=== PATIENT | male | born 1955 | race Hispanic/Latino ===

== ENCOUNTER 2018-10-05 11:48 | Emergency (ER) | payer BC, SELFPAY ==
[2018-10-05 13:26] LABS: Absolute Lymphocytes (CBC) 1.9 K/uL (0.7-4.9); Absolute Monocytes 0.8 K/uL (0.1-1.3); Absolute Neutrophil 6.3 K/uL (1.8-8.0); Basophils % 0.6 % (0-1.3); Eosinophils % 1.1 % (0-4.4); Hematocrit 43.4 % (39.6-49.0); Lymphocytes % 20.7 % (15.3-44.8); MCH 31.9 pg (27.0-35.0); MCV 93.5 fL (80-100); MPV 10.8 fL (7.6-11.3); Monocytes % 8.7 % (3.3-12.3); RBC Red Blood Cell Count 4.64 M/uL (4.33-5.43)
[2018-10-05 13:27] LABS: Protime INR 1.09
[2018-10-05] MEDS ORDERED: ASPIRIN 81 MG CHEWABLE TABLET ONE (13:33)
[2018-10-05] MEDS ORDERED: NITROGLYCERIN 0.4 MG/TAB SL ONE (13:34)
[2018-10-05 13:41] LABS: ALT/SGPT 29 U/L (12-78); AST/SGOT 14 U/L (15-37); Alkaline Phosphatase 82 U/L (45-117); BUN Blood Urea Nitrogen 13 mg/dL (7-18); Bicarbonate 25 mmol/L (21-32); Bilirubin Direct 0.1 mg/dL (0-0.2); Bilirubin Total 0.4 mg/dL (0.2-1.0); Glucose Level 119 mg/dL (74-106); Magnesium 2.2 mg/dL (1.8-2.4); NT PRO-BNP 11 pg/mL (<125); Protein, Total 7.2 g/dL (6.4-8.2); Sodium Level 139 mmol/L (136-145); Troponin (Emerg Dept Use Only) < 0.02 ng/mL (0.0-0.045)
--- NOTE | 2018-10-05 13:57 | RAD REPORT ---
EXAM DESCRIPTION: Daisy Single View10/05/2018 1:43 pm CLINICAL HISTORY: Chest pain COMPARISON: 2011 FINDINGS: The lungs appear clear of acute infiltrate. The heart is normal size IMPRESSION: No acute abnormalities displayed. If patient's symptoms persist PA and lateral chest se carmencita would be recommended
--- NOTE | 2018-10-05 14:14 | EKG ---
Test Date: 2018-10-05 Test Time: 11:57:56 Launderer Hand: FIORDALIZA MEASUREMENT RESULTS: Intervals: Rate: 94 VA: 150 QRSD: 90 QT: 344 QTc: 430 [place]: P: 38 VA: 150 QRS: 19 T: 14 INTERPRETIVE STATEMENTS: Normal sinus rhythm Normal ECG Compared to ECG 02/16/2011 11:51:46 No significant changes Electronically Signed On 10-05-18 14:13:25 FINANCIAL INVESTIGATOR by Charly Coy
--- NOTE | 2018-10-05 15:13 | RAD REPORT ---
EXAM DESCRIPTION: CT - Chest Angio - 10/05/2018 3:07 pm CLINICAL HISTORY: Chest pain. radiating to back;Chest pain COMPARISON: Chest Single View dated 10/05/2018; RAD CHEST PA AND LAT (2 VIEWS) dated 12/27/2013 TECHNIQUE: CT angiogram of the pulmonary arteries was performed with MIP. All CT scans are performed using dose optimization technique as appropriate and may include automated exposure control or mA/KV adjustment according to patient size. FINDINGS: No evidence of pulmonary thromboembolism. No acute aortic finding demonstrated. Mild COPD is seen with mild dependent interstitial pulmonary edema. No significant pericardial or pleural fluid. Mild thickening of the distal esophagus is present. No concerning bony finding. IMPRESSION: No evidence of pulmonary thromboembolism. Mild dependent interstitial pulmonary edema. Mild thickening of the esophagus is present which can be seen in esophagitis.
[2018-10-05] MEDS ORDERED: LIDOCAINE VISCOUS 2% SOLN 15 ML UDC ONE (16:42)
[2018-10-05] MEDS ORDERED: MAGNE/ALUM HYDROXD 30 ML UCUP ONE (16:42)
[2018-10-05] MEDS ORDERED: PANTOPRAZOLE 40 MG INJ ONE (16:42)
--- NOTE | 2018-10-05 17:22 | EDPHYS ---
Physician Documentation [facility] Name: John Moreno Age: 63 yrs Sex: Male : 1955 Arrival Date: 10/05/2018 Time: 11:52 Bed 27 Private MD: Rj Henry ED Physician Cooper Larios HPI: 10/05 13:05 This 63 yrs old Male presents to ER via Ambulatory with complaints of Chest cp Pain > 30 y/o. 13:05 The patient or guardian reports chest pain that is located primarily in the substernal cp area. Onset: this morning, at 04:00. The pain radiates to middle of mid to upper back. 13:05 The chest pain is described as discomfort. cp 13:05 Duration: The patient or guardian reports a single episode, that is still ongoing, but cp improving. Historical: - Allergies: 11:58 No Known Allergies; ph - PMHx: 11:58 Hyperlipidemia; Hypertension; ph - Immunization history:: Adult Immunizations up to date. - Social history:: Smoking status: Patient uses tobacco products, smokes one pack cigarettes per day. - Ebola Screening: : No symptoms or risks identified at this time. ROS: 13:10 Constitutional: Negative for body aches, chills, fever, poor PO intake. cp 13:10 Eyes: Negative for injury, pain, redness, and discharge. cp 13:10 ENT: Negative for drainage from ear(s), ear pain, sore throat, difficulty swallowing, difficulty handling secretions. 13:10 Neck: Negative for pain with movement, pain at rest, stiffness. 13:10 Cardiovascular: Positive for chest pain, Negative for edema, palpitations. 13:10 Respiratory: Negative for cough, shortness of breath, wheezing. 13:10 Abdomen/GI: Negative for abdominal pain, black/tarry stool, rectal bleeding. 13:10 Back: Positive for radiated pain, of the thoracic area, Negative for injury or acute deformity, decreased range of motion. 13:10 : Negative for urinary symptoms. 13:10 Skin: Negative for cellulitis, rash. 13:10 Neuro: Negative for altered mental status, headache, syncope, near syncope, weakness. 13:10 All other systems are negative. Exam: 12:05 ECG was reviewed by the Attending Physician. cp 13:15 Constitutional: The patient appears in no acute distress, alert, awake, cp non-diaphoretic, non-toxic, well developed, well nourished. 13:15 Head/Face: Normocephalic, atraumatic. Eyes: Pupils equal round and reactive to light, cp extra-ocular motions intact. Lids and lashes normal. Conjunctiva and sclera are non-icteric and not injected. Cornea within normal limits. Periorbital areas with no swelling, redness, or edema. ENT: Nares patent. No nasal discharge, no septal abnormalities noted. Tympanic membranes are normal and external auditory canals are clear. Oropharynx with no redness, swelling, or masses, exudates, or evidence of obstruction, uvula midline. Mucous membranes moist. Neck: Trachea midline, no thyromegaly or masses palpated, and no cervical lymphadenopathy. Supple, full range of motion without nuchal rigidity, or vertebral point tenderness. No Meningismus. Chest/axilla: Normal chest wall appearance and motion. Nontender with no deformity. No lesions are appreciated. 13:15 Cardiovascular: Rate: normal, Rhythm: regular, Pulses: Pulses are 2+ in right radial artery and left radial artery. Edema: is not appreciated, JVD: is not appreciated. 13:15 Respiratory: the patient does not display signs of respiratory distress, Respirations: normal, no use of accessory muscles, no retractions, no splinting, no tachypnea, labored breathing, is not present, Breath sounds: are clear throughout, no decreased breath sounds, no stridor, no wheezing. 13:15 Abdomen/GI: Inspection: abdomen appears normal, Bowel sounds: active, all quadrants, Palpation: abdomen is soft and non-tender, in all quadrants. 13:15 Back: pain, that is mild, of the left scapular area, right scapular area and thoracic area, ROM is normal. 13:15 Skin: cellulitis, is not appreciated, no rash present. Vital Signs: 11:59 BP 150 / 78; Pulse 93; Resp 18; Temp 98.3; Pulse Ox 98% on R/A; Weight 86.18 kg; Height ph 5 ft. 5 in. (165.10 cm); Pain 2/10; 13:31 BP 126 / 72 LA Sitting; Pulse 84; kr2 13:31 BP 146 / 72 RA Sitting; Pulse 85; kr2 14:31 BP 126 / 72; Pulse 75; Resp 15; Pulse Ox 96% on R/A; kr2 15:30 BP 153 / 86; Pulse 81; Resp 16; Pulse Ox 98% ; kr2 16:30 BP 131 / 74; Pulse 74; Resp 14; Pulse Ox 98% on R/A; kr2 18:30 BP 140 / 80; Pulse 78; Resp 18; Pulse Ox 99% on R/A; kr2 19:45 BP 136 / 78; Pulse 79; Resp 17; Pulse Ox 99% on R/A; kr2 11:59 Body Mass Index 31.62 (86.18 kg, 165.10 cm) ph MDM: 12:51 Patient medically screened. cp 17:30 The patient was given aspirin in the Emergency Department. cp 17:30 Counseling: I had a detailed discussion with the patient and/or guardian regarding: the cp historical points, exam findings, and any diagnostic results supporting the discharge/admit diagnosis, lab results, radiology results, the need for further work-up and treatment in the hospital. Physician consultation: Jose Sexton DO was contacted at 17:30, regarding admission, to the telemetry unit. patient's condition, and will see patient in ED, shortly. 17:55 Response to treatment: the patient's symptoms have markedly improved after treatment, cp Patient evaluated in ED by DR Sexton who is familiar with patient from private practice and requests repeat EKG and troponin level. If repeat testing returns negative, DR Sexton feels patient can have outpatient f/u. 19:13 Data reviewed: vital signs, nurses notes, lab test result(s), EKG. snw 19:14 ED course: awaiting repeat enzymes as pt is not inclined to be admitted. snw 10/05 13:00 Order name: Basic Metabolic Panel cp 10/05 13:00 Order name: CBC with Diff cp 10/05 13:00 Order name: LFT's cp 10/05 13:00 Order name: Magnesium cp 10/05 13:00 Order name: NT PRO-BNP cp 10/05 13:00 Order name: PT-INR cp 10/05 13:00 Order name: Troponin (emerg Dept Use Only) cp 10/05 13:32 Order name: CBC with Automated Diff; Complete Time: 14:48 EDMS 10/05 13:32 Order name: Protime (+INR); Complete Time: 14:48 EDMS 10/05 13:41 Order name: Basic Metabolic Panel; Complete Time: 14:48 EDMS 10/05 13:41 Order name: Liver (Hepatic) Function; Complete Time: 14:48 EDMS 10/05 13:41 Order name: Troponin (Emerg Dept Use Only); Complete Time: 14:48 EDMS 10/05 13:41 Order name: NT PRO-BNP; Complete Time: 14:48 EDMS 10/05 13:41 Order name: Magnesium; Complete Time: 14:48 EDMS 10/05 13:00 Order name: XRAY Chest (1 view) 10/05 13:00 Order name: EKG; Complete Time: 13:01 10/05 13:00 Order name: Cardiac monitoring; Complete Time: 13:58 cp 10/05 13:00 Order name: EKG - Nurse/Tech; Complete Time: 13:33 10/05 13:00 Order name: IV Saline Lock; Complete Time: 13:33 10/05 13:00 Order name: Labs collected and sent; Complete Time: 13:33 10/05 13:57 Order name: RAD; Complete Time: 14:48 EDMS 10/05 14:50 Order name: CT Chest Angio 10/05 15:14 Order name: CT; Complete Time: 16:15 EDNE 10/05 17:50 Order name: EKG; Complete Time: 17:51 cp 10/05 17:50 Order name: Troponin I 10/05 19:34 Order name: Troponin I; Complete Time: 19:36 EDNE 10/05 13:00 Order name: O2 Per Protocol; Complete Time: 13:33 cp 10/05 13:00 Order name: O2 Sat Monitoring; Complete Time: 13:34 cp 10/05 13:00 Order name: Blood Pressure Recheck: bilateral upper extremities; Complete Time: 13:33 cp 10/05 13:00 Order name: Misc. Order: bed rest; Complete Time: 13:33 10/05 17:50 Order name: EKG - Nurse/Tech; Complete Time: 19:01 cp EC:05 Rate is 94 beats/min. Rhythm is regular. RI interval is normal. QRS interval is normal. cp QT interval is normal. No ST changes noted. Interpreted by me. Reviewed by me. Administered Medications: 13:33 Drug: Aspirin Chewable Tablet 324 mg Route: PO; kr2 13:33 Not Given (Patient Refused): Nitroglycerin 0.4 mg Sublingual once kr2 16:40 Drug: ProTONIX 40 mg Route: IVP; Site: right antecubital; kr2 16:40 Drug: GI Cocktail without - (Maalox Suspension 30 ml, Lidocaine Liquid 2 % 15 kr2 ml) Route: PO; Disposition: 10/05/18 19:37 Discharged to Home. Impression: Chest pain, unspecified. - Condition is Stable. - Discharge Instructions: Nonspecific Chest Pain, Aspirin and Your Heart, Fat and Cholesterol Restricted Diet, [id number]. - Medication Reconciliation Form, Thank You Letter, Antibiotic Education, Prescription Opioid Use form. - Follow up: Rj Henry MD; When: 2 - 3 days; Reason: Recheck today's complaints, Continuance of care, Re-evaluation by your physician. Follow up: Emergency Department; When: As needed; Reason: Worsening of condition. Addendum: 10/07/2018 09:18 Co-signature as Attending Physician, Cooper Larios MD I agree with the assessment and k dr plan of care. Signatures: Dispatcher [employer] EDMS Cooper Larios MD MD [facility] Annette Smith FNP-C FNP-Susan Jarquin RN RN Chapo Almanzar PA PA Kaylyn Barba RN RN kr2 Corrections: (The following items were deleted from the chart) 10/05 19:37 17:21 Hospitalization Ordered by Jose Sexton DO for Observation. Preliminary snw diagnosis is Chest pain, unspecified. Bed requested for Telemetry/MedSurg (observation). Status is Observation. Condition is Stable. Problem is new. Symptoms have improved. UTI on Admission? No. cp 19:59 19:37 10/05/2018 19:37 Discharged to Home. Impression: Chest pain, unspecified. kr2 Condition is Stable. Forms are Medication Reconciliation Form, Thank You Letter, Antibiotic Education, Prescription Opioid Use. Follow up: Rj Henry; When: 2 - 3 days; Reason: Recheck today's complaints, Continuance of care, Re-evaluation by your physician. Follow up: Emergency Department; When: As needed; Reason: Worsening of condition. snw
--- NOTE | 2018-10-05 17:22 | ER ---
Nurse's Notes [facility] Name: John Moreno Age: 63 yrs Sex: Male : 1955 Arrival Date: 10/05/2018 Time: 11:52 Bed 27 Private MD: Rj Henry Diagnosis: Chest pain, unspecified Presentation: 10/05 11:58 Presenting complaint: Patient states: Chest pain that radiates to back that began at ph 0400 this morning, denies N/V or SOB, describes pain as "discomfort" rated 2/10. Transition of care: patient was not received from another setting of care. Onset of symptoms was October 05, 2018. Risk Assessment: Do you want to hurt yourself or someone else? Patient reports no desire to harm self or others. 11:58 Method Of Arrival: Ambulatory 11:58 Acuity: JEFFRY 3 ph 13:00 Initial Sepsis Screen: Does the patient meet any 2 criteria? No. Patient's initial kr2 sepsis screen is negative. Does the patient have a suspected source of infection? No. Patient's initial sepsis screen is negative. Care prior to arrival: None. Triage Assessment: 12:03 General: Appears in no apparent distress. uncomfortable, well groomed, Behavior is ph calm, cooperative, appropriate for age. Pain: Complains of pain in mid-sternal area Pain radiates to back Pain currently is 2 out of 10 on a pain scale. Neuro: Level of Consciousness is awake, alert, obeys commands, Oriented to person, place, time, situation. Cardiovascular: Reports chest pain, Denies lightheadedness, nausea, shortness of breath, Rhythm is sinus rhythm. Respiratory: Airway is patent Respiratory effort is even, unlabored. Historical: - Allergies: 11:58 No Known Allergies; ph - PMHx: 11:58 Hyperlipidemia; Hypertension; ph - Immunization history:: Adult Immunizations up to date. - Social history:: Smoking status: Patient uses tobacco products, smokes one pack cigarettes per day. - Ebola Screening: : No symptoms or risks identified at this time. Screenin:00 Abuse screen: Denies threats or abuse. Denies injuries from another. Nutritional kr2 screening: No deficits noted. Tuberculosis screening: No symptoms or risk factors identified. Fall Risk None identified. Assessment: 13:00 General: Appears in no apparent distress. uncomfortable, well groomed, well developed, kr2 well nourished, Behavior is calm, cooperative, appropriate for age. Pain: Complains of pain in chest and mid-sternal area Pain radiates to back Pain currently is 3 out of 10 on a pain scale. Quality of pain is described as pressure, squeezing, Pain began gradually, Is continuous, Alleviated by rest. Neuro: Level of Consciousness is awake, alert, obeys commands, Oriented to person, place, time, situation, Appropriate for age. Cardiovascular: Denies vomiting, Capillary refill < 3 seconds in bilateral fingers Patient's skin is warm and dry. Rhythm is regular. Respiratory: Airway is patent Respiratory effort is even, unlabored, Respiratory pattern is regular, symmetrical. GI: Abdomen is round non-distended. EENT: Oral mucosa is moist. Derm: Skin is intact, is healthy with good turgor, Skin is pink, warm \\T\\ dry. Musculoskeletal: Circulation, motion, and sensation intact. 13:15 Reassessment: Patient refused Nitroglycerin, provider notified. kr2 14:10 Reassessment: Patient appears in no apparent distress at this time. Patient and/or kr2 family updated on plan of care and expected duration. Pain level reassessed. Patient is alert, oriented x 3, equal unlabored respirations, skin warm/dry/pink. Patient states feeling better. 15:00 Reassessment: Patient appears in no apparent distress at this time. Patient and/or kr2 family updated on plan of care and expected duration. Pain level reassessed. Patient is alert, oriented x 3, equal unlabored respirations, skin warm/dry/pink. Patient states feeling better. 16:00 Reassessment: Patient appears in no apparent distress at this time. Patient and/or kr2 family updated on plan of care and expected duration. Pain level reassessed. Patient is alert, oriented x 3, equal unlabored respirations, skin warm/dry/pink. 17:00 Reassessment: Patient appears in no apparent distress at this time. Patient and/or kr2 family updated on plan of care and expected duration. Pain level reassessed. Patient is alert, oriented x 3, equal unlabored respirations, skin warm/dry/pink. Patient denies pain at this time. Patient states feeling better. 18:00 Reassessment: Patient appears in no apparent distress at this time. Patient and/or kr2 family updated on plan of care and expected duration. Pain level reassessed. Patient is alert, oriented x 3, equal unlabored respirations, skin warm/dry/pink. Patient denies pain at this time. Patient states feeling better. 19:15 Reassessment: Patient appears in no apparent distress at this time. Patient and/or kr2 family updated on plan of care and expected duration. Pain level reassessed. Patient is alert, oriented x 3, equal unlabored respirations, skin warm/dry/pink. Patient denies pain at this time. Patient states feeling better. Vital Signs: 11:59 BP 150 / 78; Pulse 93; Resp 18; Temp 98.3; Pulse Ox 98% on R/A; Weight 86.18 kg; Height ph 5 ft. 5 in. (165.10 cm); Pain 2/10; 13:31 BP 126 / 72 LA Sitting; Pulse 84; kr2 13:31 BP 146 / 72 RA Sitting; Pulse 85; kr2 14:31 BP 126 / 72; Pulse 75; Resp 15; Pulse Ox 96% on R/A; kr2 15:30 BP 153 / 86; Pulse 81; Resp 16; Pulse Ox 98% ; kr2 16:30 BP 131 / 74; Pulse 74; Resp 14; Pulse Ox 98% on R/A; kr2 18:30 BP 140 / 80; Pulse 78; Resp 18; Pulse Ox 99% on R/A; kr2 19:45 BP 136 / 78; Pulse 79; Resp 17; Pulse Ox 99% on R/A; kr2 11:59 Body Mass Index 31.62 (86.18 kg, 165.10 cm) ph ED Course: 11:52 Patient arrived in ED. sb2 11:52 Rj Henry MD is Private Physician. sb2 11:59 Triage completed. ph 12:00 Arm band placed on. Patient placed in waiting room, in view of staff members, Patient ph notified of wait time. EKG completed in triage. Results shown to MD. 12:51 Chapo Almanzar PA is PHCP. cp 12:51 Cooper Larios MD is Attending Physician. cp 13:00 Patient has correct armband on for positive identification. Bed in low position. Call kr2 light in reach. Side rails up X 1. Adult w/ patient. monitor car operator on. Pulse ox on. NIBP on. Door closed. Noise minimized. Head of bed elevated. 13:10 Inserted saline lock: 20 gauge in right antecubital area, using aseptic technique. kr2 Blood collected. Patient maintains SpO2 saturation greater than 95% on room air. 17:20 Jose Sexton DO is Hospitalizing Provider. cp 18:51 Kaylyn Hoang, RN is Primary Nurse. kr2 19:01 EKG done, by ED staff, reviewed by Cooper Larios MD. kr2 19:37 Rj Henry MD is Referral Physician. snw 19:45 No provider procedures requiring assistance completed. IV discontinued, intact, kr2 bleeding controlled, No redness/swelling at site. Pressure dressing applied. Administered Medications: 13:33 Drug: Aspirin Chewable Tablet 324 mg Route: PO; kr2 13:33 Not Given (Patient Refused): Nitroglycerin 0.4 mg Sublingual once kr2 16:40 Drug: ProTONIX 40 mg Route: IVP; Site: right antecubital; kr2 16:40 Drug: GI Cocktail without - (Maalox Suspension 30 ml, Lidocaine Liquid 2 % 15 kr2 ml) Route: PO; Outcome: 17:21 Decision to Hospitalize by Provider. cp 19:37 Discharge ordered by . snw 19:45 Discharged to home ambulatory, with family. kr2 19:45 Condition: stable 19:45 Discharge instructions given to patient, family, Instructed on discharge instructions, follow up and referral plans. Demonstrated understanding of instructions, follow-up care. 19:59 Patient left the ED. kr2 Signatures: Annette Smith, LISA-C MOHS SURGEON-CsnSusan Mello, RN RN ph Chapo Almanzar PA PA cp Kaylyn Hoang, RN RN kr2 Sherri Johnson2
--- NOTE | 2018-10-05 18:40 | P.CNS ---
Date of Consult: 10/05/18 Reason for Consult: ER evaluation Requesting Physician: Chapo Almanzar Primary Care Provider: Dr. Tovar Chief Complaint: Epigastric, sternal pain History of Present Illness: 63-year-old male presented emergency room with epigastric, sternal pain. The patient reports epigastric sternal pain that started about 5:00 a.m. this morning. This occurred whenever he woke up. The pain radiated to the back. He denied any significant nausea, vomiting, shortness of breath. He did report increased burping at that time. Patient with history of hypertension, hyperlipidemia, GERD, tobacco abuse and alcohol use. The patient came to the ER for further evaluation. In the ER patient evaluated. Initial EKG showed no significant EKG changes. CBC unremarkable. BMP unremarkable. Troponin within normal range. Chest x- ray unremarkable. CT chest showed no evidence of pulmonary embolism. Mild dependent interstitial pulmonary edema noted. Mild thickening of the esophagus was present likely esophagitis. I was consulted for possible admission. When I saw the patient in the ER, he appeared comfortable. He desired to go home. He does report that he smokes about 1 pack per date. He drinks occasionally. He has a poor diet including increased acidic products. Patient has seen GI in the past. He is taking Prilosec. He does report increased heartburn and burping. Allergies No Known Allergies Allergy (Verified 08/27/12 10:55) Home medications list reviewed: Yes - Past Medical/Surgical History -: Hypertension -: Hyperlipidemia -: GERD -: Anxiety -: Tobacco abuse -: Alcohol use Past Surgical History: Reviewed- Non-Contributory Psychosocial/ Personal History: Patient is - Family History Mother Family History: Reviewed- Non-Contributory - Social History Smoking Status: Heavy Tobacco smoker (>10 cigarettes/day) Counseled patient to stop smoking for: less than 10 minutes Smoking therapy provided: Yes Patient receptive to therapy: Yes Alcohol use: Yes CD- Drugs: No Caffeine use: Yes Place of Residence: Home Review of Systems General: As per HPI Eyes: Unremarkable ENT: Unremarkable Respiratory: Unremarkable Cardiovascular: As per HPI Gastrointestinal: As per HPI Genitourinary: Unremarkable Musculoskeletal: Unremarkable Integumentary: Unremarkable Neurological: Unremarkable Lymphatics: Unremarkable Physical Examination General: Alert, In no apparent distress, Oriented x3, Cooperative HEENT: Atraumatic, Normocephalic, PERRLA, Mucous membr. moist/pink Neck: Supple, No Thyromegaly Respiratory: Clear to auscultation bilaterally, Normal air movement Cardiovascular: Normal pulses, Regular rate/rhythm Gastrointestinal: Normal bowel sounds, Soft and benign, Non-distended, No ascites, No tenderness, No masses, No rebound, No guarding Musculoskeletal: No contractures, No erythema, No tenderness, No warmth Integumentary: No tenderness/swelling, No erythema, No warmth, No cyanosis Neurological: Normal speech, Normal strength at 5/5 x4 extr, Normal tone, Normal affect Laboratory Data (last 24 hrs) 10/05/18 13:10: PT 12.9 H, INR 1.09 10/05/18 13:10: WBC 9.2, Hgb 14.8, Hct 43.4, Plt Count 188 10/05/18 13:10: Sodium 139, Potassium 4.0, BUN 13, Creatinine 1.10, Glucose 119 H, Magnesium 2.2, Total Bilirubin 0.4, AST 14 L, ALT 29, Alkaline Phosphatase 82 Conclusions/Impression: Impression: Epigastric, sternal pain with noted evidence of esophagitis on CT scan likely underlying GERD Hypertension Hyperlipidemia Tobacco abuse Alcohol use Anxiety Plan: Patient seen and evaluated. Patient desires to be discharged from the emergency room and follow up as an outpatient. Will recheck troponin. If negative then the patient can be discharged home. Will recommend to discontinue Prilosec. Will recommend to continue with Protonix 40 mg 1 pill once daily. Patient will need to follow up with GI as an outpatient to further evaluate. He has seen GI in the past. Patient will likely require EGD to further assess. Dietary changes for GERD/reflux addressed in detail. Patient will need to refrain from alcohol and tobacco is well. I will also recommend that he follow up with cardiology within the next week. Patient should have cardiac workup as an outpatient. Patient may continue with his medication for hypertension, hyperlipidemia and anxiety. Case discussed in detail with ER provider. ER provider will recheck troponin. If negative will continue as above. Time Spent Managing Pts care (In Minutes): 55
[2018-10-05 20:19] VITALS: TEMP 98.3
[2018-10-05 20:24] VITALS: O2SAT 98
[2018-10-05 20:25] VITALS: BP 131/74
[2018-10-05] MEDS ORDERED: MORPHINE 4 MG/ML SYR IV PRN (21:15)
[2018-10-05] MEDS ORDERED: ACETAMINOPHEN 500 MG TAB PO PRN (21:15)
--- NOTE | 2018-10-06 08:28 | EKG ---
Test Date: 2018-10-05 Test Time: 18:58:26 Perianesthesia Rn: COLEEN MEASUREMENT RESULTS: Intervals: Rate: 72 OK: 166 QRSD: 98 QT: 378 QTc: 413 [place]: P: 38 OK: 166 QRS: 39 T: 26 INTERPRETIVE STATEMENTS: Normal sinus rhythm Normal ECG Compared to ECG 10/05/2018 11:57:56 No significant changes Electronically Signed On 10-06-18 08:28:10 STRING STUDIES DIRECTOR by Charly Coy
[2018-10-06] MEDS ORDERED: ASPIRIN EC 81 MG TAB PO SCH (09:00)
[2018-10-06] MEDS ORDERED: ENOXAPARIN 40 MG/0.4 ML SQ SCH (09:00)
[2018-10-06] MEDS ORDERED: METOPROLOL TAR 50 MG TAB PO SCH (09:00)
== END 2018-10-05 19:59 | disposition home or self-care (01) ==
LOC: ER 11:48 → ERHOLD 17:30 → UNDOADMOB 17:30
DX: R07.9 Chest pain, unspecified (principal); I10 Essential (primary) hypertension; F17.210 Nicotine dependence, cigarettes, uncomplicated
CPT/HCPCS: 36415; 71045; 71275; 80048; 80076; 83735; 83880; 84484; 85025; 85610; 93005; 96374; 99285; C9113; Q9967

== ENCOUNTER 2018-12-28 12:16 | Emergency (ER) | payer OTHER, SELFPAY ==
[2018-12-28 14:06] LABS: Absolute Lymphocytes (CBC) 1.4 K/uL (0.7-4.9); Absolute Neutrophil 3.5 K/uL (1.8-8.0); Basophils % 0.5 % (0-1.3); Eosinophils % 0.4 % (0-4.4); Hematocrit 47.8 % (39.6-49.0); MPV 10.3 fL (7.6-11.3); Monocytes % 13.2 % (3.3-12.3); RBC Red Blood Cell Count 5.15 M/uL (4.33-5.43)
[2018-12-28 14:07] LABS: Absolute Monocytes 0.8 K/uL (0.1-1.3)
[2018-12-28 14:29] LABS: Potassium 4.2 mmol/L (3.5-5.1)
--- NOTE | 2018-12-28 14:37 | RAD REPORT ---
EXAM DESCRIPTION: RAD - Chest Pa And Lat (2 Views) - 12/28/2018 2:16 pm CLINICAL HISTORY: Cough, fever, dyspnea COMPARISON: September 2018 TECHNIQUE: PA and lateral views of the chest were obtained. FINDINGS: The lungs are normal volume. No peripheral mass, consolidation or failure finding. Hilar r egions are similar to comparison. Patient has a baseline of chronic interstitial lung disease with th e pattern not clearly different from September 2018. Heart size is normal and central vasculature is within normal limits. No pleural effusion or pneumothorax seen. No acute bony finding noted. No a ortic abnormality. IMPRESSION: Chronic interstitial lung disease similar to September 2018. No acute findings seen.
[2018-12-28] MEDS ORDERED: ACETAMINOPHEN 500 MG TAB ONE (15:09)
[2018-12-28] MEDS ORDERED: ALBUTEROL 2.5 MG/3 ML NEB SOL ONE (15:09)
--- NOTE | 2018-12-28 15:33 | EDPHYS ---
Physician Documentation [facility] Name: John Moreno Age: 63 yrs Sex: Male : 1955 Arrival Date: 12/28/2018 Time: 12:18 Bed 15 Private MD: Rj Henry ED Physician Cooper Larios HPI: 12/28 14:46 This 63 yrs old Male presents to ER via Ambulatory with complaints of jr8 Weakness, Pain All Over. 15:28 Patient stated that for the past few days has had body aches and pain all over. Has had jr8 cough and congestion. Subjective fevers. Was seen by PCP and given allergy medicine, antibiotics, and cough medicine. Came to ED today for continued symptoms . Severity of symptoms: At their worst the symptoms were mild in the emergency department the symptoms are unchanged. It is unknown whether or not the patient has had similar symptoms in the past. The patient has been recently seen by a physician:. Historical: - Allergies: 12:31 No Known Allergies; aa5 - Home Meds: 12:31 atorvastatin 10 mg oral tab [Active]; losartan 50 mg oral tab [Active]; amlodipine 10 aa5 mg tab [Active]; omeprazole 40 mg Oral cpDR [Active]; methylprednisolone 4 mg Oral tab [Active]; cyclobenzaprine 10 mg Oral tab [Active]; indomethacin 50 mg Oral cap [Active]; cetirizine 10 mg oral tab [Active]; benzonatate 200 mg oral cap [Active]; azithromycin 250 mg oral tab [Active]; - PMHx: 12:31 Hyperlipidemia; Hypertension; aa5 - PSHx: 12:31 Hernia repair; aa5 - Immunization history:: Flu vaccine is not up to date. - Social history:: Smoking status: Patient uses tobacco products, smokes one pack cigarettes per day. - Ebola Screening: : No symptoms or risks identified at this time. ROS: 15:28 Eyes: Negative for injury, pain, redness, and discharge, ENT: Negative for injury, jr8 pain, and discharge, Neck: Negative for injury, pain, and swelling, Cardiovascular: Negative for chest pain, palpitations, and edema, Abdomen/GI: Negative for abdominal pain, nausea, vomiting, diarrhea, and constipation, Back: Negative for injury and pain, MS/Extremity: Negative for injury and deformity, Skin: Negative for injury, rash, and discoloration, Neuro: Negative for headache, weakness, numbness, tingling, and seizure. 15:28 Constitutional: Positive for body aches, chills, fever, malaise. 15:28 Respiratory: Positive for cough, Negative for shortness of breath, sputum production, wheezing. Exam: 15:28 Eyes: Pupils equal round and reactive to light, extra-ocular motions intact. Lids and jr8 lashes normal. Conjunctiva and sclera are non-icteric and not injected. Cornea within normal limits. Periorbital areas with no swelling, redness, or edema. ENT: Nares patent. No nasal discharge, no septal abnormalities noted. Tympanic membranes are normal and external auditory canals are clear. Oropharynx with no redness, swelling, or masses, exudates, or evidence of obstruction, uvula midline. Mucous membranes moist. Neck: Trachea midline, no thyromegaly or masses palpated, and no cervical lymphadenopathy. Supple, full range of motion without nuchal rigidity, or vertebral point tenderness. No Meningismus. Cardiovascular: Regular rate and rhythm with a normal S1 and S2. No gallops, murmurs, or rubs. Normal PMI, no JVD. No pulse deficits. Abdomen/GI: Soft, non-tender, with normal bowel sounds. No distension or tympany. No guarding or rebound. No evidence of tenderness throughout. Back: No spinal tenderness. No costovertebral tenderness. Full range of motion. Skin: Warm, dry with normal turgor. Normal color with no rashes, no lesions, and no evidence of cellulitis. MS/ Extremity: Pulses equal, no cyanosis. Neurovascular intact. Full, normal range of motion. Neuro: Awake and alert, GCS 15, oriented to person, place, time, and situation. Cranial nerves II-XII grossly intact. Motor strength 5/5 in all extremities. Sensory grossly intact. Cerebellar exam normal. Normal gait. 15:28 Respiratory: the patient does not display signs of respiratory distress, Respirations: normal, symetrical, no use of accessory muscles, no grunting, no evidence of nasal flaring, no prolonged exhalations, no pursed lip breathing, no retractions, no shallow respirations, no splinting, no tachypnea, Breath sounds: wheezing: expiratory that is moderate, is heard in the right posterior middle lobe and right posterior lower lobe. Vital Signs: 12:32 BP 146 / 88; Pulse 118; Resp 18 S; Temp 98.0(O); Pulse Ox 98% on R/A; Weight 83.91 kg aa5 (R); Height 5 ft. 4 in. (162.56 cm) (R); Pain 8/10; 13:30 BP 138 / 69; Pulse 95; Resp 18; Pulse Ox 98% on R/A; em 14:30 BP 130 / 80; Pulse 96; Resp 18; Pulse Ox 98% on R/A; em 15:40 BP 129 / 75; Pulse 88; Resp 16; Pulse Ox 100% on R/A; em 12:32 Body Mass Index 31.75 (83.91 kg, 162.56 cm) aa5 MDM: 13:35 Patient medically screened. [facility] 15:28 Data reviewed: vital signs, nurses notes, lab test result(s), EKG, radiologic studies, jr plain films. Data interpreted: Pulse oximetry: on room air is 98 %. Interpretation: normal. Counseling: I had a detailed discussion with the patient and/or guardian regarding: the historical points, exam findings, and any diagnostic results supporting the discharge/admit diagnosis, lab results, radiology results, the need for outpatient follow up, a family practitioner, to return to the emergency department if symptoms worsen or persist or if there are any questions or concerns that arise at home. 15:28 ED course: Patient already on antibiotics. Recently finished medrol dose pack as well. jr8 Will add inhaler for wheezing. No acute blood or image findings. 12/28 13:36 Order name: CBC with Diff [facility] 12/28 13:36 Order name: Basic Metabolic Panel [facility] 12/28 13:36 Order name: Influenza Screen (a \T\ B) [facility] 12/28 13:36 Order name: Blood Culture Adult (2) [facility] 12/28 14:17 Order name: CBC with Automated Diff; Complete Time: 14:26 EDMN 12/28 14:17 Order name: Influenza Screen (A ; Complete Time: 14:26 EDMS 12/28 13:36 Order name: IV; Complete Time: 13:45 [facility] 12/28 13:36 Order name: XRAY Chest Pa And Lat (2 Views) [facility] 12/28 13:38 Order name: EKG - Nurse/Tech; Complete Time: 14:26 jr8 12/28 13:38 Order name: EKG; Complete Time: 13:39 jr8 12/28 14:29 Order name: Basic Metabolic Panel; Complete Time: 14:39 EDMS 12/28 14:38 Order name: RAD; Complete Time: 14:39 EDMS Administered Medications: 15:03 Drug: Albuterol 2.5 mg Route: Inhalation; em 15:41 Follow up: Response: No adverse reaction em 15:03 Drug: Tylenol 1000 mg Route: PO; em 15:41 Follow up: Response: No adverse reaction em Disposition: 12/28/18 15:32 Discharged to Home. Impression: Acute bronchitis. - Condition is Stable. - Discharge Instructions: Acute Bronchitis, Adult. - Prescriptions for Albuterol Sulfate 90 mcg/actuation - inhale 1-2 puff by INHALATION route every 4-6 hours; 1 Inhaler. - Medication Reconciliation Form, Thank You Letter, Antibiotic Education, Prescription Opioid Use form. - Follow up: Rj Henry MD; When: 2 - 3 days; Reason: Recheck today's complaints, Continuance of care, Re-evaluation by your physician. - Problem is new. - Symptoms have improved. Addendum: 12/31/2018 07:14 Co-signature as Attending Physician, Cooper Larios MD I agree with the assessment and k dr plan of care. Signatures: Dispatcher [employer] [facility] Cooper Larios MD MD [facility] Juan J Aly, [employer] Adelita Dorado RN RN aa5 Derrick Srinivasan PA PA jr8 Corrections: (The following items were deleted from the chart) 12/28 16:02 15:32 12/28/2018 15:32 Discharged to Home. Impression: Acute bronchitis. Condition is em Stable. Forms are Medication Reconciliation Form, Thank You Letter, Antibiotic Education, Prescription Opioid Use. Follow up: Rj Henry; When: 2 - 3 days; Reason: Recheck today's complaints, Continuance of care, Re-evaluation by your physician. Problem is new. Symptoms have improved. jr8
--- NOTE | 2018-12-28 15:33 | ER ---
Nurse's Notes [facility] Name: John Moreno Age: 63 yrs Sex: Male : 1955 Arrival Date: 12/28/2018 Time: 12:18 Bed 15 Private MD: Rj Henry Diagnosis: Acute bronchitis Presentation: 12/28 12:28 Presenting complaint: Patient states: body aches, generalized weakness, productive aa5 cough that began Naresh. Pt also reports pain to RLQ. Pt reports he started taking azithromycin yesterday. Transition of care: patient was not received from another setting of care. 12:28 Method Of Arrival: Ambulatory aa5 12:28 Acuity: JEFFRY 3 aa5 12:28 Onset of symptoms was December 2018. Risk Assessment: Do you want to hurt yourself or aa5 someone else? Patient reports no desire to harm self or others. Care prior to arrival: None. 13:02 Initial Sepsis Screen: Does the patient meet any 2 criteria? HR > 90 bpm. Does the em patient have a suspected source of infection? Yes: Productive cough/pneumonia. Historical: - Allergies: 12:31 No Known Allergies; aa5 - Home Meds: 12:31 atorvastatin 10 mg oral tab [Active]; losartan 50 mg oral tab [Active]; amlodipine 10 aa5 mg tab [Active]; omeprazole 40 mg Oral cpDR [Active]; methylprednisolone 4 mg Oral tab [Active]; cyclobenzaprine 10 mg Oral tab [Active]; indomethacin 50 mg Oral cap [Active]; cetirizine 10 mg oral tab [Active]; benzonatate 200 mg oral cap [Active]; azithromycin 250 mg oral tab [Active]; - PMHx: 12:31 Hyperlipidemia; Hypertension; aa5 - PSHx: 12:31 Hernia repair; aa5 - Immunization history:: Flu vaccine is not up to date. - Social history:: Smoking status: Patient uses tobacco products, smokes one pack cigarettes per day. - Ebola Screening: : No symptoms or risks identified at this time. Screenin:02 Abuse screen: Denies threats or abuse. Nutritional screening: No deficits noted. em Tuberculosis screening: No symptoms or risk factors identified. Fall Risk None identified. Assessment: 13:02 General: Appears in no apparent distress. uncomfortable, Behavior is calm, cooperative, em Reports feeling ill for > 3 days, Denies fever. Pain: Complains of pain in "all over" Pain currently is 8 out of 10 on a pain scale. Quality of pain is described as aching, Pain began 4 days ago. Neuro: Level of Consciousness is awake, alert, obeys commands, Oriented to. Cardiovascular: Capillary refill < 3 seconds Patient's skin is warm and dry. Respiratory: Airway is patent Respiratory effort is even, unlabored, Breath sounds with wheezes in left posterior lower lobe. GI: Abdomen is round non-distended, Patient currently denies nausea, vomiting. Derm: Skin is intact, is healthy with good turgor, Skin is pink, warm \\T\\ dry. Musculoskeletal: Range of motion: intact in all extremities. 13:10 General: The previous assessment is accurate, call light remains within reach. ss 14:30 Reassessment: Patient appears in no apparent distress at this time. Patient and/or em family updated on plan of care and expected duration. Pain level reassessed. Patient is alert, oriented x 3, equal unlabored respirations, skin warm/dry/pink. 15:40 Reassessment: Patient appears in no apparent distress at this time. Patient and/or em family updated on plan of care and expected duration. Pain level reassessed. Patient is alert, oriented x 3, equal unlabored respirations, skin warm/dry/pink. Vital Signs: 12:32 BP 146 / 88; Pulse 118; Resp 18 S; Temp 98.0(O); Pulse Ox 98% on R/A; Weight 83.91 kg aa5 (R); Height 5 ft. 4 in. (162.56 cm) (R); Pain 8/10; 13:30 BP 138 / 69; Pulse 95; Resp 18; Pulse Ox 98% on R/A; em 14:30 BP 130 / 80; Pulse 96; Resp 18; Pulse Ox 98% on R/A; em 15:40 BP 129 / 75; Pulse 88; Resp 16; Pulse Ox 100% on R/A; em 12:32 Body Mass Index 31.75 (83.91 kg, 162.56 cm) aa5 ED Course: 12:18 Patient arrived in ED. as 12:19 Rj Henry MD is Private Physician. as 12:27 Arm band placed on. aa5 12:28 Triage completed. aa5 12:56 Derrick Srinivasan PA is PHCP. jr8 12:56 Cooper Larios MD is Attending Physician. jr8 12:57 Juan J Aly LVN is Primary Nurse. em 13:02 Patient has correct armband on for positive identification. Bed in low position. Call em light in reach. Side rails up X2. Adult w/ patient. Pulse ox on. NIBP on. 13:56 EKG done, by automobile glass technician. reviewed by Cooper Larios MD. at1 14:10 Patient moved to radiology via wheelchair. jb2 14:14 X-ray completed. Patient tolerated procedure well. Patient moved back from radiology. jb2 15:30 Initial lab(s) drawn, by me, sent to lab. Inserted saline lock: 20 gauge in right em antecubital area, using aseptic technique. Blood collected. 15:32 Rj Henry MD is Referral Physician. jr8 15:49 No provider procedures requiring assistance completed. IV discontinued, intact, em bleeding controlled, No redness/swelling at site. Pressure dressing applied. Administered Medications: 15:03 Drug: Albuterol 2.5 mg Route: Inhalation; em 15:41 Follow up: Response: No adverse reaction em 15:03 Drug: Tylenol 1000 mg Route: PO; em 15:41 Follow up: Response: No adverse reaction em Outcome: 15:32 Discharge ordered by MD. jr8 15:49 Discharged to home ambulatory, with family. em 15:49 Condition: good 15:49 Discharge instructions given to patient, family, Instructed on discharge instructions, follow up and referral plans. medication usage, Demonstrated understanding of instructions, follow-up care, medications, Prescriptions given X 1. 16:02 Patient left the ED. em Signatures: Arnaldo Carias jb2 Juan J Aly LVN LVN em Damaris Finley as Adelita Dorado RN RN aa5 Shantelle Darby RN RN ss Derrick Srinivasan PA PA jr8 Adrianne Hewitt, tab cutter EKG Tat1 Corrections: (The following items were deleted from the chart) 12:32 12:28 Presenting complaint: Patient states: body aches, generalized weakness, aa5 productive cough that began Naresh. Pt also reports pain to RLQ. aa5
[2018-12-28 16:45] VITALS: TEMP 98
[2018-12-28 16:51] VITALS: BP 129/75; O2SAT 100
== END 2018-12-28 16:02 | disposition home or self-care (01) ==
LOC: ER 12:16
DX: J20.9 Acute bronchitis, unspecified (principal); I10 Essential (primary) hypertension; E78.5 Hyperlipidemia, unspecified; F17.210 Nicotine dependence, cigarettes, uncomplicated
CPT/HCPCS: 36415; 71046; 80048; 85025; 87040; 87804; 93005; 99285

== ENCOUNTER 2019-03-02 16:14 | Emergency (ER) | payer OTHER ==
--- NOTE | 2019-03-02 16:35 | RAD REPORT ---
EXAM DESCRIPTION: CT - Ct Stroke Brain Wo Cont - 03/02/2019 4:26 pm CLINICAL HISTORY: Numbness COMPARISON: None. TECHNIQUE: Computed axial tomography of the head was obtained. Unenhanced and enhanced images obtain ed. 50 cc [id number]-[address] scans are performed using dose optimization technique as appropriate and may include automated exposure control or mA/KV adjustment according to patient size. FINDINGS: An intracranial bleed is not seen . The ventricles are normal in caliber. No extra-axial fluid collection is noted. No abnormal enhancement seen Fluid within the sinuses/ mastoids is not seen. IMPRESSION: No acute intracranial abnormality is seen. If patient's symptoms persist MRI of the bra in would be recommended. Dr. Bell notified 4:30 p.m. March 02, 2019
--- NOTE | 2019-03-02 16:40 | EDPHYS ---
Physician Documentation [facility] Name: John Moreno Age: 63 yrs Sex: Male : 1955 Arrival Date: 03/02/2019 Time: 16:14 Bed 7 Private MD: ED Physician Nemesio Bell HPI: 03/02 16:40 This 63 yrs old Male presents to ER via EMS with complaints of S/S of Possible rn Stroke. 16:40 The patient's problem is reported as a facial droop, on left, paresthesias, in left rn upper extremity, in left lower extremity, in left side of face, weakness, in the left upper extremity, in the left lower extremity, in the left side of face. Onset: The symptoms/episode began/occurred 1 hour(s) ago. Duration: The episode is continuous. The symptoms are alleviated by nothing. The symptoms are aggravated by nothing. Severity of symptoms: At their worst the symptoms were moderate in the emergency department the symptoms have improved. The patient has not experienced similar symptoms in the past. Reports sudden onset of left facial droop, left arm and leg numbness and weakness, slight improvement, but unable to walk per EMS due to left leg weakness, and symptoms have not resolved. No recent major trauma or procedure/surgery, no known hx of cerebral bleed. . Historical: - Allergies: 16:23 No Known Allergies; bp - Home Meds: 16:23 amlodipine 10 mg tab [Active]; atorvastatin 10 mg Oral tab [Active]; losartan 50 mg bp Oral tab [Active]; omeprazole 40 mg Oral cpDR [Active]; - PMHx: 16:23 Hyperlipidemia; Hypertension; bp - Immunization history:: Adult Immunizations up to date. - Social history:: Smoking status: Patient/guardian denies using tobacco. - Ebola Screening: : Patient negative for fever greater than or equal to 101.5 degrees Fahrenheit, and additional compatible Ebola Virus Disease symptoms Patient denies exposure to infectious person Patient denies travel to an Ebola-affected area in the 21 days before illness onset No symptoms or risks identified at this time. - Family history:: not pertinent. - Hospitalizations: : No recent hospitalization is reported. ROS: 16:40 Constitutional: Negative for fever, chills, and weight loss, Eyes: Negative for injury, rn pain, redness, and discharge, Neck: Negative for injury, pain, and swelling, Cardiovascular: Negative for chest pain, palpitations, and edema, Respiratory: Negative for shortness of breath, cough, wheezing, and pleuritic chest pain, Abdomen/GI: Negative for abdominal pain, nausea, vomiting, diarrhea, and constipation, MS/Extremity: Negative for injury and deformity, Skin: Negative for injury, rash, and discoloration, Neuro: negative for headache, + weakness and paresthesias Exam: 16:40 Radiologist reports: no acute findings rn 16:40 Constitutional: This is a well developed, well nourished patient who is awake, alert, appears anxious Head/Face: Normocephalic, atraumatic. Eyes: Pupils equal round and reactive to light, extra-ocular motions intact. Lids and lashes normal. Conjunctiva and sclera are non-icteric and not injected. Cornea within normal limits. Periorbital areas with no swelling, redness, or edema. ENT: MMM Cardiovascular: Tachycardic, regular, no murmur Respiratory: Lungs have equal breath sounds bilaterally, clear to auscultation and percussion. Abdomen/GI: soft, non-tender MS/ Extremity: Pulses equal, no cyanosis. Neurovascular intact. Full, normal range of motion. Equal circumference. Neuro: Awake and alert, GCS 15, oriented to person, place, time, and situation. + left lower mild facial droop, + left facial paresthesias. + LUE/LLE paresthesias without drift. Vital Signs: 16:15 BP 133 / 89; Pulse 119; Resp 18; Temp 98.6(TE); Pulse Ox 98% on R/A; Weight 84.37 kg; hj Height 5 ft. 5 in. (165.10 cm); 16:30 BP 150 / 87; Pulse 123; Resp 21; Pulse Ox 91% on R/A; bp 17:00 BP 144 / 88; Pulse 117; Resp 16; Pulse Ox 97% ; bp 17:55 BP 154 / 80; Pulse 17; Resp 16; Pulse Ox 92% ; bp 16:15 Body Mass Index 30.95 (84.37 kg, 165.10 cm) NIH Stroke Scale Scores: 16:18 NIHSS Score: 3 rn 16:26 NIHSS Score: 3 bp MDM: 16:16 Patient medically screened. 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 Code stroke activated when arrived, and if symptoms do not resolve, will plan to TPA. . 16:36 ED course: Spoke with patient and , they meet TPA criteria and consent, TPA rn ordered, also organizing transfer to [facility]. . 17:54 Differential diagnosis: CVA, TIA. Data reviewed: vital signs, nurses notes, lab test rn result(s), EKG, radiologic studies, and as a result, I will admit patient. Counseling: I had a detailed discussion with the patient and/or guardian regarding: the historical points, exam findings, and any diagnostic results supporting the discharge/admit diagnosis, lab results, radiology results, the need to transfer to another facility, for higher level of care, [facility] does not immediately have the required specialist. Response to treatment: the patient's symptoms have markedly improved after treatment, and as a result, I will admit patient. 03/02 16:18 Order name: Basic Metabolic Panel; Complete Time: 16:03/02 16:18 Order name: CBC with Diff; Complete Time: 16:03/02 16:18 Order name: Protime (+inr); Complete Time: 16:03/02 16:18 Order name: Ptt, Activated; Complete Time: :03/02 16:18 Order name: CT Stroke Brain w/o Contrast; Complete Time: 16:03/02 16:18 Order name: Stroke CXR 1 View; Complete Time: 16:59 03/02 16:18 Order name: EKG; Complete Time: 16:19 03/02 16:18 Order name: Accucheck; Complete Time: 16:03/02 16:18 Order name: Cardiac monitoring; Complete Time: 16:03/02 16:18 Order name: EKG - Nurse/Tech; Complete Time: 16:36 03/02 16:18 Order name: IV Saline Lock; Complete Time: 16:03/02 16:18 Order name: Labs collected and sent; Complete Time: 16:20 03/02 16:18 Order name: NPO; Complete Time: 16:03/02 16:18 Order name: O2 Per Protocol; Complete Time: 16:20 rn 03/02 16:18 Order name: O2 Sat Monitoring; Complete Time: 16:21 rn 03/02 16:18 Order name: Stroke Swallow Screen; Complete Time: 16:51 rn Administered Medications: 16:45 Drug: ACTIvase {Co-Signature: iw (Deepa Fontana RN).} Route: IV Thrombolytics; Rate: bp calculated rate; Infused Over: 60 mins; 17:54 Follow up: Response: Marked relief of symptoms bp 17:56 Follow up: Response: Marked relief of symptoms bp Point of Care Testing: Blood Glucose: 16:16 Blood Glucose: 107 mg/dL; hj Ranges: Critical Glucose Levels:Adult <50 mg/dl or >400 mg/dl <40 mg/dl or >180 mg/dl Disposition: 03/02/19 16:39 Transfer ordered to [facility]. Diagnosis are Weakness, Paresthesia of skin, Ischemic stroke. - Reason for transfer: Higher level of care. - Accepting physician is Dr. Bhagat. - Condition is Stable. - Problem is new. - Symptoms have improved. Critical care time excluding procedures: 17:54 Critical care time: Bedside Care: 25 minutes, Consultation: 5 minutes, Family rn Intervention: 5 minutes. Total time: 35 minutes NIH Stroke Scale - NIH Stroke Score Date: 03/02/2019 Time: 16:18 Total Score = 3 1a. Level of Consciousness (LOC) - 0(Alert) 1b. Level of Consciousness (LOC) (Year \T\ Age) - 0(Both) 1c. LOC Commands (Open \T\ Closes Eyes/Remote Encoding Operations Supervisor) - 0(Both) 2. Best Gaze (Lateral Gaze Paresis) - 0(Normal) 3. Visual Field Loss - 0(No visual loss) 4. Facial Palsy - 1(Minor Paralysis) 5a. Left Arm: Motor (10-second hold) - 0(No drift) 5b. Right Arm: Motor (10-second hold) - 0(No drift) 6a. Left Leg: Motor (5-second hold - always test supine) - 0(No drift) 6b. Right Leg: Motor (5-second hold - always test supine) - 0(No drift) 7. Limb Ataxia (finger/nose \T\ heel/faria - test with eyes open) - 0(Absent) 8. Sensory Loss (pinprick arms/legs/face) - 1(Mild to moderate loss) 9. Best Language: Aphasia (description/naming/reading) - 0(No aphasia) 10. Dysarthria (speech clarity - read or repeat words) - 1(Mild to Moderate) 11. Extinction and Inattention (visual/tactile/auditory/spatial/personal) - 0(No abnormality) Initials: kristopher NIH Stroke Scale - NIH Stroke Score Date: 03/02/2019 Time: 16:26 Total Score = 3 1a. Level of Consciousness (LOC) - 0(Alert) 1b. Level of Consciousness (LOC) (Year \T\ Age) - 0(Both) 1c. LOC Commands (Open \T\ Closes Eyes/Remote Encoding Operations Supervisor) - 0(Both) 2. Best Gaze (Lateral Gaze Paresis) - 0(Normal) 3. Visual Field Loss - 0(No visual loss) 4. Facial Palsy - 1(Minor Paralysis) 5a. Left Arm: Motor (10-second hold) - 1(Drift) 5b. Right Arm: Motor (10-second hold) - 0(No drift) 6a. Left Leg: Motor (5-second hold - always test supine) - 1(Drift) 6b. Right Leg: Motor (5-second hold - always test supine) - 0(No drift) 7. Limb Ataxia (finger/nose \T\ heel/faria - test with eyes open) - 0(Absent) 8. Sensory Loss (pinprick arms/legs/face) - 0(Normal) 9. Best Language: Aphasia (description/naming/reading) - 0(No aphasia) 10. Dysarthria (speech clarity - read or repeat words) - 0(Normal) 11. Extinction and Inattention (visual/tactile/auditory/spatial/personal) - 0(No abnormality) Initials: bp Signatures: Dispatcher [employer] EDNemesio Vides MD MD rn Peltier, Brian, RN RN bp Irene Williams RN iw Corrections: (The following items were deleted from the chart) 17:56 16:39 03/02/2019 16:39 Transfer ordered to [facility]. bp Diagnosis is Weakness; Paresthesia of skin; Ischemic stroke. Reason for transfer: Higher level of care. Accepting physician is Dr. Bhagat. Condition is Stable. Problem is new. Symptoms have improved. rn
--- NOTE | 2019-03-02 16:40 | ER ---
Nurse's Notes [facility] Name: John Moreno Age: 63 yrs Sex: Male : 1955 Arrival Date: 03/02/2019 Time: 16:14 Bed 7 Private MD: Diagnosis: Weakness;Paresthesia of skin;Ischemic stroke Presentation: 03/02 16:18 Presenting complaint: EMS states: LEFT SIDED WEAKNESS AFTER 1520. Transition of care: bp patient was not received from another setting of care. An acute neurological deficit is present. The charge nurse has been notified. The patient has been moved to a treatment area. The patients blood glucose was checked before arriving to the hospital and was found to be normal. Onset of symptoms was March 02, 2019 at 15:20. Risk Assessment: Do you want to hurt yourself or someone else? Patient reports no desire to harm self or others. Initial Sepsis Screen: Does the patient meet any 2 criteria? No. Patient's initial sepsis screen is negative. Does the patient have a suspected source of infection? No. Patient's initial sepsis screen is negative. Care prior to arrival: IV initiated. 20 GA, in the right antecubital area, Glucose check: 107. 16:18 Method Of Arrival: EMS: [facility] bp 16:18 Acuity: JEFFRY 1 bp Triage Assessment: 16:20 The onset of the patients symptoms was March 02, 2019 at 15:20. bp 16:20 General: Appears distressed, comfortable, Behavior is cooperative, appropriate for age, bp anxious. Pain: Denies pain. EENT: No deficits noted. Neuro: Reports paresthesias in LEFT FACE, LEFT ARM, LEFT LEG. Cardiovascular: Rhythm is sinus tachycardia. Respiratory: Airway is patent Respiratory effort is even, unlabored, Respiratory pattern is regular, symmetrical. GI: No signs and/or symptoms were reported involving the gastrointestinal system. : No signs and/or symptoms were reported regarding the genitourinary system. Derm: No deficits noted. Musculoskeletal: Range of motion: intact in all extremities. Stroke Activation: Symptom onset < 3 hours Physician: Stroke Attending; Name: ; Notified At: ; Arrived At: Physician: Chief Stroke Resident; Name: ; Notified At: ; Arrived At: Physician: Stroke Resident; Name: ; Notified At: ; Arrived At: Physician: ED Attending; Name: ; Notified At: ; Arrived At: Physician: ED Resident; Name: ; Notified At: ; Arrived At: Historical: - Allergies: 16:23 No Known Allergies; bp - Home Meds: 16:23 amlodipine 10 mg tab [Active]; atorvastatin 10 mg Oral tab [Active]; losartan 50 mg bp Oral tab [Active]; omeprazole 40 mg Oral cpDR [Active]; - PMHx: 16:23 Hyperlipidemia; Hypertension; bp - Immunization history:: Adult Immunizations up to date. - Social history:: Smoking status: Patient/guardian denies using tobacco. - Ebola Screening: : Patient negative for fever greater than or equal to 101.5 degrees Fahrenheit, and additional compatible Ebola Virus Disease symptoms Patient denies exposure to infectious person Patient denies travel to an Ebola-affected area in the 21 days before illness onset No symptoms or risks identified at this time. - Family history:: not pertinent. - Hospitalizations: : No recent hospitalization is reported. Screenin:26 Abuse screen: Denies threats or abuse. Denies injuries from another. Nutritional bp screening: No deficits noted. Tuberculosis screening: No symptoms or risk factors identified. Fall Risk Fall in past 12 months (25 points). Assessment: 16:26 VAN Scoring: Arm Drift: Minor drift Visual Disturbance: No visual disturbance noted. bp Aphasia: No aphasia noted. Neglect: No neglect noted. General: Appears distressed, comfortable, Behavior is cooperative, appropriate for age, anxious. Pain: Denies pain. Neuro: Level of Consciousness is awake, alert, obeys commands, Oriented to person, place, time, situation, Facial droop on left. Cardiovascular: Rhythm is sinus tachycardia. Respiratory: Airway is patent Respiratory effort is even, unlabored, Respiratory pattern is regular, symmetrical. GI: No signs and/or symptoms were reported involving the gastrointestinal system. : No signs and/or symptoms were reported regarding the genitourinary system. EENT: No deficits noted. Derm: No deficits noted. Musculoskeletal: Circulation, motion, and sensation intact. Range of motion: intact in all extremities. 16:30 The patient has not been NPO before screening. The patient is alert, and able to follow bp commands. The patient does not exhibit slurred or garbled speech. The patient is not exhibiting difficulty speaking. The patient does not exhibit difficulty understanding words. The patient is able to swallow own secretions with no drooling or need for suction. Patient tolerated one teaspoon of water. No drooling, immediate coughing, gurgling, or clearing of the throat was noted. The patient tolerated 90mL of water. No drooling, immediate coughing, gurgling, or clearing of the throat was noted. The patient passed the bedside swallow screening. Oral medications may be given as ordered. Contact Physician for further diet orders. Provider notified of bedside swallow screening results: Nemesio Bell MD. T-PA (Activase) Screening: Indications: Definite evidence of stroke, ischemic, embolic, or hypertensive: Yes. Treatment will start within 4.5 hours onset of symptoms: Yes. No evidence of intracranial hemorrhage or CT of head and no evidence of peripheral hemorrhage or recent CVA: Yes. Consent for thrombolytic therapy: Yes. 17:00 Reassessment: REPORT TO LM PECK AT [facility], TRANSPORT PENDING. bp 17:54 Reassessment: [facility] AT /, PT TRANSPORT [facility]ON[facility] WITH EMS. bp Vital Signs: 16:15 BP 133 / 89; Pulse 119; Resp 18; Temp 98.6(TE); Pulse Ox 98% on R/A; Weight 84.37 kg; hj Height 5 ft. 5 in. (165.10 cm); 16:30 BP 150 / 87; Pulse 123; Resp 21; Pulse Ox 91% on R/A; bp 17:00 BP 144 / 88; Pulse 117; Resp 16; Pulse Ox 97% ; bp 17:55 BP 154 / 80; Pulse 17; Resp 16; Pulse Ox 92% ; bp 16:15 Body Mass Index 30.95 (84.37 kg, 165.10 cm) NIH Stroke Scale Scores: 16:18 NIHSS Score: 3 rn 16:26 NIHSS Score: 3 bp ED Course: 16:14 Patient arrived in ED. 16:16 Nemesio Bell MD is Attending Physician. rn 16:20 Triage completed. bp 16:20 Arm band placed on. bp 16:25 CT Stroke Brain w/o Contrast In Process Unspecified. EDMS 16:26 Patient has correct armband on for positive identification. Bed in low position. Call bp light in reach. Side rails up X2. 16:32 transfer initiated with Kathe at the [facility] transfer center. eb 16:35 EKG done, by ED staff, reviewed by Nemesio Bell MD. hj 16:35 Maintain EMS IV. Dressing intact. Good blood return noted. Site clean \T\ dry. Gauge \T\ bp site: 20 GAUGE R AC. 16:[address] Olmedo the neurologist blown film extrusion operator for [facility] with Dr. Bell for eb patient transfer consultation. 16:40 X-ray completed. Portable x-ray completed in exam room. Patient tolerated procedure tm4 well. 16:40 Inserted saline lock: 22 gauge in left antecubital area, using aseptic technique. hj 16:41 Stroke CXR 1 View In Process Unspecified. EDMS 16:44 administrative approval given by Kathe Miller RN from the [facility]/ Dr. Bhagat has accepted the patient in transfer to [facility]/ patient is going to [address] [place] [address] bed 15/ report to be called [phone]. 16:[address] RN is Primary Nurse. bp 17:09 No provider procedures requiring assistance completed. Patient transferred, IV remains bp in place. Administered Medications: 16:45 Drug: ACTIvase {Co-Signature: iw (Deepa Fontana RN).} Route: IV Thrombolytics; Rate: bp calculated rate; Infused Over: 60 mins; 17:54 Follow up: Response: Marked relief of symptoms bp 17:56 Follow up: Response: Marked relief of symptoms bp Point of Care Testing: Blood Glucose: 16:16 Blood Glucose: 107 mg/dL; hj Ranges: Outcome: 16:39 ER care complete, transfer ordered by rn 17:08 Transferred by ground EMS to [facility], Transfer form completed. bp 17:08 Condition: stable 17:08 Instructed on the need for transfer. 17:56 Patient left the ED. bp NIH Stroke Scale - NIH Stroke Score Date: 03/02/2019 Time: 16:18 Total Score = 3 1a. Level of Consciousness (LOC) - 0(Alert) 1b. Level of Consciousness (LOC) (Year \T\ Age) - 0(Both) 1c. LOC Commands (Open \T\ Closes Eyes/Broom Machine Operator) - 0(Both) 2. Best Gaze (Lateral Gaze Paresis) - 0(Normal) 3. Visual Field Loss - 0(No visual loss) 4. Facial Palsy - 1(Minor Paralysis) 5a. Left Arm: Motor (10-second hold) - 0(No drift) 5b. Right Arm: Motor (10-second hold) - 0(No drift) 6a. Left Leg: Motor (5-second hold - always test supine) - 0(No drift) 6b. Right Leg: Motor (5-second hold - always test supine) - 0(No drift) 7. Limb Ataxia (finger/nose \T\ heel/faria - test with eyes open) - 0(Absent) 8. Sensory Loss (pinprick arms/legs/face) - 1(Mild to moderate loss) 9. Best Language: Aphasia (description/naming/reading) - 0(No aphasia) 10. Dysarthria (speech clarity - read or repeat words) - 1(Mild to Moderate) 11. Extinction and Inattention (visual/tactile/auditory/spatial/personal) - 0(No abnormality) Initials: kristopher NIH Stroke Scale - NIH Stroke Score Date: 03/02/2019 Time: 16:26 Total Score = 3 1a. Level of Consciousness (LOC) - 0(Alert) 1b. Level of Consciousness (LOC) (Year \T\ Age) - 0(Both) 1c. LOC Commands (Open \T\ Closes Eyes/Broom Machine Operator) - 0(Both) 2. Best Gaze (Lateral Gaze Paresis) - 0(Normal) 3. Visual Field Loss - 0(No visual loss) 4. Facial Palsy - 1(Minor Paralysis) 5a. Left Arm: Motor (10-second hold) - 1(Drift) 5b. Right Arm: Motor (10-second hold) - 0(No drift) 6a. Left Leg: Motor (5-second hold - always test supine) - 1(Drift) 6b. Right Leg: Motor (5-second hold - always test supine) - 0(No drift) 7. Limb Ataxia (finger/nose \T\ heel/faria - test with eyes open) - 0(Absent) 8. Sensory Loss (pinprick arms/legs/face) - 0(Normal) 9. Best Language: Aphasia (description/naming/reading) - 0(No aphasia) 10. Dysarthria (speech clarity - read or repeat words) - 0(Normal) 11. Extinction and Inattention (visual/tactile/auditory/spatial/personal) - 0(No abnormality) Initials: bp Signatures: Dispatcher [employer] EDMS DumontYanci [id number] Nemesio Bell MD MD rn Joaquin, Henry, RN RN hj Peltier, Brian, RN RN bp Botello, Elizabeth eb Irene Williams RN iw Corrections: (The following items were deleted from the chart) 16:17 16:15 BP 133 / 89; Pulse 119bpm; Resp 18bpm; Pulse Ox 98% RA; Temp 98.6F hj Temporal; hj
[2019-03-02 16:42] LABS: Absolute Lymphocytes (CBC) 2.7 K/uL (0.7-4.9); Absolute Monocytes 0.8 K/uL (0.1-1.3); Absolute Neutrophil 6.6 K/uL (1.8-8.0); Basophils % 0.3 % (0-1.3); Eosinophils % 0.9 % (0-4.4); Hematocrit 43.6 % (39.6-49.0); MPV 10.7 fL (7.6-11.3); Monocytes % 8.2 % (3.3-12.3); RBC Red Blood Cell Count 4.72 M/uL (4.33-5.43)
[2019-03-02 16:46] LABS: Protime INR 1.05
[2019-03-02] MEDS ORDERED: ALTEPLASE 100 ML IV ONE (16:50)
[2019-03-02 16:52] LABS: Potassium 4.2 mmol/L (3.5-5.1)
--- NOTE | 2019-03-02 16:56 | RAD REPORT ---
EXAM DESCRIPTION: Daisy Single View03/02/2019 4:43 pm CLINICAL HISTORY: Chest pain COMPARISON: December 2017 FINDINGS: The lungs appear clear of acute infiltrate. The heart is normal size IMPRESSION: No acute abnormalities displayed
[2019-03-02 18:05] VITALS: TEMP 98.6
[2019-03-02 18:08] VITALS: BP 154/80; O2SAT 92
--- NOTE | 2019-03-03 07:49 | EKG ---
Test Date: 2019-03-02 Test Time: 16:30:58 Director Quality Systems: CONSTANTINE MEASUREMENT RESULTS: Intervals: Rate: 124 WY: 148 QRSD: 92 QT: 312 QTc: 448 [place]: P: WY: 148 QRS: 145 T: 160 INTERPRETIVE STATEMENTS: Sinus tachycardia Left posterior fascicular block Cannot rule out Inferior infarct, age undetermined Abnormal ECG Compared to ECG 12/28/2018 13:47:17 Left posterior fascicular block now present Myocardial infarct finding now present Sinus rhythm no longer present Electronically Signed On 03-03-19 07:46:54 CDT by Daryl Aviles
== END 2019-03-02 17:56 | disposition short-term general hospital (02) ==
LOC: ER 16:14
DX: I63.9 Cerebral infarction, unspecified (principal); I10 Essential (primary) hypertension; R29.703 NIHSS score 3; E78.5 Hyperlipidemia, unspecified
CPT/HCPCS: 36415; 70450; 71045; 80048; 85025; 85610; 85730; 92977; 93005; 99285; J2997

== ENCOUNTER 2019-03-08 12:22 | Emergency (ER) | payer OTHER ==
--- OUTSIDE RECORDS SUMMARY | 2019-03-08 12:25 | XMS REPORT | Clinical Summary ---
:1955 Author Organization [facility] Address [address] [place] [address] Care Team Providers Name Role Phone SantanaRj lou Barbymayte Primary Care Provider Allergies No Known Allergies Medications Medication Sig Dispensed Refills Start Date End Date Status losartan (COZAAR) 50 Take 50 mg by 0 Active MG tablet mouth daily. amLODIPine-atorvastati Take 1 tablet by 0 Active n (CADUET) 10-10 mg mouth daily. per tablet aspirin 81 MG chewable Take 1 tablet 90 tablet 3 03/05/2019 03/04/2020 Active tablet (81 mg total) by mouth daily. atorvastatin (LIPITOR) Take 1 tablet 90 tablet 3 03/04/2019 03/03/2020 Active 40 MG tablet (40 mg total) by mouth nightly. Active Problems Problem Noted Date Stroke (cerebrum) 03/02/2019 Encounters Date Type Specialty Care Team Description 03/02/2019 - Hospital Encounter Intensive Care Philip Bhagat Acute ischemic stroke (HCC); 03/04/2019 MD Samuel Received tissue plasminogen activator (t-PA) less than 24 hours prior to arrival 03/02/2019 Travel after 03/07/2018 Social History Tobacco Use Types Packs/Day Years Used Date Former Smoker Quit: 12/28/2018 Smokeless Tobacco: Former User Alcohol Use Drinks/Week oz/Week Comments No quit 2 months ago Alcohol Habits Answer Date Recorded How often do you have a drink containing alcohol? Never 03/02/2019 How many drinks containing alcohol do you have on a typical Not asked day when you are drinking? How often do you have six or more drinks on one occasion? Not asked Sex Assigned at Date Recorded Not on file Job Start Date Occupation Industry Not on file Not on file Not on file Travel History Travel Start Travel End No recent travel history available. Last Filed Vital Signs Vital Sign Reading Time Taken Blood Pressure 130/90 03/04/2019 5:00 PM CDT Pulse 102 03/04/2019 5:00 PM CDT Temperature 36.7 C (98 F) 03/04/2019 4:00 PM CDT Respiratory Rate 17 03/04/2019 5:00 PM CDT Oxygen Saturation 97% 03/04/2019 4:00 PM CDT Inhaled Oxygen Concentration - - Weight 81.4 kg (179 lb 7.3 oz) 03/02/2019 7:15 PM CDT Height 165.1 cm (5' 5") 03/02/2019 7:15 PM CDT Body Mass Index 29.86 03/02/2019 7:15 PM CDT Plan of Treatment Not on file Procedures Procedure Name Priority Date/Time Associated Comments Diagnosis RHYTHM STRIP - SCAN 03/06/2019 11:20 AM CDT ECHOCARDIOGRAM REPORT - 03/04/2019 9:20 SCAN PM CDT 2D ECHO W/ DOPPLER STAT 03/04/2019 12:52 Results for this (CW/PW/COLOR) PM CDT procedure are in the results section. MR MRA NECK WITHOUT IV Routine 03/03/2019 4:12 Results for this CONTRAST PM CDT procedure are in the results section. MR MRA HEAD WITHOUT Routine 03/03/2019 4:12 Results for this CONTRAST PM CDT procedure are in the results section. MR BRAIN WITHOUT IV Routine 03/03/2019 4:12 Results for this CONTRAST PM CDT procedure are in the results section. CBC W/PLT COUNT & AUTO Routine 03/03/2019 3:35 Results for this DIFFERENTIAL AM CDT procedure are in the results section. BASIC METABOLIC PANEL Routine 03/03/2019 3:35 Results for this (7) AM CDT procedure are in the results section. CBC W/PLT COUNT & AUTO Routine 03/03/2019 3:35 Results for this DIFFERENTIAL AM CDT procedure are in the results section. LIPID PANEL Routine 03/03/2019 3:35 Results for this AM CDT procedure are in the results section. CBC W/PLT COUNT & AUTO Routine 03/02/2019 8:12 Results for this DIFFERENTIAL PM CDT procedure are in the results section. CBC W/PLT COUNT & AUTO Routine 03/02/2019 8:12 Results for this DIFFERENTIAL PM CDT procedure are in the results section. BASIC METABOLIC PANEL Routine 03/02/2019 8:12 Results for this (7) PM CDT procedure are in the results section. after 03/07/2018 Results RHYTHM STRIP - SCAN (03/06/2019 11:20 AM CDT) Narrative Performed At ECHOCARDIOGRAM REPORT - SCAN (03/04/2019 9:20 PM CDT) Narrative Performed At 2D Echo W/Doppler(CW/PW/Color) (03/04/2019 12:52 PM CDT) Ejection Fraction [facility] Specimen Narrative Performed At Transthoracic Echocardiography Report (TTE) [facility] Demographics Patient Name KERON MORENO Date of Study 03/04/2019 ZANDER [id number] GenderMale Visit Number [id number] RaceUnknown [id number] Room Number [id number] Number Date of Birth1955 Referring Physician Philip Palacios Age63 year(s) School Coordinator [place] Beltran CS AnalystMailyn InterpretingJoseph Luisa Estrella Physician Procedure Type of Study TTE procedure:2DECHO W DOPPLER(CW/PW/COLOR) (STAT) Indications:Suspected cardiac source of emboli. Clinical History Hyperlipidemia Hypertension HGB 12.7 HCT 40.7 % Contrast Medium: Bubble Study. Height: 65 inches Weight: 81.19 kg (179 lbs) BSA: 1.89 m^2 BMI: 29.79 kg/m^2 HR: 88 bpm BP: 134/92 mmHg Summary IV saline contrast injection demonstrates a PFO (patent foramen ovale) at rest and post Valsalva . The left ventricle is chamber size (by PSLAX dimension) is normal (male - LVIDd 4.2-5.8cm) . No evidence of LV hypertrophy. All of the LV segments contract normally . Estimated LVEF by qualitative assessment is normal (>60%) . Grade 1 diastolic dysfunction (impaired relaxation and low-normal LA pressure). Estimated peak systolic PA pressure is cannot be determined due to inadequate TR velocity signal . No significant pericardial effusion is visualized. Previous Study No prior studies available for comparison. Signature Findings Left Ventricle The LV endocardium is well visualized. Th e left ventricle is chamber size (by PSLAX di mension) is normal (male - LVIDd 4.2-5.8cm) . No evidence of LV hypertrophy. Al l of the LV segments contract normally . Es timated LVEF by qualitative assessment is normal (> 60%) . Gr vickey 1 diastolic dysfunction (impaired relaxation an d low-normal LA pressure). Left AtriumLA size is normal (16-34 ml/m2) . Right VentricleThe right ventricular chamber size and systolic fu nction are within normal limits. Right Atrium RA size is normal. Atrial SeptumIV saline contrast injection demonstrates a PFO (p atent foramen ovale) at rest and post Valsalva . Aortic Valve Normal AoV structure. A trace of aortic regurgitation. Mitral Valve Mild mitral annular calcification. Tr catracho mitral regurgitation. Tricuspid ValveA trace of tricuspid regurgitation. Es timated peak systolic PA pressure is cannot be de termined due to inadequate TR velocity signal . Pulmonic Valve Normal PV structure and function by limited views an d Doppler. AortaAortic root size (SInus of Valsalva diameter) is no rmal . PericardiumNo significant pericardial effusion is visualized. IVC/SVC/PA/PV/PleuralThe estimated RA pressure by IVC dynamics 0-5mmHg . Chambers/Structures Left Atrium LA Volume: 37.67 ml LA Area: 15.91 cm^2 LA Vol. Index: 20 ml/m^2 Left Ventricle LVIDd: 4.27 cm LV Septum Diastolic: 0.9 cm LV PW Diastolic: 1.04 cm LVEDV Dinh's:82.33 ml LVESV Dinh's:31.17 ml LVEF Dinh's: 62.1 % LVEDVI: 44 ml/m^2 LVESVI: 16 ml/m^2 LVOT Diameter: 2.06 cm Right Ventricle TAPSE: 2.17 cm Doppler/Quantitative Measurements Mitral Valve MV Peak E-Wave: 0.55 m/sMV Peak A-Wave: 0.9 m/s E/A Ratio: 0.61 Peak Gradient: 1.2 mmHg Deceleration Time: 214.6 msec MV Robbie. Peak: Tissue Doppler E' Lateral Velocity: 0.09 m/s E/E': 6.02 Aortic Valve Peak Velocity: 1.53 m/sMean Velocity: 0.94 m/s Peak Gradient: 9.38 mmHg Mean Gradient: 4.14 mmHg AV Area (continuity): 2.43 cm^2 AV VTI: 25.68 cm AV DVI: 0.73 LVOT Peak Velocity: 1.1 m/sPeak Gradient: 4.86 mmHg Mean Velocity: 0.74 m/s Mean Gradient: 2.48 mmHg LVOT Diameter: 2.06 cmLVOT VTI: 18.7 cm LVOT Area: 3.33 cm^2LVOT SV:62.29 ml LVOT CO: 5.48 l/min LVOT CI: 2.9 l/min/m^2 Procedure Note Interface, External Ris In - 03/04/2019 6:10 PM CDT Transthoracic Echocardiography Report (TTE) Demographics Patient Name KERON MORENO Date of Study 03/04/2019 ZANDER Gender Male Visit Number [id number] Race Unknown Room Number 7515 Number Date of 1955 Referring Physician Philip Palacios Age 63 year(s) School Coordinator [place] Beltran [facility] [employer] Irina Interpreting Luisa Luna Physician Procedure Type of Study TTE procedure:2DECHO W DOPPLER(CW/PW/COLOR) (STAT) Indications:Suspected cardiac source of emboli. Clinical History Hyperlipidemia Hypertension HGB 12.7 HCT 40.7 % Contrast Medium: Bubble Study. Height: 65 inches Weight: 81.19 kg (179 lbs) BSA: 1.89 m^2 BMI: 29.79 kg/m^2 HR: 88 bpm BP: 134/92 mmHg Summary IV saline contrast injection demonstrates a PFO (patent foramen ovale) at rest and post Valsalva . The left ventricle is chamber size (by PSLAX dimension) is normal (male - LVIDd 4.2-5.8cm) . No evidence of LV hypertrophy. All of the LV segments contract normally . Estimated LVEF by qualitative assessment is normal (>60%) . Grade 1 diastolic dysfunction (impaired relaxation and low-normal LA pressure). Estimated peak systolic PA pressure is cannot be determined due to inadequate TR velocity signal . No significant pericardial effusion is visualized. Previous Study No prior studies available for comparison. Signature Findings Left Ventricle The LV endocardium is well visualized. The left ventricle is chamber size (by PSLAX dimension) is normal (male - LVIDd 4.2-5.8cm) . No evidence of LV hypertrophy. All of the LV segments contract normally . Estimated LVEF by qualitative assessment is normal (>60%) . Grade 1 diastolic dysfunction (impaired relaxation and low-normal LA pressure). Left Atrium LA size is normal (16-34 ml/m2) . Right Ventricle The right ventricular chamber size and systolic function are within normal limits. Right Atrium RA size is normal. Atrial Septum IV saline contrast injection demonstrates a PFO (patent foramen ovale) at rest and post Valsalva . Aortic Valve Normal AoV structure. A trace of aortic regurgitation. Mitral Valve Mild mitral annular calcification. Trace mitral regurgitation. Tricuspid Valve A trace of tricuspid regurgitation. Estimated peak systolic PA pressure is cannot be determined due to inadequate TR velocity signal . Pulmonic Valve Normal PV structure and function by limited views and Doppler. Aorta Aortic root size (SInus of Valsalva diameter) is normal . Pericardium No significant pericardial effusion is visualized. IVC/SVC/PA/PV/Pleural The estimated RA pressure by IVC dynamics 0-5mmHg . Chambers/Structures Left Atrium LA Volume: 37.67 ml LA Area: 15.91 cm^2 LA Vol. Index: 20 ml/m^2 Left Ventricle LVIDd: 4.27 cm LV Septum Diastolic: 0.9 cm LV PW Diastolic: 1.04 cm LVEDV Dinh's:82.33 ml LVESV Dinh's:31.17 ml LVEF Dinh's: 62.1 % LVEDVI: 44 ml/m^2 LVESVI: 16 ml/m^2 LVOT Diameter: 2.06 cm Right Ventricle TAPSE: 2.17 cm Doppler/Quantitative Measurements Mitral Valve MV Peak E-Wave: 0.55 m/s MV Peak A-Wave: 0.9 m/s E/A Ratio: 0.61 Peak Gradient: 1.2 mmHg Deceleration Time: 214.6 msec MV Robbie. Peak: Tissue Doppler E' Lateral Velocity: 0.09 m/s E/E': 6.02 Aortic Valve Peak Velocity: 1.53 m/s Mean Velocity: 0.94 m/s Peak Gradient: 9.38 mmHg Mean Gradient: 4.14 mmHg AV Area (continuity): 2.43 cm^2 AV VTI: 25.68 cm AV DVI: 0.73 LVOT Peak Velocity: 1.1 m/s Peak Gradient: 4.86 mmHg Mean Velocity: 0.74 m/s Mean Gradient: 2.48 mmHg LVOT Diameter: 2.06 cm LVOT VTI: 18.7 cm LVOT Area: 3.33 cm^2 LVOT SV:62.29 ml LVOT CO: 5.48 l/min LVOT CI: 2.9 l/min/m^2 Performing Organization Address City/State/Zipcode Phone Number [facility] MR brain without IV contrast (03/03/2019 4:12 PM CDT) Specimen Narrative Performed At FINAL REPORT [facility] [place] MRI brain without contrast. INDICATION: Stroke TECHNIQUE: Multiplanar, multisequence MR imaging of the brain was performed utilizing the following imaging sequences: Axial T1, T2, FLAIR, GRE, and DWI; sagittal and coronal T1-weighted images. COMPARISON: None available. FINDINGS: There is no evidence for acute ischemia. There is no hemorrhage, mass, extra-axial collection, or hydrocephalus. Brain volume is age appropriate. There is mild degree of supratentorial white matter T2 and FLAIR hyperintensity, most likely to reflect chronic microvascular ischemic change for a patient of this age. The sellar and pineal regions are normal. The craniovertebral junction is intact. The visualized orbits, face, and skull base are without worrisome finding. Mild mucosal thickening is noted in bilateral maxillary sinuses. Mastoid air cells are clear. IMPRESSION: 1. No evidence of acute infarct. 2. Mild degree of involutional and chronic microvascular ischemic change. MRA head and neck without contrast. COMPARISON: None available. TECHNIQUE: 2 D and 3-D [id number] MRA images of the intra- and extracranial carotid and vertebral arterial circulations were obtained, from which maximal intensity projection 3-D reconstructions were created. FINDINGS: MRA neck: There is mild (approximately 20% by NASCET criteria) narrowing of the proximal left ICA just above the bulb. There is significant stenosis identified in the right cervical carotid artery. No hemodynamically significant stenosis identified in the vertebral artery, flow is antegrade in both vertebral arteries. MRA [place]: There is a inferiorly to the 2 mm outpouching arising from the supraclinoid left ICA, compatible with a small aneurysm. No evidence of hemodynamically significant stenosis, or major branch vessel occlusion. IMPRESSION: 1. Mild narrowing of the proximal left cervical ICA. 2. 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 Correlation with CTA or conventional angiogram can be considered if clinically appropriate. Signed: Regine Mooney MD Report Verified Date/Time:03/03/2019 16:16:12 Reading Location: [facility] [id number] Neuro Reading Room Procedure Note Interface, External Ris In - 03/03/2019 4:18 PM CDT FINAL REPORT MRI brain without contrast. INDICATION: Stroke TECHNIQUE: Multiplanar, multisequence MR imaging of the brain was performed utilizing the following imaging sequences: Axial T1, T2, FLAIR, GRE, and DWI; sagittal and coronal T1-weighted images. COMPARISON: None available. FINDINGS: There is no evidence for acute ischemia. There is no hemorrhage, mass, extra-axial collection, or hydrocephalus. Brain volume is age appropriate. There is mild degree of supratentorial white matter T2 and FLAIR hyperintensity, most likely to reflect chronic microvascular ischemic change for a patient of this age. The sellar and pineal regions are normal. The craniovertebral junction is intact. The visualized orbits, face, and skull base are without worrisome finding. Mild mucosal thickening is noted in bilateral maxillary sinuses. Mastoid air cells are clear. IMPRESSION: 1. No evidence of acute infarct. 2. Mild degree of involutional and chronic microvascular ischemic change. MRA head and neck without contrast. COMPARISON: None available. TECHNIQUE: 2 D and 3-D [id number] MRA images of the intra- and extracranial carotid and vertebral arterial circulations were obtained, from which maximal intensity projection 3-D reconstructions were created. FINDINGS: MRA neck: There is mild (approximately 20% by NASCET criteria) narrowing of the proximal left ICA just above the bulb. There is significant stenosis identified in the right cervical carotid artery. No hemodynamically significant stenosis identified in the vertebral artery, flow is antegrade in both vertebral arteries. MRA [place]: There is a inferiorly to the 2 mm outpouching arising from the supraclinoid left ICA, compatible with a small aneurysm. No evidence of hemodynamically significant stenosis, or major branch vessel occlusion. IMPRESSION: 1. Mild narrowing of the proximal left cervical ICA. 2. 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 Correlation with CTA or conventional angiogram can be considered if clinically appropriate. Signed: Regine Mooney MD Report Verified Date/Time: 03/03/2019 16:16:12 Reading Location: [facility] B1 C013V Neuro Reading Room Performing Organization Address City/State/Zipcode Phone Number [facility] [place] MRA neck without IV contrast (03/03/2019 4:12 PM CDT) Specimen Narrative Performed At FINAL REPORT [facility] [place] MRI brain without contrast. INDICATION: Stroke TECHNIQUE: Multiplanar, multisequence MR imaging of the brain was performed utilizing the following imaging sequences: Axial T1, T2, FLAIR, GRE, and DWI; sagittal and coronal T1-weighted images. COMPARISON: None available. FINDINGS: There is no evidence for acute ischemia. There is no hemorrhage, mass, extra-axial collection, or hydrocephalus. Brain volume is age appropriate. There is mild degree of supratentorial white matter T2 and FLAIR hyperintensity, most likely to reflect chronic microvascular ischemic change for a patient of this age. The sellar and pineal regions are normal. The craniovertebral junction is intact. The visualized orbits, face, and skull base are without worrisome finding. Mild mucosal thickening is noted in bilateral maxillary sinuses. Mastoid air cells are clear. IMPRESSION: 1. No evidence of acute infarct. 2. Mild degree of involutional and chronic microvascular ischemic change. MRA head and neck without contrast. COMPARISON: None available. TECHNIQUE: 2 D and 3-D [id number] MRA images of the intra- and extracranial carotid and vertebral arterial circulations were obtained, from which maximal intensity projection 3-D reconstructions were created. FINDINGS: MRA neck: There is mild (approximately 20% by NASCET criteria) narrowing of the proximal left ICA just above the bulb. There is significant stenosis identified in the right cervical carotid artery. No hemodynamically significant stenosis identified in the vertebral artery, flow is antegrade in both vertebral arteries. MRA [place]: There is a inferiorly to the 2 mm outpouching arising from the supraclinoid left ICA, compatible with a small aneurysm. No evidence of hemodynamically significant stenosis, or major branch vessel occlusion. IMPRESSION: 1. Mild narrowing of the proximal left cervical ICA. 2. 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 Correlation with CTA or conventional angiogram can be considered if clinically appropriate. Signed: Regine Mooney MD Report Verified Date/Time:03/03/2019 16:16:12 Reading Location: [facility] B1 C013V Neuro Reading Room Procedure Note Interface, External Ris In - 03/03/2019 4:18 PM CDT FINAL REPORT MRI brain without contrast. INDICATION: Stroke TECHNIQUE: Multiplanar, multisequence MR imaging of the brain was performed utilizing the following imaging sequences: Axial T1, T2, FLAIR, GRE, and DWI; sagittal and coronal T1-weighted images. COMPARISON: None available. FINDINGS: There is no evidence for acute ischemia. There is no hemorrhage, mass, extra-axial collection, or hydrocephalus. Brain volume is age appropriate. There is mild degree of supratentorial white matter T2 and FLAIR hyperintensity, most likely to reflect chronic microvascular ischemic change for a patient of this age. The sellar and pineal regions are normal. The craniovertebral junction is intact. The visualized orbits, face, and skull base are without worrisome finding. Mild mucosal thickening is noted in bilateral maxillary sinuses. Mastoid air cells are clear. IMPRESSION: 1. No evidence of acute infarct. 2. Mild degree of involutional and chronic microvascular ischemic change. MRA head and neck without contrast. COMPARISON: None available. TECHNIQUE: 2 D and 3-D [id number] MRA images of the intra- and extracranial carotid and vertebral arterial circulations were obtained, from which maximal intensity projection 3-D reconstructions were created. FINDINGS: MRA neck: There is mild (approximately 20% by NASCET criteria) narrowing of the proximal left ICA just above the bulb. There is significant stenosis identified in the right cervical carotid artery. No hemodynamically significant stenosis identified in the vertebral artery, flow is antegrade in both vertebral arteries. MRA [place]: There is a inferiorly to the 2 mm outpouching arising from the supraclinoid left ICA, compatible with a small aneurysm. No evidence of hemodynamically significant stenosis, or major branch vessel occlusion. IMPRESSION: 1. Mild narrowing of the proximal left cervical ICA. 2. 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 Correlation with CTA or conventional angiogram can be considered if clinically appropriate. Signed: Regine Mooney MD Report Verified Date/Time: 03/03/2019 16:16:12 Reading Location: [facility] C0[facility] Neuro Reading Room Performing Organization Address City/State/Zipcode Phone Number [facility] [place] MRA head without IV contrast (03/03/2019 4:12 PM CDT) Specimen Narrative Performed At FINAL REPORT [facility] [place] MRI brain without contrast. INDICATION: Stroke TECHNIQUE: Multiplanar, multisequence MR imaging of the brain was performed utilizing the following imaging sequences: Axial T1, T2, FLAIR, GRE, and DWI; sagittal and coronal T1-weighted images. COMPARISON: None available. FINDINGS: There is no evidence for acute ischemia. There is no hemorrhage, mass, extra-axial collection, or hydrocephalus. Brain volume is age appropriate. There is mild degree of supratentorial white matter T2 and FLAIR hyperintensity, most likely to reflect chronic microvascular ischemic change for a patient of this age. The sellar and pineal regions are normal. The craniovertebral junction is intact. The visualized orbits, face, and skull base are without worrisome finding. Mild mucosal thickening is noted in bilateral maxillary sinuses. Mastoid air cells are clear. IMPRESSION: 1. No evidence of acute infarct. 2. Mild degree of involutional and chronic microvascular ischemic change. MRA head and neck without contrast. COMPARISON: None available. TECHNIQUE: 2 D and 3-D [id number] MRA images of the intra- and extracranial carotid and vertebral arterial circulations were obtained, from which maximal intensity projection 3-D reconstructions were created. FINDINGS: MRA neck: There is mild (approximately 20% by NASCET criteria) narrowing of the proximal left ICA just above the bulb. There is significant stenosis identified in the right cervical carotid artery. No hemodynamically significant stenosis identified in the vertebral artery, flow is antegrade in both vertebral arteries. MRA [place]: There is a inferiorly to the 2 mm outpouching arising from the supraclinoid left ICA, compatible with a small aneurysm. No evidence of hemodynamically significant stenosis, or major branch vessel occlusion. IMPRESSION: 1. Mild narrowing of the proximal left cervical ICA. 2. 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 Correlation with CTA or conventional angiogram can be considered if clinically appropriate. Signed: Regine Mooney MD Report Verified Date/Time:03/03/2019 16:16:12 Reading Location: [facility] C013V Neuro Reading Room Procedure Note Interface, External Ris In - 03/03/2019 4:18 PM CDT FINAL REPORT MRI brain without contrast. INDICATION: Stroke TECHNIQUE: Multiplanar, multisequence MR imaging of the brain was performed utilizing the following imaging sequences: Axial T1, T2, FLAIR, GRE, and DWI; sagittal and coronal T1-weighted images. COMPARISON: None available. FINDINGS: There is no evidence for acute ischemia. There is no hemorrhage, mass, extra-axial collection, or hydrocephalus. Brain volume is age appropriate. There is mild degree of supratentorial white matter T2 and FLAIR hyperintensity, most likely to reflect chronic microvascular ischemic change for a patient of this age. The sellar and pineal regions are normal. The craniovertebral junction is intact. The visualized orbits, face, and skull base are without worrisome finding. Mild mucosal thickening is noted in bilateral maxillary sinuses. Mastoid air cells are clear. IMPRESSION: 1. No evidence of acute infarct. 2. Mild degree of involutional and chronic microvascular ischemic change. MRA head and neck without contrast. COMPARISON: None available. TECHNIQUE: 2 D and 3-D [id number]-dk-[id number] MRA images of the intra- and extracranial carotid and vertebral arterial circulations were obtained, from which maximal intensity projection 3-D reconstructions were created. FINDINGS: MRA neck: There is mild (approximately 20% by NASCET criteria) narrowing of the proximal left ICA just above the bulb. There is significant stenosis identified in the right cervical carotid artery. No hemodynamically significant stenosis identified in the vertebral artery, flow is antegrade in both vertebral arteries. MRA [place]: There is a inferiorly to the 2 mm outpouching arising from the supraclinoid left ICA, compatible with a small aneurysm. No evidence of hemodynamically significant stenosis, or major branch vessel occlusion. IMPRESSION: 1. Mild narrowing of the proximal left cervical ICA. 2. 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 Correlation with CTA or conventional angiogram can be considered if clinically appropriate. Signed: Regine Mooney MD Report Verified Date/Time: 03/03/2019 16:16:12 Reading Location: [facility] C013V Neuro Reading Room Performing Organization Address City/State/Zipcode Phone Number GE RIS CBC with platelet count + automated diff (03/03/2019 3:35 AM CDT)Only the most recent of2 resultswithin the time period is included. WBC 8.7 3.5 - 10.5 K/L [facility] RBC 4.30 (L) 4.63 - 6.08 M/L [facility] Hemoglobin 12.7 (L) 13.7 - 17.5 GM/DL [facility] Hematocrit 40.7 40.1 - 51.0 % [facility] MCV 94.7 (H) 79.0 - 92.2 fL [facility] MCH 29.5 25.7 - 32.2 pg [facility] MCHC 31.2 (L) 32.3 - 36.5 GM/DL [facility] RDW 14.3 11.6 - 14.4 % [facility] Platelets 142 (L) 150 - 450 K/CU MM [facility] MPV 11.5 9.4 - 12.4 fL [facility] nRBC 0 0 - 0 /100 WBC [facility] % Neutros 55 % [facility] % Lymphs 33 % [facility] % Monos 9 % [facility] % Eos 1 % [facility] % Baso 1 % [facility] # Neutros 4.84 1.78 - 5.38 K/L [facility] # Lymphs 2.87 1.32 - 3.57 K/L [facility] # Monos 0.82 0.30 - 0.82 K/L [facility] # Eos 0.12 0.04 - 0.54 K/L [facility] # Baso 0.05 0.01 - 0.08 K/L [facility] Immature Granulocytes-Relative 0 0 - 1 % [facility] Specimen Blood Performing Organization Address City/State/Zipcode Phone Number [facility] [address] [place] [address] [phone] CENTER Fasting lipid panel (03/03/2019 3:35 AM CDT) Triglycerides 62 mg/dL [facility] Cholesterol 123 mg/dL [facility] HDL 40 mg/dL [facility] LDL Calculated 71 mg/dL [facility] Specimen Blood Narrative Performed At Triglyceride Reference Range: [facility] Low Risk <150 [id number] High Risk 200-499 Very High Risk>=500 Cholesterol Reference Range: Low Risk <200 [id number] High Risk>240 HDL Cholesterol Reference Range: Low Risk >=60 High Risk <40 LDL Cholesterol Reference Range: Optimal<100 Near [id number] Yeebhvsxdq074-499 Tasr627-071 Very High >=190 Fasting Performing Organization Address City/[facility] Phone Number [address] [address] CENTER Basic Metabolic Panel (03/03/2019 3:35 AM CDT)Only the most recent of2 resultswithin the time period is included. Sodium 142 136 - 145 meq/L [facility] Potassium 4.1 3.5 - 5.1 meq/L [facility] Chloride 109 (H) 98 - 107 meq/L [facility] CO2 27 22 - 29 meq/L [facility] BUN 15 7 - 21 mg/dL [facility] Creatinine 0.74 0.57 - 1.25 mg/dL [facility] Glucose 104 70 - 105 mg/dL [facility] Calcium 9.3 8.4 - 10.2 mg/dL [facility] EGFR 107Comment: ESTIMATED GFR IS mL/min/1.73 sq m [facility] NOT ACCURATE CREATININE [facility] CENTER CLEARANCE IN PREDICTING GLOMERULAR FILTRATION RATE. ESTIMATED GFR IS NOT APPLICABLE FOR DIALYSIS PATIENTS. Specimen Blood Narrative Performed At Fasting [facility] Performing Organization Address City/State/Zipcode Phone Number [facility] [address] [place] [address] CENTER after 03/07/2018 Insurance Payer Benefit Plan / Group Subscriber ID Type Phone Address JANET PATHAK xxxxxxxxxxx Advance Directives For more information, please contact:[facility] [place], [place] [phone] Code Status Date Activated Date Inactivated Comments Full Code 03/02/2019 7:54 PM 03/04/2019 9:16 PM This code status was determined by: Patient
--- OUTSIDE RECORDS SUMMARY | 2019-03-08 12:25 | XMS REPORT ---
:1955 [facility] Address [address] [place] [address] [place] [id number] Care Team Providers Name Role Phone FALLON SOLIMAN Unavailable Unavailable Problems This patient has no known problems. Allergies, Adverse Reactions, Alerts This patient has no known allergies or adverse reactions. Medications This patient has no known medications. Results Test Description Test Time Test Comments Text Results Atomic Results Result Comments MR, BRAIN, 2019-03-03 Reason for FINAL REPORT PATIENT WITHOUT CONTRAST 16:16:00 exam:->StrokeWhat is the ID: [id number] MRI patient's sedation brain without contrast. requirement?->No Sedation INDICATION: Stroke TECHNIQUE: Multiplanar, multisequence MR imaging [...] None available. TECHNIQUE: 2 D and 3-D swhb-up-kcewrv MRA images of the intra- and extracranial [...] is antegrade in both vertebral arteries. MRA [place]: There is a inferiorly to [...] considered if clinically appropriate. Signed: Regine Mooney MDReport Verified Date/Time: 03/03/2019 16:16:12 Reading Location: [facility] C013 Neuro Reading Room , MRA, BRAIN, 2019-03-03 Reason for FINAL REPORT PATIENT WITHOUT CONTRAST 16:16:00 exam:->Ischemic Stroke ID: [id number] MRI Evaluation brain without contrast. INDICATION: Stroke TECHNIQUE: Multiplanar, [...] None available. TECHNIQUE: 2 D and 3-D [id number]-eu-vjnldg MRA images of the intra- and extracranial [...] is antegrade in both vertebral arteries. MRA [place]: There is a inferiorly to [...] considered if clinically appropriate. Signed: Regine Mooney MDReport Verified Date/Time: 03/03/2019 16:16:12 Reading Location: [facility] C013V Neuro Reading Room , MRA, NECK, 2019-03-03 Reason for FINAL REPORT PATIENT WITHOUT IV 16:16:00 exam:->Ischemic Stroke ID: [id number] MRI CONTRAST Evaluation brain without contrast. INDICATION: Stroke TECHNIQUE: Multiplanar, [...] None available. TECHNIQUE: 2 D and 3-D [id number] MRA images of the intra- and extracranial [...] is antegrade in both vertebral arteries. MRA [place]: There is a inferiorly to [...] considered if clinically appropriate. Signed: Regine Mooney MDReport Verified Date/Time: 03/03/2019 16:16:12 Reading Location: [facility] C013 Neuro Reading Room D PANEL 2019-03-03 04:08:00 Test Item Value Reference Range Comments TRIGLYCERIDES (BEAKER) (test hpnn=531) 62 mg/dL CHOLESTEROL (BEAKER) (test awxc=574) 123 mg/dL HDL CHOLESTEROL (BEAKER) (test bxeb=347) 40 mg/dL LDL CHOLESTEROL CALCULATED (BEAKER) (test astf=661) 71 mg/dL Triglyceride Reference Range: Low Risk <150 Borderline 150- 199 High Risk 200-499 Very High Risk >=500Cholesterol Reference Range: Low Risk <200 Borderline 200-239 High Risk > 240HDL Cholesterol Reference Range: Low Risk >=60 High Risk <40LDL Cholesterol Reference Range: Optimal <100 Near Optimal 100-129 Borderline 130-159 High 160-189 Very High >=190 FastingBASIC METABOLIC [id number] 04:08:00 Test Item Value Reference Range Comments SODIUM (BEAKER) (test 142 meq/L 136-145 xpnu=967) POTASSIUM (BEAKER) (test 4.1 meq/L 3.5-5.1 obto=498) CHLORIDE (BEAKER) (test 109 meq/L 98-107 pzdd=225) CO2 (BEAKER) (test 27 meq/L 22-29 nfsb=930) BLOOD UREA NITROGEN 15 mg/dL 7-21 (BEAKER) (test dybc=874) CREATININE (BEAKER) (test 0.74 mg/dL 0.57-1.25 onxf=194) GLUCOSE RANDOM (BEAKER) 104 mg/dL 70-105 (test onie=448) CALCIUM (BEAKER) (test 9.3 mg/dL 8.4-10.2 aenz=145) EGFR (BEAKER) (test 107 mL/min/1.73 sq m ESTIMATED GFR IS NOT rjsw=8828) ACCURATE CREATININE CLEARANCE IN PREDICTING GLOMERULAR FILTRATION RATE. ESTIMATED GFR IS NOT APPLICABLE FOR DIALYSIS PATIENTS. FastingCBC W/PLT COUNT & AUTO [id number] 03:54:00 Test Item Value Reference Range Comments WHITE BLOOD CELL COUNT (BEAKER) (test bwuf=826) 8.7 K/ L 3.5-10.5 RED BLOOD CELL COUNT (BEAKER) (test mxxk=846) 4.30 M/ L 4.63-6.08 HEMOGLOBIN (BEAKER) (test qjru=644) 12.7 GM/DL 13.7-17.5 HEMATOCRIT (BEAKER) (test tjxd=846) 40.7 % 40.1-51.0 MEAN CORPUSCULAR VOLUME (BEAKER) (test ymhw=632) 94.7 fL 79.0-92.2 MEAN CORPUSCULAR HEMOGLOBIN (BEAKER) (test 29.5 pg 25.7-32.2 qqpz=090) MEAN CORPUSCULAR HEMOGLOBIN CONC (BEAKER) (test 31.2 GM/DL 32.3-36.5 sgrn=996) RED CELL DISTRIBUTION WIDTH (BEAKER) (test 14.3 % 11.6-14.4 hyyl=856) PLATELET COUNT (BEAKER) (test mcyy=697) 142 K/CU MM 150-450 MEAN PLATELET VOLUME (BEAKER) (test exme=774) 11.5 fL 9.4-12.4 NUCLEATED RED BLOOD CELLS (BEAKER) (test 0 /100 WBC 0-0 gypf=204) NEUTROPHILS RELATIVE PERCENT (BEAKER) (test 55 % drrb=134) LYMPHOCYTES RELATIVE PERCENT (BEAKER) (test 33 % wovx=572) MONOCYTES RELATIVE PERCENT (BEAKER) (test 9 % uqaa=460) EOSINOPHILS RELATIVE PERCENT (BEAKER) (test 1 % qbej=431) BASOPHILS RELATIVE PERCENT (BEAKER) (test 1 % reiq=043) NEUTROPHILS ABSOLUTE COUNT (BEAKER) (test 4.84 K/ L 1.78-5.38 mgai=457) LYMPHOCYTES ABSOLUTE COUNT (BEAKER) (test 2.87 K/ L 1.32-3.57 svkf=852) MONOCYTES ABSOLUTE COUNT (BEAKER) (test 0.82 K/ L 0.30-0.82 xbjx=550) EOSINOPHILS ABSOLUTE COUNT (BEAKER) (test 0.12 K/ L 0.04-0.54 lexq=816) BASOPHILS ABSOLUTE COUNT (BEAKER) (test 0.05 K/ L 0.01-0.08 fqxc=788) IMMATURE GRANULOCYTES-RELATIVE PERCENT (BEAKER) 0 % 0-1 (test uucl=7992) CBC W/PLT COUNT & AUTO [id number] 20:55:00 Test Item Value Reference Range Comments WHITE BLOOD CELL COUNT (BEAKER) (test urgf=870) 10.4 K/ L 3.5-10.5 RED BLOOD CELL COUNT (BEAKER) (test eaoq=084) 4.29 M/ L 4.63-6.08 HEMOGLOBIN (BEAKER) (test zagd=109) 12.9 GM/DL 13.7-17.5 HEMATOCRIT (BEAKER) (test eane=512) 40.3 % 40.1-51.0 MEAN CORPUSCULAR VOLUME (BEAKER) (test xrmc=155) 93.9 fL 79.0-92.2 MEAN CORPUSCULAR HEMOGLOBIN (BEAKER) (test 30.1 pg 25.7-32.2 afwj=323) MEAN CORPUSCULAR HEMOGLOBIN CONC (BEAKER) (test 32.0 GM/DL 32.3-36.5 llrn=028) RED CELL DISTRIBUTION WIDTH (BEAKER) (test 14.3 % 11.6-14.4 bxgh=955) PLATELET COUNT (BEAKER) (test fkrn=529) 157 K/CU MM 150-450 MEAN PLATELET VOLUME (BEAKER) (test uptn=682) 11.6 fL 9.4-12.4 NUCLEATED RED BLOOD CELLS (BEAKER) (test 0 /100 WBC 0-0 rjfi=822) NEUTROPHILS RELATIVE PERCENT (BEAKER) (test 79 % acmq=772) LYMPHOCYTES RELATIVE PERCENT (BEAKER) (test 15 % zdaz=381) MONOCYTES RELATIVE PERCENT (BEAKER) (test 5 % puma=446) EOSINOPHILS RELATIVE PERCENT (BEAKER) (test 0 % hngg=875) BASOPHILS RELATIVE PERCENT (BEAKER) (test 0 % dvrm=008) NEUTROPHILS ABSOLUTE COUNT (BEAKER) (test 8.27 K/ L 1.78-5.38 furu=915) LYMPHOCYTES ABSOLUTE COUNT (BEAKER) (test 1.56 K/ L 1.32-3.57 pmyr=647) MONOCYTES ABSOLUTE COUNT (BEAKER) (test 0.49 K/ L 0.30-0.82 gisc=542) EOSINOPHILS ABSOLUTE COUNT (BEAKER) (test 0.02 K/ L 0.04-0.54 mtxv=134) BASOPHILS ABSOLUTE COUNT (BEAKER) (test 0.03 K/ L 0.01-0.08 ncdg=950) IMMATURE GRANULOCYTES-RELATIVE PERCENT (BEAKER) 0 % 0-1 (test xzja=0732) BASIC METABOLIC [id number] 20:44:00 Test Item Value Reference Range Comments SODIUM (BEAKER) (test 137 meq/L 136-145 uqik=458) POTASSIUM (BEAKER) (test 4.2 meq/L 3.5-5.1 jahq=460) CHLORIDE (BEAKER) (test 104 meq/L 98-107 rfjq=932) CO2 (BEAKER) (test 23 meq/L 22-29 jqzv=483) BLOOD UREA NITROGEN 17 mg/dL 7-21 (BEAKER) (test hvgh=925) CREATININE (BEAKER) (test 0.81 mg/dL 0.57-1.25 pjsa=294) GLUCOSE RANDOM (BEAKER) 108 mg/dL 70-105 (test tjez=317) CALCIUM (BEAKER) (test 9.2 mg/dL 8.4-10.2 bnom=600) EGFR (BEAKER) (test 97 mL/min/1.73 sq m ESTIMATED GFR IS NOT xoei=9320) ACCURATE CREATININE CLEARANCE IN PREDICTING GLOMERULAR FILTRATION RATE. ESTIMATED GFR IS NOT APPLICABLE FOR DIALYSIS PATIENTS.
--- NOTE | 2019-03-08 12:41 | RAD REPORT ---
EXAM DESCRIPTION: CT - Ct Stroke Brain Wo Cont - 03/08/2019 12:34 pm CLINICAL HISTORY: Slurred speech;Weakness CVA, headache COMPARISON: Ct Stroke Brain Wo Cont dated 03/02/2019 TECHNIQUE: All CT scans are performed using dose optimization technique as appropriate and may inclu de automated exposure control or mA/KV adjustment according to patient size. FINDINGS: No intracranial hemorrhage, hydrocephalus or extra-axial fluid collection.Mild brain atrop hy is noted.No areas of brain edema or evidence of midline shift. The paranasal sinuses and mastoids are clear. The calvarium is intact. IMPRESSION: No acute intracranial abnormality. The findings were discussed with Dr. Bell on 03/08/2019 at 12:37 p.m. by telephone.
--- NOTE | 2019-03-08 12:55 | RAD REPORT ---
EXAM DESCRIPTION: RAD - Chest Single View - 03/08/2019 12:50 pm CLINICAL HISTORY: CVA Chest pain. COMPARISON: Chest Single View dated 03/02/2019; Chest Pa And Lat (2 Views) dated 12/28/2018; Chest Sin gle View dated 10/05/2018; CHEST PA AND LAT 2 VIEW dated 06/08/2015 FINDINGS: Portable technique limits examination quality. The lungs are grossly clear. The heart is normal in size. No displaced fractures. IMPRESSION: No acute intrathoracic process suspected.
[2019-03-08 12:56] LABS: Protime INR 1.06
--- NOTE | 2019-03-08 13:01 | ER ---
Nurse's Notes [facility] Name: John Moreno Age: 63 yrs Sex: Male : 1955 Arrival Date: 03/08/2019 Time: 12:24 Bed 2 Private MD: Diagnosis: Acute ischemic stroke;Paresthesia of skin;Slurred speech Presentation: 03/08 12:28 Presenting complaint: EMS states: Left sided weakness and slurred speech that started hb at 1100 today. Transition of care: patient was not received from another setting of care. Onset of symptoms was March 08, 2019 at 11:00. Risk Assessment: Do you want to hurt yourself or someone else? Patient reports no desire to harm self or others. Care prior to arrival: None. 12:28 Method Of Arrival: EMS: [facility] 12:28 Acuity: JEFFRY 2 hb Historical: - Allergies: 12:31 No Known Allergies; hb - Home Meds: 12:31 amlodipine 10 mg tab [Active]; atorvastatin 10 mg Oral tab [Active]; losartan 50 mg hb Oral tab [Active]; omeprazole 40 mg Oral cpDR [Active]; - PMHx: 12:31 Hyperlipidemia; Hypertension; hb - Immunization history:: Adult Immunizations up to date. - Social history:: Smoking status: Patient/guardian denies using tobacco. - Ebola Screening: : No symptoms or risks identified at this time. - Family history:: not pertinent. - Hospitalizations: : No recent hospitalization is reported. Screenin:35 Abuse screen: Denies threats or abuse. Denies injuries from another. Nutritional sg screening: No deficits noted. Tuberculosis screening: No symptoms or risk factors identified. Never had TB. Fall Risk None identified. 12:35 VAN Screening: Arm Drift: Patient shows no arm weakness. Patient is VAN negative. sg Assessment: 12:24 Reassessment: Dr. Bell at bedside to evaluate pt. hb 12:26 Reassessment: BGL 157. hb 12:27 Reassessment: pt transported to Ct via stretcher, with cardiac catheterization technologist. iw 12:27 Reassessment: CODE STROKE CALLED. hb 12:35 General: Appears in no apparent distress. well groomed, well developed, well nourished, sg Behavior is calm, appropriate for age, quiet. Pain: Denies pain. Neuro: Reports paresthesias in left arm weakness in left arm. Cardiovascular: Capillary refill is brisk in bilateral fingers Patient's skin is warm and dry. Chest pain is denied. Respiratory: Airway is patent Respiratory effort is even, unlabored, Respiratory pattern is regular, symmetrical. GI: Abdomen is round non-distended. : No signs and/or symptoms were reported regarding the genitourinary system. EENT: No signs and/or symptoms were reported regarding the EENT system. Derm: Skin is pink, warm \T\ dry. Musculoskeletal: No signs and/or symptoms reported regarding the musculoskeletal system. 12:55 Reassessment: Patient appears in no apparent distress at this time. at bedside sg updating pt and pt family on results and POC. 13:30 Reassessment: Patient appears in no apparent distress at this time. Patient and/or sg family updated on plan of care and expected duration. Pain level reassessed. pt family remains at bedside at this time Patient states symptoms have not improved. Vital Signs: 12:28 BP 155 / 85; Pulse 62; Resp 16; Temp 98.4; Pulse Ox 100% on R/A; Pain 0/10; hb 12:56 BP 139 / 84; Pulse 110; Resp 18 S; Pulse Ox 99% on R/A; sg 13:51 BP 134 / 83; Pulse 106; Resp 17; Pulse Ox 99% on R/A; sg NIH Stroke Scale Scores: 13:46 NIHSS Score: 2 ED Course: 12:24 Patient arrived in ED. hb 12:28 Nemesio Bell MD is Attending Physician. rn 12:29 Triage completed. hb 12:29 Arm band placed on. hb 12:34 CT Stroke Brain w/o Contrast In Process Unspecified. EDMS 12:35 Patient has correct armband on for positive identification. Bed in low position. Call sg light in reach. Side rails up X2. personnel monitor on. Pulse ox on. NIBP on. Warm blanket given. Head of bed elevated. 12:35 EKG done, by planetarium technician. reviewed by Nemesio Bell MD. 3 12:35 Initial lab(s) drawn, by nj, sent to lab. Inserted saline lock: 20 gauge in right sg antecubital area, using aseptic technique. Blood collected. 12:35 No provider procedures requiring assistance completed. sg 12:40 X-ray completed. Portable x-ray completed in exam room. Patient tolerated procedure jb2 well. 12:44 initiated a transfer with Adrianne at the [facility]. eb 12:[address] Glover the neurologist merchandiser seasonal for [facility] with Dr. Bell for patient transfer consultation. 12:50 XRAY Chest (1 view) In Process Unspecified. EDMS 12:51 Nilo Simon, CISCO is Primary Nurse. sg 13:[address] Mo the hospitalist merchandiser seasonal for [facility] with Dr. Bell for eb patient transfer consultation. 13:37 administrative approval given by Adrianne Alexander RN media services coordinator/ pt has been eb accepted to [facility] bed 2238/ Dr. Mo has accepted the patient in transfer/ report to be called to [phone]. 14:09 Patient transferred, IV remains in place. intact, No redness/swelling at site. sg Administered Medications: No medications were administered Point of Care Testing: Blood Glucose: 12:26 Blood Glucose: 157 mg/dL; hb Ranges: Outcome: 13:01 ER care complete, transfer ordered by MD. peck 14:06 Transferred Note: report called to Taryn PECK at [facility] sg 14:50 Patient left the ED. iw NIH Stroke Scale - NIH Stroke Score Date: 03/08/2019 Time: 13:46 Total Score = 2 1a. Level of Consciousness (LOC) - 0(Alert) 1b. Level of Consciousness (LOC) (Year \T\ Age) - 0(Both) 1c. LOC Commands (Open \T\ Closes Eyes/Home Manager) - 0(Both) 2. Best Gaze (Lateral Gaze Paresis) - 0(Normal) 3. Visual Field Loss - 0(No visual loss) 4. Facial Palsy - 0(Normal) 5a. Left Arm: Motor (10-second hold) - 0(No drift) 5b. Right Arm: Motor (10-second hold) - 0(No drift) 6a. Left Leg: Motor (5-second hold - always test supine) - 0(No drift) 6b. Right Leg: Motor (5-second hold - always test supine) - 0(No drift) 7. Limb Ataxia (finger/nose \T\ heel/faria - test with eyes open) - 0(Absent) 8. Sensory Loss (pinprick arms/legs/face) - 1(Mild to moderate loss) 9. Best Language: Aphasia (description/naming/reading) - 0(No aphasia) 10. Dysarthria (speech clarity - read or repeat words) - 1(Mild to Moderate) 11. Extinction and Inattention (visual/tactile/auditory/spatial/personal) - 0(No abnormality) Initials: Signatures: Dispatcher [employer] EDNilo Alexandre RN RN Arnaldo Carias jb2 Deepa Fontana RN RN Nemesio Oneal MD MD rn Baxter, Heather, RN RN hb Botello, Elizabeth eb Montes, Shakira sm3 Corrections: (The following items were deleted from the chart) 13:46 12:35 NIHSS Score: 1 [facility] 14:03 13:51 BP 134 / 83; Pulse 106bpm; Resp 17bpm; Pulse Ox 20% RA; [facility]
[2019-03-08 13:02] LABS: Absolute Lymphocytes (CBC) 2.1 K/uL (0.7-4.9); Absolute Monocytes 0.5 K/uL (0.1-1.3); Absolute Neutrophil 3.8 K/uL (1.8-8.0); Basophils % 0.6 % (0-1.3); Eosinophils % 1.2 % (0-4.4); Hematocrit 43.3 % (39.6-49.0); Lymphocytes % 32.1 % (15.3-44.8); MPV 10.4 fL (7.6-11.3); RBC Red Blood Cell Count 4.65 M/uL (4.33-5.43)
--- NOTE | 2019-03-08 13:02 | EDPHYS ---
Physician Documentation [facility] Name: John Moreno Age: 63 yrs Sex: Male : 1955 Arrival Date: 03/08/2019 Time: 12:24 Bed 2 Private MD: ED Physician Nemesio Bell HPI: 03/08 12:57 This 63 yrs old Male presents to ER via EMS with complaints of S/S of Possible rn Stroke. 12:57 The patient's problem is reported as paresthesias, dysphasia, weakness. Onset: The rn symptoms/episode began/occurred at 11:00. Duration: The episode is continuous. The symptoms are alleviated by nothing. The symptoms are aggravated by nothing. Severity of symptoms: At their worst the symptoms were mild in the emergency department the symptoms are unchanged. The patient has experienced a previous episode. I saw this man last week with identical symptoms, got TPA, transferred to [facility], symptoms resolved, diagnosed with TIA, returns with 1.5 hours of speech difficulty, left side feels heavy and tingling. . Historical: - Allergies: 12:31 No Known Allergies; hb - Home Meds: 12:31 amlodipine 10 mg tab [Active]; atorvastatin 10 mg Oral tab [Active]; losartan 50 mg hb Oral tab [Active]; omeprazole 40 mg Oral cpDR [Active]; - PMHx: 12:31 Hyperlipidemia; Hypertension; hb - Immunization history:: Adult Immunizations up to date. - Social history:: Smoking status: Patient/guardian denies using tobacco. - Ebola Screening: : No symptoms or risks identified at this time. - Family history:: not pertinent. - Hospitalizations: : No recent hospitalization is reported. ROS: 12:57 Constitutional: Negative for fever, chills, and weight loss, Eyes: Negative for injury, rn pain, redness, and discharge, Neck: Negative for injury, pain, and swelling, Cardiovascular: Negative for chest pain, palpitations, and edema, Respiratory: Negative for shortness of breath, cough, wheezing, and pleuritic chest pain, Abdomen/GI: Negative for abdominal pain, nausea, vomiting, diarrhea, and constipation, MS/Extremity: Negative for injury and deformity, Skin: Negative for injury, rash, and discoloration, Neuro: + slurred speech, left sided weakness and paresthesias Exam: 12:54 ECG was reviewed by the Attending Physician. rn 12:57 Radiologist reports: No acute findings. rn 12:57 Constitutional: This is a well developed, well nourished patient who is awake, alert, and in no acute distress. Head/Face: Normocephalic, atraumatic. Eyes: Pupils equal round and reactive to light, extra-ocular motions intact. Lids and lashes normal. Conjunctiva and sclera are non-icteric and not injected. Cornea within normal limits. Periorbital areas with no swelling, redness, or edema. ENT: MMM Cardiovascular: Regular rate and rhythm. No pulse deficits. Respiratory: Lungs have equal breath sounds bilaterally, clear to auscultation Abdomen/GI: soft, non-tender MS/ Extremity: Pulses equal, no cyanosis. Neurovascular intact. Full, normal range of motion. Equal circumference. Neuro: Awake and alert, GCS 15, oriented to person, place, time, and situation. + mild dysarthria, + LUE/LLE decreased sensation to soft touch, no drift with strength 5/5 throughout Vital Signs: 12:28 BP 155 / 85; Pulse 62; Resp 16; Temp 98.4; Pulse Ox 100% on R/A; Pain 0/10; hb 12:56 BP 139 / 84; Pulse 110; Resp 18 S; Pulse Ox 99% on R/A; sg 13:51 BP 134 / 83; Pulse 106; Resp 17; Pulse Ox 99% on R/A; sg NIH Stroke Scale Scores: 13:46 NIHSS Score: 2 sg MDM: 12:28 Patient medically screened. rn 12:44 ED course: Called Dr. Yates for transfer, no answer. Calling [facility] neurology for rn consultation given patient with recent identical symptoms and TPA given just last week. . 12:50 ED course: Spoke with Dr. Zaidi at [facility], confirms that recent stroke last week rn and TPA administration is an absolute contraindication for another TPA, accepts patient for transfer to [facility] under hospitalist and neuro tele. . 12:57 Differential diagnosis: CVA, TIA. Data reviewed: vital signs, nurses notes, EKG, rn radiologic studies, CT scan, and as a result, I will admit patient. Counseling: I had a detailed discussion with the patient and/or guardian regarding: the historical points, exam findings, and any diagnostic results supporting the discharge/admit diagnosis, radiology results, the need to transfer to another facility, for higher level of care, [facility] does not immediately have the required specialist. 03/08 12:28 Order name: Basic Metabolic Panel; Complete Time: 13:13 rn 03/08 12:28 Order name: CBC with Diff; Complete Time: 13:13 rn 03/08 12:28 Order name: Protime (+inr); Complete Time: 13:13 rn 03/08 12:28 Order name: Ptt, Activated; Complete Time: 13:13 rn 03/08 12:28 Order name: Glucose, Ancillary Testing; Complete Time: 12:36 EDMS 03/08 12:42 Order name: Glucose, Ancillary Testing; Complete Time: 12:56 EDMS 03/08 12:28 Order name: CT Stroke Brain w/o Contrast; Complete Time: 12:56 rn 03/08 12:28 Order name: EKG; Complete Time: 12:30 rn 03/08 12:28 Order name: Accucheck; Complete Time: 14:05 rn 03/08 12:28 Order name: Cardiac monitoring; Complete Time: 14:05 rn 03/08 12:28 Order name: EKG - Nurse/Tech; Complete Time: 14:05 rn 03/08 12:28 Order name: IV Saline Lock; Complete Time: 14:05 rn 03/08 12:28 Order name: Labs collected and sent; Complete Time: 14:05 rn 03/08 12:42 Order name: XRAY Chest (1 view); Complete Time: 12:56 rn 03/08 12:28 Order name: NPO; Complete Time: 14:05 rn 03/08 12:28 Order name: O2 Per Protocol; Complete Time: 14:05 rn 03/08 12:28 Order name: O2 Sat Monitoring; Complete Time: 14:05 rn 03/08 12:28 Order name: Stroke Swallow Screen; Complete Time: 14:05 rn EC:54 Rate is 102 beats/min. Rhythm is regular. QRS [place] is Normal. OK interval is normal. rn QRS interval is normal. QT interval is normal. No Q waves. T waves are Normal. No ST changes noted. Clinical impression: No evidence of ischemia. Interpreted by me. Reviewed by me. Administered Medications: No medications were administered Point of Care Testing: Blood Glucose: 12:26 Blood Glucose: 157 mg/dL; hb Ranges: Critical Glucose Levels:Adult <50 mg/dl or >400 mg/dl <40 mg/dl or >180 mg/dl Disposition: 03/08/19 13:[address] [facility]. Diagnosis are Acute ischemic stroke, Paresthesia of skin, Slurred speech. - Reason for transfer: Higher level of care. - Accepting physician is Dr. Mo. - Condition is Stable. - Problem is new. - Symptoms are unchanged. Critical care time excluding procedures: 12:57 Critical care time: Bedside Care: 25 minutes, Consultation: 5 minutes, Family rn Intervention: 5 minutes. Total time: 35 minutes NIH Stroke Scale - NIH Stroke Score Date: 03/08/2019 Time: 13:46 Total Score = 2 1a. Level of Consciousness (LOC) - 0(Alert) 1b. Level of Consciousness (LOC) (Year \T\ Age) - 0(Both) 1c. LOC Commands (Open \T\ Closes Eyes/Combustion Analyst) - 0(Both) 2. Best Gaze (Lateral Gaze Paresis) - 0(Normal) 3. Visual Field Loss - 0(No visual loss) 4. Facial Palsy - 0(Normal) 5a. Left Arm: Motor (10-second hold) - 0(No drift) 5b. Right Arm: Motor (10-second hold) - 0(No drift) 6a. Left Leg: Motor (5-second hold - always test supine) - 0(No drift) 6b. Right Leg: Motor (5-second hold - always test supine) - 0(No drift) 7. Limb Ataxia (finger/nose \T\ heel/faria - test with eyes open) - 0(Absent) 8. Sensory Loss (pinprick arms/legs/face) - 1(Mild to moderate loss) 9. Best Language: Aphasia (description/naming/reading) - 0(No aphasia) 10. Dysarthria (speech clarity - read or repeat words) - 1(Mild to Moderate) 11. Extinction and Inattention (visual/tactile/auditory/spatial/personal) - 0(No abnormality) Initials: sg Signatures: Dispatcher [employer] EDDeepa Ford RN RN iw Nieto, Roman, MD MD rn Baxter, Heather, RN RN hb Corrections: (The following items were deleted from the chart) 13:00 12:50 ED course: Spoke with Dr. Cohen at [facility], confirms that recent rn stroke last week and TPA administration is an absolute contraindication for another TPA, accepts patient for transfer to [facility] under hospitalist and neuro tele. . rn 14:50 13:01 03/08/2019 13:[address] [facility]. iw Diagnosis is Acute ischemic stroke; Paresthesia of skin; Slurred speech. Reason for transfer: Higher level of care. Accepting physician is Dr. Mo. Condition is Stable. Problem is new. Symptoms are unchanged. rn
[2019-03-08 13:03] LABS: Potassium 4.2 mmol/L (3.5-5.1)
[2019-03-08 14:57] VITALS: TEMP 98.4
[2019-03-08 14:59] VITALS: O2SAT 99
[2019-03-08 15:01] VITALS: BP 134/83
--- NOTE | 2019-03-08 15:16 | EKG ---
Test Date: 2019-03-08 Test Time: 12:35:08 [employer] Operator: HANS MEASUREMENT RESULTS: Intervals: Rate: 102 [place]: 152 QRSD: 92 QT: 330 QTc: 430 [place]: P: 35 [place]: 152 QRS: 34 T: 10 INTERPRETIVE STATEMENTS: Sinus tachycardia Possible Inferior infarct, age undetermined Abnormal ECG Compared to ECG 03/02/2019 16:30:58 Myocardial infarct finding still present Electronically Signed On 03-08-19 15:15:17 CDT by Charly Coy
== END 2019-03-08 14:50 | disposition short-term general hospital (02) ==
LOC: ER 12:22
DX: I63.9 Cerebral infarction, unspecified (principal); I69.328 Other speech and language deficits following cerebral infarction; R20.2 Paresthesia of skin; E78.5 Hyperlipidemia, unspecified; I10 Essential (primary) hypertension
CPT/HCPCS: 36415; 70450; 71045; 80048; 82962; 85025; 85610; 85730; 93005; 99285

== ENCOUNTER 2021-03-15 17:40 | Emergency (ER) | payer OTHER ==
--- OUTSIDE RECORDS SUMMARY | 2021-03-15 17:44 | XMS REPORT | Continuity of Care Document ---
:1955 Author Organization [facility] t Address [address] [place] [address] Care Team Providers Name Role Phone Jarred Henry Primary Care Physician Iris OGLESBY Attending Clinician Eliana OGLESBY Attending Clinician Eliana OGLESBY Attending Clinician Gonzalo De La Cruz MD Attending Clinician Gonzalo De La Cruz MD Attending Clinician Eveline PECK, N Attending Clinician Unavailable GONZALO DE LA CRUZ Attending Clinician Unavailable Christiano OGLESBY Attending Clinician Duy Steiner MD Attending Clinician Mandeep Tuttle MD Attending Clinician PATEL Attending Clinician Unavailable DEWAYNE SOLIMAN Attending Clinician Unavailable PATEL Admitting Clinician Unavailable DEWAYNE SOLIMAN Admitting Clinician Unavailable Payers Payer Name Policy Type Policy Effective Date Expiration Date Sour Number AMBETTERAMBETTER [id number] [facility] - Medical 05/2019-Present Center Problems Condition Condition Condition Status Onset Resolution Last Treating Co mments Source Name Details Category Date Date Treatment Clinician Date PAD PAD Disease Active [facility] (periphera (periphera 3-05 Jackeline kes - l artery l artery 00:00: Medica l disease) disease) 00 Center Complicate Complicate Disease Active [facility] d migraine d migraine 5-04 Jackeline kes - 00:00: Medical 00 Center TIA TIA Disease Active [facility] (transient (transient 5-03 Jackeline kes - ischemic ischemic 00:00: Medica l attack) attack) 00 Center Stroke Stroke Disease Active [facility] (cerebrum) (cerebrum) 4-27 Jackeline kes - 00:00: Medical 00 Center Allergies, Adverse Reactions, Alerts This patient has no known allergies or adverse reactions. Social History Social Habit Start Date Stop Date Quantity Comments Source History [facility] History [facility] - Alcohol Binge Medical [facility] ter Sex Assigned At [facility] Cigarettes smoked 2021-01-13 2021-01-13 MAR Jackelinehonorio - current (pack per 00:00:00 00:00:00 [facility] Center day) - Reported Cigarette 2021-01-13 2021-01-[address] [facility] [address] [facility] - pack-years 00:00:00 00:00:00 [facility] Tobacco use and 2021-01-13 2021-01-13 Former user [facility] [place] ukes - exposure 00:00:00 00:00:00 [facility] Alcohol intake 2021-01-13 2021-01-13 Ex-drinker [facility] Viver[facility] es - 00:00:00 00:00:00 (finding) [facility] History SDOH 2019-03-02 2019-03-[address] [facility] - Alcohol Frequency 00:00:00 00:00:00 [facility] Alcohol Comment 2019-03-02 2019-03-02 quit [address] [facility] - 00:00:00 00:00:00 ago [facility] Center History of tobacco 2018-12-[address] [facility] - use 00:00:00 [facility] Smoking Status Start Date Stop Date Source Former smoker 2021-01-13 00:00:00 2021-01-13 00:00:[address] [facility] [address] [facility] Medications Ordered Filled Start Stop Current Ordering Indication Dosage Frequency Signature Comments Components Source Medication Medication Date Date Medication? Clinician (SIG) Name Name losartan Yes 50mg QD Take [address] [facility] (COZAAR) 50 3-05 by mouth Luke s - MG tablet 18:12: daily. Medica l 59 Center amLODIPine Yes 10mg QD Take [address] (NORVASC) 3-05 by mouth Lukes - 10 MG 18:12: daily. Medical tablet 59 [place] aspirin 81 Yes 1{tbl} QD Take [address] MG EC 3-05 tablet by Lukes - tablet 18:12: mouth Medical 59 daily. [place] busPIRone Yes 1{tbl} QD Take [address] (BUSPAR) 3-05 tablet by Lukes - 7.5 MG 18:12: mouth Medical tablet 59 daily. [place] flu vac qs Yes 1{tbl} QD Take [address] 2019-,4 3-05 tablet by Lukes - yr up, CD 18:12: mouth Medical (Flucelvax 59 daily. [place] Quad ) 60 mcg (15 mcg x 4)/0.5 mL Susp folic acid Yes 5mg QD Inject [address] 5 mg/mL 3-05 mg Lukes - injection 18:12: intramuscu Me dical 59 larly Center daily. mirtazapine Yes 1{tbl} QD Take [address] (REMERON) 3-05 tablet by Lukes - 7.5 MG 18:12: mouth Medical tablet 59 daily. [place] oxybutynin Yes 5mg QD Take [address] (DITROPAN) 3-05 by mouth Lukes - 5 MG tablet 18:12: daily. Medi christina 59 Center tamsulosin Yes .4mg QD Take 0.[address] (FLOMAX) 3-05 mg by Lukes - 0.4 mg Cap 18:12: mouth Medica l 24 hr 59 daily. [place] capsule clopidogreL 2021- Yes 75mg QD Take [address] (PLAVIX) 75 3-05 03-05 tablet (75 L ukes - mg tablet 00:00: 23:59 mg total) Me dical 00 :00 by mouth Center daily. topiramate Yes 1{tbl} QD Take [address] (TOPAMAX) 2-25 tablet by Lukes - 50 MG 00:00: mouth Medical tablet 00 daily. [place] atorvastati Yes 1{tbl} QD Take [address] n (LIPITOR) 1-19 tablet by Laura es - 10 MG 00:00: mouth Medical tablet 00 daily. [place] cyclobenzap Yes 1{tbl} QD Take [address] rine 1-13 tablet by Lukes - (FLEXERIL) 00:00: mouth Medica l 10 MG 00 daily. [place] tablet magnesium Yes 1{tbl} QD Take [address] oxide 1-04 tablet by Lukes - (MAG-OX) 00:00: mouth Medical 400 mg 00 daily. [place] (241.3 mg magnesium) tablet omeprazole 2019-11 Yes 20mg QD Take [address] (PriLOSEC) 2-29 by mouth Lukes - 20 MG 00:00: daily. Medical capsule 00 [place] lactulose 2019-11 Yes 60mL QD Take 60 [facility] (CHRONULAC) 1-24 mLs by Lukes - 10 gram/15 00:00: mouth Medica l mL solution 00 nightly . [facility] ter methylPREDN Yes 1{tbl} QD Take [address] ISolone 7-27 tablet by Lukes - (MEDROL 00:00: mouth Medical DOSEPACK) 4 00 daily. [place] mg tablet traMADoL Yes 1{tbl} QD Take 1 [facility] (ULTRAM) 50 2-17 tablet by Laura es - mg tablet 00:00: mouth Medical 00 daily. [place] MethylPREDN MethylPREDN Yes Jorge as [facility] ISolone ISolone 07-25 Leonard directed [facility] - 00:00: [facility] Tramadol Tramadol Yes Jorge as [facility] HCl HCl 07-09 Leonard directed [facility] - 00:00: [facility] Omeprazole Omeprazole Yes Jorge not [facility] defined [facility] Aspirin 81 Aspirin 81 Yes Jorge not [facility] defined [facility] atorvastati atorvastati Yes Jorge not [facility] n n [facility] defined [facility] Amlodipine Amlodipine Yes Jorge not [facility] Besylate Besylate Leonard defined Luke [facility] Losartan Losartan Yes Jorge not [facility] Potassium Potassium Leonard defined Jackeline kes - [facility] Folic Acid Folic Acid Yes Jorge not [facility] defined [facility] Clindamycin Clindamycin Yes Jorge not [facility] HCl HCl Leonard defined [facility] BusPIRone BusPIRone Yes Joreg not [facility] HCl HCl Leonard defined [facility] Mirtazapine Mirtazapine Yes Jorge not [facility] defined [facility] Atorvastati Atorvastati Yes Jorge not [facility] n Calcium n Calcium Leonard defined Jackeline kes - [facility] MAGnesium-O MAGnesium-O Yes Jorge not [facility] xide xide Leonard defined [facility] Flucelvax Flucelvax Yes Jorge not [facility] Quadrivalen Quadrivalen Leonard defined [facility] Baclofen Baclofen Yes Jorge not [facility] defined [facility] Vital Signs Vital Name Observation Time Observation Value Comments Source Systolic blood 2021-01-08 16:45:00 139 mm[Hg] [facility] Diastolic blood 2021-01-08 16:45:00 67 mm[Hg] [facility] Heart rate 2021-01-08 16:45:00 86 /min [facility] Respiratory rate 2021-01-08 16:45:00 17 /min [facility] Oxygen saturation in 2021-01-08 16:45:00 97 /min [facility] - Arterial blood by Medical Ce nter Pulse oximetry Body temperature 2021-01-08 09:31:00 36.67 Leah [facility] Body height 2021-01-08 09:31:00 165.1 cm [facility] Body weight 2021-01-08 09:31:00 83.779 kg [facility] BMI 2021-01-08 09:31:00 30.74 kg/m2 MAR Lopez L ukes - [facility] Center Procedures Procedure Date / Time Performed Performing Clinician Sourc e PERIPHERAL ANGIOS / 2021-01-08 13:10:00 De La Cruz, Mariusz MAR Howell ukes - AORTOGRAM [facility] ECG 12-LEAD 2021-01-08 09:54:43 Mariusz De La Cruz MAR Andreakes - [facility] CARDIAC CATH REPORT - 2021-01-08 00:00:00 Provider, Leilani Andreahonorio - SCAN Scanning [facility] CBC W/PLT COUNT & AUTO 2021-01-04 13:06:00 De La CruzMariusz ellis [facility] DIFFERENTIAL [facility] BASIC METABOLIC PANEL 2021-01-04 13:06:00 De La CruzMariusz ellis [facility] - (7) [facility] PROTHROMBIN TIME/INR 2021-01-04 13:06:00 De La CruzMariusz ellis [facility] - [facility] SARS-COV2/RT-PCR ([facility] & 2021-01-04 12:49:00 De La CruzMariusz ellis [facility] Plan of Care Planned Activity Planned Date Details Comments Source Future Scheduled 2027-09-[address] Laura es - Test 00:00:00 malignant [facility] colon (procedure) [code = 415254933] Future Scheduled 2022-03-[address] [facility] - Test 00:00:00 (procedure) [code = [facility] [id number]] Future Scheduled 2021-07-[address] [facility] - Test 00:00:00 (Season Ended) [code Medical Center = INFLUENZA VACCINE (Season Ended)] Future Scheduled 2020-11-[address] [facility] - Test 00:00:00 (12+) [code = [facility] DEPRESSION SCREENING (12+)] Future Scheduled 2006 SHINGLES VACCINES ([address] [facility] - Test 00:00:00 of 2) [code = [facility] SHINGLES VACCINES (1 of 2)] Future Scheduled 1975 DTAP/TDAP/TD VACCINES [facility] - Test 00:00:00 (1 - Tdap) [code = Medical enter DTAP/TDAP/TD VACCINES (1 - Tdap)] Future Scheduled 1974 HEPATITIS C SCREENING [facility] - Test 00:00:00 [code = HEPATITIS C Medical Center SCREENING] Encounters Start End Encounter Admission Attending Care Care Encounter Source Date/Time Date/Time Type Type Clinicians Facility Department ID 2021-03-03 2021-03-03 Office JOSIANE Simmons [id number] 12:05:37 12:20:37 Visit Chuckie AMBULATOR [id number] Y [id number] 2021-02-18 2021-02-18 [id number] 2021-02-16 2021-02-16 Office JOSIANE Monroy [id number] 09:21:06 10:13:12 Visit Mohan AMBULATOR [id number] Y [id number] [id number] 2021-01-25 2021-01-25 Office JOSIANE De La Cruz [id number] 11:06:09 12:30:03 Visit Mariusz AMBULATOR [id number] Gonzalo Y 0.2.7.2.686 [id number] 2020-12-07 2020-12-07 Office JOSIANE De La Cruz [id number] 09:22:17 15:25:48 Visit Mariusz AMBULATOR [id number] Gonzalo Y 0.2.7.2.686 [id number] 2020-12-02 2020-12-02 Office JOSIANE Simmons [id number] 14:28:34 14:43:34 Visit Chuckie AMBULATOR [id number] Y [id number] [id number] 2020-11-25 2020-11-25 [facility] [id number] [facility] 2020-11-16 2020-11-16 [facility] [id number] [facility]00 [facility] 2020-10-12 2020-10-12 Office JOISANE Alvarado [id number] 13:52:12 14:22:12 Visit Khai AMBULATOR [id number] Y [id number] [id number] 2020-09-08 2020-09-08 Outpatient [facility] [id number] MH 07:57:00 07:57:00 [facility] 2020-08-06 2020-08-06 Office JOSIANE Alvarado [id number] 14:02:58 14:46:32 Visit Khai AMBULATOR [id number] Y [id number] [id number] 2020-07-28 2020-07-28 [facility] [id number] [facility] 00[facility]00 kes - [facility] 2020-07-16 2020-07-16 [facility] [id number] 16:13:00 16:13:00 [facility] 2020-07-14 2020-07-14 [facility] [id number] 09:30:00 09:30:00 [facility] 2020-06-01 2020-06-01 [facility] [id number] 09:00:00 09:00:00 [facility] 2020-04-23 2020-04-23 Office JOSIANE Monroy [id number] 11:27:32 11:47:32 Visit Mohan AMBULATOR 350.1.13.21 Y 0.2.7.2.686 [id number] 2020-01-22 2020-01-22 Office JOSIANE Steiner [id number] 09:35:07 10:05:07 Visit Kalen AMBULATOR 350.1.13.21 Young Y 0.2.7.2.686 [id number] 2020-01-22 2020-01-22 [facility] [id number] 08:07:00 08:07:00 [facility] ent [facility] 2020-01-08 2020-01-08 [facility] [id number] 12:23:00 12:23:00 [facility] 2019-12-23 2019-12-23 [facility] [id number] 08:00:00 08:00:00 [facility] ent Clinics 2019-10-10 2019-10-10 [facility] [id number] 09:37:00 09:37:00 [facility] ent [facility] 2019-10-09 2019-10-09 [facility] [id number] 15:29:00 15:29:00 [facility] ent Clinics 2019-09-09 2019-09-09 [facility] [id number] 16:12:00 16:12:00 [facility] ent [facility] 2019-09-02 2019-09-02 [facility] [id number] 12:24:00 12:24:00 [facility] ent [facility] 2019-08-22 2019-08-22 [facility] [id number] 09:00:00 09:00:00 [facility] ent Clinics 2019-08-16 2019-08-16 Office JOSIANE Tuttle [id number] 12:53:30 13:30:16 Visit Ruth AMBULATOR 350.1.13.21 Mandeep Mendez 0.2.7.2.686 [id number] 2019-07-25 2019-07-25 [facility] [id number] 10:00:00 10:00:00 t [facility] ent Clinics 2019-07-21 2019-07-21 [facility] [id number] 20:21:00 20:21:00 t [facility] - [facility] ent [facility] Results Test Description Test Time Test Comments Results Result [facility] e Comments CARDIAC CATH Ordered by an [facility] St REPORT - SCAN 8 unspecified provider. [facility] - 10:10:20 [facility] ECG 12 lead Interface, External Ris [facility] St 5 In - 01/08/2021 7:43 Laura es - 19:43:21 PM CSTVentricular Rate Me dical 81 BPMAtrial Rate 81 Cent er BPMP-R Interval 144 msQRS Duration 92 msQ-T Interval 370 msQTC Calculation(Bazett) 429 msP [place] 47 degreesR [place] 60 degreesT [place] 49 degreesNormal sinus rhythmNormal ECGNo previous ECGs availableConfirmed by Joseph Perry ([id number]) on 01/08/2021 7:43:18 PM SARS-CoV2/RT-PCR (Asymptomatic ONLY) 2021-01-05 02:00:00 Test Item Value Reference Range Interpretation Comme nts SARS-COV2/RT-PCR (test code = Negative Not Detected, 43734-6) Negative, See external report for linked test SARS-COV-2 PERFORMING LAB [facility] CRISTIAN (test code = 78035-5) JOSEPH (test code = JOSEPH) Negative result for this test determines that SARS-CoV-2 RNA was not present in the specimen above the Limit of Detection (LOD). However, Negative results do not preclude SARS-CoV-2 infection and should not be used as the sole basis for treatment or patient management decisions. Negative results must be combined with clinical observations, patient history, and epidemiological information. A false negative result may occur if a specimen is improperly collected, transported or handled. A false negative result should be considered if patient's recent exposures or clinical presentation indicate that COVID-19 (SARS-CoV-2) is likely and diagnostic tests for other causes of illness are negative. Re-testing should be considered in cases of suspected false negatives. The limit of detection for this assay is 100 copies/mL. This SARS CoV-2 test is a real-time RT-PCR test intended for the qualitative detection of nucleic acid from SARS-CoV-2 in a nasopharyngeal swab specimen collected from individuals suspected of COVID-19 by their healthcare provider. This test has not been Food and Drug Administration (FDA) cleared or approved. This is a modified version of an approved Emergency Use Authorization (EUA) and is in the process of review by the FDA. Once authorized by the FDA, the issued EUA will be effective until the declaration that circumstances exist justifying the authorization of the emergency use of in vitro diagnostic tests for detection and/or diagnosis of COVID-19 is terminated under Section 564(b)(2) of the Act or the EUA is revoked under Section 564(g) of the Act. Testing was performed using the Arias SARS-CoV-2 assay. Fact Sheet for Healthcare Providers:https://www.[facility]he[facility] Healthcarelex oliver.arias/gisel/DD_OEPI-QhN-2_O CP_Fact_Sheet_51-003641.pdf Fact Sheet for Healthcare Patients:https://www.Digheon Healthcareula r.arias/gisel/ID_LRXX-WxL-9_Qm tient_Fact_Sheet_EN_51-054177 R3.pdf Performing Laboratory:[facility] [place] [address] [facility]2021-01-05 02:00:00 Test Item Value Reference Range Interpretation Comments SARS-COV2/RT-PCR (test Negative Not Detected, Negative, code = 8274151) See external report for linked test SARS-COV-2 PERFORMING LAB [facility] (test code = 5556666) Negative result for this test determines that SARS-CoV-2 RNA was not present in the specimen above the Limit of Detection (LOD). However, Negative results do not preclude SARS-CoV-2 infection and should not be used as the sole basis for treatment or patient management decisions. Negative results mustbe combined with clinical observations, patient history, and epidemiological information. A false negative result may occur if a specimen is improperly collected, transported or handled. A false negative result should be considered if patient's recent exposures or clinical presentation indicate that COVID-19 (SARS-CoV-2) is likely and diagnostic tests for other causes of illness are negative. Re-testing should be considered in cases of suspected false negatives.The limit of detection for this assay is 100 copies/mL.This SARS CoV-2 test is a real-time RT-PCR test intended for the qualitative detection of nucleic acid from SARS-CoV-2 in a nasopharyngeal swab specimen collected from individuals susp ected of COVID-19 by their healthcare provider.This test has not been Food and Drug Administration (FDA) cleared or approved. This is a modified version of an approved Emergency Use Authorization (EUA) and is in the process of review by the FDA. Once authorized by the FDA, the issued EUA will be effective until the declaration that circumstances exist justifying the authorization of the emergency use of in vitro diagnostic tests for detection and/or diagnosis of COVID-19 is terminated under Section 564(b)(2) of the Act or the EUA is revoked under Section 564(g) of the Act.Testing was performed using the Arias SARS-CoV-2 assay.Fact Sheet for Healthcare Providers:https://www.molecular.arias/gisel/ KZ_TZDC-GtC-0_WUQ_Noyp_Guptl_50-238742.pdfFact Sheet for Healthcare Patients:https://www.molecular.ab afia/gisel/VS_AOMC-DbQ-1_Twxgnuy_Tusi_Uwpxh_CW_13-896209O3.pdfPerforming Laboratory:[address] [place] [address] Basic Metabolic [id number] 13:40:00 Test Item Value Reference Range Interpretation Comments Sodium (test code = 139 meq/L 501-444 4668-2) Potassium (test 4.7 meq/L 3.5-5.1 code = 2823-3) Chloride (test code 104 meq/L 98-107 = 2075-0) CO2 (test code = 27 meq/L 22-29 2027-9) BUN (test code = 12 mg/dL 7-21 3094-0) Creatinine (test 1.05 mg/dL 0.57-1.25 code = 2160-0) Glucose (test code 94 mg/dL 70-105 = 2345-7) Calcium (test code 9.3 mg/dL 8.4-10.2 = 83684-1) EGFR (test code = 71 mL/min/1.73 [place] [address]-9) NOT ACCURATE CREATININE CLEARANCE IN PREDICTING GLOMERULAR FILTRATION RATE . ESTIMATED GFR I S NOT APPLICABLE FOR DIALYSIS PATIEN TS. JOSEPH (test code = Brick Burner Head ID - JOSEPH) JAK Dawson [facility] Center[facility]I METABOLIC [id number] 13:40:00 Test Item Value Reference Range Interpretation Comments SODIUM (BEAKER) 139 meq/L 136-145 (test code = 381) POTASSIUM (BEAKER) 4.7 meq/L 3.5-5.1 (test code = 379) CHLORIDE (BEAKER) 104 meq/L 98-107 (test code = 382) CO2 (BEAKER) (test 27 meq/L 22-29 code = 355) BLOOD UREA NITROGEN 12 mg/dL 7-21 (BEAKER) (test code = 354) CREATININE (BEAKER) 1.05 mg/dL 0.57-1.25 (test code = 358) GLUCOSE RANDOM 94 mg/dL 70-105 (BEAKER) (test code = 652) CALCIUM (BEAKER) 9.3 mg/dL 8.4-10.2 (test code = 697) EGFR (BEAKER) (test 71 mL/min/1.73 ESTIMA FABIAN GFR IS code = 1092) sq m NOT ACCURATE CREATININE CLEARANCE IN PREDICTING GLOMERULAR FILTRATION RATE . ESTIMATED GFR I S NOT APPLICABLE FOR DIALYSIS PATIEN TS. Brick Burner Head ID - JAK MProthrombin time/[id number] 13:21:00 Test Item Value Reference Interpretation Comments Range Protime (test code = 12.7 See_Comment [Autom ated 5902-2) message] The system which generated this result transmitted reference range : 11.9 - 14.2 seconds. The reference range was not used to interpret this result as normal/abnormal . INR (test code = 0.99 See_Comment [Automated 6301-6) message] The system which generated this result transmitted reference range : <=5.90. The reference range was not used to interpret this result as normal/abnormal . JOSEPH (test code = Effective 04/03/2019: JOSEPH) PT Reference Range ChangeNew: 11.9-14.2 Previous: 11.7-14.7 RECOMMENDED COUMADIN/WARFARIN INR THERAPY RANGESSTANDARD DOSE: 2.0-3.0 Includes: PROPHYLAXIS for venous thrombosis, systemic embolization; TREATMENT for venous thrombosis and/or pulmonary embolus.HIGH RISK: Target INR is 2.5-3.5 for patients wiht mechanical heart valves. Lab Interpretation Normal (test code = 71817-2) [facility] CenterPROTHROMBIN TIME/[id number] 13:21:00 Test Item Value Reference Range Interpretation Comments PROTIME (BEAKER) 12.7 seconds 11.9-14.2 (test code = 759) INR (BEAKER) (test 0.99 See_Comment [Automat ed message] code = 370) The system [employer] generated this result transmitted ref erence range: <=5.90. The reference range was not used to int erpret this result as normal/abnormal . Effective 04/03/2019: PT Reference Range ChangeNew: 11.9-14.2 Previous: 11.7- 14.7RECOMMENDED COUMADIN/WARFARIN INR THERAPY RANGESSTANDARD DOSE: 2.0-3.0 Includes: PROPHYLAXIS for venous thrombosis, systemic embolization; TREATMENT for venous thrombosis and/or pulmonary embolus.HIGH RISK: Target INR is2.5-3.5 for patients wiht mechanical heart valves.CBC with platelet count + automated [id number] 13:14:00 Test Item Value Reference Range Interpretation Comments WBC (test code = 6690-2) 8.3 See_Comment [A utomated message] The system [employer] generated this result transmitted ref erence range: 3.5 - 10 .5 K/L. The refe rence range was not u sed to interpret this result as normal/abnor mal. RBC (test code = 789-8) 4.62 See_Comment L [Au tomated message] The system [employer] generated this result transmitted ref erence range: 4.63 - 6 .08 M/L. The refe rence range was not u sed to interpret this result as normal/abnor mal. MCHC (test code = 786-4) 32.2 See_Comment L [A utomated message] The system [employer] generated this result transmitted ref erence range: 32.3 - 3 6.5 GM/DL. The refe rence range was not u sed to interpret this result as normal/abnor mal. Hematocrit (test code = 43.8 % 40.1-51 4544-3) MCV (test code = 787-2) 94.8 fL 79-92.2 H MCH (test code = 785-6) 30.5 pg 25.7-32.2 RDW (test code = 788-0) 13.6 % 11.6-14.4 Platelets (test code = 179 See_Comment [Aut omated message] 777-3) The system [employer] generated this result transmitted ref erence range: 150 - 45 0 K/CU MM. The referen ce range was not u sed to interpret this result as normal/abnor mal. MPV (test code = 11.0 fL 9.4-12.4 66060-9) nRBC (test code = 413) 0 See_Comment [Aut omated message] The system [employer] generated this result transmitted ref erence range: 0 - 0 /1 00 WBC. The refere nce range was not u sed to interpret this result as normal/abnor mal. % Neutros (test code = 60 % 429) % Lymphs (test code = 29 % 430) % Monos (test code = 9 % 431) % Eos (test code = 432) 1 % % Baso (test code = 437) 1 % # Neutros (test code = 5.03 See_Comment [Aut omated message] 670) The system [employer] generated this result transmitted ref erence range: 1.78 - 5 .38 K/L. The refe rence range was not u sed to interpret this result as normal/abnor mal. # Lymphs (test code = 2.40 See_Comment [Auto mated message] 414) The system [employer] generated this result transmitted ref erence range: 1.32 - 3 .57 K/L. The refe rence range was not u sed to interpret this result as normal/abnor mal. # Monos (test code = 0.74 See_Comment [Autom ated message] 415) The system [employer] generated this result transmitted ref erence range: 0.30 - 0 .82 K/L. The refe rence range was not u sed to interpret this result as normal/abnor mal. # Eos (test code = 416) 0.07 See_Comment [Au tomated message] The system [employer] generated this result transmitted ref erence range: 0.04 - 0 .54 K/L. The refe rence range was not u sed to interpret this result as normal/abnor mal. # Baso (test code = 417) 0.07 See_Comment [A utomated message] The system [employer] generated this result transmitted ref erence range: 0.01 - 0 .08 K/L. The refe rence range was not u sed to interpret this result as normal/abnor mal. Immature 0 % 0-1 Granulocytes-Relative (test code = 2801) Lab Interpretation (test Abnormal code = 78991-4) [facility] W/PLT COUNT & AUTO [id number] 13:14:00 Test Item Value Reference Range Interpretation Comments WHITE BLOOD CELL COUNT (BEAKER) 8.3 K/ L 3.5-10.5 (test code = 775) RED BLOOD CELL COUNT (BEAKER) 4.62 M/ L 4.63-6.08 L (test code = 761) HEMOGLOBIN (BEAKER) (test code = 14.1 GM/DL 13.7-17.5 410) HEMATOCRIT (BEAKER) (test code = 43.8 % 40.1-51.0 411) MEAN CORPUSCULAR VOLUME (BEAKER) 94.8 fL 79.0-92.2 H (test code = 753) MEAN CORPUSCULAR HEMOGLOBIN 30.5 pg 25.7-32.2 (BEAKER) (test code = 751) MEAN CORPUSCULAR HEMOGLOBIN CONC 32.2 GM/DL 32.3-36.5 L (BEAKER) (test code = 752) RED CELL DISTRIBUTION WIDTH 13.6 % 11.6-14.4 (BEAKER) (test code = 412) PLATELET COUNT (BEAKER) (test 179 K/CU MM 150-450 code = 756) MEAN PLATELET VOLUME (BEAKER) 11.0 fL 9.4-12.4 (test code = 754) NUCLEATED RED BLOOD CELLS 0 /100 WBC 0-0 (BEAKER) (test code = 413) NEUTROPHILS RELATIVE PERCENT 60 % (BEAKER) (test code = 429) LYMPHOCYTES RELATIVE PERCENT 29 % (BEAKER) (test code = 430) MONOCYTES RELATIVE PERCENT 9 % (BEAKER) (test code = 431) EOSINOPHILS RELATIVE PERCENT 1 % (BEAKER) (test code = 432) BASOPHILS RELATIVE PERCENT 1 % (BEAKER) (test code = 437) NEUTROPHILS ABSOLUTE COUNT 5.03 K/ L 1.78-5.38 (BEAKER) (test code = 670) LYMPHOCYTES ABSOLUTE COUNT 2.40 K/ L 1.32-3.57 (BEAKER) (test code = 414) MONOCYTES ABSOLUTE COUNT (BEAKER) 0.74 K/ L 0.30-0.82 (test code = 415) EOSINOPHILS ABSOLUTE COUNT 0.07 K/ L 0.04-0.54 (BEAKER) (test code = 416) BASOPHILS ABSOLUTE COUNT (BEAKER) 0.07 K/ L 0.01-0.08 (test code = 417) IMMATURE GRANULOCYTES-RELATIVE 0 % 0-1 PERCENT (BEAKER) (test code = 2801) MR, BRAIN, WITHOUT IV [id number] 10:00:00FINAL REPORT History: Numbness and tinglingComparison studies: Brain MRI 02/23/2019. Technique: Sagittal and axial T2 FS, axial DWI, axial T2*GRE, axial T1 FLAIR and axial coronalT2 FLAIR.Intravenous contrast: None Findings: Scalp: Normal in signal. No masses.Bone marrow: Normalin signal intensity. Brain sulci: Appropriate for age.Ventricles: Normal in size. No hydrocephalus.Extra axial spaces: No mass, no fluid collection. Parenchyma:No mass, hemorrhage or acute ischemia. A few scattered T2 FLAIR hyperintense foci in the supratentorial white matter are nonspecific but most compatible with chronic microvascular ischemic changes. Suprasellar region: No abnormalities.Craniocervical junction: Patent foramen magnum. No Chiari malformation.Vessels: Normal flow-voids in the garrick carmencita and sinuses. Known small left supraclinoid ICA aneurysm is seen to better advantage on the MRI of 02/23/2019. Incidental findings: Nonspecific mild persistent inflammatory mucosal thickening rightmaxillary sinus. Previous inflammatory changes in the left maxillary sinus have resolved. IMPRESSION: 1.No significant changes from the prior brain MRI 03/03/2019.2.Mild supratentorial chronic microvascular ischemic changes.3.Known small left supraclinoid ICA aneurysm which is better visualized on theintracranial MRA of 03/03/2019. Signed: Lamine Hussein Verified Date/Time: 05/03/2019 10:00:48 Reading Location: [facility] Room [address] [place] [address] CBC W/PLT COUNT & AUTO [id number] 06:59:00 Test Item Value Reference Range Interpretation Comments WHITE BLOOD CELL COUNT (BEAKER) 12.7 K/ L 3.5-10.5 H (test code = 775) RED BLOOD CELL COUNT (BEAKER) 4.59 M/ L 4.63-6.08 L (test code = 761) HEMOGLOBIN (BEAKER) (test code = 13.6 GM/DL 13.7-17.5 L 410) HEMATOCRIT (BEAKER) (test code = 43.3 % 40.1-51.0 411) MEAN CORPUSCULAR VOLUME (BEAKER) 94.3 fL 79.0-92.2 H (test code = 753) MEAN CORPUSCULAR HEMOGLOBIN 29.6 pg 25.7-32.2 (BEAKER) (test code = 751) MEAN CORPUSCULAR HEMOGLOBIN CONC 31.4 GM/DL 32.3-36.5 L (BEAKER) (test code = 752) RED CELL DISTRIBUTION WIDTH 14.2 % 11.6-14.4 (BEAKER) (test code = 412) PLATELET COUNT (BEAKER) (test 193 K/CU MM 150-450 code = 756) MEAN PLATELET VOLUME (BEAKER) 11.9 fL 9.4-12.4 (test code = 754) NUCLEATED RED BLOOD CELLS 0 /100 WBC 0-0 (BEAKER) (test code = 413) NEUTROPHILS RELATIVE PERCENT 82 % (BEAKER) (test code = 429) LYMPHOCYTES RELATIVE PERCENT 13 % (BEAKER) (test code = 430) MONOCYTES RELATIVE PERCENT 4 % (BEAKER) (test code = 431) EOSINOPHILS RELATIVE PERCENT 0 % (BEAKER) (test code = 432) BASOPHILS RELATIVE PERCENT 0 % (BEAKER) (test code = 437) NEUTROPHILS ABSOLUTE COUNT 10.31 K/ L 1.78-5.38 H (BEAKER) (test code = 670) LYMPHOCYTES ABSOLUTE COUNT 1.70 K/ L 1.32-3.57 (BEAKER) (test code = 414) MONOCYTES ABSOLUTE COUNT (BEAKER) 0.54 K/ L 0.30-0.82 (test code = 415) EOSINOPHILS ABSOLUTE COUNT 0.00 K/ L 0.04-0.54 L (BEAKER) (test code = 416) BASOPHILS ABSOLUTE COUNT (BEAKER) 0.04 K/ L 0.01-0.08 (test code = 417) IMMATURE GRANULOCYTES-RELATIVE 1 % 0-1 PERCENT (BEAKER) (test code = 2801) BASIC METABOLIC [id number] 06:03:00 Test Item Value Reference Range Interpretation Comments SODIUM (BEAKER) 137 meq/L 136-145 (test code = 381) POTASSIUM (BEAKER) 3.9 meq/L 3.5-5.1 (test code = 379) CHLORIDE (BEAKER) 102 meq/L 98-107 (test code = 382) CO2 (BEAKER) (test 25 meq/L 22-29 code = 355) BLOOD UREA NITROGEN 14 mg/dL 7-21 (BEAKER) (test code = 354) CREATININE (BEAKER) 0.71 mg/dL 0.57-1.25 (test code = 358) GLUCOSE RANDOM 113 mg/dL 70-105 H (BEAKER) (test code = 652) CALCIUM (BEAKER) 9.5 mg/dL 8.4-10.2 (test code = 697) EGFR (BEAKER) (test 112 mL/min/1.73 ESTIM ATED GFR IS code = 1092) sq m NOT ACCURATE CREATININE CLEARANCE IN PREDICTING GLOMERULAR FILTRATION RATE . ESTIMATED GFR I S NOT APPLICABLE FOR DIALYSIS PATIEN TS. HEMOGLOBIN [id number] 08:52:00 Test Item Value Reference Range Interpretation Comments HEMOGLOBIN A1C (BEAKER) (test code = 5.8 % 4.3-6.1 368) LIPID [id number] 06:11:00 Test Item Value Reference Range Interpretation Comments TRIGLYCERIDES (BEAKER) (test code = 73 mg/dL 540) CHOLESTEROL (BEAKER) (test code = 111 mg/dL 631) HDL CHOLESTEROL (BEAKER) (test code 36 mg/dL = 976) LDL CHOLESTEROL CALCULATED (BEAKER) 60 mg/dL (test code = 633) Triglyceride Reference Range: Low Risk <150 Borderline 150-199 High Risk 200-499 Very High Risk >=500Cholesterol Reference Range: Low Risk <200 Borderline 200-239 High Risk >240HDL Cholesterol Reference Range: Low Risk >=60 High Risk <40LDL Cholesterol Reference Range: Optimal <100 Near Optimal 100-129 Borderline 130-159 High 160-189 Very High >=190 FastingBASIC METABOLIC [id number] 06:11:00 Test Item Value Reference Range Interpretation Comments SODIUM (BEAKER) 141 meq/L 136-145 (test code = 381) POTASSIUM (BEAKER) 3.7 meq/L 3.5-5.1 (test code = 379) CHLORIDE (BEAKER) 108 meq/L 98-107 H (test code = 382) CO2 (BEAKER) (test 25 meq/L 22-29 code = 355) BLOOD UREA NITROGEN 15 mg/dL 7-21 (BEAKER) (test code = 354) CREATININE (BEAKER) 0.77 mg/dL 0.57-1.25 (test code = 358) GLUCOSE RANDOM 96 mg/dL 70-105 (BEAKER) (test code = 652) CALCIUM (BEAKER) 9.1 mg/dL 8.4-10.2 (test code = 697) EGFR (BEAKER) (test 102 mL/min/1.73 ESTIM ATED GFR IS code = 1092) sq m NOT ACCURATE CREATININE CLEARANCE IN PREDICTING GLOMERULAR FILTRATION RATE . ESTIMATED GFR I S NOT APPLICABLE FOR DIALYSIS MICHAELA TS. FastingCBC W/PLT COUNT & AUTO [id number] 05:06:00 Test Item Value Reference Range Interpretation Comments WHITE BLOOD CELL COUNT (BEAKER) 8.8 K/ L 3.5-10.5 (test code = 775) RED BLOOD CELL COUNT (BEAKER) 4.42 M/ L 4.63-6.08 L (test code = 761) HEMOGLOBIN (BEAKER) (test code = 13.2 GM/DL 13.7-17.5 L 410) HEMATOCRIT (BEAKER) (test code = 42.2 % 40.1-51.0 411) MEAN CORPUSCULAR VOLUME (BEAKER) 95.5 fL 79.0-92.2 H (test code = 753) MEAN CORPUSCULAR HEMOGLOBIN 29.9 pg 25.7-32.2 (BEAKER) (test code = 751) MEAN CORPUSCULAR HEMOGLOBIN CONC 31.3 GM/DL 32.3-36.5 L (BEAKER) (test code = 752) RED CELL DISTRIBUTION WIDTH 14.2 % 11.6-14.4 (BEAKER) (test code = 412) PLATELET COUNT (BEAKER) (test 161 K/CU MM 150-450 code = 756) MEAN PLATELET VOLUME (BEAKER) 12.1 fL 9.4-12.4 (test code = 754) NUCLEATED RED BLOOD CELLS 0 /100 WBC 0-0 (BEAKER) (test code = 413) NEUTROPHILS RELATIVE PERCENT 53 % (BEAKER) (test code = 429) LYMPHOCYTES RELATIVE PERCENT 36 % (BEAKER) (test code = 430) MONOCYTES RELATIVE PERCENT 9 % (BEAKER) (test code = 431) EOSINOPHILS RELATIVE PERCENT 2 % (BEAKER) (test code = 432) BASOPHILS RELATIVE PERCENT 1 % (BEAKER) (test code = 437) NEUTROPHILS ABSOLUTE COUNT 4.64 K/ L 1.78-5.38 (BEAKER) (test code = 670) LYMPHOCYTES ABSOLUTE COUNT 3.18 K/ L 1.32-3.57 (BEAKER) (test code = 414) MONOCYTES ABSOLUTE COUNT (BEAKER) 0.76 K/ L 0.30-0.82 (test code = 415) EOSINOPHILS ABSOLUTE COUNT 0.16 K/ L 0.04-0.54 (BEAKER) (test code = 416) BASOPHILS ABSOLUTE COUNT (BEAKER) 0.05 K/ L 0.01-0.08 (test code = 417) IMMATURE GRANULOCYTES-RELATIVE 0 % 0-1 PERCENT (BEAKER) (test code = 2801) TSH/FREE T4 IF [id number] 19:14:00 Test Item Value Reference Range Interpretation Comments THYROID STIMULATING HORMONE 0.53 uIU/mL 0.35-4.94 (BEAKER) (test code = 772) VITAMIN B12 AND [id number] 19:14:00 Test Item Value Reference Range Interpretation Comments VITAMIN B12 (BEAKER) (test code = 660 pg/mL 213-816 774) FOLATE (BEAKER) (test code = 362) 6.9 ng/mL >=7.0 L BASIC METABOLIC [id number] 18:39:00 Test Item Value Reference Range Interpretation Comments SODIUM (BEAKER) 141 meq/L 136-145 (test code = 381) POTASSIUM (BEAKER) 4.1 meq/L 3.5-5.1 (test code = 379) CHLORIDE (BEAKER) 107 meq/L 98-107 (test code = 382) CO2 (BEAKER) (test 26 meq/L 22-29 code = 355) BLOOD UREA NITROGEN 14 mg/dL 7-21 (BEAKER) (test code = 354) CREATININE (BEAKER) 0.77 mg/dL 0.57-1.25 (test code = 358) GLUCOSE RANDOM 99 mg/dL 70-105 (BEAKER) (test code = 652) CALCIUM (BEAKER) 9.5 mg/dL 8.4-10.2 (test code = 697) EGFR (BEAKER) (test 102 mL/min/1.73 ESTIM ATED GFR IS code = 1092) sq m NOT ACCURATE CREATININE CLEARANCE IN PREDICTING GLOMERULAR FILTRATION RATE . ESTIMATED GFR I S NOT APPLICABLE FOR DIALYSIS PATIEN TS. MR, BRAIN, WITHOUT [id number] 16:16:00Reason for exam:->StrokeWhat is the patient's sedation requirement?->No SedationFINAL REPORT MRI brain without contrast. INDICATION: Stroke TECHNIQUE: Multiplanar, multisequence MR imaging of the brain was performed utilizing the following imaging sequences: Axial T1, T2, FLAIR, GRE, and DWI; sagittal and coronal T1- weighted images. COMPARISON: None available. FINDINGS: There is [...] None available. TECHNIQUE: 2 D and 3-D [id number] MRA images of the intra- and extracranial carotid and vertebral arterial circulations were obtained, from which maximal intensity projection 3-D reconstructions were created. FINDINGS: MRA neck: There ismild (approximately 20% by NASCET criteria) narrowing of the proximal left ICA just above the bulb. There is significant stenosis identified in the right cervical carotid artery. No hemodynamically significant stenosis identified in the vertebral artery, flow is antegrade in both vertebral arteries. MRA [place]: There is a inferiorly to the 2 mm outpouching arising from the supraclinoid left ICA, compatible with a small aneurysm. No evidence of hemodynamically significant stenosis, or major branch vessel occlusion. IMPRESSION: 1. Mild narrowing of the proximal left cervical ICA. 2. A2 mm aneurysm arising from the left supraclinoid ICA, follow-up is recommended. Correlation with CTAor conventional angiogram can be considered if clinically appropriate. Signed: Regine Mooney MDReport Verified Date/Time: 03/03/2019 16:16:12 Reading Location: [address] Neuro Reading Room MR, MRA, BRAIN, WITHOUT [id number] 16:16:00Reason for exam:- >Ischemic Stroke EvaluationFINAL REPORT MRI brain without contrast. INDICATION: Stroke [...] None available. TECHNIQUE: 2 D and 3-D [id number] MRA images of the intra- and extracranial carotid and vertebral arterial circulations were obtained, from which maximal intensity projection 3-D reconstructions were created. FINDINGS: MRA neck: There ismild (approximately 20% by NASCET criteria) narrowing of the proximal left ICA just above the bulb. There is significant stenosis identified in the right cervical carotid artery. No hemodynamically significant stenosis identified in the vertebral artery, flow is antegrade in both vertebral arteries. MRA [place]: There is a inferiorly to the 2 mm outpouching arising from the supraclinoid left ICA, compatible with a small aneurysm. No evidence of hemodynamically significant stenosis, or major branch vessel occlusion. IMPRESSION: 1. Mild narrowing of the proximal left cervical ICA. 2. A2 mm aneurysm arising from the left supraclinoid ICA, follow-up is recommended. Correlation with CTAor conventional angiogram can be considered if clinically appropriate. Signed: Regine Mooney MDReport Verified Date/Time: 03/03/2019 16:16:12 Reading Location: [address] Neuro Reading Room MR, MRA, NECK, WITHOUT IV [id number] 16:16:00Reason for exam:->Ischemic Stroke EvaluationFINAL REPORT MRI brain without contrast. INDICATION: Stroke TECHNIQUE: Multiplanar, multisequence MR imaging of the brain was performed utilizing the following imaging sequences: Axial T1, T2, FLAIR, GRE, and DWI; sagittal and coronal T1-weighted images. COMPARISON: None availab le. FINDINGS: There is no evidence for acute [...] None available. TECHNIQUE: 2 D and 3-D [id number] MRA images of the intra- and extracranial carotid and vertebral arterial circulations were obtained, from which maximal intensity projection 3-D reconstructions were created. FINDINGS: MRA neck: There ismild (approximately 20% by NASCET criteria) narrowing of the proximal left ICA just above the bulb. There is significant stenosis identified in the right cervical carotid artery. No hemodynamically significant stenosis identified in the vertebral artery, flow is antegrade in both vertebral arteries. MRA [place]: There is a inferiorly to the 2 mm outpouching arising from the supraclinoid left ICA, compatible with a small aneurysm. No evidence of hemodynamically significant stenosis, or major branch vessel occlusion. IMPRESSION: 1. Mild narrowing of the proximal left cervical ICA. 2. A2 mm aneurysm arising from the left supraclinoid ICA, follow-up is recommended. Correlation with CTAor conventional angiogram can be considered if clinically appropriate. Signed: Regine Mooney MDReport Verified Date/Time: 03/03/2019 16:16:12 Reading Location: [address] Neuro Reading Room LID [id number] 04:08:00 Test Item Value Reference Range Interpretation Comments TRIGLYCERIDES (BEAKER) (test code = 62 mg/dL 540) CHOLESTEROL (BEAKER) (test code = 123 mg/dL 631) HDL CHOLESTEROL (BEAKER) (test code 40 mg/dL = 976) LDL CHOLESTEROL CALCULATED (BEAKER) 71 mg/dL (test code = 633) Triglyceride Reference Range: Low Risk <150 Borderline 150-199 High Risk 200-499 Very High Risk >=500Cholesterol Reference Range: Low Risk <200 Borderline 200-239 High Risk >240HDL Cholesterol Reference Range: Low Risk >=60 High Risk <40LDL Cholesterol Reference Range: Optimal <100 Near Optimal 100-129 Borderline 130-159 High 160-189 Very High >=190 FastingBASIC METABOLIC [id number] 04:08:00 Test Item Value Reference Range Interpretation Comments SODIUM (BEAKER) 142 meq/L 136-145 (test code = 381) POTASSIUM (BEAKER) 4.1 meq/L 3.5-5.1 (test code = 379) CHLORIDE (BEAKER) 109 meq/L 98-107 H (test code = 382) CO2 (BEAKER) (test 27 meq/L 22-29 code = 355) BLOOD UREA NITROGEN 15 mg/dL 7-21 (BEAKER) (test code = 354) CREATININE (BEAKER) 0.74 mg/dL 0.57-1.25 (test code = 358) GLUCOSE RANDOM 104 mg/dL 70-105 (BEAKER) (test code = 652) CALCIUM (BEAKER) 9.3 mg/dL 8.4-10.2 (test code = 697) EGFR (BEAKER) (test 107 mL/min/1.73 ESTIM ATED GFR IS code = 1092) sq m NOT ACCURATE CREATININE CLEARANCE IN PREDICTING GLOMERULAR FILTRATION RATE . ESTIMATED GFR I S NOT APPLICABLE FOR DIALYSIS PATIEN TS. FastingCBC W/PLT COUNT & AUTO [id number] 03:54:00 Test Item Value Reference Range Interpretation Comments WHITE BLOOD CELL COUNT (BEAKER) 8.7 K/ L 3.5-10.5 (test code = 775) RED BLOOD CELL COUNT (BEAKER) 4.30 M/ L 4.63-6.08 L (test code = 761) HEMOGLOBIN (BEAKER) (test code = 12.7 GM/DL 13.7-17.5 L 410) HEMATOCRIT (BEAKER) (test code = 40.7 % 40.1-51.0 411) MEAN CORPUSCULAR VOLUME (BEAKER) 94.7 fL 79.0-92.2 H (test code = 753) MEAN CORPUSCULAR HEMOGLOBIN 29.5 pg 25.7-32.2 (BEAKER) (test code = 751) MEAN CORPUSCULAR HEMOGLOBIN CONC 31.2 GM/DL 32.3-36.5 L (BEAKER) (test code = 752) RED CELL DISTRIBUTION WIDTH 14.3 % 11.6-14.4 (BEAKER) (test code = 412) PLATELET COUNT (BEAKER) (test 142 K/CU MM 150-450 L code = 756) MEAN PLATELET VOLUME (BEAKER) 11.5 fL 9.4-12.4 (test code = 754) NUCLEATED RED BLOOD CELLS 0 /100 WBC 0-0 (BEAKER) (test code = 413) NEUTROPHILS RELATIVE PERCENT 55 % (BEAKER) (test code = 429) LYMPHOCYTES RELATIVE PERCENT 33 % (BEAKER) (test code = 430) MONOCYTES RELATIVE PERCENT 9 % (BEAKER) (test code = 431) EOSINOPHILS RELATIVE PERCENT 1 % (BEAKER) (test code = 432) BASOPHILS RELATIVE PERCENT 1 % (BEAKER) (test code = 437) NEUTROPHILS ABSOLUTE COUNT 4.84 K/ L 1.78-5.38 (BEAKER) (test code = 670) LYMPHOCYTES ABSOLUTE COUNT 2.87 K/ L 1.32-3.57 (BEAKER) (test code = 414) MONOCYTES ABSOLUTE COUNT (BEAKER) 0.82 K/ L 0.30-0.82 (test code = 415) EOSINOPHILS ABSOLUTE COUNT 0.12 K/ L 0.04-0.54 (BEAKER) (test code = 416) BASOPHILS ABSOLUTE COUNT (BEAKER) 0.05 K/ L 0.01-0.08 (test code = 417) IMMATURE GRANULOCYTES-RELATIVE 0 % 0-1 PERCENT (BEAKER) (test code = 2801) CBC W/PLT COUNT & AUTO [id number] 20:55:00 Test Item Value Reference Range Interpretation Comments WHITE BLOOD CELL COUNT (BEAKER) 10.4 K/ L 3.5-10.5 (test code = 775) RED BLOOD CELL COUNT (BEAKER) 4.29 M/ L 4.63-6.08 L (test code = 761) HEMOGLOBIN (BEAKER) (test code = 12.9 GM/DL 13.7-17.5 L 410) HEMATOCRIT (BEAKER) (test code = 40.3 % 40.1-51.0 411) MEAN CORPUSCULAR VOLUME (BEAKER) 93.9 fL 79.0-92.2 H (test code = 753) MEAN CORPUSCULAR HEMOGLOBIN 30.1 pg 25.7-32.2 (BEAKER) (test code = 751) MEAN CORPUSCULAR HEMOGLOBIN CONC 32.0 GM/DL 32.3-36.5 L (BEAKER) (test code = 752) RED CELL DISTRIBUTION WIDTH 14.3 % 11.6-14.4 (BEAKER) (test code = 412) PLATELET COUNT (BEAKER) (test 157 K/CU MM 150-450 code = 756) MEAN PLATELET VOLUME (BEAKER) 11.6 fL 9.4-12.4 (test code = 754) NUCLEATED RED BLOOD CELLS 0 /100 WBC 0-0 (BEAKER) (test code = 413) NEUTROPHILS RELATIVE PERCENT 79 % (BEAKER) (test code = 429) LYMPHOCYTES RELATIVE PERCENT 15 % (BEAKER) (test code = 430) MONOCYTES RELATIVE PERCENT 5 % (BEAKER) (test code = 431) EOSINOPHILS RELATIVE PERCENT 0 % (BEAKER) (test code = 432) BASOPHILS RELATIVE PERCENT 0 % (BEAKER) (test code = 437) NEUTROPHILS ABSOLUTE COUNT 8.27 K/ L 1.78-5.38 H (BEAKER) (test code = 670) LYMPHOCYTES ABSOLUTE COUNT 1.56 K/ L 1.32-3.57 (BEAKER) (test code = 414) MONOCYTES ABSOLUTE COUNT (BEAKER) 0.49 K/ L 0.30-0.82 (test code = 415) EOSINOPHILS ABSOLUTE COUNT 0.02 K/ L 0.04-0.54 L (BEAKER) (test code = 416) BASOPHILS ABSOLUTE COUNT (BEAKER) 0.03 K/ L 0.01-0.08 (test code = 417) IMMATURE GRANULOCYTES-RELATIVE 0 % 0-1 PERCENT (BEAKER) (test code = 2801) BASIC METABOLIC [id number] 20:44:00 Test Item Value Reference Range Interpretation Comments SODIUM (BEAKER) 137 meq/L 136-145 (test code = 381) POTASSIUM (BEAKER) 4.2 meq/L 3.5-5.1 (test code = 379) CHLORIDE (BEAKER) 104 meq/L 98-107 (test code = 382) CO2 (BEAKER) (test 23 meq/L 22-29 code = 355) BLOOD UREA NITROGEN 17 mg/dL 7-21 (AKER) (test code = 354) CREATININE (BEAKER) 0.81 mg/dL 0.57-1.25 (test code = 358) GLUCOSE RANDOM 108 mg/dL 70-105 H (AKER) (test code = 652) CALCIUM (BEAKER) 9.2 mg/dL 8.4-10.2 (test code = 697) EGFR (AKER) (test 97 mL/min/1.73 ESTIMA FABIAN GFR IS code = 1092) sq m NOT ACCURATE CREATININE CLEARANCE IN PREDICTING GLOMERULAR FILTRATION RATE . ESTIMATED GFR I S NOT APPLICABLE FOR DIALYSIS PATIEN TS.
[2021-03-15 20:51] LABS: Urine Blood Negative (Negative); Urine Glucose Negative (Negative); Urine Protein Negative (Negative); Urine pH 5.5 (5.0-7.0)
[2021-03-15] MEDS ORDERED: MORPHINE 2 MG/ML SYR ONE (20:53)
[2021-03-15] MEDS ORDERED: ONDANSETRON 4 MG/2 ML VIAL ONE (20:53)
[2021-03-15] MEDS ORDERED: NA CHLORIDE 0.9% 500 ML ONE (20:53)
--- NOTE | 2021-03-15 21:00 | RAD REPORT ---
EXAM DESCRIPTION: CT - Spine Lumbar Wo Con - 03/15/2021 8:37 pm CLINICAL HISTORY: Radiculopathy. LOWER BACK PAIN COMPARISON: <Comparisons> TECHNIQUE: Axial noncontrast CT imaging of the lumbar spine was performed with coronal and sagittal re-formatted images. All CT scans are performed using dose optimization technique as appropriate and may include automated exposure control or mA/KV adjustment according to patient size. FINDINGS: No acute lumbar spine fracture seen. No aggressive marrow pattern or malalignment. Paraspinal tissues are normal in thickness. No paraspinal abscess or hematoma seen. Aortoiliac athero sclerotic vascular calcification. Multilevel degenerative spondylosis of the lower lumbar spine is present. Spinal canal stenosis is li stephanie present L3-4, L4-5. Vacuum disc degeneration is present at L3-4 and L5-S1. IMPRESSION: No acute lumbar spine abnormality. Moderately severe mid and lower lumbar degenerative spondylosis.
[2021-03-15 21:10] LABS: Absolute Lymphocytes (CBC) 2.1 K/uL (0.7-4.9); Basophils % 0.3 % (0-1.3); Hematocrit 43.3 % (39.6-49.0); Lymphocytes % 21.2 % (15.3-44.8); MPV 9.6 fL (7.6-11.3); RBC Red Blood Cell Count 4.72 M/uL (4.33-5.43)
--- NOTE | 2021-03-15 21:11 | RAD REPORT ---
EXAM DESCRIPTION: RAD - Femur Left - 03/15/2021 9:01 pm CLINICAL HISTORY: PAIN COMPARISON: No comparisons FINDINGS: Mild osteoarthritis is seen affecting the left hip. No fracture, dislocation or AVN patter n observed.
--- NOTE | 2021-03-15 21:12 | RAD REPORT ---
EXAM DESCRIPTION: RAD - Pelvis - 03/15/2021 9:00 pm CLINICAL HISTORY: PAIN COMPARISON: No comparisons FINDINGS: [id number] osteoarthritis involves both hips, greater on the right. No fracture, dis location or AVN.
[2021-03-15 21:25] LABS: Albumin 3.9 g/dL (3.4-5.0); Bilirubin Total 0.6 mg/dL (0.2-1.0); Potassium 4.1 mmol/L (3.5-5.1); Protein, Total 7.4 g/dL (6.4-8.2)
--- NOTE | 2021-03-15 21:30 | ER ---
Nurse's Notes [facility] Name: John Moreno Age: 65 yrs Sex: Male : 1955 Arrival Date: 03/15/2021 Time: 17:44 Bed 2 Private MD: Diagnosis: Pain in left hip;Osteoarthritis of hip;Spondylolysis, lumbar region Presentation: 03/15 18:17 Chief complaint: Patient states: "I am having left hip pain that comes to my back. jd3 worsening pain with movement.". Coronavirus screen: At this time, the client does not indicate any symptoms associated with coronavirus-19. Ebola Screen: Patient negative for fever greater than or equal to 101.5 degrees Fahrenheit, and additional compatible Ebola Virus Disease symptoms. Initial Sepsis Screen: Does the patient meet any 2 criteria? No. Patient's initial sepsis screen is negative. Does the patient have a suspected source of infection? No. Patient's initial sepsis screen is negative. Risk Assessment: Do you want to hurt yourself or someone else? Patient reports no desire to harm self or others. Onset of symptoms was March 13, 2021. 18:17 Method Of Arrival: Ambulatory jd3 18:17 Acuity: JEFFRY 3 jd3 Historical: - Allergies: 18:19 No Known Allergies; jd3 - Home Meds: 18:19 amlodipine 10 mg tab [Active]; atorvastatin 10 mg Oral tab [Active]; losartan 50 mg jd3 Oral tab [Active]; omeprazole 40 mg Oral cpDR [Active]; 18:22 pantoprazole oral oral [Active]; Cyclobenzaprine Oral [Active]; clopidogrel oral oral jd3 [Active]; Aspirin Oral [Active]; Levofloxacin Oral [Active]; 18:22 duloxetine 30 mg oral cpDR [Active]; jd3 - PMHx: 18:19 Hyperlipidemia; Hypertension; jd3 - PSHx: 18:19 stents in both legs; jd3 - Immunization history:: Adult Immunizations unknown. - Social history:: Smoking status: . - Family history:: not pertinent. Screenin:16 Abuse screen: Denies threats or abuse. Nutritional screening: No deficits noted. ea Tuberculosis screening: No symptoms or risk factors identified. Fall Risk None identified. Assessment: 20:16 General: Appears in no apparent distress. Behavior is calm, cooperative, appropriate ea for age. Pain: Complains of pain in left hip. 21:12 Reassessment: Patient appears in no apparent distress at this time. Patient is alert, rr5 oriented x 3, equal unlabored respirations, skin warm/dry/pink. awaiting for results. 21:57 Reassessment: Patient and/or family updated on plan of care and expected duration. Pain ea level reassessed. Patient is alert, oriented x 3, equal unlabored respirations, skin warm/dry/pink. Discharge instruction given to patient verbalized the understanding of instruction. Vital Signs: 18:19 BP 160 / 87; Pulse 106; Resp 18 S; Temp 97.6(TE); Pulse Ox 99% on R/A; Weight 81.65 kg jd3 (R); Height 5 ft. 5 in. (165.10 cm) (R); Pain 8/10; 21:08 BP 162 / 83; Pulse 96; Resp 16; Pulse Ox 98% ; rr5 18:19 Body Mass Index 29.95 (81.65 kg, 165.10 cm) jd3 ED Course: 17:44 Patient arrived in ED. as 18:18 Triage completed. jd3 18:20 Arm band placed on. jd3 20:10 Derik Bhardwaj RN is Primary Nurse. rr5 20:11 Chapo Ruiz MD is Attending Physician. teddy 20:16 Patient has correct armband on for positive identification. Bed in low position. Call ea light in reach. Side rails up X2. 20:37 CT Lumbar Spine Wo Con In Process Unspecified. EDMS 20:50 Urine collected: clean catch specimen, clear. rr5 20:56 Pelvis XRAY In Process Unspecified. EDMS 20:56 Femur Left XRAY In Process Unspecified. EDMS 21:00 Inserted saline lock: 20 gauge in right antecubital area, using aseptic technique. rr5 Blood collected. 21:29 Leoncio Donaldson MD is Referral Physician. teddy 21:55 No provider procedures requiring assistance completed. IV discontinued, intact, ea bleeding controlled, No redness/swelling at site. Pressure dressing applied. Administered Medications: 21:00 Drug: Zofran (Ondansetron) 4 mg Route: IVP; Site: right antecubital; rr5 21:58 Follow up: Response: No adverse reaction ea 21:03 Drug: NS 0.9% 500 ml Route: IV; Rate: bolus; Site: right antecubital; rr5 21:57 Follow up: Response: No adverse reaction; IV Status: Completed infusion; IV Intake: ea 500ml 21:03 Drug: morphine 2 mg {Note: rass 0.} Route: IVP; Site: right antecubital; rr5 21:57 Follow up: Response: No adverse reaction ea 21:27 Not Given (Duplicate Order): SOLU-Medrol (methylPrednisoLONE) 125 mg IVP once teddy 21:38 Drug: Decadron - Dexamethasone 10 mg Route: IVP; Site: right antecubital; rr5 21:58 Follow up: Response: No adverse reaction ea 21:38 Drug: TORadol (ketorolac) 30 mg Route: IVP; Site: right antecubital; rr5 21:58 Follow up: Response: No adverse reaction ea Intake: 21:57 IV: 500ml; Total: 500ml. ea Outcome: 21:29 Discharge ordered by . teddy 21:56 Discharged to home ambulatory, with family. ea 21:56 Condition: stable 21:56 Discharge instructions given to patient, family, Instructed on discharge instructions, Demonstrated understanding of instructions, follow-up care, medications, Prescriptions given X 3. 21:58 Patient left the ED. ea Signatures: Dispatcher [employer] EDMS Chapo Ruiz MD MD cha Martinez, Amelia as Antunez, Elena RN RN Cristo Yung RN RN jd3 Derik Bhardwaj RN RN rr5 Corrections: (The following items were deleted from the chart) 18:20 18:17 Chief complaint: Patient states: "I am having left hip pain that comes to my jd3 back." jd3 18:20 18:17 Onset of symptoms was March 15, 2021 jd3 jd3
--- NOTE | 2021-03-15 21:30 | EDPHYS ---
Physician Documentation [facility] Name: John Moreno Age: 65 yrs Sex: Male : 1955 Arrival Date: 03/15/2021 Time: 17:44 Bed 2 Private MD: LARRY Physician Chapo Ruiz HPI: 03/15 20:22 This 65 yrs old Male presents to ER via Ambulatory with complaints of Hip teddy Pain, Leg Pain. 20:22 The patient or guardian reports pain. that occurred at an unknown site. The complaints teddy affect the left leg. The complaints affect the left quadriceps. Onset: The symptoms/episode began/occurred 2 week(s) ago. Modifying factors: The symptoms are alleviated by nothing, the symptoms are aggravated by nothing. Associated signs and symptoms: Loss of consciousness: the patient experienced no loss of consciousness. Severity of symptoms: At their worst the symptoms were mild, in the emergency department the symptoms are unchanged. The patient has not experienced similar symptoms in the past. Historical: - Allergies: 18:19 No Known Allergies; jd3 - Home Meds: 18:19 amlodipine 10 mg tab [Active]; atorvastatin 10 mg Oral tab [Active]; losartan 50 mg jd3 Oral tab [Active]; omeprazole 40 mg Oral cpDR [Active]; 18:22 pantoprazole oral oral [Active]; Cyclobenzaprine Oral [Active]; clopidogrel oral oral jd3 [Active]; Aspirin Oral [Active]; Levofloxacin Oral [Active]; 18:22 duloxetine 30 mg oral cpDR [Active]; jd3 - PMHx: 18:19 Hyperlipidemia; Hypertension; jd3 - PSHx: 18:19 stents in both legs; jd3 - Immunization history:: Adult Immunizations unknown. - Social history:: Smoking status: . - Family history:: not pertinent. ROS: 20:22 Constitutional: Negative for fever, chills, and weight loss, Eyes: Negative for injury, teddy pain, redness, and discharge, ENT: Negative for injury, pain, and discharge, Neck: Negative for injury, pain, and swelling, Cardiovascular: Negative for chest pain, palpitations, and edema, Respiratory: Negative for shortness of breath, cough, wheezing, and pleuritic chest pain, Abdomen/GI: Negative for abdominal pain, nausea, vomiting, diarrhea, and constipation, Back: Negative for injury and pain, : Negative for injury, bleeding, discharge, and swelling, Skin: Negative for injury, rash, and discoloration, Neuro: Negative for headache, weakness, numbness, tingling, and seizure, Psych: Negative for depression, anxiety, suicide ideation, homicidal ideation, and hallucinations, Allergy/Immunology: Negative for hives, rash, and allergies, Endocrine: Negative for neck swelling, polydipsia, polyuria, polyphagia, and marked weight changes, Hematologic/Lymphatic: Negative for swollen nodes, abnormal bleeding, and unusual bruising. 20:22 MS/extremity: Positive for pain, of the back and left hip. Exam: 20:22 Constitutional: This is a well developed, well nourished patient who is awake, alert, teddy and in no acute distress. Head/Face: Normocephalic, atraumatic. Eyes: Pupils equal round and reactive to light, extra-ocular motions intact. Lids and lashes normal. Conjunctiva and sclera are non-icteric and not injected. Cornea within normal limits. Periorbital areas with no swelling, redness, or edema. ENT: Nares patent. No nasal discharge, no septal abnormalities noted. Tympanic membranes are normal and external auditory canals are clear. Oropharynx with no redness, swelling, or masses, exudates, or evidence of obstruction, uvula midline. Mucous membranes moist. Neck: Trachea midline, no thyromegaly or masses palpated, and no cervical lymphadenopathy. Supple, full range of motion without nuchal rigidity, or vertebral point tenderness. No Meningismus. Chest/axilla: Normal chest wall appearance and motion. Nontender with no deformity. No lesions are appreciated. Cardiovascular: Regular rate and rhythm with a normal S1 and S2. No gallops, murmurs, or rubs. Normal PMI, no JVD. No pulse deficits. Respiratory: Lungs have equal breath sounds bilaterally, clear to auscultation and percussion. No rales, rhonchi or wheezes noted. No increased work of breathing, no retractions or nasal flaring. Abdomen/GI: Soft, non-tender, with normal bowel sounds. No distension or tympany. No guarding or rebound. No evidence of tenderness throughout. Back: No spinal tenderness. No costovertebral tenderness. Full range of motion. Skin: Warm, dry with normal turgor. Normal color with no rashes, no lesions, and no evidence of cellulitis. MS/ Extremity: Pulses equal, no cyanosis. Neurovascular intact. Full, normal range of motion. Neuro: Awake and alert, GCS 15, oriented to person, place, time, and situation. Cranial nerves II-XII grossly intact. Motor strength 5/5 in all extremities. Sensory grossly intact. Cerebellar exam normal. Normal gait. Psych: Awake, alert, with orientation to person, place and time. Behavior, mood, and affect are within normal limits. 20:33 Musculoskeletal/extremity: Extremities: all appear grossly normal, with no appreciated teddy pain with palpation, ROM: intact in all extremities, full active range of motion, full passive range of motion, Circulation is intact in all extremities. Pulses: noted to be 4+ in the bilateral radial, brachial, femoral, popliteal, posterior tibial and and dorsalis pedis arteries., Sensation intact. Compartment Syndrome exam of affected extremity: is normal. Joints: All joints appear normal with full range of motion. Weight bearing: able to fully bear weight, DVT Exam: No signs of deep vein thrombosis. no pain, no swelling, no tenderness, negative Homans' sign noted on exam, no appreciated bluish discoloration, no erythema, no increased warmth. Vital Signs: 18:19 BP 160 / 87; Pulse 106; Resp 18 S; Temp 97.6(TE); Pulse Ox 99% on R/A; Weight 81.65 kg jd3 (R); Height 5 ft. 5 in. (165.10 cm) (R); Pain 8/10; 21:08 BP 162 / 83; Pulse 96; Resp 16; Pulse Ox 98% ; rr5 18:19 Body Mass Index 29.95 (81.65 kg, 165.10 cm) jd3 MDM: 20:11 Patient medically screened. teddy 20:24 Differential diagnosis: bursitis, arthritis. Data reviewed: vital signs, nurses notes, [facility] lab test result(s), EKG, radiologic studies, plain films. Data interpreted: media monitor: rate is 106 beats/min, rhythm is regular, Pulse oximetry: on room air is 99 %. Test interpretation: by ED physician or midlevel provider: plain radiologic studies. 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 03/15 20:21 Order name: CBC with Diff; Complete Time: 21:25 [facility] 03/15 20:21 Order name: Comprehensive Metabolic Panel; Complete Time: 21:27 teddy 03/15 20:21 Order name: Pelvis XRAY; Complete Time: 21:25 [facility] 03/15 20:21 Order name: CT Lumbar Spine Wo Con; Complete Time: 21:25 teddy 03/15 20:25 Order name: Femur Left XRAY; Complete Time: 21:25 [facility] 03/15 20:50 Order name: Urine Dipstick-Ancillary; Complete Time: 21:25 EDMS 03/15 20:21 Order name: Urine Dipstick-Ancillary (obtain specimen); Complete Time: 20:52 [facility] Administered Medications: 21:00 Drug: Zofran (Ondansetron) 4 mg Route: IVP; Site: right antecubital; rr5 21:58 Follow up: Response: No adverse reaction ea 21:03 Drug: NS 0.9% 500 ml Route: IV; Rate: bolus; Site: right antecubital; rr5 21:57 Follow up: Response: No adverse reaction; IV Status: Completed infusion; IV Intake: ea 500ml 21:03 Drug: morphine 2 mg {Note: rass 0.} Route: IVP; Site: right antecubital; rr5 21:57 Follow up: Response: No adverse reaction ea 21:27 Not Given (Duplicate Order): SOLU-Medrol (methylPrednisoLONE) 125 mg IVP once teddy 21:38 Drug: Decadron - Dexamethasone 10 mg Route: IVP; Site: right antecubital; rr5 21:58 Follow up: Response: No adverse reaction ea 21:38 Drug: TORadol (ketorolac) 30 mg Route: IVP; Site: right antecubital; rr5 21:58 Follow up: Response: No adverse reaction ea Disposition: 03/15/21 21:29 Discharged to Home. Impression: Pain in left hip, Osteoarthritis of hip, Spondylolysis, lumbar region. - Condition is Stable. - Discharge Instructions: Joint Pain, Arthritis, Musculoskeletal Pain, Hip Pain, Arthritis, [id number], Joint Pain, [id number]. - Prescriptions for Tylenol- Codeine #3 300-30 mg Oral Tablet - take 2 tablets by ORAL route every 4-6 hours As needed; 20 tablet. dexamethasone 2 mg Oral tablet - take 1 tablet by ORAL route 3 times per day; 15 tablet. Ibuprofen 600 mg Oral Tablet - take 1 tablet by ORAL route every 6 hours As needed take with food; 20 tablet. - Medication Reconciliation Form, Thank You Letter, Antibiotic Education, Prescription Opioid Use form. - Follow up: Private Physician; When: 2 - 3 days; Reason: Recheck today's complaints, Continuance of care, Re-evaluation by your physician. Follow up: Leoncio Donaldson MD; When: 2 - 3 days; Reason: Recheck today's complaints, Continuance of care, Re-evaluation by your physician. - Problem is new. - Symptoms have improved. Signatures: Dispatcher [employer] EDChapo Vigil MD MD cha Antunez, Elena RN Cristo Zavala ea RN RN jd3 Derik Bhardwaj RN RN rr5 Corrections: (The following items were deleted from the chart) 21:58 21:29 03/15/2021 21:29 Discharged to Home. Impression: Pain in left hip; Osteoarthritis ea of hip; Spondylolysis, lumbar region. Condition is Stable. Discharge Instructions: Joint Pain, Arthritis, Musculoskeletal Pain, Hip Pain, Arthritis, [id number], Joint Pain, [id number]. Prescriptions for Tylenol-Codeine #3 300-30 mg Oral Tablet - take 2 tablets by ORAL route every 4-6 hours As needed; 20 tablet, Motrin IB 200 mg Oral Tablet - take 2 tablet by ORAL route every 6 hours As needed as needed with food; 30 tablet. and Forms are Medication Reconciliation Form, Thank You Letter, Antibiotic Education, Prescription Opioid Use. Follow up: Private Physician; When: 2 - 3 days; Reason: Recheck today's complaints, Continuance of care, Re-evaluation by your physician. Follow up: Leoncio Donaldson; When: 2 - 3 days; Reason: Recheck today's complaints, Continuance of care, Re-evaluation by your physician. Problem is new. Symptoms have improved. teddy
[2021-03-15] MEDS ORDERED: KETOROLAC 30 MG/ML INJ ONE (21:53)
[2021-03-15] MEDS ORDERED: dexAMETHasone 10 MG/ML VIAL ONE (21:53)
[2021-03-15 23:04] VITALS: TEMP 97.6
[2021-03-15 23:05] VITALS: BP 162/83; O2SAT 98
== END 2021-03-15 21:58 | disposition home or self-care (01) ==
LOC: ER 17:40
DX: M16.12 Unilateral primary osteoarthritis, left hip (principal); M43.06 Spondylolysis, lumbar region; I10 Essential (primary) hypertension; E78.5 Hyperlipidemia, unspecified; Z79.82 Long term (current) use of aspirin
CPT/HCPCS: 96361; 85025; 36415; 81003; 80053; 72131; 72170; 73552; 96375; 96374; 99284; J1100; J2270; J7040; J2405

== ENCOUNTER 2021-03-19 12:00 | Emergency (ER) | payer OTHER ==
--- OUTSIDE RECORDS SUMMARY | 2021-03-19 12:04 | XMS REPORT | Continuity of Care Document ---
:1955 Author Organization [facility] t Address [address] [place] [address] Care Team Providers Name Role Phone Jarred [...] Effective Date Expiration Date Sour Number AMBETTERAMBETTER [id number] [address] [id number] 00:00:00 - Medical 05/2019-Present Center [...] Date Stop Date Quantity Comments Source History [facility] - Alcohol Binge Medical [facility] ter Sex Assigned At [facility] Cigarettes smoked 2021-01-13 2021-01-13 MAR Jackelinehonorio - current (pack per 00:00:00 00:00:00 [facility] Center day) - Reported Cigarette 2021-01-13 2021-01-[address] [facility] [place] - pack-years 00:00:00 00:00:00 [facility] Tobacco use and 2021-01-13 2021-01-[address] [facility] [place] ukes - exposure 00:00:00 00:00:00 [facility] Alcohol intake 2021-01-13 2021-01-13 Ex-drinker [facility] St [place] es - 00:00:00 00:00:00 (finding) [facility] History SDOH 2019-03-02 2019-03-[address] [facility] - Alcohol Frequency 00:00:00 00:00:00 [facility] Alcohol Comment 2019-03-02 2019-03-02 quit [address] [facility] - 00:00:00 00:00:00 ago [facility] History of tobacco 2018-12-[address] [facility] - use 00:00:00 [facility] Smoking Status Start Date Stop Date Source Former smoker 2021-01-13 00:00:00 2021-01-13 00:00:[address] [facility] Medications Ordered Filled Start Stop Current Ordering [...] 10 MG 18:12: daily. Medical tablet 59 [place] aspirin 81 Yes 1{tbl} QD Take [address] MG EC 3-05 tablet by Lukes - tablet 18:12: mouth Medical 59 daily. [place] busPIRone Yes 1{tbl} QD Take [address] (BUSPAR) 3-05 tablet by Lukes - 7.5 MG 18:12: mouth Medical tablet 59 daily. [place] flu vac qs Yes 1{tbl} QD Take [address] 2019-,4 3-05 tablet by Lukes - yr up, CD 18:12: mouth Medical (Flucelvax 59 daily. [place] Quad ) 60 mcg (15 mcg x 4)/0.5 mL Susp folic acid Yes 5mg QD Inject [address] 5 mg/mL 3-05 mg Lukes - injection 18:12: intramuscu Me dical 59 larly Center daily. mirtazapine Yes 1{tbl} QD Take [address] (REMERON) 3-05 tablet by Lukes - 7.5 MG 18:12: mouth Medical tablet 59 daily. [place] oxybutynin Yes 5mg QD Take [address] (DITROPAN) 3-05 by mouth Lukes - 5 MG tablet 18:12: daily. Medi christina 59 Center tamsulosin Yes .4mg QD Take 0.[address] (FLOMAX) 3-05 mg by Lukes - 0.4 mg Cap 18:12: mouth Medica l 24 hr 59 daily. [place] capsule clopidogreL 2021- Yes 75mg QD Take [address] (PLAVIX) 75 3-05 03-05 tablet (75 L ukes - mg tablet 00:00: 23:59 mg total) Me dical 00 :00 by mouth Center daily. topiramate Yes 1{tbl} QD Take [address] (TOPAMAX) 2-25 tablet by Lukes - 50 MG 00:00: mouth Medical tablet 00 daily. [place] atorvastati Yes 1{tbl} QD Take [address] n (LIPITOR) 1-19 tablet by Laura es - 10 MG 00:00: mouth Medical tablet 00 daily. [place] cyclobenzap Yes 1{tbl} QD Take [address] rine 1-13 tablet by Lukes - (FLEXERIL) 00:00: mouth Medica l 10 MG 00 daily. [place] tablet magnesium Yes 1{tbl} QD Take [address] oxide 1-04 tablet by Lukes - (MAG-OX) 00:00: mouth Medical 400 mg 00 daily. [place] (241.3 mg magnesium) tablet omeprazole 2019-11 Yes 20mg QD Take [address] (PriLOSEC) 2-29 by mouth Lukes - 20 MG 00:00: daily. Medical capsule 00 [place] lactulose 2019-11 Yes 60mL QD Take 60 [facility] (CHRONULAC) 1-24 mLs by Lukes - 10 gram/15 00:00: mouth Medica l mL solution [address] night[address] [facility] [address] methylPREDN Yes 1{tbl} QD Take [address] ISolone 7-27 tablet by Lukes - (MEDROL 00:00: mouth Medical DOSEPACK) 4 00 daily. [place] mg tablet traMADoL Yes 1{tbl} QD Take 1 [facility] (ULTRAM) 50 2-17 tablet by Laura es - mg tablet 00:00: mouth Medical 00 daily. [place] MethylPREDN MethylPREDN Yes Jorge as [facility] [...] l Outpati ent Clinics BusPIRone BusPIRone Yes Jorge not [facility] HCl HCl Leonard [...] Source Systolic blood 2021-01-08 16:45:00 139 mm[Hg] [facility] Diastolic blood 2021-01-08 16:45:00 67 mm[Hg] [facility] Heart rate 2021-01-08 16:45:00 86 /min [facility] Respiratory rate 2021-01-08 16:45:00 17 /min [facility] Oxygen saturation in 2021-01-08 16:45:00 97 /min [facility] - Arterial blood by Medical Ce nter Pulse oximetry Body temperature 2021-01-08 09:31:00 36.67 Leah [facility] Body height 2021-01-08 09:31:00 165.1 cm [facility] Body weight 2021-01-08 09:31:00 83.779 kg [facility] BMI 2021-01-08 09:31:00 30.74 kg/m2 MAR Howell uche - [facility] Procedures Procedure Date / Time Performed Performing Clinician Sourc e PERIPHERAL ANGIOS / 2021-01-08 13:10:00 De La Cruz, Mariusz MAR [facility] ukuche - AORTOGRAM [facility] ECG 12-LEAD 2021-01-08 09:54:43 Mariusz De La Cruz [facility] CARDIAC CATH REPORT - 2021-01-08 00:00:00 Provider, Default MAR Jackelinehonorio - SCAN Scanning [facility] CBC W/PLT COUNT & AUTO 2021-01-04 13:06:00 De La CruzMariusz ellis [facility] - DIFFERENTIAL [facility] BASIC METABOLIC PANEL 2021-01-04 13:06:00 De La CruzMariusz ellis [facility] - (7) [facility] PROTHROMBIN TIME/INR 2021-01-04 13:06:00 De La CruzMariusz ellis [facility] SARS-COV2/RT-PCR ([facility] & 2021-01-04 12:49:00 De La CruzMariusz ellis MAR [facility] - REF LABS) [facility] Plan of Care Planned Activity Planned Date Details Comments Source Future Scheduled Test 2027-09-27 Screening for [facility] - 00:00:00 malignant neoplasm Medical C enter of colon (procedure) [code = 375957923] Future Scheduled Test 2022-03-[address] [facility] St kes - 00:00:00 (procedure) [code = [facility] [id number]] Future Scheduled Test 2021-07-07 INFLUENZA VACCINE [facility] - 00:00:00 (Season Ended) [code Medical Center = INFLUENZA VACCINE (Season Ended)] Future Scheduled Test 2020-11-[address] [facility] - 00:00:00 (12+) [code = [facility] DEPRESSION SCREENING (12+)] Future Scheduled Test 2006 SHINGLES VACCINES ([address] [facility] - 00:00:00 of 2) [code = [facility] SHINGLES VACCINES (1 of 2)] Future Scheduled Test 1975 DTAP/TDAP/TD [facility] - 00:00:00 VACCINES (1 - Tdap) Medical [place] [code = DTAP/TDAP/TD VACCINES (1 - Tdap)] Future Scheduled Test 1974 HEPATITIS C MAR [facility] - 00:00:00 SCREENING [code = Medical Ce nter HEPATITIS C SCREENING] Future Appointment 2021-03-22 [facility], MAR Andrea kes - 10:00:00 Medical Center Encounters Start End Encounter Admission Attending Care Care Encounter Source Date/Time Date/Time Type Type Clinicians Facility Department ID 2021-03-03 2021-03-03 Office JOSIANE Simmons [id number] 12:05:37 12:20:37 Visit Chuckie AMBULATOR [id number] Y 0.2.7.2.686 [id number] 2021-02-18 2021-02-18 Outpatient [facility] [id number] [facility] 00:00:00 00:00:00 [facility] ent Clinics 2021-02-16 2021-02-16 Office JOSIANE Monroy [id number] 09:21:06 10:13:12 Visit Mohan AMBULATOR 350.1.13.21 Y 0.2.7.2.686 [id number] 2021-01-25 2021-01-25 Office JOSIANE De La Cruz 1.2.840.114 [id number] 11:06:09 12:30:03 Visit Mariusz AMBULATOR 350.1.13.21 Gonzalo Y 0.2.7.2.686 [id number] 2020-12-07 2020-12-07 Office JOSIANE De La Cruz 1.2.840.114 [id number] 09:22:17 15:25:48 Visit Mariusz AMBULATOR [id number] Gonzalo Y 0.2.7.2.686 [id number] 2020-12-02 2020-12-02 Office JOSIANE Simmons 1.2.840.114 [id number] 14:28:34 14:43:34 Visit Chuckie AMBULATOR 350.1.13.21 Y 0.2.7.2.686 [id number] 2020-11-25 2020-11-25 Outpatient [facility] [id number] [facility] 00[facility]00 [facility] 2020-11-16 2020-11-16 Outpatient [facility] [id number] [facility] 2020-10-12 2020-10-12 Office JOSIANE Alvarado 1.2.840.114 [id number] 13:52:12 14:22:12 Visit Khai AMBULATOR 350.1.13.21 Y 0.2.7.2.686 [id number] 2020-09-08 2020-09-08 Outpatient [facility] [id number] 07:57:00 07:57:00 [facility] 2020-08-06 2020-08-06 Office JOSIANE Alvarado 1.2.840.114 [id number] 14:02:58 14:46:32 Visit Khai AMBULATOR 350.1.13.21 Y 0.2.7.2.686 [id number] 2020-07-28 2020-07-28 [facility] [id number]00 kes - [facility] 2020-07-16 2020-07-16 [facility] [id number] 16:13:00 16:13:00 [facility] 2020-07-14 2020-07-14 [facility] [id number] 09:30:00 09:30:00 [facility] 2020-06-01 2020-06-01 [facility] [id number] 09:00:00 09:00:00 [facility] 2020-04-23 2020-04-23 Office JOSIANE Monroy 1.2.840.114 [id number] 11:27:32 11:47:32 Visit Mohan AMBULATOR 350.1.13.21 Y 0.2.7.2.686 [id number] 2020-01-22 2020-01-22 Office JOSIANE Steiner 1.2.840.114 [id number] 09:35:07 10:05:07 Visit Kalen AMBULATOR 350.1.13.21 Young Y 0.2.7.2.686 [id number] 2020-01-22 2020-01-22 [facility] [id number] 08:07:00 08:07:00 [facility] ent Clinics 2020-01-08 2020-01-08 [facility] [id number] 12:23:00 12:23:00 [facility] 2019-12-23 2019-12-23 [facility] [id number] 08:00:00 08:00:00 [facility] ent Clinics 2019-10-10 2019-10-10 [facility] [id number] 09:37:00 09:37:00 [facility] ent Clinics 2019-10-09 2019-10-09 [facility] [id number] 15:29:00 15:29:00 [facility] ent Clinics 2019-09-09 2019-09-09 [facility] [id number] 16:12:00 16:12:00 [facility] ent Clinics 2019-09-02 2019-09-02 [facility] [id number] 12:24:00 12:24:00 [facility] ent Clinics 2019-08-22 2019-08-22 [facility] [id number] 09:00:00 09:00:00 [facility] 2019-08-16 2019-08-16 Office JOSIANE Tuttle 1.2.840.114 [id number] 12:53:30 13:30:16 Visit Ruth AMBULATOR 350.1.13.21 Mandeep Mendez 0.2.7.2.686 [id number] 2019-07-25 2019-07-25 [facility] [id number] 10:00:00 10:00:00 [facility] 2019-07-21 2019-07-21 [facility] [id number] 20:21:00 20:21:00 [facility] Results Test Description Test Time Test Comments Results Result [facility] e Comments CARDIAC CATH Ordered by an [facility] REPORT - SCAN 8 unspecified provider. Humberto - 10:10:20 [facility] ECG 12 lead Interface, External Ris MAR St 5 In - 01/08/2021 7:43 Laura es - 19:43:21 PM CSTVentricular Rate Me dical 81 BPMAtrial Rate 81 Cent er BPMP-R Interval 144 msQRS Duration 92 msQ-T Interval 370 msQTC Calculation(Bazett) 429 msP Sayner 47 degreesR Sayner 60 degreesT Sayner 49 degreesNormal sinus rhythmNormal ECGNo previous ECGs availableConfirmed by Joseph Perry ([id number]) on 01/08/2021 7:43:18 PM SARS-CoV2/RT-PCR (Asymptomatic ONLY) 2021-01-05 02:00:00 Test Item Value Reference Range Interpretation Comme nts SARS-COV2/RT-PCR (test code = Negative Not Detected, 40764-6) Negative, See external report for linked test SARS-COV-[address] [facility] (test code = 56518-4) JOSEPH (test code = JOSEPH) Negative result [...] Arias SARS-CoV-2 assay. Fact Sheet for Healthcare Providers:https://www.Mobile Factorylex oliver.arias/gisel/LD_ONYJ-FzY-6_Z CP_Fact_Sheet_51-205232.pdf Fact Sheet for Healthcare Patients:https://www.Mobile Factoryjessica r.arias/gisel/OF_YTJI-UjL-7_Co tient_Fact_Sheet_EN_51-134887 R3.pdf Performing Laboratory:[facility] [place] [address] [facility] REF [facility])2021-01-05 02:00:00 Test Item Value Reference Range Interpretation Comments SARS-COV2/RT-PCR (test Negative Not Detected, Negative, code = 0246596) See external report for linked test SARS-COV-[address] [facility] (test code = 9669001) Negative result for this test determines that [...] Arias SARS-CoV-2 assay.Fact Sheet for Healthcare Providers:https://www.molecular.arias/gisel/ XI_KTOH-SgU-9_ETV_Fjnj_Ddqnm_60-914114.pdfFact Sheet for Healthcare Patients:https://www.Catchoom.ab afia/gisel/MF_TJIG-JsE-4_Phscnvg_Afwh_Scwfz_BV_45-011681H4.pdfPerforming Laboratory:[address] [address] Basic Metabolic [id number] 13:40:00 Test Item Value Reference Range Interpretation Comments Sodium (test code = 139 meq/L 051-869 7384-2) Potassium (test 4.7 meq/L 3.5-5.1 code = 2823-3) Chloride (test code 104 meq/L 98-107 = 2075-0) CO2 (test code = 27 meq/L 22-29 2028-9) BUN (test code = 12 mg/dL 7-21 3094-0) Creatinine (test 1.05 mg/dL 0.57-1.25 code = 2160-0) Glucose (test code 94 mg/dL 70-105 = 2345-7) Calcium (test code 9.3 mg/dL 8.4-10.2 = 57112-2) EGFR (test code = 71 mL/min/1.73 [place] [address]-8) NOT ACCURATE CREATININE CLEARANCE IN PREDICTING GLOMERULAR FILTRATION RATE . ESTIMATED GFR I S NOT APPLICABLE FOR DIALYSIS PATIEN TS. JOSEPH (test code = [employer] Specialist ID - JOSEPH) JAK Dawson [facility] METABOLIC [id number] 13:40:00 Test Item Value Reference Range Interpretation [...] S NOT APPLICABLE FOR DIALYSIS PATIEN TS. [employer] Specialist ID - JAK MProthrombin time/[id number] 13:21:00 Test Item Value Reference Interpretation Comments [...] valves. Lab Interpretation Normal (test code = 09973-0) [facility]/[id number] 13:21:00 Test Item Value Reference Range Interpretation Comments PROTIME (BEAKER) 12.7 seconds 11.9-14.2 (test code = 759) INR (BEAKER) (test 0.99 See_Comment [Automat ed message] code = 370) The system RingCaptcha generated this result transmitted ref erence range: [...] heart valves.CBC with platelet count + automated [id number] 13:14:00 Test Item Value Reference Range Interpretation Comments WBC (test code = 6690-2) 8.3 See_Comment [A utomated message] The system RingCaptcha generated this result transmitted ref erence range: 3.5 - 10 .5 K/L. The refe rence range was not u sed to interpret this result as normal/abnor mal. RBC (test code = 789-8) 4.62 See_Comment L [Au tomated message] The system [facility] Scopix generated this result transmitted ref erence range: 4.63 - 6 .08 M/L. The refe rence range was not u sed to interpret this result as normal/abnor mal. MCHC (test code = 786-4) 32.2 See_Comment L [A utomated message] The system [employer]App generated this result transmitted ref erence range: [...] See_Comment [Aut omated message] 777-3) The system [employer] generated this result transmitted ref erence range: 150 - 45 0 K/CU MM. The referen ce range was not u sed to interpret this result as normal/abnor mal. MPV (test code = 11.0 fL 9.4-12.4 90304-5) nRBC (test code = 413) 0 See_Comment [Aut omated message] The system [facility] [employer] generated this result transmitted ref erence range: [...] See_Comment [Aut omated message] 670) The system [facility] [employer] generated this result transmitted ref erence range: 1.78 - 5 .38 K/L. The refe rence range was not u sed to interpret this result as normal/abnor mal. # Lymphs (test code = 2.40 See_Comment [Auto mated message] 414) The system RingCaptcha generated this result transmitted ref erence range: 1.32 - 3 .57 K/L. The refe rence range was not u sed to interpret this result as normal/abnor mal. # Monos (test code = 0.74 See_Comment [Autom ated message] 415) The system RingCaptcha generated this result transmitted ref erence range: 0.30 - 0 .82 K/L. The refe rence range was not u sed to interpret this result as normal/abnor mal. # Eos (test code = 416) 0.07 See_Comment [Au tomated message] The system RingCaptcha generated this result transmitted ref erence range: 0.04 - 0 .54 K/L. The refe rence range was not u sed to interpret this result as normal/abnor mal. # Baso (test code = 417) 0.07 See_Comment [A utomated message] The system RingCaptcha generated this result transmitted ref erence range: 0.01 - 0 .08 K/L. The refe rence range was not u sed to interpret this result as normal/abnor mal. Immature 0 % 0-1 Granulocytes-Relative (test code = 2801) Lab Interpretation (test Abnormal code = 34363-0) [facility] W/PLT COUNT & AUTO [id number] 13:14:00 Test Item Value Reference Range Interpretation [...] code = 2801) MR, BRAIN, WITHOUT IV [id number] 10:00:00FINAL REPORT History: Numbness and tinglingComparison studies: [...] theintracranial MRA of 03/03/2019. Signed: Lamine Hussein MDReport Verified Date/Time: 05/03/2019 10:00:48 Reading Location: [facility] Reading Room [address] [place] [address] CBC W/PLT COUNT & AUTO [id number] 06:59:00 Test Item Value Reference Range Interpretation [...] (BEAKER) (test code = 2801) BASIC METABOLIC [id number] 06:03:00 Test Item Value Reference Range Interpretation [...] NOT APPLICABLE FOR DIALYSIS PATIEN TS. HEMOGLOBIN [id number] 08:52:00 Test Item Value Reference Range Interpretation Comments HEMOGLOBIN A1C (BEAKER) (test code = 5.8 % 4.3-6.1 368) LIPID [id number] 06:11:00 Test Item Value Reference Range Interpretation [...] High 160-189 Very High >=190 FastingBASIC METABOLIC [id number] 06:11:00 Test Item Value Reference Range Interpretation [...] PATIEN TS. FastingCBC W/PLT COUNT & AUTO [id number] 05:06:00 Test Item Value Reference Range Interpretation [...] (test code = 2801) TSH/FREE T4 IF [id number] 19:14:00 Test Item Value Reference Range Interpretation Comments THYROID STIMULATING HORMONE 0.53 uIU/mL 0.35-4.94 (BEAKER) (test code = 772) VITAMIN B12 AND [id number] 19:14:00 Test Item Value Reference Range Interpretation Comments VITAMIN B12 (BEAKER) (test code = 660 pg/mL 213-816 774) FOLATE (BEAKER) (test code = 362) 6.9 ng/mL >=7.0 L BASIC METABOLIC [id number] 18:39:00 Test Item Value Reference Range Interpretation [...] FOR DIALYSIS PATIEN TS. MR, BRAIN, WITHOUT [id number] 16:16:00Reason for exam:->StrokeWhat is the patient's sedation [...] None available. TECHNIQUE: 2 D and 3-D nbsb-ck-facrwg MRA images of the intra- and extracranial [...] is antegrade in both vertebral arteries. MRA [place]: There is a inferiorly to [...] be considered if clinically appropriate. Signed: [facility] Verified Date/Time: 03/03/2019 16:16:12 Reading Location: [facility] C013V Neuro Reading Room MR, MRA, BRAIN, WITHOUT [id number] 16:16:00Reason for exam:- >Ischemic Stroke EvaluationFINAL REPORT [...] None available. TECHNIQUE: 2 D and 3-D dcpu-ia-mythlg MRA images of the intra- and extracranial [...] is antegrade in both vertebral arteries. MRA [place]: There is a inferiorly to [...] be considered if clinically appropriate. Signed: [facility] Verified Date/Time: 03/03/2019 16:16:12 Reading Location: [facility] B1 C013V Neuro Reading Room MR, MRA, NECK, WITHOUT IV [id number] 16:16:00Reason for exam:->Ischemic Stroke EvaluationFINAL REPORT MRI [...] None available. TECHNIQUE: 2 D and 3-D lrtg-df-ilcihr MRA images of the intra- and extracranial [...] is antegrade in both vertebral arteries. MRA [place]: There is a inferiorly to [...] be considered if clinically appropriate. Signed: [facility] Verified Date/Time: 03/03/2019 16:16:12 Reading Location: [facility] C013V Neuro Reading Room LID [id number] 04:08:00 Test Item Value Reference Range Interpretation [...] High 160-189 Very High >=190 FastingBASIC METABOLIC [id number] 04:08:00 Test Item Value Reference Range Interpretation [...] PATIEN TS. FastingCBC W/PLT COUNT & AUTO [id number] 03:54:00 Test Item Value Reference Range Interpretation [...] = 2801) CBC W/PLT COUNT & AUTO [id number] 20:55:00 Test Item Value Reference Range Interpretation [...] (BEAKER) (test code = 2801) BASIC METABOLIC [id number] 20:44:00 Test Item Value Reference Range Interpretation Comments SODIUM (BEAKER) 137 meq/L 136-145 (test code = 381) POTASSIUM (BEAKER) 4.2 meq/L 3.5-5.1 (test code = 379) CHLORIDE (BEAKER) 104 meq/L 98-107 (test code = 382) CO2 (BEAKER) (test 23 meq/L 22-29 code = 355) BLOOD UREA NITROGEN 17 mg/dL 7-21 (BEAKER) (test code = 354) CREATININE (BEAKER) 0.81 mg/dL 0.57-1.25 (test code = 358) GLUCOSE RANDOM 108 mg/dL 70-105 H (BEAKER) (test code = 652) CALCIUM (BEAKER) 9.2 mg/dL 8.4-10.2 (test code = 697) EGFR (BEAKER) (test 97 mL/min/1.73 ESTIMA FABIAN GFR IS code = 1092) sq m NOT ACCURATE CREATININE CLEARANCE IN PREDICTING GLOMERULAR FILTRATION RATE . ESTIMATED GFR I S NOT APPLICABLE FOR DIALYSIS PATIEN TS.
[2021-03-19] MEDS ORDERED: NA CHLORIDE 0.9% 1,000 ML ONE (13:37)
--- NOTE | 2021-03-19 14:39 | RAD REPORT ---
EXAM DESCRIPTION: CT - Head Brain Wo Cont - 03/19/2021 2:24 pm CLINICAL HISTORY: Dizziness COMPARISON: 2019 TECHNIQUE: Computed axial tomography of the head was obtained. IV contrast was not requested. All CT scans are performed using dose optimization technique as appropriate and may include automated exposure control or mA/KV adjustment according to patient size. FINDINGS: An intracranial bleed is not seen . The ventricles are normal in caliber. No extra-axial fluid collection is noted. . Fluid within the sinuses/ mastoids is not seen. IMPRESSION: No acute intracranial abnormality is seen. If patient's symptoms persist MRI of the bra in would be recommended.
[2021-03-19 14:47] LABS: Absolute Lymphocytes (CBC) 1.7 K/uL (0.7-4.9); Basophils % 0.5 % (0-1.3); Hematocrit 44.2 % (39.6-49.0); Lymphocytes % 18.4 % (15.3-44.8); MPV 9.6 fL (7.6-11.3); RBC Red Blood Cell Count 4.77 M/uL (4.33-5.43)
[2021-03-19 14:48] LABS: Urine Blood Negative (Negative); Urine Glucose Negative (Negative); Urine Protein Negative (Negative)
--- NOTE | 2021-03-19 14:51 | RAD REPORT ---
EXAM DESCRIPTION: CT - Angio Aorta For Dissection - 03/19/2021 2:24 pm CLINICAL HISTORY: . Chest and abdominal pain COMPARISON: CT chest 2018 TECHNIQUE: Computed tomography angiography of the chest, abdomen pelvis were obtained. 100 cc Isovue 370 was administered intravenously. Coronal and sagittal reconstruction were performed. MIP 3D reconstruction was performed All CT scans are performed using dose optimization technique as appropriate and may include automated exposure control or mA/KV adjustment according to patient size. FINDINGS: An aortic dissection is not seen. An aortic aneurysm is not displayed. Moderate stenosis celiac artery. Mild to moderate stenosis SMA. CESAR is patent. Iliac stents. A lung consolidation is not present. A pericardial effusion is not seen. A pleural effusion is not n oted. Mild fatty liver Spleen, pancreas adrenals kidneys demonstrate no significant abnormality. IMPRESSION: Negative for an aortic dissection.
[2021-03-19 14:55] LABS: Protime INR 1.06
--- NOTE | 2021-03-19 14:56 | RAD REPORT ---
EXAM DESCRIPTION: USCarotid Artery Bilateral03/19/2021 1:59 pm CLINICAL HISTORY: Dizziness COMPARISON: None FINDINGS: The velocity of the right internal carotid artery equals 153 cm/sec. The right ICA/CCA rat io 1.8 The velocity of the left internal carotid artery equals 108 cm/sec. The left ICA/CCA ratio 1. Moderate plaque within the right carotid bulb. Moderate plaque in the external carotid arteries. Mild to moderate plaque within the common carotid arteries bilaterally and left internal carotid garrick ry The vertebral arteries demonstrate antegrade flow IMPRESSION: Moderate plaque in the right carotid bulb resulting in an approximately 55-60% stenosis NASCET criteria used. Mild 0-49% stenosis Moderate 50-69% stenosis Severe 70-99% stenosis
[2021-03-19 15:05] LABS: ALT/SGPT 28 U/L (12-78); AST/SGOT 8 U/L (15-37); Albumin 3.5 g/dL (3.4-5.0); Alkaline Phosphatase 69 U/L (45-117); BUN Blood Urea Nitrogen 14 mg/dL (7-18); Bicarbonate 27 mmol/L (21-32); Bilirubin Direct 0.2 mg/dL (0-0.2); Bilirubin Total 0.8 mg/dL (0.2-1.0); Glucose Level 100 mg/dL (74-106); Lipase 62 U/L (73-393); Magnesium 2.4 mg/dL (1.8-2.4); NT PRO-BNP 17 pg/mL (<125); Protein, Total 6.8 g/dL (6.4-8.2); Sodium Level 134 mmol/L (136-145); Troponin (Emerg Dept Use Only) < 0.02 ng/mL (0.0-0.045)
--- NOTE | 2021-03-19 15:23 | EDPHYS ---
Physician Documentation [facility] Name: John Moreno Age: 65 yrs Sex: Male : 1955 Arrival Date: 03/19/2021 Time: 12:01 Bed 25 Private MD: Rj Henry ED Physician Chapo Ruiz HPI: 03/19 12:53 This 65 yrs old Male presents to ER via Ambulatory with complaints of teddy Headache, High Blood Pressure, back of neck pain, Dizziness. 12:53 The patient complains of pain to the top of head, forehead, left frontal area, left teddy side of the back of head, left occipital area, left base of the skull, right frontal area, right side of the back of head, right occipital area and right base of the skull. The patient describes the headache as aching, a pressure. Onset: The symptoms/episode began/occurred 1 day(s) ago. Associated signs and symptoms: Pertinent positives: malaise, nausea, weakness. Severity of symptoms: At its worst the pain was mild, in the emergency department the pain is unchanged. Headache History: The patient has had previous headaches and this one is similar to previous episodes. The symptoms are alleviated by nothing. the symptoms are aggravated by nothing. The patient has not experienced similar symptoms in the past. Historical: - Allergies: 12:07 No Known Allergies; jd3 - Home Meds: 12:07 amlodipine 10 mg tab [Active]; atorvastatin 10 mg Oral tab [Active]; Cyclobenzaprine jd3 Oral [Active]; clopidogrel Oral [Active]; Aspirin Oral [Active]; Levofloxacin Oral [Active]; duloxetine 30 mg Oral cpDR [Active]; omeprazole 40 mg Oral cpDR [Active]; losartan 50 mg Oral tab [Active]; pantoprazole Oral [Active]; - PMHx: 12:07 Hyperlipidemia; Hypertension; jd3 - PSHx: 12:07 stents in both legs; jd3 - Immunization history:: Adult Immunizations up to date. - Social history:: Smoking status: unknown. - Family history:: not pertinent. ROS: 12:53 Constitutional: Negative for fever, chills, and weight loss, Eyes: Negative for injury, teddy pain, redness, and discharge, ENT: Negative for injury, pain, and discharge, Neck: Negative for injury, pain, and swelling, Cardiovascular: Negative for chest pain, palpitations, and edema, Respiratory: Negative for shortness of breath, cough, wheezing, and pleuritic chest pain, Abdomen/GI: Negative for abdominal pain, nausea, vomiting, diarrhea, and constipation, Back: Negative for injury and pain, : Negative for injury, bleeding, discharge, and swelling, MS/Extremity: Negative for injury and deformity, Skin: Negative for injury, rash, and discoloration, Psych: Negative for depression, anxiety, suicide ideation, homicidal ideation, and hallucinations, Allergy/Immunology: Negative for hives, rash, and allergies, Endocrine: Negative for neck swelling, polydipsia, polyuria, polyphagia, and marked weight changes, Hematologic/Lymphatic: Negative for swollen nodes, abnormal bleeding, and unusual bruising. 12:53 Neuro: Positive for headache. Exam: 12:54 Constitutional: This is a well developed, well nourished patient who is awake, alert, teddy and in no acute distress. Head/Face: Normocephalic, atraumatic. Eyes: Pupils equal round and reactive to light, extra-ocular motions intact. Lids and lashes normal. Conjunctiva and sclera are non-icteric and not injected. Cornea within normal limits. Periorbital areas with no swelling, redness, or edema. ENT: Nares patent. No nasal discharge, no septal abnormalities noted. Tympanic membranes are normal and external auditory canals are clear. Oropharynx with no redness, swelling, or masses, exudates, or evidence of obstruction, uvula midline. Mucous membranes moist. Neck: Trachea midline, no thyromegaly or masses palpated, and no cervical lymphadenopathy. Supple, full range of motion without nuchal rigidity, or vertebral point tenderness. No Meningismus. Chest/axilla: Normal chest wall appearance and motion. Nontender with no deformity. No lesions are appreciated. Cardiovascular: Regular rate and rhythm with a normal S1 and S2. No gallops, murmurs, or rubs. Normal PMI, no JVD. No pulse deficits. Respiratory: Lungs have equal breath sounds bilaterally, clear to auscultation and percussion. No rales, rhonchi or wheezes noted. No increased work of breathing, no retractions or nasal flaring. Abdomen/GI: Soft, non-tender, with normal bowel sounds. No distension or tympany. No guarding or rebound. No evidence of tenderness throughout. Back: No spinal tenderness. No costovertebral tenderness. Full range of motion. Male : Normal genitalia with no discharge or lesions. Skin: Warm, dry with normal turgor. Normal color with no rashes, no lesions, and no evidence of cellulitis. MS/ Extremity: Pulses equal, no cyanosis. Neurovascular intact. Full, normal range of motion. Neuro: Awake and alert, GCS 15, oriented to person, place, time, and situation. Cranial nerves II-XII grossly intact. Motor strength 5/5 in all extremities. Sensory grossly intact. Cerebellar exam normal. Normal gait. Psych: Awake, alert, with orientation to person, place and time. Behavior, mood, and affect are within normal limits. 12:54 Musculoskeletal/extremity: DVT Exam: No signs of deep vein thrombosis. no pain, no swelling, no tenderness, negative Homans' sign noted on exam, no appreciated bluish discoloration, no erythema, no increased warmth. Vital Signs: 12:07 BP 156 / 80; Pulse 109; Resp 16 S; Temp 98.2(TE); Pulse Ox 100% on R/A; Weight 81.65 kg jd3 (R); Height 5 ft. 4 in. (162.56 cm) (R); Pain 2/10; 16:02 BP 133 / 82; Pulse 108; Resp 18; Pulse Ox 100% on R/A; tr6 12:07 Body Mass Index 30.90 (81.65 kg, 162.56 cm) jd3 Marjorie Coma Score: 12:55 Eye Response: spontaneous(4). Verbal Response: oriented(5). Motor Response: obeys teddy commands(6). Total: 15. MDM: 12:41 Patient medically screened. teddy 12:55 Differential diagnosis: hypertensive headache, hyponatremia, migraine, vasomotor teddy headache. Data reviewed: vital signs, nurses notes, lab test result(s), EKG, radiologic studies, CT scan, plain films. Data interpreted: belt turner: Pulse oximetry: on room air is 100 %. Test interpretation: by ED physician or midlevel provider: ECG, plain radiologic studies. Counseling: I had a detailed discussion with the patient and/or guardian regarding: the historical points, exam findings, and any diagnostic results supporting the discharge/admit diagnosis, lab results, radiology results. 03/19 12:51 Order name: Basic Metabolic Panel [facility] 03/19 12:51 Order name: CBC with Diff [facility] 03/19 12:51 Order name: LFT's; Complete Time: 15:15 [facility] 03/19 12:51 Order name: Magnesium; Complete Time: 15:15 [facility] 03/19 12:51 Order name: NT PRO-BNP; Complete Time: 15:15 [facility] 03/19 12:51 Order name: PT-INR; Complete Time: 15:15 [facility] 03/19 12:51 Order name: Troponin (emerg Dept Use Only); Complete Time: 15:15 [facility] 03/19 12:51 Order name: Lipase; Complete Time: 15:15 [facility] 03/19 12:51 Order name: Urine Culture [facility] 03/19 12:52 Order name: Basic Metabolic Panel; Complete Time: 15:15 EDPR 03/19 12:52 Order name: CBC with Automated Diff; Complete Time: 15:15 EDPR 03/19 14:45 Order name: CREATININE WHOLE BLOOD; Complete Time: 15:15 EDPR 03/19 14:48 Order name: Urine Dipstick-Ancillary; Complete Time: 15:15 EDPR 03/19 12:51 Order name: XRAY Chest ([address] view) [facility] 03/19 12:51 Order name: EKG; Complete Time: 12:53 [facility] 03/19 12:51 Order name: Cardiac monitoring; Complete Time: 14:50 [facility] 03/19 12:51 Order name: EKG - Nurse/Tech; Complete Time: 15:52 [facility] 03/19 12:51 Order name: IV Saline Lock; Complete Time: 14:50 [facility] 03/19 12:51 Order name: Labs collected and sent; Complete Time: 14:51 [facility] 03/19 12:51 Order name: O2 Per Protocol; Complete Time: 14:51 [facility] 03/19 12:51 Order name: O2 Sat Monitoring; Complete Time: 14:51 [facility] 03/19 12:51 Order name: Urine Dipstick-Ancillary (obtain specimen); Complete Time: 14:50 [facility] 03/19 12:51 Order name: CT Head Brain wo Cont; Complete Time: 15:15 [facility] 03/19 12:51 Order name: US Carotid Artery Bilateral; Complete Time: 15:15 [facility] 03/19 12:51 Order name: CT Aorta for Dissection; Complete Time: 15:15 [facility] 03/19 15:57 Order name: SARS-COV-2 RT PCR EDMS Administered Medications: 13:20 Drug: NS 0.9% 1000 ml Route: IV; Rate: 125 ml/hr; Site: left antecubital; tr6 13:25 Drug: NS 0.9% 500 ml Route: IV; Rate: bolus; Site: left antecubital; tr6 Disposition: 03/19/21 15:22 Discharged to Home. Impression: Occlusion and stenosis of right carotid artery - moderate, Essential (primary) hypertension, Hyperlipidemia, unspecified. - Condition is Stable. - Discharge Instructions: Hypertension, Hypertension, [id number], Cholesterol, How to Take Your Blood Pressure, [id number], Aspirin and Your Heart, Managing Your Hypertension, Dyslipidemia, High Cholesterol. - Prescriptions for Lipitor 20 mg Oral tablet - take 1 tablet by ORAL route once daily; 20 tablet. Plavix 75 mg Oral Tablet - take 1 tablet by ORAL route once daily; 20 tablet. - Medication Reconciliation Form, Thank You Letter, Antibiotic Education, Prescription Opioid Use form. - Follow up: Rj Henry MD; When: 2 - 3 days; Reason: Recheck today's complaints, Continuance of care, Re-evaluation by your physician. Follow up: Dayrl Aviles MD; When: 2 - 3 days; Reason: Recheck today's complaints, Continuance of care, Re-evaluation by your physician. - Problem is new. - Symptoms have improved. Signatures: Dispatcher [employer] [facility] Chapo Ruiz MD MD cha Davies, Jonathon, RN RN jJanine Bustamante RN RN tr6 Corrections: (The following items were deleted from the chart) 15:11 12:53 CORONAVIRUS+MR.LAB.BRZ ordered. [facility] EDPR 16:22 15:22 03/19/2021 15:22 Discharged to Home. Impression: Occlusion and stenosis of right tr6 carotid artery - moderate; Essential (primary) hypertension; Hyperlipidemia, unspecified. Condition is Stable. Forms are Medication Reconciliation Form, Thank You Letter, Antibiotic Education, Prescription Opioid Use. Follow up: Rj Henry; When: 2 - 3 days; Reason: Recheck today's complaints, Continuance of care, Re-evaluation by your physician. Follow up: Daryl Aviles; When: 2 - 3 days; Reason: Recheck today's complaints, Continuance of care, Re-evaluation by your physician. Problem is new. Symptoms have improved. teddy
--- NOTE | 2021-03-19 15:23 | ER ---
Nurse's Notes [facility] Name: John Moreno Age: 65 yrs Sex: Male : 1955 Arrival Date: 03/19/2021 Time: 12:01 Bed 25 Private MD: Rj Henry Diagnosis: Occlusion and stenosis of right carotid artery-moderate;Essential (primary) hypertension;Hyperlipidemia, unspecified Presentation: 03/19 12:06 Chief complaint: Patient states: "I have been having high blood pressure and a headache jd3 today. i am also getting dizzy.". Coronavirus screen: At this time, the client does not indicate any symptoms associated with coronavirus-19. Ebola Screen: Patient negative for fever greater than or equal to 101.5 degrees Fahrenheit, and additional compatible Ebola Virus Disease symptoms. Initial Sepsis Screen: Does the patient meet any 2 criteria? No. Patient's initial sepsis screen is negative. Does the patient have a suspected source of infection? No. Patient's initial sepsis screen is negative. Risk Assessment: Do you want to hurt yourself or someone else? Patient reports no desire to harm self or others. Onset of symptoms was March 19, 2021. 12:06 Method Of Arrival: Ambulatory jd3 12:06 Acuity: JEFFRY 3 jd3 Triage Assessment: 16:04 Headache History: Denies prior headaches. Pain: Pain at worst was 9 out of 10 on a pain tr6 scale. Also complains of. 16:21 Pain: Pain began gradually. tr6 Historical: - Allergies: 12:07 No Known Allergies; jd3 - Home Meds: 12:07 amlodipine 10 mg tab [Active]; atorvastatin 10 mg Oral tab [Active]; Cyclobenzaprine jd3 Oral [Active]; clopidogrel Oral [Active]; Aspirin Oral [Active]; Levofloxacin Oral [Active]; duloxetine 30 mg Oral cpDR [Active]; omeprazole 40 mg Oral cpDR [Active]; losartan 50 mg Oral tab [Active]; pantoprazole Oral [Active]; - PMHx: 12:07 Hyperlipidemia; Hypertension; jd3 - PSHx: 12:07 stents in both legs; jd3 - Immunization history:: Adult Immunizations up to date. - Social history:: Smoking status: unknown. - Family history:: not pertinent. Screenin:22 Abuse screen: Denies threats or abuse. Denies injuries from another. Nutritional tr6 screening: No deficits noted. Tuberculosis screening: No symptoms or risk factors identified. Fall Risk None identified. Assessment: 13:00 General: Appears in no apparent distress. comfortable, well groomed, Behavior is calm, tr6 cooperative, appropriate for age, Reports feeling ill for. Pain: Complains of pain in c/o headache. Neuro: No deficits noted. Reports headache frontal area, occipital area. Cardiovascular: No deficits noted. Respiratory: No deficits noted. GI: No deficits noted. EENT: No deficits noted. Derm: No deficits noted. Musculoskeletal: No deficits noted. 13:21 Reassessment: pt currently in US. tr6 16:14 Reassessment: MD Ruiz at bedside to discuss results with pt as pt states that he tr6 still does not feel well and still complaining of headaches. 16:20 Reassessment: all results printed and given to pt to f/u with pts MD. tr6 Vital Signs: 12:07 BP 156 / 80; Pulse 109; Resp 16 S; Temp 98.2(TE); Pulse Ox 100% on R/A; Weight 81.65 kg jd3 (R); Height 5 ft. 4 in. (162.56 cm) (R); Pain 2/10; 16:02 BP 133 / 82; Pulse 108; Resp 18; Pulse Ox 100% on R/A; tr6 12:07 Body Mass Index 30.90 (81.65 kg, 162.56 cm) jd3 [place] Coma Score: 12:55 Eye Response: spontaneous(4). Verbal Response: oriented(5). Motor Response: obeys teddy commands(6). Total: 15. ED Course: 12:01 Patient arrived in ED. am2 12:01 Rj Henry MD is Private Physician. am2 12:06 Triage completed. jd3 12:08 Arm band placed on. jd3 12:41 Chapo Ruiz MD is Attending Physician. teddy 12:56 Janine Rose, CISCO is Primary Nurse. tr6 13:22 Patient has correct armband on for positive identification. Bed in low position. Call tr6 light in reach. Side rails up X 1. 13:22 No provider procedures requiring assistance completed. tr6 13:59 US Carotid Artery Bilateral In Process Unspecified. EDMS 14:24 CT Head Brain wo Cont In Process Unspecified. EDMS 14:25 CT Aorta for Dissection In Process Unspecified. EDMS 15:18 Rj Henry MD is Referral Physician. teddy 15:18 Daryl Aviles MD is Referral Physician. teddy 15:19 XRAY Chest (1 view) In Process Unspecified. EDMS 16:21 IV discontinued, intact, bleeding controlled, No redness/swelling at site. Pressure tr6 dressing applied. Administered Medications: 13:20 Drug: NS 0.9% 1000 ml Route: IV; Rate: 125 ml/hr; Site: left antecubital; tr6 13:25 Drug: NS 0.9% 500 ml Route: IV; Rate: bolus; Site: left antecubital; tr6 Outcome: 15:22 Discharge ordered by . teddy 16:20 Discharged to home ambulatory, pt refused wheelchair at this time tr6 16:20 Condition: stable 16:20 Discharge instructions given to patient, family, significant other, at bedside Instructed on discharge instructions, follow up and referral plans. medication usage, safety practices, Demonstrated understanding of instructions, follow-up care, medications, Prescriptions given X 2. 16:22 Patient left the ED. tr6 Signatures: Dispatcher [employer] EDChapo Vigil MD MD cha Moreno, Amanda am2 Davies, Jonathon, CISCO RN Janine Reveles RN RN tr6
--- NOTE | 2021-03-19 16:02 | RAD REPORT ---
EXAM DESCRIPTION: Daisy Single View03/19/2021 3:19 pm CLINICAL HISTORY: Cough COMPARISON: 2018 FINDINGS: The lungs appear clear of acute infiltrate. The heart is normal size IMPRESSION: No acute abnormalities displayed
[2021-03-19 17:09] VITALS: TEMP 98.2; O2SAT 100
[2021-03-19 17:15] VITALS: BP 133/82
== END 2021-03-19 16:22 | disposition home or self-care (01) ==
LOC: ER 12:00
DX: I65.21 Occlusion and stenosis of right carotid artery (principal); I10 Essential (primary) hypertension; E78.5 Hyperlipidemia, unspecified; Z20.822 Contact with and (suspected) exposure to COVID-19; R42 Dizziness and giddiness
CPT/HCPCS: 93005; 87088; 85025; 87086; 80048; 36415; 83735; 85610; 82565; 80076; 81003; 84484; 83690; 83880; 70450; 71275; 74175; 71045; 93880; 99283; U0003; Q9967; J7030

== ENCOUNTER 2021-05-07 13:54 | Emergency (ER) | payer OTHER ==
--- OUTSIDE RECORDS SUMMARY | 2021-05-07 14:02 | XMS REPORT | Continuity of Care Document ---
:1955 Author Organization [facility] t Address Critical access hospital[address] [place] [address] Care Team Providers Name Role Phone Jarred Henry Primary Care Physician Ar OGLESBY Attending Clinician Yeiym Urena MD Attending Clinician Torres OGLESBY Attending Clinician AR Attending Clinician Unavailable Eveline PECK N Attending Clinician Unavailable Cindy OGLESBY Attending Clinician CINDY Attending Clinician Unavailable Sara ESPAÑA Attending Clinician Juma OGLESBY Attending Clinician [address] [place] [address] Ct Room Attending Clinician Unavailable JUMA Attending Clinician Unavailable Juma OGLESBY Attending Clinician Gonzalo De La Cruz MD Attending Clinician Gonzalo De La Cruz MD Attending Clinician GONZALO DEL A CRUZ Attending Clinician Unavailable Christiano OGLESBY Attending Clinician Duy Steiner MD Attending Clinician Mandeep Tuttle MD Attending Clinician PATEL Attending Clinician Unavailable DEWAYNE SOLIMAN Attending Clinician Unavailable YEIMY URENA Admitting Clinician Unavailable PATEL Admitting Clinician Unavailable DEWAYNE SOLIMAN Admitting Clinician Unavailable Payers Payer Name Policy Type Policy Effective Date Expiration Date [facility] Juan Jose SALCEDO [id number] 2020 [id number] 00:00:00 - Medical /2020- [place] JANET [facility]SON [facility] [id number] HEALTH Problems Condition Condition Condition Status Onset Resolution Last Treating Co mments Source Name Details Category Date Date Treatment Clinician Date Chest pain Chest pain Disease Active [facility] CAD CAD Disease Active [facility] ([facility]onary (coronary 6-28 [facility] - artery artery 00:00: Medical disease) disease) 00 [place] PAD PAD Disease Active [facility] (periphera (periphera 3-05 [facility] k[facility] - l artery l artery 00:00: Medica l disease) disease) 00 [place] Complicate Complicate Disease Active [facility] d migraine d migraine 5-04 [facility] kes - 00:00: Medical 00 [place] TIA TIA Disease Active [facility] (transient (transient 5-03 [facility] kes - ischemic ischemic 00:00: Medica l attack) attack) 00 [place] Stroke Stroke Disease Active [facility] (cerebrum) (cerebrum) 4-27 Jackeline kes - 00:00: Medical 00 [place] Allergies, Adverse Reactions, Alerts This patient has no known allergies or adverse reactions. Family History Family Member Diagnosis Comments Start Date Stop Date Source Natural father Diabetes [facility] Natural father Stroke [facility] Natural mother Diabetes [facility] Social History Social Habit Start Date Stop Date Quantity Comments Source History SDOH [facility] - Alcohol Std Drinks [facility] History SDOH [facility] - Alcohol Binge Medical Tere ter Sex Assigned At [facility] Exposure to Not sure [facility] - SARS-CoV-2 (event) [facility] Cigarettes smoked 2021-05-04 2021-05-04 [facility] - current (pack per 00:00:00 00:00:00 Medical Center day) - Reported Cigarette 2021-05-04 2021-05-[address] [facility] - pack-years 00:00:00 00:00:00 [facility] Tobacco use and 2021-05-04 2021-05-[address] [facility] kes - exposure 00:00:00 00:00:00 [facility] Alcohol intake 2021-05-04 2021-05-04 Ex-drinker [facility] - 00:00:00 00:00:00 (finding) Medical Center History SDOH 2019-03-02 2019-03-[address] [facility] - Alcohol Frequency 00:00:00 00:00:00 [facility] Alcohol Comment 2019-03-02 2019-03-02 quit [address] [facility] - 00:00:00 00:00:00 ago [facility] History of tobacco 2018-12-28 Current smoker [facility] - use 00:00:00 [facility] Smoking Status Start Date Stop Date Source Former smoker 2021-05-04 00:00:00 2021-05-04 00:00:[address] [facility] - [facility] Medications Ordered Filled Start Stop Current Ordering Indication Dosage Frequency Signature Comments Components Source Medication Medication Date Date Medication? Clinician (SIG) Name Name losartan Yes 100mg QD Take [address] (COZAAR) 50 6-30 mg by [facility] - MG tablet 12:36: mouth Medical 32 daily . [place] amLODIPine Yes 10mg QD Take [address] (NORVASC) 6-30 by mouth [facility] - 10 MG 12:36: daily. Medical tablet 32 [place] aspirin 81 Yes 1{tbl} QD Take [address] MG EC 6-30 tablet by [facility] - tablet 12:36: mouth Medical 32 daily. [place] pantoprazol Yes 20mg QD Take [address] e sodium 6-30 by mouth [facility] - (PROTONIX 12:36: daily . Medic al ORAL) 32 Center metoprolol Yes 25mg QD Take [address] succinate 6-30 by mouth [facility] - (TOPROL-XL) 12:36: daily. Medi trang 25 MG 24 hr 32 [place] tablet polyethylen Yes 17g QD Take [address] e glycol 6-30 by mouth [facility] - (GLYCOLAX) 12:36: daily. Medic al 17 gram 32 Center packet nitroglycer 2021- Yes Put [address] in 05-04 under [facility] - (NITROSTAT) 00:00: 23:59 tongue Med ical 0.4 MG SL 00 :00 every 5min Cent er tablet as needed for chest pain.No more than 3 doses in 15min.Call 911 if pain unrelieved 5min after 1st dose. flu vac qs 2020- No 1{tbl} QD Take [address] ,4 05-03 tablet by [place] - yr up, CD 07:59: 00:00 mouth Medica l (Flucelvax 58 :00 daily. [place] Quad ) 60 mcg (15 mcg x 4)/0.5 mL Susp folic acid 2020- No 5mg QD Inject [address] 5 mg/mL 05-03 mg [facility] - injection 07:59: 00:00 intramuscu M edical 58 :00 larly [place] daily. tamsulosin 2020- No .4mg QD Take 0.[address] (FLOMAX) 05-03 mg by [facility] - 0.4 mg Cap 07:58: 00:00 mouth Medic al 24 hr 59 :00 daily. [place] capsule oxybutynin 2020- No 5mg QD Take [address] (DITROPAN) 05-03 by mouth Luke s - 5 MG tablet 07:58: 00:00 daily. Med ical 50 :00 [place] mirtazapine 2020- No 1{tbl} QD Take [address] (REMERON) 05-03 tablet by Luke s - 7.5 MG 07:58: 00:00 mouth Medical tablet 28 :00 daily. [place] busPIRone 2020- No 1{tbl} QD Take [address] (BUSPAR) 05-03 tablet by [facility] - 7.5 MG 07:56: 00:00 mouth Medical tablet 59 :00 daily. [place] clopidogreL 2020- No 75mg QD Take [address] (PLAVIX) 75 3-05-04 tablet (75 L ukes - mg tablet 00:00: 00:00 mg total) Me dical 00 :00 by mouth Center daily. topiramate 2020- No 1{tbl} QD Take [address] (TOPAMAX) 2-25 -28 tablet by Luke s - 50 MG 00:00: 00:00 mouth Medical tablet 00 :00 daily. [place] atorvastati Yes 1{tbl} QD Take [address] n (LIPITOR) 1-19 tablet by Laura es - 10 MG 00:00: mouth Medical tablet 00 daily. [place] cyclobenzap Yes 1{tbl} Take [address] rine 1-13 tablet by [facility] - (FLEXERIL) 00:00: mouth Medica l 10 MG 00 every Center tablet night as needed for Muscle spasms . magnesium 2020- No 1{tbl} QD Take [address] oxide 1-04 -28 tablet by [facility] - (MAG-OX) 00:00: 00:00 mouth Medical 400 mg 00 :00 daily. [place] (241.3 mg magnesium) tablet omeprazole 2019-11 No 20mg QD Take [address] (PriLOSEC) 2-04 05-28 by mouth Luke s - 20 MG 00:00: 00:00 daily. Medical capsule 00 :00 [place] lactulose 2019-11 No 60mL QD Take [address] (CHRONULAC) 1-24 06-28 mLs by [facility] - 10 gram/15 00:00: 00:00 mouth Medic al mL solution 00 :00 nightly . [facility] ter methylPREDN 2020- No 1{tbl} QD Take [address] ISolone 7-27 -28 tablet by [place] - (MEDROL 00:00: 00:00 mouth Medical DOSEPACK) 4 00 :00 daily. Center mg tablet traMADoL 2020- No 1{tbl} QD Take [address] (ULTRAM) 50 2-17 -28 tablet by Jackeline kes - mg tablet 00:00: 00:00 mouth Medica l 00 :00 daily. [place] MethylPREDN MethylPREDN Yes Jorge as [facility] ISolone ISolone 9-19 Leonard directed [facility] - 00:00: Memoria 00 l Outpati ent [...] Name Observation Time Observation Value Comments Source Oxygen saturation in 2021-05-05 11:30:00 98 /min MAR Turcios - Arterial blood by Medical Ce nter Pulse oximetry Systolic blood 2021-05-05 11:30:00 134 mm[Hg] [facility] pressure [facility] Diastolic blood 2021-05-05 11:30:00 77 mm[Hg[facility] Heart rate 2021-05-05 11:30:00 81 /min [facility] Body temperature 2021-05-05 11:30:00 36.61 Leah [facility] Respiratory rate 2021-05-05 11:30:00 20 /min [facility] Body weight 2021-05-05 07:06:00 79.854 kg [facility] BMI 2021-05-05 07:06:00 32.20 kg/m2 [facility] Body height 2021-05-04 07:18:00 157.5 cm [facility] Procedures Procedure Date / Time Performed Performing Clinician Sourshay e HIGH SENSITIVITY 2021-05-04 20:26:00 Cooper Medina [facility] HC CAROTID DOPPLER DARRIUS 2021-05-04 18:08:00 Izabela Urena [facility] HIGH SENSITIVITY 2021-05-04 12:40:00 RustHeidy [facility] ECG 12-LEAD 2021-05-04 12:16:31 Heidy Zheng [facility] 2D ECHO W/ DOPPLER 2021-05-04 10:45:25 Izabela Urena [facility] (CW/PW/COLOR) [facility] BASIC METABOLIC PANEL 2021-05-04 04:16:00 Izabela Urena [facility] (7) Medical Center MAGNESIUM 2021-05-04 04:16:00 Izabela Urena [facility] CBC W/PLT COUNT & AUTO 2021-05-04 04:16:00 Izabela Urena [facility] CT ABDOMEN/PELVIS 2021-05-03 17:34:00 Izabela Urena [facility] WITHOUT IV CONTRAST Medical Cent er POCT-ACT 2021-05-03 16:05:00 Izabela Urena [facility] POCT-ACT 2021-05-03 14:56:00 Matthias Munroe [facility] POCT-ACT 2021-05-03 11:58:00 Ar [facility] POCT-ACT 2021-05-03 11:42:00 Dada [facility] L CATH / CORONARY ANGIOS 2021-05-03 10:29:00 Dada [facility] & IVUS [facility] BASIC METABOLIC PANEL 2021-05-03 08:18:00 Roberto Carlos [facility] (7) [facility] CBC W/PLT COUNT & AUTO 2021-05-03 08:18:00 [facility] S t [facility] - DIFFERENTIAL [facility] PROTHROMBIN TIME/INR 2021-05-03 08:18:[address] [facility] VASCULAR DIAGRAM -SCAN 2021-05-03 00:00:00 Provider, Default [facility] CARDIAC CATH REPORT - 2021-05-03 00:00:00 Provider, Default [facility] CBC W/PLT COUNT & AUTO 2021-04-29 10:13:00 Dada [employer] [facility] DIFFERENTIAL [facility] BASIC METABOLIC PANEL 2021-04-29 10:13:00 [facility] () [facility] PROTHROMBIN TIME/INR 2021-04-29 10:13:00 [facility] SARS-COV2/RT-PCR ([facility] & 2021-04-29 10:02:[address] [facility] - REF LABS) [facility] ECG 12-LEAD 2021-04-29 09:53:57 Unknown, Hl7 Doctor [facility] CTA HEART CORONARY WITH 2021-03-22 12:33:00 Mohan Monroy [facility] - CALCIUM EVALUATION Medical Cente r WITHOUT FFR POCT-CREATININE 2021-03-22 10:08:00 Mohan Monroy [facility] PERIPHERAL ANGIOS / 2021-01-08 13:10:00 Mariusz De La Cruz [facility] - AORTOGRAM [facility] ECG 12-LEAD 2021-01-08 09:54:[address] [facility] CARDIAC CATH REPORT - 2021-01-08 00:00:00 Provider, Default [facility] - SCAN Scanning [facility] CBC W/PLT COUNT & AUTO 2021-01-04 13:06:00 Mariusz De La Cruz [facility] - DIFFERENTIAL [facility] BASIC METABOLIC PANEL 2021-01-04 13:06:00 Mariusz De La [facility] - (7) [facility] PROTHROMBIN TIME/INR 2021-01-04 13:06:00 Mariusz De La [facility] - [facility] SARS-COV2/RT-PCR ([facility] & 2021-01-04 12:49:00 [facility] Mariusz [facility] - REF LABS) [facility] Plan of Care Planned Activity Planned Date Details Comments Source Future Scheduled Test 2027-09-27 Screening for MAR Paul - 00:00:00 malignant neoplasm of [facility] colon (procedure) [code = 874311239] Future Scheduled Test 2022-03-09 Lipid panel [facility] - 00:00:00 (procedure) [code = [facility] [id number]] Future Scheduled Test 2021-07-07 INFLUENZA VACCINE (#1) [facility] - 00:00:00 [code = INFLUENZA Medical nter VACCINE (#1)] Future Scheduled Test 2020-11-[address] [facility] - 00:00:00 (12+) [code = [facility] DEPRESSION SCREENING (12+)] Future Scheduled Test 2006 SHINGLES VACCINES ([address] [facility] - 00:00:00 of 2) [code = SHINGLES Medic al Center VACCINES (1 of 2)] Future Scheduled Test 1975 DTAP/TDAP/TD VACCINES [facility] - 00:00:00 (1 - Tdap) [code = Medical C enter DTAP/TDAP/TD VACCINES (1 - Tdap)] Future Scheduled Test 1974 HEPATITIS C SCREENING [facility] - 00:00:00 [code = HEPATITIS C Medical Center SCREENING] Future Scheduled Test 1968 COVID-19 VACCINE (1) [facility] - 00:00:00 [code = COVID-[address] VACCINE (1)] Future Scheduled Test [address] [facility] - 00:00:00 0-64 YRS (1 of 1 - Medical C enter PPSV23) [code = PNEUMOCOCCAL VACCINE 0-64 YRS (1 of 1 - PPSV23)] Future Appointment 2021-05-13 Hai Ram MD, [address] [facility] - 11:45:00 Bertner; [address], [place] [address] Future Appointment 2021-05-13 Hai Ram MD, [address] [facility] [facility] - 11:45:00 Bertner; Jez [address], [place] [address] Encounters Start End Encounter Admission Attending Care Care Encounter Source Date/Time Date/Time Type Type Clinicians Facility Department ID 2021-04-29 2021-04-29 Outpatient [facility] [id number] [facility] 00:00:00 23:59:00 [facility] 2021-04-27 2021-04-27 Outpatient [facility] [id number] [facility] St 00:00:00 00:00[facility] 2021-04-20 2021-04-20 Outpatient [facility] [id number] [facility] St 00[facility]00:00 00:00:00 [facility] 2021-04-14 2021-04-16 Office JOSIANE Simmons [id number] 14:55:42 16:49:34 Visit Chuckie AMBULATOR [id number] Y 0.2.7.2.686 [id number] 2021-04-14 2021-04-16 Outpatient JOSIANE SIMMONS [id number] [facility] 14:55:42 16:49:34 CHUCKIE Mina ege of Medicin e 2021-04-08 2021-04-08 Office JOSIANE Ruiz [id number] 13:31:23 14:01:23 Visit Basil AMBULATOR [id number] Y 0.2.7.2.686 [id number] 2021-03-03 2021-03-03 Office JOSIANE Simmons [id number] 12:05:37 12:20:37 Visit Chuckie AMBULATOR [id number] Y 0.2.7.2.686 [id number] 2021-02-18 2021-02-18 Outpatient [facility] [id number] [facility] 2021-02-16 2021-02-16 Office Juma, BCM 1.2.840.114 [id number] 09:21:06 10:13:12 Visit Mohan AMBULATOR 350.1.13.21 Y 0.2.7.2.686 [id number] 2021-01-25 2021-01-25 Office Wesly BCM 1.2.840.114 [id number] 11:06:09 12:30:03 Visit Mariusz AMBULATOR 350.1.13.21 Gonzalo Y 0.2.7.2.686 [id number] 2020-12-07 2020-12-07 Office De La Cruz, BCM 1.2.840.114 [id number] 09:22:17 15:25:48 Visit Mariusz AMBULATOR 350.1.13.21 Gonzalo Y 0.2.7.2.686 [id number] 2020-12-02 2020-12-02 Office Simmons BCM 1.2.840.114 [id number] 14:28:34 14:43:34 Visit Chuckie AMBULATOR 350.1.13.21 Y 0.2.7.2.686 [id number] 2020-11-25 2020-11-25 Outpatient [facility] [id number] [facility] 2020-11-16 2020-11-16 Outpatient [facility] [id number] [facility] 2020-10-12 2020-10-12 Office CARINE AlvaradoM 1.2.840.114 [id number] 13:52:12 14:22:12 Visit Khai AMBULATOR 350.1.13.21 Y 0.2.7.2.686 [id number] 2020-09-08 2020-09-08 Outpatient [facility] [id number] MH 07:57:00 07:57:00 [facility] 2020-08-06 2020-08-06 Office JOSIANE Alvarado 1.2.840.114 [id number] 14:02:58 14:46:32 Visit Khai AMBULATOR 350.1.13.21 Y 0.2.7.2.686 [id number] 2020-07-28 2020-07-28 Outpatient STLMLC [facility] [id number] [facility] 2020-07-16 2020-07-16 [facility] [id number] 16:13:00 16:13:00 [facility] 2020-07-14 2020-07-14 [facility] [id number] 09:30:00 09:30:00 [facility] 2020-06-01 2020-06-01 [facility] [id number] 09:00:00 09:00:00 [facility] 2020-04-23 2020-04-23 Office JOSIANE Monroy 1.2.840.114 [id number] 11:27:32 11:47:32 Visit Mohan AMBULATOR 350.1.13.21 Y 0.2.7.2.686 [id number] 2020-01-22 2020-01-22 Office JOSIANE Steiner 1.2.840.114 [id number] 09:35:07 10:05:07 Visit Kalen AMBULATOR 350.1.13.21 Young Y 0.2.7.2.686 [id number] 2020-01-22 2020-01-22 [facility] [id number] 08:07:00 08:07:00 [facility] ent Clinics 2020-01-08 2020-01-08 [facility] [id number] 12:23:00 12:23:00 [facility] ent [facility] 2019-12-23 2019-12-23 [facility] [id number] 08:00:00 08:00:00 [facility] ent Clinics 2019-10-10 2019-10-10 [facility] [id number] 09:37:00 09:37:00 [facility] ent Clinics 2019-10-09 2019-10-09 [facility] [id number] 15:29:00 15:29:00 [facility] ent [facility] 2019-09-09 2019-09-09 [facility] [id number] 16:12:00 16:12:00 [facility] 2019-09-02 2019-09-02 [facility] [id number] 12:24:00 12:24:00 [facility] ent [facility] 2019-08-22 2019-08-22 [facility] [id number] 09:00:00 09:00:00 [facility] 2019-08-16 2019-08-16 Office JOSIANE Tuttle 1.2.840.114 [id number] 12:53:30 13:30:16 Visit Ruth AMBULATOR 350.1.13.21 Mandeep Mendez 0.2.7.2.686 [id number] 2019-07-25 2019-07-25 Outpatient Tila Adornot [id number] 10:00:00 10:00:00 t [facility] 2019-07-21 2019-07-21 Outpatient Tila Tadeo [id number] 20:21:00 20:21:00 t [facility] Results Test Description Test Time Test Comments Results Result Sourc e Comments CARDIAC CATH Ordered by an MAR Andrea kes REPORT - SCAN 1 unspecified provider. - Medical 10:36:37 [place] VASCULAR DIAGRAM Ordered by an MAR [facility] -SCAN 1 unspecified provider. - edical 10:36:37 [place] Carotid doppler 2021-04-[address] [facility] bilateral 0 ECHO HEARTLAB - Medical 09:13:16 [facility] Impression1. There is <50% diameter reduction (approximately 32% by 2-D measurement)in the internal carotid artery with a peak velocity of 90/20 cm/sec andheterogeneous/shad owing plaque.2. There is non-occluding plaque in the external carotid artery.3. There is non-occluding plaque in the common carotid artery.4. The vertebral artery flow is antegrade and normal.5. The subclavian artery is within normal limits where visualized.Left Impression1. There is <50% diameter reduction (approximately 46% by 2-D measurement)in the internal carotid artery with a peak velocity of 123/33 cm/sec andheterogeneous shadowing plaque.2. There is non-occluding plaque in the external carotid artery.3. There is non-occluding plaque in the common carotid artery.4. The vertebral artery flow is antegrade and normal.5. The subclavian artery is within normal limits where visualized. Conclusions Summary Carotid duplex scanning and color flow imaging were performed bilaterally. The arteries were adequately visualized. The bilateral internal carotid arteries had <50% hemodynamically insignificant stenosis (approximately 32% by 2-D measurement on the right, approximately 46% by 2-D measurement on the left) with heterogeneous/shadowi ng plaque. The vertebral artery flow was antegrade and normal bilaterally. Signature - - Velocities are measured in cm/s ; Diameters are measured in cm Carotid Right Measurements+-------- -------+----+----+--- --+ +----- +-------- ---+!Location !PSV !EDV !Angle!%Stenosis 2D!%Stenosis Doppler!Tortuosity !+ +--- -+----+-----+-------- ----+ -+ +!Prox CCA !80.3!13.5!60 ! ! ! !+ +--- -+----+-----+-------- ----+ -+ +!Dist CCA !77.4!18.2!60 ! ! ! !+ +--- -+----+-----+-------- ----+ -+ +!Prox ICA !90.4!20.4!60 !32% !<50% ! !+ +--- -+----+-----+-------- ----+ -+ +!Dist ICA !95.1!29.9!60 ! ! ! !+ +--- -+----+-----+-------- ----+ -+ +!Prox ECA !146 !25.1!60 ! ! ! !+ +--- -+----+-----+-------- ----+ -+ +!Verteb ral !43.2!13 !60 ! ! ! !+ +--- -+----+-----+-------- ----+ -+ +!Prox Subclavian!76.2! !60 ! ! ! !+ +--- -+----+-----+-------- ----+ -+ + - Additional Measurements:ICAPSV/C CAPSV 1.23.ICAEDV/CCAEDV 2.21. Carotid Left Measurements+-------- -------+----+----+--- --+ +----- +-------- ---+!Location !PSV !EDV !Angle!%Stenosis 2D!%Stenosis Doppler!Tortuosity !+ +--- -+----+-----+-------- ----+ -+ +!Prox CCA !96.6!23.6!60 ! ! ! !+ +--- -+----+-----+-------- ----+ -+ +!Dist CCA !109 !28.3!60 ! ! ! !+ +--- -+----+-----+-------- ----+ -+ +!Prox ICA !123 !33.4!60 !46% !<50% ! !+ +--- -+----+-----+-------- ----+ -+ +!Dist ICA !113 !38.3!60 ! ! ! !+ +--- -+----+-----+-------- ----+ -+ +!Prox ECA !146 !17.7!60 ! ! ! !+ +--- -+----+-----+-------- ----+ -+ +!Verteb ral !51.5!13 !60 ! ! ! !+ +--- -+----+-----+-------- ----+ -+ +!Prox Subclavian!97.4! !60 ! ! ! !+ +--- -+----+-----+-------- ----+ -+ + - Additional Measurements:ICAPSV/C CAPSV 1.13.ICAEDV/CCAEDV 1.62. Interface, External Ris In - 05/05/2021 9:13 AM CDTPV LAB - Carotid Duplex Study Demographics Patient Name KERON TELLEZ Date of Study 05/04/2021 ZANDER Age 65 Visit Number [id number] Gender Male Accession Number [id number] Date of 1955 Referring LILIA WEATHERS Room Number 634 Physician General Superintendent Mendez Carrillo Interpreting Heidy Atwood RVT Physician ProcedureType of Study: Cerebral: Carotid, CAROTID DOPPLER, BILATERAL. Indications for Study:Pre-op CABG.Patient Status:Pending Discharge.Study Location:Vascular Lab.Technical Quality:Adequate visualization.Risk FactorsHistory of Disease+---------+--- -+ +! Diagnosis!Date!Commen ts !+---------+----+---- +!Other ! !Stroke (cerebrum) !! ! !TIA (transient ischemic attack) !! ! !migraine !+---------+----+---- +Impress ionsRight Impression1. There is <50% diameter reduction (approximately 32% by 2-D measurement)in the internal carotid artery with a peak velocity of 90/20 cm/sec andheterogeneous/shad owing plaque.2. There is non-occluding plaque in the external carotid artery.3. There is non-occluding plaque in the common carotid artery.4. The vertebral artery flow is antegrade and normal.5. The subclavian artery is within normal limits where visualized.Left Impression1. There is <50% diameter reduction (approximately 46% by 2-D measurement)in the internal carotid artery with a peak velocity of 123/33 cm/sec andheterogeneous shadowing plaque.2. There is non-occluding plaque in the external carotid artery.3. There is non-occluding plaque in the common carotid artery.4. The vertebral artery flow is antegrade and normal.5. The subclavian artery is within normal limits where visualized. Conclusions Summary Carotid duplex scanning and color flow imaging were performed bilaterally. The arteries were adequately visualized. The bilateral internal carotid arteries had <50% hemodynamically insignificant stenosis (approximately 32% by 2-D measurement on the right, approximately 46% by 2-D measurement on the left) with heterogeneous/shadowi ng plaque. The vertebral artery flow was antegrade and normal bilaterally. Signature - - Velocities are measured in cm/s ; Diameters are measured in cmCarotid Right Measurements+-------- -------+----+----+--- --+ +----- +-------- ---+!Location !PSV !EDV !Angle!%Stenosis 2D!%Stenosis Doppler!Tortuosity !+ +--- -+----+-----+-------- ----+ -+ +!Prox CCA !80.3!13.5!60 ! ! ! !+ +--- -+----+-----+-------- ----+ -+ +!Dist CCA !77.4!18.2!60 ! ! ! !+ +--- -+----+-----+-------- ----+ -+ +!Prox ICA !90.4!20.4!60 !32% !<50% ! !+ +--- -+----+-----+-------- ----+ -+ +!Dist ICA !95.1!29.9!60 ! ! ! !+ +--- -+----+-----+-------- ----+ -+ +!Prox ECA !146 !25.1!60 ! ! ! !+ +--- -+----+-----+-------- ----+ -+ +!Verteb ral !43.2!13 !60 ! ! ! !+ +--- -+----+-----+-------- ----+ -+ +!Prox Subclavian!76.2! !60 ! ! ! !+ +--- -+----+-----+-------- ----+ -+ + - Additional Measurements:ICAPSV/C CAPSV 1.23.ICAEDV/CCAEDV 2.21.Carotid Left Measurements+-------- -------+----+----+--- --+ +----- +-------- ---+!Location !PSV !EDV !Angle!%Stenosis 2D!%Stenosis Doppler!Tortuosity !+ +--- -+----+-----+-------- ----+ -+ +!Prox CCA !96.6!23.6!60 ! ! ! !+ +--- -+----+-----+-------- ----+ -+ +!Dist CCA !109 !28.3!60 ! ! ! !+ +--- -+----+-----+-------- ----+ -+ +!Prox ICA !123 !33.4!60 !46% !<50% ! !+ +--- -+----+-----+-------- ----+ -+ +!Dist ICA !113 !38.3!60 ! ! ! !+ +--- -+----+-----+-------- ----+ -+ +!Prox ECA !146 !17.7!60 ! ! ! !+ +--- -+----+-----+-------- ----+ -+ +!Verteb ral !51.5!13 !60 ! ! ! !+ +--- -+----+-----+-------- ----+ -+ +!Prox Subclavian!97.4! !60 ! ! ! !+ +--- -+----+-----+-------- ----+ -+ + - Additional Measurements:ICAPSV/C CAPSV 1.13.ICAEDV/CCAEDV 1.62. ECG 12 lead 2021-04-08 Interface, External [facility] 0 Ris In - 05/05/2021 - Med ical 06:40:47 6:40 AM Center CDTVentricular Rate 89 BPMAtrial Rate 89 BPMP-R Interval 148 msQRS Duration 92 msQ-T Interval 344 msQTC Calculation(Bazett) 418 msP Marshall 36 degreesR Marshall 36 degreesT Marshall 40 degreesNormal sinus rhythmNormal ECGWhen compared with ECG of 29-APR-2021 09:53,No significant change was foundConfirmed by MD BERNABE, BENJAMIN Kauffman ([id number]) on 05/05/2021 6:40:44 AM High Sensitivity Troponin I ([facility] Only) 2021-05-04 2 1:19:00 Test Item Value Reference Range Interpretation Comme nts Troponin I HS (test 36 pg/ml See_Comment H [Aut omated message] The code = 78043-7) system which generated this result tra nsmitted reference range : <=35. The reference r maxine was not used to int erpret this result as normal/abnormal . JOSEPH (test code = JOSEPH) Tactical/Mobile Watch Officer ID - CINDY BThe PRODUCT DEMONSTRATOR STAT High Sensitivity Troponin-I results should be used in conjunction with other diagnostic information such as ECG, clinical observations and information, and patient symptoms to aid in the diagnosis of MN. Lab Interpretation (test Abnormal code = 19004-0) [facility] TROPONIN [id number] 21:19:00 Test Item Value Reference Range Interpretation Comments HIGH SENSITIVITY 36 pg/ml See_Comment H [Automated message] TROPONIN I (test code = The system which 2358374) generated this result transmitted ref erence range: <=35. Th e reference range was not used to int erpret this result as normal/abnormal . Tactical/Mobile Watch Officer ID - CINDY BThe PRODUCT DEMONSTRATOR STAT High Sensitivity Troponin-I results should be used in conjunction with other diagnostic information such as ECG, clinical observations and information, and patient symptoms to aid in the diagnosis of MN.2D Echo W/Doppler(CW/PW/Color)2021-05-04 13:45:39Ejection FractionSLEH ECHO HEARTLAB MKCKESSON CPACSInterface, External Ris In - 05/04/2021 1:45 PM CDTTransthoracic Echocardiography Report (TTE) Demographics Patient Name KERON TELLEZ Dateof Study 05/04/2021 ZANDER SHEPHERD [id number] Gender Male Visit Number [id number] Race Unknown [id number] Room Number 634 Number Date of 1955 Referring Physician Ar Rizzo MD Age 65 year(s) 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 Normal left ventricular chamber size. Normal wall thickness. Normal overall left ventricular systolic function LVEF >60%. No apparent segmental wall motionabnormalities. Grade 1 diastolic dysfunction (impaired relaxation and low-normal LA pressure). 2. No rmal right ventricle structure and function. S' 12 cm/sec. 3. LA size is normal . RA size is normal. Technically suboptimal IV saline study at rest and with Valsalva is negative for presence of inter-atrial shunt. However, prior echo in 02/2019 clearly demonstrates presence of inter-atrial shunt at rest and with Valsalva. Please consider JULIA for further evaluation of the inter-atrial septum. 4. TV structure is normal. Unable to estimate peak systolic PA pressure; inadequate TR velocity signal. Theestimated RA pressure by IVC dynamics 0-5mmHg . Previous Study Compared to prior study dated 03/04/2019, no significant changes in LV, RV function. As noted above, prior study demonstrated presence of an inter-atrial shunt on the IV saline contrast images. Signature Findings Rhythm/BP Regular sinus rhythm during the exam. Left Ventricle Normal left ventricular chamber size. Normal wall thickness. Normal overall left ventricular systolic function LVEF >60%. No apparent segmental wall motion abnormalities. Grade 1 diastolic dysfunction (impaired relaxation and low-normal LA pressure). Left Atrium LA size is normal . Right Ventricle Normal right ventricle structure and function. S' 12 cm/sec. Right Atrium RA size is normal. Atrial Septum Technically suboptimal IV saline study at rest and with Valsalva is negative for presence of inter-atrial shunt. However, prior echo in 02/2019 clearly demonstrates presence of inter-atrial shunt at rest and with Valsalva. Please consider JULIA for further evaluation of the inter-atrial septum. Aortic Valve Mild aortic valve and aortic annular calcification. There is no aortic stenosis. There is mild aortic regurgitation. Mitral Valve Mild mitral leaflet and annular calcification. Trace mitral regurgitation. Tricuspid Valve TV structure is normal. Unable to estimate peak systolic PA pressure; inadequate TR velocity signal. Pulmonic Valve Normal PV structure and function by limited views and Doppler. Aorta Aortic root size (SInus of Valsalva diameter) is normal . Proximal ascending aorta size is normal . Pericardium No significant pericardial effusion is visualized. An echo lucent space is noted consistent with prominent pericardial fat pad. IVC/SVC/PA/PV/Pleural The estimated RA pressure by IVC dynamics 0-5mmHg . Chambers/Structures Left Atrium LA Volume: 39.45 ml LA Area: 12.16 cm^2 LA Vol. Index: 21 ml/m^2 Left Ventricle LVIDd: 4.71 cm LVEDV:102.83 ml LV Septum Diastolic: 0.74 cm LV PW Diastolic: 0.85 cm LVEDV Dinh's:62.94 ml LVESV Dinh's:21.29 ml LVEF Dinh's: 66.2 % LVEDVI: 33 ml/m^2 LVESVI: 11 ml/m^2 LVOT Diameter: 1.99 cm Right Atrium RA Vol. (Sngl Plane): 30.85 ml Right Ventricle RV Diast Dim.: 3 cm TAPSE: 1.6 cm RVOT VTI: 17.69 cm Aorta Ao Root S of Pamela.: 3.2 c m Ascending Aorta: 3.18 cm Doppler/Quantitative Measurements Mitral Valve MV Peak E-Wave: 0.72 m/s MV Peak A-Wave: 1 m/s E/A Ratio: 0.71 Peak Gradient: 2.05 mmHg Deceleration Time: 252 msec MV Robbie. Peak: Tissue Doppler E' Septal Velocity: 0.08 m/s E/E': 5.99 E' Lateral Velocity: 0.12 m/s Aortic Valve Peak Velocity: 1.15 m/s Mean Velocity: 0.74 m/s Peak Gradient: 5.29 mmHg Mean Gradient: 2.53 mmHg AV Area (cont inuity): 2.76 cm^2 AV VTI: 21.77 cm AV DVI: 0.89 LVOT Peak Velocity: 1.07 m/s Peak Gradient: 4.61 mmHg Mean Velocity: 0.74 m/s Mean Gradient: 2.51 mmHg LVOT Diameter: 1.99 cm LVOT VTI: 19.32 cm LVOT Area: 3.11 cm^2 LVOT SV:60.06 ml LVOT CO: 4.14 l/min LVOT CI: 2.19 l/min/m^2 Tricuspid Valve TR Velocity: 1.78 m/s TR Gradient: 12.7 mmHgAr[facility] HospitalH[facility] SENSITIVITY TROPONIN [id number] 13:20:00 Test Item Value Reference Range Interpretation Comments HIGH SENSITIVITY 36 pg/ml See_Comment H [Automated message] TROPONIN I (test code = The system which [id number]) generated this result transmitted ref erence range: <=35. Th e reference range was not used to int erpret this result as normal/abnormal . Tactical/Mobile Watch Officer ID - MARICEL CThe PRODUCT DEMONSTRATOR STAT High Sensitivity Troponin-I results should be used in conjunction with other diagnostic information such as ECG, clinical observations and information, and patientsymptoms to aid in the diagnosis of MN. Basic metabolic [id number] 04:46:00 Test Item Value Reference Range Interpretation Comments Sodium (test code = 140 meq/L 401-534 1786-2) Potassium (test 4.1 meq/L 3.5-5.1 code = 2823-3) Chloride (test code 106 meq/L 98-107 = 2075-0) CO2 (test code = 25 meq/L 2027-9) BUN (test code = 12 mg/dL 05-26 3094-0) Creatinine (test 0.80 mg/dL 0.57-1.25 code = 2160-0) Glucose (test code 99 mg/dL 70-105 = 2345-7) Calcium (test code 9.0 mg/dL 8.4-10.2 = 59451-9) EGFR (test code = 97 mL/min/1.73 [place] [address]-8) NOT ACCURATE CREATININE CLEARANCE IN PREDICTING GLOMERULAR FILTRATION RATE . ESTIMATED GFR I S NOT APPLICABLE FOR DIALYSIS PATIEN TS. JOSEPH (test code = Tactical/Mobile Watch Officer ID - JOSEPH) JAK Dawson [facility] Hospital[facility]esium2021-06-29 04:46:00 Test Item Value Reference Range Interpretation Comments Magnesium (test code = 2.1 mg/dL 1.6-2.6 53348-0) JOSEPH (test code = JOSEPH) Tactical/Mobile Watch Officer ID - JAK Dawson Lab Interpretation (test Normal code = 82786-0) [facility]OLIC [id number] 04:46:00 Test Item Value Reference Range Interpretation Comments SODIUM (BEAKER) 140 meq/L 136-145 (test code = 381) POTASSIUM (BEAKER) 4.1 meq/L 3.5-5.1 (test code = 379) CHLORIDE (BEAKER) 106 meq/L 98-107 (test code = 382) CO2 (BEAKER) (test 25 meq/L 22-29 code = 355) BLOOD UREA NITROGEN 12 mg/dL 7-21 (BEAKER) (test code = 354) CREATININE (BEAKER) 0.80 mg/dL 0.57-1.25 (test code = 358) GLUCOSE RANDOM 99 mg/dL 70-105 (BEAKER) (test code = 652) CALCIUM (BEAKER) 9.0 mg/dL 8.4-10.2 (test code = 697) EGFR (BEAKER) (test 97 mL/min/1.73 ESTIMA FABIAN GFR IS code = 1092) sq m NOT ACCURATE CREATININE CLEARANCE IN PREDICTING GLOMERULAR FILTRATION RATE . ESTIMATED GFR I S NOT APPLICABLE FOR DIALYSIS PATIEN TS. Tactical/Mobile Watch Officer ID - JAK [id number] 04:46:00 Test Item Value Reference Range Interpretation Comments MAGNESIUM (BEAKER) (test code = 2.1 mg/dL 1.6-2.6 627) Tactical/Mobile Watch Officer LUCIAN BENEDICT [facility] with platelet count + automated [id number] 04:32:00 Test Item Value Reference Range Interpretation Comments WBC (test code = 6690-2) 9.4 See_Comment [A utomated message] The system Edamam generated this result transmitted ref erence range: 3.5 - 10 .5 K/L. The refe rence range was not u sed to interpret this result as normal/abnor mal. RBC (test code = 789-8) 4.31 See_Comment L [Au tomated message] The system [employer]amam generated this result transmitted ref erence range: 4.63 - 6 .08 M/L. The refe rence range was not u sed to interpret this result as normal/abnor mal. MCHC (test code = 786-4) 31.9 See_Comment L [A utomated message] The system Edamam generated this result transmitted ref erence range: 32.3 - 3 6.5 GM/DL. The refe rence range was not u sed to interpret this result as normal/abnor mal. Hematocrit (test code = 40.4 % 40.1-51 4544-3) MCV (test code = 787-2) 93.7 fL 79-92.2 H MCH (test code = 785-6) 29.9 pg 25.7-32.2 RDW (test code = 788-0) 14.4 % 11.6-14.4 Platelets (test code = 174 See_Comment [Aut omated message] 777-3) The system Edamam generated this result transmitted ref erence range: 150 - 45 0 K/CU MM. The referen ce range was not u sed to interpret this result as normal/abnor mal. MPV (test code = 11.3 fL 9.4-12.4 55439-7) nRBC (test code = 413) 0 See_Comment [Aut omated message] The system Edamam generated this result transmitted ref erence range: 0 - 0 /1 00 WBC. The refere nce range was not u sed to interpret this result as normal/abnor mal. % Neutros (test code = 62 % 429) % Lymphs (test code = 28 % 430) % Monos (test code = 9 % 431) % Eos (test code = 432) 1 % % Baso (test code = 437) 1 % # Neutros (test code = 5.80 See_Comment H [Aut omated message] 670) The system Edamam generated this result transmitted ref erence range: 1.78 - 5 .38 K/L. The refe rence range was not u sed to interpret this result as normal/abnor mal. # Lymphs (test code = 2.63 See_Comment [Auto mated message] 414) The system Edamam generated this result transmitted ref erence range: 1.32 - 3 .57 K/L. The refe rence range was not u sed to interpret this result as normal/abnor mal. # Monos (test code = 0.85 See_Comment H [Autom ated message] 415) The system Edamam generated this result transmitted ref erence range: 0.30 - 0 .82 K/L. The refe rence range was not u sed to interpret this result as normal/abnor mal. # Eos (test code = 416) 0.08 See_Comment [Au tomated message] The system Edamam generated this result transmitted ref erence range: 0.04 - 0 .54 K/L. The refe rence range was not u sed to interpret this result as normal/abnor mal. # Baso (test code = 417) 0.05 See_Comment [A utomated message] The system Edamam generated this result transmitted ref erence range: 0.01 - 0 .08 K/L. The refe rence range was not u sed to interpret this result as normal/abnor mal. Immature 0 % 0-1 Granulocytes-Relative (test code = 2801) Lab Interpretation (test Abnormal code = 82509-3) [facility] W/PLT COUNT & AUTO [id number] 04:32:00 Test Item Value Reference Range Interpretation Comments WHITE BLOOD CELL COUNT (BEAKER) 9.4 K/ L 3.5-10.5 (test code = 775) RED BLOOD CELL COUNT (BEAKER) 4.31 M/ L 4.63-6.08 L (test code = 761) HEMOGLOBIN (BEAKER) (test code = 12.9 GM/DL 13.7-17.5 L 410) HEMATOCRIT (BEAKER) (test code = 40.4 % 40.1-51.0 411) MEAN CORPUSCULAR VOLUME (BEAKER) 93.7 fL 79.0-92.2 H (test code = 753) MEAN CORPUSCULAR HEMOGLOBIN 29.9 pg 25.7-32.2 (BEAKER) (test code = 751) MEAN CORPUSCULAR HEMOGLOBIN CONC 31.9 GM/DL 32.3-36.5 L (BEAKER) (test code = 752) RED CELL DISTRIBUTION WIDTH 14.4 % 11.6-14.4 (BEAKER) (test code = 412) PLATELET COUNT (BEAKER) (test 174 K/CU MM 150-450 code = 756) MEAN PLATELET VOLUME (BEAKER) 11.3 fL 9.4-12.4 (test code = 754) NUCLEATED RED BLOOD CELLS 0 /100 WBC 0-0 (BEAKER) (test code = 413) NEUTROPHILS RELATIVE PERCENT 62 % (BEAKER) (test code = 429) LYMPHOCYTES RELATIVE PERCENT 28 % (BEAKER) (test code = 430) MONOCYTES RELATIVE PERCENT 9 % (BEAKER) (test code = 431) EOSINOPHILS RELATIVE PERCENT 1 % (BEAKER) (test code = 432) BASOPHILS RELATIVE PERCENT 1 % (BEAKER) (test code = 437) NEUTROPHILS ABSOLUTE COUNT 5.80 K/ L 1.78-5.38 H (BEAKER) (test code = 670) LYMPHOCYTES ABSOLUTE COUNT 2.63 K/ L 1.32-3.57 (BEAKER) (test code = 414) MONOCYTES ABSOLUTE COUNT (BEAKER) 0.85 K/ L 0.30-0.82 H (test code = 415) EOSINOPHILS ABSOLUTE COUNT 0.08 K/ L 0.04-0.54 (BEAKER) (test code = 416) BASOPHILS ABSOLUTE COUNT (BEAKER) 0.05 K/ L 0.01-0.08 (test code = 417) IMMATURE GRANULOCYTES-RELATIVE 0 % 0-1 PERCENT (BEAKER) (test code = 2801) CT, [id number] 22:08:00Unlisted Reason for Exam - Click Yes and Enter Reason Below->YesUnlisted Reason for Exam->Evaluate descending aorta calcification to femoral iliac vessels, prior to cabgWill this procedure require oral contrast?->No [facility] CENTERName: KERON TELLEZ : 1955 Sex: MFINAL REPORT CT, ABDOMEN \T\ PELVIS, WITHOUT IV CONTRAST HISTORY: Unlisted Reason for ExamEvaluate descending aorta calcification to femoral iliac vessels, prior to CABG COMPARISON: None. TECHNIQUE: Computer tomography of the abdomen and pelvis without intravenous contrast. Dose modulation, iterative reconstruction, and/or weight-based adjustment of the mA/kV was utilized to reduce the radiation dose to as low as reasonably achievable. FINDINGS: Lack of intravenous contrast compromises evaluation of perfusion and for isodense lesions. Lung bases: Mild right coronary artery calcifications.Liver: Unremarkable.Gallbladder and bile ducts: Unremarkable.Spleen: Unremar kable.Pancreas: Unremarkable.Adrenals: UnremarkableKidneys and ureters: Contrast in the bilateral renal collecting systems without hydronephrosis. A right renal cyst Bowel: Nondilated bowel with no wall thickening. Normal appendix. Moderate colonic stool burdenBladder: Contrast in the urinary bladder. Otherwise unremarkable.Reproductive organs: Unremarkable.Lymph nodes: Unremarkable.Peritoneum: Unremarkable.Vessels: Extensive atherosclerotic calcifications of the abdominal aorta and bilateral common iliac arteries. Bilateral common iliac artery stents. Mild to moderate calcifications of the bilateral common femoral arteries. Post vascular access changes in the right groin with a small amount of blood products infiltrating soft tissues of the right groin without hematoma.Abdominal wall: As above.Bones: Degenerative changes of the lumbar spine most notable at L4-L5 and L5-S1. IMPRESSION: Lack of intravenous contrast compromises evaluation of perfusion and for isodense lesions. 1.Mild to moderatecalcifications of the bilateral common femoral arteries 2.Moderate to severe calcifications of the abdominal aorta and bilateral common iliac arteries with bilateral common iliac artery stents. Signed:Sharita Patelort Verified Date/Time: 05/03/2021 22:08:57 Reading Location: [address] Transitional Reading Room CT abdomen/pelvis without iv [id number] 22:08:00Interface, External Ris In - 05/03/2021 10:[address], ABDOMEN \T\ PELVIS, WITHOUT IV CONTRAST HISTORY: Unlisted Reason for ExamEvaluate descending aorta calcificat ion to femoral iliac vessels, prior to CABG COMPARISON: None. TECHNIQUE: Computer tomography of the abdomen and pelvis without intravenous contrast. Dose modulation, iterative reconstruction, and/or weight-based adjustment of the mA/kV was utilized to reduce the radiation dose to as low as reasonably achievable. FINDINGS: Lack of intravenous contrast compromises evaluation of perfusion and for isodense lesions. Lung bases: Mild right coronary artery calcifications.Liver: Unremarkable.Gallbladder and bile ducts: Unremarkable.Spleen: Unremarkable.Pancreas: Unremarkable.Adrenals: UnremarkableKidneys and ureters: Contrast in the bilateral renal collecting systems without hydronephrosis. A right renalcyst Bowel: Nondilated bowel with no wall thickening. Normal appendix. Moderate colonic stool burdenBladder: Contrast in the urinary bladder. Otherwise unremarkable.Reproductive organs: Unremarkable.Lymph nodes: Unremarkable.Peritoneum: Unremarkable.Vessels: Extensive atherosclerotic calcifications of the abdominal aorta and bilateral common iliac arteries. Bilateral common iliac artery stents. Mildto moderate calcifications of the bilateral common femoral arteries. Post vascular access changes inthe right groin with a small amount of blood products infiltrating soft tissues of the right groin without hematoma.Abdominal wall: As above.Bones: Degenerative changes of the lumbar spine most notableat L4-L5 and L5-S1. IMPRESSION: Lack of intravenous contrast compromises evaluation of perfusion and for isodense lesions. 1.Mild to moderate calcifications of the bilateral common femoral arteries 2.Moderate to severe calcifications of the abdominal aorta and bilateral common iliac arteries with bilateral common iliac artery stents. Signed: Sharita Patel Verified Date/Time: 05/03/2021 22:08:57 Reading Location: [facility] C013 Transitional Reading Room [facility] ACTIVATED CLOTTING [id number] 16:21:00 Test Item Value Reference Range Interpretation Comments Activated Clotting Time 131 sec : 74 -137 seconds, (test code = 441) Baseline: TESTED AT [address], [facility] 30: Tactical/Mobile Watch Officer/Techni jolanta ID = [id number] for ILLORY (V), IGNACIO [facility]PO[facility]-[id number] 16:21:00 Test Item Value Reference Range Interpretation Comments ACTIVATED CLOTTING TIME 131 sec : 74 -137 seconds, (BEAKER) (test code = Baseli ne: TESTED AT 441) [address], [facility] 30: Tactical/Mobile Watch Officer/Techni jolanta ID = [id number] for ILLORY (V), IGNACIO [id number] 15:12:00 Test Item Value Reference Range Interpretation Comments ACTIVATED CLOTTING TIME 158 sec : 74 -137 seconds, (BEAKER) (test code = Baseli ne: TESTED AT 441) [address], [facility] 30: Tactical/Mobile Watch Officer/Techni jolanta ID = [id number] for ILLORY (V), IGNACIO [id number] 12:13:00 Test Item Value Reference Range Interpretation Comments ACTIVATED CLOTTING TIME 290 sec : 74 -137 seconds, (BEAKER) (test code = Baseli ne: TESTED AT 441) [address], [facility] 30: Tactical/Mobile Watch Officer/Techni jolanta ID = [id number] for CA RPIO, VIRGINIE [id number] 12:00:00 Test Item Value Reference Range Interpretation Comments ACTIVATED CLOTTING TIME 252 sec : 74 -137 seconds, (BEAKER) (test code = Baseli ne: TESTED AT 441) [address], [facility] 30: Tactical/Mobile Watch Officer/Techni jolanta ID = [id number] for CA RPIO, VIRGINIE BASIC METABOLIC [id number] 08:47:00 Test Item Value Reference Range Interpretation Comments SODIUM (BEAKER) 139 meq/L 136-145 (test code = 381) POTASSIUM (BEAKER) 4.0 meq/L 3.5-5.1 (test code = 379) CHLORIDE (BEAKER) 105 meq/L 98-107 (test code = 382) CO2 (BEAKER) (test 25 meq/L 22-29 code = 355) BLOOD UREA NITROGEN 9 mg/dL 7-21 (BEAKER) (test code = 354) CREATININE (BEAKER) 0.82 mg/dL 0.57-1.25 (test code = 358) GLUCOSE RANDOM 109 mg/dL 70-105 H (BEAKER) (test code = 652) CALCIUM (BEAKER) 9.2 mg/dL 8.4-10.2 (test code = 697) EGFR (BEAKER) (test 95 mL/min/1.73 ESTIMA FABIAN GFR IS code = 1092) sq m NOT ACCURATE CREATININE CLEARANCE IN PREDICTING GLOMERULAR FILTRATION RATE . ESTIMATED GFR I S NOT APPLICABLE FOR DIALYSIS MICHAELA BECERRIL. Tactical/Mobile Watch Officer ID - AAHAMIDProthrombin time/[id number] 08:38:00 Test Item Value Reference Interpretation Comments Range Protime (test code = 13.1 See_Comment [Autom ated 8312-2) message] The system which generated this result transmitted reference range : 11.9 - 14.2 seconds. The reference range was not used to interpret this result as normal/abnormal . INR (test code = 1.01 See_Comment [Automated 5811-6) message] The system which generated this result transmitted reference range : <=5.90. The reference range was not used to interpret this result as normal/abnormal . JOSEPH (test code = RECOMMENDED JOSEPH) COUMADIN/WARFARIN INR THERAPY RANGESSTANDARD DOSE: 2.0 - 3.0 Includes: PROPHYLAXIS for venous thrombosis, systemic embolization; TREATMENT for venous thrombosis and/or pulmonary embolus.HIGH RISK: Target INR is 2.5-3.5 for patients with mechanical heart valves. Lab Interpretation Normal (test code = 16552-1) [facility]/[id number] 08:38:00 Test Item Value Reference Range Interpretation Comments PROTIME (BEAKER) 13.1 seconds 11.9-14.2 (test code = 759) INR (BEAKER) (test 1.01 See_Comment [Automat ed message] code = 370) The system Doostangic h generated this result transmitted ref erence range: <=5.90. The reference range was not used to int erpret this result as normal/abnormal . RECOMMENDED COUMADIN/WARFARIN INR THERAPY RANGESSTANDARD DOSE: 2.0 - 3.0 Includes: PROPHYLAXIS forvenous thrombosis, systemic embolization; TREATMENT for venous thrombosis and/or pulmonary embolus.HIGH RISK: Target INR is 2.5-3.5 for patients with mechanical heart valves.CBC W/PLT COUNT & AUTO DIFFERENTIAL 2021-05-03 08:29:00 Test Item Value Reference Range Interpretation Comments WHITE BLOOD CELL COUNT (BEAKER) 7.3 K/ L 3.5-10.5 (test code = 775) RED BLOOD CELL COUNT (BEAKER) 4.57 M/ L 4.63-6.08 L (test code = 761) HEMOGLOBIN (BEAKER) (test code = 13.7 GM/DL 13.7-17.5 410) HEMATOCRIT (BEAKER) (test code = 42.5 % 40.1-51.0 411) MEAN CORPUSCULAR VOLUME (BEAKER) 93.0 fL 79.0-92.2 H (test code = 753) MEAN CORPUSCULAR HEMOGLOBIN 30.0 pg 25.7-32.2 (BEAKER) (test code = 751) MEAN CORPUSCULAR HEMOGLOBIN CONC 32.2 GM/DL 32.3-36.5 L (BEAKER) (test code = 752) RED CELL DISTRIBUTION WIDTH 14.4 % 11.6-14.4 (BEAKER) (test code = 412) PLATELET COUNT (BEAKER) (test 176 K/CU MM 150-450 code = 756) MEAN PLATELET VOLUME (BEAKER) 10.8 fL 9.4-12.4 (test code = 754) NUCLEATED RED BLOOD CELLS 0 /100 WBC 0-0 (BEAKER) (test code = 413) NEUTROPHILS RELATIVE PERCENT 64 % (BEAKER) (test code = 429) LYMPHOCYTES RELATIVE PERCENT 26 % (BEAKER) (test code = 430) MONOCYTES RELATIVE PERCENT 9 % (BEAKER) (test code = 431) EOSINOPHILS RELATIVE PERCENT 1 % (BEAKER) (test code = 432) BASOPHILS RELATIVE PERCENT 1 % (BEAKER) (test code = 437) NEUTROPHILS ABSOLUTE COUNT 4.64 K/ L 1.78-5.38 (BEAKER) (test code = 670) LYMPHOCYTES ABSOLUTE COUNT 1.87 K/ L 1.32-3.57 (BEAKER) (test code = 414) MONOCYTES ABSOLUTE COUNT (BEAKER) 0.63 K/ L 0.30-0.82 (test code = 415) EOSINOPHILS ABSOLUTE COUNT 0.06 K/ L 0.04-0.54 (BEAKER) (test code = 416) BASOPHILS ABSOLUTE COUNT (BEAKER) 0.04 K/ L 0.01-0.08 (test code = 417) IMMATURE GRANULOCYTES-RELATIVE 0 % 0-1 PERCENT (BEAKER) (test code = 2801) SARS-CoV2/RT-PCR (Asymptomatic ONLY)2021-04-29 18:08:00 Test Item Value Reference Range Interpretation Comments SARS-COV2/RT-PCR Negative Not Detected, (test code = Negative, See 64853-5) external report for linked test [facility]COV-2 [facility] (test code = 53327-5) JOSEPH (test code = Negative result for this JOSEPH) test determines that SARS-CoV-2 RNA was not [...] limit of detection for this assay is 800 copies/mL. This SARS CoV-2 test is a [...] revoked under Section 564(g) of the Act. Fact Sheet for Healthcare Providers:https://www.3Scan.sMedio/sites/default/f kwame/product/documents/F act_Sheet_HC_Providers_L ivm_DTOY-ElR-9.pdf Fact Sheet for Healthcare Patients:https://www.M[employer]/sites/default/fi les/product/documents/Fa ct_Sheet_Patients_Lyra_S ARS-CoV-2.pdf Performing Laboratory:[facility] [place] [address] [facility])2021-04-29 18:08:00 Test Item Value Reference Range Interpretation Comments SARS-COV2/RT-PCR (test Negative Not Detected, Negative, code = 6175342) See external report for linked test SARS-COV-2 PERFORMING LAB [facility] (test code = 2285764) Negative result for this test determines that [...] limit of detection for this assay is 800 copies/mL.This SARS CoV-2 test is a real-time [...] is revoked under Section 564(g) of the Act.Fact Sheet for Healthcare Providers:https://www.Vycon/sites/default/files/product/documents/Fact_Shee e_FD_Zlidxpkpg_Pzvi_WNOX-ItU-4.pdfFact Sheet for Healthcare Patients:https://www.[employer]/sites/default/files/product/ documents/Hjvr_Jpjya_Emqutqis_Mimv_PZUG-WgM-5.pdfPerforming Laboratory:[place] [address], [place] [address]NNLCB METABOLIC PANEL 2021-04-29 13:20:00 Test Item Value Reference Range Interpretation Comments SODIUM (BEAKER) 137 meq/L 136-145 (test code = 381) POTASSIUM (BEAKER) 4.4 meq/L 3.5-5.1 (test code = 379) CHLORIDE (BEAKER) 103 meq/L 98-107 (test code = 382) CO2 (BEAKER) (test 24 meq/L 22-29 code = 355) BLOOD UREA NITROGEN 11 mg/dL 7-21 (BEAKER) (test code = 354) CREATININE (BEAKER) 0.84 mg/dL 0.57-1.25 (test code = 358) GLUCOSE RANDOM 103 mg/dL 70-105 (BEAKER) (test code = 652) CALCIUM (BEAKER) 9.7 mg/dL 8.4-10.2 (test code = 697) EGFR (BEAKER) (test 92 mL/min/1.73 ESTIMA FABIAN GFR IS code = 1092) sq m NOT ACCURATE CREATININE CLEARANCE IN PREDICTING GLOMERULAR FILTRATION RATE . ESTIMATED GFR I S NOT APPLICABLE FOR DIALYSIS PATIEN TS. Tactical/Mobile Watch Officer ID - JAK MPROTHROMBIN TIME/[id number] 11:14:00 Test Item Value Reference Range Interpretation Comments PROTIME (BEAKER) 13.3 seconds 11.9-14.2 (test code = 759) INR (BEAKER) (test 1.03 See_Comment [Automat ed message] code = 370) The system Edamam generated this result transmitted ref erence range: <=5.90. The reference range was not used to int erpret this result as normal/abnormal . RECOMMENDED COUMADIN/WARFARIN INR THERAPY RANGESSTANDARD DOSE: 2.0 - 3.0 Includes: PROPHYLAXIS forvenous thrombosis, systemic embolization; TREATMENT for venous thrombosis and/or pulmonary embolus.HIGH RISK: Target INR is 2.5-3.5 for patients with mechanical heart valves.CBC W/PLT COUNT & AUTO DIFFERENTIAL 2021-04-29 11:03:00 Test Item Value Reference Range Interpretation Comments WHITE BLOOD CELL COUNT (BEAKER) 8.2 K/ L 3.5-10.5 (test code = 775) RED BLOOD CELL COUNT (BEAKER) 4.83 M/ L 4.63-6.08 (test code = 761) HEMOGLOBIN (BEAKER) (test code = 14.6 GM/DL 13.7-17.5 410) HEMATOCRIT (BEAKER) (test code = 45.3 % 40.1-51.0 411) MEAN CORPUSCULAR VOLUME (BEAKER) 93.8 fL 79.0-92.2 H (test code = 753) MEAN CORPUSCULAR HEMOGLOBIN 30.2 pg 25.7-32.2 (BEAKER) (test code = 751) MEAN CORPUSCULAR HEMOGLOBIN CONC 32.2 GM/DL 32.3-36.5 L (BEAKER) (test code = 752) RED CELL DISTRIBUTION WIDTH 14.5 % 11.6-14.4 H (BEAKER) (test code = 412) PLATELET COUNT (BEAKER) (test 193 K/CU MM 150-450 code = 756) MEAN PLATELET VOLUME (BEAKER) 11.5 fL 9.4-12.4 (test code = 754) NUCLEATED RED BLOOD CELLS 0 /100 WBC 0-0 (BEAKER) (test code = 413) NEUTROPHILS RELATIVE PERCENT 65 % (BEAKER) (test code = 429) LYMPHOCYTES RELATIVE PERCENT 26 % (BEAKER) (test code = 430) MONOCYTES RELATIVE PERCENT 8 % (BEAKER) (test code = 431) EOSINOPHILS RELATIVE PERCENT 1 % (BEAKER) (test code = 432) BASOPHILS RELATIVE PERCENT 1 % (BEAKER) (test code = 437) NEUTROPHILS ABSOLUTE COUNT 5.35 K/ L 1.78-5.38 (BEAKER) (test code = 670) LYMPHOCYTES ABSOLUTE COUNT 2.12 K/ L 1.32-3.57 (BEAKER) (test code = 414) MONOCYTES ABSOLUTE COUNT (BEAKER) 0.65 K/ L 0.30-0.82 (test code = 415) EOSINOPHILS ABSOLUTE COUNT 0.04 K/ L 0.04-0.54 (BEAKER) (test code = 416) BASOPHILS ABSOLUTE COUNT (BEAKER) 0.04 K/ L 0.01-0.08 (test code = 417) IMMATURE GRANULOCYTES-RELATIVE 1 % 0-1 PERCENT (BEAKER) (test code = 2801) CT, CTA, CORONARY, WITH TRANG [id number] 13:53:00 [facility] 1955 Sex: MFINAL REPORT EXAM: CALCIUM SCORE AND CORONARY CTA INDICATION: Chest pain, acute, nonspecific COMPARISON: None. TECHNIQUE: Multi-detector CT technology was employed ( Discovery CT 750 HD 64 MDCT CensorNet). Minimal slice thickness was performed following the intravenous administration of contrast material. Medications per epic notes. IV CONTRAST: 100 mL of Isovue-370 ORAL CONTRAST: None COMPLICATIONS: None RADIATION DOSE: Total DLP: 544.7 mGy*cm Estimated effective dose: (DLP x 0.015 x size factor) mSv CTDIvol hasbeen reviewed. It is below the limits set by the Radiation Protocol Committee (RPC). For optimization of anatomic evaluation, multiplanar reconstruction, maximum intensity projections, and advanced 3-D off-line postprocessing were performed on a dedicated stand-alone workstation under the direct supervision of the interpreting physician. QUALITY: Good FINDINGS: CALCIUM SCORE: The observed AgatstonCalcium Score of 995 is at percentile 90% for subjects of the same age and gender who are free of clinical cardiovascular disease and treated diabetes. The Agatston score for each vessel is as follows:LM: 290LAD: 329LCx: 42.5RCA: 334 DISTRIBUTION OF THE CALCIFIED PLAQUES: Diffuse calcified plaque throughout all coronary arteries. CORONARY ANATOMY: There is normal origin of the coronary arteries. Left Main Coronary Artery: The left main is normal sized vessel that bifurcates into the LAD and circumflex. Diffuse calcified and noncalcified plaques throughout the left main coronary artery resulting in 30% stenosis at the ostium due to a calcified plaque, 40% stenosis in the remaining proximal and mid segments due to a noncalcified plaque, and at least 50% stenosis in the most distal segment due to a tandem heavy calcified plaque, which extends into the proximal LAD and LCx. Left Anterior Descending Coronary Artery: The LAD is a normal size vessel that wraps around the apex. It gives rise to 1 large acute diagonal branches. Extensive calcified plaques throughout the LAD, worse in the proximal and mid segments resulting in severe stenosis (70-99%). The most distal segment is patent and without significant atherosclerotic disease. The first diagonal branch is a good size vessel which is widely patent without atherosclerotic disease. Left Circumflex Coronary Artery: The LCX is a normal size vessel, which is non-dominant. It gives rise to one obtuse marginal branches. Heavy calcified plaque in the ostial LCx extending from distal left main results in severe stenosis (70-99%). Scattered calcified and noncalcified plaques in the remaining LCx results in mild to moderate stenosis. The perfuse marginal branch measures approximately 2 mm in diameter and is patent without significant atherosclerotic disease. Right Coronary Artery: The RCA is a normal size vessel, which is dominant. It gives riseto a conus branch, AV gayatri branch, and two acute marginal branches. In its distal segment it bifurcates into the PDA and PV branch. Multiple scattered calcified and noncalcified plaque throughout theRCA resulting in at least moderate stenosis at the ostium (50-69%) and severe stenosis at the mid segment at the AV groove (70-99%). The PDA is patent without significant atherosclerotic disease. CARDIAC MORPHOLOGY AND FUNCTION: The right and left atria and ventricles are morphologically normal. LIMITED CHEST:Limited views of the visualized chest show no abnormality within chest wall and mediastinum. No mediastinal lymphadenopathy. Mild subsegmental atelectasis in the right lower lobe. The visualized portions of the ascending and descending thoracic aorta are of normal size. Atherosclerotic calcifications of the aortic root. Small hiatal hernia. LIMITED ABDOMEN:Limited images of the upperabdomen reveal no abnormalities of the visualized organs. BONES:Mild multilevel degenerative changesof the thoracic spine. IMPRESSION: 1. Total Agatston Calcium Score: 995 that corresponds to percentile 90%, representing extensive plaque burden. 2. Normal coronary anatomy. 3. Multivessel coronary artery disease including 40% stenosis of the proximal and at least 50% stenosis of distal left maincoronary artery, severe stenosis of the proximal LAD and LCx, moderate stenosis of the ostial RCA and severe stenoses of the mid RCA. Preliminary report was communicated to Dr. Monroy via email (which was answered immediately) on 03/22/2021 at 4:45 PM. Signed: Kayla Jesus MDRangelaort VerifiedDate/Time: 03/23/2021 13:53:11 CTA heart coronary with calcium evaluation without [id number] 13:53:00Interface, External Ris In - 03/23/2021 1:55 PM CDTFINAL REPORT EXAM: CALCIUM SCORE AND CORONARY CTA INDICATION: Chest pain, acute, nonspecific COMPARISON: None. TECHNIQUE: Multi-detector CT technology was employed ( Discovery CT 750 HD 64 MDCT CensorNet). Minimal slice thickness was performed following the intravenous administration of contrast material. Medications per epic notes. IV CONTRAST: 100 mL of Isovue-370 ORAL CONTRAST: None COMPLICATIONS: None RADIATION DOSE: Total DLP: 544.7 mGy*cm Estimated effective dose: (DLP x0.015 x size factor) mSv CTDIvol has been reviewed. It is below the limits set by the Radiation Protocol Committee (RPC). For optimization of anatomic evaluation, multiplanar reconstruction, maximum intensity projections, and advanced 3-D off-line postprocessing were performed on a dedicated stand-alone workstation under the direct supervision of the interpreting physician. QUALITY: Good FINDINGS: CALCIUM SCORE: The observed Agatston Calcium Score of 995 is at percentile 90% for subjects of the same age and gender who are free of clinical cardiovascular disease and treated diabetes. The Agatston score for each vessel is as follows:LM: 290LAD: 329LCx: 42.5RCA: 334 DISTRIBUTION OF THE CALCIFIED PLAQUES: Diffuse calcified plaque throughout all coronary arteries. CORONARY ANATOMY: There is normal origin of the coronary arteries. Left Main Coronary Artery: The left main is normal sized vessel that bifurcates into the LAD and circumflex. Diffuse calcified and noncalcified plaques throughoutthe left main coronary artery resulting in 30% stenosis at the ostium due to a calcified plaque, 40%stenosis in the remaining proximal and mid segments due to a noncalcified plaque, and at least 50% stenosis in the most distal segment due to a tandem heavy calcified plaque, which extends into the proximal LAD and LCx. Left Anterior Descending Coronary Artery: The LAD is a normal size vessel that wraps around the apex. It gives rise to 1 large acute diagonal branches. Extensive calcified plaques throughout the LAD, worse in the proximal and mid segments resulting in severe stenosis (70-99%). The most distal segment is patent and without significant atherosclerotic disease. The first diagonal branch is a good size vessel which is widely patent without atherosclerotic disease. Left Circumflex Coronary Artery: The LCX is a normal size vessel, which is non-dominant. It gives rise to one obtuse marginal branches. Heavy calcified plaque in the ostial LCx extending from distal left main results in severe stenosis (70-99%). Scattered calcified and noncalcified plaques in the remaining LCx results in mild to moderate stenosis. The perfuse marginal branch measures approximately 2 mm in diameter and ispatent without significant atherosclerotic disease. Right Coronary Artery: The RCA is a normal size vessel, which is dominant. It gives rise to a conus branch, AV gayatri branch, and two acute marginal branches. In its distal segment it bifurcates into the PDA and PV branch. Multiple scattered calcified and noncalcified plaque throughout the RCA resulting in at least moderate stenosis at the ostium (50- 69%) and severe stenosis at the mid segment at the AV groove (70-99%). The PDA is patent without significant atherosclerotic disease. CARDIAC MORPHOLOGY AND FUNCTION: The right and left atria and ventricles are morphologically normal. LIMITED CHEST:Limited views of the visualized chest show no abnormality within chest wall and mediastinum. No mediastinal lymphadenopathy. Mild subsegmental atelectasis in the right lower lobe. The visualized portions of the ascending and descending thoracic aorta are of normal size. Atherosclerotic calcifications of the aortic root. Small hiatal hernia. LIMITED ABDOMEN:Limited images of the upper abdomen reveal no abnormalities of the visualized organs. DANICA KATTY:Mild multilevel degenerative changes of the thoracic spine. IMPRESSION: 1. Total Agatston Calcium Score: 995 that corresponds to percentile 90%, representing extensive plaque burden. 2. Normalcoronary anatomy. 3. Multivessel coronary artery disease including 40% stenosis of the proximal and a t least 50% stenosis of distal left main coronary artery, severe stenosis of the proximal LAD and LCx, moderate stenosis of the ostial RCA and severe stenoses of the mid RCA. Preliminary report was communicated to Dr. Monroy via email (which was answered immediately) on 03/22/2021 at 4:45 PM. Signed: Kayla Jesus Verified Date/Time: 03/23/2021 13:53:11 [facility]-[id number] 10:20:00 Test Item Value Reference Range Interpretation Comments POC-Creatinine (test 0.9 mg/dL 0.6-1.3 : TESTE D AT [facility] 7200 code = 1859) [facility] 7703 0: Tactical/Mobile Watch Officer/Techni jolanta ID = [id number] for IRVIN MAYERS POC-EGFR (test code 85 mL/min/1.73M2 = 1860) [facility]-[id number] 10:20:00 Test Item Value Reference Range Interpretation Comments POC-CREATININE 0.9 mg/dL 0.6-1.3 : TESTED AT [facility] ([place]) (test [address] [facility] code = 1859) [facility] 7 0630: Tactical/Mobile Watch Officer/Techni jolanta ID = [id number] for IRVIN EPPERSON POC-EGFR 85 mL/min/1.73M2 (BEAKER) (test code = 1860) CARDIAC CATH REPORT - [id number] 10:10:20Ordered by an unspecified provider. [facility])2021-01-05 02:00:00 Test Item Value Reference Range Interpretation Comments SARS-COV2/RT-PCR (test Negative Not Detected, Negative, code = 9466553) See external report for linked test SARS-COV-2 PERFORMING LAB [facility] (test code = 1504285) Negative result for this test determines that [...] the Arias SARS-CoV-2 assay.Fact Sheet for Healthcare Providers:https://www.Massdrop.arias/gisel/ AP_CUME-CdA-0_ETU_Aogi_Aapep_32-424190.pdfFact Sheet for Healthcare Patients:https://www.Massdrop.[employer] afia/gisel/LI_LTGX-VsG-4_Xtxgemt_Zfng_Ltbws_FE_11-503472T8.pdfPerforming Laboratory:[facility] [place] [address] BASIC METABOLIC [id number] 13:40:00 Test Item Value Reference Range Interpretation [...] S NOT APPLICABLE FOR DIALYSIS PATIEN TS. Tactical/Mobile Watch Officer ID - JAK MPROTHROMBIN TIME/[id number] 13:21:00 Test Item Value Reference Range Interpretation Comments PROTIME (BEAKER) 12.7 seconds 11.9-14.2 (test code = 759) INR (BEAKER) (test 0.99 See_Comment [Automat ed message] code = 370) The system Edamam generated this result transmitted ref erence range: <=5.90. The reference range was not used to int erpret this result as normal/abnormal . Effective 04/03/2019: PT Reference Range ChangeNew: 11.9-14.2 Previous: 11.7- 14.7RECOMMENDED COUMADIN/WARFARIN INR THERAPY RANGESSTANDARD DOSE: 2.0-3.0 Includes: PROPHYLAXIS for venous thrombosis, systemic embolization; TREATMENT for venous thrombosis and/or pulmonary embolus.HIGH RISK: Target INR is2.5-3.5 for patients wiht mechanical heart valves.CBC W/PLT COUNT & AUTO [id number] 13:14:00 Test Item Value Reference Range Interpretation [...] code = 2801) MR, BRAIN, WITHOUT IV [id number] 10:00:00FINAL REPORT History: Numbness and tinglingComparison studies: [...] Hussein Verified Date/Time: 05/03/2019 10:00:48 Reading Location: [facility] Reading Room [address] [place] [address] CBC W/PLT COUNT & AUTO [id number] 06:59:00 Test Item Value Reference Range Interpretation [...] (BEAKER) (test code = 2801) BASIC METABOLIC [id number] 06:03:00 Test Item Value Reference Range Interpretation [...] NOT APPLICABLE FOR DIALYSIS PATIEN TS. HEMOGLOBIN [id number] 08:52:00 Test Item Value Reference Range Interpretation Comments HEMOGLOBIN A1C (BEAKER) (test code = 5.8 % 4.3-6.1 368) LIPID [id number] 06:11:00 Test Item Value Reference Range Interpretation [...] High 160-189 Very High >=190 FastingBASIC METABOLIC [id number] 06:11:00 Test Item Value Reference Range Interpretation [...] PATIEN TS. FastingCBC W/PLT COUNT & AUTO [id number] 05:06:00 Test Item Value Reference Range Interpretation [...] (test code = 2801) TSH/FREE T4 IF [id number] 19:14:00 Test Item Value Reference Range Interpretation Comments THYROID STIMULATING HORMONE 0.53 uIU/mL 0.35-4.94 (BEAKER) (test code = 772) VITAMIN B12 AND [id number] 19:14:00 Test Item Value Reference Range Interpretation Comments VITAMIN B12 (BEAKER) (test code = 660 pg/mL 213-816 774) FOLATE (BEAKER) (test code = 362) 6.9 ng/mL >=7.0 L BASIC METABOLIC [id number] 18:39:00 Test Item Value Reference Range Interpretation [...] FOR DIALYSIS PATIEN TS. MR, BRAIN, WITHOUT [id number] 16:16:00Reason for exam:->StrokeWhat is the patient's sedation [...] None available. TECHNIQUE: 2 D and 3-D hyie-sa-fzicpq MRA images of the intra- and extracranial [...] is antegrade in both vertebral arteries. MRA [place]: There is a inferiorly to [...] be considered if clinically appropriate. Signed: [facility] Verified Date/Time: 03/03/2019 16:16:12 Reading Location: [facility] C013V Neuro Reading Room MR, MRA, BRAIN, WITHOUT [id number] 16:16:00Reason for exam:- >Ischemic Stroke EvaluationFINAL REPORT [...] None available. TECHNIQUE: 2 D and 3-D bnmd-pj-naqyap MRA images of the intra- and extracranial [...] is antegrade in both vertebral arteries. MRA [place]: There is a inferiorly to [...] MDReport Verified Date/Time: 03/03/2019 16:16:12 Reading Location: [address] Neuro Reading Room MR, MRA, NECK, WITHOUT IV [id number] 16:16:00Reason for exam:->Ischemic Stroke EvaluationFINAL REPORT MRI [...] None available. TECHNIQUE: 2 D and 3-D hcwx-my-vaeynd MRA images of the intra- and extracranial [...] is antegrade in both vertebral arteries. MRA [place]: There is a inferiorly to [...] MDReport Verified Date/Time: 03/03/2019 16:16:12 Reading Location: [facility] C013V Neuro Reading Room LIPID [id number] 04:08:00 Test Item Value Reference Range Interpretation [...] High 160-189 Very High >=190 FastingBASIC METABOLIC [id number] 04:08:00 Test Item Value Reference Range Interpretation [...] PATIEN TS. FastingCBC W/PLT COUNT & AUTO [id number] 03:54:00 Test Item Value Reference Range Interpretation [...] = 2801) CBC W/PLT COUNT & AUTO [id number] 20:55:00 Test Item Value Reference Range Interpretation [...] (BEAKER) (test code = 2801) BASIC METABOLIC [id number] 20:44:00 Test Item Value Reference Range Interpretation [...]
[2021-05-07 14:54] LABS: Absolute Lymphocytes (CBC) 2.1 K/uL (0.7-4.9); Basophils % 0.6 % (0-1.3); Hematocrit 40.5 % (39.6-49.0); Lymphocytes % 25.3 % (15.3-44.8); MPV 9.8 fL (7.6-11.3); RBC Red Blood Cell Count 4.45 M/uL (4.33-5.43)
[2021-05-07 14:55] LABS: Protime INR 1.03
[2021-05-07 15:12] LABS: ALT/SGPT 23 U/L (12-78); AST/SGOT 9 U/L (15-37); Alkaline Phosphatase 86 U/L (45-117); BUN Blood Urea Nitrogen 13 mg/dL (7-18); Bicarbonate 26 mmol/L (21-32); Bilirubin Direct 0.2 mg/dL (0-0.2); Bilirubin Total 0.7 mg/dL (0.2-1.0); Glucose Level 106 mg/dL (74-106); Magnesium 2.5 mg/dL (1.8-2.4); NT PRO-BNP 12 pg/mL (<125); Protein, Total 7.4 g/dL (6.4-8.2); Sodium Level 137 mmol/L (136-145); Troponin (Emerg Dept Use Only) < 0.02 ng/mL (0.0-0.045)
--- NOTE | 2021-05-07 15:19 | RAD REPORT ---
EXAM DESCRIPTION: Daisy Single View05/07/2021 3:09 pm CLINICAL HISTORY: Chest pain COMPARISON: March 2021 FINDINGS: The lungs appear clear of acute infiltrate. The heart is normal size IMPRESSION: No acute abnormalities displayed
--- NOTE | 2021-05-07 15:36 | EDPHYS ---
Physician Documentation [facility] Name: John Moreno Age: 65 yrs Sex: Male : 1955 Arrival Date: 05/07/2021 Time: 13:56 Bed 13 Private MD: ED Physician Cooper Larios HPI: 05/07 15:28 This 65 yrs old Male presents to ER via Ambulatory with complaints of Chest jr8 Pain > 30 y/o. 15:28 The patient or guardian reports chest pain that is located primarily in the substernal jr8 area. Onset: gradually, 2 day(s) ago. The pain radiates to the left shoulder. Associated signs and symptoms: The patient has no apparent associated signs or symptoms. The chest pain is described as a pressure. Duration: The patient or guardian reports multiple episodes, that are intermittent, that wax and wane, the episodes last approximately 10 second(s). Modifying factors: The symptoms are alleviated by nothing. the symptoms are aggravated by nothing. Severity of pain: At its worst the pain was mild in the emergency department the pain has resolved. The patient has not experienced similar symptoms in the past. The patient has been recently seen by a physician:. Patient was admitted to [facility] last week and had heart cath done. Has blockage that needs to be fixed with CABG. On plavix so delayed surgery until the 8th of this month. Stated that 2 days ago has had very brief episodes of chest pain that come and go. Was told to come to ED for evaluation to ensure stability . Historical: - Allergies: 14:13 No Known Allergies; ll1 - PMHx: 14:13 Hyperlipidemia; Hypertension; Coronary atherosclerosis; ll1 - PSHx: 14:13 heart cath; ll1 - Immunization history:: Flu vaccine is up to date. - Social history:: Smoking status: Patient denies any tobacco usage or history of. ROS: 15:28 Eyes: Negative for injury, pain, redness, and discharge, ENT: Negative for injury, jr8 pain, and discharge, Neck: Negative for injury, pain, and swelling, Respiratory: Negative for shortness of breath, cough, wheezing, and pleuritic chest pain, Abdomen/GI: Negative for abdominal pain, nausea, vomiting, diarrhea, and constipation, Back: Negative for injury and pain, MS/Extremity: Negative for injury and deformity, Skin: Negative for injury, rash, and discoloration, Neuro: Negative for headache, weakness, numbness, tingling, and seizure. 15:28 Cardiovascular: Positive for chest pain. Exam: 15:28 Constitutional: This is a well developed, well nourished patient who is awake, alert, jr8 and in no acute distress. Neck: Trachea midline, no thyromegaly or masses palpated, and no cervical lymphadenopathy. Supple, full range of motion without nuchal rigidity, or vertebral point tenderness. No Meningismus. Cardiovascular: Regular rate and rhythm with a normal S1 and S2. No gallops, murmurs, or rubs. Normal PMI, no JVD. No pulse deficits. Respiratory: Lungs have equal breath sounds bilaterally, clear to auscultation and percussion. No rales, rhonchi or wheezes noted. No increased work of breathing, no retractions or nasal flaring. Abdomen/GI: Soft, non-tender, with normal bowel sounds. No distension or tympany. No guarding or rebound. No evidence of tenderness throughout. Back: No spinal tenderness. No costovertebral tenderness. Full range of motion. Skin: Warm, dry with normal turgor. Normal color with no rashes, no lesions, and no evidence of cellulitis. MS/ Extremity: Pulses equal, no cyanosis. Neurovascular intact. Full, normal range of motion. Neuro: Awake and alert, GCS 15, oriented to person, place, time, and situation. Cranial nerves II-XII grossly intact. Motor strength 5/5 in all extremities. Sensory grossly intact. 15:34 ECG was reviewed by the Attending Physician. [facility] Vital Signs: 14:11 BP 163 / 80; Pulse 92; Resp 17; Temp 98.0; Pulse Ox 95% on R/A; Weight 81.65 kg; Height ll1 5 ft. 2 in. (157.48 cm); Pain 7/10; 15:22 BP 134 / 81; Pulse 76; Resp 18 S; Pulse Ox 96% on R/A; ca1 16:26 BP 122 / 79; Pulse 78; Resp 15 S; Pulse Ox 97% on R/A; ca1 14:11 Body Mass Index 32.92 (81.65 kg, 157.48 cm) [facility] MDM: 14:16 Patient medically screened. jr8 15:28 The patient was not given aspirin in the Emergency Department. Patient reports taking jr8 aspirin within the past 24 hours. Data reviewed: vital signs, nurses notes, lab test result(s), EKG, radiologic studies, plain films, and as a result, I will discharge patient. Data interpreted: Pulse oximetry: on room air is 96 %. Interpretation: normal. 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 15:35 ED course: Patient currently without chest pain. No acute lab, ECG, or xray findings. jr8 VS stable. 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 on Monday. If he were to have change in symptoms or worsen to immediately come back here. Patient good with plan . 05/07 14:16 Order name: Basic Metabolic Panel; Complete Time: 15:19 05/07 14:16 Order name: CBC with Diff; Complete Time: 15:05/07 14:16 Order name: LFT's; Complete Time: 15:05/07 14:16 Order name: Magnesium; Complete Time: 15:05/07 14:16 Order name: NT PRO-BNP; Complete Time: 15:19 05/07 14:16 Order name: PT-INR; Complete Time: 15:19 05/07 14:16 Order name: Troponin (emerg Dept Use Only); Complete Time: 15:19 05/07 14:16 Order name: XRAY Chest (1 view); Complete Time: 15:36 05/07 14:16 Order name: EKG; Complete Time: 14:18 05/07 14:16 Order name: Cardiac monitoring; Complete Time: 14:05/07 14:16 Order name: EKG - Nurse/Tech; Complete Time: 14:46 05/07 14:16 Order name: IV Saline Lock; Complete Time: 14:05/07 14:16 Order name: Labs collected and sent; Complete Time: 14:46 jr8 05/07 14:16 Order name: O2 Per Protocol; Complete Time: 14:46 jr8 05/07 14:16 Order name: O2 Sat Monitoring; Complete Time: 14:46 8 EC:34 Rate is 81 beats/min. Rhythm is regular, Normal Sinus Rhythm. QRS [place] is Normal. CO jr8 interval is normal at 142 msec. QRS interval is normal at 92 msec. QT interval is normal at 358 msec. No Q waves. T waves are Normal. No ST changes noted. Clinical impression: Normal ECG. Interpreted by me. Reviewed by me. Administered Medications: No medications were administered Disposition Summary: 05/07/21 15:35 Discharge Ordered Location: Home jr8 Problem: new jr8 Symptoms: are resolved jr8 Condition: Stable jr8 Diagnosis - Chest pain, unspecified jr8 Followup: jr8 - With: Private Physician - When: 1 - 2 days - Reason: Recheck today's complaints, Continuance of care, Re-evaluation by your physician Discharge Instructions: - Discharge Summary Sheet jr8 - Nonspecific Chest Pain, Adult jr8 Forms: - Medication Reconciliation Form jr8 - Thank You Letter jr8 - Antibiotic Education jr8 - Prescription Opioid Use jr8 Addendum: 05/10/2021 13:47 Co-signature as Attending Physician, Cooper Larios MD I agree with the assessment and k dr plan of care. Signatures: Dispatcher [employer] [facility] Cooper Larios MD MD [facility] Derrick Srinivasan PA PA jr8 Shawn Santos RN RN ll1
--- NOTE | 2021-05-07 15:36 | ER ---
Nurse's Notes [facility] Name: John Moreno Age: 65 yrs Sex: Male : 1955 Arrival Date: 05/07/2021 Time: 13:56 Bed 13 Private MD: Diagnosis: Chest pain, unspecified Presentation: 05/07 14:11 Chief complaint: Patient states: Intermittent chest pain and L shoulder pain since ll1 getting released from the hospital in [place] Monday. Had a heart cath, stopped blood thinners. Scheduled for bypass surgery 05/13/21. Coronavirus screen: Client denies travel out of the [place] in the last 14 days. At this time, the client does not indicate any symptoms associated with coronavirus-19. Ebola Screen: Patient denies travel to an Ebola-affected area in the 21 days before illness onset. Initial Sepsis Screen: Does the patient meet any 2 criteria? HR > 90 bpm. No. Patient's initial sepsis screen is negative. Does the patient have a suspected source of infection? No. Patient's initial sepsis screen is negative. Risk Assessment: Do you want to hurt yourself or someone else? Patient reports no desire to harm self or others. Onset of symptoms was May 05, 2021. 14:11 Method Of Arrival: Ambulatory [facility] 14:11 Acuity: JEFFRY 2 ll1 Historical: - Allergies: 14:13 No Known Allergies; ll1 - PMHx: 14:13 Hyperlipidemia; Hypertension; Coronary atherosclerosis; ll1 - PSHx: 14:13 heart cath; ll1 - Immunization history:: Flu vaccine is up to date. - Social history:: Smoking status: Patient denies any tobacco usage or history of. Screenin:15 Abuse screen: Denies threats or abuse. Denies injuries from another. Nutritional ca1 screening: No deficits noted. Tuberculosis screening: No symptoms or risk factors identified. Fall Risk IV access (20 points). Assessment: 14:15 General: Appears in no apparent distress. comfortable, Behavior is calm, cooperative, ca1 appropriate for age. Pain: Complains of pain in chest Pain does not radiate. Pain currently is 0 out of 10 on a pain scale. Pain began been going on a while, has CABG schedule on the 13 of May. Is intermittent. Neuro: Level of Consciousness is awake, alert, obeys commands, Oriented to person, place, time, situation. Cardiovascular: Heart tones S1 S2 present Capillary refill < 3 seconds Patient's skin is warm and dry. Rhythm is sinus rhythm. Respiratory: Airway is patent Respiratory effort is even, unlabored, Respiratory pattern is regular, symmetrical, Breath sounds are clear bilaterally. GI: Abdomen is flat, non-distended, Bowel sounds present X 4 quads. Abd is soft and non tender X 4 quads. : No signs and/or symptoms were reported regarding the genitourinary system. EENT: No signs and/or symptoms were reported regarding the EENT system. Derm: Skin is intact, is healthy with good turgor, Skin is pink, warm \T\ dry. Musculoskeletal: Circulation, motion, and sensation intact. Capillary refill < 3 seconds. 15:22 Reassessment: Patient appears in no apparent distress at this time. Patient and/or ca1 family updated on plan of care and expected duration. Pain level reassessed. Patient is alert, oriented x 3, equal unlabored respirations, skin warm/dry/pink. 16:26 Reassessment: Patient appears in no apparent distress at this time. Patient is alert, ca1 oriented x 3, equal unlabored respirations, skin warm/dry/pink. Patient states feeling better. Vital Signs: 14:11 BP 163 / 80; Pulse 92; Resp 17; Temp 98.0; Pulse Ox 95% on R/A; Weight 81.65 kg; Height ll1 5 ft. 2 in. (157.48 cm); Pain 7/10; 15:22 BP 134 / 81; Pulse 76; Resp 18 S; Pulse Ox 96% on R/A; ca1 16:26 BP 122 / 79; Pulse 78; Resp 15 S; Pulse Ox 97% on R/A; ca1 14:11 Body Mass Index 32.92 (81.65 kg, 157.48 cm) ll1 ED Course: 13:56 Patient arrived in ED. wm 14:05 Arm band placed on Patient placed in an exam room, on a stretcher. ll1 14:13 Triage completed. ll1 14:15 Patient has correct armband on for positive identification. Placed in gown. Bed in low ca1 position. Call light in reach. Side rails up X2. school lunch monitor on. Pulse ox on. NIBP on. Warm blanket given. 14:16 Derrick Srinivasan PA is PHCP. [facility] 14:16 Cooper Larios MD is Attending Physician. jr8 14:35 EKG done, by ED staff, reviewed by Derrick ESPAÑA. 3 14:44 Lily Lovett, RN is Primary Nurse. ca1 14:48 Initial lab(s) drawn, by me, sent to lab. Inserted saline lock: 20 gauge in right iw antecubital area, using aseptic technique. Blood collected. Patient maintains SpO2 saturation greater than 95% on room air. 15:09 XRAY Chest (1 view) In Process Unspecified. EDMS 16:27 No provider procedures requiring assistance completed. IV discontinued, intact, ca1 bleeding controlled, No redness/swelling at site. Pressure dressing applied. Administered Medications: No medications were administered Outcome: 15:35 Discharge ordered by . jr8 16:27 Discharged to home ambulatory, with family. ca1 16:27 Condition: stable 16:27 Discharge instructions given to patient, Instructed on discharge instructions, follow up and referral plans. Demonstrated understanding of instructions, follow-up care. 16:28 Patient left the ED. ca1 Signatures: Dispatcher [employer] EDMS Deepa Fontana RN RN Derrick Srinivasan PA PA 8 Maya Roberts 3 Lily Lovett RN RN ca1 Shawn Santos RN RN ll1 Sadie Jernigan
[2021-05-07 16:51] VITALS: BP 122/79; O2SAT 97
[2021-05-07 16:55] VITALS: TEMP 98
--- NOTE | 2021-05-08 10:27 | EKG ---
Test Date: 2021-05-07 Test Time: 14:21:02 Financial Associate: ANTHONY MEASUREMENT RESULTS: Intervals: Rate: 81 MN: 142 QRSD: 92 QT: 358 QTc: 415 Jermyn: P: 47 MN: 142 QRS: 55 T: 38 INTERPRETIVE STATEMENTS: Normal sinus rhythm Normal ECG Compared to ECG 03/19/2021 15:38:30 Myocardial infarct finding no longer present Electronically Signed On 05-08-21 10:25:39 CDT by Daryl Aviles
== END 2021-05-07 16:28 | disposition home or self-care (01) ==
LOC: ER 13:54
DX: R07.9 Chest pain, unspecified (principal); I10 Essential (primary) hypertension; Z79.01 Long term (current) use of anticoagulants
CPT/HCPCS: 36415; 71045; 80048; 80076; 83735; 83880; 84484; 85025; 85610; 93005; 99285

== ENCOUNTER 2021-09-15 15:00 | Emergency (ER) | payer OTHER ==
--- NOTE | 2021-09-15 17:12 | RAD REPORT ---
EXAM DESCRIPTION: CT - Stone Protocol - 09/15/2021 4:54 pm CLINICAL HISTORY: Flank pain. FLANK PAIN COMPARISON: Abdomen Angio dated 12/16/2020 TECHNIQUE: Axial images were obtained without oral or IV contrast. Lack of contrast limits solid org an and vascular assessment. The [id number] spans the entirety of the system partially obscuring uppermost abdomen and lung bases. Coronal reformatted images were obtained and reviewed. All CT scans are performed using dose optimization technique as appropriate and may include automated exposure control or mA/KV adjustment according to patient size. FINDINGS: The lower lung lopez are clear. Imaged portions of the liver and spleen show no suspicious findings on non-contrast imaging. The panc reas and adrenal glands are normal. No pathologic lymphadenopathy in the abdomen or pelvis. No urinary tract stones or obstructive uropathy. No bowel obstruction, free air, free fluid or abscess. Normal appendix noted. Significant aortoiliac atherosclerosis. Vacuum disc degeneration is present L5-S1. Postsurgical clips are seen right inguinal region. IMPRESSION: No urinary tract stones or obstructive uropathy.
[2021-09-15 17:34] LABS: Urine Blood Negative (Negative); Urine Glucose Negative (Negative); Urine Protein Negative (Negative); Urine Specific Gravity 1.015 (1.005-1.030); Urine pH 6.5 (5.0-7.0)
[2021-09-15 17:42] LABS: Absolute Lymphocytes (CBC) 2.3 K/uL (0.7-4.9); Basophils % 0.6 % (0-1.3); Hematocrit 44.5 % (39.6-49.0); Lymphocytes % 20.8 % (15.3-44.8); MPV 10.2 fL (7.6-11.3); RBC Red Blood Cell Count 4.79 M/uL (4.33-5.43)
[2021-09-15 17:55] LABS: Potassium 4.1 mmol/L (3.5-5.1)
[2021-09-15 18:02] LABS: Urine Bacteria <20 /HPF (NONE SEEN); Urine RBC <5 /HPF (NONE SEEN)
--- NOTE | 2021-09-15 18:27 | ER ---
Nurse's Notes [facility] Name: John Moreno Age: 66 yrs Sex: Male : 1955 Arrival Date: 09/15/2021 Time: 15:04 Bed 20 Private MD: Edilson Pickett Diagnosis: Lower abdominal pain, unspecified-right inguinal area Presentation: 09/15 16:00 Chief complaint: Patient states: Burning upon urination x5 days. States Right groin vg1 pain/pressure. Denies NVD, back pian or blood in urine. Coronavirus screen: Vaccine status: Patient reports being unvaccinated. Client denies travel out of the [place] in the last 14 days. Ebola Screen: Patient negative for fever greater than or equal to 101.5 degrees Fahrenheit, and additional compatible Ebola Virus Disease symptoms. Initial Sepsis Screen: Does the patient meet any 2 criteria? No. Patient's initial sepsis screen is negative. Does the patient have a suspected source of infection? No. Patient's initial sepsis screen is negative. Risk Assessment: Do you want to hurt yourself or someone else? Patient reports no desire to harm self or others. Onset of symptoms was September 10, 2021. 16:00 Method Of Arrival: Ambulatory vg1 16:00 Acuity: JEFFRY 3 vg1 Triage Assessment: 16:02 General: Appears in no apparent distress. uncomfortable, Behavior is calm, cooperative. vg1 Pain: Complains of pain in pelvis Pain currently is 3 out of 10 on a pain scale. GI: No signs and/or symptoms were reported involving the gastrointestinal system. : Reports burning with urination. Historical: - Allergies: 16:02 No Known Allergies; vg1 - Home Meds: 16:02 amlodipine 10 mg tab [Active]; Aspirin Oral [Active]; atorvastatin 10 mg Oral tab vg1 [Active]; clopidogrel Oral [Active]; Cyclobenzaprine Oral [Active]; duloxetine 30 mg Oral cpDR [Active]; Levofloxacin Oral [Active]; losartan 50 mg Oral tab [Active]; omeprazole 40 mg Oral cpDR [Active]; pantoprazole Oral [Active]; - PMHx: 16:02 coronary atherosclerosis; Hypertension; Hyperlipidemia; vg1 - PSHx: 16:02 heart cath; vg1 - Immunization history:: Client reports having NOT received the Covid vaccine. - Social history:: Smoking status: Patient denies any tobacco usage or history of. Screenin:50 Abuse screen: Denies threats or abuse. Nutritional screening: No deficits noted. sl2 Tuberculosis screening: No symptoms or risk factors identified. Fall Risk None identified. Assessment: 16:50 General: Appears in no apparent distress. well groomed, well developed, Behavior is sl2 calm, cooperative, appropriate for age, Reports Dysuria. 16:50 Neuro: No deficits noted. Level of Consciousness is awake, alert, obeys commands, sl2 Oriented to person, place, time, situation, Appropriate for age Radiation Oncology Nurse are equal bilaterally Moves all extremities. Full function Gait is unsteady, Speech is normal, Facial symmetry appears normal. Cardiovascular: No deficits noted. Respiratory: No deficits noted. Airway is patent Trachea midline Respiratory effort is even, unlabored, Respiratory pattern is regular, symmetrical, Breath sounds are clear bilaterally. GI: Bowel sounds present X 4 quads. Abd is soft and non tender X 4 quads. : Reports urgency, urinary frequency, Dysuria. EENT: No deficits noted. No signs and/or symptoms were reported regarding the EENT system. Derm: No deficits noted. No signs and/or symptoms reported regarding the dermatologic system. Musculoskeletal: No deficits noted. No signs and/or symptoms reported regarding the musculoskeletal system. Vital Signs: 16:00 BP 142 / 79; Pulse 80; Resp 16; Temp 98.2; Pulse Ox 100% ; Weight 78.93 kg; Height 5 vg1 ft. 5 in. (165.10 cm); Pain 3/10; 17:39 BP 120 / 71; Pulse 70; Resp 17; Temp 98.0(O); Pulse Ox 100% on R/A; mh5 18:35 BP 122 / 74; Pulse 74; Resp 18; Temp 98.2; Pulse Ox 100% ; sl2 16:00 Body Mass Index 28.95 (78.93 kg, 165.10 cm) vg1 ED Course: 15:04 Patient arrived in ED. mr 15:04 Edilson Pickett DO is Private Physician. mr 16:02 Triage completed. vg1 16:02 Arm band placed on. vg1 16:07 [facility] jr8 16:07 Adam Blanco MD is Attending Physician. jr8 16:50 Patient has correct armband on for positive identification. Bed in low position. Call 2 light in reach. Side rails up X2. Adult w/ patient. 16:50 No provider procedures requiring assistance completed. sl2 16:54 CT Stone Protocol In Process Unspecified. EDCT 17:08 Kourtney Jesus, RN is Primary Nurse. 2 17:34 Urine Dipstick-Ancillary Sent. 5 17:34 Urine Microscopic Only Sent. 5 17:34 Basic Metabolic Panel Sent. 5 17:34 CBC with Automated Diff Sent. mh5 17:34 Urine Microscopic Only Sent. mh5 17:34 Basic Metabolic Panel Sent. 5 17:34 CBC with Diff Sent. 5 17:35 Warm blanket given. [employer] professor on. Pulse ox on. NIBP on. 5 17:35 Initial lab(s) drawn, by ok, sent to lab. Urine collected: clean catch specimen, clear. 5 Inserted saline lock: 20 gauge in left antecubital area, using aseptic technique. Blood collected. 18:25 Garcia Gomez MD is Referral Physician. nm2 19:16 IV discontinued, intact, bleeding controlled, No redness/swelling at site. Pressure 2 dressing applied. Administered Medications: No medications were administered Outcome: 18:26 Discharge ordered by . ma2 19:15 Discharged to home ambulatory, with family. sl2 19:15 Condition: stable 19:15 Discharge instructions given to patient, Instructed on discharge instructions, follow up and referral plans. medication usage, Demonstrated understanding of Prescriptions given X 1. 19:17 Patient left the ED. 2 Signatures: Dispatcher [employer] [facility] Luh Peters Derrick Denny, PATRIA ESPAÑA jr8 Cortney Finley [facility] Adam Blanco MD MD ma2 Garcia, Victoria, RN RN vg1 Kourtney Jesus, RN RN sl2
--- NOTE | 2021-09-15 18:27 | EDPHYS ---
Physician Documentation [facility] Name: John Moreno Age: 66 yrs Sex: Male : 1955 Arrival Date: 09/15/2021 Time: 15:04 Bed 20 Private MD: [facility] ED Physician Adam Blanco HPI: 09/15 17:15 This 66 yrs old Male presents to ER via Ambulatory with complaints of jr8 Abdominal Pain. 17:15 This is a 66-year-old male patient that came in with right lower inguinal pain and with jr8 complaints of frequency and burning with urination. Denies fevers, nausea, vomiting, diarrhea. Symptoms started today and has not experienced this in the past.. Historical: - Allergies: 16:02 No Known Allergies; vg1 - Home Meds: 16:02 amlodipine 10 mg tab [Active]; Aspirin Oral [Active]; atorvastatin 10 mg Oral tab vg1 [Active]; clopidogrel Oral [Active]; Cyclobenzaprine Oral [Active]; duloxetine 30 mg Oral cpDR [Active]; Levofloxacin Oral [Active]; losartan 50 mg Oral tab [Active]; omeprazole 40 mg Oral cpDR [Active]; pantoprazole Oral [Active]; - PMHx: 16:02 coronary atherosclerosis; Hypertension; Hyperlipidemia; vg1 - PSHx: 16:02 heart cath; vg1 - Immunization history:: Client reports having NOT received the Covid vaccine. - Social history:: Smoking status: Patient denies any tobacco usage or history of. ROS: 17:15 Eyes: Negative for injury, pain, redness, and discharge, ENT: Negative for injury, jr8 pain, and discharge, Neck: Negative for injury, pain, and swelling, Cardiovascular: Negative for chest pain, palpitations, and edema, Respiratory: Negative for shortness of breath, cough, wheezing, and pleuritic chest pain, Back: Negative for injury and pain, MS/Extremity: Negative for injury and deformity, Skin: Negative for injury, rash, and discoloration, Neuro: Negative for headache, weakness, numbness, tingling, and seizure. 17:15 Abdomen/GI: Positive for abdominal pain, Negative for nausea, vomiting, and diarrhea. 17:15 : Positive for urinary symptoms. Exam: 17:15 Constitutional: This is a well developed, well nourished patient who is awake, alert, jr8 and in no acute distress. Cardiovascular: Regular rate and rhythm with a normal S1 and S2. No gallops, murmurs, or rubs. Normal PMI, no JVD. No pulse deficits. Respiratory: Lungs have equal breath sounds bilaterally, clear to auscultation and percussion. No rales, rhonchi or wheezes noted. No increased work of breathing, no retractions or nasal flaring. Abdomen/GI: Soft, non-tender, with normal bowel sounds. No distension or tympany. No guarding or rebound. No evidence of tenderness throughout. Back: No spinal tenderness. No costovertebral tenderness. Full range of motion. Skin: Warm, dry with normal turgor. Normal color with no rashes, no lesions, and no evidence of cellulitis. MS/ Extremity: Pulses equal, no cyanosis. Neurovascular intact. Full, normal range of motion. Neuro: Awake and alert, GCS 15, oriented to person, place, time, and situation. Cranial nerves II-XII grossly intact. Motor strength 5/5 in all extremities. Sensory grossly intact. Vital Signs: 16:00 BP 142 / 79; Pulse 80; Resp 16; Temp 98.2; Pulse Ox 100% ; Weight 78.93 kg; Height 5 vg1 ft. 5 in. (165.10 cm); Pain 3/10; 17:39 BP 120 / 71; Pulse 70; Resp 17; Temp 98.0(O); Pulse Ox 100% on R/A; mh5 18:35 BP 122 / 74; Pulse 74; Resp 18; Temp 98.2; Pulse Ox 100% ; sl2 16:00 Body Mass Index 28.95 (78.93 kg, 165.10 cm) vg1 MDM: 16:07 Patient medically screened. [facility] 17:15 Data reviewed: vital signs, nurses notes, lab test result(s), radiologic studies, CT [facility] scan. Data interpreted: Pulse oximetry: on room air is 100 %. Interpretation: normal. Counseling: I had a detailed discussion with the patient and/or guardian regarding: the historical points, exam findings, and any diagnostic results supporting the discharge/admit diagnosis, lab results, radiology results. 09/15 16:08 Order name: Basic Metabolic Panel [facility] 09/15 16:08 Order name: CBC with Diff [facility] 09/15 16:08 Order name: Urine Microscopic Only [facility] 09/15 16:08 Order name: Basic Metabolic Panel; Complete Time: 17:57 EDMS 09/15 16:08 Order name: CBC with Automated Diff; Complete Time: 17:53 EDMS 09/15 16:08 Order name: Urine Microscopic Only; Complete Time: 18:26 EDMS 09/15 16:08 Order name: IV Saline Lock; Complete Time: 17:34 [facility] 09/15 16:08 Order name: Labs collected and sent; Complete Time: 17:34 [facility] 09/15 16:08 Order name: CT Stone Protocol; Complete Time: 17:14 [facility] 09/15 16:08 Order name: Urine Dipstick-Ancillary (obtain specimen); Complete Time: 17:34 [facility] 09/15 17:33 Order name: Urine Dipstick-Ancillary; Complete Time: 17:53 EDMS Administered Medications: No medications were administered Disposition: 18:24 Co-signature as Attending Physician, Adam Blanco MD PA/ENVIRONMENTAL COMPLIANCE INSPECTOR's history reviewed, ma2 patient interviewed, and examined. I agree with assessment and care plan and confirm the diagnosis (es) above. I saw the patient reexamined him, work-up has been unremarkable, he has a right inguinal pain, exam unremarkable. He needs to see urology. I offered a referral however he is already scheduled for urology tomorrow.. Disposition Summary: 09/15/21 18:26 Discharge Ordered Location: Home ma2 Condition: Stable ma2 Diagnosis - Lower abdominal pain, unspecified - right inguinal area ma2 Followup: ma2 - With: Garcia Gomez MD - When: Tomorrow - Reason: If symptoms return, Continuance of care Discharge Instructions: - Discharge Summary Sheet ma2 - Flank Pain, Adult ma2 Forms: - Medication Reconciliation Form ma2 - Thank You Letter ma2 - Antibiotic Education ma2 - Prescription Opioid Use ma2 Prescriptions: - Diclofenac Sodium 75 mg Oral Tablet Sustained Release - take 1 tablet by ORAL route 2 times per day; 30 tablet; Refills: 0, Product ma2 Selection Permitted Signatures: Dispatcher [employer] EDMS Derrick Srinivasan PA PA jr8 Adam Blanco MD MD ma2 Javier, Ally, RN RN vg1
[2021-09-15 19:28] VITALS: O2SAT 100
[2021-09-15 19:32] VITALS: BP 122/74; TEMP 98.2
--- OUTSIDE RECORDS SUMMARY | 2021-09-18 19:43 | XMS REPORT | Continuity of Care Document ---
:1955 Author Organization [facility] t Address [address] [place] [address] Care Team Providers Name Role Phone DONN BARNARD Primary Care Physician Unavailable RADHA CALDERON Attending Clinician Unavailable AR Attending Clinician Unavailable GONZALO DE LA CRUZ Attending Clinician Unavailable GRIS Attending Clinician Unavailable JUMA Attending Clinician Unavailable CINDY Attending Clinician Unavailable MARTÍN PARRISH Attending Clinician Unavailable Cindy OGLESBY Attending Clinician Juma OGLESBY Attending Clinician GONZALO DE LA CRUZ Attending Clinician Unavailable SARA Attending Clinician Unavailable aSra ESPAÑA Attending Clinician JUMA Attending Clinician Unavailable Gonzalo De La Cruz MD Attending Clinician Christiano OGLESYB Attending Clinician Duy Steiner MD Attending Clinician Mandeep Tuttle MD Attending Clinician PATEL Attending Clinician Unavailable DEWAYNE SOLIMAN Attending Clinician Unavailable RADHA CALDERON Admitting Clinician Unavailable ALASamir Admitting Clinician Unavailable GONZALO DE LA CRUZ Admitting Clinician Unavailable MARY MILLS Admitting Clinician Unavailable PATEL Admitting Clinician Unavailable DEWAYNE SOLIMAN Admitting Clinician Unavailable Payers Payer Name Policy Type Policy Number Effective Date Expiration Date Gildardo PATHAK [id number] 2019 00:00:00 MEDICARE A B [id number] 2021 00:00:00 [facility] [id number] 2021 00:00:00 MEDICARE PART A [id number] \T\ B - MEDICARE [facility] - [id number] - [id number] HEALTH Problems Condition Condition Condition Status Onset Resolution Last Treating Co mments Source Name Details Category Date Date Treatment Clinician Date S/P CABG S/P CABG Disease Active 2020-11 [facility] r (coronary (coronary 0-26 [facility] artery artery 00:00: of bypass bypass 00 Medicin graft) graft) e Scrotolith Scrotolith Disease Active [facility] 8-25 [facility] 00:00: of 00 Medicin e PAD PAD Disease Active [facility] (periphera (periphera 8 Co llege l artery l artery 00:00: of disease) disease) 00 Medici n (HCCode) (HCCode) e Coronary Coronary Disease Active [facility] artery artery 518 [facility] disease of disease of 00:00: of menominee menominee 00 Medicin artery of artery of e menominee menominee heart 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 (HCCode) (HCCode) Abnormal Abnormal Disease Active [facility] findings findings 5-18 Colleg e on on 00:00: of diagnostic diagnostic 00 Me dicin imaging of imaging of e heart and heart and coronary coronary circulatio circulatio n n Orchitis Orchitis Disease Active [facility] and and 03-03 [facility] epididymit epididymit 00:00: of is is 00 Medicin e Carotid Carotid Disease Active [facility] artery artery 01-31 College disease disease 00:00: of (HCCode) (HCCode) 00 Medici n e S/P S/P Disease Active [facility] angiogram angiogram 3-28 [facility] of of 00:00: of extremity extremity 00 Medi aleksandra e PAD PAD Disease Active [facility] (periphera (periphera 2-01 Co llege l artery l artery 00:00: of disease) disease) 00 Medici n (HCCode) (HCCode) e PVD PVD Disease Active [facility] (periphera (periphera 2-01 Co llege l vascular l vascular 00:00: of disease) disease) 00 Medici n (HCCode) (HCCode) e Benign Benign Disease Active [facility] localized localized 1-27 [facility] prostatic prostatic 00:00: of hyperplasi hyperplasi 00 Me dicin a with a with e lower lower urinary urinary tract tract symptoms symptoms (LUTS) (LUTS) Screening Screening Disease Active [facility] for viral for viral 6-18 [facility] disease disease 00:00: of 00 Medicin e Chest pain Chest pain Disease Active [facility] 6-18 [facility] 00:00: of 00 Medicin e Leg length Leg length Disease Active [facility] discrepanc discrepanc 3-18 Co llege y y 00:00: of 00 Medicin e Right hip Right hip Disease Active [facility] pain pain 3-18 College 00:00: of 00 Medicin e Primary Primary Disease Active [facility] osteoarthr osteoarthr 3-18 Co llege itis of itis of 00:00: of right hip right hip 00 Medi aleksandra e Osteoarthr Osteoarthr Disease Active [facility] itis of itis of 18 College lumbar lumbar 00:00: of spine spine 00 Medicin e Hypertensi Hypertensi Disease Active 2018-11 [facility] on on 18 College 00:00: of 00 Medicin e PFO PFO Disease Active 2018-11 [facility] (patent (patent 18 College foramen foramen 00:00: of ovale) ovale) 00 Medicin e Hyperlipid Hyperlipid Disease Active 2018-11 [facility] emia emia 2-18 College 00:00: of 00 Medicin e Numbness Numbness Disease Active 2018-11 [facility] and and 218 [facility] tingling tingling 00:00: of 00 Medicin e 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[facility] 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 00:00: of n n 00 Medicin e Nodule of Nodule of Disease Active [facility] scrotum scrotum 01-03 [facility] 00:00: of 00 Medicin e Allergies, Adverse Reactions, Alerts Allergy Allergy Status Severity Reaction(s) Onset Inactive Treating Comm ents Source Name Type Date Date Clinician NO KNOWN Allergy Active [facility] Social History Social Habit Start Date Stop Date Quantity Comments Source Exposure to Not sure [facility] Colleg e SARS-CoV-2 (event) of Med icine Alcohol intake 2021-08-18 2021-08-18 .86 /d [facility] Col lege 00:00:00 00:00:00 of Medicine Tobacco Comment 2019-10-23 2019-10-23 stopped in 2018 [facility] or [facility] 00:00:00 00:00:00 of Medicine Alcohol Comment 2019-10-23 2019-10-23 stopped in 2018 [facility] or [facility] 00:00:00 00:00:00 of Medicine Tobacco use and 2019-08-16 2019-08-16 Never used [facility] Co llege exposure 00:00:00 00:00:00 of Medicine Cigarettes smoked 2019-08-16 2019-08-16 [facility] current (pack per 00:00:00 00:00:00 of [facility] cine day) - Reported Cigarette 2019-08-16 2019-08-16 [facility] pack-years 00:00:00 00:00:00 of Medicine History [facility] 2018-12-27 2018-12-27 4 [facility] Alcohol Frequency 00:00:00 00:00:00 of Medi cine History [facility] 2018-12-27 2018-12-27 4 [facility] Alcohol Std Drinks 00:00:00 00:00:00 of Med icine History [facility] 2018-12-27 2018-12-27 4 [facility] ge Alcohol Binge 00:00:00 00:00:00 of Medicine Sex [birth year] M [facility] Co llege 00:00:00 00:00:00 of Medicine Smoking Status Start Date Stop Date Source Former smoker 2019-08-16 00:00:00 2019-08-16 00:00:00 [facility] C ollege of Medicine Medications Ordered Filled Start Stop Current Ordering Indication Dosage Frequency Signature Comments Components Source Medication Medication Date Date Medication? Clinician (SIG) Name Name Aspirin 2020-11 Yes [facility] (ASPIR-LOW) 0-26 College 81 MG 10:44: of tablet 36 Medicin e pantoprazol 2020-11 Yes 20mg Take 20 mg [facility] e 0-26 by mouth College (PROTONIX) 10:44: daily. of 20 MG 36 Medicin tablet e Aspirin 2020-11 Yes [facility] (ASPIR-LOW) 0-26 College 81 MG 10:44: of tablet 36 Medicin e pantoprazol 2020-11 Yes 20mg Take 20 mg [facility] e 0-26 by mouth College (PROTONIX) 10:44: daily. of 20 MG 36 Medicin tablet e Aspirin Yes [facility] (ASPIR-LOW) 8-25 College 81 MG 09:15: of tablet 11 Medicin e pantoprazol Yes 20mg Take 20 mg [facility] e 8-25 by mouth College (PROTONIX) 09:15: daily. of 20 MG 11 Medicin tablet e tramadol 2020- No 50mg Take 50 mg [facility] (ULTRAM) 50 8 08-25 by mouth Col lege MG tablet 09:15: 00:00 every 6 of 07 :00 hours as Medicin needed for e Pain. acetaminoph 2020- No 1{tbl} Take 1 [facility] en-codeine 8 08-25 Tablet by Col lege (TYLENOL/CO 09:14: 00:00 mouth of DEINE #3) 49 :00 every 4 Medicin 300-30 MG hours as e per tablet needed. clonazepam Yes [facility] (KLONOPIN) 8 College 0.5 MG 00:00: of tablet 00 Medicin e mirtazapine Yes [facility] (REMERON) 06-28 College 15 MG 00:00: of tablet 00 Medicin e mirtazapine Yes 30mg 30 mg. [facility] (REMERON) 06-28 [facility] 15 MG 00:00: of tablet 00 Medicin e mirtazapine Yes 30mg 30 mg. [facility] (REMERON) 06-28 College 15 MG 00:00: of tablet 00 Medicin e clonazepam 2020-0 2020- No [facility] (KLONOPIN) 8- 10-13 College 0.5 MG 00:00: 00:00 of tablet 00 :00 Medicin e acetaminoph 0 Yes 1{tbl} Take 1 [facility] en-codeine 8-19 Tablet by Mina christopher (TYLENOL/CO 14:53: mouth of DEINE #3) 47 every 4 Medicin 300-30 MG hours as e per tablet needed. tramadol 0 Yes 50mg Take 50 mg [facility] (ULTRAM) 50 8-19 by mouth [facility] MG tablet 14:53: every 6 of 47 hours as Medicin needed for e Pain. Aspirin 2020-0 Yes [facility] (ASPIR-LOW) 8-19 [facility] 81 MG 14:53: of tablet 33 Medicin e pantoprazol 0 Yes 20mg Take 20 mg [facility] e 8-19 by mouth [facility] (PROTONIX) 14:53: daily. of 20 MG 33 Medicin tablet e amlodipine 0 Yes TAKE 1 [facility] (NORVASC) 8-05 TABLET BY Colle ge 10 MG 00:00: MOUTH of tablet 00 EVERY DAY Medicin e amlodipine 0 Yes TAKE 1 [facility] (NORVASC) 8-05 TABLET BY Colle ge 10 MG 00:00: MOUTH of tablet 00 EVERY DAY Medicin e amlodipine 2020-0 Yes TAKE 1 [facility] (NORVASC) 8-05 TABLET BY Colle ge 10 MG 00:00: MOUTH of tablet 00 EVERY DAY Medicin e Aspirin 2020-0 Yes [facility] (ASPIR-LOW) 7-27 [facility] 81 MG 14:58: of tablet 24 Medicin e pantoprazol 0 Yes 20mg Take 20 mg [facility] e 7-27 by mouth College (PROTONIX) 14:58: daily. of 20 MG 24 Medicin tablet e gabapentin 0 Yes 300mg Take 300 [facility] (NEURONTIN) 7-27 mg by [facility] 300 MG 14:58: mouth 3 of capsule 24 times Medicin daily. e acetaminoph 2020-0 Yes 1{tbl} Take 1 [facility] en-codeine 7-27 Tablet by [facility] christopher (TYLENOL/CO 14:58: mouth of DEINE #3) 24 every 4 Medicin 300-30 MG hours as e per tablet needed. tramadol 2020-0 Yes 50mg Take 50 mg [facility] (ULTRAM) 50 7-27 by mouth [facility] MG tablet 14:58: every 6 of 24 hours as Medicin needed for e Pain. atorvastati 2020-0 Yes [id number] 40mg Take 1 [facility] n (LIPITOR) 7-27 Tablet by Col lege 40 MG 00:00: mouth of tablet 00 daily. Medicin e metoprolol 2020-0 Yes [id number] 50mg Take 1 [facility] (TOPROL-XL) 7-27 Tablet by Col lege 50 MG XL 00:00: mouth two of tablet 00 times Medicin daily. e atorvastati 2020-0 Yes [id number] 40mg Take 1 [facility] n (LIPITOR) 7-27 Tablet by Col lege 40 MG 00:00: mouth of tablet 00 daily. Medicin e metoprolol 2020-0 Yes [id number] 50mg Take 1 [facility] (TOPROL-XL) 7-27 Tablet by Col lege 50 MG XL 00:00: mouth two of tablet 00 times Medicin daily. e atorvastati 2020-0 Yes [id number] 40mg Take 1 [facility] n (LIPITOR) 7-27 Tablet by Col lege 40 MG 00:00: mouth of tablet 00 daily. Medicin e metoprolol 2020-0 Yes [id number] 50mg Take 1 [facility] (TOPROL-XL) 7-27 Tablet by Col lege 50 MG XL 00:00: mouth two of tablet 00 times Medicin daily. e atorvastati 2020-0 Yes [id number] 40mg Take 1 [facility] n (LIPITOR) 7-27 Tablet by Col lege 40 MG 00:00: mouth of tablet 00 daily. Medicin e metoprolol 2020-0 Yes [id number] 50mg Take 1 [facility] (TOPROL-XL) 7-27 Tablet by Col lege 50 MG XL 00:00: mouth two of tablet 00 times Medicin daily. e atorvastati 2020-0 Yes [id number] 40mg Take 1 [facility] n (LIPITOR) 7-27 Tablet by Col lege 40 MG 00:00: mouth of tablet 00 daily. Medicin e metoprolol 2021-0 Yes [id number] 50mg Take 1 [facility] (TOPROL-XL) 06-01 Tablet by Col lege 50 MG XL 00:00: mouth two of tablet 00 times Medicin daily. e metoprolol 2020- No [id number] TAKE 1 [facility] (TOPROL-XL) 05-14 TABLET BY Co llege 50 MG XL 00:00: 00:00 MOUTH of tablet 00 :00 EVERY DAY Medicin e gabapentin Yes 300mg Take 300 [facility] (NEURONTIN) 04-14 mg by [facility] 300 MG 15:11: mouth 3 of capsule 22 times Medicin daily. e Aspirin Yes [facility] (ASPIR-LOW) 04-14 [facility] 81 MG 15:10: of tablet 47 Medicin e pantoprazol Yes 20mg Take 20 mg [facility] e 04-14 by mouth [facility] (PROTONIX) 15:10: daily. of 20 MG 47 Medicin tablet e mirtazapine 2020- No 1{tbl} Take 1 [facility] (REMERON) 04-14 Tablet by [facility] 7.5 MG 15:10: 00:00 mouth of tablet 17 :00 daily. Medicin e busPIRone 2020- No 1{tbl} Take 1 [facility] (BUSPAR) 04-14 Tablet by Colle ge 7.5 MG 15:09: 00:00 mouth of tablet 47 :00 daily. Medicin e clopidogrel 2020- No 75mg Take 1 [facility] (PLAVIX) 75 04-02 Tablet by Co llege MG Tablet 00:00: 04:59 mouth of 00 :00 daily for Medicin 90 doses. e clopidogrel 2020- No 75mg Take 1 [facility] (PLAVIX) 75 04-02- Tablet by Co llege MG Tablet 00:00: 04:59 mouth of 00 :00 daily for Medicin 90 doses. e clopidogrel 2020- No 75mg Take 1 [facility] (PLAVIX) 75 04-02- Tablet by Co llege MG Tablet 00:00: 04:59 mouth of 00 :00 daily for Medicin 90 doses. e clopidogrel 2021-0 2021- No 75mg Take 1 [facility] (PLAVIX) 75 -03 07- Tablet by Co llege MG Tablet 00:00: 04:59 mouth of 00 :00 daily for Medicin 90 doses. e clopidogrel 2020- No 75mg Take 1 [facility] (PLAVIX) 75 5-28 -27 Tablet by Co llege MG Tablet 00:00: 04:59 mouth of 00 :00 daily for Medicin 90 doses. e Aspirin 0 Yes [facility] (ASPIR-LOW) 4-28 College 81 MG 17:15: of tablet 19 Medicin e pantoprazol 0 Yes 20mg Take 20 mg [facility] e 4-28 by mouth College (PROTONIX) 17:15: daily. of 20 MG 19 Medicin tablet e mirtazapine Yes 1{tbl} Take 1 [facility] (REMERON) 4-28 Tablet by Colle ge 7.5 MG 17:15: mouth of tablet 19 daily. Medicin e busPIRone Yes 1{tbl} Take 1 [facility] (BUSPAR) 4-28 Tablet by Colleg e 7.5 MG 17:15: mouth of tablet 19 daily. Medicin e Aspirin Yes [facility] (ASPIR-LOW) 4-28 [facility] 81 MG 12:15: of tablet 19 Medicin e pantoprazol 0 Yes 20mg Take 20 mg [facility] e 4-28 by mouth College (PROTONIX) 12:15: daily. of 20 MG 19 Medicin tablet e mirtazapine Yes 1{tbl} Take 1 [facility] (REMERON) 4-28 Tablet by Colle ge 7.5 MG 12:15: mouth of tablet 19 daily. Medicin e busPIRone Yes 1{tbl} Take 1 [facility] (BUSPAR) 4-28 Tablet by Colleg e 7.5 MG 12:15: mouth of tablet 19 daily. Medicin e meloxicam Yes [id number] 15mg Take 1 [facility] (MOBIC) 15 4-28 Tablet by [facility] MG tablet 00:00: mouth of 00 daily. Medicin e meloxicam 2020-0 Yes [id number] 15mg Take 1 [facility] (MOBIC) 15 4-28 Tablet by [facility] MG tablet 00:00: mouth of 00 daily. Medicin e meloxicam 2020- No [id number] 15mg Take 1 [facility] (MOBIC) 15 03-03-09 Tablet by Col lege MG tablet 00:00: 00:00 mouth of 00 :00 daily. Medicin e levofloxaci 2020-0 2020- No [id number] 500mg Take 1 [facility] n 03-03- Tablet by [facility] (LEVAQUIN) 00:00: 04:59 mouth of 500 MG 00 :00 daily for Medicin tablet 14 days. e Aspirin Yes [facility] (ASPIR-LOW) 02-16 [facility] 81 MG 14:34: of tablet 32 Medicin e pantoprazol Yes 20mg Take 20 mg [facility] e 02-16 by mouth [facility] (PROTONIX) 14:34: daily. of 20 MG 32 Medicin tablet e metoprolol Yes [id number] 50mg Take 1 [facility] (TOPROL-XL) 4-13 Tablet by [facility] 50 MG XL 00:00: mouth of tablet 00 daily. Medicin e metoprolol Yes [id number] 50mg Take 1 [facility] (TOPROL-XL) 4-13 Tablet by Col [facility]ge 50 MG XL 00:00: mouth of tablet 00 daily. Medicin e metoprolol Yes [id number] 50mg Take 1 [facility] (TOPROL-XL) 4-13 Tablet by [facility] 50 MG XL 00:00: mouth of tablet 00 daily. Medicin e metoprolol Yes [id number] 50mg Take 1 [facility] (TOPROL-XL) 4-13 Tablet by Col [facility]ge 50 MG XL 00:00: mouth of tablet 00 daily. Medicin e clopidogrel 2020-2021- No 75mg Take 75 mg [facility] (PLAVIX) 75 01-08-06 by mouth. Co llege MG Tablet 00:00: 05:59 of 00 :00 Medicin e clopidogrel 2020-0 2021- No 75mg Take 75 mg [facility] (PLAVIX) 75 -03 08-06 by mouth. Co llege MG Tablet 00:00: 05:59 of 00 :00 Medicin e topiramate 2020- Yes 1{tbl} Take 1 [facility] (TOPAMAX) 2-25 Tablet by Colle ge 50 MG 00:00: mouth of tablet 00 daily. Medicin e topiramate Yes 1{tbl} Take 1 [facility] (TOPAMAX) 2-25 Tablet by Colle ge 50 MG 00:00: mouth of tablet 00 daily. Medicin e topiramate 2020- No 1{tbl} Take 1 [facility] (TOPAMAX) 2-25 06-09 Tablet by [facility] 50 MG 00:00: 00:00 mouth of tablet 00 :00 daily. Medicin e Aspirin Yes [facility] (ASPIR-LOW) 2- College 81 MG 15:45: of tablet 46 Medicin e Aspirin Yes [facility] (ASPIR-LOW) 2- College 81 MG 15:45: of tablet 46 Medicin e omeprazole 2020- No 40mg Take 40 mg [facility] (PRILOSEC) 112-02 by mouth. Col lege 40 MG 20:58: 00:00 of capsule 46 :00 Medicin e atorvastati Yes TAKE 1 [facility] n (LIPITOR) 1-19 TABLET BY Col [facility]ge 10 MG 00:00: MOUTH of tablet 00 EVERY DAY Medicin e atorvastati Yes TAKE 1 [facility] (LIPITOR) 1-19 TABLET BY Col [facility]ge 10 MG 00:00: MOUTH of tablet 00 EVERY DAY Medicin e atorvastati Yes TAKE 1 [facility] (LIPITOR) 1-19 TABLET BY Col [facility]ge 10 MG 00:00: MOUTH of tablet 00 EVERY DAY Medicin e atorvastati 2020- No TAKE 1 [facility] n (LIPITOR) 1-19 04-13 TABLET BY Co llege 10 MG 00:00: 00:00 MOUTH of tablet 00 :00 EVERY DAY Medicin e losartan Yes TAKE 1 [facility] (COZAAR) 1-14 TABLET BY Colleg e 100 MG 00:00: MOUTH of tablet 00 EVERY DAY Medicin e losartan Yes TAKE 1 [facility] (COZAAR) 1-14 TABLET BY Colleg e 100 MG 00:00: MOUTH of tablet 00 EVERY DAY Medicin e losartan 0 Yes TAKE 1 [facility] (COZAAR) 1-14 TABLET BY Colleg e 100 MG 00:00: MOUTH of tablet 00 EVERY DAY Medicin e losartan 0 Yes TAKE 1 [facility] (COZAAR) 1-14 TABLET BY Colleg e 100 MG 00:00: MOUTH of tablet 00 EVERY DAY Medicin e losartan 0 Yes TAKE 1 [facility] (COZAAR) 1-14 TABLET BY Colleg e 100 MG 00:00: MOUTH of tablet 00 EVERY DAY Medicin e losartan 0 Yes TAKE 1 [facility] (COZAAR) 1-14 TABLET BY Colleg e 100 MG 00:00: MOUTH of tablet 00 EVERY DAY Medicin e losartan 0 Yes TAKE 1 [facility] (COZAAR) 1-14 TABLET BY Colleg e 100 MG 00:00: MOUTH of tablet 00 EVERY DAY Medicin e losartan 0 Yes TAKE 1 [facility] (COZAAR) 1-14 TABLET BY Colleg e 100 MG 00:00: MOUTH of tablet 00 EVERY DAY Medicin e losartan 0 Yes TAKE 1 [facility] (COZAAR) 1-14 TABLET BY Colleg e 100 MG 00:00: MOUTH of tablet 00 EVERY DAY Medicin e losartan 0 Yes TAKE 1 [facility] (COZAAR) 1-14 TABLET BY Colleg e 100 MG 00:00: MOUTH of tablet 00 EVERY DAY Medicin e losartan 0 Yes TAKE 1 [facility] (COZAAR) 1-14 TABLET BY Colleg e 100 MG 00:00: MOUTH of tablet 00 EVERY DAY Medicin e losartan 0 Yes TAKE 1 [facility] (COZAAR) 1-14 TABLET BY Colleg e 100 MG 00:00: MOUTH of tablet 00 EVERY DAY Medicin e cyclobenzap 0 Yes TAKE 1 [facility] 1-13 TABLET BY [facility] (FLEXERIL) 00:00: MOUTH of 10 MG 00 THREE Medicin tablet TIMES A e DAY NEEDED cyclobenzap 0 Yes TAKE 1 [facility] 1-13 TABLET BY [facility] (FLEXERIL) 00:00: MOUTH of 10 MG 00 THREE Medicin tablet TIMES A e DAY NEEDED cyclobenzap 0 Yes TAKE 1 [facility] 1-13 TABLET BY [facility] (FLEXERIL) 00:00: MOUTH of 10 MG 00 THREE Medicin tablet TIMES A e DAY NEEDED cyclobenzap 2021-0 Yes TAKE 1 [facility] 1-13 TABLET BY College (FLEXERIL) 00:00: MOUTH of 10 MG 00 THREE Medicin tablet TIMES A e DAY NEEDED cyclobenzap 2021-0 Yes TAKE 1 [facility] 1-13 TABLET BY College (FLEXERIL) 00:00: MOUTH of 10 MG 00 THREE Medicin tablet TIMES A e DAY NEEDED cyclobenzap 2021-0 Yes TAKE 1 [facility] 1-13 TABLET BY College (FLEXERIL) 00:00: MOUTH of 10 MG 00 THREE Medicin tablet TIMES A e DAY NEEDED cyclobenzap 2021-0 Yes TAKE 1 [facility] 1-13 TABLET BY College (FLEXERIL) 00:00: MOUTH of 10 MG 00 THREE Medicin tablet TIMES A e DAY NEEDED cyclobenzap 2021-0 Yes TAKE 1 [facility] 1-13 TABLET BY College (FLEXERIL) 00:00: MOUTH of 10 MG 00 THREE Medicin tablet TIMES A e DAY NEEDED cyclobenzap 2021-0 Yes TAKE 1 [facility] 1-13 TABLET BY College (FLEXERIL) 00:00: MOUTH of 10 MG 00 THREE Medicin tablet TIMES A e DAY NEEDED cyclobenzap 2021-0 Yes TAKE 1 [facility] 1-13 TABLET BY College (FLEXERIL) 00:00: MOUTH of 10 MG 00 THREE Medicin tablet TIMES A e DAY NEEDED cyclobenzap 2021-0 2021- No TAKE 1 [facility] rine 1-13 10-13 TABLET BY College (FLEXERIL) 00:00: 00:00 MOUTH of 10 MG 00 :00 THREE Medicin tablet TIMES A e DAY NEEDED magnesium 2021-0 Yes TAKE 1 [facility] oxide 1-04 TABLET BY College (MAG-OX) 00:00: MOUTH of 400 MG 00 EVERY DAY Medicin tablet e magnesium 2021-0 Yes TAKE 1 [facility] oxide 1-04 TABLET BY College (MAG-OX) 00:00: MOUTH of 400 MG 00 EVERY DAY Medicin tablet e magnesium 2021-0 Yes TAKE 1 [facility] oxide 1-04 TABLET BY [facility] (MAG-OX) 00:00: MOUTH of 400 MG 00 EVERY DAY Medicin tablet e magnesium 2021-0 Yes TAKE 1 [facility] oxide 1-04 TABLET BY [facility] [place] [place] 00:[place]: MOUTH of 400 MG 00 EVERY DAY Medicin tablet e magnesium Yes TAKE 1 [facility] oxide 1-04 TABLET BY [facility] ([facility]) 00:00: MOUTH of 400 MG 00 EVERY DAY Medicin tablet e magnesium Yes TAKE 1 [facility] oxide 1-04 TABLET BY [facility] ([facility]) 00:00: MOUTH of 400 MG 00 EVERY DAY Medicin tablet e magnesium 2020- No TAKE 1 [facility] oxide 1-04 06-09 TABLET BY [facility] ([facility]) 00:00: 00:00 MOUTH of 400 MG 00 :00 EVERY DAY Medicin tablet e omeprazole 2019-11 Yes TAKE 1 [facility] (PRILOSEC) 2-29 CAPSULE BY Col [facility]ge 20 MG 00:00: MOUTH of capsule 00 EVERY DAY Medicin e omeprazole 2019-11 Yes TAKE 1 [facility] (PRILOSEC) 2-29 CAPSULE BY Col [facility]ge 20 MG 00:00: MOUTH of capsule 00 EVERY DAY Medicin e omeprazole 2019-11 Yes TAKE 1 [facility] (PRILOSEC) 2-29 CAPSULE BY Col [facility]ge 20 MG 00:00: MOUTH of capsule 00 EVERY DAY Medicin e omeprazole 2019-11 Yes 20mg Take 20 mg [facility] (PRILOSEC) 2-29 by mouth Colle ge 20 MG 00:00: daily. of capsule 00 Medicin e omeprazole 2019-11 Yes 20mg Take 20 mg [facility] (PRILOSEC) 2-29 by mouth Colle ge 20 MG 00:00: daily. of capsule 00 Medicin e omeprazole 2019-11- No 20mg Take 20 mg [facility] (PRILOSEC) 2-29 06-09 by mouth [facility] 20 MG 00:00: 00:00 daily. of capsule 00 :00 Medicin e omeprazole 2019-11- No TAKE 1 [facility] (PRILOSEC) 2-29 04-13 CAPSULE BY Co llege 20 MG 00:00: 00:00 MOUTH of capsule 00 :00 EVERY DAY Medicin e lactulose 2019-11 Yes TAKE BY [facility] (CHRONULAC) 1-24 MOUTH 60 [facility] 10 GM/15ML 00:00: MILLILIGTE o f solution 00 R EVERY Medicin NIGHT e lactulose 2019-11 Yes TAKE BY [facility] (CHRONULAC) 11-29 MOUTH 60 [facility] 10 GM/15ML 00:00: MILLILIGTE o f solution 00 R EVERY Medicin NIGHT e lactulose 2019-11 Yes TAKE BY [facility] (CHRONULAC) 11-29 MOUTH 60 [facility] 10 GM/15ML 00:00: MILLILIGTE o f solution 00 R EVERY Medicin NIGHT e lactulose 2019-11 Yes TAKE BY [facility] (CHRONULAC) 11-29 MOUTH 60 [facility] 10 GM/15ML 00:00: MILLILIGTE o f solution 00 R EVERY Medicin NIGHT e lactulose 2019-11- No TAKE BY [facility] (CHRONULAC) 11-29 MOUTH 60 [facility]ge 10 GM/15ML 00:00: 00:00 MILLILIGTE of solution 00 :00 R EVERY Medicin NIGHT e omeprazole 2019-11 Yes 40mg Take 40 mg [facility] (PRILOSEC) 0-01 by mouth. [facility] 40 MG 19:11: of capsule 14 Medicin e Aspirin 2019-11 Yes [facility] (ASPIR-LOW) 0-01 College 81 MG 19:11: of tablet 14 Medicin e omeprazole 2019-11 Yes 40mg Take 40 mg [facility] (PRILOSEC) 0-01 by mouth. [facility] 40 MG 19:11: of capsule 14 Medicin e Aspirin 2019- Yes [facility] (ASPIR-LOW) 0-01 College 81 MG 19:11: of tablet 14 Medicin e Aspirin 2020-1 Yes [facility] (ASPIR-LOW) 0-01 College 81 MG 19:11: of tablet 14 Medicin e omeprazole 2020-0 Yes 40mg Take 40 mg [facility] (PRILOSEC) 6-18 by mouth. [facility] 40 MG 16:35: of capsule 38 Medicin e omeprazole 2020-0 Yes 40mg Take 40 mg [facility] (PRILOSEC) 3-18 by mouth. [facility] 40 MG 14:47: of capsule 31 Medicin e atorvastati 2018-11 Yes [id number] 20mg Take 1 Tab [facility] n (LIPITOR) 2-18 by mouth [facility] 20 MG 00:00: daily. of tablet 00 Medicin e atorvastati 2018-11 Yes [id number] 20mg Take 1 Tab [facility] n (LIPITOR) 2-18 by mouth [facility] 20 MG 00:00: daily. of tablet 00 Medicin e atorvastati 2018-11 Yes [id number] 20mg Take 1 Tab [facility] n (LIPITOR) 2-18 by mouth [facility] 20 MG 00:00: daily. of tablet 00 Medicin e atorvastati 2018-11 Yes [id number] 20mg Take 1 Tab [facility] n (LIPITOR) 2-18 by mouth [facility] 20 MG 00:00: daily. of tablet 00 Medicin e atorvastati 2018-11 Yes [id number] 20mg Take 1 Tab [facility] (LIPITOR) 2-18 by mouth [facility] 20 MG 00:00: daily. of tablet 00 Medicin e atorvastati 2018-11 Yes [id number] 20mg Take 1 Tab [facility] (LIPITOR) 2-18 by mouth [facility] 20 MG 00:00: daily. of tablet 00 Medicin e atorvastati 2018-11 Yes [id number] 20mg Take 1 Tab [facility] (LIPITOR) 2-18 by mouth [facility] 20 MG 00:00: daily. of tablet 00 Medicin e atorvastati 2018-11 Yes [id number] 20mg Take 1 Tab [facility] n (LIPITOR) 2-18 by mouth [facility] 20 MG 00:00: daily. of tablet 00 Medicin e atorvastati 2018-11 Yes [id number] 20mg Take 1 Tab [facility] (LIPITOR) 2-18 by mouth [facility] 20 MG 00:00: daily. of tablet 00 Medicin e atorvastati 2018-11 Yes [id number] 20mg Take 1 Tab [facility] (LIPITOR) 2-18 by mouth [facility] 20 MG 00:00: daily. of tablet 00 Medicin e atorvastati 2018-11 Yes [id number] 20mg Take 1 Tab [facility] n (LIPITOR) 2-18 by mouth [facility] 20 MG 00:00: daily. of tablet 00 Medicin e atorvastati 2018-11- No [id number] 20mg Take 1 Tab [facility] n (LIPITOR) 2-18 07-27 by mouth [facility] 20 MG 00:00: 00:00 daily. of tablet 00 :00 Medicin e atorvastati 2018-11 Yes 10mg Take 10 mg [facility] n (LIPITOR) 0-11 by mouth. [facility] 10 MG 18:00: of tablet 28 Medicin e omeprazole 2018-11 Yes 40mg Take 40 mg [facility] (PRILOSEC) 0-11 by mouth. [facility] 40 MG 18:00: of capsule 28 Medicin e MethylPREDN MethylPREDN Yes [facility] as [facility] IS[facility] ISolone 07-25 [facility] Tramadol Tramadol Yes [facility] HCl HCl 07-09 [facility] hydrOXYzine Yes 25mg Take 1 Tab [facility] (ATARAX) 25 6-03 by mouth 3 [facility] MG tablet 00:00: times of 00 daily as Medicin needed for e Itching (for body tingling/n umbness). mirtazapine Yes TAKE 1 [facility] (REMERON) 5-09 TABLET (30 [facility] 30 MG 00:00: MG) BY of tablet 00 MOUTH Medicin DAILY AT e BEDTIME NEEDED mirtazapine Yes TAKE 1 [facility] (REMERON) 5-09 TABLET (30 [facility] 30 MG 00:00: MG) BY of tablet 00 MOUTH Medicin DAILY AT e BEDTIME NEEDED mirtazapine Yes TAKE 1 [facility] (REMERON) 5-09 TABLET (30 [facility] 30 MG 00:00: MG) BY of tablet 00 MOUTH Medicin DAILY AT e BEDTIME NEEDED mirtazapine Yes TAKE 1 [facility] (REMERON) 5-09 TABLET (30 [facility] 30 MG 00:00: MG) BY of tablet 00 MOUTH Medicin DAILY AT e BEDTIME NEEDED mirtazapine Yes TAKE 1 [facility] (REMERON) 5-09 TABLET (30 [facility] 30 MG 00:00: MG) BY of tablet 00 MOUTH Medicin DAILY AT e BEDTIME NEEDED mirtazapine Yes TAKE 1 [facility] (REMERON) 5-09 TABLET (30 [facility] 30 MG 00:00: MG) BY of tablet 00 MOUTH Medicin DAILY AT e BEDTIME NEEDED mirtazapine 2020- No TAKE 1 [facility] (REMERON) 09 - TABLET (30 [facility] 30 MG 00:00: 00:00 MG) BY of tablet 00 :00 MOUTH Medicin DAILY AT e BEDTIME NEEDED famotidine 2019- No TAKE 1 [facility] (PEPCID) 20 5-05 10-11 TABLET BY [facility] MG tablet 00:00: 00:00 MOUTH of 00 :00 TWICE A Medicin DAY e folic acid Yes TAKE 1 [facility] (FOLVITE) 1 5-04 TABLET BY [facility] MG tablet 00:00: MOUTH of 00 EVERY DAY Medicin e folic acid 2020- No TAKE 1 [facility] (FOLVITE) 1 5-04 03-18 TABLET BY [facility] MG tablet 00:00: 00:00 MOUTH of 00 :00 EVERY DAY Medicin e aspirin EC 2019- No 81mg Take 81 mg [facility] 81 MG 30 -30 by mouth. College tablet 00:00: 04:59 of 00 :00 Medicin e amlodipine Yes TAKE 1 [facility] (NORVASC) 1-08 TABLET BY [facility] 10 MG 00:00: MOUTH of tablet 00 EVERY DAY Medicin e losartan Yes TAKE 1 [facility] (COZAAR) 50 1-08 TABLET BY [facility] MG tablet 00:00: MOUTH of 00 EVERY DAY Medicin e amlodipine Yes TAKE 1 [facility] (NORVASC) 1-08 TABLET BY [facility] 10 MG 00:00: MOUTH of tablet 00 EVERY DAY Medicin e losartan Yes TAKE 1 [facility] (COZAAR) 50 1-08 TABLET BY [facility] MG tablet 00:00: MOUTH of 00 EVERY DAY Medicin e amlodipine Yes TAKE 1 [facility] (NORVASC) 1-08 TABLET BY [facility] 10 MG 00:00: MOUTH of tablet 00 EVERY DAY Medicin e losartan Yes TAKE 1 [facility] (COZAAR) 50 1-08 TABLET BY [facility] MG tablet 00:00: MOUTH of 00 EVERY DAY Medicin e amlodipine 2019-0 Yes TAKE 1 [facility] (NORVASC) 1-08 TABLET BY [facility] 10 MG 00:00: MOUTH of tablet 00 EVERY DAY Medicin e amlodipine Yes TAKE 1 [facility] (NORVASC) 1-08 TABLET BY [facility] 10 MG 00:00: MOUTH of tablet 00 EVERY DAY Medicin e amlodipine Yes TAKE 1 [facility] (NORVASC) 1-08 TABLET BY [facility] 10 MG 00:00: MOUTH of tablet 00 EVERY DAY Medicin e amlodipine Yes TAKE 1 [facility] (NORVASC) 1-08 TABLET BY [facility] 10 MG 00:00: MOUTH of tablet 00 EVERY DAY Medicin e amlodipine Yes TAKE 1 [facility] (NORVASC) 1-08 TABLET BY [facility] 10 MG 00:00: MOUTH of tablet 00 EVERY DAY Medicin e amlodipine Yes TAKE 1 [facility] (NORVASC) 1-08 TABLET BY [facility] 10 MG 00:00: MOUTH of tablet 00 EVERY DAY Medicin e amlodipine Yes TAKE 1 [facility] (NORVASC) 1-08 TABLET BY [facility] 10 MG 00:00: MOUTH of tablet 00 EVERY DAY Medicin e amlodipine Yes TAKE 1 [facility] (NORVASC) 1-08 TABLET BY [facility] 10 MG 00:00: MOUTH of tablet 00 EVERY DAY Medicin e amlodipine Yes TAKE 1 [facility] (NORVASC) 1-08 TABLET BY [facility] 10 MG 00:00: MOUTH of tablet 00 EVERY DAY Medicin e amlodipine Yes TAKE 1 [facility] (NORVASC) 1-08 TABLET BY [facility] 10 MG 00:00: MOUTH of tablet 00 EVERY DAY Medicin e losartan Yes TAKE 1 [facility] (COZAAR) 50 1-08 TABLET BY [facility] MG tablet 00:00: MOUTH of 00 EVERY DAY Medicin e amlodipine Yes TAKE 1 [facility] (NORVASC) 1-08 TABLET BY [facility] 10 MG 00:00: MOUTH of tablet 00 EVERY DAY Medicin e losartan Yes TAKE 1 [facility] (COZAAR) 50 1-08 TABLET BY [facility] MG tablet 00:00: MOUTH of 00 EVERY DAY Medicin e amlodipine 2020- No TAKE 1 [facility] (NORVASC) 1-08 08-25 TABLET BY [facility] 10 MG 00:00: 00:00 MOUTH of tablet 00 :00 EVERY DAY Medicin e losartan 2019-0 2020- No TAKE 1 [facility] (COZAAR) 50 11-13 TABLET BY Co llege MG tablet 00:00: 00:00 MOUTH of 00 :00 EVERY DAY Medicin e Omeprazole Omeprazole Yes Jorge not [facility] Aspirin 81 Aspirin 81 Yes Jorge not [facility] atorvastati at[facility]vastati Yes Jorge not [facility] Amlodipine Amlodipine Yes Jorge not [facility] Besylate Besylate [facility] Immunizations Ordered Immunization Filled Immunization Date Status Commen ts Source Name Name Influenza 2021-08-04 Completed [facility] Intr[facility] 00:00:00 of Medicine Influenza 2021-08-04 Completed [facility] Intrad[facility] 00:00:00 of Medicine Influenza Quad-PF 2020-07-16 Completed [facility] 00:00:00 of Medicine Influenza Quad-PF 2020-07-16 Completed [facility] 00:00:00 of Medicine Influenza Quad-PF 2020-07-16 Completed [facility] 00:00:00 of Medicine Influenza Quad-PF 2020-07-16 Completed [facility] 00:00:00 of Medicine Influenza Quad-PF 2020-07-16 Completed [facility] 00:00:00 of Medicine Influenza Quad-PF 2020-07-16 Completed [facility] 00:00:00 of Medicine Influenza Quad-PF 2020-07-16 Completed [facility] 00:00:00 of Medicine Influenza Quad-PF 2020-07-16 Completed [facility] 00:00:00 of Medicine Influenza Quad-PF 2020-07-16 Completed [facility] 00:00:00 of Medicine Influenza Quad-PF 2020-07-16 Completed [facility] 00:00:00 of Medicine Influenza Quad-PF 2020-07-16 Completed [facility] 00:00:00 of Medicine Influenza Quad-PF 2020-07-16 Completed [facility] 00:00:00 of Medicine Influenza Quad-PF 2020-07-16 Completed [facility] 00:00:00 of Medicine Influenza Quad-PF 2020-07-16 Completed [facility] 00:00:00 of Medicine Influenza Quad-PF 2019-07-07 Completed [facility] 00:00:00 of Medicine Influenza Quad-PF 2019-07-07 Completed [facility] 00:00:00 of Medicine Influenza Quad-PF 2019-07-07 Completed [facility] 00:00:00 of Medicine Influenza Quad-PF 2019-07-07 Completed [facility] 00:00:00 of Medicine Influenza Quad-PF 2019-07-07 Completed [facility] 00:00:00 of Medicine Influenza Quad-PF 2019-07-07 Completed [facility] 00:00:00 of Medicine Influenza Quad-PF 2019-07-07 Completed [facility] 00:00:00 of Medicine Influenza Quad-PF 2019-07-07 Completed [facility] 00:00:00 of Medicine Influenza Quad-PF 2019-07-07 Completed [facility] 00:00:00 of Medicine Influenza Quad-PF 2019-07-07 Completed [facility] 00:00:00 of Medicine Influenza Quad-PF 2019-07-07 Completed [facility] 00:00:00 of Medicine Influenza Quad-PF 2019-07-07 Completed [facility] 00:00:00 of Medicine Influenza Quad-PF 2019-07-07 Completed [facility] 00:00:00 of Medicine Influenza Quad-PF 2019-07-07 Completed [facility] 00:00:00 of Medicine Influenza Quad-PF 2019-07-07 Completed [facility] 00:00:00 of Medicine Influenza Quad-PF 2019-07-07 Completed [facility] 00:00:00 of Medicine Vital Signs Vital Name Observation Time Observation Value Comments Source WEIGHT 2021-05-17 04:44:00 79.379 kg WEIGHT 2021-05-16 08:19:00 80.876 kg HEIGHT 2021-05-13 09:24:00 157.5 cm WEIGHT 2021-05-13 09:24:00 80.6 kg WEIGHT 2021-05-05 07:06:00 79.854 kg HEIGHT 2021-05-04 07:18:00 157.5 cm WEIGHT 2021-05-04 07:18:00 79.878 kg HEIGHT 2021-05-03 07:34:00 165.1 cm WEIGHT 2021-05-03 07:34:00 81.557 kg WEIGHT 2021-01-08 09:31:00 83.779 kg HEIGHT 2021-01-08 09:31:00 165.1 cm Systolic blood 2021-08-31 15:43:00 133 mm[Hg] [facility] pressure Medicine Diastolic blood 2021-08-31 15:43:00 85 mm[Hg] [facility] Medicine Heart rate 2021-08-31 15:43:00 70 /min [facility] Respiratory rate 2021-08-31 15:43:00 16 /min [facility] Body height 2021-08-31 15:43:00 162.6 cm [facility] Body weight 2021-08-31 15:43:00 79.833 kg [facility] BMI 2021-08-31 15:43:00 30.21 kg/m2 [facility] Oxygen saturation in 2021-08-31 15:43:00 99 /min [facility] Arterial blood by [facility] Pulse oximetry Systolic blood 2021-08-18 19:04:00 148 mm[Hg] [facility] pressure Medicine Diastolic blood 2021-08-18 19:04:00 78 mm[Hg] [facility] Medicine Heart rate 2021-08-18 19:04:00 76 /min [facility] Respiratory rate 2021-08-18 19:04:00 16 /min [facility] Systolic blood 2021-06-30 14:11:00 144 mm[Hg] [facility] Medicine Diastolic blood 2021-06-30 14:11:00 81 mm[Hg] [facility] Medicine Heart rate 2021-06-30 14:11:00 80 /min [facility] Body temperature 2021-06-30 14:11:00 36.61 Leah [facility] Respiratory rate 2021-06-30 14:11:00 16 /min [facility] Body height 2021-06-30 14:11:00 162.6 cm [facility] Body weight 2021-06-30 14:11:00 [facility] 2021-06-30 14:11:00 29.52 [facility]2 [facility] Systolic blood 2021-06-24 19:52:00 131 mm[Hg] [facility] Medicine Diastolic blood 2021-06-24 19:52:00 81 mm[Hg] [facility] Heart rate 2021-06-24 19:52:00 92 /min [facility] Respiratory rate 2021-06-24 19:52:00 16 /min [facility] Body height 2021-06-24 19:52:00 162.6 cm [facility] Body weight 2021-06-24 19:52:00 78.019 kg [facility] BMI 2021-06-24 19:52:00 29.52 kg/m2 [facility] Oxygen saturation in 2021-06-24 19:52:00 98 /min [facility] Arterial blood by Medicine Pulse oximetry HEIGHT 2021-06-02 08:50:00 157.5 cm WEIGHT 2021-06-02 08:50:00 79.289 kg Systolic blood 2021-06-01 19:52:00 155 mm[Hg] [facility] pressure Medicine Diastolic blood 2021-06-01 19:52:00 89 mm[Hg] [facility] pressure Medicine Heart rate 2021-06-01 19:52:00 92 /min [facility] Respiratory rate 2021-06-01 19:52:00 16 /min [facility] Body height 2021-06-01 19:52:00 162.6 cm [facility] Body weight 2021-06-01 19:52:00 78.472 kg [facility] BMI 2021-06-01 19:52:00 29.70 kg/m2 [facility] Oxygen saturation in 2021-06-01 19:52:00 98 /min [facility] blood by [facility] Pulse oximetry WEIGHT 2021-05-17 04:44:00 79.379 kg WEIGHT 2021-05-16 08:19:00 80.876 kg HEIGHT 2021-05-13 09:24:00 157.5 cm WEIGHT 2021-05-13 09:24:00 80.6 kg HEIGHT 2021-05-11 12:10:00 157.5 cm WEIGHT 2021-05-11 12:10:00 79.379 kg HEIGHT 2021-05-11 12:10:00 157.5 cm WEIGHT 2021-05-11 12:10:00 79.379 kg WEIGHT 2021-05-05 07:06:00 79.854 kg HEIGHT 2021-05-04 07:18:00 157.5 cm WEIGHT 2021-05-04 07:18:00 79.878 kg HEIGHT 2021-05-03 07:34:00 165.1 cm WEIGHT 2021-05-03 07:34:00 81.557 kg HEIGHT 2021-04-29 09:48:00 165.1 cm WEIGHT 2021-04-29 09:48:00 81.874 kg HEIGHT 2021-04-29 09:48:00 165.1 cm WEIGHT 2021-04-29 09:48:00 81.874 kg Systolic blood 2021-04-14 20:07:00 145 mm[Hg] [facility] pressure Medicine Diastolic blood 2021-04-14 20:07:00 83 mm[Hg] [facility] pressure Medicine Heart rate 2021-04-14 20:07:00 89 /min [facility] Body temperature 2021-04-14 20:07:00 36.44 Leah [facility] Body height 2021-04-14 20:07:00 162.6 cm [facility] Body weight 2021-04-14 20:07:00 81.647 kg [facility] BMI 2021-04-14 20:07:00 30.90 kg/m2 [facility] Medicine Systolic blood 2021-04-14 20:07:00 145 mm[Hg] [facility] of pressure Medicine Diastolic blood 2021-04-14 20:07:00 83 mm[Hg] [facility] pressure Medicine Heart rate 2021-04-14 20:07:00 89 /min [facility] Body temperature 2021-04-14 20:07:00 36.44 Leah [facility] Body height 2021-04-14 20:07:00 162.6 cm [facility] Body weight 2021-04-14 20:07:00 81.647 kg [facility] BMI 2021-04-14 20:07:00 30.90 kg/m2 [facility] WEIGHT 2021-03-22 09:56:00 81.647 kg WEIGHT 2021-03-22 09:56:00 81.647 kg Systolic blood 2021-03-03 17:15:00 159 mm[Hg] [facility] pressure Medicine Diastolic blood 2021-03-03 17:15:00 89 mm[Hg] [facility] pressure Medicine Heart rate 2021-03-03 17:15:00 99 /min [facility] Body height 2021-03-03 17:15:00 162.6 cm [facility] Body weight 2021-03-03 17:15:00 83.915 kg [facility] BMI 2021-03-03 17:15:00 31.76 kg/m2 [facility] Systolic blood 2021-03-03 17:15:00 159 mm[Hg] [facility] pressure Medicine Diastolic blood 2021-03-03 17:15:00 89 mm[Hg] [facility] of pressure Medicine Heart rate 2021-03-03 17:15:00 99 /min [facility] Body height 2021-03-03 17:15:00 162.6 cm [facility] Body weight 2021-03-03 17:15:00 83.915 kg [facility] BMI 2021-03-03 17:15:00 31.76 kg/m2 [facility] Systolic blood 2021-02-16 14:32:00 143 mm[Hg] [facility] pressure Medicine Diastolic blood 2021-02-16 14:32:00 85 mm[Hg] [facility] pressure Medicine Heart rate 2021-02-16 14:32:00 81 /min [facility] Respiratory rate 2021-02-16 14:32:00 16 /min [facility] Body height 2021-02-16 14:32:00 162.6 cm [facility] Body weight 2021-02-16 14:32:00 84.369 kg [facility] BMI 2021-02-16 14:32:00 31.93 [facility]2 [facility] Oxygen saturation in 2021-02-16 14:32:00 98 /min [facility] Arterial blood by [facility] Pulse oximetry Systolic blood 2021-02-16 14:32:00 143 mm[Hg] [facility] pressure Medicine Diastolic blood 2021-02-16 14:32:00 85 mm[Hg] [facility] Medicine Heart rate 2021-02-16 14:32:00 81 /min [facility] Respiratory rate 2021-02-16 14:32:00 16 /min [facility] Body height 2021-02-16 14:32:00 162.6 cm [facility] Body weight 2021-02-16 14:32:00 84.369 kg [facility] BMI 2021-02-16 14:32:00 31.93 kg/m2 [facility] Oxygen saturation in 2021-02-16 14:32:00 98 /min [facility] Arterial blood by [facility] Pulse oximetry Systolic blood 2021-01-25 16:39:00 145 mm[Hg] [facility] pressure Medicine Diastolic blood 2021-01-25 16:39:00 83 mm[Hg] [facility] Medicine Heart rate 2021-01-25 16:39:00 94 /min [facility] Body height 2021-01-25 16:39:00 162.6 cm [facility] Body weight 2021-01-25 16:39:00 83.915 kg [facility] BMI 2021-01-25 16:39:00 31.76 kg/m2 [facility] Systolic blood 2021-01-25 16:39:00 145 mm[Hg] [facility] pressure Medicine Diastolic blood 2021-01-25 16:39:00 83 mm[Hg] [facility] Medicine Heart rate 2021-01-25 16:39:00 94 /min [facility] Body height 2021-01-25 16:39:00 162.6 cm [facility] Body weight 2021-01-25 16:39:00 83.915 kg [facility] BMI 2021-01-25 16:39:00 31.76 kg/m2 [facility] HEIGHT 2021-01-04 12:09:00 165.1 cm WEIGHT 2021-01-04 12:09:00 81.647 kg HEIGHT 2021-01-04 12:09:00 165.1 cm WEIGHT 2021-01-04 12:09:00 81.647 kg Systolic blood 2020-12-02 20:56:00 147 mm[Hg] [facility] pressure Medicine Diastolic blood 2020-12-02 20:56:00 90 mm[Hg] [facility] pressure Medicine Heart rate 2020-12-02 20:56:00 102 /min [facility] Systolic blood 2020-12-02 20:56:00 147 mm[Hg] [facility] pressure Medicine Diastolic blood 2020-12-02 20:56:00 90 mm[Hg] [facility] pressure Medicine Heart rate 2020-12-02 20:56:00 102 /min [facility] Systolic blood 2020-10-12 19:58:00 137 mm[Hg] [facility] pressure Medicine Diastolic blood 2020-10-12 19:58:00 85 mm[Hg] [facility] pressure Medicine Heart rate 2020-10-12 19:58:00 93 /min [facility] Body height 2020-10-12 19:58:00 162.6 cm [facility] Body weight 2020-10-12 19:58:00 86.637 kg [facility] BMI 2020-10-12 19:58:00 32.79 kg/m2 [facility] Systolic blood 2020-10-12 19:58:00 137 mm[Hg] [facility] of pressure Medicine Diastolic blood 2020-10-12 19:58:00 85 mm[Hg] [facility] Medicine Heart rate 2020-10-12 19:58:00 93 /min [facility] Body height 2020-10-12 19:58:00 162.6 cm [facility] Body weight 2020-10-12 19:58:00 86.637 kg [facility] BMI 2020-10-12 19:58:00 32.79 kg/m2 [facility] Systolic blood 2020-08-06 19:10:00 133 mm[Hg] [facility] pressure Medicine Diastolic blood 2020-08-06 19:10:00 84 mm[Hg] [facility] pressure Medicine Heart rate 2020-08-06 19:10:00 85 /min [facility] Body height 2020-08-06 19:10:00 162.6 cm [facility] Body weight 2020-08-06 19:10:00 86.637 kg [facility] BMI 2020-08-06 19:10:00 32.79 kg/m2 [facility] Systolic blood 2020-08-06 19:10:00 133 mm[Hg] [facility] of pressure Medicine Diastolic blood 2020-08-06 19:10:00 84 mm[Hg] [facility] of pressure Medicine Heart rate 2020-08-06 19:10:00 85 /min [facility] Body height 2020-08-06 19:10:00 162.6 cm [facility] Body weight 2020-08-06 19:10:00 86.637 kg [facility] BMI 2020-08-06 19:10:00 32.79 kg/m2 [facility] Systolic blood 2020-04-23 16:34:00 147 mm[Hg] [facility] of pressure Medicine Diastolic blood 2020-04-23 16:34:00 81 mm[Hg] [facility] of pressure Medicine Heart rate 2020-04-23 16:34:00 87 /min [facility] Respiratory rate 2020-04-23 16:34:00 16 /min [facility] Body height 2020-04-23 16:34:00 162.6 cm [facility] Body weight 2020-04-23 16:34:00 85.73 kg [facility] BMI 2020-04-23 16:34:00 32.44 [facility] Oxygen saturation in 2020-04-23 16:34:00 98 /min [facility] Arterial blood by Medicine Pulse oximetry Systolic blood 2020-04-23 16:34:00 147 mm[Hg] [facility] Medicine Diastolic blood 2020-04-23 16:34:00 81 mm[Hg] [facility] Medicine Heart rate 2020-04-23 16:34:00 87 /min [facility] Respiratory rate 2020-04-23 16:34:00 16 /min [facility] Body height 2020-04-23 16:34:00 162.6 cm [facility] Body weight 2020-04-23 16:34:00 85.73 kg [facility] BMI 2020-04-23 16:34:00 32.44 kg/m2 [facility] Oxygen saturation in 2020-04-23 16:34:00 98 /min [facility] Arterial blood by [facility] Pulse oximetry Body weight 2020-01-22 14:44:00 83.915 kg [facility] BMI 2020-01-22 14:44:00 31.76 kg/m2 [facility] Systolic blood 2020-01-22 14:44:00 131 mm[Hg] [facility] of pressure Medicine Diastolic blood 2020-01-22 14:44:00 80 mm[Hg] [facility] of pressure Medicine Heart rate 2020-01-22 14:44:00 83 /min [facility] Body temperature 2020-01-22 14:44:00 36.61 Leah [facility] Body height 2020-01-22 14:44:00 162.6 cm [facility] Body weight 2020-01-22 14:44:00 83.915 kg [facility] BMI 2020-01-22 14:44:00 31.76 kg/m2 [facility] Systolic blood 2020-01-22 14:44:00 131 mm[Hg] [facility] of pressure Medicine Diastolic blood 2020-01-22 14:44:00 80 mm[Hg] [facility] of pressure Medicine Heart rate 2020-01-22 14:44:00 83 /min [facility] Body temperature 2020-01-22 14:44:00 36.61 Leah [facility] Body height 2020-01-22 14:44:00 162.6 cm [facility] [employer] Systolic blood 2019-08-16 17:59:00 138 mm[Hg] [facility] Diastolic blood 2019-08-16 17:59:00 80 mm[Hg] [facility] Heart rate 2019-08-16 17:59:00 78 /min [facility] [employer] Body height 2019-08-16 17:59:00 165.1 cm [facility] [employer] Body weight 2019-08-16 17:59:00 86.183 kg [facility] [employer] [facility] BMI 2019-08-16 17:59:00 31.62 kg/m2 [facility] [employer] Systolic blood 2019-08-16 17:59:00 138 mm[Hg] [facility] pressure Medicine Diastolic blood 2019-08-16 17:59:00 80 mm[Hg] [facility] pressure Medicine Heart rate 2019-08-16 17:59:00 78 /min [facility] Body height 2019-08-16 17:59:00 165.1 cm [facility] Body weight 2019-08-16 17:59:00 86.183 kg [facility] BMI 2019-08-16 17:59:00 31.62 kg/m2 [facility] Procedures Procedure Date / Time Performing Clinician Source Performed POCT URINALYSIS DIPSTICK 2021-08-18 00:00:00 Chuckie Simmons [facility] POCT URINALYSIS DIPSTICK 2021-06-30 00:00:00 Chuckie Simmons [facility] ELECTROCARDIOGRAM COMPLETE 2021-06-24 19:56:00 Mohan Monroy [facility] POCT URINALYSIS DIPSTICK 2021-04-14 00:00:00 Chuckie Simmons [facility] POCT URINALYSIS DIPSTICK 2021-03-03 00:00:00 Chuckie Simmons [facility] ELECTROCARDIOGRAM COMPLETE 2021-02-16 14:39:00 Mohan Monroy [facility] POCT URINALYSIS DIPSTICK 2020-12-02 00:00:00 Quinn Simmonsherme [facility] Plan of Care Planned Activity Planned Date Details Comments Source Future Scheduled 2021-09-05 Screening for malignant [facility] Test 08:36:55 neoplasm of colon of Medicin e (procedure) [code = 746709361] Future Scheduled 2021-09-05 COVID-19 Vaccine (1) [facility] Test 08:36:55 [code = COVID-19 of Medicine Vaccine (1)] Future Scheduled 2021-09-05 TETANUS SHOT (ADULT) [facility] Test 08:36:55 [code = TETANUS SHOT of Medi cine (ADULT)] Future Scheduled 2021-09-05 Hepatitis C screening [facility] Test 08:36:55 (procedure) [code = of Medic ine 042511818] Future Scheduled 2021-09-05 ZOSTER VACCINE (1 of 2) [facility] Test 08:36:55 [code = ZOSTER VACCINE of Me dicine (1 of 2)] Future Scheduled 2021-09-05 MEDICARE IPPE (WELCOME [facility] Test 08:36:55 TO MEDICARE) [code = of [employer] MEDICARE IPPE (WELCOME TO MEDICARE)] Future Scheduled 2021-09-05 Abdominal aortic [facility] Test 08:36:55 aneurysm screening of Medici ne (procedure) [code = 342640682] Future Scheduled 2021-09-05 FALL SCREEN [code = [employer] Test 08:36:55 FALL SCREEN] of Medicine Future Scheduled 2021-09-05 PNEUMOVAX >=65 (PPSV23) [facility] Test 08:36:55 [code = PNEUMOVAX >=65 of Me dicine (PPSV23)] Future Scheduled 2021-09-05 BMI FOLLOW UP PLAN [facility] Test 08:36:55 [code = BMI FOLLOW UP of Med icine PLAN] Future Scheduled 2021-08-31 Screening for malignant [facility] Test 11:55:05 neoplasm of colon of Medicin e (procedure) [code = 213098092] Future Scheduled 2021-08-31 COVID-19 Vaccine (1) [facility] Test 11:55:05 [code = COVID-19 of Medicine Vaccine (1)] Future Scheduled 2021-08-31 TETANUS SHOT (ADULT) [facility] Test 11:55:05 [code = TETANUS SHOT of Medi cine (ADULT)] Future Scheduled 2021-08-31 Hepatitis C screening [facility] Test 11:55:05 (procedure) [code = of Medic ine 509917532] Future Scheduled 2021-08-31 ZOSTER VACCINE (1 of 2) [facility] Test 11:55:05 [code = ZOSTER VACCINE of Me dicine (1 of 2)] Future Scheduled 2021-08-31 MEDICARE IPPE (WELCOME [facility] Test 11:55:05 TO MEDICARE) [code = of [facility] [employer] MEDICARE IPPE (WELCOME TO MEDICARE)] Future Scheduled 2021-08-31 Abdominal aortic [facility] [employer] Test 11:55:05 aneurysm screening of Medici ne (procedure) [code = 460292060] Future Scheduled 2021-08-31 FALL SCREEN [code = [employer] Test 11:55:05 FALL SCREEN] of Medicine Future Scheduled 2021-08-31 PNEUMOVAX >=65 (PPSV23) [facility] [employer] Test 11:55:05 [code = PNEUMOVAX >=65 of Me dicine (PPSV23)] Future Scheduled 2021-08-31 BMI FOLLOW UP PLAN [facility] Test 11:55:05 [code = BMI FOLLOW UP of Med icine PLAN] Diagnostic Test 2021-08-31 MYOCARD PERFUSION - Expected: [facility] Pending 00:00:00 EXERCISE [code = 49590] 08/31/2021, of M edicine Expires: 03/01/2023 Future Scheduled 2021-08-30 US SCROTUM AND [facility] Test 11:22:02 TESTICLES [code = of Medicin e 27510-0] Future Scheduled 2021-08-18 US SCROTUM AND 1 Occurrences [facility] Test 15:55:28 TESTICLES [code = starting of Medicin e 64149-9] 08/18/2021 until 02/16/2022 Future Scheduled 2021-06-30 Screening for malignant [facility] Test 09:30:09 neoplasm of colon of Medicin e (procedure) [code = 936033839] Future Scheduled 2021-06-30 COVID-19 Vaccine (1) [facility] Test 09:30:09 [code = COVID-19 of Medicine Vaccine (1)] Future Scheduled 2021-06-30 TETANUS SHOT (ADULT) [facility] Test 09:30:09 [code = TETANUS SHOT of Medi cine (ADULT)] Future Scheduled 2021-06-30 Hepatitis C screening [facility] Test 09:30:09 (procedure) [code = of Medic ine 521025263] Future Scheduled 2021-06-30 Human immunodeficiency [facility] Test 09:30:09 virus screening of Medicine (procedure) [code = 091492874] Future Scheduled 2021-06-30 ZOSTER VACCINE (1 of 2) [facility] Test 09:30:09 [code = ZOSTER VACCINE of Me dicine (1 of 2)] Future Scheduled 2021-06-30 FLU VACCINE > 6 MONTHS [facility] Test 09:30:09 [code = FLU VACCINE > 6 of M edicine MONTHS] Future Scheduled 2021-06-30 BMI FOLLOW UP PLAN [employer] Test 09:30:09 [code = BMI FOLLOW UP of Med icine PLAN] Future Scheduled 2021-06-25 Screening for malignant [employer] Test 17:28:09 neoplasm of colon of Medicin e (procedure) [code = 225465802] Future Scheduled 2021-06-25 COVID-19 Vaccine (1) [employer] [facility] Test 17:28:09 [code = COVID-19 of Medicine Vaccine (1)] Future Scheduled 2021-06-25 TETANUS SHOT (ADULT) [employer] Test 17:28:09 [code = TETANUS SHOT of Medi cine (ADULT)] Future Scheduled 2021-06-25 Hepatitis C screening [employer] Test 17:28:09 (procedure) [code = of Medic ine 245944811] Future Scheduled 2021-06-25 Human immunodeficiency [facility] Test 17:28:09 virus screening of Medicine (procedure) [code = 357515495] Future Scheduled 2021-06-25 ZOSTER VACCINE (1 of 2) [facility] Test 17:28:09 [code = ZOSTER VACCINE of Wy dicine (1 of 2)] Future Scheduled 2021-06-25 FLU VACCINE > 6 MONTHS [employer] Test 17:28:09 [code = FLU VACCINE > 6 of M edicine MONTHS] Future Scheduled 2021-06-25 BMI FOLLOW UP PLAN [employer] Test 17:28:09 [code = BMI FOLLOW UP of Med icine PLAN] Future Scheduled 2021-06-24 ELECTROCARDIOGRAM [facility] [employer] Test 14:56:41 COMPLETE [code = 09732] of M edicine Future Scheduled 2021-06-01 Screening for malignant [facility] Test 17:46:52 neoplasm of colon of Medicin e (procedure) [code = 537788680] Future Scheduled 2021-06-01 COVID-19 Vaccine (1) [employer] Test 17:46:52 [code = COVID-19 of Medicine Vaccine (1)] Future Scheduled 2021-06-01 TETANUS SHOT (ADULT) [employer] Test 17:46:52 [code = TETANUS SHOT of Medi cine (ADULT)] Future Scheduled 2021-06-01 Hepatitis C screening [employer] Test 17:46:52 (procedure) [code = of Medic ine 414503835] Future Scheduled 2021-06-01 Human immunodeficiency [facility] Test 17:46:52 virus screening of Medicine (procedure) [code = 565994527] Future Scheduled 2021-06-01 ZOSTER VACCINE (1 of 2) [facility] Test 17:46:52 [code = ZOSTER VACCINE of Me dicine (1 of 2)] Future Scheduled 2021-06-01 FLU VACCINE > 6 MONTHS [facility] Test 17:46:52 [code = FLU VACCINE > 6 of M edicine MONTHS] Future Scheduled 2021-06-01 BMI FOLLOW UP PLAN [facility] Test 17:46:52 [code = BMI FOLLOW UP of Med icine PLAN] Future Scheduled 2021-05-05 Screening for malignant [facility] Test 18:10:22 neoplasm of colon of Medicin e (procedure) [code = 444422884] Future Scheduled 2021-05-05 COVID-19 Vaccine (1) [facility] Test 18:10:22 [code = COVID-19 of Medicine Vaccine (1)] Future Scheduled 2021-05-05 TETANUS SHOT (ADULT) [facility] Test 18:10:22 [code = TETANUS SHOT of Medi cine (ADULT)] Future Scheduled 2021-05-05 Hepatitis C screening [facility] Test 18:10:22 (procedure) [code = of Medic ine 237725613] Future Scheduled 2021-05-05 Human immunodeficiency [facility] Test 18:10:22 virus screening of Medicine (procedure) [code = 811344234] Future Scheduled 2021-05-05 ZOSTER VACCINE (1 of 2) [facility] Test 18:10:22 [code = ZOSTER VACCINE of Me dicine (1 of 2)] Future Scheduled 2021-05-05 FLU VACCINE > 6 MONTHS [facility] Test 18:10:22 [code = FLU VACCINE > 6 of M edicine MONTHS] Future Scheduled 2021-05-05 BMI FOLLOW UP PLAN [facility] Test 18:10:22 [code = BMI FOLLOW UP of Med icine PLAN] Future Scheduled 2021-04-08 CULTURE, Ordered: [facility] Test 13:52:19 URINE/SENSITIVITY ON 04/08/2021 of Medi cine ALL [code = 90107-5] Future Scheduled 2021-04-08 US SCROTUM AND 1 Occurrences [facility] Test 13:52:19 TESTICLES [code = starting of Medicin e 19420-0] 04/08/2021 until 10/08/2021 Future Scheduled 2021-04-08 Screening for malignant [employer] Test 13:41:00 neoplasm of colon of Medicin e (procedure) [code = 609320156] Future Scheduled 2021-04-08 COVID-19 Vaccine (1) [employer] Test 13:41:00 [code = COVID-19 of Medicine Vaccine (1)] Future Scheduled 2021-04-08 TETANUS SHOT (ADULT) [employer] Test 13:41:00 [code = TETANUS SHOT of Medi cine (ADULT)] Future Scheduled 2021-04-08 Hepatitis C screening [employer] Test 13:41:00 (procedure) [code = of Medic ine 956181200] Future Scheduled 2021-04-08 Human immunodeficiency [employer] Test 13:41:00 virus screening of Medicine (procedure) [code = 260134997] Future Scheduled 2021-04-08 ZOSTER VACCINE (1 of 2) [facility] [employer] Test 13:41:00 [code = ZOSTER VACCINE of Wy dicine (1 of 2)] Future Scheduled 2021-04-08 FLU VACCINE > 6 MONTHS [employer] Test 13:41:00 [code = FLU VACCINE > 6 of M edicine MONTHS] Future Scheduled 2021-04-08 BMI FOLLOW UP PLAN [employer] Test 13:41:00 [code = BMI FOLLOW UP of Med icine PLAN] Diagnostic Test 2021-02-16 ECHO, COMPLETE [code = Expected: [employer] Pending 00:00:00 95312] 02/16/2021, of Medicine Expires: 08/18/2021 Future Scheduled COLON CANCER SCREENING: [facility] Test COLONOSCOPY [code = of Medic ine COLON CANCER SCREENING: COLONOSCOPY] Future Scheduled TETANUS SHOT (ADULT) [employer] Test [code = TETANUS SHOT of Medi cine (ADULT)] Future Scheduled BMI FOLLOW UP PLAN [employer] Test [code = BMI FOLLOW UP of Med icine PLAN] Future Scheduled HEPATITIS C SCREENING [employer] Test [code = HEPATITIS C of Medic ine SCREENING] Future Scheduled HIV SCREENING [code = [employer] Test HIV SCREENING] of Medicine Future Scheduled COLON CANCER SCREENING: [facility] [employer] Test COLONOSCOPY [code = of Medic ine COLON CANCER SCREENING: COLONOSCOPY] Future Scheduled TETANUS SHOT (ADULT) [employer] Test [code = TETANUS SHOT of Medi cine (ADULT)] Future Scheduled BMI FOLLOW UP PLAN [employer] Test [code = BMI FOLLOW UP of Med icine PLAN] Future Scheduled HEPATITIS C SCREENING [employer] Test [code = HEPATITIS C of Medic ine SCREENING] Future Scheduled HIV SCREENING [code = [employer] Test HIV SCREENING] of Medicine Future Scheduled FLU VACCINE > 6 MONTHS [employer] Test [code = FLU VACCINE > 6 of M edicine MONTHS] Future Scheduled COLON CANCER SCREENING: [facility] [employer] Test COLONOSCOPY [code = of Medic ine COLON CANCER SCREENING: COLONOSCOPY] Future Scheduled TETANUS SHOT (ADULT) [employer] Test [code = TETANUS SHOT of Medi cine (ADULT)] Future Scheduled BMI FOLLOW UP PLAN [employer] Test [code = BMI FOLLOW UP of Med icine PLAN] Future Scheduled HEPATITIS C SCREENING [employer] Test [code = HEPATITIS C of Medic ine SCREENING] Future Scheduled HIV SCREENING [code = [employer] Test HIV SCREENING] of Medicine Future Scheduled ZOSTER VACCINE (1 of 2) [facility] Test [code = ZOSTER VACCINE of Me dicine (1 of 2)] Future Scheduled COLON CANCER SCREENING: [facility] Test COLONOSCOPY [code = of Medic ine COLON CANCER SCREENING: COLONOSCOPY] Future Scheduled TETANUS SHOT (ADULT) [employer] Test [code = TETANUS SHOT of Medi cine (ADULT)] Future Scheduled BMI FOLLOW UP PLAN [employer] Test [code = BMI FOLLOW UP of Med icine PLAN] Future Scheduled HEPATITIS C SCREENING [employer] Test [code = HEPATITIS C of Medic ine SCREENING] Future Scheduled HIV SCREENING [code = [employer] Test HIV SCREENING] of Medicine Future Scheduled ZOSTER VACCINE (1 of 2) [facility] Test [code = ZOSTER VACCINE of Me dicine (1 of 2)] Future Scheduled COLON CANCER SCREENING: [facility] Test COLONOSCOPY [code = of Medic ine COLON CANCER SCREENING: COLONOSCOPY] Future Scheduled COVID-19 Vaccine [facility] Test Evaluation [code = of Medici ne COVID-19 Vaccine Evaluation] Future Scheduled TETANUS SHOT (ADULT) [employer] Test [code = TETANUS SHOT of Medi cine (ADULT)] Future Scheduled BMI FOLLOW UP PLAN [employer] Test [code = BMI FOLLOW UP of Med icine PLAN] Future Scheduled HEPATITIS C SCREENING [employer] Test [code = HEPATITIS C of Medic ine SCREENING] Future Scheduled HIV SCREENING [code = [employer] [facility] HIV SCREENING] of Medicine Future Scheduled ZOSTER VACCINE (1 of 2) [employer] Test [code = ZOSTER VACCINE of Me dicine (1 of 2)] Future Scheduled COLON CANCER SCREENING: [facility] Test COLONOSCOPY [code = of Medic ine COLON CANCER SCREENING: COLONOSCOPY] Future Scheduled COVID-19 Vaccine [employer] Test Evaluation [code = of Medici ne COVID-19 Vaccine Evaluation] Future Scheduled TETANUS SHOT (ADULT) [employer] Test [code = TETANUS SHOT of Medi cine (ADULT)] Future Scheduled HEPATITIS C SCREENING [employer] Test [code = HEPATITIS C of Medic ine SCREENING] Future Scheduled HIV SCREENING [code = [employer] [facility] HIV SCREENING] of Medicine Future Scheduled ZOSTER VACCINE (1 of 2) [facility] Test [code = ZOSTER VACCINE of Me dicine (1 of 2)] Future Scheduled BMI FOLLOW UP PLAN [employer] Test [code = BMI FOLLOW UP of Med icine PLAN] Future Scheduled Screening for malignant [facility] Test neoplasm of colon of Medicin e (procedure) [code = 590776256] Future Scheduled TETANUS SHOT (ADULT) [employer] Test [code = TETANUS SHOT of Medi cine (ADULT)] Future Scheduled COVID-19 Vaccine (1) [employer] Test [code = COVID-19 of Medicine Vaccine (1)] Future Scheduled Hepatitis C screening [employer] Test (procedure) [code = of Medic ine 426150104] Future Scheduled Human immunodeficiency [employer] Test virus screening of Medicine (procedure) [code = 168481382] Future Scheduled ZOSTER VACCINE (1 of 2) [facility] Test [code = ZOSTER VACCINE of Me dicine (1 of 2)] Future Scheduled BMI FOLLOW UP PLAN [employer] Test [code = BMI FOLLOW UP of Med icine PLAN] Future Scheduled ELECTROCARDIOGRAM [facility] Test COMPLETE [code = 44852] of M edicine Future Scheduled Screening for malignant [employer] Test neoplasm of colon of Medicin e (procedure) [code = 617725637] Future Scheduled TETANUS SHOT (ADULT) [employer] Test [code = TETANUS SHOT of Medi cine (ADULT)] Future Scheduled COVID-19 Vaccine (1) [employer] Test [code = COVID-19 of Medicine Vaccine (1)] Future Scheduled Hepatitis C screening [employer] Test (procedure) [code = of Medic ine 781585328] Future Scheduled Human immunodeficiency [employer] Test virus screening of Medicine (procedure) [code = 986885272] Future Scheduled ZOSTER VACCINE (1 of 2) [facility] Test [code = ZOSTER VACCINE of Me dicine (1 of 2)] Future Scheduled FLU VACCINE > 6 MONTHS [employer] Test [code = FLU VACCINE > 6 of M edicine MONTHS] Future Scheduled BMI FOLLOW UP PLAN [employer] Test [code = BMI FOLLOW UP of Med icine PLAN] Future Scheduled Screening for malignant [facility] Test neoplasm of colon of Medicin e (procedure) [code = 260402440] Future Scheduled TETANUS SHOT (ADULT) [employer] Test [code = TETANUS SHOT of Medi cine (ADULT)] Future Scheduled COVID-19 Vaccine (1) [employer] Test [code = COVID-19 of Medicine Vaccine (1)] Future Scheduled Hepatitis C screening [employer] Test (procedure) [code = of Medic ine 731862355] Future Scheduled Human immunodeficiency [facility] Test virus screening of Medicine (procedure) [code = 189170530] Future Scheduled ZOSTER VACCINE (1 of 2) [facility] Test [code = ZOSTER VACCINE of Me dicine (1 of 2)] Future Scheduled FLU VACCINE > 6 MONTHS [employer] Test [code = FLU VACCINE > 6 of M edicine MONTHS] Future Scheduled BMI FOLLOW UP PLAN [employer] Test [code = BMI FOLLOW UP of Med icine PLAN] Future Scheduled TETANUS SHOT (ADULT) [employer] Test [code = TETANUS SHOT of Medi cine (ADULT)] Future Scheduled BMI FOLLOW UP PLAN [employer] Test [code = BMI FOLLOW UP of Med icine PLAN] Future Scheduled HEPATITIS C SCREENING [employer] Test [code = HEPATITIS C of Medic ine SCREENING] Future Scheduled HIV SCREENING [code = [employer] [facility] HIV SCREENING] of Medicine Future Scheduled FLU VACCINE > 6 MONTHS [employer] Test [code = FLU VACCINE > 6 of M edicine MONTHS] Future Scheduled COLON CANCER SCREENING: [facility] Test COLONOSCOPY [code = of Medic ine COLON CANCER SCREENING: COLONOSCOPY] Future Scheduled CTA CORONARY W/CALCIUM 1 Occurrences [facility] Test SCORING W/CONTRAST starting of Medici ne [code = 36656] 02/16/2021 until 02/16/2022 Future Scheduled US 1 Occurrences [facility] Test AORTA,IVC,ILIACS,GRAFT starting of Me dicine COMPLETE DUPLEX [code = 01/25/2021 until 28967-8] 01/25/2022 Future Scheduled US CAROTID [code = 1 Occurrences [employer] [facility] 39183] starting of Medicine 01/25/2021 until 01/25/2022 Future Scheduled US ARTERIAL LEG LEFT 1 Occurrences [employer] Test [code = 85370] starting of Medicine 12/07/2020 until 07/07/2021 Future Scheduled CTA ABD AORTA AND 1 Occurrences [employer] Test ILIOFEMORAL RUNOFF starting of Medici ne [code = 08168] 12/07/2020 until 07/07/2021 Future Scheduled TREADMILL, NO IMAGING 1 Occurrences [employer] Test [code = 20626] starting of Medicine 04/23/2020 until 04/23/2021 Future Scheduled NOVEL 2019 1 Occurrences [facility] Test CORONAVIRUS(COVID-19),N starting of M edicine AA [code = U0004] 04/23/2020 until 10/23/2020 Encounters Start End Encounter Admission Attending Care Care Encounter Source Date/Time Date/Time Type Type Clinicians Facility Department ID 2021-08-15 Inpatient YUMIKO, [facility] Surgery [id number] [facility] 03:03:46 COURTNEY 2021-08-14 Outpatient ALAM, [facility] Surgery [id number] [facility] 23:18:50 LADNONA 2021-08-14 Outpatient DE LA CRUZ, [facility] Surgery [id number] SLE 04:42:31 MARIUSZ 2021-09-16 2021-09-16 ambulatory [facility] [id number] [facility] 00[facility]00:00 00[facility]00:00 [facility] 2021-09-10 2021-09-10 [facility] [id number] [facility] 12:59:41 23:59:00 ROSELINE 2021-08-31 2021-08-31 Office JOSIANE MONROY [id number] [facility] 10:18:03 12:06:43 Visit MOHAN AMBULATOR 350.1.13.21 College Y 0.2.7.2.686 of [id number] Medi aleksandra 375 e 2021-08-30 2021-08-30 Outpatient [facility] [id number] [facility] 11:22:02 11:22:02 Kathy hu of Medicin e 2021 2021 Outpatient [facility] [id number] [facility] 2021-08-18 2021-08-18 Office JOSIANE SIMMONS [id number] [place] [address] 13:58:10 16:01:54 Visit CHUCKIE AMBULATOR 350.1.13.21 College Y 0.2.7.2.686 of [id number] [facility] aleksandra 300 e 2021-08-18 2021-08-18 Outpatient [facility] [id number] [facility] 2021-08-12 2021-08-12 Outpatient [facility] [id number] [facility] 2021-07-27 2021-07-27 Outpatient [facility] [id number] [address] [place] [address] 09:13:01 09:53:29 Daniig e of Medicin e 2021-07-07 2021-07-07 Outpatient [facility], SLE [facility] [id number] [facility] 00:00:00 00:00:00 [facility] 2021-07-05 2021-07-05 Outpatient [facility] [id number] [facility] 2021-07-05 2021-07-05 Outpatient [facility] [id number] [facility] 2021-07-05 2021-07-05 Outpatient [facility] [id number] [facility] 2021-06-30 2021-06-30 Office JOSIANE Simmons [id number] [place] [address] 08:49:23 09:04:23 Visit Chuckie AMBULATOR 350.1.13.21 College Y 0.2.7.2.686 of [id number] [facility] aleksandra 300 e 2021-06-24 2021-06-24 Office JOSIANE Monroy [id number] [facility] 14:34:41 16:00:10 Visit Mohan AMBULATOR 350.1.13.21 College Y 0.2.7.2.686 of [id number] Medi aleksandra 375 e 2021-06-15 2021-06-15 Outpatient [facility] [id number] [facility] 12:51:35 12:51:35 Colleg e of Medicin e 2021-06-14 2021-06-14 Outpatient DE LA CRUZ, [facility] [id number] [facility] 07:55:20 13:28:21 MARIUSZ Colleg e of Medicin e 2021-06-14 2021-06-14 Outpatient [facility] [id number] [facility] 07:54:56 10:48:49 Colleg e of Medicin e 2021-06-02 2021-06-02 Outpatient NORA PARRISH, [facility] [id number] [facility] 00:00:00 00:00:00 [facility] 2021-06-01 2021-06-01 Office JOSIANE Monroy [id number] [facility] 14:20:18 15:45:02 Visit Mohan AMBULATOR 350.1.13.21 College Y 0.2.7.2.686 of [id number] [facility] aleksandra 375 e 2021-05-15 2021-05-15 Outpatient [facility] [id number] [facility] [facility] 23:59:00 [facility] 2021-05-13 2021-05-13 Outpatient [facility] [id number] [facility] 07:37:00 23:59:00 [facility] 2021-05-12 2021-05-12 Outpatient [facility] [id number] [facility] 00:00:00 00:00:00 2021-05-11 2021-05-11 Outpatient [facility] [id number] [facility] 00:00:00 00:00:00 2021-05-04 2021-05-04 Outpatient [facility] [id number] [facility] 00:00:00 23:59:00 [facility] 2021-04-29 2021-04-29 Outpatient [facility] [id number] [facility] 00:00:00 23:59:00 [facility] [employer] 2021-04-29 2021-04-29 Outpatient [facility] [id number] [facility] 00:00:00 00:00:00 2021-04-27 2021-04-27 [facility] [id number] [facility] 2021-04-08 2021-04-20 Outpatient JOSIANE RUIZ [facility] [id number] [facility] 11:27:25 19:51:25 BASIL [facility] [employer] 2021-04-20 2021-04-20 Out[facility] [id number] [facility] 00:00:00 00:00:00 [facility] 2021-04-14 2021-04-16 Office JOSIANE Simmons 1.2.840.114 [id number] 14:55:42 16:49:34 Visit Chuckie AMBULATOR 350.1.13.21 Y 0.2.7.2.686 [id number] 300 2021-04-14 2021-04-16 Office JOSIANE Simmons 1.2.840.[id number] [place] [address] 14:55:42 16:49:34 Visit Chuckie AMBULATOR 350.1.13.21 College Y 0.2.7.2.686 of [id number] Medi aleksandra 300 e 2021-04-08 2021-04-08 Office JOSIANE Ruiz 1.2.840.114 [id number] 13:31:23 14:01:23 Visit Basil AMBULATOR 350.1.13.21 Y 0.2.7.2.686 [id number] 300 2021-04-08 2021-04-08 Office JOSIANE Ruiz 1.2.840.114 [id number] [facility] 13:31:23 14:01:23 Visit Basil AMBULATOR 350.1.13.21 College Y 0.2.7.2.686 of [id number] Medi aleksandra 300 e 2021-04-08 2021-04-08 Outpatient [facility] [id number] [facility] 00:00:00 00:00:00 [facility] [employer] [facility] [employer] 2021-03-22 2021-03-22 Outpatient KAMI PALACIOS [facility] [id number] [facility] 00:00:00 00:00:00 MOHAN 2021-03-16 2021-03-16 Outpatient KAMI PALACIOS [facility] [id number] [facility] 00:00:00 00:00:00 MOHAN 2021-03-05 2021-03-05 Outpatient [facility] [id number] [facility] 08:06:07 13:36:08 [facility] [employer] [facility] [employer] 2021-03-03 2021-03-03 Office JOSIANE Simmons 1.2.840.114 [id number] 12:05:37 12:20:37 Visit Chuckie AMBULATOR 350.1.13.21 Y 0.2.7.2.686 [id number] 300 2021-03-03 2021-03-03 Office JOSIANE Simmons 1.2.840.114 [id number] [facility] 12:05:37 12:20:37 Visit Chuckie AMBULATOR 350.1.13.21 College Y 0.2.7.2.686 of [id number] Medi aleksandra 300 e 2021-02-18 2021-02-18 Outpatient [facility] [id number] [facility] 00:00:00 00:00:00 [facility] ent Clinics 2021-02-16 2021-02-16 Office JOSIANE Monroy 1.2.840.114 [id number] 09:21:06 10:13:12 Visit Mohan AMBULATOR 350.1.13.21 Y 0.2.7.2.686 [id number] 2021-02-16 2021-02-16 Office JOSIANE Monroy 1.2.840.114 [id number] [facility] 09:21:06 10:13:12 Visit Mohan AMBULATOR 350.1.13.21 College Y 0.2.7.2.686 of [id number] Medi aleksandra 375 e 2021-01-25 2021-01-25 Office JOSIANE De La Cruz 1.2.840.114 [id number] 11:06:09 12:30:03 Visit Mariusz AMBULATOR 350.1.13.21 Gonzalo Y 0.2.7.2.686 [id number] 2021-01-25 2021-01-25 Office JOSIANE De La Cruz 1.2.840.114 [id number] [facility] 11:06:09 12:30:03 Visit Mariusz AMBULATOR 350.1.13.21 College Gonzalo Y 0.2.7.2.686 of [id number] [facility] 825 e 2021-01-22 2021-01-22 Outpatient BCM BCM [id number] [facility] 09:09:43 17:09:11 David 2021-01-04 2021-01-04 Outpatient [facility] [id number] [facility] 00:00:00 00:00:00 2020-12-07 2020-12-07 Office JOSIANE De La Cruz 1.2.840.114 [id number] [facility] 09:22:17 15:25:48 Visit Mariusz AMBULATOR 350.1.13.21 Gonzalo Y 0.2.7.2.686 [id number] [facility] 2020-12-07 2020-12-07 Office JOSIANE De La Cruz 1.2.840.114 [id number] [facility] 09:22:17 15:25:48 Visit Mariusz AMBULATOR 350.1.13.21 College Gonzalo Y 0.2.7.2.686 of [id number] [facility] 825 e 2020-12-02 2020-12-02 Office JOSIANE Simmons 1.2.840.114 [id number] 14:28:34 14:43:34 Visit Chuckie AMBULATOR 350.1.13.21 Y 0.2.7.2.686 [id number] 300 2020-12-02 2020-12-02 Office JOSIANE Simmons 1.2.840.114 [id number] [facility] 14:28:34 14:43:34 Visit Chuckie AMBULATOR 350.1.13.21 College Y 0.2.7.2.686 of [id number] [facility] aleksandra 300 e 2020-11-25 2020-11-25 [facility] [id number] 2020-11-16 2020-11-16 [facility] [id number] [facility] 2020-10-12 2020-10-12 Office Christiano, BCM 1.2.840.114 [id number] 13:52:12 14:22:12 Visit Khai AMBULATOR 350.1.13.21 Y 0.2.7.2.686 [id number] 800 2020-10-12 2020-10-12 Office Christiano, BCM 1.2.840.114 [id number] [facility] 13:52:12 14:22:12 Visit Khai AMBULATOR 350.1.13.21 College Y 0.2.7.2.686 of [id number] [facility] aleksandra 800 e 2020-09-08 2020-09-08 Outpatient [facility] [id number] 07:57:00 07:57:[facility] 2020-08-06 2020-08-06 Office Christiano, BC 1.2.840.114 [id number] 14:02:58 14:46:32 Visit Khai AMBULATOR 350.1.13.21 Y 0.2.7.2.686 [id number] 800 2020-08-06 2020-08-06 Office Christiano, BC 1.2.840.[id number] [place] [address] 14:02:58 14:46:32 Visit Khai AMBULATOR 350.1.13.21 College Y 0.2.7.2.686 of [id number] [facility] aleksandra 800 e 2020-07-28 2020-07-28 Outpatient [facility] [id number] [facility] 2020-07-16 2020-07-16 [facility] [id number] 16:13:00 16:13:00 [facility] 2020-07-14 2020-07-14 Outpatient Tila Adornot [id number] 09:30:00 09:30:00 [facility] Clinics 2020-06-01 2020-06-01 Outpatient Tila Adornot [id number] 09:00:00 09:00:00 [facility] 2020-04-23 2020-04-23 Office JOSIANE Monroy 1.2.840.114 [id number] 11:27:32 11:47:32 Visit Mohan AMBULATOR 350.1.13.21 Y 0.2.7.2.686 [id number] [facility] 2020-04-23 2020-04-23 Office JOSIANE Monroy 1.2.840.[id number] [place] [address] 11:27:32 11:47:32 Visit Mohan AMBULATOR 350.1.13.21 College Y 0.2.7.2.686 of [id number] [facility] 375 e 2020-01-22 2020-01-22 Office JOSIANE Stiener 1.2.840.114 [id number] 09:35:07 10:05:07 Visit Kalen AMBULATOR 350.1.13.21 Young Y 0.2.7.2.686 [id number] 800 2020-01-22 2020-01-22 Office JOSIANE Steiner 1.2.840.[id number] [place] [address] 09:35:07 10:05:07 Visit Kalen AMBULATOR 350.1.13.21 College Young Y 0.2.7.2.686 of [id number] [facility] 800 e 2020-01-22 2020-01-22 Outpatient Tila Adornot [id number] 08:07:00 08:07:00 [facility] Clinics 2020-01-08 2020-01-08 Outpatient Tila Adornot [id number] 12:23:00 12:23:00 [facility] [place] ent Clinics 2019-12-23 2019-12-23 Outpatient Brazaurora Adornot [id number] 08:00:00 08:00:00 [facility] [place] ent Clinics 2019-10-10 2019-10-10 Outpatient Brazaurora Adornot [id number] 09:37:00 09:37:00 [facility] [place] ent [facility] 2019-10-09 2019-10-09 Outpatient Brazaurora Adornot [id number] 15:29:00 15:29:00 [facility] Clinics 2019-09-09 2019-09-09 Outpatient Brazaurora Adornot [id number] 16:12:00 16:12:00 [facility] [place] ent [facility] 2019-09-02 2019-09-02 Outpatient Brazaurora Adornot [id number] 12:24:00 12:24:00 t [facility] 2019-08-22 2019-08-22 Outpatient Tila Tadeo [id number] 09:00:00 09:00:00 [facility] [place] ent [facility] 2019-08-16 2019-08-16 Office JOSIANE Tuttle 1.2.840.114 [id number] 12:53:30 13:30:16 Visit Ruth AMBULATOR 350.1.13.21 Mandeep Mendez 0.2.7.2.686 [id number] 800 2019-08-16 2019-08-16 Office JOSIANE Tuttle 1.2.840.[id number] [place] [address] 12:53:30 13:30:16 Visit Ruth AMBULATOR 350.1.13.21 [facility] 0.2.7.2.686 [id number] [facility] 800 e 2019-07-25 2019-07-25 [facility] [id number] 10:00:00 10:00:00 t [facility] 2019-07-21 2019-07-21 [facility] [id number] 20:21:00 20:21:00 t Bone [facility] Results Test Description Test Time Test Comments Results Result [facility] e Comments CT, CTA AAA, W/ 2021-09-16 DARRIUS.EXT.RUNOFF 17:50:00 [facility] : 1955 Sex: M Ad dendum BeginsREPORT STATUS:A I have reviewed the CT images for this study and I concur with the nonvascular imaging findings as dictated. Signed: Irvin Russo MDReport Verified Date/Time: 09/16/2021 17:50:50 Reading Location: [facility] Diagnostic Imaging Reading Room - [facility] 1.310.12Addendum EndsFINAL REPORT CT angiography of the abdominal aorta and runoff, 10-Sep-21 INDICATION: This is a 66 year old male with diagnosis of arterial embolism of the lower extremity presents for assessment. TECHNIQUE: Spiral acquisition before and during intravenous contrast administration using a Siemens multidetector CT scanner. Images were obtained before and during the dynamic passage of intravenous contrast material. Multi-planar 3-D volume-rendering reconstruction was performed using an independent workstation interactively by the interpreting physician as well as the 3-D specialist for optimal visualisation of the abdominal aorta, pelvic arteries, and its peripheral branches. Please refer to the contrast sheet scanned in the EPIC system for the amount and route of contrast given. This exam was performed according to our departmental dose-optimisation programme, which includes automated exposure control, adjustment of the mA and/or kV according to patient size and/or use of iterative reconstruction technique. Dose modulation, iterative reconstruction, and/or weight based adjustment of the mA/kV was utilized to reduce the radiation dose to as low as reasonably achievable. FINDINGS: VASCULAR: Calcification is identified in the distal RCA. The proximal abdominal aorta is unremarkable with minimal calcification identified. The infrarenal abdominal aorta, mild to moderate calcification identified, especially in the distal infrarenal abdominal aorta. Inferior to the takeoff of the CESAR, the minimum luminal diameter is still 11.1 x 8.7 mm, at image 127. There is no evidence of acute aortic pathology, specifically, there is no dissection, intramural hematoma, or contained rupture. Quantitative dimensions of the abdominal aorta are as follows: 2.0 cm at the mesenteric segment; 1.6 cm at the renal segment; and 1.5 cm at the aortic bifurcation. At the takeoff of the coeliac axis, as indication is seen, with probable moderate lesion present; no critical lesion is seen at this level. Similarly, in the proximal SMA, diffuse calcification is seen for length of approximately 1 cm, again with at least moderate lesion present. In the presence of calcification, hemodynamic significant is difficult to comment upon. Thereafter remainder of the coeliac axis and SMA are widely patent they are well enhanced by contrast. The CESAR is widely patent. Two right renal arteries are seen that are widely patent, with minimal nonobstructive calcification seen in the right main renal artery. Nonobstructive calcification is seen in the takeoff the left renal artery with early branching identified. Single left and two right renal veins are seen draining into the IVC. Above the aortic bifurcation, vascular stents are seen, extending into the left and the right common iliac arteries, in the setting of substantial calcification in the menominee vasculature. The 2 stents are widely patent with no in-stent stenosis identified bilaterally. Thereafter, the [place]inee distal left and right external iliac arteries are patent, with calcification present. In the left, the left external iliac artery, the left common femoral artery are widely patent with minimal nonobstructive atherosclerosis seen in the left common femoral level. The left SFA is widely patent. The left profunda system is widely patent. The left popliteal artery is widely patent, with minimal nonobstructive calcification identified. In the left lower extremity, the left tibioperoneal trunk is widely patent. The left anterior tibial artery is widely patent and the dorsalis pedis artery is well seen. The left peroneal artery is patent. The left posterior tibial artery is widely patent and the plantar arch is seen distally. In the right, the right external iliac artery and the right common femoral artery are widely patent with minimal nonobstructive calcification seen in the distal right common femoral artery. The right SFA is widely patent. The right profunda system is widely patent. The right popliteal artery is widely patent with minimal eccentric nonobstructive calcification identified proximally. The right lower extremity, better seen in the second dynamic data set, nonobstructive calcification is seen in the right tibioperoneal trunk. The right peroneal artery is patent and become a small calibre vessel distally. The right anterior tibial artery is patent with focal calcification seen proximally. Remainder of the artery is well enhanced by contrast and the dorsalis pedis artery is well seen. The right posterior tibial artery has focal calcification seen proximally and remainder of the artery is well enhanced by contrast and the plantar arch is seen distally. NON-VASCULAR: Lung bases unremarkable. Dependent changes are seen. In the abdomen, the liver and spleen appears unremarkable. The liver edge is smooth. No abnormal enhancing structure is identified. The gallbladder appears unremarkable. The adrenal glands are not enlarged. The pancreas have no gross abnormality present. No acute renal pathology seen and no hydronephrosis or perirenal fluid collection is identified. Small simple appearing renal cyst is identified in medial aspect of the right kidney, with no enhancement after contrast administration. Bowel is not well assessed by CT angiography as enteric contrast is not given. No obvious bowel dilation is identified. The appendix appears unremarkable. No free air or free fluid is seen abdomen pelvis and no significant retroperitoneal adenopathy is identified. The prostate gland is mildly prominent. Some wall thickening is identified in the bladder that could be due to outlet obstruction, however, please kindly correlate for presence or absence of cystitis symptoms. No acute bony pathology is seen. Bone islands identified in the right fibula distally at image 701. CONCLUSIONS: 1. The proximal abdominal aorta has calcification identified. Increased calcification is seen in the infrarenal abdominal aorta with no obstructive lesion identified. There is no evidence of acute aortic pathology, specifically, there is no dissection, intramural hematoma, or contained rupture. Quantitative dimension of the abdominal aorta are as noted. 2. Vascular stents are seen at the aortic bifurcation extends into the left and right common iliac arteries in the setting of calcific atherosclerosis. No in-stent stenosis is seen. Remainder the left and the right pelvic arteries are patent nonobstructive calcification identified. 3. The SFA and the profunda system as well as the popliteal arteries, bilaterally, have no obstructive lesion identified with minimal atherosclerosis seen. 4. Details of the runoff vessels as described above. 5. Other findings as described above. 6. An addendum will be dictated by the Information Technology Intern Radiologist regarding the nonvascular findings. THE REPORT WILL ONLY BE CONSIDERED COMPLETE AFTER THE ADDENDUM HAS BEEN DICTATED. Signed: Placido Hess MDReport Verified Date/Time: 09/11/2021 09:17:52 -CREATININE 2021-09-13 09:51:07 Test Item Value Reference Range Interpretation Comme nts POC-CREATININE (BEAKER) 0.6 mg/dL 0.6-1.3 : TE STED AT [facility] [address] (test code = 1859) [place], [id number]: Sand Analyst/Techni jolanta ID = [id number] for JavaAbhinav POC-EGFR (BEAKER) (test 135 mL/min/1.73M2 code = 1860) POCT URINALYSIS [id number] 00:00:00 Test Item Value Reference Range Interpretation Comments COLOR UA (test code = 5778-6) Yellow YELLOW/STRAW CLARITY UA (test code = 25934-6) Clear CLEAR GLUCOSE UA (test code = 5792-7) Negative NEGATIVE BILIRUBIN UA (test code = 5770-3) Negative NEGATIVE KETONES UA (test code = 79884-9) Negative NEGATIVE SPECIFIC GRAVITY UA (test code = 1.005-1.035 5811-5) BLOOD UA (test code = 5794-3) Negative NEGATIVE PH UA (test code = 5803-2) 5.0-9.0 PROTEIN UA (test code = 5804-0) Negative NEGATIVE UROBILINOGEN UA (test code = 0.02 E.U/DL NORMAL MG/DL 5818-0) LEUKOCYTE ESTERASE UA (test code Negative NEGATIVE = 5799-2) NITRITE UA (test code = 5802-4) Negative NEGATIVE REDUCING SUBSTANCES URINE (test code = 89489-9) [facility] [id number] 00:00:00 Test Item Value Reference Range Interpretation Comments COLOR UA (test code = 5778-6) Yellow YELLOW/STRAW CLARITY UA (test code = 09495-5) Clear CLEAR GLUCOSE UA (test code = 5792-7) Negative NEGATIVE BILIRUBIN UA (test code = 5770-3) Negative NEGATIVE KETONES UA (test code = 80785-6) Negative NEGATIVE SPECIFIC GRAVITY UA (test code = 1.005-1.035 5811-5) BLOOD UA (test code = 5794-3) Negative NEGATIVE PH UA (test code = 5803-2) 5.0-9.0 PROTEIN UA (test code = 5804-0) Negative NEGATIVE UROBILINOGEN UA (test code = 0.02 E.U/DL NORMAL MG/DL 5818-0) LEUKOCYTE ESTERASE UA (test code Negative NEGATIVE = 5799-2) NITRITE UA (test code = 5802-4) Negative NEGATIVE REDUCING SUBSTANCES URINE (test code = 11410-1) [facility], NON [id number] 07:11:00Reason for exam:->ctShould this be performed at the bedside?->Yes [facility] : 1955 Sex: MFINAL REPORT RAD, CHEST, 1 VIEW, NON DEPT INDICATION: ct COMPARISON: Prior day's exam FINDINGS: Portable frontal view of the chest. IMPRESSION: Support Lines: None Lungs and pleura: Scattered subsegmental atelectasis. No new consolidation. No pneumothorax.Heart andmediastinum: Stable contours. Additional findings: None. Signed: JR Tamera, Zoran Ogden Verified Date/Time: 05/17/2021 07:11:01 Reading Location: [facility] Radiology Reading Room BASIC METABOLIC [id number] 06:35:00 Test Item Value Reference Range Interpretation Comments SODIUM (BEAKER) 141 meq/L 136-145 (test code = 381) POTASSIUM (BEAKER) 4.0 meq/L 3.5-5.1 (test code = 379) CHLORIDE (BEAKER) 107 meq/L 98-107 (test code = 382) CO2 (BEAKER) (test 24 meq/L 22-29 code = 355) BLOOD UREA NITROGEN 7 mg/dL 7-21 (BEAKER) (test code = 354) CREATININE (BEAKER) 0.71 mg/dL 0.57-1.25 (test code = 358) GLUCOSE RANDOM 112 mg/dL 70-105 H (BEAKER) (test code = 652) CALCIUM (BEAKER) 9.1 mg/dL 8.4-10.2 (test code = 697) EGFR (BEAKER) (test 112 mL/min/1.73 ESTIM ATED GFR IS code = 1092) sq m NOT ACCURATE CREATININE CLEARANCE IN PREDICTING GLOMERULAR FILTRATION RATE . ESTIMATED GFR I S NOT APPLICABLE FOR DIALYSIS PATIEN TS. Sand Analyst ID - TINY [id number] 06:35:00 Test Item Value Reference Range Interpretation Comments MAGNESIUM (BEAKER) (test code = 2.0 mg/dL 1.6-2.6 627) Sand Analyst ID - TINY [id number] 06:35:00 Test Item Value Reference Range Interpretation Comments PHOSPHORUS (BEAKER) (test code = 4.0 mg/dL 2.3-4.7 604) Sand Analyst ID - TINY WCBC W/PLT COUNT & AUTO [id number] 05:58:00 Test Item Value Reference Range Interpretation Comments WHITE BLOOD CELL COUNT (BEAKER) 8.1 K/ L 3.5-10.5 (test code = 775) RED BLOOD CELL COUNT (BEAKER) 3.67 M/ L 4.63-6.08 L (test code = 761) HEMOGLOBIN (BEAKER) (test code = 11.2 GM/DL 13.7-17.5 L 410) HEMATOCRIT (BEAKER) (test code = 34.3 % 40.1-51.0 L 411) MEAN CORPUSCULAR VOLUME (BEAKER) 93.5 fL 79.0-92.2 H (test code = 753) MEAN CORPUSCULAR HEMOGLOBIN 30.5 pg 25.7-32.2 (BEAKER) (test code = 751) MEAN CORPUSCULAR HEMOGLOBIN CONC 32.7 GM/DL 32.3-36.5 (BEAKER) (test code = 752) RED CELL DISTRIBUTION WIDTH 14.6 % 11.6-14.4 H (BEAKER) (test code = 412) PLATELET COUNT (BEAKER) (test 183 K/CU MM 150-450 code = 756) MEAN PLATELET VOLUME (BEAKER) 11.1 fL 9.4-12.4 (test code = 754) NUCLEATED RED BLOOD CELLS 0 /100 WBC 0-0 (BEAKER) (test code = 413) NEUTROPHILS RELATIVE PERCENT 66 % (BEAKER) (test code = 429) LYMPHOCYTES RELATIVE PERCENT 22 % (BEAKER) (test code = 430) MONOCYTES RELATIVE PERCENT 9 % (BEAKER) (test code = 431) EOSINOPHILS RELATIVE PERCENT 2 % (BEAKER) (test code = 432) BASOPHILS RELATIVE PERCENT 1 % (BEAKER) (test code = 437) NEUTROPHILS ABSOLUTE COUNT 5.33 K/ L 1.78-5.38 (BEAKER) (test code = 670) LYMPHOCYTES ABSOLUTE COUNT 1.76 K/ L 1.32-3.57 (BEAKER) (test code = 414) MONOCYTES ABSOLUTE COUNT (BEAKER) 0.73 K/ L 0.30-0.82 (test code = 415) EOSINOPHILS ABSOLUTE COUNT 0.16 K/ L 0.04-0.54 (BEAKER) (test code = 416) BASOPHILS ABSOLUTE COUNT (BEAKER) 0.04 K/ L 0.01-0.08 (test code = 417) IMMATURE GRANULOCYTES-RELATIVE 1 % 0-1 PERCENT (BEAKER) (test code = 2801) BASIC METABOLIC [id number] 08:28:00 Test Item Value Reference Range Interpretation Comments SODIUM (BEAKER) 142 meq/L 136-145 (test code = 381) POTASSIUM (BEAKER) 3.8 meq/L 3.5-5.1 (test code = 379) CHLORIDE (BEAKER) 105 meq/L 98-107 (test code = 382) CO2 (BEAKER) (test 25 meq/L 22-29 code = 355) BLOOD UREA NITROGEN 5 mg/dL 7-21 L (BEAKER) (test code = 354) CREATININE (BEAKER) 0.75 mg/dL 0.57-1.25 (test code = 358) GLUCOSE RANDOM 108 mg/dL 70-105 H (BEAKER) (test code = 652) CALCIUM (BEAKER) 8.9 mg/dL 8.4-10.2 (test code = 697) EGFR (BEAKER) (test 105 mL/min/1.73 ESTIM ATED GFR IS code = 1092) sq m NOT ACCURATE CREATININE CLEARANCE IN PREDICTING GLOMERULAR FILTRATION RATE . ESTIMATED GFR I S NOT APPLICABLE FOR DIALYSIS PATIEN TS. Sand Analyst ID - JATINDER [id number] 08:28:00 Test Item Value Reference Range Interpretation Comments MAGNESIUM (BEAKER) (test code = 2.1 mg/dL 1.6-2.6 627) Sand Analyst ID - JATINDER [id number] 08:28:00 Test Item Value Reference Range Interpretation Comments PHOSPHORUS (BEAKER) (test code = 3.1 mg/dL 2.3-4.7 604) Sand Analyst ID - JATINDER WRAD, CHEST, 1 VIEW, NON [id number] 07:51:00Reason for exam:->ctShould this be performed at the bedside?->Yes [facility] : 1955 Sex: MFINAL REPORT History: Chest tube removal FINDINGS: Compared with May 15, 2021, left chest tube has been removed. No pneumothorax is identified. Lung volumes remain low. More focal opacity in the lung bases likely represents atelectasis. Pulmonary vascularity is mildly increased without edema. No large pleural effusions. Heart and mediastinum are stable. IMPRESSION: 1. Status post removal of patient's left chest tube. No pneumothorax. 2. Persistently low lung volumes and probable bilateral lower lobe atelectasis. Signed: Irvin Russo Verified Date/Time: 05/16/2021 07:51:48 Reading Location: [address] Transitional Reading Room POCT-GLUCOSE [id number] 07:47:00 Test Item Value Reference Range Interpretation Comments POC-GLUCOSE METER 106 mg/dL 70-110 : TESTED A T [facility] 6720 (BEAKER) (test code = RACHEL Gillette [facility], 1538) [id number]: Sand Analyst/Techni jolanta ID = [id number] for BRITNI LUU CBC W/PLT COUNT & AUTO [id number] 07:05:00 Test Item Value Reference Range Interpretation Comments WHITE BLOOD CELL COUNT (BEAKER) 10.3 K/ L 3.5-10.5 (test code = 775) RED BLOOD CELL COUNT (BEAKER) 4.00 M/ L 4.63-6.08 L (test code = 761) HEMOGLOBIN (BEAKER) (test code = 12.1 GM/DL 13.7-17.5 L 410) HEMATOCRIT (BEAKER) (test code = 38.2 % 40.1-51.0 L 411) MEAN CORPUSCULAR VOLUME (BEAKER) 95.5 fL 79.0-92.2 H (test code = 753) MEAN CORPUSCULAR HEMOGLOBIN 30.3 pg 25.7-32.2 (BEAKER) (test code = 751) MEAN CORPUSCULAR HEMOGLOBIN CONC 31.7 GM/DL 32.3-36.5 L (BEAKER) (test code = 752) RED CELL DISTRIBUTION WIDTH 14.7 % 11.6-14.4 H (BEAKER) (test code = 412) PLATELET COUNT (BEAKER) (test 171 K/CU MM 150-450 code = 756) MEAN PLATELET VOLUME (BEAKER) 11.4 fL 9.4-12.4 (test code = 754) NUCLEATED RED BLOOD CELLS 0 /100 WBC 0-0 (BEAKER) (test code = 413) NEUTROPHILS RELATIVE PERCENT 63 % (BEAKER) (test code = 429) LYMPHOCYTES RELATIVE PERCENT 27 % (BEAKER) (test code = 430) MONOCYTES RELATIVE PERCENT 8 % (BEAKER) (test code = 431) EOSINOPHILS RELATIVE PERCENT 1 % (BEAKER) (test code = 432) BASOPHILS RELATIVE PERCENT 0 % (BEAKER) (test code = 437) NEUTROPHILS ABSOLUTE COUNT 6.48 K/ L 1.78-5.38 H (BEAKER) (test code = 670) LYMPHOCYTES ABSOLUTE COUNT 2.72 K/ L 1.32-3.57 (BEAKER) (test code = 414) MONOCYTES ABSOLUTE COUNT (BEAKER) 0.85 K/ L 0.30-0.82 H (test code = 415) EOSINOPHILS ABSOLUTE COUNT 0.13 K/ L 0.04-0.54 (BEAKER) (test code = 416) BASOPHILS ABSOLUTE COUNT (BEAKER) 0.04 K/ L 0.01-0.08 (test code = 417) IMMATURE GRANULOCYTES-RELATIVE 0 % 0-1 PERCENT (BEAKER) (test code = 2801) CALCIUM, [id number] 07:04:00 Test Item Value Reference Range Interpretation Comments CALCIUM IONIZED (BEAKER) (test 1.17 mmol/L 1.12-1.27 code = 698) PH, BLOOD (BEAKER) (test code = 7.39 1810) POCT-GLUCOSE [id number] 21:25:00 Test Item Value Reference Range Interpretation Comments POC-GLUCOSE METER 131 mg/dL 70-110 H : TESTED A T [facility] 6720 (BEAKER) (test code = [facility], 1538) [id number]: Sand Analyst/Techni jolanta ID = [id number] for Cristin Pickard POCT-GLUCOSE [id number] 17:55:00 Test Item Value Reference Range Interpretation Comments POC-GLUCOSE METER 106 mg/dL 70-110 : TESTED A T [facility] 6720 (BEAKER) (test code = [facility], 1538) [address]: Sand Analyst/Techni jolanta ID = [id number] for Kalen AGUSTIN POCT-GLUCOSE [id number] 12:51:00 Test Item Value Reference Range Interpretation Comments POC-GLUCOSE METER 116 mg/dL 70-110 H : TESTED A T [facility] 6720 (BEAKER) (test code = [facility], 1538) [address]: Sand Analyst/Techni jolanta ID = [id number] for COLBY BARKER RAD, CHEST, 1 VIEW, NON [id number] 08:07:00Reason for exam:->ctShould this be performed at the bedside?->Yes [facility] : 1955 Sex: MFINAL REPORT Chest one view. Clinical history: ct Comparison: May 14, 2021 Discussion: A frontal chest is provided. Cardiomediastinal contours are unchanged. Right IJ line has been removed. A left-sided chest tube is in stable position. Stable streaky left basilar opacity. No new consolidation. No pneumothorax or large effusion. Signed: Regine Mooney Verified Date/Time: 05/15/2021 08:07:09 Reading Location: [facility] [id number] Ortho Consult Reading Room POCT-GLUCOSE [id number] 08:00:00 Test Item Value Reference Range Interpretation Comments POC-GLUCOSE METER 120 mg/dL 70-110 H : TESTED A T [facility] 6720 (BEAKER) (test code = [facility] [place], 1538) [address]: Sand Analyst/Techni jolanta ID = [id number] for Lexus Hernández BASIC METABOLIC [id number] 06:15:00 Test Item Value Reference Range Interpretation Comments SODIUM (BEAKER) 139 meq/L 136-145 (test code = 381) POTASSIUM (BEAKER) 3.7 meq/L 3.5-5.1 (test code = 379) CHLORIDE (BEAKER) 105 meq/L 98-107 (test code = 382) CO2 (BEAKER) (test 23 meq/L 22-29 code = 355) BLOOD UREA NITROGEN 8 mg/dL 7-21 (BEAKER) (test code = 354) CREATININE (BEAKER) 0.73 mg/dL 0.57-1.25 (test code = 358) GLUCOSE RANDOM 116 mg/dL 70-105 H (BEAKER) (test code = 652) CALCIUM (BEAKER) 8.4 mg/dL 8.4-10.2 (test code = 697) EGFR (BEAKER) (test 108 mL/min/1.73 ESTIM ATED GFR IS code = 1092) sq m NOT ACCURATE CREATININE CLEARANCE IN PREDICTING GLOMERULAR FILTRATION RATE . ESTIMATED GFR I S NOT APPLICABLE FOR DIALYSIS PATIEN TS. Sand Analyst ID - [id number] 06:15:00 Test Item Value Reference Range Interpretation Comments MAGNESIUM (BEAKER) (test code = 2.0 mg/dL 1.6-2.6 627) Sand Analyst ID - [id number] 06:15:00 Test Item Value Reference Range Interpretation Comments PHOSPHORUS (BEAKER) (test code = 3.1 mg/dL 2.3-4.7 604) Sand Analyst ID - EDASICBC W/PLT COUNT & AUTO [id number] 05:47:00 Test Item Value Reference Range Interpretation Comments WHITE BLOOD CELL COUNT (BEAKER) 10.3 K/ L 3.5-10.5 (test code = 775) RED BLOOD CELL COUNT (BEAKER) 3.69 M/ L 4.63-6.08 L (test code = 761) HEMOGLOBIN (BEAKER) (test code = 11.1 GM/DL 13.7-17.5 L 410) HEMATOCRIT (BEAKER) (test code = 35.1 % 40.1-51.0 L 411) MEAN CORPUSCULAR VOLUME (BEAKER) 95.1 fL 79.0-92.2 H (test code = 753) MEAN CORPUSCULAR HEMOGLOBIN 30.1 pg 25.7-32.2 (BEAKER) (test code = 751) MEAN CORPUSCULAR HEMOGLOBIN CONC 31.6 GM/DL 32.3-36.5 L (BEAKER) (test code = 752) RED CELL DISTRIBUTION WIDTH 14.9 % 11.6-14.4 H (BEAKER) (test code = 412) PLATELET COUNT (BEAKER) (test 148 K/CU MM 150-450 L code = 756) MEAN PLATELET VOLUME (BEAKER) 11.7 fL 9.4-12.4 (test code = 754) NUCLEATED RED BLOOD CELLS 0 /100 WBC 0-0 (BEAKER) (test code = 413) NEUTROPHILS RELATIVE PERCENT 71 % (BEAKER) (test code = 429) LYMPHOCYTES RELATIVE PERCENT 19 % (BEAKER) (test code = 430) MONOCYTES RELATIVE PERCENT 9 % (BEAKER) (test code = 431) EOSINOPHILS RELATIVE PERCENT 1 % (BEAKER) (test code = 432) BASOPHILS RELATIVE PERCENT 0 % (BEAKER) (test code = 437) NEUTROPHILS ABSOLUTE COUNT 7.29 K/ L 1.78-5.38 H (BEAKER) (test code = 670) LYMPHOCYTES ABSOLUTE COUNT 1.94 K/ L 1.32-3.57 (BEAKER) (test code = 414) MONOCYTES ABSOLUTE COUNT (BEAKER) 0.95 K/ L 0.30-0.82 H (test code = 415) EOSINOPHILS ABSOLUTE COUNT 0.08 K/ L 0.04-0.54 (BEAKER) (test code = 416) BASOPHILS ABSOLUTE COUNT (BEAKER) 0.04 K/ L 0.01-0.08 (test code = 417) IMMATURE GRANULOCYTES-RELATIVE 0 % 0-1 PERCENT (BEAKER) (test code = 2801) [id number] 08:39:00 Test Item Value Reference Range Interpretation Comments MAGNESIUM (BEAKER) (test code = 1.9 mg/dL 1.6-2.6 627) Sand Analyst ID - ADMINRAD, CHEST, 1 VIEW, NON [id number] 07:57:00while patient is intubated or has chest tubes.Reason for exam:->Status post CV SurgeryShould thisbe performed at the bedside?->Yes [facility] 1955 Sex: MFINAL REPORT TECHNIQUE: Frontal view of the chest. INDICATION: 65-y ear-old man status post cardiovascular surgery. COMPARISON: Chest radiograph 05/13/2021. FINDINGS: LINES/TUBES: Interval extubation and removal of the nasogastric/orogastric tube. Other lines/tubes are unchanged. LUNGS: Persistent streaky atelectasis in the left lung base. PLEURA: No pneumothorax or sig nificant pleural effusion. HEART AND MEDIASTINUM: Cardiomediastinal silhouette is unchanged. Atherosclerotic calcifications in the thoracic aorta. BONES AND SOFT TISSUES: Unremarkable. IMPRESSION:Lines/tubes as above. Otherwise, no significant change since 05/13/2021. Signed: Hailey Samaniego MDReport Verified Date/Time: 05/14/2021 07:57:54 Reading Location: [facility] Diagnostic Imaging Reading Room - [place] [address] [id number] 06:59:00 Test Item Value Reference Range Interpretation Comments MAGNESIUM (BEAKER) 5.3 mg/dL 1.6-2.6 HH Specimen slightly (test code = 627) hemolyzed Sand Analyst ID - PIAYA [id number] 06:38:00 Test Item Value Reference Range Interpretation Comments ACTIVATED CLOTTING TIME 109 sec : 74 -137 seconds, (BEAKER) (test code = Baseli ne: TESTED AT 441) [address], [facility] 30: Sand Analyst/Techni jolanta ID = [id number] for DERIK KUHN [id number] 06:38:00 Test Item Value Reference Range Interpretation Comments ACTIVATED CLOTTING TIME 125 sec : 74 -137 seconds, (BEAKER) (test code = Baseli ne: TESTED AT 441) [address], [facility] 30: Sand Analyst/Techni jolanta ID = [id number] for DERIK KUHN [id number] 06:38:00 Test Item Value Reference Range Interpretation Comments ACTIVATED CLOTTING TIME 318 sec : 74 -137 seconds, (BEAKER) (test code = Baseli ne: TESTED AT 441) [address], [facility] 30: Sand Analyst/Techni jolanta ID = [id number] for DERIK KUHN [id number] 06:38:00 Test Item Value Reference Range Interpretation Comments ACTIVATED CLOTTING TIME 290 sec : 74 -137 seconds, (BEAKER) (test code = Baseli ne: TESTED AT 441) [address], [facility] 30: Sand Analyst/Techni jolanta ID = [id number] for DERIK KUHN [id number] 06:37:00 Test Item Value Reference Range Interpretation Comments ACTIVATED CLOTTING TIME 224 sec : 74 -137 seconds, (BEAKER) (test code = Baseli ne: TESTED AT 441) [address], [facility] 30: Sand Analyst/Techni jolanta ID = [id number] for DERIK KUHN [id number] 06:06:00 Test Item Value Reference Range Interpretation Comments PHOSPHORUS (BEAKER) 4.1 mg/dL 2.3-4.7 Specimen slightly (test code = 604) hemolyzed Sand Analyst ID - PIAYA LBASIC METABOLIC [id number] 06:06:00 Test Item Value Reference Range Interpretation Comments SODIUM (BEAKER) 135 meq/L 136-145 L (test code = 381) POTASSIUM (BEAKER) 4.2 meq/L 3.5-5.1 Specimen slightly (test code = 379) hemolyzed CHLORIDE (BEAKER) 105 meq/L 98-107 (test code = 382) CO2 (BEAKER) (test 21 meq/L 22-29 L code = 355) BLOOD UREA NITROGEN 10 mg/dL 7-21 (BEAKER) (test code = 354) CREATININE (BEAKER) 0.72 mg/dL 0.57-1.25 Specimen slightly (test code = 358) hemolyzed GLUCOSE RANDOM 143 mg/dL 70-105 H (BEAKER) (test code = 652) CALCIUM (BEAKER) 8.3 mg/dL 8.4-10.2 L (test code = 697) EGFR (BEAKER) (test 110 mL/min/1.73 ESTIM ATED GFR IS code = 1092) sq m NOT ACCURATE CREATININE CLEARANCE IN PREDICTING GLOMERULAR FILTRATION RATE . ESTIMATED GFR I S NOT APPLICABLE FOR DIALYSIS PATIEN TS. Sand Analyst ID - PIAYA LCBC (HEMOGRAM ONLY)2021-05-14 05:17:00 Test Item Value Reference Range Interpretation Comments WHITE BLOOD CELL COUNT (BEAKER) 12.6 K/ L 3.5-10.5 H (test code = 775) RED BLOOD CELL COUNT (BEAKER) 4.00 M/ L 4.63-6.08 L (test code = 761) HEMOGLOBIN (BEAKER) (test code = 12.2 GM/DL 13.7-17.5 L 410) HEMATOCRIT (BEAKER) (test code = 37.7 % 40.1-51.0 L 411) MEAN CORPUSCULAR VOLUME (BEAKER) 94.3 fL 79.0-92.2 H (test code = 753) MEAN CORPUSCULAR HEMOGLOBIN 30.5 pg 25.7-32.2 (BEAKER) (test code = 751) MEAN CORPUSCULAR HEMOGLOBIN CONC 32.4 GM/DL 32.3-36.5 (BEAKER) (test code = 752) RED CELL DISTRIBUTION WIDTH 14.3 % 11.6-14.4 (BEAKER) (test code = 412) PLATELET COUNT (BEAKER) (test 164 K/CU MM 150-450 code = 756) MEAN PLATELET VOLUME (BEAKER) 11.5 fL 9.4-12.4 (test code = 754) NUCLEATED RED BLOOD CELLS 0 /100 WBC 0-0 (BEAKER) (test code = 413) BLOOD GAS, [id number] 05:15:00 Test Item Value Reference Range Interpretation Comments PH ARTERIAL (BEAKER) (test code = 7.38 7.35-7.45 383) PCO2 ARTERIAL (BEAKER) (test code 40 mm Hg 35-45 = 384) PO2 ARTERIAL (BEAKER) (test code 95 mm Hg 80-90 H = 385) O2 SATURATION ARTERIAL (BEAKER) 97.2 % 96.0-97.0 H (test code = 386) HCO3 ARTERIAL (BEAKER) (test code 23 mmol/L 21-29 = 388) BASE EXCESS ARTERIAL (BEAKER) -1.5 mmol/L -2.0-3.0 (test code = 387) PATIENT TEMPERATURE (BEAKER) 37.0 (test code = 1818) FIO2 (BEAKER) (test code = 1819) 36.0 GLUCOSE-STAT [id number] 05:15:00 Test Item Value Reference Range Interpretation Comments GLUCOSE RANDOM (BEAKER) (test code 137 mg/dL 70-110 H = 652) HGB/HCT (H&H) - STAT [id number] 05:15:00 Test Item Value Reference Range Interpretation Comments HEMOGLOBIN (BEAKER) (test code = 13.2 GM/DL 13.0-16.8 410) HEMATOCRIT (BEAKER) (test code = 39.0 % 40.0-50.0 L 411) CALCIUM, [id number] 05:15:00 Test Item Value Reference Range Interpretation Comments CALCIUM IONIZED (BEAKER) (test 1.17 mmol/L 1.12-1.27 code = 698) PH, BLOOD (BEAKER) (test code = 7.38 1810) SODIUM NA-STAT [id number] 05:13:00 Test Item Value Reference Range Interpretation Comments SODIUM (BEAKER) (test code = 381) 137 meq/L 136-145 POTASSIUM-STAT [id number] 05:13:00 Test Item Value Reference Range Interpretation Comments POTASSIUM (BEAKER) (test code = 4.0 meq/L 3.6-5.5 379) RAD, CHEST, 1 VIEW, NON [id number] 03:17:00Reason for exam:->Status post CV Surgery post op day 0Should this be performed at the bedside?->Yes [facility] : 1955 Sex: MFINAL REPORT RAD, CHEST, 1 VIEW, NON DEPT INDICATION: Status post CV Surgery post op day 0 COMPARISON: None FINDINGS: Portable frontal view of the chest. IMPRESSION: Support Lines: There is intubation of the left mainstem bronchus with the selective endotracheal tube terminating 3.5 cm beyond the loki. Enteric tube terminates in the stomach. Right transjugular venous catheter terminates in the SVC confluence. Left chest tube is present.Lungs and pleura: Hypoinflated lungs with bilateral parenchymal opacities suggestive of atelectasis and/or edema. No sizable effusion. No pneumothorax.Heart and mediastinum: Unremarkable cardiomediastinal contours.Additional findings: None. Signed: Luiza Beal MDReport Verified Date/Time: 05/14/2021 03:17:59 BASIC METABOLIC [id number] 19:57:00 Test Item Value Reference Range Interpretation Comments SODIUM (BEAKER) 139 meq/L 136-145 (test code = 381) POTASSIUM (BEAKER) 4.2 meq/L 3.5-5.1 (test code = 379) CHLORIDE (BEAKER) 110 meq/L 98-107 H (test code = 382) CO2 (BEAKER) (test 18 meq/L 22-29 L code = 355) BLOOD UREA NITROGEN 10 mg/dL 7-21 (BEAKER) (test code = 354) CREATININE (BEAKER) 0.69 mg/dL 0.57-1.25 (test code = 358) GLUCOSE RANDOM 132 mg/dL 70-105 H (BEAKER) (test code = 652) CALCIUM (BEAKER) 7.8 mg/dL 8.4-10.2 L (test code = 697) EGFR (BEAKER) (test 115 mL/min/1.73 ESTIM ATED GFR IS code = 1092) sq m NOT ACCURATE CREATININE CLEARANCE IN PREDICTING GLOMERULAR FILTRATION RATE . ESTIMATED GFR I S NOT APPLICABLE FOR DIALYSIS PATIEN TS. Sand Analyst ID - [id number] 19:52:00 Test Item Value Reference Range Interpretation Comments MAGNESIUM (BEAKER) (test code = 2.1 mg/dL 1.6-2.6 627) Sand Analyst ID - [id number] 19:52:00 Test Item Value Reference Range Interpretation Comments PHOSPHORUS (BEAKER) (test code = 3.5 mg/dL 2.3-4.7 604) Sand Analyst ID - DBLACTIC ACID, [id number] 19:47:00 Test Item Value Reference Range Interpretation Comments LACTATE BLOOD ARTERIAL (2) 1.2 mmol/L 0.5-2.2 (BEAKER) (test code = 2874) Sand Analyst ID - [id number] 19:36:00 Test Item Value Reference Range Interpretation Comments FIBRINOGEN LEVEL (BEAKER) (test 311 mg/dl 225-434 code = 658) [id number] 19:36:00 Test Item Value Reference Range Interpretation Comments PARTIAL THROMBOPLASTIN TIME 27.4 seconds 22.5-36.0 (BEAKER) (test code = 760) PROTHROMBIN [id number] 19:35:00 Test Item Value Reference Range Interpretation Comments PROTIME (BEAKER) 14.8 seconds 11.9-14.2 H (test code = 759) INR (BEAKER) (test 1.18 See_Comment [Automat ed message] code = 370) The system [employer] generated this result transmitted ref erence range: <=5.90. The reference range was not used to int erpret this result as normal/abnormal . RECOMMENDED COUMADIN/WARFARIN INR THERAPY RANGESSTANDARD DOSE: 2.0 - 3.0 Includes: PROPHYLAXIS forvenous thrombosis, systemic embolization; TREATMENT for venous thrombosis and/or pulmonary embolus.HIGH RISK: Target INR is 2.5-3.5 for patients with mechanical heart valves.CBC W/PLT COUNT & AUTO DIFFERENTIAL 2021-05-13 19:26:00 Test Item Value Reference Range Interpretation Comments WHITE BLOOD CELL COUNT (BEAKER) 12.0 K/ L 3.5-10.5 H (test code = 775) RED BLOOD CELL COUNT (BEAKER) 3.65 M/ L 4.63-6.08 L (test code = 761) HEMOGLOBIN (BEAKER) (test code = 11.2 GM/DL 13.7-17.5 L 410) HEMATOCRIT (BEAKER) (test code = 35.7 % 40.1-51.0 L 411) MEAN CORPUSCULAR VOLUME (BEAKER) 97.8 fL 79.0-92.2 H (test code = 753) MEAN CORPUSCULAR HEMOGLOBIN 30.7 pg 25.7-32.2 (BEAKER) (test code = 751) [...] (test code = 413) NEUTROPHILS RELATIVE PERCENT 76 % (BEAKER) (test code = 429) LYMPHOCYTES RELATIVE PERCENT 17 % (BEAKER) (test code = 430) MONOCYTES RELATIVE PERCENT 6 % (BEAKER) (test code = 431) EOSINOPHILS RELATIVE PERCENT 0 % (BEAKER) (test code = 432) BASOPHILS RELATIVE PERCENT 0 % (BEAKER) (test code = 437) NEUTROPHILS ABSOLUTE COUNT 9.19 K/ L 1.78-5.38 H (BEAKER) (test code = 670) LYMPHOCYTES ABSOLUTE COUNT 2.02 K/ L 1.32-3.57 (BEAKER) (test code = 414) MONOCYTES ABSOLUTE COUNT (BEAKER) 0.67 K/ L 0.30-0.82 (test code = 415) EOSINOPHILS ABSOLUTE COUNT 0.04 K/ L 0.04-0.54 (BEAKER) (test code = 416) BASOPHILS ABSOLUTE COUNT (BEAKER) 0.04 K/ L 0.01-0.08 (test code = 417) IMMATURE GRANULOCYTES-RELATIVE 1 % 0-1 PERCENT (BEAKER) (test code = 2801) BLOOD GAS, [id number] 19:15:00 Test Item Value Reference Range Interpretation Comments PH ARTERIAL (BEAKER) (test code = 7.32 7.35-7.45 L 383) PCO2 ARTERIAL (BEAKER) (test code 42 mm Hg 35-45 = 384) PO2 ARTERIAL (BEAKER) (test code 181 mm Hg 80-90 H = 385) O2 SATURATION ARTERIAL (BEAKER) 99.2 % 96.0-97.0 H (test code = 386) HCO3 ARTERIAL (BEAKER) (test code 22 mmol/L 21-29 = 388) BASE EXCESS ARTERIAL (BEAKER) -4.6 mmol/L -2.0-3.0 L (test code = 387) PATIENT TEMPERATURE (BEAKER) 36.4 (test code = 1818) BLOOD GAS, [id number] 18:36:00 Test Item Value Reference Range Interpretation Comments PH ARTERIAL (BEAKER) (test code = 7.36 7.35-7.45 383) PCO2 ARTERIAL (BEAKER) (test code 38 mm Hg 35-45 = 384) PO2 ARTERIAL (BEAKER) (test code 148 mm Hg 80-90 H = 385) O2 SATURATION ARTERIAL (BEAKER) 98.9 % 96.0-97.0 H (test code = 386) HCO3 ARTERIAL (BEAKER) (test code 21 mmol/L 21-29 = 388) BASE EXCESS ARTERIAL (BEAKER) -4.2 mmol/L -2.0-3.0 L (test code = 387) PATIENT TEMPERATURE (BEAKER) 36.1 (test code = 1818) FIO2 (BEAKER) (test code = 1819) 54.0 GLUCOSE-STAT [id number] 18:36:00 Test Item Value Reference Range Interpretation Comments GLUCOSE RANDOM (BEAKER) (test code 132 mg/dL 70-110 H = 652) HGB/HCT (H&H) - STAT [id number] 18:36:00 Test Item Value Reference Range Interpretation Comments HEMOGLOBIN (BEAKER) (test code = 11.7 GM/DL 13.0-16.8 L 410) HEMATOCRIT (BEAKER) (test code = 34.0 % 40.0-50.0 L 411) SODIUM NA-STAT [id number] 18:35:00 Test Item Value Reference Range Interpretation Comments SODIUM (BEAKER) (test code = 381) 138 meq/L 136-145 POTASSIUM-STAT [id number] 18:35:00 Test Item Value Reference Range Interpretation Comments POTASSIUM (BEAKER) (test code = 3.7 meq/L 3.6-5.5 379) LACTIC ACID, [id number] 16:33:00 Test Item Value Reference Range Interpretation Comments LACTATE BLOOD ARTERIAL (2) 1.1 mmol/L 0.5-2.2 (BEAKER) (test code = 2874) Sand Analyst ID - EMERSONBLOOD GAS, [id number] 15:41:00 Test Item Value Reference Range Interpretation Comments PH ARTERIAL (BEAKER) (test code = 7.39 7.35-7.45 383) PCO2 ARTERIAL (BEAKER) (test code 39 mm Hg 35-45 = 384) PO2 ARTERIAL (BEAKER) (test code 89 mm Hg 80-90 = 385) O2 SATURATION ARTERIAL (BEAKER) 97.1 % 96.0-97.0 H (test code = 386) HCO3 ARTERIAL (BEAKER) (test code 23 mmol/L 21-29 = 388) BASE EXCESS ARTERIAL (BEAKER) -2.1 mmol/L -2.0-3.0 L (test code = 387) PATIENT TEMPERATURE (BEAKER) 36.0 (test code = 1818) FIO2 (BEAKER) (test code = 1819) 50.0 HGB/HCT (H&H) - STAT [id number] 15:41:00 Test Item Value Reference Range Interpretation Comments HEMOGLOBIN (BEAKER) (test code = 12.9 GM/DL 13.0-16.8 L 410) HEMATOCRIT (BEAKER) (test code = 38.0 % 40.0-50.0 L 411) GLUCOSE-STAT [id number] 15:40:00 Test Item Value Reference Range Interpretation Comments GLUCOSE RANDOM (BEAKER) (test code 108 mg/dL 70-110 = 652) SODIUM NA-STAT [id number] 15:40:00 Test Item Value Reference Range Interpretation Comments SODIUM (BEAKER) (test code = 381) 139 meq/L 136-145 POTASSIUM-STAT [id number] 15:40:00 Test Item Value Reference Range Interpretation Comments POTASSIUM (BEAKER) (test code = 4.0 meq/L 3.6-5.5 379) CALCIUM, [id number] 15:18:00 Test Item Value Reference Range Interpretation Comments CALCIUM IONIZED (BEAKER) (test 1.09 mmol/L 1.12-1.27 L code = 698) PH, BLOOD (BEAKER) (test code = 7.41 1810) BLOOD GAS, [id number] 15:16:00 Test Item Value Reference Range Interpretation Comments PH ARTERIAL (BEAKER) (test code = 7.41 7.35-7.45 383) PCO2 ARTERIAL (BEAKER) (test code 34 mm Hg 35-45 L = 384) PO2 ARTERIAL (BEAKER) (test code 89 mm Hg 80-90 = 385) O2 SATURATION ARTERIAL (BEAKER) 97.4 % 96.0-97.0 H (test code = 386) HCO3 ARTERIAL (BEAKER) (test code 21 mmol/L 21-29 = 388) BASE EXCESS ARTERIAL (BEAKER) -3.1 mmol/L -2.0-3.0 L (test code = 387) PATIENT TEMPERATURE (BEAKER) 35.6 (test code = 1818) FIO2 (BEAKER) (test code = 1819) 55.0 POTASSIUM-STAT [id number] 15:16:00 Test Item Value Reference Range Interpretation Comments POTASSIUM (BEAKER) (test code = 3.4 meq/L 3.6-5.5 L 379) HGB/HCT (H&H) - STAT [id number] 15:16:00 Test Item Value Reference Range Interpretation Comments HEMOGLOBIN (BEAKER) (test code = 11.8 GM/DL 13.0-16.8 L 410) HEMATOCRIT (BEAKER) (test code = 35.0 % 40.0-50.0 L 411) GLUCOSE-STAT [id number] 15:08:00 Test Item Value Reference Range Interpretation Comments GLUCOSE RANDOM (BEAKER) (test code 107 mg/dL 70-110 = 652) SODIUM NA-STAT [id number] 15:08:00 Test Item Value Reference Range Interpretation Comments SODIUM (BEAKER) (test code = 381) 138 meq/L 136-145 LACTIC ACID, [id number] 15:07:00 Test Item Value Reference Range Interpretation Comments LACTATE BLOOD VENOUS (2) (BEAKER) 0.99 mmol/L 0.50-2.20 (test code = 2872) Sand Analyst ID - EMERSONHGB/HCT (H&H) - STAT [id number] 14:38:00 Test Item Value Reference Range Interpretation Comments HEMOGLOBIN (BEAKER) (test code = 12.9 GM/DL 13.0-16.8 L 410) HEMATOCRIT (BEAKER) (test code = 38.0 % 40.0-50.0 L 411) CALCIUM, [id number] 14:38:00 Test Item Value Reference Range Interpretation Comments CALCIUM IONIZED (BEAKER) (test 1.22 mmol/L 1.12-1.27 code = 698) PH, BLOOD (BEAKER) (test code = 7.36 1810) BLOOD GAS, [id number] 14:37:00 Test Item Value Reference Range Interpretation Comments PH ARTERIAL (BEAKER) (test code = 7.36 7.35-7.45 383) PCO2 ARTERIAL (BEAKER) (test code 45 mm Hg 35-45 = 384) PO2 ARTERIAL (BEAKER) (test code 84 mm Hg 80-90 = 385) O2 SATURATION ARTERIAL (BEAKER) 96.7 % 96.0-97.0 (test code = 386) HCO3 ARTERIAL (BEAKER) (test code 26 mmol/L 21-29 = 388) BASE EXCESS ARTERIAL (BEAKER) -0.6 mmol/L -2.0-3.0 (test code = 387) PATIENT TEMPERATURE (BEAKER) 35.3 (test code = 1818) FIO2 (BEAKER) (test code = 1819) 73.0 GLUCOSE-STAT [id number] 14:37:00 Test Item Value Reference Range Interpretation Comments GLUCOSE RANDOM (BEAKER) (test code 102 mg/dL 70-110 = 652) SODIUM NA-STAT [id number] 14:37:00 Test Item Value Reference Range Interpretation Comments SODIUM (BEAKER) (test code = 381) 139 meq/L 136-145 POTASSIUM-STAT [id number] 14:37:00 Test Item Value Reference Range Interpretation Comments POTASSIUM (BEAKER) (test code = 3.8 meq/L 3.6-5.5 379) CALCIUM, [id number] 13:40:00 Test Item Value Reference Range Interpretation Comments CALCIUM IONIZED (BEAKER) (test 1.12 mmol/L 1.12-1.27 code = 698) PH, BLOOD (BEAKER) (test code = 7.43 1810) GLUCOSE-STAT [id number] 13:39:00 Test Item Value Reference Range Interpretation Comments GLUCOSE RANDOM (BEAKER) (test code 104 mg/dL 70-110 = 652) SODIUM NA-STAT [id number] 13:39:00 Test Item Value Reference Range Interpretation Comments SODIUM (BEAKER) (test code = 381) 140 meq/L 136-145 POTASSIUM-STAT [id number] 13:39:00 Test Item Value Reference Range Interpretation Comments POTASSIUM (BEAKER) (test code = 3.7 meq/L 3.6-5.5 379) BLOOD GAS, [id number] 13:39:00 Test Item Value Reference Range Interpretation Comments PH ARTERIAL (BEAKER) (test code = 7.44 7.35-7.45 383) PCO2 ARTERIAL (BEAKER) (test code 35 mm Hg 35-45 = 384) PO2 ARTERIAL (BEAKER) (test code 322 mm Hg 80-90 H = 385) O2 SATURATION ARTERIAL (BEAKER) 99.8 % 96.0-97.0 H (test code = 386) HCO3 ARTERIAL (BEAKER) (test code 23 mmol/L 21-29 = 388) BASE EXCESS ARTERIAL (BEAKER) -0.6 mmol/L -2.0-3.0 (test code = 387) PATIENT TEMPERATURE (BEAKER) 36.0 (test code = 1818) FIO2 (BEAKER) (test code = 1819) 79.0 HGB/HCT (H&H) - STAT [id number] 13:39:00 Test Item Value Reference Range Interpretation Comments HEMOGLOBIN (FRANCISCO) (test code = 13.3 GM/DL 13.0-16.8 410) HEMATOCRIT (FRANCISCO) (test code = 39.0 % 40.0-50.0 L 411) POCT-GLUCOSE [id number] 09:40:00 Test Item Value Reference Range Interpretation Comments POC-GLUCOSE METER 115 mg/dL 70-110 H : TESTED A T [facility] 6720 (FRANCISCO) (test code = [place], 1538) [address]: Sand Analyst/Techni jolanta ID = [id number] for CLAYTON LEWIS SARS-COV2/RT-PCR ([facility])2021-05-12 01:07:00 Test Item Value Reference Range Interpretation Comments SARS-COV2/RT-PCR (test Negative Not Detected, Negative, code = 1091335) See external report for linked test SARS-COV-2 PERFORMING LAB [facility] CRISTIAN (test code = 5272608) Negative result for this test determines that [...] the Arias SARS-CoV-2 assay.Fact Sheet for Healthcare Providers:https://www.Crisp.arias/gisel/ CB_VFFZ-WpD-2_WKF_Tutw_Agcwu_11-729473.pdfFact Sheet for Healthcare Patients:https://www.Crisp.ConnectQuest afia/gisel/KJ_DLMJ-GvT-2_Ybptlvc_Inpi_Epolh_SL_95-165008W5.pdfPerforming Laboratory:[place] [address] [place] [address] HEMOGLOBIN [id number] 13:53:00 Test Item Value Reference Range Interpretation Comments HEMOGLOBIN A1C (BEAKER) (test code = 6.4 % 4.3-6.1 H 368) COMPREHENSIVE METABOLIC [id number] 13:44:00 Test Item Value Reference Range Interpretation Comments TOTAL PROTEIN 7.3 gm/dL 6.0-8.3 (BEAKER) (test code = 770) ALBUMIN (BEAKER) 4.5 g/dL 3.5-5.0 (test code = 1145) ALKALINE PHOSPHATASE 80 U/L 40-150 (BEAKER) (test code = 346) BILIRUBIN TOTAL 0.6 mg/dL 0.2-1.2 (BEAKER) (test code = 377) SODIUM (BEAKER) (test 139 meq/L 136-145 code = 381) POTASSIUM (BEAKER) 4.6 meq/L 3.5-5.1 (test code = 379) CHLORIDE (BEAKER) 104 meq/L 98-107 (test code = 382) CO2 (BEAKER) (test 25 meq/L 22-29 code = 355) BLOOD UREA NITROGEN 12 mg/dL 7-21 (BEAKER) (test code = 354) CREATININE (BEAKER) 1.01 mg/dL 0.57-1.25 (test code = 358) GLUCOSE RANDOM 110 mg/dL 70-105 H (BEAKER) (test code = 652) CALCIUM (BEAKER) 9.5 mg/dL 8.4-10.2 (test code = 697) AST (SGOT) (BEAKER) 12 U/L 5-34 (test code = 353) ALT (SGPT) (BEAKER) 13 U/L 6-55 (test code = 347) EGFR (BEAKER) (test 74 mL/min/1.73 ESTIMA FABIAN GFR IS code = 1092) sq m NOT ACCURATE CREATININE CLEARANCE IN PREDICTING GLOMERULAR FILTRATION RATE . ESTIMATED GFR I S NOT APPLICABLE FOR DIALYSIS PATIEN TS. Sand Analyst ID - [id number] 13:44:00 Test Item Value Reference Range Interpretation Comments MAGNESIUM (BEAKER) (test code = 2.3 mg/dL 1.6-2.6 627) Sand Analyst ID - DBLIPID [id number] 13:44:00 Test Item Value Reference Range Interpretation Comments TRIGLYCERIDES (BEAKER) (test code = 135 mg/dL 540) CHOLESTEROL (BEAKER) (test code = 114 mg/dL 631) HDL CHOLESTEROL (BEAKER) (test code 37 mg/dL = 976) LDL CHOLESTEROL CALCULATED (BEAKER) 50 mg/dL (test code = 633) Triglyceride Reference Range: Low Risk <150 Borderline 150-199 High Risk 200-499 Very High Risk >=500Cholesterol Reference Range: Low Risk <200 Borderline 200-239 High Risk >240HDL Cholesterol Reference Range: Low Risk >=60 High Risk <40LDL Cholesterol Reference Range: Optimal <100 Near Optimal 100-129 Borderline 130-159 High 160-189 Very High >=190 Sand Analyst ID - [id number] 13:40:00 Test Item Value Reference Range Interpretation Comments PARTIAL THROMBOPLASTIN TIME 28.0 seconds 22.5-36.0 (BEAKER) (test code = 760) PROTHROMBIN [id number] 13:39:00 Test Item Value Reference Range Interpretation Comments PROTIME (BEAKER) 12.7 seconds 11.9-14.2 (test code = 759) INR (BEAKER) (test 0.97 See_Comment [Automat ed message] code = 370) The system [employer]ESoft generated this result transmitted ref erence range: <=5.90. The reference range was not used to int erpret this result as normal/abnormal . RECOMMENDED COUMADIN/WARFARIN INR THERAPY RANGESSTANDARD DOSE: 2.0 - 3.0 Includes: PROPHYLAXIS forvenous thrombosis, systemic embolization; TREATMENT for venous thrombosis and/or pulmonary embolus.HIGH RISK: Target INR is 2.5-3.5 for patients with mechanical heart valves.CBC W/PLT COUNT & AUTO DIFFERENTIAL 2021-05-11 13:15:00 Test Item Value Reference Range Interpretation Comments WHITE BLOOD CELL COUNT (BEAKER) 8.7 K/ L 3.5-10.5 (test code = 775) RED BLOOD CELL COUNT (BEAKER) 4.64 M/ L 4.63-6.08 (test code = 761) HEMOGLOBIN (BEAKER) (test code = 14.1 GM/DL 13.7-17.5 410) HEMATOCRIT (BEAKER) (test code = 44.0 % 40.1-51.0 411) MEAN CORPUSCULAR VOLUME (BEAKER) 94.8 fL 79.0-92.2 H (test code = 753) MEAN CORPUSCULAR HEMOGLOBIN 30.4 pg 25.7-32.2 (BEAKER) (test code = 751) MEAN CORPUSCULAR HEMOGLOBIN CONC 32.0 GM/DL 32.3-36.5 L (BEAKER) (test code = 752) RED CELL DISTRIBUTION WIDTH 14.4 % 11.6-14.4 (BEAKER) (test code = 412) PLATELET COUNT (BEAKER) (test 208 K/CU MM 150-450 code = 756) MEAN PLATELET VOLUME (BEAKER) 11.1 fL 9.4-12.4 (test code = 754) NUCLEATED RED BLOOD CELLS 0 /100 WBC 0-0 (BEAKER) (test code = 413) NEUTROPHILS RELATIVE PERCENT 66 % (BEAKER) (test code = 429) LYMPHOCYTES RELATIVE PERCENT 24 % (BEAKER) (test code = 430) MONOCYTES RELATIVE PERCENT 8 % (BEAKER) (test code = 431) EOSINOPHILS RELATIVE PERCENT 1 % (BEAKER) (test code = 432) BASOPHILS RELATIVE PERCENT 1 % (BEAKER) (test code = 437) NEUTROPHILS ABSOLUTE COUNT 5.74 K/ L 1.78-5.38 H (BEAKER) (test code = 670) LYMPHOCYTES ABSOLUTE COUNT 2.09 K/ L 1.32-3.57 (BEAKER) (test code = 414) MONOCYTES ABSOLUTE COUNT (BEAKER) 0.69 K/ L 0.30-0.82 (test code = 415) EOSINOPHILS ABSOLUTE COUNT 0.07 K/ L 0.04-0.54 (BEAKER) (test code = 416) BASOPHILS ABSOLUTE COUNT (BEAKER) 0.05 K/ L 0.01-0.08 (test code = 417) IMMATURE GRANULOCYTES-RELATIVE 1 % 0-1 PERCENT (BEAKER) (test code = 2801) HIGH SENSITIVITY TROPONIN [id number] 21:19:00 Test Item Value Reference Range Interpretation Comments HIGH SENSITIVITY 36 pg/ml See_Comment H [Automated message] TROPONIN I (test code = The system which [id number]) generated this result transmitted ref erence range: <=35. Th e reference range was not used to int erpret this result as normal/abnormal . Sand Analyst ID - CINDY BThe IT SERVICE TECHNICIAN STAT High Sensitivity Troponin-I results should be used in conjunction with other diagnostic information such as ECG, clinical observations and information, and patient symptoms to aid in the diagnosis of NM.HIGH SENSITIVITY TROPONIN [id number] 13:20:00 Test Item Value Reference Range Interpretation Comments HIGH SENSITIVITY 36 pg/ml See_Comment H [Automated message] TROPONIN I (test code = The system which [id number]) generated this result transmitted ref erence range: <=35. Th e reference range was not used to int erpret this result as normal/abnormal . Sand Analyst ID - MARICEL CThe IT SERVICE TECHNICIAN STAT High Sensitivity Troponin-I results should be used in conjunction with other diagnostic information such as ECG, clinical observations and information, and patientsymptoms to aid in the diagnosis of NM. BASIC METABOLIC [id number] 04:46:00 Test Item Value Reference Range Interpretation [...] S NOT APPLICABLE FOR DIALYSIS PATIEN TS. Sand Analyst ID - JAK [id number] 04:46:00 Test Item Value Reference Range Interpretation Comments MAGNESIUM (BEAKER) (test code = 2.1 mg/dL 1.6-2.6 627) Sand Analyst ID - JAK MCBC W/PLT COUNT & AUTO [id number] 04:32:00 Test Item Value Reference Range Interpretation [...] PERCENT (BEAKER) (test code = 2801) CT, [id number] 22:08:00Unlisted Reason for Exam - Click Yes and Enter Reason Below->YesUnlisted Reason for Exam->Evaluate descending aorta calcification to femoral iliac vessels, prior to cabgWill this procedure require oral contrast?->No [facility] : 1955 Sex: MFINAL REPORT CT, ABDOMEN [...] with bilateral common iliac artery stents. Signed:Sharita Pateleptrini Verified Date/Time: 05/03/2021 22:08:57 Reading Location: [address] Transitional Reading Room [id number] 16:21:00 Test Item Value Reference Range Interpretation Comments ACTIVATED CLOTTING TIME 131 sec : 74 -137 seconds, (BEAKER) (test code = Baseli ne: TESTED AT [facility]) [address], [facility] 30: Sand Analyst/Techni jolanta ID = [id number] for ILLORY (V), IGNACIO [id number] 15:12:00 Test Item Value Reference Range Interpretation Comments ACTIVATED CLOTTING TIME 158 sec : 74 -137 seconds, (BEAKER) (test code = Baseli ne: TESTED AT [facility]) [address], [facility] 30: Sand Analyst/Techni jolanta ID = [id number] for ILLORY (V), IGNACIO [id number] 12:13:00 Test Item Value Reference Range Interpretation Comments ACTIVATED CLOTTING TIME 290 sec : 74 -137 seconds, (BEAKER) (test code = Baseli ne: TESTED AT 441) [facility] [address] [facility], [address] 30: Sand Analyst/Techni jolanta ID = [id number] for [place] VIRGINIE FORREST [id number] 12:00:00 Test Item Value Reference Range Interpretation Comments ACTIVATED CLOTTING TIME 252 sec : 74 -137 seconds, (BEAKER) (test code = Kathrine ne: TESTED AT 441) [facility] [address] [facility], [address] 30: Sand Analyst/Techni jolanta ID = [id number] for [place] RPERIKA JOHNSONCEL BASIC METABOLIC [id number] 08:47:00 Test Item Value Reference Range Interpretation [...] S NOT APPLICABLE FOR DIALYSIS PATIEN TS. Sand Analyst ID - AAHAMIDPROTHROMBIN TIME/[id number] 08:38:00 Test Item Value Reference Range Interpretation Comments PROTIME (BEAKER) 13.1 seconds 11.9-14.2 (test code = 759) INR (BEAKER) (test 1.01 See_Comment [Automat ed message] code = 370) The system [employer]ES[employer] generated this result transmitted ref erence range: [...] 0-1 PERCENT (BEAKER) (test code = 2801) SARS-COV2/RT-PCR ([facility])2021-04-29 18:08:00 Test Item Value Reference Range Interpretation Comments SARS-COV2/RT-PCR (test Negative Not Detected, Negative, code = 5620731) See external report for linked test SARS-COV-2 PERFORMING LAB [facility] CRISTIAN (test code = 5497829) Negative result for this test determines that [...] 564(g) of the Act.Fact Sheet for Healthcare Providers:https://www.[employer]/sites/default/files/product/documents/Fact_Vanna lorde_GS_Adbdqwtoe_Vssu_GUAQ-VyA-2.pdfFact Sheet for Healthcare Patients:https://www.[employer]/sites/default/files/product/ documents/Sshz_Avltr_Oofswvys_Fqwd_ZSHO-ZoM-3.pdfPerforming Laboratory:[facility], [place] [address]NZJWE METABOLIC PANEL 2021-04-29 13:20:00 Test Item Value [...] S NOT APPLICABLE FOR DIALYSIS PATIEN TS. Sand Analyst ID - JAK MPROTHROMBIN TIME/[id number] 11:14:00 Test Item Value Reference Range Interpretation Comments PROTIME (BEAKER) 13.3 seconds 11.9-14.2 (test code = 759) INR (BEAKER) (test 1.03 See_Comment [Automat ed message] code = 370) The system [employer] generated this result transmitted ref erence range: [...] 0-1 PERCENT (BEAKER) (test code = 2801) POCT URINALYSIS [id number] 00:00:00 Test Item Value Reference Range Interpretation Comments COLOR UA (test code = 5778-6) Colorless YELLOW/STRAW CLARITY UA (test code = 18988-1) Clear CLEAR GLUCOSE UA (test code = 5792-7) Negative NEGATIVE BILIRUBIN UA (test code = 5770-3) Negative NEGATIVE KETONES UA (test code = 49971-9) Negative NEGATIVE SPECIFIC GRAVITY UA (test code = 1.005-1.035 5811-5) BLOOD UA (test code = 5794-3) Negative NEGATIVE PH UA (test code = 5803-2) 5.0-9.0 PROTEIN UA (test code = 5804-0) Trace NEGATIVE UROBILINOGEN UA (test code = 0.02 E.U/DL NORMAL MG/DL 5818-0) LEUKOCYTE ESTERASE UA (test code Negative NEGATIVE = 5799-2) NITRITE UA (test code = 5802-4) Negative NEGATIVE REDUCING SUBSTANCES URINE (test NEGATIVE code = 02676-5) [facility], [facility] WITH TRANG [id number] 13:53:00 [facility] : 1955 Sex: MFINAL REPORT EXAM: CALCIUM SCORE AND CORONARY CTA INDICATION: Chest pain, acute, nonspecific COMPARISON: None. TECHNIQUE: Multi-detector CT technology was employed ( [employer] CT 750 HD 64 MDCT [employer]). Minimal slice thickness was performed following the [...] 03/22/2021 at 4:45 PM. Signed: Kayla Jesus MDReport VerifiedDate/Time: 03/23/2021 13:53:11 POCT-CREATININE 2021-03-22 10:20:00 Test Item Value Reference Range Interpretation Comments POC-CREATININE 0.9 mg/dL 0.6-1.3 : TESTED AT [facility] ([facility]) (test [address] [facility] code = 1859) A, [facility] 7 3243: Sand Analyst/Techni jolanta ID = [id number] for IRVIN EPPERSON POC-EGFR 85 mL/min/1.73M2 (BEAKER) (test code = 1860) POCT URINALYSIS [id number] 00:00:00 Test Item Value Reference Range Interpretation Comments COLOR UA (test code = 5778-6) Yellow YELLOW/STRAW CLARITY UA (test code = 47533-3) Clear CLEAR GLUCOSE UA (test code = 5792-7) Negative NEGATIVE BILIRUBIN UA (test code = 5770-3) Negative NEGATIVE KETONES UA (test code = 58983-1) Negative NEGATIVE SPECIFIC GRAVITY UA (test code = 1.005-1.035 5811-5) BLOOD UA (test code = 5794-3) Negative NEGATIVE PH UA (test code = 5803-2) 5.0-9.0 PROTEIN UA (test code = 5804-0) Negative NEGATIVE UROBILINOGEN UA (test code = 0.02 E.U/DL NORMAL MG/DL 5818-0) LEUKOCYTE ESTERASE UA (test code Negative NEGATIVE = 5799-2) NITRITE UA (test code = 5802-4) Negative NEGATIVE REDUCING SUBSTANCES URINE (test code = 71694-7) [facility])2021-01-05 02:00:00 Test Item Value Reference Range Interpretation Comments SARS-COV2/RT-PCR (test Negative Not Detected, Negative, code = 2145734) See external report for linked test SARS-COV-2 PERFORMING LAB [facility] (test code = 0679399) Negative result for this test determines that [...] the Arias SARS-CoV-2 assay.Fact Sheet for Healthcare Providers:https://www.Crisp.arias/gisel/ QU_LSAU-LcE-3_ZVZ_Rfty_Auyit_41-198899.pdfFact Sheet for Healthcare Patients:https://www.Crisp.ConnectQuest afia/gisel/BS_AUTV-DdR-7_Plrduqe_Lanw_Jhpsh_VP_60-516107V7.pdfPerforming Laboratory:[address] [address] BASIC METABOLIC [id number] 13:40:00 Test Item Value Reference Range Interpretation [...] S NOT APPLICABLE FOR DIALYSIS PATIEN TS. Sand Analyst ID - JAK MPROTHROMBIN TIME/[id number] 13:21:00 Test Item Value Reference Range Interpretation Comments PROTIME (BEAKER) 12.7 seconds 11.9-14.2 (test code = 759) INR (BEAKER) (test 0.99 See_Comment [Automat ed message] code = 370) The system MES[employer] generated this result transmitted ref erence range: [...] mechanical heart valves.CBC W/PLT COUNT & AUTO [id number] 13:14:00 Test Item Value Reference Range Interpretation [...] 0-1 PERCENT (BEAKER) (test code = 2801) POCT URINALYSIS [id number] 00:00:00 Test Item Value Reference Range Interpretation Comments COLOR UA (test code = 5778-6) Colorless YELLOW/STRAW CLARITY UA (test code = 77987-7) Clear CLEAR GLUCOSE UA (test code = 5792-7) Negative NEGATIVE BILIRUBIN UA (test code = 5770-3) Negative NEGATIVE KETONES UA (test code = 42799-0) Negative NEGATIVE SPECIFIC GRAVITY UA (test code = 1.005-1.035 5811-5) BLOOD UA (test code = 5794-3) Negative NEGATIVE PH UA (test code = 5803-2) 5-9 PROTEIN UA (test code = 5804-0) Trace NEGATIVE UROBILINOGEN UA (test code = 0.02 E.U/DL NORMAL MG/DL 5818-0) LEUKOCYTE ESTERASE UA (test code Negative NEGATIVE = 5799-2) NITRITE UA (test code = 5802-4) Negative NEGATIVE REDUCING SUBSTANCES URINE (test code = 18095-2) [facility], WITHOUT IV [id number] 10:00:00FINAL REPORT History: Numbness and tinglingComparison studies: [...] No Chiari malformation.Vessels: Normal flow-voids in the arteries and sinuses. Known small left supraclinoid ICA [...] MDReport Verified Date/Time: 05/03/2019 10:00:48 Reading Location: [facility] Room [address] [place] [address] CBC W/PLT COUNT & AUTO [id number] 06:59:00 Test Item Value Reference Range Interpretation [...] (BEAKER) (test code = 2801) BASIC METABOLIC [id number] 06:03:00 Test Item Value Reference Range Interpretation [...] NOT APPLICABLE FOR DIALYSIS PATIEN TS. HEMOGLOBIN [id number] 08:52:00 Test Item Value Reference Range Interpretation Comments HEMOGLOBIN A1C (BEAKER) (test code = 5.8 % 4.3-6.1 368) LIPID [id number] 06:11:00 Test Item Value Reference Range Interpretation [...] High 160-189 Very High >=190 FastingBASIC METABOLIC [id number] 06:11:00 Test Item Value Reference Range Interpretation [...] PATIEN TS. FastingCBC W/PLT COUNT & AUTO [id number] 05:06:00 Test Item Value Reference Range Interpretation [...] (test code = 2801) TSH/FREE T4 IF [id number] 19:14:00 Test Item Value Reference Range Interpretation Comments THYROID STIMULATING HORMONE 0.53 uIU/mL 0.35-4.94 (BEAKER) (test code = 772) VITAMIN B12 AND [id number] 19:14:00 Test Item Value Reference Range Interpretation Comments VITAMIN B12 (BEAKER) (test code = 660 pg/mL 213-816 774) FOLATE (BEAKER) (test code = 362) 6.9 ng/mL >=7.0 L BASIC METABOLIC [id number] 18:39:00 Test Item Value Reference Range Interpretation [...] FOR DIALYSIS PATIEN TS. MR, BRAIN, WITHOUT [id number] 16:16:00Reason for exam:->StrokeWhat is the patient's sedation [...] None available. TECHNIQUE: 2 D and 3-D kkyp-et-qdkysu MRA images of the intra- and extracranial [...] is antegrade in both vertebral arteries. MRA [place]: There is a inferiorly [...] MDReport Verified Date/Time: 03/03/2019 16:16:12 Reading Location: [facility] C013 Neuro Reading Room MR, MRA, BRAIN, WITHOUT [id number] 16:16:00Reason for exam:- >Ischemic Stroke EvaluationFINAL REPORT [...] None available. TECHNIQUE: 2 D and 3-D cfdw-pe-pmzogi MRA images of the intra- and extracranial [...] is antegrade in both vertebral arteries. MRA [place]: There is a inferiorly [...] MDReport Verified Date/Time: 03/03/2019 16:16:12 Reading Location: [facility] C013V Neuro Reading Room MR, MRA, NECK, WITHOUT IV [id number] 16:16:00Reason for exam:->Ischemic Stroke EvaluationFINAL REPORT MRI [...] None available. TECHNIQUE: 2 D and 3-D cewc-si-crajyv MRA images of the intra- and extracranial [...] is antegrade in both vertebral arteries. MRA [place]: There is a inferiorly [...] MDReport Verified Date/Time: 03/03/2019 16:16:12 Reading Location: [facility] C013V Neuro Reading Room LIPID [id number] 04:08:00 Test Item Value Reference Range Interpretation [...] High 160-189 Very High >=190 FastingBASIC METABOLIC [id number] 04:08:00 Test Item Value Reference Range Interpretation [...] PATIEN TS. FastingCBC W/PLT COUNT & AUTO [id number] 03:54:00 Test Item Value Reference Range Interpretation [...] = 2801) CBC W/PLT COUNT & AUTO [id number] 20:55:00 Test Item Value Reference Range Interpretation [...] % 0-1 PERCENT (BEAKER) (test code = 2804) BASIC METABOLIC [id number] 20:44:00 Test Item Value Reference Range Interpretation [...]
== END 2021-09-15 19:17 | disposition home or self-care (01) ==
LOC: ER 15:00
DX: R10.31 Right lower quadrant pain (principal); I10 Essential (primary) hypertension; I25.10 Atherosclerotic heart disease of native coronary artery without angina pectoris; E78.5 Hyperlipidemia, unspecified; Z79.899 Other long term (current) drug therapy
CPT/HCPCS: 36415; 74176; 76377; 80048; 81003; 81015; 85025; 99284

== ENCOUNTER 2022-04-17 19:34 | Emergency (ER) | payer OTHER ==
--- OUTSIDE RECORDS SUMMARY | 2022-04-17 19:44 | XMS REPORT | Continuity of Care Document ---
:1955 Author Organization [facility] t Address [address] [place] [address] Care Team Providers Name Role Phone MASOUD BARNARD Primary Care Physician Unavailable Samir Pickett Attending Clinician Unavailable Elaine Attending Clinician Unavailable RADHA CALDERON Attending Clinician Unavailable AR Attending Clinician Unavailable GONZALO JARRELL Attending Clinician Unavailable COREY Attending Clinician Unavailable Corey OGLESBY Attending Clinician TANVI Attending Clinician Unavailable CINDY Attending Clinician Unavailable Gamaliel LOGAN, A Attending Clinician Juma OGLESBY Attending Clinician Trever OGLESBY A Attending Clinician Tanvi OGLESBY Attending Clinician Unavailable JUMA Attending Clinician Unavailable Pili Pereyra MD Attending Clinician Gonzalo Jarrell MD Attending Clinician Cindy OGLESBY Attending Clinician GRIS Attending Clinician Unavailable MARTÍN PARRISH Attending Clinician Unavailable GONZALO JARRELL Attending Clinician Unavailable SARA Attending Clinician Unavailable Sara ESPAÑA Attending Clinician JUMA Attending Clinician Unavailable Christiano OGLESBY Attending Clinician SKIP Attending Clinician Unavailable Duy Steiner MD Attending Clinician Mandeep Tuttle MD Attending Clinician PATEL Attending Clinician Unavailable DEWAYNE SOLIMAN Attending Clinician Unavailable RADHA CALDERON Admitting Clinician Unavailable AR Admitting Clinician Unavailable GONZALO JARRELL Admitting Clinician Unavailable MARY MILLS Admitting Clinician Unavailable PATEL Admitting Clinician Unavailable DEWAYNE SOLIMAN Admitting Clinician Unavailable Payers Payer Name Policy Type Policy Number Effective Date Expiration Date S ricky [facility] [id number] 2019 00:00:00 MEDICARE PART A [id number] \T\ [id number] - MEDICARE [place] [employer] - [id number] [facility] JANET - [id number] [employer] A [id number] 2021 00:00:00 [facility] [id number] 2021 00:00:00 Problems Condition Condition Condition Status Onset Resolution Last Treating Co mments Source Name Details Category Date Date Treatment Clinician Date 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 11-12 [place] depression depression 00:00: of , single , single 00 Medici n episode episode e Nonalcohol Nonalcohol Disease Active [facility] fatty ic fatty 11-12 [facility] liver liver 00:00: of disease disease 00 Medicin e Primary Primary Disease Active [facility] insomnia insomnia 11-12 [facility] e 00:00: of 00 Medicin e Essential Essential Disease Active [facility] hypertensi hypertensi 1-07 Co l[facility] on on 00:00: of 00 Medicin e S/P CABG S/P CABG Disease Active 2020-11 [facility] r (coronary (coronary 0-26 [facility] artery artery 00:00: of bypass bypass 00 Medicin graft) graft) e Scrotolith Scrotolith Disease Active [facility] 8-25 [facility] 00:00: of 00 Medicin e PAD PAD Disease Active [facility] (periphera (periphera 8-09 Co llege l artery l artery 00:00: of disease) disease) 00 Medici n (HCCode) (HCCode) e Coronary Coronary Disease Active [facility] r artery artery 5-18 [place] disease of disease of 00:00: of [place] 00 Medicin artery of artery of e [place] heart 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 (HCCode) (HCCode) Abnormal Abnormal Disease Active [facility] r findings findings 5-18 [facility] on on 00:00: of diagnostic diagnostic 00 Me dicin imaging of imaging of e heart and heart and coronary coronary circulatio circulatio n n Orchitis Orchitis Disease Active [facility] r and and 4-28 [place] epididymit epididymit 00:00: of is is 00 Medicin e Carotid Carotid Disease Active [facility] artery artery 3-28 [facility] disease disease 00:00: of (HCCode) (HCCode) 00 Medici n e S/P S/P Disease Active [facility] angiogram angiogram 3-28 [facility] of of 00:00: of extremity extremity 00 Medi aleksandra e PAD PAD Disease Active [facility] (periphera (periphera 3-05 [facility] llege l artery l artery 00:00: of disease) disease) 00 Medici n (HCCode) (HCCode) e PAD PAD Disease Active [facility] (periphera (periphera 2-01 [facility] l artery l artery 00:00: of disease) disease) 00 Medici n (HCCode) (HCCode) e PVD PVD Disease Active [facility] (periphera (periphera 2-01 [facility] l vascular l vascular 00:00: of disease) disease) 00 Medici n (HCCode) (HCCode) e Benign Benign Disease Active [facility] localized localized 1-27 [facility] prostatic prostatic 00:00: of hyperplasi hyperplasi 00 Me dicin a with a with e lower lower urinary urinary tract tract symptoms symptoms (LUTS) (LUTS) Screening Screening Disease Active [facility] for viral for viral 6-18 [facility] disease disease 00:00: of 00 Medicin e Chest pain Chest pain Disease Active [facility] 6-18 [facility] 00:00: of 00 Medicin e Leg length Leg length Disease Active [facility] discrepanc discrepanc 3-18 [facility] y y 00:00: of 00 Medicin e Right hip Right hip Disease Active [facility] pain pain 3-18 [facility] 00:00: of 00 Medicin e Primary Primary Disease Active [facility] osteoarthr osteoarthr 3-18 [facility] itis of itis of 00:00: of right hip right hip 00 Medi aleksandra e Osteoarthr Osteoarthr Disease Active [facility] itis of itis of 318 [facility] lumbar lumbar 00:00: of spine spine 00 Medicin e Right leg Right leg Disease Active [facility] pain pain 3-18 [facility] 00:00: of 00 Medicin e Hypertensi Hypertensi Disease Active 2018-11 [facility] on on 218 College 00:00: of 00 Medicin e PFO PFO Disease Active 2018-11 [facility] (patent (patent 218 College foramen foramen 00:00: of ovale) ovale) 00 Medicin e Hyperlipid Hyperlipid Disease Active 2018-11 [facility] emia emia 2-18 [facility] 00:00: of 00 Medicin e Numbness Numbness Disease Active 2018-11 [facility] and and 218 [facility] tingling tingling 00:00: of 00 Medicin e TIA TIA Disease Active [facility] (transient (transient 5-03 [facility]lege ischemic ischemic 00:00: of attack) attack) 00 Medicin e Stroke Stroke Disease Active [facility] (cerebrum) (cerebrum) 4-27 Co llege (HCCode) (HCCode) 00:00: of 00 Medicin e 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[facility] 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 00:00: of n n 00 Medicin e Nodule of Nodule of Disease Active [facility] scrotum scrotum 01-03 [place] 00:00: of 00 Medicin e Allergies, Adverse Reactions, Alerts Allergy Allergy Status Severity Reaction(s) Onset Inactive Treating Comm ents Source Name Type Date Date Clinician NO KNOWN Allergy Active [facility] Social History Social Habit Start Date Stop Date Quantity Comments Source History of tobacco Cigarette Smoker [facility] use of Medicine Alcohol intake 2022-04-12 2022-04-12 .86 /d [facility] 00:00:00 00:00:00 of Medicine Tobacco use and 2022-03-29 2022-03-29 Former smokeless [facility] exposure 00:00:00 00:00:00 tobacco user of [facility] Cigarettes smoked 2022-03-29 2022-03-29 [facility] current (pack per 00:00:00 00:00:00 of [facility] cine day) - Reported Cigarette 2022-03-29 2022-03-29 [facility] pack-years 00:00:00 00:00:00 of Medicine Tobacco Comment 2022-03-29 2022-03-29 stopped in 2018 [facility] 00:00:00 00:00:00 of Medicine Exposure to 2022-02-04 2022-02-14 Not sure [facility] Kathy e SARS-CoV-2 (event) 00:00:00 10:28:00 of Med icine Alcohol Comment 2019-10-23 2019-10-23 stopped in 2018 [facility] 00:00:00 00:00:00 of Medicine History [facility] 2018-12-27 2018-12-27 4 [facility] ge Alcohol Frequency 00:00:00 00:00:00 of Medi cine History [facility] 2018-12-27 2018-12-27 4 [facility] Alcohol Std Drinks 00:00:00 00:00:00 of Med icine History [facility] 2018-12-27 2018-12-27 4 [facility] ge Alcohol Binge 00:00:00 00:00:00 of Medicine [birth year] M [facility] 00:00:00 00:00:00 of Medicine Smoking Status Start Date Stop Date Source Ex-smoker 2022-03-29 00:00:00 2022-03-29 00:00:00 Gmaaliel Shay terrell of Medicine Medications Ordered Filled Start Stop Current Ordering Indication Dosage Frequency Signature Comments Components Source Medication Medication Date Date Medication? Clinician (SIG) Name Name Aspirin 81 Yes Gamaliel MG tablet 04-12 College 14:07: of 58 Medicin e pantoprazol Yes 20mg Take 20 mg [facility] e 6-07 by mouth [facility] (PROTONIX) 14:07: daily. of 20 MG 58 Medicin tablet e clonazepam Yes [facility] (KLONOPIN) 04-06 [facility] 0.5 MG 00:00: of tablet 00 Medicin e Aspirin 81 0 Yes Gamaliel MG tablet -24 [place] 14:57: of 55 Medicin e pantoprazol 0 Yes 20mg Take 20 mg Gamaliel e 5-24 by mouth [place] (PROTONIX) 14:57: daily. of 20 MG 55 Medicin tablet e pregabalin 0 Yes 75mg Take 1 [facility] (LYRICA) 75 5-24 capsule by Co llege MG capsule 00:00: mouth two of 00 times Medicin daily. e pregabalin 2021-0 Yes 75mg Take 1 [facility] (LYRICA) 75 5-24 capsule by Co llege MG capsule 00:00: mouth two of 00 times Medicin daily. e Aspirin 81 0 Yes [facility] MG tablet 5-13 [place] 10:16: of 04 Medicin e pantoprazol 0 Yes 20mg Take 20 mg Gamaliel e 5-13 by mouth [facility] (PROTONIX) 10:16: daily. of 20 MG 04 Medicin tablet e Aspirin 81 0 Yes [facility] MG tablet -11 [facility] 14:40: of 02 Medicin e pantoprazol 2021-0 Yes 20mg Take 20 mg [facility] e 5-11 by mouth [place] (PROTONIX) 14:40: daily. of 20 MG 02 Medicin tablet e metoprolol 0 2021- No [id number] Take 1 [facility] (TOPROL-XL) 5-11 05-11 tablet Colle ge 50 MG XL 00:00: 00:00 once a day of tablet 00 :00 Medicin e metoprolol 2021-0 Yes TAKE 1 [facility] (TOPROL-XL) 4-27 TABLET BY Col [facility]ge 25 MG XL 00:00: MOUTH of tablet 00 EVERY DAY Medicin FOR 90 e DAYS metoprolol 2021-0 Yes TAKE 1 [facility] (TOPROL-XL) 4-27 TABLET BY Col [facility] 25 MG XL 00:00: MOUTH of tablet 00 EVERY DAY Medicin FOR 90 e DAYS metoprolol 0 Yes TAKE 1 [facility] (TOPROL-XL) 4-27 TABLET BY [facility] 25 MG XL 00:00: MOUTH of tablet 00 EVERY DAY Medicin FOR 90 e DAYS metoprolol 2021-0 Yes TAKE 1 [facility] (TOPROL-XL) 4-27 TABLET BY [facility] 25 MG XL 00:00: MOUTH of tablet 00 EVERY DAY Medicin FOR 90 e DAYS Aspirin 81 2021-0 Yes Gamaliel MG tablet 4- College 10:58: of 03 Medicin e pantoprazol 2021-0 Yes 20mg Take 20 mg Gamaliel e 11 by mouth [place] (PROTONIX) 10:58: daily. of 20 MG 03 Medicin tablet e Aspirin 81 2021-0 Yes [facility] MG tablet 14 [place] 12:59: of 13 Medicin e pantoprazol 2021-0 Yes 20mg Take 20 mg Gamaliel e -14 by mouth [place] (PROTONIX) 12:59: daily. of 20 MG 13 Medicin tablet e Aspirin 81 2021-0 Yes [facility] MG tablet 14 College 12:59: of 13 Medicin e pantoprazol 2021-0 Yes 20mg Take 20 mg [facility] e -14 by mouth [place] (PROTONIX) 12:59: daily. of 20 MG 13 Medicin tablet e Aspirin 81 2021-0 Yes [facility] MG tablet - College 09:15: of 36 Medicin e pantoprazol 2021-0 Yes 20mg Take 20 mg [facility] e -04 by mouth [place] (PROTONIX) 09:15: daily. of 20 MG 36 Medicin tablet e Aspirin 81 2021-0 Yes Gamaliel MG tablet -12 [place] 13:38: of 09 Medicin e pantoprazol 2021-0 Yes 20mg Take 20 mg Gamaliel e -12 by mouth [place] (PROTONIX) 13:38: daily. of 20 MG 09 Medicin tablet e mirtazapine 2-0 Yes TAKE 1 [facility] (REMERON) 1-08 TABLET BY Colle ge 30 MG 00:00: MOUTH of tablet 00 EVERY DAY Medicin AT BEDTIME e NEEDED mirtazapine 2022-0 Yes TAKE 1 [facility] (REMERON) 1-08 TABLET BY Colle [facility] 30 MG 00:00: MOUTH of tablet 00 EVERY DAY Medicin AT BEDTIME e NEEDED mirtazapine 2022-0 Yes TAKE 1 [facility] (REMERON) 1-08 TABLET BY Colle [facility] 30 MG 00:00: MOUTH of tablet 00 EVERY DAY Medicin AT BEDTIME e NEEDED mirtazapine 2022-0 Yes TAKE 1 [facility] (REMERON) 1-08 TABLET BY Colle [facility] 30 MG 00:00: MOUTH of tablet 00 EVERY DAY Medicin AT BEDTIME e NEEDED mirtazapine 2022-0 Yes TAKE 1 [facility] (REMERON) 1-08 TABLET BY Colle [facility] 30 MG 00:00: MOUTH of tablet 00 EVERY DAY Medicin AT BEDTIME e NEEDED mirtazapine 2022-0 Yes TAKE 1 [facility] (REMERON) 1-08 TABLET BY [facility] 30 MG 00:00: MOUTH of tablet 00 EVERY DAY Medicin AT BEDTIME e NEEDED mirtazapine 2022-0 Yes TAKE 1 [facility] (REMERON) 1-08 TABLET BY Col[facility] 30 MG 00:00: MOUTH of tablet 00 EVERY DAY Medicin AT BEDTIME e NEEDED mirtazapine 2022-0 Yes TAKE 1 [facility] (REMERON) 1-08 TABLET BY Colle [facility] 30 MG 00:00: MOUTH of tablet 00 EVERY DAY Medicin AT BEDTIME e NEEDED Aspirin 81 2-0 Yes [facility] MG tablet 11-12 [place] 16:19: of Medicin e pantoprazol 2-0 Yes 20mg Take 20 mg Gamaliel e 07 by mouth [place] (PROTONIX) 16:19: daily. of 20 MG 06 Medicin tablet e gabapentin 2-0 Yes [id number] 100mg Take 1 [facility] (NEURONTIN) -07 capsule by Co llege 100 MG 00:00: mouth at of capsule 00 bedtime. Medicin e gabapentin 2022-0 Yes [id number] 100mg Take 1 [facility] (NEURONTIN) 1-07 capsule by Co llege 100 MG 00:00: mouth at of capsule 00 bedtime. Medicin e gabapentin 2021-0 Yes [id number] 100mg Take 1 [facility] (NEURONTIN) 1-07 capsule by Co llege 100 MG 00:00: mouth at of capsule 00 bedtime. Medicin e gabapentin 2021-0 Yes [id number] 100mg Take 1 [facility] (NEURONTIN) 1-07 capsule by Co llege 100 MG 00:00: mouth at of capsule 00 bedtime. Medicin e gabapentin 2021-0 Yes [id number] 100mg Take 1 [facility] (NEURONTIN) 1-07 capsule by Co llege 100 MG 00:00: mouth at of capsule 00 bedtime. Medicin e gabapentin 2021-0 2- No [id number] 100mg Take 1 [facility] (NEURONTIN) 1-07 04-11 capsule by C ollege 100 MG 00:00: 00:00 mouth at of capsule 00 :00 bedtime. Medicin e Aspirin 81 2020-11 Yes Gamaliel MG tablet 11-27 [place] 14:41: of 30 Medicin e pantoprazol 2020-11 Yes 20mg Take 20 mg [facility] e 11-27 by [facility] (PROTONIX) 14:41: daily. of 20 MG 30 Medicin tablet e Aspirin 81 2020-11 Yes Gamaliel MG tablet 11-22 [place] 15:15: of 58 Medicin e pantoprazol 2020-11 Yes 20mg Take 20 mg [facility] e 11-22 by [facility] (PROTONIX) 15:15: daily. of 20 MG 58 Medicin tablet e phenazopyri 2020-11 Yes [id number] Take by [facility] 11-22 [facility] (PYRIDIUM) 00:00: every 8 of 200 MG 00 hours PRN. Medicin tablet e phenazopyri 2020-11- No [id number] Take by [facility] 11-22 [facility] (PYRIDIUM) 00:00: 00:00 every 8 of 200 MG 00 :00 hours PRN. Medicin tablet e clopidogrel 2020-11 Yes TAKE 1 [facility] (PLAVIX) 75 -11 TABLET BY Col [facility] MG Tablet 00:00: MOUTH of 00 DAILY Medicin e clopidogrel 2020-11 Yes TAKE 1 [facility] (PLAVIX) 75 1-11 TABLET BY Col [facility] MG Tablet 00:00: MOUTH of 00 DAILY Medicin e clopidogrel 2020-11 Yes TAKE 1 [facility] (PLAVIX) 75 1-11 TABLET BY [facility] MG Tablet 00:00: MOUTH of 00 DAILY Medicin e clopidogrel 2020-11 Yes TAKE 1 [facility] (PLAVIX) 75 1-11 TABLET BY [facility] MG Tablet 00:00: MOUTH of 00 DAILY Medicin e clopidogrel 2020-11 Yes TAKE 1 [facility] (PLAVIX) 75 1-11 TABLET BY [facility] MG Tablet 00:00: MOUTH of 00 DAILY Medicin e clopidogrel 2020-11 Yes TAKE 1 [facility] (PLAVIX) 75 1-11 TABLET BY [facility] MG Tablet 00:00: MOUTH of 00 DAILY Medicin e clopidogrel 2020-11 Yes TAKE 1 [facility] (PLAVIX) 75 1-11 TABLET BY [facility] MG Tablet 00:00: MOUTH of 00 DAILY Medicin e clopidogrel 2020-11 Yes TAKE 1 [facility] (PLAVIX) 75 1-11 TABLET BY [facility] MG Tablet 00:00: MOUTH of 00 DAILY Medicin e clopidogrel 2020-11 Yes TAKE 1 [facility] (PLAVIX) 75 1-11 TABLET BY [facility] MG Tablet 00:00: MOUTH of 00 DAILY Medicin e clopidogrel 2020-11 Yes TAKE 1 [facility] (PLAVIX) 75 1-11 TABLET BY [facility] MG Tablet 00:00: MOUTH of 00 DAILY Medicin e clopidogrel 2020-11 Yes TAKE 1 [facility] (PLAVIX) 75 1-11 TABLET BY [facility] MG Tablet 00:00: MOUTH of 00 DAILY Medicin e clopidogrel 2020-11- No TAKE 1 [facility] (PLAVIX) 75 1-11 06-07 TABLET BY Co llege MG Tablet 00:00: 00:00 MOUTH of 00 :00 DAILY Medicin e Aspirin 2020-11 Yes [facility] (ASPIR-LOW) 0-26 [facility] 81 MG 10:44: of tablet 36 Medicin e pantoprazol 2020-11 Yes 20mg Take 20 mg [facility] e 0-26 by mouth [facility] (PROTONIX) 10:44: daily. of 20 MG 36 Medicin tablet e Aspirin 2020-11 Yes [facility] (ASPIR-LOW) 0-26 [facility] 81 MG 10:44: of tablet 36 Medicin e pantoprazol 2020-11 Yes 20mg Take 20 mg Gamaliel e 0-26 by mouth [facility] (PROTONIX) 10:44: daily. of 20 MG 36 Medicin tablet e Aspirin Yes [facility] (ASPIR-LOW) 8-25 [facility] 81 MG 09:15: of tablet 11 Medicin e pantoprazol Yes 20mg Take 20 mg [facility] e 8-25 by mouth [facility] (PROTONIX) 09:15: daily. of 20 MG 11 Medicin tablet e tramadol 2020- No 50mg Take 50 mg [facility] (ULTRAM) 50 06-30 08-25 by mouth [facility] MG tablet 09:15: 00:00 every 6 of 07 :00 hours as Medicin needed for e Pain. acetaminoph 2020- No 1{tbl} Take 1 [facility] en-codeine 06-30-25 Tablet by Col [facility] (TYLENOL/CO 09:14: 00:00 mouth of DEINE #3) 49 :00 every 4 Medicin 300-30 MG hours as e per tablet needed. clonazepam Yes [facility] (KLONOPIN) 06-28 [facility] 0.5 MG 00:00: of tablet 00 Medicin e mirtazapine Yes [facility] (REMERON) 06-28 [facility] 15 MG 00:00: of tablet 00 Medicin e mirtazapine 0 Yes 30mg 30 mg. [facility] (REMERON) 06-28 [place] 15 MG 00:00: of tablet 00 Medicin e mirtazapine 2020-0 Yes 30mg 30 mg. [facility] (REMERON) 06-28 [facility] 15 MG 00:00: of tablet 00 Medicin e mirtazapine 2020-0 Yes 30mg 30 mg. [facility] (REMERON) 06-28 [place] 15 MG 00:00: of tablet 00 Medicin e mirtazapine 2020-0 Yes 30mg 30 mg. [facility] (REMERON) 06-28 [place] 15 MG 00:00: of tablet 00 Medicin e mirtazapine 0 Yes 30mg 30 mg. [facility] (REMERON) 06-28 [facility] 15 MG 00:00: of tablet 00 Medicin e mirtazapine Yes 30mg 30 mg. [facility] (REMERON) 06-28 [facility] 15 MG 00:00: of tablet 00 Medicin e mirtazapine 2021- No 30mg 30 mg. [facility] (REMERON) 06-2804 [facility] 15 MG 00:00: 00:00 of tablet 00 :00 Medicin e clonazepam 2020- No [facility] (KLONOPIN) 06-28 College 0.5 MG 00:00: 00:00 of tablet 00 :00 Medicin e acetaminoph Yes 1{tbl} Take 1 [facility] en-codeine - Tablet by [facility] (TYLENOL/CO 14:53: mouth of DEINE #3) 47 every 4 Medicin 300-30 MG hours as e per tablet needed. tramadol Yes 50mg Take 50 mg [facility] (ULTRAM) 50 06-24 by mouth [facility] MG tablet 14:53: every 6 of 47 hours as Medicin needed for e Pain. Aspirin Yes [facility] (ASPIR-LOW) 06-24 [place] 81 MG 14:53: of tablet 33 Medicin e pantoprazol Yes 20mg Take 20 mg Gamaliel e 06-24 by mouth [place] (PROTONIX) 14:53: daily. of 20 MG 33 Medicin tablet e amlodipine Yes TAKE 1 [facility] (NORVASC) 8-05 TABLET BY Colle [facility] 10 MG 00:00: MOUTH of tablet 00 EVERY DAY Medicin e amlodipine Yes TAKE 1 [facility] (NORVASC) 8-05 TABLET BY [facility] 10 MG 00:00: MOUTH of tablet 00 EVERY DAY Medicin e amlodipine Yes TAKE 1 [facility] (NORVASC) 8-05 TABLET BY [facility] 10 MG 00:00: MOUTH of tablet 00 EVERY DAY Medicin e amlodipine Yes TAKE 1 [facility] (NORVASC) 8-05 TABLET BY [facility] 10 MG 00:00: MOUTH of tablet 00 EVERY DAY Medicin e amlodipine Yes TAKE 1 [facility] (NORVASC) 8-05 TABLET BY [facility] 10 MG 00:00: MOUTH of tablet 00 EVERY DAY Medicin e amlodipine Yes TAKE 1 [facility] (NORVASC) 8-05 TABLET BY [facility] 10 MG 00:00: MOUTH of tablet 00 EVERY DAY Medicin e amlodipine Yes TAKE 1 [facility] (NORVASC) 8-05 TABLET BY [facility] 10 MG 00:00: MOUTH of tablet 00 EVERY DAY Medicin e amlodipine Yes TAKE 1 [facility] (NORVASC) 8-05 TABLET BY [facility] 10 MG 00:00: MOUTH of tablet 00 EVERY DAY Medicin e amlodipine Yes TAKE 1 [facility] (NORVASC) 8-05 TABLET BY [facility] 10 MG 00:00: MOUTH of tablet 00 EVERY DAY Medicin e amlodipine Yes TAKE 1 [facility] (NORVASC) 8-05 TABLET BY [facility] 10 MG 00:00: MOUTH of tablet 00 EVERY DAY Medicin e amlodipine Yes TAKE 1 [facility] (NORVASC) 8-05 TABLET BY [facility] 10 MG 00:00: MOUTH of tablet 00 EVERY DAY Medicin e amlodipine Yes TAKE 1 [facility] (NORVASC) 8-05 TABLET BY [facility] 10 MG 00:00: MOUTH of tablet 00 EVERY DAY Medicin e amlodipine Yes TAKE 1 [facility] (NORVASC) 8-05 TABLET BY [facility] 10 MG 00:00: MOUTH of tablet 00 EVERY DAY Medicin e amlodipine Yes TAKE 1 [facility] (NORVASC) 8-05 TABLET BY [facility] 10 MG 00:00: MOUTH of tablet 00 EVERY DAY Medicin e amlodipine Yes TAKE 1 [facility] (NORVASC) 8-05 TABLET BY [facility] 10 MG 00:00: MOUTH of tablet 00 EVERY DAY Medicin e Aspirin Yes [facility] (ASPIR-LOW) 7-27 [place] 81 MG 14:58: of tablet 24 Medicin e pantoprazol Yes 20mg Take 20 mg [facility] e 7-27 by mouth [place] (PROTONIX) 14:58: daily. of 20 MG 24 Medicin tablet e gabapentin Yes 300mg Take 300 [facility] (NEURONTIN) 7-27 mg by [place] 300 MG 14:58: mouth 3 of capsule 24 times Medicin daily. e acetaminoph Yes 1{tbl} Take 1 [facility] en-codeine 7-27 Tablet by [facility] (TYLENOL/CO 14:58: mouth of DEINE #3) 24 every 4 Medicin 300-30 MG hours as e per tablet needed. tramadol 0 Yes 50mg Take 50 mg [facility] (ULTRAM) 50 7-27 by mouth [facility] MG tablet 14:58: every 6 of 24 hours as Medicin needed for e Pain. atorvastati Yes [id number] 40mg Take 1 Gam[facility]iel n (LIPITOR) 7-27 Tablet by Col [facility] 40 MG 00:00: mouth of tablet 00 daily. Medicin e atorvastati Yes [id number] 40mg Take 1 [facility] n (LIPITOR) 7-27 Tablet by [facility] 40 MG 00:00: mouth of tablet 00 daily. Medicin e atorvastati Yes [id number] 40mg Take 1 [facility] (LIPITOR) 7-27 Tablet by Col [facility] 40 MG 00:00: mouth of tablet 00 daily. Medicin e metoprolol Yes [id number] 50mg Take 1 [facility] (TOPROL-XL) 7-27 Tablet by Col [facility] 50 MG XL 00:00: mouth two of tablet 00 times Medicin daily. e atorvastati Yes [id number] 40mg Take 1 [facility] (LIPITOR) 7-27 Tablet by [facility] 40 MG 00:00: mouth of tablet 00 daily. Medicin e metoprolol Yes [id number] 50mg Take 1 [facility] (TOPROL-XL) 7-27 Tablet by [facility] 50 MG XL 00:00: mouth two of tablet 00 times Medicin daily. e atorvastati Yes [id number] 40mg Take 1 [facility]iel n (LIPITOR) 7-27 Tablet by [facility] 40 MG 00:00: mouth of tablet 00 daily. Medicin e metoprolol Yes [id number] 50mg Take 1 [facility] (TOPROL-XL) 7-27 Tablet by [facility] 50 MG XL 00:00: mouth two of tablet 00 times Medicin daily. e atorvastati 2020-0 Yes [id number] 40mg Take 1 [facility] (LIPITOR) 7-27 Tablet by Col [facility] 40 MG 00:00: mouth of tablet 00 daily. Medicin e metoprolol 2020-0 Yes [id number] 50mg Take 1 [facility] (TOPROL-XL) 7-27 Tablet by Col [facility] 50 MG XL 00:00: mouth two of tablet 00 times Medicin daily. e atorvastati 2020-0 Yes [id number] 40mg Take 1 [facility] n (LIPITOR) 7-27 Tablet by [facility] 40 MG 00:00: mouth of tablet 00 daily. Medicin e metoprolol 2020-0 Yes [id number] 50mg Take 1 [facility] (TOPROL-XL) 7-27 Tablet by Col [facility] 50 MG XL 00:00: mouth two of tablet 00 times Medicin daily. e atorvastati 2020-0 Yes [id number] 40mg Take 1 [facility] n (LIPITOR) 7-27 Tablet by [facility] 40 MG 00:00: mouth of tablet 00 daily. Medicin e metoprolol 2020-0 Yes [id number] 50mg Take 1 [facility] (TOPROL-XL) 7-27 Tablet by [facility] 50 MG XL 00:00: mouth two of tablet 00 times Medicin daily. e atorvastati 2020-0 Yes [id number] 40mg Take 1 [facility] n (LIPITOR) 7-27 Tablet by [facility] 40 MG 00:00: mouth of tablet 00 daily. Medicin e metoprolol 2020-0 Yes [id number] 50mg Take 1 [facility] (TOPROL-XL) 7-27 Tablet by Col [facility] 50 MG XL 00:00: mouth two of tablet 00 times Medicin daily. e atorvastati 2020-0 Yes [id number] 40mg Take 1 [facility] n (LIPITOR) 7-27 Tablet by [facility] 40 MG 00:00: mouth of tablet 00 daily. Medicin e metoprolol 2020-0 Yes [id number] 50mg Take 1 [facility] (TOPROL-XL) 7-27 Tablet by Col [facility] 50 MG XL 00:00: mouth two of tablet 00 times Medicin daily. e atorvastati 2020-0 Yes [id number] 40mg Take 1 [facility] n (LIPITOR) 7-27 Tablet by [facility] 40 MG 00:00: mouth of tablet 00 daily. Medicin e metoprolol 2020-0 Yes [id number] 50mg Take 1 [facility] (TOPROL-XL) 7-27 Tablet by [facility] 50 MG XL 00:00: mouth two of tablet 00 times Medicin daily. e atorvastati 2020-0 Yes [id number] 40mg Take 1 [facility] (LIPITOR) 7-27 Tablet by [facility] 40 MG 00:00: mouth of tablet 00 daily. Medicin e metoprolol 2020-0 Yes [id number] 50mg Take 1 [facility] (TOPROL-XL) 7-27 Tablet by [facility] 50 MG XL 00:00: mouth two of tablet 00 times Medicin daily. e atorvastati 2020-0 Yes [id number] 40mg Take 1 [facility] (LIPITOR) 7-27 Tablet by [facility] 40 MG 00:00: mouth of tablet 00 daily. Medicin e metoprolol 2020-0 Yes [id number] 50mg Take 1 [facility] (TOPROL-XL) 7-27 Tablet by Col [facility] 50 MG XL 00:00: mouth two of tablet 00 times Medicin daily. e atorvastati 2020-0 Yes [id number] 40mg Take 1 [facility] n (LIPITOR) 7-27 Tablet by [facility] 40 MG 00:00: mouth of tablet 00 daily. Medicin e metoprolol 2020-0 Yes [id number] 50mg Take 1 [facility] (TOPROL-XL) 7-27 Tablet by [facility] 50 MG XL 00:00: mouth two of tablet 00 times Medicin daily. e atorvastati 2020-0 Yes [id number] 40mg Take 1 [facility] n (LIPITOR) 7-27 Tablet by [facility] 40 MG 00:00: mouth of tablet 00 daily. Medicin e metoprolol 2020-0 Yes [id number] 50mg Take 1 [facility] (TOPROL-XL) 7-27 Tablet by [facility] 50 MG XL 00:00: mouth two of tablet 00 times Medicin daily. e atorvastati 2020-0 Yes [id number] 40mg Take 1 [facility] n (LIPITOR) 7-27 Tablet by [facility] 40 MG 00:00: mouth of tablet 00 daily. Medicin e atorvastati Yes [id number] 40mg Take 1 [facility] (LIPITOR) 06-01 Tablet by [facility] 40 MG 00:00: mouth of tablet 00 daily. Medicin e metoprolol 2020- No [id number] TAKE 1 [facility] (TOPROL-XL) 05-14 TABLET BY [facility] 50 MG XL 00:00: 00:00 MOUTH of tablet 00 :00 EVERY DAY Medicin e gabapentin Yes 300mg Take 300 [facility] (NEURONTIN) 04-14 mg by [place] 300 MG 15:11: mouth 3 of capsule 22 times Medicin daily. e Aspirin Yes [facility] (ASPIR-LOW) 04-14 [place] 81 MG 15:10: of tablet 47 Medicin e pantoprazol Yes 20mg Take 20 mg [facility] e 04-14 by mouth [place] (PROTONIX) 15:10: daily. of 20 MG 47 Medicin tablet e mirtazapine 2020- No 1{tbl} Take 1 [facility] (REMERON) 04-14 Tablet by [facility] 7.5 MG 15:10: 00:00 mouth of tablet 17 :00 daily. Medicin e busPIRone 2020- No 1{tbl} Take 1 [facility] (BUSPAR) 04-14 Tablet by [facility] 7.5 MG 15:09: 00:00 mouth of tablet 47 :00 daily. Medicin e clopidogrel 2020- No 75mg Take 1 [facility] (PLAVIX) 75 04-02- Tablet by [facility] MG Tablet 00:00: 04:59 mouth of 00 :00 daily for Medicin 90 doses. e clopidogrel 2020- No 75mg Take 1 [facility] (PLAVIX) 75 04-02- Tablet by [facility] MG Tablet 00:00: 04:59 mouth of 00 :00 daily for Medicin 90 doses. e clopidogrel 2020- No 75mg Take 1 [facility] (PLAVIX) 75 04-02- Tablet by [facility] MG Tablet 00:00: 04:59 mouth of 00 :00 daily for Medicin 90 doses. e clopidogrel 2020- No 75mg Take 1 [facility] (PLAVIX) 75 5-28 08-27 Tablet by [facility] MG Tablet 00:00: 04:59 mouth of 00 :00 daily for Medicin 90 doses. e clopidogrel 0 2020- No 75mg Take 1 [facility] (PLAVIX) 75 5-28 08-27 Tablet by [facility] MG Tablet 00:00: 04:59 mouth of 00 :00 daily for Medicin 90 doses. e Aspirin 0 Yes [facility] (ASPIR-LOW) 4-28 [facility] 81 MG 17:15: of tablet 19 Medicin e pantoprazol 0 Yes 20mg Take 20 mg [facility] e 4-28 by mouth [place] (PROTONIX) 17:15: daily. of 20 MG 19 Medicin tablet e mirtazapine Yes 1{tbl} Take 1 [facility] (REMERON) 4-28 Tablet by [facility] 7.5 MG 17:15: mouth of tablet 19 daily. Medicin e busPIRone Yes 1{tbl} Take 1 [facility] (BUSPAR) 4-28 Tablet by [facility] 7.5 MG 17:15: mouth of tablet 19 daily. Medicin e Aspirin Yes [facility] (ASPIR-LOW) 4-28 [place] 81 MG 12:15: of tablet 19 Medicin e pantoprazol 0 Yes 20mg Take 20 mg [facility] e 4-28 by mouth [place] (PROTONIX) 12:15: daily. of 20 MG 19 Medicin tablet e mirtazapine Yes 1{tbl} Take 1 [facility] (REMERON) 4-28 Tablet by [facility] 7.5 MG 12:15: mouth of tablet 19 daily. Medicin e busPIRone 0 Yes 1{tbl} Take 1 [facility] (BUSPAR) 4-28 Tablet by [facility] 7.5 MG 12:15: mouth of tablet 19 daily. Medicin e meloxicam Yes [id number] 15mg Take 1 [facility] (MOBIC) 15 4-28 Tablet by [facility] MG tablet 00:00: mouth of 00 daily. Medicin e meloxicam Yes [id number] 15mg Take 1 [facility] (MOBIC) 15 03-03 Tablet by [facility] MG tablet 00:00: mouth of 00 daily. Medicin e meloxicam 2020- No [id number] 15mg Take 1 [facility] (MOBIC) 15 03-03 06-09 Tablet by [facility] MG tablet 00:00: 00:00 mouth of 00 :00 daily. Medicin e levofloxaci 2020-2020- No [id number] 500mg Take 1 [facility] n 03-03-13 Tablet by [place] (LEVAQUIN) 00:00: 04:59 mouth of 500 MG 00 :00 daily for Medicin tablet 14 days. e Aspirin Yes [facility] (ASPIR-LOW) 02-16 [place] 81 MG 14:34: of tablet 32 Medicin e pantoprazol Yes 20mg Take 20 mg [facility] 02-16 by mouth [place] (PROTONIX) 14:34: daily. of 20 MG 32 Medicin tablet e metoprolol Yes [id number] 50mg Take 1 [facility] (TOPROL-XL) -13 Tablet by [facility] 50 MG XL 00:00: mouth of tablet 00 daily. Medicin e metoprolol Yes [id number] 50mg Take 1 [facility] (TOPROL-XL) 4-13 Tablet by [facility] 50 MG XL 00:00: mouth of tablet 00 daily. Medicin e metoprolol Yes [id number] 50mg Take 1 [facility] (TOPROL-XL) 4-13 Tablet by [facility] 50 MG XL 00:00: mouth of tablet 00 daily. Medicin e metoprolol Yes [id number] 50mg Take 1 [facility] (TOPROL-XL) 4-13 Tablet by [facility] 50 MG XL 00:00: mouth of tablet 00 daily. Medicin e clopidogrel 2020-2021- No 75mg Take 75 mg [facility] (PLAVIX) 75 01-08-06 by mouth. [facility] MG Tablet 00:00: 05:59 of 00 :00 Medicin e clopidogrel 2020-0 2021- No 75mg Take 75 mg [facility] (PLAVIX) 75 01-08-06 by mouth. [facility] MG Tablet 00:00: 05:59 of 00 :00 Medicin e topiramate Yes 1{tbl} Take 1 [facility] (TOPAMAX) 2-25 Tablet by [facility] 50 MG 00:00: mouth of tablet 00 daily. Medicin e topiramate Yes 1{tbl} Take 1 [facility] (TOPAMAX) 2-25 Tablet by [facility] 50 MG 00:00: mouth of tablet 00 daily. Medicin e topiramate 2020- No 1{tbl} Take 1 [facility] (TOPAMAX) 2-25 06-09 Tablet by [facility] 50 MG 00:00: 00:00 mouth of tablet 00 :00 daily. Medicin e Aspirin Yes [facility] (ASPIR-LOW) 2-01 [facility] 81 MG 15:45: of tablet 46 Medicin e Aspirin Yes [facility] (ASPIR-LOW) 2- [facility] 81 MG 15:45: of tablet 46 Medicin e omeprazole 2020- No 40mg Take 40 mg [facility] (PRILOSEC) 1-27 12-02 by mouth. [facility] 40 MG 20:58: [...] Medicin e atorvastati 2020- No TAKE 1 [facility] n (LIPITOR) 1-19 04-13 TABLET BY [facility] 10 MG 00:00: 00:00 MOUTH of tablet 00 :00 EVERY DAY Medicin e losartan Yes TAKE 1 [facility] (COZAAR) 1-14 TABLET BY [facility] 100 MG 00:00: MOUTH of tablet 00 EVERY DAY Medicin e losartan Yes TAKE 1 [facility] (COZAAR) 1-14 TABLET BY [facility] 100 MG 00:00: MOUTH of tablet 00 EVERY DAY Medicin e losartan 2020-0 Yes TAKE 1 [facility] (COZAAR) 1-14 TABLET BY [facility] 100 MG 00:00: MOUTH of tablet 00 EVERY DAY Medicin e losartan 2020-0 Yes TAKE 1 [facility] (COZAAR) 1-14 TABLET BY [facility] 100 MG 00:00: MOUTH of tablet 00 EVERY DAY Medicin e losartan 0 Yes TAKE 1 [facility] (COZAAR) 1-14 TABLET BY [facility] 100 MG 00:00: MOUTH of tablet 00 EVERY DAY Medicin e losartan 2020-0 Yes TAKE 1 [facility] (COZAAR) 1-14 TABLET BY [facility] 100 MG 00:00: MOUTH of tablet 00 EVERY DAY Medicin e losartan 2020-0 Yes TAKE 1 [facility] (COZAAR) 1-14 TABLET BY [facility] 100 MG 00:00: MOUTH of tablet 00 EVERY DAY Medicin e losartan 0 Yes TAKE 1 [facility] (COZAAR) 1-14 TABLET BY [facility] 100 MG 00:00: MOUTH of tablet 00 EVERY DAY Medicin e losartan 2020-0 Yes TAKE 1 [facility] (COZAAR) 1-14 TABLET [facility] 100 MG 00:00: MOUTH of tablet 00 EVERY DAY Medicin e losartan 2020-0 Yes TAKE 1 [facility] (COZAAR) 1-14 TABLET [facility] 100 MG 00:00: MOUTH of tablet 00 EVERY DAY Medicin e losartan 2020-0 Yes TAKE 1 [facility] (COZAAR) 1-14 TABLET BY [facility] 100 MG 00:00: MOUTH of tablet 00 EVERY DAY Medicin e losartan 2020-0 Yes TAKE 1 [facility] (COZAAR) 1-14 TABLET BY [facility] 100 MG 00:00: MOUTH of tablet 00 EVERY DAY Medicin e losartan 2020-0 Yes TAKE 1 [facility] (COZAAR) 1-14 TABLET BY [facility] 100 MG 00:00: MOUTH of tablet 00 EVERY DAY Medicin e losartan 2020-0 Yes TAKE 1 [facility] (COZAAR) 1-14 TABLET BY [facility] 100 MG 00:00: MOUTH of tablet 00 EVERY DAY Medicin e losartan 2020-0 Yes TAKE 1 [facility] (COZAAR) 1-14 TABLET BY [facility] 100 MG 00:00: MOUTH of tablet 00 EVERY DAY Medicin e losartan 0 Yes TAKE 1 [facility] (COZAAR) 1-14 TABLET BY [facility] 100 MG 00:00: MOUTH of tablet 00 EVERY DAY Medicin e losartan 0 Yes TAKE 1 [facility] (COZAAR) 1-14 TABLET BY [facility] 100 MG 00:00: MOUTH of tablet 00 EVERY DAY Medicin e losartan 0 Yes TAKE 1 [facility] (COZAAR) 1-14 TABLET BY [facility] 100 MG 00:00: MOUTH of tablet 00 EVERY DAY Medicin e losartan 0 Yes TAKE 1 [facility] (COZAAR) 1-14 TABLET BY [facility] 100 MG 00:00: MOUTH of tablet 00 EVERY DAY Medicin e losartan 0 Yes TAKE 1 [facility] (COZAAR) 1-14 TABLET BY [facility] 100 MG 00:00: MOUTH of tablet 00 EVERY DAY Medicin e losartan 0 Yes TAKE 1 [facility] (COZAAR) 1-14 TABLET BY [facility] 100 MG 00:00: MOUTH of tablet 00 EVERY DAY Medicin e losartan 0 Yes TAKE 1 [facility] (COZAAR) 1-14 TABLET BY [facility] 100 MG 00:00: MOUTH of tablet 00 EVERY DAY Medicin e losartan 0 Yes TAKE 1 [facility] (COZAAR) 1-14 TABLET BY [facility] 100 MG 00:00: MOUTH of tablet 00 EVERY DAY Medicin e losartan 0 Yes TAKE 1 [facility] (COZAAR) 1-14 TABLET BY [facility] 100 MG 00:00: MOUTH of tablet 00 EVERY DAY Medicin e cyclobenzap 0 Yes TAKE 1 [facility] 1-13 TABLET BY [place] (FLEXERIL) 00:00: MOUTH of 10 MG 00 THREE Medicin tablet TIMES A e DAY NEEDED cyclobenzap 0 Yes TAKE 1 [facility] 1-13 TABLET BY [place] (FLEXERIL) 00:00: MOUTH of 10 MG 00 THREE Medicin tablet TIMES A e DAY NEEDED cyclobenzap 2020-0 Yes TAKE 1 [facility] 1-13 TABLET BY [place] (FLEXERIL) 00:00: MOUTH of 10 MG 00 [...] NEEDED cyclobenzap 2021-0 2021- No TAKE 1 [facility] rine 1-13 10-13 TABLET BY [facility] [...] tablet e magnesium 2021-0 Yes TAKE 1 [facility] oxide 1-04 TABLET BY [facility] (MAG-OX) 00:00: MOUTH of 400 MG 00 EVERY DAY Medicin tablet e magnesium 2021-0 Yes TAKE 1 [facility] oxide 1-04 TABLET BY [facility] (MAG-OX) 00:00: MOUTH of 400 MG 00 EVERY DAY Medicin tablet e magnesium Yes TAKE 1 [facility] oxide 1-04 TABLET BY [place] ([facility] 00:00: MOUTH of 400 MG 00 EVERY DAY Medicin tablet e magnesium Yes TAKE 1 [facility] oxide 1-04 TABLET BY [place] ([facility] 00:00: MOUTH of 400 MG 00 EVERY DAY Medicin tablet e magnesium 2020- No TAKE 1 [facility] oxide 1-04 06-09 TABLET BY [place] ([facility]) 00:00: 00:00 MOUTH of 400 MG [...] omeprazole 2019-11- No 20mg Take 20 mg [facility] (PRILOSEC) 2-29 06-09 by mouth [facility] [...] NIGHT e lactulose 2019-11 Yes TAKE BY [facility] (CHRONULAC) 1-24 MOUTH 60 [facility] 10 GM/15ML 00:00: MILLILIGTE o f solution 00 R EVERY Medicin NIGHT e lactulose 2019-11 Yes TAKE BY [facility] (CHRONULAC) 11-29 MOUTH 60 [facility] 10 GM/15ML 00:00: MILLILIGTE o f solution 00 R EVERY Medicin NIGHT e lactulose 2019-11 Yes TAKE BY [facility] (CHRONULAC) 11-29 MOUTH 60 [facility] 10 GM/15ML 00:00: MILLILIGTE o f solution 00 R EVERY Medicin NIGHT e lactulose 2019-11- No TAKE BY [facility] (CHRONULAC) 11-29 MOUTH 60 [facility] 10 GM/15ML 00:00: 00:00 MILLILIGTE of solution 00 :00 R EVERY Medicin NIGHT e omeprazole 2019-11 Yes 40mg Take 40 mg [facility] (PRILOSEC) 0-01 by mouth. [facility] 40 MG 19:11: of capsule 14 Medicin e Aspirin 2019-11 Yes [facility] (ASPIR-LOW) 0-01 [facility] 81 MG 19:11: of tablet 14 Medicin e omeprazole 2019-11 Yes 40mg Take 40 mg [facility] (PRILOSEC) 0-01 by mouth. [facility] 40 MG 19:11: of capsule 14 Medicin e Aspirin 2019- Yes [facility] (ASPIR-LOW) 0-01 [facility] 81 MG 19:11: of tablet 14 Medicin e Aspirin 2019- Yes [facility] (ASPIR-LOW) 0-01 [facility] 81 MG 19:11: of tablet 14 Medicin e omeprazole 2020-0 Yes 40mg Take 40 mg [facility] (PRILOSEC) 6-18 by mouth. [facility] 40 MG 16:35: of capsule 38 Medicin e omeprazole 2020-0 Yes 40mg Take 40 mg [facility] (PRILOSEC) 3-18 by mouth. [facility] 40 MG 14:47: of capsule 31 Medicin e atorvastati 2018-11 Yes [id number] 20mg Take 1 Tab [facility] n (LIPITOR) 2-18 by mouth [facility] 20 MG 00:00: daily. of tablet 00 Medicin e atorvastati 2018-11 Yes [id number] 20mg Take 1 Tab [facility] n (LIPITOR) 2-18 by mouth [facility] 20 MG 00:00: daily. of tablet 00 Medicin e atorvastati 2018-11 Yes [id number] 20mg Take 1 Tab [facility] n (LIPITOR) 2-18 by mouth [facility] 20 MG 00:00: daily. of tablet 00 Medicin e atorvastati 2018-11 Yes [id number] 20mg Take 1 Tab [facility] n (LIPITOR) 2-18 by mouth [facility] 20 MG 00:00: daily. of tablet 00 Medicin e atorvastati 2018-11 Yes [id number] 20mg Take 1 Tab [facility] n (LIPITOR) 2-18 by mouth [facility] 20 MG 00:00: daily. of tablet 00 Medicin e atorvastati 2018-11 Yes [id number] 20mg Take 1 Tab [facility] n (LIPITOR) 2-18 by mouth [facility] 20 MG 00:00: daily. of tablet 00 Medicin e atorvastati 2018-11 Yes [id number] 20mg Take 1 Tab [facility] n (LIPITOR) 2-18 by mouth [facility] 20 MG 00:00: daily. of tablet 00 Medicin e atorvastati 2018-11 Yes [id number] 20mg Take 1 Tab [facility] n (LIPITOR) 2-18 by mouth [facility] 20 MG 00:00: daily. of tablet 00 Medicin e atorvastati 2018-11 Yes [id number] 20mg Take 1 Tab [facility] n (LIPITOR) 2-18 by mouth [facility] 20 MG 00:00: daily. of tablet 00 Medicin e atorvastati 2018-11 Yes [id number] 20mg Take 1 Tab [facility] n (LIPITOR) 2-18 by mouth [facility] 20 MG 00:00: daily. of tablet 00 Medicin e atorvastati 2018-11 Yes [id number] 20mg Take 1 Tab [facility] n (LIPITOR) 2-18 by mouth [facility] 20 MG 00:00: daily. of tablet 00 Medicin e atorvastati 2018-11- No [id number] 20mg Take 1 Tab [facility] n (LIPITOR) 2-18 07-27 by mouth [facility] 20 MG 00:00: 00:00 daily. of tablet 00 :00 Medicin e atorvastati 2018-11 Yes 10mg Take 10 mg [facility] n (LIPITOR) 0-11 by mouth. [facility] 10 MG 18:00: of tablet 28 Medicin e omeprazole 2018-11 Yes 40mg Take 40 mg [facility] (PRILOSEC) 0-11 by mouth. [facility] 40 MG 18:00: of capsule 28 Medicin e MethylPREDN MethylPREDN Yes Jorge as Common ISolone ISolone 07-25 [facility] directed [facility] 00:[facility]: - [facility] 00 [facility] Tramadol Tramadol Yes Jorge as [facility]mon HCl HCl 07-09 [facility] directed [facility] 00:00: - [facility] 00 [facility] hydrOXYzine Yes 25mg Take 1 Tab [facility] (ATARAX) 25 6- by mouth 3 [facility]lege MG tablet [...] BEDTIME NEEDED mirtazapine 2020- No TAKE 1 [facility] (REMERON) 5-09 02-01 TABLET (30 [facility] 30 MG 00:00: [...] 00 EVERY DAY Medicin e folic acid 2019- No TAKE 1 [facility] (FOLVITE) 1 5-04 03-18 TABLET BY Co [facility] MG tablet 00:00: 00:00 MOUTH of 00 :00 EVERY DAY Medicin e aspirin EC 2019- No 81mg Take 81 mg [facility] 81 MG 30 -30 by mouth. College [...] DAY Medicin e losartan Yes TAKE 1 [facility] (COZAAR) 50 1-08 TABLET BY [facility] MG tablet 00:00: MOUTH of 00 EVERY DAY Medicin e amlodipine Yes TAKE 1 [facility] (NORVASC) 1-08 TABLET BY [facility] 10 MG 00:00: MOUTH of tablet 00 EVERY DAY Medicin e amlodipine 2019 Yes TAKE 1 [facility] (NORVASC) 1-08 [...] DAY Medicin e losartan Yes TAKE 1 [facility] (COZAAR) 50 1-08 TABLET BY [facility] MG tablet 00:00: MOUTH of 00 EVERY DAY Medicin e amlodipine 2020- No TAKE 1 [facility] (NORVASC) 1-08 08-25 TABLET BY [facility] 10 MG 00:00: 00:00 MOUTH of tablet 00 :00 EVERY DAY Medicin e losartan 2019-0 2020- No TAKE 1 [facility] (COZAAR) 50 11-13 TABLET BY [facility] MG tablet 00:00: 00:00 MOUTH of 00 :00 EVERY DAY Medicin e Omeprazole Omeprazole Yes Jorge not Common Leonard defined [facility] Aspirin 81 Aspirin 81 Yes Jorge not Common Leonard defined [facility] atorvastati atorvastati Yes Jorge not Common n n Leonard defined [facility] Amlodipine Amlodipine Yes Jorge not Common Besylate Besylate Leonard defined [facility] Losartan Losartan Yes Jorge not Comm on Potassium Potassium Leonard defined [facility] Folic Acid Folic Acid Yes Jorge not Common [facility] defined [facility] Clindamycin Clindamycin Yes Jorge not Common HCl HCl Leonard defined [facility] BusPIRone BusPIRone Yes Jorge not Co mmon HCl HCl Leonard defined [facility] Mirtazapine Mirtazapine Yes Jorge not Common Leonard defined [facility] Atorvastati Atorvastati Yes Jorge not Common n Calcium n Calcium Leonard defined [facility] MAGnesium-O MAGnesium-O Yes Jorge not Common xide xide Leonard defined [facility] Flucelvax Flucelvax Yes Jorge not Co mmon Quadrivalen Quadrivalen Leonard defined [facility] Baclofen Baclofen Yes Jorge not Comm on Leonard defined [facility] Immunizations Ordered Immunization Filled Immunization Date Status Commen ts Source Name Name Influenza 2021-08-04 Completed [facility] Intradermal 00:00:00 of Medicine Influenza 2021-08-04 Completed [facility] Intradermal 00:00:00 of Medicine Influenza 2021-08-04 Completed [facility] Intradermal 00:00:00 of Medicine Influenza 2021-08-04 Completed [facility] Intradermal 00:00:00 of Medicine Influenza 2021-08-04 Completed [facility] Intradermal 00:00:00 of Medicine Influenza 2021-08-04 Completed [facility] Intradermal 00:00:00 of Medicine Influenza 2021-08-04 Completed [facility] Intradermal 00:00:00 of Medicine Influenza 2021-08-04 Completed [facility] Intradermal 00:00:00 of Medicine Influenza 2021-08-04 Completed [facility] Intradermal 00:00:00 of Medicine Influenza 2021-08-04 Completed [facility] Intradermal 00:00:00 of Medicine Influenza 2021-08-04 Completed [facility] Intradermal 00:00:00 of Medicine Influenza 2021-08-04 Completed [facility] Intradermal 00:00:00 of Medicine Influenza 2021-08-04 Completed [facility] Intradermal 00:00:00 of Medicine Influenza 2021-08-04 Completed [facility] Intradermal 00:00:00 of Medicine Influenza Quad-PF 2020-07-16 Completed [facility] 00:00:00 of Medicine Influenza Quad-PF 2020-07-16 Completed [facility] 00:00:00 of Medicine Influenza Quad-PF 2020-07-16 Completed [facility] 00:00:00 of Medicine Influenza Quad-PF 2020-07-16 Completed [facility] 00:00:00 of Medicine Influenza Quad-PF 2020-07-16 Completed [facility] 00:00:00 of Medicine Influenza Quad-PF 2020-07-16 Completed [facility] 00:00:00 of Medicine Influenza Quad-PF 2020-07-16 Completed [facility] 00:00:00 of Medicine Influenza Quad-PF 2020-07-16 Completed [facility] 00:00:00 of Medicine Influenza Quad-PF 2020-07-16 Completed [facility] 00:00:00 of Medicine Influenza Quad-PF 2020-07-16 Completed [facility] 00:00:00 of Medicine Influenza Quad-PF 2020-07-16 Completed [facility] 00:00:00 of Medicine Influenza Quad-PF 2020-07-16 Completed [facility] 00:00:00 of Medicine Influenza Quad-PF 2020-07-16 Completed [facility] 00:00:00 of Medicine Influenza Quad-PF 2020-07-16 Completed [facility] 00:00:00 of Medicine Influenza Quad-PF 2020-07-16 Completed [facility] 00:00:00 of Medicine Influenza Quad-PF 2020-07-16 Completed [facility] 00:00:00 of Medicine Influenza Quad-PF 2020-07-16 Completed [facility] 00:00:00 of Medicine Influenza Quad-PF 2020-07-16 Completed [facility] 00:00:00 of Medicine Influenza Quad-PF 2020-07-16 Completed [facility] 00:00:00 of Medicine Influenza Quad-PF 2020-07-16 Completed [facility] 00:00:00 of Medicine Influenza Quad-PF 2020-07-16 Completed [facility] 00:00:00 of Medicine Influenza Quad-PF 2020-07-16 Completed [facility] 00:00:00 of Medicine Influenza Quad-PF 2020-07-16 Completed [facility] 00:00:00 of Medicine Influenza Quad-PF 2020-07-16 Completed [facility] 00:00:00 of Medicine Influenza Quad-PF 2020-07-16 Completed [facility] 00:00:00 of Medicine Influenza Quad-PF 2020-07-16 Completed [facility] 00:00:00 of Medicine Influenza Quad-PF 2019-07-07 Completed [facility] 00:00:00 of Medicine Influenza Quad-PF 2019-07-07 Completed [facility] 00:00:00 of Medicine Influenza Quad-PF 2019-07-07 Completed [facility] 00:00:00 of Medicine Influenza Quad-PF 2019-07-07 Completed [facility] 00:00:00 of Medicine Influenza Quad-PF 2019-07-07 Completed [facility] 00:00:00 of Medicine Influenza Quad-PF 2019-07-07 Completed [facility] 00:00:00 of Medicine Influenza Quad-PF 2019-07-07 Completed [facility] 00:00:00 of Medicine Influenza Quad-PF 2019-07-07 Completed [facility] 00:00:00 of Medicine Influenza Quad-PF 2019-07-07 Completed [facility] 00:00:00 of Medicine Influenza Quad-PF 2019-07-07 Completed [facility] 00:00:00 of Medicine Influenza Quad-PF 2019-07-07 Completed [facility] 00:00:00 of Medicine Influenza Quad-PF 2019-07-07 Completed [facility] 00:00:00 of Medicine Influenza Quad-PF 2019-07-07 Completed [facility] 00:00:00 of Medicine Influenza Quad-PF 2019-07-07 Completed [facility] 00:00:00 of Medicine Influenza Quad-PF 2019-07-07 Completed [facility] 00:00:00 of Medicine Influenza Quad-PF 2019-07-07 Completed [facility] 00:00:00 of Medicine Influenza Quad-PF 2019-07-07 Completed [facility] 00:00:00 of Medicine Influenza Quad-PF 2019-07-07 Completed [facility] 00:00:00 of Medicine Influenza Quad-PF 2019-07-07 Completed [facility] 00:00:00 of Medicine Influenza Quad-PF 2019-07-07 Completed [facility] 00:00:00 of Medicine Influenza Quad-PF 2019-07-07 Completed [facility] 00:00:00 of Medicine Influenza Quad-PF 2019-07-07 Completed [facility] 00:00:00 of Medicine Influenza Quad-PF 2019-07-07 Completed [facility] 00:00:00 of Medicine Influenza Quad-PF 2019-07-07 Completed [facility] 00:00:00 of Medicine Influenza Quad-PF 2019-07-07 Completed [facility] 00:00:00 of Medicine Influenza Quad-PF 2019-07-07 Completed [facility] 00:00:00 of Medicine Influenza Quad-PF 2019-07-07 Completed [facility] 00:00:00 of Medicine Influenza Quad-PF 2019-07-07 Completed [facility] 00:00:00 of Medicine Vital Signs Vital [...] HEIGHT 2021-01-08 09:31:00 165.1 cm Systolic blood 2022-04-12 19:08:00 120 mm[Hg] [facility] of pressure Medicine Diastolic blood 2022-04-12 19:08:00 77 mm[Hg] [facility] Heart rate 2022-04-12 19:08:00 77 /min [facility] Body temperature 2022-04-12 19:08:00 37.33 [facility] Body height 2022-04-12 19:08:00 162.6 cm [facility] Body weight 2022-04-12 19:08:00 79.379 kg [facility] BMI 2022-04-12 19:08:00 30.04 kg/m2 [facility] Systolic blood 2022-03-29 19:53:00 129 mm[Hg] [facility] of pressure Medicine Diastolic blood 2022-03-29 19:53:00 81 mm[Hg] [facility] of pressure Medicine Heart rate 2022-03-29 19:53:00 75 /min [facility] Body height 2022-03-29 19:53:00 162.6 cm [facility] Body weight 2022-03-29 19:53:00 78.472 kg [facility] BMI 2022-03-29 19:53:00 29.70 kg/m2 [facility] Systolic blood 2022-03-18 15:16:00 158 mm[Hg] [facility] of pressure Medicine Diastolic blood 2022-03-18 15:16:00 89 mm[Hg] [facility] of pressure Medicine Heart rate 2022-03-18 15:16:00 72 /min [facility] Body height 2022-03-18 15:16:00 162.6 cm [facility] Body weight 2022-03-18 15:16:00 78.472 kg [facility] BMI 2022-03-18 15:16:00 29.70 kg/m2 [facility] Systolic blood 2022-03-16 20:31:00 130 mm[Hg] [facility] of pressure Medicine Diastolic blood 2022-03-16 20:31:00 86 mm[Hg] [facility] of pressure Medicine Heart rate 2022-03-16 20:31:00 73 /min [facility] Body temperature 2022-03-16 20:31:00 36.94 [facility] Respiratory rate 2022-03-16 20:31:00 18 /min [facility] Body height 2022-03-16 20:31:00 162.6 cm [facility] Body weight 2022-03-16 20:31:00 78.472 kg [facility] BMI 2022-03-16 20:31:00 29.70 kg/m2 [facility] Systolic blood 2022-02-14 15:56:00 122 mm[Hg] [facility] pressure Medicine Diastolic blood 2022-02-14 15:56:00 78 mm[Hg] [facility] pressure Medicine Heart rate 2022-02-14 15:56:00 79 /min [facility] Body height 2022-02-14 15:56:00 162.6 cm [facility] Body weight 2022-02-14 15:56:00 [facility] BMI 2022-02-14 15:56:00 29.70 [facility]m2 [facility] Systolic blood 2022-02-10 20:50:00 150 mm[Hg] [facility] pressure Medicine Diastolic blood 2022-02-10 20:50:00 87 mm[Hg] [facility] Medicine Heart rate 2022-02-10 20:49:00 77 /min [facility] Respiratory rate 2022-02-10 20:49:00 16 /min [facility] Body height 2022-02-10 20:49:00 162.6 cm [facility] Body weight 2022-02-10 20:49:00 78.472 kg [facility] BMI 2022-02-10 20:49:00 29.70 [facility]m2 [facility] Oxygen saturation in 2022-02-10 20:49:00 100 /min [facility] Arterial blood by [facility] Pulse oximetry Systolic blood 2021-12-20 18:57:00 120 mm[Hg] [facility] pressure Medicine Diastolic blood 2021-12-20 18:57:00 72 mm[Hg] [facility] pressure Medicine Heart rate 2021-12-20 18:57:00 75 /min [facility] Body height 2021-12-20 18:57:00 162.6 cm [facility] Body weight 2021-12-20 18:57:00 78.472 kg [facility] BMI 2021-12-20 18:57:00 29.70 kg/m2 [facility] Systolic blood 2021-12-10 15:14:00 140 mm[Hg] [facility] pressure Medicine Diastolic blood 2021-12-10 15:14:00 80 mm[Hg] [facility] pressure Medicine Heart rate 2021-12-10 15:14:00 72 /min [facility] Body height 2021-12-10 15:14:00 162.6 cm [facility] Body weight 2021-12-10 15:14:00 78.472 kg [facility] BMI 2021-12-10 15:14:00 29.70 kg/m2 [facility] Systolic blood 2021-11-17 19:37:00 119 mm[Hg] [facility] of pressure Medicine Diastolic blood 2021-11-17 19:37:00 76 mm[Hg] [facility] of pressure Medicine Heart rate 2021-11-17 19:36:00 77 /min [facility] Respiratory rate 2021-11-17 19:36:00 16 /min [facility] Body height 2021-11-17 19:36:00 162.6 cm [facility] Body weight 2021-11-17 19:36:00 78.472 kg [facility] BMI 2021-11-17 19:36:00 29.70 [facility]2 [facility] Oxygen saturation in 2021-11-17 19:36:00 99 /min [facility] Arterial blood by [facility] Pulse oximetry Systolic blood 2021-11-12 22:19:00 130 mm[Hg] [facility] of pressure Medicine Diastolic blood 2021-11-12 22:19:00 86 mm[Hg] [facility] of pressure Medicine Heart rate 2021-11-12 22:19:00 78 /min [facility] Body temperature 2021-11-12 22:19:00 37 [facility] Body height 2021-11-12 22:19:00 162.6 cm [facility] Body weight 2021-11-12 22:19:00 78.563 kg [facility] BMI 2021-11-12 22:19:00 29.73 kg/m2 [facility] Oxygen saturation in 2021-11-12 22:19:00 100 /min [facility] Arterial blood by [facility] Pulse oximetry Systolic blood 2021-09-27 20:40:00 148 mm[Hg] [facility] pressure Medicine Diastolic blood 2021-09-27 20:40:00 81 mm[Hg] [facility] pressure Medicine Heart rate 2021-09-27 20:40:00 74 /min [facility] Body height 2021-09-27 20:40:00 162.6 cm [facility] Body weight 2021-09-27 20:40:00 79.833 [facility] BMI 2021-09-27 20:40:00 30.21 kg/m2 [facility] Systolic blood 2021-09-22 21:21:00 137 mm[Hg] [facility] pressure Medicine Diastolic blood 2021-09-22 21:21:00 75 mm[Hg] [facility] pressure Medicine Heart rate 2021-09-22 21:21:00 76 /min [facility] Body temperature 2021-09-22 21:21:00 36 Leah [facility] Body height 2021-09-22 21:21:00 162.6 cm [facility] Systolic blood 2021-08-31 15:43:00 133 mm[Hg] [facility] of pressure Medicine Diastolic blood 2021-08-31 15:43:00 85 mm[Hg] [facility] of pressure Medicine Heart rate 2021-08-31 15:43:00 70 /min [facility] Respiratory rate 2021-08-31 15:43:00 16 /min [facility] Body height 2021-08-31 15:43:00 162.6 cm [facility] Body weight 2021-08-31 15:43:00 79.833 kg [facility] BMI 2021-08-31 15:43:00 30.21 kg/m2 [facility] of [facility] Oxygen saturation in 2021-08-31 15:43:00 99 /min [facility] blood by [facility] Pulse oximetry Systolic blood 2021-08-18 19:04:00 148 mm[Hg] [facility] pressure Medicine Diastolic blood 2021-08-18 19:04:00 78 mm[Hg] [facility] Medicine Heart rate 2021-08-18 19:04:00 76 /min [facility] Respiratory rate 2021-08-18 19:04:00 16 /min [facility] Systolic blood 2021-06-30 14:11:00 144 mm[Hg] [facility] pressure Medicine Diastolic blood 2021-06-30 14:11:00 81 mm[Hg] [facility] pressure Medicine Heart rate 2021-06-30 14:11:00 80 /min [facility] Body temperature 2021-06-30 14:11:00 36.61 [facility] Respiratory rate 2021-06-30 14:11:00 16 /min [facility] Body height 2021-06-30 14:11:00 162.6 cm [facility] Body weight 2021-06-30 14:11:00 78.019 kg [facility] BMI 2021-06-30 14:11:00 29.52 kg/m2 [facility] Systolic blood 2021-06-24 19:52:00 131 mm[Hg] [facility] pressure Medicine Diastolic blood 2021-06-24 19:52:00 81 mm[Hg] [facility] pressure Medicine Heart rate 2021-06-24 19:52:00 92 /min [facility] Respiratory rate 2021-06-24 19:52:00 16 /min [facility] Body height 2021-06-24 19:52:00 162.6 cm [facility] Body weight 2021-06-24 19:52:00 78.019 kg [facility] BMI 2021-06-24 19:52:00 29.52 kg/m2 [facility] Oxygen saturation in 2021-06-24 19:52:00 98 /min [facility] Arterial blood by Medicine Pulse oximetry HEIGHT 2021-06-02 08:50:00 157.5 cm WEIGHT 2021-06-02 08:50:00 79.289 kg Systolic blood 2021-06-01 19:52:00 155 mm[Hg] [facility] pressure Medicine Diastolic blood 2021-06-01 19:52:00 89 mm[Hg] [facility] Medicine Heart rate 2021-06-01 19:52:00 92 /min [facility] Respiratory rate 2021-06-01 19:52:00 16 /min [facility] Body height 2021-06-01 19:52:00 162.6 cm [facility] Body weight 2021-06-01 19:52:00 78.472 [facility] BMI 2021-06-01 19:52:00 29.70 kg/m2 [facility] Oxygen saturation in 2021-06-01 19:52:00 98 /min [facility] Arterial blood by Medicine Pulse oximetry WEIGHT 2021-05-17 04:44:00 79.379 kg [...] kg Systolic blood 2021-04-14 20:07:00 145 mm[Hg] [facility] pressure Medicine Diastolic blood 2021-04-14 20:07:00 83 mm[Hg] [facility] Medicine Heart rate 2021-04-14 20:07:00 89 /min [facility] Body temperature 2021-04-14 20:07:00 36.44 [facility] Body height 2021-04-14 20:07:00 162.6 cm [facility] Body weight 2021-04-14 20:07:00 81.647 kg [facility] BMI 2021-04-14 20:07:00 30.90 kg/m2 [facility] Systolic blood 2021-04-14 20:07:00 145 mm[Hg] [facility] Medicine Diastolic blood 2021-04-14 20:07:00 83 mm[Hg] [facility] Medicine Heart rate 2021-04-14 20:07:00 89 /min [facility] Body temperature 2021-04-14 20:07:00 36.44 [facility] Body height 2021-04-14 20:07:00 162.6 cm [facility] Body weight 2021-04-14 20:07:00 81.647 kg [facility] BMI 2021-04-14 20:07:00 30.90 kg/m2 [facility] WEIGHT 2021-03-22 09:56:00 81.647 kg WEIGHT 2021-03-22 09:56:00 81.647 kg Systolic blood 2021-03-03 17:15:00 159 mm[Hg] [facility] pressure Medicine Diastolic blood 2021-03-03 17:15:00 89 mm[Hg] [facility] pressure Medicine Heart rate 2021-03-03 17:15:00 99 /min [facility] Body height 2021-03-03 17:15:00 162.6 cm [facility] Body weight 2021-03-03 17:15:00 83.915 kg [facility] BMI 2021-03-03 17:15:00 31.76 kg/m2 [facility] Systolic blood 2021-03-03 17:15:00 159 mm[Hg] [facility] pressure Medicine Diastolic blood 2021-03-03 17:15:00 89 mm[Hg] [facility] pressure Medicine Heart rate 2021-03-03 17:15:00 99 /min [facility] Body height 2021-03-03 17:15:00 162.6 cm [facility] Body weight 2021-03-03 17:15:00 83.915 kg [facility] BMI 2021-03-03 17:15:00 31.76 kg/m2 [facility] Systolic blood 2021-02-16 14:32:00 143 mm[Hg] [facility] pressure Medicine Diastolic blood 2021-02-16 14:32:00 85 mm[Hg] [facility] Medicine Heart rate 2021-02-16 14:32:00 81 /min [facility] Respiratory rate 2021-02-16 14:32:00 16 /min [facility] Body height 2021-02-16 14:32:00 162.6 cm [facility] Body weight 2021-02-16 14:32:00 84.369 kg [facility] BMI 2021-02-16 14:32:00 31.93 kg/m2 [facility] Oxygen saturation in 2021-02-16 14:32:00 98 /min [facility] Arterial blood by Medicine Pulse oximetry Systolic blood 2021-02-16 14:32:00 143 mm[Hg] [facility] pressure Medicine Diastolic blood 2021-02-16 14:32:00 85 mm[Hg] [facility] pressure Medicine Heart rate 2021-02-16 14:32:00 81 /min [facility] Respiratory rate 2021-02-16 14:32:00 16 /min [facility] Body height 2021-02-16 14:32:00 162.6 cm [facility] Body weight 2021-02-16 14:32:00 84.369 kg [facility] BMI 2021-02-16 14:32:00 31.93 kg/m2 [facility] Oxygen saturation in 2021-02-16 14:32:00 98 /min [facility] blood by [facility] Pulse oximetry Systolic blood 2021-01-25 16:39:00 145 mm[Hg] [facility] pressure Medicine Diastolic blood 2021-01-25 16:39:00 83 mm[Hg] [facility] Medicine Heart rate 2021-01-25 16:39:00 94 /min [facility] Body height 2021-01-25 16:39:00 162.6 cm [facility] Body weight 2021-01-25 16:39:00 83.915 kg [facility] BMI 2021-01-25 16:39:00 31.76 kg/m2 [facility] Systolic blood 2021-01-25 16:39:00 145 mm[Hg] [facility] pressure Medicine Diastolic blood 2021-01-25 16:39:00 83 mm[Hg] [facility] pressure Medicine Heart rate 2021-01-25 16:39:00 94 /min [facility] Body height 2021-01-25 16:39:00 162.6 cm [facility] Body weight 2021-01-25 16:39:00 83.915 kg [facility] BMI 2021-01-25 16:39:00 31.76 kg/m2 [facility] HEIGHT 2021-01-04 12:09:00 165.1 cm WEIGHT 2021-01-04 12:09:00 81.647 kg HEIGHT 2021-01-04 12:09:00 165.1 cm WEIGHT 2021-01-04 12:09:00 81.647 kg Systolic blood 2020-12-02 20:56:00 147 mm[Hg] [facility] pressure Medicine Diastolic blood 2020-12-02 20:56:00 90 mm[Hg] [facility] pressure Medicine Heart rate 2020-12-02 20:56:00 102 /min [facility] Systolic blood 2020-12-02 20:56:00 147 mm[Hg] [facility] pressure Medicine Diastolic blood 2020-12-02 20:56:00 90 mm[Hg] [facility] pressure Medicine Heart rate 2020-12-02 20:56:00 102 /min [facility] Systolic blood 2020-10-12 19:58:00 137 mm[Hg] [facility] pressure Medicine Diastolic blood 2020-10-12 19:58:00 85 mm[Hg] [facility] pressure Medicine Heart rate 2020-10-12 19:58:00 93 /min [facility] Body height 2020-10-12 19:58:00 162.6 cm [facility] Medicine Body weight 2020-10-12 19:58:00 86.637 kg [facility] Medicine BMI 2020-10-12 19:58:00 32.79 kg/m2 [facility] Systolic blood 2020-10-12 19:58:00 137 mm[Hg] [facility] pressure Medicine Diastolic blood 2020-10-12 19:58:00 85 mm[Hg] [facility] Medicine Heart rate 2020-10-12 19:58:00 93 /min [facility] Body height 2020-10-12 19:58:00 162.6 cm [facility] Body weight 2020-10-12 19:58:00 86.637 kg [facility] BMI 2020-10-12 19:58:00 32.79 kg/m2 [facility] Systolic blood 2020-08-06 19:10:00 133 mm[Hg] [facility] pressure Medicine Diastolic blood 2020-08-06 19:10:00 84 mm[Hg] [facility] of pressure Medicine Heart rate 2020-08-06 19:10:00 85 /min [facility] Body height 2020-08-06 19:10:00 162.6 cm [facility] Body weight 2020-08-06 19:10:00 86.637 kg [facility] BMI 2020-08-06 19:10:00 32.79 kg/m2 [facility] Systolic blood 2020-08-06 19:10:00 133 mm[Hg] [facility] pressure Medicine Diastolic blood 2020-08-06 19:10:00 84 mm[Hg] [facility] of pressure Medicine Heart rate 2020-08-06 19:10:00 85 /min [facility] of Medicine Body height 2020-08-06 19:10:00 162.6 cm [facility] of Medicine Body weight 2020-08-06 19:10:00 86.637 kg [facility] Medicine BMI 2020-08-06 19:10:00 32.79 kg/m2 [facility] Medicine Systolic blood 2020-04-23 16:34:00 147 mm[Hg] [facility] of pressure Medicine Diastolic blood 2020-04-23 16:34:00 81 mm[Hg] [facility] Medicine Heart rate 2020-04-23 16:34:00 87 /min [facility] of Medicine Respiratory rate 2020-04-23 16:34:00 16 /min [facility] Body height 2020-04-23 16:34:00 162.6 cm [facility] Body weight 2020-04-23 16:34:00 85.73 kg [facility] Medicine BMI 2020-04-23 16:34:00 32.44 kg/m2 [facility] of Medicine Oxygen saturation in 2020-04-23 16:34:00 98 /min [facility] Arterial blood by [facility] Pulse oximetry Systolic blood 2020-04-23 16:34:00 147 mm[Hg] [facility] pressure Medicine Diastolic blood 2020-04-23 16:34:00 81 mm[Hg] [facility] of pressure Medicine Heart rate 2020-04-23 16:34:00 87 /min [facility] of Medicine Respiratory rate 2020-04-23 16:34:00 16 /min [facility] Body height 2020-04-23 16:34:00 162.6 cm [facility] Body weight 2020-04-23 16:34:00 85.73 kg [facility] Medicine BMI 2020-04-23 16:34:00 32.44 [facility]2 [facility] Oxygen saturation in 2020-04-23 16:34:00 98 /min [facility] blood by [facility] Pulse oximetry Heart rate 2020-01-22 14:44:00 83 /min [facility] Body temperature 2020-01-22 14:44:00 36.61 Leah [facility] Body height 2020-01-22 14:44:00 162.6 cm [facility] Body weight 2020-01-22 14:44:00 83.915 kg [facility] BMI 2020-01-22 14:44:00 31.76 kg/m2 [facility] Systolic blood 2020-01-22 14:44:00 131 mm[Hg] [facility] pressure Medicine Diastolic blood 2020-01-22 14:44:00 80 mm[Hg] [facility] pressure Medicine Heart rate 2020-01-22 14:44:00 83 /min [facility] Medicine Body temperature 2020-01-22 14:44:00 36.61 Leah [facility] Body height 2020-01-22 14:44:00 162.6 cm [facility] Medicine Body weight 2020-01-22 14:44:00 83.915 kg [facility] Medicine BMI 2020-01-22 14:44:00 31.76 kg/m2 [facility] Medicine Systolic blood 2020-01-22 14:44:00 131 mm[Hg] [facility] of pressure Medicine Diastolic blood 2020-01-22 14:44:00 80 mm[Hg] [facility] of pressure Medicine Systolic blood 2019-08-16 17:59:00 138 mm[Hg] [facility] Medicine Diastolic blood 2019-08-16 17:59:00 80 mm[Hg] [facility] Medicine Heart rate 2019-08-16 17:59:00 78 /min [facility] Body height 2019-08-16 17:59:00 165.1 cm [facility] Body weight 2019-08-16 17:59:00 [facility] 2019-08-16 17:59:00 31.62 kg/m2 [facility] Systolic blood 2019-08-16 17:59:00 138 mm[Hg] [facility] Medicine Diastolic blood 2019-08-16 17:59:00 80 mm[Hg] [facility] Medicine Heart rate 2019-08-16 17:59:00 78 /min [facility] Body height 2019-08-16 17:59:00 165.1 cm [facility] Body weight 2019-08-16 17:59:00 86.183 kg [facility] BMI 2019-08-16 17:59:00 31.62 kg/m2 [facility] Procedures Procedure Date / Time Performing Clinician Source Performed AMB REF TO PHYSICAL MED 2022-03-21 13:36:35 [facility] POCT URINALYSIS DIPSTICK 2022-03-16 00:00:00 Chuckie White [facility] POCT URINALYSIS DIPSTICK 2022-03-16 00:00:00 [facility] ELECTROCARDIOGRAM COMPLETE 2022-02-10 20:56:00 Mohan Dennison [facility] POCT URINALYSIS DIPSTICK 2021-09-22 00:00:00 Chuckie White [facility] POCT URINALYSIS DIPSTICK 2021-08-18 00:00:00 Chuckie White [facility] POCT URINALYSIS DIPSTICK 2021-06-30 00:00:00 Chuckie White [facility] ELECTROCARDIOGRAM COMPLETE 2021-06-24 19:56:00 Mohan Dennison [facility] POCT URINALYSIS DIPSTICK 2021-04-14 00:00:00 Chuckie White [facility] POCT URINALYSIS DIPSTICK 2021-03-03 00:00:00 Chuckie White [facility] ELECTROCARDIOGRAM COMPLETE 2021-02-16 14:39:00 Mohan Dennison [facility] POCT URINALYSIS DIPSTICK 2020-12-02 00:00:00 Chuckie White [facility] Plan of Care Planned Activity Planned Date Details Comments Source Future Scheduled 2022-04-12 Screening for malignant [facility] Test 14:55:00 neoplasm of colon of Medicin e (procedure) [code = 458436190] Future Scheduled 2022-04-12 COVID-19 Vaccine (#1) [facility] Test 14:55:00 [code = COVID-19 of Medicine Vaccine (#1)] Future Scheduled 2022-04-12 Pneumococcal 65+ (1 - Ba [facility] Test 14:55:00 PCV) [code = of Medicine Pneumococcal 65+ (1 - PCV)] Future Scheduled 2022-04-12 TETANUS SHOT (ADULT) [facility] Test 14:55:00 [code = TETANUS SHOT of Medi cine (ADULT)] Future Scheduled 2022-04-12 Diabetic foot [facility] Test 14:55:00 examination of Medicine (regime/therapy) [code = [id number]] Future Scheduled 2022-04-12 ANNUAL DIABETIC [facility] Test 14:55:00 RETINOPATHY SCREENING of Med icine [code = ANNUAL DIABETIC RETINOPATHY SCREENING] Future Scheduled 2022-04-12 Hepatitis C screening [facility] Test 14:55:00 (procedure) [code = of Medic ine [id number]] Future Scheduled 2022-04-12 ZOSTER VACCINE (1 of 2) [facility] Test 14:55:00 [code = ZOSTER VACCINE of Me dicine (1 of 2)] Future Scheduled 2022-04-12 Abdominal aortic [facility] Test 14:55:00 aneurysm screening of Medici ne (procedure) [code = [id number]] Future Scheduled 2022-04-12 BMI FOLLOW UP PLAN [facility] Test 14:55:00 [code = BMI FOLLOW UP of Med icine PLAN] Future Scheduled 2022-04-12 Hemoglobin A1c [facility] Test 14:55:00 measurement (procedure) of M edicine [code = [id number]] Future Scheduled 2022-04-12 FLU VACCINE > 6 MONTHS [employer] Test 14:55:00 [code = FLU VACCINE > 6 of M edicine MONTHS] Future Scheduled 2022-04-12 FALL SCREEN [code = [employer] Test 14:55:00 FALL SCREEN] of Medicine Future Scheduled 2022-03-30 PHI PANEL (URO DEPT) Expected: [facility] Test 00:00:00 [code = 01521] 03/30/2022 of Medicine (Approximate), Expires: 04/15/2022 Future Scheduled 2022-03-29 Screening for malignant [facility] Test 16:47:24 neoplasm of colon of Medicin e (procedure) [code = [id number]] Future Scheduled 2022-03-29 COVID-19 Vaccine (#1) [facility] Test 16:47:24 [code = COVID-19 of Medicine Vaccine (#1)] Future Scheduled 2022-03-29 Pneumococcal 65+ (1 - [facility] Test 16:47:24 PCV) [code = of Medicine Pneumococcal 65+ (1 - PCV)] Future Scheduled 2022-03-29 TETANUS SHOT (ADULT) [facility] Test 16:47:24 [code = TETANUS SHOT of Medi cine (ADULT)] Future Scheduled 2022-03-29 Diabetic foot [employer] Test 16:47:24 examination of Medicine (regime/therapy) [code = 353567569] Future Scheduled 2022-03-29 ANNUAL DIABETIC [employer] [employer] Test 16:47:24 RETINOPATHY SCREENING of Med icine [code = ANNUAL DIABETIC RETINOPATHY SCREENING] Future Scheduled 2022-03-29 Hepatitis C screening [facility] Test 16:47:24 (procedure) [code = of Medic ine 296622862] Future Scheduled 2022-03-29 ZOSTER VACCINE (1 of 2) [facility] Test 16:47:24 [code = ZOSTER VACCINE of Me dicine (1 of 2)] Future Scheduled 2022-03-29 Abdominal aortic [facility] Test 16:47:24 aneurysm screening of Medici ne (procedure) [code = 637793052] Future Scheduled 2022-03-29 BMI FOLLOW UP PLAN [facility] [employer] Test 16:47:24 [code = BMI FOLLOW UP of Med icine PLAN] Future Scheduled 2022-03-29 Hemoglobin A1c [employer] Test 16:47:24 measurement (procedure) of M edicine [code = 36452989] Future Scheduled 2022-03-29 FLU VACCINE > 6 MONTHS [employer] Test 16:47:24 [code = FLU VACCINE > 6 of M edicine MONTHS] Future Scheduled 2022-03-29 FALL SCREEN [code = [facility] [place] Test 16:47:24 FALL SCREEN] of Medicine Future Scheduled 2022-03-29 MRI LUMBAR SPINE WO 1 Occurrences [facility] Test 15:51:19 CONTRAST [code = starting of Medicine 77764-0] 03/29/2022 until 03/29/2023 Future Scheduled 2022-03-29 MRI HIP LEFT WO 1 Occurrences [facility] Test 15:51:19 CONTRAST [code = 90602] starting of M edicine 03/29/2022 until 03/29/2023 Future Scheduled 2022-03-22 Screening for malignant [facility] Test 09:09:58 neoplasm of colon of Medicin e (procedure) [code = 787161677] Future Scheduled 2022-03-22 COVID-19 Vaccine (1) [facility] Test 09:09:58 [code = COVID-19 of Medicine Vaccine (1)] Future Scheduled 2022-03-22 TETANUS SHOT (ADULT) [facility] Test 09:09:58 [code = TETANUS SHOT of Medi cine (ADULT)] Future Scheduled 2022-03-22 Diabetic foot [employer] Test 09:09:58 examination of Medicine (regime/therapy) [code = 039042997] Future Scheduled 2022-03-22 ANNUAL DIABETIC [employer] Test 09:09:58 RETINOPATHY SCREENING of Med icine [code = ANNUAL DIABETIC RETINOPATHY SCREENING] Future Scheduled 2022-03-22 Hepatitis C screening [facility] Test 09:09:58 (procedure) [code = of Medic ine 028446176] Future Scheduled 2022-03-22 ZOSTER VACCINE (1 of 2) [facility] Test 09:09:58 [code = ZOSTER VACCINE of Me dicine (1 of 2)] Future Scheduled 2022-03-22 Abdominal aortic [facility] Test 09:09:58 aneurysm screening of Medici ne (procedure) [code = 445815372] Future Scheduled 2022-03-22 Pneumococcal 65+ (1 of [facility] [employer] Test 09:09:58 1 - PPSV23) [code = of Medic ine Pneumococcal 65+ (1 of 1 - PPSV23)] Future Scheduled 2022-03-22 BMI FOLLOW UP PLAN [facility] [employer] Test 09:09:58 [code = BMI FOLLOW UP of Med icine PLAN] Future Scheduled 2022-03-22 Hemoglobin A1c [employer] Test 09:09:58 measurement (procedure) of M edicine [code = 54894311] Future Scheduled 2022-03-22 FLU VACCINE > 6 MONTHS [facility] Test 09:09:58 [code = FLU VACCINE > 6 of M edicine MONTHS] Future Scheduled 2022-03-22 FALL SCREEN [code = [employer] Test 09:09:58 FALL SCREEN] of Medicine Future Scheduled 2022-03-18 US ARTERIAL LEG RIGHT 1 Occurrences [facility] [employer] Test 11:47:53 [code = 39966] starting of Medicine 03/18/2022 until 03/18/2023 Future Scheduled 2022-03-18 US ANK/BRAC INDICES, 1 Occurrences [facility] Test 11:40:17 SINGLE BILAT [code = starting of Medi cine 72493] 03/18/2022 until 03/18/2023 Future Scheduled 2022-03-16 Screening for malignant [facility] Test 15:15:08 neoplasm of colon of Medicin e (procedure) [code = 245821271] Future Scheduled 2022-03-16 COVID-19 Vaccine (1) [facility] Test 15:15:08 [code = COVID-19 of Medicine Vaccine (1)] Future Scheduled 2022-03-16 TETANUS SHOT (ADULT) [facility] Test 15:15:08 [code = TETANUS SHOT of Medi cine (ADULT)] Future Scheduled 2022-03-16 Diabetic foot [employer] Test 15:15:08 examination of Medicine (regime/therapy) [code = 238363595] Future Scheduled 2022-03-16 ANNUAL DIABETIC [employer] Test 15:15:08 RETINOPATHY SCREENING of Med icine [code = ANNUAL DIABETIC RETINOPATHY SCREENING] Future Scheduled 2022-03-16 Hepatitis C screening [employer] Test 15:15:08 (procedure) [code = of Medic ine 795677815] Future Scheduled 2022-03-16 ZOSTER VACCINE (1 of 2) [employer] Test 15:15:08 [code = ZOSTER VACCINE of dicine (1 of 2)] Future Scheduled 2022-03-16 Abdominal aortic [employer] Test 15:15:08 aneurysm screening of Derick ne (procedure) [code = 947071311] Future Scheduled 2022-03-16 Pneumococcal 65+ (1 of [facility] Test 15:15:08 1 - PPSV23) [code = of Medic ine Pneumococcal 65+ (1 of 1 - PPSV23)] Future Scheduled 2022-03-16 BMI FOLLOW UP PLAN [facility] [employer] Test 15:15:08 [code = BMI FOLLOW UP of Med icine PLAN] Future Scheduled 2022-03-16 Hemoglobin A1c [employer] Test 15:15:08 measurement (procedure) of M edicine [code = 53005466] Future Scheduled 2022-03-16 FLU VACCINE > 6 MONTHS [facility] Test 15:15:08 [code = FLU VACCINE > 6 of M edicine MONTHS] Future Scheduled 2022-03-16 FALL SCREEN [code = [facility] [place] Test 15:15:08 FALL SCREEN] of Medicine Future Scheduled 2022-02-21 Screening for malignant [facility] Test 00:15:07 neoplasm of colon of Maryan e (procedure) [code = 816181106] Future Scheduled 2022-02-21 COVID-19 Vaccine (1) [facility] Test 00:15:07 [code = COVID-19 of Medicine Vaccine (1)] Future Scheduled 2022-02-21 TETANUS SHOT (ADULT) [facility] Test 00:15:07 [code = TETANUS SHOT of Medi cine (ADULT)] Future Scheduled 2022-02-21 Diabetic foot [employer] Test 00:15:07 examination of Medicine (regime/therapy) [code = 847861316] Future Scheduled 2022-02-21 ANNUAL DIABETIC [employer] Test 00:15:07 RETINOPATHY SCREENING of Jasvir kayne [code = ANNUAL DIABETIC RETINOPATHY SCREENING] Future Scheduled 2022-02-21 Hepatitis C screening [facility] Test 00:15:07 (procedure) [code = of Medic ine 966355326] Future Scheduled 2022-02-21 ZOSTER VACCINE (1 of 2) [facility] Test 00:15:07 [code = ZOSTER VACCINE of dicine (1 of 2)] Future Scheduled 2022-02-21 Abdominal aortic [facility] Test 00:15:07 aneurysm screening of Derick ne (procedure) [code = 618515157] Future Scheduled 2022-02-21 Pneumococcal 65+ (1 of [facility] [employer] Test 00:15:07 1 - PPSV23) [code = of Medic ine Pneumococcal 65+ (1 of 1 - PPSV23)] Future Scheduled 2022-02-21 BMI FOLLOW UP PLAN [facility] [employer] Test 00:15:07 [code = BMI FOLLOW UP of Med icine PLAN] Future Scheduled 2022-02-21 Hemoglobin A1c [employer] Test 00:15:07 measurement (procedure) of M edicine [code = 51538210] Future Scheduled 2022-02-21 FLU VACCINE > 6 MONTHS [facility] Test 00:15:07 [code = FLU VACCINE > 6 of M edicine MONTHS] Future Scheduled 2022-02-21 FALL SCREEN [code = [facility] Test 00:15:07 FALL SCREEN] of Medicine Future Scheduled 2022-02-10 Screening for malignant [facility] Test 16:13:11 neoplasm of colon of Luisin e (procedure) [code = 751234295] Future Scheduled 2022-02-10 COVID-19 Vaccine (1) [facility] Test 16:13:11 [code = COVID-19 of Medicine Vaccine (1)] Future Scheduled 2022-02-10 TETANUS SHOT (ADULT) [facility] Test 16:13:11 [code = TETANUS SHOT of Medi cine (ADULT)] Future Scheduled 2022-02-10 Diabetic foot [employer] Test 16:13:11 examination of Medicine (regime/therapy) [code = 321389162] Future Scheduled 2022-02-10 ANNUAL DIABETIC [employer] Test 16:13:11 RETINOPATHY SCREENING of Jasvir kayne [code = ANNUAL DIABETIC RETINOPATHY SCREENING] Future Scheduled 2022-02-10 Hepatitis C screening [facility] Test 16:13:11 (procedure) [code = of Medic ine 480855640] Future Scheduled 2022-02-10 ZOSTER VACCINE (1 of 2) [facility] Test 16:13:11 [code = ZOSTER VACCINE of Me salgado (1 of 2)] Future Scheduled 2022-02-10 Abdominal aortic [facility] Test 16:13:11 aneurysm screening of Luisi ne (procedure) [code = 469599663] Future Scheduled 2022-02-10 Pneumococcal 65+ (1 of [facility] Test 16:13:11 1 - PPSV23) [code = of Medic ine Pneumococcal 65+ (1 of 1 - PPSV23)] Future Scheduled 2022-02-10 BMI FOLLOW UP PLAN [facility] [place] Test 16:13:11 [code = BMI FOLLOW UP of Med icine PLAN] Future Scheduled 2022-02-10 Hemoglobin A1c [employer] [employer] Test 16:13:11 measurement (procedure) of M edicine [code = 95127634] Future Scheduled 2022-02-10 FLU VACCINE > 6 MONTHS [facility] [employer] Test 16:13:11 [code = FLU VACCINE > 6 of M edicine MONTHS] Future Scheduled 2022-02-10 FALL SCREEN [code = [facility] [place] Test 16:13:11 FALL SCREEN] of Medicine Future Scheduled 2022-02-10 ELECTROCARDIOGRAM [facility] Test 15:50:28 COMPLETE [code = 23934] of M edicine Future Scheduled 2022-01-17 US CAROTID [code = Expected: [facility] [employer] Test 00:00:00 72070] 01/17/2022, of Medicine Expires: 12/20/2022 Future Scheduled 2021-12-20 Screening for malignant [facility] Test 12:58:23 neoplasm of colon of Luisin e (procedure) [code = 063003932] Future Scheduled 2021-12-20 COVID-19 Vaccine (1) [facility] Test 12:58:23 [code = COVID-19 of Medicine Vaccine (1)] Future Scheduled 2021-12-20 TETANUS SHOT (ADULT) [facility] Test 12:58:23 [code = TETANUS SHOT of Medi cine (ADULT)] Future Scheduled 2021-12-20 Diabetic foot [employer] Test 12:58:23 examination of Medicine (regime/therapy) [code = 490453532] Future Scheduled 2021-12-20 ANNUAL DIABETIC [employer] [facility] [employer] Test 12:58:23 RETINOPATHY SCREENING of Med icine [code = ANNUAL DIABETIC RETINOPATHY SCREENING] Future Scheduled 2021-12-20 Hepatitis C screening [facility] [place] Test 12:58:23 (procedure) [code = of Medic ine 723924341] Future Scheduled 2021-12-20 ZOSTER VACCINE (1 of 2) [facility] Test 12:58:23 [code = ZOSTER VACCINE of Me dicine (1 of 2)] Future Scheduled 2021-12-20 Abdominal aortic [facility] Test 12:58:23 aneurysm screening of Medici ne (procedure) [code = 496341237] Future Scheduled 2021-12-20 Pneumococcal 65+ (1 of [facility] Test 12:58:23 1 - PPSV23) [code = of Medic ine Pneumococcal 65+ (1 of 1 - PPSV23)] Future Scheduled 2021-12-20 BMI FOLLOW UP PLAN [facility] [place] Test 12:58:23 [code = BMI FOLLOW UP of Med icine PLAN] Future Scheduled 2021-12-20 Hemoglobin A1c [facility] [employer] [place] Test 12:58:23 measurement (procedure) of M edicine [code = 37486823] Future Scheduled 2021-12-20 FALL SCREEN [code = [facility] [place] Test 12:58:23 FALL SCREEN] of Medicine Future Scheduled 2021-12-10 Screening for malignant [facility] Test 10:45:05 neoplasm of colon of Medicin e (procedure) [code = 785868832] Future Scheduled 2021-12-10 COVID-19 Vaccine (1) [facility] Test 10:45:05 [code = COVID-19 of Medicine Vaccine (1)] Future Scheduled 2021-12-10 TETANUS SHOT (ADULT) [facility] Test 10:45:05 [code = TETANUS SHOT of Medi cine (ADULT)] Future Scheduled 2021-12-10 Diabetic foot [employer] Test 10:45:05 examination of Medicine (regime/therapy) [code = 885846478] Future Scheduled 2021-12-10 ANNUAL DIABETIC [employer] Test 10:45:05 RETINOPATHY SCREENING of Med icine [code = ANNUAL DIABETIC RETINOPATHY SCREENING] Future Scheduled 2021-12-10 Hepatitis C screening [facility] Test 10:45:05 (procedure) [code = of Medic ine 975295666] Future Scheduled 2021-12-10 ZOSTER VACCINE (1 of 2) [facility] Test 10:45:05 [code = ZOSTER VACCINE of Me dicine (1 of 2)] Future Scheduled 2021-12-10 Abdominal aortic [employer] Test 10:45:05 aneurysm screening of Medici ne (procedure) [code = 838173749] Future Scheduled 2021-12-10 Pneumococcal 65+ (1 of [facility] Test 10:45:05 1 - PPSV23) [code = of Medic ine Pneumococcal 65+ (1 of 1 - PPSV23)] Future Scheduled 2021-12-10 BMI FOLLOW UP PLAN [facility] [employer] Test 10:45:05 [code = BMI FOLLOW UP of Med icine PLAN] Future Scheduled 2021-12-10 Hemoglobin A1c [employer] Test 10:45:05 measurement (procedure) of M edicine [code = 03310033] Future Scheduled 2021-12-10 FALL SCREEN [code = [facility] [place] Test 10:45:05 FALL SCREEN] of Medicine Future Scheduled 2021-12-10 US 1 Occurrences [employer] Test 09:52:35 AORTA,IVC,ILIACS,GRAFT starting of Me dicine COMPLETE DUPLEX [code = 12/10/2021 until 35734-5] 12/10/2022 Future Scheduled 2021-11-17 Screening for malignant [facility] Test 14:44:57 neoplasm of colon of Medicin e (procedure) [code = 270062710] Future Scheduled 2021-11-17 Pneumococcal 65+ (1 of [facility] Test 14:44:57 2 - PPSV23) [code = of Medic ine Pneumococcal 65+ (1 of 2 - PPSV23)] Future Scheduled 2021-11-17 COVID-19 Vaccine (1) [facility] [employer] Test 14:44:57 [code = COVID-19 of Medicine Vaccine (1)] Future Scheduled 2021-11-17 TETANUS SHOT (ADULT) [facility] [employer] Test 14:44:57 [code = TETANUS SHOT of Medi cine (ADULT)] Future Scheduled 2021-11-17 Hepatitis C screening [facility] Test 14:44:57 (procedure) [code = of Medic ine 181133960] Future Scheduled 2021-11-17 ZOSTER VACCINE (1 of 2) [facility] Test 14:44:57 [code = ZOSTER VACCINE of Me dicine (1 of 2)] Future Scheduled 2021-11-17 MEDICARE IPPE (WELCOME [facility] [employer] Test 14:44:57 TO MEDICARE) [code = of Medi [facility] MEDICARE IPPE (WELCOME TO MEDICARE)] Future Scheduled 2021-11-17 Abdominal aortic [employer] Test 14:44:57 aneurysm screening of Medici ne (procedure) [code = 723363555] Future Scheduled 2021-11-17 BMI FOLLOW UP PLAN [employer] Test 14:44:57 [code = BMI FOLLOW UP of Med icine PLAN] Future Scheduled 2021-11-17 FALL SCREEN [code = [employer] Test 14:44:57 FALL SCREEN] of Medicine Future Scheduled 2021-11-12 CBC W/AUTO DIFF WITH Ordered: [employer] Test 17:03:41 PLATELETS [code = 11/12/2021 of Medicin e 46775-5] Future Scheduled 2021-11-12 COMPREHENSIVE METABOLIC Ordered: [employer] Test 17:03:41 PANEL [code = 28419-2] 11/12/2021 of Me dicine Future Scheduled 2021-11-12 HEMOGLOBIN A1C [code = Ordered: [facility] [employer] Test 17:03:41 4548-4] 11/12/2021 of Medicine Future Scheduled 2021-11-12 LIPID PANEL [code = Ordered: [employer] Test 17:03:41 25727-7] 11/12/2021 of Medicine Future Scheduled 2021-11-12 TSH + FREE T4 PROFILE Ordered: [facility] [employer] Test 17:03:41 [code = NOCPT] 11/12/2021 of Medicine Future Scheduled 2021-11-12 PSA [code = 2857-1] Ordered: [employer] Test 17:03:41 11/12/2021 of Medicine Future Scheduled 2021-11-12 Screening for malignant [employer] Test 16:55:06 neoplasm of colon of Medicin e (procedure) [code = 821603136] Future Scheduled 2021-11-12 Pneumococcal 65+ (1 of [facility] [employer] Test 16:55:06 2 - PPSV23) [code = of Medic ine Pneumococcal 65+ (1 of 2 - PPSV23)] Future Scheduled 2021-11-12 COVID-19 Vaccine (1) [facility] [employer] Test 16:55:06 [code = COVID-19 of Medicine Vaccine (1)] Future Scheduled 2021-11-12 TETANUS SHOT (ADULT) [facility] [employer] Test 16:55:06 [code = TETANUS SHOT of Medi cine (ADULT)] Future Scheduled 2021-11-12 Hepatitis C screening [facility] [employer] Test 16:55:06 (procedure) [code = of Medic ine 257538225] Future Scheduled 2021-11-12 ZOSTER VACCINE (1 of 2) [facility] Test 16:55:06 [code = ZOSTER VACCINE of Me dicine (1 of 2)] Future Scheduled 2021-11-12 MEDICARE IPPE (WELCOME [facility] [employer] Test 16:55:06 TO MEDICARE) [code = of Medi cine MEDICARE IPPE (WELCOME TO MEDICARE)] Future Scheduled 2021-11-12 Abdominal aortic [employer] Test 16:55:06 aneurysm screening of Medici ne (procedure) [code = 398439946] Future Scheduled 2021-11-12 BMI FOLLOW UP PLAN [facility] [employer] Test 16:55:06 [code = BMI FOLLOW UP of Med icine PLAN] Future Scheduled 2021-11-12 FALL SCREEN [code = [facility] Test 16:55:06 FALL SCREEN] of Medicine Diagnostic Test 2021-11-12 MAMMO DIAGNOSTIC BILAT Expected: [facility] Pending 00:00:00 (US/BIOP IF NEEDED) 11/12/2021, of Medic ine [code = 98233-9] Expires: 05/12/2023 Future Scheduled 2021-10-04 Screening for malignant [facility] Test 14:20:03 neoplasm of colon of Medicin e (procedure) [code = 689365913] Future Scheduled 2021-10-04 Pneumococcal 65+ (1 of [facility] Test 14:20:03 2 - PPSV23) [code = of Medic ine Pneumococcal 65+ (1 of 2 - PPSV23)] Future Scheduled 2021-10-04 COVID-19 Vaccine (1) [facility] [employer] Test 14:20:03 [code = COVID-19 of Medicine Vaccine (1)] Future Scheduled 2021-10-04 TETANUS SHOT (ADULT) [facility] [employer] Test 14:20:03 [code = TETANUS SHOT of Medi cine (ADULT)] Future Scheduled 2021-10-04 Hepatitis C screening [facility] [employer] Test 14:20:03 (procedure) [code = of Medic ine 208614909] Future Scheduled 2021-10-04 ZOSTER VACCINE (1 of 2) [employer] Test 14:20:03 [code = ZOSTER VACCINE of Me dicine (1 of 2)] Future Scheduled 2021-10-04 MEDICARE IPPE (WELCOME [facility] [employer] Test 14:20:03 TO MEDICARE) [code = of Medi cine MEDICARE IPPE (WELCOME TO MEDICARE)] Future Scheduled 2021-10-04 Abdominal aortic [employer] Test 14:20:03 aneurysm screening of Medici ne (procedure) [code = 446452440] Future Scheduled 2021-10-04 BMI FOLLOW UP PLAN [facility] [employer] Test 14:20:03 [code = BMI FOLLOW UP of Med icine PLAN] Future Scheduled 2021-10-04 FALL SCREEN [code = [employer] Test 14:20:03 FALL SCREEN] of Medicine Future Scheduled 2021-09-22 Screening for malignant [employer] Test 16:06:05 neoplasm of colon of Medicin e (procedure) [code = 832086496] Future Scheduled 2021-09-22 Pneumococcal 65+ (1 of [facility] [employer] Test 16:06:05 2 - PPSV23) [code = of Medic ine Pneumococcal 65+ (1 of 2 - PPSV23)] Future Scheduled 2021-09-22 COVID-19 Vaccine (1) [facility] [employer] Test 16:06:05 [code = COVID-19 of Medicine Vaccine (1)] Future Scheduled 2021-09-22 TETANUS SHOT (ADULT) [facility] [employer] Test 16:06:05 [code = TETANUS SHOT of Medi cine (ADULT)] Future Scheduled 2021-09-22 Hepatitis C screening [facility] Test 16:06:05 (procedure) [code = of Medic ine 109250158] Future Scheduled 2021-09-22 ZOSTER VACCINE (1 of 2) [employer] Test 16:06:05 [code = ZOSTER VACCINE of Me dicine (1 of 2)] Future Scheduled 2021-09-22 MEDICARE IPPE (WELCOME [facility] [employer] Test 16:06:05 TO MEDICARE) [code = of Medi cine MEDICARE IPPE (WELCOME TO MEDICARE)] Future Scheduled 2021-09-22 Abdominal aortic [employer] Test 16:06:05 aneurysm screening of Medici ne (procedure) [code = 837365149] Future Scheduled 2021-09-22 FALL SCREEN [code = [employer] Test 16:06:05 FALL SCREEN] of Medicine Future Scheduled 2021-09-22 BMI FOLLOW UP PLAN [employer] Test 16:06:05 [code = BMI FOLLOW UP of Med icine PLAN] Future Scheduled 2021-09-05 Screening for malignant [employer] Test 08:36:55 neoplasm of colon of Medicin e (procedure) [code = 389659379] Future Scheduled 2021-09-05 COVID-19 Vaccine (1) [employer] Test 08:36:55 [code = COVID-19 of Medicine Vaccine (1)] Future Scheduled 2021-09-05 TETANUS SHOT (ADULT) [employer] Test 08:36:55 [code = TETANUS SHOT of Medi cine (ADULT)] Future Scheduled 2021-09-05 Hepatitis C screening [facility] [employer] Test 08:36:55 (procedure) [code = of Medic ine 684027061] Future Scheduled 2021-09-05 ZOSTER VACCINE (1 of 2) [employer] Test 08:36:55 [code = ZOSTER VACCINE of Me dicine (1 of 2)] Future Scheduled 2021-09-05 MEDICARE IPPE (WELCOME [facility] [employer] Test 08:36:55 TO MEDICARE) [code = of Medi cine MEDICARE IPPE (WELCOME TO MEDICARE)] Future Scheduled 2021-09-05 Abdominal aortic [employer] Test 08:36:55 aneurysm screening of Medici ne (procedure) [code = 542691712] Future Scheduled 2021-09-05 FALL SCREEN [code = [employer] Test 08:36:55 FALL SCREEN] of Medicine Future Scheduled 2021-09-05 PNEUMOVAX >=65 (PPSV23) [employer] Test 08:36:55 [code = PNEUMOVAX >=65 of Me dicine (PPSV23)] Future Scheduled 2021-09-05 BMI FOLLOW UP PLAN [employer] Test 08:36:55 [code = BMI FOLLOW UP of Med icine PLAN] Future Scheduled 2021-08-31 Screening for malignant [employer] Test 11:55:05 neoplasm of colon of Medicin e (procedure) [code = 529800654] Future Scheduled 2021-08-31 COVID-19 Vaccine (1) [employer] Test 11:55:05 [code = COVID-19 of Medicine Vaccine (1)] Future Scheduled 2021-08-31 TETANUS SHOT (ADULT) [employer] Test 11:55:05 [code = TETANUS SHOT of Medi cine (ADULT)] Future Scheduled 2021-08-31 Hepatitis C screening [facility] Test 11:55:05 (procedure) [code = of Medic ine 840234911] Future Scheduled 2021-08-31 ZOSTER VACCINE (1 of 2) [facility] Test 11:55:05 [code = ZOSTER VACCINE of Me dicine (1 of 2)] Future Scheduled 2021-08-31 MEDICARE IPPE (WELCOME [facility] [employer] Test 11:55:05 TO MEDICARE) [code = of Medi cine MEDICARE IPPE (WELCOME TO MEDICARE)] Future Scheduled 2021-08-31 Abdominal aortic [facility] Test 11:55:05 aneurysm screening of Medici ne (procedure) [code = 825474276] Future Scheduled 2021-08-31 FALL SCREEN [code = [employer] Test 11:55:05 FALL SCREEN] of Medicine Future Scheduled 2021-08-31 PNEUMOVAX >=65 (PPSV23) [facility] Test 11:55:05 [code = PNEUMOVAX >=65 of Me dicine (PPSV23)] Future Scheduled 2021-08-31 BMI FOLLOW UP PLAN [facility] [place] Test 11:55:05 [code = BMI FOLLOW UP of Med icine PLAN] Diagnostic Test 2021-08-31 MYOCARD PERFUSION - Expected: [facility] [employer] Pending 00:00:00 EXERCISE [code = 71815] 08/31/2021, of M edicine Expires: 03/01/2023 Future Scheduled 2021-08-30 US SCROTUM AND [employer] Test 11:22:02 TESTICLES [code = of Medicin e 74355-2] Future Scheduled 2021-08-18 US SCROTUM AND 1 Occurrences [employer] [employer] Test 15:55:28 TESTICLES [code = starting of Medicin e 90108-4] 08/18/2021 until 02/16/2022 Future Scheduled 2021-06-30 Screening for malignant [facility] Test 09:30:09 neoplasm of colon of Medicin e (procedure) [code = 664057757] Future Scheduled 2021-06-30 COVID-19 Vaccine (1) [facility] Test 09:30:09 [code = COVID-19 of Medicine Vaccine (1)] Future Scheduled 2021-06-30 TETANUS SHOT (ADULT) [employer] Test 09:30:09 [code = TETANUS SHOT of Medi cine (ADULT)] Future Scheduled 2021-06-30 Hepatitis C screening [employer] Test 09:30:09 (procedure) [code = of Medic ine 325002673] Future Scheduled 2021-06-30 Human immunodeficiency [facility] Test 09:30:09 virus screening of Medicine (procedure) [code = 421490990] Future Scheduled 2021-06-30 ZOSTER VACCINE (1 of 2) [employer] 09:30:09 [code = ZOSTER VACCINE of Me dicine (1 of 2)] Future Scheduled 2021-06-30 FLU VACCINE > 6 MONTHS [employer] Test 09:30:09 [code = FLU VACCINE > 6 of M edicine MONTHS] Future Scheduled 2021-06-30 BMI FOLLOW UP PLAN [facility] r [employer] Test 09:30:09 [code = BMI FOLLOW UP of Med icine PLAN] Future Scheduled 2021-06-25 Screening for malignant [employer] Test 17:28:09 neoplasm of colon of Medicin e (procedure) [code = 731559666] Future Scheduled 2021-06-25 COVID-19 Vaccine (1) [facility] [employer] Test 17:28:09 [code = COVID-19 of Medicine Vaccine (1)] Future Scheduled 2021-06-25 TETANUS SHOT (ADULT) [facility] [employer] Test 17:28:09 [code = TETANUS SHOT of Medi cine (ADULT)] Future Scheduled 2021-06-25 Hepatitis C screening [employer] Test 17:28:09 (procedure) [code = of Medic ine 940085992] Future Scheduled 2021-06-25 Human immunodeficiency [facility] [employer] Test 17:28:09 virus screening of Medicine (procedure) [code = 241114081] Future Scheduled 2021-06-25 ZOSTER VACCINE (1 of 2) [employer] 17:28:09 [code = ZOSTER VACCINE of Me dicine (1 of 2)] Future Scheduled 2021-06-25 FLU VACCINE > 6 MONTHS [facility] [employer] Test 17:28:09 [code = FLU VACCINE > 6 of M edicine MONTHS] Future Scheduled 2021-06-25 BMI FOLLOW UP PLAN [facility] r [employer] Test 17:28:09 [code = BMI FOLLOW UP of Med icine PLAN] Future Scheduled 2021-06-24 ELECTROCARDIOGRAM [employer] Test 14:56:41 COMPLETE [code = 67377] of M edicine Future Scheduled 2021-06-01 Screening for malignant [employer] Test 17:46:52 neoplasm of colon of Medicin e (procedure) [code = 809379921] Future Scheduled 2021-06-01 COVID-19 Vaccine (1) [employer] [facility] 17:46:52 [code = COVID-19 of Medicine Vaccine (1)] Future Scheduled 2021-06-01 TETANUS SHOT (ADULT) [employer] [facility] 17:46:52 [code = TETANUS SHOT of Medi cine (ADULT)] Future Scheduled 2021-06-01 Hepatitis C screening [employer] 17:46:52 (procedure) [code = of Medic ine 457046131] Future Scheduled 2021-06-01 Human immunodeficiency [facility] [employer] Test 17:46:52 virus screening of Medicine (procedure) [code = 342578803] Future Scheduled 2021-06-01 ZOSTER VACCINE (1 of 2) [employer] 17:46:52 [code = ZOSTER VACCINE of Vt dicine (1 of 2)] Future Scheduled 2021-06-01 FLU VACCINE > 6 MONTHS [employer] 17:46:52 [code = FLU VACCINE > 6 of edicine MONTHS] Future Scheduled 2021-06-01 BMI FOLLOW UP PLAN [facility] [employer] Test 17:46:52 [code = BMI FOLLOW UP of Med icine PLAN] Future Scheduled 2021-05-05 Screening for malignant [employer] 18:10:22 neoplasm of colon of Medicin e (procedure) [code = 061993885] Future Scheduled 2021-05-05 COVID-19 Vaccine (1) [employer] [facility] 18:10:22 [code = COVID-19 of Medicine Vaccine (1)] Future Scheduled 2021-05-05 TETANUS SHOT (ADULT) [employer] [facility] 18:10:22 [code = TETANUS SHOT of Medi cine (ADULT)] Future Scheduled 2021-05-05 Hepatitis C screening [employer] 18:10:22 (procedure) [code = of Medic ine 121977736] Future Scheduled 2021-05-05 Human immunodeficiency [facility] [employer] Test 18:10:22 virus screening of Medicine (procedure) [code = 324251252] Future Scheduled 2021-05-05 ZOSTER VACCINE (1 of 2) [facility] Test 18:10:22 [code = ZOSTER VACCINE of Me dicine (1 of 2)] Future Scheduled 2021-05-05 FLU VACCINE > 6 MONTHS B [facility] Test 18:10:22 [code = FLU VACCINE > 6 of M edicine MONTHS] Future Scheduled 2021-05-05 BMI FOLLOW UP PLAN [facility] Test 18:10:22 [code = BMI FOLLOW UP of Med icine PLAN] Future Scheduled 2021-04-08 CULTURE, Ordered: [employer] [employer] 13:52:19 URINE/SENSITIVITY ON 04/08/2021 of Medi cine ALL [code = 93720-5] Future Scheduled 2021-04-08 US SCROTUM AND 1 Occurrences [employer] [facility] 13:52:19 TESTICLES [code = starting of Medicin e 93703-5] 04/08/2021 until 10/08/2021 Future Scheduled 2021-04-08 Screening for malignant [facility] Test 13:41:00 neoplasm of colon of Medicin e (procedure) [code = 673519144] Future Scheduled 2021-04-08 COVID-19 Vaccine (1) [facility] Test 13:41:00 [code = COVID-19 of Medicine Vaccine (1)] Future Scheduled 2021-04-08 TETANUS SHOT (ADULT) [facility] Test 13:41:00 [code = TETANUS SHOT of Medi cine (ADULT)] Future Scheduled 2021-04-08 Hepatitis C screening [facility] Test 13:41:00 (procedure) [code = of Medic ine 484647496] Future Scheduled 2021-04-08 Human immunodeficiency B [facility] Test 13:41:00 virus screening of Medicine (procedure) [code = 749610138] Future Scheduled 2021-04-08 ZOSTER VACCINE (1 of 2) [facility] Test 13:41:00 [code = ZOSTER VACCINE of Me dicine (1 of 2)] Future Scheduled 2021-04-08 FLU VACCINE > 6 MONTHS B [facility] Test 13:41:00 [code = FLU VACCINE > 6 of M edicine MONTHS] Future Scheduled 2021-04-08 BMI FOLLOW UP PLAN [facility] Test 13:41:00 [code = BMI FOLLOW UP of Med icine PLAN] Diagnostic Test 2021-02-16 ECHO, COMPLETE [code = Expected: [employer] Pending 00:00:00 76864] 02/16/2021, of Medicine Expires: 08/18/2021 Future Scheduled COLON CANCER SCREENING: [employer] COLONOSCOPY [code = of Medic ine COLON CANCER SCREENING: COLONOSCOPY] Future Scheduled TETANUS SHOT (ADULT) [employer] [facility] [code = TETANUS SHOT [...] of Medicine Future Scheduled COLON CANCER SCREENING: [facility] Test COLONOSCOPY [code = of Medic ine COLON CANCER SCREENING: COLONOSCOPY] Future Scheduled TETANUS SHOT (ADULT) [employer] Test [code = TETANUS SHOT [...] edicine MONTHS] Future Scheduled COLON CANCER SCREENING: [facility] Test COLONOSCOPY [code = of Medic ine COLON CANCER SCREENING: COLONOSCOPY] Future Scheduled TETANUS SHOT (ADULT) [employer] [facility] [code = TETANUS SHOT [...] Future Scheduled ZOSTER VACCINE (1 of 2) [employer] Test [code = ZOSTER VACCINE of Me dicine (1 of 2)] Future Scheduled COLON CANCER SCREENING: [facility] Test COLONOSCOPY [code = of Medic ine COLON CANCER SCREENING: COLONOSCOPY] Future Scheduled TETANUS SHOT (ADULT) [employer] [facility] [code = TETANUS SHOT [...] Future Scheduled ZOSTER VACCINE (1 of 2) [employer] [facility] [code = ZOSTER VACCINE of Me dicine (1 of 2)] Future Scheduled COLON CANCER SCREENING: [employer] COLONOSCOPY [code = of Medic ine COLON CANCER SCREENING: COLONOSCOPY] Future Scheduled COVID-19 Vaccine [employer] Evaluation [code = of Medici ne COVID-19 Vaccine Evaluation] Future Scheduled TETANUS SHOT (ADULT) [employer] [facility] [code = TETANUS SHOT [...] Future Scheduled ZOSTER VACCINE (1 of 2) [employer] Test [code = ZOSTER VACCINE of Me dicine (1 of 2)] Future Scheduled COLON CANCER SCREENING: [employer] Test COLONOSCOPY [code = of Medic ine COLON CANCER SCREENING: COLONOSCOPY] Future Scheduled COVID-19 Vaccine [employer] Evaluation [code = of Medici ne COVID-19 Vaccine Evaluation] Future Scheduled TETANUS SHOT (ADULT) [employer] Test [code = TETANUS SHOT of Medi cine (ADULT)] Future Scheduled HEPATITIS C SCREENING [employer] Test [code = HEPATITIS C of Medic ine SCREENING] Future Scheduled HIV SCREENING [code = [employer] HIV SCREENING] of Medicine Future Scheduled ZOSTER VACCINE (1 of 2) [employer] Test [code = ZOSTER VACCINE of Me dicine (1 of 2)] Future Scheduled BMI FOLLOW UP PLAN [employer] Test [code = BMI FOLLOW UP of Med icine PLAN] Future Scheduled Screening for malignant [employer] neoplasm of colon of Medicin e (procedure) [code = 464095243] Future Scheduled TETANUS SHOT (ADULT) [employer] [facility] [code = TETANUS SHOT of Medi cine (ADULT)] Future Scheduled COVID-19 Vaccine (1) [employer] [facility] [code = COVID-19 of Medicine Vaccine (1)] Future Scheduled Hepatitis C screening [employer] [facility] (procedure) [code = of Medic ine 991446993] Future Scheduled Human immunodeficiency B [facility] [employer] Test virus screening of Medicine (procedure) [code = 900075146] Future Scheduled ZOSTER VACCINE (1 of 2) [employer] Test [code = ZOSTER VACCINE of Me dicine (1 of 2)] Future Scheduled BMI FOLLOW UP PLAN [employer] Test [code = BMI FOLLOW UP of Med icine PLAN] Future Scheduled ELECTROCARDIOGRAM [employer] COMPLETE [code = 92721] of M edicine Future Scheduled Screening for malignant [employer] neoplasm of colon of Medicin e (procedure) [code = 752899444] Future Scheduled TETANUS SHOT (ADULT) [employer] Test [code = TETANUS SHOT of Medi cine (ADULT)] Future Scheduled COVID-19 Vaccine (1) [employer] Test [code = COVID-19 of Medicine Vaccine (1)] Future Scheduled Hepatitis C screening [employer] Test (procedure) [code = of Medic ine 889941120] Future Scheduled Human immunodeficiency [employer] virus screening of Medicine (procedure) [code = 626202479] Future Scheduled ZOSTER VACCINE (1 of 2) [...] icine PLAN] Future Scheduled Screening for malignant [employer] neoplasm of colon of Medicin e (procedure) [code = 451706082] Future Scheduled TETANUS SHOT (ADULT) [employer] Test [code = TETANUS SHOT of Medi cine (ADULT)] Future Scheduled COVID-19 Vaccine (1) [employer] Test [code = COVID-19 of Medicine Vaccine (1)] Future Scheduled Hepatitis C screening [employer] Test (procedure) [code = of Medic ine 326859970] Future Scheduled Human immunodeficiency [employer] virus screening of Medicine (procedure) [code = 171957629] Future Scheduled ZOSTER VACCINE (1 of 2) [...] icine PLAN] Future Scheduled TETANUS SHOT (ADULT) [employer] Test [code = TETANUS SHOT [...] edicine MONTHS] Future Scheduled COLON CANCER SCREENING: [facility] Test COLONOSCOPY [code = of Medic ine COLON CANCER SCREENING: COLONOSCOPY] Future Scheduled CTA CORONARY W/CALCIUM 1 Occurrences [employer] SCORING W/CONTRAST starting of Medici ne [code = 66847] 02/16/2021 until 02/16/2022 Future Scheduled US 1 Occurrences [employer] Test AORTA,IVC,ILIACS,GRAFT starting of Vt dicine COMPLETE DUPLEX [code = 01/25/2021 until 61878-9] 01/25/2022 Future Scheduled US CAROTID [code = 1 Occurrences [employer] 49163] starting of Medicine 01/25/2021 until 01/25/2022 Future Scheduled US ARTERIAL LEG LEFT 1 Occurrences [employer] Test [code = 35721] starting of Medicine 12/07/2020 until 07/07/2021 Future Scheduled CTA ABD AORTA AND 1 Occurrences [employer] Test ILIOFEMORAL RUNOFF starting of Medici ne [code = 82108] 12/07/2020 until 07/07/2021 Future Scheduled TREADMILL, NO IMAGING 1 Occurrences [employer] Test [code = 67771] starting of Medicine 04/23/2020 until 04/23/2021 Future Scheduled NOVEL 2019 1 Occurrences [employer] CORONAVIRUS(COVID-19),N starting of M edicine AA [code = U0004] 04/23/2020 until 10/23/2020 Encounters Start End Encounter Admission Attending Care Care Encounter Source Date/Time Date/Time Type Type Clinicians Facility Department ID 2022-03-24 Outpatient Pickett, [facility] [id number] Common 13:04:00 Edilson [facility] 2022-03-01 Outpatient Pickett, [facility] [id number] Common 10:33:01 Edilson [facility] 2022-01-17 Outpatient Pickett, [facility] [id number] Common 13:26:00 [facility] [id number] [facility] 2021-12-24 Outpatient Pickett, STLMLC STLMLC [id number] Common 12:30:01 Edilson [facility] 2021-12-01 Outpatient Pickett, STLMLC STLMLC [id number] Common 14:39:55 [facility] 2021-12-01 Outpatient Pickett, STLMLC STLMLC [id number] Common 14:24:19 Edilson [address] [facility] 2021-12-01 Outpatient [place], STLMLC STLC [id number] Common 14:03:48 Rj [id number] [facility] 2021-12-01 Outpatient [place], STLMLC STLC [id number] Common 13:53:57 Rj [id number] [facility] 2021-12-01 Outpatient [place], [facility] [id number] Common 13:42:50 Rj 64723 [facility] 2021-12-01 Outpatient [place], [facility] [id number] Common 11:04:27 Rj 12259 [facility] 2021-08-15 Inpatient YUMIKO, [facility] Surgery [id number] SLE 03:03:46 COURTNEY 2021-08-14 Outpatient ALAM, [facility] Surgery [id number] SLE 23:18:50 LADONNA 2021-08-14 Outpatient JARRELL, [facility] Surgery [id number] SLE 04:42:31 MARIUSZ 2022-04-15 2022-04-15 ambulatory STLMLC STLC [id number] Common 00:00:00 00:00:00 [facility] 2022-04-12 2022-04-12 Office PETE NICOLE 1.2.840.114 [id number] [facility] 13:59:16 15:48:48 Visit AMBULATOR 350.1.13.21 College Y 0.2.7.2.686 of [id number] [facility] 800 e 2022-03-29 2022-03-29 Office Pete Nicole [facility] 1.2.840.114 [id number] [facility] 15:00:00 15:40:00 Visit AMBULATOR 350.1.13.21 College Y 0.2.7.2.686 of [id number] [facility] 800 e 2022-03-25 2022-03-25 ambulatory STLMLC STLMLC [id number] Common 00:00:00 00:00:00 [facility] 2022-03-24 2022-03-24 ambulatory STLMLC STLMLC [id number] Common 00:00:00 00:00:00 [facility] 2022-03-18 2022-03-18 Office CARINE TINAJERO 1.2.840.114 [id number] [employer] 09:50:45 11:50:51 Visit RAMYAR AMBULATOR 350.1.13.21 College Y 0.2.7.2.686 of [id number] [facility] 825 e 2022-03-16 2022-03-16 Office CARINE WHITE 1.2.840.114 [id number] [employer] 14:27:41 14:27:41 Visit CHUCKIE AMBULATOR 350.1.13.21 College Y 0.2.7.2.686 of [id number] [facility] 300 e 2022-03-02 2022-03-02 ambulatory STLMLC STLMLC [id number] Common 00:00:00 00:00:00 [facility] 2022-03-02 2022-03-02 ambulatory STLMLC STLMLC [id number] Common 00:00:00 00:00:00 [facility] 2022-02-23 2022-02-23 ambulatory STLMLC STLMLC [id number] Common 00:00:00 00:00:00 [facility] 2022-02-14 2022-02-14 Office CARINE Alston 1.2.840.114 [id number] [employer] 11:00:00 14:24:56 Visit Jose Raul A AMBULATOR 350.1.13.21 College Y 0.2.7.2.686 of [id number] Medi aleksandra 825 e 2022-02-10 2022-02-10 Office JOSIANE Dennison 1.2.840.114 [id number] [employer] 15:40:00 16:13:18 Visit Mohan AMBULATOR 350.1.13.21 College Y 0.2.7.2.686 of [id number] [facility] aleksandra 375 e 2022-02-01 2022-02-01 Outpatient BCM BCM [id number] [place] 12:42:59 16:31:50 Colleg e of Medicin e 2022-01-20 2022-01-20 Outpatient BCM BCM [id number] [place] 10:42:13 13:17:54 [facility] [employer] [facility]in e 2022-01-20 2022-01-20 Outpatient BCM BCM [id number] [facility] 10:43:15 10:43:15 [facility]in e 2022-01-18 2022-01-18 Outpatient BCM M [id number] [facility] 10:51:05 11:54:20 [facility] [employer] [facility] e 2022-01-17 2022-01-17 ambulatory STLMLC STLMLC [id number] Common 00:00:00 00:00:00 [facility] 2022-01-14 2022-01-14 ambulatory STLMLC STLMLC [id number] Common 00:00:00 00:00:00 [facility] 2022-01-13 2022-01-13 ambulatory STLMLC STLMLC [id number] Common 00:00:00 00:00:00 [facility] 2021-12-20 2021-12-20 Office JOSIANE Perera [id number] [id number] [employer] 13:00:00 14:00:00 Visit Erlinda A AMBULATOR 350.1.13.21 College Y 0.2.7.2.686 of [id number] [facility] aleksandra 800 e 2021-12-10 2021-12-10 Outpatient BCM [facility] [id number] [facility] 08:00:12 10:11:56 [facility] [employer] 2021-12-10 2021-12-10 Office JOSIANE Tinajero 1.2.840.114 [id number] [employer] 09:30:00 10:05:44 Visit Ramyar AMBULATOR 350.1.13.21 College Y 0.2.7.2.686 of [id number] [facility] 825 e 2021-12-08 2021-12-08 ambulatory STLMLC STLMLC [id number] Common 00:00:00 00:00:00 [facility] 2021-12-02 2021-12-02 ambulatory STLMLC STLMLC [id number] Common 00:00:00 00:00:00 [facility] 2021-12-02 2021-12-02 ambulatory STLMLC STLMLC [id number] Common 00:00:00 00:00:00 [facility] 2021-11-19 2021-11-19 ambulatory STLMLC STLMLC [id number] Common 00:00:00 00:00:00 [facility] 2021-11-17 2021-11-17 Office JOSIANE DENNISON 1.2.840.114 [id number] [facility] 13:03:04 14:55:25 Visit MOHAN AMBULATOR 350.1.13.21 College Y 0.2.7.2.686 of [id number] [facility] 375 e 2021-11-12 2021-11-12 Office Pili BCSamir 1.2.840.114 [id number] [employer] 16:30:00 17:17:27 Visit Arley AMBULATOR 350.1.13.21 College Y 0.2.7.2.686 of [id number] [facility] 300 e 2021-11-11 2021-11-11 ambulatory STLMLC STLMLC [id number] Common 00:00:00 00:00:00 [facility] 2021-11-09 2021-11-09 ambulatory STLMLC STLMLC [id number] Common 00:00:00 00:00:00 [facility] 2021-11-02 2021-11-02 ambulatory STLMLC STLMLC [id number] Common 00:00:00 00:00:00 [facility] 2021-10-20 2021-10-20 ambulatory STLMLC STLMLC [id number] Common 00:00:00 00:00:00 [facility] 2021-10-19 2021-10-19 Outpatient [facility] [id number] [place] 11:01:06 12:52:47 Daniihenrik Medicin e 2021-10-14 2021-10-14 ambulatory STLMLC STLMLC [id number] Common 00:00:00 00:00:00 [facility] 2021-10-13 2021-10-13 ambulatory STLMLC STLMLC [id number] Common 00:00:00 00:00:00 [facility] 2021-10-12 2021-10-12 ambulatory STLMLC STLMLC [id number] Common 00:00:00 00:00:00 [facility] 2021-10-12 2021-10-12 ambulatory STLMLC STLMLC [id number] Common 00:00:00 00:00:00 [facility] 2021-10-12 2021-10-12 ambulatory STLMLC STLMLC [id number] Common 00:00:00 00:00:00 [facility] 2021-10-04 2021-10-04 ambulatory STLMLC STLMLC [id number] Common 00:00:00 00:00:00 [facility] 2021-09-27 2021-09-27 Office Jarrell, BC 1.2.840.114 [id number] [facility] 14:15:00 16:03:36 Visit Mariusz AMBULATOR 350.1.13.21 College Gonzalo Y 0.2.7.2.686 of [id number] [facility] aleksandra 825 e 2021-09-27 2021-09-27 ambulatory STLMLC STLMLC [id number] Common 00:00:00 00:00:00 [facility] 2021-09-22 2021-09-22 Office Cindy, BCM 1.2.840.114 [id number] [employer] 15:30:00 15:45:00 Visit Chuckie AMBULATOR 350.1.13.21 College Y 0.2.7.2.686 of [id number] Medi aleksandra 300 e 2021-09-21 2021-09-21 ambulatory STLMLC STLMLC [id number] Common 00:00:00 00:00:00 [facility] 2021-09-16 2021-09-16 ambulatory STLMLC STLMLC [id number] Common 00:00:00 00:00:00 [facility] 2021-09-16 2021-09-16 ambulatory STLMLC STLMLC [id number] Common 00:00:00 00:00:00 [facility] 2021-09-10 2021-09-10 Outpatient NORA LANDRY, [facility] SLE [id number] SLE 12:59:41 23:59:00 [facility] 2021-08-31 2021-08-31 Office CARINE DENNISON 1.2.840.[id number] [place] [address] 10:18:03 12:06:43 Visit MOHAN AMBULATOR 350.1.13.21 College Y 0.2.7.2.686 of [id number] Medi aleksandra 375 e 2021-08-30 2021-08-30 Outpatient [facility] [id number] [place] 11:22:02 11:22:02 Kathy hu of Medicin e 2021 2021 Outpatient STLMLC STLMLC [id number] Common 00:00:00 00:00:00 [facility] 2021-08-18 2021-08-18 Office JOSIANE WHITE 1.2.840.114 [id number] [facility] 13:58:10 16:01:54 Visit CHUCKIE AMBULATOR 350.1.13.21 College Y 0.2.7.2.686 of [id number] Medi aleksandra 300 e 2021-08-18 2021-08-18 Outpatient STLMLC STLMLC [id number] Common 00:00:00 00:00:00 [facility] 2021-08-12 2021-08-12 Outpatient STLMLC STLMLC [id number] Common 00:00:00 00:00:00 [facility] 2021-07-27 2021-07-27 Outpatient [facility] [id number] [place] 09:13:01 09:53:29 [facility] [employer] [facility] [employer] 2021-07-07 2021-07-07 Outpatient KAMI SCHUMACHER [facility] [id number] SLE 00:00:00 00:00:00 [facility] 2021-07-05 2021-07-05 Outpatient STLMLC STLMLC [id number] Common 00:00:00 00:00:00 [facility] 2021-07-05 2021-07-05 Outpatient STLMLC STLMLC [id number] Common 00:00:00 00:00:00 [facility] 2021-07-05 2021-07-05 Outpatient STLMLC STLMLC [id number] Common 00:00:00 00:00:00 [facility] 2021-06-30 2021-06-30 Office CARINE White 1.2.840.114 [id number] [place] 08:49:23 09:04:23 Visit Chuckie AMBULATOR 350.1.13.21 College Y 0.2.7.2.686 of [id number] Medi aleksandra 300 e 2021-06-24 2021-06-24 Office CARINE Dennison 1.2.840.114 [id number] [employer] 14:34:41 16:00:10 Visit Mohan AMBULATOR 350.1.13.21 College Y 0.2.7.2.686 of [id number] Medi aleksandra 375 e 2021-06-15 2021-06-15 Outpatient [facility] [id number] [place] 12:51:35 12:51:35 [facility] [employer] [facility]in e 2021-06-14 2021-06-14 Outpatient WESLY [facility] [id number] [place] 07:55:20 13:28:21 MARIUSZ [facility] [employer] 2021-06-14 2021-06-14 Outpatient [facility] [id number] [place] 07:54:56 10:48:49 [facility] [employer] e 2021-06-02 2021-06-02 Outpatient KAMI SCHUMACHER [facility] [id number] SLE 00:00:00 00:00:00 [facility] 2021-06-01 2021-06-01 Office JOSIANE Dennison 1.2.840.[id number] [place] [address] 14:20:18 15:45:02 Visit Mohan AMBULATOR 350.1.13.21 College Y 0.2.7.2.686 [id number] Medi aleksandra 375 e 2021-05-15 2021-05-15 Outpatient M [facility] [id number] [place] 00:00:00 23:59:00 [facility] [employer] 2021-05-13 2021-05-13 Outpatient [facility] [id number] [place] 07:37:00 23:59:00 [facility] [employer] [facility]in e 2021-05-12 2021-05-12 [id number] SLE 00:00:00 00:00:00 2021-05-11 2021-05-11 Outpatient [facility] [id number] [facility] 00:00:00 00:00:00 2021-05-04 2021-05-04 Outpatient [facility] [id number] [place] 00:00:00 23:59:00 [facility] [employer] [facility] 2021-04-29 2021-04-29 Outpatient [facility] [id number] [place] 00:00:00 23:59:00 [facility] [employer] 2021-04-29 2021-04-29 Outpatient [facility] [id number] SLE 00:00:00 00:00:00 2021-04-27 2021-04-27 Outpatient [facility] [id number] Common 00:00:00 00:00:00 [facility] 2021-04-08 2021-04-20 Outpatient JOSIANE RUIZ [facility] [id number] [place] 11:27:25 19:51:25 BASIL [employer] 2021-04-20 2021-04-20 Outpatient [facility] [id number] Common 00:00:00 00:00:00 [facility] 2021-04-14 2021-04-16 Office JOSIANE White 1.2.840.114 [id number] 14:55:42 16:49:34 Visit Chuckie AMBULATOR 350.1.13.21 Y 0.2.7.2.686 [id number] 2021-04-14 2021-04-16 Office JOSIANE White 1.2.840.114 [id number] [place] 14:55:42 16:49:34 Visit Chuckie AMBULATOR 350.1.13.21 College Y 0.2.7.2.686 of [id number] Medi aleksandra 300 e 2021-04-08 2021-04-08 Office JOSIANE Ruiz 1.2.840.114 [id number] 13:31:23 14:01:23 Visit Basil AMBULATOR 350.1.13.21 Y 0.2.7.2.686 [id number] 300 2021-04-08 2021-04-08 Office JOSIANE Ruiz 1.2.840.114 [id number] [place] 13:31:23 14:01:23 Visit Basil AMBULATOR 350.1.13.21 College Y 0.2.7.2.686 of [id number] Medi aleksandra 300 e 2021-04-08 2021-04-08 Outpatient [facility] [id number] [place] 00:00:00 00:00:00 [facility] e 2021-03-22 2021-03-[address] [facility] [facility] [id number] [facility] 00:00:00 00:00:00 PEVELY 2021-03-16 2021-03-16 Outpatient KAMI PALACIOS [facility] [id number] SLE 00:00:00 00:00:00 PEVELY 2021-03-05 2021-03-05 Outpatient [facility] [id number] [place] 08:06:07 13:36:08 [facility] e [facility] Medicin e 2021-03-03 2021-03-03 Office JOSIANE White 1.2.840.114 [id number] 12:05:37 12:20:37 Visit Chuckie AMBULATOR 350.1.13.21 Y 0.2.7.2.686 [id number] 300 2021-03-03 2021-03-03 Office HwiteJOSIANE mendosa 1.2.840.[id number] [place] [address] 12:05:37 12:20:37 Visit Chuckie AMBULATOR 350.1.13.21 College Y 0.2.7.2.686 of [id number] [facility] aleksandra 300 e 2021-02-18 2021-02-18 Outpatient STLC STLC [id number] Common 00:00:00 00:00:00 [facility] 2021-02-16 2021-02-16 Office JOSIANE Dennison 1.2.840.114 [id number] 09:21:06 10:13:12 Visit Mohan AMBULATOR 350.1.13.21 Y 0.2.7.2.686 [id number] 375 2021-02-16 2021-02-16 Office JOSIANE Dennison 1.2.840.[id number] [place] [address] 09:21:06 10:13:12 Visit Mohan AMBULATOR 350.1.13.21 College Y 0.2.7.2.686 of [id number] [facility] aleksandra 375 e 2021-01-25 2021-01-25 Office JOSIANE Jarrell 1.2.840.114 [id number] 11:06:09 12:30:03 Visit Mariusz AMBULATOR 350.1.13.21 Gonzalo Y 0.2.7.2.686 [id number] 2021-01-25 2021-01-25 Office JOSIANE Jarrell 1.2.840.114 [id number] [place] 11:06:09 12:30:03 Visit Mariusz AMBULATOR 350.1.13.21 College Gonzalo Y 0.2.7.2.686 of [id number] [facility] aleksandra 825 e 2021-01-22 2021-01-22 Outpatient BCM BCM [id number] [place] 09:09:43 17:09:11 Kathy hu of Medicin e 2021-01-04 2021-01-04 Outpatient SLE SLE [id number] [facility]H 00:00:00 00:00:00 2020-12-07 2020-12-07 Office Wesly, BCM 1.2.840.114 [id number] [facility] 09:22:17 15:25:48 Visit Mariusz AMBULATOR 350.1.13.21 Gonzalo Y 0.2.7.2.686 [id number] 2020-12-07 2020-12-07 Office Wesly, BCM 1.2.840.[id number] [place] [address] 09:22:17 15:25:48 Visit Mariusz AMBULATOR 350.1.13.21 College Gonzalo Y 0.2.7.2.686 of [id number] [facility] aleksandra 825 e 2020-12-02 2020-12-02 Office Cindy, CARINEM 1.2.840.114 [id number] 57 14:28:34 14:43:34 Visit Chuckie AMBULATOR 350.1.13.21 Y 0.2.7.2.686 [id number] 300 2020-12-02 2020-12-02 Office Cindy, CARINEM 1.2.840.114 [id number] 57 [place] 14:28:34 14:43:34 Visit Chuckie AMBULATOR 350.1.13.21 College Y 0.2.7.2.686 of [id number] [facility] aleksandra 300 e 2020-11-25 2020-11-25 Outpatient STLMLC STLMLC [id number] Common 00:00:00 00:00:00 [facility] 2020-11-16 2020-11-16 Outpatient STLC STLMLC [id number] Common 00:00:00 00:00:00 [facility] 2020-10-12 2020-10-12 Office Christiano, CARINESamir 1.2.840.114 [id number] 13:52:12 14:22:12 Visit Khai AMBULATOR 350.1.13.21 Y 0.2.7.2.686 [id number] 800 2020-10-12 2020-10-12 Office Christiano, BCM 1.2.840.114 [id number] [place] 13:52:12 14:22:12 Visit Khai AMBULATOR 350.1.13.21 College Y 0.2.7.2.686 of [id number] Medi aleksandra 800 e 2020-09-08 2020-09-08 Outpatient GOGIA, MHSE MHSE 7500 07:57:00 23:59:00 KO foote [facility] 2020-08-06 2020-08-06 Office JOSIANE Alvarado 1.2.840.114 [id number] 14:02:58 14:46:32 Visit Khai AMBULATOR 350.1.13.21 Y 0.2.7.2.686 [id number] 800 2020-08-06 2020-08-06 Office JOSIANE Alvarado 1.2.840.[id number] [place] [address] 14:02:58 14:46:32 Visit Khai AMBULATOR 350.1.13.21 College Y 0.2.7.2.686 of [id number] [facility] aleksandra 800 e 2020-07-28 2020-07-28 Outpatient STLC [facility] [id number] Common 00:00:00 00:00:00 [facility] 2020-07-16 2020-07-16 [facility] [id number] Common 16:13:00 16:13:00 [facility] 2020-07-14 2020-07-14 [facility] [id number] Common 09:30:00 09:30:00 t [facility] Bone [facility] Sp[facility] t and Joint [facility] - [facility] 2020-06-01 2020-06-01 [facility] [id number] Common 09:00:00 09:00:00 t [facility] Sp[facility] t [facility] 2020-04-23 2020-04-23 Office JOSIANE Dennison 1.2.840.114 [id number] 11:27:32 11:47:32 Visit Mohan AMBULATOR 350.1.13.21 Y 0.2.7.2.686 [id number] [facility] 2020-04-23 2020-04-23 Office JOSIANE Dennison 1.2.840.[id number] [place] [address] 11:27:32 11:47:32 Visit Mohan AMBULATOR 350.1.13.21 College Y 0.2.7.2.686 of [id number] [facility] 375 e 2020-01-22 2020-01-22 Office JOSIANE Steiner 1.2.840.114 [id number] 09:35:07 10:05:07 Visit Kalen AMBULATOR 350.1.13.21 Young Y 0.2.7.2.686 [id number] 800 2020-01-22 2020-01-22 Office JOSIANE Steiner 1.2.840.114 [id number] [place] 09:35:07 10:05:07 Visit Kalen AMBULATOR 350.1.13.21 College Young Y 0.2.7.2.686 of [id number] [facility] 800 e 2020-01-22 2020-01-22 Outpatient [facility] [id number] Common 08:07:00 08:07:00 t Bone Bone and Spiri t and Joint Joint - [facility] 2020-01-08 2020-01-08 Outpatient [facility] [id number] Common 12:23:00 12:23:00 t Bone Bone and Spiri t and Joint [facility] - [facility] 2019-12-23 2019-12-23 Outpatient [facility] [id number] Common 08:00:00 08:00:00 t Bone Bone and Spiri t and Joint Joint - [facility] 2019-10-10 2019-10-10 Outpatient [facility] [id number] Common 09:37:00 09:37:00 t Bone Bone and Spiri t and Joint Joint - [facility] 2019-10-09 2019-10-09 Outpatient [facility] [id number] Common 15:29:00 15:29:00 t Bone Bone and Spiri t and Joint Joint - [facility] 2019-09-09 2019-09-09 Outpatient Brazaurora [facility] [id number] Common 16:12:00 16:12:00 t Bone Bone and Spiri t and Joint Joint - [facility] 2019-09-02 2019-09-02 Outpatient Tila Tadeo [id number] Common 12:24:00 12:24:00 t Bone Bone and Spiri t and Joint [facility] - [facility] 2019-08-22 2019-08-22 Outpatient Tila Tadeo [id number] Common 09:00:00 09:00:00 t Bone Bone and Spiri t and Joint [facility] - [facility] 2019-08-16 2019-08-16 Office JOSIANE Tuttle 1.2.840.114 [id number] 12:53:30 13:30:16 Visit Ruth AMBULATOR 350.1.13.21 Tangela-Kendall Y 0.2.7.2.686 [id number] [facility] 2019-08-16 2019-08-16 Office JOSIANE Tuttle 1.2.840.[id number] [place] [address] 12:53:30 13:30:16 Visit Ruth AMBULATOR 350.1.13.21 [place] Tangela-Kendall Y 0.2.7.2.686 of [id number] [facility] 800 e 2019-07-25 2019-07-25 Outpatient Tila Tadeo [id number] Common 10:00:00 10:00:00 t Bone Bone and Spiri t and Joint Joint - [facility] 2019-07-21 2019-07-21 Outpatient Tila Tadeo 27 [id number] Common 20:21:00 20:21:00 t Bone Bone and Spiri t and Joint [facility] - [facility] Results Test Description Test Time Test Comments Results Result Comments Source POCT URINALYSIS DIPSTICK 2022-03-16 00:00:00 Test Item Value Reference Range Interpretation Comme nts COLOR UA (test code = 5778-6) Yellow YELLOW/STRAW CLARITY UA (test code = 14901-5) Clear CLEAR GLUCOSE UA (test code = 5792-7) Negative NEGATIVE BILIRUBIN UA (test code = 5770-3) Negative NEGATIVE KETONES UA (test code = 70826-8) Negative NEGATIVE SPECIFIC GRAVITY UA (test code = 5811-5) 1.005-1.035 BLOOD UA (test code = 5794-3) Negative NEGATIVE PH UA (test code = 5803-2) 5-9 PROTEIN UA (test code = 5804-0) Negative NEGATIVE UROBILINOGEN UA (test code = 5818-0) 0.02 E.U/DL NORMAL MG/DL LEUKOCYTE ESTERASE UA (test code = 5799-2) Negative NEGATIVE NITRITE UA (test code = 5802-4) Negative NEGATIVE REDUCING SUBSTANCES URINE (test code = 30359-2) [facility] [id number] 00:00:00 Test Item Value Reference Range Interpretation Comments COLOR UA (test code = 5778-6) Yellow YELLOW/STRAW CLARITY UA (test code = 72235-4) Clear CLEAR GLUCOSE UA (test code = 5792-7) Negative NEGATIVE BILIRUBIN UA (test code = 5770-3) Negative NEGATIVE KETONES UA (test code = 17491-2) Negative NEGATIVE SPECIFIC GRAVITY UA (test code = 1.005-1.035 5811-5) BLOOD UA (test code = 5794-3) Negative NEGATIVE PH UA (test code = 5803-2) 5-9 PROTEIN UA (test code = 5804-0) Negative NEGATIVE UROBILINOGEN UA (test code = 0.02 E.U/DL NORMAL MG/DL 5818-0) LEUKOCYTE ESTERASE UA (test code Negative NEGATIVE = 5799-2) NITRITE UA (test code = 5802-4) Negative NEGATIVE REDUCING SUBSTANCES URINE (test code = 04173-3) [facility] CTA AAA, W/ DARRIUS.EXT.[id number] 17:50:00 [facility] CENTERName: KERON TELLEZ : 1955 Sex: MAddendum BeginsREPORT STATUS:A I have reviewed the CT images for this study and I concur with the nonvascular imaging findings as dictated. Signed: Irvin Shin MDReport Verified Date/Time: 09/16/2021 17:50:50 Reading Location: [facility] Diagnostic Imaging Reading Room - [facility] 1.310.12Addendum EndsFINAL REPORT CT angiography of the abdominal aorta and runoff, 10-Sep-21 INDICATION: This is a 66 year old male with diagnosis of arterial embolism of the lower extremity presents for assessment. TECHNIQUE: Spiral acquisition before and during intravenous contrast administration using a Siemens multidetector CT scanner. Images were obtained before and during the dynamic passage of intravenous contrast material. Multi-planar 3-D volume- rendering reconstruction was performed using an independent workstation [...] is identified in the distal RCA. The p roximal abdominal aorta is unremarkable with minimal calcification [...] least moderate lesion present. In the presence ofcalcification, hemodynamic significant is difficult to comment upon. Thereafter remainder of the coeliac axis and SMA are widely patent they are well enhanced by contrast. The CESAR is widely patent. Tworight renal arteries are seen that are widely patent, with minimal nonobstructive calcification seenin the right main renal artery. Nonobstructive calcification is seen in the takeoff the left renal artery with early branching identified. Single left and two right renal veins are seen draining into the IVC. Above the aortic bifurcation, vascular stents are seen, extending into the left and the rightcommon iliac arteries, in the setting of substantial calcification in the [place] vasculature. The 2 stents are widely patent with no in-stent stenosis identified bilaterally. Thereafter, the [place] distal left and right external iliac arteries [...] iliac artery and the right common femoral arteryare widely patent with minimal nonobstructive calcification seen in the distal right common femoral artery. The right SFA is widely patent. The right profunda system is widely patent. The right popliteal artery is widely patent with minimal eccentric nonobstructive calcification identified proximally.The right lower extremity, better seen in the second dynamic data set, nonobstructive calcification is seen in the right tibioperoneal trunk. The right peroneal artery is patent and become a small calibre vessel distally. The right anterior tibial artery is patent with focal calcification seen proximally. Remainder of the artery is well enhanced by contrast and the dorsalis pedis artery is well seen.The right posterior tibial artery has focal calcification [...] angiography as enteric contrast is not given. Noobvious bowel dilation is identified. The appendix appears unremarkable. No free air or free fluid is seen abdomen pelvis and no significant retroperitoneal adenopathy is identified. The prostate gland is mildly prominent. Some wall thickening is identified in the bladder that could be due to outlet obstruction, however, please kindly correlate for presence or absence of cystitis symptoms. No acute b gary pathology is seen. Bone islands identified in [...] in the setting of calcific atherosclerosis. No in- stent stenosis is seen. Remainder the left and the right pelvic arteries are patent nonobstructive calcification identified. 3. The SFA and the profunda system as well as the popliteal arteries, bilaterally, have no obstructive lesion identified with minimal atherosclerosis seen. 4. Details of the runoff vessels as described above. 5. Other findings as described above. 6. An addendum will be dictated by the Cutting Machine Fixer Radiologist regarding the nonvascular findings. THE REPORT WILL ONLY BE CONSIDERED COMPLETE AFTER THE ADDENDUM HAS BEEN DICTATED. Signed: Placido Hess Verified Date/Time: 09/11/2021 09:17:52 [id number] 09:51:07 Test Item Value Reference Range Interpretation Comments POC-CREATININE 0.6 mg/dL 0.6-1.3 : TESTED AT [facility] ([place]) (test [address] code = 1859) [place], [address]: Taker Off Hemp Fiber/Techni jolanta ID = [id number] for Paul Cannon POC-EGFR ([place]) 135 mL/min/1.73M2 (test code = 1860) POCT URINALYSIS [id number] 00:00:00 Test Item Value Reference Range Interpretation Comments COLOR UA (test code = 5778-6) Yellow YELLOW/STRAW CLARITY UA (test code = 54390-7) Clear CLEAR GLUCOSE UA (test code = 5792-7) Negative NEGATIVE BILIRUBIN UA (test code = 5770-3) Negative NEGATIVE KETONES UA (test code = 09211-7) Negative NEGATIVE SPECIFIC GRAVITY UA (test code [...] NEGATIVE REDUCING SUBSTANCES URINE (test code = 45835-7) [facility] [id number] 00:00:00 Test Item Value Reference Range Interpretation Comments COLOR UA (test code = 5778-6) Yellow YELLOW/STRAW CLARITY UA (test code = 39522-5) Clear CLEAR GLUCOSE UA (test code = 5792-7) Negative NEGATIVE BILIRUBIN UA (test code = 5770-3) Negative NEGATIVE KETONES UA (test code = 93773-4) Negative NEGATIVE SPECIFIC GRAVITY UA (test code [...] NEGATIVE REDUCING SUBSTANCES URINE (test code = 59668-4) [facility] Center[facility], 1 VIEW, NON [id number] 07:11:00Reason for exam:->ctShould this be performed at the bedside?->Yes [facility] CENTERName: KERON TELLEZ : 1955 Sex: MFINAL REPORT RAD, CHEST, 1 VIEW, NON DEPT INDICATION: ct COMPARISON: Prior day's exam FINDINGS: Portable frontal view of the chest. IMPRESSION: Support Lines: None Lungs and pleura: Scattered subsegmental atelectasis. No new consolidation. No pneumothorax.Heart andmediastinum: Stable contours. Additional findings: None. Signed: JR Philip Robert MDReport Verified Date/Time: 05/17/2021 07:11:01 Reading Location: [facility] Radiology Reading Room BASIC METABOLIC [id number] 06:35:00 Test Item Value Reference Range Interpretation [...] S NOT APPLICABLE FOR DIALYSIS PATIEN TS. Taker Off Hemp Fiber ID - TINY [id number] 06:35:00 Test Item Value Reference Range Interpretation Comments MAGNESIUM (BEAKER) (test code = 2.0 mg/dL 1.6-2.6 627) Taker Off Hemp Fiber ID - TINY [id number] 06:35:00 Test Item Value Reference Range Interpretation Comments PHOSPHORUS (BEAKER) (test code = 4.0 mg/dL 2.3-4.7 604) Taker Off Hemp Fiber ID - TINY WCBC W/PLT COUNT & AUTO [id number] 05:58:00 Test Item Value Reference Range Interpretation [...] (BEAKER) (test code = 2801) BASIC METABOLIC [id number] 08:28:00 Test Item Value Reference Range Interpretation [...] S NOT APPLICABLE FOR DIALYSIS PATIEN TS. Taker Off Hemp Fiber LUCIAN TOBIAS [id number] 08:28:00 Test Item Value Reference Range Interpretation Comments MAGNESIUM (BEAKER) (test code = 2.1 mg/dL 1.6-2.6 627) Taker Off Hemp Fiber ID - JATINDER [id number] 08:28:00 Test Item Value Reference Range Interpretation Comments PHOSPHORUS (BEAKER) (test code = 3.1 mg/dL 2.3-4.7 604) Taker Off Hemp Fiber ID - JATINDER WRAD, CHEST, 1 VIEW, NON [id number] 07:51:00Reason for exam:->ctShould this be performed at the bedside?->Yes [facility] 1955 Sex: MFINAL REPORT History: Chest [...] probable bilateral lower lobe atelectasis. Signed: Irvin Shin Verified Date/Time: 05/16/2021 07:51:48 Reading Location: [address] Reading Room POCT-GLUCOSE [id number] 07:47:00 Test Item Value Reference Range Interpretation Comments POC-GLUCOSE METER 106 mg/dL 70-110 : TESTED A T [facility] 6720 (BEAKER) (test code = [address], 1538) [address]: Taker Off Hemp Fiber/Techni jolanta ID = [id number] for BRITNI LUU CBC W/PLT COUNT & AUTO [id number] 07:05:00 Test Item Value Reference Range Interpretation [...] PERCENT (BEAKER) (test code = 2801) CALCIUM, [id number] 07:04:00 Test Item Value Reference Range Interpretation Comments CALCIUM IONIZED (BEAKER) (test 1.17 mmol/L 1.12-1.27 code = 698) PH, BLOOD (BEAKER) (test code = 7.39 1810) POCT-GLUCOSE [id number] 21:25:00 Test Item Value Reference Range Interpretation Comments POC-GLUCOSE METER 131 mg/dL 70-110 H : TESTED A T [facility] 6720 (BEAKER) (test code = [facility], 1538) [address]: Taker Off Hemp Fiber/Techni jolanta ID = [id number] for Co Tai vana POCT-GLUCOSE [id number] 17:55:00 Test Item Value Reference Range Interpretation Comments POC-GLUCOSE METER 106 mg/dL 70-110 : TESTED A T [facility] 6720 (BEAKER) (test code = [facility], 1538) [address]: Taker Off Hemp Fiber/Techni jolanta ID = [id number] for Kalen AGUSTIN POCT-GLUCOSE [id number] 12:51:00 Test Item Value Reference Range Interpretation Comments POC-GLUCOSE METER 116 mg/dL 70-110 H : TESTED A T [facility] 6720 (BEAKER) (test code = [facility], 153) [address]: Taker Off Hemp Fiber/Techni jolanta ID = [id number] for GO NZALEZ, LLANE RAD, CHEST, 1 VIEW, NON [id number] 08:07:00Reason for exam:->ctShould this be performed at the bedside?->Yes [facility] 1955 Sex: MFINAL REPORT Chest one view. Clinical history: ct Comparison: May 14, 2021 Discussion: A frontal chest is provided. Cardiomediastinal contours are unchanged. Right IJ line has been removed. A left-sided chest tube is in stable position. Stable streaky left basilar opacity. No new consolidation. No pneumothorax or large effusion. Signed: Regine Mooney Verified Date/Time: 05/15/2021 08:07:09 Reading Location: [address] Ortho Consult Reading Room POCT-GLUCOSE [id number] 08:00:00 Test Item Value Reference Range Interpretation Comments POC-GLUCOSE METER 120 mg/dL 70-110 H : TESTED A T [facility] 6720 (BEAKER) (test code = [place] [facility], 1538) [address]: Taker Off Hemp Fiber/Techni jolanta ID = [id number] for Lexus Hernández BASIC METABOLIC [id number] 06:15:00 Test Item Value Reference Range Interpretation [...] S NOT APPLICABLE FOR DIALYSIS PATIEN TS. Taker Off Hemp Fiber ID - [id number] 06:15:00 Test Item Value Reference Range Interpretation Comments MAGNESIUM (BEAKER) (test code = 2.0 mg/dL 1.6-2.6 627) Taker Off Hemp Fiber ID - [id number] 06:15:00 Test Item Value Reference Range Interpretation Comments PHOSPHORUS (BEAKER) (test code = 3.1 mg/dL 2.3-4.7 604) Taker Off Hemp Fiber ID - EDASICBC W/PLT COUNT & AUTO [id number] 05:47:00 Test Item Value Reference Range Interpretation [...] 0-1 PERCENT (BEAKER) (test code = 2801) [id number] 08:39:00 Test Item Value Reference Range Interpretation Comments MAGNESIUM (BEAKER) (test code = 1.9 mg/dL 1.6-2.6 627) Taker Off Hemp Fiber ID - ADMINRAD, CHEST, 1 VIEW, NON [id number] 07:57:00while patient is intubated or has chest tubes.Reason for exam:->Status post CV SurgeryShould thisbe performed at the bedside?->Yes [facility] FERMIN : 1955 Sex: MFINAL REPORT TECHNIQUE: Frontal [...] MDReport Verified Date/Time: 05/14/2021 07:57:54 Reading Location: [facility] Diagnostic Imaging Reading Room - [place] [address] 1129 [id number] 06:59:00 Test Item Value Reference Range Interpretation Comments MAGNESIUM (BEAKER) 5.3 mg/dL 1.6-2.6 HH Specimen slightly (test code = 627) hemolyzed Taker Off Hemp Fiber ID - PIAYA [id number] 06:38:00 Test Item Value Reference Range Interpretation Comments ACTIVATED CLOTTING TIME 109 sec : 74 -137 seconds, (BEAKER) (test code = Baseli ne: TESTED AT 441) [address], [facility] 30: Taker Off Hemp Fiber/Techni jolanta ID = [id number] for DERIK KUHN [id number] 06:38:00 Test Item Value Reference Range Interpretation Comments ACTIVATED CLOTTING TIME 125 sec : 74 -137 seconds, (BEAKER) (test code = Baseli ne: TESTED AT 441) [address], [facility] 30: Taker Off Hemp Fiber/Techni jolanta ID = [id number] for DERIK KUHN [id number] 06:38:00 Test Item Value Reference Range Interpretation Comments ACTIVATED CLOTTING TIME 318 sec : 74 -137 seconds, (BEAKER) (test code = Baseli ne: TESTED AT 441) [address], [facility] 30: Taker Off Hemp Fiber/Techni jolanta ID = [id number] for DERIK KUHN [id number] 06:38:00 Test Item Value Reference Range Interpretation Comments ACTIVATED CLOTTING TIME 290 sec : 74 -137 seconds, (BEAKER) (test code = Baseli ne: TESTED AT 441) [facility] 6720 [facility], 770 30: Taker Off Hemp Fiber/Techni jolanta ID = [id number] for DERIK KUHN [id number] 06:37:00 Test Item Value Reference Range Interpretation Comments ACTIVATED CLOTTING TIME 224 sec : 74 -137 seconds, (BEAKER) (test code = Baseli ne: TESTED AT 441) [facility] 6720 [facility], 770 30: Taker Off Hemp Fiber/Techni jolanta ID = [id number] for DERIK KUHN [id number] 06:06:00 Test Item Value Reference Range Interpretation Comments PHOSPHORUS (BEAKER) 4.1 mg/dL 2.3-4.7 Specimen slightly (test code = 604) hemolyzed Taker Off Hemp Fiber ID - PIAYA LBASIC METABOLIC [id number] 06:06:00 Test Item Value Reference Range Interpretation [...] S NOT APPLICABLE FOR DIALYSIS PATIEN TS. Taker Off Hemp Fiber ID - PIAYA LCBC (HEMOGRAM ONLY)2021-05-14 05:17:00 [...] (BEAKER) (test code = 413) BLOOD GAS, [id number] 05:15:00 Test Item Value Reference Range Interpretation [...] (BEAKER) (test code = 1819) 36.0 GLUCOSE-STAT [id number] 05:15:00 Test Item Value Reference Range Interpretation Comments GLUCOSE RANDOM (BEAKER) (test code 137 mg/dL 70-110 H = 652) HGB/HCT (H&H) - STAT [id number] 05:15:00 Test Item Value Reference Range Interpretation Comments HEMOGLOBIN (BEAKER) (test code = 13.2 GM/DL 13.0-16.8 410) HEMATOCRIT (BEAKER) (test code = 39.0 % 40.0-50.0 L 411) CALCIUM, [id number] 05:15:00 Test Item Value Reference Range Interpretation Comments CALCIUM IONIZED (BEAKER) (test 1.17 mmol/L 1.12-1.27 code = 698) PH, BLOOD (BEAKER) (test code = 7.38 1810) SODIUM NA-STAT [id number] 05:13:00 Test Item Value Reference Range Interpretation Comments SODIUM (BEAKER) (test code = 381) 137 meq/L 136-145 POTASSIUM-STAT [id number] 05:13:00 Test Item Value Reference Range Interpretation Comments POTASSIUM (BEAKER) (test code = 4.0 meq/L 3.6-5.5 379) RAD, CHEST, 1 VIEW, NON [id number] 03:17:00Reason for exam:->Status post CV Surgery post op day 0Should this be performed at the bedside?->Yes [facility] : 1955 Sex: MFINAL REPORT RAD, CHEST, [...] MDReport Verified Date/Time: 05/14/2021 03:17:59 BASIC METABOLIC [id number] 19:57:00 Test Item Value Reference Range Interpretation [...] S NOT APPLICABLE FOR DIALYSIS PATIEN TS. Taker Off Hemp Fiber ID - [id number] 19:52:00 Test Item Value Reference Range Interpretation Comments MAGNESIUM (BEAKER) (test code = 2.1 mg/dL 1.6-2.6 627) Taker Off Hemp Fiber ID - [id number] 19:52:00 Test Item Value Reference Range Interpretation Comments PHOSPHORUS (BEAKER) (test code = 3.5 mg/dL 2.3-4.7 604) Taker Off Hemp Fiber ID - DBLACTIC ACID, [id number] 19:47:00 Test Item Value Reference Range Interpretation Comments LACTATE BLOOD ARTERIAL (2) 1.2 mmol/L 0.5-2.2 (BEAKER) (test code = 2874) Taker Off Hemp Fiber ID - [id number] 19:36:00 Test Item Value Reference Range Interpretation Comments FIBRINOGEN LEVEL (BEAKER) (test 311 mg/dl 225-434 code = 658) [id number] 19:36:00 Test Item Value Reference Range Interpretation Comments PARTIAL THROMBOPLASTIN TIME 27.4 seconds 22.5-36.0 (BEAKER) (test code = 760) PROTHROMBIN [id number] 19:35:00 Test Item Value Reference Range Interpretation Comments PROTIME (BEAKER) 14.8 seconds 11.9-14.2 H (test code = 759) INR (BEAKER) (test 1.18 See_Comment [Automat ed message] code = 370) The system OpenPortal generated this result transmitted ref erence range: [...] (BEAKER) (test code = 2801) BLOOD GAS, [id number] 19:15:00 Test Item Value Reference Range Interpretation [...] 36.4 (test code = 1818) BLOOD GAS, [id number] 18:36:00 Test Item Value Reference Range Interpretation [...] (BEAKER) (test code = 1819) 54.0 GLUCOSE-STAT [id number] 18:36:00 Test Item Value Reference Range Interpretation Comments GLUCOSE RANDOM (BEAKER) (test code 132 mg/dL 70-110 H = 652) HGB/HCT (H&H) - STAT [id number] 18:36:00 Test Item Value Reference Range Interpretation Comments HEMOGLOBIN (BEAKER) (test code = 11.7 GM/DL 13.0-16.8 L 410) HEMATOCRIT (BEAKER) (test code = 34.0 % 40.0-50.0 L 411) SODIUM NA-STAT [id number] 18:35:00 Test Item Value Reference Range Interpretation Comments SODIUM (BEAKER) (test code = 381) 138 meq/L 136-145 POTASSIUM-STAT [id number] 18:35:00 Test Item Value Reference Range Interpretation Comments POTASSIUM (BEAKER) (test code = 3.7 meq/L 3.6-5.5 379) LACTIC ACID, [id number] 16:33:00 Test Item Value Reference Range Interpretation Comments LACTATE BLOOD ARTERIAL (2) 1.1 mmol/L 0.5-2.2 (BEAKER) (test code = 2874) Taker Off Hemp Fiber ID - EMERSONBLOOD GAS, [id number] 15:41:00 Test Item Value Reference Range Interpretation [...] = 1819) 50.0 HGB/HCT (H&H) - STAT [id number] 15:41:00 Test Item Value Reference Range Interpretation Comments HEMOGLOBIN (BEAKER) (test code = 12.9 GM/DL 13.0-16.8 L 410) HEMATOCRIT (BEAKER) (test code = 38.0 % 40.0-50.0 L 411) GLUCOSE-STAT [id number] 15:40:00 Test Item Value Reference Range Interpretation Comments GLUCOSE RANDOM (BEAKER) (test code 108 mg/dL 70-110 = 652) SODIUM NA-STAT [id number] 15:40:00 Test Item Value Reference Range Interpretation Comments SODIUM (BEAKER) (test code = 381) 139 meq/L 136-145 POTASSIUM-STAT [id number] 15:40:00 Test Item Value Reference Range Interpretation Comments POTASSIUM (BEAKER) (test code = 4.0 meq/L 3.6-5.5 379) CALCIUM, [id number] 15:18:00 Test Item Value Reference Range Interpretation Comments CALCIUM IONIZED (BEAKER) (test 1.09 mmol/L 1.12-1.27 L code = 698) PH, BLOOD (BEAKER) (test code = 7.41 1810) BLOOD GAS, [id number] 15:16:00 Test Item Value Reference Range Interpretation [...] (BEAKER) (test code = 1819) 55.0 POTASSIUM-STAT [id number] 15:16:00 Test Item Value Reference Range Interpretation Comments POTASSIUM (BEAKER) (test code = 3.4 meq/L 3.6-5.5 L 379) HGB/HCT (H&H) - STAT [id number] 15:16:00 Test Item Value Reference Range Interpretation Comments HEMOGLOBIN (BEAKER) (test code = 11.8 GM/DL 13.0-16.8 L 410) HEMATOCRIT (BEAKER) (test code = 35.0 % 40.0-50.0 L 411) GLUCOSE-STAT [id number] 15:08:00 Test Item Value Reference Range Interpretation Comments GLUCOSE RANDOM (BEAKER) (test code 107 mg/dL 70-110 = 652) SODIUM NA-STAT [id number] 15:08:00 Test Item Value Reference Range Interpretation Comments SODIUM (BEAKER) (test code = 381) 138 meq/L 136-145 LACTIC ACID, [id number] 15:07:00 Test Item Value Reference Range Interpretation Comments LACTATE BLOOD VENOUS (2) (BEAKER) 0.99 mmol/L 0.50-2.20 (test code = 2872) Taker Off Hemp Fiber ID - EMERSONHGB/HCT (H&H) - STAT [id number] 14:38:00 Test Item Value Reference Range Interpretation Comments HEMOGLOBIN (BEAKER) (test code = 12.9 GM/DL 13.0-16.8 L 410) HEMATOCRIT (BEAKER) (test code = 38.0 % 40.0-50.0 L 411) CALCIUM, [id number] 14:38:00 Test Item Value Reference Range Interpretation Comments CALCIUM IONIZED (BEAKER) (test 1.22 mmol/L 1.12-1.27 code = 698) PH, BLOOD (BEAKER) (test code = 7.36 1810) BLOOD GAS, [id number] 14:37:00 Test Item Value Reference Range Interpretation [...] (BEAKER) (test code = 1819) 73.0 GLUCOSE-STAT [id number] 14:37:00 Test Item Value Reference Range Interpretation Comments GLUCOSE RANDOM (BEAKER) (test code 102 mg/dL 70-110 = 652) SODIUM NA-STAT [id number] 14:37:00 Test Item Value Reference Range Interpretation Comments SODIUM (BEAKER) (test code = 381) 139 meq/L 136-145 POTASSIUM-STAT [id number] 14:37:00 Test Item Value Reference Range Interpretation Comments POTASSIUM (BEAKER) (test code = 3.8 meq/L 3.6-5.5 379) CALCIUM, [id number] 13:40:00 Test Item Value Reference Range Interpretation Comments CALCIUM IONIZED (BEAKER) (test 1.12 mmol/L 1.12-1.27 code = 698) PH, BLOOD (BEAKER) (test code = 7.43 1810) GLUCOSE-STAT [id number] 13:39:00 Test Item Value Reference Range Interpretation Comments GLUCOSE RANDOM (BEAKER) (test code 104 mg/dL 70-110 = 652) SODIUM NA-STAT [id number] 13:39:00 Test Item Value Reference Range Interpretation Comments SODIUM (BEAKER) (test code = 381) 140 meq/L 136-145 POTASSIUM-STAT [id number] 13:39:00 Test Item Value Reference Range Interpretation Comments POTASSIUM (BEAKER) (test code = 3.7 meq/L 3.6-5.5 379) BLOOD GAS, [id number] 13:39:00 Test Item Value Reference Range Interpretation [...] = 1819) 79.0 HGB/HCT (H&H) - STAT [id number] 13:39:00 Test Item Value Reference Range Interpretation Comments HEMOGLOBIN (BEAKER) (test code = 13.3 GM/DL 13.0-16.8 410) HEMATOCRIT (BEAKER) (test code = 39.0 % 40.0-50.0 L 411) POCT-GLUCOSE [id number] 09:40:00 Test Item Value Reference Range Interpretation Comments POC-GLUCOSE METER 115 mg/dL 70-110 H : TESTED A T [facility] 6720 (BEAKER) (test code = RACHEL RODAS MS, 1538) 00037: Taker Off Hemp Fiber/Techni jolanta ID = [id number] for CLAYTON LEWIS SARS-COV2/RT-PCR ([facility])2021-05-12 01:07:00 Test Item Value Reference Range Interpretation Comments SARS-COV2/RT-PCR (test Negative Not Detected, Negative, code = 4829955) See external report for linked test SARS-COV-2 PERFORMING LAB [facility] CRISTIAN (test code = 3461227) Negative result for this test determines that [...] Arias SARS-CoV-2 assay.Fact Sheet for Healthcare Providers:https://www.molecular.arias/gisel/ KE_BOHI-UpL-9_BAR_Telc_Tvqao_28-209638.pdfFact Sheet for Healthcare Patients:https://www.TV Compass.ab afia/gisel/CA_NTQF-ImM-2_Ersaznb_Xslq_Ajill_HB_72-775836Q7.pdfPerforming Laboratory:[facility] [place] [address] HEMOGLOBIN [id number] 13:53:00 Test Item Value Reference Range Interpretation Comments HEMOGLOBIN A1C (BEAKER) (test code = 6.4 % 4.3-6.1 H 368) COMPREHENSIVE METABOLIC [id number] 13:44:00 Test Item Value Reference Range Interpretation [...] S NOT APPLICABLE FOR DIALYSIS PATIEN TS. Taker Off Hemp Fiber ID - [id number] 13:44:00 Test Item Value Reference Range Interpretation Comments MAGNESIUM (BEAKER) (test code = 2.3 mg/dL 1.6-2.6 627) Taker Off Hemp Fiber ID - DBLIPID [id number] 13:44:00 Test Item Value Reference Range Interpretation [...] Borderline 130-159 High 160-189 Very High >=190 Taker Off Hemp Fiber ID - [id number] 13:40:00 Test Item Value Reference Range Interpretation Comments PARTIAL THROMBOPLASTIN TIME 28.0 seconds 22.5-36.0 (BEAKER) (test code = 760) PROTHROMBIN TIME/[id number] 13:39:00 Test Item Value Reference Range Interpretation Comments PROTIME (BEAKER) 12.7 seconds 11.9-14.2 (test code = 759) INR (BEAKER) (test 0.97 See_Comment [Automat ed message] code = 370) The system OpenPortal generated this result transmitted ref erence range: [...] (test code = 2801) HIGH SENSITIVITY TROPONIN [id number] 21:19:00 Test Item Value Reference Range Interpretation Comments HIGH SENSITIVITY 36 pg/ml See_Comment H [Automated message] TROPONIN I (test code = The system which [id number]) generated this result transmitted ref erence range: <=35. Th e reference range was not used to int erpret this result as normal/abnormal . Taker Off Hemp Fiber ID - CINDY BThe TAR BOILER STAT High Sensitivity Troponin-I results should be used in conjunction with other diagnostic information such as ECG, clinical observations and information, and patient symptoms to aid in the diagnosis of [place].HIGH SENSITIVITY TROPONIN [id number] 13:20:00 Test Item Value Reference Range Interpretation Comments HIGH SENSITIVITY 36 pg/ml See_Comment H [Automated message] TROPONIN I (test code = The system which [id number]) generated this result transmitted ref erence range: <=35. Th e reference range was not used to int erpret this result as normal/abnormal . Taker Off Hemp Fiber ID - MARICEL CThe TAR BOILER STAT High Sensitivity Troponin-I results should be used in conjunction with other diagnostic information such as ECG, clinical observations and information, and patientsymptoms to aid in the diagnosis of TN. BASIC METABOLIC [id number] 04:46:00 Test Item Value Reference Range Interpretation [...] S NOT APPLICABLE FOR DIALYSIS PATIEN TS. Taker Off Hemp Fiber ID - JAK [id number] 04:46:00 Test Item Value Reference Range Interpretation Comments MAGNESIUM (BEAKER) (test code = 2.1 mg/dL 1.6-2.6 627) Taker Off Hemp Fiber ID - JAK MCBC W/PLT COUNT & AUTO [id number] 04:32:00 Test Item Value Reference Range Interpretation [...] PERCENT (BEAKER) (test code = 2801) CT, [id number] 22:08:00Unlisted Reason for Exam - Click Yes and Enter Reason Below->YesUnlisted Reason for Exam->Evaluate descending aorta calcification to femoral iliac vessels, prior to cabgWill this procedure require oral contrast?->No [facility] : 1955 Sex: MFINAL [...] with bilateral common iliac artery stents. Signed:Sharita Pedraza Verified Date/Time: 05/03/2021 22:08:57 Reading Location: [address] Reading Room [id number] 16:21:00 Test Item Value Reference Range Interpretation Comments ACTIVATED CLOTTING TIME 131 sec : 74 -137 seconds, (BEAKER) (test code = Baseli ne: TESTED AT 441) [address], [facility] 30: Taker Off Hemp Fiber/Techni jolanta ID = [id number] for ILLORY (V), IGNACIO [id number] 15:12:00 Test Item Value Reference Range Interpretation Comments ACTIVATED CLOTTING TIME 158 sec : 74 -137 seconds, (BEAKER) (test code = Baseli ne: TESTED AT 441) [address], [facility] 30: Taker Off Hemp Fiber/Techni jolanta ID = [id number] for ILLORY (V), IGNACIO [id number] 12:13:00 Test Item Value Reference Range Interpretation Comments ACTIVATED CLOTTING TIME 290 sec : 74 -137 seconds, (BEAKER) (test code = Baseli ne: TESTED AT 441) [address], [facility] 30: Taker Off Hemp Fiber/Techni jolanta ID = [id number] for CA RPIO, [place] [id number] 12:00:00 Test Item Value Reference Range Interpretation Comments ACTIVATED CLOTTING TIME 252 sec : 74 -137 seconds, (BEAKER) (test code = Baseli ne: TESTED AT 441) [address], [facility] 30: Taker Off Hemp Fiber/Techni jolanta ID = [id number] for CA RPIO, [place] BASIC METABOLIC [id number] 08:47:00 Test Item Value Reference Range Interpretation [...] S NOT APPLICABLE FOR DIALYSIS PATIEN TS. Taker Off Hemp Fiber ID - AAHAMIDPROTHROMBIN TIME/[id number] 08:38:00 Test Item Value Reference Range Interpretation Comments PROTIME (BEAKER) 13.1 seconds 11.9-14.2 (test code = 759) INR (BEAKER) (test 1.01 See_Comment [Automat ed message] code = 370) The system OpenPortal generated this result transmitted ref erence range: [...] PERCENT (BEAKER) (test code = 2801) SARS-COV2/RT-PCR ([facility])2021-04-29 18:08:00 Test Item Value Reference Range Interpretation Comments SARS-COV2/RT-PCR (test Negative Not Detected, Negative, code = 5360271) See external report for linked test SARS-COV-2 PERFORMING LAB [facility] (test code = 2895598) Negative result for this test determines that [...] 564(g) of the Act.Fact Sheet for Healthcare Providers:https://www.Notify Technology/sites/default/files/product/documents/Fact_Shee n_TO_Okvciwcxc_Gyhc_HHTX-NjY-7.pdfFact Sheet for Healthcare Patients:https://www.Notify Technology/sites/default/files/product/ documents/Rqzh_Ceoye_Utjxphzc_Qfxl_DTNM-NdG-4.pdfPerforming Laboratory:[facility] [place], [place] [address]ranjit [facility].[place], [place] [address]FUBYK METABOLIC PANEL 2021-04-29 13:20:00 Test Item Value [...] S NOT APPLICABLE FOR DIALYSIS PATIEN TS. Taker Off Hemp Fiber ID - JAK MPROTHROMBIN TIME/[id number] 11:14:00 Test Item Value Reference Range Interpretation Comments PROTIME (BEAKER) 13.3 seconds 11.9-14.2 (test code = 759) INR (BEAKER) (test 1.03 See_Comment [Automat ed message] code = 370) The system OpenPortal generated this result transmitted ref erence range: [...] (BEAKER) (test code = 2801) POCT URINALYSIS [id number] 00:00:00 Test Item Value Reference Range Interpretation Comments COLOR UA (test code = 5778-6) Colorless YELLOW/STRAW CLARITY UA (test code = 70101-3) Clear CLEAR GLUCOSE UA (test code = 5792-7) Negative NEGATIVE BILIRUBIN UA (test code = 5770-3) Negative NEGATIVE KETONES UA (test code = 18333-1) Negative NEGATIVE SPECIFIC GRAVITY UA (test code [...] REDUCING SUBSTANCES URINE (test NEGATIVE code = 75048-4) [employer] College of MedicineCT, CTA, CORONARY, WITH TRANG [id number] 13:53:00 [facility] CENTERName: KERON TELLEZ : 1955 Sex: MFINAL REPORT EXAM: CALCIUM SCORE AND CORONARY CTA INDICATION: Chest pain, acute, nonspecific COMPARISON: None. TECHNIQUE: Multi-detector CT technology was employed ( [employer] CT 750 HD 64 MDCT [employer]). Minimal slice thickness was performed following the [...] RCA. Preliminary report was communicated to Dr. Dennison via email (which was answered immediately) on 03/22/2021 at 4:45 PM. Signed: Kayla Jesus MDReport VerifiedDate/Time: 03/23/2021 13:53:11 POCT-CREATININE 2021-03-22 10:20:00 Test Item Value Reference Range Interpretation Comments POC-CREATININE 0.9 mg/dL 0.6-1.3 : TESTED AT [facility] ([facility]) (test [address] [facility] [address] [facility] code = 1859) [facility] 7 7030: Taker Off Hemp Fiber/Techni jolanta ID = [id number] for IRVIN EPPERSON POC-EGFR 85 mL/min/1.73M2 ([facility]) (test code = 1860) POCT URINALYSIS [id number] 00:00:00 Test Item Value Reference Range Interpretation Comments COLOR UA (test code = 5778-6) Yellow YELLOW/STRAW CLARITY UA (test code = 64393-8) Clear CLEAR GLUCOSE UA (test code = 5792-7) Negative NEGATIVE BILIRUBIN UA (test code = 5770-3) Negative NEGATIVE KETONES UA (test code = 28473-8) Negative NEGATIVE SPECIFIC GRAVITY UA (test code [...] NEGATIVE REDUCING SUBSTANCES URINE (test code = 12801-3) [facility])2021-01-05 02:00:00 Test Item Value Reference Range Interpretation Comments SARS-COV2/RT-PCR (test Negative Not Detected, Negative, code = 2005987) See external report for linked test SARS-COV-2 PERFORMING LAB [facility] CRISTIAN (test code = 2671563) Negative result for this test determines that [...] of the Act.Testing was performed using the Arisa SARS-CoV-2 assay.Fact Sheet for Healthcare Providers:https://www.molecular.arias/gisel/ XL_WDSY-QwB-2_HDN_Oxko_Djsor_10-357130.pdfFact Sheet for Healthcare Patients:https://www.molecular.ab afia/gisel/UK_BHJG-ScM-6_Disqjkp_Jayy_Rxjyo_EN_27-702176D1.pdfPerforming Laboratory:[place] [address] [place] [address] BASIC METABOLIC [id number] 13:40:00 Test Item Value Reference Range Interpretation [...] S NOT APPLICABLE FOR DIALYSIS PATIEN TS. Taker Off Hemp Fiber ID - JAK MPROTHROMBIN TIME/[id number] 13:21:00 Test Item Value Reference Range Interpretation Comments PROTIME (BEAKER) 12.7 seconds 11.9-14.2 (test code = 759) INR (BEAKER) (test 0.99 See_Comment [Automat ed message] code = 370) The system OpenPortal generated this result transmitted ref erence range: [...] mechanical heart valves.CBC W/PLT COUNT & AUTO [id number] 13:14:00 Test Item Value Reference Range Interpretation [...] (BEAKER) (test code = 2801) POCT URINALYSIS [id number] 00:00:00 Test Item Value Reference Range Interpretation Comments COLOR UA (test code = 5778-6) Colorless YELLOW/STRAW CLARITY UA (test code = 33903-7) Clear CLEAR GLUCOSE UA (test code = 5792-7) Negative NEGATIVE BILIRUBIN UA (test code = 5770-3) Negative NEGATIVE KETONES UA (test code = 40806-1) Negative NEGATIVE SPECIFIC GRAVITY UA (test code [...] NEGATIVE REDUCING SUBSTANCES URINE (test code = 43485-5) [facility] [id number] 10:00:00FINAL REPORT History: Numbness and tinglingComparison studies: [...] MDReport Verified Date/Time: 05/03/2019 10:00:48 Reading Location: [facility] Reading Room [address] [place] [address] CBC W/PLT COUNT & AUTO [id number] 06:59:00 Test Item Value Reference Range Interpretation [...] (BEAKER) (test code = 2801) BASIC METABOLIC [id number] 06:03:00 Test Item Value Reference Range Interpretation [...] NOT APPLICABLE FOR DIALYSIS PATIEN TS. HEMOGLOBIN [id number] 08:52:00 Test Item Value Reference Range Interpretation Comments HEMOGLOBIN A1C (BEAKER) (test code = 5.8 % 4.3-6.1 368) LIPID [id number] 06:11:00 Test Item Value Reference Range Interpretation [...] High 160-189 Very High >=190 FastingBASIC METABOLIC [id number] 06:11:00 Test Item Value Reference Range Interpretation [...] PATIEN TS. FastingCBC W/PLT COUNT & AUTO [id number] 05:06:00 Test Item Value Reference Range Interpretation [...] (test code = 2801) TSH/FREE T4 IF [id number] 19:14:00 Test Item Value Reference Range Interpretation Comments THYROID STIMULATING HORMONE 0.53 uIU/mL 0.35-4.94 (BEAKER) (test code = 772) VITAMIN B12 AND [id number] 19:14:00 Test Item Value Reference Range Interpretation Comments VITAMIN B12 (BEAKER) (test code = 660 pg/mL 213-816 774) FOLATE (BEAKER) (test code = 362) 6.9 ng/mL >=7.0 L BASIC METABOLIC [id number] 18:39:00 Test Item Value Reference Range Interpretation [...] FOR DIALYSIS PATIEN TS. MR, BRAIN, WITHOUT [id number] 16:16:00Reason for exam:->StrokeWhat is the patient's sedation [...] None available. TECHNIQUE: 2 D and 3-D thno-bc-awkyye MRA images of the intra- and extracranial [...] is antegrade in both vertebral arteries. MRA [place]: There is a inferiorly to [...] be considered if clinically appropriate. Signed: Regine Mooneyeport Verified Date/Time: 03/03/2019 16:16:12 Reading Location: [address] Neuro Reading Room MR, MRA, BRAIN, WITHOUT [id number] 16:16:00Reason for exam:- >Ischemic Stroke EvaluationFINAL REPORT [...] None available. TECHNIQUE: 2 D and 3-D rabp-pk-jasnik MRA images of the intra- and extracranial [...] is antegrade in both vertebral arteries. MRA [place]: There is a inferiorly to [...] be considered if clinically appropriate. Signed: Regine Mooneyort Verified Date/Time: 03/03/2019 16:16:12 Reading Location: [address] Neuro Reading Room MR, MRA, NECK, WITHOUT IV [id number] 16:16:00Reason for exam:->Ischemic Stroke EvaluationFINAL REPORT MRI [...] None available. TECHNIQUE: 2 D and 3-D xjoo-mb-zfqukg MRA images of the intra- and extracranial [...] is antegrade in both vertebral arteries. MRA [place]: There is a inferiorly to [...] be considered if clinically appropriate. Signed: Regine Mooneyeport Verified Date/Time: 03/03/2019 16:16:12 Reading Location: [address] Neuro Reading Room LIPID [id number] 04:08:00 Test Item Value Reference Range Interpretation [...] High 160-189 Very High >=190 FastingBASIC METABOLIC [id number] 04:08:00 Test Item Value Reference Range Interpretation [...] PATIEN TS. FastingCBC W/PLT COUNT & AUTO [id number] 03:54:00 Test Item Value Reference Range Interpretation [...] = 2801) CBC W/PLT COUNT & AUTO [id number] 20:55:00 Test Item Value Reference Range Interpretation [...] (BEAKER) (test code = 2801) BASIC METABOLIC [id number] 20:44:00 Test Item Value Reference Range Interpretation [...]
--- NOTE | 2022-04-17 20:50 | RAD REPORT ---
EXAM DESCRIPTION: USExtremity Venous Uni Ltd04/17/2022 8:42 pm CLINICAL HISTORY: left leg pain COMPARISON: None FINDINGS: Left common femoral, superficial femoral, popliteal and posterior tibial veins are compre ssible and demonstrate augmentation. Doppler demonstrates good flow. Grayscale, color and spectral analysis performed on all vessels IMPRESSION: No evidence of deep venous thrombosis involving the left lower extremity.
[2022-04-17] MEDS ORDERED: HYDROCODONE/APAP 7.5/325 MG TAB ONE (21:03)
--- NOTE | 2022-04-17 21:16 | ER ---
Nurse's Notes [facility] Name: John Moreno Age: 66 yrs Sex: Male : 1955 Arrival Date: 04/17/2022 Time: 19:42 Bed 12 [facility] MD: Diagnosis: Pain in left leg Presentation: 04/17 19:54 Chief complaint: Patient states: I have had left leg pain starting at my butt radiating jb4 down to my thigh. It has been happening on and off since February. Coronavirus screen: At this time, the client does not indicate any symptoms associated with coronavirus-19. Ebola Screen: No symptoms or risks identified at this time. Initial Sepsis Screen: Does the patient meet any 2 criteria? No. Patient's initial sepsis screen is negative. Does the patient have a suspected source of infection? No. Patient's initial sepsis screen is negative. Risk Assessment: Do you want to hurt yourself or someone else? Patient reports no desire to harm self or others. Onset of symptoms was March 03, 2022. Transition of care: patient was not received from another setting of care. 19:54 Method Of Arrival: Ambulatory jb4 19:54 Acuity: JEFFRY 4 jb4 Historical: - Allergies: 19:56 No Known Allergies; jb4 - Home Meds: 19:56 amlodipine 10 mg tab [Active]; Aspirin Oral [Active]; atorvastatin 10 mg Oral tab jb4 [Active]; Cyclobenzaprine Oral [Active]; duloxetine 30 mg Oral cpDR [Active]; losartan 50 mg Oral tab [Active]; omeprazole 40 mg Oral cpDR [Active]; - PMHx: 19:56 coronary atherosclerosis; Hyperlipidemia; Hypertension; jb4 - PSHx: 19:56 heart cath; stents in legs; Cardiac bypass; jb4 - Immunization history:: Adult Immunizations up to date, Client reports having NOT received the Covid vaccine. - Social history:: Smoking status: Patient/guardian denies using tobacco. Screenin:00 Abuse screen: Denies threats or abuse. Nutritional screening: No deficits noted. jb4 Tuberculosis screening: No symptoms or risk factors identified. Fall Risk None identified. Assessment: 20:00 General: Appears in no apparent distress. uncomfortable, Behavior is calm, cooperative, jb4 appropriate for age. Pain: Complains of pain in left hip and lateral aspect of left thigh Pain does not radiate. Pain currently is 8 out of 10 on a pain scale. Neuro: Level of Consciousness is awake, alert, obeys commands, Oriented to person, place, time, situation. Cardiovascular: Patient's skin is warm and dry. Respiratory: Airway is patent Respiratory effort is even, unlabored, Respiratory pattern is regular, symmetrical. GI: No signs and/or symptoms were reported involving the gastrointestinal system. : No signs and/or symptoms were reported regarding the genitourinary system. EENT: No signs and/or symptoms were reported regarding the EENT system. Derm: Skin is intact, Skin is pink, warm \T\ dry. 21:45 Reassessment: Patient appears in no apparent distress at this time. Patient and/or jb4 family updated on plan of care and expected duration. Pain level reassessed. Patient is alert, oriented x 3, equal unlabored respirations, skin warm/dry/pink. Vital Signs: 19:54 BP 145 / 72; Pulse 76; Resp 18; Temp 98.5(TE); Pulse Ox 97% on R/A; Weight 79.38 kg jb4 (R); Height 5 ft. 4 in. (162.56 cm) (R); Pain 8/10; 21:45 BP 128 / 68; Pulse 69; Resp 16; Pulse Ox 98% on R/A; jb4 19:54 Body Mass Index 30.04 (79.38 kg, 162.56 cm) jb4 ED Course: 19:42 Patient arrived in ED. bp1 19:45 Let[facility] Daigle [facility]C [facility]. kb 19:45 Jorge Craig MD is Attending Physician. kb 19:56 Triage completed. jb4 19:58 Arm band placed on right wrist. jb4 20:03 Patient has correct armband on for positive identification. Bed in low position. Call mh5 light in reach. Side rails up X 1. Adult w/ patient. Warm blanket given. Pulse ox on. NIBP on. 20:24 Tone Bunch, RN is Primary Nurse. jb4 20:44 US Extremity Venous Unilateral Ltd In Process Unspecified. EDMS 21:45 No provider procedures requiring assistance completed. Patient did not have IV access jb4 during this emergency room visit. Administered Medications: 20:59 Not Given (Patient Refused): [place] (HYDROcodone-acetaminophen) (7.5 mg-325 mg) 1 tabs jb4 PO once Medication: 21:45 VIS not applicable for this client. jb4 Outcome: 21:15 Discharge ordered by . corinna 21:55 Discharged to home ambulatory. jb4 21:55 Condition: stable 21:55 Discharge instructions given to patient, Instructed on discharge instructions, follow up and referral plans. medication usage, Demonstrated understanding of instructions, follow-up care, medications, Prescriptions given X 1. 21:59 Patient left the ED. jb4 Signatures: Dispatcher [employer] EDMS Leta Daigle, LESTER GONZALEZ-Tone Fernandez RN RN jb4 Cortney Finley 5 Manuela Haddad Corrections: (The following items were deleted from the chart) 04/18 02:04/17 19:45 General: Appears in no apparent distress. uncomfortable, Behavior is calm, jb4 cooperative, appropriate for age, jb4 04/18 02:04/17 19:45 Pain: Complains of pain in left hip and lateral aspect of left thigh Pain jb4 does not radiate. Pain currently is 8 out of 10 on a pain scale. jb4 04/18 02:04/17 19:45 Neuro: Level of Consciousness is awake, alert, obeys commands, Oriented to jb4 person, place, time, situation, jb4 04/18 02:49 04/17 19:45 Cardiovascular: Patient's skin is warm and dry. jb4 jb4 04/18 02:04/17 19:45 Respiratory: Airway is patent Respiratory effort is even, unlabored, jb4 Respiratory pattern is regular, symmetrical, jb4 04/18 02:04/17 19:45 GI: No signs and/or symptoms were reported involving the gastrointestinal jb4 system. jb4 04/18 02:04/17 19:45 : No signs and/or symptoms were reported regarding the genitourinary jb4 system. jb4 04/18 02:04/17 19:45 EENT: No signs and/or symptoms were reported regarding the EENT system. jb4 jb4 04/18 02:04/17 19:45 Derm: Skin is intact, Skin is pink, warm \T\ dry. jb4 jb4
--- NOTE | 2022-04-17 21:16 | EDPHYS ---
Physician Documentation [facility] Name: John Moreno Age: 66 yrs Sex: Male : 1955 Arrival Date: 04/17/2022 Time: 19:42 Bed 12 Private MD: ED Physician Jorge Craig HPI: 04/17 20:42 This 66 yrs old Male presents to ER via Ambulatory with complaints of Leg Pain.kb 20:42 The patient presents with pain. The complaints affect the left gluteal fold and left kb quadriceps. Context: resulted from an unknown cause, the patient can fully bear weight, the patient is able to ambulate. Onset: The symptoms/episode began/occurred 7 week(s) ago. Modifying factors: The symptoms are alleviated by nothing. the symptoms are aggravated by nothing. Associated signs and symptoms: The patient has no apparent associated signs or symptoms. Treatment prior to arrival includes: no previous treatment. Severity of symptoms: At their worst the symptoms were moderate, in the emergency department the symptoms are unchanged. The patient has not experienced similar symptoms in the past. The patient has not recently seen a physician. Pt reports left leg pain for 7 weeks. concerned because he has a stent in that leg. States he had an MRI recently for same pain. Historical: - Allergies: 19:56 No Known Allergies; jb4 - Home Meds: 19:56 amlodipine 10 mg tab [Active]; Aspirin Oral [Active]; atorvastatin 10 mg Oral tab jb4 [Active]; Cyclobenzaprine Oral [Active]; duloxetine 30 mg Oral cpDR [Active]; losartan 50 mg Oral tab [Active]; omeprazole 40 mg Oral cpDR [Active]; - PMHx: 19:56 coronary atherosclerosis; Hyperlipidemia; Hypertension; jb4 - PSHx: 19:56 heart cath; stents in legs; Cardiac bypass; jb4 - Immunization history:: Adult Immunizations up to date, Client reports having NOT received the Covid vaccine. - Social history:: Smoking status: Patient/guardian denies using tobacco. ROS: 20:43 Constitutional: Negative for fever, chills, and weight loss. kb 20:43 MS/extremity: Positive for pain, of the left quadriceps and left gluteal fold. 20:43 All other systems are negative. Exam: 20:43 Constitutional: This is a well developed, well nourished patient who is awake, alert, kb and in no acute distress. Head/Face: Normocephalic, atraumatic. ENT: Moist Mucous membranes Respiratory: Respirations even and unlabored. No increased work of breathing. Talking in full sentences Skin: Warm, dry with normal turgor. Normal color. MS/ Extremity: Pulses equal, no cyanosis. Neurovascular intact. Full, normal range of motion. Neuro: Awake and alert, GCS 15, oriented to person, place, time, and situation. Moves all extremities. Normal gait. Psych: Awake, alert, with orientation to person, place and time. Behavior, mood, and affect are within normal limits. Vital Signs: 19:54 BP 145 / 72; Pulse 76; Resp 18; Temp 98.5(TE); Pulse Ox 97% on R/A; Weight 79.38 kg jb4 (R); Height 5 ft. 4 in. (162.56 cm) (R); Pain 8/10; 21:45 BP 128 / 68; Pulse 69; Resp 16; Pulse Ox 98% on R/A; jb4 19:54 Body Mass Index 30.04 (79.38 kg, 162.56 cm) jb4 MDM: 19:59 Patient medically screened. kb 20:42 Data reviewed: vital signs, nurses notes. Data interpreted: Pulse oximetry: on room air kb is 97 %. Interpretation: normal. 21:04 Counseling: I had a detailed discussion with the patient and/or guardian regarding: the kb historical points, exam findings, and any diagnostic results supporting the discharge/admit diagnosis, radiology results, the need for outpatient follow up, a family practitioner, to return to the emergency department if symptoms worsen or persist or if there are any questions or concerns that arise at home. 04/17 20:09 Order name: US Extremity Venous Unilateral Ltd; Complete Time: 21:03 kb Administered Medications: 20:59 Not Given (Patient Refused): [place] (HYDROcodone-acetaminophen) (7.5 mg-325 mg) 1 tabs jb4 PO once Disposition: 04/18 07:26 Co-signature as Attending Physician, Jorge Craig MD. [email or web address] Disposition Summary: 04/17/22 21:15 Discharge Ordered Location: Home kb Condition: Stable kb Diagnosis - Pain in left leg kb Followup: kb - With: Emergency Department - When: As needed - Reason: Worsening of condition Followup: kb - With: Private Physician - When: 2 - 3 days - Reason: Recheck today's complaints, Continuance of care, Re-evaluation by your physician Discharge Instructions: - Discharge Summary Sheet kb - Musculoskeletal Pain kb Forms: - Medication Reconciliation Form kb - Thank You Letter kb - Antibiotic Education kb - Prescription Opioid Use kb Prescriptions: - Prednisone 20 mg Oral Tablet - take 1 tablet by ORAL route once daily for 5 days; 5 tablet; Refills: 0, kb Product Selection Permitted Signatures: Dispatcher [employer] EDMS Leta Daigle, Tone Marti RN RN jb4 Jorge Craig MD MD [email or web address]
[2022-04-17 22:07] VITALS: BP 145/72; TEMP 98.5; O2SAT 97
== END 2022-04-17 21:59 | disposition home or self-care (01) ==
LOC: ER 19:34
DX: M79.605 Pain in left leg (principal); I10 Essential (primary) hypertension; Z95.1 Presence of aortocoronary bypass graft; Z79.82 Long term (current) use of aspirin
CPT/HCPCS: 93971; 99283

== ENCOUNTER 2022-05-28 20:49 | Emergency (ER) | payer OTHER ==
--- OUTSIDE RECORDS SUMMARY | 2022-05-28 21:00 | XMS REPORT | Continuity of Care Document ---
:1955 Author Organization [facility] t Address [address] [place] [address] Care Team Providers Name Role Phone Pcp, Does Not Have A Primary Care Physician Samir Pickett Attending Clinician Unavailable Elaine Attending Clinician Unavailable RADHA CALDERON Attending Clinician Unavailable AR Attending Clinician Unavailable GONZALO DE LA CRUZ Attending Clinician Unavailable Corey OGLESBY Attending Clinician Juma OGLESBY Attending Clinician COREY Attending Clinician Unavailable PILI WOMACK Attending Clinician Unavailable Milan OGLESBY, Keira Attending Clinician LUCA Attending Clinician Unavailable TANVI Attending Clinician Unavailable CINDY Attending Clinician Unavailable Gamaliel LOGAN, Paty Attending Clinician Trever OGLESBY, Paty Attending Clinician Tanvi OGLESBY Attending Clinician Unavailable JUMA Attending Clinician Unavailable Pili Womack MD Attending Clinician Gonzalo De La Cruz MD Attending Clinician Cindy OGLESBY Attending Clinician GRIS Attending Clinician Unavailable MARTÍN PARRISH Attending Clinician Unavailable GONZALO DE LA CRUZ Attending Clinician Unavailable SARA Attending Clinician Unavailable Sara ESPAÑA Attending Clinician JUMA Attending Clinician Unavailable Christiano OGLESBY Attending Clinician SKIP Attending Clinician Unavailable Duy Steiner MD Attending Clinician Mandeep Tuttle MD Attending Clinician PATEL Attending Clinician Unavailable DEWAYNE SOLIMAN Attending Clinician Unavailable RADHA CALDERON Admitting Clinician Unavailable AR Admitting Clinician Unavailable GONZALO DE LA CRUZ Admitting Clinician Unavailable MARY MILLS Admitting Clinician Unavailable PATEL Admitting Clinician Unavailable DEWAYNE SOLIMAN Admitting Clinician Unavailable Payers Payer Name Policy Type Policy Number Effective Date Expiration Date Gildardo garcía [facility] [id number] 2019 00:00:00 [facility] [id number] [employer] A B [id number] 2021 00:00:00 [facility] [id number] 2021 00:00:00 Problems Condition Condition Condition Status Onset Resolution Last Treating Co mments Source Name Details Category Date Date Treatment Clinician Date 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 [facility] depression depression 00:00: of , single , single 00 Medici n episode episode e Nonalcohol Nonalcohol Disease Active [facility]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 fatty 1-07 [facility] e liver liver 00:00: of disease disease 00 Medicin e Primary Primary Disease Active [facility] insomnia insomnia 107 Colleg e 00:00: of 00 Medicin e Essential Essential Disease Active [facility] hypertensi hypertensi 1-07 Co llege on on 00:00: of 00 Medicin e S/P CABG S/P CABG Disease Active 2020-11 [facility] r (coronary (coronary 0-26 [facility] artery artery 00:00: of bypass bypass 00 Medicin graft) graft) e Scrotolith Scrotolith Disease Active [facility] 8-25 [facility] 00:00: of 00 Medicin e PAD PAD Disease Active [facility] (periphera (periphera 8-09 Co llege l artery l artery 00:00: of disease) disease) 00 Medici n (HCCode) (HCCode) e Coronary Coronary Disease Active [facility] r artery artery 5-18 [place] disease of disease of [place] Medicin artery of artery of [place] heart 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 (HCCode) (HCCode) Abnormal Abnormal Disease Active [facility] r findings findings 5-18 Colleg e on on 00:00: of diagnostic diagnostic 00 Me dicin imaging of imaging of e heart and heart and coronary coronary circulatio circulatio n n Orchitis Orchitis Disease Active [facility] r and and 4-28 [place] epididymit epididymit 00:00: of is is 00 Medicin e Carotid Carotid Disease Active [facility] artery artery 3-28 College disease disease 00:00: of (HCCode) (HCCode) 00 Medici n e S/P S/P Disease Active [facility] angiogram angiogram 3-28 [facility] of of 00:00: of extremity extremity 00 Medi aleksandra e PAD PAD Disease Active [facility] (periphera (periphera 3-05 Co llege l artery l artery 00:00: of disease) disease) 00 Medici n (HCCode) (HCCode) e PAD PAD Disease Active [facility] [...] symptoms (LUTS) (LUTS) Screening Screening Disease Active [facility] for viral for viral 6-18 [facility] disease disease 00:00: of 00 Medicin e Chest pain Chest pain Disease Active [facility] 6-18 [facility] 00:00: of 00 Medicin e Leg length Leg length Disease Active [facility] discrepanc discrepanc 3-18 Co llege y y 00:00: of 00 Medicin e Right hip Right hip Disease Active [facility] pain pain 3-18 [facility] 00:00: of 00 Medicin e Primary Primary Disease Active [facility] osteoarthr osteoarthr 3-18 Co llege itis of itis of 00:00: of right hip right hip 00 Medi aleksandra e Osteoarthr Osteoarthr Disease Active [facility] itis of itis of -18 College lumbar lumbar 00:00: of spine spine 00 Medicin e Right leg Right leg Disease Active [facility] pain pain 3-18 [facility] 00:00: of 00 Medicin e Hypertensi Hypertensi Disease Active 2018-11 [facility] on on 2-18 College 00:00: of 00 Medicin e PFO PFO Disease Active 2018-11 [facility] (patent (patent 218 College foramen foramen 00:00: of ovale) ovale) 00 Medicin e Hyperlipid Hyperlipid Disease Active 2018-11 [facility] emia emia 2-18 College 00:00: of 00 Medicin e Numbness Numbness Disease Active 2018-11 [facility] and and 2-18 [facility] tingling tingling 00:00: of 00 Medicin e TIA TIA Disease Active [facility] (transient (transient 5-03 Co llege ischemic ischemic 00:00: of attack) attack) 00 Medicin e Stroke Stroke Disease Active [facility] (cerebrum) (cerebrum) 4-27 Co llege (HCCode) (HCCode) 00:00: of 00 Medicin e 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[facility] 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 00:00: of n n 00 Medicin e Nodule of Nodule of Disease Active [facility] scrotum scrotum 2-28 College 00:00: of 00 Medicin e No known No known Disease Unive rs active active ity of problems problems [facility] Allergies, Adverse Reactions, Alerts Allergy Allergy Status Severity Reaction(s) Onset Inactive Treating Comm ents Source Name Type Date Date Clinician NO KNOWN Allergy Active [facility] Social History Social Habit Start Date Stop Date Quantity Comments Source History of tobacco Passive smoker [facility] of use Medicine History [facility] o f Alcohol Frequency [facility] Branch History [facility] hospital o f Alcohol Std Drinks [facility] History [facility] o f Alcohol Binge [facility] Tobacco use and 2022-05-06 2022-05-06 Former smokeless [facility] of exposure 00:00:00 00:00:00 tobacco user Medicine Cigarette 2022-05-06 2022-05-06 [facility] of pack-years 00:00:00 00:00:00 Medicine Alcohol intake 2022-04-28 2022-04-28 Current drinker Unive rsity of 00:00:00 00:00:[address] [facility] (finding) Branch Exposure to 2022-04-17 2022-04-27 Not sure University SARS-CoV-2 (event) 00:00:00 14:08:00 [facility] Tobacco Comment 2022-03-29 2022-03-29 stopped in 2018 [facility] of 00:00:00 00:00:00 Medicine Alcohol Comment 2017-09-25 2017-09-25 Approx. 3 drinks Uni versity of 00:00:00 00:00:00 per day [facility] Cigarettes smoked 2017-09-25 2017-09-25 Univers ity of current (pack per 00:00:00 00:00:00 [facility] ) - Reported Branch Sex [birth year] At [birth year] Universit y of 00:00:00 00:00:00 [facility] Smoking Status Start Date Stop Date Source Ex-smoker 2022-05-06 00:00:00 2022-05-06 00:00:00 [facility] Current every day 2017-09-25 00:00:00 [facility] Medications Ordered Filled Start Stop Current Ordering Indication Dosage Frequency Signature Comments Components Source Medication Medication Date Date Medication? Clinician (SIG) Name Name Aspirin 81 0 Yes Gam[facility] MG tablet 05-17 College 09:33: of 22 Medicin e pantoprazol 0 Yes 20mg Take 20 mg Gamaliel e 7-12 by mouth College (PROTONIX) 09:33: daily. of 20 MG 22 Medicin tablet e Aspirin 81 0 Yes Gamaliel MG tablet 05-17 [place] 09:33: of 22 Medicin e pantoprazol 2021-0 Yes 20mg Take 20 mg Gamaliel e -12 by mouth College (PROTONIX) 09:33: daily. of 20 MG 22 Medicin tablet e Aspirin 81 0 Yes [facility] MG tablet 05-06 [place] 10:04: of 06 Medicin e pantoprazol 2021-0 Yes 20mg Take 20 mg Gamaliel e - by mouth College (PROTONIX) 10:04: daily. of 20 MG 06 Medicin tablet e methylPREDN 2021- No Take as [facility] ISolone 4 05-06 directed Colle ge MG TBPK 00:00: 00:00 to of 00 :00 completion Medicin e Aspirin 81 2021-0 Yes [facility] MG tablet - College 15:01: of 34 Medicin e pantoprazol 2021-0 Yes 20mg Take 20 mg [facility] e 6-29 by mouth College (PROTONIX) 15:01: daily. of 20 MG 34 Medicin tablet e atorvastati 2021-0 Yes [id number] 40mg Take 1 [facility] n (LIPITOR) 6-29 Tablet by Col lege 40 MG 00:00: mouth of tablet 00 daily. Medicin e amlodipine 2021-0 Yes [id number] TAKE 1 [facility] (NORVASC) 6-29 TABLET BY Colle ge 10 MG 00:00: MOUTH of tablet 00 EVERY DAY Medicin e metoprolol 2022-0 Yes [id number] TAKE 1 [facility] (TOPROL-XL) 6-29 TABLET BY Col lege 25 MG XL 00:00: MOUTH of tablet 00 EVERY DAY Medicin FOR 90 e DAYS losartan 2021-0 Yes [id number] TAKE 1 [facility] (COZAAR) 6-29 TABLET BY Colleg e 100 MG 00:00: MOUTH of tablet 00 EVERY DAY Medicin e atorvastati 2021-0 Yes [id number] 40mg Take 1 [facility] n (LIPITOR) 6-29 Tablet by Col lege 40 MG 00:00: mouth of tablet 00 daily. Medicin e amlodipine 2021-0 Yes [id number] TAKE 1 [facility] (NORVASC) 6-29 TABLET BY Colle ge 10 MG 00:00: MOUTH of tablet 00 EVERY DAY Medicin e metoprolol 2021-0 Yes [id number] TAKE 1 [facility] (TOPROL-XL) 6-29 TABLET BY Col lege 25 MG XL 00:00: MOUTH of tablet 00 EVERY DAY Medicin FOR 90 e DAYS losartan 2021-0 Yes [id number] TAKE 1 [facility] (COZAAR) 6-29 TABLET BY Colleg e 100 MG 00:00: MOUTH of tablet 00 EVERY DAY Medicin e atorvastati 2021-0 Yes [id number] 40mg Take 1 [facility] n (LIPITOR) 6-29 Tablet by [facility] 40 MG 00:00: mouth of tablet 00 daily. Medicin e amlodipine 2021-0 Yes [id number] TAKE 1 [facility] (NORVASC) 6-29 TABLET BY Colle ge 10 MG 00:00: MOUTH of tablet 00 EVERY DAY Medicin e metoprolol 2021-0 Yes [id number] TAKE 1 [facility] (TOPROL-XL) 6-29 TABLET BY Col lege 25 MG XL 00:00: MOUTH of tablet 00 EVERY DAY Medicin FOR 90 e DAYS losartan 2021-0 Yes [id number] TAKE 1 [facility] (COZAAR) 6-29 TABLET BY Colleg e 100 MG 00:00: MOUTH of tablet 00 EVERY DAY Medicin e atorvastati 2021-0 Yes [id number] 40mg Take 1 [facility] n (LIPITOR) 6-29 Tablet by [facility] 40 MG 00:00: mouth of tablet 00 daily. Medicin e amlodipine 2021-0 Yes [id number] TAKE 1 [facility] (NORVASC) 6- TABLET BY Colle ge 10 MG 00:00: MOUTH of tablet 00 EVERY DAY Medicin e metoprolol 2021-0 Yes [id number] TAKE 1 [facility] (TOPROL-XL) -29 TABLET BY Col [facility]ge 25 MG XL 00:00: MOUTH of tablet 00 EVERY DAY Medicin FOR 90 e DAYS losartan 2021-0 Yes [id number] TAKE 1 [facility] (COZAAR) 6-29 TABLET BY Colleg e 100 MG 00:00: MOUTH of tablet 00 EVERY DAY Medicin e losartan 2021-0 2022- No [id number] TAKE 1 [facility] (COZAAR) 6-29 06-29 TABLET BY Colle ge 100 MG 00:00: 00:00 MOUTH of tablet 00 :00 EVERY DAY Medicin e predniSONE 2021-0 Yes TAKE 1 [facility] (DELTASONE) 6-13 TABLET BY Col [facility]ge 20 MG 00:00: MOUTH of tablet 00 EVERY DAY Medicin FOR 5 DAYS e predniSONE 2021-0 Yes TAKE 1 [facility] (DELTASONE) 6-13 TABLET BY Col [facility]ge 20 MG 00:00: MOUTH of tablet 00 EVERY DAY Medicin FOR 5 DAYS e Aspirin 81 2021-0 Yes [facility] MG tablet 04-12 College 14:07: of 58 Medicin e pantoprazol 2021-0 Yes 20mg Take 20 mg [facility] e 04-12 by mouth [place] (PROTONIX) 14:07: daily. of 20 MG 58 Medicin tablet e clonazepam 2021-0 Yes [facility] (KLONOPIN) 6 College 0.5 MG 00:00: of tablet 00 Medicin e clonazepam 2021-0 Yes [facility] (KLONOPIN) 6- College 0.5 MG 00:00: of tablet 00 Medicin e clonazepam 2021-0 Yes [facility] (KLONOPIN) 6- College 0.5 MG 00:00: of tablet 00 Medicin e clonazepam 2021-0 2021- No [facility] (KLONOPIN) 6- 07-12 College 0.5 MG 00:00: 00:00 of tablet 00 :00 Medicin e Aspirin 81 2-0 Yes [facility] MG tablet -24 College 14:57: of 55 Medicin e pantoprazol 2021-0 Yes 20mg Take 20 mg Gamaliel e 5-24 by mouth College (PROTONIX) 14:57: daily. of 20 MG 55 Medicin tablet e pregabalin 2021-0 Yes 75mg Take 1 [...] of 00 times Medicin daily. e pregabalin 2022-0 Yes 75mg Take 1 [facility] (LYRICA) [...] two of 00 times Medicin daily. e meloxicam 0 Yes TAKE 1 [facility] (MOBIC) 7.5 5-19 TABLET BY Col lege MG tablet 00:00: MOUTH of 00 EVERY DAY Medicin FOR 30 e DAYS meloxicam 2021-0 Yes TAKE 1 [facility] (MOBIC) 7.5 5-19 TABLET BY Col lege MG tablet 00:00: MOUTH of 00 EVERY DAY Medicin FOR 30 e DAYS meloxicam 2021-0 2021- No TAKE 1 [facility] (MOBIC) 7.5 5-19 07-12 TABLET BY Co llege MG tablet 00:00: 00:00 MOUTH of 00 :00 EVERY DAY Medicin FOR 30 e DAYS dicyclomine 0 Yes TAKE 1 [facility] (BENTYL) 10 5-18 CAPSULE BY Co llege MG capsule 00:00: MOUTH of 00 TWICE A Medicin DAY FOR 15 e DAYS dicyclomine 0 Yes TAKE 1 [facility] (BENTYL) 10 5-18 CAPSULE BY Co llege MG capsule 00:00: MOUTH of 00 TWICE A Medicin DAY FOR 15 e DAYS dicyclomine 2021- No TAKE 1 [facility] (BENTYL) 10 5-18 07-12 CAPSULE BY C ollege MG capsule 00:00: 00:00 MOUTH of 00 :00 TWICE A Medicin DAY FOR 15 e DAYS Aspirin 81 0 Yes [facility]aliel MG tablet 13 [place] 10:16: of 04 Medicin e pantoprazol 0 Yes 20mg Take 20 mg Gamaliel e 5-13 by mouth [place] (PROTONIX) 10:16: daily. of 20 MG 04 Medicin tablet e Aspirin 81 Yes [facility] MG tablet 03-16 [place] 14:40: of 02 Medicin e pantoprazol Yes 20mg Take 20 mg Gamaliel e 11 by mouth [place] (PROTONIX) 14:40: daily. of 20 MG 02 Medicin tablet e metoprolol 2021- No [id number] Take 1 [facility] (TOPROL-XL) 5-11 05-11 tablet Colle ge 50 MG XL 00:00: 00:00 once a day of tablet 00 :00 Medicin e metoprolol Yes TAKE 1 [facility] (TOPROL-XL) 4-27 TABLET BY Col [facility]ge 25 MG XL 00:00: MOUTH of tablet 00 EVERY DAY Medicin FOR 90 e DAYS metoprolol Yes TAKE 1 [facility] (TOPROL-XL) 4-27 TABLET BY Col [facility]ge 25 MG XL 00:00: MOUTH of tablet 00 EVERY DAY Medicin FOR 90 e DAYS metoprolol Yes TAKE 1 [facility] (TOPROL-XL) 4-27 TABLET BY [facility]ge 25 MG XL 00:00: MOUTH of tablet 00 EVERY DAY Medicin FOR 90 e DAYS metoprolol Yes TAKE 1 [facility] (TOPROL-XL) 4-27 TABLET BY Col [facility]ge 25 MG XL 00:00: MOUTH of tablet 00 EVERY DAY Medicin FOR 90 e DAYS metoprolol 0 2021- No TAKE 1 [facility] (TOPROL-XL) 4-27 - TABLET BY Co llege 25 MG XL 00:00: 00:00 MOUTH of tablet 00 :00 EVERY DAY Medicin FOR 90 e DAYS Aspirin 81 2-0 Yes [facility] MG tablet 4-11 College 10:58: of 03 Medicin e pantoprazol 2021-0 Yes 20mg Take 20 mg [facility] e 4-11 by mouth College (PROTONIX) 10:58: daily. of 20 MG 03 Medicin tablet e Aspirin 81 2-0 Yes [facility] MG tablet 2-14 College 12:59: of 13 Medicin e pantoprazol 2021-0 Yes 20mg Take 20 mg Gam[facility]iel e 2-14 by mouth [facility] (PROTONIX) 12:59: daily. of 20 MG 13 Medicin tablet e Aspirin 81 2021-0 Yes [facility] MG tablet 2-14 College 12:59: of 13 Medicin e pantoprazol 2021-0 Yes 20mg Take 20 mg Gamaliel e 2-14 by mouth [facility] (PROTONIX) 12:59: daily. of 20 MG 13 Medicin tablet e Aspirin 81 2021-0 Yes [facility] MG tablet 2-04 College 09:15: of 36 Medicin e pantoprazol 2021-0 Yes 20mg Take 20 mg [facility] e 2-04 by mouth [facility] (PROTONIX) 09:15: daily. of 20 MG 36 Medicin tablet e Aspirin 81 2021-0 Yes [facility] MG tablet 1-12 College 13:38: of 09 Medicin e pantoprazol 2021-0 Yes 20mg Take 20 mg Gam[facility]iel e 1-12 by mouth [facility] (PROTONIX) 13:38: daily. of 20 MG 09 Medicin tablet e mirtazapine 2021-0 Yes TAKE 1 [facility] (REMERON) 1-08 TABLET BY Colle ge 30 MG 00:00: MOUTH of tablet 00 EVERY DAY Medicin AT BEDTIME e NEEDED mirtazapine 2021-0 Yes TAKE 1 [facility] (REMERON) 1-08 TABLET BY Colle ge 30 MG 00:00: MOUTH of tablet 00 EVERY DAY Medicin AT BEDTIME e NEEDED mirtazapine 2-0 Yes TAKE 1 [facility] (REMERON) 1-08 TABLET BY Colle ge 30 MG 00:00: MOUTH of tablet 00 EVERY DAY Medicin AT BEDTIME e NEEDED mirtazapine 2021-0 Yes TAKE 1 [facility] (REMERON) 1-08 [...] DAY Medicin AT BEDTIME e NEEDED mirtazapine 2-0 Yes TAKE 1 [facility] [...] BEDTIME e NEEDED Aspirin 81 2-0 Yes [facility] MG tablet 11-12 College 16:19: of 06 Medicin e pantoprazol 2021-0 Yes 20mg Take 20 mg Gamaliel e 11-12 by mouth [facility] (PROTONIX) 16:19: daily. of 20 MG 06 Medicin tablet e gabapentin 2-0 Yes [id number] 100mg Take 1 [facility] (NEURONTIN) 11-12 capsule by Co llege 100 MG 00:00: mouth at of capsule 00 bedtime. Medicin e gabapentin 2022-0 Yes [id number] 100mg Take 1 [facility] (NEURONTIN) 1-07 capsule by Co llege 100 MG 00:00: mouth at of capsule 00 bedtime. Medicin e gabapentin 2021-0 Yes [id number] 100mg Take 1 [facility] (NEURONTIN) 1-07 capsule by Co llege 100 MG 00:00: mouth at of capsule 00 bedtime. Medicin e gabapentin 2021-0 Yes [id number] 100mg Take 1 [facility] (NEURONTIN) 1-07 capsule by Co llege 100 MG 00:00: mouth at of capsule 00 bedtime. Medicin e gabapentin 2021-0 Yes [id number] 100mg Take 1 [facility] (NEURONTIN) 1-07 capsule by Co llege 100 MG 00:00: mouth at of capsule 00 bedtime. Medicin e gabapentin 2021-0 2021- No [id number] 100mg Take 1 [facility] (NEURONTIN) 1-07 04-11 capsule by C ollege 100 MG 00:00: 00:00 mouth at of capsule 00 :00 bedtime. Medicin e Aspirin 81 2020-11 Yes [facility] MG tablet 11-27 [place] 14:41: of 30 Medicin e pantoprazol 2020-11 Yes 20mg Take 20 mg [facility] e 11-27 [place] [facility] [place] 14:41: daily. of 20 MG 30 Medicin tablet e Aspirin 81 2020-11 Yes [facility] MG tablet 11-22 [place] 15:15: of 58 Medicin e pantoprazol 2020-11 Yes 20mg Take 20 mg [facility] e 11-22 by [facility] [place]ONIX[place] 15:15: daily. of 20 MG 58 Medicin tablet e phenazopyri 2020-11 Yes [id number] Take by [facility] 11-22 [facility] [place]PYRIDIUM) 00:00: every 8 of 200 MG 00 hours PRN. Medicin tablet e phenazopyri 2020-11- No [id number] Take by [facility] 11-22 [facility] [place]UM) 00:00: 00:00 every 8 of 200 [...] Medicin e clopidogrel 2020-11- No TAKE 1 [facility] (PLAVIX) 75 1-11 06-07 TABLET BY Co llege MG Tablet 00:00: 00:00 MOUTH of 00 :00 DAILY Medicin e Aspirin 2020-11 Yes [facility] (ASPIR-LOW) 0-26 [...] 20 mg Gamaliel e 0-26 by mouth [place] (PROTONIX) 10:44: daily. of 20 MG 36 [...] as e per tablet needed. clonazepam Yes [facility] (KLONOPIN) 06-28 [place] 0.5 MG 00:00: of tablet 00 Medicin e mirtazapine Yes [facility] (REMERON) 06-28 [place] 15 MG 00:00: of tablet 00 Medicin e mirtazapine Yes 30mg 30 mg. [facility] (REMERON) 06-28 [place] 15 MG 00:00: of tablet 00 Medicin e mirtazapine 0 Yes 30mg 30 mg. [facility] (REMERON) 06-28 [place] 15 MG 00:00: of tablet 00 Medicin e mirtazapine 0 Yes 30mg 30 mg. [facility] (REMERON) 06-28 [place] 15 MG 00:00: of tablet 00 Medicin e mirtazapine 0 Yes 30mg 30 mg. [facility] (REMERON) 06-28 [place] 15 MG 00:00: of tablet 00 Medicin e mirtazapine Yes 30mg 30 mg. [facility] (REMERON) 06-28 [place] 15 MG 00:00: of tablet 00 Medicin e mirtazapine Yes 30mg 30 mg. [facility] (REMERON) 06-28 [place] 15 MG 00:00: of tablet 00 Medicin e mirtazapine 2021- No 30mg 30 mg. [facility] (REMERON) 06-28 02-04 College 15 MG 00:00: 00:00 of tablet 00 :00 Medicin e clonazepam 2020- No [facility] (KLONOPIN) 06-28 10-13 [place] 0.5 MG 00:00: 00:00 of tablet 00 :00 Medicin e acetaminoph Yes 1{tbl} Take 1 [facility] en-codeine -19 Tablet by [facility] (TYLENOL/CO 14:53: mouth of DEINE #3) 47 every 4 Medicin 300-30 MG hours as e per tablet needed. tramadol Yes 50mg Take 50 mg [facility] (ULTRAM) 50 06-24 by mouth [facility] MG tablet 14:53: every 6 of 47 hours as Medicin needed for e Pain. Aspirin Yes [facility] (ASPIR-LOW) 06-24 [place] 81 MG 14:53: of tablet 33 Medicin e pantoprazol Yes 20mg Take 20 mg Gamaliel e 06-24 by mouth [place] (PROTONIX) 14:53: daily. of 20 MG 33 [...] 00 EVERY DAY Medicin e amlodipine 0 2021- No TAKE 1 [facility] (NORVASC) 8-05 06-29 TABLET BY [facility] 10 MG 00:00: 00:00 MOUTH of tablet 00 :00 EVERY DAY Medicin e Aspirin Yes [facility] (ASPIR-LOW) 7-27 College 81 MG 14:58: of tablet 24 Medicin e pantoprazol Yes 20mg Take 20 mg Gamaliel e 7-27 by mouth [place] (PROTONIX) 14:58: daily. of 20 MG 24 Medicin tablet e gabapentin Yes 300mg Take 300 [facility] (NEURONTIN) 7-27 mg by [place] 300 MG 14:58: mouth 3 of capsule 24 times Medicin daily. e acetaminoph Yes 1{tbl} Take 1 [facility] en-codeine 7-27 Tablet by [facility] candi (TYLENOL/CO 14:58: mouth of DEINE #3) 24 every 4 Medicin 300-30 MG hours as e per tablet needed. tramadol Yes 50mg Take 50 mg [facility] (ULTRAM) 50 7-27 by mouth [facility] ege MG tablet 14:58: every 6 of 24 hours as Medicin needed for e Pain. atorvastati Yes [id number] 40mg Take 1 [facility] n (LIPITOR) 7-27 Tablet by [facility] 40 MG 00:00: mouth of tablet 00 daily. Medicin e atorvastati Yes [id number] 40mg Take 1 [facility] n (LIPITOR) 7-27 Tablet by [facility] 40 MG 00:00: mouth of tablet 00 daily. Medicin e atorvastati Yes [id number] 40mg Take 1 [facility] n (LIPITOR) 7-27 Tablet by Col [facility] 40 MG 00:00: mouth of tablet 00 daily. Medicin e metoprolol Yes [id number] 50mg Take 1 [facility] (TOPROL-XL) 7-27 Tablet by Col [facility]ge 50 MG XL 00:00: mouth two of tablet 00 times Medicin daily. e atorvastati Yes [id number] 40mg Take 1 [facility] n (LIPITOR) 7-27 Tablet by [facility] 40 MG 00:00: mouth of tablet 00 daily. Medicin e metoprolol Yes [id number] 50mg Take 1 [facility] (TOPROL-XL) 7-27 Tablet by Col [facility] 50 MG XL 00:00: mouth two of tablet 00 times Medicin daily. e atorvastati Yes [id number] 40mg Take 1 [facility] n (LIPITOR) 7-27 Tablet by [facility] 40 MG 00:00: mouth of tablet 00 daily. Medicin e metoprolol 2020-0 Yes [id number] 50mg Take 1 [facility] (TOPROL-XL) 7-27 Tablet by [facility] 50 MG XL 00:00: mouth two of tablet 00 times Medicin daily. e atorvastati 2020-0 Yes [id number] 40mg Take 1 [facility] n (LIPITOR) 7-27 Tablet by Col [facility]ge 40 MG 00:00: mouth of tablet 00 daily. Medicin e metoprolol 2020-0 Yes [id number] 50mg Take 1 [facility] (TOPROL-XL) 7-27 Tablet by [facility] 50 MG XL 00:00: mouth two of tablet 00 times Medicin daily. e atorvastati 2020-0 Yes [id number] 40mg Take 1 [facility] n (LIPITOR) 7-27 Tablet by [facility] 40 MG 00:00: mouth of tablet 00 daily. Medicin e metoprolol 2020-0 Yes [id number] 50mg Take 1 [facility] (TOPROL-XL) 7-27 Tablet by Col [facility]ge 50 MG XL 00:00: mouth two of tablet 00 times Medicin daily. e atorvastati 2020-0 Yes [id number] 40mg Take 1 [facility] n (LIPITOR) 7-27 Tablet by [facility] 40 MG 00:00: mouth of tablet 00 daily. Medicin e metoprolol 2020-0 Yes [id number] 50mg Take 1 [facility] (TOPROL-XL) 7-27 Tablet by Col [facility]ge 50 MG XL 00:00: mouth two of tablet 00 times Medicin daily. e atorvastati 2020-0 Yes [id number] 40mg Take 1 [facility] n (LIPITOR) 7-27 Tablet by [facility] 40 MG 00:00: mouth of tablet 00 daily. Medicin e metoprolol 2020-0 Yes [id number] 50mg Take 1 [facility] (TOPROL-XL) 7-27 Tablet by [facility] 50 MG XL 00:00: mouth two of tablet 00 times Medicin daily. e atorvastati 2020-0 Yes [id number] 40mg Take 1 [facility] (LIPITOR) 7-27 Tablet by [facility] 40 MG 00:00: mouth of tablet 00 daily. Medicin e metoprolol 2020-0 Yes [id number] 50mg Take 1 [facility] (TOPROL-XL) 7-27 Tablet by [facility] 50 MG XL 00:00: mouth two of tablet 00 times Medicin daily. e atorvastati 2020-0 Yes [id number] 40mg Take 1 [facility] (LIPITOR) 7-27 Tablet by [facility] 40 MG 00:00: mouth of tablet 00 daily. Medicin e metoprolol 2020-0 Yes [id number] 50mg Take 1 [facility] (TOPROL-XL) 7-27 Tablet by [facility] 50 MG XL 00:00: mouth two of tablet 00 times Medicin daily. e atorvastati 2020-0 Yes [id number] 40mg Take 1 [facility] n (LIPITOR) 7-27 Tablet by [facility] 40 MG 00:00: mouth of tablet 00 daily. Medicin e metoprolol 2020-0 Yes [id number] 50mg Take 1 [facility] (TOPROL-XL) 7-27 Tablet by [facility] 50 MG XL 00:00: mouth two of tablet 00 times Medicin daily. e atorvastati 2020-0 Yes [id number] 40mg Take 1 [facility] n (LIPITOR) 7-27 Tablet by [facility] 40 MG 00:00: mouth of tablet 00 daily. Medicin e metoprolol 2020-0 Yes [id number] 50mg Take 1 [facility] (TOPROL-XL) 7-27 Tablet by [facility] 50 MG XL 00:00: mouth two of tablet 00 times Medicin daily. e atorvastati 2020-0 Yes [id number] 40mg Take 1 [facility] n (LIPITOR) 7-27 Tablet by [facility] 40 MG 00:00: mouth of tablet 00 daily. Medicin e metoprolol 2020-0 Yes [id number] 50mg Take 1 [facility] (TOPROL-XL) 7-27 Tablet by [facility] 50 MG XL 00:00: mouth two of tablet 00 times Medicin daily. e atorvastati 2020-0 Yes [id number] 40mg Take 1 [facility] n (LIPITOR) 7-27 Tablet by [facility] 40 MG 00:00: mouth of tablet 00 daily. Medicin e metoprolol 2020-0 Yes [id number] 50mg Take 1 [facility] (TOPROL-XL) 7-27 Tablet by [facility] 50 MG XL 00:00: mouth two of tablet 00 times Medicin daily. e atorvastati Yes [id number] 40mg Take 1 [facility] n (LIPITOR) - Tablet by [facility] 40 MG 00:00: mouth of tablet 00 daily. Medicin e atorvastati Yes [id number] 40mg Take 1 [facility] (LIPITOR) 06-01 Tablet by [facility] 40 MG 00:00: mouth of tablet 00 daily. Medicin e atorvastati 2021- No [id number] 40mg Take 1 [facility] n (LIPITOR) 06-01 Tablet by [facility] 40 MG 00:00: 00:00 mouth of tablet 00 :00 daily. Medicin e metoprolol 2020- No [id number] TAKE 1 [facility] (TOPROL-XL) 05-14 TABLET BY Co [facility]lege 50 MG XL 00:00: 00:00 MOUTH of tablet 00 :00 EVERY DAY Medicin e gabapentin Yes 300mg Take 300 [facility] (NEURONTIN) 04-14 mg by [place] 300 MG 15:11: mouth 3 of capsule 22 times Medicin daily. e Aspirin Yes [facility] (ASPIR-LOW) 04-14 [place] 81 MG 15:10: of tablet 47 Medicin e pantoprazol Yes 20mg Take 20 mg [facility] e 04-14 by mouth College (PROTONIX) 15:10: daily. of 20 MG 47 Medicin tablet e mirtazapine 2020- No 1{tbl} Take 1 [facility] (REMERON) 04-14 Tablet by [facility] 7.5 MG 15:10: 00:00 mouth of tablet 17 :00 daily. Medicin e busPIRone 2020- No 1{tbl} Take 1 [facility] (BUSPAR) 04-14 Tablet by [facility] 7.5 MG 15:09: 00:00 mouth of tablet 47 :00 daily. Medicin e clopidogrel 2020- No 75mg Take 1 [facility] (PLAVIX) 75 04-02 Tablet by [facility]lege MG Tablet 00:00: 04:59 mouth of 00 :00 daily for Medicin 90 doses. e clopidogrel 2020- No 75mg Take 1 [facility] (PLAVIX) 75 5-28 08-27 Tablet by Co llege MG Tablet 00:00: 04:59 mouth of 00 :00 daily for Medicin 90 doses. e clopidogrel 2020-2020- No 75mg Take 1 [facility] (PLAVIX) 75 5-28 08-27 Tablet by [facility] llege MG Tablet 00:00: 04:59 mouth of 00 :00 daily for Medicin 90 doses. e clopidogrel 2020- No 75mg Take 1 [facility] (PLAVIX) 75 5-28 08-27 Tablet by Co llege MG Tablet 00:00: 04:59 mouth of 00 :00 daily for Medicin 90 doses. e clopidogrel 2020- No 75mg Take 1 [facility] (PLAVIX) 75 5-28 -27 Tablet by Co llege MG Tablet 00:00: 04:59 mouth of 00 :00 daily for Medicin 90 doses. e Aspirin 2020-0 Yes [facility] (ASPIR-LOW) 4-28 [facility] 81 MG 17:15: of tablet 19 Medicin e pantoprazol 2020-0 Yes 20mg Take 20 mg [facility] e 4-28 by mouth [facility] (PROTONIX) 17:15: daily. of 20 MG 19 Medicin tablet e mirtazapine 0 Yes 1{tbl} Take 1 [facility] (REMERON) 4-28 Tablet by [facility]le ge 7.5 MG 17:15: mouth of tablet 19 daily. Medicin e busPIRone Yes 1{tbl} Take 1 [facility] (BUSPAR) 4-28 Tablet by [facility] 7.5 MG 17:15: mouth of tablet 19 daily. Medicin e Aspirin 2020-0 Yes [facility] (ASPIR-LOW) 4-28 [facility] 81 MG 12:15: of tablet 19 Medicin e pantoprazol 2020-0 Yes 20mg Take 20 mg [facility] e 4-28 by mouth [facility] (PROTONIX) 12:15: daily. of 20 MG 19 Medicin tablet e mirtazapine 2020-0 Yes 1{tbl} Take 1 [facility] (REMERON) 4-28 Tablet by [facility]le ge 7.5 MG 12:15: mouth of tablet 19 daily. Medicin e busPIRone 2020-0 Yes 1{tbl} Take 1 [facility] (BUSPAR) 4-28 Tablet by [facility] e 7.5 MG 12:15: mouth of tablet 19 daily. Medicin e meloxicam 2020-0 Yes [id number] 15mg Take 1 [facility] (MOBIC) 15 4- Tablet by [facility]ina [facility] MG tablet 00:00: mouth of 00 daily. Medicin e meloxicam 0 Yes [id number] 15mg Take 1 [facility] (MOBIC) 15 4-28 Tablet by [facility] MG tablet 00:00: mouth of 00 daily. Medicin e meloxicam 2020-0 2020- No [id number] 15mg Take 1 [facility] (MOBIC) 15 03-03 06-09 Tablet by [facility] MG tablet 00:00: 00:00 mouth of 00 :00 daily. Medicin e levofloxaci 2020-2020- No [id number] 500mg Take 1 [facility] n 03-03 05-13 Tablet by [place] (LEVAQUIN) 00:00: 04:59 mouth of 500 MG 00 :00 daily for Medicin tablet 14 days. e Aspirin 0 Yes [facility] (ASPIR-LOW) 4-13 [place] 81 MG 14:34: of tablet 32 Medicin e pantoprazol 0 Yes 20mg Take 20 mg [facility] e -13 by mouth [place] (PROTONIX) 14:34: daily. of 20 MG 32 Medicin tablet e metoprolol Yes [id number] 50mg Take 1 [facility] (TOPROL-XL) 4-13 Tablet by [facility] 50 MG XL 00:00: mouth of tablet 00 daily. Medicin e metoprolol 2020-0 Yes [id number] 50mg Take 1 [facility] (TOPROL-XL) 4-13 Tablet by [facility] 50 MG XL 00:00: mouth of tablet 00 daily. Medicin e metoprolol 2020-0 Yes [id number] 50mg Take 1 [facility] (TOPROL-XL) 4-13 Tablet by [facility] 50 MG XL 00:00: mouth of tablet 00 daily. Medicin e metoprolol 2020-0 Yes [id number] 50mg Take 1 [facility] (TOPROL-XL) 4-13 Tablet by [facility] 50 MG XL 00:00: mouth of tablet 00 daily. Medicin e clopidogrel 2021- No 75mg Take 75 mg [facility] (PLAVIX) 75 01-08-06 by mouth. Co llege MG Tablet 00:00: 05:59 of 00 :00 Medicin e clopidogrel 2021- No 75mg Take 75 mg [facility] (PLAVIX) 75 01-08-06 by mouth. [facility]lege MG Tablet 00:00: 05:59 of 00 :00 Medicin e topiramate Yes 1{tbl} Take 1 [facility] (TOPAMAX) 2-25 Tablet by [facility]le [facility] 50 MG 00:00: mouth of tablet 00 daily. Medicin e topiramate Yes 1{tbl} Take 1 [facility] (TOPAMAX) 2-25 Tablet by [facility]le [facility] 50 MG 00:00: mouth of tablet 00 daily. Medicin e topiramate 2020- No 1{tbl} Take 1 [facility] (TOPAMAX) 2-25 06-09 Tablet by [facility]ina [facility] 50 MG 00:00: 00:00 mouth of tablet 00 :00 daily. Medicin e Aspirin Yes [facility] (ASPIR-LOW) 2 [facility] 81 MG 15:45: of tablet 46 Medicin e Aspirin Yes [facility] (ASPIR-LOW) 2- [facility] 81 MG 15:45: of tablet 46 Medicin e omeprazole 2020- No 40mg Take 40 mg [facility] (PRILOSEC) 12-02 by mouth. [facility] 40 MG [...] tablet 00 EVERY DAY Medicin e atorvastati 2020-0 2020- No TAKE 1 [facility] n (LIPITOR) 1-19 04-13 TABLET BY Co llege 10 MG 00:00: 00:00 MOUTH of tablet 00 :00 EVERY DAY Medicin e losartan 0 Yes [...] Medicin e losartan 2020-0 Yes TAKE 1 [facility] (COZAAR) 1-14 TABLET BY Colleg e 100 MG 00:00: MOUTH of tablet 00 EVERY DAY Medicin e losartan 2020-0 Yes TAKE 1 [facility] 00 EVERY DAY Medicin e losartan 2020-0 2021- No TAKE 1 [facility] (COZAAR) 1-14 05-04 TABLET BY Colle ge 100 MG 00:00: 00:00 MOUTH of tablet 00 :00 EVERY DAY Medicin e cyclobenzap 2021-0 Yes TAKE 1 [facility] [...] NEEDED cyclobenzap 2021-0 2021- No TAKE 1 [facility] rine 1-13 10-13 TABLET BY College (FLEXERIL) 00:00: 00:00 MOUTH of 10 MG 00 :00 THREE Medicin tablet TIMES A e DAY NEEDED magnesium 2020-0 Yes TAKE 1 [facility] oxide 1-04 TABLET BY [place] (MAG-OX) 00:00: MOUTH of 400 MG 00 EVERY DAY Medicin tablet e magnesium 202-0 Yes TAKE 1 [facility] oxide 1-04 TABLET BY [place] (MAG-OX) 00:00: MOUTH of 400 MG 00 EVERY DAY Medicin tablet e magnesium 2020-0 Yes TAKE 1 [facility] oxide 1-04 TABLET BY [place] (MAG-OX) 00:00: MOUTH of 400 MG 00 EVERY DAY Medicin tablet e magnesium 2020-0 Yes TAKE 1 [facility] oxide 1-04 TABLET BY [facility] (MAG-OX) 00:00: MOUTH of 400 MG 00 EVERY DAY Medicin tablet e magnesium 2020-0 Yes TAKE 1 [facility] oxide 1-04 TABLET BY [place] (MAG-OX) 00:00: MOUTH of 400 MG 00 EVERY DAY Medicin tablet e magnesium 2020-0 Yes TAKE 1 [facility] oxide 1-04 TABLET BY [place] (MAG-OX) 00:00: MOUTH of 400 MG 00 EVERY DAY Medicin tablet e magnesium 2020-0 2021- No TAKE 1 [facility] oxide 1-04 06-09 TABLET BY [place] (MAG-OX) 00:00: 00:00 MOUTH of 400 MG 00 :00 EVERY DAY Medicin tablet e omeprazole 2020- Yes TAKE 1 [facility] (PRILOSEC) 2-29 CAPSULE BY [facility] 20 MG 00:00: MOUTH of capsule 00 EVERY DAY Medicin e omeprazole 2020- Yes TAKE 1 [facility] (PRILOSEC) 2-29 CAPSULE BY [facility] 20 MG 00:00: MOUTH of capsule 00 EVERY DAY Medicin e omeprazole 2020-1 Yes TAKE 1 [facility] (PRILOSEC) 2-29 CAPSULE BY [facility] 20 MG 00:00: MOUTH of capsule 00 EVERY DAY Medicin e omeprazole 2020- Yes 20mg Take 20 mg [facility] (PRILOSEC) 2-29 by mouth [facility] 20 MG 00:00: daily. of capsule 00 Medicin e omeprazole 2020- Yes 20mg Take 20 mg [facility] (PRILOSEC) 2-29 by mouth [facility] 20 MG 00:00: daily. of capsule 00 Medicin e omeprazole 2019-11- No 20mg Take 20 mg [facility] (PRILOSEC) 06-09 by mouth [facility] 20 MG 00:00: 00:00 daily. of capsule 00 :00 Medicin e omeprazole 2019-11- No TAKE 1 [facility] (PRILOSEC) 0413 CAPSULE BY [facility]lege 20 MG 00:00: 00:00 MOUTH of capsule 00 :00 EVERY DAY Medicin e lactulose 2019-11 Yes TAKE BY [facility] (CHRONULAC) 11-29 MOUTH 60 [facility] 10 GM/15ML 00:00: MILLILIGTE o f solution 00 R EVERY Medicin NIGHT e lactulose 2019-11 Yes TAKE BY [facility] (CHRONULAC) 11-29 MOUTH 60 [facility] 10 GM/15ML 00:00: MILLILIGTE o f solution 00 R EVERY Medicin NIGHT e lactulose 2019-11 Yes TAKE BY [facility] (CHRONULAC) 11-29 MOUTH 60 [facility] 10 GM/15ML 00:00: MILLILIGTE o f solution 00 R EVERY Medicin NIGHT e lactulose 2019-11 Yes TAKE BY [facility] (CHRONULAC) 11-29 MOUTH 60 [facility] [...] 19:11: of tablet 14 Medicin e Aspirin 2019-11 Yes [facility] [...] capsule 31 Medicin e atorvastati 2018-11 Yes [id number] 20mg Take 1 Tab [facility] (LIPITOR) 2-18 by mouth [facility] 20 MG 00:00: daily. of tablet 00 Medicin e atorvastati 2018-11 Yes [id number] 20mg Take 1 Tab [facility] (LIPITOR) 2-18 by mouth [facility] 20 MG 00:00: daily. of tablet 00 Medicin e atorvastati 2018-11 Yes [id number] 20mg Take 1 Tab [facility] (LIPITOR) 2-18 by mouth [facility] 20 MG 00:00: daily. of tablet 00 Medicin e atorvastati 2018-11 Yes [id number] 20mg Take 1 Tab [facility] (LIPITOR) 2-18 by mouth [facility] 20 MG 00:00: daily. of tablet 00 Medicin e atorvastati 2018-11 Yes [id number] 20mg Take 1 Tab [facility] (LIPITOR) 2-18 by mouth [facility] 20 MG 00:00: daily. of tablet 00 Medicin e atorvastati 2018-11 Yes [id number] 20mg Take 1 Tab [facility] (LIPITOR) 2-18 by mouth [facility] 20 MG 00:00: daily. of tablet 00 Medicin e atorvastati 2018-11 Yes [id number] 20mg Take 1 Tab [facility] (LIPITOR) 2-18 by mouth [facility] 20 MG 00:00: daily. of tablet 00 Medicin e atorvastati 2018-11 Yes [id number] 20mg Take 1 Tab [facility] n (LIPITOR) 2-18 by mouth [facility] 20 MG 00:00: daily. of tablet 00 Medicin e atorvastati 2018-11 Yes [id number] 20mg Take 1 Tab [facility] (LIPITOR) 2-18 by mouth [facility] 20 MG 00:00: daily. of tablet 00 Medicin e atorvastati 2018-11 Yes [id number] 20mg Take 1 Tab [facility] n (LIPITOR) 2-18 by mouth [facility] 20 MG 00:00: daily. of tablet 00 Medicin e atorvastati 2018-11 Yes [id number] 20mg Take 1 Tab [facility] n (LIPITOR) 2-18 by mouth [facility] 20 MG 00:00: daily. of tablet 00 Medicin e atorvastati 2018-11- No [id number] 20mg Take 1 Tab [facility] [...] [facility] directed [facility] t 00:[facility]: - [facility] Tramadol Tramadol Yes Jorge as Co mmon HCl HCl 9 [facility] directed [facility] 00:[facility]: - [facility] 00 [facility] hydrOXYzine Yes 25mg Take 1 Tab [facility] [...] BEDTIME NEEDED mirtazapine 2020- No TAKE 1 [facility] (REMERON) 5-09 02- TABLET (30 [facility] 30 MG 00:00: [...] :00 EVERY DAY Medicin e aspirin EC 2020- No 81mg Take 81 mg [facility] 81 MG 4-30 04-30 by mouth. College tablet 00:00: 04:59 of [...] 00 :00 EVERY DAY Medicin e losartan 2020- No TAKE 1 [facility] (COZAAR) 50 1-08 -27 TABLET BY Co llege MG tablet 00:00: 00:00 MOUTH of 00 :00 EVERY DAY Medicin e amLODIPine 2016-11 Yes 10mg Take 10 mg U nivers 10 mg -22 by mouth ity of tablet 12:56: daily. [address] atorvastati 2016-11 Yes 10mg Take 10 mg [facility] n 10 mg -22 by mouth ity of tablet 12:56: daily. [address] losartan 50 2016-11 Yes 50mg Take 50 mg [facility] mg tablet 22 by mouth ity of 12:56: daily. [address] omeprazole 2016-11 Yes 40mg Take 40 mg U nivers 40 mg -22 by mouth ity of capsule 12:56: daily. [address] oxybutynin 2016-11 Yes 5mg Take 5 mg Un erlin chloride 5 -22 by mouth ity o f mg tablet 12:56: daily. [address] tamsulosin 2016-11 Yes .4mg Take 0.4 Uni vers 0.4 mg 24 1-22 mg by ity of hr capsule 12:56: mouth [place] [id number] daily. [facility] Omeprazole Omeprazole Yes Jorge not Common Leonard defined [facility] Aspirin 81 Aspirin 81 Yes Jorge not Common Leonard defined [facility] atorvastati atorvastati Yes Jorge not Common n n Leonard defined [facility] Amlodipine Amlodipine Yes Jorge not Common Besylate Besylate Leonard defined Spir it [facility] Losartan Losartan Yes Jorge not Comm on Potassium Potassium Leonard defined [facility] Folic Acid Folic Acid Yes Jorge not Common Leonard defined [facility] Clindamycin Clindamycin Yes Jorge not Common HCl HCl Leonard defined [facility] BusPIRone BusPIRone Yes Jorge not Co mmon HCl HCl Leonard defined [facility] Mirtazapine Mirtazapine Yes Jorge not Common Leonard defined [facility] Atorvastati Atorvastati Yes Jorge not Common n Calcium n Calcium Leonard defined [facility] MAGnesium-O MAGnesium-O Yes Jorge not Common xide xide Leonard defined [facility] Flucelvax Flucelvax Yes Jorge not Co mmon Quadrivalen Quadrivalen Leonard defined [facility] t [facility] Baclofen Baclofen Yes Jorge not Comm on Leonard defined [facility] Immunizations Ordered Immunization Filled Immunization Date Status Commen ts Source Name Name Influenza 2021-08-04 Completed [facility] Intradermal 00:00:00 of Medicine Influenza 2021-08-04 Completed [facility] Intradermal 00:00:00 of Medicine Influenza 2021-08-04 Completed [facility] Intradermal 00:00:00 of Medicine Influenza 2021-08-04 Completed [facility] Intradermal 00:00:00 of Medicine Influenza 2021-08-04 Completed [facility] Intradermal 00:00:00 of Medicine Influenza 2021-08-04 Completed [facility] Intradermal 00:00:00 of Medicine Influenza 2021-08-04 Completed [facility] Intradermal 00:00:00 of Medicine Influenza 2021-08-04 Completed [facility] Intradermal 00:00:00 of Medicine Influenza 2021-08-04 Completed [facility] Intradermal 00:00:00 of Medicine Influenza 2021-08-04 Completed [facility] Intradermal 00:00:00 of Medicine Influenza 2021-08-04 Completed [facility] Intradermal 00:00:00 of Medicine Influenza 2021-08-04 Completed [facility] Intradermal 00:00:00 of Medicine Influenza 2021-08-04 Completed [facility] Intradermal 00:00:00 of Medicine Influenza 2021-08-04 Completed [facility] Intradermal 00:00:00 of Medicine Influenza 2021-08-04 Completed [facility] Intradermal 00:00:00 of Medicine Influenza 2021-08-04 Completed [facility] Intradermal 00:00:00 of Medicine Influenza 2021-08-04 Completed [facility] Intradermal 00:00:00 of Medicine Influenza 2021-08-04 Completed [facility] Intradermal 00:00:00 of Medicine Influenza Quad-PF 2020-07-16 Completed [facility] 00:00:00 of Medicine Influenza Quad-PF 2020-07-16 Completed [facility] 00:00:00 of Medicine Influenza Quad-PF 2020-07-16 Completed [facility] 00:00:00 of Medicine Influenza Quad-PF 2020-07-16 Completed [facility] 00:00:00 of Medicine Influenza Quad-PF 2020-07-16 Completed [facility] 00:00:00 of Medicine Influenza Quad-PF 2020-07-16 Completed [facility] 00:00:00 of Medicine Influenza Quad-PF 2020-07-16 Completed [facility] 00:00:00 of Medicine Influenza Quad-PF 2020-07-16 Completed [facility] 00:00:00 of Medicine Influenza Quad-PF 2020-07-16 Completed [facility] 00:00:00 of Medicine Influenza Quad-PF 2020-07-16 Completed [facility] 00:00:00 of Medicine Influenza Quad-PF 2020-07-16 Completed [facility] 00:00:00 of Medicine Influenza Quad-PF 2020-07-16 Completed [facility] 00:00:00 of Medicine Influenza Quad-PF 2020-07-16 Completed [facility] 00:00:00 of Medicine Influenza Quad-PF 2020-07-16 Completed [facility] 00:00:00 of Medicine Influenza Quad-PF 2020-07-16 Completed [facility] 00:00:00 of Medicine Influenza Quad-PF 2020-07-16 Completed [facility] 00:00:00 of Medicine Influenza Quad-PF 2020-07-16 Completed [facility] 00:00:00 of Medicine Influenza Quad-PF 2020-07-16 Completed [facility] 00:00:00 of Medicine Influenza Quad-PF 2020-07-16 Completed [facility] 00:00:00 of Medicine Influenza Quad-PF 2020-07-16 Completed [facility] 00:00:00 of Medicine Influenza Quad-PF 2020-07-16 Completed [facility] 00:00:00 of Medicine Influenza Quad-PF 2020-07-16 Completed [facility] 00:00:00 of Medicine Influenza Quad-PF 2020-07-16 Completed [facility] 00:00:00 of Medicine Influenza Quad-PF 2020-07-16 Completed [facility] 00:00:00 of Medicine Influenza Quad-PF 2020-07-16 Completed [facility] 00:00:00 of Medicine Influenza Quad-PF 2020-07-16 Completed [facility] 00:00:00 of Medicine Influenza Quad-PF 2020-07-16 Completed [facility] 00:00:00 of Medicine Influenza Quad-PF 2020-07-16 Completed [facility] 00:00:00 of Medicine Influenza Quad-PF 2020-07-16 Completed [facility] 00:00:00 of Medicine Influenza Quad-PF 2020-07-16 Completed [facility] 00:00:00 of Medicine Influenza Quad-PF 2019-07-07 Completed [facility] 00:00:00 of Medicine Influenza Quad-PF 2019-07-07 Completed [facility] 00:00:00 of Medicine Influenza Quad-PF 2019-07-07 Completed [facility] 00:00:00 of Medicine Influenza Quad-PF 2019-07-07 Completed [facility] 00:00:00 of Medicine Influenza Quad-PF 2019-07-07 Completed [facility] 00:00:00 of Medicine Influenza Quad-PF 2019-07-07 Completed [facility] 00:00:00 of Medicine Influenza Quad-PF 2019-07-07 Completed [facility] 00:00:00 of Medicine Influenza Quad-PF 2019-07-07 Completed [facility] 00:00:00 of Medicine Influenza Quad-PF 2019-07-07 Completed [facility] 00:00:00 of Medicine Influenza Quad-PF 2019-07-07 Completed [facility] 00:00:00 of Medicine Influenza Quad-PF 2019-07-07 Completed [facility] 00:00:00 of Medicine Influenza Quad-PF 2019-07-07 Completed [facility] 00:00:00 of Medicine Influenza Quad-PF 2019-07-07 Completed [facility] 00:00:00 of Medicine Influenza Quad-PF 2019-07-07 Completed [facility] 00:00:00 of Medicine Influenza Quad-PF 2019-07-07 Completed [facility] 00:00:00 of Medicine Influenza Quad-PF 2019-07-07 Completed [facility] 00:00:00 of Medicine Influenza Quad-PF 2019-07-07 Completed [facility] 00:00:00 of Medicine Influenza Quad-PF 2019-07-07 Completed [facility] 00:00:00 of Medicine Influenza Quad-PF 2019-07-07 Completed [facility] 00:00:00 of Medicine Influenza Quad-PF 2019-07-07 Completed [facility] 00:00:00 of Medicine Influenza Quad-PF 2019-07-07 Completed [facility] 00:00:00 of Medicine Influenza Quad-PF 2019-07-07 Completed [facility] 00:00:00 of Medicine Influenza Quad-PF 2019-07-07 Completed [facility] 00:00:00 of Medicine Influenza Quad-PF 2019-07-07 Completed [facility] 00:00:00 of Medicine Influenza Quad-PF 2019-07-07 Completed [facility] 00:00:00 of Medicine Influenza Quad-PF 2019-07-07 Completed [facility] 00:00:00 of Medicine Influenza Quad-PF 2019-07-07 Completed [facility] 00:00:00 of Medicine Influenza Quad-PF 2019-07-07 Completed [facility] 00:00:00 of Medicine Influenza Quad-PF 2019-07-07 Completed [facility] 00:00:00 of Medicine Influenza Quad-PF 2019-07-07 Completed [facility] 00:00:00 of Medicine Influenza Quad-PF 2019-07-07 Completed [facility] 00:00:00 of Medicine Influenza Quad-PF 2019-07-07 Completed [facility] 00:00:00 of Medicine Vital Signs Vital [...] HEIGHT 2021-01-08 09:31:00 165.1 cm Systolic blood 2022-05-17 14:34:00 132 mm[Hg] [facility] pressure Medicine Diastolic blood 2022-05-17 14:34:00 77 mm[Hg] [facility] Heart rate 2022-05-17 14:34:00 70 /min [facility] Oxygen saturation in 2022-05-17 14:34:00 98 /min [facility] blood by [facility] Pulse oximetry Body height 2022-05-17 14:33:00 162.6 cm [facility] Body weight 2022-05-17 14:33:00 80.74 kg [facility] BMI 2022-05-17 14:33:00 30[facility] Systolic blood 2022-05-06 15:13:00 131 mm[Hg] [facility] pressure Medicine Diastolic blood 2022-05-06 15:13:00 84 mm[Hg] [facility] Heart rate 2022-05-06 15:13:00 71 /min [facility] of Medicine Body height 2022-05-06 15:13:00 [facility] Body weight 2022-05-06 15:13:00 81.194 kg [facility] BMI 2022-05-06 15:13:00 30.73 [facility] Systolic blood 2022-05-04 19:54:00 146 mm[Hg] [facility] pressure Medicine Diastolic blood 2022-05-04 19:54:00 82 mm[Hg] [facility] pressure Medicine Heart rate 2022-05-04 19:54:00 69 /min [facility] of Medicine Body temperature 2022-05-04 19:54:00 36.67 [facility] Respiratory rate 2022-05-04 19:54:00 18 /min [facility] Body height 2022-05-04 19:54:00 162.6 cm [facility] of Medicine Body weight 2022-05-04 19:54:00 81.375 kg [facility] of Medicine BMI 2022-05-04 19:54:00 30.79 [facility] 2022-05-04 19:54:00 98 /min [facility] Arterial blood by [facility] Pulse oximetry Systolic blood 2022-04-28 13:08:00 142 mm[Hg] [facility] [facility] Diastolic blood 2022-04-28 13:08:00 82 mm[Hg] [facility] Heart rate 2022-04-28 13:08:00 81 /min [facility] Body height 2022-04-28 13:08:00 165.1 cm [facility] Body weight 2022-04-28 13:08:00 79.833 kg [facility] BMI 2022-04-28 13:08:00 29.29 kg/m2 [facility] Systolic blood 2022-04-12 19:08:00 120 mm[Hg] [facility] pressure Medicine Diastolic blood 2022-04-12 19:08:00 77 mm[Hg] [facility] pressure Medicine Heart rate 2022-04-12 19:08:00 77 /min [facility] Body temperature 2022-04-12 19:08:00 37.33 [facility] Body height 2022-04-12 19:08:00 162.6 cm [facility] Body weight 2022-04-12 19:08:00 79.379 kg [facility] BMI 2022-04-12 19:08:00 30.04 kg/m2 [facility] Systolic blood 2022-03-29 19:53:00 129 mm[Hg] [facility] pressure Medicine Diastolic blood 2022-03-29 19:53:00 81 mm[Hg] [facility] pressure Medicine Heart rate 2022-03-29 19:53:00 75 /min [facility] Body height 2022-03-29 19:53:00 162.6 cm [facility] Medicine Body weight 2022-03-29 19:53:00 78.472 kg [facility] BMI 2022-03-29 19:53:00 29.70 kg/m2 [facility] Systolic blood 2022-03-18 15:16:00 158 mm[Hg] [facility] pressure Medicine Diastolic blood 2022-03-18 15:16:00 89 mm[Hg] [facility] pressure Medicine Heart rate 2022-03-18 15:16:00 72 /min [facility] Body height 2022-03-18 15:16:00 162.6 cm [facility] Body weight 2022-03-18 15:16:00 78.472 kg [facility] BMI 2022-03-18 15:16:00 29.70 kg/m2 [facility] Systolic blood 2022-03-16 20:31:00 130 mm[Hg] [facility] pressure Medicine Diastolic blood 2022-03-16 20:31:00 86 mm[Hg] [facility] pressure Medicine Heart rate 2022-03-16 20:31:00 73 /min [facility] Body temperature 2022-03-16 20:31:00 36.94 [facility] Respiratory rate 2022-03-16 20:31:00 18 /min [facility] Body height 2022-03-16 20:31:00 162.6 cm [facility] Body weight 2022-03-16 20:31:00 78.472 kg [facility] BMI 2022-03-16 20:31:00 29.70 kg/m2 [facility] Systolic blood 2022-02-14 15:56:00 122 mm[Hg] [facility] pressure Medicine Diastolic blood 2022-02-14 15:56:00 78 mm[Hg] [facility] pressure Medicine Heart rate 2022-02-14 15:56:00 79 /min [facility] Body height 2022-02-14 15:56:00 162.6 cm [facility] Body weight 2022-02-14 15:56:00 78.472 kg [facility] BMI 2022-02-14 15:56:00 29.70 kg/m2 [facility] Systolic blood 2022-02-10 20:50:00 150 mm[Hg] [facility] Medicine Diastolic blood 2022-02-10 20:50:00 87 mm[Hg] [facility] pressure Medicine Body height 2022-02-10 20:49:00 162.6 cm [facility] Body weight 2022-02-10 20:49:00 78.472 kg [facility] BMI 2022-02-10 20:49:00 29.70 [facility] Oxygen saturation in 2022-02-10 20:49:00 100 /min [facility] Arterial blood by [facility] Pulse oximetry Heart rate 2022-02-10 20:49:00 77 /min [facility] Respiratory rate 2022-02-10 20:49:00 16 /min [facility] Systolic blood 2021-12-20 18:57:00 120 mm[Hg] [facility] pressure Medicine Diastolic blood 2021-12-20 18:57:00 72 mm[Hg] [facility] pressure Medicine Heart rate 2021-12-20 18:57:00 75 /min [facility] Body height 2021-12-20 18:57:00 162.6 cm [facility] Body weight 2021-12-20 18:57:00 78.472 kg [facility] BMI 2021-12-20 18:57:00 29.70 [facility]m2 [facility] Systolic blood 2021-12-10 15:14:00 140 mm[Hg] [facility] pressure Medicine Diastolic blood 2021-12-10 15:14:00 80 mm[Hg] [facility] pressure Medicine Heart rate 2021-12-10 15:14:00 72 /min [facility] Body height 2021-12-10 15:14:00 162.6 cm [facility] Body weight 2021-12-10 15:14:00 78.472 kg [facility] BMI 2021-12-10 15:14:00 29.70 kg/m2 [facility] Systolic blood 2021-11-17 19:37:00 119 mm[Hg] [facility] pressure Medicine Diastolic blood 2021-11-17 19:37:00 76 mm[Hg] [facility] pressure Medicine Heart rate 2021-11-17 19:36:00 77 /min [facility] Respiratory rate 2021-11-17 19:36:00 16 /min [facility] Body height 2021-11-17 19:36:00 162.6 cm [facility] Body weight 2021-11-17 19:36:00 78.472 kg [facility] BMI 2021-11-17 19:36:00 29.70 kg/m2 [facility] Oxygen saturation in 2021-11-17 19:36:00 99 /min [facility] Arterial blood by Medicine Pulse oximetry Systolic blood 2021-11-12 22:19:00 130 mm[Hg] [facility] pressure Medicine Diastolic blood 2021-11-12 22:19:00 86 mm[Hg] [facility] pressure Medicine Heart rate 2021-11-12 22:19:00 78 /min [facility] Body temperature 2021-11-12 22:19:00 37 [facility] Body height 2021-11-12 22:19:00 162.6 cm [facility] Body weight 2021-11-12 22:19:00 78.563 kg [facility] BMI 2021-11-12 22:19:00 29.73 kg/m2 [facility] Oxygen saturation in 2021-11-12 22:19:00 100 /min [facility] Arterial blood by Medicine Pulse oximetry Systolic blood 2021-09-27 20:40:00 148 mm[Hg] [facility] pressure Medicine Diastolic blood 2021-09-27 20:40:00 81 mm[Hg] [facility] pressure Medicine Heart rate 2021-09-27 20:40:00 74 /min [facility] Body height 2021-09-27 20:40:00 162.6 cm [facility] Body weight 2021-09-27 20:40:00 79.833 kg [facility] BMI 2021-09-27 20:40:00 30.21 kg/m2 [facility] Systolic blood 2021-09-22 21:21:00 137 mm[Hg] [facility] pressure Medicine Diastolic blood 2021-09-22 21:21:00 75 mm[Hg] [facility] pressure Medicine Heart rate 2021-09-22 21:21:00 76 /min [facility] Body temperature 2021-09-22 21:21:00 36 [facility] Body height 2021-09-22 21:21:00 162.6 [facility] Systolic blood 2021-08-31 15:43:00 133 mm[Hg] [facility] pressure Medicine Diastolic blood 2021-08-31 15:43:00 85 mm[Hg] [facility] pressure Medicine Heart rate 2021-08-31 15:43:00 70 /[facility] Respiratory rate 2021-08-31 15:43:00 16 /min [facility] Body height 2021-08-31 15:43:00 162.6 cm [facility] Body weight 2021-08-31 15:43:00 79.833 [facility] BMI 2021-08-31 15:43:00 30.21 kg/m2 [facility] Oxygen saturation in 2021-08-31 15:43:00 99 /min [facility] Arterial blood by [facility] Pulse oximetry Systolic blood 2021-08-18 19:04:00 148 mm[Hg] [facility] pressure Medicine Diastolic blood 2021-08-18 19:04:00 78 mm[Hg] [facility] pressure Medicine Heart rate 2021-08-18 19:04:00 76 /min [facility] Respiratory rate 2021-08-18 19:04:00 16 /min [facility] Systolic blood 2021-06-30 14:11:00 144 mm[Hg] [facility] Diastolic blood 2021-06-30 14:11:00 81 mm[Hg] [facility] Heart rate 2021-06-30 14:11:00 80 /[facility] Body temperature 2021-06-30 14:11:00 36.61 [facility] Respiratory rate 2021-06-30 14:11:00 16 /min [facility] Body height 2021-06-30 14:11:00 162.6 cm [facility] Body weight 2021-06-30 14:11:00 78.019 kg [facility] BMI 2021-06-30 14:11:00 29.52 kg/m2 [facility] Systolic blood 2021-06-24 19:52:00 131 mm[Hg] [facility] Diastolic blood 2021-06-24 19:52:00 81 mm[Hg] [facility] Heart rate 2021-06-24 19:52:00 92 /min [facility] Respiratory rate 2021-06-24 19:52:00 16 /min [facility] Body height 2021-06-24 19:52:00 162.6 cm [facility] Body weight 2021-06-24 19:52:00 78.019 kg [facility] BMI 2021-06-24 19:52:00 29.52 kg/m2 [facility] Oxygen saturation in 2021-06-24 19:52:00 98 /min [facility] Arterial blood by Medicine Pulse oximetry HEIGHT 2021-06-02 08:50:00 157.5 cm WEIGHT 2021-06-02 08:50:00 79.289 kg Systolic blood 2021-06-01 19:52:00 155 mm[Hg] [facility] Diastolic blood 2021-06-01 19:52:00 89 mm[Hg] [facility] Medicine Heart rate 2021-06-01 19:52:00 92 /min [facility] Respiratory rate 2021-06-01 19:52:00 16 /min [facility] Body height 2021-06-01 19:52:00 162.6 cm [facility] Body weight 2021-06-01 19:52:00 78.472 kg [facility] BMI 2021-06-01 19:52:00 29.70 kg/m2 [facility] Oxygen saturation in 2021-06-01 19:52:00 98 /min [facility] blood by [facility] Pulse oximetry WEIGHT 2021-05-17 04:44:00 79.379 kg [...] kg Systolic blood 2021-04-14 20:07:00 145 mm[Hg] [facility] pressure Medicine Diastolic blood 2021-04-14 20:07:00 83 mm[Hg] [facility] Heart rate 2021-04-14 20:07:00 89 /min [facility] Body temperature 2021-04-14 20:07:00 36.44 [facility] Body height 2021-04-14 20:07:00 162.6 cm [facility] Body weight 2021-04-14 20:07:00 81.647 kg [facility] BMI 2021-04-14 20:07:00 30.90 kg/m2 [facility] Systolic blood 2021-04-14 20:07:00 145 mm[Hg] [facility] pressure Medicine Diastolic blood 2021-04-14 20:07:00 83 mm[Hg] [facility] pressure Medicine Heart rate 2021-04-14 20:07:00 89 /min [facility] Medicine Body temperature 2021-04-14 20:07:00 36.44 [facility] Body height 2021-04-14 20:07:00 162.6 cm [facility] Body weight 2021-04-14 20:07:00 81.647 kg [facility] BMI 2021-04-14 20:07:00 30.90 kg/m2 [facility] WEIGHT 2021-03-22 09:56:00 81.647 kg WEIGHT 2021-03-22 09:56:00 81.647 kg Systolic blood 2021-03-03 17:15:00 159 mm[Hg] [facility] pressure Medicine Diastolic blood 2021-03-03 17:15:00 89 mm[Hg] [facility] pressure Medicine Heart rate 2021-03-03 [...] Medicine Systolic blood 2021-03-03 17:15:00 159 mm[Hg] [facility] pressure Medicine Diastolic blood 2021-03-03 17:15:00 89 mm[Hg] [facility] pressure Medicine Heart rate 2021-03-03 17:15:00 99 /min [facility] Body height 2021-03-03 17:15:00 162.6 cm [facility] Body weight 2021-03-03 17:15:00 83.915 kg [facility] BMI 2021-03-03 17:15:00 31.76 kg/m2 [facility] Systolic blood 2021-02-16 14:32:00 143 mm[Hg] [facility] pressure Medicine Diastolic blood 2021-02-16 14:32:00 85 mm[Hg] [facility] Heart rate 2021-02-16 14:32:00 81 /min [facility] Medicine Respiratory rate 2021-02-16 14:32:00 16 /min [facility] Body height 2021-02-16 14:32:00 162.6 cm [facility] Body weight 2021-02-16 14:32:00 84.369 kg [facility] Medicine BMI 2021-02-16 14:32:00 31.93 kg[facility]m2 [facility] Oxygen saturation in 2021-02-16 14:32:00 98 /min [facility] of Arterial blood by Medicine Pulse oximetry Systolic blood 2021-02-16 14:32:00 143 mm[Hg] [facility] pressure Medicine Diastolic blood 2021-02-16 14:32:00 85 mm[Hg] [facility] Heart rate 2021-02-16 14:32:00 81 /min [facility] Medicine Respiratory rate 2021-02-16 14:32:00 16 /min [facility] Body height 2021-02-16 14:32:00 162.6 cm [facility] Body weight 2021-02-16 14:32:00 84.369 kg [facility] BMI 2021-02-16 14:32:00 31.93 [facility]m2 [facility] O[facility] saturation in 2021-02-16 14:32:00 98 /min [facility] blood by Medicine Pulse oximetry Systolic blood 2021-01-25 16:39:00 145 mm[Hg] [facility] pressure Medicine Diastolic blood 2021-01-25 16:39:00 83 mm[Hg] [facility] pressure Medicine Heart rate 2021-01-25 16:39:00 94 /min [facility] Body height 2021-01-25 16:39:00 162.6 cm [facility] Body weight 2021-01-25 16:39:00 83.915 kg [facility] BMI 2021-01-25 16:39:00 31.76 kg/m2 [facility] Medicine Systolic blood 2021-01-25 16:39:00 145 mm[Hg] [facility] pressure Medicine Diastolic blood 2021-01-25 16:39:00 83 mm[Hg] [facility] Heart rate 2021-01-25 16:39:00 94 /min [facility] Body height 2021-01-25 16:39:00 162.6 cm [facility] Medicine Body weight 2021-01-25 16:39:00 83.915 kg [facility] BMI 2021-01-25 16:39:00 31.76 kg/m2 [facility] HEIGHT 2021-01-04 12:09:00 165.1 cm WEIGHT 2021-01-04 12:09:00 81.647 kg HEIGHT 2021-01-04 12:09:00 165.1 cm WEIGHT 2021-01-04 12:09:00 81.647 kg Systolic blood 2020-12-02 20:56:00 147 mm[Hg] [facility] pressure Medicine Diastolic blood 2020-12-02 20:56:00 90 mm[Hg] [facility] pressure Medicine Heart rate 2020-12-02 20:56:00 102 /min [facility] Medicine Systolic blood 2020-12-02 20:56:00 147 mm[Hg] [facility] pressure Medicine Diastolic blood 2020-12-02 20:56:00 90 mm[Hg] [facility] pressure Medicine Heart rate 2020-12-02 20:56:00 102 /min [facility] Medicine Systolic blood 2020-10-12 19:58:00 137 mm[Hg] [facility] pressure Medicine Diastolic blood 2020-10-12 19:58:00 85 mm[Hg] [facility] pressure Medicine Heart rate 2020-10-12 19:58:00 93 [...] Medicine Systolic blood 2020-10-12 19:58:00 137 mm[Hg] [facility] pressure Medicine Diastolic blood 2020-10-12 19:58:00 85 mm[Hg] [facility] pressure Medicine Heart rate 2020-10-12 19:58:00 93 [...] Medicine Systolic blood 2020-08-06 19:10:00 133 mm[Hg] [facility] pressure Medicine Diastolic blood 2020-08-06 19:10:00 84 mm[Hg] [facility] pressure Medicine Heart rate 2020-08-06 19:10:00 85 [...] Medicine Systolic blood 2020-08-06 19:10:00 133 mm[Hg] [facility] pressure Medicine Diastolic blood 2020-08-06 19:10:00 84 mm[Hg] [employer] [facility] pressure Medicine Heart rate 2020-08-06 19:10:00 [...] Center [facility] Systolic blood 2020-04-23 16:34:00 147 mm[Hg] [facility] pressure Medicine Diastolic blood 2020-04-23 16:34:00 81 mm[Hg] [facility] Medicine Heart rate 2020-04-23 16:34:00 87 /min [facility] Medicine Respiratory rate 2020-04-23 16:34:00 16 /min [facility] Body height 2020-04-23 16:34:00 162.6 cm [facility] Medicine Body weight 2020-04-23 16:34:00 85.73 kg [facility] BMI 2020-04-23 16:34:00 32.44 kg/m2 [facility] Medicine Oxygen saturation in 2020-04-23 16:34:00 98 /min [facility] blood by Medicine Pulse oximetry Systolic blood 2020-04-23 16:34:00 147 mm[Hg] [facility] pressure Medicine Diastolic blood 2020-04-23 16:34:00 81 mm[Hg] [facility] Medicine Heart rate 2020-04-23 16:34:00 87 /min [facility] Medicine Respiratory rate 2020-04-23 16:34:00 16 /min [facility] Body height 2020-04-23 16:34:00 162.6 cm [facility] Medicine Body weight 2020-04-23 16:34:00 85.73 kg [facility] BMI 2020-04-23 16:34:00 32.44 kg/m2 [facility] Medicine Oxygen saturation in 2020-04-23 16:34:00 98 /min [facility] blood by Medicine Pulse oximetry Body weight 2020-01-22 14:44:00 83.915 kg [facility] Medicine BMI 2020-01-22 14:44:00 31.76 kg/m2 [facility] Medicine Systolic blood 2020-01-22 14:44:00 131 mm[Hg] [facility] pressure Medicine Diastolic blood 2020-01-22 14:44:00 80 mm[Hg] [facility] pressure Medicine Heart rate 2020-01-22 14:44:00 83 /min [facility] Medicine Body temperature 2020-01-22 14:44:00 36.61 [facility] Body height 2020-01-22 14:44:00 162.6 cm [facility] Body weight 2020-01-22 14:44:00 83.915 kg [facility] BMI 2020-01-22 14:44:00 31.76 kg/m2 [facility] Medicine Systolic blood 2020-01-22 14:44:00 131 mm[Hg] [facility] pressure Medicine Diastolic blood 2020-01-22 14:44:00 80 mm[Hg] [facility] pressure Medicine Heart rate 2020-01-22 14:44:00 83 /min [facility] Medicine Body temperature 2020-01-22 14:44:00 36.61 [facility] Body height 2020-01-22 14:44:00 162.6 cm [facility] Medicine Systolic blood 2019-08-16 17:59:00 138 mm[Hg] [facility] pressure Medicine Diastolic blood 2019-08-16 17:59:00 80 mm[Hg] [facility] pressure Medicine Heart rate 2019-08-16 17:59:00 78 /min [facility] Medicine Body height 2019-08-16 17:59:00 165.1 cm [facility] Body weight 2019-08-16 17:59:00 86.183 kg [facility] BMI 2019-08-16 17:59:00 31.62 kg/m2 [facility] Medicine Systolic blood 2019-08-16 17:59:00 138 mm[Hg] [facility] pressure Medicine Diastolic blood 2019-08-16 17:59:00 80 mm[Hg] [employer] [facility] pressure Medicine Heart rate 2019-08-16 17:59:00 78 /min [facility] Body height 2019-08-16 17:59:00 165.1 cm [facility] Body weight 2019-08-16 17:59:00 86.183 kg [facility] BMI 2019-08-16 17:59:00 31.62 kg/m2 [facility] Procedures Procedure Date / Time Performing Clinician Source Performed AMB REF TO PHYSICAL MED 2022-03-21 13:36:35 [facility] POCT URINALYSIS DIPSTICK 2022-03-16 00:00:[address] [facility] POCT URINALYSIS DIPSTICK 2022-03-16 00:00:00 [facility] ELECTROCARDIOGRAM COMPLETE 2022-02-10 20:56:00 [facility] POCT URINALYSIS DIPSTICK 2021-09-22 00:00:[address] [facility] POCT URINALYSIS DIPSTICK 2021-08-18 00:00:[address] [facility] POCT URINALYSIS DIPSTICK 2021-06-30 00:00:[address] [facility] ELECTROCARDIOGRAM COMPLETE 2021-06-24 19:56:00 [facility] POCT URINALYSIS DIPSTICK 2021-04-14 00:00:[address] [facility] POCT URINALYSIS DIPSTICK 2021-03-03 00:00:[address] [facility] ELECTROCARDIOGRAM COMPLETE 2021-02-16 14:39:00 [facility] POCT URINALYSIS DIPSTICK 2020-12-02 00:00:[address] [facility] Plan of Care Planned Activity Planned Date Details Comments Source Future Scheduled 2022-05-17 COVID-19 Vaccine (#1) [facility] Test 10:26:54 [code = COVID-19 of Medicine Vaccine (#1)] Future Scheduled 2022-05-17 Pneumococcal 65+ (1 - [facility] [employer] Test 10:26:54 PCV) [code = of Medicine Pneumococcal 65+ (1 - PCV)] Future Scheduled 2022-05-17 TETANUS SHOT (ADULT) [facility] Test 10:26:54 [code = TETANUS SHOT of Medi cine (ADULT)] Future Scheduled 2022-05-17 Diabetic foot [facility] Test 10:26:54 examination of Medicine (regime/therapy) [code = 569706528] Future Scheduled 2022-05-17 ANNUAL DIABETIC [facility] Test 10:26:54 RETINOPATHY SCREENING of Med icine [code = ANNUAL DIABETIC RETINOPATHY SCREENING] Future Scheduled 2022-05-17 Hepatitis C screening [facility] Test 10:26:54 (procedure) [code = of Medic ine [id number]] Future Scheduled 2022-05-17 ZOSTER VACCINE (1 of 2) [facility] Test 10:26:54 [code = ZOSTER VACCINE of Me dicine (1 of 2)] Future Scheduled 2022-05-17 MEDICARE IPPE (WELCOME B [facility] Test 10:26:54 TO MEDICARE) [code = of Medi cine MEDICARE IPPE (WELCOME TO MEDICARE)] Future Scheduled 2022-05-17 Abdominal aortic [facility] Test 10:26:54 aneurysm screening of Medici ne (procedure) [code = 576310422] Future Scheduled 2022-05-17 Hemoglobin A1c [facility] [employer] Test 10:26:54 measurement (procedure) of M edicine [code = [id number]] Future Scheduled 2022-05-17 FLU VACCINE > 6 MONTHS [facility] Test 10:26:54 [code = FLU VACCINE > 6 of M edicine MONTHS] Future Scheduled 2022-05-17 BMI FOLLOW UP PLAN [facility] r [facility] Test 10:26:54 [code = BMI FOLLOW UP of Med icine PLAN] Future Scheduled 2022-05-17 FALL SCREEN [code = [employer] Test 10:26:54 FALL SCREEN] of Medicine Future Scheduled 2022-05-17 Screening for malignant [facility] Test 10:26:54 neoplasm of colon of Medicin e (procedure) [code = 469166124] Future Scheduled 2022-05-17 COVID-19 Vaccine (#1) [facility] Test 10:05:13 [code = COVID-19 of Medicine Vaccine (#1)] Future Scheduled 2022-05-17 Pneumococcal 65+ (1 - [facility] [employer] Test 10:05:13 PCV) [code = of Medicine Pneumococcal 65+ (1 - PCV)] Future Scheduled 2022-05-17 TETANUS SHOT (ADULT) [facility] [employer] Test 10:05:13 [code = TETANUS SHOT of Medi cine (ADULT)] Future Scheduled 2022-05-17 Diabetic foot [facility] [employer] Test 10:05:13 examination of Medicine (regime/therapy) [code = 403920929] Future Scheduled 2022-05-17 ANNUAL DIABETIC [facility] [employer] Test 10:05:13 RETINOPATHY SCREENING of Med icine [code = ANNUAL DIABETIC RETINOPATHY SCREENING] Future Scheduled 2022-05-17 Hepatitis C screening [facility] Test 10:05:13 (procedure) [code = of Medic ine 940496826] Future Scheduled 2022-05-17 ZOSTER VACCINE (1 of 2) [facility] Test 10:05:13 [code = ZOSTER VACCINE of Nm dicine (1 of 2)] Future Scheduled 2022-05-17 MEDICARE IPPE (WELCOME [facility] Test 10:05:13 TO MEDICARE) [code = of Medi cine MEDICARE IPPE (WELCOME TO MEDICARE)] Future Scheduled 2022-05-17 Abdominal aortic [facility] Test 10:05:13 aneurysm screening of Medici ne (procedure) [code = 373286589] Future Scheduled 2022-05-17 Hemoglobin A1c [facility] [employer] Test 10:05:13 measurement (procedure) of M edicine [code = 54784008] Future Scheduled 2022-05-17 FLU VACCINE > 6 MONTHS [facility] Test 10:05:13 [code = FLU VACCINE > 6 of M edicine MONTHS] Future Scheduled 2022-05-17 BMI FOLLOW UP PLAN [facility] Test 10:05:13 [code = BMI FOLLOW UP of Med icine PLAN] Future Scheduled 2022-05-17 FALL SCREEN [code = [employer] Test 10:05:13 FALL SCREEN] of Medicine Future Scheduled 2022-05-17 Screening for malignant [facility] [employer] Test 10:05:13 neoplasm of colon of Medicin e (procedure) [code = 160244860] Future Scheduled 2022-05-06 COVID-19 Vaccine (#1) [facility] Test 10:03:26 [code = COVID-19 of Medicine Vaccine (#1)] Future Scheduled 2022-05-06 Pneumococcal 65+ (1 - [facility] Test 10:03:26 PCV) [code = of Medicine Pneumococcal 65+ (1 - PCV)] Future Scheduled 2022-05-06 TETANUS SHOT (ADULT) [facility] [employer] Test 10:03:26 [code = TETANUS SHOT of Medi cine (ADULT)] Future Scheduled 2022-05-06 Diabetic foot [facility] [employer] Test 10:03:26 examination of Medicine (regime/therapy) [code = 267678308] Future Scheduled 2022-05-06 ANNUAL DIABETIC [facility] [employer] Test 10:03:26 RETINOPATHY SCREENING of Med icine [code = ANNUAL DIABETIC RETINOPATHY SCREENING] Future Scheduled 2022-05-06 Hepatitis C screening [facility] Test 10:03:26 (procedure) [code = of Medic ine 183489999] Future Scheduled 2022-05-06 ZOSTER VACCINE (1 of 2) [facility] Test 10:03:26 [code = ZOSTER VACCINE of Nm dicine (1 of 2)] Future Scheduled 2022-05-06 MEDICARE IPPE (WELCOME [facility] [employer] Test 10:03:26 TO MEDICARE) [code = of Medi cine MEDICARE IPPE (WELCOME TO MEDICARE)] Future Scheduled 2022-05-06 Abdominal aortic [facility] Test 10:03:26 aneurysm screening of Medici ne (procedure) [code = 871833130] Future Scheduled 2022-05-06 Hemoglobin A1c [facility] [employer] Test 10:03:26 measurement (procedure) of M edicine [code = 93658037] Future Scheduled 2022-05-06 FLU VACCINE > 6 MONTHS [facility] Test 10:03:26 [code = FLU VACCINE > 6 of M edicine MONTHS] Future Scheduled 2022-05-06 FALL SCREEN [code = [employer] Test 10:03:26 FALL SCREEN] of Medicine Future Scheduled 2022-05-06 BMI FOLLOW UP PLAN [facility] Test 10:03:26 [code = BMI FOLLOW UP of Med icine PLAN] Future Scheduled 2022-05-06 Screening for malignant [facility] [employer] Test 10:03:26 neoplasm of colon of Medicin e (procedure) [code = 713828990] Future Scheduled 2022-05-04 COVID-19 Vaccine (#1) [facility] Test 15:29:04 [code = COVID-19 of Medicine Vaccine (#1)] Future Scheduled 2022-05-04 [facility]neumococcal 65+ ([facility] - [facility] 15:29:04 PCV) [code = of Medicine Pneumococcal 65+ (1 - PCV)] Future Scheduled 2022-05-04 TETANUS SHOT (ADULT) [facility] Test 15:29:04 [code = TETANUS SHOT of Medi cine (ADULT)] Future Scheduled 2022-05-04 Diabetic foot [facility] [employer] Test 15:29:04 examination of Medicine (regime/therapy) [code = 073021530] Future Scheduled 2022-05-04 ANNUAL DIABETIC [facility] [employer] Test 15:29:04 RETINOPATHY SCREENING of Med icine [code = ANNUAL DIABETIC RETINOPATHY SCREENING] Future Scheduled 2022-05-04 Hepatitis C screening [facility] Test 15:29:04 (procedure) [code = of Medic ine 313579867] Future Scheduled 2022-05-04 ZOSTER VACCINE (1 of 2) [facility] Test 15:29:04 [code = ZOSTER VACCINE of Me dicine (1 of 2)] Future Scheduled 2022-05-04 Abdominal aortic [facility] Test 15:29:04 aneurysm screening of Medici ne (procedure) [code = 440569004] Future Scheduled 2022-05-04 Hemoglobin A1c [facility] Test 15:29:04 measurement (procedure) of M edicine [code = 51471090] Future Scheduled 2022-05-04 FLU VACCINE > 6 MONTHS [facility] Test 15:29:04 [code = FLU VACCINE > 6 of M edicine MONTHS] Future Scheduled 2022-05-04 FALL SCREEN [code = [employer] Test 15:29:04 FALL SCREEN] of Medicine Future Scheduled 2022-05-04 BMI FOLLOW UP PLAN [facility] Test 15:29:04 [code = BMI FOLLOW UP of Med icine PLAN] Future Scheduled 2022-05-04 Screening for malignant [facility] Test 15:29:04 neoplasm of colon of Medicin e (procedure) [code = 226718815] Future Scheduled 2022-04-12 Screening for malignant [facility] Test 14:55:00 neoplasm of colon of Medicin e (procedure) [code = 765957132] Future Scheduled 2022-04-12 COVID-19 Vaccine (#1) [facility] Test 14:55:00 [code = COVID-19 of Medicine Vaccine (#1)] Future Scheduled 2022-04-12 Pneumococcal 65+ (1 - Ba [facility] Test 14:55:00 PCV) [code = of Medicine Pneumococcal 65+ (1 - PCV)] Future Scheduled 2022-04-12 TETANUS SHOT (ADULT) [facility] Test 14:55:00 [code = TETANUS SHOT of Medi cine (ADULT)] Future Scheduled 2022-04-12 Diabetic foot [facility] [employer] Test 14:55:00 examination of Medicine (regime/therapy) [code = 097340175] Future Scheduled 2022-04-12 ANNUAL DIABETIC [facility] [employer] Test 14:55:00 RETINOPATHY SCREENING of Med icine [code = ANNUAL DIABETIC RETINOPATHY SCREENING] Future Scheduled 2022-04-12 Hepatitis C screening [facility] Test 14:55:00 (procedure) [code = of Medic ine 779340320] Future Scheduled 2022-04-12 ZOSTER VACCINE (1 of 2) [facility] Test 14:55:00 [code = ZOSTER VACCINE of Me dicine (1 of 2)] Future Scheduled 2022-04-12 Abdominal aortic [facility] Test 14:55:00 aneurysm screening of Medici ne (procedure) [code = 487533774] Future Scheduled 2022-04-12 BMI FOLLOW UP PLAN [facility] [place] Test 14:55:00 [code = BMI FOLLOW UP of Med icine PLAN] Future Scheduled 2022-04-12 Hemoglobin A1c [facility] [employer] Test 14:55:00 measurement (procedure) of M edicine [code = 39437773] Future Scheduled 2022-04-12 FLU VACCINE > 6 MONTHS [facility] Test 14:55:00 [code = FLU VACCINE > 6 of M edicine MONTHS] Future Scheduled 2022-04-12 FALL SCREEN [code = [facility] [place] Test 14:55:00 FALL SCREEN] of Medicine Future Scheduled 2022-03-30 PHI PANEL (URO DEPT) Expected: [facility] Test 00:00:00 [code = 73603] 03/30/2022 of Medicine (Approximate), Expires: 04/15/2022 Future Scheduled 2022-03-29 Screening for malignant [facility] Test 16:47:24 neoplasm of colon of Medicin e (procedure) [code = 038263856] Future Scheduled 2022-03-29 COVID-19 Vaccine (#1) [facility] Test 16:47:24 [code = COVID-19 of Medicine Vaccine (#1)] Future Scheduled 2022-03-29 Pneumococcal 65+ (1 - Ba [facility] [employer] Test 16:47:24 PCV) [code = of Medicine Pneumococcal 65+ (1 - PCV)] Future Scheduled 2022-03-29 TETANUS SHOT (ADULT) [facility] Test 16:47:24 [code = TETANUS SHOT of Medi cine (ADULT)] Future Scheduled 2022-03-29 Diabetic foot [facility] [employer] Test 16:47:24 examination of Medicine (regime/therapy) [code = 906766878] Future Scheduled 2022-03-29 ANNUAL DIABETIC [facility] [employer] Test 16:47:24 RETINOPATHY SCREENING of Med icine [code = ANNUAL DIABETIC RETINOPATHY SCREENING] Future Scheduled 2022-03-29 Hepatitis C screening [facility] Test 16:47:24 (procedure) [code = of Medic ine 750090845] Future Scheduled 2022-03-29 ZOSTER VACCINE (1 of 2) [facility] Test 16:47:24 [code = ZOSTER VACCINE of Me dicine (1 of 2)] Future Scheduled 2022-03-29 Abdominal aortic [facility] Test 16:47:24 aneurysm screening of Medici ne (procedure) [code = 937500429] Future Scheduled 2022-03-29 BMI FOLLOW UP PLAN [facility] Test 16:47:24 [code = BMI FOLLOW UP of Med icine PLAN] Future Scheduled 2022-03-29 Hemoglobin A1c [facility] Test 16:47:24 measurement (procedure) of M edicine [code = 68425389] Future Scheduled 2022-03-29 FLU VACCINE > 6 MONTHS B [facility] Test 16:47:24 [code = FLU VACCINE > 6 of M edicine MONTHS] Future Scheduled 2022-03-29 FALL SCREEN [code = [employer] Test 16:47:24 FALL SCREEN] of Medicine Future Scheduled 2022-03-29 MRI LUMBAR SPINE WO 1 Occurrences [facility] Test 15:51:19 CONTRAST [code = starting of Medicine 34859-3] 03/29/2022 until 03/29/2023 Future Scheduled 2022-03-29 MRI HIP LEFT WO 1 Occurrences [facility] Test 15:51:19 CONTRAST [code = 16038] starting of M edicine 03/29/2022 until 03/29/2023 Future Scheduled 2022-03-22 Screening for malignant [facility] Test 09:09:58 neoplasm of colon of Medicin e (procedure) [code = 130302720] Future Scheduled 2022-03-22 COVID-19 Vaccine (1) [facility] Test 09:09:58 [code = COVID-19 of Medicine Vaccine (1)] Future Scheduled 2022-03-22 TETANUS SHOT (ADULT) [facility] Test 09:09:58 [code = TETANUS SHOT of Medi cine (ADULT)] Future Scheduled 2022-03-22 Diabetic foot [facility] [employer] Test 09:09:58 examination of Medicine (regime/therapy) [code = 168745157] Future Scheduled 2022-03-22 ANNUAL DIABETIC [facility] [employer] Test 09:09:58 RETINOPATHY SCREENING of Jasvri kayne [code = ANNUAL DIABETIC RETINOPATHY SCREENING] Future Scheduled 2022-03-22 Hepatitis C screening [facility] Test 09:09:58 (procedure) [code = of Medic ine 904852800] Future Scheduled 2022-03-22 ZOSTER VACCINE (1 of 2) [facility] Test 09:09:58 [code = ZOSTER VACCINE of dicine (1 of 2)] Future Scheduled 2022-03-22 Abdominal aortic [facility] Test 09:09:58 aneurysm screening of Medici ne (procedure) [code = 308291017] Future Scheduled 2022-03-22 Pneumococcal 65+ (1 of B [facility] Test 09:09:58 1 - PPSV23) [code = of Medic ine Pneumococcal 65+ (1 of 1 - PPSV23)] Future Scheduled 2022-03-22 BMI FOLLOW UP PLAN [facility] Test 09:09:58 [code = BMI FOLLOW UP of Med rahulne PLAN] Future Scheduled 2022-03-22 Hemoglobin A1c [facility] Test 09:09:58 measurement (procedure) of Samir edicine [code = 87653968] Future Scheduled 2022-03-22 FLU VACCINE > 6 MONTHS B [facility] Test 09:09:58 [code = FLU VACCINE > 6 of M edicine MONTHS] Future Scheduled 2022-03-22 FALL SCREEN [code = [employer] Test 09:09:58 FALL SCREEN] of Medicine Future Scheduled 2022-03-18 US ARTERIAL LEG RIGHT 1 Occurrences [facility] Test 11:47:53 [code = 48466] starting of Medicine 03/18/2022 until 03/18/2023 Future Scheduled 2022-03-18 US ANK/BRAC INDICES, 1 Occurrences [facility] [employer] Test 11:40:17 SINGLE BILAT [code = starting of Medi cine 29696] 03/18/2022 until 03/18/2023 Future Scheduled 2022-03-16 Screening for malignant [facility] Test 15:15:08 neoplasm of colon of Medicin e (procedure) [code = 590129106] Future Scheduled 2022-03-16 COVID-19 Vaccine (1) [facility] Test 15:15:08 [code = COVID-19 of Medicine Vaccine (1)] Future Scheduled 2022-03-16 TETANUS SHOT (ADULT) [facility] Test 15:15:08 [code = TETANUS SHOT of Medi cine (ADULT)] Future Scheduled 2022-03-16 Diabetic foot [facility] [employer] Test 15:15:08 examination of Medicine (regime/therapy) [code = 217412293] Future Scheduled 2022-03-16 ANNUAL DIABETIC [facility] [employer] Test 15:15:08 RETINOPATHY SCREENING of Med tk [code = ANNUAL DIABETIC RETINOPATHY SCREENING] Future Scheduled 2022-03-16 Hepatitis C screening [facility] Test 15:15:08 (procedure) [code = of Medic ine 550082177] Future Scheduled 2022-03-16 ZOSTER VACCINE (1 of 2) [facility] Test 15:15:08 [code = ZOSTER VACCINE of Me dicine (1 of 2)] Future Scheduled 2022-03-16 Abdominal aortic [facility] Test 15:15:08 aneurysm screening of Medici ne (procedure) [code = 105592742] Future Scheduled 2022-03-16 Pneumococcal 65+ (1 of B [facility] [employer] Test 15:15:08 1 - PPSV23) [code = of Medic ine Pneumococcal 65+ (1 of 1 - PPSV23)] Future Scheduled 2022-03-16 BMI FOLLOW UP PLAN [facility] Test 15:15:08 [code = BMI FOLLOW UP of Med icine PLAN] Future Scheduled 2022-03-16 [facility]c [facility] Test 15:15:08 measurement (procedure) of M edicine [code = 61040690] Future Scheduled 2022-03-16 FLU VACCINE > 6 MONTHS B [facility] Test 15:15:08 [code = FLU VACCINE > 6 of M edicine MONTHS] Future Scheduled 2022-03-16 FALL SCREEN [code = [facility] [place] Test 15:15:08 FALL SCREEN] of Medicine Future Scheduled 2022-02-21 Screening for malignant [facility] Test 00:15:07 neoplasm of colon of Medicin e (procedure) [code = 113060413] Future Scheduled 2022-02-21 COVID-19 Vaccine (1) [facility] Test 00:15:07 [code = COVID-19 of Medicine Vaccine (1)] Future Scheduled 2022-02-21 TETANUS SHOT (ADULT) [facility] Test 00:15:07 [code = TETANUS SHOT of Medi cine (ADULT)] Future Scheduled 2022-02-21 Diabetic foot [facility] [employer] Test 00:15:07 examination of Medicine (regime/therapy) [code = 285986201] Future Scheduled 2022-02-21 ANNUAL DIABETIC [facility] [employer] Test 00:15:07 RETINOPATHY SCREENING of Med icine [code = ANNUAL DIABETIC RETINOPATHY SCREENING] Future Scheduled 2022-02-21 Hepatitis C screening [facility] Test 00:15:07 (procedure) [code = of Medic ine 355873065] Future Scheduled 2022-02-21 ZOSTER VACCINE (1 of 2) [facility] Test 00:15:07 [code = ZOSTER VACCINE of Nm dicine (1 of 2)] Future Scheduled 2022-02-21 Abdominal aortic [facility] Test 00:15:07 aneurysm screening of Medici ne (procedure) [code = 553132332] Future Scheduled 2022-02-21 Pneumococcal 65+ (1 of B [facility] Test 00:15:07 1 - PPSV23) [code = of Medic ine Pneumococcal 65+ (1 of 1 - PPSV23)] Future Scheduled 2022-02-21 BMI FOLLOW UP PLAN [facility] Test 00:15:07 [code = BMI FOLLOW UP of Med icine PLAN] Future Scheduled 2022-02-21 Hemoglobin A1c [employer] Test 00:15:07 measurement (procedure) of Samir edicine [code = 11177902] Future Scheduled 2022-02-21 FLU VACCINE > 6 MONTHS B [facility] Test 00:15:07 [code = FLU VACCINE > 6 of Samir edicine MONTHS] Future Scheduled 2022-02-21 FALL SCREEN [code = [facility] or [facility] Test 00:15:07 FALL SCREEN] of Medicine Future Scheduled 2022-02-10 Screening for malignant [facility] Test 16:13:11 neoplasm of colon of Medicin e (procedure) [code = 801037497] Future Scheduled 2022-02-10 COVID-19 Vaccine (1) [facility] Test 16:13:11 [code = COVID-19 of Medicine Vaccine (1)] Future Scheduled 2022-02-10 TETANUS SHOT (ADULT) [facility] Test 16:13:11 [code = TETANUS SHOT of Medi cine (ADULT)] Future Scheduled 2022-02-10 Diabetic foot [facility] Test 16:13:11 examination of Medicine (regime/therapy) [code = 880760925] Future Scheduled 2022-02-10 ANNUAL DIABETIC [facility] [employer] Test 16:13:11 RETINOPATHY SCREENING of Med icine [code = ANNUAL DIABETIC RETINOPATHY SCREENING] Future Scheduled 2022-02-10 Hepatitis C screening [facility] Test 16:13:11 (procedure) [code = of Medic ine 384182240] Future Scheduled 2022-02-10 ZOSTER VACCINE (1 of 2) [facility] Test 16:13:11 [code = ZOSTER VACCINE of Me dicine (1 of 2)] Future Scheduled 2022-02-10 Abdominal aortic [facility] Test 16:13:11 aneurysm screening of Medici ne (procedure) [code = 385480353] Future Scheduled 2022-02-10 Pneumococcal 65+ (1 of B [facility] Test 16:13:11 1 - PPSV23) [code = of Medic ine Pneumococcal 65+ (1 of 1 - PPSV23)] Future Scheduled 2022-02-10 BMI FOLLOW UP PLAN [facility] Test 16:13:11 [code = BMI FOLLOW UP of Med icine PLAN] Future Scheduled 2022-02-10 Hemoglobin A1c [facility] Test 16:13:11 measurement (procedure) of M edicine [code = 03515579] Future Scheduled 2022-02-10 FLU VACCINE > 6 MONTHS B [facility] Test 16:13:11 [code = FLU VACCINE > 6 of M edicine MONTHS] Future Scheduled 2022-02-10 FALL SCREEN [code = [facility] or [facility] Test 16:13:11 FALL SCREEN] of Medicine Future Scheduled 2022-02-10 ELECTROCARDIOGRAM [facility] Test 15:50:28 COMPLETE [code = 21005] of M edicine Future Scheduled 2022-01-17 US CAROTID [code = Expected: [facility] Test 00:00:00 13055] 01/17/2022, of Medicine Expires: 12/20/2022 Future Scheduled 2021-12-20 Screening for malignant [facility] Test 12:58:23 neoplasm of colon of Medicin e (procedure) [code = 037420923] Future Scheduled 2021-12-20 COVID-19 Vaccine (1) [facility] Test 12:58:23 [code = COVID-19 of Medicine Vaccine (1)] Future Scheduled 2021-12-20 TETANUS SHOT (ADULT) [facility] Test 12:58:23 [code = TETANUS SHOT of Medi cine (ADULT)] Future Scheduled 2021-12-20 Diabetic foot [facility] Test 12:58:23 examination of Medicine (regime/therapy) [code = 210490945] Future Scheduled 2021-12-20 ANNUAL DIABETIC [facility] Test 12:58:23 RETINOPATHY SCREENING of Med icine [code = ANNUAL DIABETIC RETINOPATHY SCREENING] Future Scheduled 2021-12-20 Hepatitis C screening [facility] Test 12:58:23 (procedure) [code = of Medic ine 977078549] Future Scheduled 2021-12-20 ZOSTER VACCINE (1 of 2) [facility] Test 12:58:23 [code = ZOSTER VACCINE of Me dicine (1 of 2)] Future Scheduled 2021-12-20 Abdominal aortic [facility] Test 12:58:23 aneurysm screening of Medici ne (procedure) [code = 418034696] Future Scheduled 2021-12-20 Pneumococcal 65+ (1 of B [facility] Test 12:58:23 1 - PPSV23) [code = of Medic ine Pneumococcal 65+ (1 of 1 - PPSV23)] Future Scheduled 2021-12-20 BMI FOLLOW UP PLAN [facility] Test 12:58:23 [code = BMI FOLLOW UP of Med icine PLAN] Future Scheduled 2021-12-20 Hemoglobin A1c [facility] Test 12:58:23 measurement (procedure) of M edicine [code = 76310578] Future Scheduled 2021-12-20 FALL SCREEN [code = [facility] Test 12:58:23 FALL SCREEN] of Medicine Future Scheduled 2021-12-10 Screening for malignant [facility] Test 10:45:05 neoplasm of colon of Medicin e (procedure) [code = 297463528] Future Scheduled 2021-12-10 COVID-19 Vaccine (1) [facility] Test 10:45:05 [code = COVID-19 of Medicine Vaccine (1)] Future Scheduled 2021-12-10 TETANUS SHOT (ADULT) [facility] Test 10:45:05 [code = TETANUS SHOT of Medi cine (ADULT)] Future Scheduled 2021-12-10 Diabetic foot [facility] Test 10:45:05 examination of Medicine (regime/therapy) [code = 748976648] Future Scheduled 2021-12-10 ANNUAL DIABETIC [facility] Test 10:45:05 RETINOPATHY SCREENING of Med icine [code = ANNUAL DIABETIC RETINOPATHY SCREENING] Future Scheduled 2021-12-10 Hepatitis C screening [facility] Test 10:45:05 (procedure) [code = of Medic ine 715592420] Future Scheduled 2021-12-10 ZOSTER VACCINE (1 of 2) [facility] Test 10:45:05 [code = ZOSTER VACCINE of Me dicine (1 of 2)] Future Scheduled 2021-12-10 Abdominal aortic [facility] Test 10:45:05 aneurysm screening of Medici ne (procedure) [code = 643340093] Future Scheduled 2021-12-10 Pneumococcal 65+ (1 of B [facility] [employer] Test 10:45:05 1 - PPSV23) [code = of Medic ine Pneumococcal 65+ (1 of 1 - PPSV23)] Future Scheduled 2021-12-10 BMI FOLLOW UP PLAN [facility] [place] Test 10:45:05 [code = BMI FOLLOW UP of Med icine PLAN] Future Scheduled 2021-12-10 Hemoglobin A1c [facility] Test 10:45:05 measurement (procedure) of M edicine [code = 30260814] Future Scheduled 2021-12-10 FALL SCREEN [code = [employer] Test 10:45:05 FALL SCREEN] of Medicine Future Scheduled 2021-12-10 US 1 Occurrences [facility] Test 09:52:35 AORTA,IVC,ILIACS,GRAFT starting of dicine COMPLETE DUPLEX [code = 12/10/2021 until 54303-2] 12/10/2022 Future Scheduled 2021-11-17 Screening for malignant [facility] [employer] Test 14:44:57 neoplasm of colon of Medicin e (procedure) [code = 948091005] Future Scheduled 2021-11-17 Pneumococcal 65+ (1 of [facility] [employer] Test 14:44:57 2 - PPSV23) [code = of Medic ine Pneumococcal 65+ (1 of 2 - PPSV23)] Future Scheduled 2021-11-17 COVID-19 Vaccine (1) [facility] [employer] Test 14:44:57 [code = COVID-19 of Medicine Vaccine (1)] Future Scheduled 2021-11-17 TETANUS SHOT (ADULT) [employer] Test 14:44:57 [code = TETANUS SHOT of Medi cine (ADULT)] Future Scheduled 2021-11-17 Hepatitis C screening [facility] Test 14:44:57 (procedure) [code = of Medic ine 953391762] Future Scheduled 2021-11-17 ZOSTER VACCINE (1 of 2) [facility] [employer] Test 14:44:57 [code = ZOSTER VACCINE of Me dicine (1 of 2)] Future Scheduled 2021-11-17 MEDICARE IPPE (WELCOME B [facility] [employer] Test 14:44:57 TO MEDICARE) [code = of Medi cine MEDICARE IPPE (WELCOME TO MEDICARE)] Future Scheduled 2021-11-17 Abdominal aortic [facility] [employer] Test 14:44:57 aneurysm screening of Medici ne (procedure) [code = 146332565] Future Scheduled 2021-11-17 BMI FOLLOW UP PLAN [employer] Test 14:44:57 [code = BMI FOLLOW UP of Med icine PLAN] Future Scheduled 2021-11-17 FALL SCREEN [code = [employer] Test 14:44:57 FALL SCREEN] of Medicine Future Scheduled 2021-11-12 CBC W/AUTO DIFF WITH Ordered: [employer] [facility] [employer] Test 17:03:41 PLATELETS [code = 11/12/2021 of Medicin e 35009-1] Future Scheduled 2021-11-12 COMPREHENSIVE METABOLIC Ordered: [facility] [employer] Test 17:03:41 PANEL [code = 33102-5] 11/12/2021 of Me dicine Future Scheduled 2021-11-12 HEMOGLOBIN A1C [code = Ordered: [employer] Test 17:03:41 4548-4] 11/12/2021 of Medicine Future Scheduled 2021-11-12 LIPID PANEL [code = Ordered: [employer] [facility] 17:03:41 97483-0] 11/12/2021 of Medicine Future Scheduled 2021-11-12 TSH + FREE T4 PROFILE Ordered: [employer] Test 17:03:41 [code = NOCPT] 11/12/2021 of Medicine Future Scheduled 2021-11-12 PSA [code = 2857-1] Ordered: [employer] Test 17:03:41 11/12/2021 of Medicine Future Scheduled 2021-11-12 Screening for malignant [facility] [employer] Test 16:55:06 neoplasm of colon of Medicin e (procedure) [code = 876053204] Future Scheduled 2021-11-12 Pneumococcal 65+ (1 of B [facility] [employer] Test 16:55:06 2 - PPSV23) [code = of Medic ine Pneumococcal 65+ (1 of 2 - PPSV23)] Future Scheduled 2021-11-12 COVID-19 Vaccine (1) [facility] [employer] Test 16:55:06 [code = COVID-19 of Medicine Vaccine (1)] Future Scheduled 2021-11-12 TETANUS SHOT (ADULT) [facility] [employer] Test 16:55:06 [code = TETANUS SHOT of Medi cine (ADULT)] Future Scheduled 2021-11-12 Hepatitis C screening [employer] [facility] 16:55:06 (procedure) [code = of Medic ine 033039823] Future Scheduled 2021-11-12 ZOSTER VACCINE (1 of 2) [facility] [employer] Test 16:55:06 [code = ZOSTER VACCINE of Me dicine (1 of 2)] Future Scheduled 2021-11-12 MEDICARE IPPE (WELCOME [facility] [employer] Test 16:55:06 TO MEDICARE) [code = of Medi cine MEDICARE IPPE (WELCOME TO MEDICARE)] Future Scheduled 2021-11-12 Abdominal aortic [facility] [employer] Test 16:55:06 aneurysm screening of Medici ne (procedure) [code = 524220024] Future Scheduled 2021-11-12 BMI FOLLOW UP PLAN [employer] Test 16:55:06 [code = BMI FOLLOW UP of Med icine PLAN] Future Scheduled 2021-11-12 FALL SCREEN [code = [employer] Test 16:55:06 FALL SCREEN] of Medicine Diagnostic Test 2021-11-12 MAMMO DIAGNOSTIC BILAT Expected: [employer] Pending 00:00:00 (US/BIOP IF NEEDED) 11/12/2021, of Medic ine [code = 38931-3] Expires: 05/12/2023 Future Scheduled 2021-10-04 Screening for malignant [facility] [employer] Test 14:20:03 neoplasm of colon of Medicin e (procedure) [code = 815002342] Future Scheduled 2021-10-04 Pneumococcal 65+ (1 of [employer] Test 14:20:03 2 - PPSV23) [code = of Medic ine Pneumococcal 65+ (1 of 2 - PPSV23)] Future Scheduled 2021-10-04 COVID-19 Vaccine (1) [employer] Test 14:20:03 [code = COVID-19 of Medicine Vaccine (1)] Future Scheduled 2021-10-04 TETANUS SHOT (ADULT) [employer] Test 14:20:03 [code = TETANUS SHOT of Medi cine (ADULT)] Future Scheduled 2021-10-04 Hepatitis C screening [employer] [facility] 14:20:03 (procedure) [code = of Medic ine 314565902] Future Scheduled 2021-10-04 ZOSTER VACCINE (1 of 2) [facility] [employer] Test 14:20:03 [code = ZOSTER VACCINE of Nm dicine (1 of 2)] Future Scheduled 2021-10-04 MEDICARE IPPE (WELCOME [employer] 14:20:03 TO MEDICARE) [code = of Medi cine MEDICARE IPPE (WELCOME TO MEDICARE)] Future Scheduled 2021-10-04 Abdominal aortic [facility] [employer] Test 14:20:03 aneurysm screening of Medici ne (procedure) [code = 754654802] Future Scheduled 2021-10-04 BMI FOLLOW UP PLAN [employer] Test 14:20:03 [code = BMI FOLLOW UP of Med icine PLAN] Future Scheduled 2021-10-04 FALL SCREEN [code = [employer] Test 14:20:03 FALL SCREEN] of Medicine Future Scheduled 2021-09-22 Screening for malignant [employer] Test 16:06:05 neoplasm of colon of Medicin e (procedure) [code = 597052794] Future Scheduled 2021-09-22 Pneumococcal 65+ (1 of [employer] Test 16:06:05 2 - PPSV23) [code = of Medic ine Pneumococcal 65+ (1 of 2 - PPSV23)] Future Scheduled 2021-09-22 COVID-19 Vaccine (1) [employer] Test 16:06:05 [code = COVID-19 of Medicine Vaccine (1)] Future Scheduled 2021-09-22 TETANUS SHOT (ADULT) [employer] Test 16:06:05 [code = TETANUS SHOT of Medi cine (ADULT)] Future Scheduled 2021-09-22 Hepatitis C screening [employer] [facility] 16:06:05 (procedure) [code = of Medic ine 242157527] Future Scheduled 2021-09-22 ZOSTER VACCINE (1 of 2) [facility] [employer] Test 16:06:05 [code = ZOSTER VACCINE of Nm dicine (1 of 2)] Future Scheduled 2021-09-22 MEDICARE IPPE (WELCOME B [facility] [employer] Test 16:06:05 TO MEDICARE) [code = of Medi cine MEDICARE IPPE (WELCOME TO MEDICARE)] Future Scheduled 2021-09-22 Abdominal aortic [facility] [employer] Test 16:06:05 aneurysm screening of Medici ne (procedure) [code = 710355876] Future Scheduled 2021-09-22 FALL SCREEN [code = [employer] 16:06:05 FALL SCREEN] of Medicine Future Scheduled 2021-09-22 BMI FOLLOW UP PLAN [employer] [facility] 16:06:05 [code = BMI FOLLOW UP of Med icine PLAN] Future Scheduled 2021-09-05 Screening for malignant [facility] [employer] Test 08:36:55 neoplasm of colon of Medicin e (procedure) [code = 246637009] Future Scheduled 2021-09-05 COVID-19 Vaccine (1) [employer] Test 08:36:55 [code = COVID-19 of Medicine Vaccine (1)] Future Scheduled 2021-09-05 TETANUS SHOT (ADULT) [employer] Test 08:36:55 [code = TETANUS SHOT of Medi cine (ADULT)] Future Scheduled 2021-09-05 Hepatitis C screening [employer] [facility] 08:36:55 (procedure) [code = of Medic ine 051793982] Future Scheduled 2021-09-05 ZOSTER VACCINE (1 of 2) [facility] [employer] Test 08:36:55 [code = ZOSTER VACCINE of Me dicine (1 of 2)] Future Scheduled 2021-09-05 MEDICARE IPPE (WELCOME [facility] [employer] Test 08:36:55 TO MEDICARE) [code = of Medi cine MEDICARE IPPE (WELCOME TO MEDICARE)] Future Scheduled 2021-09-05 Abdominal aortic [facility] [employer] Test 08:36:55 aneurysm screening of Medici ne (procedure) [code = 972387097] Future Scheduled 2021-09-05 FALL SCREEN [code = [employer] 08:36:55 FALL SCREEN] of Medicine Future Scheduled 2021-09-05 PNEUMOVAX >=65 (PPSV23) [facility] [employer] Test 08:36:55 [code = PNEUMOVAX >=65 of Me dicine (PPSV23)] Future Scheduled 2021-09-05 BMI FOLLOW UP PLAN [facility] [employer] Test 08:36:55 [code = BMI FOLLOW UP of Med icine PLAN] Future Scheduled 2021-08-31 Screening for malignant [facility] [employer] Test 11:55:05 neoplasm of colon of Medicin e (procedure) [code = 263536187] Future Scheduled 2021-08-31 COVID-19 Vaccine (1) [facility] [employer] Test 11:55:05 [code = COVID-19 of Medicine Vaccine (1)] Future Scheduled 2021-08-31 TETANUS SHOT (ADULT) [employer] Test 11:55:05 [code = TETANUS SHOT of Medi cine (ADULT)] Future Scheduled 2021-08-31 Hepatitis C screening [employer] [facility] 11:55:05 (procedure) [code = of Medic ine 998887788] Future Scheduled 2021-08-31 ZOSTER VACCINE (1 of 2) [facility] [employer] Test 11:55:05 [code = ZOSTER VACCINE of Me dicine (1 of 2)] Future Scheduled 2021-08-31 MEDICARE IPPE (WELCOME [facility] [employer] Test 11:55:05 TO MEDICARE) [code = of Medi cine MEDICARE IPPE (WELCOME TO MEDICARE)] Future Scheduled 2021-08-31 Abdominal aortic [facility] [employer] Test 11:55:05 aneurysm screening of Medici ne (procedure) [code = 520436976] Future Scheduled 2021-08-31 FALL SCREEN [code = [facility] [place] Test 11:55:05 FALL SCREEN] of Medicine Future Scheduled 2021-08-31 PNEUMOVAX >=65 (PPSV23) [facility] Test 11:55:05 [code = PNEUMOVAX >=65 of Me dicine (PPSV23)] Future Scheduled 2021-08-31 BMI FOLLOW UP PLAN [facility] [place] Test 11:55:05 [code = BMI FOLLOW UP of Med icine PLAN] Diagnostic Test 2021-08-31 MYOCARD PERFUSION - Expected: [facility] [employer] Pending 00:00:00 EXERCISE [code = 93171] 08/31/2021, of M edicine Expires: 03/01/2023 Future Scheduled 2021-08-30 US SCROTUM AND [facility] [employer] Test 11:22:02 TESTICLES [code = of Medicin e 21921-8] Future Scheduled 2021-08-18 US SCROTUM AND 1 Occurrences [facility] [employer] Test 15:55:28 TESTICLES [code = starting of Medicin e 36870-0] 08/18/2021 until 02/16/2022 Future Scheduled 2021-06-30 Screening for malignant [facility] Test 09:30:09 neoplasm of colon of Medicin e (procedure) [code = 628590477] Future Scheduled 2021-06-30 COVID-19 Vaccine (1) [facility] Test 09:30:09 [code = COVID-19 of Medicine Vaccine (1)] Future Scheduled 2021-06-30 TETANUS SHOT (ADULT) [facility] Test 09:30:09 [code = TETANUS SHOT of Medi cine (ADULT)] Future Scheduled 2021-06-30 Hepatitis C screening [facility] Test 09:30:09 (procedure) [code = of Medic ine 247019598] Future Scheduled 2021-06-30 Human immunodeficiency B [facility] Test 09:30:09 virus screening of Medicine (procedure) [code = 816465506] Future Scheduled 2021-06-30 ZOSTER VACCINE (1 of 2) [facility] Test 09:30:09 [code = ZOSTER VACCINE of Me dicine (1 of 2)] Future Scheduled 2021-06-30 FLU VACCINE > 6 MONTHS [employer] Test 09:30:09 [code = FLU VACCINE > 6 of M edicine MONTHS] Future Scheduled 2021-06-30 BMI FOLLOW UP PLAN [employer] Test 09:30:09 [code = BMI FOLLOW UP of Med icine PLAN] Future Scheduled 2021-06-25 Screening for malignant [facility] [employer] Test 17:28:09 neoplasm of colon of Medicin e (procedure) [code = 958559855] Future Scheduled 2021-06-25 COVID-19 Vaccine (1) [employer] Test 17:28:09 [code = COVID-19 of Medicine Vaccine (1)] Future Scheduled 2021-06-25 TETANUS SHOT (ADULT) [employer] Test 17:28:09 [code = TETANUS SHOT of Medi cine (ADULT)] Future Scheduled 2021-06-25 Hepatitis C screening [employer] [facility] 17:28:09 (procedure) [code = of Medic ine 104178768] Future Scheduled 2021-06-25 Human immunodeficiency [employer] Test 17:28:09 virus screening of Medicine (procedure) [code = 037083087] Future Scheduled 2021-06-25 ZOSTER VACCINE (1 of [...] Med icine PLAN] Future Scheduled 2021-06-24 ELECTROCARDIOGRAM [employer] Test 14:56:41 COMPLETE [code = 19347] of M edicine Future Scheduled 2021-06-01 Screening for malignant [facility] [employer] Test 17:46:52 neoplasm of colon of Medicin e (procedure) [code = 501567949] Future Scheduled 2021-06-01 COVID-19 Vaccine (1) [employer] Test 17:46:52 [code = COVID-19 of Medicine Vaccine (1)] Future Scheduled 2021-06-01 TETANUS SHOT (ADULT) [employer] Test 17:46:52 [code = TETANUS SHOT of Medi cine (ADULT)] Future Scheduled 2021-06-01 Hepatitis C screening [employer] [facility] 17:46:52 (procedure) [code = of Medic ine 048370078] Future Scheduled 2021-06-01 Human immunodeficiency B [facility] Test 17:46:52 virus screening of Medicine (procedure) [code = 519424813] Future Scheduled 2021-06-01 ZOSTER VACCINE (1 of 2) [facility] Test 17:46:52 [code = ZOSTER VACCINE of Me dicine (1 of 2)] Future Scheduled 2021-06-01 FLU VACCINE > 6 MONTHS B [facility] Test 17:46:52 [code = FLU VACCINE > 6 of M edicine MONTHS] Future Scheduled 2021-06-01 BMI FOLLOW UP PLAN [facility] Test 17:46:52 [code = BMI FOLLOW UP of Med icine PLAN] Future Scheduled 2021-05-05 Screening for malignant [facility] Test 18:10:22 neoplasm of colon of Medicin e (procedure) [code = 645748644] Future Scheduled 2021-05-05 COVID-19 Vaccine (1) [facility] Test 18:10:22 [code = COVID-19 of Medicine Vaccine (1)] Future Scheduled 2021-05-05 TETANUS SHOT (ADULT) [facility] Test 18:10:22 [code = TETANUS SHOT of Medi cine (ADULT)] Future Scheduled 2021-05-05 Hepatitis C screening [facility] Test 18:10:22 (procedure) [code = of Medic ine 525049190] Future Scheduled 2021-05-05 Human immunodeficiency B [facility] Test 18:10:22 virus screening of Medicine (procedure) [code = 087998532] Future Scheduled 2021-05-05 ZOSTER VACCINE (1 of 2) [facility] Test 18:10:22 [code = ZOSTER VACCINE of Me dicine (1 of 2)] Future Scheduled 2021-05-05 FLU VACCINE > 6 MONTHS B [facility] Test 18:10:22 [code = FLU VACCINE > 6 of M edicine MONTHS] Future Scheduled 2021-05-05 BMI FOLLOW UP PLAN [facility] Test 18:10:22 [code = BMI FOLLOW UP of Med icine PLAN] Future Scheduled 2021-04-08 CULTURE, Ordered: [facility] [employer] [employer] Test 13:52:19 URINE/SENSITIVITY ON 04/08/2021 of Medi cine ALL [code = 79808-6] Future Scheduled 2021-04-08 US SCROTUM AND 1 Occurrences [facility] [employer] Test 13:52:19 TESTICLES [code = starting of Medicin e 45201-9] 04/08/2021 until 10/08/2021 Future Scheduled 2021-04-08 Screening for malignant [facility] Test 13:41:00 neoplasm of colon of Medicin e (procedure) [code = 186837564] Future Scheduled 2021-04-08 COVID-19 Vaccine (1) [facility] [employer] Test 13:41:00 [code = COVID-19 of Medicine Vaccine (1)] Future Scheduled 2021-04-08 TETANUS SHOT (ADULT) [employer] Test 13:41:00 [code = TETANUS SHOT of Medi cine (ADULT)] Future Scheduled 2021-04-08 Hepatitis C screening [facility] [place] Test 13:41:00 (procedure) [code = of Medic ine 523319006] Future Scheduled 2021-04-08 Human immunodeficiency B [facility] [employer] Test 13:41:00 virus screening of Medicine (procedure) [code = 235648650] Future Scheduled 2021-04-08 ZOSTER VACCINE (1 of 2) [facility] Test 13:41:00 [code = ZOSTER VACCINE of Me dicine (1 of 2)] Future Scheduled 2021-04-08 FLU VACCINE > 6 MONTHS B [facility] [employer] Test 13:41:00 [code = FLU VACCINE > 6 of M edicine MONTHS] Future Scheduled 2021-04-08 BMI FOLLOW UP PLAN [facility] [place] Test 13:41:00 [code = BMI FOLLOW UP of Med icine PLAN] Diagnostic Test 2021-02-16 ECHO, COMPLETE [code = Expected: [facility] [employer] Pending 00:00:00 36787] 02/16/2021, of Medicine Expires: 08/18/2021 Future Scheduled COLON CANCER SCREENING: [facility] Test COLONOSCOPY [code = of Medic ine COLON CANCER SCREENING: COLONOSCOPY] Future Scheduled TETANUS SHOT (ADULT) [employer] Test [code = TETANUS SHOT of Medi cine (ADULT)] Future Scheduled BMI FOLLOW UP PLAN [facility] [employer] Test [code = BMI FOLLOW UP of Med icine PLAN] Future Scheduled HEPATITIS C SCREENING [employer] [facility] [code = HEPATITIS C of Medic ine SCREENING] Future Scheduled HIV SCREENING [code = [employer] HIV SCREENING] of Medicine Future Scheduled COLON CANCER SCREENING: [employer] Test COLONOSCOPY [code = of Medic ine COLON CANCER SCREENING: COLONOSCOPY] Future Scheduled TETANUS SHOT (ADULT) [employer] Test [code = TETANUS SHOT [...] edicine MONTHS] Future Scheduled COLON CANCER SCREENING: [facility] Test COLONOSCOPY [code = of Medic ine COLON CANCER SCREENING: COLONOSCOPY] Future Scheduled TETANUS SHOT (ADULT) [employer] Test [code = TETANUS SHOT [...] of 2)] Future Scheduled COLON CANCER SCREENING: [facility] Test COLONOSCOPY [code = of Medic ine COLON CANCER SCREENING: COLONOSCOPY] Future Scheduled TETANUS SHOT (ADULT) [employer] Test [code = TETANUS SHOT [...] of 2)] Future Scheduled COLON CANCER SCREENING: [facility] Test COLONOSCOPY [code = of Medic ine COLON CANCER SCREENING: COLONOSCOPY] Future Scheduled COVID-19 Vaccine [facility] [employer] Test Evaluation [code = of Medici ne COVID-19 Vaccine Evaluation] Future Scheduled TETANUS SHOT (ADULT) [employer] Test [code = TETANUS SHOT [...] Vaccine Evaluation] Future Scheduled TETANUS SHOT (ADULT) [employer] Test [code = TETANUS SHOT [...] colon of Medicin e (procedure) [code = 939696605] Future Scheduled TETANUS SHOT (ADULT) [employer] Test [code = TETANUS SHOT of Medi cine (ADULT)] Future Scheduled COVID-19 Vaccine (1) [employer] Test [code = COVID-19 of Medicine Vaccine (1)] Future Scheduled Hepatitis C screening [employer] [facility] (procedure) [code = of Medic ine 756038090] Future Scheduled Human immunodeficiency [facility] Test virus screening of Medicine (procedure) [code = 508551810] Future Scheduled ZOSTER VACCINE (1 of 2) [facility] [employer] Test [code = ZOSTER VACCINE of Me dicine (1 of 2)] Future Scheduled BMI FOLLOW UP PLAN [employer] Test [code = BMI FOLLOW UP of Med icine PLAN] Future Scheduled ELECTROCARDIOGRAM [employer] Test COMPLETE [code = 23767] of M edicine Future Scheduled Screening for malignant [facility] [employer] Test neoplasm of colon of Medicin e (procedure) [code = 410219783] Future Scheduled TETANUS SHOT (ADULT) [employer] Test [code = TETANUS SHOT of Medi cine (ADULT)] Future Scheduled COVID-19 Vaccine (1) [employer] Test [code = COVID-19 of Medicine Vaccine (1)] Future Scheduled Hepatitis C screening [employer] [facility] (procedure) [code = of Medic ine 997712930] Future Scheduled Human immunodeficiency [employer] virus screening of Medicine (procedure) [code = 526952997] Future Scheduled ZOSTER VACCINE (1 of 2) [...] icine PLAN] Future Scheduled Screening for malignant [facility] Test neoplasm of colon of Medicin e (procedure) [code = 366449401] Future Scheduled TETANUS SHOT (ADULT) [employer] Test [code = TETANUS SHOT of Medi cine (ADULT)] Future Scheduled COVID-19 Vaccine (1) [employer] Test [code = COVID-19 of Medicine Vaccine (1)] Future Scheduled Hepatitis C screening [employer] (procedure) [code = of Medic ine 215515013] Future Scheduled Human immunodeficiency [facility] Test virus screening of Medicine (procedure) [code = 338588271] Future Scheduled ZOSTER VACCINE (1 of 2) [...] icine PLAN] Future Scheduled TETANUS SHOT (ADULT) [employer] Test [code = TETANUS SHOT [...] edicine MONTHS] Future Scheduled COLON CANCER SCREENING: [facility] Test COLONOSCOPY [code = of Medic ine COLON CANCER SCREENING: COLONOSCOPY] Future Scheduled CTA CORONARY W/CALCIUM 1 Occurrences [facility] Test SCORING W/CONTRAST starting of Medici ne [code = 27020] 02/16/2021 until 02/16/2022 Future Scheduled US 1 Occurrences [facility] [employer] Test AORTA,IVC,ILIACS,GRAFT starting of Me dicine COMPLETE DUPLEX [code = 01/25/2021 until 50669-9] 01/25/2022 Future Scheduled US CAROTID [code = 1 Occurrences [employer] 75349] starting of Medicine 01/25/2021 until 01/25/2022 Future Scheduled US ARTERIAL LEG LEFT 1 Occurrences [employer] Test [code = 42584] starting of Medicine 12/07/2020 until 07/07/2021 Future Scheduled CTA ABD AORTA AND 1 Occurrences [employer] Test ILIOFEMORAL RUNOFF starting of Medici ne [code = 77546] 12/07/2020 until 07/07/2021 Future Scheduled TREADMILL, NO IMAGING 1 Occurrences [employer] Test [code = 49692] starting of Medicine 04/23/2020 until 04/23/2021 Future Scheduled NOVEL 2019 1 Occurrences [facility] [employer] Test CORONAVIRUS(COVID-19),N starting of M edicine AA [code = U0004] 04/23/2020 until 10/23/2020 Encounters Start End Encounter Admission Attending Care Care Encounter Source Date/Time Date/Time Type Type Clinicians Facility Department ID 2022-03-24 Outpatient [place], [facility] [id number] Common 13:04:00 Edilson [facility] 2022-03-01 Outpatient Pickett, [facility] [id number] Common 10:33:01 Edilson [facility] 2022-01-17 Outpatient [place]ett, [facility] [id number] Common 13:26:00 Edilson [facility] 2021-12-24 Outpatient Pickett, [facility] [id number] Common 12:30:01 Edilson [facility] 2021-12-01 Outpatient Pickett, [facility] [id number] Common 14:39:55 Edilson [facility] 2021-12-01 Outpatient [place], [facility] [id number] Common 14:24:19 Edilson 81486 [facility] 2021-12-01 Outpatient [place], [facility] [id number] Common 14:03:48 Rj [id number] [facility] 2021-12-01 Outpatient [place], [facility] [id number] Common 13:53:57 Rj [id number] [facility] 2021-12-01 Outpatient [place], [facility] [id number] Common 13:42:50 Rj [id number] [facility] 2021-12-01 Outpatient [place], [facility] [id number] Common 11:04:27 Rj [id number] [facility] 2021-08-15 Inpatient YUMIKO, [facility] [id number] [facility] 03:03:46 COURTNEY 2021-08-14 Outpatient ALAM, [facility] [id number] [facility] 23:18:50 ELAINEBOOB 2021-08-14 Outpatient DE LA CRUZ, [facility] [id number] [facility] 04:42:31 MARIUSZ 2022-05-17 2022-05-17 Office Peet Nicole [id number] [facility] 10:30:00 10:50:00 Visit AMBULATOR 350.1.13.21 College Y 0.2.7.2.686 of [id number] Medi aleksandra 800 e 2022-05-17 2022-05-17 Office JOSIANE Monroy [id number] [facility] 09:40:00 10:00:00 Visit Mohan AMBULATOR 350.1.13.21 College Y 0.2.7.2.686 of [id number] Medi aleksandra 375 e 2022-05-16 2022-05-16 ambulatory [facility] [id number] Common 00:00:00 00:00:00 [facility] 2022-05-06 2022-05-06 Office PETE NICOLE 1.2.840.114 [id number] [facility] 10:01:27 14:39:20 Visit AMBULATOR 350.1.13.21 College Y 0.2.7.2.686 of [id number] Medi aleksandra 800 e 2022-05-04 2022-05-04 Office PILI HAWKM [id number] [facility] 14:49:07 15:38:13 Visit ARLEY WOMACK AMBULATOR 350.1.13.21 College Y 0.2.7.2.686 of [id number] Medi aleksandra 300 e 2022-04-28 2022-04-28 Office Milan CAKILO [id number] [id number] [facility] 08:30:00 08:32:41 Visit [facility] 350.1.13.10 it y of [place] 4.2.7.2.686 Hi as OCTAVIO?BLEA [id number] [address] OFFICE [facility] 2022-04-19 2022-04-19 Outpatient LUCA, [facility] [id number] [place] 00:00:00 00:00:00 KAREN 371 Method i 2022-04-19 2022-04-19 Outpatient LUCA, [facility] [id number] [place] 00:00:00 00:00:00 KAREN 374 [facility] i 2022-04-19 2022-04-19 Outpatient LUCA, [facility] [id number] [place] 00:00:00 00:00:00 KAREN 217 [facility] i 2022-04-19 2022-04-19 Outpatient LUCA, [facility] [id number] [place] 00:00:00 00:00:00 KAREN 325 Method i 2022-04-19 2022-04-19 Outpatient LUCA, [facility] [id number] [place] 00:00:00 00:00:00 KAREN [address] 2022-04-15 2022-04-15 ambulatory [facility] [id number] [facility] 00:00:00 00:00:00 [facility] 2022-04-12 2022-04-12 Office PETE NICOLE 1.2.840.114 [id number] [facility] 13:59:16 15:48:48 Visit AMBULATOR 350.1.13.21 College Y 0.2.7.2.686 of [id number] Medi aleksandra 800 e 2022-03-29 2022-03-29 Office Pete Nicole 1.2.840.114 [id number] [facility] 15:00:00 15:40:00 Visit AMBULATOR 350.1.13.21 College Y 0.2.7.2.686 of [id number] [facility] 800 e 2022-03-25 2022-03-25 ambulatory [facility] [id number] Common 00:00:00 00:00:00 [facility] 2022-03-24 2022-03-24 ambulatory [facility] [id number] Common 00:00:00 00:00:00 [facility] 2022-03-18 2022-03-18 Office JOSIANE TINAJERO 1.2.840.114 [id number] [facility] 09:50:45 11:50:51 Visit RAMYAR AMBULATOR 350.1.13.21 College Y 0.2.7.2.686 of [id number] [facility] 825 e 2022-03-16 2022-03-16 Office JOSIANE SIMMONS 1.2.840.114 [id number] [facility] 14:27:41 14:27:41 Visit CHUCKIE AMBULATOR 350.1.13.21 College Y 0.2.7.2.686 of [id number] [facility] 300 e 2022-03-02 2022-03-02 ambulatory STLMLC STLMLC [id number] Common 00:00:00 00:00:00 [facility] 2022-03-02 2022-03-02 ambulatory STLMLC STLMLC [id number] Common 00:00:00 00:00:00 [facility] 2022-02-23 2022-02-23 ambulatory STLMLC STLMLC [id number] Common 00:00:00 00:00:00 [facility] 2022-02-14 2022-02-14 Office JOSIANE Alston 1.2.840.114 [id number] [facility] 11:00:00 14:24:56 Visit Jose Raul A AMBULATOR 350.1.13.21 College Y 0.2.7.2.686 of [id number] [facility] 825 e 2022-02-10 2022-02-10 Office JOSIANE Monroy 1.2.840.114 [id number] [facility] 15:40:00 16:13:18 Visit Mohan AMBULATOR 350.1.13.21 College Y 0.2.7.2.686 of [id number] Medi aleksandra 375 e 2022-02-01 2022-02-01 Outpatient BCM [facility] [id number] [facility] 12:42:59 16:31:50 [facility] 2022-01-20 2022-01-20 Outpatient BCM [facility] [id number] [facility] 10:42:13 13:17:54 [facility] 2022-01-20 2022-01-20 Outpatient BCM [facility] [id number] [facility] 10:43:15 10:43:15 [facility] 2022-01-18 2022-01-18 Outpatient BCM [facility] [id number] [facility] 10:51:05 11:54:20 [facility] 2022-01-17 2022-01-17 ambulatory STLMLC STLMLC [id number] Common 00:00:00 00:00:00 [facility] 2022-01-14 2022-01-14 ambulatory STLMLC STLMLC [id number] Common 00:00:00 00:00:00 [facility] 2022-01-13 2022-01-13 ambulatory STLMLC STLMLC [id number] Common 00:00:00 00:00:00 [facility] 2021-12-20 2021-12-20 Office JOSIANE Perera 1.2.273.403 [id number] [facility] 13:00:00 14:00:00 Visit Erlinda A AMBULATOR 350.1.13.21 College Y 0.2.7.2.686 of [id number] Medi aleksandra 800 e 2021-12-10 2021-12-10 Outpatient [facility] [id number] [facility] 08:00:12 10:11:56 [facility] 2021-12-10 2021-12-10 Office JOSIANE Tinajero 1.2.840.114 [id number] [facility] 09:30:00 10:05:44 Visit Ramyar AMBULATOR 350.1.13.21 College Y 0.2.7.2.686 of [id number] [facility] aleksandra 825 e 2021-12-08 2021-12-08 ambulatory STLMLC STLMLC [id number] Common 00:00:00 00:00:00 [facility] 2021-12-02 2021-12-02 ambulatory STLMLC STLMLC [id number] Common 00:00:00 00:00:00 [facility] 2021-12-02 2021-12-02 ambulatory STLMLC STLMLC [id number] Common 00:00:00 00:00:00 [facility] 2021-11-19 2021-11-19 ambulatory STLMLC STLMLC [id number] Common 00:00:00 00:00:00 [facility] 2021-11-17 2021-11-17 Office JOSIANE MONROY 1.2.840.114 [id number] [facility] 13:03:04 14:55:25 Visit MOHAN AMBULATOR 350.1.13.21 College Y 0.2.7.2.686 of [id number] [facility] aleksandra 375 e 2021-11-12 2021-11-12 Office JOSIANE Alejandre 1.2.840.114 [id number] [facility] 16:30:00 17:17:27 Visit Arley AMBULATOR 350.1.13.21 College Y 0.2.7.2.686 of [id number] [facility] aleksandra 300 e 2021-11-11 2021-11-11 ambulatory STLMLC STLMLC [id number] Common 00:00:00 00:00:00 [facility] 2021-11-09 2021-11-09 ambulatory STLMLC STLMLC [id number] Common 00:00:00 00:00:00 [facility] 2021-11-02 2021-11-02 ambulatory STLMLC STLMLC [id number] Common 00:00:00 00:00:00 [facility] 2021-10-20 2021-10-20 ambulatory STLMLC STLMLC [id number] Common 00:00:00 00:00:00 [facility] 2021-10-19 2021-10-19 [facility] [id number] [facility] 11:01:06 12:52:47 David 2021-10-14 2021-10-14 ambulatory STLMLC STLMLC [id number] Common 00:00:00 00:00:00 [facility] 2021-10-13 2021-10-13 ambulatory STLMLC STLMLC [id number] Common 00:00:00 00:00:00 [facility] 2021-10-12 2021-10-12 ambulatory STLMLC STLMLC [id number] Common 00:00:00 00:00:00 [facility] 2021-10-12 2021-10-12 ambulatory STLMLC STLMLC [id number] Common 00:00:00 00:00:00 [facility] 2021-10-12 2021-10-12 ambulatory STLMLC STLMLC [id number] Common 00:00:00 00:00:00 [facility] 2021-10-04 2021-10-04 ambulatory STLMLC STLMLC [id number] Common 00:00:00 00:00:00 [facility] 2021-09-27 2021-09-27 Office Wesly, BC 1.2.840.114 [id number] [facility] 14:15:00 16:03:36 Visit Mariusz AMBULATOR 350.1.13.21 College Gonzalo Y 0.2.7.2.686 of [id number] [facility] aleksandra 825 e 2021-09-27 2021-09-27 ambulatory STLMLC STLMLC [id number] Common 00:00:00 00:00:00 [facility] 2021-09-22 2021-09-22 Office CARINE Simmons 1.2.840.114 [id number] [facility] 15:30:00 15:45:00 Visit Chuckie AMBULATOR 350.1.13.21 College Y 0.2.7.2.686 of [id number] Medi aleksandra 300 e 2021-09-21 2021-09-21 ambulatory STLMLC STLMLC [id number] Common 00:00:00 00:00:00 [facility] 2021-09-16 2021-09-16 ambulatory STLMLC STLMLC [id number] Common 00:00:00 00:00:00 [facility] 2021-09-16 2021-09-16 ambulatory STLMLC STLMLC [id number] Common 00:00:00 00:00:00 [facility] 2021-09-10 2021-09-10 Outpatient NORA LANDRY, SLE SLEH [id number] SLE 12:59:41 23:59:00 [facility] 2021-08-31 2021-08-31 Office CARINE MONROY 1.2.840.114 [id number] [facility] 10:18:03 12:06:43 Visit MOHAN AMBULATOR 350.1.13.21 College Y 0.2.7.2.686 of [id number] [facility] aleksandra 375 e 2021-08-30 2021-08-30 Outpatient [facility] [id number] [facility] 11:22:02 11:22:02 [facility] [employer] 2021 2021 Outpatient STLMLC STLMLC [id number] Common 00:00:00 00:00:00 [facility] 2021-08-18 2021-08-18 Office CARINE SIMMONS 1.2.840.114 [id number] [facility] 13:58:10 16:01:54 Visit CHUCKIE AMBULATOR 350.1.13.21 College Y 0.2.7.2.686 of [id number] [facility] aleksandra 300 e 2021-08-18 2021-08-18 Outpatient STLMLC STLMLC [id number] Common 00:00:00 00:00:00 [facility] 2021-08-12 2021-08-12 Outpatient STLMLC STLMLC [id number] Common 00:00:00 00:00:00 [facility] 2021-07-27 2021-07-27 [facility] [id number] [facility] 09:13:01 09:53:29 [facility] 2021-07-07 2021-07-07 Outpatient KAMI SCHUMACHER [facility] [id number] [facility] 00:00:00 00:00:00 [place] 2021-07-05 2021-07-05 Outpatient STLMLC STLMLC [id number] Common 00:00:00 00:00:00 [facility] 2021-07-05 2021-07-05 Outpatient STLMLC STLMLC [id number] Common 00:00:00 00:00:00 [facility] 2021-07-05 2021-07-05 Outpatient STLMLC STLMLC [id number] Common 00:00:00 00:00:00 [facility] 2021-06-30 2021-06-30 Office Cindy, [facility] 1.2.840.114 [id number] [facility] 08:49:23 09:04:23 Visit Chuckie AMBULATOR 350.1.13.21 College Y 0.2.7.2.686 of [id number] Medi aleksandra 300 e 2021-06-24 2021-06-24 Office Juma [facility] 1.2.840.114 [id number] [facility] 14:34:41 16:00:10 Visit Mohan AMBULATOR 350.1.13.21 College Y 0.2.7.2.686 of [id number] Medi aleksandra 375 e 2021-06-15 2021-06-15 Outpatient [facility] [id number] [facility] 12:51:35 12:51:35 [facility] [employer] [employer] 2021-06-14 2021-06-14 Outpatient WESLY [facility] [id number] [facility] 07:55:20 13:28:21 MARIUSZ [employer] 2021-06-14 2021-06-14 Outpatient [facility] [id number] [facility] 07:54:56 10:48:49 [facility] [employer] [employer] 2021-06-02 2021-06-02 Outpatient KAMI SCHUMACHER [facility] [id number] SLE 00:00:00 00:00:00 [place] 2021-06-01 2021-06-01 Office Juma JOSIANE 1.2.840.[id number] [place] [address] 14:20:18 15:45:02 Visit Mohan AMBULATOR 350.1.13.21 College Y 0.2.7.2.686 [id number] Medi aleksandra 375 e 2021-05-15 2021-05-15 Outpatient [facility] [id number] [facility] 00:00:00 23:59:00 [facility] [employer] [facility] [employer] 2021-05-13 2021-05-13 Outpatient [facility] [id number] [facility] 07:37:00 23:59:00 [facility] 2021-05-12 2021-05-12 Outpatient EL SLE SLE [id number] SLE 00:00:00 00:00:00 2021-05-11 2021-05-11 Outpatient EL SLE SLE [id number] [facility] 00:00:00 00:00:00 2021-05-04 2021-05-04 Outpatient [facility] [id number] [facility] 00:00:00 23:59:00 [facility] 2021-04-29 2021-04-29 Outpatient [facility] [id number] [facility] 00:00:00 23:59:00 [facility] 2021-04-29 2021-04-29 Outpatient EL [facility] SLE [id number] [facility] 00:00:00 00:00:00 2021-04-27 2021-04-27 [facility] [id number] Common 00:00:00 00:00:00 [facility] 2021-04-08 2021-04-20 Outpatient JOSIANE RUIZ [facility] [id number] [facility] 11:27:25 19:51:25 [facility]IL [facility] [employer] [facility] [employer] 2021-04-20 2021-04-20 [facility] [id number] Common 00:00:00 00:00:00 [facility] 2021-04-14 2021-04-16 Office JOSIANE Simmons 1.2.840.114 [id number] 14:55:42 16:49:34 Visit Chuckie AMBULATOR 350.1.13.21 Y 0.2.7.2.686 [id number] 300 2021-04-14 2021-04-16 Office JOSIANE Simmons 1.2.840.[id number] [place] [address] 14:55:42 16:49:34 Visit Chuckie AMBULATOR 350.1.13.21 College Y 0.2.7.2.686 of [id number] Medi aleksandra 300 e 2021-04-08 2021-04-08 Office JOSIANE Ruiz 1.2.840.114 [id number] 13:31:23 14:01:23 Visit Basil AMBULATOR 350.1.13.21 Y 0.2.7.2.686 [id number] 300 2021-04-08 2021-04-08 Office JOSIANE Ruiz 1.2.840.114 [id number] [facility] 13:31:23 14:01:23 Visit Basil AMBULATOR 350.1.13.21 College Y 0.2.7.2.686 of [id number] Medi aleksandra 300 e 2021-04-08 2021-04-08 Outpatient BCM BCSamir [id number] [facility] 00:00:00 00:00:00 [facility] 2021-03-22 2021-03-22 Outpatient KAMI PALACIOS [facility] [id number] [facility] 00:00:00 00:00:00 [place] 2021-03-16 2021-03-16 Outpatient KAMI PALACIOS [facility] [id number] [facility] 00:00:00 00:00:00 [place] 2021-03-05 2021-03-05 Outpatient BCM JOSIANE [id number] [facility] 08:06:07 13:36:08 [facility] 2021-03-03 2021-03-03 Office JOSIANE Simmons 1.2.840.114 [id number] 12:05:37 12:20:37 Visit Chuckie AMBULATOR 350.1.13.21 Y 0.2.7.2.686 [id number] 300 2021-03-03 2021-03-03 Office JOSIANE Simmons 1.2.840.114 [id number] [facility] 12:05:37 12:20:37 Visit Chuckie AMBULATOR 350.1.13.21 College Y 0.2.7.2.686 of [id number] [facility] aleksandra 300 e 2021-02-18 2021-02-18 Outpatient STLMLC STLMLC [id number] Common 00:00:00 00:00:00 [facility] 2021-02-16 2021-02-16 Office JOSIANE Monroy 1.2.840.114 [id number] 09:21:06 10:13:12 Visit Mohan AMBULATOR 350.1.13.21 Y 0.2.7.2.686 [id number] 375 2021-02-16 2021-02-16 Office JOSIANE Monroy 1.2.840.114 [id number] [facility] 09:21:06 10:13:12 Visit Mohan AMBULATOR 350.1.13.21 College Y 0.2.7.2.686 of [id number] [facility] aleksandra 375 e 2021-01-25 2021-01-25 Office JOSIANE De La Cruz 1.2.840.114 [id number] 11:06:09 12:30:03 Visit Mariusz AMBULATOR 350.1.13.21 Gonzalo Y 0.2.7.2.686 [id number] 825 2021-01-25 2021-01-25 Office JOSIANE De La Cruz 1.2.840.114 [id number] [facility] 11:06:09 12:30:03 Visit Mariusz AMBULATOR 350.1.13.21 College Gonzalo Y 0.2.7.2.686 of [id number] [facility] aleksandra 825 e 2021-01-22 2021-01-22 Outpatient [facility] [id number] [facility] 09:09:43 17:09:11 Jun[facility] Medicin e 2021-01-04 2021-01-04 Outpatient SLE SLE [id number] [facility] 00:00:00 00:00:00 2020-12-07 2020-12-07 Office JOSIANE De La Cruz 1.2.840.114 [id number] [facility] 09:22:17 15:25:48 Visit Mariusz AMBULATOR 350.1.13.21 Gonzalo Y 0.2.7.2.686 [id number] 825 2020-12-07 2020-12-07 Office Wesly, BCM 1.2.840.[id number] [place] [address] 09:22:17 15:25:48 Visit Mariusz AMBULATOR 350.1.13.21 College Gonzalo Y 0.2.7.2.686 of [id number] [facility] 825 e 2020-12-02 2020-12-02 Office Cindy, BCM 1.2.840.114 [id number] 14:28:34 14:43:34 Visit Chuckie AMBULATOR 350.1.13.21 Y 0.2.7.2.686 [id number] 300 2020-12-02 2020-12-02 Office Cindy, CARINEM 1.2.840.114 [id number] [facility] 14:28:34 14:43:34 Visit Chuckie AMBULATOR 350.1.13.21 College Y 0.2.7.2.686 of [id number] [facility] 300 e 2020-11-25 2020-11-25 Outpatient STLC STLC [id number] Common 00:00:00 00:00:00 [facility] 2020-11-16 2020-11-16 [facility] [id number] Common 00:00:00 00:00:00 [facility] 2020-10-12 2020-10-12 Office Christiano, CARINEM 1.2.840.114 [id number] 13:52:12 14:22:12 Visit Khai AMBULATOR 350.1.13.21 Y 0.2.7.2.686 [id number] 800 2020-10-12 2020-10-12 Office Christiano, BCM 1.2.840.114 [id number] [facility] 13:52:12 14:22:12 Visit Khai AMBULATOR 350.1.13.21 College Y 0.2.7.2.686 of [id number] [facility] 800 e 2020-09-08 2020-09-08 Outpatient GOGIA, MHSE MHSE 7500 MH 07:57:00 23:59:00 [place] foote [facility] 2020-08-06 2020-08-06 Office CARINE AlvaradoSamir 1.2.840.114 [id number] 14:02:58 14:46:32 Visit Khai AMBULATOR 350.1.13.21 Y 0.2.7.2.686 [id number] 800 2020-08-06 2020-08-06 Office Christiano CARINESamir 1.2.840.114 [id number] [facility] 14:02:58 14:46:32 Visit Khai AMBULATOR 350.1.13.21 College Y 0.2.7.2.686 of [id number] [facility] 800 e 2020-07-28 2020-07-28 Outpatient STLMLC STLMLC [id number] Common 00:00:00 00:00:00 [facility] 2020-07-16 2020-07-16 [facility] [id number] Common 16:13:00 16:13:00 t [facility] 2020-07-14 2020-07-14 Out[facility] [id number] Common 09:30:00 09:30:00 t [facility] Sp[facility] t [facility] 2020-06-01 2020-06-01 Outpatient [facility] [id number] Common 09:00:00 09:00:00 t [facility] Bone [facility] Spiri t and Joint [facility] 2020-04-23 2020-04-23 Office JOSIANE Monroy 1.2.840.114 [id number] 11:27:32 11:47:32 Visit Mohan AMBULATOR 350.1.13.21 Y 0.2.7.2.686 [id number] 375 2020-04-23 2020-04-23 Office JOSIANE Monroy 1.2.840.[id number] [place] [address] 11:27:32 11:47:32 Visit Mohan AMBULATOR 350.1.13.21 College Y 0.2.7.2.686 of [id number] [facility] aleksandra 375 e 2020-01-22 2020-01-22 Office JOSIANE Steiner 1.2.840.114 [id number] 09:35:07 10:05:07 Visit Kalen AMBULATOR 350.1.13.21 Young Y 0.2.7.2.686 [id number] 800 2020-01-22 2020-01-22 Office JOSIANE Steiner 1.2.840.[id number] [place] [address] 09:35:07 10:05:07 Visit Kalen AMBULATOR 350.1.13.21 College Young Y 0.2.7.2.686 of [id number] [facility] 800 e 2020-01-22 2020-01-22 Outpatient Tila Tadeo [id number] Common 08:07:00 08:07:00 t Bone Bone and Spiri t and Joint [facility] - [facility] 2020-01-08 2020-01-08 Outpatient Tila Tadeo [id number] Common 12:23:00 12:23:00 t Bone Bone and Spiri t and Joint [facility] 2019-12-23 2019-12-23 Outpatient [facility] [id number] Common 08:00:00 08:00:00 t Bone Bone and Spiri t and Joint [facility] - [facility] 2019-10-10 2019-10-10 Out[facility] [id number] Common 09:37:00 09:37:00 t Bone Bone and Spiri t and Joint [facility] - [facility] 2019-10-09 2019-10-09 Outpatient Brazaurora Adornot [id number] Common 15:29:00 15:29:00 t Bone Bone and Spiri t and Joint [facility] - [facility] 2019-09-09 2019-09-09 Outpatient [facility] [id number] Common 16:12:00 16:12:00 t Bone Bone and Spiri t and Joint [facility] - [facility] 2019-09-02 2019-09-02 Outpatient Tila Adornot [id number] Common 12:24:00 12:24:00 t Bone Bone and Spiri t and Joint [facility] - [facility] 2019-08-22 2019-08-22 Outpatient Tila Adornot [id number] Common 09:00:00 09:00:00 t Bone Bone and Spiri t and Joint [facility] - [facility] 2019-08-16 2019-08-16 Office Parag, CARINE 1.2.840.114 [id number] 12:53:30 13:30:16 Visit Ruth AMBULATOR 350.1.13.21 Tangela-Kendall Y 0.2.7.2.686 [id number] 800 2019-08-16 2019-08-16 Office CARINE Tuttle 1.2.840.[id number] [place] [address] 12:53:30 13:30:16 Visit Ruth AMBULATOR 350.1.13.21 [place] Tangela-Kendall Y 0.2.7.2.686 [id number] [facility] 800 e 2019-07-25 2019-07-25 Outpatient [facility] [id number] Common 10:00:00 10:00:00 t Bone Bone and Spiri t and Joint [facility] - [facility] 2019-07-21 2019-07-21 Outpatient Tila Adornot 27 [id number] Common 20:21:00 20:21:00 t Bone Bone and Spiri t and Joint [facility] - [facility] Results Test Description Test Time Test Comments Results Result Comments Source POCT URINALYSIS DIPSTICK 2022-03-16 00:00:00 Test Item Value Reference Range Interpretation Comme nts COLOR UA (test code = 5778-6) Yellow YELLOW/STRAW CLARITY UA (test code = 26496-7) Clear CLEAR GLUCOSE UA (test code = 5792-7) Negative NEGATIVE BILIRUBIN UA (test code = 5770-3) Negative NEGATIVE KETONES UA (test code = 78201-7) Negative NEGATIVE SPECIFIC GRAVITY UA (test code [...] NEGATIVE REDUCING SUBSTANCES URINE (test code = 67349-3) [facility] [id number] 00:00:00 Test Item Value Reference Range Interpretation Comments COLOR UA (test code = 5778-6) Yellow YELLOW/STRAW CLARITY UA (test code = 84227-8) Clear CLEAR GLUCOSE UA (test code = 5792-7) Negative NEGATIVE BILIRUBIN UA (test code = 5770-3) Negative NEGATIVE KETONES UA (test code = 24298-3) Negative NEGATIVE SPECIFIC GRAVITY UA (test code [...] NEGATIVE REDUCING SUBSTANCES URINE (test code = 96720-3) [facility] AAA, W/ DARRIUS.EXT.[id number] 17:50:00 [facility] CENTERName: KERON TELLEZ : 1955 Sex: MAddendum BeginsREPORT STATUS:A I have reviewed the CT images for this study and I concur with the nonvascular imaging findings as dictated. Signed: Irvin Russo MDReport Verified Date/Time: 09/16/2021 17:50:50 Reading Location: [facility] Diagnostic Imaging Reading Room - [facility] 1.310.12Addendum EndsFINAL REPORT CT angiography of [...] the setting of substantial calcification in the [place] vasculature. The 2 stents are widely patent with no in-stent stenosis identified bilaterally. Thereafter, the [place] distal left and right external iliac arteries [...] An addendum will be dictated by the Gas Meter Repairer Radiologist regarding the nonvascular findings. THE REPORT WILL ONLY BE CONSIDERED COMPLETE AFTER THE ADDENDUM HAS BEEN DICTATED. Signed: Placido Hess MDReport Verified Date/Time: 09/11/2021 09:17:52 [id number] 09:51:07 Test Item Value Reference Range Interpretation Comments POC-CREATININE 0.6 mg/dL 0.6-1.3 : TESTED AT [facility] ([facility]) (test [address] [facility] code = 1859) [place], [address]: Telecommunications Administrator/Techni jolanta ID = [id number] for Paul Cannon POC-EGFR (BEAKER) 135 mL/min/1.73M2 (test code = 1860) POCT URINALYSIS [id number] 00:00:00 Test Item Value Reference Range Interpretation Comments COLOR UA (test code = 5778-6) Yellow YELLOW/STRAW CLARITY UA (test code = 07513-1) Clear CLEAR GLUCOSE UA (test code = 5792-7) Negative NEGATIVE BILIRUBIN UA (test code = 5770-3) Negative NEGATIVE KETONES UA (test code = 36375-7) Negative NEGATIVE SPECIFIC GRAVITY UA (test code [...] NEGATIVE REDUCING SUBSTANCES URINE (test code = 48274-6) [facility] [id number] 00:00:00 Test Item Value Reference Range Interpretation Comments COLOR UA (test code = 5778-6) Yellow YELLOW/STRAW CLARITY UA (test code = 57578-5) Clear CLEAR GLUCOSE UA (test code = 5792-7) Negative NEGATIVE BILIRUBIN UA (test code = 5770-3) Negative NEGATIVE KETONES UA (test code = 17727-8) Negative NEGATIVE SPECIFIC GRAVITY UA (test code [...] NEGATIVE REDUCING SUBSTANCES URINE (test code = 82411-8) [facility], 1 [facility], NON [id number] 07:11:00Reason for exam:->ctShould this be performed at the bedside?->Yes [facility] : 1955 Sex: MFINAL REPORT RAD, CHEST, 1 VIEW, NON DEPT INDICATION: ct COMPARISON: Prior day's exam FINDINGS: Portable frontal view of the chest. IMPRESSION: Support Lines: None Lungs and pleura: Scattered subsegmental atelectasis. No new consolidation. No pneumothorax.Heart andmediastinum: Stable contours. Additional findings: None. Signed: JR Philip Robert MDReport Verified Date/Time: 05/17/2021 07:11:01 Reading Location: [facility] Radiology Reading Room BASIC METABOLIC [id number] 06:35:00 Test Item Value Reference Range Interpretation [...] S NOT APPLICABLE FOR DIALYSIS PATIEN TS. Telecommunications Administrator ID - TINY [id number] 06:35:00 Test Item Value Reference Range Interpretation Comments MAGNESIUM (BEAKER) (test code = 2.0 mg/dL 1.6-2.6 627) Telecommunications Administrator ID - TINY [id number] 06:35:00 Test Item Value Reference Range Interpretation Comments PHOSPHORUS (BEAKER) (test code = 4.0 mg/dL 2.3-4.7 604) Telecommunications Administrator ID - TINY WCBC W/PLT COUNT & AUTO [id number] 05:58:00 Test Item Value Reference Range Interpretation [...] (BEAKER) (test code = 2801) BASIC METABOLIC [id number] 08:28:00 Test Item Value Reference Range Interpretation [...] S NOT APPLICABLE FOR DIALYSIS PATIEN TS. Telecommunications Administrator ID Neo TOBIAS [id number] 08:28:00 Test Item Value Reference Range Interpretation Comments MAGNESIUM (BEAKER) (test code = 2.1 mg/dL 1.6-2.6 627) Telecommunications Administrator ID - JATINDER [id number] 08:28:00 Test Item Value Reference Range Interpretation Comments PHOSPHORUS (FRANCISCO) (test code = 3.1 mg/dL 2.3-4.7 604) Telecommunications Administrator ID - JATINDER WRAD, CHEST, 1 VIEW, NON [id number] 07:51:00Reason for exam:->ctShould this be performed at the bedside?->Yes [facility]ENTERName: KERON TELLEZ : 1955 [...] Russo Verified Date/Time: 05/16/2021 07:51:48 Reading Location: [address] Transitional Reading Room POCT-GLUCOSE [id number] 07:47:00 Test Item Value Reference Range Interpretation Comments POC-GLUCOSE METER 106 mg/dL 70-110 : TESTED A T [facility] [address] (FRANCISCO) (test code = [place], 1538) [address]: Telecommunications Administrator/Techni jolanta ID = [id number] for BRITNI LUU CBC W/PLT COUNT & AUTO [id number] 07:05:00 Test Item Value Reference Range Interpretation [...] PERCENT (BEAKER) (test code = 2801) CALCIUM, [id number] 07:04:00 Test Item Value Reference Range Interpretation Comments CALCIUM IONIZED (BEAKER) (test 1.17 mmol/L 1.12-1.27 code = 698) PH, BLOOD (BEAKER) (test code = 7.39 1810) POCT-GLUCOSE [id number] 21:25:00 Test Item Value Reference Range Interpretation Comments POC-GLUCOSE METER 131 mg/dL 70-110 H : TESTED A T [facility] 6720 (BEAKER) (test code = [facility], 153) 25087: Telecommunications Administrator/Techni jolanta ID = [id number] for Gallito Juany vanavia POCT-GLUCOSE [id number] 17:55:00 Test Item Value Reference Range Interpretation Comments POC-GLUCOSE METER 106 mg/dL 70-110 : TESTED A T [facility] 6720 (BEAKER) (test code = [facility], 153) 07341: Telecommunications Administrator/Techni jolanta ID = [id number] for Kalen AGUSTIN POCT-GLUCOSE [id number] 12:51:00 Test Item Value Reference Range Interpretation Comments POC-GLUCOSE METER 116 mg/dL 70-110 H : TESTED A T [facility] 6720 (BEAKER) (test code = [facility], 153) 32303: Telecommunications Administrator/Techni jolanta ID = [id number] for GO NZALEZ, LLANE RAD, CHEST, 1 VIEW, NON [id number] 08:07:00Reason for exam:->ctShould this be performed at the bedside?->Yes [facility] : 1955 Sex: MFINAL REPORT Chest one view. Clinical history: ct Comparison: May 14, 2021 Discussion: A frontal chest is provided. Cardiomediastinal contours are unchanged. Right IJ line has been removed. A left-sided chest tube is in stable position. Stable streaky left basilar opacity. No new consolidation. No pneumothorax or large effusion. Signed: Regine Mooney Verified Date/Time: 05/15/2021 08:07:09 Reading Location: [facility] C013X Ortho Consult Reading Room POCT-GLUCOSE [id number] 08:00:00 Test Item Value Reference Range Interpretation Comments POC-GLUCOSE METER 120 mg/dL 70-110 H : TESTED A T [facility] 6720 (BEAKER) (test code = [place] [place], 1538) 18443: Telecommunications Administrator/Techni jolanta ID = [id number] for Lexus Hernández BASIC METABOLIC [id number] 06:15:00 Test Item Value Reference Range Interpretation [...] S NOT APPLICABLE FOR DIALYSIS PATIEN TS. Telecommunications Administrator ID - [id number] 06:15:00 Test Item Value Reference Range Interpretation Comments MAGNESIUM (BEAKER) (test code = 2.0 mg/dL 1.6-2.6 627) Telecommunications Administrator ID - [id number] 06:15:00 Test Item Value Reference Range Interpretation Comments PHOSPHORUS (BEAKER) (test code = 3.1 mg/dL 2.3-4.7 604) Telecommunications Administrator ID - EDASICBC W/PLT COUNT & AUTO [id number] 05:47:00 Test Item Value Reference Range Interpretation [...] 0-1 PERCENT (BEAKER) (test code = 2801) [id number] 08:39:00 Test Item Value Reference Range Interpretation Comments MAGNESIUM (BEAKER) (test code = 1.9 mg/dL 1.6-2.6 627) Telecommunications Administrator ID - ADMINRAD, CHEST, 1 VIEW, NON [id number] 07:57:00while patient is intubated or has chest tubes.Reason for exam:->Status post CV SurgeryShould thisbe performed at the bedside?->Yes [facility] ZANDER : 1955 Sex: MFINAL REPORT TECHNIQUE: Frontal [...] no significant change since 05/13/2021. Signed: Hailey Samaniegoeptrini Verified Date/Time: 05/14/2021 07:57:54 Reading Location: [facility] Diagnostic Imaging Reading Room - [place] [address] 1129 [id number] 06:59:00 Test Item Value Reference Range Interpretation Comments MAGNESIUM (BEAKER) 5.3 mg/dL 1.6-2.6 HH Specimen slightly (test code = 627) hemolyzed Telecommunications Administrator ID - PIAYA [id number] 06:38:00 Test Item Value Reference Range Interpretation Comments ACTIVATED CLOTTING TIME 109 sec : 74 -137 seconds, (BEAKER) (test code = Baseli ne: TESTED AT 441) [address], [facility] 30: Telecommunications Administrator/Techni jolanta ID = [id number] for DERIK KUHN [id number] 06:38:00 Test Item Value Reference Range Interpretation Comments ACTIVATED CLOTTING TIME 125 sec : 74 -137 seconds, (BEAKER) (test code = Baseli ne: TESTED AT 441) [address], [facility] 30: Telecommunications Administrator/Techni jolanta ID = [id number] for DERIK KUHN [id number] 06:38:00 Test Item Value Reference Range Interpretation Comments ACTIVATED CLOTTING TIME 318 sec : 74 -137 seconds, (BEAKER) (test code = Baseli ne: TESTED AT 441) [address], [facility] 30: Telecommunications Administrator/Techni jolanta ID = [id number] for DERIK KUHN [id number] 06:38:00 Test Item Value Reference Range Interpretation Comments ACTIVATED CLOTTING TIME 290 sec : 74 -137 seconds, (BEAKER) (test code = Baseli ne: TESTED AT 441) [address], 770 30: Telecommunications Administrator/Techni jolanta ID = [id number] for DERIK KUHN [id number] 06:37:00 Test Item Value Reference Range Interpretation Comments ACTIVATED CLOTTING TIME 224 sec : 74 -137 seconds, (BEAKER) (test code = Baseli ne: TESTED AT 441) [facility] 67[address] [facility], 770 30: Telecommunications Administrator/Techni jolanta ID = [id number] for DERIK KUHN [id number] 06:06:00 Test Item Value Reference Range Interpretation Comments PHOSPHORUS (BEAKER) 4.1 mg/dL 2.3-4.7 Specimen slightly (test code = 604) hemolyzed Telecommunications Administrator ID - MAYNOR LBASIC METABOLIC [id number] 06:06:00 Test Item Value Reference Range Interpretation [...] S NOT APPLICABLE FOR DIALYSIS PATIEN TS. Telecommunications Administrator ID - PIAYA LCBC (HEMOGRAM ONLY)2021-05-14 05:17:00 [...] (BEAKER) (test code = 413) BLOOD GAS, [id number] 05:15:00 Test Item Value Reference Range Interpretation [...] (BEAKER) (test code = 1819) 36.0 GLUCOSE-STAT [id number] 05:15:00 Test Item Value Reference Range Interpretation Comments GLUCOSE RANDOM (BEAKER) (test code 137 mg/dL 70-110 H = 652) HGB/HCT (H&H) - STAT [id number] 05:15:00 Test Item Value Reference Range Interpretation Comments HEMOGLOBIN (BEAKER) (test code = 13.2 GM/DL 13.0-16.8 410) HEMATOCRIT (BEAKER) (test code = 39.0 % 40.0-50.0 L 411) CALCIUM, [id number] 05:15:00 Test Item Value Reference Range Interpretation Comments CALCIUM IONIZED (BEAKER) (test 1.17 mmol/L 1.12-1.27 code = 698) PH, BLOOD (BEAKER) (test code = 7.38 1810) SODIUM NA-STAT [id number] 05:13:00 Test Item Value Reference Range Interpretation Comments SODIUM (BEAKER) (test code = 381) 137 meq/L 136-145 POTASSIUM-STAT [id number] 05:13:00 Test Item Value Reference Range Interpretation Comments POTASSIUM (BEAKER) (test code = 4.0 meq/L 3.6-5.5 379) RAD, CHEST, 1 VIEW, NON [id number] 03:17:00Reason for exam:->Status post CV Surgery post op day 0Should this be performed at the bedside?->Yes [facility] : 1955 Sex: MFINAL REPORT [...] Unremarkable cardiomediastinal contours.Additional findings: None. Signed: Luiza Bealeport Verified Date/Time: 05/14/2021 03:17:59 BASIC METABOLIC [id number] 19:57:00 Test Item Value Reference Range Interpretation [...] S NOT APPLICABLE FOR DIALYSIS PATIEN TS. Telecommunications Administrator ID - [id number] 19:52:00 Test Item Value Reference Range Interpretation Comments MAGNESIUM (BEAKER) (test code = 2.1 mg/dL 1.6-2.6 627) Telecommunications Administrator ID - [id number] 19:52:00 Test Item Value Reference Range Interpretation Comments PHOSPHORUS (BEAKER) (test code = 3.5 mg/dL 2.3-4.7 604) Telecommunications Administrator ID - DBLACTIC ACID, [id number] 19:47:00 Test Item Value Reference Range Interpretation Comments LACTATE BLOOD ARTERIAL (2) 1.2 mmol/L 0.5-2.2 (BEAKER) (test code = 2874) Telecommunications Administrator ID - [id number] 19:36:00 Test Item Value Reference Range Interpretation Comments FIBRINOGEN LEVEL (BEAKER) (test 311 mg/dl 225-434 code = 658) [id number] 19:36:00 Test Item Value Reference Range Interpretation Comments PARTIAL THROMBOPLASTIN TIME 27.4 seconds 22.5-36.0 (BEAKER) (test code = 760) PROTHROMBIN [id number] 19:35:00 Test Item Value Reference Range Interpretation Comments PROTIME (BEAKER) 14.8 seconds 11.9-14.2 H (test code = 759) INR (BEAKER) (test 1.18 See_Comment [Automat ed message] code = 370) The system Telvent Git generated this result transmitted ref erence range: [...] (BEAKER) (test code = 2801) BLOOD GAS, [id number] 19:15:00 Test Item Value Reference Range Interpretation [...] 36.4 (test code = 1818) BLOOD GAS, [id number] 18:36:00 Test Item Value Reference Range Interpretation [...] (BEAKER) (test code = 1819) 54.0 GLUCOSE-STAT [id number] 18:36:00 Test Item Value Reference Range Interpretation Comments GLUCOSE RANDOM (BEAKER) (test code 132 mg/dL 70-110 H = 652) HGB/HCT (H&H) - STAT [id number] 18:36:00 Test Item Value Reference Range Interpretation Comments HEMOGLOBIN (BEAKER) (test code = 11.7 GM/DL 13.0-16.8 L 410) HEMATOCRIT (BEAKER) (test code = 34.0 % 40.0-50.0 L 411) SODIUM NA-STAT [id number] 18:35:00 Test Item Value Reference Range Interpretation Comments SODIUM (BEAKER) (test code = 381) 138 meq/L 136-145 POTASSIUM-STAT [id number] 18:35:00 Test Item Value Reference Range Interpretation Comments POTASSIUM (BEAKER) (test code = 3.7 meq/L 3.6-5.5 379) LACTIC ACID, [id number] 16:33:00 Test Item Value Reference Range Interpretation Comments LACTATE BLOOD ARTERIAL (2) 1.1 mmol/L 0.5-2.2 (BEAKER) (test code = 2874) Telecommunications Administrator ID - EMERSONBLOOD GAS, [id number] 15:41:00 Test Item Value Reference Range Interpretation [...] = 1819) 50.0 HGB/HCT (H&H) - STAT [id number] 15:41:00 Test Item Value Reference Range Interpretation Comments HEMOGLOBIN (BEAKER) (test code = 12.9 GM/DL 13.0-16.8 L 410) HEMATOCRIT (BEAKER) (test code = 38.0 % 40.0-50.0 L 411) GLUCOSE-STAT [id number] 15:40:00 Test Item Value Reference Range Interpretation Comments GLUCOSE RANDOM (BEAKER) (test code 108 mg/dL 70-110 = 652) SODIUM NA-STAT [id number] 15:40:00 Test Item Value Reference Range Interpretation Comments SODIUM (BEAKER) (test code = 381) 139 meq/L 136-145 POTASSIUM-STAT [id number] 15:40:00 Test Item Value Reference Range Interpretation Comments POTASSIUM (BEAKER) (test code = 4.0 meq/L 3.6-5.5 379) CALCIUM, [id number] 15:18:00 Test Item Value Reference Range Interpretation Comments CALCIUM IONIZED (BEAKER) (test 1.09 mmol/L 1.12-1.27 L code = 698) PH, BLOOD (BEAKER) (test code = 7.41 1810) BLOOD GAS, [id number] 15:16:00 Test Item Value Reference Range Interpretation [...] (BEAKER) (test code = 1819) 55.0 POTASSIUM-STAT [id number] 15:16:00 Test Item Value Reference Range Interpretation Comments POTASSIUM (BEAKER) (test code = 3.4 meq/L 3.6-5.5 L 379) HGB/HCT (H&H) - STAT [id number] 15:16:00 Test Item Value Reference Range Interpretation Comments HEMOGLOBIN (BEAKER) (test code = 11.8 GM/DL 13.0-16.8 L 410) HEMATOCRIT (BEAKER) (test code = 35.0 % 40.0-50.0 L 411) GLUCOSE-STAT [id number] 15:08:00 Test Item Value Reference Range Interpretation Comments GLUCOSE RANDOM (BEAKER) (test code 107 mg/dL 70-110 = 652) SODIUM NA-STAT [id number] 15:08:00 Test Item Value Reference Range Interpretation Comments SODIUM (BEAKER) (test code = 381) 138 meq/L 136-145 LACTIC ACID, [id number] 15:07:00 Test Item Value Reference Range Interpretation Comments LACTATE BLOOD VENOUS (2) (BEAKER) 0.99 mmol/L 0.50-2.20 (test code = 2872) Telecommunications Administrator ID - EMERSONHGB/HCT (H&H) - STAT [id number] 14:38:00 Test Item Value Reference Range Interpretation Comments HEMOGLOBIN (BEAKER) (test code = 12.9 GM/DL 13.0-16.8 L 410) HEMATOCRIT (BEAKER) (test code = 38.0 % 40.0-50.0 L 411) CALCIUM, [id number] 14:38:00 Test Item Value Reference Range Interpretation Comments CALCIUM IONIZED (BEAKER) (test 1.22 mmol/L 1.12-1.27 code = 698) PH, BLOOD (BEAKER) (test code = 7.36 1810) BLOOD GAS, [id number] 14:37:00 Test Item Value Reference Range Interpretation [...] (BEAKER) (test code = 1819) 73.0 GLUCOSE-STAT [id number] 14:37:00 Test Item Value Reference Range Interpretation Comments GLUCOSE RANDOM (BEAKER) (test code 102 mg/dL 70-110 = 652) SODIUM NA-STAT [id number] 14:37:00 Test Item Value Reference Range Interpretation Comments SODIUM (BEAKER) (test code = 381) 139 meq/L 136-145 POTASSIUM-STAT [id number] 14:37:00 Test Item Value Reference Range Interpretation Comments POTASSIUM (BEAKER) (test code = 3.8 meq/L 3.6-5.5 379) CALCIUM, [id number] 13:40:00 Test Item Value Reference Range Interpretation Comments CALCIUM IONIZED (BEAKER) (test 1.12 mmol/L 1.12-1.27 code = 698) PH, BLOOD (BEAKER) (test code = 7.43 1810) GLUCOSE-STAT [id number] 13:39:00 Test Item Value Reference Range Interpretation Comments GLUCOSE RANDOM (BEAKER) (test code 104 mg/dL 70-110 = 652) SODIUM NA-STAT [id number] 13:39:00 Test Item Value Reference Range Interpretation Comments SODIUM (BEAKER) (test code = 381) 140 meq/L 136-145 POTASSIUM-STAT [id number] 13:39:00 Test Item Value Reference Range Interpretation Comments POTASSIUM (BEAKER) (test code = 3.7 meq/L 3.6-5.5 379) BLOOD GAS, [id number] 13:39:00 Test Item Value Reference Range Interpretation [...] = 1819) 79.0 HGB/HCT (H&H) - STAT [id number] 13:39:00 Test Item Value Reference Range Interpretation Comments HEMOGLOBIN (BEAKER) (test code = 13.3 GM/DL 13.0-16.8 410) HEMATOCRIT (BEAKER) (test code = 39.0 % 40.0-50.0 L 411) POCT-GLUCOSE [id number] 09:40:00 Test Item Value Reference Range Interpretation Comments POC-GLUCOSE METER 115 mg/dL 70-110 H : TESTED A T [facility] 6720 (BEAKER) (test code = RACHEL RODAS [place], 1538) [address]: Telecommunications Administrator/Techni jolanta ID = [id number] for CLAYTON LEWIS SARS-COV2/RT-PCR ([facility])2021-05-12 01:07:00 Test Item Value Reference Range Interpretation Comments SARS-COV2/RT-PCR (test Negative Not Detected, Negative, code = 1044002) See external report for linked test SARS-COV-[address] [facility] (test code = 2409306) Negative result for this test determines that [...] the Arias SARS-CoV-2 assay.Fact Sheet for Healthcare Providers:https://www.[employer]Board.arias/gisel/ JZ_XSKJ-AfI-1_GRT_Dovm_Scizf_09-997388.pdfFact Sheet for Healthcare Patients:https://www.SolveBoard.ab afia/gisel/VK_AJWS-JnZ-7_Dszjdyr_Ljqc_Hnopb_CP_77-701475Q5.pdfPerforming Laboratory:[place] [address] [place] [address] HEMOGLOBIN [id number] 13:53:00 Test Item Value Reference Range Interpretation Comments HEMOGLOBIN A1C (BEAKER) (test code = 6.4 % 4.3-6.1 H 368) COMPREHENSIVE METABOLIC [id number] 13:44:00 Test Item Value Reference Range Interpretation [...] S NOT APPLICABLE FOR DIALYSIS PATIEN TS. Telecommunications Administrator ID - [id number] 13:44:00 Test Item Value Reference Range Interpretation Comments MAGNESIUM (BEAKER) (test code = 2.3 mg/dL 1.6-2.6 627) Telecommunications Administrator ID - DBLIPID [id number] 13:44:00 Test Item Value Reference Range Interpretation [...] Borderline 130-159 High 160-189 Very High >=190 Telecommunications Administrator ID - [id number] 13:40:00 Test Item Value Reference Range Interpretation Comments PARTIAL THROMBOPLASTIN TIME 28.0 seconds 22.5-36.0 (BEAKER) (test code = 760) PROTHROMBIN [id number] 13:39:00 Test Item Value Reference Range Interpretation Comments PROTIME (BEAKER) 12.7 seconds 11.9-14.2 (test code = 759) INR (BEAKER) (test 0.97 See_Comment [Automat ed message] code = 370) The system Tel[employer] Git generated this result transmitted ref erence range: [...] (test code = 2801) HIGH SENSITIVITY TROPONIN [id number] 21:19:00 Test Item Value Reference Range Interpretation Comments HIGH SENSITIVITY 36 pg/ml See_Comment H [Automated message] TROPONIN I (test code = The system which 8965878) generated this result transmitted ref erence range: <=35. Th e reference range was not used to int erpret this result as normal/abnormal . Telecommunications Administrator ID - CINDY BThe IT SYSTEMS ENGINEER STAT High Sensitivity Troponin-I results should be used in conjunction with other diagnostic information such as ECG, clinical observations and information, and patient symptoms to aid in the diagnosis of AR.HIGH SENSITIVITY TROPONIN [id number] 13:20:00 Test Item Value Reference Range Interpretation Comments HIGH SENSITIVITY 36 pg/ml See_Comment H [Automated message] TROPONIN I (test code = The system which 3198015) generated this result transmitted ref erence range: <=35. Th e reference range was not used to int erpret this result as normal/abnormal . Telecommunications Administrator ID - MARICEL CThe IT SYSTEMS ENGINEER STAT High Sensitivity Troponin-I results should be used in conjunction with other diagnostic information such as ECG, clinical observations and information, and patientsymptoms to aid in the diagnosis of AR. BASIC METABOLIC [id number] 04:46:00 Test Item Value Reference Range Interpretation [...] S NOT APPLICABLE FOR DIALYSIS PATIEN TS. Telecommunications Administrator ID - JAK [id number] 04:46:00 Test Item Value Reference Range Interpretation Comments MAGNESIUM (BEAKER) (test code = 2.1 mg/dL 1.6-2.6 627) Telecommunications Administrator ID - JAK MCBC W/PLT COUNT & AUTO [id number] 04:32:00 Test Item Value Reference Range Interpretation [...] PERCENT (BEAKER) (test code = 2801) CT, [id number] 22:08:00Unlisted Reason for Exam - Click Yes and Enter Reason Below->YesUnlisted Reason for Exam->Evaluate descending aorta calcification to femoral iliac vessels, prior to cabgWill this procedure require oral contrast?->No [facility] : 1955 Sex: MFINAL REPORT [...] with bilateral common iliac artery stents. Signed:Sharita Patel Verified Date/Time: 05/03/2021 22:08:57 Reading Location: [address] Reading Room [id number] 16:21:00 Test Item Value Reference Range Interpretation Comments ACTIVATED CLOTTING TIME 131 sec : 74 -137 seconds, (BEAKER) (test code = Baseli ne: TESTED AT 441) [address], [facility] 30: Telecommunications Administrator/Techni jolanta ID = [id number] for ILLORY (V), IGNACIO [id number] 15:12:00 Test Item Value Reference Range Interpretation Comments ACTIVATED CLOTTING TIME 158 sec : 74 -137 seconds, (BEAKER) (test code = Baseli ne: TESTED AT 441) [address], [facility] 30: Telecommunications Administrator/Techni jolanta ID = [id number] for ILLORY (V), IGNACIO [id number] 12:13:00 Test Item Value Reference Range Interpretation Comments ACTIVATED CLOTTING TIME 290 sec : 74 -137 seconds, (BEAKER) (test code = Baseli ne: TESTED AT 441) [address], [facility] 30: Telecommunications Administrator/Techni jolanta ID = [id number] for CA RPIO, VIRGINIE [id number] 12:00:00 Test Item Value Reference Range Interpretation Comments ACTIVATED CLOTTING TIME 252 sec : 74 -137 seconds, (BEAKER) (test code = Baseli ne: TESTED AT 441) [address], [facility] 30: Telecommunications Administrator/Techni jolanta ID = [id number] for CA RPIO, VIRGINIE BASIC METABOLIC [id number] 08:47:00 Test Item Value Reference Range Interpretation [...] S NOT APPLICABLE FOR DIALYSIS PATIEN TS. Telecommunications Administrator ID - AAHAMIDPROTHROMBIN TIME/[id number] 08:38:00 Test Item Value Reference Range Interpretation Comments PROTIME (BEAKER) 13.1 seconds 11.9-14.2 (test code = 759) INR (BEAKER) (test 1.01 See_Comment [Automat ed message] code = 370) The system Tel[employer] Git generated this result transmitted ref erence range: [...] PERCENT (BEAKER) (test code = 2801) SARS-COV2/RT-PCR ([facility])2021-04-29 18:08:00 Test Item Value Reference Range Interpretation Comments SARS-COV2/RT-PCR (test Negative Not Detected, Negative, code = 8092618) See external report for linked test SARS-COV-2 PERFORMING LAB [facility] (test code = 6689172) Negative result for this test determines that [...] 564(g) of the Act.Fact Sheet for Healthcare Providers:https://www.[employer]/sites/default/files/product/documents/Fact_Shee t_LC_Ityxqaffn_Xrlw_NKQY-VsQ-9.pdfFact Sheet for Healthcare Patients:https://www.[employer]/sites/default/files/product/ documents/Fdbk_Smrta_Cdcerell_Tdvh_OOSZ-OnT-9.pdfPerforming Laboratory:[place] [address], [place] [address]FYBAB METABOLIC PANEL 2021-04-29 13:20:00 Test Item Value [...] S NOT APPLICABLE FOR DIALYSIS PATIEN TS. Telecommunications Administrator ID - JAK MPROTHROMBIN TIME/[id number] 11:14:00 Test Item Value Reference Range Interpretation Comments PROTIME (BEAKER) 13.3 seconds 11.9-14.2 (test code = 759) INR (BEAKER) (test 1.03 See_Comment [Automat ed message] code = 370) The system Tel[employer] Git generated this result transmitted ref erence range: [...] (BEAKER) (test code = 2801) POCT URINALYSIS [id number] 00:00:00 Test Item Value Reference Range Interpretation Comments COLOR UA (test code = 5778-6) Colorless YELLOW/STRAW CLARITY UA (test code = 30138-9) Clear CLEAR GLUCOSE UA (test code = 5792-7) Negative NEGATIVE BILIRUBIN UA (test code = 5770-3) Negative NEGATIVE KETONES UA (test code = 04098-0) Negative NEGATIVE SPECIFIC GRAVITY UA (test code [...] REDUCING SUBSTANCES URINE (test NEGATIVE code = 36200-7) [facility]ANG [id number] 13:53:00 [facility] : 1955 Sex: MFINAL REPORT EXAM: CALCIUM SCORE AND CORONARY CTA INDICATION: Chest pain, acute, nonspecific COMPARISON: None. TECHNIQUE: Multi-detector CT technology was employed ( Discovery CT 750 HD 64 MDCT [employer]). Minimal slice thickness was performed following the [...] POC-CREATININE 0.9 mg/dL 0.6-1.3 : TESTED AT B [facility] ([facility] [facility] code = 1859) A, [facility] 7 3202: Telecommunications Administrator/Techni jolanta ID = [id number] for IRVIN EPPERSON POC-EGFR 85 mL/min/1.73M2 ([facility] (test code = 1860) POCT URINALYSIS [id number] 00:00:00 Test Item Value Reference Range Interpretation Comments COLOR UA (test code = 5778-6) Yellow YELLOW/STRAW CLARITY UA (test code = 85378-3) Clear CLEAR GLUCOSE UA (test code = 5792-7) Negative NEGATIVE BILIRUBIN UA (test code = 5770-3) Negative NEGATIVE KETONES UA (test code = 32100-1) Negative NEGATIVE SPECIFIC GRAVITY UA (test code [...] NEGATIVE REDUCING SUBSTANCES URINE (test code = 01952-9) [facility]2021-01-05 02:00:00 Test Item Value Reference Range Interpretation Comments SARS-COV2/RT-PCR (test Negative Not Detected, Negative, code = 4600922) See external report for linked test SARS-COV-[address] [facility] (test code = 0569497) Negative result for this test determines that [...] Arias SARS-CoV-2 assay.Fact Sheet for Healthcare Providers:https://www.molecular.arias/gisel/ SP_ZMKQ-XmP-5_ZON_Pdgo_Ciiqr_15-979956.pdfFact Sheet for Healthcare Patients:https://www.molecular.ab afia/gisel/EY_IPQG-PzO-0_Jkesmxm_Tagd_Yhgbt_SV_85-733868M8.pdfPerforming Laboratory:[facility] [place] [address] BASIC METABOLIC [id number] 13:40:00 Test Item Value Reference Range Interpretation [...] S NOT APPLICABLE FOR DIALYSIS PATIEN TS. Telecommunications Administrator ID - JAK MPROTHROMBIN TIME/[id number] 13:21:00 Test Item Value Reference Range Interpretation Comments PROTIME (BEAKER) 12.7 seconds 11.9-14.2 (test code = 759) INR (BEAKER) (test 0.99 See_Comment [Automat ed message] code = 370) The system Tel[employer] Git generated this result transmitted ref erence range: [...] mechanical heart valves.CBC W/PLT COUNT & AUTO [id number] 13:14:00 Test Item Value Reference Range Interpretation [...] (BEAKER) (test code = 2801) POCT URINALYSIS [id number] 00:00:00 Test Item Value Reference Range Interpretation Comments COLOR UA (test code = 5778-6) Colorless YELLOW/STRAW CLARITY UA (test code = 73347-0) Clear CLEAR GLUCOSE UA (test code = 5792-7) Negative NEGATIVE BILIRUBIN UA (test code = 5770-3) Negative NEGATIVE KETONES UA (test code = 25567-7) Negative NEGATIVE SPECIFIC GRAVITY UA (test code [...] NEGATIVE REDUCING SUBSTANCES URINE (test code = 07246-6) [facility] [id number] 10:00:00FINAL REPORT History: Numbness and tinglingComparison studies: [...] Hussein Verified Date/Time: 05/03/2019 10:00:48 Reading Location: [facility] Reading Room [address] [place] [address] CBC W/PLT COUNT & AUTO [id number] 06:59:00 Test Item Value Reference Range Interpretation [...] (BEAKER) (test code = 2801) BASIC METABOLIC [id number] 06:03:00 Test Item Value Reference Range Interpretation [...] NOT APPLICABLE FOR DIALYSIS PATIEN TS. HEMOGLOBIN [id number] 08:52:00 Test Item Value Reference Range Interpretation Comments HEMOGLOBIN A1C (BEAKER) (test code = 5.8 % 4.3-6.1 368) LIPID [id number] 06:11:00 Test Item Value Reference Range Interpretation [...] High 160-189 Very High >=190 FastingBASIC METABOLIC [id number] 06:11:00 Test Item Value Reference Range Interpretation [...] PATIEN TS. FastingCBC W/PLT COUNT & AUTO [id number] 05:06:00 Test Item Value Reference Range Interpretation [...] (test code = 2801) TSH/FREE T4 IF [id number] 19:14:00 Test Item Value Reference Range Interpretation Comments THYROID STIMULATING HORMONE 0.53 uIU/mL 0.35-4.94 (BEAKER) (test code = 772) VITAMIN B12 AND [id number] 19:14:00 Test Item Value Reference Range Interpretation Comments VITAMIN B12 (BEAKER) (test code = 660 pg/mL 213-816 774) FOLATE (BEAKER) (test code = 362) 6.9 ng/mL >=7.0 L BASIC METABOLIC [id number] 18:39:00 Test Item Value Reference Range Interpretation [...] FOR DIALYSIS PATIEN TS. MR, BRAIN, WITHOUT [id number] 16:16:00Reason for exam:->StrokeWhat is the patient's sedation [...] None available. TECHNIQUE: 2 D and 3-D [id number] MRA images of the intra- and extracranial [...] is antegrade in both vertebral arteries. MRA [place]: There is a inferiorly to [...] MDReport Verified Date/Time: 03/03/2019 16:16:12 Reading Location: [facility] C013 Neuro Reading Room MR, MRA, BRAIN, WITHOUT [id number] 16:16:00Reason for exam:- >Ischemic Stroke EvaluationFINAL REPORT [...] None available. TECHNIQUE: 2 D and 3-D [id number]-vm-[id number] MRA images of the intra- and extracranial [...] is antegrade in both vertebral arteries. MRA [place]: There is a inferiorly to [...] MDReport Verified Date/Time: 03/03/2019 16:16:12 Reading Location: [facility] C013V Neuro Reading Room MR, MRA, NECK, WITHOUT IV [id number] 16:16:00Reason for exam:->Ischemic Stroke EvaluationFINAL REPORT MRI [...] None available. TECHNIQUE: 2 D and 3-D [id number]-[id number] MRA images of the intra- and extracranial [...] is antegrade in both vertebral arteries. MRA [place]: There is a inferiorly to [...] MDReport Verified Date/Time: 03/03/2019 16:16:12 Reading Location: [facility] C013 Neuro Reading Room LIPID [id number] 04:08:00 Test Item Value Reference Range Interpretation [...] High 160-189 Very High >=190 FastingBASIC METABOLIC [id number] 04:08:00 Test Item Value Reference Range Interpretation [...] PATIEN TS. FastingCBC W/PLT COUNT & AUTO [id number] 03:54:00 Test Item Value Reference Range Interpretation [...] = 2801) CBC W/PLT COUNT & AUTO [id number] 20:55:00 Test Item Value Reference Range Interpretation [...] (BEAKER) (test code = 2801) BASIC METABOLIC [id number] 20:44:00 Test Item Value Reference Range Interpretation [...]
[2022-05-28] MEDS ORDERED: METOCLOPRAMIDE 10 MG/2mL INJ ONE (22:03)
[2022-05-28] MEDS ORDERED: NA CHLORIDE 0.9% 500 ML ONE (22:04)
[2022-05-28] MEDS ORDERED: DIPHENHYDRAMINE 50 MG/ML VIAL ONE (22:04)
--- NOTE | 2022-05-28 22:43 | RAD REPORT ---
EXAM DESCRIPTION: CT - Head Brain Wo Cont - 05/28/2022 10:24 pm CLINICAL HISTORY: headache COMPARISON: Head Brain Wo Cont dated 03/19/2021; Ct Stroke Brain Wo Cont dated 03/08/2019 TECHNIQUE: All CT scans are performed using dose optimization technique as appropriate and may inclu de automated exposure control or mA/KV adjustment according to patient size. FINDINGS: No intracranial hemorrhage, hydrocephalus or extra-axial fluid collection.No areas of brai n edema or evidence of midline shift. Occipital craniotomy. The paranasal sinuses and mastoids are clear. The calvarium is intact. IMPRESSION: No acute intracranial abnormality.
[2022-05-29] MEDS ORDERED: KETOROLAC 30 MG/ML INJ ONE (00:20)
[2022-05-29] MEDS ORDERED: dexAMETHasone 10 MG/ML VIAL ONE (00:20)
--- NOTE | 2022-05-29 00:42 | ER ---
Nurse's Notes [facility] Name: John Moreno Age: 66 yrs Sex: Male : 1955 Arrival Date: 05/28/2022 Time: 20:52 Bed 2 Private MD: Edilson Pickett Diagnosis: Headache Presentation: 05/28 21:14 Chief complaint: Patient states: HEADACHE SINCE YESTERDAY MORNING. Coronavirus screen: [facility] Vaccine status: Patient reports being unvaccinated. headache. Ebola Screen: Patient negative for fever greater than or equal to 101.5 degrees Fahrenheit, and additional compatible Ebola Virus Disease symptoms. Initial Sepsis Screen: Does the patient meet any 2 criteria? No. Patient's initial sepsis screen is negative. Does the patient have a suspected source of infection? No. Patient's initial sepsis screen is negative. Risk Assessment: Do you want to hurt yourself or someone else? Patient reports no desire to harm self or others. Onset of symptoms was May 27, 2022. 21:14 Method Of Arrival: Ambulatory [facility] 21:14 Acuity: JEFFRY 3 [facility] Triage Assessment: 21:16 Headache History: Denies prior headaches. General: Appears in no apparent distress. bh1 uncomfortable, Behavior is calm, cooperative, appropriate for age. Pain: Pain currently is 8 out of 10 on a pain scale. Pain began 1 day ago. Also complains of no other associated symptoms. Neuro: No deficits noted. Historical: - Allergies: 21:16 NKDA; [facility] - Home Meds: 21:16 amlodipine 10 mg tab [Active]; Aspirin Oral [Active]; atorvastatin 10 mg Oral tab [facility] [Active]; clopidogrel Oral [Active]; Cyclobenzaprine Oral [Active]; duloxetine 30 mg Oral cpDR [Active]; Levofloxacin Oral [Active]; losartan 50 mg Oral tab [Active]; omeprazole 40 mg Oral cpDR [Active]; pantoprazole Oral [Active]; - PMHx: 21:16 coronary atherosclerosis; Hyperlipidemia; Hypertension; [facility] - PSHx: 21:16 cardiac bypass; heart cath; stents in legs; [facility] - Immunization history:: Adult Immunizations up to date. - Social history:: Smoking status: Patient denies any tobacco usage or history of. Screenin:39 Abuse screen: Denies threats or abuse. Nutritional screening: No deficits noted. Tuberculosis screening: No symptoms or risk factors identified. Fall Risk None identified. Assessment: 21:15 General: Appears distressed, well groomed, well developed, Behavior is anxious. Pain: Complains of pain in forehead Pain radiates to occipital area Pain currently is 10 out of 10 on a pain scale. Neuro: No deficits noted. Level of Consciousness is awake, alert, obeys commands, Oriented to person, place, time, situation, Railroad Signal Operator are equal bilaterally Moves all extremities. Full function Reports dizziness, since yesterday 9am. Cardiovascular: No deficits noted. Respiratory: No deficits noted. Airway is patent Trachea midline Respiratory effort is even, unlabored. GI: No deficits noted. No signs and/or symptoms were reported involving the gastrointestinal system. : No deficits noted. No signs and/or symptoms were reported regarding the genitourinary system. EENT: No deficits noted. No signs and/or symptoms were reported regarding the EENT system. Vital Signs: 21:16 BP 160 / 81; Pulse 71; Resp 18; Temp 98.2(TE); Pulse Ox 100% on R/A; Weight 79.38 kg; 1 Height 5 ft. 4 in. (162.56 cm); Pain 8/10; 22:10 BP 120 / 76; Pulse 72; Resp 18; Pulse Ox 99% on R/A; kl 23:28 BP 123 / 68; Pulse 62; Resp 18 S; Pulse Ox 97% on R/A; as6 05/29 00:59 BP 121 / 72; Pulse 82; Resp 18; Pulse Ox 98% ; Pain 3/10; kl 05/28 21:16 Body Mass Index 30.04 (79.38 kg, 162.56 cm) [facility] ED Course: 05/28 20:52 Patient arrived in ED. mr 20:52 Edilson Pickett DO is Private Physician. mr 21:02 Rene Trevizo PA is PHCP. [facility] 21:02 Xiang Plascencia DO is Attending Physician. [facility] 21:16 Triage completed. [facility] 21:16 Arm band placed on right wrist. [facility] 21:23 Charles Santiago, CISCO is Primary Nurse. [facility] 22:00 Inserted saline lock: 20 gauge in left antecubital area, using aseptic technique. 22:25 CT Head Brain wo Cont In Process Unspecified. EDMS 05/29 00:41 Adonis Yates MD is Referral Physician. [facility] 00:58 Patient has correct armband on for positive identification. kl 00:58 No provider procedures requiring assistance completed. IV discontinued, intact, kl bleeding controlled, No redness/swelling at site. Pressure dressing applied. Administered Medications: 05/28 22:08 Drug: diphenhydrAMINE 12.5 mg Route: IVP; Site: right antecubital; kl 22:09 Drug: Reglan (metoCLOPramide) 10 mg Route: IVP; Site: right antecubital; kl 22:10 Drug: NS 0.9% 500 ml Route: IV; Rate: bolus; Site: right antecubital; kl 05/29 00:16 Drug: Decadron - Dexamethasone 10 mg Route: IVP; Site: right antecubital; as6 00:17 Drug: Ketorolac 15 mg Route: IVP; Site: right antecubital; as6 Medication: 00:58 VIS not applicable for this client. Outcome: 00:41 Discharge ordered by MD. [facility] 00:57 Discharged to home ambulatory, with family. 00:57 Condition: stable 00:57 Discharge instructions given to patient, family, Instructed on discharge instructions, follow up and referral plans. Demonstrated understanding of instructions, follow-up care. 00:59 Patient left the ED. Signatures: Dispatcher [employer] EDNV Marium Santos RN RN kl Mickail, Joel, PA PA [facility] Luh Peters mr Charles Santiago RN RN as Jeanie Winters RN RN [facility]
--- NOTE | 2022-05-29 00:42 | EDPHYS ---
Physician Documentation [facility] Name: John Moreno Age: 66 yrs Sex: Male : 1955 Arrival Date: 05/28/2022 Time: 20:52 Bed 2 Private MD: Krysta Picketth ED Physician Xiang Plascencia HPI: 05/29 00:39 This 66 yrs old Male presents to ER via Ambulatory with complaints of Headache.jmm 00:39 The patient complains of pain to the forehead, left frontal area, left side of the back jmm of head, left occipital area, right frontal area, right side of the back of head and right occipital area. Onset: The symptoms/episode began/occurred gradually, 1 day(s) ago. Associated signs and symptoms: Pertinent negatives: fever, malaise, nausea, neck stiffness, paresthesias, vision changes, vision loss, vomiting, weakness. Headache History: The patient has had previous headaches and this one is different than previous episodes. The symptoms are alleviated by nothing. the symptoms are aggravated by nothing. It is unknown whether or not the patient has had similar symptoms in the past. Historical: - Allergies: 05/28 21:16 NKDA; bh1 - Home Meds: 21:16 amlodipine 10 mg tab [Active]; Aspirin Oral [Active]; atorvastatin 10 mg Oral tab bh1 [Active]; clopidogrel Oral [Active]; Cyclobenzaprine Oral [Active]; duloxetine 30 mg Oral cpDR [Active]; Levofloxacin Oral [Active]; losartan 50 mg Oral tab [Active]; omeprazole 40 mg Oral cpDR [Active]; pantoprazole Oral [Active]; - PMHx: 21:16 coronary atherosclerosis; Hyperlipidemia; Hypertension; bh1 - PSHx: 21:16 cardiac bypass; heart cath; stents in legs; 1 - Immunization history:: Adult Immunizations up to date. - Social history:: Smoking status: Patient denies any tobacco usage or history of. ROS: 05/29 00:39 Constitutional: Negative for fever, chills, and weight loss, Cardiovascular: Negative jmm for chest pain, palpitations, and edema, Respiratory: Negative for shortness of breath, cough, wheezing, and pleuritic chest pain. Neuro: Positive for headache. All other systems are negative. Exam: 00:39 Constitutional: This is a well developed, well nourished patient who is awake, alert, jmm and in no acute distress. Head/Face: atraumatic. Eyes: EOMI, no conjunctival erythema appreciated ENT: Moist Mucus Membranes Neck: Trachea midline, Supple Chest/axilla: Normal chest wall appearance and motion. Cardiovascular: Regular rate and rhythm. No edema appreciated Respiratory: Normal respirations, no respiratory distress appreciated Abdomen/GI: Non distended Back: Normal ROM Skin: General appearance color normal MS/ Extremity: Moves all extremities, no obvious deformities appreciated, no edema noted to the lower extremities Neuro: Awake and alert Psych: Behavior is normal, Mood is normal, Patient is cooperative and pleasant Vital Signs: 05/28 21:16 BP 160 / 81; Pulse 71; Resp 18; Temp 98.2(TE); Pulse Ox 100% on R/A; Weight 79.38 kg; 1 Height 5 ft. 4 in. (162.56 cm); Pain 8/10; 22:10 BP 120 / 76; Pulse 72; Resp 18; Pulse Ox 99% on R/A; kl 23:28 BP 123 / 68; Pulse 62; Resp 18 S; Pulse Ox 97% on R/A; as6 05/29 00:59 BP 121 / 72; Pulse 82; Resp 18; Pulse Ox 98% ; Pain 3/10; kl 05/28 21:16 Body Mass Index 30.04 (79.38 kg, 162.56 cm) [facility] MDM: 05/28 21:29 Patient medically screened. [facility] 05/29 00:39 Data reviewed: vital signs, nurses notes. Counseling: I had a detailed discussion with [facility] the patient and/or guardian regarding: the historical points, exam findings, and any diagnostic results supporting the discharge/admit diagnosis, radiology results, the need for outpatient follow up, to return to the emergency department if symptoms worsen or persist or if there are any questions or concerns that arise at home. ED course: CT negative. Pain was mildly relieved in the ED. Patient advised to follow-up with neurology for further evaluation otherwise given strict return precautions. Patient understood agrees plan of care.. 05/28 21:24 Order name: CT Head Brain wo Cont; Complete Time: 22:46 [facility] 05/28 21:41 Order name: Saline Lock; Complete Time: 22:26 [facility] Administered Medications: 05/28 22:08 Drug: diphenhydrAMINE 12.5 mg Route: IVP; Site: right antecubital; kl 22:09 Drug: Reglan (metoCLOPramide) 10 mg Route: IVP; Site: right antecubital; kl 22:10 Drug: NS 0.9% 500 ml Route: IV; Rate: bolus; Site: right antecubital; kl 05/29 00:16 Drug: Decadron - Dexamethasone 10 mg Route: IVP; Site: right antecubital; as6 00:17 Drug: Ketorolac 15 mg Route: IVP; Site: right antecubital; as6 Disposition: 06:33 Co-signature as Attending Physician, Xiang Plascencia DO I was immediately available on-site ms3 in the Emergency Department for consultation in the care of the patient.. Disposition Summary: 05/29/22 00:41 Discharge Ordered Location: Home [facility] Condition: Stable jm Diagnosis - Headache [facility] Followup: [facility] - With: Adonis Yates MD - When: 2 - 3 days - Reason: Recheck today's complaints, Continuance of care, Re-evaluation by your physician Discharge Instructions: - Discharge Summary Sheet jm - General Headache Without Cause jm Forms: - Medication Reconciliation Form [facility] - Thank You Letter [facility] - Antibiotic Education [facility] - Prescription Opioid Use [facility] Signatures: Dispatcher [employer] Marium Santizo RN RN kl Mickail, Joel, PA PA jmm Sims, Marcus, DO DO ms3 Charles Santiago RN RN as6 Jeanie Winters RN RN 1
[2022-05-29 01:39] VITALS: TEMP 98.2
[2022-05-29 01:48] VITALS: BP 121/72; O2SAT 98
== END 2022-05-29 00:59 | disposition home or self-care (01) ==
LOC: ER 20:49
DX: R51.9 Headache, unspecified (principal); I10 Essential (primary) hypertension; E78.5 Hyperlipidemia, unspecified; Z95.1 Presence of aortocoronary bypass graft
CPT/HCPCS: 70450; 96375; 96374; 99284; J2765; J1200; J1100; J7040

== ENCOUNTER 2022-07-29 19:54 | Emergency (ER) | payer OTHER ==
--- OUTSIDE RECORDS SUMMARY | 2022-07-29 20:11 | XMS REPORT | Continuity of Care Document ---
:1955 Author Organization [facility] t Address [address] [place] [address] Care Team Providers Name Role Phone Viry Frazier Primary Care Physician [phone] MOOKIE MATTHEW Attending Clinician Unavailable Edilson Pickett Attending Clinician Unavailable Rj Henry Attending Clinician Unavailable COURTNEY CALDERON Attending Clinician Unavailable LADONNA JOYNER Attending Clinician Unavailable MARIUZS JARRELL Attending Clinician Unavailable Pili Womack MD, [place] Attending Clinician Aleksander Martinez Attending Clinician Mookie Matthew Attending Clinician Carlos Valdivia Attending Clinician Rosa Tinajero MD Attending Clinician Unavailable Pete Nicole MD Attending Clinician Mohan Dennison MD Attending Clinician PETE NICOLE Attending Clinician Unavailable ARLEY ALEJANDRE JR. Attending Clinician Unavailable Leoncio Yates MD Attending Clinician Karen Vela MD Attending Clinician Todd Agudelo Attending Clinician ROSA TINAJERO Attending Clinician Unavailable CHUCKIE WHITE Attending Clinician Unavailable Jose Raul Alston DPM Attending Clinician Roscoe Vidal MD Attending Clinician Erlinda Perera MD Attending Clinician MOHAN DENNISON Attending Clinician Unavailable Mariusz Jarrell MD Attending Clinician [phone] Chuckie White MD Attending Clinician Roseline Landry NP Attending Clinician ROSELINE LANDRY Attending Clinician Unavailable CHICO PARRISH Attending Clinician Unavailable AMRIUSZ JARRELL Attending Clinician Unavailable STEVEN ODOM Attending Clinician Unavailable Steven Perez Attending Clinician MOHAN DENNISON Attending Clinician Unavailable Khai Alvarado MD Attending Clinician CARLOS VALDIVIA Attending Clinician Unavailable Kalen Steiner MD Attending Clinician Parag OGLESBY, Ruth Kaufman Attending Clinician KATHY SWEENEY Attending Clinician Unavailable FALLON SOLIMAN Attending Clinician Unavailable COURTNEY CALDERON Admitting Clinician Unavailable LADONNA JOYNER Admitting Clinician Unavailable MARIUSZ JARRELL Admitting Clinician Unavailable DONNY MILLS Admitting Clinician Unavailable KATHY SWEENEY Admitting Clinician Unavailable FALLON SOLIMAN Admitting Clinician Unavailable Payers Payer Name Policy Type Policy Number Effective Date Expiration Date 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 11-12 [facility] depression depression 00:00: of , single , single 00 Medici n episode episode e Nonalcohol Nonalcohol Disease Active [facility] ic fatty ic fatty 11-12 Colleg e liver liver 00:00: of disease disease 00 Medicin e Primary Primary Disease Active [facility] insomnia insomnia 07 Colleg e 00:00: of 00 Medicin e Essential Essential Disease Active [facility] hypertensi hypertensi 11-12 Co llege on on 00:00: of 00 Medicin e Scrotolith Scrotolith Disease Active [facility] 8-25 College 00:00: of 00 Medicin e PAD PAD Disease Active [facility] (periphera (periphera 8-09 Co llege l artery l artery 00:00: of disease) disease) 00 Medici n (HCCode) (HCCode) e S/P CABG x S/P CABG x Disease Active [facility] (Yumiko 1 (Yumiko 7-08 [facility] 05[facility] 05[facility]13[facility]21[facility] 00:00: Medical 00 [place] Chest pain Chest pain Disease [facility] CAD CAD Disease Active [facility] (coronary (coronary 6-28 [facility] artery artery 00:00: Medical disease) disease) 00 [place] Coronary Coronary Disease Active [facility] artery artery 5-18 [facility] disease of disease of 00:00: of inaja inaja 00 Medicin artery of artery of e inaja inaja heart 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 (HCCode) (HCCode) Abnormal Abnormal Disease Active [facility] findings findings 5-18 Colleg e on on 00:00: of diagnostic diagnostic 00 Me dicin imaging of imaging of e heart and heart and coronary coronary circulatio circulatio n n Orchitis Orchitis Disease Active [facility] r and and 4-28 College epididymit epididymit 00:00: of is is 00 Medicin e Carotid Carotid Disease Active [facility] artery artery 3-28 College disease disease 00:00: of (HCCode) (HCCode) 00 Medici n e S/P S/P Disease Active [facility] angiogram angiogram 3-28 Mina ege of of 00:00: of extremity extremity 00 Medi aleksandra e PAD PAD Disease Active [facility] St (periphera (periphera 3-05 [facility] l artery l artery 00:00: Medica l disease) disease) 00 Center PAD PAD Disease Active [facility] (periphera (periphera 2-01 Co llege l artery l artery 00:00: of disease) disease) 00 Medici n (HCCode) (HCCode) e PVD PVD Disease Active [facility] (periphera (periphera 2-01 Co llege l vascular l vascular 00:00: of disease) disease) 00 Medici n (HCCode) (HCCode) e Benign Benign Disease Active [facility] localized localized 1-27 Mina ege prostatic prostatic 00:00: of hyperplasi hyperplasi 00 Me dicin a with a with e lower lower urinary urinary tract tract symptoms symptoms (LUTS) (LUTS) Screening Screening Disease Active [place] [facility] for viral for viral 6-18 Mina ege disease disease 00:00: of 00 Medicin e Chest pain Chest pain Disease Active [facility] 6-18 [facility] 00:00: of 00 Medicin e Leg length Leg length Disease Active [facility] discrepanc discrepanc 3-18 Co llege y y 00:00: of 00 Medicin e Right hip Right hip Disease Active [place] [facility] pain pain 3-18 College 00:00: of 00 Medicin e Primary Primary Disease Active [facility] osteoarthr osteoarthr 3-18 Co llege itis of itis of 00:00: of right hip right hip 00 Medi aleksandra e Right leg Right leg Disease Active [place] [facility] pain pain 3-18 College 00:00: of 00 Medicin e PFO PFO Disease Active 2018-11 [facility] (patent (patent 218 College foramen foramen 00:00: of ovale) ovale) 00 Medicin e Numbness Numbness Disease Active 2018-11 [place] and and 2-18 College tingling tingling 00:00: of 00 Medicin e Complicate Complicate Disease Active [facility] migraine d migraine 5-04 [facility] 00:00: Medical 00 Center TIA TIA Disease Active [facility] (transient (transient 5-03 [facility] ischemic ischemic 00:00: Medica l attack) attack) 00 Center Stroke Stroke Disease Active [facility] (cerebrum) (cerebrum) 4-27 [facility] 00:00: Medical 00 Center 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[facility] 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 00:00: of n n 00 Medicin e Nodule of Nodule of Disease Active [place] [facility] scrotum scrotum 2-28 College 00:00: of 00 Medicin e Arterioscl Arteriosc Problem Active 2022-07-22 Memoria erotic lerotic 05:23:32 l vascular vascular [place] n disease disease (disorder) (disorder) Active Problem 07/22/2022 [facility] [place] Gastroesop Gastroeso Problem Active 2022-07-22 Memoria hageal phageal 05:23:32 l reflux reflux Adrian disease disease (disorder) (disorder) Active Problem 07/22/2022 [facility] [place] Headache Headache Problem Active 2022-07-22 Memoria (finding) (finding) 05:23:32 l Active Adrian Problem 07/22/2022 [facility] [place] Hyperlipid Hyperlipi Problem Active 2022-07-22 Memoria emia demia 05:23:32 l (disorder) (disorder) He rmann Active Problem 07/22/2022 [facility] [place] Hypertensi Hypertens Problem Active 2022-07-22 Memoria ve dustin 05:23:32 l disorder, disorder, Herm regine systemic systemic arterial arterial (disorder) (disorder) Active Problem 07/22/2022 [facility] [place] Lumbar Lumbar Problem Active 2022-07-22 Frederick enriqueta spondylosi spondylosi 05:23:32 l s s [place] (disorder) (disorder) Active Problem 07/22/2022 [facility] [place] Numbness Numbness Problem Active 2022-07-22 Memoria of foot of foot 05:23:32 l (finding) (finding) Herm regine Active Problem 07/22/2022 [facility] [place] Pain in Pain in Problem Active 2022-07-22 Me moria lower limb lower limb 05:23:32 l (finding) (finding) Herm regine Active Problem 07/22/2022 [facility] [place] Paresthesi Paresthes Problem Active 2022-07-22 Memoria a ia 05:23:32 l (finding) (finding) Herm regine Active Problem 07/22/2022 [facility] [place] Peripheral Periphera Problem Active 2022-07-22 Memoria nerve l nerve 05:23:32 l disease disease Adrian (disorder) (disorder) Active Problem 07/22/2022 [facility] R10.84 - R10.84 - Diagnosis Active 2021-12-23 Memoria GENERALIZE GENERALIZE 21:12:00 l D D [place] ABDOMINAL ABDOMINAL PAIN R14. PAIN R14. Active [facility] [place] ABDOMINAL ABDOMINAL Diagnosis Active 2022-06-24 Memoria DISTENSION DISTENSION 10:12:00 l (GASEOUS) (GASEOUS) Herm regine Active [facility] CONSTIPATI CONSTIPAT Diagnosis Active 2022-06-24 Memoria ON, ION, 10:12:00 l UNSPECIFIE UNSPECIFIE He rmann D D Active [facility] FATTY FATTY Diagnosis Active 2022-06-24 Mem oria (CHANGE (CHANGE 10:12:00 l OF) LIVER, OF) LIVER, He rmann NOT NOT ELSEWHERE ELSEWHERE C C Active [facility] No known No known Disease Metho di active active st problems problems Hospit a l Acute Acute Disease Active [facility] postoperat postoperat [facility] dustin pain dustin pain Medica l Center Atelectasi Atelectasi Disease Active [facility] Allergies, Adverse Reactions, Alerts Allergy Allergy Status Severity Reaction(s) Onset Inactive Treating Comm ents Source Name Type Date Date Clinician NO KNOWN Allergy Active [facility] Family [facility] Family Member Diagnosis Comments Start Date Stop Date Source Natural father Diabetes [facility] Natural father Stroke [facility] Natural mother Diabetes [facility] Social History Social Habit Start Date Stop Date Quantity Comments Source History of tobacco Passive smoker [facility] of use Medicine [facility] Alcohol Std Drinks Medica Center History [facility] Alcohol Binge Medical Tere ter Exposure to 2022-04-17 2022-04-27 Not sure University SARS-CoV-2 (event) 00:00:00 14:08:00 [facility] Tobacco Comment 2022-03-29 2022-03-29 stopped in 2018 [facility] 00:00:00 00:00:00 Medicine Social History 2022-03-14 2022-03-14 [facility] norman 18:48:02 18:48:02 Alcohol intake 2021-07-07 2021-07-07 Ex-drinker [facility] es 00:00:00 00:00:00 (finding) Medical Center History SDOH 2019-03-03 2019-03-[address] [facility] Alcohol Frequency 00:00:00 00:00:00 Medical Center Cigarette 2019-03-02 2019-03-[address] [facility] pack-years 00:00:00 00:00:00 Medical Center Tobacco use and 2019-03-02 2019-03-[address] [facility] exposure 00:00:00 00:00:00 Medical Center History SDOH 2019-03-02 2019-03-02 quit [address] [facility] Alcohol Comment 00:00:00 00:00:00 ago Medical C enter Cigarettes smoked 2019-03-02 2019-03-[address] [facility] current (pack per 00:00:00 00:00:00 Medical Center day) - Reported Sex Assigned At [address] [facility] 00:00:00 00:00:00 Medical Center Smoking Status Start Date Stop Date Source Tobacco smoking [facility] consumption unknown Ex-smoker 2022-05-06 00:00:00 2022-05-06 [facility] ge of 00:00:00 Medicine Current every day smoker 2017-09-25 00:00:00 [facility] Medications Ordered Filled Start Stop Current Ordering Indication Dosage Frequency Signature Comments Components Source Medication Medication Date Date Medication? Clinician (SIG) Name Name Aspirin 81 Yes [facility] MG tablet - [facility] 09:58: of 40 Medicin e pantoprazol Yes 20mg Take 20 mg Gam[facility]iel e 9-21 by mouth [facility] (PROTONIX) 09:58: daily. of 20 MG 40 Medicin tablet e HYDROCORTIS Yes Take by [facility] OR - mouth. [facility] 09:57: of 13 Medicin e hydrocortis 2021-[id number] 25 [facility] one 9-21 mg [facility] (ANUSOL-HC) 00:00: rectally of 25 MG 00 every 12 Medicin suppository hours. e Hydrocortis 2021-0 Yes [id number] Apply to [facility] one, -21 affected College Perianal, 00:00: to of 2.5 % CREA 00 affected Medic in area twice e a day until hemorrhoid improves. clarithromy Yes TAKE 1 [facility] aleksandra 9-12 TABLET BY [facility] (BIAXIN) 00:00: MOUTH of 500 MG 00 TWICE A Medicin tablet DAY e amoxicillin Yes TAKE 2 [facility] (AMOXIL) 9-12 CAPSULES College 500 mg 00:00: BY MOUTH of capsule 00 TWICE A Medicin DAY e tizanidine Yes [id number] TAKE 1 [facility] (ZANAFLEX) 07-14 TABLET BY [facility] ege 2 MG tablet 00:00: MOUTH of 00 THREE Medicin TIMES A e DAY NEEDED FOR PAIN PREGABALIN No 50 50MG CAP 07-12 00:00: 00 Aspirin 81 0 Yes [facility] MG tablet -25 [facility] 09:27: of 20 Medicin e pantoprazol Yes 20mg Take 20 mg Gam[facility]iel e 8-25 by mouth [facility] (PROTONIX) 09:27: daily. of 20 MG 20 Medicin tablet e methocarbam 2021- No [id number] 500mg Take 1 [facility] ol 8-25 08-25 Tablet by [facility] (ROBAXIN) 00:00: 00:00 mouth 2 of 500 MG 00 :00 times Medicin tablet daily as e needed (back pain). Topamax 25 No 25 mg = 1 Me moria mg oral 8-23 tab, PO, l tablet 23:16: Bedtime, # Francesca nn 00 90 tab, 1 Refill(s), Pharmacy: [email or web address] #[id number], 160.02, cm, 06/02/22 14:39:00 CDT, Height, 81.818, kg, 06/02/22 14:39:00 CDT, Weight Topamax 25 0 No 25 mg = 1 Me moria mg oral 8-23 tab, PO, l tablet 23:16: Bedtime, # Francesca nn 00 90 tab, 1 Refill(s), Pharmacy: [email or web address] #[id number], 160.02, cm, 06/02/22 14:39:00 CDT, Height, 81.818, kg, 06/02/22 14:39:00 CDT, Weight Topamax 25 0 No 25 mg = 1 Me moria mg oral 8-23 tab, PO, l tablet 15:36: Bedtime, X Francesca nn 00 30 day, # 30 tab, 2 Refill(s), Pharmacy: [facility] #[id number], 160.02, cm, 06/02/22 14:39:00 CDT, Height, 81.818, kg, 06/02/22 14:39:00 CDT, Weight Topamax 25 2021-0 No 25 mg = 1 Me moria mg oral 8-23 tab, PO, l tablet 15:36: Bedtime, X Francesca nn day, # 30 tab, 2 Refill(s), Pharmacy: [facility] #[id number], 160.02, cm, 06/02/22 14:39:00 CDT, Height, 81.818, kg, 06/02/22 14:39:00 CDT, Weight topiramate 2021-0 Yes [facility] (TOPAMAX) 8-23 College 25 MG 00:00: of tablet 00 Medicin e topiramate 2021-0 Yes [facility] (TOPAMAX) 8 College 25 MG 00:00: of tablet 00 Medicin e Aspirin 81 2021-0 Yes [facility] MG tablet 8- College 09:10: of 48 Medicin e pantoprazol 2021-0 Yes 20mg Take 20 mg [facility] e -05 by mouth College (PROTONIX) 09:10: daily. of 20 MG 48 Medicin tablet e Aspirin 81 2021-0 Yes [facility] MG tablet - College 09:33: of 22 Medicin e pantoprazol 2-0 Yes 20mg Take 20 mg [facility] e -12 by mouth College (PROTONIX) 09:33: daily. of 20 MG 22 Medicin tablet e Aspirin 81 2021-0 Yes [facility] MG tablet - College 09:33: of 22 Medicin e pantoprazol 2021-0 Yes 20mg Take 20 mg [facility] e -12 by mouth College (PROTONIX) 09:33: daily. of 20 MG 22 Medicin tablet e pregabalin 2022-0 Yes 1 tab bid [facility] (LYRICA) 50 7-12 College MG capsule 00:00: of 00 Medicin e pregabalin 2022-0 2022- No 1 tab bid [facility] (LYRICA) 50 7-12 08-25 College MG capsule 00:00: 00:00 of 00 :00 Medicin e Aspirin 81 2022-0 Yes [facility] MG tablet 05-06 [facility] 10:04: of 06 Medicin e pantoprazol 0 Yes 20mg Take 20 mg Gam[facility]iel e 05-06 by mouth [facility] (PROTONIX) 10:04: daily. of 20 MG 06 Medicin tablet e methylPREDN 0 2021- No Take as Ba genia Puentes 4 05-06-12 directed Colle ge MG TBPK 00:00: 00:00 to of 00 :00 completion Medicin e Aspirin 81 0 Yes [facility] MG tablet 05-04 [facility] 15:01: of 34 Medicin e pantoprazol 0 Yes 20mg Take 20 mg Gamaliel e 6-29 by mouth [facility] (PROTONIX) 15:01: daily. of 20 MG 34 Medicin tablet e atorvastati 0 Yes [id number] 40mg Take 1 [facility] n (LIPITOR) 6-29 Tablet by Col lege 40 MG 00:00: mouth of tablet 00 daily. Medicin e amlodipine 0 Yes [id number] TAKE 1 [facility] (NORVASC) 6-29 TABLET BY Colle ge 10 MG 00:00: MOUTH of tablet 00 EVERY DAY Medicin e metoprolol 2021-0 Yes [id number] TAKE 1 [facility] (TOPROL-XL) 6-29 TABLET BY Col lege 25 MG XL 00:00: MOUTH of tablet 00 EVERY DAY Medicin FOR 90 e DAYS losartan 2021-0 Yes [id number] TAKE 1 [place] [facility] (COZAAR) 6-29 TABLET BY Colleg e 100 MG 00:00: MOUTH of tablet 00 EVERY DAY Medicin e atorvastati 2021-0 Yes [id number] 40mg Take 1 [facility] n (LIPITOR) 6-29 Tablet by Col lege 40 MG 00:00: mouth of tablet 00 daily. Medicin e amlodipine 2021-0 Yes [id number] TAKE 1 [facility] (NORVASC) 6-29 TABLET BY Colle ge 10 MG 00:00: MOUTH of tablet 00 EVERY DAY Medicin e metoprolol 2021-0 Yes [id number] TAKE 1 [facility] (TOPROL-XL) 6-29 TABLET BY Col lege 25 MG XL 00:00: MOUTH of tablet 00 EVERY DAY Medicin FOR 90 e DAYS losartan 2021-0 Yes [id number] TAKE 1 [place] [facility] (COZAAR) 6-29 TABLET BY Colleg e 100 MG 00:00: MOUTH of tablet 00 EVERY DAY Medicin e atorvastati 2021-0 Yes [id number] 40mg Take 1 [facility] n (LIPITOR) 6-29 Tablet by Col lege 40 MG 00:00: mouth of tablet 00 daily. Medicin e amlodipine 2021-0 Yes [id number] TAKE 1 [facility] (NORVASC) 6-29 TABLET BY Colle ge 10 MG 00:00: MOUTH of tablet 00 EVERY DAY Medicin e metoprolol 2021-0 Yes [id number] TAKE 1 [facility] (TOPROL-XL) 6-29 TABLET BY Col lege 25 MG XL 00:00: MOUTH of tablet 00 EVERY DAY Medicin FOR 90 e DAYS losartan 2021-0 Yes [id number] TAKE 1 [place] [facility] (COZAAR) 6-29 TABLET BY Colleg e 100 MG 00:00: MOUTH of tablet 00 EVERY DAY Medicin e atorvastati 2021-0 Yes [id number] 40mg Take 1 [facility] n (LIPITOR) 6-29 Tablet by Col lege 40 MG 00:00: mouth of tablet 00 daily. Medicin e amlodipine 2021-0 Yes [id number] TAKE 1 [facility] (NORVASC) 6-29 TABLET BY Colle ge 10 MG 00:00: MOUTH of tablet 00 EVERY DAY Medicin e metoprolol 2021-0 Yes [id number] TAKE 1 [facility] (TOPROL-XL) 6-29 TABLET BY Col lege 25 MG XL 00:00: MOUTH of tablet 00 EVERY DAY Medicin FOR 90 e DAYS losartan 2021-0 Yes [id number] TAKE 1 [place] [facility] (COZAAR) 6-29 TABLET BY Colleg e 100 MG 00:00: MOUTH of tablet 00 EVERY DAY Medicin e atorvastati 2021-0 Yes [id number] 40mg Take 1 [facility] n (LIPITOR) 6-29 Tablet by Col lege 40 MG 00:00: mouth of tablet 00 daily. Medicin e amlodipine 2021-0 Yes [id number] TAKE 1 [facility] (NORVASC) 6-29 TABLET BY Colle ge 10 MG 00:00: MOUTH of tablet 00 EVERY DAY Medicin e metoprolol 2021-0 Yes [id number] TAKE 1 [facility] (TOPROL-XL) 6-29 TABLET BY Col lege 25 MG XL 00:00: MOUTH of tablet 00 EVERY DAY Medicin FOR 90 e DAYS losartan 2021-0 Yes [id number] TAKE 1 [place] [facility] (COZAAR) 6-29 TABLET BY Colleg e 100 MG 00:00: MOUTH of tablet 00 EVERY DAY Medicin e atorvastati 2021-0 Yes [id number] 40mg Take 1 [facility] n (LIPITOR) 6-29 Tablet by Col lege 40 MG 00:00: mouth of tablet 00 daily. Medicin e amlodipine 0 Yes [id number] TAKE 1 [facility] (NORVASC) 6-29 TABLET BY Colle ge 10 MG 00:00: MOUTH of tablet 00 EVERY DAY Medicin e metoprolol 0 Yes [id number] TAKE 1 [facility] (TOPROL-XL) 6-29 TABLET BY Col lege 25 MG XL 00:00: MOUTH of tablet 00 EVERY DAY Medicin FOR 90 e DAYS losartan 0 Yes [id number] TAKE 1 [place] [facility] (COZAAR) 6-29 TABLET BY Colleg e 100 MG 00:00: MOUTH of tablet 00 EVERY DAY Medicin e atorvastati 0 Yes [id number] 40mg Take 1 [facility] n (LIPITOR) 6-29 Tablet by Col lege 40 MG 00:00: mouth of tablet 00 daily. Medicin e amlodipine 0 Yes [id number] TAKE 1 [facility] (NORVASC) 6-29 TABLET BY Colle ge 10 MG 00:00: MOUTH of tablet 00 EVERY DAY Medicin e metoprolol 2021-0 Yes [id number] TAKE 1 [facility] (TOPROL-XL) 6-29 TABLET BY Col lege 25 MG XL 00:00: MOUTH of tablet 00 EVERY DAY Medicin FOR 90 e DAYS losartan 0 Yes [id number] TAKE 1 [place] [facility] (COZAAR) 6-29 TABLET BY Colleg e 100 MG 00:00: MOUTH of tablet 00 EVERY DAY Medicin e losartan 2021-0 2021- No [id number] TAKE 1 [facility] (COZAAR) 6-29 06-29 TABLET BY Colle ge 100 MG 00:00: 00:00 MOUTH of tablet 00 :00 EVERY DAY Medicin e predniSONE 0 Yes TAKE 1 Memor ia 20 mg oral 6-16 TABLET BY l tablet 21:18: MOUTH [place] 00 EVERY DAY FOR 5 DAYS clonazePAM 2021-0 Yes TAKE 1 Memor ia 0.5 mg oral 6-16 TABLET BY l tablet 21:18: MOUTH [place] 00 EVERY DAY NEEDED pregabalin 2021-0 Yes TAKE 1 Memor ia 75 mg oral 6-16 CAPSULE BY l capsule 21:18: MOUTH [place] 00 TWICE A DAY predniSONE 2021-0 Yes TAKE 1 Memor ia 20 mg oral 6-16 TABLET BY l tablet 21:18: MOUTH [place] 00 EVERY DAY FOR 5 DAYS clonazePAM 2-0 Yes TAKE 1 Memor ia 0.5 mg oral 6-16 TABLET BY l tablet 21:18: MOUTH Adrian 00 EVERY DAY NEEDED pregabalin 2021-0 Yes TAKE 1 Memor ia 75 mg oral 6-16 CAPSULE BY l capsule 21:18: MOUTH [place] 00 TWICE A DAY No known 2021-0 No No known Metho di medications 6-[address] [facility] No known 2021-0 No No known Metho di medications 6-[address] [facility] l No known 2021-0 No No known Metho di medications 6-[address] 17:35: [facility] l predniSONE 2-0 Yes TAKE 1 [facility] (DELTASONE) 6-13 [...] pantoprazol 2021-0 Yes 20mg Take 20 mg [facility] e -07 by mouth College (PROTONIX) 14:07: daily. of 20 MG 58 Medicin tablet e clonazepam 2021-0 Yes [facility] (KLONOPIN) 04-06 [facility] 0.5 MG 00:00: of tablet 00 Medicin e clonazepam 2021-0 Yes [facility] (KLONOPIN) 04-06 [facility] 0.5 MG 00:00: of tablet 00 Medicin e clonazepam 2021-0 Yes [facility] (KLONOPIN) 04-06 [facility] 0.5 MG 00:00: of tablet 00 Medicin e clonazepam 2-0 2022- No [facility] (KLONOPIN) 6-01 07-12 [facility] 0.5 MG 00:00: 00:00 of tablet 00 :00 Medicin e Aspirin 81 2-0 Yes [facility] MG tablet -24 College 14:57: of 55 Medicin e pantoprazol 2-0 Yes 20mg Take 20 mg [facility] e 5-24 by mouth [facility] (PROTONIX) 14:57: daily. of 20 MG 55 Medicin tablet e pregabalin 2-0 Yes 75mg Take 1 [facility] (LYRICA) 75 5-24 capsule by Co llege MG capsule 00:00: mouth two of 00 times Medicin daily. e pregabalin 2022-0 Yes 75mg Take 1 [facility] (LYRICA) 75 5-24 capsule by Co llege MG capsule 00:00: mouth two of 00 times Medicin daily. e pregabalin 2-0 Yes 75mg Take 1 [facility] (LYRICA) [...] of 00 times Medicin daily. e pregabalin 2-0 2022- No 75mg Take 1 [facility] (LYRICA) 75 5-24 08-25 capsule by C ollege MG capsule 00:00: 00:00 mouth two o f 00 :00 times Medicin daily. e meloxicam Yes TAKE 1 [facility] (MOBIC) 7.5 5-19 TABLET BY Col lege MG tablet 00:00: MOUTH of 00 EVERY DAY Medicin FOR 30 e DAYS meloxicam Yes TAKE 1 [facility] (MOBIC) 7.5 5-19 TABLET BY Col lege MG tablet 00:00: MOUTH of 00 EVERY DAY Medicin FOR 30 e DAYS meloxicam 0 2021- No TAKE 1 [facility] (MOBIC) 7.5 5-19 07-12 TABLET BY Co llege MG tablet 00:00: 00:00 MOUTH of 00 :00 EVERY DAY Medicin FOR 30 e DAYS Bentyl 10 Yes 10 mg = 1 Mem oria mg oral 5-18 cap, PO, l capsule 21:57: BID, # 30 Francesca nn 00 cap, 0 Refill(s), Pharmacy: [facility] [facility] #[id number], 160.02, cm, 03/23/22 15:13:00 CDT, Height, 79.545, kg, 03/23/22 15:13:00 CDT, Weight Bentyl 10 Yes 10 mg = 1 [facility] mg oral 5-18 cap, PO, l capsule 21:57: BID, # 30 Francesca nn 00 cap, 0 Refill(s), Pharmacy: [facility] #[id number], 160.02, cm, 03/23/22 15:13:00 CDT, Height, 79.545, kg, 03/23/22 15:13:00 CDT, Weight dicyclomine Yes TAKE 1 [facility] (BENTYL) 10 5-18 CAPSULE BY [facility] MG capsule 00:00: MOUTH of 00 TWICE A Medicin DAY FOR 15 e DAYS dicyclomine Yes TAKE 1 [facility] (BENTYL) 10 5-18 CAPSULE BY [facility] MG capsule 00:00: MOUTH of 00 TWICE A Medicin DAY FOR 15 e DAYS dicyclomine 0 2021- No TAKE 1 [place] [facility] (BENTYL) 10 5-18 07-12 CAPSULE BY C [facility] MG capsule 00:00: 00:00 MOUTH of 00 :00 TWICE A Medicin DAY FOR 15 e DAYS Aspirin 81 2022-0 Yes [facility] MG tablet 5-13 [facility] 10:16: of 04 Medicin e pantoprazol Yes 20mg Take 20 mg [facility] e 5-13 by mouth [facility] (PROTONIX) 10:16: daily. of 20 MG 04 Medicin tablet e Aspirin 81 0 Yes [facility] MG tablet 5-11 [facility] 14:40: of 02 Medicin e pantoprazol Yes 20mg Take 20 mg [facility] e 5-11 by mouth [facility] (PROTONIX) 14:40: daily. of 20 MG 02 Medicin tablet e metoprolol 2021- No [id number] Take 1 [facility] (TOPROL-XL) 5-11 05-11 tablet Colle ge 50 MG XL 00:00: 00:00 once a day of tablet 00 :00 Medicin e mirtazapine Yes TAKE 1 [facility] enriqueta 30 mg oral 5-09 TABLET BY l tablet 19:02: MOUTH [place] 00 EVERY DAY AT BEDTIME FOR 90 DAYS Metoprolol Yes TAKE 1 [facility] Succinate 5-09 TABLET BY l ER 25 mg 19:02: MOUTH [place] oral 00 EVERY DAY tablet, FOR 90 extended DAYS release amLODIPine Yes TAKE 1 [facility] 10 mg oral 5-09 TABLET BY l tablet 19:02: MOUTH [place] 00 EVERY DAY pantoprazol Yes TAKE 1 [facility] e 20 mg 5-09 TABLET BY l oral 19:02: MOUTH ONCE [place] enteric 00 A DAY 30 coated MINUTES tablet BEFORE BREAKFAST losartan Yes TAKE 1 [facility] 100 mg oral 5-09 TABLET BY l tablet 19:02: MOUTH Adrian 00 EVERY DAY atorvastati Yes TAKE 1 [facility] n 40 mg 5-09 TABLET BY l oral tablet 19:02: MOUTH Francesca nn 00 EVERY DAY clopidogrel Yes TAKE 1 [facility] 75 mg oral 5-09 TABLET BY l tablet 19:02: MOUTH [place] 00 EVERY DAY aspirin 81 0 Yes 81 mg = 1 [facility] moria mg oral 5-09 cap, PO, l capsule 19:02: Daily, 0 [place] n 00 Refill(s) mirtazapine Yes TAKE 1 [facility] 30 mg oral 5-09 TABLET BY l tablet 19:02: MOUTH Adrian 00 EVERY DAY AT BEDTIME FOR 90 DAYS Metoprolol Yes TAKE 1 [facility] Su[facility]inate 5-09 TABLET BY l ER 25 mg 19:02: MOUTH [place] oral 00 EVERY DAY tablet, FOR 90 extended DAYS release amLODIPine Yes TAKE 1 [facility] 10 mg oral 5-09 TABLET BY l tablet 19:02: MOUTH Adrian 00 EVERY DAY pantoprazol Yes TAKE 1 [facility] e 20 mg 5-09 TABLET BY l oral 19:02: MOUTH ONCE [facility] 00 A DAY 30 coated MINUTES tablet BEFORE BREAKFAST losartan Yes TAKE 1 [facility] 100 mg oral 5-09 TABLET BY l tablet 19:02: MOUTH [place] 00 EVERY DAY atorvastati Yes TAKE 1 [facility] n 40 mg 5-09 TABLET BY l oral tablet 19:02: MOUTH Francesca nn 00 EVERY DAY clopidogrel Yes TAKE 1 [facility] 75 mg oral 5-09 TABLET BY l tablet 19:02: MOUTH Adrian 00 EVERY DAY aspirin 81 Yes 81 mg = 1 [facility] mor[facility] mg oral 5-09 cap, PO, l capsule 19:02: Daily, 0 [place] n 00 Refill(s) metoprolol Yes TAKE 1 [facility] (TOPROL-XL) [...] No TAKE 1 [facility] (TOPROL-XL) 4-27 06-29 TABLET BY [facility]lege 25 MG XL 00:00: 00:00 MOUTH of tablet 00 :00 EVERY DAY Medicin FOR 90 e DAYS Aspirin 81 Yes [facility] MG tablet 4-11 [facility] 10:58: of 03 Medicin e pantoprazol 2021-0 Yes 20mg Take 20 mg [facility] e 4-11 by mouth [facility] (PROTONIX) 10:58: daily. of 20 MG 03 Medicin tablet e Aspirin 81 2022-0 Yes [facility] MG tablet 2-14 College 12:59: of 13 Medicin e pantoprazol 2021-0 Yes 20mg Take 20 mg [facility] e 2-14 by mouth [facility] (PROTONIX) 12:59: daily. of 20 MG 13 Medicin tablet e Aspirin 81 2021-0 Yes [facility] MG tablet 2-14 College 12:59: of 13 Medicin e pantoprazol 2021-0 Yes 20mg Take 20 mg [facility] e 2-14 by mouth [facility] (PROTONIX) 12:59: daily. of 20 MG 13 Medicin tablet e Aspirin 81 2021-0 Yes [facility] MG tablet 2-04 [facility] 09:15: of 36 Medicin e pantoprazol 2021-0 Yes 20mg Take 20 mg [facility] e 2-04 by mouth [facility] (PROTONIX) 09:15: daily. of 20 MG 36 Medicin tablet e Aspirin 81 2021-0 Yes [facility] MG tablet 1-12 [facility] 13:38: of 09 Medicin e pantoprazol 2021-0 Yes 20mg Take 20 mg [facility] e -12 by mouth [facility] (PROTONIX) 13:38: daily. of 20 MG 09 [...] Medicin AT BEDTIME e NEEDED Aspirin 81 2021-0 Yes [facility] MG tablet 11-12 [facility] 16:19: of 06 Medicin e pantoprazol 2021-0 Yes 20mg Take 20 mg [facility] e 11-12 by mouth [facility] (PROTONIX) 16:19: daily. of 20 MG 06 Medicin tablet e gabapentin 2021-0 Yes [id number] 100mg Take 1 [facility] (NEURONTIN) 1-07 capsule by [facility] llege 100 MG 00:00: mouth at of capsule 00 bedtime. Medicin e gabapentin 2021-0 Yes [id number] 100mg Take 1 [facility] (NEURONTIN) 1-07 capsule by [facility] 100 MG 00:00: mouth at of capsule 00 bedtime. Medicin e gabapentin 2021-0 Yes [id number] 100mg Take 1 [facility] (NEURONTIN) 1-07 capsule by [facility]lege 100 MG 00:00: mouth at of capsule 00 bedtime. Medicin e gabapentin 2021-0 Yes [id number] 100mg Take 1 [facility] (NEURONTIN) 1-07 capsule by [facility] 100 MG 00:00: mouth at of capsule 00 bedtime. Medicin e gabapentin 2021-0 Yes [id number] 100mg Take 1 [facility] (NEURONTIN) 1-07 capsule by [facility]lege 100 MG 00:00: mouth at of capsule 00 bedtime. Medicin e gabapentin 2021-0 2- No [id number] 100mg Take 1 [facility] (NEURONTIN) 1-07 04-11 capsule by C [facility] 100 MG 00:00: 00:00 mouth at of capsule 00 :00 bedtime. Medicin e Aspirin 81 2020-11 Yes [facility] MG tablet 11-27 [facility] 14:41: of 30 Medicin e pantoprazol 2020-11 Yes 20mg Take 20 mg [facility] e 11-27 by mouth [facility] (PROTONIX) 14:41: daily. of 20 MG 30 Medicin tablet e Aspirin 81 2020-11 Yes [facility] MG tablet 11-22 [facility] 15:15: of 58 Medicin e pantoprazol 2020-11 Yes 20mg Take 20 mg [facility] e 17 by mouth [facility] (PROTONIX) 15:15: daily. of 20 MG 58 Medicin tablet e phenazopyri 2020-11 Yes [id number] Take by [facility] 11-22 [facility] (PYRIDIUM) 00:00: every 8 of 200 MG 00 hours PRN. Medicin tablet e phenazopyri 2020-11 No [id number] Take by [facility] 11-22 [facility] [...] MOUTH of 00 DAILY Medicin e clopidogrel 2021-1 2022- No TAKE 1 [place] [facility] (PLAVIX) 75 1-11 06-07 TABLET BY Co llege MG Tablet 00:00: 00:00 MOUTH of 00 :00 DAILY Medicin e Aspirin 2020-11 Yes [facility] (ASPIR-LOW) 0-26 [facility] 81 MG 10:44: of tablet 36 Medicin e pantoprazol 2020-11 Yes 20mg Take 20 mg [facility] e 0-26 by mouth [facility] (PROTONIX) 10:44: daily. of 20 MG 36 Medicin tablet e Aspirin 2020-11 Yes [facility] (ASPIR-LOW) 0-26 [facility] 81 MG 10:44: of tablet 36 Medicin e pantoprazol 2020-11 Yes 20mg Take 20 mg [facility] e 0-26 by mouth [facility] (PROTONIX) 10:44: daily. of 20 MG 36 Medicin tablet e atorvastati 2020-11 Yes TAKE [address] [facility] (LIPITOR) 0-15 TABLET BY Laura es 40 MG 00:00: MOUTH Medical tablet 00 NIGHTLY [place] atorvastati 2020-11 Yes TAKE [address] [facility] (LIPITOR) 0-15 TABLET BY Laura es 40 MG 00:00: MOUTH Medical tablet 00 NIGHTLY [place] atorvastati 2020-11 Yes TAKE [address] [facility] (LIPITOR) 0-15 TABLET BY Laura es 40 MG 00:00: MOUTH Medical tablet 00 NIGHTLY [place] atorvastati 2020- No TAKE [address] [facility] (LIPITOR) 9-15 10-15 TABLET BY Jackeline kes 40 MG 00:00: 00:00 MOUTH Medical tablet 00 :00 NIGHTLY [place] atorvastati 2020- No TAKE [address] [facility] (LIPITOR) 9-15 10-15 TABLET BY Jackeline kes 40 MG 00:00: 00:00 MOUTH Medical tablet 00 :00 NIGHTLY [place] atorvastati 2020- No TAKE [address] [facility] (LIPITOR) 9-15 10-15 TABLET BY Jackeline kes 40 MG 00:00: 00:00 MOUTH Medical tablet 00 :00 NIGHTLY [place] mirtazapine Yes 30mg QD Take [address] [facility] (REMERON) 9-01 by mouth [facility] 30 MG 11:38: nightly. Medical tablet [address] [place] [address] mirtazapine 2021-0 Yes 30mg QD Take [address] [facility] (REMERON) 9-01 by mouth [facility] 30 MG 11:38: nightly. Medical tablet 49 Center mirtazapine 0 Yes 30mg QD Take [address] [facility] (REMERON) 9-01 by mouth [facility] 30 MG 11:38: nightly. Medical tablet 49 Center amLODIPine 0 Yes 10mg QD Take [address] (NORVASC) 9-01 by mouth [facility] 10 MG 11:35: daily. Medical tablet 36 Center aspirin 81 0 Yes 1{tbl} QD Take [address] [facility] EC 9- tablet by [facility] tablet 11:35: mouth Medical 36 daily. Center pantoprazol 0 Yes 20mg QD Take [address] [facility] sodium 9- by mouth [facility] (PROTONIX 11:35: daily . Medic al ORAL) 36 Center polyethylen 0 Yes 17g QD Take [address] [facility] glycol 9-01 by mouth [facility] (GLYCOLAX) 11:35: daily. Medic al 17 gram 36 Center packet clopidogreL 0 Yes 75mg QD Take [address] [facility] (PLAVIX) 75 9-01 by mouth [facility] mg tablet 11:35: daily. Medica l 36 [place] amLODIPine 0 Yes 10mg QD Take [address] (NORVASC) 9- by mouth [facility] 10 MG 11:35: daily. Medical tablet 36 Center aspirin 81 0 Yes 1{tbl} QD Take [address] [facility] MG EC 9- tablet by [facility] tablet 11:35: mouth Medical 36 daily. Center pantoprazol 0 Yes 20mg QD Take [address] [facility] sodium 9-01 by mouth [facility] (PROTONIX 11:35: daily . Medic al ORAL) 36 Center polyethylen 0 Yes 17g QD Take [address] e glycol 9-01 by mouth [facility] (GLYCOLAX) 11:35: daily. Medic al 17 gram 36 Center packet clopidogreL 2020-0 Yes 75mg QD Take [address] [facility] (PLAVIX) 75 9-01 by mouth [facility] mg tablet 11:35: daily. Medica l 36 Center amLODIPine 0 Yes 10mg QD Take [address] (NORVASC) 9-01 by mouth [facility] 10 MG 11:35: daily. Medical tablet 36 [place] aspirin 81 Yes 1{tbl} QD Take [address] [facility] MG EC 07-07 tablet by [facility] tablet 11:35: mouth Medical 36 daily. Center pantoprazol Yes 20mg QD Take [address] [facility] e sodium 07-07 by mouth [facility] (PROTONIX 11:35: daily . Medic al ORAL) 36 Center polyethylen Yes 17g QD Take [address] e glycol 07-07 by mouth [facility] (GLYCOLAX) 11:35: daily. Medic al 17 gram 36 Center packet clopidogreL Yes 75mg QD Take [address] [facility] (PLAVIX) 75 07-07 by mouth [facility] mg tablet 11:35: daily. Medica l 36 Center Aspirin Yes [facility] (ASPIR-LOW) 8 College 81 MG 09:15: of tablet 11 Medicin e pantoprazol Yes 20mg Take 20 mg [facility] e 06-30 by mouth [facility] (PROTONIX) 09:15: daily. of 20 MG 11 Medicin tablet e tramadol 2020- No 50mg Take 50 mg [facility] (ULTRAM) 50 06-30- by mouth [facility] MG tablet 09:15: 00:00 every 6 of 07 :00 hours as Medicin needed for e Pain. acetaminoph 202- No 1{tbl} Take 1 [facility] en-codeine [...] 30mg 30 mg. [facility] (REMERON) 06-28 [facility] 15 MG 00:00: of tablet 00 Medicin e mirtazapine 2021- No 30mg 30 mg. [place] [facility] (REMERON) 06-28 02-04 [facility] 15 MG 00:00: 00:00 of tablet 00 :00 Medicin e clonazepam 2020- No [facility] (KLONOPIN) 06-28 1013 College 0.5 MG 00:00: 00:00 of tablet 00 :00 Medicin e acetaminoph Yes 1{tbl} Take 1 [facility] en-codeine -19 Tablet by Mina christopher (TYLENOL/CO 14:53: mouth of DEINE #3) 47 every 4 Medicin 300-30 MG hours as e per tablet needed. tramadol Yes 50mg Take 50 mg [place] [facility] (ULTRAM) 50 - by mouth Mina ege MG tablet 14:53: every 6 of 47 hours as Medicin needed for e Pain. Aspirin Yes [facility] (ASPIR-LOW) 8- College 81 MG 14:53: of tablet 33 Medicin e pantoprazol Yes 20mg Take 20 mg [facility] e 8-19 by mouth [facility] (PROTONIX) 14:53: daily. of 20 MG 33 Medicin tablet e metoprolol Yes [facility] 1 [facility] succ[facility]-17 TABLET BY H[facility] (TOPROL-XL) 00:00: MOUTH Medic al 100 MG 24 00 EVERY DAY Cente r hr tablet metoprolol Yes TAKE 1 [facility] succ[facility] 8-17 [facility] (TOPROL-XL) 00:00: MOUTH Medic al 100 MG 24 00 EVERY DAY Cente r hr tablet metoprolol Yes TAKE 1 [facility] succ[facility] 8-17 [facility] BY [facility] (TOPROL-XL) 00:00: MOUTH Medic al 100 MG 24 00 EVERY DAY Cente r hr tablet atorvastati 2020- No TAKE [address] [facility] (LIPITOR) 06-22-15 TABLET BY Jackeline kes 40 MG 00:00: 00:00 MOUTH Medical tablet 00 :00 NIGHTLY Center atorvastati 2020- No TAKE [address] [facility] (LIPITOR) 06-22-15 TABLET BY Jackeline kes 40 MG 00:00: 00:00 MOUTH Medical tablet 00 :00 NIGHTLY Center amlodipine Yes TAKE 1 [facility] (NORVASC) [...] tablet 00 EVERY DAY Medicin e amlodipine 2022- No TAKE 1 [facility] (NORVASC) 8-05 06-29 TABLET BY Mina ege 10 MG 00:00: 00:00 MOUTH of tablet 00 :00 EVERY DAY Medicin e traMADoL Yes 50mg Take [address] [facility] (ULTRAM) 50 7-28 tablet (50 Jackeline kes mg tablet 00:00: mg total) Med ical 00 by mouth Center every 8 (eight) hours as needed for Pain. Max Daily Amount: 150 mg acetaminoph 0 Yes 1{tbl} Take [address] [facility] en-codeine 7-28 tablet by Carl castillo (TYLENOL 00:00: mouth Medical #3) 300-30 00 every 4 Center mg per (four) tablet hours as needed for Pain. Max Daily Amount: 6 tablets traMADoL 0 Yes 50mg Take [address] [facility] (ULTRAM) 50 7-28 tablet (50 Jackeline kes mg tablet 00:00: mg total) Med ical 00 by mouth Center every 8 (eight) hours as needed for Pain. Max Daily Amount: 150 mg acetaminoph 2021-0 Yes 1{tbl} Take [address] en-codeine 7-28 tablet by Carl castillo (TYLENOL 00:00: mouth Medical #3) 300-30 00 every 4 Center mg per (four) tablet hours as needed for Pain. Max Daily Amount: 6 tablets traMADoL 0 Yes 50mg Take [address] [facility] (ULTRAM) 50 7-28 tablet (50 Jackeline kes mg tablet 00:00: mg total) Med ical 00 by mouth Center every 8 (eight) hours as needed for Pain. Max Daily Amount: 150 mg acetaminoph Yes 1{tbl} Take [address] en-codeine 7-28 tablet by Carl castillo (TYLENOL 00:00: mouth Medical #3) 300-30 00 every 4 Center mg per (four) tablet hours as needed for Pain. Max Daily Amount: 6 tablets Aspirin Yes [facility] (ASPIR-LOW) 7-27 College 81 MG 14:58: of tablet 24 Medicin e pantoprazol Yes 20mg Take 20 mg [facility] e 7-27 by mouth [facility] (PROTONIX) 14:58: daily. of 20 MG 24 Medicin tablet e gabapentin Yes 300mg Take 300 [facility] (NEURONTIN) 7-27 mg by [facility] 300 MG 14:58: mouth 3 of capsule 24 times Medicin daily. e acetaminoph Yes 1{tbl} Take 1 [facility] en-codeine 7-27 Tablet by Mina ege (TYLENOL/CO 14:58: mouth of DEINE #3) 24 every 4 Medicin 300-30 MG hours as e per tablet needed. tramadol Yes 50mg Take 50 mg [place] [facility] (ULTRAM) 50 7-27 by mouth Mina ege MG tablet 14:58: every 6 of 24 hours as Medicin needed for e Pain. atorvastati Yes [id number] 40mg Take 1 [facility] (LIPITOR) 7-27 Tablet by [facility] 40 MG 00:00: mouth of tablet 00 daily. Medicin e atorvastati Yes [id number] 40mg Take 1 [facility] (LIPITOR) 7-27 Tablet by [facility] 40 MG 00:00: mouth of tablet 00 daily. Medicin e atorvastati 2020-0 Yes [id number] 40mg Take 1 [facility] n (LIPITOR) 7-27 Tablet by Col [facility]ge 40 MG 00:00: mouth of tablet 00 daily. Medicin e metoprolol 2020-0 Yes [id number] 50mg Take 1 [facility] (TOPROL-XL) 7-27 Tablet by [facility] 50 MG XL 00:00: mouth two of tablet 00 times Medicin daily. e atorvastati 2020-0 Yes [id number] 40mg Take 1 [facility] (LIPITOR) 7-27 Tablet by [facility] 40 MG 00:00: mouth of tablet 00 daily. Medicin e metoprolol 2020-0 Yes [id number] 50mg Take 1 [facility] (TOPROL-XL) 7-27 Tablet by [facility] 50 MG XL 00:00: mouth two of tablet 00 times Medicin daily. e atorvastati 2020-0 Yes [id number] 40mg Take 1 [facility] (LIPITOR) 7-27 Tablet by [facility] 40 MG 00:00: mouth of tablet 00 daily. Medicin e metoprolol 2020-0 Yes [id number] 50mg Take 1 [facility] (TOPROL-XL) 7-27 Tablet by [facility] 50 MG XL 00:00: mouth two of tablet 00 times Medicin daily. e atorvastati 0 Yes [id number] 40mg Take 1 [facility] n (LIPITOR) 7-27 Tablet by [facility] 40 MG 00:00: mouth of tablet 00 daily. Medicin e metoprolol 2020-0 Yes [id number] 50mg Take 1 [facility] (TOPROL-XL) 7-27 Tablet by [facility] 50 MG XL 00:00: mouth two of tablet 00 times Medicin daily. e atorvastati 2020-0 Yes [id number] 40mg Take 1 [facility] n (LIPITOR) 7-27 Tablet by [facility] 40 MG 00:00: mouth of tablet 00 daily. Medicin e metoprolol 2020-0 Yes [id number] 50mg Take 1 [facility] (TOPROL-XL) 7-27 Tablet by [facility] 50 MG XL 00:00: mouth two of tablet 00 times Medicin daily. e atorvastati 2020-0 Yes [id number] 40mg Take 1 [facility] (LIPITOR) 7-27 Tablet by [facility] 40 MG 00:00: mouth of tablet 00 daily. Medicin e metoprolol 2020-0 Yes [id number] 50mg Take 1 [facility] (TOPROL-XL) 7-27 Tablet by [facility] 50 MG XL 00:00: mouth two of tablet 00 times Medicin daily. e atorvastati 2020-0 Yes [id number] 40mg Take 1 [facility] n (LIPITOR) 7-27 Tablet by [facility] 40 MG 00:00: mouth of tablet 00 daily. Medicin e metoprolol 2020-0 Yes [id number] 50mg Take 1 [facility] (TOPROL-XL) 7-27 Tablet by [facility] 50 MG XL 00:00: mouth two of tablet 00 times Medicin daily. e atorvastati 2020-0 Yes [id number] 40mg Take 1 [facility] n (LIPITOR) 7-27 Tablet by [facility] 40 MG 00:00: mouth of tablet 00 daily. Medicin e metoprolol 2020-0 Yes [id number] 50mg Take 1 [facility] (TOPROL-XL) 7-27 Tablet by [facility] 50 MG XL 00:00: mouth two of tablet 00 times Medicin daily. e atorvastati 2020-0 Yes [id number] 40mg Take 1 [facility] n (LIPITOR) 7-27 Tablet by [facility] 40 MG 00:00: mouth of tablet 00 daily. Medicin e metoprolol 2020-0 Yes [id number] 50mg Take 1 [facility] (TOPROL-XL) 7-27 Tablet by [facility] 50 MG XL 00:00: mouth two of tablet 00 times Medicin daily. e atorvastati 2020-0 Yes [id number] 40mg Take 1 [facility] (LIPITOR) 7-27 Tablet by [facility] 40 MG 00:00: mouth of tablet 00 daily. Medicin e metoprolol 2020-0 Yes [id number] 50mg Take 1 [facility] (TOPROL-XL) 7-27 Tablet by [facility] 50 MG XL 00:00: mouth two of tablet 00 times Medicin daily. e atorvastati 2020-0 Yes [id number] 40mg Take 1 [facility] (LIPITOR) 7-27 Tablet by [facility] 40 MG 00:00: mouth of tablet 00 daily. Medicin e metoprolol 0 Yes [id number] 50mg Take 1 [facility] (TOPROL-XL) 7-27 Tablet by [facility] 50 MG XL 00:00: mouth two of tablet 00 times Medicin daily. e atorvastati 0 Yes [id number] 40mg Take 1 [facility] (LIPITOR) 7-27 Tablet by [facility] 40 MG 00:00: mouth of tablet 00 daily. Medicin e metoprolol 0 Yes [id number] 50mg Take 1 [facility] (TOPROL-XL) 7-27 Tablet by [facility] 50 MG XL 00:00: mouth two of tablet 00 times Medicin daily. e atorvastati Yes [id number] 40mg Take 1 [facility] n (LIPITOR) 7-27 Tablet by [facility] 40 MG 00:00: mouth of tablet 00 daily. Medicin e metoprolol Yes [id number] 50mg Take 1 [facility] (TOPROL-XL) 7-27 Tablet by [facility] 50 MG XL 00:00: mouth two of tablet 00 times Medicin daily. e atorvastati Yes [id number] 40mg Take 1 [facility] n (LIPITOR) 7-27 Tablet by Col [facility] 40 MG 00:00: mouth of tablet 00 daily. Medicin e atorvastati Yes [id number] 40mg Take 1 [facility] n (LIPITOR) 7-27 Tablet by Col [facility] 40 MG 00:00: mouth of tablet 00 daily. Medicin e atorvastati 2021- No [id number] 40mg Take 1 [facility] n (LIPITOR) 06-01 Tablet by Co [facility]lege 40 MG 00:00: 00:00 mouth of tablet 00 :00 daily. Medicin e metoprolol 2020- No [id number] TAKE 1 [facility] (TOPROL-XL) 05-14 TABLET BY Co llege 50 MG XL 00:00: 00:00 MOUTH of tablet 00 :00 EVERY DAY Medicin e nitroglycer 2021- No Put [address] [facility] 05-04 [facility] (NITROSTAT) 00:00: 23:59 tongue Med ical 0.4 MG SL 00 :00 every 5min Cent er tablet as needed for chest pain.No more than 3 doses in 15min.Call 911 if pain unrelieved 5min after 1st dose. nitroglycer 2021- No Put [address] [facility] 05-04 [facility] (NITROSTAT) 00:00: 23:59 tongue Med ical 0.4 MG SL 00 :00 every 5min Cent er tablet as needed for chest pain.No more than 3 doses in 15min.Call 911 if pain unrelieved 5min after 1st dose. nitroglycer 2021- No Put [address] [facility] 05-04 [facility] (NITROSTAT) 00:00: 23:59 tongue Med ical 0.4 MG SL 00 :00 every 5min Cent er tablet as needed for chest pain.No more than 3 doses in 15min.Call 911 if pain unrelieved 5min after 1st dose. gabapentin Yes 300mg Take 300 [facility] (NEURONTIN) 04-14 mg by [facility] 300 MG 15:11: mouth 3 of capsule 22 times Medicin daily. e Aspirin Yes [facility] (ASPIR-LOW) 04-14 [facility] 81 MG 15:10: of tablet 47 Medicin e pantoprazol Yes 20mg Take 20 mg [facility] e 04-14 by mouth [facility] (PROTONIX) 15:10: daily. of 20 MG 47 Medicin tablet e mirtazapine 2020- No 1{tbl} Take 1 [facility] (REMERON) 04-14 Tablet by Mina christopher 7.5 MG 15:10: 00:00 mouth of tablet 17 :00 daily. Medicin e busPIRone 2020- No 1{tbl} Take 1 [facility] (BUSPAR) 04-14 Tablet by Danii gan 7.5 MG 15:09: 00:00 mouth of tablet 47 :00 daily. Medicin e clopidogrel 2020- No 75mg Take 1 [facility] (PLAVIX) 75 04-02 Tablet by Co [facility] MG Tablet 00:00: 04:59 mouth of 00 :00 daily for Medicin 90 doses. e clopidogrel 2020-0 2020- No 75mg Take 1 [facility] (PLAVIX) 75 5-28 08-27 Tablet by Co llege MG Tablet 00:00: 04:59 mouth of 00 :00 daily for Medicin 90 doses. e clopidogrel 2020-0 2020- No 75mg Take 1 [facility] (PLAVIX) 75 5-28 08-27 Tablet by [facility] MG Tablet 00:00: 04:59 mouth of 00 :00 daily for Medicin 90 doses. e clopidogrel 2020-2020- No 75mg Take 1 [place] [facility] (PLAVIX) 75 5-28 08-27 Tablet by Co [facility] MG Tablet 00:00: 04:59 mouth of 00 :00 daily for Medicin 90 doses. e clopidogrel 2020-2020- No 75mg Take 1 [place] [facility] (PLAVIX) 75 5-28 08-27 Tablet by [facility] MG Tablet 00:00: 04:59 mouth of 00 :00 daily for Medicin 90 doses. e Aspirin 2020-0 Yes [facility] (ASPIR-LOW) 4-28 [facility] 81 MG 17:15: of tablet 19 Medicin e pantoprazol 2020-0 Yes 20mg Take 20 mg [facility] e 4-28 by mouth [facility] (PROTONIX) 17:15: daily. of 20 MG 19 Medicin tablet e mirtazapine 0 Yes 1{tbl} Take 1 [facility] (REMERON) 4-28 Tablet by Colle ge 7.5 MG 17:15: mouth of tablet 19 daily. Medicin e busPIRone 2020-0 Yes 1{tbl} Take 1 [facility] (BUSPAR) 4-28 Tablet by Colleg e 7.5 MG 17:15: mouth of tablet 19 daily. Medicin e Aspirin 2020-0 Yes [facility] (ASPIR-LOW) 4-28 [facility] 81 MG 12:15: of tablet 19 Medicin e pantoprazol 2020-0 Yes 20mg Take 20 mg [facility] e 4-28 by mouth [facility] (PROTONIX) [...] 19 daily. Medicin e meloxicam 2020-0 Yes [id number] 15mg Take 1 [facility] (MOBIC) 15 4- Tablet by Mina ege MG tablet 00:00: mouth of 00 daily. Medicin e meloxicam 2020-0 Yes [id number] 15mg Take 1 [facility] (MOBIC) 15 - Tablet by Mina ege MG tablet 00:00: mouth of 00 daily. Medicin e meloxicam 2020-0 2020- No [id number] 15mg Take 1 [facility] (MOBIC) 15 - 06-09 Tablet by [facility] MG tablet 00:00: 00:00 mouth of 00 :00 daily. Medicin e levofloxaci 2020-0 2020- No [id number] 500mg Take 1 [facility] n 03-03 05-13 Tablet by [facility] (LEVAQUIN) 00:00: 04:59 mouth of 500 MG 00 :00 daily for Medicin tablet 14 days. e Aspirin 2020-0 Yes [facility] (ASPIR-LOW) 4-13 [facility] 81 MG 14:34: of tablet 32 Medicin e pantoprazol 0 Yes 20mg Take 20 mg [facility] e - by mouth [facility] (PROTONIX) 14:34: daily. of 20 MG 32 Medicin tablet e metoprolol 2020-0 Yes [id number] 50mg Take 1 [facility] (TOPROL-XL) 4-13 Tablet by [facility] 50 MG XL 00:00: mouth of tablet 00 daily. Medicin e metoprolol 2020-0 Yes [id number] 50mg Take 1 [facility] (TOPROL-XL) 4-13 Tablet by [facility] 50 MG XL 00:00: mouth of tablet 00 daily. Medicin e metoprolol 2020-0 Yes [id number] 50mg Take 1 [facility] (TOPROL-XL) 4-13 Tablet by [facility] 50 MG XL 00:00: mouth of tablet 00 daily. Medicin e metoprolol 2020-0 Yes [id number] 50mg Take 1 [facility] (TOPROL-XL) 4-13 Tablet by [facility] 50 MG XL 00:00: mouth of tablet 00 daily. Medicin e clopidogrel 2021- No 75mg Take 75 mg [facility] (PLAVIX) 75 01-08-06 by mouth. Co llege MG Tablet 00:00: 05:59 of 00 :00 Medicin e clopidogrel 2021- No 75mg Take 75 mg [facility] (PLAVIX) 75 01-08-06 by mouth. Co llege MG Tablet 00:00: 05:59 of 00 :00 Medicin e topiramate Yes 1{tbl} Take 1 [facility] (TOPAMAX) 2-25 Tablet by Colle ge 50 MG 00:00: mouth of tablet 00 daily. Medicin e topiramate Yes 1{tbl} Take 1 [facility] (TOPAMAX) 2-25 Tablet by Colle ge 50 MG 00:00: mouth of tablet 00 daily. Medicin e topiramate 2020- No 1{tbl} Take 1 [facility] (TOPAMAX) 2-25 06-09 Tablet by [facility] 50 MG 00:00: 00:00 mouth of tablet 00 :00 daily. Medicin e Aspirin Yes [facility] (ASPIR-LOW) 2- College 81 MG 15:45: of tablet 46 Medicin e Aspirin Yes [facility] (ASPIR-LOW) 2-01 College 81 MG 15:45: of tablet 46 Medicin e omeprazole 2020- No 40mg Take 40 mg [facility] (PRILOSEC) 112-02 by mouth. Col lege 40 [...] Medicin e atorvastati 2020- No TAKE 1 [place] [facility] (LIPITOR) 1-19 04-13 TABLET BY Co llege 10 MG 00:00: 00:00 MOUTH of tablet 00 :00 EVERY DAY Medicin e losartan 0 Yes TAKE 1 [facility] (COZAAR) 1-14 TABLET BY Colleg e 100 MG 00:00: MOUTH of tablet 00 EVERY DAY Medicin e losartan 0 Yes TAKE 1 [facility] (COZAAR) 1-14 TABLET BY [facility] 100 MG 00:00: MOUTH of tablet 00 EVERY DAY Medicin e losartan 0 Yes TAKE 1 [facility] (COZAAR) 1-14 TABLET BY [facility] 100 MG 00:00: MOUTH of tablet 00 EVERY DAY Medicin e losartan 0 Yes TAKE 1 [facility] (COZAAR) 1-14 TABLET BY [facility] 100 MG 00:00: MOUTH of tablet 00 EVERY DAY Medicin e losartan 2020-0 Yes TAKE 1 [facility] (COZAAR) 1-14 TABLET BY [facility] 100 MG 00:00: MOUTH of tablet 00 EVERY DAY Medicin e losartan 0 Yes TAKE 1 [facility] (COZAAR) 1-14 TABLET BY [facility] 100 MG 00:00: MOUTH of tablet 00 EVERY DAY Medicin e losartan 0 Yes TAKE 1 [facility] (COZAAR) 1-14 TABLET BY [facility] 100 MG 00:00: MOUTH of tablet 00 EVERY DAY Medicin e losartan 0 Yes TAKE 1 [facility] (COZAAR) 1-14 TABLET BY [facility] 100 MG 00:00: MOUTH of tablet 00 EVERY DAY Medicin e losartan 0 Yes TAKE 1 [facility] (COZAAR) 1-14 TABLET BY [facility] e 100 MG 00:00: MOUTH of tablet 00 EVERY DAY Medicin e losartan 2020-0 Yes TAKE 1 [facility] (COZAAR) 1-14 TABLET BY [facility] 100 MG 00:00: MOUTH of tablet 00 EVERY DAY Medicin e losartan 2020-0 Yes TAKE 1 [facility] (COZAAR) 1-14 TABLET BY [facility] 100 MG 00:00: MOUTH of tablet 00 EVERY DAY Medicin e losartan 2020-0 Yes TAKE 1 [facility] (COZAAR) 1-14 TABLET BY [facility] 100 MG 00:00: MOUTH of tablet 00 EVERY DAY Medicin e losartan 0 Yes TAKE 1 [facility] (COZAAR) 1-14 TABLET BY Colleg e [...] Medicin e losartan 2020-0 Yes TAKE 1 [facility] (COZAAR) 1-14 TABLET BY [facility] e 100 MG 00:00: MOUTH of tablet 00 EVERY DAY Medicin e losartan 202-0 2022- No TAKE 1 [facility] (COZAAR) 1-14 06-29 TABLET BY Colle ge 100 MG [...] A e DAY NEEDED cyclobenzap 2021-0 Yes 1{tbl} Take [address] [facility] [address] [facility] ([facility] 00:00: mouth Medica l 10 MG 00 every Center tablet night as needed for Muscle spasms . cyclobenzap Yes 1{tbl} Take [address] [facility] [address] [facility] 1-[facility] by [facility] (FLEX[facility]IL) 00:00: mouth Medica l 10 MG 00 every Center tablet night as needed for Muscle spasms . cyclobenzap 0 Yes 1{tbl} Take [address] [facility] 1-13 tablet by [facility] (FLEXERIL) 00:00: mouth Medica l 10 MG 00 every Center tablet night as needed for Muscle spasms . cyclobenzap 2020- No TAKE 1 [place] [facility] 1-13 10-13 TABLET BY [facility] (FLEXERIL) 00:00: 00:00 MOUTH of 10 MG 00 :00 THREE Medicin tablet TIMES A e DAY NEEDED magnesium 2020-0 Yes TAKE 1 [facility] oxide 1-04 TABLET BY [facility] ([facility]) 00:00: MOUTH of 400 MG 00 EVERY DAY Medicin tablet e magnesium 2020-0 Yes TAKE 1 [facility] oxide 1-04 TABLET BY [facility] ([facility]) 00:00: MOUTH of 400 MG 00 EVERY DAY Medicin tablet e magnesium 2020-0 Yes TAKE 1 [facility] oxide 1-04 TABLET BY [facility] (MAG-OX) 00:00: MOUTH of 400 MG 00 EVERY DAY Medicin tablet e magnesium 2020-0 Yes TAKE 1 [facility] oxide 1-04 TABLET BY [facility] (MAG-OX) 00:00: MOUTH of 400 MG 00 EVERY DAY Medicin tablet e magnesium 2020-0 Yes TAKE 1 [facility] oxide 1-04 TABLET BY [facility] (MAG-OX) 00:00: MOUTH of 400 MG 00 EVERY DAY Medicin tablet e magnesium 2020-0 Yes TAKE 1 [facility] oxide 1-04 TABLET BY [facility] (MAG-OX) 00:00: MOUTH of 400 MG 00 EVERY DAY Medicin tablet e magnesium 2020-0 2020- No TAKE 1 [facility] oxide 1-04 06-09 TABLET BY [facility] (MAG-OX) 00:00: 00:00 MOUTH of 400 MG [...] 20mg Take 20 mg [facility] (PRILOSEC) 2- by mouth Colle ge 20 MG 00:00: daily. of capsule 00 Medicin e omeprazole 2019-11 Yes 20mg Take 20 mg [facility] (PRILOSEC) 2 by mouth [facility]le ge 20 MG 00:00: daily. of capsule 00 Medicin e omeprazole 2019-11- No 20mg Take 20 mg [facility] (PRILOSEC) 2- 06-09 by mouth [facility] 20 MG 00:00: 00:00 daily. of capsule 00 :00 Medicin e omeprazole 2019-11- No TAKE 1 [facility] (PRILOSEC) 02-16 CAPSULE BY Co llege 20 MG 00:00: 00:00 MOUTH of capsule 00 :00 EVERY DAY Medicin e lactulose 2019-11 Yes TAKE BY Leonor r (CHRONULAC) 11-29 MOUTH 60 [facility] 10 GM/15ML 00:00: MILLILIGTE o f solution 00 R EVERY Medicin NIGHT e lactulose 2019-11 Yes TAKE BY [facility] (CHRONULAC) 1 MOUTH 60 [facility] 10 GM/15ML 00:00: [...] NIGHT e lactulose 2019-11- No TAKE BY [facility] (CHRONULAC) 11-29-28 MOUTH 60 Col lege 10 GM/15ML 00:00: 00:00 MILLILIGTE of solution 00 :00 R EVERY Medicin NIGHT e omeprazole 2019-11 Yes 40mg Take 40 mg [facility] (PRILOSEC) 0-01 by mouth. [facility] 40 MG 19:11: of capsule 14 Medicin e Aspirin 2020-1 Yes [facility] (ASPIR-LOW) 0-01 [facility] 81 MG 19:11: of tablet 14 Medicin e omeprazole 2020-1 Yes 40mg Take 40 mg [facility] (PRILOSEC) 0-01 by mouth. [facility] 40 MG 19:11: of capsule 14 Medicin e Aspirin 2020-1 Yes [facility] (ASPIR-LOW) 0-01 [facility] 81 MG 19:11: of tablet 14 Medicin e Aspirin 2020-1 Yes [facility] (ASPIR-LOW) 0-01 [facility] 81 MG 19:11: of tablet 14 Medicin e omeprazole 2020-0 Yes 40mg Take 40 mg [facility] (PRILOSEC) 6-18 by mouth. [facility] 40 MG 16:35: of capsule 38 Medicin e atorvastati 2020-0 No 1mg n 10 mg 4-23 tablet 00:00: 00 losartan 50 2020-0 No 1mg mg tablet 4-23 00:00: 00 amlodipine 2020-0 No 1mg 10 4-23 mg-benazepr 00:00: il 20 mg 00 capsule omeprazole 2020-0 No 1mg 40 mg 4-23 capsule,del 00:00: ayed 00 release mirtazapine 2020-0 No 1mg 30 mg 4-23 tablet 00:00: 00 aspirin 81 2020-0 No 1mg mg 4-23 tablet,isai 00:00: yed release 00 tamsulosin 2020-0 No 1mg 0.4 mg 4-23 capsule 00:00: 00 omeprazole 2020-0 Yes 40mg Take 40 mg [facility] (PRILOSEC) 3-18 by mouth. [facility] 40 MG 14:47: of capsule 31 Medicin e atorvastati 2018-11 Yes [id number] 20mg Take 1 Tab [facility] n (LIPITOR) 2-18 by mouth [facility] 20 MG 00:00: daily. of tablet 00 Medicin e atorvastati 2018-11 Yes [id number] 20mg Take 1 Tab [facility] (LIPITOR) 2-18 by mouth [facility] 20 MG 00:00: daily. of tablet 00 Medicin e atorvastati 2018-11 Yes [id number] 20mg Take 1 Tab [facility] (LIPITOR) 2-18 by mouth [facility] 20 MG 00:00: daily. of tablet 00 Medicin e atorvastati 2018-11 Yes [id number] 20mg Take 1 Tab [facility] n (LIPITOR) 2-18 by mouth [facility] 20 MG 00:00: daily. of tablet 00 Medicin e atorvastati 2018-11 Yes [id number] 20mg Take 1 Tab [facility] (LIPITOR) 2-18 by mouth [facility] 20 MG 00:00: daily. of tablet 00 Medicin e atorvastati 2018-11 Yes [id number] 20mg Take 1 Tab [facility] (LIPITOR) 2-18 by mouth [facility] 20 MG 00:00: daily. of tablet 00 Medicin e atorvastati 2018-11 Yes [id number] 20mg Take 1 Tab [facility] n (LIPITOR) 2-18 by mouth [facility] 20 MG 00:00: daily. of tablet 00 Medicin e atorvastati 2018-11 Yes [id number] 20mg Take 1 Tab [facility] (LIPITOR) 2-18 by mouth [facility] 20 MG 00:00: daily. of tablet 00 Medicin e atorvastati 2018-11 Yes [id number] 20mg Take 1 Tab [facility] (LIPITOR) 2-18 by mouth [facility] 20 MG 00:00: daily. of tablet 00 Medicin e atorvastati 2018-11 Yes [id number] 20mg Take 1 Tab [facility] n (LIPITOR) 2-18 by mouth [facility] 20 MG 00:00: daily. of tablet 00 Medicin e atorvastati 2018-11 Yes [id number] 20mg Take 1 Tab [facility] (LIPITOR) 2-18 by mouth [facility] 20 MG 00:00: daily. of tablet 00 Medicin e atorvastati 2018-11- No [id number] 20mg Take 1 Tab [facility] (LIPITOR) 2-18 07-27 by mouth [facility] 20 MG 00:00: 00:00 daily. of tablet 00 :00 Medicin e atorvastati 2018-11 Yes 10mg Take 10 mg [facility] (LIPITOR) 0-11 by mouth. Col [facility] 10 MG 18:00: of tablet 28 Medicin e omeprazole 2018-11 Yes 40mg Take 40 mg [facility] (PRILOSEC) 0-11 by mouth. [facility] 40 MG 18:00: of capsule 28 Medicin e MethylPREDN MethylPREDN Yes [facility] as Common ISolone ISolone 07-25 [facility] - [facility] Tramadol Tramadol Yes [facility] as Co mmon HCl HCl 07-09 [facility] 00:[facility]: - [facility] hydrOXYzine Yes 25mg Take 1 Tab [facility] (ATARAX) 25 6 by mouth 3 Co llege MG tablet [...] BEDTIME NEEDED mirtazapine 2020- No TAKE 1 [facility] (REMERON) 5-09 - TABLET (30 [facility] 30 MG [...] EC 2020- No 81mg Take 81 mg [facility] 81 MG 4-30 04-30 by mouth. College tablet 00:00: 04:59 of 00 :00 Medicin e amlodipine Yes TAKE 1 [facility] (NORVASC) 1-08 TABLET BY Colle ge 10 MG 00:00: MOUTH of tablet 00 EVERY DAY Medicin e losartan Yes TAKE 1 [facility] (COZAAR) 50 1-08 TABLET BY Col lege MG tablet 00:00: MOUTH of 00 EVERY DAY Medicin e amlodipine Yes TAKE 1 [facility] (NORVASC) 1-08 TABLET BY Colle ge 10 MG 00:00: MOUTH of tablet 00 EVERY DAY Medicin e losartan Yes TAKE 1 [facility] (COZAAR) 50 1-08 TABLET BY Col lege MG tablet 00:00: MOUTH of 00 EVERY DAY Medicin e amlodipine Yes TAKE 1 [facility] (NORVASC) 1-08 TABLET BY Colle ge 10 MG 00:00: MOUTH of tablet 00 EVERY DAY Medicin e losartan Yes TAKE 1 [facility] (COZAAR) 50 1-08 TABLET BY Col [...] DAY Medicin e losartan Yes TAKE 1 [facility] (COZAAR) 50 1-08 TABLET BY Col lege MG tablet 00:00: MOUTH of 00 EVERY DAY Medicin e amlodipine Yes TAKE 1 [facility] (NORVASC) 1-08 TABLET BY Colle ge 10 MG 00:00: MOUTH of tablet 00 EVERY DAY Medicin e losartan Yes TAKE 1 [facility] (COZAAR) 50 1-08 TABLET BY Col lege MG tablet 00:00: MOUTH of 00 EVERY DAY Medicin e amlodipine 2020- No TAKE 1 [facility] (NORVASC) 1-08 08-25 TABLET BY [facility] 10 MG 00:00: 00:00 MOUTH of tablet 00 :00 EVERY DAY Medicin e losartan 2020- No TAKE 1 [facility] (COZAAR) 50 1-08 -27 TABLET BY Co llege MG tablet 00:00: 00:00 MOUTH of 00 :00 EVERY DAY Medicin e amLODIPine 2016-11 Yes 10mg Take 10 mg U nivers 10 mg 22 by mouth ity of tablet 12:56: daily. [address] atorvastati 2016-11 Yes 10mg Take 10 mg [facility] n 10 mg 11-27 by mouth ity of tablet 12:56: daily. [address] losartan 50 2016-11 Yes 50mg Take 50 mg Univers mg tablet 11-27 by mouth ity of 12:56: daily. [address] omeprazole 2016-11 Yes 40mg Take 40 mg U nivers 40 mg 11-27 by mouth ity of capsule 12:56: daily. [address] oxybutynin 2016-11 Yes 5mg Take 5 mg Un erlin chloride 5 11-27 by mouth ity o f mg tablet 12:56: daily. [address] tamsulosin 2016-11 Yes .4mg Take 0.4 Uni vers 0.4 mg 24 -22 mg by ity of hr capsule 12:56: mouth [place] [id number] daily. [facility] Omeprazole Omeprazole Yes Jorge not Common Leonard defined [facility] Aspirin 81 Aspirin 81 Yes Jorge not Common Leonard defined [facility] atorvastati atorvastati Yes Jorge not Common n n Leonard defined [facility] Amlodipine Amlodipine Yes Jorge not Common Besylate Besylate Leonard defined [facility] Losartan Losartan Yes Jorge not Comm on Potassium Potassium Leonard defined [facility] Folic Acid Folic Acid Yes Jorge not Common [facility] defined [facility] Clindamycin Clindamycin Yes Jorge not Common HCl HCl Leonard defined [facility] BusPIRone BusPIRone Yes Jorge not Co mmon HCl HCl Leonard defined [facility] Mirtazapine Mirtazapine Yes Jorge not Common Leonard defined [facility] Atorvastati Atorvastati Yes Jorge not Common n Calcium n Calcium Leonard defined [facility] MAGnesium-O MAGnesium-O Yes Jorge not Common xide xide Leonard defined [facility] Flucelvax Flucelvax Yes Jorge not Co mmon Quadrivalen Quadrivalen [facility] defined [facility] Baclofen Baclofen Yes Jorge not Comm on Leonard defined [facility] Immunizations Ordered Immunization Filled Immunization Date Status Commen ts Source Name Name Influenza 2021-08-04 Completed [facility] Intradermal 00:00:00 of Medicine Influenza 2021-08-04 Completed [facility] Intradermal 00:00:00 of Medicine Influenza 2021-08-04 Completed [facility] Intradermal 00:00:00 of Medicine Influenza 2021-08-04 Completed [facility] Intradermal 00:00:00 of Medicine Influenza 2021-08-04 Completed [facility] Intradermal 00:00:00 of Medicine Influenza 2021-08-04 Completed [facility] Intradermal 00:00:00 of Medicine Influenza 2021-08-04 Completed [facility] Intradermal 00:00:00 of Medicine Influenza 2021-08-04 Completed [facility] Intradermal 00:00:00 of Medicine Influenza 2021-08-04 Completed [facility] Intradermal 00:00:00 of Medicine Influenza 2021-08-04 Completed [facility] Intradermal 00:00:00 of Medicine Influenza 2021-08-04 Completed [facility] Intradermal 00:00:00 of Medicine Influenza 2021-08-04 Completed [facility] Intradermal 00:00:00 of Medicine Influenza 2021-08-04 Completed [facility] Intradermal 00:00:00 of Medicine Influenza 2021-08-04 Completed [facility] Intradermal 00:00:00 of Medicine Influenza 2021-08-04 Completed [facility] Intradermal 00:00:00 of Medicine Influenza 2021-08-04 Completed [facility] Intradermal 00:00:00 of Medicine Influenza 2021-08-04 Completed [facility] Intradermal 00:00:00 of Medicine Influenza 2021-08-04 Completed [facility] Intradermal 00:00:00 of Medicine Influenza 2021-08-04 Completed [facility] Intradermal 00:00:00 of Medicine Influenza 2021-08-04 Completed [facility] Intradermal 00:00:00 of Medicine Influenza 2021-08-04 Completed [facility] Intradermal 00:00:00 of Medicine Influenza Quad-PF 2020-07-16 Completed [facility] 00:00:00 of Medicine Influenza Quad-PF 2020-07-16 Completed [facility] 00:00:00 of Medicine Influenza Quad-PF 2020-07-16 Completed [facility] 00:00:00 of Medicine Influenza Quad-PF 2020-07-16 Completed [facility] 00:00:00 of Medicine Influenza Quad-PF 2020-07-16 Completed [facility] 00:00:00 of Medicine Influenza Quad-PF 2020-07-16 Completed [facility] 00:00:00 of Medicine Influenza Quad-PF 2020-07-16 Completed [facility] 00:00:00 of Medicine Influenza Quad-PF 2020-07-16 Completed [facility] 00:00:00 of Medicine Influenza Quad-PF 2020-07-16 Completed [facility] 00:00:00 of Medicine Influenza Quad-PF 2020-07-16 Completed [facility] 00:00:00 of Medicine Influenza Quad-PF 2020-07-16 Completed [facility] 00:00:00 of Medicine Influenza Quad-PF 2020-07-16 Completed [facility] 00:00:00 of Medicine Influenza Quad-PF 2020-07-16 Completed [facility] 00:00:00 of Medicine Influenza Quad-PF 2020-07-16 Completed [facility] 00:00:00 of Medicine Influenza Quad-PF 2020-07-16 Completed [facility] 00:00:00 of Medicine Influenza Quad-PF 2020-07-16 Completed [facility] 00:00:00 of Medicine Influenza Quad-PF 2020-07-16 Completed [facility] 00:00:00 of Medicine Influenza Quad-PF 2020-07-16 Completed [facility] 00:00:00 of Medicine Influenza Quad-PF 2020-07-16 Completed [facility] 00:00:00 of Medicine Influenza Quad-PF 2020-07-16 Completed [facility] 00:00:00 of Medicine Influenza Quad-PF 2020-07-16 Completed [facility] 00:00:00 of Medicine Influenza Quad-PF 2020-07-16 Completed [facility] 00:00:00 of Medicine Influenza Quad-PF 2020-07-16 Completed [facility] 00:00:00 of Medicine Influenza Quad-PF 2020-07-16 Completed [facility] 00:00:00 of Medicine Influenza Quad-PF 2020-07-16 Completed [facility] 00:00:00 of Medicine Influenza Quad-PF 2020-07-16 Completed [facility] 00:00:00 of Medicine Influenza Quad-PF 2020-07-16 Completed [facility] 00:00:00 of Medicine Influenza Quad-PF 2020-07-16 Completed [facility] 00:00:00 of Medicine Influenza Quad-PF 2020-07-16 Completed [facility] 00:00:00 of Medicine Influenza Quad-PF 2020-07-16 Completed [facility] 00:00:00 of Medicine Influenza Quad-PF 2020-07-16 Completed [facility] 00:00:00 of Medicine Influenza Quad-PF 2020-07-16 Completed [facility] 00:00:00 of Medicine Influenza Quad-PF 2020-07-16 Completed [facility] 00:00:00 of Medicine Influenza Quad-PF 2019-07-07 Completed [facility] 00:00:00 of Medicine Influenza Quad-PF 2019-07-07 Completed [facility] 00:00:00 of Medicine Influenza Quad-PF 2019-07-07 Completed [facility] 00:00:00 of Medicine Influenza Quad-PF 2019-07-07 Completed [facility] 00:00:00 of Medicine Influenza Quad-PF 2019-07-07 Completed [facility] 00:00:00 of Medicine Influenza Quad-PF 2019-07-07 Completed [facility] 00:00:00 of Medicine Influenza Quad-PF 2019-07-07 Completed [facility] 00:00:00 of Medicine Influenza Quad-PF 2019-07-07 Completed [facility] 00:00:00 of Medicine Influenza Quad-PF 2019-07-07 Completed [facility] 00:00:00 of Medicine Influenza Quad-PF 2019-07-07 Completed [facility] 00:00:00 of Medicine Influenza Quad-PF 2019-07-07 Completed [facility] 00:00:00 of Medicine Influenza Quad-PF 2019-07-07 Completed [facility] 00:00:00 of Medicine Influenza Quad-PF 2019-07-07 Completed [facility] 00:00:00 of Medicine Influenza Quad-PF 2019-07-07 Completed [facility] 00:00:00 of Medicine Influenza Quad-PF 2019-07-07 Completed [facility] 00:00:00 of Medicine Influenza Quad-PF 2019-07-07 Completed [facility] 00:00:00 of Medicine Influenza Quad-PF 2019-07-07 Completed [facility] 00:00:00 of Medicine Influenza Quad-PF 2019-07-07 Completed [facility] 00:00:00 of Medicine Influenza Quad-PF 2019-07-07 Completed [facility] 00:00:00 of Medicine Influenza Quad-PF 2019-07-07 Completed [facility] 00:00:00 of Medicine Influenza Quad-PF 2019-07-07 Completed [facility] 00:00:00 of Medicine Influenza Quad-PF 2019-07-07 Completed [facility] 00:00:00 of Medicine Influenza Quad-PF 2019-07-07 Completed [facility] 00:00:00 of Medicine Influenza Quad-PF 2019-07-07 Completed [facility] 00:00:00 of Medicine Influenza Quad-PF 2019-07-07 Completed [facility] 00:00:00 of Medicine Influenza Quad-PF 2019-07-07 Completed [facility] 00:00:00 of Medicine Influenza Quad-PF 2019-07-07 Completed [facility] 00:00:00 of Medicine Influenza Quad-PF 2019-07-07 Completed [facility] 00:00:00 of Medicine Influenza Quad-PF 2019-07-07 Completed [facility] 00:00:00 of Medicine Influenza Quad-PF 2019-07-07 Completed [facility] 00:00:00 of Medicine Influenza Quad-PF 2019-07-07 Completed [facility] 00:00:00 of Medicine Influenza Quad-PF 2019-07-07 Completed [facility] 00:00:00 of Medicine Influenza Quad-PF 2019-07-07 Completed [facility] 00:00:00 of Medicine Influenza Quad-PF 2019-07-07 Completed [facility] 00:00:00 of Medicine Influenza Quad-PF 2019-07-07 Completed [facility] 00:00:00 of Medicine Vital Signs Vital [...] HEIGHT 2021-01-08 09:31:00 165.1 cm Systolic blood 2022-07-27 14:54:00 122 mm[Hg] [facility] pressure Medicine Diastolic blood 2022-07-27 14:54:00 70 mm[Hg] [facility] Medicine Heart rate 2022-07-27 14:54:00 87 /min [facility] ollege of Medicine Body temperature 2022-07-27 14:54:00 36.83 Leah [facility] Respiratory rate 2022-07-27 14:54:00 16 /min [facility] Body height 2022-07-27 14:54:00 162.6 cm [facility] ollege of [facility] Body weight 2022-07-27 14:54:00 79.289 kg [facility] ollege of [facility] BMI 2022-07-27 14:54:00 [facility] in 2022-07-27 14:54:00 98 /min [facility] of Arterial blood by Medicine Pulse oximetry Systolic blood 2022-06-30 14:27:00 132 mm[Hg] [facility] pressure Medicine Diastolic blood 2022-06-30 14:27:00 74 mm[Hg] [facility] pressure Medicine Heart rate 2022-06-30 14:27:00 68 /min [facility] ollege of Medicine Body height 2022-06-30 14:27:00 162.6 cm [facility] ollege of Medicine Body weight 2022-06-30 14:27:00 81.194 kg [facility] ol[facility] of Medicine BMI 2022-06-30 14:27:00 30.73 kg/m2 [facility] ollege of Medicine Oxygen saturation in 2022-06-30 14:27:00 97 /min [facility] of Arterial blood by Medicine Pulse oximetry Systolic blood 2022-06-10 14:09:00 138 mm[Hg] [facility] of pressure Medicine Diastolic blood 2022-06-10 14:09:00 82 mm[Hg] [facility] of pressure Medicine Heart rate 2022-06-10 14:09:00 62 /min [facility] ollege of Medicine Body height 2022-06-10 14:09:00 162.6 cm [facility] ollege of Medicine Body weight 2022-06-10 14:09:00 81.194 kg [facility] ollege of Medicine BMI 2022-06-10 14:09:00 30.73 kg/m2 [facility] ollege of Medicine Systolic blood 2022-05-17 14:34:00 132 mm[Hg] [facility] Medicine Diastolic blood 2022-05-17 14:34:00 77 mm[Hg] [facility] Medicine Heart rate 2022-05-17 14:34:00 70 /min [facility] ollege of Medicine Oxygen saturation in 2022-05-17 14:34:00 98 /min [facility] blood by [facility] Pulse oximetry Body height 2022-05-17 14:33:00 162.6 cm [facility] ol[facility] of Medicine Body weight 2022-05-17 14:33:00 80.74 kg [facility] ol[facility] of Medicine BMI 2022-05-17 14:33:00 30.55 kg/m2 [facility] ol[facility] of Medicine Systolic blood 2022-05-06 15:13:00 131 mm[Hg] [facility] Medicine Diastolic blood 2022-05-06 15:13:00 84 mm[Hg] [facility] Medicine Heart rate 2022-05-06 15:13:00 71 /min [facility] ol[facility] of Medicine Body height 2022-05-06 15:13:00 162.6 cm [facility] ol[facility] of Medicine Body weight 2022-05-06 15:13:00 81.194 kg [facility] ol[facility] of Medicine BMI 2022-05-06 15:13:00 30.73 kg/m2 [facility] ol[facility] of Medicine Systolic blood 2022-05-04 19:54:00 146 mm[Hg] [facility] Medicine Diastolic blood 2022-05-04 19:54:00 82 mm[Hg] [facility] Medicine Heart rate 2022-05-04 19:54:00 69 /min [facility] ol[facility] of Medicine Body temperature 2022-05-04 19:54:00 36.67 Leah [facility] Respiratory rate 2022-05-04 19:54:00 18 /min [facility] Body height 2022-05-04 19:54:[address] [facility] Body weight 2022-05-04 19:54:[address] [facility] BMI 2022-05-04 19:54:00 30.79 kg/m2 [facility] Oxygen saturation in 2022-05-04 19:54:00 98 /min [facility] Arterial blood by [facility] Pulse oximetry Systolic blood 2022-04-28 13:08:00 142 mm[Hg] [facility] Diastolic blood 2022-04-28 13:08:00 82 mm[Hg] [facility] Heart rate 2022-04-28 13:08:00 81 /min [facility] Body height 2022-04-28 13:08:00 165.1 cm [facility] Body weight 2022-04-28 13:08:00 79.833 kg [facility] BMI 2022-04-28 13:08:00 29.29 kg/m2 [facility] Systolic blood 2022-04-12 19:08:00 120 mm[Hg] [facility] Medicine Diastolic blood 2022-04-12 19:08:00 77 mm[Hg] [facility] Medicine Heart rate 2022-04-12 19:08:00 77 /min [facility] Body temperature 2022-04-12 19:08:00 37.33 Leah [facility] Body height 2022-04-12 19:08:[address] [facility] Body weight 2022-04-12 19:08:[address] [facility] BMI 2022-04-12 19:08:00 30.04 kg/m2 [facility] Systolic blood 2022-03-29 19:53:00 129 mm[Hg] [facility] pressure Medicine Diastolic blood 2022-03-29 19:53:00 81 mm[Hg] [place] Heart rate 2022-03-29 19:53:00 75 /min [facility] Body height 2022-03-29 19:53:00 162.6 cm [facility] Body weight 2022-03-29 19:53:00 78.472 kg [facility] BMI 2022-03-29 19:53:00 29.70 kg/m2 [facility] Systolic blood 2022-03-18 15:16:00 158 mm[Hg] [facility] pressure Medicine Diastolic blood 2022-03-18 15:16:00 89 mm[Hg] [facility] pressure Medicine Heart rate 2022-03-18 15:16:00 72 /min [facility] Body height 2022-03-18 15:16:00 162.6 cm [facility] Body weight 2022-03-18 15:16:00 78.472 kg [facility] of Medicine BMI 2022-03-18 15:16:00 29.70 kg/m2 [facility] ol[facility] of Medicine Systolic blood 2022-03-16 20:31:00 130 mm[Hg] [facility] pressure Medicine Diastolic blood 2022-03-16 20:31:00 86 mm[Hg] [facility] pressure Medicine Heart rate 2022-03-16 20:31:00 73 /min [facility] Medicine Body temperature 2022-03-16 20:31:00 36.94 Leah [facility] Respiratory rate 2022-03-16 20:31:00 18 /min [facility] Body height 2022-03-16 20:31:00 162.6 cm [facility] Body weight 2022-03-16 20:31:00 78.472 kg [facility] Medicine BMI 2022-03-16 20:31:00 29.70 kg/m2 [facility] Medicine Systolic blood 2022-02-14 15:56:00 122 mm[Hg] [facility] pressure Medicine Diastolic blood 2022-02-14 15:56:00 78 mm[Hg] [facility] pressure Medicine Heart rate 2022-02-14 15:56:00 79 /min [facility] Medicine Body height 2022-02-14 15:56:00 162.6 cm [facility] Medicine Body weight 2022-02-14 15:56:00 78.472 kg [facility] Medicine BMI 2022-02-14 15:56:00 [facility] Systolic blood 2022-02-10 20:50:00 150 mm[Hg] [facility] pressure Medicine Diastolic blood 2022-02-10 20:50:00 87 mm[Hg] [facility] Medicine Heart rate 2022-02-10 20:49:00 77 /min [facility] Respiratory rate 2022-02-10 20:49:00 16 /min [facility] Body height 2022-02-10 20:49:00 162.6 cm [facility] Body weight 2022-02-10 20:49:00 [facility] BMI 2022-02-10 20:49:00 29.70 [facility] Oxygen saturation in 2022-02-10 20:49:00 100 /min [facility] Arterial blood by [facility] Pulse oximetry Systolic blood 2021-12-20 18:57:00 120 mm[Hg] [facility] pressure Medicine Diastolic blood 2021-12-20 18:57:00 72 mm[Hg] [facility] pressure Medicine Heart rate 2021-12-20 18:57:00 75 /min [facility] Medicine Body height 2021-12-20 18:57:00 162.6 cm [facility] Medicine Body weight 2021-12-20 18:57:00 78.472 kg [facility] Medicine BMI 2021-12-20 18:57:00 29.70 kg/m2 [facility] Medicine Systolic blood 2021-12-10 15:14:00 140 mm[Hg] [facility] pressure Medicine Diastolic blood 2021-12-10 15:14:00 80 mm[Hg] [employer] [facility] pressure Medicine Heart rate 2021-12-10 15:14:00 72 /min [facility] Medicine Body height 2021-12-10 15:14:00 162.6 cm [facility] Body weight 2021-12-10 15:14:00 78.472 kg [facility] Medicine BMI 2021-12-10 15:14:00 29.70 kg/m2 [facility] Medicine Systolic blood 2021-11-17 19:37:00 119 mm[Hg] [facility] Medicine Diastolic blood 2021-11-17 19:37:00 76 mm[Hg] [facility] Medicine Heart rate 2021-11-17 19:36:00 77 /min [facility] Medicine Respiratory rate 2021-11-17 19:36:00 16 /min [facility] Body height 2021-11-17 19:36:00 162.6 cm [facility] Body weight 2021-11-17 19:36:00 78.472 kg [facility] Medicine BMI 2021-11-17 19:36:00 29.70 kg/m2 [facility] ol[facility] of [facility] Oxygen saturation in 2021-11-17 19:36:00 99 /min [facility] Arterial blood by Medicine Pulse oximetry Systolic blood 2021-11-12 22:19:00 130 mm[Hg] [facility] pressure Medicine Diastolic blood 2021-11-12 22:19:00 86 mm[Hg] [facility] Medicine Heart rate 2021-11-12 22:19:00 78 /min [facility] Medicine Body temperature 2021-11-12 22:19:00 37 Leah [facility] Body height 2021-11-12 22:19:00 162.6 cm [facility] Medicine Body weight 2021-11-12 22:19:00 78.563 kg [facility] Medicine BMI 2021-11-12 22:19:00 29.73 kg/m2 [facility] Medicine Oxygen saturation in 2021-11-12 22:19:00 100 /min [facility] Arterial blood by Medicine Pulse oximetry Systolic blood 2021-09-27 20:40:00 148 mm[Hg] [facility] pressure Medicine Diastolic blood 2021-09-27 20:40:00 81 mm[Hg] [facility] of pressure Medicine Heart rate 2021-09-27 20:40:00 74 /min [facility] Medicine Body height 2021-09-27 20:40:00 162.6 cm [facility] Body weight 2021-09-27 20:40:00 79.833 kg [facility] Medicine BMI 2021-09-27 20:40:00 30.21 kg/m2 [facility] Medicine Systolic blood 2021-09-22 21:21:00 137 mm[Hg] [facility] pressure Medicine Diastolic blood 2021-09-22 21:21:00 75 mm[Hg] [facility] of pressure Medicine Heart rate 2021-09-22 21:21:00 76 /min [facility] Medicine Body temperature 2021-09-22 21:21:00 36 Leah [facility] Body height 2021-09-22 21:21:00 162.6 cm [facility] Medicine Systolic blood 2021-08-31 15:43:00 133 mm[Hg] [facility] of pressure Medicine Diastolic blood 2021-08-31 15:43:00 85 mm[Hg] [facility] of pressure Medicine Heart rate 2021-08-31 15:43:00 70 /min [facility] Respiratory rate 2021-08-31 15:43:00 16 /min [facility] Body height 2021-08-31 15:43:00 162.6 cm [facility] Body weight 2021-08-31 15:43:00 [facility].833 [facility] BMI 2021-08-31 15:43:00 30.21 kg/m2 [facility] Medicine Oxygen saturation in 2021-08-31 15:43:00 99 /min [facility] Arterial blood by Medicine Pulse oximetry Systolic blood 2021-08-18 19:04:00 148 mm[Hg] [facility] of pressure Medicine Diastolic blood 2021-08-18 19:04:00 78 mm[Hg] [facility] Medicine Heart rate 2021-08-18 19:04:00 76 /min [facility] Medicine Respiratory rate 2021-08-18 19:04:00 16 /min [facility] Systolic blood 2021-06-30 14:11:00 144 mm[Hg] [facility] Medicine Diastolic blood 2021-06-30 14:11:00 81 mm[Hg] [facility] Medicine Heart rate 2021-06-30 14:11:00 80 /min [facility] Body temperature 2021-06-30 14:11:00 36.61 Leah [facility] Respiratory rate 2021-06-30 14:11:00 16 /min [facility] Body height 2021-06-30 14:11:00 162.6 cm [facility] Body weight 2021-06-30 14:11:00 [facility] BMI 2021-06-30 14:11:00 29.52 [facility]m2 [facility] Systolic blood 2021-06-24 19:52:00 131 mm[Hg] [facility] Diastolic blood 2021-06-24 19:52:00 81 mm[Hg] [place] Heart rate 2021-06-24 19:52:00 92 /min [facility] Respiratory rate 2021-06-24 19:52:00 16 /min [facility] Body height 2021-06-24 19:52:00 162.6 cm [facility] Body weight 2021-06-24 19:52:00 78.019 kg [facility] BMI 2021-06-24 19:52:00 29.52 kg/m2 [facility] Oxygen saturation in 2021-06-24 19:52:00 98 /min [facility] Arterial blood by Medicine Pulse oximetry HEIGHT 2021-06-02 08:50:00 157.5 cm WEIGHT 2021-06-02 08:50:00 79.289 kg Systolic blood 2021-06-01 19:52:00 155 mm[Hg] [facility] pressure Medicine Diastolic blood 2021-06-01 19:52:00 89 mm[Hg] [facility] Medicine Heart rate 2021-06-01 19:52:00 92 /min [facility] Respiratory rate 2021-06-01 19:52:00 16 /min [facility] Body height 2021-06-01 19:52:[address] [facility] Body weight 2021-06-01 19:52:[address] [facility] BMI 2021-06-01 19:52:00 29.70 kg/m2 [facility] Oxygen saturation in 2021-06-01 19:52:00 98 /min [facility] blood by [facility] Pulse oximetry WEIGHT 2021-05-17 04:44:00 79.379 [...] kg Systolic blood 2021-04-14 20:07:00 145 mm[Hg] [facility] pressure Medicine Diastolic blood 2021-04-14 20:07:00 83 mm[Hg] [facility] pressure Medicine Heart rate 2021-04-14 20:07:00 89 /min [facility] Body temperature 2021-04-14 20:07:00 36.44 Leah [facility] Body height 2021-04-14 20:07:00 162.6 cm [facility] Body weight 2021-04-14 20:07:00 81.647 kg [facility] BMI 2021-04-14 20:07:00 30.90 kg/m2 [facility] Medicine Systolic blood 2021-04-14 20:07:00 145 mm[Hg] [facility] pressure Medicine Diastolic blood 2021-04-14 20:07:00 83 mm[Hg] [facility] pressure Medicine Heart rate 2021-04-14 20:07:00 89 /min [facility] Medicine Body temperature 2021-04-14 20:07:00 36.44 Leah [facility] Body height 2021-04-14 20:07:00 162.6 cm [facility] Body weight 2021-04-14 20:07:00 81.647 kg [facility] Medicine BMI 2021-04-14 20:07:00 30.90 kg/m2 [facility] Medicine WEIGHT 2021-03-22 09:56:00 81.647 kg WEIGHT 2021-03-22 09:56:00 81.647 kg Systolic blood 2021-03-03 17:15:00 159 mm[Hg] [facility] pressure Medicine Diastolic blood 2021-03-03 17:15:00 89 mm[Hg] [facility] Medicine Heart rate 2021-03-03 17:15:00 99 /min [facility] Body height 2021-03-03 17:15:00 162.6 cm [facility] Body weight 2021-03-03 17:15:00 83.915 kg [facility] BMI 2021-03-03 17:15:00 31.76 kg/m2 [facility] Medicine Systolic blood 2021-03-03 17:15:00 159 mm[Hg] [facility] pressure Medicine Diastolic blood 2021-03-03 17:15:00 89 mm[Hg] [facility] of pressure Medicine Heart rate 2021-03-03 17:15:00 99 /min [facility] Medicine Body height 2021-03-03 17:15:00 162.6 cm [facility] Body weight 2021-03-03 17:15:00 83.915 kg [facility] BMI 2021-03-03 17:15:00 31.76 kg/m2 [facility] Medicine Systolic blood 2021-02-16 14:32:00 143 mm[Hg] [facility] pressure Medicine Diastolic blood 2021-02-16 14:32:00 85 mm[Hg] [facility] of pressure Medicine Heart rate 2021-02-16 14:32:00 81 /min [facility] Medicine Respiratory rate 2021-02-16 14:32:00 16 /min [facility] Body height 2021-02-16 14:32:00 162.6 cm [facility] Body weight 2021-02-16 14:32:00 84.369 kg [facility] BMI 2021-02-16 14:32:00 31.93 [facility]2 [facility] Oxygen saturation in 2021-02-16 14:32:00 98 /min [facility] Arterial blood by [facility] Pulse oximetry Systolic blood 2021-02-16 14:32:00 143 mm[Hg] [facility] pressure Medicine Diastolic blood 2021-02-16 14:32:00 85 mm[Hg] [facility] Medicine Heart rate 2021-02-16 14:32:00 81 /min [facility] Medicine Respiratory rate 2021-02-16 14:32:00 16 /min [facility] Body height 2021-02-16 14:32:00 162.6 cm [facility] Body weight 2021-02-16 14:32:00 84.369 kg [facility] Medicine BMI 2021-02-16 14:32:00 31.93 kg/m2 [facility] Medicine Oxygen saturation in 2021-02-16 14:32:00 98 /min [facility] Arterial blood by [facility] Pulse oximetry Systolic blood 2021-01-25 16:39:00 145 mm[Hg] [facility] pressure Medicine Diastolic blood 2021-01-25 16:39:00 83 mm[Hg] [facility] Medicine Heart rate 2021-01-25 16:39:00 94 /min [facility] Medicine Body height 2021-01-25 16:39:00 162.6 cm [facility] Medicine Body weight 2021-01-25 16:39:00 83.915 kg [facility] Medicine BMI 2021-01-25 16:39:00 31.76 kg/m2 [facility] Medicine Systolic blood 2021-01-25 16:39:00 145 mm[Hg] [facility] pressure Medicine Diastolic blood 2021-01-25 16:39:00 83 mm[Hg] [facility] Medicine Heart rate 2021-01-25 16:39:00 94 /min [facility] Medicine Body height 2021-01-25 16:39:00 162.6 cm [facility] Medicine Body weight 2021-01-25 16:39:00 83.915 kg [facility] Medicine BMI 2021-01-25 16:39:00 31.76 kg/m2 [facility] Medicine HEIGHT 2021-01-04 12:09:00 165.1 cm WEIGHT 2021-01-04 12:09:00 81.647 kg HEIGHT 2021-01-04 12:09:00 165.1 cm WEIGHT 2021-01-04 12:09:00 81.647 kg Systolic blood 2020-12-02 20:56:00 147 mm[Hg] [facility] pressure Medicine Diastolic blood 2020-12-02 20:56:00 90 mm[Hg] [facility] pressure Medicine Heart rate 2020-12-02 20:56:00 102 /min [facility] of Medicine Systolic blood 2020-12-02 20:56:00 147 mm[Hg] [facility] pressure Medicine Diastolic blood 2020-12-02 20:56:00 90 mm[Hg] [facility] pressure Medicine Heart rate 2020-12-02 20:56:00 102 /min [facility] Medicine Systolic blood 2020-10-12 19:58:00 137 mm[Hg] [facility] pressure Medicine Diastolic blood 2020-10-12 19:58:00 85 mm[Hg] [facility] of pressure Medicine Heart rate 2020-10-12 19:58:00 93 /min [facility] Medicine Body height 2020-10-12 19:58:00 162.6 cm [facility] Medicine Body weight 2020-10-12 19:58:00 86.637 kg [facility] Medicine BMI 2020-10-12 19:58:00 32.79 kg/m2 [facility] Medicine Systolic blood 2020-10-12 19:58:00 137 mm[Hg] [facility] pressure Medicine Diastolic blood 2020-10-12 19:58:00 85 mm[Hg] [facility] Medicine Heart rate 2020-10-12 19:58:00 93 /min [facility] Medicine Body height 2020-10-12 19:58:00 162.6 cm [facility] Medicine Body weight 2020-10-12 19:58:00 86.637 kg [facility] Medicine BMI 2020-10-12 19:58:00 32.79 kg/m2 [facility] Medicine Systolic blood 2020-08-06 19:10:00 133 mm[Hg] [facility] pressure Medicine Diastolic blood 2020-08-06 19:10:00 84 mm[Hg] [facility] pressure Medicine Heart rate 2020-08-06 19:10:00 85 /min [facility] Medicine Body height 2020-08-06 19:10:00 162.6 cm [facility] Body weight 2020-08-06 19:10:00 86.637 kg [facility] Medicine BMI 2020-08-06 19:10:00 32.79 kg/m2 [facility] Medicine Systolic blood 2020-08-06 19:10:00 133 mm[Hg] [facility] of pressure Medicine Diastolic blood 2020-08-06 19:10:00 84 mm[Hg] [facility] of pressure Medicine Heart rate 2020-08-06 19:10:00 85 /min [facility] Medicine Body height 2020-08-06 19:10:00 162.6 cm [facility] Medicine Body weight 2020-08-06 19:10:00 86.637 kg [facility] BMI 2020-08-06 19:10:00 32.79 kg/m2 [facility] Medicine Systolic blood 2020-04-23 16:34:00 147 mm[Hg] [facility] of pressure Medicine Diastolic blood 2020-04-23 16:34:00 81 mm[Hg] [facility] of pressure Medicine Heart rate 2020-04-23 16:34:00 87 /min [facility] ol[facility] of Medicine Respiratory rate 2020-04-23 16:34:00 16 /min [facility] Body height 2020-04-23 16:34:00 162.6 cm [facility] of Medicine Body weight 2020-04-23 16:34:00 85.73 kg [facility] Medicine BMI 2020-04-23 16:34:00 32.44 [facility] Oxygen saturation in 2020-04-23 16:34:00 98 /min [facility] Arterial blood by Medicine Pulse oximetry Systolic blood 2020-04-23 16:34:00 147 mm[Hg] [facility] Medicine Diastolic blood 2020-04-23 16:34:00 81 mm[Hg] [facility] Medicine Heart rate 2020-04-23 16:34:00 87 /min [facility] of Medicine Respiratory rate 2020-04-23 16:34:00 16 /min [facility] Body height 2020-04-23 16:34:00 162.6 cm [facility] Medicine Body weight 2020-04-23 16:34:00 85.73 kg [facility] Medicine BMI 2020-04-23 16:34:00 32.44 kg/m2 [facility] of Medicine Oxygen saturation in 2020-04-23 16:34:00 98 /min [facility] Arterial blood by Medicine Pulse oximetry Body weight 2020-01-22 14:44:00 83.915 kg [facility] BMI 2020-01-22 14:44:00 31.76 kg/m2 [facility] ol[facility] of Medicine Systolic blood 2020-01-22 14:44:00 131 mm[Hg] [facility] of pressure Medicine Diastolic blood 2020-01-22 14:44:00 80 mm[Hg] [facility] of pressure Medicine Heart rate 2020-01-22 14:44:00 83 /min [facility] Medicine Body temperature 2020-01-22 14:44:00 36.61 Leah [facility] Body height 2020-01-22 14:44:00 162.6 cm [facility] Medicine Body weight 2020-01-22 14:44:00 83.915 kg [facility] BMI 2020-01-22 14:44:00 31.76 kg/m2 [facility] of Medicine Systolic blood 2020-01-22 14:44:00 131 mm[Hg] [facility] of pressure Medicine Diastolic blood 2020-01-22 14:44:00 80 mm[Hg] [facility] of pressure Medicine Heart rate 2020-01-22 14:44:00 83 /min [facility] Medicine Body temperature 2020-01-22 14:44:00 36.61 Leah [facility] Body height 2020-01-22 14:44:00 162.6 cm [facility] Medicine Systolic blood 2019-08-16 17:59:00 138 mm[Hg] [facility] of pressure Medicine Diastolic blood 2019-08-16 17:59:00 80 mm[Hg] [facility] of pressure Medicine Heart rate 2019-08-16 17:59:00 78 /min [facility] of Medicine Body height 2019-08-16 17:59:00 165.1 cm [facility] Medicine Body weight 2019-08-16 17:59:00 86.183 kg [facility] Medicine BMI 2019-08-16 17:59:00 31.62 kg/m2 [facility] Medicine Systolic blood 2019-08-16 17:59:00 138 mm[Hg] [facility] of pressure Medicine Diastolic blood 2019-08-16 17:59:00 80 mm[Hg] [facility] pressure Medicine Heart rate 2019-08-16 17:59:00 78 /min [facility] Body height 2019-08-16 17:59:[address] [facility] Body weight 2019-08-16 17:59:[address] [facility] BMI 2019-08-16 17:59:00 31.62 kg/m2 [facility] Systolic (mm Hg) 2022-07-19 19:39:00 [facility] Diastolic (mm Hg) 2022-07-19 19:39:00 [facility] Heart Rate 2022-07-19 19:39:00 [facility] Respitory Rate 2022-07-19 19:39:00 [facility] Height 2022-07-19 19:39:00 160.02 cm [facility] Weight 2022-07-19 19:39:00 [facility] BMI Calculated 2022-07-19 19:39:00 [facility] Heart Rate 2022-07-08 17:03:00 [facility] Systolic (mm Hg) 2022-07-08 17:03:00 [facility] Diastolic (mm Hg) 2022-07-08 17:03:00 [facility] Height 2022-07-08 17:03:00 162.56 cm [facility] Weight 2022-07-08 17:03:00 [facility] BMI Calculated 2022-07-08 17:03:00 [facility] Systolic (mm Hg) 2022-06-02 19:25:00 Frederick [facility] Diastolic (mm Hg) 2022-06-02 19:25:00 Mem o[facility] Adrian Heart Rate 2022-06-02 19:25:00 [facility] Respitory Rate 2022-06-02 19:25:00 [facility] Height 2022-06-02 19:25:00 160.02 cm [facility] Weight 2022-06-02 19:25:00 [facility] BMI Calculated 2022-06-02 19:25:00 [facility] BMI Calculated 2022-04-21 20:49:00 [facility] Systolic (mm Hg) 2022-04-21 20:49:00 [facility] Diastolic (mm Hg) 2022-04-21 20:49:00 Mem o[facility] Adrian Heart Rate 2022-04-21 20:49:00 [facility] Respitory Rate 2022-04-21 20:49:00 [facility] Height 2022-04-21 20:49:00 160.02 cm [facility] Weight 2022-04-21 20:49:00 [facility] Heart Rate 2022-03-23 20:13:00 [facility] Systolic (mm Hg) 2022-03-23 20:13:00 [facility] Diastolic (mm Hg) 2022-03-23 20:13:00 [facility] Adrian Height 2022-03-23 20:13:00 160.02 cm [facility] Weight 2022-03-23 20:13:00 [facility] BMI Calculated 2022-03-23 20:13:00 [facility] Systolic (mm Hg) 2022-03-14 18:40:00 [facility] Diastolic (mm Hg) 2022-03-14 18:40:00 Mem orial Adrian Heart Rate 2022-03-14 18:40:00 [facility] Respitory Rate 2022-03-14 18:40:00 [facility] Height 2022-03-14 18:40:00 160.02 cm [facility] Weight 2022-03-14 18:40:00 [facility] BMI Calculated 2022-03-14 18:40:00 [facility] BP Systolic 2020-02-27 09:50:00 153 mm[Hg] BP Diastolic 2020-02-27 09:50:00 90 mm[Hg] Weight Measured 2020-02-27 09:50:00 184.00 pounds Height Measured 2020-02-27 09:50:00 65.00 inches Body Temperature 2020-02-27 09:50:00 98.60 degrees Heart Rate 2020-02-27 09:50:00 95.00 /min Respiratory Rate 2020-02-27 09:50:00 Procedures Procedure Date / Time Performing Clinician Source Performed XR HIP 3-4 VIEWS BILATERAL 2022-04-19:24:36 [facility] MRI LOWER EXTREMITY 2022-04-11 17:18:36 [facility] EXTERNAL STUDY MRI SPINE EXTERNAL STUDY 2022-04-11 16:56:22 [facility] XR SPINE EXTERNAL STUDY 2022-03-24 19:48:25 [facility] Anoscopy; diagnostic, 2022-03-23 21:58:00 Erika Valenzuela including collection of specimen(s) by brushing or washing, when performed (separate procedure) AMB REF TO PHYSICAL MED 2022-03-21 13:36:35 [facility] POCT URINALYSIS DIPSTICK 2022-03-16 00:00:00 Chuckie [facility] POCT URINALYSIS DIPSTICK 2022-03-16 00:00:00 [facility] ELECTROCARDIOGRAM COMPLETE 2022-02-10 20:56:00 Mohan Dennison [facility] POCT URINALYSIS DIPSTICK 2021-09-22 00:00:00 Chuckie [facility] CTA AAA AND RUNOFF 2021-09-10 [facility]:10[facility] 2021-09-10 15:33[facility] 2021-08-18 00:00:00 Chuckie White [facility] POCT URINALYSIS DIPSTICK 2021-06-30 00:00:00 Chukcie White [facility] ELECTROCARDIOGRAM COMPLETE 2021-06-24 19:56:00 Mohan Dennison [facility] POCT URINALYSIS DIPSTICK 2021-04-14 00:00:00 Chuckie White [facility] POCT URINALYSIS DIPSTICK 2021-03-03 00:00:00 Chuckie White [facility] ELECTROCARDIOGRAM COMPLETE 2021-02-16 14:39:00 Mohan Dennison [facility] POCT URINALYSIS DIPSTICK 2020-12-02 00:00:00 Chuckie White [facility] Hernia repair [facility] Stent placement<sup>2</sup> Frederick rial Touchet Bypass<sup>1</sup> [facility] Surgery<sup>3</sup> [facility] Plan of Care Planned Activity Planned Date Details Comments Source Future Scheduled 2027-09-27 Screening for malignant [facility] Test 00:00:00 neoplasm of colon Medical Ce nter (procedure) [code = 965730472] Future Scheduled 2027-09-27 Screening for malignant [facility] Test 00:00:00 neoplasm of colon Medical Ce [facility]ter (procedure) [code = 415998332] Future Scheduled 2027-09-27 Screening for malignant [facility] Test 00:00:00 neoplasm of colon Medical Ce nter (procedure) [code = 719769096] Future Scheduled 2027-09-27 Screening for malignant [facility] Test 00:00:00 neoplasm of colon Medical Ce nter (procedure) [code = 660298434] Future Scheduled 2027-09-27 Screening for malignant [facility] Test 00:00:00 neoplasm of colon Medical Ce nter (procedure) [code = 239092030] Future Scheduled 2027-09-27 Screening for malignant [facility] Test 00:00:00 neoplasm of colon Medical Ce nter (procedure) [code = 094466523] Future Scheduled 2024-05-11 Lipid panel (procedure) [facility] Test 00:00:00 [code = 00429062] Medical Ce nter Future Scheduled 2024-05-11 Lipid panel (procedure) [facility] Test 00:00:00 [code = 55847594] Medical Ce nter Future Scheduled 2024-05-11 Lipid panel (procedure) [facility] Test 00:00:00 [code = 66600800] Medical Ce nter Future Scheduled 2022-07-29 Diabetic foot [facility] Test 16:56:02 examination of Medicine (regime/therapy) [code = 466791583] Future Scheduled 2022-07-29 ANNUAL DIABETIC [facility] Test 16:56:02 RETINOPATHY SCREENING of Med icine [code = ANNUAL DIABETIC RETINOPATHY SCREENING] Future Scheduled 2022-07-29 Hepatitis C screening [facility] Test 16:56:02 (procedure) [code = of Medic ine 441148377] Future Scheduled 2022-07-29 ZOSTER VACCINE (1 of 2) [facility] Test 16:56:02 [code = ZOSTER VACCINE of Me dicine (1 of 2)] Future Scheduled 2022-07-29 Abdominal aortic [facility] Test 16:56:02 aneurysm screening of Medici ne (procedure) [code = 422212942] Future Scheduled 2022-07-29 Hemoglobin A1c [facility] Test 16:56:02 measurement (procedure) of M edicine [code = 96505056] Future Scheduled 2022-07-29 COVID-19 Vaccine (#1) Postponed from [facility] Test 16:56:02 [code = COVID-19 02/25/1956 of Medicine Vaccine (#1)] (Postpone Reason: Patient declined today) Future Scheduled 2022-07-29 FLU VACCINE > 6 MONTHS Postponed from [facility] Test 16:56:02 [code = FLU VACCINE > 6 06/06/2022 of M edicine MONTHS] (Postpone Reason: Patient declined today) Future Scheduled 2022-07-29 BMI FOLLOW UP PLAN [facility] Test 16:56:02 [code = BMI FOLLOW UP of Med icine PLAN] Future Scheduled 2022-07-29 FALL SCREEN [code = [facility] Test 16:56:02 FALL SCREEN] of Medicine Future Scheduled 2022-07-29 TETANUS SHOT (ADULT) Postponed from [facility] Test 16:56:02 [code = TETANUS SHOT 1970 of Medi cine (ADULT)] (Postpone Reason: Patient declined today) Future Scheduled 2022-07-29 Screening for malignant [facility] Test 16:56:02 neoplasm of colon of Medicin e (procedure) [code = 124899946] Future Scheduled 2022-07-27 [facility] [code = COVID-19 Hospital VACCINE (#1)] Future Scheduled 2022-07-27 [facility] screening [facility] 09:30:28 (procedure) [code = Hospital 631720419] Future Scheduled 2022-07-27 [facility]CREENING [facility] 09:30:28 [code = COLONOSCOPY Hospital SCREENING] Future Scheduled 2022-07-27 SHINGLES VACCINES (1 of [facility] Test 09:30:28 2) [code = SHINGLES Hospital VACCINES (1 of 2)] Future Scheduled 2022-07-27 HEPATITIS B VACCINES (1 [facility] Test 09:30:28 of 3 - Risk 3-dose Hospital series) [code = HEPATITIS B VACCINES (1 of 3 - Risk 3-dose series)] Future Scheduled 2022-07-27 65[facility] Test 09:30:28 VACCINE (1 - PCV) [code Hosp ital = 65+ PNEUMOCOCCAL VACCINE (1 - PCV)] Future Scheduled 2022-07-27 INFLUENZA VACCINE [code [facility] Test 09:30:28 = INFLUENZA VACCINE] Hospita l Future Scheduled 2022-07-12 COVID-19 VACCINE (#1) [facility] 14:00:49 [code = COVID-19 Hospital VACCINE (#1)] Future Scheduled 2022-07-12 [facility] C screening [facility] 14:00:49 (procedure) [code = Hospital 865522535] Future Scheduled 2022-07-12 [facility]CREENING [facility] 14:00:49 [code = COLONOSCOPY Hospital SCREENING] Future Scheduled 2022-07-12 SHINGLES VACCINES (1 of [facility] Test 14:00:49 2) [code = SHINGLES Hospital VACCINES (1 of 2)] Future Scheduled 2022-07-12 HEPATITIS B VACCINES (1 [facility] Test 14:00:49 of 3 - Risk 3-dose Hospital series) [code = HEPATITIS B VACCINES (1 of 3 - Risk 3-dose series)] Future Scheduled 2022-07-12 65+ [facility]OCOCC[facility] Test 14:00:49 VACCINE (1 - PCV) [code Hosp ital = 65+ PNEUMOCOCCAL VACCINE (1 - PCV)] Future Scheduled 2022-07-12 INFLUENZA VACCINE [code [facility] Test 14:00:49 = INFLUENZA VACCINE] Hospita l Future Scheduled 2022-07-12 COVID-19 VACCINE (#1) [facility] 14:00:49 [code = COVID-19 Hospital VACCINE (#1)] Future Scheduled 2022-07-12 [facility] C screening [facility] 14:00:49 (procedure) [code = Hospital 903248092] Future Scheduled 2022-07-12 [facility]CREENING [facility] 14:00:49 [code = COLONOSCOPY Hospital SCREENING] Future Scheduled 2022-07-12 SHINGLES VACCINES (1 of [facility] Test 14:00:49 2) [code = SHINGLES Hospital VACCINES (1 of 2)] Future Scheduled 2022-07-12 HEPATITIS B VACCINES (1 [facility] Test 14:00:49 of 3 - Risk 3-dose Hospital series) [code = HEPATITIS B VACCINES (1 of 3 - Risk 3-dose series)] Future Scheduled 2022-07-12 65+ [facility]OCOCCAL [facility] Test 14:00:49 VACCINE (1 - PCV) [code Hosp ital = 65+ PNEUMOCOCCAL VACCINE (1 - PCV)] Future Scheduled 2022-07-12 INFLUENZA VACCINE [code [facility] Test 14:00:49 = INFLUENZA VACCINE] Hospita l Future Scheduled 2022-07-07 INFLUENZA VACCINE (#1) [facility] [code = INFLUENZA Medical Ce nter VACCINE (#1)] Future Scheduled 2022-07-07 INFLUENZA VACCINE (#1) [facility] 00:00:00 [code = INFLUENZA Medical Ce nter VACCINE (#1)] Future Scheduled 2022-07-07 INFLUENZA VACCINE (#1) [facility] 00:00:00 [code = INFLUENZA Medical Ce nter VACCINE (#1)] Future Scheduled 2022-07-01 TETANUS SHOT (ADULT) [facility] Test 14:58:17 [code = TETANUS SHOT of Medi cine (ADULT)] Future Scheduled 2022-07-01 Diabetic foot [facility] Test 14:58:17 examination of Medicine (regime/therapy) [code = 199220042] Future Scheduled 2022-07-01 ANNUAL DIABETIC [facility] Test 14:58:17 RETINOPATHY SCREENING of Med icine [code = ANNUAL DIABETIC RETINOPATHY SCREENING] Future Scheduled 2022-07-01 Hepatitis C screening [facility] Test 14:58:17 (procedure) [code = of Medic ine 829948396] Future Scheduled 2022-07-01 ZOSTER VACCINE (1 of 2) [facility] Test 14:58:17 [code = ZOSTER VACCINE of Me dicine (1 of 2)] Future Scheduled 2022-07-01 Abdominal aortic [facility] Test 14:58:17 aneurysm screening of Medici ne (procedure) [code = 793147410] Future Scheduled 2022-07-01 Hemoglobin A1c [facility] Test 14:58:17 measurement (procedure) of M edicine [code = 01291312] Future Scheduled 2022-07-01 FLU VACCINE > 6 MONTHS B [facility] Test 14:58:17 [code = FLU VACCINE > 6 of M edicine MONTHS] Future Scheduled 2022-07-01 COVID-19 Vaccine (#1) Postponed from [facility] Test 14:58:17 [code = COVID-19 02/25/1956 of Medicine Vaccine (#1)] (Postpone Reason: Patient declined today) Future Scheduled 2022-07-01 BMI FOLLOW UP PLAN [facility] Test 14:58:17 [code = BMI FOLLOW UP of Med icine PLAN] Future Scheduled 2022-07-01 FALL SCREEN [code = [facility] Test 14:58:17 FALL SCREEN] of Medicine Future Scheduled 2022-07-01 Screening for malignant [facility] Test 14:58:17 neoplasm of colon of Medicin e (procedure) [code = 969006282] Future Scheduled 2022-06-10 [facility] [code = COVID-19 of Medicine Vaccine (#1)] Future Scheduled 2022-06-10 [facility] 65+ [facility] PCV) [code = of Medicine Pneumococcal 65+ (1 - PCV)] Future Scheduled 2022-06-10 TETANUS SHOT (ADULT) [facility] Test 09:51:23 [code = TETANUS SHOT of Medi cine (ADULT)] Future Scheduled 2022-06-10 Diabetic foot [facility] Test 09:51:23 examination of Medicine (regime/therapy) [code = 871757214] Future Scheduled 2022-06-10 ANNUAL DIABETIC [facility] Test 09:51:23 RETINOPATHY SCREENING of Med icine [code = ANNUAL DIABETIC RETINOPATHY SCREENING] Future Scheduled 2022-06-10 Hepatitis C screening [facility] Test 09:51:23 (procedure) [code = of Medic ine 755440376] Future Scheduled 2022-06-10 ZOSTER VACCINE (1 of 2) [facility] Test 09:51:23 [code = ZOSTER VACCINE of Me dicine (1 of 2)] Future Scheduled 2022-06-10 Abdominal aortic [facility] Test 09:51:23 aneurysm screening of Medici ne (procedure) [code = 432510065] Future Scheduled 2022-06-10 Hemoglobin A1c [facility] Test 09:51:23 measurement (procedure) of M edicine [code = 60031333] Future Scheduled 2022-06-10 FLU VACCINE > 6 MONTHS [facility] Test 09:51:23 [code = FLU VACCINE > 6 of M edicine MONTHS] Future Scheduled 2022-06-10 BMI FOLLOW UP PLAN [employer] Test 09:51:23 [code = BMI FOLLOW UP of Med icine PLAN] Future Scheduled 2022-06-10 FALL SCREEN [code = [facility] Test 09:51:23 FALL SCREEN] of Medicine Future Scheduled 2022-06-10 Screening for malignant [facility] Test 09:51:23 neoplasm of colon of Medicin e (procedure) [code = 140154179] Future Scheduled 2022-06-10 US 1 Occurrences [facility] Test 09:43:01 AORTA,IVC,ILIACS,GRAFT starting of dicine COMPLETE DUPLEX [code = 06/10/2022 until 17773-1] 06/10/2023 Future Scheduled 2022-05-17 COVID-19 Vaccine (#1) [facility] Test 10:26:54 [code = COVID-19 of Medicine Vaccine (#1)] Future Scheduled 2022-05-17 Pneumococcal 65+ (1 - [facility] Test 10:26:54 PCV) [code = of Medicine Pneumococcal 65+ (1 - PCV)] Future Scheduled 2022-05-17 TETANUS SHOT (ADULT) [facility] Test 10:26:54 [code = TETANUS SHOT of Medi cine (ADULT)] Future Scheduled 2022-05-17 Diabetic foot [facility] Test 10:26:54 examination of Medicine (regime/therapy) [code = 716578305] Future Scheduled 2022-05-17 ANNUAL DIABETIC [facility] Test 10:26:54 RETINOPATHY SCREENING of Med icine [code = ANNUAL DIABETIC RETINOPATHY SCREENING] Future Scheduled 2022-05-17 Hepatitis C screening [facility] Test 10:26:54 (procedure) [code = of Medic ine 991941183] Future Scheduled 2022-05-17 ZOSTER VACCINE (1 of 2) [facility] Test 10:26:54 [code = ZOSTER VACCINE of Me dicine (1 of 2)] Future Scheduled 2022-05-17 MEDICARE IPPE (WELCOME B [facility] Test 10:26:54 TO MEDICARE) [code = of Medi cine MEDICARE IPPE (WELCOME TO MEDICARE)] Future Scheduled 2022-05-17 Abdominal aortic [facility] Test 10:26:54 aneurysm screening of Medici ne (procedure) [code = 946964357] Future Scheduled 2022-05-17 Hemoglobin A1c [facility] Test 10:26:54 measurement (procedure) of M edicine [code = 59113931] Future Scheduled 2022-05-17 FLU VACCINE > 6 MONTHS [facility] Test 10:26:54 [code = FLU VACCINE > 6 of M edicine MONTHS] Future Scheduled 2022-05-17 BMI FOLLOW UP PLAN [facility] Test 10:26:54 [code = BMI FOLLOW UP of Med icine PLAN] Future Scheduled 2022-05-17 FALL SCREEN [code = [facility] Test 10:26:54 FALL SCREEN] of Medicine Future Scheduled 2022-05-17 Screening for malignant [facility] Test 10:26:54 neoplasm of colon of Medicin e (procedure) [code = 027458844] Future Scheduled 2022-05-17 COVID-19 Vaccine (#1) [facility] Test 10:05:13 [code = COVID-19 of Medicine Vaccine (#1)] Future Scheduled 2022-05-17 Pneumococcal 65+ (1 - [facility] Test 10:05:13 PCV) [code = of Medicine Pneumococcal 65+ (1 - PCV)] Future Scheduled 2022-05-17 TETANUS SHOT (ADULT) [facility] Test 10:05:13 [code = TETANUS SHOT of Medi cine (ADULT)] Future Scheduled 2022-05-17 Diabetic foot [facility] Test 10:05:13 examination of Medicine (regime/therapy) [code = 038428148] Future Scheduled 2022-05-17 ANNUAL DIABETIC [facility] Test 10:05:13 RETINOPATHY SCREENING of Med icine [code = ANNUAL DIABETIC RETINOPATHY SCREENING] Future Scheduled 2022-05-17 Hepatitis C screening [facility] Test 10:05:13 (procedure) [code = of Medic ine 963669831] Future Scheduled 2022-05-17 ZOSTER VACCINE (1 of 2) [facility] Test 10:05:13 [code = ZOSTER VACCINE of Me salgado (1 of 2)] Future Scheduled 2022-05-17 MEDICARE IPPE (WELCOME B [facility] Test 10:05:13 TO MEDICARE) [code = of Medi cine MEDICARE IPPE (WELCOME TO MEDICARE)] Future Scheduled 2022-05-17 Abdominal aortic [facility] Test 10:05:13 aneurysm screening of Luisi ne (procedure) [code = 669747224] Future Scheduled 2022-05-17 Hemoglobin A1c [facility] Test 10:05:13 measurement (procedure) of M edicine [code = 60007933] Future Scheduled 2022-05-17 FLU VACCINE > 6 MONTHS B [facility] Test 10:05:13 [code = FLU VACCINE > 6 of M edicine MONTHS] Future Scheduled 2022-05-17 BMI FOLLOW UP PLAN [facility] Test 10:05:13 [code = BMI FOLLOW UP of Med icine PLAN] Future Scheduled 2022-05-17 FALL SCREEN [code = [facility] Test 10:05:13 FALL SCREEN] of Medicine Future Scheduled 2022-05-17 Screening for malignant [facility] Test 10:05:13 neoplasm of colon of Luisin e (procedure) [code = 298194373] Future Scheduled 2022-05-06 COVID-19 Vaccine (#1) [facility] Test 10:03:26 [code = COVID-19 of Medicine Vaccine (#1)] Future Scheduled 2022-05-06 Pneumococcal 65+ (1 - [facility] Test 10:03:26 PCV) [code = of Medicine Pneumococcal 65+ (1 - PCV)] Future Scheduled 2022-05-06 TETANUS SHOT (ADULT) [facility] Test 10:03:26 [code = TETANUS SHOT of Medi cine (ADULT)] Future Scheduled 2022-05-06 Diabetic foot [facility] Test 10:03:26 examination of Medicine (regime/therapy) [code = 703037921] Future Scheduled 2022-05-06 ANNUAL DIABETIC [facility] Test 10:03:26 RETINOPATHY SCREENING of Med icine [code = ANNUAL DIABETIC RETINOPATHY SCREENING] Future Scheduled 2022-05-06 Hepatitis C screening [facility] Test 10:03:26 (procedure) [code = of Medic ine 834092109] Future Scheduled 2022-05-06 ZOSTER VACCINE (1 of 2) [facility] Test 10:03:26 [code = ZOSTER VACCINE of Me dicine (1 of 2)] Future Scheduled 2022-05-06 MEDICARE IPPE (WELCOME B [facility] Test 10:03:26 TO MEDICARE) [code = of Medi cine MEDICARE IPPE (WELCOME TO MEDICARE)] Future Scheduled 2022-05-06 Abdominal aortic [facility] Test 10:03:26 aneurysm screening of Medici ne (procedure) [code = 365466227] Future Scheduled 2022-05-06 Hemoglobin A1c [facility] Test 10:03:26 measurement (procedure) of M edicine [code = 45801182] Future Scheduled 2022-05-06 FLU VACCINE > 6 MONTHS B [facility] Test 10:03:26 [code = FLU VACCINE > 6 of M edicine MONTHS] Future Scheduled 2022-05-06 FALL SCREEN [code = [facility] Test 10:03:26 FALL SCREEN] of Medicine Future Scheduled 2022-05-[address] UP PLAN [facility] Test 10:03:26 [code = BMI FOLLOW UP of Med icine PLAN] Future Scheduled 2022-05-06 Screening for malignant [facility] Test 10:03:26 neoplasm of colon of Medicin e (procedure) [code = 238205074] Future Scheduled 2022-05-04 COVID-19 Vaccine (#1) [facility] Test 15:29:04 [code = COVID-19 of Medicine Vaccine (#1)] Future Scheduled 2022-05-04 Pneumococcal 65+ (1 - [facility] Test 15:29:04 PCV) [code = of Medicine Pneumococcal 65+ (1 - PCV)] Future Scheduled 2022-05-04 TETANUS SHOT (ADULT) [facility] Test 15:29:04 [code = TETANUS SHOT of Medi cine (ADULT)] Future Scheduled 2022-05-04 Diabetic foot [facility] Test 15:29:04 examination of Medicine (regime/therapy) [code = 958194841] Future Scheduled 2022-05-04 ANNUAL DIABETIC [facility] Test 15:29:04 RETINOPATHY SCREENING of Med icine [code = ANNUAL DIABETIC RETINOPATHY SCREENING] Future Scheduled 2022-05-04 Hepatitis C screening [facility] Test 15:29:04 (procedure) [code = of Medic ine 859439888] Future Scheduled 2022-05-04 ZOSTER VACCINE (1 of 2) [facility] Test 15:29:04 [code = ZOSTER VACCINE of Me dicine (1 of 2)] Future Scheduled 2022-05-04 Abdominal aortic [facility] Test 15:29:04 aneurysm screening of Medici ne (procedure) [code = 210008674] Future Scheduled 2022-05-04 Hemoglobin A1c [facility] Test 15:29:04 measurement (procedure) of M edicine [code = 95581851] Future Scheduled 2022-05-04 [facility] [code = FLU VACCINE > 6 of M edicine MONTHS] Future Scheduled 2022-05-04 FALL SCREEN [code = [facility] Test 15:29:04 FALL SCREEN] of Medicine Future Scheduled 2022-05-04 BMI FOLLOW UP PLAN [facility] Test 15:29:04 [code = BMI FOLLOW UP of Med icine PLAN] Future Scheduled 2022-05-04 Screening for malignant [facility] Test 15:29:04 neoplasm of colon of Medicin e (procedure) [code = 503266664] Future Scheduled 2022-04-12 Screening for malignant [facility] Test 14:55:00 neoplasm of colon of Medicin e (procedure) [code = 964165178] Future Scheduled 2022-04-12 COVID-19 Vaccine (#1) [facility] Test 14:55:00 [code = COVID-19 of Medicine Vaccine (#1)] Future Scheduled 2022-04-12 Pneumococcal 65+ (1 - [facility] Test 14:55:00 PCV) [code = of Medicine Pneumococcal 65+ (1 - PCV)] Future Scheduled 2022-04-12 TETANUS SHOT (ADULT) [facility] Test 14:55:00 [code = TETANUS SHOT of Medi cine (ADULT)] Future Scheduled 2022-04-12 Diabetic foot [facility] Test 14:55:00 examination of Medicine (regime/therapy) [code = 566481174] Future Scheduled 2022-04-12 ANNUAL DIABETIC [facility] Test 14:55:00 RETINOPATHY SCREENING of Med icine [code = ANNUAL DIABETIC RETINOPATHY SCREENING] Future Sched[facility] 2022-04-12 [facility] (procedure) [code = of Medic ine 913231629] Future Scheduled 2022-04-12 ZOSTER VACCINE (1 of 2) [facility] Test 14:55:00 [code = ZOSTER VACCINE of Me dicine (1 of 2)] Future Scheduled 2022-04-12 Abdominal aortic [facility] Test 14:55:00 aneurysm screening of Luisi ne (procedure) [code = 539517584] Future Scheduled 2022-04-[address] UP [address]AN [facility] Test 14:55:00 [code = BMI FOLLOW UP of Med icine PLAN] Future Scheduled 2022-04-12 Hemoglobin A1c [facility] Test 14:55:00 measurement (procedure) of M edicine [code = 94486480] Future Scheduled 2022-04-12 FLU VACCINE > 6 MONTHS [facility] Test 14:55:00 [code = FLU VACCINE > 6 of M edicine MONTHS] Future Scheduled 2022-04-12 FALL SCREEN [code = [facility] Test 14:55:00 FALL SCREEN] of Medicine Future Scheduled 2022-03-30 PHI PANEL (URO DEPT) Expected: [facility] Test 00:00:00 [code = 78088] 03/30/2022 of Medicine (Approximate), Expires: 04/15/2022 Future Scheduled 2022-03-29 Screening for malignant [facility] Test 16:47:24 neoplasm of colon of Maryan e (procedure) [code = 260825025] Future Scheduled 2022-03-29 COVID-19 Vaccine (#1) [facility] Test 16:47:24 [code = COVID-19 of Medicine Vaccine (#1)] Future Scheduled 2022-03-29 Pneumococcal 65+ (1 - [facility] Test 16:47:24 PCV) [code = of Medicine Pneumococcal 65+ (1 - PCV)] Future Scheduled 2022-03-29 TETANUS SHOT (ADULT) [facility] Test 16:47:24 [code = TETANUS SHOT of Medi cine (ADULT)] Future Scheduled 2022-03-29 Diabetic foot [facility] Test 16:47:24 examination of Medicine (regime/therapy) [code = 079987987] Future Scheduled 2022-03-29 ANNUAL DIABETIC [facility] Test 16:47:24 RETINOPATHY SCREENING of Med icine [code = ANNUAL DIABETIC RETINOPATHY SCREENING] Future Scheduled 2022-03-29 Hepatitis C screening [facility] [employer] [facility] 16:47:24 (procedure) [code = of Medic ine 704313695] Future Scheduled 2022-03-29 ZOSTER VACCINE (1 of 2) [facility] Test 16:47:24 [code = ZOSTER VACCINE of Me dicine (1 of 2)] Future Scheduled 2022-03-29 Abdominal aortic [facility] Test 16:47:24 aneurysm screening of Medici ne (procedure) [code = 376275855] Future Scheduled 2022-03-29 BMI FOLLOW UP PLAN [facility] Test 16:47:24 [code = BMI FOLLOW UP of Med icine PLAN] Future Scheduled 2022-03-29 Hemoglobin A1c [facility] Test 16:47:24 measurement (procedure) of M edicine [code = 14794751] Future Scheduled 2022-03-29 FLU VACCINE > 6 MONTHS [facility] Test 16:47:24 [code = FLU VACCINE > 6 of M edicine MONTHS] Future Scheduled 2022-03-29 FALL SCREEN [code = [facility] [employer] Test 16:47:24 FALL SCREEN] of Medicine Future Scheduled 2022-03-29 MRI LUMBAR SPINE WO 1 Occurrences [facility] Test 15:51:19 CONTRAST [code = starting of Medicine 92275-5] 03/29/2022 until 03/29/2023 Future Scheduled 2022-03-29 MRI HIP LEFT WO 1 Occurrences [facility] Test 15:51:19 CONTRAST [code = 75602] starting of M edicine 03/29/2022 until 03/29/2023 Future Scheduled 2022-03-22 Screening for malignant [facility] Test 09:09:58 neoplasm of colon of Medicin e (procedure) [code = 556565744] Future Scheduled 2022-03-22 COVID-19 Vaccine (1) [facility] Test 09:09:58 [code = COVID-19 of Medicine Vaccine (1)] Future Scheduled 2022-03-22 TETANUS SHOT (ADULT) [facility] Test 09:09:58 [code = TETANUS SHOT of Medi cine (ADULT)] Future Scheduled 2022-03-22 Diabetic foot [facility] Test 09:09:58 examination of Medicine (regime/therapy) [code = 152884770] Future Scheduled 2022-03-22 ANNUAL DIABETIC [facility] Test 09:09:58 RETINOPATHY SCREENING of Jasvir kayne [code = ANNUAL DIABETIC RETINOPATHY SCREENING] Future Scheduled 2022-03-22 Hepatitis C screening [employer] Test 09:09:58 (procedure) [code = of Medic ine 305259976] Future Scheduled 2022-03-22 ZOSTER VACCINE (1 of 2) [facility] Test 09:09:58 [code = ZOSTER VACCINE of Me dicine (1 of 2)] Future Scheduled 2022-03-22 Abdominal aortic [facility] Test 09:09:58 aneurysm screening of Medici ne (procedure) [code = 695467863] Future Scheduled 2022-03-22 Pneumococcal 65+ (1 of [facility] Test 09:09:58 1 - PPSV23) [code = of Medic ine Pneumococcal 65+ (1 of 1 - PPSV23)] Future Scheduled 2022-03-[address] UP [address]AN [facility] Test 09:09:58 [code = BMI FOLLOW UP of Jasvir frey PLAN] Future Scheduled 2022-03-22 Hemoglobin A1c [facility] Test 09:09:58 measurement (procedure) of M edicine [code = 50227282] Future Scheduled 2022-03-22 FLU VACCINE > 6 MONTHS [facility] Test 09:09:58 [code = FLU VACCINE > 6 of M edicine MONTHS] Future Scheduled 2022-03-22 FALL SCREEN [code = [employer] Test 09:09:58 FALL SCREEN] of Medicine Future Scheduled 2022-03-18 US ARTERIAL LEG RIGHT 1 Occurrences [facility] Test 11:47:53 [code = 51216] starting of Medicine 03/18/2022 until 03/18/2023 Future Scheduled 2022-03-18 US ANK/BRAC INDICES, 1 Occurrences [facility] [employer] Test 11:40:17 SINGLE BILAT [code = starting of Medi cine 91792] 03/18/2022 until 03/18/2023 Future Scheduled 2022-03-16 Screening for malignant [facility] Test 15:15:08 neoplasm of colon of Medicin e (procedure) [code = 648310459] Future Scheduled 2022-03-16 COVID-19 Vaccine (1) [facility] Test 15:15:08 [code = COVID-19 of Medicine Vaccine (1)] Future Scheduled 2022-03-16 TETANUS SHOT (ADULT) [facility] Test 15:15:08 [code = TETANUS SHOT of Medi cine (ADULT)] Future Scheduled 2022-03-16 Diabetic foot [facility] Test 15:15:08 examination of Medicine (regime/therapy) [code = 715572573] Future Scheduled 2022-03-16 ANNUAL DIABETIC [facility] Test 15:15:08 RETINOPATHY SCREENING of Med icine [code = ANNUAL DIABETIC RETINOPATHY SCREENING] Future Scheduled 2022-03-16 Hepatitis C screening [facility] Test 15:15:08 (procedure) [code = of Medic ine 144190505] Future Scheduled 2022-03-16 ZOSTER VACCINE (1 of 2) [facility] Test 15:15:08 [code = ZOSTER VACCINE of Me dicine (1 of 2)] Future Scheduled 2022-03-16 Abdominal aortic [facility] Test 15:15:08 aneurysm screening of Medici ne (procedure) [code = 363119337] Future Scheduled 2022-03-16 Pneumococcal 65+ (1 of B [facility] Test 15:15:08 1 - PPSV23) [code = of Medic ine Pneumococcal 65+ (1 of 1 - PPSV23)] Future Scheduled 2022-03-16 BMI FOLLOW UP PLAN [facility] Test 15:15:08 [code = BMI FOLLOW UP of Med icine PLAN] Future Scheduled 2022-03-16 Hemoglobin A1c [facility] Test 15:15:08 measurement (procedure) of M edicine [code = 77184266] Future Scheduled 2022-03-16 FLU VACCINE > 6 MONTHS [facility] Test 15:15:08 [code = FLU VACCINE > 6 of M edicine MONTHS] Future Scheduled 2022-03-16 FALL SCREEN [code = [facility] [employer] Test 15:15:08 FALL SCREEN] of Medicine Future Scheduled 2022-02-21 Screening for malignant [facility] Test 00:15:07 neoplasm of colon of Medicin e (procedure) [code = 983105907] Future Scheduled 2022-02-21 COVID-19 Vaccine (1) [facility] Test 00:15:07 [code = COVID-19 of Medicine Vaccine (1)] Future Scheduled 2022-02-21 TETANUS SHOT (ADULT) [facility] Test 00:15:07 [code = TETANUS SHOT of Medi cine (ADULT)] Future Scheduled 2022-02-21 Diabetic foot [facility] Test 00:15:07 examination of Medicine (regime/therapy) [code = 465328791] Future Scheduled 2022-02-21 ANNUAL DIABETIC [facility] Test 00:15:07 RETINOPATHY SCREENING of Med rahulne [code = ANNUAL DIABETIC RETINOPATHY SCREENING] Future Scheduled 2022-02-21 Hepatitis C screening [facility] Test 00:15:07 (procedure) [code = of Medic ine 168412472] Future Scheduled 2022-02-21 ZOSTER VACCINE (1 of 2) [facility] Test 00:15:07 [code = ZOSTER VACCINE of Me dicine (1 of 2)] Future Scheduled 2022-02-21 Abdominal aortic [facility] Test 00:15:07 aneurysm screening of Medici ne (procedure) [code = 319431016] Future Scheduled 2022-02-21 Pneumococcal 65+ (1 of [facility] Test 00:15:07 1 - PPSV23) [code = of Medic ine Pneumococcal 65+ (1 of 1 - PPSV23)] Future Scheduled 2022-02-[address] UP [address]AN [facility] [employer] Test 00:15:07 [code = BMI FOLLOW UP of Jasvir frey PLAN] Future Scheduled 2022-02-21 Hemoglobin A1c [facility] Test 00:15:07 measurement (procedure) of M edicine [code = 01892920] Future Scheduled 2022-02-21 FLU VACCINE > 6 MONTHS [facility] Test 00:15:07 [code = FLU VACCINE > 6 of M edicine MONTHS] Future Scheduled 2022-02-21 FALL SCREEN [code = [facility] Test 00:15:07 FALL SCREEN] of Medicine Future Scheduled 2022-02-10 Screening for malignant [facility] Test 16:13:11 neoplasm of colon of Medicin e (procedure) [code = 378194528] Future Scheduled 2022-02-10 COVID-19 Vaccine (1) [facility] Test 16:13:11 [code = COVID-19 of Medicine Vaccine (1)] Future Scheduled 2022-02-10 TETANUS SHOT (ADULT) [facility] Test 16:13:11 [code = TETANUS SHOT of Medi cine (ADULT)] Future Scheduled 2022-02-10 Diabetic foot [facility] Test 16:13:11 examination of Medicine (regime/therapy) [code = 442560116] Future Scheduled 2022-02-10 ANNUAL DIABETIC [facility] Test 16:13:11 RETINOPATHY SCREENING of Med icine [code = ANNUAL DIABETIC RETINOPATHY SCREENING] Future Scheduled 2022-02-10 Hepatitis C screening [facility] Test 16:13:11 (procedure) [code = of Medic ine 323280807] Future Scheduled 2022-02-10 ZOSTER VACCINE (1 of 2) [facility] Test 16:13:11 [code = ZOSTER VACCINE of Me dicine (1 of 2)] Future Scheduled 2022-02-10 Abdominal aortic [facility] Test 16:13:11 aneurysm screening of Medici ne (procedure) [code = 221843157] Future Scheduled 2022-02-10 Pneumococcal 65+ (1 of B [facility] Test 16:13:11 1 - PPSV23) [code = of Medic ine Pneumococcal 65+ (1 of 1 - PPSV23)] Future Scheduled 2022-02-[address] UP [address]AN [facility] [employer] Test 16:13:11 [code = BMI FOLLOW UP of Med icine PLAN] Future Scheduled 2022-02-10 Hemoglobin A1c [facility] Test 16:13:11 measurement (procedure) of M edicine [code = 32159933] Future Scheduled 2022-02-10 FLU VACCINE > 6 MONTHS B [facility] Test 16:13:11 [code = FLU VACCINE > 6 of M edicine MONTHS] Future Scheduled 2022-02-10 FALL SCREEN [code = [employer] Test 16:13:11 FALL SCREEN] of Medicine Future Scheduled 2022-02-10 ELECTROCARDIOGRAM [facility] Test 15:50:28 COMPLETE [code = 14313] of M edicine Future Scheduled 2022-01-17 US CAROTID [code = Expected: [employer] Test 00:00:00 90093] 01/17/2022, of Medicine Expires: 12/20/2022 Future Scheduled 2021-12-20 Screening for malignant [facility] Test 12:58:23 neoplasm of colon of Medicin e (procedure) [code = 342078692] Future Scheduled 2021-12-20 COVID-19 Vaccine (1) [facility] Test 12:58:23 [code = COVID-19 of Medicine Vaccine (1)] Future Scheduled 2021-12-20 TETANUS SHOT (ADULT) [facility] Test 12:58:23 [code = TETANUS SHOT of Medi cine (ADULT)] Future Scheduled 2021-12-20 Diabetic foot [facility] Test 12:58:23 examination of Medicine (regime/therapy) [code = 607071753] Future Scheduled 2021-12-20 ANNUAL DIABETIC [facility] Test 12:58:23 RETINOPATHY SCREENING of Med icine [code = ANNUAL DIABETIC RETINOPATHY SCREENING] Future Scheduled 2021-12-20 Hepatitis C screening [facility] Test 12:58:23 (procedure) [code = of Medic ine 866781056] Future Scheduled 2021-12-20 ZOSTER VACCINE (1 of 2) [facility] Test 12:58:23 [code = ZOSTER VACCINE of Me dicine (1 of 2)] Future Scheduled 2021-12-20 Abdominal aortic [facility] Test 12:58:23 aneurysm screening of Medici ne (procedure) [code = 124641312] Future Scheduled 2021-12-20 Pneumococcal 65+ (1 of B [facility] Test 12:58:23 1 - PPSV23) [code = of Medic ine Pneumococcal 65+ (1 of 1 - PPSV23)] Future Scheduled 2021-12-20 BMI FOLLOW UP PLAN [facility] Test 12:58:23 [code = BMI FOLLOW UP of Med icine PLAN] Future Scheduled 2021-12-20 Hemoglobin A1c [facility] Test 12:58:23 measurement (procedure) of M edicine [code = 37903894] Future Scheduled 2021-12-20 FALL SCREEN [code = [facility] [employer] Test 12:58:23 FALL SCREEN] of Medicine Future Scheduled 2021-12-10 Screening for malignant [facility] Test 10:45:05 neoplasm of colon of Medicin e (procedure) [code = 839833011] Future Scheduled 2021-12-10 COVID-19 Vaccine (1) [facility] Test 10:45:05 [code = COVID-19 of Medicine Vaccine (1)] Future Scheduled 2021-12-10 TETANUS SHOT (ADULT) [facility] Test 10:45:05 [code = TETANUS SHOT of Medi cine (ADULT)] Future Scheduled 2021-12-10 Diabetic foot [facility] Test 10:45:05 examination of Medicine (regime/therapy) [code = 912813128] Future Scheduled 2021-12-10 ANNUAL DIABETIC [facility] Test 10:45:05 RETINOPATHY SCREENING of Med icine [code = ANNUAL DIABETIC RETINOPATHY SCREENING] Future Scheduled 2021-12-10 Hepatitis C screening [facility] Test 10:45:05 (procedure) [code = of Medic ine 324122254] Future Scheduled 2021-12-10 ZOSTER VACCINE (1 of 2) [facility] Test 10:45:05 [code = ZOSTER VACCINE of Me dicine (1 of 2)] Future Scheduled 2021-12-10 Abdominal aortic [facility] Test 10:45:05 aneurysm screening of Medici ne (procedure) [code = 930080600] Future Scheduled 2021-12-10 Pneumococcal 65+ (1 of B [facility] Test 10:45:05 1 - PPSV23) [code = of Medic ine Pneumococcal 65+ (1 of 1 - PPSV23)] Future Scheduled 2021-12-[address] UP [address]AN [facility] Test 10:45:05 [code = BMI FOLLOW UP of Med icine PLAN] Future Scheduled 2021-12-10 Hemoglobin A1c [facility] Test 10:45:05 measurement (procedure) of M gibson [code = 72232133] Future Scheduled 2021-12-10 FALL SCREEN [code = [facility] Test 10:45:05 FALL SCREEN] of Medicine Future Scheduled 2021-12-10 US 1 Occurrences [facility] Test 09:52:35 AORTA,IVC,ILIACS,GRAFT starting of Me dicine COMPLETE DUPLEX [code = 12/10/2021 until 77274-4] 12/10/2022 Future Scheduled 2021-11-17 Screening for malignant [facility] Test 14:44:57 neoplasm of colon of Medicin e (procedure) [code = 158594680] Future Scheduled 2021-11-17 [facility] 65+ [facility]:44[facility]57 2 - PPSV23) [code = of Medic ine Pneumococcal 65+ (1 of 2 - PPSV23)] Future Scheduled 2021-11-17 COVID-19 Vaccine (1) [employer] Test 14:44:57 [code = COVID-19 of Medicine Vaccine (1)] Future Scheduled 2021-11-17 TETANUS SHOT (ADULT) [employer] Test 14:44:57 [code = TETANUS SHOT of Medi cine (ADULT)] Future Scheduled 2021-11-17 Hepatitis C screening [employer] Test 14:44:57 (procedure) [code = of Medic ine 489240356] Future Scheduled 2021-11-17 ZOSTER VACCINE (1 of 2) [facility] Test 14:44:57 [code = ZOSTER VACCINE of Me dicine (1 of 2)] Future Scheduled 2021-11-17 MEDICARE IPPE (WELCOME [facility] Test 14:44:57 TO MEDICARE) [code = of Medi cine MEDICARE IPPE (WELCOME TO MEDICARE)] Future Scheduled 2021-11-17 Abdominal aortic [employer] Test 14:44:57 aneurysm screening of Medici ne (procedure) [code = 359262067] Future Scheduled 2021-11-17 BMI FOLLOW UP PLAN [employer] Test 14:44:57 [code = BMI FOLLOW UP of Med icine PLAN] Future Scheduled 2021-11-17 FALL SCREEN [code = [employer] Test 14:44:57 FALL SCREEN] of Medicine Future Scheduled 2021-11-12 CBC W/AUTO DIFF WITH Ordered: [employer] Test 17:03:41 PLATELETS [code = 11/12/2021 of Medicin e 45673-2] Future Scheduled 2021-11-12 COMPREHENSIVE METABOLIC Ordered: [employer] Test 17:03:41 PANEL [code = 13510-6] 11/12/2021 of Me dicine Future Scheduled 2021-11-12 HEMOGLOBIN A1C [code = Ordered: [facility] [employer] Test 17:03:41 4548-4] 11/12/2021 of Medicine Future Scheduled 2021-11-12 LIPID PANEL [code = Ordered: [employer] Test 17:03:41 55974-3] 11/12/2021 of Medicine Future Scheduled 2021-11-12 TSH + FREE T4 PROFILE Ordered: [employer] Test 17:03:41 [code = NOCPT] 11/12/2021 of Medicine Future Scheduled 2021-11-12 PSA [code = 2857-1] Ordered: [employer] Test 17:03:41 11/12/2021 of Medicine Future Scheduled 2021-11-12 Screening for malignant [facility] Test 16:55:06 neoplasm of colon of Medicin e (procedure) [code = 093249779] Future Scheduled 2021-11-12 Pneumococcal 65+ (1 of [facility] Test 16:55:06 2 - PPSV23) [code = of Medic ine Pneumococcal 65+ (1 of 2 - PPSV23)] Future Scheduled 2021-11-12 COVID-19 Vaccine (1) [facility] Test 16:55:06 [code = COVID-19 of Medicine Vaccine (1)] Future Scheduled 2021-11-12 TETANUS SHOT (ADULT) [employer] Test 16:55:06 [code = TETANUS SHOT of Medi cine (ADULT)] Future Scheduled 2021-11-12 Hepatitis C screening [employer] Test 16:55:06 (procedure) [code = of Medic ine 110558301] Future Scheduled 2021-11-12 ZOSTER VACCINE (1 of 2) [facility] Test 16:55:06 [code = ZOSTER VACCINE of Mi dicine (1 of 2)] Future Scheduled 2021-11-12 MEDICARE IPPE (WELCOME [facility] Test 16:55:06 TO MEDICARE) [code = of Medi cine MEDICARE IPPE (WELCOME TO MEDICARE)] Future Scheduled 2021-11-12 Abdominal aortic [facility] Test 16:55:06 aneurysm screening of Medici ne (procedure) [code = 923365948] Future Scheduled 2021-11-[address] UP [address]AN [facility] Test 16:55:06 [code = BMI FOLLOW UP of Med icine PLAN] Future Scheduled 2021-11-12 FALL SCREEN [code = [employer] Test 16:55:06 FALL SCREEN] of Medicine Diagnostic Test 2021-11-12 MAMMO DIAGNOSTIC BILAT Expected: [employer] Pending 00:00:00 (US/BIOP IF NEEDED) 11/12/2021, of Medic ine [code = 45574-2] Expires: 05/12/2023 Future Scheduled 2021-11-[address] [facility] Test 00:00:00 (12+) [code = Medical Center DEPRESSION SCREENING (12+)] Future Scheduled 2021-11-06 FALLS RISK SCREENING [facility] Test 00:00:00 [code = FALLS RISK Medical C enter SCREENING] Future Scheduled 2021-11-[address] [facility] Test 00:00:00 (12+) [code = Medical Center DEPRESSION SCREENING (12+)] Future Scheduled 2021-11-06 FALLS RISK SCREENING [facility] Test 00:00:00 [code = FALLS RISK Medical C enter SCREENING] Future Scheduled 2021-11-[address] [facility] Test 00:00:00 (12+) [code = Medical Center DEPRESSION SCREENING (12+)] Future Scheduled 2021-11-06 FALLS RISK SCREENING [facility] Test 00:00:00 [code = FALLS RISK Medical C enter SCREENING] Future Scheduled 2021-10-04 Screening for malignant [facility] Test 14:20:03 neoplasm of colon of Medicin e (procedure) [code = 932082123] Future Scheduled 2021-10-04 Pneumococcal 65+ (1 of B [facility] Test 14:20:03 2 - PPSV23) [code = of Medic ine Pneumococcal 65+ (1 of 2 - PPSV23)] Future Scheduled 2021-10-04 COVID-19 Vaccine (1) [facility] Test 14:20:03 [code = COVID-19 of Medicine Vaccine (1)] Future Scheduled 2021-10-04 TETANUS SHOT (ADULT) [facility] Test 14:20:03 [code = TETANUS SHOT of Medi cine (ADULT)] Future Scheduled 2021-10-04 Hepatitis C screening [facility] Test 14:20:03 (procedure) [code = of Medic ine 730152187] Future Scheduled 2021-10-04 ZOSTER VACCINE (1 of 2) [facility] Test 14:20:03 [code = ZOSTER VACCINE of Me dicine (1 of 2)] Future Scheduled 2021-10-04 MEDICARE IPPE (WELCOME [facility] Test 14:20:03 TO MEDICARE) [code = of Medi cine MEDICARE IPPE (WELCOME TO MEDICARE)] Future Scheduled 2021-10-04 Abdominal aortic [facility] Test 14:20:03 aneurysm screening of Medici ne (procedure) [code = 763424365] Future Scheduled 2021-10-04 BMI FOLLOW UP PLAN [facility] Test 14:20:03 [code = BMI FOLLOW UP of Med icine PLAN] Future Scheduled 2021-10-04 FALL SCREEN [code = [employer] Test 14:20:03 FALL SCREEN] of Medicine Future Scheduled 2021-09-22 Screening for malignant [employer] Test 16:06:05 neoplasm of colon of Medicin e (procedure) [code = 918853261] Future Scheduled 2021-09-22 Pneumococcal 65+ (1 of [employer] Test 16:06:05 2 - PPSV23) [code = of Medic ine Pneumococcal 65+ (1 of 2 - PPSV23)] Future Scheduled 2021-09-22 COVID-19 Vaccine (1) [employer] Test 16:06:05 [code = COVID-19 of Medicine Vaccine (1)] Future Scheduled 2021-09-22 TETANUS SHOT (ADULT) [employer] Test 16:06:05 [code = TETANUS SHOT of Medi cine (ADULT)] Future Scheduled 2021-09-22 Hepatitis C screening [facility] Test 16:06:05 (procedure) [code = of Medic ine 147869927] Future Scheduled 2021-09-22 ZOSTER VACCINE (1 of 2) [facility] Test 16:06:05 [code = ZOSTER VACCINE of Me dicine (1 of 2)] Future Scheduled 2021-09-22 MEDICARE IPPE (WELCOME [facility] Test 16:06:05 TO MEDICARE) [code = of Medi cine MEDICARE IPPE (WELCOME TO MEDICARE)] Future Scheduled 2021-09-22 Abdominal aortic [facility] Test 16:06:05 aneurysm screening of Medici ne (procedure) [code = 492015732] Future Scheduled 2021-09-22 FALL SCREEN [code = [employer] Test 16:06:05 FALL SCREEN] of Medicine Future Scheduled 2021-09-[address] [facility] Test 16:06:05 [code = BMI FOLLOW UP of Med icine PLAN] Future Scheduled 2021-09-05 Screening for malignant [facility] [employer] Test 08:36:55 neoplasm of colon of Medicin e (procedure) [code = 615215972] Future Scheduled 2021-09-05 COVID-19 Vaccine (1) [employer] Test 08:36:55 [code = COVID-19 of Medicine Vaccine (1)] Future Scheduled 2021-09-05 TETANUS SHOT (ADULT) [employer] Test 08:36:55 [code = TETANUS SHOT of Medi cine (ADULT)] Future Scheduled 2021-09-05 Hepatitis C screening [employer] Test 08:36:55 (procedure) [code = of Medic ine 291762902] Future Scheduled 2021-09-05 ZOSTER VACCINE (1 of 2) [facility] [employer] Test 08:36:55 [code = ZOSTER VACCINE of Me dicine (1 of 2)] Future Scheduled 2021-09-05 MEDICARE IPPE (WELCOME [facility] Test 08:36:55 TO MEDICARE) [code = of [employer] MEDICARE IPPE (WELCOME TO MEDICARE)] Future Scheduled 2021-09-05 Abdominal aortic [facility] Test 08:36:55 aneurysm screening of Medici ne (procedure) [code = 573626340] Future Scheduled 2021-09-05 FALL SCREEN [code = [employer] Test 08:36:55 FALL SCREEN] of Medicine Future Scheduled 2021-09-05 PNEUMOVAX >=65 (PPSV23) [facility] [employer] Test 08:36:55 [code = PNEUMOVAX >=65 of Me dicine (PPSV23)] Future Scheduled 2021-09-05 BMI FOLLOW UP PLAN [facility] Test 08:36:55 [code = BMI FOLLOW UP of Med icine PLAN] Future Scheduled 2021-08-31 Screening for malignant [facility] [employer] Test 11:55:05 neoplasm of colon of Medicin e (procedure) [code = 746728331] Future Scheduled 2021-08-31 COVID-19 Vaccine (1) [employer] Test 11:55:05 [code = COVID-19 of Medicine Vaccine (1)] Future Scheduled 2021-08-31 TETANUS SHOT (ADULT) [employer] Test 11:55:05 [code = TETANUS SHOT of Medi cine (ADULT)] Future Scheduled 2021-08-31 Hepatitis C screening [employer] Test 11:55:05 (procedure) [code = of Medic ine 545805779] Future Scheduled 2021-08-31 ZOSTER VACCINE (1 of 2) [facility] Test 11:55:05 [code = ZOSTER VACCINE of Me dicine (1 of 2)] Future Scheduled 2021-08-31 MEDICARE IPPE (WELCOME [facility] Test 11:55:05 TO MEDICARE) [code = of [employer] MEDICARE IPPE (WELCOME TO MEDICARE)] Future Scheduled 2021-08-31 Abdominal aortic [facility] Test 11:55:05 aneurysm screening of Medici ne (procedure) [code = 020525141] Future Scheduled 2021-08-31 FALL SCREEN [code = [facility] Test 11:55:05 FALL SCREEN] of Medicine Future Scheduled 2021-08-31 PNEUMOVAX >=65 (PPSV23) [facility] [employer] Test 11:55:05 [code = PNEUMOVAX >=65 of Me dicine (PPSV23)] Future Scheduled 2021-08-31 BMI FOLLOW UP PLAN [employer] Test 11:55:05 [code = BMI FOLLOW UP of Med icine PLAN] Diagnostic Test 2021-08-31 MYOCARD PERFUSION - Expected: [employer] Pending 00:00:00 EXERCISE [code = 41792] 08/31/2021, of M edicine Expires: 03/01/2023 Future Scheduled 2021-08-30 US SCROTUM AND [facility] [employer] Test 11:22:02 TESTICLES [code = of Medicin e 62311-9] Future Scheduled 2021-08-18 US SCROTUM AND 1 Occurrences [facility] Test 15:55:28 TESTICLES [code = starting of Medicin e 29520-1] 08/18/2021 until 02/16/2022 Future Scheduled 2021-08-06 Medicare IPPE [facility]E [facility] 00:[facility]00 TO MEDICARE) [code = Medical Center Medicare IPPE (WELCOME TO MEDICARE)] Future Scheduled 2021-08-06 Medicare IPPE ([facility]COME [facility] 00:00:00 TO MEDICARE) [code = Medical Center Medicare IPPE (WELCOME TO MEDICARE)] Future Scheduled 2021-08-06 Medicare IPPE ([facility]ELCOME [facility] Test 00:00:00 TO MEDICARE) [code = Medical Center Medicare IPPE (WELCOME TO MEDICARE)] Future Scheduled 2021-06-30 Screening for malignant [facility] Test 09:30:09 neoplasm of colon of Medicin e (procedure) [code = 529312006] Future Scheduled 2021-06-30 COVID-19 Vaccine (1) [facility] Test 09:30:09 [code = COVID-19 of Medicine Vaccine (1)] Future Scheduled 2021-06-30 TETANUS SHOT (ADULT) [employer] Test 09:30:09 [code = TETANUS SHOT of Medi cine (ADULT)] Future Scheduled 2021-06-30 Hepatitis C screening [employer] Test 09:30:09 (procedure) [code = of Medic ine 150205804] Future Scheduled 2021-06-30 Human immunodeficiency [facility] Test 09:30:09 virus screening of Medicine (procedure) [code = 190826705] Future Scheduled 2021-06-30 ZOSTER VACCINE (1 of 2) [facility] [employer] Test 09:30:09 [code = ZOSTER VACCINE of Me dicine (1 of 2)] Future Scheduled 2021-06-30 FLU VACCINE > 6 MONTHS [facility] Test 09:30:09 [code = FLU VACCINE > 6 of M edicine MONTHS] Future Scheduled 2021-06-[address] UP [address]AN [facility] Test 09:30:09 [code = BMI FOLLOW UP of Med icine PLAN] Future Scheduled 2021-06-25 Screening for malignant [facility] Test 17:28:09 neoplasm of colon of Medicin e (procedure) [code = 774446565] Future Scheduled 2021-06-25 COVID-19 Vaccine (1) [facility] Test 17:28:09 [code = COVID-19 of Medicine Vaccine (1)] Future Scheduled 2021-06-25 TETANUS SHOT (ADULT) [facility] Test 17:28:09 [code = TETANUS SHOT of Medi cine (ADULT)] Future Scheduled 2021-06-25 Hepatitis C screening [employer] Test 17:28:09 (procedure) [code = of Medic ine 549072724] Future Scheduled 2021-06-25 Human immunodeficiency [facility] Test 17:28:09 virus screening of Medicine (procedure) [code = 753612359] Future Scheduled 2021-06-25 ZOSTER VACCINE (1 of 2) [facility] [employer] Test 17:28:09 [code = ZOSTER VACCINE of Me dicine (1 of 2)] Future Scheduled 2021-06-25 FLU VACCINE > 6 MONTHS [facility] Test 17:28:09 [code = FLU VACCINE > 6 of M edicine MONTHS] Future Scheduled 2021-06-[address] [facility] Test 17:28:09 [code = BMI FOLLOW UP of Med icine PLAN] Future Scheduled 2021-06-24 ELECTROCARDIOGRAM [employer] Test 14:56:41 COMPLETE [code = 83067] of M edicine Future Scheduled 2021-06-01 Screening for malignant [employer] Test 17:46:52 neoplasm of colon of Medicin e (procedure) [code = 565393154] Future Scheduled 2021-06-01 COVID-19 Vaccine (1) [employer] Test 17:46:52 [code = COVID-19 of Medicine Vaccine (1)] Future Scheduled 2021-06-01 TETANUS SHOT (ADULT) [employer] Test 17:46:52 [code = TETANUS SHOT of Medi cine (ADULT)] Future Scheduled 2021-06-01 Hepatitis C screening [employer] Test 17:46:52 (procedure) [code = of Medic ine 024198334] Future Scheduled 2021-06-01 Human immunodeficiency [facility] Test 17:46:52 virus screening of Medicine (procedure) [code = 822986874] Future Scheduled 2021-06-01 ZOSTER VACCINE (1 of 2) [facility] [employer] Test 17:46:52 [code = ZOSTER VACCINE of Mi dicine (1 of 2)] Future Scheduled 2021-06-01 FLU VACCINE > 6 MONTHS [employer] Test 17:46:52 [code = FLU VACCINE > 6 of M edicine MONTHS] Future Scheduled 2021-06-01 BMI FOLLOW UP PLAN [facility] Test 17:46:52 [code = BMI FOLLOW UP of Med icine PLAN] Future Scheduled 2021-05-05 Screening for malignant [facility] [employer] Test 18:10:22 neoplasm of colon of Medicin e (procedure) [code = 194779063] Future Scheduled 2021-05-05 COVID-19 Vaccine (1) [employer] Test 18:10:22 [code = COVID-19 of Medicine Vaccine (1)] Future Scheduled 2021-05-05 TETANUS SHOT (ADULT) [employer] Test 18:10:22 [code = TETANUS SHOT of Medi cine (ADULT)] Future Scheduled 2021-05-05 Hepatitis C screening [employer] Test 18:10:22 (procedure) [code = of Medic ine 819964733] Future Scheduled 2021-05-05 Human immunodeficiency [facility] Test 18:10:22 virus screening of Medicine (procedure) [code = 519811257] Future Scheduled 2021-05-05 ZOSTER VACCINE (1 of 2) [facility] [employer] Test 18:10:22 [code = ZOSTER VACCINE of Me dicine (1 of 2)] Future Scheduled 2021-05-05 FLU VACCINE > 6 MONTHS B [facility] Test 18:10:22 [code = FLU VACCINE > 6 of M edicine MONTHS] Future Scheduled 2021-05-05 BMI FOLLOW UP PLAN [facility] Test 18:10:22 [code = BMI FOLLOW UP of Med icine PLAN] Future Scheduled 2021-04-08 CULTURE, Ordered: [facility] Test 13:52:19 URINE/SENSITIVITY ON 04/08/2021 of Medi cine ALL [code = 74238-1] Future Scheduled 2021-04-08 US SCROTUM AND 1 Occurrences [facility] [employer] Test 13:52:19 TESTICLES [code = starting of Medicin e 59750-3] 04/08/2021 until 10/08/2021 Future Scheduled 2021-04-08 Screening for malignant [facility] Test 13:41:00 neoplasm of colon of Medicin e (procedure) [code = 983524670] Future Scheduled 2021-04-08 COVID-19 Vaccine (1) [facility] Test 13:41:00 [code = COVID-19 of Medicine Vaccine (1)] Future Scheduled 2021-04-08 TETANUS SHOT (ADULT) [facility] Test 13:41:00 [code = TETANUS SHOT of Medi cine (ADULT)] Future Scheduled 2021-04-08 Hepatitis C screening [facility] Test 13:41:00 (procedure) [code = of Medic ine 214218347] Future Scheduled 2021-04-08 Human immunodeficiency B [facility] Test 13:41:00 virus screening of Medicine (procedure) [code = 707497131] Future Scheduled 2021-04-08 ZOSTER VACCINE (1 of 2) [facility] Test 13:41:00 [code = ZOSTER VACCINE of Me dicine (1 of 2)] Future Scheduled 2021-04-08 FLU VACCINE > 6 MONTHS B [facility] Test 13:41:00 [code = FLU VACCINE > 6 of M edicine MONTHS] Future Scheduled 2021-04-08 BMI FOLLOW UP PLAN [facility] Test 13:41:00 [code = BMI FOLLOW UP of Med icine PLAN] Diagnostic Test 2021-02-16 ECHO, COMPLETE [code = Expected: [facility] Pending 00:00:00 77272] 02/16/2021, of Medicine Expires: 08/18/2021 Future Scheduled 2006 SHINGLES VACCINES ([address] [facility] Test 00:00:00 2) [code = SHINGLES Medical Center VACCINES (1 of 2)] Future Scheduled 2006 SHINGLES VACCINES ([address] [facility] Test 00:00:00 2) [code = SHINGLES Medical Center VACCINES (1 of 2)] Future Scheduled 2006 SHINGLES VACCINES ([address] [facility] Test 00:00:00 2) [code = SHINGLES Medical Center VACCINES (1 of 2)] Future Scheduled 1975 DTAP/TDAP/TD [facility]ACCINES [facility] Test 00:00:00 (1 - Tdap) [code = Medical C enter DTAP/TDAP/TD VACCINES (1 - Tdap)] Future Scheduled 1975 DTAP/TDAP/TD [facility]ACCINES [facility] Test 00:00:00 (1 - Tdap) [code = Medical C enter DTAP/TDAP/TD VACCINES (1 - Tdap)] Future Scheduled 1975 DTAP/TDAP/TD [facility]ACCINES [facility] Test 00:00:00 (1 - Tdap) [code = Medical C enter DTAP/TDAP/TD VACCINES (1 - Tdap)] Future Scheduled 1974 HEPATITIS C [facility]CRE[facility]ING [facility] 00:00:00 [code = HEPATITIS C Medical Center SCREENING] Future Scheduled 1974 HEPATITIS C [facility] 00:00:00 [code = HEPATITIS C Medical Center SCREENING] Future Scheduled 1974 HEPATITIS C [facility] 00:00:00 [code = HEPATITIS C Medical Center SCREENING] Future Scheduled 1962 PNEUMOCOCCAL 65+ YRS ([address] [facility] Test 00:00:00 - PCV) [code = Medical Cente r PNEUMOCOCCAL 65+ YRS (1 - PCV)] Future Scheduled 1962 PNEUMOCOCCAL 65+ YRS ([address] [facility] Test 00:00:00 - PCV) [code = Medical Cente r PNEUMOCOCCAL 65+ YRS (1 - PCV)] Future Scheduled 1962 PNEUMOCOCCAL 65+ YRS ([address] [facility] Test 00:00:00 - PCV) [code = Medical Cente r PNEUMOCOCCAL 65+ YRS (1 - PCV)] Future Scheduled 1957-02-25 COVID-19 VACCINE (#1) [facility] 00:00:00 [code = COVID-[address] VACCINE (#1)] Future Scheduled 1957-02-25 COVID-19 VACCINE (#1) [facility] Test 00:00:00 [code = COVID-[address] VACCINE (#1)] Future Scheduled 1957-02-25 COVID-19 VACCINE (#1) [facility] Test 00:00:00 [code = COVID-[address] VACCINE (#1)] Future Scheduled 1956 CT Colonography (combo) [facility] Test 00:00:00 [code = CT Colonography Medi trang Center (combo)] Future Scheduled [address] Screening for malignant [facility] Test 00:00:00 neoplasm of colon Medical Ce nter (procedure) [code = 770469087] Future Scheduled [address] Screening for malignant [facility] Test 00:00:00 neoplasm of colon Medical Ce nter (procedure) [code = 554680591] Future Scheduled 1956 Sigmoidoscopy [code = [facility] Test 00:[facility] S[facility]oidoscopy] Medical Cente r Future Scheduled 1956 CT Colonography (combo) [facility] Test 00:00:00 [code = CT Colonography Medi trang Center (combo)] Future Scheduled [address] Screening for malignant [facility] Test 00:00:00 neoplasm of colon Medical Ce nter (procedure) [code = 896145241] Future Scheduled [address] Screening for malignant [facility] Test 00:00:00 neoplasm of colon Medical Ce nter (procedure) [code = 575545114] Future Scheduled 1956 Sigmoidoscopy [facility]code = [facility] Test 00:[facility] Sigmoidoscopy] Medical Cente r Future Scheduled 1956 CT Colonography (combo) [facility] Test 00:00:00 [code = CT Colonography Medi trang Center (combo)] Future Scheduled [address] Screening for malignant [facility] Test 00:00:00 neoplasm of colon Medical Ce nter (procedure) [code = 287201822] Future Scheduled [address] Screening for malignant [facility] Test 00:00:00 neoplasm of colon Medical Ce nter (procedure) [code = 789229906] Future Scheduled 1956 Sigmoidoscopy [facility]code [facility] Test 00:[facility]:00 S[facility] COLON CANCER SCREENING: [facility] [employer] Test COLONOSCOPY [code = of Medic ine COLON CANCER SCREENING: COLONOSCOPY] Future Scheduled TETANUS SHOT (ADULT) [employer] [facility] [code = TETANUS SHOT [...] of Medicine Future Scheduled COLON CANCER SCREENING: [facility] [employer] Test COLONOSCOPY [code = of Medic ine COLON CANCER SCREENING: COLONOSCOPY] Future Scheduled TETANUS SHOT (ADULT) [employer] Test [code = TETANUS SHOT [...] edicine MONTHS] Future Scheduled COLON CANCER SCREENING: [facility] [employer] Test COLONOSCOPY [code = of Medic ine COLON CANCER SCREENING: COLONOSCOPY] Future Scheduled TETANUS SHOT (ADULT) [employer] Test [code = TETANUS SHOT [...] of 2)] Future Scheduled COLON CANCER SCREENING: [facility] [employer] Test COLONOSCOPY [code = of Medic ine COLON CANCER SCREENING: COLONOSCOPY] Future Scheduled TETANUS SHOT (ADULT) [employer] Test [code = TETANUS SHOT [...] of 2)] Future Scheduled COLON CANCER SCREENING: [facility] [employer] Test COLONOSCOPY [code = of Medic ine COLON CANCER SCREENING: COLONOSCOPY] Future Scheduled COVID-19 Vaccine [facility] Test Evaluation [code = of Medici ne COVID-19 Vaccine Evaluation] Future Scheduled TETANUS SHOT (ADULT) [employer] [facility] [code = TETANUS SHOT [...] Future Scheduled ZOSTER VACCINE (1 of 2) [facility] Test [code = ZOSTER VACCINE of Me dicine (1 of 2)] Future Scheduled COLON CANCER SCREENING: [facility] [employer] Test COLONOSCOPY [code = of Medic ine COLON CANCER SCREENING: COLONOSCOPY] Future Scheduled COVID-19 Vaccine [facility] [employer] Test Evaluation [code = of Medici ne COVID-19 Vaccine Evaluation] Future Scheduled TETANUS SHOT (ADULT) [employer] Test [code = TETANUS SHOT [...] colon of Medicin e (procedure) [code = 747297791] Future Scheduled TETANUS SHOT (ADULT) [employer] Test [code = TETANUS SHOT of Medi cine (ADULT)] Future Scheduled COVID-19 Vaccine (1) [employer] Test [code = COVID-19 of Medicine Vaccine (1)] Future Scheduled Hepatitis C screening [employer] Test (procedure) [code = of Medic ine 538231678] Future Scheduled Human immunodeficiency [employer] [facility] virus screening of Medicine (procedure) [code = 393699957] Future Scheduled ZOSTER VACCINE (1 of 2) [employer] Test [code = ZOSTER VACCINE of Me dicine (1 of 2)] Future Scheduled BMI FOLLOW UP PLAN [employer] Test [code = BMI FOLLOW UP of Med icine PLAN] Future Scheduled ELECTROCARDIOGRAM [employer] Test COMPLETE [code = 06842] of M edicine Future Scheduled Screening for malignant [employer] Test neoplasm of colon of Medicin e (procedure) [code = 413504727] Future Scheduled TETANUS SHOT (ADULT) [employer] Test [code = TETANUS SHOT of Medi cine (ADULT)] Future Scheduled COVID-19 Vaccine (1) [employer] Test [code = COVID-19 of Medicine Vaccine (1)] Future Scheduled Hepatitis C screening [employer] Test (procedure) [code = of Medic ine 920797904] Future Scheduled Human immunodeficiency [employer] Test virus screening of Medicine (procedure) [code = 619948043] Future Scheduled ZOSTER VACCINE (1 of 2) [...] icine PLAN] Future Scheduled Screening for malignant [facility] Test neoplasm of colon of Medicin e (procedure) [code = 128390014] Future Scheduled TETANUS SHOT (ADULT) [employer] Test [code = TETANUS SHOT of Medi cine (ADULT)] Future Scheduled COVID-19 Vaccine (1) [employer] Test [code = COVID-19 of Medicine Vaccine (1)] Future Scheduled Hepatitis C screening [employer] Test (procedure) [code = of Medic ine 029912308] Future Scheduled Human immunodeficiency [employer] Test virus screening of Medicine (procedure) [code = 579673970] Future Scheduled ZOSTER VACCINE (1 of 2) [...] icine PLAN] Future Scheduled TETANUS SHOT (ADULT) [employer] Test [code = TETANUS SHOT [...] edicine MONTHS] Future Scheduled COLON CANCER SCREENING: [facility] [employer] Test COLONOSCOPY [code = of Medic ine COLON CANCER SCREENING: COLONOSCOPY] Future Scheduled CTA CORONARY W/CALCIUM 1 Occurrences [employer] Test SCORING W/CONTRAST starting of Medici ne [code = 65764] 02/16/2021 until 02/16/2022 Future Scheduled US 1 Occurrences [employer] Test AORTA,IVC,ILIACS,GRAFT starting of Mi dicine COMPLETE DUPLEX [code = 01/25/2021 until 25930-3] 01/25/2022 Future Scheduled US CAROTID [code = 1 Occurrences [employer] 19413] starting of Medicine 01/25/2021 until 01/25/2022 Future Scheduled US ARTERIAL LEG LEFT 1 Occurrences [employer] Test [code = 89221] starting of Medicine 12/07/2020 until 07/07/2021 Future Scheduled CTA ABD AORTA AND 1 Occurrences [employer] Test ILIOFEMORAL RUNOFF starting of Medici ne [code = 25489] 12/07/2020 until 07/07/2021 Future Scheduled TREADMILL, NO IMAGING 1 Occurrences [employer] Test [code = 28444] starting of Medicine 04/23/2020 until 04/23/2021 Future Scheduled NOVEL 2019 1 Occurrences [facility] [employer] Test CORONAVIRUS(COVID-19),N starting of M edicine AA [code = U0004] 04/23/2020 until 10/23/2020 Goal Plan of Care Note [code = 86398-1] Goal Plan of Care Note [code = 67288-9] Goal Plan of Care Note [code = 70213-5] Goal Plan of Care Note [code = 85965-3] Goal Plan of Care Note [code = 20045-7] Goal Plan of Care Note [code = 93971-4] Goal Plan of Care Note [code = 92477-1] Goal Plan of Care Note [code = 66728-4] Goal Plan of Care Note [code = 94203-1] Goal Plan of Care Note [code = 38125-3] Encounters Start End Encounter Admission Attending Care Care Encounter Source Date/Time Date/Time Type Type Clinicians Facility Department ID 2022-07-26 Outpatient HALEY MATTHEW EULALIO [id number] HBL 14:01:20 MOOKIE 2022-03-24 Outpatient Pickett, [facility] [id number] Common 13:04:00 [facility] 2022-03-01 Outpatient Pickett, [facility]LMLC [facility] [id number] Common 10:33:01 [facility] 2022-01-17 Outpatient Pickett, [facility]LMLC [facility] [id number] Common 13:26:00 [facility] 2021-12-24 Outpatient Pickett, [facility]LMLC [facility] [id number] Common 12:30:01 [facility] 2021-12-01 Outpatient Pickett, STLMLC ST[facility] [id number] Common 14:39:55 [facility] 2021-12-01 Outpatient Pickett, STLMLC STLC [id number] Common 14:24:19 [facility] 2021-12-01 Outpatient Okosun, [facility]LMLC [facility] [id number] Common 14:03:48 Rj [id number] [facility] 2021-12-01 Outpatient [place], STLMLC STLC [id number] Common 13:53:57 [place]j [id number] [facility] 2021-12-01 Outpatient [place], [facility]LMLC [facility] [id number] Common 13:42:50 Rj [id number] [facility] 2021-12-01 Outpatient [place], [facility]LMLC [facility] [id number] Common 11:04:27 Rj [id number] [facility] 2021-08-15 Inpatient YUMIKO, [facility] [id number] [facility] 03:03:46 COURTNEY 2021-08-14 Outpatient AR, [facility] Surgery [id number] [facility] 23:18:50 ELAINEBOSANDRITA 2021-08-14 Outpatient JONO, SLE Surgery [id number] [facility] 04:42:31 MARIUSZ 2023-01-17 2023-01-17 Outpatient MHIE MHIE [id number] [facility] 14:00:00 14:00:00 07 jem Campbell 2023-01-17 2023-01-17 Outpatient MHIE MHIE [id number] [facility] 14:00:00 14:00:00 07 jem Campbell 2022-08-16 2022-08-16 Outpatient MHIE MHIE [id number] [facility]oria 08:30:00 08:30:00 08 jem Campbell 2022-08-16 2022-08-16 Outpatient MHIE MHIE [id number] [facility]oria 08:30:00 08:30:00 08 jem Campbell 2022-07-27 2022-07-27 Office JOSIANE Alejandre [id number] [facility] 09:30:00 14:39:54 Visit Arley AMBULATOR 350.1.13.21 College Y 0.2.7.2.686 of [id number] Medi aleksandra 300 e 2022-07-19 2022-07-20 Outpatient nullFlavo MNA [id number] Memoria 19:45:00 04:59:59 r Neurology 05 l Sheila Campbell 2022-07-19 2022-07-20 Outpatient nullFlavo MNA [id number] Memoria 19:45:00 04:59:59 r Neurology 05 l Sheila Campbell 2022-07-19 2022-07-19 Outpatient ZENAIDA MartinezSCHER [id number] 14:45:00 23:59:59 Aleksander Kellie Samson 2022-07-19 2022-07-19 Outpatient MHIE MHIE [id number] [facility]oria 14:45:00 14:45:00 05 jem Campbell 2022-07-14 2022-07-16 Phone nullFlavo [facility] [id number] Memoria 18:31:52 04:59:59 Message r General 00 l [facility] 2022-07-14 2022-07-16 Phone nullFlavo [facility] [id number] Memoria 18:31:52 04:59:59 Message r General 00 l [facility] 2022-07-14 2022-07-15 Outpatient [facility] [id number] 13:31:52 23:59:59 00 2022-07-12 2022-07-12 Outpatient [id number] 00:00:00 00:00:00 Visit [id number] 2022-07-08 2022-07-09 Outpatient nullFlavo [facility] Multi 55 [id number] Memoria 16:45:00 04:59:59 r Specialty 06 l [facility] 2022-07-08 2022-07-09 Outpatient nullFlavo [facility] Multi 55 [id number] Memoria 16:45:00 04:59:59 r Specialty 06 l [facility] 2022-07-08 2022-07-08 Outpatient Yeny, [facility] [id number] 11:45:00 23:59:59 Mookie 06 2022-07-08 2022-07-08 [facility] [id number] [facility]oria 11:45:00 11:45:00 06 [facility] 2022-06-30 2022-06-30 Office JOSIANE Alejandre 1.2.840.[id number] [place] [address] 09:30:00 11:25:43 Visit Arley AMBULATOR 350.1.13.21 College Y 0.2.7.2.686 of [id number] [facility] 300 e 2022-06-24 2022-06-25 Outpatient nullFlavo [facility] [id number] Memoria 14:33:00 04:59:00 r Touchet 00 l [facility] 2022-06-24 2022-06-25 Outpatient nullFlavo [facility] [id number] Memoria 14:33:00 04:59:00 r Adrian 00 l [facility] 2022-06-24 2022-06-24 Outpatient Godaina, MHSE SE [id number] 09:33:00 23:59:00 Carlos 00 2022-06-15 2022-06-15 ambulatory STLMLC STLMLC [id number] Common 00:00:00 00:00:00 [facility] 2022-06-10 2022-06-10 Office JOSIANE Tinajero 1.2.840.114 [id number] [facility] 09:30:00 09:50:15 Visit Ramyar AMBULATOR 350.1.13.21 College Y 0.2.7.2.686 of [id number] Medi aleksandra 825 e 2022-06-10 2022-06-10 Outpatient [facility] [id number] [facility] 07:46:23 09:47:32 Kathy e of Medicin e 2022-06-02 2022-06-03 Outpatient nullFlavo MNA [id number] Memoria 19:30:00 04:59:59 r Neurology 04 l Sheila Campbell 2022-06-02 2022-06-03 Outpatient nullFlavo MNA [id number] Memoria 19:30:00 04:59:59 r Neurology 04 l Sheila Campbell 2022-06-02 2022-06-02 Outpatient ASHLEY MartinezMISCHER MISCHER [id number] 14:30:00 23:59:59 Aleksander Ethel Samson 2022-06-02 2022-06-02 Outpatient [place] [facility] [id number] 14:30:00 14:30:00 04 jem Campbell 2022-06-02 2022-06-02 ambulatory STLMLC STLMLC [id number] Common 00:00:00 00:00:00 [facility] 2022-05-17 2022-05-17 Office Pete Nicole [facility] 1.2.840.114 [id number] [facility] 10:30:00 10:50:00 Visit AMBULATOR 350.1.13.21 College Y 0.2.7.2.686 of [id number] Medi aleksandra 800 e 2022-05-17 2022-05-17 Office JOSIANE Dennison 1.2.840.114 [id number] [facility] 09:40:00 10:00:00 Visit Mohan AMBULATOR 350.1.13.21 College Y 0.2.7.2.686 of [id number] Medi aleksandra 375 e 2022-05-16 2022-05-16 ambulatory STLMLC STLMLC [id number] Common 00:00:00 00:00:00 [facility] 2022-05-06 2022-05-06 Office PETE NICOLE [facility] 1.2.840.114 [id number] [facility] 10:01:27 14:39:20 Visit AMBULATOR 350.1.13.21 College Y 0.2.7.2.686 of [id number] Medi aleksandra 800 e 2022-05-04 2022-05-04 Office PILI [facility] 1.2.840.114 [id number] [facility] 14:49:07 15:38:13 Visit ARLEY WOMACK AMBULATOR 350.1.13.21 College Y 0.2.7.2.686 of [id number] Medi aleksandra 300 e 2022-04-28 2022-04-28 Office [place] [facility] 1.2.735.056 [id number] [facility] 08:30:00 08:32:41 Visit [facility] 350.1.13.10 it y of [place] 4.2.7.2.686 Hi as OCTAVIO?BLEA [id number] [address] OFFICE [facility] 2022-04-21 2022-04-22 Outpatient nullFlavo MNA [id number] Memoria 21:00:00 04:59:59 r Neurology 02 l Sheila Campbell 2022-04-21 2022-04-22 Outpatient nullFlavo MNA [id number] Memoria 21:00:00 04:59:59 r Neurology 02 l Sheila Campbell 2022-04-21 2022-04-21 Outpatient ZENAIDA Martinez 860 [id number] 16:00:00 23:59:59 Aleksander Samson 2022-04-21 2022-04-21 Outpatient RHODA DUONG [id number] Memoria 16:00:00 16:00:00 02 l Adrian 2022-04-19 2022-04-19 [facility], 1.2.840.1 [id number] [id number] Methodi 14:43:42 23:59:00 Encounter Karen Vargas 84492.1.[address] 3.430.2.7 Hospit a .3.311082 l .8 2022-04-19 2022-04-19 [facility], 1.2.840.1 [id number] Methodi 14:43:42 23:59:00 Encounter Karen Vargas 92411.1.[address] 3.430.2.7 Hospit a .3.839530 l .8 2022-04-19 2022-04-19 [facility], 1.2.840.1 [id number] Methodi 14:43:11 23:59:00 Encounter Karen Vargas 73469.1.[address] 3.430.2.7 Hospit a .3.165514 l .8 2022-04-19 2022-04-19 [facility], 1.2.840.1 [id number] 2099 [id number] Methodi 14:43:11 23:59:00 Encounter Karen Vargas 58774.1.[address] 3.430.2.7 Hospit a .3.467686 l .8 2022-04-19 2022-04-19 Office Mirian, 1.2.840.1 [id number] 66297 Methodi 14:00:00 15:30:09 Visit Karen Vargas 78960.1.1 374 s t 3.430.2.7 Hospit a .3.334652 l .8 2022-04-19 2022-04-19 Office Mirian, 1.2.840.1 [id number] 51019 97975 Methodi 14:00:00 15:30:09 Visit Karen Vargas 79058.1.1 374 s t 3.430.2.7 Hospit a .3.734532 l .8 2022-04-19 2022-04-19 [facility], 1.2.840.1 [id number] [id number] Methodi 14:37:12 14:42:00 Encounter Karen Vargas 39543.1.[address] 3.430.2.7 Hospit a .3.517028 l .8 2022-04-19 2022-04-19 Hospital Mirian, 1.2.840.1 [id number] 2099204 Methodi 14:37:12 14:42:00 Encounter Karen Vargas 69948.1.[address] 3.430.2.7 Hospit a .3.882694 l .8 2022-04-19 2022-04-19 Orders Mirian, 1.2.840.1 [id number] Methodi 00:00:00 00:00:00 Only Karen Vargas 22378.1.1 324 s t 3.430.2.7 Hospit a .3.993618 l .8 2022-04-19 2022-04-19 Travel 1.2.840.1 1.2.683.978 4319 127194 Methodi 00:00:00 00:00:[address] 3.430.2.7 0.2.7.3.698 Ho spita .3.036055 084.8 l .8 2022-04-19 2022-04-19 [facility] MIRIAN, [facility] [id number] 2624 [place] 00:00:00 00:00:00 KAREN Zamora Method i st 2022-04-19 2022-04-19 Orders Mirian, 1.2.840.1 [id number] Methodi 00:00:00 00:00:00 Only Karen Vargas 91939.1.1 324 s t 3.430.2.7 Hospit a .3.275572 l .8 2022-04-19 2022-04-19 Travel 1.2.840.1 1.2.986.088 6627 783262 Methodi 00:00:00 00:00:[address] 3.430.2.7 0.2.7.3.698 Ho spita .3.922487 084.8 l .8 2022-04-15 2022-04-15 ambulatory STLMLC STLMLC [id number] Common 00:00:00 00:00:00 [facility] 2022-04-12 2022-04-12 Office PETE NICOLE [facility] 1.2.840.114 [id number] [facility] 13:59:16 15:48:48 Visit AMBULATOR 350.1.13.21 College Y 0.2.7.2.686 of 227.0161610 [facility] 800 e 2022-03-29 2022-03-29 Office Pete Nicole [facility] 1.2.840.114 [id number] [facility] 15:00:00 15:40:00 Visit AMBULATOR 350.1.13.21 College Y 0.2.7.2.686 of 481.4612415 [facility] 800 e 2022-03-25 2022-03-25 ambulatory STLMLC STLMLC [id number] Common 00:00:00 00:00:00 [facility] 2022-03-23 2022-03-24 Outpatient nullFlavo [facility] 55 [id number] Memoria 20:00:00 04:59:59 r Specialty 03 l [facility] 2022-03-23 2022-03-24 Outpatient nullFlavo [facility] 55 [id number] Memoria 20:00:00 04:59:59 r Specialty 03 l [facility] 2022-03-24 2022-03-24 ambulatory STLMLC STLMLC [id number] Common 00:00:00 00:00:00 [facility] 2022-03-23 2022-03-23 Outpatient Magnus, [facility] [id number] 15:00:00 23:59:59 Mohummed 03 Gayle 2022-03-23 2022-03-23 Outpatient MHIE MHIE [id number] Memoria 15:00:00 15:00:00 03 jem Campbell 2022-03-18 2022-03-18 Office JOSIANE TINAJERO 1.2.840.114 [id number] [facility] 09:50:45 11:50:51 Visit RAMYAR AMBULATOR 350.1.13.21 College Y 0.2.7.2.686 of 325.5698313 [facility] aleksandra 825 e 2022-03-16 2022-03-16 Office JOSIANE WHITE 1.2.840.114 [id number] [facility] 14:27:41 14:27:41 Visit CHUCKIE AMBULATOR 350.1.13.21 College Y 0.2.7.2.686 of 795.2507666 [facility] aleksandra 300 e 2022-03-14 2022-03-15 Outpatient nullFlavo MNA [id number] Memoria 18:30:00 04:59:59 r Neurology 01 l Sheila Campbell 2022-03-14 2022-03-15 Outpatient nullFlavo MNA [id number] Memoria 18:30:00 04:59:59 r Neurology 01 l Sheila Campbell 2022-03-14 2022-03-14 Outpatient ZENAIDA MartinezMISCHYAIMA 480 [id number] 13:30:00 23:59:59 Aleksander Claudia Chapin 2022-03-14 2022-03-14 Outpatient ASHLEYIE ASHLEYIE [id number] Memoria 13:30:00 13:30:00 01 jem Campbell 2022-03-02 2022-03-02 ambulatory STLMLC STLMLC [id number] Common 00:00:00 00:00:00 [facility] 2022-03-02 2022-03-02 ambulatory STLMLC STLMLC [id number] Common 00:00:00 00:00:00 [facility] 2022-02-23 2022-02-23 ambulatory STLMLC STLMLC [id number] Common 00:00:00 00:00:00 [facility] 2022-02-14 2022-02-14 Office JOSIANE Alston 1.2.840.114 [id number] [facility] 11:00:00 14:24:56 Visit Jose Raul Newman AMBULATOR 350.1.13.21 College Y 0.2.7.2.686 of 945.7488213 [facility] aleksandra 825 e 2022-02-10 2022-02-10 Office JOSIANE Dennison 1.2.840.[id number] [place] [address] 15:40:00 16:13:18 Visit Mohan AMBULATOR 350.1.13.21 College Y 0.2.7.2.686 of 610.8018818 Medi aleksandra 375 e 2022-02-01 2022-02-01 [id number] [facility] 12:42:59 16:31:50 [facility] 2022-01-20 2022-01-20 [facility] [id number] [facility] 10:42:13 13:17:54 [facility] 2022-01-20 2022-01-20 Outpatient [facility] [id number] [facility] 10:43:15 10:43:15 [facility] 2022-01-18 2022-01-18 Outpatient [facility] [id number] [facility] 10:51:05 11:54:20 [facility] 2022-01-17 2022-01-17 ambulatory STLMLC STLMLC [id number] Common 00:00:00 00:00:00 [facility] 2022-01-14 2022-01-14 ambulatory STLMLC STLMLC [id number] Common 00:00:00 00:00:00 [facility] 2022-01-13 2022-01-13 ambulatory STLMLC STLMLC [id number] Common 00:00:00 00:00:00 [facility] 2022-01-02 2022-01-02 Refill Marcy, [facility] [id number] 00:00:00 00:00:00 [facility] 2022-01-02 2022-01-02 Refill Marcy, [facility] [id number] 00:00:00 00:00:00 [facility] 2021-12-20 2021-12-20 Office JOSIANE Perera 1.2.431.688 5023 [id number] [facility] 13:00:00 14:00:00 Visit Erlinda Newman AMBULATOR 350.1.13.21 College Y 0.2.7.2.686 of 158.8454879 Medi aleksandra 800 e 2021-12-172021-12-18 Outpt Diag nullFlavo [facility] [id number] Memoria 14:56:00 05:59:00 Services r Outpatient 00 l Imaging [place] 2021-12-17 2021-12-18 Outpt Diag nullFlavo [facility] [id number] Memoria 14:56:00 05:59:00 Services r Outpatient 00 l Imaging Tou[place] 2021-12-17 2021-12-17 Outpatient Gogia, [facility] [id number] 08:56:00 23:59:00 [facility] 00 2021-12-10 2021-12-10 Outpatient [facility] [id number] [facility] 08:00:12 10:11:56 Kathy hu of Medicin e 2021-12-10 2021-12-10 Office JOSIANE Tinajero 1.2.840.114 [id number] [facility] 09:30:00 10:05:44 Visit Ramyar AMBULATOR 350.1.13.21 College Y 0.2.7.2.686 of [id number] [facility] 825 e 2021-12-08 2021-12-08 ambulatory STLMLC STLMLC [id number] Common 00:00:00 00:00:00 [facility] 2021-12-02 2021-12-02 ambulatory STLMLC STLMLC [id number] Common 00:00:00 00:00:00 [facility] 2021-12-02 2021-12-02 ambulatory STLMLC STLMLC [id number] Common 00:00:00 00:00:00 [facility] 2021-11-25 2021-11-25 Outpatient MHIE MHIE [id number] Memoria 14:30:00 14:30:00 00 l [place] 2021-11-25 2021-11-25 Outpatient MHIE MHIE [id number] [facility]oria 14:30:00 14:30:00 00 l [place] 2021-11-19 2021-11-19 ambulatory STLMLC STLMLC [id number] Common 00:00:00 00:00:00 [facility] 2021-11-17 2021-11-17 Office JOSIANE DENNISON 1.2.840.114 [id number] [facility] 13:03:04 14:55:25 Visit MOHAN AMBULATOR 350.1.13.21 College Y 0.2.7.2.686 of 546.4927661 Medi aleksandra 375 e 2021-11-12 2021-11-12 Office JOSIANE Alejandre 1.2.840.114 [id number] [facility] 16:30:00 17:17:27 Visit Arley AMBULATOR 350.1.13.21 College Y 0.2.7.2.686 of 436.2546637 Medi aleksandra 300 e 2021-11-11 2021-11-11 ambulatory STLMLC STLMLC [id number] Common 00:00:00 00:00:00 [facility] 2021-11-09 2021-11-09 ambulatory STLMLC STLMLC [id number] Common 00:00:00 00:00:00 [facility] 2021-11-02 2021-11-02 ambulatory STLMLC STLMLC [id number] Common 00:00:00 00:00:00 [facility] 2021-10-20 2021-10-20 ambulatory STLMLC STLMLC [id number] Common 00:00:00 00:00:00 [facility] 2021-10-19 2021-10-19 Outpatient [facility] [id number] [facility] 11:01:06 12:52:47 Mario e 2021-10-14 2021-10-14 ambulatory STLMLC STLMLC [id number] Common 00:00:00 00:00:00 [facility] 2021-10-13 2021-10-13 ambulatory STLMLC STLMLC [id number] Common 00:00:00 00:00:00 [facility] 2021-10-12 2021-10-12 ambulatory STLMLC STLMLC [id number] Common 00:00:00 00:00:00 [facility] 2021-10-12 2021-10-12 ambulatory STLMLC STLMLC [id number] Common 00:00:00 00:00:00 [facility] 2021-10-12 2021-10-12 ambulatory STLMLC STLMLC [id number] Common 00:00:00 00:00:00 [facility] 2021-10-04 2021-10-04 ambulatory STLMLC STLMLC [id number] Common 00:00:00 00:00:00 [facility] 2021-09-27 2021-09-27 Office JOSIANE Jarrell 1.2.840.114 [id number] [facility] 14:15:00 16:03:36 Visit Mariusz AMBULATOR 350.1.13.21 College Hollis Y 0.2.7.2.686 of [id number] [facility] 825 e 2021-09-27 2021-09-27 ambulatory STLMLC STLMLC [id number] Common 00:00:00 00:00:00 [facility] 2021-09-22 2021-09-22 Office JOSIANE White 1.2.840.114 [id number] [facility] 15:30:00 15:45:00 Visit Chuckie AMBULATOR 350.1.13.21 College Y 0.2.7.2.686 of [id number] [facility] 300 e 2021-09-21 2021-09-21 ambulatory STLMLC STLMLC [id number] Common 00:00:00 00:00:00 [facility] 2021-09-16 2021-09-16 ambulatory STLMLC STLMLC [id number] Common 00:00:00 00:00:00 [facility] 2021-09-16 2021-09-16 ambulatory STLMLC STLMLC [id number] Common 00:00:00 00:00:00 [facility] 2021-09-10 2021-09-10 [id number] 12:59:41 23:59:00 Encounter [facility] 2021-09-10 2021-09-10 Outpatient [facility] [id number] [facility] 12:59:41 23:59:00 [facility] 2021-09-10 2021-09-10 [facility], [facility] [id number] 12:59:41 23:59:00 Encounter [facility] 2021-09-03 2021-09-03 Outside [facility] [id number] 00:00:00 00:00:00 Orders [facility] 2021-09-03 2021-09-03 Outside [facility], [facility] [id number] 00:00:00 00:00:00 Orders [facility] 2021-08-31 2021-08-31 Office JUMA [facility] 1.2.840.[id number] [place] [address] 10:18:03 12:06:43 Visit MOHAN AMBULATOR 350.1.13.21 College Y 0.2.7.2.686 of [id number] [facility] aleksandra 375 e 2021-08-30 2021-08-30 Outpatient [facility] [id number] [facility] 11:22:02 11:22:02 [facility] 2021 2021 Outpatient [facility] [id number] Common 00:00:00 00:00:00 [facility] 2021-08-18 2021-08-18 Office CARINE WHITE 1.2.840.114 [id number] [facility] 13:58:10 16:01:54 Visit CHUCKIE AMBULATOR 350.1.13.21 College Y 0.2.7.2.686 of [id number] [facility] aleksandra 300 e 2021-08-18 2021-08-18 Outpatient [facility] [id number] Common 00:00:00 00:00:00 [facility] 2021-08-15 2021-08-15 Anil Vidal [facility] [id number] 00:00[facility]00 00:00:00 [facility] 2021-08-15 2021-08-15 Anil Vidal [facility] [id number] 00:00:00 00:00:00 [facility] 2021-08-12 2021-08-12 Outpatient STLMLC STLMLC [id number] Common 00:00:00 00:00:00 [facility] 2021-07-27 2021-07-27 Outpatient BCM [facility] [id number] [facility] 09:13:01 09:53:29 [facility] 2021-07-18 2021-07-18 Refirish Vidal, [facility] [id number] 00:00:00 00:00:00 [facility] 2021-07-07 2021-07-07 Outpatient NORA PARRISH [facility] [id number] [facility] 00:00:00 00:00:00 [facility] 2021-07-05 2021-07-05 Outpatient STLMLC STLMLC [id number] Common 00:00:00 00:00:00 [facility] 2021-07-05 2021-07-05 Outpatient STLMLC STLMLC [id number] Common 00:00:00 00:00:00 [facility] 2021-07-05 2021-07-05 Outpatient STLMLC STLC [id number] Common 00:00:00 00:00:00 [facility] 2021-06-30 2021-06-30 Office White, BCM 1.2.840.114 [id number] [facility] 08:49:23 09:04:23 Visit Chuckie AMBULATOR 350.1.13.21 College Y 0.2.7.2.686 of [id number] Medi aleksandra 300 e 2021-06-24 2021-06-24 Office Juma, BCM 1.2.840.114 [id number] [facility] 14:34:41 16:00:10 Visit Mohan AMBULATOR 350.1.13.21 College Y 0.2.7.2.686 of [id number] Medi aleksandra 375 e 2021-06-15 2021-06-15 Outpatient BCM [facility] [id number] [facility] 12:51:35 12:51:35 [facility] 2021-06-14 2021-06-14 Outpatient JONO, [facility] [id number] [facility] 07:55:20 13:28:21 MARIUSZ [facility] [employer] [employer] 2021-06-14 2021-06-14 Outpatient BCM [facility] [id number] [facility] 07:54:56 10:48:49 [facility] 2021-06-02 2021-06-02 Outpatient NORA PARRISH, [facility] [id number] [facility] 00:00:00 00:00:00 [place] 2021-06-01 2021-06-01 Office Juma [facility] 1.2.840.[id number] [place] [address] 14:20:18 15:45:02 Visit Mohan AMBULATOR 350.1.13.21 College Y 0.2.7.2.686 of 476.5395785 Medi aleksandra 375 e 2021-05-15 2021-05-15 Outpatient [facility] [id number] [facility] 00:00:00 23:59:00 [facility] 2021-05-13 2021-05-13 Outpatient [facility] [id number] [facility] 07:37:00 23:59:00 [facility] 2021-05-12 2021-05-12 Outpatient [facility] [id number] SLE 00:00:00 00:00:00 2021-05-11 2021-05-11 Outpatient EL [facility] [id number] [facility] 00:00:00 00:00:00 2021-05-04 2021-05-04 Outpatient [facility] [id number] [facility] 00:00:00 23:59:00 [facility] 2021-04-29 2021-04-29 Outpatient [facility] [id number] [facility] 00:00:00 23:59:00 [facility] 2021-04-29 2021-04-29 Outpatient [facility] [id number] [facility] 00:00:00 00:00:00 2021-04-27 2021-04-27 Outpatient STLMLC STLC [id number] Common 00:00:00 00:00:00 [facility] 2021-04-08 2021-04-20 Outpatient JOSIANE ODOM [facility] [id number] [facility] 11:27:25 19:51:25 BASIL [facility] [employer] [facility] [employer] 2021-04-20 2021-04-20 Outpatient [facility] [id number] Common 00:00:00 00:00:00 [facility] 2021-04-14 2021-04-16 Office Iris JOSIANE 1.2.840.114 [id number] 14:55:42 16:49:34 Visit Chuckie AMBULATOR 350.1.13.21 Y 0.2.7.2.686 [id number] 300 2021-04-14 2021-04-16 Office Iris JOSIANE 1.2.840.[id number] [place] [address] 14:55:42 16:49:34 Visit Chuckie AMBULATOR 350.1.13.21 College Y 0.2.7.2.686 of [id number] Medi aleksandra 300 e 2021-04-08 2021-04-08 Office Sara CARINESamir 1.2.840.114 [id number] 13:31:23 14:01:23 Visit Basil AMBULATOR 350.1.13.21 Y 0.2.7.2.686 [id number] 300 2021-04-08 2021-04-08 Office Sara CARINESamir 1.2.840.114 [id number] 58 [facility] 13:31:23 14:01:23 Visit Basil AMBULATOR 350.1.13.21 College Y 0.2.7.2.686 of [id number] Medi aleksandra 300 e 2021-04-08 2021-04-08 Outpatient [facility] [id number] [facility] 00:00:00 00:00:00 Kathy e of Medicin e 2021-03-22 2021-03-22 Outpatient KAMI PALACIOS [facility] [id number] SLE 00:00:00 00:00:00 MOHAN 2021-03-16 2021-03-16 Outpatient KAMI PALACIOS [facility] [id number] SLE 00:00:00 00:00:00 MOHAN 2021-03-05 2021-03-05 Outpatient BCM BCSamir [id number] [facility] 08:06:07 13:36:08 Daniig e of Medicin e 2021-03-03 2021-03-03 Office JOSIANE White 1.2.840.114 [id number] 12:05:37 12:20:37 Visit Chuckie AMBULATOR 350.1.13.21 Y 0.2.7.2.686 [id number] 300 2021-03-03 2021-03-03 Office JOSIANE White 1.2.840.114 [id number] [facility] 12:05:37 12:20:37 Visit Chuckie AMBULATOR 350.1.13.21 College Y 0.2.7.2.686 of [id number] [facility] aleksandra 300 e 2021-02-18 2021-02-18 Outpatient STLC [facility] [id number] Common 00:00:00 00:00:00 [facility] 2021-02-16 2021-02-16 Office JOSIANE Dennison 1.2.840.114 [id number] 09:21:06 10:13:12 Visit Mohan AMBULATOR 350.1.13.21 Y 0.2.7.2.686 [id number] 375 2021-02-16 2021-02-16 Office JOSIANE Dennison 1.2.840.114 [id number] [facility] 09:21:06 10:13:12 Visit Mohan AMBULATOR 350.1.13.21 College Y 0.2.7.2.686 of [id number] Medi aleksandra 375 e 2021-01-25 2021-01-25 Office JOSIANE Jarrell 1.2.840.114 [id number] 11:06:09 12:30:03 Visit Mariusz AMBULATOR 350.1.13.21 Hollis Y 0.2.7.2.686 [id number] 825 2021-01-25 2021-01-25 Office JOSIANE Jarrell 1.2.840.114 [id number] [facility] 11:06:09 12:30:03 Visit Mariusz AMBULATOR 350.1.13.21 College Hollis Y 0.2.7.2.686 of [id number] [facility] aleksandra 825 e 2021-01-22 2021-01-22 Outpatient BC BC [id number] [facility] 09:09:43 17:09:11 Daniilandon hu of Medicin e 2021-01-04 2021-01-04 Outpatient [facility] [id number] 250 [facility] 00:00:00 00:00:00 2020-12-07 2020-12-07 Office JOSIANE Jarrell 1.2.840.114 [id number] [facility] 09:22:17 15:25:48 Visit Mariusz AMBULATOR 350.1.13.21 Hollis Y 0.2.7.2.686 [id number] [facility] 2020-12-07 2020-12-07 Office JOSIANE Jarrell 1.2.840.[id number] [place] [address] 09:22:17 15:25:48 Visit Mariusz AMBULATOR 350.1.13.21 College Hollis Y 0.2.7.2.686 of [id number] [facility] 825 e 2020-12-02 2020-12-02 Office JOSIANE White 1.2.840.114 [id number] 14:28:34 14:43:34 Visit Chuckie AMBULATOR 350.1.13.21 Y 0.2.7.2.686 [id number] 300 2020-12-02 2020-12-02 Office JOSIANE White 1.2.840.114 [id number] [facility] 14:28:34 14:43:34 Visit Chuckie AMBULATOR 350.1.13.21 College Y 0.2.7.2.686 of [id number] [facility] 300 e 2020-11-25 2020-11-25 Outpatient STLMLC STLC [id number] Common 00:00:00 00:00:00 [facility] 2020-11-16 2020-11-16 Outpatient STLMLC STLC [id number] Common 00:00:00 00:00:00 [facility] 2020-10-12 2020-10-12 Office JOSIANE Alvarado 1.2.840.114 [id number] 13:52:12 14:22:12 Visit Khai AMBULATOR 350.1.13.21 Y 0.2.7.2.686 [id number] 800 2020-10-12 2020-10-12 Office JOSIANE Alvarado 1.2.840.114 [id number] [facility] 13:52:12 14:22:12 Visit Khai AMBULATOR 350.1.13.21 College Y 0.2.7.2.686 of [id number] Medi aleksandra 800 e 2020-09-08 2020-09-08 Outpatient SKIP, MHSE MHSE 7500 MH 07:57:00 23:59:00 [facility] 2020-08-06 2020-08-06 Office JOSIANE Alvarado 1.2.840.114 [id number] 14:02:58 14:46:32 Visit Khai AMBULATOR 350.1.13.21 Y 0.2.7.2.686 [id number] 800 2020-08-06 2020-08-06 Office JOSIANE Alvarado 1.2.840.[id number] [place] [address] 14:02:58 14:46:32 Visit Khai AMBULATOR 350.1.13.21 College Y 0.2.7.2.686 of [id number] [facility] aleksandra 800 e 2020-07-28 2020-07-28 Outpatient [facility] [id number] Common 00:00:00 00:00:00 [facility] 2020-07-16 2020-07-16 Outpatient Tila Tadeo [id number] Common 16:13:00 16:13:00 t [facility] 2020-07-14 2020-07-14 Outpatient Tila Tadeo [id number] Common 09:30:00 09:30:00 t [facility] Bone [facility] Spiri t and Joint [facility] - [facility] 2020-06-01 2020-06-01 Outpatient Tila Tadeo [id number] Common 09:00:00 09:00:00 t [facility] Bone and Spiri t and Joint [facility] - [facility] 2020-04-23 2020-04-23 Office JOSIANE Dennison [id number] 11:27:32 11:47:32 Visit Mohan AMBULATOR [id number] Y 0.2.7.2.686 [id number] [facility] 2020-04-23 2020-04-23 Office JOSIANE Dennison [id number] [place] [address] 11:27:32 11:47:32 Visit Mohan AMBULATOR [id number] College Y 0.2.7.2.686 of [id number] [facility] 375 e 2020-01-22 2020-01-22 Office JOSIANE Steiner [id number] 09:35:07 10:05:07 Visit Kalen AMBULATOR [id number] Young Y 0.2.7.2.686 [id number] 2020-01-22 2020-01-22 Office JOSIANE Steiner [id number] [place] [address] 09:35:07 10:05:07 Visit Kalen AMBULATOR [id number] College Young Y 0.2.7.2.686 of [id number] [facility] 800 e 2020-01-22 2020-01-22 Outpatient Tila Tadeo 30 [id number] Common 08:07:00 08:07:00 t Bone Bone and Spiri t and Joint [facility] - [facility] 2020-01-08 2020-01-08 Outpatient Tila Tadeo [id number] Common 12:23:00 12:23:00 t Bone Bone and Spiri t and Joint Joint - [facility] 2019-12-23 2019-12-23 Outpatient Tila Tadeo 29 [id number] Common 08:00:00 08:00:00 t Bone Bone and Spiri t and Joint Joint - [facility] 2019-10-10 2019-10-10 Outpatient Tila Tadeo [id number] Common 09:37:00 09:37:00 t Bone Bone and Spiri t and Joint Joint - [facility] 2019-10-09 2019-10-09 Outpatient Tila Tadeo [id number] Common 15:29:00 15:29:00 t Bone Bone and Spiri t and Joint Joint - [facility] 2019-09-09 2019-09-09 Outpatient Tila Tadeo [id number] Common 16:12:00 16:12:00 t Bone Bone and Spiri t and Joint Joint - [facility] 2019-09-02 2019-09-02 Outpatient Tila Tadeo [id number] Common 12:24:00 12:24:00 t Bone Bone and Spiri t and Joint Joint - [facility] 2019-08-22 2019-08-22 Outpatient Tila Tadeo [id number] Common 09:00:00 09:00:00 t Bone Bone and Spiri t and Joint Joint - [facility] 2019-08-16 2019-08-16 Office JOSIANE Tuttle [id number] 12:53:30 13:30:16 Visit Ruth AMBULATOR [id number] Tangela-Kendall Y 0.2.7.2.686 [id number] [facility] [place] 2019-08-16 2019-08-16 Office JOSIANE Tuttle [id number] [place] [address] 12:53:30 13:30:16 Visit Ruth AMBULATOR [id number] Ben Bolt Tangela-Kendall Y 0.2.7.2.686 of [id number] [facility] 800 e 2019-07-25 2019-07-25 Outpatient Tila Tadeo 27 [id number] Common 10:00:00 10:00:00 t Bone Bone and Spiri t and Joint Joint - [facility] 2019-07-21 2019-07-21 Outpatient Tila Tadeo [id number] Common 20:21:00 20:21:00 t Bone Bone and Spiri t and Joint Joint - [facility] Results Test Description Test Time Test Comments Results Result Comments Source CHEM PANEL 2022-06-24 16:04:00 Test Item Value Reference Range Interpretation Comme nts POC Creatinine (test code = POC Creatinine) 1.0 0.5-1.4 [facility] [address] [id number] 16:04:00 Test Item Value Reference Range Interpretation Comments eGFR (test code = eGFR) 84 [facility] [address] [id number] 16:04:00 Test Item Value Reference Range Interpretation Comments POC Creatinine (test code = POC 1.0 0.5-1.4 Creatinine) [facility] [address] [id number] 16:04:00 Test Item Value Reference Range Interpretation Comments eGFR (test code = eGFR) 84 [facility] [id number] 00:00:00 Test Item Value Reference Range Interpretation Comments COLOR UA (test code = 5778-6) Yellow YELLOW/STRAW CLARITY UA (test code = 45886-6) Clear CLEAR GLUCOSE UA (test code = 5792-7) Negative NEGATIVE BILIRUBIN UA (test code = 5770-3) Negative NEGATIVE KETONES UA (test code = 72502-1) Negative NEGATIVE SPECIFIC GRAVITY UA (test code [...] NEGATIVE REDUCING SUBSTANCES URINE (test code = 10842-5) [facility] [id number] 00:00:00 Test Item Value Reference Range Interpretation Comments COLOR UA (test code = 5778-6) Yellow YELLOW/STRAW CLARITY UA (test code = 96828-6) Clear CLEAR GLUCOSE UA (test code = 5792-7) Negative NEGATIVE BILIRUBIN UA (test code = 5770-3) Negative NEGATIVE KETONES UA (test code = 17438-6) Negative NEGATIVE SPECIFIC GRAVITY UA (test code [...] NEGATIVE REDUCING SUBSTANCES URINE (test code = 44938-3) [facility] AAA, W/ DARRIUS.EXT.[id number] 17:50:00 [facility] CENTERName: KERON MORENO : 1955 Sex: MAddendum BeginsREPORT STATUS:A I have reviewed the CT images for this study and I concur with the nonvascular imaging findings as dictated. Signed: Irvin Shin MDReport Verified Date/Time: 09/16/2021 17:50:50 Reading Location: [facility] Diagnostic Imaging Reading Room [place] [address] 1.310.[address] En[address] REPORT CT angiography of the [...] performed according to our departmental dose-optimisation programme, whichincludes automated exposure control, adjustment of the mA and/or kV according to patient size and/oruse of iterative reconstruction technique. Dose modulation, iterative [...] mm, at image 127. There is no evid ence of acute aortic pathology, specifically, there is [...] the coeliac axis and SMA are widely p atent they are well enhanced by contrast. The [...] the setting of substantial calcification in the inaja vasculature. The 2 stents are widely patent withno in-stent stenosis identified bilaterally. Thereafter, the inaja distal left and right external il iac arteries are patent, with calcification present. In [...] of the artery is well enhanced by contrastand the plantar arch is seen distally. NON-VASCULAR: Lung bases unremarkable. Dependent changes are seen. In the abdomen, the liver and spleen appears unremarkable. The liver edge is smooth. No abnormal enhancing structure is identified. The gallbladder appears unremarkable. The adrenal glands are notenlarged. The pancreas have no gross abnormality present. No acute renal pathology seen and no hydronephrosis or perirenal fluid collection is identified. Small simple appearing renal cyst is identified in medial aspect of the right kidney, with no enhancement after contrast administration. Bowel is not well assessed by CT angiography as enteric contrast is not given. No obvious bowel dilation is iden tified. The appendix appears unremarkable. No free air [...] of calcific atherosclerosis. No in-stent stenosis is se en. Remainder the left and the right pelvic arteries are patent nonobstructive calcification identified. 3. The SFA and the profunda system as well as the popliteal arteries, bilaterally, have no obstructive lesion identified with minimal atherosclerosis seen. 4. Details of the runoff vessels as described above. 5. Other findings as described above. 6. An addendum will be dictated by the Doctor Naturopathic Radiologist regarding the nonvascular findings. THE REPORT WILL ONLY BE CONSIDERED COMPLETE AFTER THEADDENDUM HAS BEEN DICTATED. Signed: Placido [place] Verified Date/Time: 09/11/2021 09:17:52 M-[id number] 09:51:07 Test Item Value Reference Range Interpretation Comments POC-Creatinine (test 0.6 mg/dL 0.6-1.3 : TESTE D AT [place] [address] code = 1859) [facility], [address]: Welding Process Specialist/Techni jolanta ID = [id number] for Paul Cannon POC-EGFR (test code 135 mL/min/1.73M2 = 1860) [facility]-[id number] 09:51:07 Test Item Value Reference Range Interpretation Comments POC-Creatinine (test 0.6 mg/dL 0.6-1.3 : TESTE D AT [place] [address]384020 code = 1859) [facility], [address]: Welding Process Specialist/Techni jolanta ID = [id number] for Paul Cannon POC-EGFR (test code 135 mL/min/1.73M2 = 1860) [facility]-[id number] 09:51:07 Test Item Value Reference Range Interpretation Comments POC-Creatinine (test 0.6 mg/dL 0.6-1.3 : TESTE D AT [place] [address] code = 1859) [facility], [address]: Welding Process Specialist/Techni jolanta ID = [id number] for Paul Cannon POC-EGFR (test code 135 mL/min/1.73M2 = 1860) [facility]BE-[id number] 09:51:07 Test Item Value Reference Range Interpretation Comments POC-CREATININE 0.6 mg/dL 0.6-1.3 : TESTED AT [facility] (BEAKER) (test [address] [facility] code = 1859) [place], [address]: Welding Process Specialist/Techni jolanta ID = [id number] for Paul Cannon POC-EGFR (BEAKER) 135 mL/min/1.73M2 (test code = 1860) POCT URINALYSIS [id number] 00:00:00 Test Item Value Reference Range Interpretation Comments COLOR UA (test code = 5778-6) Yellow YELLOW/STRAW CLARITY UA (test code = 21817-3) Clear CLEAR GLUCOSE UA (test code = 5792-7) Negative NEGATIVE BILIRUBIN UA (test code = 5770-3) Negative NEGATIVE KETONES UA (test code = 06965-3) Negative NEGATIVE SPECIFIC GRAVITY UA (test code [...] NEGATIVE REDUCING SUBSTANCES URINE (test code = 72785-4) [facility] [id number] 00:00:00 Test Item Value Reference Range Interpretation Comments COLOR UA (test code = 5778-6) Yellow YELLOW/STRAW CLARITY UA (test code = 21881-1) Clear CLEAR GLUCOSE UA (test code = 5792-7) Negative NEGATIVE BILIRUBIN UA (test code = 5770-3) Negative NEGATIVE KETONES UA (test code = 12034-2) Negative NEGATIVE SPECIFIC GRAVITY UA (test code [...] NEGATIVE REDUCING SUBSTANCES URINE (test code = 76004-9) [facility] Hospital[facility], [facility]ST, 1 VIEW, NON [id number] 07:11:00Reason for exam:->ctShould this be performed at the bedside?->Yes [facility] : 1955 Sex: MFINAL REPORT RAD, CHEST, 1 VIEW, NON DEPT INDICATION: ct COMPARISON: Prior day's exam FINDINGS: Portable frontal view of the chest. IMPRESSION: Support Lines: None Lungs and pleura: Scattered subsegmental atelectasis. No new consolidation. No pneumothorax.Heart and mediastinum: Stable contours. Additional findings: None. Signed: JR Philip Robert MDReport Verified Date/Time:05/17/2021 07:11:01 Reading Location: [facility] Radiology Reading Room BASIC METABOLIC [id number] 06:35:00 Test Item Value Reference Range Interpretation [...] S NOT APPLICABLE FOR DIALYSIS PATIEN TS. Welding Process Specialist ID - TINY [id number] 06:35:00 Test Item Value Reference Range Interpretation Comments MAGNESIUM (BEAKER) (test code = 2.0 mg/dL 1.6-2.6 627) Welding Process Specialist ID - TINY [id number] 06:35:00 Test Item Value Reference Range Interpretation Comments PHOSPHORUS (BEAKER) (test code = 4.0 mg/dL 2.3-4.7 604) Welding Process Specialist ID - TINY WCBC W/PLT COUNT & AUTO [id number] 05:58:00 Test Item Value Reference Range Interpretation [...] (BEAKER) (test code = 2801) BASIC METABOLIC [id number] 08:28:00 Test Item Value Reference Range Interpretation [...] S NOT APPLICABLE FOR DIALYSIS PATIEN TS. Welding Process Specialist ID - JATINDER [id number] 08:28:00 Test Item Value Reference Range Interpretation Comments MAGNESIUM (BEAKER) (test code = 2.1 mg/dL 1.6-2.6 627) Welding Process Specialist ID - JATINDER [id number] 08:28:00 Test Item Value Reference Range Interpretation Comments PHOSPHORUS (BEAKER) (test code = 3.1 mg/dL 2.3-4.7 604) Welding Process Specialist ID - JATINDER WRAD, CHEST, 1 VIEW, NON [id number] 07:51:00Reason for exam:->ctShould this be performed at the bedside?->Yes [facility] : 1955 Sex: MFINAL REPORT [...] Shin Verified Date/Time: 05/16/2021 07:51:48 Reading Location: [facility] B1 C013T Transitional Reading Room POCT-GLUCOSE [id number] 07:47:00 Test Item Value Reference Range Interpretation Comments POC-GLUCOSE METER 106 mg/dL 70-110 : TESTED A T [facility] 6720 (BEAKER) (test code = [place], 1538) [address]: Welding Process Specialist/Techni jolanta ID = [id number] for BRITNI LUU CBC W/PLT COUNT & AUTO [id number] 07:05:00 Test Item Value Reference Range Interpretation [...] PERCENT (BEAKER) (test code = 2801) CALCIUM, [id number] 07:04:00 Test Item Value Reference Range Interpretation Comments CALCIUM IONIZED (BEAKER) (test 1.17 mmol/L 1.12-1.27 code = 698) PH, BLOOD (BEAKER) (test code = 7.39 1810) POCT-GLUCOSE [id number] 21:25:00 Test Item Value Reference Range Interpretation Comments POC-GLUCOSE METER 131 mg/dL 70-110 H : TESTED A T [facility] 6720 (BEAKER) (test code = [facility], 153) [address]: Welding Process Specialist/Techni jolanta ID = [id number] for Co Tai vana POCT-GLUCOSE [id number] 17:55:00 Test Item Value Reference Range Interpretation Comments POC-GLUCOSE METER 106 mg/dL 70-110 : TESTED A T [facility] 6720 (BEAKER) (test code = [facility], 153) [address]: Welding Process Specialist/Techni jolanta ID = [id number] for Kalen AGUSTIN POCT-GLUCOSE [id number] 12:51:00 Test Item Value Reference Range Interpretation Comments POC-GLUCOSE METER 116 mg/dL 70-110 H : TESTED A T [facility] 6720 (BEAKER) (test code = [facility], 153) [address]: Welding Process Specialist/Techni jolanta ID = [id number] for GO NZALEZ, LLANE RAD, CHEST, 1 VIEW, NON [id number] 08:07:00Reason for exam:->ctShould this be performed at the bedside?->Yes [facility] CENTERName: KERON MORENO : 1955 Sex: MFINAL [...] Mooney Verified Date/Time: 05/15/2021 08:07:09 Reading Location: [address] Ortho Consult Reading Room POCT-GLUCOSE [id number] 08:00:00 Test Item Value Reference Range Interpretation Comments POC-GLUCOSE METER 120 mg/dL 70-110 H : TESTED A T [facility] 6720 (BEAKER) (test code = [facility] [place] [facility], 1538) [address]: Welding Process Specialist/Techni jolanta ID = [id number] for Lexus Hernández BASIC METABOLIC [id number] 06:15:00 Test Item Value Reference Range Interpretation [...] S NOT APPLICABLE FOR DIALYSIS PATIEN TS. Welding Process Specialist ID - [id number] 06:15:00 Test Item Value Reference Range Interpretation Comments MAGNESIUM (BEAKER) (test code = 2.0 mg/dL 1.6-2.6 627) Welding Process Specialist ID - [id number] 06:15:00 Test Item Value Reference Range Interpretation Comments PHOSPHORUS (BEAKER) (test code = 3.1 mg/dL 2.3-4.7 604) Welding Process Specialist ID - EDASICBC W/PLT COUNT & AUTO [id number] 05:47:00 Test Item Value Reference Range Interpretation [...] 0-1 PERCENT (BEAKER) (test code = 2801) [id number] 08:39:00 Test Item Value Reference Range Interpretation Comments MAGNESIUM (BEAKER) (test code = 1.9 mg/dL 1.6-2.6 627) Welding Process Specialist ID - ADMINRAD, CHEST, 1 VIEW, NON [id number] 07:57:00while patient is intubated or has chest tubes.Reason for exam:->Status post CV SurgeryShould thisbe performed at the bedside?->Yes [facility] FERMIN : 1955 Sex: MFINAL REPORT TECHNIQUE: Frontal view of the chest. INDICATION: 65-year-old man status post cardiovascular surgery. COMPARISON: Chest radiograph 05/13/2021. FINDINGS: LINES/TUBES: Interval extubation and removal of the nasogastric/orogastric tube. Other lines/tubes are unchanged. LUNGS:Persistent streaky atelectasis in the left lung base. PLEURA: No pneumothorax or significant pleuraleffusion. HEART AND MEDIASTINUM: Cardiomediastinal silhouette is unchanged. Atherosclerotic calcifications in the thoracic aorta. BONES AND SOFT TISSUES: Unremarkable. IMPRESSION:Lines/tubes as above. Otherwise, no significant change since 05/13/2021. Signed: Hailey Samaniego Verified Date/Time:05/14/2021 07:57:54 Reading Location: [facility] Diagnostic Imaging Reading Room [place] [address] [id number] 06:59:00 Test Item Value Reference Range Interpretation Comments MAGNESIUM (BEAKER) 5.3 mg/dL 1.6-2.6 HH Specimen slightly (test code = 627) hemolyzed Welding Process Specialist ID - PIAYA [id number] 06:38:00 Test Item Value Reference Range Interpretation Comments ACTIVATED CLOTTING TIME 109 sec : 74 -137 seconds, (BEAKER) (test code = Baseli ne: TESTED AT 441) [address], [address]: Welding Process Specialist/Techni jolanta ID = [id number] for CHAPIN KUHN [id number] 06:38:00 Test Item Value Reference Range Interpretation Comments ACTIVATED CLOTTING TIME 125 sec : 74 -137 seconds, (BEAKER) (test code = Baseli ne: TESTED AT 441) [facility] [address] [place] [address], [address]: Welding Process Specialist/Techni jolanta ID = [id number] for CHAPIN KUHN [id number] 06:38:00 Test Item Value Reference Range Interpretation Comments ACTIVATED CLOTTING TIME 318 sec : 74 -137 seconds, (BEAKER) (test code = Baseli ne: TESTED AT 441) [facility] [address] [facility], [address]: Welding Process Specialist/Techni jolanta ID = [id number] for CHAPIN KUHN [id number] 06:38:00 Test Item Value Reference Range Interpretation Comments ACTIVATED CLOTTING TIME 290 sec : 74 -137 seconds, (BEAKER) (test code = Baseli ne: TESTED AT 441) [facility] [address] [facility], [address]: Welding Process Specialist/Techni jolanta ID = [id number] for CHAPIN KUHN [id number] 06:37:00 Test Item Value Reference Range Interpretation Comments ACTIVATED CLOTTING TIME 224 sec : 74 -137 seconds, (BEAKER) (test code = Baseli ne: TESTED AT 441) [facility] [address] [facility], [address]: Welding Process Specialist/Techni jolanta ID = [id number] for CHAPIN KUHN [id number] 06:06:00 Test Item Value Reference Range Interpretation Comments PHOSPHORUS (BEAKER) 4.1 mg/dL 2.3-4.7 Specimen slightly (test code = 604) hemolyzed Welding Process Specialist ID - PIAYA LBASIC METABOLIC [id number] 06:06:00 Test Item Value Reference Range Interpretation [...] S NOT APPLICABLE FOR DIALYSIS PATIEN TS. Welding Process Specialist ID - PIAYA LCBC (HEMOGRAM ONLY)2021-05-14 05:17:00 [...] (BEAKER) (test code = 413) BLOOD GAS, [id number] 05:15:00 Test Item Value Reference Range Interpretation [...] (BEAKER) (test code = 1819) 36.0 GLUCOSE-STAT [id number] 05:15:00 Test Item Value Reference Range Interpretation Comments GLUCOSE RANDOM (BEAKER) (test code 137 mg/dL 70-110 H = 652) HGB/HCT (H&H) - STAT [id number] 05:15:00 Test Item Value Reference Range Interpretation Comments HEMOGLOBIN (BEAKER) (test code = 13.2 GM/DL 13.0-16.8 410) HEMATOCRIT (BEAKER) (test code = 39.0 % 40.0-50.0 L 411) CALCIUM, [id number] 05:15:00 Test Item Value Reference Range Interpretation Comments CALCIUM IONIZED (BEAKER) (test 1.17 mmol/L 1.12-1.27 code = 698) PH, BLOOD (BEAKER) (test code = 7.38 1810) SODIUM NA-STAT [id number] 05:13:00 Test Item Value Reference Range Interpretation Comments SODIUM (BEAKER) (test code = 381) 137 meq/L 136-145 POTASSIUM-STAT [id number] 05:13:00 Test Item Value Reference Range Interpretation Comments POTASSIUM (BEAKER) (test code = 4.0 meq/L 3.6-5.5 379) RAD, CHEST, 1 VIEW, NON [id number] 03:17:00Reason for exam:->Status post CV Surgery post op day 0Should this be performed at the bedside?->Yes [facility] : 1955 Sex: MFINAL REPORT [...] MDReport Verified Date/Time: 05/14/2021 03:17:59 BASIC METABOLIC [id number] 19:57:00 Test Item Value Reference Range Interpretation [...] S NOT APPLICABLE FOR DIALYSIS PATIEN TS. Welding Process Specialist ID - [id number] 19:52:00 Test Item Value Reference Range Interpretation Comments MAGNESIUM (BEAKER) (test code = 2.1 mg/dL 1.6-2.6 627) Welding Process Specialist ID - [id number] 19:52:00 Test Item Value Reference Range Interpretation Comments PHOSPHORUS (BEAKER) (test code = 3.5 mg/dL 2.3-4.7 604) Welding Process Specialist ID - DBLACTIC ACID, [id number] 19:47:00 Test Item Value Reference Range Interpretation Comments LACTATE BLOOD ARTERIAL (2) 1.2 mmol/L 0.5-2.2 (BEAKER) (test code = 2874) Welding Process Specialist ID - [id number] 19:36:00 Test Item Value Reference Range Interpretation Comments FIBRINOGEN LEVEL (BEAKER) (test 311 mg/dl 225-434 code = 658) [id number] 19:36:00 Test Item Value Reference Range Interpretation Comments PARTIAL THROMBOPLASTIN TIME 27.4 seconds 22.5-36.0 (BEAKER) (test code = 760) PROTHROMBIN [id number] 19:35:00 Test Item Value Reference Range Interpretation Comments PROTIME (BEAKER) 14.8 seconds 11.9-14.2 H (test code = 759) INR (BEAKER) (test 1.18 See_Comment [Automat ed message] code = 370) The system [employer] generated this result transmitted ref erence range: <=5.90. The reference range was not used to int erpret this result as normal/abnormal . RECOMMENDED COUMADIN/WARFARIN INR THERAPY RANGESSTANDARD DOSE: 2.0 - 3.0 Includes: PROPHYLAXIS for venous thrombosis, systemic embolization; TREATMENT for venous thrombosis and/or pulmonary embolus.HIGH RISK: Target INR is 2.5-3.5 for patients with mechanical heart valves.CBC W/PLT COUNT & AUTO [id number] 19:26:00 Test Item Value Reference Range Interpretation [...] (BEAKER) (test code = 2801) BLOOD GAS, [id number] 19:15:00 Test Item Value Reference Range Interpretation [...] 36.4 (test code = 1818) BLOOD GAS, [id number] 18:36:00 Test Item Value Reference Range Interpretation [...] (BEAKER) (test code = 1819) 54.0 GLUCOSE-STAT [id number] 18:36:00 Test Item Value Reference Range Interpretation Comments GLUCOSE RANDOM (BEAKER) (test code 132 mg/dL 70-110 H = 652) HGB/HCT (H&H) - STAT [id number] 18:36:00 Test Item Value Reference Range Interpretation Comments HEMOGLOBIN (BEAKER) (test code = 11.7 GM/DL 13.0-16.8 L 410) HEMATOCRIT (BEAKER) (test code = 34.0 % 40.0-50.0 L 411) SODIUM NA-STAT [id number] 18:35:00 Test Item Value Reference Range Interpretation Comments SODIUM (BEAKER) (test code = 381) 138 meq/L 136-145 POTASSIUM-STAT [id number] 18:35:00 Test Item Value Reference Range Interpretation Comments POTASSIUM (BEAKER) (test code = 3.7 meq/L 3.6-5.5 379) LACTIC ACID, [id number] 16:33:00 Test Item Value Reference Range Interpretation Comments LACTATE BLOOD ARTERIAL (2) 1.1 mmol/L 0.5-2.2 (BEAKER) (test code = 2874) Welding Process Specialist ID - EMERSONBLOOD GAS, [id number] 15:41:00 Test Item Value Reference Range Interpretation [...] = 1819) 50.0 HGB/HCT (H&H) - STAT [id number] 15:41:00 Test Item Value Reference Range Interpretation Comments HEMOGLOBIN (BEAKER) (test code = 12.9 GM/DL 13.0-16.8 L 410) HEMATOCRIT (BEAKER) (test code = 38.0 % 40.0-50.0 L 411) GLUCOSE-STAT [id number] 15:40:00 Test Item Value Reference Range Interpretation Comments GLUCOSE RANDOM (BEAKER) (test code 108 mg/dL 70-110 = 652) SODIUM NA-STAT [id number] 15:40:00 Test Item Value Reference Range Interpretation Comments SODIUM (BEAKER) (test code = 381) 139 meq/L 136-145 POTASSIUM-STAT [id number] 15:40:00 Test Item Value Reference Range Interpretation Comments POTASSIUM (BEAKER) (test code = 4.0 meq/L 3.6-5.5 379) CALCIUM, [id number] 15:18:00 Test Item Value Reference Range Interpretation Comments CALCIUM IONIZED (BEAKER) (test 1.09 mmol/L 1.12-1.27 L code = 698) PH, BLOOD (BEAKER) (test code = 7.41 1810) BLOOD GAS, [id number] 15:16:00 Test Item Value Reference Range Interpretation [...] (BEAKER) (test code = 1819) 55.0 POTASSIUM-STAT [id number] 15:16:00 Test Item Value Reference Range Interpretation Comments POTASSIUM (BEAKER) (test code = 3.4 meq/L 3.6-5.5 L 379) HGB/HCT (H&H) - STAT [id number] 15:16:00 Test Item Value Reference Range Interpretation Comments HEMOGLOBIN (BEAKER) (test code = 11.8 GM/DL 13.0-16.8 L 410) HEMATOCRIT (BEAKER) (test code = 35.0 % 40.0-50.0 L 411) GLUCOSE-STAT [id number] 15:08:00 Test Item Value Reference Range Interpretation Comments GLUCOSE RANDOM (BEAKER) (test code 107 mg/dL 70-110 = 652) SODIUM NA-STAT [id number] 15:08:00 Test Item Value Reference Range Interpretation Comments SODIUM (BEAKER) (test code = 381) 138 meq/L 136-145 LACTIC ACID, [id number] 15:07:00 Test Item Value Reference Range Interpretation Comments LACTATE BLOOD VENOUS (2) (BEAKER) 0.99 mmol/L 0.50-2.20 (test code = 2872) Welding Process Specialist ID - EMERSONHGB/HCT (H&H) - STAT [id number] 14:38:00 Test Item Value Reference Range Interpretation Comments HEMOGLOBIN (BEAKER) (test code = 12.9 GM/DL 13.0-16.8 L 410) HEMATOCRIT (BEAKER) (test code = 38.0 % 40.0-50.0 L 411) CALCIUM, [id number] 14:38:00 Test Item Value Reference Range Interpretation Comments CALCIUM IONIZED (BEAKER) (test 1.22 mmol/L 1.12-1.27 code = 698) PH, BLOOD (BEAKER) (test code = 7.36 1810) BLOOD GAS, [id number] 14:37:00 Test Item Value Reference Range Interpretation [...] (BEAKER) (test code = 1819) 73.0 GLUCOSE-STAT [id number] 14:37:00 Test Item Value Reference Range Interpretation Comments GLUCOSE RANDOM (BEAKER) (test code 102 mg/dL 70-110 = 652) SODIUM NA-STAT [id number] 14:37:00 Test Item Value Reference Range Interpretation Comments SODIUM (BEAKER) (test code = 381) 139 meq/L 136-145 POTASSIUM-STAT [id number] 14:37:00 Test Item Value Reference Range Interpretation Comments POTASSIUM (BEAKER) (test code = 3.8 meq/L 3.6-5.5 379) CALCIUM, [id number] 13:40:00 Test Item Value Reference Range Interpretation Comments CALCIUM IONIZED (BEAKER) (test 1.12 mmol/L 1.12-1.27 code = 698) PH, BLOOD (BEAKER) (test code = 7.43 1810) GLUCOSE-STAT [id number] 13:39:00 Test Item Value Reference Range Interpretation Comments GLUCOSE RANDOM (BEAKER) (test code 104 mg/dL 70-110 = 652) SODIUM NA-STAT [id number] 13:39:00 Test Item Value Reference Range Interpretation Comments SODIUM (BEAKER) (test code = 381) 140 meq/L 136-145 POTASSIUM-STAT [id number] 13:39:00 Test Item Value Reference Range Interpretation Comments POTASSIUM (BEAKER) (test code = 3.7 meq/L 3.6-5.5 379) BLOOD GAS, [id number] 13:39:00 Test Item Value Reference Range Interpretation [...] = 1819) 79.0 HGB/HCT (H&H) - STAT [id number] 13:39:00 Test Item Value Reference Range Interpretation Comments HEMOGLOBIN (BEAKER) (test code = 13.3 GM/DL 13.0-16.8 410) HEMATOCRIT (BEAKER) (test code = 39.0 % 40.0-50.0 L 411) POCT-GLUCOSE [id number] 09:40:00 Test Item Value Reference Range Interpretation Comments POC-GLUCOSE METER 115 mg/dL 70-110 H : TESTED A T [facility] 6720 (BEAKER) (test code = [place], 1538) [address]: Welding Process Specialist/Techni jolanta ID = [id number] for CLAYTON LEWIS SARS-COV2/RT-PCR ([facility])2021-05-12 01:07:00 Test Item Value Reference Range Interpretation Comments SARS-COV2/RT-PCR (test Negative Not Detected, Negative, code = 7803229) See external report for linked test SARS-COV-2 PERFORMING LAB [facility] CRISTIAN (test code = 4801520) Negative result for this test determines that [...] individuals suspected of COVID-19 by their healthcare provider.This test [...] justifying the authorization of the emergency use ofin vitro diagnostic tests for detection and/or diagnosis of COVID-19 is terminated under Section 564(b)(2) of the Act or the EUA is revoked under Section 564(g) of the Act.Testing was performed using the Arias SARS-CoV-2 assay.Fact Sheet for Healthcare Providers:https://www.molecular.arias/gisel/RT_SAR P-XoT-4_JIL_Dtgj_Qvegg_12-787767.pdfFact Sheet for Healthcare Patients:https://www.molecular.arias/s al/EK_NDZG-KdF-6_Zmrtsjr_Mtoj_Pvacv_TR_78-026417J5.pdfPerforming Laboratory:[facility] [place] [address] HEMOGLOBIN [id number] 13:53:00 Test Item Value Reference Range Interpretation Comments HEMOGLOBIN A1C (BEAKER) (test code = 6.4 % 4.3-6.1 H 368) COMPREHENSIVE METABOLIC [id number] 13:44:00 Test Item Value Reference Range Interpretation [...] S NOT APPLICABLE FOR DIALYSIS PATIEN TS. Welding Process Specialist ID - [id number] 13:44:00 Test Item Value Reference Range Interpretation Comments MAGNESIUM (BEAKER) (test code = 2.3 mg/dL 1.6-2.6 627) Welding Process Specialist ID - DBLIPID [id number] 13:44:00 Test Item Value Reference Range Interpretation Comments TRIGLYCERIDES (BEAKER) (test code = 135 mg/dL 540) CHOLESTEROL (BEAKER) (test code = 114 mg/dL 631) HDL CHOLESTEROL (BEAKER) (test code 37 mg/dL = 976) LDL CHOLESTEROL CALCULATED (BEAKER) 50 mg/dL (test code = 633) Triglyceride Reference Range: Low Risk <150 Borderline 150-199 High Risk 200- 499 Very High Risk >=500Cholesterol Reference Range: Low Risk <200 Borderline 200-239 High Risk >240HDL Cholesterol Reference Range: Low Risk >=60 High Risk <40LDL Cholesterol Reference Range: Optimal <100 Near Optimal 100-129 Borderline 130-159 High 160-189 Very High >=190 Welding Process Specialist ID - [id number] 13:40:00 Test Item Value Reference Range Interpretation Comments PARTIAL THROMBOPLASTIN TIME 28.0 seconds 22.5-36.0 (BEAKER) (test code = 760) PROTHROMBIN TIME/[id number] 13:39:00 Test Item Value Reference Range Interpretation Comments PROTIME (BEAKER) 12.7 seconds 11.9-14.2 (test code = 759) INR (BEAKER) (test 0.97 See_Comment [Automat ed message] code = 370) The system [employer] generated this result transmitted ref erence range: <=5.90. The reference range was not used to int erpret this result as normal/abnormal . RECOMMENDED COUMADIN/WARFARIN INR THERAPY RANGESSTANDARD DOSE: 2.0 - 3.0 Includes: PROPHYLAXIS for venous thrombosis, systemic embolization; TREATMENT for venous thrombosis and/or pulmonary embolus.HIGH RISK: Target INR is 2.5-3.5 for patients with mechanical heart valves.CBC W/PLT COUNT & AUTO [id number] 13:15:00 Test Item Value Reference Range Interpretation [...] (test code = 2801) HIGH SENSITIVITY TROPONIN [id number] 21:19:00 Test Item Value Reference Range Interpretation Comments HIGH SENSITIVITY 36 pg/ml See_Comment H [Automated message] TROPONIN I (test code = The system which [id number]) generated this result transmitted ref erence range: <=35. Th e reference range was not used to int erpret this result as normal/abnormal . Welding Process Specialist ID - CINDY BThe TRANSFER PUMPER STAT High Sensitivity Troponin-I results should be used in conjunction with other diagnostic information such as ECG, clinical observations and information, and patient symptoms to aid in the diagnosis of DE.HIGH SENSITIVITY TROPONIN [id number] 13:20:00 Test Item Value Reference Range Interpretation Comments HIGH SENSITIVITY 36 pg/ml See_Comment H [Automated message] TROPONIN I (test code = The system which [id number]) generated this result transmitted ref erence range: <=35. Th e reference range was not used to int erpret this result as normal/abnormal . Welding Process Specialist ID - MARICEL CThe TRANSFER PUMPER STAT High Sensitivity Troponin-I results should be used in conjunction with other diagnostic information such as ECG, clinical observations and information, and patientsymptoms to aid in the diagnosis of DE. BASIC METABOLIC [id number] 04:46:00 Test Item Value Reference Range Interpretation [...] S NOT APPLICABLE FOR DIALYSIS PATIEN TS. Welding Process Specialist ID - JAK [id number] 04:46:00 Test Item Value Reference Range Interpretation Comments MAGNESIUM (BEAKER) (test code = 2.1 mg/dL 1.6-2.6 627) Welding Process Specialist ID - JAK MCBC W/PLT COUNT & AUTO [id number] 04:32:00 Test Item Value Reference Range Interpretation [...] PERCENT (BEAKER) (test code = 2801) CT, [id number] 22:08:00Unlisted Reason for Exam - Click Yes and Enter Reason Below->YesUnlisted Reason for Exam->Evaluate descending aorta calcification to femoral iliac vessels, prior to cabgWill this procedure require oral contrast?->No [facility] CENTERName: KERON MORENO : 1955 Sex: MFINAL [...] abdominal aorta and bilateral common iliac arteries. Bi lateral common iliac artery stents. Mild to moderate calcifications of the bilateral common femoral arteries. Post vascular access changes in the right groin with a small amount of blood products infiltrating soft tissues of the right groin without hematoma.Abdominal wall: As above.Bones: Degenerativechanges of the lumbar spine most notable at L4-L5 and L5-S1. IMPRESSION: Lack of intravenous contrast compromises evaluation of perfusion and for isodense lesions. 1.Mild to moderate calcifications of the bilateral common femoral arteries 2.Moderate to severe calcifications of the abdominal aorta and b ilateral common iliac arteries with bilateral common iliac artery stents. Signed: Sharita Pedraza Verified Date/Time: 05/03/2021 22:08:57 Reading Location: [address] Transitional Reading Room [id number] 16:21:00 Test Item Value Reference Range Interpretation Comments ACTIVATED CLOTTING TIME 131 sec : 74 -137 seconds, (BEAKER) (test code = Baseli ne: TESTED AT [facility]) [place] [address]: Welding Process Specialist/Techni jolanta ID = [id number] for ILLORY (V), IGNACIO [id number] 15:12:00 Test Item Value Reference Range Interpretation Comments ACTIVATED CLOTTING TIME 158 sec : 74 -137 seconds, (BEAKER) (test code = Baseli ne: TESTED AT 441) [place] [address]: Welding Process Specialist/Techni jolanta ID = [id number] for ILLORY (V), IGNACIO [id number] 12:13:00 Test Item Value Reference Range Interpretation Comments ACTIVATED CLOTTING TIME 290 sec : 74 -137 seconds, (BEAKER) (test code = Baseli ne: TESTED AT 441) [address], [facility] 30: Welding Process Specialist/Techni jolanta ID = [id number] for CA RPIO, VIRGINIE [id number] 12:00:00 Test Item Value Reference Range Interpretation Comments ACTIVATED CLOTTING TIME 252 sec : 74 -137 seconds, (BEAKER) (test code = Baseli ne: TESTED AT 441) [place] [address]: Welding Process Specialist/Techni jolanta ID = [id number] for CA RPIO, [place] BASIC METABOLIC [id number] 08:47:00 Test Item Value Reference Range Interpretation [...] S NOT APPLICABLE FOR DIALYSIS PATIEN TS. Welding Process Specialist ID - AAHAMIDPROTHROMBIN TIME/[id number] 08:38:00 Test Item Value Reference Range Interpretation Comments PROTIME (BEAKER) 13.1 seconds 11.9-14.2 (test code = 759) INR (BEAKER) (test 1.01 See_Comment [Automat ed message] code = 370) The system [employer] generated this result transmitted ref erence range: <=5.90. The reference range was not used to int erpret this result as normal/abnormal . RECOMMENDED COUMADIN/WARFARIN INR THERAPY RANGESSTANDARD DOSE: 2.0 - 3.0 Includes: PROPHYLAXIS for venous thrombosis, systemic embolization; TREATMENT for venous thrombosis and/or pulmonary embolus.HIGH RISK: Target INR is 2.5-3.5 for patients with mechanical heart valves.CBC W/PLT COUNT & AUTO [id number] 08:29:00 Test Item Value Reference Range Interpretation [...] PERCENT (BEAKER) (test code = 2801) SARS-COV2/RT-PCR ([facility])2021-04-29 18:08:00 Test Item Value Reference Range Interpretation Comments SARS-COV2/RT-PCR (test Negative Not Detected, Negative, code = 8133476) See external report for linked test SARS-COV-2 PERFORMING LAB [facility] (test code = 2443128) Negative result for this test determines that [...] individuals suspected of COVID-19 by their healthcare provider.This test [...] justifying the authorization of the emergency use ofin vitro diagnostic tests for detection and/or diagnosis of COVID-19 is terminated under Section 564(b)(2) of the Act or the EUA is revoked under Section 564(g) of the Act.Fact Sheet for Healthcare Prov iders:https://www.Planex/sites/default/files/product/documents/Fact_Sheet_HC _Dwsqjaili_Zody_ORXH-SxK-9.pdfFact Sheet for Healthcare Patients:https://www.Planex/sites/default/files/product/docume nts/Zxzq_Unowi_Ytuihqzy_Cxet_SZMD-AqI-2.pdfPerforming Laboratory:[facility], [place] [address]EIEVA METABOLIC PANEL 2021-04-29 13:20:00 Test Item Value [...] S NOT APPLICABLE FOR DIALYSIS PATIEN TS. Welding Process Specialist ID - JAK MPROTHROMBIN TIME/[id number] 11:14:00 Test Item Value Reference Range Interpretation Comments PROTIME (BEAKER) 13.3 seconds 11.9-14.2 (test code = 759) INR (BEAKER) (test 1.03 See_Comment [Automat ed message] code = 370) The system [employer] generated this result transmitted ref erence range: <=5.90. The reference range was not used to int erpret this result as normal/abnormal . RECOMMENDED COUMADIN/WARFARIN INR THERAPY RANGESSTANDARD DOSE: 2.0 - 3.0 Includes: PROPHYLAXIS for venous thrombosis, systemic embolization; TREATMENT for venous thrombosis and/or pulmonary embolus.HIGH RISK: Target INR is 2.5-3.5 for patients with mechanical heart valves.CBC W/PLT COUNT & AUTO [id number] 11:03:00 Test Item Value Reference Range Interpretation [...] (BEAKER) (test code = 2801) POCT URINALYSIS [id number] 00:00:00 Test Item Value Reference Range Interpretation Comments COLOR UA (test code = 5778-6) Colorless YELLOW/STRAW CLARITY UA (test code = 11519-3) Clear CLEAR GLUCOSE UA (test code = 5792-7) Negative NEGATIVE BILIRUBIN UA (test code = 5770-3) Negative NEGATIVE KETONES UA (test code = 30509-9) Negative NEGATIVE SPECIFIC GRAVITY UA (test code [...] REDUCING SUBSTANCES URINE (test NEGATIVE code = 67570-2) [facility], [facility] TRANG [id number] 13:53:00 [facility] CENTERName: KERON MORENO : 1955 Sex: MFINAL REPORT EXAM: CALCIUM SCORE AND CORONARY CTA INDICATION: Chest pain, acute, nonspecific COMPARISON: None. TECHNIQUE: Multi-detector CT technology was employed ( Discovery CT 750 HD 64 MDCT Areshay). Minimal slice thickness was performed following the intravenous administration of contrast material. Medications per epic notes. IV CONTRAST: 100 mL of Isovue-370 ORAL CONTRAST: None COMPLICATIONS: None RADIATION DOSE: Total DLP: 544.7 mGy*cm Estimated effective dose: (DLP x 0.015 x size factor) mSv CTDIvol has been [...] gives rise to a conus branch, AV gaytari branch, and two acute marginal branches. In its distalsegment it bifurcates into the PDA and PV [...] visualized chest show no abnormality within chest walland mediastinum. No mediastinal lymphadenopathy. Mild subsegmental atelectasis in the right lower lobe. The visualized portions of the ascending and descending thoracic aorta are of normal size. Atherosclerotic calcifications of the aortic root. Small hiatal hernia. LIMITED ABDOMEN:Limited images of the upper abdomen reveal no abnormalities of the visualized organs. BONES:Mild multilevel degenerativechanges of the thoracic spine. IMPRESSION: 1. Total Agatston Calcium Score: 995 that corresponds to percentile 90%, representing extensive plaque burden. 2. Normal coronary anatomy. 3. Multivessel coronary artery disease including 40% stenosis of the proximal and at least 50% stenosis of distal left main coronary artery, severe stenosis of the proximal LAD and LCx, moderate stenosis of the ostial RCAand severe stenoses of the mid RCA. Preliminary report was communicated to Dr. Dennison via email (which was answered immediately) on 03/22/2021 at 4:45 PM. Signed: Kayla Jesus MDReport Verified Date/Time: 03/23/2021 13:53:11 [id number] 10:20:00 Test Item Value Reference Range Interpretation Comments POC-CREATININE 0.9 mg/dL 0.6-1.3 : TESTED AT [facility] ([facility]) (test [address] [facility] code = 1859) [facility] 7 [address]30: Welding Process Specialist/Techni jolanta ID = [id number] for IRVIN EPPERSON POC-EGFR 85 mL/min/1.73M2 ([facility]) (test code = 1860) POCT URINALYSIS [id number] 00:00:00 Test Item Value Reference Range Interpretation Comments COLOR UA (test code = 5778-6) Yellow YELLOW/STRAW CLARITY UA (test code = 25852-4) Clear CLEAR GLUCOSE UA (test code = 5792-7) Negative NEGATIVE BILIRUBIN UA (test code = 5770-3) Negative NEGATIVE KETONES UA (test code = 92259-7) Negative NEGATIVE SPECIFIC GRAVITY UA (test code [...] NEGATIVE REDUCING SUBSTANCES URINE (test code = 42962-4) [facility]2021-01-05 02:00:00 Test Item Value Reference Range Interpretation Comments SARS-COV2/RT-PCR (test Negative Not Detected, Negative, code = 1813891) See external report for linked test SARS-COV-2 PERFORMING LAB [facility] (test code = 4357182) Negative result for this test determines that [...] individuals suspected of COVID-19 by their healthcare provider.This test [...] justifying the authorization of the emergency use ofin vitro diagnostic tests for detection and/or diagnosis of COVID-19 is terminated under Section 564(b)(2) of the Act or the EUA is revoked under Section 564(g) of the Act.Testing was performed using the Arias SARS-CoV-2 assay.Fact Sheet for Healthcare Providers:https://www.[employer]/gisel/RT_SAR B-StL-6_FBK_Fmxt_Zmbbs_62-351058.pdfFact Sheet for Healthcare Patients:https://www.[employer]/s al/HI_UZBG-KdO-7_Bftkxmc_Fzih_Jcnah_ZK_98-337655B8.pdfPerforming Laboratory:[facility] [place] [address] BASIC METABOLIC [id number] 13:40:00 Test Item Value Reference Range Interpretation [...] S NOT APPLICABLE FOR DIALYSIS PATIEN TS. Welding Process Specialist ID - JAK MPROTHROMBIN TIME/[id number] 13:21:00 Test Item Value Reference Range Interpretation Comments PROTIME (BEAKER) 12.7 seconds 11.9-14.2 (test code = 759) INR (BEAKER) (test 0.99 See_Comment [Automat ed message] code = 370) The system [employer] generated this result transmitted ref erence range: <=5.90. The reference range was not used to int erpret this result as normal/abnormal . Effective 04/03/2019: PT Reference Range ChangeNew: 11.9-14.2 Previous: 11.7- 14.7RECOMMENDED COUMADIN/WARFARIN INR THERAPY RANGESSTANDARD DOSE: 2.0-3.0 Includes: PROPHYLAXIS for venous thrombosis, systemic embolization; TREATMENT for venous thrombosis and/or pulmonary embolus.HIGH RISK: Target INR is 2.5-3.5 for patients wiht mechanical heart valves.CBC W/PLT COUNT & AUTO [id number] 13:14:00 Test Item Value Reference Range Interpretation [...] (BEAKER) (test code = 2801) POCT URINALYSIS [id number] 00:00:00 Test Item Value Reference Range Interpretation Comments COLOR UA (test code = 5778-6) Colorless YELLOW/STRAW CLARITY UA (test code = 42639-8) Clear CLEAR GLUCOSE UA (test code = 5792-7) Negative NEGATIVE BILIRUBIN UA (test code = 5770-3) Negative NEGATIVE KETONES UA (test code = 25625-5) Negative NEGATIVE SPECIFIC GRAVITY UA (test code [...] NEGATIVE REDUCING SUBSTANCES URINE (test code = 71216-2) [facility] by [facility] (HIGH RISK)2020-09-23 00:00:00 Test Item Value Reference Range Interpretation Comments SARS-CoV-2 INTERPRETATION Negative (test code = 34233) SOURCE (test code = 69307) Nasal_Swab_in_VTM__ UTM SARS-CoV-2 (COVID-19) by RT-PCR (HIGH RISK)2020-09-16 00:00:00 Test Item Value Reference Range Interpretation Comments SARS-CoV-2 INTERPRETATION Negative (test code = 40460) SOURCE (test code = 80473) Nasal_Swab_in_VTM__ UTM CULTURE, [id number] 00:00:00 Test Item Value Reference Range Interpretation Comments CULTURE, URINE (test SPECIMEN NUMBER: code = 19720) [id number] CULTURE, [id number] 00:00:00 Test Item Value Reference Range Interpretation Comments CULTURE, URINE (test SPECIMEN NUMBER: code = 66387) [id number] PSA, [id number] 00:00:00 Test Item Value Reference Range Interpretation Comments PSA, TOTAL (test code = 2606) 0.26 NG/ML PSA, [id number] 00:00:00 Test Item Value Reference Range Interpretation Comments PSA, TOTAL (test code = 2606) 0.26 NG/ML PSA, [id number] 00:00:00 Test Item Value Reference Range Interpretation Comments PSA, TOTAL (test code = 2606) 0.26 NG/ML MR, BRAIN, WITHOUT IV [id number] 10:00:00FINAL REPORT History: Numbness and tinglingComparison studies: Brain MRI 02/23/2019. Technique: Sagittal and axial T2 FS, axial DWI, axial T2*GRE, axial T1 FLAIR and axial coronal T2 FLAIR.Intravenous contrast: None Findings: Scalp: Normal in signal. No masses.Bone marrow: Normal in signal intensity. Brain sulci: Appropriate for age.Ventricles: Normal in size. No hydrocephalus.Extra axial spaces: No mass, no fluid collection. Parenchyma:No mass, hemorrhage or acute ischemia. A few scattered T2 FLAIR hyperintense foci in the supratentorial white matter are nonspecific but most compatible with chronic microvascular ischemic changes. Suprasellar region: No abnormalities.Craniocervical junction: Patent foramen magnum. No Chiari malformation.Vessels: Normal flow-voids in the arterie s and sinuses. Known small left supraclinoid ICA aneurysm is seen to better advantage on the MRI of 02/23/2019. Incidental findings: Nonspecific mild persistent inflammatory mucosal thickening right maxillary sinus. Previous inflammatory changes in the left maxillary sinus have resolved. IMPRESSION: 1.No significant changes from the prior brain MRI 03/03/2019.2.Mild supratentorial chronic microvascularischemic changes.3.Known small left supraclinoid ICA aneurysm which is better visualized on the intracranial MRA of 03/03/2019. Signed: Lamine Husseineport Verified Date/Time: 05/03/2019 10:00:48 Reading Location: [facility] Room [address] [place] [address] CBC W/PLT COUNT & AUTO [id number] 06:59:00 Test Item Value Reference Range Interpretation [...] (BEAKER) (test code = 2801) BASIC METABOLIC [id number] 06:03:00 Test Item Value Reference Range Interpretation [...] NOT APPLICABLE FOR DIALYSIS PATIEN TS. HEMOGLOBIN [id number] 08:52:00 Test Item Value Reference Range Interpretation Comments HEMOGLOBIN A1C (BEAKER) (test code = 5.8 % 4.3-6.1 368) LIPID [id number] 06:11:00 Test Item Value Reference Range Interpretation Comments TRIGLYCERIDES (BEAKER) (test code = 73 mg/dL 540) CHOLESTEROL (BEAKER) (test code = 111 mg/dL 631) HDL CHOLESTEROL (BEAKER) (test code 36 mg/dL = 976) LDL CHOLESTEROL CALCULATED (BEAKER) 60 mg/dL (test code = 633) Triglyceride Reference Range: Low Risk <150 Borderline 150-199 High Risk 200- 499 Very High Risk >=500Cholesterol Reference Range: Low Risk <200 Borderline 200-239 High Risk >240HDL Cholesterol Reference Range: Low Risk >=60 High Risk <40LDL Cholesterol Reference Range: Optimal <100 Near Optimal 100-129 Borderline 130-159 High 160-189 Very High >=190 FastingBASIC METABOLIC [id number] 06:11:00 Test Item Value Reference Range Interpretation [...] PATIEN TS. FastingCBC W/PLT COUNT & AUTO [id number] 05:06:00 Test Item Value Reference Range Interpretation [...] (test code = 2801) TSH/FREE T4 IF [id number] 19:14:00 Test Item Value Reference Range Interpretation Comments THYROID STIMULATING HORMONE 0.53 uIU/mL 0.35-4.94 (BEAKER) (test code = 772) VITAMIN B12 AND [id number] 19:14:00 Test Item Value Reference Range Interpretation Comments VITAMIN B12 (BEAKER) (test code = 660 pg/mL 213-816 774) FOLATE (BEAKER) (test code = 362) 6.9 ng/mL >=7.0 L BASIC METABOLIC [id number] 18:39:00 Test Item Value Reference Range Interpretation [...] FOR DIALYSIS PATIEN TS. MR, BRAIN, WITHOUT [id number] 16:16:00Reason for exam:->StrokeWhat is the patient's sedation [...] appropriate. There is mild degree of supratentorial whitematter T2 and FLAIR hyperintensity, most likely to reflect chronic microvascular ischemic change fora patient of this age. The sellar and [...] None available. TECHNIQUE: 2 D and 3-D hmhj-ws-iopmwk MRA images of the intra- and extracranial carotid and vertebral arterial circulations were obtained, from which maximal intensity projection 3-D reconstructions were created. FINDINGS: MRA neck: There is mild (approximately 20% by NASCET criteria) narrowing of the proximal left ICA just above the bulb. There issignificant stenosis identified in the right cervical carotid artery. No hemodynamically significantstenosis identified in the vertebral artery, flow is antegrade in both vertebral arteries. MRA venetie ira of Mendez: There is a inferiorly to the 2 mm outpouching arising from the supraclinoid left ICA, com patible with a small aneurysm. No evidence of hemodynamically significant stenosis, or major branch vessel occlusion. IMPRESSION: 1. Mild narrowing of the proximal left cervical ICA. 2. 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 Correlation with CTA or conventional angiogram can be considered if clinically appropriate. Signed: Regine Mooney MDReport Verified Date/Time: 03/03/2019 16:16:12 Reading Location: [address] Neuro Reading Room MR, MRA, BRAIN, WITHOUT [id number] 16:16:00Reason for exam:->Ischemic Stroke EvaluationFINAL REPORT MRI [...] appropriate. There is mild degree of supratentorial whitematter T2 and FLAIR hyperintensity, most likely to [...] None available. TECHNIQUE: 2 D and 3-D dpxl-ku-xligch MRA images of the intra- and extracranial carotid and vertebral arterial circulations were obtained, from which maximal intensity projection 3-D reconstructions were created. FINDINGS: MRA neck: There is mild (approximately 20% by NASCET criteria) narrowing of the proximal left ICA just above the bulb. There issignificant stenosis identified in the right cervical carotid artery. No hemodynamically significantstenosis identified in the vertebral artery, flow is antegrade in both vertebral arteries. MRA venetie ira of Mendez: There is a inferiorly to the 2 mm outpouching arising from the supraclinoid left ICA, compatible with a small aneurysm. No evidence of hemodynamically significant stenosis, or major branch vessel occlusion. IMPRESSION: 1. Mild narrowing of the proximal left cervical ICA. 2. A 2 mm aneurysmarising from the left supraclinoid ICA, follow-up is recommended. Correlation with CTA or conventional angiogram can be considered if clinically appropriate. Signed: Regine Mooney MDReport Verified Date/Time: 03/03/2019 16:16:12 Reading Location: [address] Neuro Reading Room MR, MRA, NECK, WITHOUT IV [id number] 16:16:00Reason for exam:->Ischemic Stroke EvaluationFINAL REPORT MRI [...] appropriate. There is mild degree of supratentorial whitematter T2 and FLAIR hyperintensity, most likely to reflect chronic microvascular ischemic change fora patient of this age. The sellar and [...] None available. TECHNIQUE: 2 D and 3-D atnf-df-oigbve MRA images of the intra- and extracranial carotid and vertebral arterial circulations were obtained, from which maximal intensity projection 3-D reconstructions were created. FINDINGS: MRA neck: There is mild (approximately 20% by NASCET criteria) narrowing of the proximal left ICA just above the bulb. There issignificant stenosis identified in the right cervical carotid artery. No hemodynamically significantstenosis identified in the vertebral artery, flow is antegrade in both vertebral arteries. MRA venetie ira of Mendez: There is a inferiorly to the 2 mm outpouching arising from the supraclinoid left ICA, com patible with a small aneurysm. No evidence of hemodynamically significant stenosis, or major branch vessel occlusion. IMPRESSION: 1. Mild narrowing of the proximal left cervical ICA. 2. A 2 mm aneurysmarising from the left supraclinoid ICA, follow-up is recommended. Correlation with CTA or conventional angiogram can be considered if clinically appropriate. Signed: Regine Mooney MDReport Verified Date/Time: 03/03/2019 16:16:12 Reading Location: [address] Neuro Reading Room LIPID PANEL 2019-03-03 04:08:00 Test Item Value Reference Range Interpretation Comments TRIGLYCERIDES (BEAKER) (test code = 62 mg/dL 540) CHOLESTEROL (BEAKER) (test code = 123 mg/dL 631) HDL CHOLESTEROL (BEAKER) (test code 40 mg/dL = 976) LDL CHOLESTEROL CALCULATED (BEAKER) 71 mg/dL (test code = 633) Triglyceride Reference Range: Low Risk <150 Borderline 150-199 High Risk 200- 499 Very High Risk >=500Cholesterol Reference Range: Low Risk <200 Borderline 200-239 High Risk >240HDL Cholesterol Reference Range: Low Risk >=60 High Risk <40LDL Cholesterol Reference Range: Optimal <100 Near Optimal 100-129 Borderline 130-159 High 160-189 Very High >=190 FastingBASIC METABOLIC [id number] 04:08:00 Test Item Value Reference Range Interpretation [...] I S NOT APPLICABLE FOR DIALYSIS PATIEN TSBrittny FastingCBC W/PLT COUNT & AUTO [id number] 03:54:00 Test Item Value Reference Range Interpretation [...] = 2801) CBC W/PLT COUNT & AUTO [id number] 20:55:00 Test Item Value Reference Range Interpretation [...] (BEAKER) (test code = 2801) BASIC METABOLIC [id number] 20:44:00 Test Item Value Reference Range Interpretation [...]
[2022-07-29 20:55] LABS: Urine Blood Negative (Negative); Urine Glucose Negative (Negative); Urine Protein Negative (Negative); Urine Specific Gravity <=1.005 (1.005-1.030); Urine pH 6.5 (5.0-7.0)
[2022-07-29 21:07] LABS: Absolute Lymphocytes (CBC) 2.8 K/uL (0.7-4.9); Hematocrit 40.4 % (39.6-49.0); Lymphocytes % 36.7 % (15.3-44.8); MCV 93.2 fL (80-100); MPV 9.3 fL (7.6-11.3); RBC Red Blood Cell Count 4.33 M/uL (4.33-5.43)
[2022-07-29 21:24] LABS: Albumin 3.8 g/dL (3.4-5.0); Bilirubin Total 0.5 mg/dL (0.2-1.0); Potassium 3.9 mmol/L (3.5-5.1); Protein, Total 7.2 g/dL (6.4-8.2)
--- NOTE | 2022-07-29 22:00 | RAD REPORT ---
EXAM DESCRIPTION: CTAbdomen Pelvis W Contrast - 07/29/2022 9:42 pm CLINICAL HISTORY: Abdominal pain. Abdominal pain, acute, nonlocalized COMPARISON: Angio Aorta For Dissection dated 03/19/2021 TECHNIQUE: Biphasic CT imaging of the abdomen and pelvis was performed with 100 ml non-ionic IV cont rast. All CT scans are performed using dose optimization technique as appropriate and may include automated exposure control or mA/KV adjustment according to patient size. FINDINGS: The lung bases are clear. The liver, spleen, pancreas, adrenal glands and kidneys are within normal limits. Bilateral benign re nal cysts. No bowel obstruction, free air, free fluid or abscess. Moderate to significant aortoiliac atheroscler osis. The appendix is normal. No evidence of significant lymphadenopathy. No suspicious bony findings. IMPRESSION: No acute intra-abdominal or pelvic finding.
--- NOTE | 2022-07-29 23:03 | EDPHYS ---
Physician Documentation [facility] Name: John Moreno Age: 66 yrs Sex: Male : 1955 Arrival Date: 07/29/2022 Time: 19:56 Bed 14 Private MD: ED Physician Xiang Plascencia HPI: 07/29 23:03 This 66 yrs old Male presents to ER via Ambulatory with complaints of ms3 Abdominal Pain. 23:03 66-year-old male with past medical history of coronary atherosclerosis, hyperlipidemia, ms3 hypertension presents for abdominal pain that is been ongoing for 2 months intermittently. Patient states his discomfort is a 6/10 and a generalized bloating sensation. Patient denies nausea, vomiting, diarrhea, fevers, chills. Patient denies alleviating or inciting factors.. Historical: - Allergies: 20:04 NKDA; ld1 - PMHx: 20:04 coronary atherosclerosis; Hyperlipidemia; Hypertension; ld1 - PSHx: 20:04 cardiac bypass; heart cath; stents in legs; ld1 - Immunization history:: Adult Immunizations up to date, Client reports having NOT received the Covid vaccine. - Social history:: Smoking status: Patient denies any tobacco usage or history of. Patient/guardian denies using alcohol. ROS: 23:03 Constitutional: Negative for fever, and chills. Eyes: Negative for injury, pain, ms3 redness, and discharge, ENT: Negative for injury, pain, and discharge, Neck: Negative for injury, pain, and swelling, Cardiovascular: Negative for chest pain, and palpitations. Respiratory: Negative for shortness of breath, cough, wheezing, and pleuritic chest pain. 23:03 Skin: Negative for injury, rash, and discoloration, Neuro: Negative for headache, weakness, numbness, tingling. 23:03 Abdomen/GI: Positive for abdominal pain, Negative for nausea, vomiting, and diarrhea. 23:03 All other systems are negative. Exam: 23:04 Constitutional: This is a well developed, well nourished patient who is awake, alert, ms3 and in no acute distress. Head/Face: Normocephalic, atraumatic. Neck: Trachea midline, no cervical lymphadenopathy. Supple, full range of motion without nuchal rigidity, or vertebral point tenderness. No Meningismus. Chest/axilla: Normal chest wall appearance and motion. Nontender with no deformity. Cardiovascular: Regular rate and rhythm with a normal S1 and S2. No gallops, murmurs, or rubs. Normal PMI, no JVD. No pulse deficits. Respiratory: Lungs have equal breath sounds bilaterally, clear to auscultation and percussion. No rales, rhonchi or wheezes noted. No increased work of breathing, no retractions or nasal flaring. Abdomen/GI: Soft, non-tender, with normal bowel sounds. No distension or tympany. No guarding or rebound. No evidence of tenderness throughout. Skin: Warm, dry with normal turgor. Normal color with no rashes, no lesions, and no evidence of cellulitis. MS/ Extremity: Pulses equal, no cyanosis. Neurovascular intact. Full, normal range of motion. Neuro: Awake and alert, GCS 15, oriented to person, place, time, and situation. Cranial nerves II-XII grossly intact. Motor strength 5/5 in all extremities. Sensory grossly intact. Cerebellar exam normal. Normal gait. Psych: Awake, alert, with orientation to person, place and time. Behavior, mood, and affect are within normal limits. Vital Signs: 20:02 BP 137 / 73; Pulse 80; Resp 18; Temp 97.3(TE); Pulse Ox 98% on R/A; Weight 78.47 kg; ld1 Height 5 ft. 4 in. (162.56 cm); Pain 6/10; 21:00 BP 116 / 69; Pulse 73; Resp 18; Pulse Ox 95% ; kb3 22:00 BP 118 / 72; Pulse 68; Resp 18; Pulse Ox 99% ; kb3 23:00 BP 106 / 84; Pulse 74; Resp 20; Pulse Ox 99% ; kb3 20:02 Body Mass Index 29.70 (78.47 kg, 162.56 cm) ld1 MDM: 20:38 Patient medically screened. ms3 23:04 Data reviewed: vital signs, nurses notes, lab test result(s), radiologic studies, CT ms3 scan, and as a result, I will discharge patient. Counseling: I had a detailed discussion with the patient and/or guardian regarding: the historical points, exam findings, and any diagnostic results supporting the discharge/admit diagnosis, lab results, radiology results, the need for outpatient follow up, to return to the emergency department if symptoms worsen or persist or if there are any questions or concerns that arise at home. ED course: Discussed labs, CT scan with patient and his . Patient's abdomen remains benign, patient is alert and oriented x4, in no apparent distress, nontoxic-appearing, ambulatory in emergency department. 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 Patient understands agrees with plan. All questions were answered. Return precautions discussed include worsening symptoms, or any other concerns.. 07/29 20:44 Order name: CBC with Diff; Complete Time: 22:55 ms3 07/29 20:44 Order name: CMP; Complete Time: 22:55 ms3 07/29 20:44 Order name: Lipase; Complete Time: 22:55 ms3 07/29 20:44 Order name: Urine Microscopic Only ms3 07/29 20:44 Order name: CT Abd/Pelvis - IV Contrast Only ms3 07/29 20:55 Order name: Urine Dipstick-Ancillary; Complete Time: 22:55 EDMS 07/29 20:44 Order name: IV Saline Lock; Complete Time: 21:10 ms3 07/29 20:44 Order name: Labs collected and sent; Complete Time: 21:10 ms3 07/29 20:44 Order name: Urine Dipstick-Ancillary (obtain specimen); Complete Time: 21:10 ms3 07/29 20:49 Order name: Abdomen ; Complete Time: 22:55 EDMS Administered Medications: No medications were administered Disposition Summary: 07/29/22 23:02 Discharge Ordered Location: Home ms3 Condition: Stable ms3 Diagnosis - Abdominal pain, unspecified ms3 - Anemia, unspecified ms3 Followup: ms3 - With: Private Physician - When: 2 - 3 days - Reason: Recheck today's complaints Discharge Instructions: - Discharge Summary Sheet ms3 - Abdominal Pain, Adult ms3 - Anemia ms3 Forms: - Medication Reconciliation Form ms3 - Thank You Letter ms3 - Antibiotic Education ms3 - Prescription Opioid Use ms3 Signatures: Dispatcher [employer] EDMS Xiang Plascencia DO DO ms3 Abida Ocampo RN RN ld1
--- NOTE | 2022-07-29 23:03 | ER ---
Nurse's Notes [facility] Name: John Moreno Age: 66 yrs Sex: Male : 1955 Arrival Date: 07/29/2022 Time: 19:56 Bed 14 Private MD: Diagnosis: Abdominal pain, unspecified;Anemia, unspecified Presentation: 07/29 20:02 Chief complaint: Patient states: C/O intermittent abdominal pain for the past 1-2 ld1 months. Denies N/V/D. Pt reports being on antibiotics for H pylori. Pt states he is scheduled for cholecystectomy on 08/16/22. Coronavirus screen: At this time, the client does not indicate any symptoms associated with coronavirus-19. Ebola Screen: No symptoms or risks identified at this time. Initial Sepsis Screen: Does the patient meet any 2 criteria? No. Patient's initial sepsis screen is negative. Does the patient have a suspected source of infection? No. Patient's initial sepsis screen is negative. Risk Assessment: Do you want to hurt yourself or someone else? Patient reports no desire to harm self or others. Onset of symptoms was July 29, 2022 at 20:04. 20:02 Method Of Arrival: Ambulatory ld1 20:02 Acuity: JEFFRY 3 ld1 Triage Assessment: 20:04 General: Appears in no apparent distress. uncomfortable, Behavior is calm, cooperative, ld1 appropriate for age. Pain: Complains of pain in abdomen Pain does not radiate. Pain currently is 8 out of 10 on a pain scale. Quality of pain is described as throbbing. EENT: No signs and/or symptoms were reported regarding the EENT system. Neuro: Level of Consciousness is awake, alert, obeys commands, Oriented to person, place, time, situation. Cardiovascular: Capillary refill < 3 seconds Patient's skin is warm and dry. Respiratory: Airway is patent Respiratory effort is even, unlabored. GI: Abdomen is round non-distended, Reports lower abdominal pain, upper abdominal pain. : No signs and/or symptoms were reported regarding the genitourinary system. Derm: No signs and/or symptoms reported regarding the dermatologic system. Musculoskeletal: No signs and/or symptoms reported regarding the musculoskeletal system. Historical: - Allergies: 20:04 NKDA; ld1 - PMHx: 20:04 coronary atherosclerosis; Hyperlipidemia; Hypertension; ld1 - PSHx: 20:04 cardiac bypass; heart cath; stents in legs; ld1 - Immunization history:: Adult Immunizations up to date, Client reports having NOT received the Covid vaccine. - Social history:: Smoking status: Patient denies any tobacco usage or history of. Patient/guardian denies using alcohol. Screenin:00 Abuse screen: Denies threats or abuse. Denies injuries from another. Nutritional kb3 screening: No deficits noted. Tuberculosis screening: No symptoms or risk factors identified. Fall Risk None identified. Assessment: 20:45 General: Appears in no apparent distress. comfortable, Behavior is calm, cooperative, kb3 Received care of pt from [facility]. Pt is AAO x4, reports diffuse abdominal pain x2 months. Pt had a full work up including CT and Hide-a-Scan about 1 month ago and is scheduled to have a cholecystectomy on 08/16. PT is here tonight to get "rechecked to make sure nothing else is wrong in his abdomen." Pt reports abdominal pain is intermittent and diffuse, denies N/V/D/C. States pain is similar to previous episodes of pain.. 20:45 Pain: Complains of pain in right upper quadrant and left upper quadrant Pain does not kb3 radiate. Pain currently is 7 out of 10 on a pain scale. Quality of pain is described as crampy, pressure, Pain began 2 months Is intermittent. GI: Bowel sounds present X 4 quads. Abd is soft Abdomen is tender to palpation in epigastric area, right upper quadrant and left upper quadrant Patient currently denies constipation, diarrhea, nausea, vomiting. 22:05 General: Pt reports abdominal pain is minimal at this time, comes and goes. Denies N/V. kb3 Updated regarding POC including awaiting CT report for disposition. Vital Signs: 20:02 BP 137 / 73; Pulse 80; Resp 18; Temp 97.3(TE); Pulse Ox 98% on R/A; Weight 78.47 kg; ld1 Height 5 ft. 4 in. (162.56 cm); Pain 6/10; 21:00 BP 116 / 69; Pulse 73; Resp 18; Pulse Ox 95% ; kb3 22:00 BP 118 / 72; Pulse 68; Resp 18; Pulse Ox 99% ; kb3 23:00 BP 106 / 84; Pulse 74; Resp 20; Pulse Ox 99% ; kb3 20:02 Body Mass Index 29.70 (78.47 kg, 162.56 cm) ld1 ED Course: 19:56 Patient arrived in ED. ag3 19:58 Xiang Plascencia DO is Attending Physician. ms3 20:04 Triage completed. ld1 20:04 Arm band placed on right wrist. ld1 20:42 Nishi Manjarrez, RN is Primary Nurse. kb3 20:45 No provider procedures requiring assistance completed. Inserted saline lock: 20 gauge kb3 in right antecubital area, using aseptic technique. Blood collected. 21:00 Patient has correct armband on for positive identification. Bed in low position. Call kb3 light in reach. Side rails up X2. Pulse ox on. NIBP on. 21:44 Abdomen In Process Unspecified. EDMS 23:11 IV discontinued, intact, bleeding controlled, No redness/swelling at site. kb3 Administered Medications: No medications were administered Medication: 21:00 VIS not applicable for this client. kb3 Outcome: 23:02 Discharge ordered by . ms3 23:11 Discharged to home ambulatory, with family. kb3 23:11 Condition: stable 23:11 Discharge instructions given to patient, family, Instructed on discharge instructions, follow up and referral plans. medication usage, Demonstrated understanding of instructions, follow-up care, medications. 23:12 Patient left the ED. kb3 Signatures: Dispatcher [employer] EDMS Allison Branch ag3 Xiang Plascencia DO DO ms3 Abida Ocampo RN RN ld1 Nishi Manjarrez, RN RN kb3 Corrections: (The following items were deleted from the chart) 20:07 20:02 Chief complaint: Patient states: C/O intermittent abdominal pain for the past 1-2 ld1 months. Denies N/V/D. ld1
[2022-07-31 14:38] VITALS: TEMP 97.3
[2022-07-31 14:42] VITALS: O2SAT 99
[2022-07-31 14:44] VITALS: BP 106/84
== END 2022-07-29 23:12 | disposition home or self-care (01) ==
LOC: ER 19:54
DX: R10.9 Unspecified abdominal pain (principal); D64.9 Anemia, unspecified; I10 Essential (primary) hypertension; Z95.1 Presence of aortocoronary bypass graft; Z95.5 Presence of coronary angioplasty implant and graft
CPT/HCPCS: 36415; 74177; 80053; 81003; 81015; 83690; 85025; 99284

== ENCOUNTER 2022-08-30 11:50 | Day surgery (SDC) | payer OTHER ==
[2022-08-30 11:11] LABS: Potassium 4.2 mmol/L (3.5-5.1)
[2022-08-30 11:12] LABS: SARS-CoV-2 Antigen Rapid Res Negative (Negative)
[2022-08-30] MEDS ORDERED: Ringers Lactate 1,000 ML IV ONE (12:31)
[2022-08-30] MEDS ORDERED: propofoL 200 MG/20 ML VIAL IV ONE ×2 (12:53→13:48)
[2022-08-30] MEDS ORDERED: KETAMINE HCL 500 MG/5 ML VIAL ONE (12:54)
[2022-08-30] MEDS ORDERED: MIDAZOLAM HCL 2 MG/2 ML INJ ONE ×2 (12:54→13:49)
[2022-08-30] MEDS ORDERED: dexAMETHasone 4 MG/ML VIAL ONE (12:54)
[2022-08-30] MEDS ORDERED: FENTANYL CITR 100 MCG/2 ML ONE ×2 (12:54→13:48)
[2022-08-30] MEDS ORDERED: LIDOCAINE 2% MPF 5 ML VIAL ONE ×2 (12:55→13:49)
[2022-08-30] MEDS ORDERED: KETOROLAC 30 MG/ML INJ ONE ×2 (12:55→14:17)
[2022-08-30] MEDS ORDERED: ONDANSETRON 4 MG/2 ML VIAL ONE ×2 (12:55→13:49)
--- NOTE | 2022-08-30 13:55 | EKG ---
Test Date: 2022-08-30 Test Time: 10:33:07 [employer] Fluxer: MARLO MEASUREMENT RESULTS: Intervals: Rate: 69 CA: 156 QRSD: 94 QT: 376 QTc: 402 [place]: P: 45 CA: 156 QRS: 52 T: 47 INTERPRETIVE STATEMENTS: Normal sinus rhythm Normal ECG Compared to ECG 05/07/2021 14:21:02 No significant changes Electronically Signed On 08-30-22 13:54:38 CDT by Christiano Miranda
[2022-08-30] MEDS: CEFAZOLIN SODIUM 1 GM/VIAL ONE ×2 (14:25→14:27)
[2022-08-30] MEDS ORDERED: NS 0.9% VIAL 10 ML ONE (14:27)
[2022-08-30] MEDS ORDERED: LIDOCAINE 1% W/EPI 1:100,000 30 ML VIAL ONE (14:32)
--- NOTE | 2022-08-30 14:49 | P.OP ---
Preoperative diagnosis: Perianal Skin Lesions x 2 Postoperative diagnosis: Perianal Skin Lesions x 2 Primary procedure: Excision of Perianal Skin Lesions x 2 Secondary procedure: Exam under anesthesia Anesthesia: GETA + Local Estimated blood loss: <1cc Specimen: Perianal Skin Lesions x 2 ( right and left) Findings: Perianal Skin Lesions x 2 Complications: None Transferred to: Recovery Room Condition: Good
[2022-08-30] MEDS ORDERED: BUPIVACAINE 0.25% PF 30 ML VIAL ONE (15:02)
[2022-08-30 15:09] VITALS: O2SAT 100
--- NOTE | 2022-08-30 16:08 | OP ---
Date of Procedure: 08/30/2022 Surgeon: Japsreet Dougherty MD, Preoperative Diagnosis: Perianal skin lesions x2. Postoperative Diagnosis: Perianal skin lesions x2. Procedures Performed: 1.An excision of perianal skin lesion x2. 2.Exam under anesthesia. Anesthesia: General endotracheal plus local with 1% lidocaine with epinephrine. Estimated Blood Loss: Less than 1 cc. Specimen: Perianal skin lesions x2, 1 on the right side, 1 on the left. Complications: None. Disposition: The patient was transferred to recovery room in good condition. Procedure In Detail: After informed consent was obtained, the patient was brought to the operating r oom, prepped and draped in the usual sterile fashion after adequate anesthesia was achieved. The pat ient remained in lithotomy position. I placed a small anoscope and sequentially increased the size o f the anoscopy to inspect the area of the rectum. The perianal and rectal areas had only small hemor rhoids, which did not appear to have any evidence of thrombosis or any other pathologic findings. Th ey did not appear to require any form of intervention at this time. I therefore withdrew the scope a t this point. I looked at the perianal skin and there were 2 areas of concern with some hypertrophic enlarged papillae and somewhat abnormal appearance with a nodularity to both the right and left silvio anal areas. I made a small elliptical incision for approximately 1 cm x 0.5 cm in the perianal skin with a 15 blade after appropriately anesthetizing with 1% lidocaine with epinephrine. I removed this with electrocautery just at the level of the deep dermal plane and sent it off for pathologic examin ation. I then cleansed the area and closed it on the left side initially with a 3-0 chromic suture a nd a sterile dressing placed over top. I then turned my attention to the right side. At this point in a similar fashion, the area was anesthetized with 1% lidocaine. An ellipse of abnormal appearing nodular skin was removed similarly 1 cm x 1 cm in the area down through subcutaneous tissues. Electr ocautery was used to remove the skin lesion to the deep dermal plane and this was sent off for pathol ogic examination. I then irrigated the area once again and closed with the same said 3-0 chromic sut ure and Surgicel placed over top. The patient tolerated the procedure well without evidence of compl ication and transferred to PACU in good condition. All counts were correct at the end of the case. RE/REJI Voice ID: [id number] Report ID: [id number]
[2022-08-30 16:14] VITALS: BP 119/68; TEMP 97.3
== END 2022-08-30 16:15 | disposition home or self-care (01) ==
LOC: OR 11:50
PROVIDERS: ATTEND Surgery
PROC: 0HB9XZZ Excision of Perineum Skin, External Approach (ICD-10-PCS; principal; 2022-08-30 12:45)
DX: L72.0 Epidermal cyst (principal); Z20.822 Contact with and (suspected) exposure to COVID-19; I10 Essential (primary) hypertension; E78.00 Pure hypercholesterolemia, unspecified
CPT/HCPCS: 93005; 80048; 36415; 88304; 87811; 46922; J2704; J2001; J2250; J3010; A4216; J7120; J2405; J0690; 88305; J1100

== ENCOUNTER 2023-01-19 17:53 | Observation (INO) | payer OTHER ==
--- OUTSIDE RECORDS SUMMARY | 2023-01-19 18:15 | XMS REPORT | Continuity of Care Document ---
:1955 Author Organization [facility] t Address [address] [facility] [address] [place] [address] Care Team Providers Name Role Phone Asked, No Pcp Primary Care Physician Unavailable Edilson Pickett Attending Clinician Unavailable Rj Henry Attending Clinician Unavailable COURTNEY CALDERON Attending Clinician Unavailable LADONNA JOYNER Attending Clinician Unavailable MARIUSZ JARRELL Attending Clinician Unavailable CATHLEEN ZAMBRANO Attending Clinician Unavailable PETE NICOLE Attending Clinician Unavailable ROSELINE LANDRY Attending Clinician Unavailable LUIZA HONEYCUTT Attending Clinician Unavailable Parag OGLESBY, Ruth Kaufman Attending Clinician GREG WHITE Attending Clinician Unavailable Aleksander Martinez Attending Clinician ARLEY ALEJANDRE JR. Attending Clinician Unavailable Mohan Dennison MD Attending Clinician Mookie Matthew Attending Clinician MOOKIE MATHTEW Attending Clinician Unavailable Pili Womack MD, Eloy Attending Clinician Carlos Valdivia Attending Clinician Rosa Tianjero MD Attending Clinician Unavailable Pete Nicole MD Attending Clinician Angelica Odom MD Attending Clinician ANGELICA ODOM Attending Clinician Unavailable Karen Vela MD Attending Clinician Todd Agudelo Attending Clinician ROSA TINAJERO Attending Clinician Unavailable CHUCKIE WHITE Attending Clinician Unavailable Gamaliel LOGAN, Jose Raul Newman Attending Clinician Roscoe Vidal MD Attending Clinician Erlinda Perera MD Attending Clinician MOHAN DENNISON Attending Clinician Unavailable Mariusz Jarrell MD Attending Clinician [phone] Chuckie White MD Attending Clinician ROSELINE LANDRY Attending Clinician Unavailable Roseline Landry NP Attending Clinician CHICO PARRISH Attending Clinician Unavailable MARIUSZ JARRELL Attending Clinician Unavailable STEVEN RUIZ Attending Clinician Unavailable Steven Perez Attending Clinician MOHAN DENNISON Attending Clinician Unavailable Khai Alvarado MD Attending Clinician CARLOS VALDIVIA Attending Clinician Unavailable Kalen Steiner MD Attending Clinician KATHY SWEENEY Attending Clinician Unavailable FALLON SOLIMAN Attending Clinician Unavailable COURTNEY CALDERON Admitting Clinician Unavailable LADONNA JOYNER Admitting Clinician Unavailable MARIUSZ JARRELL Admitting Clinician Unavailable DONNY MILLS Admitting Clinician Unavailable KATHY SWEENEY Admitting Clinician Unavailable FALLON SOLMIAN Admitting Clinician Unavailable Payers Payer Name Policy Type Policy Number Effective Date Expiration Date S [facility] MEDICARE PART A [id number] 2021 AND B 00:00:00 JANET [id number] 2019 [place] 00:00:00 MEDICARE PART A [id number] \T\ B - MEDICARE [place] [employer] [id number] [facility] SUPP JANET - [id number] [place] [id number] 2021 [facility] INSUR[facility] 00:00:00 - [facility] MEDICARE MB [id number] 2021 [facility] NOVITAS 00:00:00 - [facility] MEDICARE [id number] 2021 [facility] [place] 00:00:00 - [place] [id number] 2021 [facility] INSURANCE 00:00:00 - [place] [id number] 2021 [facility] INSURANCE 00:00:00 - [facility] MEDICARE [id number] 2021 [facility] NOVITAS 00:00:00 - [place] [id number] 2021 [facility] INSURANCE 00:00:00 - [facility] MEDICARE MB [id number] 2021 [facility] NOVITAS 00:00:00 - [facility] C1 [id number] 2021 [facility] INSURANCE 00:00:00 - [facility] MEDICARE MB [id number] 2021 [facility] NOVITAS 00:00:00 - [facility] MEDICARE MB [id number] 2021 [facility] NOVITAS 00:00:00 - [facility] C1 [id number] 2021 [facility] INSURANCE 00:00:00 - [facility] C1 [id number] [facility] INSURANCE - [facility] MEDICARE MB [id number] [facility]OV[facility] - [place] [id number] [facility] INSURANCE - [facility] MEDICARE MB [id number] [facility] NOVIT[facility] - [facility] Problems Condition Condition Condition Status Onset Resolution Last Treating Co mments Source Name Details Category Date Date Treatment Clinician Date LAPAROSCOP LAPAROSCO Diagnosis Active 2022-09-13 [place] IC PIC 07-25 05:15:00 l CHOLCYSTEC CHOLCYSTEC 00:00: Aden KUMAR /C JOSÉ /C 00 LIVER BIO LIVER BIO Active 07/25/2022 Jocelyn Campbell UNK UNK Diagnosis Active 2022-08-12 Mem oria Active 07-25 10:27:00 l 07/25/2022 00:00: Barrington Banks 00 Adrian DX: DX: Diagnosis Active 2022-06-24 Mem oria R14.0=ACUT R14.0=ACUT 06-14 10:12:00 l E ABDOMEN E ABDOMEN 00:00: Supriya hopkins K59.00=CON K59.00=CON 00 STIPA STIPA Active 06/14/2022 [facility] S/P CABG x S/P CABG x Disease Active [facility] 1 (Yumiko 1 (Yumiko 7-08 [facility] 05/13/21[facility] 05/13/21) 00:00: Medical 00 [place] Chest pain Chest pain Disease Active [facility]28 [facility] 00:[facility]: Medical 00 [place] CAD CAD Disease Active [facility] (coronary (coronary 6-28 [facility] artery artery 00:00: Medical disease) disease) 00 [place] Coronary Coronary Disease Active [facility] artery artery 5-18 [facility] disease of disease of 00:00: of [place] 00 Medicin artery of artery of e [place] heart 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 Abnormal Abnormal Disease Active [facility] findings findings 5-18 Colleg e on on 00:00: of diagnostic diagnostic 00 Me dicin imaging of imaging of e heart and heart and coronary coronary circulatio circulatio n n Orchitis Orchitis Disease Active [facility] r and and 03-03 [facility] epididymit epididymit 00:00: of is is 00 Medicin e Carotid Carotid Disease Active [facility] artery artery 3-28 College disease disease 00:00: of 00 Medicin e S/P S/P Disease Active [facility] angiogram angiogram 3-28 Mina ege of of 00:00: of extremity extremity 00 Medi aleksandra e PAD PAD Disease Active [facility] (periphera (periphera 3-05 Jackeline kes l artery l artery 00:00: Medica l disease) disease) 00 [place] PVD PVD Disease Active [facility] (periphera (periphera 2-01 Co llege l vascular l vascular 00:00: of disease) disease) 00 Medici n e Benign Benign Disease Active [facility] localized localized 1-27 Mina ege prostatic prostatic 00:00: of hyperplasi hyperplasi 00 Me dicin a with a with e lower lower urinary urinary tract tract symptoms symptoms (LUTS) (LUTS) Screening Screening Disease Active [facility] for viral for viral 6-18 Mina ege disease disease 00:00: of 00 Medicin e Chest pain Chest pain Disease Active [facility] 6-18 College 00:00: of 00 Medicin e Leg length Leg length Disease Active [facility] discrepanc discrepanc 3-18 Co llege y y 00:00: of 00 Medicin e Right hip Right hip Disease Active [facility]in pain pain 3-18 College 00:00: of 00 Medicin e Right leg Right leg Disease Active [facility] pain pain 3-18 College 00:00: of 00 Medicin e PFO PFO Disease Active 2018-11 [facility] (patent (patent 218 College foramen foramen 00:00: of ovale) ovale) 00 Medicin e Numbness Numbness Disease Active 2018-11 [facility] and and 2-18 College tingling tingling [...] Medical 00 Center 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[facility] 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 00:00: of n n 00 Medicin e Nodule of Nodule of Disease Active [facility] scrotum scrotum 2-28 College 00:00: of 00 Medicin e Bilateral Bilateral Problem Active 2022-11-12 Memoria stenosis stenosis 13:55:39 l of carotid of carotid He rmann arteries arteries Active Problem 11/12/2022 [facility] [place] OTHER OTHER Diagnosis Active 2022-09-13 Mem oria SPECIFIED SPECIFIED 05:15:00 l DISEASES DISEASES [place] n OF OF GALLBLADDE GALLSAMIRAADDE R R Active [facility] Arterioscl Arteriosc Problem Active 2022-11-12 Memoria erotic lerotic 13:55:39 l vascular vascular [place] n disease disease (disorder) (disorder) Active Problem 11/12/2022 Medical Group,[facility] Neuro,Samir Tilley [facility], [facility] [place] Gastroesop Gastroeso Problem Active 2022-11-12 Memoria hageal phageal 13:55:39 l reflux reflux Adrian disease disease (disorder) (disorder) Active Problem 11/12/2022 [facility] Group,[facility] her Neuro,[facility], [facility] [place] Headache Headache Problem Active 2022-11-12 Memoria (finding) (finding) 13:55:39 l Active Adrian Problem 11/12/2022 Medical Group,[facility] her Neuro,[facility], [facility], [facility] [place] Hyperlipid Hyperlipi Problem Active 2022-11-12 Memoria emia demia 13:55:39 l (disorder) (disorder) He rmann Active Problem 11/12/2022 Medical Group,[facility] her Neuro,[facility], [facility], [facility] [place] Hypertensi Hypertens Problem Active 2022-11-12 Memoria ve dustin 13:55:39 l disorder, disorder, Herm regine systemic systemic arterial arterial (disorder) (disorder) Active Problem 11/12/2022 Medical Group,[facility] her Neuro,[facility], [facility], [facility] [place] Lumbar Lumbar Problem Active 2022-11-12 Frederick enriqueta spondylosi spondylosi 13:55:39 l s s Aguila (disorder) (disorder) Active Problem 11/12/2022 Medical Group,[facility] her Neuro,[facility], [facility], [facility] [place] Numbness Numbness Problem Active 2022-11-12 Memoria of foot of foot 13:55:39 l (finding) (finding) Herm regine Active Problem 11/12/2022 Medical Group,[facility] her Neuro,[facility], [facility], [facility] [place] Pain in Pain in Problem Active 2022-11-12 Me moria lower limb lower limb 13:55:39 l (finding) (finding) Herm regine Active Problem 11/12/2022 Medical Group,[facility] her Neuro,[facility], [facility], [facility] [place] Paresthesi Paresthes Problem Active 2022-11-12 Memoria a ia 13:55:39 l (finding) (finding) Herm regine Active Problem 11/12/2022 Medical Group,[facility] her Neuro,[facility], [facility], [facility] [place] Peripheral Periphera Problem Active 2022-11-12 Memoria nerve l nerve 13:55:39 l disease disease Aguila (disorder) (disorder) Active Problem 11/12/2022 Medical Group,Misc her Neuro, [place],[facility], [facility] [place] R10.84 - R10.84 - Diagnosis Active 2021-12-23 Memoria GENERALIZE GENERALIZE 21:12:00 l D D Adrian ABDOMINAL ABDOMINAL PAIN R14. PAIN R14. Active [facility] [place] ABDOMINAL ABDOMINAL Diagnosis Active 2022-06-24 Memoria DISTENSION DISTENSION 10:12:00 l (GASEOUS) (GASEOUS) Herm regine Active [facility] CONSTIPATI CONSTIPAT Diagnosis Active 2022-06-24 Memoria ON, ION, 10:12:00 l UNSPECIFIE UNSPECIFIE He rmann D D Active [facility] FATTY FATTY Diagnosis Active 2022-09-13 Mem oria (CHANGE (CHANGE 05:15:00 l OF) LIVER, OF) LIVER, He rmann NOT NOT ELSEWHERE ELSEWHERE C C Active [facility] Adrian,[facility] No known No known Disease Metho di active active st problems problems Hospit a l [id number] Lumbar Problem Common radicular Spirit pain - [facility] [id number] Pain in Problem Comm on [id number] left Spirit shoulder - [facility] [id number] Low back Problem Comm on pain Spirit - [facility] [id number] Coronary Problem Comm on artery Spirit disease of - CHI bypass [facility] heart with Center stable angina pectoris [id number] Nonalcohol Problem Co mmon ic fatty Spirit liver - CHI disease [facility] [id number] Constipati Problem Com mon on, Spirit unspecifie - CHI d constipati [facility] [id number] Presence Problem Comm on of Spirit arterial - CHI stent [facility] [id number] Essential Problem Comm on (primary) Spirit hypertensi - CHI on [facility] [id number] Moderate Problem Commo n major Spirit depression - CHI , single [facility] [id number] GERD Problem Common without Spirit esophagiti - CHI s [facility] [id number] Primary Problem Common insomnia Spirit - [facility] [id number] BHAVANI Problem Common (generaliz Spirit ed anxiety - CHI disorder) [facility] [id number] Mixed Problem Common hyperlipid Spirit emia - [facility] [id number] Benign Problem Common prostatic Spirit hyperplasi - CHI a with [facility] urinary Medical tract Center symptoms, symptom details unspecifie d [id number] Burning Problem Common sensation Spirit - [facility] [id number] Scrotal Problem Common lesion Spirit - [facility] [id number] Lower Problem Common urinary Spirit tract - CHI symptoms (LUTS) [facility] [id number] Adult BMI Problem Com mon 30.0-30.9 Spirit kg/sq m - [facility] [id number] 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 osteoarthr Medica l itis type Center Full Complete Problem Common thickness tear of [facility] rotator left - [facility] cuff [facility] Medica l whether Center traumatic [id number] Nontraumat Problem C ommon [id number] ic Spirit complete - CHI tear of [facility] rotator Medical cuff Center [id number] Other Problem Common chronic Spirit pain - [facility] [id number] Nontraumat Problem Co mmon ic Spirit incomplete - CHI tear of [facility] rotator Medical cuff Center Acute Acute Disease Active [facility] postoperat postoperat Jackeline kes dustin pain dustin pain Medica l Center Atelectasi Atelectasi Disease Active C [facility] Allergies, Adverse Reactions, Alerts Allergy Allergy Status Severity Reaction(s) Onset Inactive Treating Comm ents Source Name Type Date Date Clinician NO KNOWN Allergy Active [facility] Family History Family Member Diagnosis Comments Start Date Stop Date Source Natural father Diabetes [facility] Natural father Stroke [facility] Natural mother Diabetes [facility] Social History Social Habit Start Date Stop Date Quantity Comments Source History of Tobacco [facility] - Use [facility] St kes [facility] History [facility] Alcohol Std Drinks Medica Center History SDUT [facility] Alcohol Binge Medical Tere ter Social History 2022-08-08 2022-08-08 [facility] Cisco norman 20:19:15 20:19:15 Exposure to 2022-04-17 2022-04-27 Not sure [facility]-CoV-2 (event) 00:00:00 14:08:00 [facility] Tobacco Comment 2022-03-29 2022-03-[address] [facility] 00:00:00 00:00:00 Medicine Alcohol intake 2021-07-07 2021-07-07 Ex-drinker [facility] 00:00:00 00:00:00 (finding) Medical Center History [facility] 2019-03-03 2019-03-[address] [facility] Alcohol Frequency 00:00:00 00:00:00 Medical Center History [facility] 2019-03-02 2019-03-02 quit [address] Jackeline kes Alcohol Comment 00:00:00 00:00:00 ago Medical C enter Cigarettes smoked 2019-03-02 2019-03-[address] [facility] current (pack per 00:00:00 00:00:00 Medical Center day) - Reported Cigarette 2019-03-02 2019-03-[address] [facility] pack-years 00:00:00 00:00:00 [facility] Center Tobacco use and 2019-03-02 2019-03-[address] [facility] kes exposure 00:00:00 00:00:00 [facility] Center Sex Assigned At 1955 [address] [facility] kes 00:00:00 00:00:00 [facility] Center Smoking Status Start Date Stop Date Source Tobacco smoking [facility] consumption unknown Tobacco smoking status 2022-11-09 17:18:53 2022-11-09 Radha Campbell 17:18:53 Never Smoker [facility] - [facility] Ce nter Current every day smoker 2017-09-25 00:00:00 Uni versity [facility] Medications Ordered Filled Start Stop Current Ordering Indication Dosage Frequency Signature Comments Components Source Medication Medication Date Date Medication? Clinician (SIG) Name Name Aspirin 81 Yes 81mg Take 81 mg [facility] MG tablet 3-13 by mouth Colleg e 09:22: once. of 12 Medicin e pantoprazol 3-0 Yes 20mg Take 1 [facility] e 3-13 Tablet by [facility] (PROTONIX) 09:22: mouth of 20 MG 12 daily. Medicin tablet e Aspirin 81 2022-0 Yes 81mg Take 81 mg [facility] MG tablet 3-09 by mouth Colleg e 09:19: once. of 09 Medicin e pantoprazol 3-0 Yes 20mg Take 1 [facility] or e 3-09 Tablet by [place] (PROTONIX) 09:19: mouth of 20 MG 09 daily. Medicin tablet e Aspirin 81 2022-0 Yes 81mg Take 81 mg [facility] MG tablet 1-31 by mouth Colleg e 15:14: once. of 57 Medicin e pantoprazol 2022-0 Yes 20mg Take 20 mg Gamaliel e 1-31 by mouth [facility] (PROTONIX) 15:14: daily. of 20 MG 57 Medicin tablet e mirtazapine 2022-0 Yes 30mg Take 1 [facility] (REMERON) 1-10 Tablet by Colle ge 30 MG 00:00: mouth of tablet 00 nightly. Medicin e mirtazapine 3-0 Yes 30mg Take 1 [facility] (REMERON) 1-10 Tablet by Colle ge 30 MG 00:00: mouth of tablet 00 nightly. Medicin e mirtazapine 3-0 Yes 30mg Take 1 [facility] (REMERON) 1-10 Tablet by Colle ge 30 MG 00:00: mouth of tablet 00 nightly. Medicin e Aspirin 81 1 Yes 81mg Take 81 mg [facility] MG tablet 2-29 by mouth Colleg e 14:22: once. of 47 Medicin e pantoprazol 2021-11 Yes 20mg Take 20 mg [facility] e 2-29 by mouth [place] (PROTONIX) 14:22: daily. of 20 MG 47 Medicin tablet e amlodipine 2021-11 Yes [id number] 5mg Take 1 [facility] (NORVASC) 5 2-29 Tablet by Col lege MG tablet 00:00: mouth of 00 daily. Medicin e losartan 2021-11 Yes [id number] 50mg Take 1 [facility] corin (COZAAR) 50 2-29 Tablet by Col lege MG tablet 00:00: mouth of 00 daily. Medicin e amlodipine 2021-11 Yes [id number] 5mg Take 1 [facility] (NORVASC) 5 2-29 Tablet by Col lege MG tablet 00:00: mouth of 00 daily. Medicin e losartan 2021-11 Yes [id number] 50mg Take 1 [facility] corin (COZAAR) 50 2-29 Tablet by Col lege MG tablet 00:00: mouth of 00 daily. Medicin e amlodipine 2021-11 Yes [id number] 5mg Take 1 [facility] (NORVASC) 5 2-29 Tablet by Col lege MG tablet 00:00: mouth of 00 daily. Medicin e losartan 2021-11 Yes [id number] 50mg Take 1 [facility] corin (COZAAR) 50 2-29 Tablet by Col lege MG tablet 00:00: mouth of 00 daily. Medicin e amlodipine 2021-11 Yes [id number] 5mg Take 1 [facility] (NORVASC) 5 2-29 Tablet by Col lege MG tablet 00:00: mouth of 00 daily. Medicin e losartan 2021-11 Yes [id number] 50mg Take 1 [facility] corin (COZAAR) 50 2-29 Tablet by Col lege MG tablet 00:00: mouth of 00 daily. Medicin e HYDROCORTIS 2021-11 Take by Ba virior ONE OR 12-0429 mouth. College 14:39: 00:00 of 29 :00 Medicin e pantoprazol 2021-11 Yes 20mg Take 20 mg [facility] e 12-04 by mouth [place] (PROTONIX) 14:39: daily. of 20 MG 28 Medicin tablet e Aspirin 81 2021-11 Yes 81mg Take 81 mg [facility]yl[facility] MG [facility] 12-04 [facility] of [facility] Medicin e Probiotic 2021-11 Yes PO, Daily, Me moria Formula 0-03 0 l 20:18: Refill(s) Probiotic 2021-11 Yes PO, Daily, Me moria Formula 0-03 0 l 20:18: Refill(s) Probiotic 2021-11 Yes PO, Daily, Me moria Formula 0-03 0 l 20:18: Refill(s) Probiotic 2021-11 Yes PO, Daily, Me moria Formula 0-03 0 l 20:18: Refill(s) Probiotic 2021-11 Yes PO, Daily, Me moria Formula 0-03 0 l 20:18: Refill(s) Probiotic 2021-11 Yes PO, Daily, Me moria Formula 0-03 0 l 20:18: Refill(s) Probiotic 2021-11 Yes PO, Daily, Me moria Formula 0-03 0 l 20:18: Refill(s) Probiotic 2021-11 Yes PO, Daily, Me moria Formula 0-03 0 l 20:18: Refill(s) Probiotic 2021-11 Yes PO, Daily, Me moria Formula 0-03 0 l 20:18: Refill(s) Probiotic 2021-11 Yes PO, Daily, Me moria Formula 0-03 0 l 20:18: Refill(s) Probiotic 2021-11 Yes PO, Daily, Me moria Formula 0-03 0 l 20:18: Refill(s) Probiotic 2021-11 Yes PO, Daily, Me moria Formula 0-03 0 l 20:18: Refill(s) Aspirin 81 Yes Gamaliel MG tablet 07-27 [facility] 09:58: of 40 Medicin e pantoprazol Yes 20mg Take 20 mg [facility] e 07-27 by mouth [facility] (PROTONIX) 09:58: daily. of 20 MG 40 Medicin tablet e HYDROCORTIS Yes Take by [facility] OR 07-27 mouth. [facility] 09:57: of 13 Medicin e hydrocortis Yes [id number] 25mg Place 25 [facility] 9- mg [facility] (ANUSOL-HC) 00:00: rectally of 25 MG 00 every 12 Medicin suppository hours. e Hydrocortis Yes [id number] Apply to [facility] 07-27 affected [facility] Perianal, 00:00: to of 2.5 % CREA 00 affected Medic in area twice e a day until hemorrhoid improves. Hydrocortis Yes [id number] Apply to [facility] 07-27 affected [facility] Perianal, 00:00: to of 2.5 % CREA 00 affected Medic in area twice e a day until hemorrhoid improves. Hydrocortis Yes [id number] Apply to [facility], 07-27 affected [facility] Perianal, 00:00: to of 2.5 % CREA 00 affected Medic in area twice e a day until hemorrhoid improves. Hydrocortis Yes [id number] Apply to [facility] 07-27 affected [facility] Perianal, 00:00: to of 2.5 % CREA 00 affected Medic in area twice e a day until hemorrhoid improves. Hydrocortis Yes [id number] [facility], [facility] of 2.5 % CREA 00 affected Medic in area twice e a day until hemorrhoid improves. Hydrocortis 2022- No [id number] Apply to [facility], 07-27 03-13 affected [facility], 00:00: 00:00 to of 2.5 % CREA 00 :00 affected Medic in area twice e a day until hemorrhoid improves. hydrocortis 2021- No [id number] 25mg Place 25 [facility] 07-27 11-29 mg [facility] (ANUSOL-HC) 00:00: 00:00 rectally o f 25 MG 00 :00 every 12 Medicin suppository hours. e clarithromy Yes TAKE 1 [facility] aleksandra 9-12 TABLET BY [facility] (BIAXIN) 00:00: MOUTH of 500 MG 00 TWICE A Medicin tablet DAY e amoxicillin Yes TAKE 2 [facility] or (AMOXIL) 9-12 CAPSULES [facility] 500 mg 00:00: BY MOUTH of capsule 00 TWICE A Medicin DAY e clarithromy 2021- No TAKE 1 [facility] corin aleksandra -10 16- TABLET BY [facility] (BIAXIN) 00:00: 00:00 MOUTH of 500 MG 00 :00 TWICE A Medicin tablet DAY e amoxicillin 2021- No TAKE 2 [facility] corin (AMOXIL) 07-18- CAPSULES [facility] 500 mg 00:00: 00:00 BY MOUTH of capsule 00 :00 TWICE A Medicin DAY e tizanidine Yes [id number] TAKE 1 Gamaliel (ZANAFLEX) 9-08 TABLET BY Mina ege 2 MG tablet 00:00: MOUTH of 00 THREE Medicin TIMES A e DAY NEEDED FOR PAIN tizanidine 2021- No [id number] TAKE 1 [facility] [facility] (ZANAFLEX) 07-14 11-29 TABLET BY [facility]ge 2 MG tablet 00:00: 00:00 MOUTH of 00 :00 THREE Medicin TIMES A e DAY NEEDED FOR PAIN PREGABALIN No 50 50MG CAP 07-12 00:00: 00 Aspirin 81 0 Yes [facility] MG tablet 06-30 [facility] 09:27: of 20 Medicin e pantoprazol Yes 20mg Take 20 mg [facility] e -25 by mouth [facility] (PROTONIX) 09:27: daily. of 20 MG 20 Medicin tablet e methocarbam 2021- No [id number] 500mg Take 1 [facility] ol 06-30 Tablet by [facility] (ROBAXIN) 00:00: 00:00 mouth 2 of 500 MG 00 :00 times Medicin tablet daily as e needed (back pain). Topamax 25 No 25 mg = 1 [facility] mg oral 8-23 tab, PO, l tablet 23:16: Bedtime, # Francesca nn 00 90 tab, 1 Refill(s), Pharmacy: [facility] #[id number], 160.02, cm, 06/02/22 14:39:00 CDT, Height, 81.818, kg, 06/02/22 14:39:00 CDT, Weight Topamax 25 No 25 mg = 1 [facility] mg oral 8-23 tab, PO, l tablet 23:16: Bedtime, # Francesca nn 00 90 tab, 1 Refill(s), Pharmacy: [facility] #[id number], 160.02, cm, 06/02/22 14:39:00 CDT, Height, 81.818, kg, 06/02/22 14:39:00 CDT, Weight Topamax 25 0 No 25 mg = 1 [facility] mg oral 8-23 tab, PO, l tablet 23:16: Bedtime, # Francesca nn 00 90 tab, 1 Refill(s), Pharmacy: [facility] #[id number], 160.02, cm, 06/02/22 14:39:00 CDT, Height, 81.818, kg, 06/02/22 14:39:00 CDT, Weight Topamax 25 2021-0 No 25 mg = 1 [facility] mg oral 8-23 tab, PO, l tablet 23:16: Bedtime, # Francesca nn 00 90 tab, 1 Refill(s), Pharmacy: [facility] #[id number], 160.02, cm, 06/02/22 14:39:00 CDT, Height, 81.818, kg, 06/02/22 14:39:00 CDT, Weight Topamax 25 2021-0 No 25 mg = 1 [facility] mg oral 8-23 tab, PO, l tablet 23:16: Bedtime, # Francesca nn 00 90 tab, 1 Refill(s), Pharmacy: [facility] #[id number], 160.02, cm, 06/02/22 14:39:00 CDT, Height, 81.818, kg, 06/02/22 14:39:00 CDT, Weight Topamax 25 2021-0 No 25 mg = 1 [facility] mg oral 8-23 tab, PO, l tablet 23:16: Bedtime, # Francesca nn 00 90 tab, 1 Refill(s), Pharmacy: [facility] #[id number], 160.02, cm, 06/02/22 14:39:00 CDT, Height, 81.818, kg, 06/02/22 14:39:00 CDT, Weight Topamax 25 2021-0 No 25 mg = 1 [facility] mg oral 8-23 tab, PO, l tablet 23:16: Bedtime, # Francesca nn 00 90 tab, 1 Refill(s), Pharmacy: [facility] #[id number], 160.02, cm, 06/02/22 14:39:00 CDT, Height, 81.818, kg, 06/02/22 14:39:00 CDT, Weight Topamax 25 2-0 No 25 mg = 1 [facility] mg oral 8-23 tab, PO, l tablet 23:16: Bedtime, # Francesca nn 00 90 tab, 1 Refill(s), Pharmacy: [facility] #[id number], 160.02, cm, 06/02/22 14:39:00 CDT, Height, 81.818, kg, 06/02/22 14:39:00 CDT, Weight Topamax 25 2-0 No 25 mg = 1 [facility] mg oral 8-23 tab, PO, l tablet 23:16: Bedtime, # Francesca nn 00 90 tab, 1 Refill(s), Pharmacy: [facility] #[id number], 160.02, cm, 06/02/22 14:39:00 CDT, Height, 81.818, kg, 06/02/22 14:39:00 CDT, Weight Topamax 25 2021-0 No 25 mg = 1 [facility] mg oral 8-23 tab, PO, l tablet 23:16: Bedtime, # Francesca nn 00 90 tab, 1 Refill(s), Pharmacy: [facility] #[id number], 160.02, cm, 06/02/22 14:39:00 CDT, Height, 81.818, kg, 06/02/22 14:39:00 CDT, Weight Topamax 25 2021-0 No 25 mg = 1 [facility] mg oral 8-23 tab, PO, l tablet 23:16: Bedtime, # Francesca nn 00 90 tab, 1 Refill(s), Pharmacy: [facility] #[id number], 160.02, cm, 06/02/22 14:39:00 CDT, Height, 81.818, kg, 06/02/22 14:39:00 CDT, Weight Topamax 25 2021-0 No 25 mg = 1 [facility] mg oral 8-23 tab, PO, l tablet 23:16: Bedtime, # Francesca nn 00 90 tab, 1 Refill(s), Pharmacy: [facility] #[id number], 160.02, cm, 06/02/22 14:39:00 CDT, Height, 81.818, kg, 06/02/22 14:39:00 CDT, Weight Topamax 25 2-0 No 25 mg = 1 [facility] mg oral 8-23 tab, PO, l tablet 23:16: Bedtime, # Francesca nn 00 90 tab, 1 Refill(s), Pharmacy: [facility] #[id number], 160.02, cm, 06/02/22 14:39:00 CDT, Height, 81.818, kg, 06/02/22 14:39:00 CDT, Weight Topamax 25 2022-0 No 25 mg = 1 [facility] mg oral 8-23 tab, PO, l tablet 15:36: Bedtime, X Francesca nn 30 day, # 30 tab, 2 Refill(s), Pharmacy: [facility] #[id number], 160.02, cm, 06/02/22 14:39:00 CDT, Height, 81.818, kg, 06/02/22 14:39:00 CDT, Weight Topamax 25 2022-0 No 25 mg = 1 [facility] mg oral 8-23 tab, PO, l tablet 15:36: Bedtime, X Francesca nn 30 day, # 30 tab, 2 Refill(s), Pharmacy: [facility] #[id number], 160.02, cm, 06/02/22 14:39:00 CDT, Height, 81.818, kg, 06/02/22 14:39:00 CDT, Weight Topamax 25 2-0 No 25 mg = 1 [facility] mg oral 8-23 tab, PO, l tablet 15:36: Bedtime, X Francesca nn 30 day, # 30 tab, 2 Refill(s), Pharmacy: [facility] #[id number], 160.02, cm, 06/02/22 14:39:00 CDT, Height, 81.818, kg, 06/02/22 14:39:00 CDT, Weight Topamax 25 2022-0 No 25 mg = 1 [facility] mg oral 8-23 tab, PO, l tablet 15:36: Bedtime, X Francesca nn 30 day, # 30 tab, 2 Refill(s), Pharmacy: [facility] #[id number], 160.02, cm, 06/02/22 14:39:00 CDT, Height, 81.818, kg, 06/02/22 14:39:00 CDT, Weight Topamax 25 2022-0 No 25 mg = 1 [facility] mg oral 8-23 tab, PO, l tablet 15:36: Bedtime, X Francesca nn 30 day, # 30 tab, 2 Refill(s), Pharmacy: [facility] #[id number], 160.02, cm, 06/02/22 14:39:00 CDT, Height, 81.818, kg, 06/02/22 14:39:00 CDT, Weight Topamax 25 2022-0 No 25 mg = 1 [facility] mg oral 8-23 tab, PO, l tablet 15:36: Bedtime, X Francesca nn 30 day, # 30 tab, 2 Refill(s), Pharmacy: [facility] #[id number], 160.02, cm, 06/02/22 14:39:00 CDT, Height, 81.818, kg, 06/02/22 14:39:00 CDT, Weight Topamax 25 2022-0 No 25 mg = 1 [facility] mg oral 8-23 tab, PO, l tablet 15:36: Bedtime, X Francesca nn 30 day, # 30 tab, 2 Refill(s), Pharmacy: [facility] #[id number], 160.02, cm, 06/02/22 14:39:00 CDT, Height, 81.818, kg, 06/02/22 14:39:00 CDT, Weight Topamax 25 2022-0 No 25 mg = 1 [facility] mg oral 8-23 tab, PO, l tablet 15:36: Bedtime, X Francesca nn 30 day, # 30 tab, 2 Refill(s), Pharmacy: [facility] #[id number], 160.02, cm, 06/02/22 14:39:00 CDT, Height, 81.818, kg, 06/02/22 14:39:00 CDT, Weight Topamax 25 2022-0 No 25 mg = 1 [facility] mg oral 8-23 tab, PO, l tablet 15:36: Bedtime, X Francesca nn 30 day, # 30 tab, 2 Refill(s), Pharmacy: [facility] cy #[id number], 160.02, cm, 06/02/22 14:39:00 CDT, Height, 81.818, kg, 06/02/22 14:39:00 CDT, Weight Topamax 25 2022-0 No 25 mg = 1 [facility] mg oral 8-23 tab, PO, l tablet 15:36: Bedtime, X Francesca nn 30 day, # 30 tab, 2 Refill(s), Pharmacy: [facility] #[id number], 160.02, cm, 06/02/22 14:39:00 CDT, Height, 81.818, kg, 06/02/22 14:39:00 CDT, Weight Topamax 25 2021-0 No 25 mg = 1 [facility] mg oral 8-23 tab, PO, l tablet 15:36: Bedtime, X Francesca nn 30 day, # 30 tab, 2 Refill(s), Pharmacy: [facility] #[id number], 160.02, cm, 06/02/22 14:39:00 CDT, Height, 81.818, kg, 06/02/22 14:39:00 CDT, Weight Topamax 25 2021-0 No 25 mg = 1 [facility] mg oral 8-23 tab, PO, l tablet 15:36: Bedtime, X Francesca nn 30 day, # 30 tab, 2 Refill(s), Pharmacy: [facility] #[id number], 160.02, cm, 06/02/22 14:39:00 CDT, Height, 81.818, kg, 06/02/22 14:39:00 CDT, Weight Topamax 25 2021-0 No 25 mg = 1 [facility] mg oral 8-23 tab, PO, l tablet 15:36: Bedtime, X Francesca nn 30 day, # 30 tab, 2 Refill(s), Pharmacy: [email or web address] #[id number], 160.02, cm, 06/02/22 14:39:00 CDT, Height, 81.818, kg, 06/02/22 14:39:00 CDT, Weight topiramate 2021-0 Yes [facility] (TOPAMAX) 06-28 College 25 MG 00:00: of tablet 00 Medicin e topiramate 0 Yes [facility] (TOPAMAX) 06-28 [facility] 25 MG 00:00: of tablet 00 Medicin e topiramate 0 2021- No [facility] (TOPAMAX) 06-28 [facility] 25 MG 00:00: 00:00 of tablet 00 :00 Medicin e Aspirin 81 2021-0 Yes [facility] MG tablet - College 09:10: of 48 Medicin e pantoprazol 2021-0 Yes 20mg Take 20 mg [facility] e 8-05 by mouth [facility] (PROTONIX) 09:10: daily. of 20 MG 48 Medicin tablet e Aspirin 81 2021-0 Yes [facility] MG tablet 05-17 College 09:33: of 22 Medicin e pantoprazol 2021-0 Yes 20mg Take 20 mg [facility] e -12 by mouth [employer] (PROTONIX) 09:33: daily. of 20 MG 22 Medicin tablet e Aspirin 81 2021-0 Yes [facility] MG tablet 05-17 [facility] 09:33: of 22 Medicin e pantoprazol 2021-0 Yes 20mg Take 20 mg [facility] e -12 by mouth [facility] (PROTONIX) 09:33: daily. of 20 MG 22 Medicin tablet e pregabalin 2021-0 Yes 1 tab bid [facility] (LYRICA) 50 -12 [facility] MG capsule 00:00: of 00 Medicin e pregabalin 2021-0 2- No 1 tab bid [facility] (LYRICA) 50 - 08-25 [facility] MG capsule 00:00: 00:00 of 00 :00 Medicin e Aspirin 81 2021-0 Yes [facility] MG tablet 05-06 College 10:04: of 06 Medicin e pantoprazol 2021-0 Yes 20mg Take 20 mg [facility] e 05-06 by mouth [facility] (PROTONIX) 10:04: daily. of 20 MG 06 Medicin tablet e methylPREDN 2021-0 2021- No Take as [facility] ISolone 4 05-06 07-12 directed [facility]le [facility] MG TBPK 00:00: 00:00 to of 00 :00 completion Medicin e Aspirin 81 2021-0 Yes [facility] MG tablet 05-04 College 15:01: of 34 Medicin e pantoprazol 2021-0 Yes 20mg Take 20 mg [facility] e 6-29 by mouth [facility] (PROTONIX) 15:01: daily. of 20 MG 34 Medicin tablet e atorvastati 2021-0 Yes [id number] 40mg Take 1 [facility] n (LIPITOR) 6-29 Tablet by [facility] 40 MG 00:00: mouth of tablet 00 daily. Medicin e amlodipine 2021-0 Yes [id number] TAKE 1 [facility] (NORVASC) 6-29 TABLET BY [facility]le [facility] 10 MG 00:00: MOUTH of tablet 00 EVERY DAY Medicin e metoprolol 2021-0 Yes [id number] TAKE 1 [facility] (TOPROL-XL) 6-29 TABLET BY [facility] 25 MG XL 00:00: MOUTH of tablet 00 EVERY DAY Medicin FOR 90 e DAYS losartan 2021-0 Yes [id number] TAKE 1 [facility] (COZAAR) 6-29 TABLET BY [facility] e 100 MG 00:00: MOUTH of tablet 00 EVERY DAY Medicin e atorvastati 2021-0 Yes [id number] 40mg Take 1 [facility] n (LIPITOR) 6-29 Tablet by [facility] 40 MG 00:00: mouth of tablet 00 daily. Medicin e amlodipine 2021-0 Yes [id number] TAKE 1 [facility] (NORVASC) 6-29 TABLET BY [facility] 10 MG 00:00: MOUTH of tablet 00 EVERY DAY Medicin e metoprolol 2021-0 Yes [id number] TAKE 1 [facility] (TOPROL-XL) 6-29 TABLET BY [facility] 25 MG XL 00:00: MOUTH of tablet 00 EVERY DAY Medicin FOR 90 e DAYS losartan 2021-0 Yes [id number] TAKE 1 [facility] (COZAAR) 6-29 TABLET BY [facility] e 100 MG 00:00: MOUTH of tablet 00 EVERY DAY Medicin e atorvastati 2021-0 Yes [id number] 40mg Take 1 [facility] n (LIPITOR) 6-29 Tablet by [facility] 40 MG 00:00: mouth of tablet 00 daily. Medicin e amlodipine 2021-0 Yes [id number] TAKE 1 [facility] (NORVASC) 6-29 TABLET BY [facility] 10 MG 00:00: MOUTH of tablet 00 EVERY DAY Medicin e metoprolol 2021-0 Yes [id number] TAKE 1 [facility] (TOPROL-XL) 6-29 TABLET BY [facility] 25 MG XL 00:00: MOUTH of tablet 00 EVERY DAY Medicin FOR 90 e DAYS losartan 2021-0 Yes [id number] TAKE 1 [facility] (COZAAR) 6-29 TABLET BY [facility] e 100 MG 00:00: MOUTH of tablet 00 EVERY DAY Medicin e atorvastati 2021-0 Yes [id number] 40mg Take 1 [facility] (LIPITOR) 6-29 Tablet by [facility] 40 MG 00:00: mouth of tablet 00 daily. Medicin e amlodipine 2021-0 Yes [id number] TAKE 1 [facility] (NORVASC) 6-29 TABLET BY [facility] 10 MG 00:00: MOUTH of tablet 00 EVERY DAY Medicin e metoprolol 2021-0 Yes [id number] TAKE 1 [facility] (TOPROL-XL) 6-29 TABLET BY [facility] 25 MG XL 00:00: MOUTH of tablet 00 EVERY DAY Medicin FOR 90 e DAYS losartan 2021-0 Yes [id number] TAKE 1 [facility] (COZAAR) 6-29 TABLET BY [facility] e 100 MG 00:00: MOUTH of tablet 00 EVERY DAY Medicin e atorvastati 2021-0 Yes [id number] 40mg Take 1 [facility] n (LIPITOR) 6-29 Tablet by [facility] 40 MG 00:00: mouth of tablet 00 daily. Medicin e amlodipine 2021-0 Yes [id number] TAKE 1 [facility] (NORVASC) 6-29 TABLET BY [facility] 10 MG 00:00: MOUTH of tablet 00 EVERY DAY Medicin e metoprolol 2021-0 Yes [id number] TAKE 1 [facility] (TOPROL-XL) 6-29 TABLET BY [facility] 25 MG XL 00:00: MOUTH of tablet 00 EVERY DAY Medicin FOR 90 e DAYS losartan 2021-0 Yes [id number] TAKE 1 [facility] (COZAAR) 6-29 TABLET BY [facility] e 100 MG 00:00: MOUTH of tablet 00 EVERY DAY Medicin e atorvastati 2021-0 Yes [id number] 40mg Take 1 [facility] n (LIPITOR) 6-29 Tablet by [facility] 40 MG 00:00: mouth of tablet 00 daily. Medicin e amlodipine 2021-0 Yes [id number] TAKE 1 [facility] (NORVASC) 6-29 TABLET BY [facility]le [facility] 10 MG 00:00: MOUTH of tablet 00 EVERY DAY Medicin e metoprolol 2021-0 Yes [id number] TAKE 1 [facility] (TOPROL-XL) 6-29 TABLET BY [facility] 25 MG XL 00:00: MOUTH of tablet 00 EVERY DAY Medicin FOR 90 e DAYS losartan 2021-0 Yes [id number] TAKE 1 [facility] (COZAAR) 6-29 TABLET BY [facility] e 100 MG 00:00: MOUTH of tablet 00 EVERY DAY Medicin e atorvastati 2021-0 Yes [id number] 40mg Take 1 [facility] n (LIPITOR) 6-29 Tablet by [facility] 40 MG 00:00: mouth of tablet 00 daily. Medicin e amlodipine 2021-0 Yes [id number] TAKE 1 [facility] (NORVASC) 6-29 TABLET BY Colle [facility] 10 MG 00:00: MOUTH of tablet 00 EVERY DAY Medicin e metoprolol 2021-0 Yes [id number] TAKE 1 [facility] (TOPROL-XL) 6-29 TABLET BY [facility] 25 MG XL 00:00: MOUTH of tablet 00 EVERY DAY Medicin FOR 90 e DAYS losartan 2021-0 Yes [id number] TAKE 1 [facility] (COZAAR) 6-29 TABLET BY [facility] 100 MG 00:00: MOUTH of tablet 00 EVERY DAY Medicin e atorvastati 2021-0 Yes [id number] 40mg Take 1 [facility] n (LIPITOR) 6-29 Tablet by [facility] 40 MG 00:00: mouth of tablet 00 daily. Medicin e amlodipine 2021-0 Yes [id number] TAKE 1 [facility] (NORVASC) 6-29 TABLET BY [facility] 10 MG 00:00: MOUTH of tablet 00 EVERY DAY Medicin e metoprolol 2021-0 Yes [id number] TAKE 1 [facility] (TOPROL-XL) 6-29 TABLET BY [facility] 25 MG XL 00:00: MOUTH of tablet 00 EVERY DAY Medicin FOR 90 e DAYS losartan 2021-0 Yes [id number] TAKE 1 [facility] (COZAAR) 6-29 TABLET BY [facility] e 100 MG 00:00: MOUTH of tablet 00 EVERY DAY Medicin e atorvastati 2021-0 Yes [id number] 40mg Take 1 [facility] n (LIPITOR) 6-29 Tablet by [facility] 40 MG 00:00: mouth of tablet 00 daily. Medicin e metoprolol 2021-0 Yes [id number] TAKE 1 [facility] (TOPROL-XL) 6-29 TABLET BY [facility] 25 MG XL 00:00: MOUTH of tablet 00 EVERY DAY Medicin FOR 90 e DAYS atorvastati 2021-0 Yes [id number] 40mg Take 1 [facility] n (LIPITOR) 6-29 Tablet by [facility] 40 MG 00:00: mouth of tablet 00 daily. Medicin e metoprolol 0 Yes [id number] TAKE 1 [facility] (TOPROL-XL) 6-29 TABLET BY [facility] 25 MG XL 00:00: MOUTH of tablet 00 EVERY DAY Medicin FOR 90 e DAYS atorvastati 0 Yes [id number] 40mg Take 1 [facility] (LIPITOR) 6-29 Tablet by [facility] 40 MG 00:00: mouth of tablet 00 daily. Medicin e metoprolol 0 Yes [id number] TAKE 1 [facility] (TOPROL-XL) 6-29 TABLET BY [facility] 25 MG XL 00:00: MOUTH of tablet 00 EVERY DAY Medicin FOR 90 e DAYS atorvastati 0 Yes [id number] 40mg Take 1 [facility] (LIPITOR) 6-29 Tablet by [facility] 40 MG 00:00: mouth of tablet 00 daily. Medicin e metoprolol Yes [id number] TAKE 1 [facility] (TOPROL-XL) 6-29 TABLET BY [facility] 25 MG XL 00:00: MOUTH of tablet 00 EVERY DAY Medicin FOR 90 e DAYS amlodipine 2021-0 2021- No [id number] TAKE 1 [facility] (NORVASC) 6-29 12-29 TABLET BY [facility] 10 MG 00:00: 00:00 MOUTH of tablet 00 :00 EVERY DAY Medicin e losartan 2021-0 2021- No [id number] TAKE 1 [facility] (COZAAR) 6-29 -29 TABLET BY Colle ge 100 MG 00:00: 00:00 MOUTH of tablet 00 :00 EVERY DAY Medicin e losartan 2021-0 2021- No [id number] TAKE 1 [facility] (COZAAR) 6-29 06-29 TABLET BY [facility] 100 MG 00:00: 00:00 MOUTH of tablet 00 :00 EVERY DAY Medicin e pregabalin 0 Yes TAKE 1 [facility] 75 mg oral 6-16 CAPSULE BY l capsule 21:18: MOUTH [facility] 00 TWICE A DAY clonazePAM 2021-0 Yes TAKE 1 [facility] 0.5 mg oral 6-16 TABLET BY l tablet 21:18: MOUTH [facility] 00 EVERY DAY NEEDED predniSONE 2022-0 Yes TAKE 1 [facility] 20 mg oral 6-16 TABLET BY l tablet 21:18: MOUTH [facility] 00 EVERY DAY FOR 5 DAYS pregabalin 2021-0 Yes TAKE 1 [facility] 75 mg oral 6-16 CAPSULE BY l capsule 21:18: MOUTH [facility] 00 TWICE A DAY predniSONE 2021-0 Yes TAKE 1 [facility] 20 mg oral 6-16 TABLET BY l tablet 21:18: MOUTH [facility] 00 EVERY DAY FOR 5 DAYS clonazePAM 2021-0 Yes TAKE 1 [facility] 0.5 mg oral 6-16 TABLET BY l tablet 21:18: MOUTH [facility] 00 EVERY DAY NEEDED pregabalin 0 Yes TAKE 1 [facility] 75 mg oral 6-16 CAPSULE BY l capsule 21:18: MOUTH [facility] 00 TWICE A DAY predniSONE 0 Yes TAKE 1 [facility] 20 mg oral 6-16 TABLET BY l tablet 21:18: MOUTH [facility] 00 EVERY DAY FOR 5 DAYS clonazePAM 0 Yes TAKE 1 [facility] 0.5 mg oral 6-16 TABLET BY l tablet 21:18: MOUTH [facility] 00 EVERY DAY NEEDED pregabalin 0 Yes TAKE 1 [facility] 75 mg oral 6-16 CAPSULE BY l capsule 21:18: MOUTH [facility] 00 TWICE A DAY predniSONE 2021-0 Yes TAKE 1 [facility] 20 mg oral 6-16 TABLET BY l tablet 21:18: MOUTH [facility] 00 EVERY DAY FOR 5 DAYS clonazePAM 2021-0 Yes TAKE 1 [facility] 0.5 mg oral 6-16 TABLET BY l tablet 21:18: MOUTH [facility] 00 EVERY DAY NEEDED pregabalin 0 Yes TAKE 1 [facility] 75 mg oral 6-16 CAPSULE BY l capsule 21:18: MOUTH [facility] 00 TWICE A DAY predniSONE 2021-0 Yes TAKE 1 [facility] 20 mg oral 6-16 TABLET BY l tablet 21:18: MOUTH [facility] 00 EVERY DAY FOR 5 DAYS clonazePAM 2021-0 Yes TAKE 1 [facility] 0.5 mg oral 6-16 TABLET BY l tablet 21:18: MOUTH [facility] 00 EVERY DAY NEEDED pregabalin 2021-0 Yes TAKE 1 [facility] 75 mg oral 6-16 CAPSULE BY l capsule 21:18: MOUTH [facility] 00 TWICE A DAY predniSONE 2021-0 Yes TAKE 1 [facility] 20 mg oral 6-16 TABLET BY l tablet 21:18: MOUTH [facility] 00 EVERY DAY FOR 5 DAYS clonazePAM 2021-0 Yes TAKE 1 [facility] 0.5 mg oral 6-16 TABLET BY l tablet 21:18: MOUTH [facility] 00 EVERY DAY NEEDED pregabalin 2021-0 Yes TAKE 1 [facility] 75 mg oral 6-16 CAPSULE BY l capsule 21:18: MOUTH [facility] 00 TWICE A DAY predniSONE 2021-0 Yes TAKE 1 [facility] 20 mg oral 6-16 TABLET BY l tablet 21:18: MOUTH [facility] 00 EVERY DAY FOR 5 DAYS clonazePAM 2021-0 Yes TAKE 1 [facility] 0.5 mg oral 6-16 TABLET BY l tablet 21:18: MOUTH [facility] 00 EVERY DAY NEEDED pregabalin 0 Yes TAKE 1 [facility] 75 mg oral 6-16 CAPSULE BY l capsule 21:18: MOUTH [facility] 00 TWICE A DAY predniSONE 2021-0 Yes TAKE 1 [facility] 20 mg oral 6-16 TABLET BY l tablet 21:18: MOUTH [facility] 00 EVERY DAY FOR 5 DAYS clonazePAM 2021-0 Yes TAKE 1 [facility] 0.5 mg oral 6-16 TABLET BY l tablet 21:18: MOUTH [facility] 00 EVERY DAY NEEDED pregabalin 0 Yes TAKE 1 [facility] 75 mg oral 6-16 CAPSULE BY l capsule 21:18: MOUTH [facility] 00 TWICE A DAY clonazePAM 2021-0 Yes TAKE 1 [facility] 0.5 mg oral 6-16 TABLET BY l tablet 21:18: MOUTH [facility] 00 EVERY DAY NEEDED predniSONE 2021-0 Yes TAKE 1 [facility] 20 mg oral 6-16 TABLET BY l tablet 21:18: MOUTH [facility] 00 EVERY DAY FOR 5 DAYS pregabalin 2021-0 Yes TAKE 1 [facility] 75 mg oral 6-16 CAPSULE BY l capsule 21:18: MOUTH [facility] 00 TWICE A DAY clonazePAM 2021-0 Yes TAKE 1 [facility] 0.5 mg oral 6-16 TABLET BY l tablet 21:18: MOUTH [facility] 00 EVERY DAY NEEDED predniSONE 2021-0 Yes TAKE 1 [facility] 20 mg oral 6-16 TABLET BY l tablet 21:18: MOUTH [facility] 00 EVERY DAY FOR 5 DAYS pregabalin 2021-0 Yes TAKE 1 [facility] 75 mg oral 6-16 CAPSULE BY l capsule 21:18: MOUTH [facility] 00 TWICE A DAY clonazePAM 2021-0 Yes TAKE 1 [facility] 0.5 mg oral 6-16 TABLET BY l tablet 21:18: MOUTH [facility] 00 EVERY DAY NEEDED predniSONE 2021-0 Yes TAKE 1 [facility] 20 mg oral 6-16 TABLET BY l tablet 21:18: MOUTH [facility] 00 EVERY DAY FOR 5 DAYS pregabalin 2021-0 Yes TAKE 1 [facility] 75 mg oral 6-16 CAPSULE BY l capsule 21:18: MOUTH [facility] 00 TWICE A DAY clonazePAM 2021-0 Yes TAKE 1 [facility] 0.5 mg oral 6-16 TABLET BY l tablet 21:18: MOUTH [facility] 00 EVERY DAY NEEDED predniSONE 2021-0 Yes TAKE 1 [facility] 20 mg oral 6-16 TABLET BY l tablet 21:18: MOUTH [facility] 00 EVERY DAY FOR 5 DAYS predniSONE 2021-0 Yes TAKE 1 [facility] 20 mg oral 6-16 TABLET BY l tablet 21:18: MOUTH [facility] 00 EVERY DAY FOR 5 DAYS clonazePAM 2021-0 Yes TAKE 1 [facility] 0.5 mg oral 6-16 TABLET BY l tablet 21:18: MOUTH [facility] 00 EVERY DAY NEEDED pregabalin 2021-0 Yes TAKE 1 [facility] 75 mg oral 6-16 CAPSULE BY l capsule 21:18: MOUTH [facility] 00 TWICE A DAY No known 2021-0 [...] [facility] predniSONE 2021-0 Yes TAKE 1 [facility] (DELTASONE) 6-13 TABLET BY [facility] 20 MG 00:00: MOUTH of tablet 00 EVERY DAY Medicin FOR 5 DAYS e predniSONE 2021-0 Yes TAKE 1 [facility] (DELTASONE) 6-13 TABLET BY [facility] 20 MG 00:00: MOUTH of tablet 00 EVERY DAY Medicin FOR 5 DAYS e Aspirin 81 2-0 Yes [facility] MG tablet - College 14:07: of 58 Medicin e pantoprazol 2-0 Yes 20mg Take 20 mg [facility] e -07 by mouth [facility] (PROTONIX) 14:07: daily. of 20 MG 58 Medicin tablet e clonazepam 2-0 Yes [facility] (KLONOPIN) 04-06 College 0.5 MG 00:00: of tablet 00 Medicin e clonazepam 2-0 Yes [facility] (KLONOPIN) 04-06 [facility] 0.5 MG 00:00: of tablet 00 Medicin e clonazepam 2-0 Yes [facility] (KLONOPIN) 04-06 [facility] 0.5 MG 00:00: of tablet 00 Medicin e clonazepam 2-0 2- No [facility] (KLONOPIN) - 07-12 [facility] 0.5 MG 00:00: 00:00 of tablet 00 :00 Medicin e Aspirin 81 2-0 Yes [facility] MG tablet -24 College 14:57: of 55 Medicin e pantoprazol 2-0 Yes 20mg Take 20 mg [facility] e 5-24 by mouth [facility] (PROTONIX) 14:57: daily. of 20 MG 55 Medicin tablet e pregabalin 2022-0 Yes 75mg Take 1 [...] of 00 times Medicin daily. e pregabalin 0 Yes 75mg Take 1 [facility] (LYRICA) 75 5-24 capsule by Co llege MG capsule 00:00: mouth two of 00 times Medicin daily. e pregabalin 0 Yes 75mg Take 1 [facility] (LYRICA) 75 5-24 capsule by Co llege MG capsule 00:00: mouth two of 00 times Medicin daily. e pregabalin 0 2022- No 75mg Take 1 [facility] (LYRICA) 75 5-24 08-25 capsule by [facility] MG capsule 00:00: 00:00 mouth two o f 00 :00 times Medicin daily. e meloxicam Yes TAKE 1 [facility] (MOBIC) 7.5 5-19 TABLET BY [facility] MG tablet 00:00: MOUTH of 00 EVERY DAY Medicin FOR 30 e DAYS meloxicam Yes TAKE 1 [facility] (MOBIC) 7.5 5-19 TABLET BY [facility] MG tablet 00:00: MOUTH of 00 EVERY DAY Medicin FOR 30 e DAYS meloxicam 2021- No TAKE 1 [facility] ([facility]) 7.5 5-19 07-12 TABLET BY [facility] MG tablet 00:00: 00:00 MOUTH of 00 :00 EVERY DAY Medicin FOR 30 e DAYS Mobic 7.5 Mobic 7.5 2021- No 1{table QD Mobic 7.5 MG MG 5-19 06-18 t} MG 00:00: 00:00 00 :00 Mobic 7.5 Mobic 7.5 0 2021- No 1{table QD Mobic 7.5 MG MG 5-19 06-18 t} MG 00:00: 00:00 00 :00 Mobic 7.5 Mobic 7.5 2021- No 1{table QD Mobic 7.5 MG MG 5-19 06-18 t} MG 00:00: 00:00 00 :00 Bentyl 10 Yes 10 mg = 1 [facility] mg oral 5-18 cap, PO, l capsule 21:57: BID, # 30 Francesca nn 00 cap, 0 Refill(s), Pharmacy: [facility] #[id number], 160.02, cm, 03/23/22 15:13:00 CDT, Height, 79.545, kg, 03/23/22 15:13:00 CDT, Weight Bentyl 10 2021-0 Yes 10 mg = 1 Mem oria mg oral 5-18 cap, PO, l capsule 21:57: BID, # 30 Francesca nn 00 cap, 0 Refill(s), Pharmacy: [facility] #[id number], 160.02, cm, 03/23/22 15:13:00 CDT, Height, 79.545, kg, 03/23/22 15:13:00 CDT, Weight Bentyl 2021-0 Yes 10 mg = 1 Mem oria mg oral 5-18 cap, PO, l capsule 21:57: BID, # 30 Francesca nn 00 cap, 0 Refill(s), Pharmacy: [facility] #[id number], 160.02, cm, 03/23/22 15:13:00 CDT, Height, 79.545, kg, 03/23/22 15:13:00 CDT, Weight Bentyl 10 2021-0 Yes 10 mg = 1 Mem oria mg oral 5-18 cap, PO, l capsule 21:57: BID, # 30 Francesca nn 00 cap, 0 Refill(s), Pharmacy: [facility] #[id number], 160.02, cm, 03/23/22 15:13:00 CDT, Height, 79.545, kg, 03/23/22 15:13:00 CDT, Weight Bentyl 10 2021-0 Yes 10 mg = 1 Mem oria mg oral 5-18 cap, PO, l capsule 21:57: BID, # 30 Francesca nn 00 cap, 0 Refill(s), Pharmacy: [facility] #[id number], 160.02, cm, 03/23/22 15:13:00 CDT, Height, 79.545, kg, 03/23/22 15:13:00 CDT, Weight Bentyl 10 2021-0 Yes 10 mg = 1 Mem oria mg oral 5-18 cap, PO, l capsule 21:57: BID, # 30 Francesca nn 00 cap, 0 Refill(s), [id number], 160.02, cm, 03/23/22 15:13:00 CDT, Height, 79.545, kg, 03/23/22 15:13:00 CDT, Weight Bentyl 10 2021-0 Yes 10 mg = 1 [facility]ria mg oral 5-18 cap, PO, l capsule 21:57: BID, # 30 Francesca nn 00 cap, 0 Refill(s), Pharmacy: [facility] #[id number], 160.02, cm, 03/23/22 15:13:00 CDT, Height, 79.545, kg, 03/23/22 15:13:00 CDT, Weight Bentyl 10 2021-0 Yes 10 mg = 1 [facility] mg oral 5-18 cap, PO, l capsule 21:57: BID, # 30 Francesca nn 00 cap, 0 Refill(s), Pharmacy: [facility] #[id number], 160.02, cm, 03/23/22 15:13:00 CDT, Height, 79.545, kg, 03/23/22 15:13:00 CDT, Weight Bentyl 2021-0 Yes 10 mg = 1 [facility] mg oral 5-18 cap, PO, l capsule 21:57: BID, # 30 Francesca nn 00 cap, 0 Refill(s), Pharmacy: [facility] #[id number], 160.02, cm, 03/23/22 15:13:00 CDT, Height, 79.545, kg, 03/23/22 15:13:00 CDT, Weight Bentyl 2021-0 Yes 10 mg = 1 [facility] mg oral 5-18 cap, PO, l capsule 21:57: BID, # 30 Francesca nn 00 cap, 0 Refill(s), Pharmacy: [facility] #[id number], 160.02, cm, 03/23/22 15:13:00 CDT, Height, 79.545, kg, 03/23/22 15:13:00 CDT, Weight Bentyl 10 2021-0 Yes 10 mg = 1 [facility] mg oral 5-18 cap, PO, l capsule 21:57: BID, # 30 Francesca nn 00 cap, 0 Refill(s), [facility]acy: [facility] #[id number], 160.02, cm, 03/23/22 15:13:00 CDT, Height, 79.545, kg, 03/23/22 15:13:00 CDT, Weight Bentyl 10 2021-0 Yes 10 mg = 1 [facility] mg oral 5-18 cap, PO, l capsule 21:57: BID, # 30 Francesca nn 00 cap, 0 Refill(s), Pharmacy: [facility] #[id number], 160.02, cm, 03/23/22 15:13:00 CDT, Height, 79.545, kg, 03/23/22 15:13:00 CDT, Weight Bentyl 10 0 Yes 10 mg = 1 [facility] mg oral 5-18 cap, PO, l capsule 21:57: BID, # 30 Francesca nn 00 cap, 0 Refill(s), Pharmacy: [facility] #[id number], 160.02, cm, 03/23/22 15:13:00 CDT, Height, 79.545, kg, 03/23/22 15:13:00 CDT, Weight dicyclomine 2021-0 Yes TAKE 1 [facility] (BENTYL) 10 5-18 CAPSULE BY [facility] MG capsule 00:00: MOUTH of 00 TWICE A Medicin DAY FOR 15 e DAYS dicyclomine 2021-0 Yes TAKE 1 [facility] (BENTYL) 10 5-18 CAPSULE BY [facility] MG capsule 00:00: MOUTH of 00 TWICE A Medicin DAY FOR 15 e DAYS dicyclomine 2021-0 Yes Every 8 [facility] (BENTYL) 10 5-18 hours. [facility] MG capsule 00:00: of 00 Medicin e dicyclomine 2021-0 Yes Every 8 [facility] (BENTYL) 10 5-18 hours. [facility] MG capsule 00:00: of 00 Medicin e dicyclomine 2021-0 Yes Every 8 [facility] (BENTYL) 10 5-18 hours. [facility] e MG capsule 00:00: of 00 Medicin e dicyclomine 2022-0 2023- No Every 8 [facility] (BENTYL) 10 5-18 03-13 hours. [facility] MG capsule 00:00: 00:00 of 00 :00 Medicin e dicyclomine 2021- No TAKE 1 [facility] (BENTYL) 10 5-18 07-12 CAPSULE BY [facility] MG capsule 00:00: 00:00 MOUTH of 00 :00 TWICE A Medicin DAY FOR 15 e DAYS Aspirin 81 2021-0 Yes [facility] MG tablet 5-13 [facility] 10:16: of 04 Medicin e pantoprazol Yes 20mg Take 20 mg [facility] e 5-13 by mouth [facility] (PROTONIX) 10:16: daily. of 20 MG 04 Medicin tablet e Aspirin 81 Yes [facility] MG tablet 5-11 [facility] 14:40: of 02 Medicin e pantoprazol Yes 20mg Take 20 mg [facility] e 5-11 by mouth [facility] (PROTONIX) 14:40: daily. of 20 MG 02 Medicin tablet e metoprolol 2021- No [id number] Take 1 [facility] (TOPROL-XL) 5- 05-11 tablet [facility] 50 MG XL 00:00: 00:00 once a day of tablet 00 :00 Medicin e Metoprolol Yes TAKE 1 [facility] Succinate 5-09 TABLET BY l ER 25 mg 19:02: MOUTH [facility] oral 00 EVERY DAY tablet, FOR 90 extended DAYS release amLODIPine Yes TAKE 1 [facility] 10 mg oral 5-09 TABLET BY l tablet 19:02: MOUTH Aguila 00 EVERY DAY pantoprazol 0 Yes TAKE 1 [facility] enriqueta e 20 [...] MOUTH Adrian 00 EVERY DAY aspirin 81 0 Yes [...] BY l ER 25 mg 19:02: MOUTH Adrian oral 00 EVERY DAY tablet, FOR 90 extended DAYS release amLODIPine Yes TAKE 1 [facility] 10 mg oral 5-09 TABLET BY l tablet 19:02: MOUTH Aguila 00 EVERY DAY pantoprazol Yes TAKE 1 [facility] enriqueta e 20 mg 5-09 TABLET BY l oral 19:02: MOUTH ONCE Adrian enteric 00 A DAY 30 coated MINUTES tablet BEFORE BREAKFAST losartan Yes TAKE 1 [facility] 100 mg oral 5-09 TABLET BY l tablet 19:02: MOUTH Aguila 00 EVERY DAY atorvastati Yes TAKE 1 [...] BY l ER 25 mg 19:02: MOUTH [facility] oral 00 EVERY DAY tablet, FOR 90 extended DAYS release amLODIPine Yes TAKE 1 [facility] 10 mg oral 5-09 TABLET BY l tablet 19:02: MOUTH Adrian 00 EVERY DAY pantoprazol Yes TAKE 1 [facility] enriqueta e 20 mg 5-09 TABLET BY l oral 19:02: MOUTH ONCE [facility]ila enteric 00 A DAY 30 coated MINUTES tablet BEFORE BREAKFAST losartan Yes TAKE 1 [facility] 100 mg oral 5-09 TABLET BY l tablet 19:02: MOUTH Aguila 00 EVERY DAY atorvastati Yes TAKE 1 [facility] enriqueta n 40 mg 5-09 TABLET BY l oral tablet 19:02: MOUTH Francesca nn 00 EVERY DAY clopidogrel Yes TAKE 1 [facility] enriqueta 75 mg oral 5-09 TABLET BY l tablet 19:02: MOUTH Adrian 00 EVERY DAY aspirin 81 0 Yes [...] BY l ER 25 mg 19:02: MOUTH Adrian oral 00 EVERY DAY tablet, FOR 90 extended DAYS release amLODIPine Yes TAKE 1 [facility] 10 mg oral 5-09 TABLET BY l tablet 19:02: MOUTH Aguila 00 EVERY DAY pantoprazol Yes TAKE 1 [facility] enriqueta e 20 mg 5-09 TABLET BY l oral 19:02: MOUTH ONCE Aguila enteric 00 A DAY 30 coated MINUTES [...] 5-09 TABLET BY l tablet 19:02: MOUTH Aguila 00 EVERY DAY aspirin 81 0 Yes [...] BY l ER 25 mg 19:02: MOUTH Aguila oral 00 EVERY DAY tablet, FOR 90 extended DAYS release amLODIPine Yes TAKE 1 [facility] 10 mg oral 5-09 TABLET BY l tablet 19:02: MOUTH Aguila 00 EVERY DAY pantoprazol Yes TAKE 1 [facility] enriqueta e 20 mg 5-09 TABLET BY l oral 19:02: MOUTH ONCE Adrian enteric 00 A DAY 30 coated MINUTES tablet BEFORE BREAKFAST losartan Yes TAKE 1 [facility] 100 mg oral 5-09 TABLET BY l tablet 19:02: MOUTH Aguila 00 EVERY DAY atorvastati Yes TAKE 1 [facility] enriqueta n 40 mg 5-09 TABLET BY l oral tablet 19:02: MOUTH Francesca nn 00 EVERY DAY clopidogrel Yes TAKE 1 [facility] enriqueta 75 mg oral 5-09 TABLET BY l tablet 19:02: MOUTH Aguila 00 EVERY DAY aspirin 81 0 Yes [...] BY l ER 25 mg 19:02: MOUTH Aguila oral 00 EVERY DAY tablet, FOR 90 extended DAYS release amLODIPine Yes TAKE 1 [facility] 10 mg oral 5-09 TABLET BY l tablet 19:02: MOUTH Aguila 00 EVERY DAY pantoprazol Yes TAKE 1 [facility] enriqueta e 20 mg 5-09 TABLET BY l oral 19:02: MOUTH ONCE Aguila enteric 00 A DAY 30 coated MINUTES tablet BEFORE BREAKFAST losartan Yes TAKE 1 [facility] 100 mg oral 5-09 TABLET BY l tablet 19:02: MOUTH Aguila 00 EVERY DAY atorvastati Yes TAKE 1 [facility] enriqueta n 40 mg 5-09 TABLET BY l oral tablet 19:02: MOUTH Francesca nn 00 EVERY DAY clopidogrel Yes TAKE 1 [facility] enriqueta 75 mg oral 5-09 TABLET BY l tablet 19:02: MOUTH Adrian 00 EVERY DAY aspirin 81 0 Yes 81 mg = 1 Me moria mg oral 5-09 cap, PO, l capsule 19:02: Daily, 0 [place] n 00 Refill(s) mirtazapine Yes TAKE 1 Frederick enriqueta 30 mg oral 5-09 TABLET BY l tablet 19:02: MOUTH Aguila 00 EVERY DAY AT BEDTIME FOR 90 DAYS Metoprolol 0 Yes TAKE 1 [facility] Succinate 5-09 TABLET BY l ER 25 mg 19:02: MOUTH Adrian oral 00 EVERY DAY tablet, FOR 90 extended DAYS release amLODIPine Yes TAKE 1 [facility] 10 mg oral 5-09 TABLET BY l tablet 19:02: MOUTH Aguila 00 EVERY DAY pantoprazol Yes TAKE 1 Frederick enriqueta e 20 mg 5-09 TABLET BY l oral 19:02: MOUTH ONCE Aguila enteric 00 A DAY 30 coated MINUTES tablet BEFORE BREAKFAST losartan Yes TAKE 1 [facility] 100 mg oral 5-09 TABLET BY l tablet 19:02: MOUTH Aguila 00 EVERY DAY atorvastati Yes TAKE 1 [facility] enriqueta n 40 mg 5-09 TABLET BY l oral tablet 19:02: MOUTH Francesca nn 00 EVERY DAY clopidogrel Yes TAKE 1 [facility] enriqueta 75 mg oral 5-09 TABLET BY l tablet 19:02: MOUTH Aguila 00 EVERY DAY aspirin 81 Yes 81 [...] BY l ER 25 mg 19:02: MOUTH Aguila oral 00 EVERY DAY tablet, FOR 90 [...] 5-09 TABLET BY l tablet 19:02: MOUTH Aguila 00 EVERY DAY atorvastati Yes TAKE 1 Frederick enriqueta n 40 mg 5-09 TABLET BY l oral tablet 19:02: MOUTH Francesca nn 00 EVERY DAY clopidogrel Yes TAKE 1 [facility] enriqueta 75 mg oral 5-09 TABLET BY l tablet 19:02: MOUTH Aguila 00 EVERY DAY aspirin 81 2022-0 Yes 81 mg = 1 Me moria mg oral 5-09 cap, PO, l capsule 19:02: Daily, 0 [place] n 00 Refill(s) mirtazapine Yes TAKE 1 [facility] enriqueta 30 mg oral 5-09 TABLET BY l tablet 19:02: MOUTH Adrian 00 EVERY DAY AT BEDTIME FOR 90 DAYS Metoprolol Yes TAKE 1 [facility] Succinate 5-09 TABLET BY l ER 25 mg 19:02: MOUTH Aguila oral 00 EVERY DAY tablet, FOR 90 extended DAYS release amLODIPine Yes TAKE 1 [facility] 10 mg oral 5-09 TABLET BY l tablet 19:02: MOUTH Aguila 00 EVERY DAY pantoprazol Yes TAKE 1 [facility] enriqueta e 20 mg 5-09 TABLET BY l oral 19:02: MOUTH ONCE Aguila enteric 00 A DAY 30 coated MINUTES [...] 5-09 TABLET BY l tablet 19:02: MOUTH Aguila 00 EVERY DAY aspirin 81 Yes 81 mg = 1 Me moria mg oral 5-09 cap, PO, l capsule 19:02: Daily, 0 [place] n 00 Refill(s) mirtazapine Yes TAKE 1 [facility] enriqueta 30 mg oral 5-09 TABLET BY l tablet 19:02: MOUTH Aguila 00 EVERY DAY AT BEDTIME FOR 90 DAYS Metoprolol Yes TAKE 1 [facility] Succinate 5-09 TABLET BY l ER 25 mg 19:02: MOUTH Aguila oral 00 EVERY DAY tablet, FOR 90 [...] 5-09 TABLET BY l tablet 19:02: MOUTH Aguila 00 EVERY DAY aspirin 81 Yes 81 mg = 1 Me moria mg oral 5-09 cap, PO, l capsule 19:02: Daily, 0 [place] n 00 Refill(s) mirtazapine Yes TAKE 1 [facility] enriqueta 30 mg oral 5-09 TABLET BY l tablet 19:02: MOUTH Aguila 00 EVERY DAY AT BEDTIME FOR 90 DAYS Metoprolol Yes TAKE 1 [facility] Su[facility] 5-09 TABLET BY l ER 25 mg 19:02: MOUTH Adrian oral 00 EVERY DAY tablet, FOR 90 extended DAYS release amLODIPine Yes TAKE 1 [facility] 10 mg oral 5-09 TABLET BY l tablet 19:02: MOUTH Adrian 00 EVERY DAY pantoprazol Yes TAKE 1 [facility] enriqueta e 20 mg 5-09 TABLET BY l oral 19:02: MOUTH ONCE Aguila enteric 00 A DAY 30 coated MINUTES tablet BEFORE BREAKFAST losartan Yes TAKE 1 [facility] 100 mg oral 5-09 TABLET BY l tablet 19:02: MOUTH Aguila 00 EVERY DAY atorvastati Yes TAKE 1 [facility] enriqueta n 40 mg 5-09 TABLET BY l oral tablet 19:02: MOUTH Francesca nn 00 EVERY DAY clopidogrel Yes TAKE 1 Ferderick enriqueta 75 mg oral 5-09 TABLET BY l tablet 19:02: MOUTH Aguila 00 EVERY DAY aspirin 81 Yes 81 [...] BY l ER 25 mg 19:02: MOUTH Aguila oral 00 EVERY DAY tablet, FOR 90 extended DAYS release amLODIPine Yes TAKE 1 [facility] 10 mg oral 5-09 TABLET BY l tablet 19:02: MOUTH Aguila 00 EVERY DAY pantoprazol Yes TAKE 1 [facility] enriqueta e 20 mg 5-09 TABLET BY l oral 19:02: MOUTH ONCE Aguila enteric 00 A DAY 30 coated MINUTES [...] 5-09 TABLET BY l tablet 19:02: MOUTH Aguila 00 EVERY DAY AT BEDTIME FOR 90 DAYS Metoprolol Yes TAKE 1 [facility] Succinate 5-09 TABLET BY l ER 25 mg 19:02: MOUTH Aguila oral 00 EVERY DAY tablet, FOR 90 extended DAYS release amLODIPine Yes TAKE 1 [facility] 10 mg oral 5-09 TABLET BY l tablet 19:02: MOUTH Aguila 00 EVERY DAY pantoprazol Yes TAKE 1 [facility] enriqueta e 20 mg 5-09 TABLET BY l oral 19:02: MOUTH ONCE Aguila enteric 00 A DAY 30 coated MINUTES tablet BEFORE BREAKFAST losartan Yes TAKE 1 [facility] 100 mg oral 5-09 TABLET BY l tablet 19:02: MOUTH Aguila 00 EVERY DAY atorvastati Yes TAKE 1 [facility] enriqueta n 40 mg 5-09 TABLET BY l oral tablet 19:02: MOUTH Francesca nn 00 EVERY DAY clopidogrel Yes TAKE 1 [facility] enriqueta 75 mg oral 5-09 TABLET BY l tablet 19:02: MOUTH Aguila 00 EVERY DAY aspirin 81 0 Yes 81 mg = 1 Me moria mg oral 5-09 cap, PO, l capsule 19:02: Daily, 0 [place] n 00 Refill(s) mirtazapine Yes TAKE 1 [facility] enriqueta 30 mg oral 5-09 TABLET BY l tablet 19:02: MOUTH Aguila 00 EVERY DAY AT BEDTIME FOR 90 DAYS Mirtazapine Mirtazapine No 1{table QD Mirtazapin 30 MG 30 MG 4-27 [id number]_[id number] e 30 MG 00:00: dtime} 00 metoprolol Yes TAKE 1 [facility] (TOPROL-XL) [...] Medicin FOR 90 e DAYS Aspirin 81 0 Yes [facility] MG tablet 4-11 College 10:58: of 03 Medicin e pantoprazol Yes 20mg Take 20 mg [facility] e 4-11 by mouth [facility] (PROTONIX) 10:58: daily. of 20 MG 03 Medicin tablet e Bupivicaine Bupivicaine No 2.5mg [facility] Good Thunder 3-14 [facility] 00:00: - [facility] Kenalog Kenalog No 40mg Common (Triamcinol (Triamcinol 3-14 S pirit one) one) 00:00: - [facility] Bupivicaine Bupivicaine No 2.5mg Common [facility] [place] Good Thunder 3-14 Spirit 00:00: - [facility] 00 [facility] Kenalog Kenalog 2021-0 No 40mg Common (Triamcinol (Triamcinol 3-14 S pirit one) one) 00:00: - [facility] 00 [facility] Tylenol # 3 Tylenol # 3 2021-0 No Tylenol # 300/30mg 300/30mg 3-14 3 300/30mg 00:00: 00 Bupivicaine Bupivicaine 2-0 No Common [facility] Good Thunder 3-14 Spirit 00:00: - [facility] 00 [facility] Kenshannan Kenalog 2021-0 No 40mg Common (Triamcinol (Triamcinol 3-14 S pirit one) one) 00:00: - [facility] 00 [facility] Tylenol # 3 Tylenol # 3 2021-0 No Tylenol # 300/30mg 300/30mg 3-14 3 300/30mg 00:00: 00 Bupivicaine Bupivicaine 2-0 No 2.5mg [facility] Good [place] 3-14 Spirit 00:00: - [facility] 00 [facility] Cristino Kenalog 2021-0 No 40mg Common (Triamcinol (Triamcinol 3-14 S pirit one) one) 00:00: - [facility] 00 [facility] Tylenol # 3 Tylenol # 3 2021-0 No Tylenol # 300/30mg 300/30mg 3-14 3 300/30mg 00:00: 00 Bupivicaine Bupivicaine 2-0 No 2.5mg [facility] Good [place] 3-14 Spirit 00:00: - [facility] Cristino Kenalog 2021-0 No 40mg Common (Triamcinol (Triamcinol 3-14 S pirit one) one) 00:00: - [facility] 00 [facility] Tylenol # 3 Tylenol # 3 2021-0 No Tylenol # 300/30mg 300/30mg 3-14 3 300/30mg 00:00: 00 Bupivicaine Bupivicaine 2022-0 No 2.5mg [facility] [place] 3-14 Spirit 00:00: - [facility] Kenalog Kenalog 2-0 No 40mg Common (Triamcinol (Triamcinol 3-14 S pirit one) one) 00:00: - [facility] 00 [facility] Tylenol # 3 Tylenol # 3 2-0 No Tylenol # 300/30mg 300/30mg 3-14 3 300/30mg 00:00: 00 Bupivicaine Bupivicaine 2-0 No 2.5mg [facility] 3-14 Spirit 00:00: - [facility] 00 [facility] Kenalog Kenalog 2-0 No 40mg Common (Triamcinol (Triamcinol 3-14 S pirit one) one) 00:00: - [facility] 00 [facility] Tylenol # 3 Tylenol # 3 2021-0 No Tylenol # 300/30mg 300/30mg 3-14 3 300/30mg 00:00: 00 Bupivicaine Bupivicaine 2-0 No 2.5mg [facility] [place] 3-14 Spirit 00:00: - [facility] Kenalog Kenalog 2-0 No 40mg Common (Triamcinol (Triamcinol 3-14 S pirit one) one) 00:00: - [facility] Tylenol # 3 Tylenol # 3 2021-0 No Tylenol # 300/30mg 300/30mg 3-14 3 300/30mg 00:00: 00 Bupivicaine Bupivicaine 2-0 No 2.5mg [facility] Good [place] 3-14 Spirit 00:00: - [facility] Kenalog Kenalog 2-0 No 40mg Common (Triamcinol (Triamcinol 3-14 S pirit one) one) 00:00: - [facility] 00 [facility] Tylenol # 3 Tylenol # 3 2-0 No Tylenol # 300/30mg 300/30mg 3-14 3 300/30mg 00:00: 00 Bupivicaine Bupivicaine 2-0 No 2.5mg [facility] Good [place] 3-14 Spirit 00:00: - [facility] Kenalog Kenalog 2-0 No 40mg Common (Triamcinol (Triamcinol 3-14 S pirit one) one) 00:00: - [facility] Bupivicaine Bupivicaine 2-0 No 2.5mg [facility] [place] 3-14 Spirit 00:00: - [facility] 00 [facility] Kenalog Kenalog 2021-0 No 40mg Common (Triamcinol (Triamcinol 3-14 S pirit one) one) 00:00: - [facility] 00 [facility] Bupivicaine Bupivicaine 2-0 No 2.5mg [facility] [place] [facility] [place] 3-14 Spirit 00:00: - [facility] 00 [facility] Kenalog Kenalog 2021-0 No 40mg Common (Triamcinol (Triamcinol 3-14 S pirit one) one) 00:00: - [facility] 00 [facility] Bupivicaine Bupivicaine 2-0 No 2.5mg [facility] Good [place] 3-14 Spirit 00:00: - [facility] 00 [facility] Kalpeshalog Kenalog 2021-0 No 40mg Common (Triamcinol (Triamcinol 3-14 S pirit one) one) 00:00: - [facility] 00 [facility] Bupivicaine Bupivicaine 2021-0 No 2.5mg Common [facility] [place] Good [place] 3-14 Spirit 00:00: - [facility] 00 [facility] Kalpeshalog Kenalog 2021-0 No 40mg Common (Triamcinol (Triamcinol 3-14 S pirit one) one) 00:00: - [facility] 00 [facility] Aspirin 81 2021-0 Yes [facility] MG tablet 2-14 College 12:59: of 13 Medicin e pantoprazol 2021-0 Yes 20mg Take 20 mg [facility] e 2-14 by mouth [facility] (PROTONIX) 12:59: daily. of 20 MG 13 Medicin tablet e Aspirin 81 2021-0 Yes [facility] MG tablet 2-14 College 12:59: of 13 Medicin e pantoprazol 2021-0 Yes 20mg Take 20 mg [facility] e 2-14 by mouth [facility] (PROTONIX) 12:59: daily. of 20 MG 13 Medicin tablet e Aspirin 81 2021-0 Yes [facility] MG tablet 2-04 College 09:15: of 36 Medicin e pantoprazol 2021-0 Yes 20mg Take 20 mg [facility]iel e 2-04 by mouth [facility] (PROTONIX) 09:15: daily. of 20 MG 36 Medicin tablet e Aspirin 81 2021-0 Yes [facility] MG tablet 1-12 College 13:38: of 09 Medicin e pantoprazol 2021-0 Yes 20mg Take 20 mg [facility] e -12 by mouth [facility] (PROTONIX) 13:38: daily. of 20 MG 09 [...] BEDTIME e NEEDED Aspirin 81 2-0 Yes [facility] MG tablet 11-12 [facility] 16:19: of 06 Medicin e pantoprazol 2-0 Yes 20mg Take 20 mg [facility] e -07 by mouth [facility] (PROTONIX) 16:19: daily. of 20 MG 06 Medicin tablet e gabapentin 2-0 Yes [id number] 100mg Take 1 [facility] (NEURONTIN) 1-07 capsule by Co llege 100 MG 00:00: mouth at of capsule 00 bedtime. Medicin e gabapentin 2022-0 Yes [id number] 100mg Take 1 [facility] (NEURONTIN) 1-07 capsule by Co llege 100 MG 00:00: mouth at of capsule 00 bedtime. Medicin e gabapentin 2022-0 Yes [id number] 100mg Take 1 [facility] (NEURONTIN) 1-07 capsule by Co [facility]lege 100 MG 00:00: mouth at of capsule 00 bedtime. Medicin e gabapentin 2021-0 Yes [id number] 100mg Take 1 [facility] (NEURONTIN) 1-07 capsule by Co llege 100 MG 00:00: mouth at of capsule 00 bedtime. Medicin e gabapentin 2-0 Yes [id number] 100mg Take 1 [facility] (NEURONTIN) 1-07 capsule by Co [facility]lege 100 MG 00:00: mouth at of capsule 00 bedtime. Medicin e gabapentin 2021-0 2022- No [id number] 100mg Take 1 [facility] (NEURONTIN) 1-05 09-11 capsule by C [facility]lege 100 MG 00:00: 00:00 mouth at of capsule 00 :00 bedtime. Medicin e Tylenol # 3 Tylenol # 3 2020-2021- No Tylenol # 300/30mg 300/30mg 12-13 3 300/30mg 00:00: 00:00 00 :00 Tylenol # 3 Tylenol # 3 2020-11- No Tylenol # 300/30mg 300/30mg 12-13 3 300/30mg 00:00: 00:00 00 :00 Tylenol # 3 Tylenol # 3 2020-2021- No Tylenol # 300/30mg 300/30mg 12-13 3 300/30mg 00:00: 00:00 00 :00 Tylenol # 3 Tylenol # 3 2020-2021- No Tylenol # 300/30mg 300/30mg 12-13 3 300/30mg 00:00: 00:00 00 :00 Tylenol # 3 Tylenol # 3 2020-2021- No Tylenol # 300/30mg 300/30mg 12-13 3 300/30mg 00:00: 00:00 00 :00 Tylenol # 3 Tylenol # 3 2020-2021- No Tylenol # 300/30mg 300/30mg 12-13 3 300/30mg 00:00: 00:00 00 :00 Tylenol # 3 Tylenol # 3 2020-11- No Tylenol # 300/30mg 300/30mg 12-13 3 300/30mg 00:00: 00:00 00 :00 Tylenol # 3 Tylenol # 3 2020-11- No Tylenol # 300/30mg 300/30mg 12-13 3 300/30mg 00:00: 00:00 00 :00 Aspirin 81 2020-11 Yes [facility] MG tablet 11-27 [facility] 14:41: of 30 Medicin e pantoprazol 2020-11 Yes 20mg Take 20 mg [facility] e 11-27 by mouth [facility] (PROTONIX) 14:41: daily. of 20 MG 30 Medicin tablet e Aspirin 81 2020-11 Yes [facility] MG tablet 17 [facility] 15:15: of 58 Medicin e pantoprazol 2020-11 Yes 20mg Take 20 mg [facility] e 17 by [facility] (PROTONIX) 15:15: daily. of 20 MG 58 Medicin tablet e phenazopyri 2020-11 Yes [id number] Take by [facility] 11-22 [facility] (PYRIDIUM) 00:00: every 8 of 200 MG 00 hours PRN. Medicin tablet e phenazopyri 2020-11- No [id number] Take by [facility] 17 09-27 [facility] (PYRIDIUM) 00:00: 00:00 every 8 of 200 [...] Medicin e clopidogrel 2020-11- No TAKE 1 [facility] (PLAVIX) 75 1-11 06-07 TABLET BY Co llege MG Tablet 00:00: 00:00 MOUTH of 00 :00 DAILY Medicin e Ciprofloxac Ciprofloxac 2020-11- No 1{table BID Ciprofloxa in HCl 500 in HCl 500 11-1618 t} aleksandra HCl MG MG 00:00: 00:00 500 MG 00 :00 Ciprofloxac Ciprofloxac 2020-11- No 1{table BID Ciprofloxa in HCl 500 in HCl 500 11-1618 t} aleksandra HCl MG MG 00:00: 00:00 500 MG 00 :00 Ciprofloxac Ciprofloxac 2020-11- No 1{table BID Ciprofloxa in HCl 500 in HCl 500 11-16 1118 t} aleksandra HCl MG MG 00:00: 00:00 500 MG 00 :00 Aspirin 2020-11 Yes [facility] (ASPIR-LOW) 0-26 College 81 MG 10:44: of tablet 36 Medicin e pantoprazol 2020-11 Yes 20mg Take 20 mg [facility] e 0-26 by mouth [facility] (PROTONIX) 10:44: daily. of 20 MG 36 Medicin tablet e Aspirin 2020-11 Yes [facility] (ASPIR-LOW) 0-26 College 81 MG 10:44: of tablet 36 Medicin e pantoprazol 2020-11 Yes 20mg Take 20 mg [facility] e 0-26 by mouth [facility] (PROTONIX) 10:44: daily. of 20 MG 36 Medicin tablet e [facility] 2020-11 Yes TAKE [address] [facility] (LIPITOR) 0-15 TABLET BY Laura es 40 MG 00:00: MOUTH Medical tablet 00 [facility] 2020-11 Yes TAKE [address] [facility] [facility] (LIPITOR) 0-15 TABLET BY Laura es 40 MG 00:00: MOUTH Medical tablet 00 [facility] 2020-11 Yes TAKE [address] [facility] [facility] (LIPITOR) 0-15 TABLET BY Laura es 40 MG 00:00: MOUTH Medical tablet 00 [facility] 2020-11 Yes TAKE [address] [facility] (LIPITOR) 0-15 TABLET BY Laura es 40 MG 00:00: MOUTH Medical tablet 00 [facility] 2020-11 Yes TAKE [address] [facility] [facility] (LIPITOR) 0-15 TABLET BY Laura es 40 MG 00:00: MOUTH Medical tablet 00 [facility] 2020-11 Yes TAKE [address] [facility] [facility] (LIPITOR) 0-15 TABLET BY Laura es 40 MG 00:00: MOUTH Medical tablet 00 [facility] 2020-11 Yes TAKE [address] [facility] [facility] (LIPITOR) 0-15 TABLET BY Laura es 40 MG 00:00: MOUTH Medical tablet 00 [facility] 2020-11 Yes TAKE [address] [facility] [facility] (LIPITOR) 0-15 TABLET BY Laura es 40 MG 00:00: MOUTH Medical tablet 00 [facility] 2020-11 Yes TAKE [address] [facility] [facility] (LIPITOR) 0-15 TABLET BY Laura es 40 MG 00:00: MOUTH Medical tablet 00 [facility] 2020-11 Yes TAKE [address] [facility] [facility] (LIPITOR) 0-15 TABLET BY Laura es 40 MG 00:00: MOUTH Medical tablet 00 [facility] 2020-11 Yes TAKE [address] [facility] [facility] (LIPITOR) 0-15 TABLET BY Laura es 40 MG 00:00: MOUTH Medical tablet 00 [facility] 2020-11 Yes TAKE [address] [facility] [facility] (LIPITOR) 0-15 TABLET BY [facility] es 40 MG 00:00: [facility] [address] [facility] [facility] ([facility]) 0-15 TABLET BY Laura es 40 MG 00:00: [facility]TH [facility] Yes [facility] [address] [facility] [facility] (LIPITOR) 0-15 TABLET BY [facility] es 40 MG 00:00: [facility]TH [facility] Yes [facility] [address] [facility] [facility] (LIPITOR) 0-15 TABLET BY Laura es 40 MG 00:00: [facility]TH [facility] Yes [facility] [address] [facility] [facility] (LIPITOR) 0-15 TABLET BY Laura es 40 MG 00:00: [facility]TH [facility] Yes [facility] [address] [facility] [facility] (LIPITOR) 0-15 TABLET BY Laura es 40 MG 00:00: MOUTH Medical tablet 00 [facility] 2020-11 Yes TAKE [address] [facility] (LIPITOR) 0-15 TABLET BY Laura es 40 MG 00:00: MOUTH Medical tablet 00 [facility] 2020- No TAKE [address] [facility] (LIPITOR) 9-15 10-15 TABLET BY Jackeline kes 40 MG 00:00: 00:00 [facility]OUTH [facility] [address] [facility] ([facility]) 9-15 10-15 TABLET BY Jackeline kes 40 MG 00:00: 00:00 MOUTH [facility] [address] [facility] (LIP[facility]) 9-15 10-15 TABLET BY Jackeline kes 40 MG 00:00: 00:00 MOUTH [facility] QD Take [address] [facility] (REMERON) 9-01 [facility] 30 MG 11:38: nightly. Medical tablet 49 [place] Yes 30mg QD Take [address] [facility] (REMERON) 9- [facility] 30 MG 11:38[facility] QD Take [address] [facility] (REMERON) - by mouth [facility] 30 MG 11:38: nightly. Medical tablet 49 [place] mirtazapine 2020-0 Yes 30mg QD Take [address] [facility] (REMERON) 01 by mouth [facility] 30 MG 11:38: nightly. Medical tablet 49 [place] mirtazapine 2020-0 Yes 30mg QD Take [address] [facility] (REMERON) 07-07 by mouth [facility] 30 MG 11:38: nightly. Medical tablet 49 [place] mirtazapine 2020-0 Yes 30mg QD Take [address] [facility] (REMERON) 07-07 by mouth [facility] 30 MG 11:38: nightly. Medical tablet 49 [place] mirtazapine 2020-0 Yes 30mg QD Take [address] [facility] (REMERON) 07-07 by mouth [facility] 30 MG 11:38: nightly. Medical tablet 49 [place] mirtazapine 2020-0 Yes 30mg QD Take [address] [facility] (REMERON) 07-07 by mouth [facility] 30 MG 11:38: nightly. Medical tablet 49 [place] mirtazapine 0 Yes 30mg QD Take [address] [facility] (REMERON) 07-07 by mouth [facility] 30 MG 11:38: nightly. Medical tablet 49 [place] mirtazapine 0 Yes 30mg QD Take [address] [facility] (REMERON) 07-07 by mouth [facility] 30 MG 11:38: nightly. Medical tablet 49 [place] mirtazapine 2020-0 Yes 30mg QD Take [address] [facility] (REMERON) 07-07 by mouth [facility] 30 MG 11:38: nightly. Medical tablet 49 [place] mirtazapine 2020-0 Yes 30mg QD Take [address] [facility] (REMERON) -01 by mouth [facility] 30 MG 11:38: nightly. Medical tablet 49 [place] mirtazapine 2020-0 Yes 30mg QD Take [address] [facility] (REMERON) -01 by mouth [facility] 30 MG 11:38: nightly. Medical tablet 49 [place] mirtazapine 2020-0 Yes 30mg QD Take [address] [facility] (REMERON) -01 by mouth [facility] 30 MG 11:38: nightly. Medical tablet 49 [place] mirtazapine Yes 30mg QD Take [address] [facility] (REMERON) 9-01 by mouth [facility] 30 MG 11:38: nightly. [facility] tablet [facility] mirtazapine Yes 30mg QD Take [address] [facility] (REMERON) 9-01 by mouth [facility] 30 MG 11:38: nightly. Medical tablet 49 [facility] mirtazapine Yes 30mg QD Take [address] [facility] (REMERON) 9- by mouth [facility] 30 MG 11:38: nightly. Medical tablet 49 [facility] mirtazapine Yes 30mg QD Take [address] [facility] (REMERON) 9- by mouth [facility] 30 MG 11:38: nightly. Medical tablet 49 [facility] amLODIPine Yes 10mg QD Take [address] (NORVASC) 9- by mouth [facility] 10 MG 11:35: daily. Medical tablet 36 [place] aspirin 81 Yes 1{tbl} QD Take [address] [facility] MG EC 9- tablet by [facility] tablet 11:35: mouth Medical 36 daily. Center pantoprazol Yes 20mg QD Take [address] [facility] sodium 9- by mouth [facility] (PROTONIX 11:35: daily . Medic al ORAL) 36 [facility] polyethylen Yes 17g QD Take [address] [facility] glycol - by mouth [facility] (GLYCOLAX) 11:35: daily. Medic al 17 gram 36 Center packet clopidogreL Yes 75mg QD Take [address] [facility] (PLAVIX) 75 07-07 by mouth [facility] mg tablet 11:35: daily. Medica l 36 [facility] amLODIPine Yes 10mg QD Take [address] (NORVASC) 9-01 by mouth [facility] 10 MG 11:35: daily. Medical tablet 36 [facility] aspirin 81 Yes 1{tbl} QD Take [address] [facility] EC 9-01 tablet by [facility] tablet 11:35: mouth Medical [...] QD Take [address] [facility] MG EC 9-01 tablet by [facility] tablet 11:35: mouth Medical [...] mouth [facility] am[facility] 0 Yes 10mg QD Take [address] (NORVASC) 9-01 by mouth [facility] 10 MG 11:35: daily. Medical tablet 36 [facility] aspirin 81 0 Yes 1{tbl} QD Take [address] [facility] MG EC 9-01 tablet by [facility] tablet 11:35: mouth Medical [...] 11:35: daily. Medica l 36 Center amLODIPine 2020-0 Yes 10mg QD Take [address] (NORVASC) 9-01 [facility] 10 MG 11:35: daily. Medical tablet 36 [facility] aspirin 81 0 Yes 1{tbl} QD Take [address] [facility] MG EC 9-01 tablet by [facility] tablet 11:35: mouth Medical [...] mg tablet 11:35: daily. Medica l 36 [place] amLODIPine 0 Yes 10mg QD Take [address] (NORVASC) 9-01 by mouth [facility] 10 MG 11:35: daily. Medical tablet 36 [place] aspirin 81 Yes 1{tbl} QD Take [address] [facility] MG EC 9-01 tablet by [facility] tablet 11:35: mouth Medical 36 daily. [place] pantoprazol 0 Yes 20mg QD Take [address] [facility] sodium 9-01 by mouth [facility] (PROTONIX 11:35: daily . Medic al ORAL) 36 [place] polyethylen 0 Yes 17g QD Take [address] e glycol 9-01 by mouth [facility] (GLYCOLAX) 11:35: daily. Medic al 17 gram 36 Center packet clopidogreL 0 Yes 75mg QD Take [address] [facility] (PLAVIX) 75 9-01 by mouth [facility] mg tablet 11:35: daily. Medica l 36 [place] amLODIPine 0 Yes 10mg QD Take [address] (NORVASC) 9-01 by mouth [facility] 10 MG 11:35: daily. Medical tablet 36 [place] aspirin 81 0 Yes 1{tbl} QD Take [address] [facility] MG EC 9-01 tablet by [facility] tablet 11:35: mouth Medical [...] QD Take [address] [facility] MG EC 9-01 tablet by [facility] tablet 11:35: mouth Medical [...] mouth [facility]:35[facility] am[facility] 0 Yes 10mg QD Take [address] (NORVASC) 9-01 by mouth [facility] 10 MG 11:35: daily. Medical tablet 36 [facility] aspirin 81 0 Yes 1{tbl} QD Take [address] [facility] MG EC 9-01 tablet by [facility] tablet 11:35: mouth Medical [...] 11:35: daily. Medica l 36 Center amLODIPine 2020-0 Yes 10mg QD Take [address] (NORVASC) 9-01 by mouth [facility] 10 MG 11:35: daily. Medical tablet 36 [facility] aspirin 81 0 Yes 1{tbl} QD Take [address] [facility] MG EC 9-01 tablet by [facility] tablet 11:35: mouth Medical [...] mg tablet 11:35: daily. Medica l 36 [place] amLODIPine 0 Yes 10mg QD Take [address] (NORVASC) 9-01 by mouth [facility] 10 MG 11:35: daily. Medical tablet 36 [place] aspirin 81 Yes 1{tbl} QD Take [address] [facility] MG EC 9-01 tablet by [facility] tablet 11:35: mouth Medical 36 daily. [place] pantoprazol 0 Yes 20mg QD Take [address] [facility] sodium 9-01 by mouth [facility] (PROTONIX 11:35: daily . Medic al ORAL) 36 [place] polyethylen 0 Yes 17g QD Take [address] e glycol 9-01 by mouth [facility] (GLYCOLAX) 11:35: daily. Medic al 17 gram 36 Center packet clopidogreL 0 Yes 75mg QD Take [address] [facility] (PLAVIX) 75 9-01 by mouth [facility] mg tablet 11:35: daily. Medica l 36 [place] amLODIPine 0 Yes 10mg QD Take [address] (NORVASC) 9-01 by mouth [facility] 10 MG 11:35: daily. Medical tablet 36 [place] aspirin 81 0 Yes 1{tbl} QD Take [address] [facility] MG EC 9-01 tablet by [facility] tablet 11:35: mouth Medical [...] QD Take [address] [facility] MG EC 9-01 tablet by [facility] tablet 11:35: mouth Medical [...] mouth [facility] mg tablet 11:35: [facility] amLOD[facility]ine 0 Yes 10mg QD Take [address] (NORVASC) 9-01 by mouth [facility] 10 MG 11:35: daily. Medical tablet 36 [facility] aspirin 81 0 Yes 1{tbl} QD Take [address] [facility] MG EC 9-01 tablet by [facility] tablet 11:35: mouth Medical [...] 11:35: daily. Medica l 36 Center amLODIPine 2020-0 Yes 10mg QD Take [address] (NORVASC) 9-01 by mouth [facility] 10 MG 11:35: daily. Medical tablet 36 [facility] aspirin 81 0 Yes 1{tbl} QD Take [address] [facility] MG EC 9-01 tablet by [facility] tablet 11:35: mouth Medical [...] mg tablet 11:35: daily. Medica l 36 [place] amLODIPine 0 Yes 10mg QD Take [address] (NORVASC) 9-01 by mouth [facility] 10 MG 11:35: daily. Medical tablet 36 [place] aspirin 81 Yes 1{tbl} QD Take [address] [facility] MG EC 9-01 tablet by [facility] tablet 11:35: mouth Medical 36 daily. [place] pantoprazol 0 Yes 20mg QD Take [address] [facility] sodium 9-01 by mouth [facility] (PROTONIX 11:35: daily . Medic al ORAL) 36 [place] polyethylen 0 Yes 17g QD Take [address] e glycol 9-01 by mouth [facility] (GLYCOLAX) 11:35: daily. Medic al 17 gram 36 Center packet clopidogreL 0 Yes 75mg QD Take [address] [facility] (PLAVIX) 75 9-01 by mouth [facility] mg tablet 11:35: daily. Medica l 36 [place] amLODIPine 0 Yes 10mg QD Take [address] (NORVASC) 9-01 by mouth [facility] 10 MG 11:35: daily. Medical tablet 36 [place] aspirin 81 0 Yes 1{tbl} QD Take [address] [facility] MG EC 9-01 tablet by [facility] tablet 11:35: mouth Medical [...] mg tablet 11:35: daily. Medica l 36 [place] amLODIPine Yes 10mg QD Take [address] (NORVASC) 9- by mouth [facility] 10 MG 11:35: daily. Medical tablet 36 [facility] aspirin 81 Yes 1{tbl} QD Take [address] [facility] MG EC 07-07 tablet by [facility] tablet 11:35: mouth Medical 36 daily. Center pantoprazol Yes 20mg QD Take [address] [facility] sodium 9- by mouth [facility] (PROTONIX 11:35: daily . Medic al ORAL) 36 Center polyethylen Yes 17g QD Take [address] e glycol 9- by mouth [facility] (GLYCOLAX) 11:35: daily. Medic al 17 gram 36 [place] packet clopidogreL Yes 75mg QD Take [address] [facility] (PLAVIX) 75 9- by mouth [facility] mg tablet 11:35: daily. Medica 36 [place] Aspirin Yes [facility] (ASPIR-LOW) 8-25 College 81 MG 09:15: of tablet 11 Medicin e pantoprazol Yes 20mg Take 20 mg [facility] 8-25 by mouth [facility] (PROTONIX) 09:15: daily. of 20 MG 11 Medicin tablet e tramadol 2020- No 50mg Take 50 mg [facility] (ULTRAM) 50 -30 06-25 by mouth [facility] MG tablet 09:15: 00:00 every 6 of 07 :00 hours as Medicin needed for e Pain. acetaminoph 2020- No 1{tbl} Take 1 [facility] en-codeine -30 06-25 Tablet by [facility] (TYLENOL/CO 09:14: 00:00 mouth of DEINE #3) 49 :00 every 4 Medicin 300-30 MG hours as e per tablet needed. clonazepam Yes [facility] (KLONOPIN) 8-23 College 0.5 MG 00:00: of tablet 00 Medicin e mirtazapine 0 Yes [facility] (REMERON) 06-28 [facility] 15 MG [...] e mirtazapine 2021- No 30mg 30 mg. [facility] (REMERON) 06-28 02-04 [facility] 15 MG 00:00: 00:00 of tablet 00 :00 Medicin e clonazepam 2020- No [facility] (KLONOPIN) 06-28 10-13 [facility] 0.5 MG 00:00: 00:00 of tablet 00 :00 Medicin e acetaminoph Yes 1{tbl} Take 1 [facility] en-codeine -19 Tablet by Mina christopher (TYLENOL/CO 14:53: mouth of DEINE #3) 47 every 4 Medicin 300-30 MG hours as e per tablet needed. tramadol Yes 50mg Take 50 mg [facility] (ULTRAM) 50 8-19 by mouth Mina ege MG tablet 14:53: every 6 of 47 hours as Medicin needed for e Pain. Aspirin Yes [facility] (ASPIR-LOW) 8 [facility] 81 MG 14:53: of tablet 33 Medicin e pantoprazol 2021-0 Yes 20mg Take 20 mg [facility] e 8-19 by mouth [facility] (PROTONIX) 14:53: daily. of 20 MG 33 Medicin tablet e metoprolol 0 Yes [facility] 1 [facility] succ[facility]-17 [facility]T BY [facility] (TOPROL-XL) 00:00: MOUTH Medic al 100 MG 24 00 EVERY DAY Cente r hr tablet metoprolol 2020-0 Yes [facility]KE 1 [facility] succinate 8-17 TABLET BY [facility] (TOPROL-XL) 00:00: MOUTH Medic al 100 MG 24 00 EVERY DAY Cente r hr tablet metoprolol 2020-0 Yes TAKE 1 [facility] succinate 8-17 TABLET BY [facility] (TOPROL-XL) 00:00: MOUTH Medic al 100 MG 24 00 EVERY DAY Cente r hr tablet metoprolol 2020-0 Yes [facility]KE 1 [facility] succinate 8-17 TABLET BY [facility] (TOPROL-XL) 00:00: MOUTH Medic al 100 MG 24 00 EVERY DAY Cente r hr tablet metoprolol 2020-0 Yes TAKE 1 [facility] succinate 8-17 TABLET BY [facility] (TOPROL-XL) 00:00: MOUTH Medic al 100 MG 24 00 EVERY DAY Cente r hr tablet metoprolol 2020-0 Yes TAKE 1 [facility] succinate 8-17 TABLET BY [facility] (TOPROL-XL) 00:00: MOUTH Medic al 100 MG 24 00 EVERY DAY Cente r hr tablet metoprolol 2020-0 Yes [facility]KE 1 [facility] succinate 8-17 TABLET BY [facility] (TOPROL-XL) 00:00: MOUTH Medic al 100 MG 24 00 EVERY DAY Cente r hr tablet metoprolol 2020-0 Yes [facility]KE 1 [facility] succinate 8-17 TABLET BY [facility] (TOPROL-XL) 00:00: MOUTH Medic al 100 MG 24 00 EVERY DAY Cente r hr tablet metoprolol 2020-0 Yes TAKE 1 [facility] succinate 8-17 [facility]T [facility] (TOPROL-XL) 00:00: MOUTH Medic al 100 MG 24 00 EVERY DAY Cente r hr tablet metoprolol 2020-0 Yes TAKE 1 [facility] succinate 8-17 TABLET [facility] (TOPROL-XL) 00:00: MOUTH Medic al 100 MG 24 00 EVERY DAY Cente r hr tablet metoprolol 2020-0 Yes TAKE 1 [facility] succinate 8-17 TABLET [facility] (TOPROL-XL) 00:00: MOUTH Medic al 100 MG 24 00 EVERY DAY Cente r hr tablet metoprolol 0 Yes TAKE 1 [facility] succinate 8-17 TABLET [facility] (TOPROL-XL) 00:00: MOUTH Medic al 100 MG 24 00 EVERY DAY Cente r hr tablet metoprolol 2020-0 Yes TAKE 1 [facility] succinate 8-17 TABLET [facility] (TOPROL-XL) 00:00: MOUTH Medic al 100 MG 24 00 EVERY DAY Cente r hr tablet metoprolol 0 Yes TAKE 1 [facility] succinate 8-17 TABLET [facility] (TOPROL-XL) 00:00: MOUTH Medic al 100 MG 24 00 EVERY DAY Cente r hr tablet metoprolol 0 Yes TAKE 1 [facility] succinate 8-17 TABLET [facility] (TOPROL-XL) 00:00: MOUTH Medic al 100 MG 24 00 EVERY DAY Cente r hr tablet metoprolol 0 Yes TAKE 1 [facility] succ[facility] 8-17 [facility]T [facility] (TOPROL-XL) 00:00: MOUTH Medic al 100 MG 24 00 EVERY DAY Cente r hr tablet metoprolol 0 Yes TAKE 1 [facility] succinate 8-17 [facility] (TOPROL-XL) 00:00: MOUTH Medic al 100 MG 24 00 EVERY DAY Cente r hr tablet metoprolol 0 Yes TAKE 1 [facility] succ[facility] 8-17 [facility] (TOPROL-XL) 00:00: MOUTH Medic al 100 MG 24 00 EVERY DAY Cente r hr tablet atorvastati 0 2020- No TAKE [address] [facility] (LIPITOR) 8-17 09-15 TABLET BY Jackeline kes 40 MG 00:00: 00:00 MOUTH Medical tablet 00 :00 NIGHTLY Center atorvastati 2020-0 2020- No TAKE [address] [facility] (LIPITOR) 8-17 09-15 TABLET BY Jackeline kes 40 MG 00:00: [...] 0 2021- No TAKE 1 [facility] ([facility]) 06-10 TABLET BY Mina ege 10 MG 00:00: 00:00 MOUTH of tablet 00 :00 EVERY DAY Medicin e traMADoL 2020-0 Yes 50mg Take [address] [facility] (ULTRAM) 50 7-28 tablet (50 Jackeline kes mg tablet 00:00: mg total) Med ical 00 by mouth Center every 8 (eight) hours as needed for Pain. Max Daily Amount: 150 mg acetaminoph 2020-0 Yes 1{tbl} Take [address] [facility] en-codeine 7-28 tablet by Carl s (TYLENOL 00:00: mouth Medical #3) 300-30 00 every 4 Center mg per (four) tablet hours as needed for Pain. Max Daily Amount: 6 tablets traMADoL 2020-0 Yes 50mg Take [address] [facility] (ULTRAM) 50 7-28 tablet (50 Jackeline kes mg tablet 00:00: mg total) Med ical 00 by mouth Center every 8 (eight) hours as needed for Pain. Max Daily Amount: 150 mg acetaminoph 2020-0 Yes 1{tbl} Take [address] en-codeine 7-28 tablet by Carl s (TYLENOL 00:00: mouth Medical #3) 300-30 00 every 4 Center mg per (four) tablet hours as needed for Pain. Max Daily Amount: 6 tablets traMADoL 2020-0 Yes 50mg Take [address] [facility] (ULTRAM) 50 7-28 tablet (50 Jackeline kes mg tablet 00:00: mg total) Med ical 00 by mouth Center every 8 (eight) hours as needed for Pain. Max Daily Amount: 150 mg acetaminoph 2020-0 Yes 1{tbl} Take [address] en-codeine 7-28 tablet by Carl s (TYLENOL 00:00: mouth Medical #3) 300-30 00 every 4 Center mg per (four) tablet hours as needed for Pain. Max Daily Amount: 6 tablets traMADoL 2020-0 Yes 50mg Take [address] [facility] (ULTRAM) 50 7-28 tablet (50 Jackeline kes mg tablet 00:00: mg total) Med ical 00 by mouth Center every 8 (eight) hours as needed for Pain. Max Daily Amount: 150 mg acetaminoph 2021-0 Yes 1{tbl} Take [address] en-codeine 7-28 tablet by Jackelineke s (TYLENOL 00:00: mouth Medical #3) 300-30 00 every 4 Center mg per (four) tablet hours as needed for Pain. Max Daily Amount: 6 tablets traMADoL 2021-0 Yes 50mg Take [address] [facility] (ULTRAM) 50 7-28 tablet (50 Jackeline kes mg tablet 00:00: mg total) Med ical 00 by mouth Center every 8 (eight) hours as needed for Pain. Max Daily Amount: 150 mg acetaminoph 2021-0 Yes 1{tbl} Take [address] en-codeine 7-28 tablet by Carl s (TYLENOL 00:00: mouth Medical #3) 300-30 00 every 4 Center mg per (four) tablet hours as needed for Pain. Max Daily Amount: 6 tablets traMADoL 2021-0 Yes 50mg Take [address] [facility] (ULTRAM) 50 7-28 tablet (50 Jackeline kes mg tablet 00:00: mg total) Med ical 00 by mouth Center every 8 (eight) hours as needed for Pain. Max Daily Amount: 150 mg acetaminoph 2021-0 Yes 1{tbl} Take [address] en-codeine 7-28 tablet by Carl s (TYLENOL 00:00: mouth Medical #3) 300-30 00 every 4 Center mg per (four) tablet hours as needed for Pain. Max Daily Amount: 6 tablets traMADoL 2021-0 Yes 50mg Take [address] [facility] (ULTRAM) 50 7-28 tablet (50 Jackeline kes mg tablet 00:00: mg total) Med ical 00 by mouth Center every 8 (eight) hours as needed for Pain. Max Daily Amount: 150 mg acetaminoph 2021-0 Yes 1{tbl} Take [address] [facility] en-codeine 7-28 tablet by Carl s (TYLENOL 00:00: mouth Medical #3) 300-30 00 every 4 Center mg per (four) tablet hours as needed for Pain. Max Daily Amount: 6 tablets traMADoL 2021-0 Yes 50mg Take [address] [facility] (ULTRAM) 50 7-28 tablet (50 Jackeline kes mg tablet 00:00: mg total) Med ical 00 by mouth Center every 8 (eight) hours as needed for Pain. Max Daily Amount: 150 mg acetaminoph 2021-0 Yes 1{tbl} Take [address] en-codeine 7-28 tablet by Jackelineke s (TYLENOL 00:00: mouth Medical #3) 300-30 00 every 4 Center mg per (four) tablet hours as needed for Pain. Max Daily Amount: 6 tablets traMADoL 2021-0 Yes 50mg Take [address] [facility] (ULTRAM) 50 7-28 tablet (50 Jackeline kes mg tablet 00:00: mg total) Med ical 00 by mouth Center every 8 (eight) hours as needed for Pain. Max Daily Amount: 150 mg acetaminoph 2021-0 Yes 1{tbl} Take [address] en-codeine 7-28 tablet by Carl s (TYLENOL 00:00: mouth Medical #3) 300-30 00 every 4 Center mg per (four) tablet hours as needed for Pain. Max Daily Amount: 6 tablets traMADoL 2021-0 Yes 50mg Take [address] [facility] (ULTRAM) 50 7-28 tablet (50 Jackeline kes mg tablet 00:00: mg total) Med ical 00 by mouth Center every 8 (eight) hours as needed for Pain. Max Daily Amount: 150 mg acetaminoph 2021-0 Yes 1{tbl} Take [address] en-codeine 7-28 tablet by Carl s (TYLENOL 00:00: mouth Medical #3) 300-30 00 every 4 Center mg per (four) tablet hours as needed for Pain. Max Daily Amount: 6 tablets traMADoL 2021-0 Yes 50mg Take [address] [facility] (ULTRAM) 50 7-28 tablet (50 Jackeline kes mg tablet 00:00: mg total) Med ical 00 by mouth Center every 8 (eight) hours as needed for Pain. Max Daily Amount: 150 mg acetaminoph 2021-0 Yes 1{tbl} Take [address] en-codeine 7-28 tablet by Jackelineke s (TYLENOL 00:00: mouth Medical #3) 300-30 00 every 4 Center mg per (four) tablet hours as needed for Pain. Max Daily Amount: 6 tablets traMADoL 2021-0 Yes 50mg Take [address] [facility] (ULTRAM) 50 7-28 tablet (50 Jackeline kes mg tablet 00:00: mg total) Med ical 00 by mouth Center every 8 (eight) hours as needed for Pain. Max Daily Amount: 150 mg acetaminoph 2021-0 Yes 1{tbl} Take [address] en-codeine 7-28 tablet by Luke s (TYLENOL 00:00: mouth Medical #3) 300-30 00 every 4 Center mg per (four) tablet hours as needed for Pain. Max Daily Amount: 6 tablets traMADoL 2021-0 Yes 50mg Take [address] [facility] (ULTRAM) 50 7-28 tablet (50 Jackeline kes mg tablet 00:00: mg total) Med ical 00 by mouth Center every 8 (eight) hours as needed for Pain. Max Daily Amount: 150 mg acetaminoph 2021-0 Yes 1{tbl} Take [address] en-codeine 7-28 tablet by Luke s (TYLENOL 00:00: mouth Medical #3) 300-30 00 every 4 Center mg per (four) tablet hours as needed for Pain. Max Daily Amount: 6 tablets traMADoL 2021-0 Yes 50mg Take [address] [facility] (ULTRAM) 50 7-28 tablet (50 Jackeline kes mg tablet 00:00: mg total) Med ical 00 by mouth Center every 8 (eight) hours as needed for Pain. Max Daily Amount: 150 mg acetaminoph 2021-0 Yes 1{tbl} Take [address] en-codeine 7-28 tablet by Luke [facility] (TYLENOL 00:00: mouth Medical #3) 300-30 00 every 4 Center mg per (four) tablet hours as needed for Pain. Max Daily Amount: 6 tablets traMADoL 2021-0 Yes 50mg Take [address] [facility] (ULTRAM) 50 7-28 tablet (50 Jackeline kes mg tablet 00:00: mg total) Med ical 00 by mouth Center every 8 (eight) hours as needed for Pain. Max Daily Amount: 150 mg acetaminoph 2021-0 Yes 1{tbl} Take [address] en-codeine 7-28 tablet by Luke [facility] (TYLENOL 00:00: mouth Medical #3) 300-30 00 every 4 Center mg per (four) tablet hours as needed for Pain. Max Daily Amount: 6 tablets traMADoL 2021-0 Yes 50mg Take [address] [facility] (ULTRAM) [...] Pain. Max Daily Amount: 6 tablets traMADoL 2021-0 Yes 50mg Take [address] [facility] (ULTRAM) [...] Pain. Max Daily Amount: 6 tablets traMADoL 2021-0 Yes 50mg Take [address] [facility] (ULTRAM) 50 7-28 tablet (50 Jackeline kes mg tablet 00:00: mg total) Med ical 00 by mouth Center every 8 (eight) hours as needed for Pain. Max Daily Amount: 150 mg acetaminoph 1-0 Yes 1{tbl} Take [address] en-codeine 7-28 tablet by Carl castillo (TYLENOL 00:00: mouth Medical #3) 300-30 00 every 4 Center mg per (four) tablet hours as needed for Pain. Max Daily Amount: 6 tablets Aspirin 2020-0 Yes [facility] (ASPIR-LOW) 7-27 [place] 81 MG 14:58: of tablet 24 Medicin e pantoprazol 2020-0 Yes 20mg Take 20 mg [facility] e 7-27 by [facility] (PROTONIX) 14:58: daily. of 20 MG 24 Medicin tablet e gabapentin 2020-0 Yes 300mg Take 300 [facility] (NEURONTIN) 7-27 mg by [facility] 300 MG 14:58: mouth 3 of capsule 24 times Medicin daily. e acetaminoph 202-0 Yes 1{tbl} Take 1 [facility] en-codeine 7-27 Tablet by Mina ege (TYLENOL/CO 14:58: mouth of DEINE #3) 24 every 4 Medicin 300-30 MG hours as e per tablet needed. tramadol 0 Yes 50mg Take 50 mg [facility] (ULTRAM) 50 7-27 by mouth Mina ege MG tablet 14:58: every 6 of 24 hours as Medicin needed for e Pain. atorvastati 2020-0 Yes [id number] 40mg Take 1 [facility] n (LIPITOR) 7-27 Tablet by [facility] 40 MG 00:00: mouth of tablet 00 daily. Medicin e atorvastati 2020-0 Yes [id number] 40mg Take 1 [facility] (LIPITOR) 7-27 Tablet by [facility] 40 MG 00:00: mouth of tablet 00 daily. Medicin e atorvastati 0 Yes [id number] 40mg Take 1 [facility] (LIPITOR) 7-27 Tablet by [facility] 40 MG 00:00: mouth of tablet 00 daily. Medicin e metoprolol 0 Yes [id number] 50mg Take 1 [facility] (TOPROL-XL) 7-27 Tablet by [facility] 50 MG XL 00:00: mouth two of tablet 00 times Medicin daily. e atorvastati 0 Yes [id number] 40mg Take 1 [facility] (LIPITOR) 7-27 Tablet by [facility] 40 MG 00:00: mouth of tablet 00 daily. Medicin e metoprolol 2020-0 Yes [id number] 50mg Take 1 [facility] (TOPROL-XL) 7-27 Tablet by [facility] 50 MG XL 00:00: mouth two of tablet 00 times Medicin daily. e atorvastati 0 Yes [id number] 40mg Take 1 [facility] n (LIPITOR) 7-27 Tablet by [facility] 40 MG 00:00: mouth of tablet 00 daily. Medicin e metoprolol 0 Yes [id number] 50mg Take 1 [facility] (TOPROL-XL) 7-27 Tablet by [facility] 50 MG XL 00:00: mouth two of tablet 00 times Medicin daily. e atorvastati 2020-0 Yes [id number] 40mg Take 1 [facility] (LIPITOR) 7-27 Tablet by [facility] 40 MG 00:00: mouth of tablet 00 daily. Medicin e metoprolol 2020-0 Yes [id number] 50mg Take 1 [facility] (TOPROL-XL) 7-27 Tablet by [facility] 50 MG XL 00:00: mouth two of tablet 00 times Medicin daily. e atorvastati 2020-0 Yes [id number] 40mg Take 1 [facility] n (LIPITOR) 7-27 Tablet by [facility] 40 MG 00:00: mouth of tablet 00 daily. Medicin e metoprolol 2020-0 Yes [id number] 50mg Take 1 [facility] (TOPROL-XL) 7-27 Tablet by [facility] 50 MG XL 00:00: mouth two of tablet 00 times Medicin daily. e atorvastati 2020-0 Yes [id number] 40mg Take 1 [facility] n (LIPITOR) 7-27 Tablet by [facility] 40 MG 00:00: mouth of tablet 00 daily. Medicin e metoprolol 2020-0 Yes [id number] 50mg Take 1 [facility] (TOPROL-XL) 7-27 Tablet by [facility] 50 MG XL 00:00: mouth two of tablet 00 times Medicin daily. e atorvastati 2020-0 Yes [id number] 40mg Take 1 [facility] (LIPITOR) 7-27 Tablet by [facility] 40 MG 00:00: mouth of tablet 00 daily. Medicin e metoprolol 2020-0 Yes [id number] 50mg Take 1 [facility] (TOPROL-XL) 7-27 Tablet by [facility] 50 MG XL 00:00: mouth two of tablet 00 times Medicin daily. e atorvastati 2020-0 Yes [id number] 40mg Take 1 [facility] (LIPITOR) 7-27 Tablet by [facility] 40 MG 00:00: mouth of tablet 00 daily. Medicin e metoprolol 2020-0 Yes [id number] 50mg Take 1 [facility] (TOPROL-XL) 7-27 Tablet by [facility] 50 MG XL 00:00: mouth two of tablet 00 times Medicin daily. e atorvastati 2020-0 Yes [id number] 40mg Take 1 [facility] (LIPITOR) 7-27 Tablet by [facility] 40 MG 00:00: mouth of tablet 00 daily. Medicin e metoprolol 2020-0 Yes [id number] 50mg Take 1 [facility] (TOPROL-XL) 7-27 Tablet by [facility] 50 MG XL 00:00: mouth two of tablet 00 times Medicin daily. e atorvastati 2020-0 Yes [id number] 40mg Take 1 [facility] (LIPITOR) 7-27 Tablet by [facility] 40 MG 00:00: mouth of tablet 00 daily. Medicin e metoprolol 2020-0 Yes [id number] 50mg Take 1 [facility] (TOPROL-XL) 7-27 Tablet by [facility] 50 MG XL 00:00: mouth two of tablet 00 times Medicin daily. e atorvastati 2020-0 Yes [id number] 40mg Take 1 [facility] n (LIPITOR) 7-27 Tablet by [facility] 40 MG 00:00: mouth of tablet 00 daily. Medicin e metoprolol 2020-0 Yes [id number] 50mg Take 1 [facility] (TOPROL-XL) 7-27 Tablet by [facility] 50 MG XL 00:00: mouth two of tablet 00 times Medicin daily. e atorvastati 0 Yes [id number] 40mg Take 1 [facility] (LIPITOR) 7-27 Tablet by [facility] 40 MG 00:00: mouth of tablet 00 daily. Medicin e metoprolol 2020-0 Yes [id number] 50mg Take 1 [facility] (TOPROL-XL) 7-27 Tablet by [facility] 50 MG XL 00:00: mouth two of tablet 00 times Medicin daily. e atorvastati 2020-0 Yes [id number] 40mg Take 1 [facility] n (LIPITOR) 7-27 Tablet by [facility] 40 MG 00:00: mouth of tablet 00 daily. Medicin e metoprolol 2020-0 Yes [id number] 50mg Take 1 [facility] (TOPROL-XL) 7-27 Tablet by [facility] 50 MG XL 00:00: mouth two of tablet 00 times Medicin daily. e atorvastati 2020-0 Yes [id number] 40mg Take 1 [facility] n (LIPITOR) 7-27 Tablet by [facility] 40 MG 00:00: mouth of tablet 00 daily. Medicin e atorvastati 2020-0 Yes [id number] 40mg Take 1 [facility] (LIPITOR) 7-27 Tablet by [facility] 40 MG 00:00: mouth of tablet 00 daily. Medicin e atorvastati 2021- No [id number] 40mg Take 1 [facility] n (LIPITOR) 06-01 Tablet by [facility] 40 MG 00:00: 00:00 mouth of tablet 00 :00 daily. Medicin e metoprolol 2020- No [id number] TAKE 1 [facility] (TOPROL-XL) 05-14 TABLET BY [facility] 50 [...] 300 [facility] (NEURONTIN) 04-14 mg by [facility] 300 MG 15:11: mouth 3 of capsule 22 times Medicin daily. e Aspirin Yes [facility] (ASPIR-LOW) 04-14 [facility] 81 MG 15:10: of tablet 47 Medicin e pantoprazol Yes 20mg Take 20 mg [facility] e 04-14 by mouth [facility] (PROTONIX) 15:10: daily. of 20 MG 47 Medicin tablet e mirtazapine 2020- No 1{tbl} Take 1 [facility] (REMERON) 04-14 Tablet by Mina christopher 7.5 MG 15:10: 00:00 mouth of tablet 17 :00 daily. Medicin e busPIRone 2020- No 1{tbl} Take 1 [facility] (BUSPAR) 04-14 Tablet by Danii gan 7.5 MG 15:09: 00:00 mouth of tablet 47 :00 daily. Medicin e clopidogrel 2020- No 75mg Take 1 [facility] (PLAVIX) 75 04-02-27 Tablet by [facility] MG Tablet 00:00: 04:59 mouth of 00 :00 daily for Medicin 90 doses. e clopidogrel 2020- No 75mg Take 1 [facility] (PLAVIX) 75 5-28 08-27 Tablet by [facility] MG Tablet 00:00: 04:59 mouth of 00 :00 daily for Medicin 90 doses. e clopidogrel 2020- No 75mg Take 1 [facility] (PLAVIX) 75 -03 07- Tablet by [facility] MG Tablet 00:00: 04:59 mouth of 00 :00 daily for Medicin 90 doses. e clopidogrel 2020- No 75mg Take 1 [facility] (PLAVIX) 75 -28 -27 Tablet by [facility] MG Tablet 00:00: 04:59 mouth of 00 :00 daily for Medicin 90 doses. e clopidogrel 2020- No 75mg Take 1 [facility] (PLAVIX) 75 -03 07-27 Tablet by [facility] MG Tablet 00:00: 04:59 mouth of 00 :00 daily for Medicin 90 doses. e Aspirin Yes [facility] (ASPIR-LOW) 4-28 [facility] 81 MG 17:15: of tablet 19 Medicin e pantoprazol Yes 20mg Take 20 mg [facility] e 4-28 by mouth [facility] [...] tablet 19 daily. Medicin e Aspirin Yes [facility] (ASPIR-LOW) 4-28 [facility] 81 MG 12:15: of tablet 19 Medicin e pantoprazol Yes 20mg Take 20 [...] tablet 19 daily. Medicin e meloxicam Yes [id number] 15mg Take 1 [facility] (MOBIC) 15 4-28 Tablet by Mina ege MG tablet 00:00: mouth of 00 daily. Medicin e meloxicam 2020-0 Yes [id number] 15mg Take 1 [facility] (MOBIC) 15 4-28 Tablet by Mina ege MG tablet 00:00: mouth of 00 daily. Medicin e meloxicam 2020-0 2021- No [id number] 15mg Take 1 [facility] (MOBIC) 15 4-28 06-09 Tablet by [facility] MG tablet 00:00: 00:00 mouth of 00 :00 daily. Medicin e levofloxaci 2020-0 2020- No [id number] 500mg Take 1 [facility] n 4-28 05-13 [facility] 04:59 mouth of 500 MG 00 :00 daily for Medicin tablet 14 days. e Bupivicaine Bupivicaine 0 No 2.5mg [facility] Good Thunder 4-15 Spirit 00:00: - CHI 00 [facility] Kalpeshalog Kenalog 0 No 40mg Common (Triamcinol (Triamcinol 4-15 S pirit one) one) 00:00: - CHI 00 [facility] Bupivicaine Bupivicaine 2020-0 No 2.5mg [facility] Good Thunder 4-15 Spirit 00:00: - CHI 00 [facility] Kenalog Kenalog 2020-0 No 40mg [facility] (Triamcinol (Triamcinol 4-15 S pirit one) one) 00:00: - CHI 00 [facility] Bupivicaine Bupivicaine 2020-0 No Common [facility] [place] Good Thunder 4-15 Spirit 00:00: - CHI 00 [facility] Kenalog Kenalog 2020-0 No 40mg [facility] (Triamcinol (Triamcinol 4-15 S pirit one) one) 00:00: - CHI 00 [facility] Bupivicaine Bupivicaine 2020-0 No Common [facility] Good Thunder 4-15 Spirit 00:00: - CHI 00 [facility] Kenalog Kenalog 2020-0 No 40mg [facility] (Triamcinol (Triamcinol 4-15 S pirit one) one) 00:00: - CHI 00 [facility] Bupivicaine Bupivicaine 2020-0 No Common [facility] [place] Good Thunder 4-15 Spirit 00:00: - CHI 00 [facility] Kenalog Kenalog 2020-0 No 40mg [facility] (Triamcinol (Triamcinol 4-15 S pirit one) one) 00:00: - CHI 00 [facility] Bupivicaine Bupivicaine 2020-0 No 2.5mg [facility] Good Thunder 4-15 [facility] 00:00: - CHI 00 [facility] Kenalog Kenalog 2020-0 No 40mg [facility] (Triamcinol (Triamcinol 4-15 S pirit one) one) 00:00: - CHI 00 [facility] Bupivicaine Bupivicaine 2020-0 No 2.5mg [facility] Good Thunder 4-15 Spirit 00:00: - CHI 00 [facility] Kenalog Kenalog 2020-0 No 40mg [facility] (Triamcinol (Triamcinol 4-15 S pirit one) one) 00:00: - CHI 00 [facility] Bupivicaine Bupivicaine 2020-0 No 2.5mg [facility] Good Thunder 4-15 Spirit 00:00: - CHI 00 [facility] Kenalog Kenalog 2020-0 No 40mg [facility] (Triamcinol (Triamcinol 4-15 S pirit one) one) 00:00: - CHI 00 [facility] Bupivicaine Bupivicaine 2020-0 No 2.5mg [facility] [place] 4-15 [facility] 00:00: - CHI 00 [facility] Kenalog Kenalog 2020-0 No 40mg [facility] (Triamcinol (Triamcinol 4-15 S pirit one) one) 00:00: - CHI 00 [facility] Bupivicaine Bupivicaine 2020-0 No 2.5mg [facility] Good Thunder 4-15 Spirit 00:00: - CHI 00 [facility] Kenalog Kenalog 2020-0 No 40mg [facility] (Triamcinol (Triamcinol 4-15 S pirit one) one) 00:00: - CHI 00 [facility] Bupivicaine Bupivicaine 2020-0 No 2.5mg [facility] Good [place] 4-15 Spirit 00:00: - CHI 00 [facility] Kenalog Kenalog 0 No 40mg [facility] (Triamcinol (Triamcinol 4-15 S pirit one) one) 00:00: - CHI 00 [facility] Bupivicaine Bupivicaine 2020-0 No 2.5mg [facility] Good [place] 4-15 Spirit 00:00: - CHI [facility] Kenalog Kenalog 0 No 40mg [facility] (Triamcinol (Triamcinol 4-15 S pirit one) one) 00:00: - CHI 00 [facility] Bupivicaine Bupivicaine 0 No 2.5mg [facility] Good [place] 4-15 Spirit 00:00: - CHI 00 [facility] Kenalog Kenalog 0 No 40mg [facility] (Triamcinol (Triamcinol 4-15 S pirit one) one) 00:00: - CHI 00 [facility] Bupivicaine Bupivicaine 2020-0 No 2.5mg [facility] Good Thunder 4-15 Spirit 00:00: - CHI 00 [facility] Kenalog Kenalog 0 No 40mg [facility] (Triamcinol (Triamcinol 4-15 S pirit one) one) 00:00: - CHI 00 [facility] Bupivicaine Bupivicaine 2020-0 No 2.5mg [facility] [place] 4-15 [facility] 00:00: - CHI 00 [facility] Kenalog Kenalog 0 No 40mg [facility] (Triamcinol (Triamcinol 4-15 S pirit one) one) 00:00: - CHI 00 [facility] Bupivicaine Bupivicaine 0 No 2.5mg [facility] Good Thunder 4-15 Spirit 00:00: - CHI 00 [facility] Kenalog Kenalog 0 No 40mg [facility] (Triamcinol (Triamcinol 4-15 S pirit one) one) 00:00: - CHI 00 [facility] Aspirin 0 Yes [facility] (ASPIR-LOW) 4-13 [facility] 81 MG 14:34: of tablet 32 Medicin e pantoprazol 0 Yes 20mg Take 20 mg [facility] e 4-13 by mouth [facility] (PROTONIX) 14:34: daily. of 20 MG 32 Medicin tablet e metoprolol Yes [id number] 50mg Take 1 [facility] (TOPROL-XL) 4-13 Tablet by [facility] 50 MG XL 00:00: mouth of tablet 00 daily. Medicin e metoprolol 0 Yes [id number] 50mg Take 1 [facility] (TOPROL-XL) 4-13 Tablet by [facility] 50 MG XL 00:00: mouth of tablet 00 daily. Medicin e metoprolol 0 Yes [id number] 50mg Take 1 [facility] (TOPROL-XL) 4-13 Tablet by [facility] 50 MG XL 00:00: mouth of tablet 00 daily. Medicin e metoprolol Yes [id number] 50mg Take 1 [facility] (TOPROL-XL) 4-13 Tablet by [facility] 50 MG XL 00:00: mouth of tablet 00 daily. Medicin e clopidogrel 2021- No 75mg Take 75 mg [facility] (PLAVIX) 75 01-08 03-06 by mouth. [facility] MG Tablet 00:00: 05:59 of 00 :00 Medicin e clopidogrel 2021- No 75mg Take 75 mg [facility] (PLAVIX) 75 01-08 03-06 by mouth. [facility]lege MG Tablet 00:00: 05:59 of 00 :00 Medicin e topiramate Yes 1{tbl} Take 1 [facility] (TOPAMAX) 2-25 Tablet by Colle ge 50 MG 00:00: mouth of tablet 00 daily. Medicin e topiramate Yes 1{tbl} Take 1 [facility] (TOPAMAX) 2-25 Tablet by Colle ge 50 MG 00:00: mouth of tablet 00 daily. Medicin e topiramate 2020-2020- No 1{tbl} Take 1 [facility] (TOPAMAX) 2-25 06-09 Tablet by Mina ege 50 MG 00:00: 00:00 mouth of tablet 00 :00 daily. Medicin e Aspirin 0 Yes [facility] (ASPIR-LOW) 2- [facility] 81 MG 15:45: of tablet 46 Medicin e Aspirin Yes [facility] (ASPIR-LOW) 2- College 81 MG [...] Medicin e atorvastati 2020- No TAKE 1 [facility] n (LIPITOR) 1-19 04-13 TABLET BY [facility]lege 10 MG 00:00: 00:00 MOUTH of tablet 00 :00 EVERY DAY Medicin e losartan Yes TAKE 1 [facility] (COZAAR) 1-14 TABLET BY Colleg e 100 MG 00:00: MOUTH of tablet 00 EVERY DAY Medicin e losartan Yes TAKE 1 [facility] (COZAAR) 1-14 TABLET BY [facility] e 100 MG 00:00: MOUTH of tablet 00 EVERY DAY Medicin e losartan Yes TAKE 1 [facility] (COZAAR) 1-14 TABLET BY [facility] e 100 MG 00:00: MOUTH of tablet 00 EVERY DAY Medicin e losartan Yes TAKE 1 [facility] (COZAAR) 1-14 TABLET BY [facility] e 100 MG 00:00: MOUTH of tablet 00 EVERY DAY Medicin e losartan Yes TAKE 1 [facility] (COZAAR) 1-14 TABLET BY [facility] e 100 MG 00:00: MOUTH of tablet 00 EVERY DAY Medicin e losartan Yes TAKE 1 [facility] (COZAAR) 1-14 TABLET BY [facility] e 100 MG 00:00: MOUTH of tablet 00 EVERY DAY Medicin e losartan Yes TAKE 1 [facility] (COZAAR) 1-14 TABLET BY [facility] 100 MG 00:00: MOUTH of tablet 00 EVERY DAY Medicin e losartan 2020-0 Yes TAKE 1 [facility] (COZAAR) 1-14 TABLET BY [facility] 100 MG 00:00: MOUTH of tablet 00 EVERY DAY Medicin e losartan 2020-0 Yes TAKE 1 [facility] (COZAAR) 1-14 TABLET BY [facility] 100 MG 00:00: MOUTH of tablet 00 EVERY DAY Medicin e losartan 0 Yes TAKE 1 [facility] (COZAAR) 1-14 TABLET BY [facility] 100 MG 00:00: MOUTH of tablet 00 EVERY DAY Medicin e losartan 0 Yes TAKE 1 [facility] (COZAAR) 1-14 TABLET BY [facility] 100 MG 00:00: MOUTH of tablet 00 EVERY DAY Medicin e losartan 2020-0 Yes TAKE 1 [facility] (COZAAR) 1-14 TABLET BY [facility] 100 MG 00:00: MOUTH of tablet 00 EVERY DAY Medicin e losartan 2020-0 Yes TAKE 1 [facility] (COZAAR) 1-14 TABLET BY [facility] 100 MG 00:00: MOUTH of tablet 00 EVERY DAY Medicin e losartan 2020-0 Yes TAKE 1 [facility] (COZAAR) 1-14 TABLET BY [facility] 100 MG 00:00: MOUTH of tablet 00 EVERY DAY Medicin e losartan 2020-0 Yes TAKE 1 [facility] (COZAAR) 1-14 TABLET BY [facility] 100 MG 00:00: MOUTH of tablet 00 EVERY DAY Medicin e losartan 2020-0 Yes TAKE 1 [facility] (COZAAR) 1-14 TABLET BY Colleg [...] Medicin e losartan 2020-0 Yes TAKE 1 [facility] (COZAAR) 1-14 TABLET BY [facility] e 100 MG 00:00: MOUTH of tablet 00 EVERY DAY Medicin e losartan 2020-0 Yes TAKE 1 [facility] (COZAAR) 1-14 TABLET BY [facility] 100 MG 00:00: MOUTH of tablet 00 EVERY DAY Medicin e losartan 0 Yes TAKE 1 [facility] (COZAAR) 1-14 TABLET BY [facility] 100 MG 00:00: MOUTH of tablet 00 EVERY DAY Medicin e losartan 0 Yes TAKE 1 [facility] (COZAAR) 1-14 TABLET BY [facility] 100 MG 00:00: MOUTH of tablet 00 EVERY DAY Medicin e losartan 0 Yes TAKE 1 [facility] (COZAAR) 1-14 TABLET BY [facility] 100 MG 00:00: MOUTH of tablet 00 EVERY DAY Medicin e losartan 0 Yes TAKE 1 [facility] (COZAAR) 1-14 TABLET BY [facility] 100 MG 00:00: MOUTH of tablet 00 EVERY DAY Medicin e losartan 0 2021- No TAKE 1 [facility] (COZAAR) 1-14 06- TABLET BY Col[facility] 100 MG 00:00: 00:00 MOUTH of tablet 00 :00 EVERY DAY Medicin e cyclobenzap Yes 1{tbl} Take [address] [facility] by [facility] (FLEXERIL) 00:00: mouth Medica [facility] 10 MG 00 every Center tablet night as needed for Muscle spasms . cyclobenzap Yes 1{tbl} Take [address] [facility] [address] [facility] 1-13 tablet by [facility] (FLEXERIL) 00:00: mouth Medica l 10 MG 00 every Center tablet night as needed for Muscle spasms . cyclobenzap Yes 1{tbl} Take [address] [facility] 1-13 tablet by [facility] (FLEXERIL) 00:00: mouth Medica l 10 MG 00 every Center tablet night as needed for Muscle spasms . cyclobenzap Yes 1{tbl} Take [address] [facility] [address] [facility] 1-13 tablet by [facility] (FLEXERIL) 00:00: mouth Medica l 10 MG 00 every Center tablet night as needed for Muscle spasms . cyclobenzap Yes 1{tbl} Take [address] [facility] 1-13 tablet by [facility] (FLEXERIL) 00:00: mouth Medica l 10 MG 00 every Center tablet night as needed for Muscle spasms . cyclobenzap Yes 1{tbl} Take [address] [facility] [address] [facility] 1-13 tablet by [facility] (FLEXERIL) 00:00: mouth Medica l 10 MG 00 every Center tablet night as needed for Muscle spasms . cyclobenzap 0 Yes 1{tbl} Take [address] [facility] [address] [facility] 1-13 tablet by [facility] (FLEXERIL) 00:00: mouth Medica l 10 MG 00 every Center tablet night as needed for Muscle spasms . cyclobenzap Yes 1{tbl} Take [address] [facility] 1-13 tablet by [facility] (FLEXERIL) 00:00: mouth Medica l 10 MG 00 every Center tablet night as needed for Muscle spasms . cyclobenzap Yes 1{tbl} Take [address] [facility] [address] [facility] 1-13 tablet by [facility] (FLEXERIL) 00:00: mouth Medica l 10 MG 00 every Center tablet night as needed for Muscle spasms . cyclobenzap Yes 1{tbl} Take [address] [facility] 1-13 tablet by [facility] (FLEXERIL) 00:00: mouth Medica l 10 MG 00 every Center tablet night as needed for Muscle spasms . cyclobenzap Yes 1{tbl} Take [address] [facility] 1-13 tablet by [facility] (FLEXERIL) 00:00: mouth Medica l 10 MG 00 every Center tablet night as needed for Muscle spasms . cyclobenzap Yes 1{tbl} Take [address] [facility] 1-13 tablet by [facility] (FLEXERIL) 00:00: mouth Medica l 10 MG 00 every Center tablet night as needed for Muscle spasms . cyclobenzap 0 Yes 1{tbl} Take [address] [facility] 1-13 tablet by [facility] (FLEXERIL) 00:00: mouth Medica l 10 MG 00 every Center tablet night as needed for Muscle spasms . cyclobenzap 0 Yes 1{tbl} Take [address] [facility] 1-13 tablet by [facility] (FLEXERIL) 00:00: mouth Medica l 10 MG 00 every Center tablet night as needed for Muscle spasms . cyclobenzap Yes 1{tbl} Take [address] [facility] 1-13 tablet by [facility] (FLEXERIL) 00:00: mouth Medica l 10 MG 00 every Center tablet night as needed for Muscle spasms . cyclobenzap 2021-0 Yes 1{tbl} Take [address] [facility] 1-13 tablet by [facility] (FLEXERIL) 00:00: mouth Medica l 10 MG 00 every Center tablet night as needed for Muscle spasms . cyclobenzap 2021-0 Yes 1{tbl} Take [address] [facility] 1-13 tablet by [facility] (FLEXERIL) 00:00: mouth Medica l 10 MG 00 every Center tablet night as needed for Muscle spasms . cyclobenzap 2021-0 Yes TAKE 1 [facility] 1-13 TABLET BY [facility] (FLEXERIL) 00:00: MOUTH of 10 MG 00 THREE Medicin tablet TIMES A e DAY NEEDED cyclobenzap 2021-0 Yes TAKE 1 [facility] 1-13 TABLET BY [facility] (FLEXERIL) 00:00: MOUTH of 10 MG 00 THREE Medicin tablet TIMES A e DAY NEEDED cyclobenzap 2021-0 Yes TAKE 1 [facility] 1-13 TABLET BY [facility] (FLEXERIL) 00:00: MOUTH of 10 MG 00 THREE Medicin tablet TIMES A e DAY NEEDED cyclobenzap 2021-0 Yes TAKE 1 [facility] 1-13 TABLET BY [facility] (FLEXERIL) 00:00: MOUTH of 10 MG 00 THREE Medicin tablet TIMES A e DAY NEEDED cyclobenzap 2021-0 Yes TAKE 1 [facility] 1-13 TABLET BY [facility] (FLEXERIL) 00:00: MOUTH of 10 MG 00 [...] 1 [facility] 1-13 TABLET BY [facility] (FLEXERIL) 00:00: MOUTH of 10 MG 00 THREE Medicin tablet TIMES A e DAY NEEDED cyclobenzap 2020-0 Yes TAKE 1 [facility] 1-13 TABLET BY [facility] (FLEXERIL) 00:00: MOUTH of 10 MG 00 THREE Medicin tablet TIMES A e DAY NEEDED cyclobenzap 2020-0 Yes 1{tbl} Take [address] [facility] 1-13 tablet by [facility] mouth Medica l 10 MG 00 every Center tablet night as needed for Muscle spasms . cyclobenzap 2020-0 2020- No TAKE 1 [facility] 1-13 10-13 TABLET [facility] 00:00: 00:00 MOUTH of 10 MG 00 :00 THREE Medicin tablet TIMES A e DAY NEEDED magnesium 2020-0 Yes TAKE 1 [facility] oxide 1-04 TABLET BY [facility] ([facility]) 00:00: MOUTH of 400 MG 00 EVERY DAY Medicin tablet e magnesium 2020-0 Yes TAKE 1 [facility] oxide 1-04 TABLET BY [facility] (MAG-OX) 00:00: MOUTH of 400 MG 00 EVERY DAY Medicin tablet e magnesium 2020-0 Yes TAKE 1 [facility] oxide 1-04 TABLET BY [facility] (MAG-OX) 00:00: MOUTH of 400 MG 00 EVERY DAY Medicin tablet e magnesium 2020-0 Yes TAKE 1 [facility] oxide 1-04 TABLET BY [facility] (MAG-OX) 00:00: MOUTH of 400 MG 00 EVERY DAY Medicin tablet e magnesium 2020-0 Yes TAKE 1 [facility] oxide 1-04 TABLET BY [facility] (MAG-OX) 00:00: MOUTH of 400 MG 00 EVERY DAY Medicin tablet e magnesium 2020-0 Yes TAKE 1 [facility] oxide 1-04 TABLET BY [facility] (MAG-OX) 00:00: MOUTH of 400 MG 00 EVERY DAY Medicin tablet e magnesium 1-0 2020- No TAKE 1 [facility] oxide 1-04 06-09 TABLET BY [facility] (MAG-OX) 00:00: 00:00 MOUTH of 400 MG 00 :00 EVERY DAY Medicin tablet e omeprazole 2019- Yes TAKE 1 [facility] (PRILOSEC) 2-29 [...] No 20mg Take 20 mg [facility] (PRILOSEC) 2-29 06-09 by mouth [facility] 20 MG 00:00: 00:00 daily. of capsule 00 :00 Medicin e omeprazole 2019-11- No TAKE 1 [facility] (PRILOSEC) 2- 04-13 CAPSULE BY [facility] 20 MG 00:00: 00:00 MOUTH of capsule 00 :00 EVERY DAY Medicin e lactulose 2019-11 Yes TAKE BY [facility] (CHRONULAC) 1 MOUTH 60 [facility] 10 GM/15ML 00:00: MILLILIGTE o f solution 00 R EVERY Medicin NIGHT e lactulose 2019-11 Yes TAKE BY [facility] (CHRONULAC) 1-24 MOUTH 60 [facility] 10 GM/15ML 00:00: MILLILIGTE o f solution 00 R EVERY Medicin NIGHT e lactulose 2019-11 Yes TAKE BY [facility] (CHRONULAC) 124 MOUTH 60 [facility] e[facility] 10 GM/15ML 00:00: MILLILIGTE o f solution 00 R EVERY Medicin NIGHT e lactulose 2019-11 Yes TAKE BY [facility] (CHRONULAC) 1-24 MOUTH 60 [facility] e[facility] 10 GM/15ML 00:00: MILLILIGTE o f solution 00 R EVERY Medicin NIGHT e lactulose 2019-11- No TAKE BY [facility] (CHRONULAC) 11-29 04-28 MOUTH 60 [facility] 10 GM/15ML 00:00: 00:00 MILLILIGTE of solution 00 :00 R EVERY Medicin NIGHT e omeprazole 2020-1 Yes 40mg Take 40 [...] tablet 14 Medicin e Aspirin 2020-1 Yes [facility] (ASPIR-LOW) 0- College 81 MG 19:11: of tablet 14 Medicin e methylPREDN methylPREDN 2020-0 No methylPRED ISolone 4 ISolone 4 06-01 NISolone 4 MG MG 00:00: MG 00 methylPREDN methylPREDN 2020-0 No methylPRED ISolone 4 ISolone 4 06-01 NISolone 4 MG MG 00:00: MG 00 methylPREDN methylPREDN 2020-0 No methylPRED ISolone 4 ISolone 4 06-01 NISolone 4 MG MG 00:00: MG 00 methylPREDN methylPREDN 2020-0 No methylPRED ISolone 4 ISolone 4 06-01 NISolone 4 MG MG 00:00: MG 00 methylPREDN methylPREDN 2020-0 No methylPRED ISolone 4 ISolone 4 06-01 NISolone 4 MG MG 00:00: MG 00 methylPREDN methylPREDN 2020-0 No methylPRED ISolone 4 ISolone 4 06-01 NISolone 4 MG MG 00:00: MG 00 methylPREDN methylPREDN 2020-0 No methylPRED ISolone 4 ISolone 4 06-01 NISolone 4 MG MG 00:00: MG 00 methylPREDN methylPREDN 2020-0 No methylPRED ISolone 4 ISolone 4 -27 NISolone 4 MG MG 00:00: MG 00 methylPREDN methylPREDN 2020-0 No methylPRED ISolone 4 ISolone 4 -27 NISolone 4 MG MG 00:00: MG 00 methylPREDN methylPREDN 2020-0 No methylPRED ISolone 4 ISolone 4 - NISolone 4 MG MG 00:00: MG 00 methylPREDN methylPREDN 2020-0 No methylPRED ISolone 4 ISolone 4 06-01 NISolone 4 MG MG 00:00: MG 00 methylPREDN methylPREDN 2020-0 No methylPRED ISolone 4 ISolone 4 06-01 NISolone 4 MG MG 00:00: MG 00 methylPREDN methylPREDN 2020-0 No methylPRED ISolone 4 ISolone 4 06-01 NISolone 4 MG MG 00:00: MG 00 methylPREDN methylPREDN 2020-0 No methylPRED ISolone 4 ISolone 4 06-01 NISolone 4 MG MG 00:00: MG 00 methylPREDN methylPREDN 2020-0 No methylPRED ISolone 4 ISolone 4 06-01 NISolone 4 MG MG 00:00: MG 00 methylPREDN methylPREDN 2020-0 No methylPRED ISolone 4 ISolone 4 06-01 NISolone 4 MG MG 00:00: MG 00 methylPREDN methylPREDN 2020-0 No methylPRED ISolone 4 ISolone 4 06-01 NISolone 4 MG MG 00:00: MG 00 methylPREDN methylPREDN 2020-0 No methylPRED ISolone 4 ISolone 4 06-01 NISolone 4 MG MG 00:00: MG 00 omeprazole 2020-0 Yes 40mg Take 40 [...] 14:47: of capsule 31 Medicin e atorvastati 2018-1 Yes [id number] 20mg Take 1 Tab [facility] n (LIPITOR) 2-18 by mouth [facility] 20 MG 00:00: daily. of tablet 00 Medicin e atorvastati 2018-11 Yes [id number] 20mg Take 1 Tab [facility] n (LIPITOR) 2-18 by mouth [facility] 20 MG 00:00: daily. of tablet 00 Medicin e atorvastati 2018-11 Yes [id number] 20mg Take 1 Tab [facility] n (LIPITOR) 2-18 by mouth [facility] 20 MG 00:00: daily. of tablet 00 Medicin e atorvastati 2018-11 Yes [id number] 20mg Take 1 Tab [facility] n (LIPITOR) 2-18 by mouth [facility] 20 MG 00:00: daily. of tablet 00 Medicin e atorvastati 2018-11 Yes [id number] 20mg Take 1 Tab [facility] n (LIPITOR) 2-18 by mouth [facility] 20 MG 00:00: daily. of tablet 00 Medicin e atorvastati 2018-11 Yes [id number] 20mg Take 1 Tab [facility] (LIPITOR) 2-18 by mouth [facility] 20 MG 00:00: daily. of tablet 00 Medicin e atorvastati 2018-11 Yes [id number] 20mg Take 1 Tab [facility] n (LIPITOR) 2-18 by mouth [facility] 20 MG 00:00: daily. of tablet 00 Medicin e atorvastati 2018-11 Yes [id number] 20mg Take 1 Tab [facility] (LIPITOR) 2-18 by mouth [facility] 20 MG 00:00: daily. of tablet 00 Medicin e atorvastati 2018-11 Yes [id number] 20mg Take 1 Tab [facility] n (LIPITOR) 2-18 by mouth [facility] 20 MG 00:00: daily. of tablet 00 Medicin e atorvastati 2018-11 Yes [id number] 20mg Take 1 Tab [facility] n (LIPITOR) 2-18 by mouth [facility] 20 MG 00:00: daily. of tablet 00 Medicin e atorvastati 2018-11 Yes [id number] 20mg Take 1 Tab Gamaliel n (LIPITOR) 2-18 by mouth Mina ege 20 MG 00:00: daily. of tablet Medicin e atorvastati 2018-11- No [id number] 20mg Take 1 Tab Gamaliel n (LIPITOR) 2-18 27 by mouth [facility] 20 MG 00:00: 00:00 daily. of tablet 00 :00 Medicin e atorvastati 2018-11 Yes 10mg Take 10 mg Gamaliel n (LIPITOR) 0-11 by mouth. Col [facility]ge 10 MG 18:00: of tablet 28 Medicin e omeprazole 2018-11 Yes 40mg Take 40 mg B aylor (PRILOSEC) 0-11 by mouth. Mina ege 40 MG 18:00: of capsule 28 Medicin e MethylPREDN MethylPREDN 2019-0 Yes Jorge as Common ISolone ISolone 07-25 Leonard directed Spiri t 00:00: - [facility] 00 [facility] methylPREDN methylPREDN 2019-0 No methylPRED ISolone 4 ISolone 4 - NISolone 4 MG MG 00:00: MG 00 methylPREDN methylPREDN 2019-0 No methylPRED ISolone 4 ISolone 4 07-25 NISolone 4 MG MG 00:00: MG 00 methylPREDN methylPREDN 2019-0 No methylPRED ISolone 4 ISolone 4 07-25 NISolone 4 MG MG 00:00: MG 00 methylPREDN methylPREDN 2019-0 No methylPRED ISolone 4 ISolone 4 - NISolone 4 MG MG 00:00: MG 00 methylPREDN methylPREDN 2019-0 No methylPRED ISolone 4 ISolone 4 - NISolone 4 MG MG 00:00: MG 00 methylPREDN methylPREDN 2019-0 No methylPRED ISolone 4 ISolone 4 - NISolone 4 MG MG 00:00: MG 00 methylPREDN methylPREDN 2019-0 No methylPRED ISolone 4 ISolone 4 - NISolone 4 MG MG 00:00: MG 00 methylPREDN methylPREDN 2019-0 No methylPRED ISolone 4 ISolone 4 - NISolone 4 MG MG 00:00: MG 00 methylPREDN methylPREDN 2019-0 No methylPRED ISolone 4 ISolone 4 - NISolone 4 MG MG 00:00: MG 00 methylPREDN methylPREDN 2019-0 No methylPRED ISolone 4 ISolone 4 - NISolone 4 MG MG 00:00: MG 00 methylPREDN methylPREDN 2019-0 No methylPRED ISolone 4 ISolone 4 9-19 NISolone 4 MG MG 00:00: MG 00 methylPREDN methylPREDN 2019-0 No methylPRED ISolone 4 ISolone 4 07-25 NISolone 4 MG MG 00:00: MG 00 methylPREDN methylPREDN 2019-0 No methylPRED ISolone 4 ISolone 4 07-25 NISolone 4 MG MG 00:00: MG 00 methylPREDN methylPREDN 2019-0 No methylPRED ISolone 4 ISolone 4 07-25 NISolone 4 MG MG 00:00: MG 00 methylPREDN methylPREDN 2019-0 No methylPRED ISolone 4 ISolone 4 07-25 NISolone 4 MG MG 00:00: MG 00 methylPREDN methylPREDN 2019-0 No methylPRED ISolone 4 ISolone 4 07-25 NISolone 4 MG MG 00:00: MG 00 methylPREDN methylPREDN 2019-0 No methylPRED ISolone 4 ISolone 4 07-25 NISolone 4 MG MG 00:00: MG 00 methylPREDN methylPREDN 2019-0 No methylPRED ISolone 4 ISolone 4 07-25 NISolone 4 MG MG 00:00: MG 00 Tramadol Tramadol 2019-0 Yes Jorge as Co mmon HCl HCl 9-03 Leonard directed Spirit 00:00: - [facility] 00 [facility] traMADol traMADol 2019-0 No traMADol HCl 50 MG HCl 50 MG 9-03 HCl 50 MG 00:00: 00 traMADol traMADol 2019-0 No traMADol HCl 50 MG HCl 50 MG 9-03 HCl 50 MG 00:00: 00 traMADol traMADol 2019-0 No traMADol HCl 50 MG HCl 50 MG 9-03 HCl 50 MG 00:00: 00 traMADol traMADol 2019-0 No traMADol HCl 50 MG HCl 50 MG 9-03 HCl 50 MG 00:00: 00 traMADol traMADol 2019-0 No traMADol HCl 50 MG HCl 50 MG 9-03 HCl 50 MG 00:00: 00 traMADol traMADol 2019-0 No traMADol HCl 50 MG HCl 50 MG 9-03 HCl 50 MG 00:00: 00 traMADol traMADol 2019-0 No traMADol HCl 50 MG HCl 50 MG 9-03 HCl 50 MG 00:00: 00 traMADol traMADol 2018-0 No traMADol HCl 50 MG HCl 50 MG 9-03 HCl 50 MG 00:00: 00 traMADol traMADol 2019-0 No traMADol HCl 50 MG HCl 50 MG 9-03 HCl 50 MG 00:00: 00 traMADol traMADol 2018-0 No traMADol HCl 50 MG HCl 50 MG 9-03 HCl 50 MG 00:00: 00 traMADol traMADol 0 No traMADol HCl 50 MG HCl 50 MG 9-03 HCl 50 MG 00:00: 00 traMADol traMADol 0 No traMADol HCl 50 MG HCl 50 MG 9-03 HCl 50 MG 00:00: 00 traMADol traMADol 2018-0 No traMADol HCl 50 MG HCl 50 MG 9-03 HCl 50 MG 00:00: 00 traMADol traMADol 0 No traMADol HCl 50 MG HCl 50 MG 9-03 HCl 50 MG 00:00: 00 traMADol traMADol 0 No traMADol HCl 50 MG HCl 50 MG 9-03 HCl 50 MG 00:00: 00 traMADol traMADol 0 No traMADol HCl 50 MG HCl 50 MG 9-03 HCl 50 MG 00:00: 00 traMADol traMADol 0 No traMADol HCl 50 MG HCl 50 MG 9-03 HCl 50 MG 00:00: 00 traMADol traMADol 0 No traMADol HCl 50 MG HCl 50 MG 9-03 HCl 50 MG 00:00: 00 hydrOXYzine Yes 25mg Take 1 Tab Gamaliel (ATARAX) 25 6-03 by mouth 3 Co [...] BEDTIME NEEDED mirtazapine 2020- No TAKE 1 [facility] corin (REMERON) 5-09 02-01 TABLET (30 Col [...] 81mg Take 81 mg Gamaliel 81 MG 430 -30 by mouth. College tablet 00:00: 04:59 [...] DAY Medicin e losartan Yes TAKE 1 [facility] (COZAAR) 50 1-08 TABLET BY [...] DAY Medicin e losartan Yes TAKE 1 [facility] (COZAAR) 50 -08 TABLET BY Col lege MG tablet 00:00: MOUTH of 00 EVERY DAY Medicin e amlodipine 2020- No TAKE 1 [facility] (NORVASC) 08 08-25 TABLET BY Mina ege 10 MG 00:00: 00:00 MOUTH of tablet 00 :00 EVERY DAY Medicin e losartan 2020- No TAKE 1 [facility] (COZAAR) 50 -08 -27 TABLET BY Co llege MG tablet 00:00: 00:00 MOUTH of 00 :00 EVERY DAY Medicin e amLODIPine 2016-11 Yes 10mg Take 10 mg U nivers 10 mg -22 by mouth ity of tablet 12:56: daily. [address] atorvastati 2016-11 Yes 10mg Take 10 mg Univers n 10 mg -22 by mouth ity of tablet 12:56: daily. [address] losartan 50 2016-11 Yes 50mg Take 50 mg Univers mg tablet 22 by mouth ity of 12:56: daily. [address] omeprazole 2016-11 Yes 40mg Take 40 mg U nivers 40 mg -22 by mouth ity of capsule 12:56: daily. [address] oxybutynin 2016-11 Yes 5mg Take 5 mg Un erlin chloride 5 - by mouth ity o f mg tablet 12:56: daily. [address] tamsulosin 2016-11 Yes .4mg Take 0.4 Uni vers 0.4 mg 24 1-22 mg by ity of hr capsule 12:56: mouth [place] [id number] daily. [facility] Omeprazole Omeprazole Yes Jorge not Common Leonard defined [facility] Aspirin 81 Aspirin 81 Yes Jorge not Common Leonard defined [facility] atorvastati atorvastati Yes Jorge not Common n n Leonard defined [facility] Amlodipine Amlodipine Yes Jorge not Common Besylate Besylate Leonard defined Spir it [facility] Losartan Losartan Yes Jorge not Comm on Potassium Potassium Leonard defined Sp alexx [facility] Folic Acid Folic Acid Yes Jorge not Common Leonard defined [facility] Clindamycin Clindamycin Yes Jorge not Common HCl HCl Leonard defined [facility] BusPIRone BusPIRone Yes Jorge not Co mmon HCl HCl Leonard defined [facility] Mirtazapine Mirtazapine Yes Jorge not Common Leonard defined [facility] Atorvastati Atorvastati Yes Jorge not Common n Calcium n Calcium [facility] MAGnesium-O Yes Jorge not Common xide xide Leonard defined [facility] Flucelvax Flucelvax Yes Jorge not Co mmon Quadrivalen Quadrivalen Leonard defined [facility] Baclofen Baclofen Yes Jorge not Comm on Leonard defined [facility] Dicyclomine Dicyclomine No 2{capsu TID Dicyclomin HCl 10 MG HCl 10 MG les} e HCl 10 MG amLODIPine amLODIPine No 1{table QD amLODIPine Besylate 10 Besylate 10 t} Besylate MG MG 10 MG Mirtazapine Mirtazapine No Mirtazapin 30 MG 30 MG e 30 MG Pantoprazol Pantoprazol No 1{table QD Pantoprazo e Sodium 20 e Sodium 20 t} le Sodium MG MG 20 MG Metoprolol Metoprolol No 1{table QD Metoprolol Succinate Succinate t} Succinate ER 25 MG ER 25 MG ER 25 MG Clopidogrel Clopidogrel No 1{table QD Clopidogre Bisulfate Bisulfate t} l 75 MG 75 MG Bisulfate 75 MG Losartan Losartan No 1{table QD Losartan Potassium Potassium t} Potassium 100 MG 100 MG 100 MG clonazePAM clonazePAM No clonazePAM Atorvastati Atorvastati No 1{table QD Atorvastat n Calcium n Calcium t} in Calcium 10 MG 10 MG 10 MG Pregabalin Pregabalin No 1{capsu BID Pregabalin 50 MG 50 MG le} 50 MG Atorvastati Atorvastati No Atorvastat n Calcium n Calcium in Calcium 40 MG 40 MG 40 MG Atorvastati Atorvastati No Atorvastat n Calcium n Calcium in Calcium 40 MG 40 MG 40 MG Pantoprazol Pantoprazol No 1{table QD Pantoprazo e Sodium 20 e Sodium 20 t} le Sodium MG MG 20 MG Pregabalin Pregabalin No 1{capsu BID Pregabalin 50 MG 50 MG le} 50 MG Clopidogrel Clopidogrel No 1{table QD Clopidogre Bisulfate Bisulfate t} l 75 MG 75 MG Bisulfate 75 MG amLODIPine amLODIPine No 1{table QD amLODIPine Besylate 10 Besylate 10 t} Besylate MG MG 10 MG clonazePAM clonazePAM No clonazePAM Atorvastati Atorvastati No 1{table QD Atorvastat n Calcium n Calcium t} in Calcium 10 MG 10 MG 10 MG Mirtazapine Mirtazapine No Mirtazapin 30 MG 30 MG e 30 MG Losartan Losartan No 1{table QD Losartan Potassium Potassium t} Potassium 100 MG 100 MG 100 MG Metoprolol Metoprolol No 1{table QD Metoprolol Succinate Succinate t} Succinate ER 25 MG ER 25 MG ER 25 MG Clopidogrel Clopidogrel No 1{table QD Clopidogre Bisulfate Bisulfate t} l 75 MG 75 MG Bisulfate 75 MG MAGnesium-O MAGnesium-O No MAGnesium- xide xide Oxide Pantoprazol Pantoprazol No 1{table QD Pantoprazo e Sodium 20 e Sodium 20 t} le Sodium MG MG 20 MG Baclofen Baclofen No Baclofen Flucelvax Flucelvax No Flucelvax Quadrivalen Quadrivalen Quadrivale t t nt traMADol traMADol No traMADol HCl 50 MG HCl 50 MG HCl 50 MG amLODIPine amLODIPine No 1{table QD amLODIPine Besylate 10 Besylate 10 t} Besylate MG MG 10 MG Atorvastati Atorvastati No Atorvastat n Calcium n Calcium in Calcium Clindamycin Clindamycin No Clindamyci HCl HCl n HCl Aspirin 81 Aspirin 81 No Aspirin 81 Losartan Losartan No 1{table QD Losartan Potassium Potassium t} Potassium 100 MG 100 MG 100 MG Folic Acid Folic Acid No Folic Acid atorvastati atorvastati No atorvastat n n in Metoprolol Metoprolol No 1{table QD Metoprolol Succinate Succinate t} Succinate ER 25 MG ER 25 MG ER 25 MG Cyclobenzap Cyclobenzap No Cyclobenza rine HCl 10 rine HCl 10 esau HCl MG MG 10 MG Clopidogrel Clopidogrel No 1{table QD Clopidogre Bisulfate Bisulfate t} l 75 MG 75 MG Bisulfate 75 MG MAGnesium-O MAGnesium-O No MAGnesium- xide xide Oxide Pantoprazol Pantoprazol No 1{table QD Pantoprazo e Sodium 20 e Sodium 20 t} le Sodium MG MG 20 MG Baclofen Baclofen No Baclofen Flucelvax Flucelvax No Flucelvax Quadrivalen Quadrivalen Quadrivale t t nt traMADol traMADol No traMADol HCl 50 MG HCl 50 MG HCl 50 MG amLODIPine amLODIPine No 1{table QD amLODIPine Besylate 10 Besylate 10 t} Besylate MG MG 10 MG Atorvastati Atorvastati No Atorvastat n Calcium n Calcium in Calcium Clindamycin Clindamycin No Clindamyci HCl HCl n HCl Aspirin 81 Aspirin 81 No Aspirin 81 Losartan Losartan No 1{table QD Losartan Potassium Potassium t} Potassium 100 MG 100 MG 100 MG Folic Acid Folic Acid No Folic Acid atorvastati atorvastati No atorvastat n n in Metoprolol Metoprolol No 1{table QD Metoprolol Succinate Succinate t} Succinate ER 25 MG ER 25 MG ER 25 MG Cyclobenzap Cyclobenzap No Cyclobenza rine HCl 10 rine HCl 10 esau HCl MG MG 10 MG Miralax Miralax No Miralax Pantoprazol Pantoprazol No 1{table QD Pantoprazo e Sodium 20 e Sodium 20 t} le Sodium MG MG 20 MG Aspirin 81 Aspirin 81 No Aspirin 81 MAGnesium-O MAGnesium-O No MAGnesium- xide xide Oxide Atorvastati Atorvastati No 1{table QD Atorvastat n Calcium n Calcium t} in Calcium 10 MG 10 MG 10 MG Clindamycin Clindamycin No Clindamyci HCl HCl n HCl Metoprolol Metoprolol No 1{table QD Metoprolol Succinate Succinate t} Succinate ER 25 MG ER 25 MG ER 25 MG amLODIPine amLODIPine No 1{table QD amLODIPine Besylate 10 Besylate 10 t} Besylate MG MG 10 MG traMADol traMADol No traMADol HCl 50 MG HCl 50 MG HCl 50 MG Folic Acid Folic Acid No Folic Acid Metamucil Metamucil No Metamucil Baclofen Baclofen No Baclofen Cyclobenzap Cyclobenzap No Cyclobenza rine HCl 10 rine HCl 10 esau HCl MG MG 10 MG Clopidogrel Clopidogrel No 1{table QD Clopidogre Bisulfate Bisulfate t} l 75 MG 75 MG Bisulfate 75 MG atorvastati atorvastati No atorvastat n n in Losartan Losartan No 1{table QD Losartan Potassium Potassium t} Potassium 100 MG 100 MG 100 MG Flucelvax Flucelvax No Flucelvax Quadrivalen Quadrivalen Quadrivale t t nt Atorvastati Atorvastati No Atorvastat n Calcium n Calcium in Calcium Miralax Miralax No Miralax Aspirin 81 Aspirin 81 No Aspirin 81 amLODIPine amLODIPine No 1{table QD amLODIPine Besylate 10 Besylate 10 t} Besylate MG MG 10 MG Metoprolol Metoprolol No 1{table QD Metoprolol Succinate Succinate t} Succinate ER 25 MG ER 25 MG ER 25 MG Losartan Losartan No 1{table QD Losartan Potassium Potassium t} Potassium 100 MG 100 MG 100 MG Pantoprazol Pantoprazol No 1{table QD Pantoprazo e Sodium 20 e Sodium 20 t} le Sodium MG MG 20 MG Flucelvax Flucelvax No Flucelvax Quadrivalen Quadrivalen Quadrivale t t nt MAGnesium-O MAGnesium-O No MAGnesium- xide xide Oxide Cyclobenzap Cyclobenzap No Cyclobenza rine HCl 10 rine HCl 10 esau HCl MG MG 10 MG Atorvastati Atorvastati No Atorvastat n Calcium n Calcium in Calcium Clindamycin Clindamycin No Clindamyci HCl HCl n HCl Metamucil Metamucil No Metamucil traMADol traMADol No traMADol HCl 50 MG HCl 50 MG HCl 50 MG Folic Acid Folic Acid No Folic Acid Baclofen Baclofen No Baclofen Atorvastati Atorvastati No 1{table QD Atorvastat n Calcium n Calcium t} in Calcium 10 MG 10 MG 10 MG Clopidogrel Clopidogrel No 1{table QD Clopidogre Bisulfate Bisulfate t} l 75 MG 75 MG Bisulfate 75 MG atorvastati atorvastati No atorvastat n n in Miralax Miralax No Miralax Aspirin 81 Aspirin 81 No Aspirin 81 amLODIPine amLODIPine No 1{table QD amLODIPine Besylate 10 Besylate 10 t} Besylate MG MG 10 MG Metoprolol Metoprolol No 1{table QD Metoprolol Succinate Succinate t} Succinate ER 25 MG ER 25 MG ER 25 MG Losartan Losartan No 1{table QD Losartan Potassium Potassium t} Potassium 100 MG 100 MG 100 MG Pantoprazol Pantoprazol No 1{table QD Pantoprazo e Sodium 20 e Sodium 20 t} le Sodium MG MG 20 MG Flucelvax Flucelvax No Flucelvax Quadrivalen Quadrivalen Quadrivale t t nt MAGnesium-O MAGnesium-O No MAGnesium- xide xide Oxide Cyclobenzap Cyclobenzap No Cyclobenza rine HCl 10 rine HCl 10 esau HCl MG MG 10 MG Atorvastati Atorvastati No Atorvastat n Calcium n Calcium in Calcium Clindamycin Clindamycin No Clindamyci HCl HCl n HCl Metamucil Metamucil No Metamucil traMADol traMADol No traMADol HCl 50 MG HCl 50 MG HCl 50 MG Folic Acid Folic Acid No Folic Acid Baclofen Baclofen No Baclofen Atorvastati Atorvastati No 1{table QD Atorvastat n Calcium n Calcium t} in Calcium 10 MG 10 MG 10 MG Clopidogrel Clopidogrel No 1{table QD Clopidogre Bisulfate Bisulfate t} l 75 MG 75 MG Bisulfate 75 MG atorvastati atorvastati No atorvastat n n in Miralax Miralax No Miralax Aspirin 81 Aspirin 81 No Aspirin 81 amLODIPine amLODIPine No 1{table QD amLODIPine Besylate 10 Besylate 10 t} Besylate MG MG 10 MG Metoprolol Metoprolol No 1{table QD Metoprolol Succinate Succinate t} Succinate ER 25 MG ER 25 MG ER 25 MG Losartan Losartan No 1{table QD Losartan Potassium Potassium t} Potassium 100 MG 100 MG 100 MG Pantoprazol Pantoprazol No 1{table QD Pantoprazo e Sodium 20 e Sodium 20 t} le Sodium MG MG 20 MG Flucelvax Flucelvax No Flucelvax Quadrivalen Quadrivalen Quadrivale t t nt MAGnesium-O MAGnesium-O No MAGnesium- xide xide Oxide Cyclobenzap Cyclobenzap No Cyclobenza rine HCl 10 rine HCl 10 esau HCl MG MG 10 MG Atorvastati Atorvastati No Atorvastat n Calcium n Calcium in Calcium Clindamycin Clindamycin No Clindamyci HCl HCl n HCl Metamucil Metamucil No Metamucil traMADol traMADol No traMADol HCl 50 MG HCl 50 MG HCl 50 MG Folic Acid Folic Acid No Folic Acid Baclofen Baclofen No Baclofen Atorvastati Atorvastati No 1{table QD Atorvastat n Calcium n Calcium t} in Calcium 10 MG 10 MG 10 MG Clopidogrel Clopidogrel No 1{table QD Clopidogre Bisulfate Bisulfate t} l 75 MG 75 MG Bisulfate 75 MG atorvastati atorvastati No atorvastat n n in Miralax Miralax No Miralax Aspirin 81 Aspirin 81 No Aspirin 81 amLODIPine amLODIPine No 1{table QD amLODIPine Besylate 10 Besylate 10 t} Besylate MG MG 10 MG Metoprolol Metoprolol No 1{table QD Metoprolol Succinate Succinate t} Succinate ER 25 MG ER 25 MG ER 25 MG Losartan Losartan No 1{table QD Losartan Potassium Potassium t} Potassium 100 MG 100 MG 100 MG Pantoprazol Pantoprazol No 1{table QD Pantoprazo e Sodium 20 e Sodium 20 t} le Sodium MG MG 20 MG Flucelvax Flucelvax No Flucelvax Quadrivalen Quadrivalen Quadrivale t t nt MAGnesium-O MAGnesium-O No MAGnesium- xide xide Oxide Cyclobenzap Cyclobenzap No Cyclobenza rine HCl 10 rine HCl 10 esau HCl MG MG 10 MG Atorvastati Atorvastati No Atorvastat n Calcium n Calcium in Calcium Clindamycin Clindamycin No Clindamyci HCl HCl n HCl Metamucil Metamucil No Metamucil traMADol traMADol No traMADol HCl 50 MG HCl 50 MG HCl 50 MG Folic Acid Folic Acid No Folic Acid Baclofen Baclofen No Baclofen Atorvastati Atorvastati No 1{table QD Atorvastat n Calcium n Calcium t} in Calcium 10 MG 10 MG 10 MG Clopidogrel Clopidogrel No 1{table QD Clopidogre Bisulfate Bisulfate t} l 75 MG 75 MG Bisulfate 75 MG atorvastati atorvastati No atorvastat n n in Miralax Miralax No Miralax Aspirin 81 Aspirin 81 No Aspirin 81 amLODIPine amLODIPine No 1{table QD amLODIPine Besylate 10 Besylate 10 t} Besylate MG MG 10 MG Metoprolol Metoprolol No 1{table QD Metoprolol Succinate Succinate t} Succinate ER 25 MG ER 25 MG ER 25 MG Losartan Losartan No 1{table QD Losartan Potassium Potassium t} Potassium 100 MG 100 MG 100 MG Pantoprazol Pantoprazol No 1{table QD Pantoprazo e Sodium 20 e Sodium 20 t} le Sodium MG MG 20 MG Flucelvax Flucelvax No Flucelvax Quadrivalen Quadrivalen Quadrivale t t nt MAGnesium-O MAGnesium-O No MAGnesium- xide xide Oxide Cyclobenzap Cyclobenzap No Cyclobenza rine HCl 10 rine HCl 10 esau HCl MG MG 10 MG Atorvastati Atorvastati No Atorvastat n Calcium n Calcium in Calcium Clindamycin Clindamycin No Clindamyci HCl HCl n HCl Metamucil Metamucil No Metamucil traMADol traMADol No traMADol HCl 50 MG HCl 50 MG HCl 50 MG Folic Acid Folic Acid No Folic Acid Baclofen Baclofen No Baclofen Atorvastati Atorvastati No 1{table QD Atorvastat n Calcium n Calcium t} in Calcium 10 MG 10 MG 10 MG Clopidogrel Clopidogrel No 1{table QD Clopidogre Bisulfate Bisulfate t} l 75 MG 75 MG Bisulfate 75 MG atorvastati atorvastati No atorvastat n n in Miralax Miralax No Miralax Atorvastati Atorvastati No Atorvastat n Calcium n Calcium in Calcium traMADol traMADol No traMADol HCl 50 MG HCl 50 MG HCl 50 MG Atorvastati Atorvastati No 1{table QD Atorvastat n Calcium n Calcium t} in Calcium 10 MG 10 MG 10 MG Folic Acid Folic Acid No Folic Acid Baclofen Baclofen No Baclofen Metoprolol Metoprolol No 1{table QD Metoprolol Succinate Succinate t} Succinate ER 25 MG ER 25 MG ER 25 MG Clindamycin Clindamycin No Clindamyci HCl HCl n HCl atorvastati atorvastati No atorvastat n n in Metamucil Metamucil No Metamucil Pantoprazol Pantoprazol No 1{table QD Pantoprazo e Sodium 20 e Sodium 20 t} le Sodium MG MG 20 MG Flucelvax Flucelvax No Flucelvax Quadrivalen Quadrivalen Quadrivale t t nt Clopidogrel Clopidogrel No 1{table QD Clopidogre Bisulfate Bisulfate t} l 75 MG 75 MG Bisulfate 75 MG Cyclobenzap Cyclobenzap No Cyclobenza rine HCl 10 rine HCl 10 esau HCl MG MG 10 MG Losartan Losartan No 1{table QD Losartan Potassium Potassium t} Potassium 100 MG 100 MG 100 MG amLODIPine amLODIPine No 1{table QD amLODIPine Besylate 10 Besylate 10 t} Besylate MG MG 10 MG MAGnesium-O MAGnesium-O No MAGnesium- xide xide Oxide Aspirin 81 Aspirin 81 No Aspirin 81 Miralax Miralax No Miralax Atorvastati Atorvastati No Atorvastat n Calcium n Calcium in Calcium traMADol traMADol No traMADol HCl 50 MG HCl 50 MG HCl 50 MG Atorvastati Atorvastati No 1{table QD Atorvastat n Calcium n Calcium t} in Calcium 10 MG 10 MG 10 MG Folic Acid Folic Acid No Folic Acid Baclofen Baclofen No Baclofen Metoprolol Metoprolol No 1{table QD Metoprolol Succinate Succinate t} Succinate ER 25 MG ER 25 MG ER 25 MG Clindamycin Clindamycin No Clindamyci HCl HCl n HCl atorvastati atorvastati No atorvastat n n in Metamucil Metamucil No Metamucil Pantoprazol Pantoprazol No 1{table QD Pantoprazo e Sodium 20 e Sodium 20 t} le Sodium MG MG 20 MG Flucelvax Flucelvax No Flucelvax Quadrivalen Quadrivalen Quadrivale t t nt Clopidogrel Clopidogrel No 1{table QD Clopidogre Bisulfate Bisulfate t} l 75 MG 75 MG Bisulfate 75 MG Cyclobenzap Cyclobenzap No Cyclobenza rine HCl 10 rine HCl 10 esau HCl MG MG 10 MG Losartan Losartan No 1{table QD Losartan Potassium Potassium t} Potassium 100 MG 100 MG 100 MG amLODIPine amLODIPine No 1{table QD amLODIPine Besylate 10 Besylate 10 t} Besylate MG MG 10 MG MAGnesium-O MAGnesium-O No MAGnesium- xide xide Oxide Aspirin 81 Aspirin 81 No Aspirin 81 Losartan Losartan No 1{table QD Losartan Potassium Potassium t} Potassium 100 MG 100 MG 100 MG traMADol traMADol No traMADol HCl 50 MG HCl 50 MG HCl 50 MG Baclofen Baclofen No Baclofen Metamucil Metamucil No Metamucil amLODIPine amLODIPine No 1{table QD amLODIPine Besylate 10 Besylate 10 t} Besylate MG MG 10 MG Atorvastati Atorvastati No 1{table QD Atorvastat n Calcium n Calcium t} in Calcium 10 MG 10 MG 10 MG Aspirin 81 Aspirin 81 No Aspirin 81 MAGnesium-O MAGnesium-O No MAGnesium- xide xide Oxide Cyclobenzap Cyclobenzap No Cyclobenza rine HCl 10 rine HCl 10 esau HCl MG MG 10 MG Miralax Miralax No Miralax Folic Acid Folic Acid No Folic Acid Pantoprazol Pantoprazol No 1{table QD Pantoprazo e Sodium 20 e Sodium 20 t} le Sodium MG MG 20 MG Flucelvax Flucelvax No Flucelvax Quadrivalen Quadrivalen Quadrivale t t nt Atorvastati Atorvastati No Atorvastat n Calcium n Calcium in Calcium Clindamycin Clindamycin No Clindamyci HCl HCl n HCl Clopidogrel Clopidogrel No 1{table QD Clopidogre Bisulfate Bisulfate t} l 75 MG 75 MG Bisulfate 75 MG atorvastati atorvastati No atorvastat n n in Metoprolol Metoprolol No 1{table QD Metoprolol Succinate Succinate t} Succinate ER 25 MG ER 25 MG ER 25 MG Losartan Losartan No 1{table QD Losartan Potassium Potassium t} Potassium 100 MG 100 MG 100 MG traMADol traMADol No traMADol HCl 50 MG HCl 50 MG HCl 50 MG Baclofen Baclofen No Baclofen Metamucil Metamucil No Metamucil amLODIPine amLODIPine No 1{table QD amLODIPine Besylate 10 Besylate 10 t} Besylate MG MG 10 MG Atorvastati Atorvastati No 1{table QD Atorvastat n Calcium n Calcium t} in Calcium 10 MG 10 MG 10 MG Aspirin 81 Aspirin 81 No Aspirin 81 MAGnesium-O MAGnesium-O No MAGnesium- xide xide Oxide Cyclobenzap Cyclobenzap No Cyclobenza rine HCl 10 rine HCl 10 esau HCl MG MG 10 MG Miralax Miralax No Miralax Folic Acid Folic Acid No Folic Acid Pantoprazol Pantoprazol No 1{table QD Pantoprazo e Sodium 20 e Sodium 20 t} le Sodium MG MG 20 MG Flucelvax Flucelvax No Flucelvax Quadrivalen Quadrivalen Quadrivale t t nt Atorvastati Atorvastati No Atorvastat n Calcium n Calcium in Calcium Clindamycin Clindamycin No Clindamyci HCl HCl n HCl Clopidogrel Clopidogrel No 1{table QD Clopidogre Bisulfate Bisulfate t} l 75 MG 75 MG Bisulfate 75 MG atorvastati atorvastati No atorvastat n n in Metoprolol Metoprolol No 1{table QD Metoprolol Succinate Succinate t} Succinate ER 25 MG ER 25 MG ER 25 MG atorvastati atorvastati No atorvastat n n in Folic Acid Folic Acid No Folic Acid Metamucil Metamucil No Metamucil traMADol traMADol No traMADol HCl 50 MG HCl 50 MG HCl 50 MG Miralax Miralax No Miralax Baclofen Baclofen No Baclofen Cyclobenzap Cyclobenzap No Cyclobenza rine HCl 10 rine HCl 10 esau HCl MG MG 10 MG Clindamycin Clindamycin No Clindamyci HCl HCl n HCl Clopidogrel Clopidogrel No 1{table QD Clopidogre Bisulfate Bisulfate t} l 75 MG 75 MG Bisulfate 75 MG amLODIPine amLODIPine No 1{table QD amLODIPine Besylate 10 Besylate 10 t} Besylate MG MG 10 MG Metoprolol Metoprolol No 1{table QD Metoprolol Succinate Succinate t} Succinate ER 25 MG ER 25 MG ER 25 MG Atorvastati Atorvastati No Atorvastat n Calcium n Calcium in Calcium MAGnesium-O MAGnesium-O No MAGnesium- xide xide Oxide Losartan Losartan No 1{table QD Losartan Potassium Potassium t} Potassium 100 MG 100 MG 100 MG Atorvastati Atorvastati No 1{table QD Atorvastat n Calcium n Calcium t} in Calcium 10 MG 10 MG 10 MG Pantoprazol Pantoprazol No 1{table QD Pantoprazo e Sodium 20 e Sodium 20 t} le Sodium MG MG 20 MG Flucelvax Flucelvax No Flucelvax Quadrivalen Quadrivalen Quadrivale t t nt Aspirin 81 Aspirin 81 No Aspirin 81 atorvastati atorvastati No atorvastat n n in Folic Acid Folic Acid No Folic Acid Metamucil Metamucil No Metamucil traMADol traMADol No traMADol HCl 50 MG HCl 50 MG HCl 50 MG Miralax Miralax No Miralax Baclofen Baclofen No Baclofen Cyclobenzap Cyclobenzap No Cyclobenza rine HCl 10 rine HCl 10 esau HCl MG MG 10 MG Clindamycin Clindamycin No Clindamyci HCl HCl n HCl Clopidogrel Clopidogrel No 1{table QD Clopidogre Bisulfate Bisulfate t} l 75 MG 75 MG Bisulfate 75 MG amLODIPine amLODIPine No 1{table QD amLODIPine Besylate 10 Besylate 10 t} Besylate MG MG 10 MG Metoprolol Metoprolol No 1{table QD Metoprolol Succinate Succinate t} Succinate ER 25 MG ER 25 MG ER 25 MG Atorvastati Atorvastati No Atorvastat n Calcium n Calcium in Calcium MAGnesium-O MAGnesium-O No MAGnesium- xide xide Oxide Losartan Losartan No 1{table QD Losartan Potassium Potassium t} Potassium 100 MG 100 MG 100 MG Atorvastati Atorvastati No 1{table QD Atorvastat n Calcium n Calcium t} in Calcium 10 MG 10 MG 10 MG Pantoprazol Pantoprazol No 1{table QD Pantoprazo e Sodium 20 e Sodium 20 t} le Sodium MG MG 20 MG Flucelvax Flucelvax No Flucelvax Quadrivalen Quadrivalen Quadrivale t t nt Aspirin 81 Aspirin 81 No Aspirin 81 atorvastati atorvastati No atorvastat n n in Folic Acid Folic Acid No Folic Acid Metamucil Metamucil No Metamucil traMADol traMADol No traMADol HCl 50 MG HCl 50 MG HCl 50 MG Miralax Miralax No Miralax Baclofen Baclofen No Baclofen Cyclobenzap Cyclobenzap No Cyclobenza rine HCl 10 rine HCl 10 esau HCl MG MG 10 MG Clindamycin Clindamycin No Clindamyci HCl HCl n HCl Clopidogrel Clopidogrel No 1{table QD Clopidogre Bisulfate Bisulfate t} l 75 MG 75 MG Bisulfate 75 MG amLODIPine amLODIPine No 1{table QD amLODIPine Besylate 10 Besylate 10 t} Besylate MG MG 10 MG Metoprolol Metoprolol No 1{table QD Metoprolol Succinate Succinate t} Succinate ER 25 MG ER 25 MG ER 25 MG Atorvastati Atorvastati No Atorvastat n Calcium n Calcium in Calcium MAGnesium-O MAGnesium-O No MAGnesium- xide xide Oxide Losartan Losartan No 1{table QD Losartan Potassium Potassium t} Potassium 100 MG 100 MG 100 MG Atorvastati Atorvastati No 1{table QD Atorvastat n Calcium n Calcium t} in Calcium 10 MG 10 MG 10 MG Pantoprazol Pantoprazol No 1{table QD Pantoprazo e Sodium 20 e Sodium 20 t} le Sodium MG MG 20 MG Flucelvax Flucelvax No Flucelvax Quadrivalen Quadrivalen Quadrivale t t nt Aspirin 81 Aspirin 81 No Aspirin 81 atorvastati atorvastati No atorvastat n n in Folic Acid Folic Acid No Folic Acid Metamucil Metamucil No Metamucil traMADol traMADol No traMADol HCl 50 MG HCl 50 MG HCl 50 MG Miralax Miralax No Miralax Baclofen Baclofen No Baclofen Cyclobenzap Cyclobenzap No Cyclobenza rine HCl 10 rine HCl 10 esau HCl MG MG 10 MG Clindamycin Clindamycin No Clindamyci HCl HCl n HCl Clopidogrel Clopidogrel No 1{table QD Clopidogre Bisulfate Bisulfate t} l 75 MG 75 MG Bisulfate 75 MG amLODIPine amLODIPine No 1{table QD amLODIPine Besylate 10 Besylate 10 t} Besylate MG MG 10 MG Metoprolol Metoprolol No 1{table QD Metoprolol Succinate Succinate t} Succinate ER 25 MG ER 25 MG ER 25 MG Atorvastati Atorvastati No Atorvastat n Calcium n Calcium in Calcium MAGnesium-O MAGnesium-O No MAGnesium- xide xide Oxide Losartan Losartan No 1{table QD Losartan Potassium Potassium t} Potassium 100 MG 100 MG 100 MG Atorvastati Atorvastati No 1{table QD Atorvastat n Calcium n Calcium t} in Calcium 10 MG 10 MG 10 MG Pantoprazol Pantoprazol No 1{table QD Pantoprazo e Sodium 20 e Sodium 20 t} le Sodium MG MG 20 MG Flucelvax Flucelvax No Flucelvax Quadrivalen Quadrivalen Quadrivale t t nt Aspirin 81 Aspirin 81 No Aspirin 81 Clindamycin Clindamycin No Clindamyci HCl HCl n HCl Clopidogrel Clopidogrel No 1{table QD Clopidogre Bisulfate Bisulfate t} l 75 MG 75 MG Bisulfate 75 MG Baclofen Baclofen No Baclofen Flucelvax Flucelvax No Flucelvax Quadrivalen Quadrivalen Quadrivale t t nt Losartan Losartan No 1{table QD Losartan Potassium Potassium t} Potassium 100 MG 100 MG 100 MG amLODIPine amLODIPine No 1{table QD amLODIPine Besylate 10 Besylate 10 t} Besylate MG MG 10 MG Atorvastati Atorvastati No Atorvastat n Calcium n Calcium in Calcium Cyclobenzap Cyclobenzap No Cyclobenza rine HCl 10 rine HCl 10 esau HCl MG MG 10 MG MAGnesium-O MAGnesium-O No MAGnesium- xide xide Oxide Miralax Miralax No Miralax Metamucil Metamucil No Metamucil Metoprolol Metoprolol No 1{table QD Metoprolol Succinate Succinate t} Succinate ER 25 MG ER 25 MG ER 25 MG Aspirin 81 Aspirin 81 No Aspirin 81 Folic Acid Folic Acid No Folic Acid traMADol traMADol No traMADol HCl 50 MG HCl 50 MG HCl 50 MG Atorvastati Atorvastati No 1{table QD Atorvastat n Calcium n Calcium t} in Calcium 10 MG 10 MG 10 MG atorvastati atorvastati No atorvastat n n in Pantoprazol Pantoprazol No 1{table QD Pantoprazo e Sodium 20 e Sodium 20 t} le Sodium MG MG 20 MG Clindamycin Clindamycin No Clindamyci HCl HCl n HCl Pantoprazol Pantoprazol No 1{table QD Pantoprazo e Sodium 20 e Sodium 20 t} le Sodium MG MG 20 MG Baclofen Baclofen No Baclofen Flucelvax Flucelvax No Flucelvax Quadrivalen Quadrivalen Quadrivale t t nt Clopidogrel Clopidogrel No 1{table QD Clopidogre Bisulfate Bisulfate t} l 75 MG 75 MG Bisulfate 75 MG amLODIPine amLODIPine No 1{table QD amLODIPine Besylate 10 Besylate 10 t} Besylate MG MG 10 MG Atorvastati Atorvastati No Atorvastat n Calcium n Calcium in Calcium Cyclobenzap Cyclobenzap No Cyclobenza rine HCl 10 rine HCl 10 esau HCl MG MG 10 MG MAGnesium-O MAGnesium-O No MAGnesium- xide xide Oxide Miralax Miralax No Miralax Losartan Losartan No Losartan Potassium Potassium Potassium 100 MG 100 MG 100 MG Metoprolol Metoprolol No 1{table QD Metoprolol Succinate Succinate t} Succinate ER 25 MG ER 25 MG ER 25 MG Aspirin 81 Aspirin 81 No Aspirin 81 Folic Acid Folic Acid No Folic Acid traMADol traMADol No traMADol HCl 50 MG HCl 50 MG HCl 50 MG Atorvastati Atorvastati No 1{table QD Atorvastat n Calcium n Calcium t} in Calcium 10 MG 10 MG 10 MG atorvastati atorvastati No atorvastat n n in Metamucil Metamucil No Metamucil amLODIPine amLODIPine No 1{table QD Besylate 10 Besylate 10 t} MG MG Pantoprazol Pantoprazol No 1{table QD e Sodium 20 e Sodium 20 t} MG MG Clopidogrel Clopidogrel No 1{table QD Bisulfate Bisulfate t} 75 MG 75 MG Losartan Losartan No 1{table QD Potassium Potassium t} 100 MG 100 MG Atorvastati Atorvastati No 1{table QD n Calcium n Calcium t} 10 MG 10 MG Metoprolol Metoprolol No 1{table QD Succinate Succinate t} ER 25 MG ER 25 MG amLODIPine amLODIPine No 1{table QD amLODIPine Besylate 10 Besylate 10 t} Besylate MG MG 10 MG Pantoprazol Pantoprazol No 1{table QD Pantoprazo e Sodium 20 e Sodium 20 t} le Sodium MG MG 20 MG Clopidogrel Clopidogrel No 1{table QD Clopidogre Bisulfate Bisulfate t} l 75 MG 75 MG Bisulfate 75 MG Losartan Losartan No 1{table QD Losartan Potassium Potassium t} Potassium 100 MG 100 MG 100 MG Atorvastati Atorvastati No 1{table QD Atorvastat n Calcium n Calcium t} in Calcium 10 MG 10 MG 10 MG Metoprolol Metoprolol No 1{table QD Metoprolol Succinate Succinate t} Succinate ER 25 MG ER 25 MG ER 25 MG amLODIPine amLODIPine No 1{table QD amLODIPine Besylate 10 Besylate 10 t} Besylate MG MG 10 MG Pantoprazol Pantoprazol No 1{table QD Pantoprazo e Sodium 20 e Sodium 20 t} le Sodium MG MG 20 MG Clopidogrel Clopidogrel No 1{table QD Clopidogre Bisulfate Bisulfate t} l 75 MG 75 MG Bisulfate 75 MG Losartan Losartan No 1{table QD Losartan Potassium Potassium t} Potassium 100 MG 100 MG 100 MG Atorvastati Atorvastati No 1{table QD Atorvastat n Calcium n Calcium t} in Calcium 10 MG 10 MG 10 MG Metoprolol Metoprolol No 1{table QD Metoprolol Succinate Succinate t} Succinate ER 25 MG ER 25 MG ER 25 MG amLODIPine amLODIPine No 1{table QD amLODIPine Besylate 10 Besylate 10 t} Besylate MG MG 10 MG Pantoprazol Pantoprazol No 1{table QD Pantoprazo e Sodium 20 e Sodium 20 t} le Sodium MG MG 20 MG Clopidogrel Clopidogrel No 1{table QD Clopidogre Bisulfate Bisulfate t} l 75 MG 75 MG Bisulfate 75 MG Losartan Losartan No 1{table QD Losartan Potassium Potassium t} Potassium 100 MG 100 MG 100 MG Atorvastati Atorvastati No 1{table QD Atorvastat n Calcium n Calcium t} in Calcium 40 MG 40 MG 40 MG Metoprolol Metoprolol No 1{table QD Metoprolol Succinate Succinate t} Succinate ER 25 MG ER 25 MG ER 25 MG amLODIPine amLODIPine No 1{table QD amLODIPine Besylate 10 Besylate 10 t} Besylate MG MG 10 MG Pantoprazol Pantoprazol No 1{table QD Pantoprazo e Sodium 20 e Sodium 20 t} le Sodium MG MG 20 MG Clopidogrel Clopidogrel No 1{table QD Clopidogre Bisulfate Bisulfate t} l 75 MG 75 MG Bisulfate 75 MG Losartan Losartan No 1{table QD Losartan Potassium Potassium t} Potassium 100 MG 100 MG 100 MG Atorvastati Atorvastati No 1{table QD Atorvastat n Calcium n Calcium t} in Calcium 40 MG 40 MG 40 MG Metoprolol Metoprolol No 1{table QD Metoprolol Succinate Succinate t} Succinate ER 25 MG ER 25 MG ER 25 MG Clopidogrel Clopidogrel No 1{table QD Clopidogre Bisulfate Bisulfate t} l 75 MG 75 MG Bisulfate 75 MG Atorvastati Atorvastati No 1{table QD Atorvastat n Calcium n Calcium t} in Calcium 40 MG 40 MG 40 MG Metoprolol Metoprolol No 1{table QD Metoprolol Succinate Succinate t} Succinate ER 25 MG ER 25 MG ER 25 MG Pantoprazol Pantoprazol No 1{table QD Pantoprazo e Sodium 20 e Sodium 20 t} le Sodium MG MG 20 MG Losartan Losartan No 1{table QD Losartan Potassium Potassium t} Potassium 100 MG 100 MG 100 MG amLODIPine amLODIPine No 1{table QD amLODIPine Besylate 10 Besylate 10 t} Besylate MG MG 10 MG Clopidogrel Clopidogrel No 1{table QD Clopidogre Bisulfate Bisulfate t} l 75 MG 75 MG Bisulfate 75 MG Atorvastati Atorvastati No 1{table QD Atorvastat n Calcium n Calcium t} in Calcium 40 MG 40 MG 40 MG Metoprolol Metoprolol No 1{table QD Metoprolol Succinate Succinate t} Succinate ER 25 MG ER 25 MG ER 25 MG Pantoprazol Pantoprazol No 1{table QD Pantoprazo e Sodium 20 e Sodium 20 t} le Sodium MG MG 20 MG Losartan Losartan No 1{table QD Losartan Potassium Potassium t} Potassium 100 MG 100 MG 100 MG amLODIPine amLODIPine No 1{table QD amLODIPine Besylate 10 Besylate 10 t} Besylate MG MG 10 MG Pantoprazol Pantoprazol No 1{table QD Pantoprazo e Sodium 20 e Sodium 20 t} le Sodium MG MG 20 MG amLODIPine amLODIPine No 1{table QD amLODIPine Besylate 10 Besylate 10 t} Besylate MG MG 10 MG Clopidogrel Clopidogrel No 1{table QD Clopidogre Bisulfate Bisulfate t} l 75 MG 75 MG Bisulfate 75 MG Losartan Losartan No 1{table QD Losartan Potassium Potassium t} Potassium 100 MG 100 MG 100 MG Atorvastati Atorvastati No 1{table QD Atorvastat n Calcium n Calcium t} in Calcium 10 MG 10 MG 10 MG amLODIPine amLODIPine No amLODIPine Besylate 10 Besylate 10 Besylate MG MG 10 MG Metoprolol Metoprolol No 1{table QD Metoprolol Succinate Succinate t} Succinate ER 25 MG ER 25 MG ER 25 MG Pantoprazol Pantoprazol No 1{table QD Pantoprazo e Sodium 20 e Sodium 20 t} le Sodium MG MG 20 MG Mirtazapine Mirtazapine No Mirtazapin 30 MG 30 MG e 30 MG Metoprolol Metoprolol No 1{table QD Metoprolol Succinate Succinate t} Succinate ER 25 MG ER 25 MG ER 25 MG Clopidogrel Clopidogrel No 1{table QD Clopidogre Bisulfate Bisulfate t} l 75 MG 75 MG Bisulfate 75 MG amLODIPine amLODIPine No 1{table QD amLODIPine Besylate 10 Besylate 10 t} Besylate MG MG 10 MG Atorvastati Atorvastati No 1{table QD Atorvastat n Calcium n Calcium t} in Calcium 10 MG 10 MG 10 MG amLODIPine amLODIPine No amLODIPine Besylate 10 Besylate 10 Besylate MG MG 10 MG Losartan Losartan No 1{table QD Losartan Potassium Potassium t} Potassium 100 MG 100 MG 100 MG amLODIPine amLODIPine No amLODIPine Besylate 10 Besylate 10 Besylate MG MG 10 MG Losartan Losartan No 1{table QD Losartan Potassium Potassium t} Potassium 100 MG 100 MG 100 MG Atorvastati Atorvastati No 1{table QD Atorvastat n Calcium n Calcium t} in Calcium 10 MG 10 MG 10 MG amLODIPine amLODIPine No 1{table QD amLODIPine Besylate 10 Besylate 10 t} Besylate MG MG 10 MG Mirtazapine Mirtazapine No Mirtazapin 30 MG 30 MG e 30 MG Clopidogrel Clopidogrel No 1{table QD Clopidogre Bisulfate Bisulfate t} l 75 MG 75 MG Bisulfate 75 MG Pantoprazol Pantoprazol No 1{table QD Pantoprazo e Sodium 20 e Sodium 20 t} le Sodium MG MG 20 MG Metoprolol Metoprolol No 1{table QD Metoprolol Succinate Succinate t} Succinate ER 25 MG ER 25 MG ER 25 MG amLODIPine amLODIPine No amLODIPine Besylate 10 Besylate 10 Besylate MG MG 10 MG Losartan Losartan No 1{table QD Losartan Potassium Potassium t} Potassium 100 MG 100 MG 100 MG Atorvastati Atorvastati No 1{table QD Atorvastat n Calcium n Calcium t} in Calcium 10 MG 10 MG 10 MG amLODIPine amLODIPine No 1{table QD amLODIPine Besylate 10 Besylate 10 t} Besylate MG MG 10 MG Mirtazapine Mirtazapine No Mirtazapin 30 MG 30 MG e 30 MG Clopidogrel Clopidogrel No 1{table QD Clopidogre Bisulfate Bisulfate t} l 75 MG 75 MG Bisulfate 75 MG Pantoprazol Pantoprazol No 1{table QD Pantoprazo e Sodium 20 e Sodium 20 t} le Sodium MG MG 20 MG Metoprolol Metoprolol No 1{table QD Metoprolol Succinate Succinate t} Succinate ER 25 MG ER 25 MG ER 25 MG amLODIPine amLODIPine No amLODIPine Besylate 10 Besylate 10 Besylate MG MG 10 MG amLODIPine amLODIPine No 1{table QD amLODIPine Besylate 10 Besylate 10 t} Besylate MG MG 10 MG Losartan Losartan No 1{table QD Losartan Potassium Potassium t} Potassium 100 MG 100 MG 100 MG Pantoprazol Pantoprazol No 1{table QD Pantoprazo e Sodium 20 e Sodium 20 t} le Sodium MG MG 20 MG Metoprolol Metoprolol No 1{table QD Metoprolol Succinate Succinate t} Succinate ER 25 MG ER 25 MG ER 25 MG Mirtazapine Mirtazapine No Mirtazapin 30 MG 30 MG e 30 MG Clopidogrel Clopidogrel No 1{table QD Clopidogre Bisulfate Bisulfate t} l 75 MG 75 MG Bisulfate 75 MG Atorvastati Atorvastati No Atorvastat n Calcium n Calcium in Calcium 40 MG 40 MG 40 MG Atorvastati Atorvastati No Atorvastat n Calcium n Calcium in Calcium 40 MG 40 MG 40 MG amLODIPine amLODIPine No 1{table QD amLODIPine Besylate 10 Besylate 10 t} Besylate MG MG 10 MG Pantoprazol Pantoprazol No 1{table QD Pantoprazo e Sodium 20 e Sodium 20 t} le Sodium MG MG 20 MG Losartan Losartan No 1{table QD Losartan Potassium Potassium t} Potassium 100 MG 100 MG 100 MG Clopidogrel Clopidogrel No 1{table QD Clopidogre Bisulfate Bisulfate t} l 75 MG 75 MG Bisulfate 75 MG Mirtazapine Mirtazapine No Mirtazapin 30 MG 30 MG e 30 MG Metoprolol Metoprolol No 1{table QD Metoprolol Succinate Succinate t} Succinate ER 25 MG ER 25 MG ER 25 MG amLODIPine amLODIPine No amLODIPine Besylate 10 Besylate 10 Besylate MG MG 10 MG clonazePAM clonazePAM No clonazePAM Pantoprazol Pantoprazol No 1{table QD Pantoprazo e Sodium 20 e Sodium 20 t} le Sodium MG MG 20 MG Clopidogrel Clopidogrel No 1{table QD Clopidogre Bisulfate Bisulfate t} l 75 MG 75 MG Bisulfate 75 MG amLODIPine amLODIPine No 1{table QD amLODIPine Besylate 10 Besylate 10 t} Besylate MG MG 10 MG Pregabalin Pregabalin No 1{capsu BID Pregabalin 50 MG 50 MG le} 50 MG Losartan Losartan No 1{table QD Losartan Potassium Potassium t} Potassium 100 MG 100 MG 100 MG Atorvastati Atorvastati No Atorvastat n Calcium n Calcium in Calcium 40 MG 40 MG 40 MG Atorvastati Atorvastati No 1{table QD Atorvastat n Calcium n Calcium t} in Calcium 10 MG 10 MG 10 MG Mirtazapine Mirtazapine No Mirtazapin 30 MG 30 MG e 30 MG Metoprolol Metoprolol No 1{table QD Metoprolol Succinate Succinate t} Succinate ER 25 MG ER 25 MG ER 25 MG Atorvastati Atorvastati No Atorvastat n Calcium n Calcium in Calcium 40 MG 40 MG 40 MG Pantoprazol Pantoprazol No 1{table QD Pantoprazo e Sodium 20 e Sodium 20 t} le Sodium MG MG 20 MG Pregabalin Pregabalin No 1{capsu BID Pregabalin 50 MG 50 MG le} 50 MG Clopidogrel Clopidogrel No 1{table QD Clopidogre Bisulfate Bisulfate t} l 75 MG 75 MG Bisulfate 75 MG amLODIPine amLODIPine No 1{table QD amLODIPine Besylate 10 Besylate 10 t} Besylate MG MG 10 MG clonazePAM clonazePAM No clonazePAM Atorvastati Atorvastati No 1{table QD Atorvastat n Calcium n Calcium t} in Calcium 10 MG 10 MG 10 MG Mirtazapine Mirtazapine No Mirtazapin 30 MG 30 MG e 30 MG Losartan Losartan No 1{table QD Losartan Potassium Potassium t} Potassium 100 MG 100 MG 100 MG Metoprolol Metoprolol No 1{table QD Metoprolol Succinate Succinate t} Succinate ER 25 MG ER 25 MG ER 25 MG Atorvastati Atorvastati No Atorvastat n Calcium n Calcium in Calcium 40 MG 40 MG 40 MG Pantoprazol Pantoprazol No 1{table QD Pantoprazo e Sodium 20 e Sodium 20 t} le Sodium MG MG 20 MG Pregabalin Pregabalin No 1{capsu BID Pregabalin 50 MG 50 MG le} 50 MG Clopidogrel Clopidogrel No 1{table QD Clopidogre Bisulfate Bisulfate t} l 75 MG 75 MG Bisulfate 75 MG amLODIPine amLODIPine No 1{table QD amLODIPine Besylate 10 Besylate 10 t} Besylate MG MG 10 MG clonazePAM clonazePAM No clonazePAM Atorvastati Atorvastati No 1{table QD Atorvastat n Calcium n Calcium t} in Calcium 10 MG 10 MG 10 MG Mirtazapine Mirtazapine No Mirtazapin 30 MG 30 MG e 30 MG Losartan Losartan No 1{table QD Losartan Potassium Potassium t} Potassium 100 MG 100 MG 100 MG Metoprolol Metoprolol No 1{table QD Metoprolol Succinate Succinate t} Succinate ER 25 MG ER 25 MG ER 25 MG Dicyclomine Dicyclomine No 2{capsu TID Dicyclomin HCl 10 MG HCl 10 MG les} e HCl 10 MG Mirtazapine Mirtazapine No Mirtazapin 30 MG 30 MG e 30 MG Atorvastati Atorvastati No Atorvastat n Calcium n Calcium in Calcium 40 MG 40 MG 40 MG Pantoprazol Pantoprazol No 1{table QD Pantoprazo e Sodium 20 e Sodium 20 t} le Sodium MG MG 20 MG Metoprolol Metoprolol No 1{table QD Metoprolol Succinate Succinate t} Succinate ER 25 MG ER 25 MG ER 25 MG Clopidogrel Clopidogrel No 1{table QD Clopidogre Bisulfate Bisulfate t} l 75 MG 75 MG Bisulfate 75 MG amLODIPine amLODIPine No 1{table QD amLODIPine Besylate 10 Besylate 10 t} Besylate MG MG 10 MG clonazePAM clonazePAM No clonazePAM Atorvastati Atorvastati No 1{table QD Atorvastat n Calcium n Calcium t} in Calcium 10 MG 10 MG 10 MG Pregabalin Pregabalin No 1{capsu BID Pregabalin 50 MG 50 MG le} 50 MG Losartan Losartan No 1{table QD Losartan Potassium Potassium t} Potassium 100 MG 100 MG 100 MG Aspir-81 81 Aspir-81 81 2022- No 1{table QD Aspir-81 MG MG 01-20 t} 81 MG 00:00 :00 Aspir-81 81 Aspir-81 81 2022- No 1{table QD Aspir-81 MG MG 01-20 t} 81 MG 00:00 :00 Aspir-81 81 Aspir-81 81 2022- No 1{table QD Aspir-81 MG MG 01-20 t} 81 MG 00:00 :00 Aspir-81 81 Aspir-81 81 2022- No 1{table QD Aspir-81 MG MG 01-20 t} 81 MG 00:00 :00 Aspir-81 81 Aspir-81 81 2022- No 1{table QD Aspir-81 MG MG 01-20 t} 81 MG 00:00 :00 Aspir-81 81 Aspir-81 81 2022- No 1{table QD Aspir-81 MG MG 01-20 t} 81 MG 00:00 :00 Aspir-81 81 Aspir-81 81 2022- No 1{table QD Aspir-81 MG MG 01-20 t} 81 MG 00:00 :00 Aspir-81 81 Aspir-81 81 2022- No 1{table QD Aspir-81 MG MG 01-20 t} 81 MG 00:00 :00 Aspir-81 81 Aspir-81 81 2022- No 1{table QD Aspir-81 MG MG 01-20 t} 81 MG 00:00 :00 Aspir-81 81 Aspir-81 81 2022- No 1{table QD Aspir-81 MG MG 01-20 t} 81 MG 00:00 :00 Aspir-81 81 Aspir-81 81 2022- No 1{table QD Aspir-81 MG MG 01-20 t} 81 MG 00:00 :00 Aspir-81 81 Aspir-81 81 2022- No 1{table QD Aspir-81 MG MG 01-20 t} 81 MG 00:00 :00 Aspir-81 81 Aspir-81 81 2022- No 1{table QD Aspir-81 MG MG 01-20 t} 81 MG 00:00 :00 Aspir-81 81 Aspir-81 81 2- No 1{table QD Aspir-81 MG MG 01-20 t} 81 MG 00:00 :00 Aspir-81 81 Aspir-81 81 2- No 1{table QD Aspir-81 MG MG 01-20 t} 81 MG 00:00 :00 Aspir-81 81 Aspir-81 81 2- No 1{table QD Aspir-81 MG MG 01-20 t} 81 MG 00:00 :00 Immunizations Ordered Immunization Filled Immunization Date Status Commen ts Source Name Name FLUZONE HIGH DOSE FLUZONE HIGH DOSE 2022-09-26 Completed [facility] - OVER 65 OVER 65 09:02:00 [facility] FLUZONE HIGH DOSE FLUZONE HIGH DOSE 2022-09-26 Completed [facility] - OVER 65 OVER 65 09:02:00 [facility] Influenza Hd 2022-09-26 Completed [facility] 00:00:00 [facility] Influenza Hd 2022-09-26 Completed [facility] Influenza Hd 2022-09-26 Completed [facility]:00 [facility] Influenza Hd 2022-09-26 Completed [facility] 00:00:00 of Medicine Influenza 2021-08-04 Completed [employer] [employer] [facility] 00:00:00 of Medicine Influenza 2021-08-04 Completed [facility]ad[facility] 00:00:00 of Medicine Influenza 2021-08-04 Completed [facility] Intradermal 00:00:00 of Medicine Influenza 2021-08-04 Completed [employer] Intradermal 00:00:00 of Medicine Influenza 2021-08-04 Completed [facility] Intradermal 00:00:00 of Medicine Influenza 2021-08-04 Completed [employer] Intradermal 00:00:00 of Medicine Influenza 2021-08-04 Completed [facility] Intradermal 00:00:00 of Medicine Influenza 2021-08-04 Completed [employer] Intradermal 00:00:00 of Medicine Influenza 2021-08-04 Completed [facility] Intradermal 00:00:00 of Medicine Influenza 2021-08-04 Completed [facility] Intradermal 00:00:00 of Medicine Influenza 2021-08-04 Completed [facility] Intradermal 00:00:00 of Medicine Influenza 2021-08-04 Completed [facility] Intradermal 00:00:00 of Medicine Influenza 2021-08-04 Completed [facility] Intradermal 00:00:00 of Medicine Influenza 2021-08-04 Completed [facility] Intradermal 00:00:00 of Medicine Influenza 2021-08-04 Completed [facility] Intradermal 00:00:00 of Medicine Influenza 2021-08-04 Completed [facility] Intradermal 00:00:00 of Medicine Influenza 2021-08-04 Completed [facility] Intradermal 00:00:00 of Medicine Influenza 2021-08-04 Completed [facility] Intradermal 00:00:00 of Medicine Influenza 2021-08-04 Completed [facility] Intradermal 00:00:00 of Medicine Influenza 2021-08-04 Completed [facility] Intradermal 00:00:00 of Medicine Influenza 2021-08-04 Completed [facility] Intradermal 00:00:00 of Medicine Influenza 2021-08-04 Completed [facility] Intradermal 00:00:00 of Medicine Influenza 2021-08-04 Completed [facility] Intradermal 00:00:00 of Medicine Influenza 2021-08-04 Completed [facility] Intradermal 00:00:00 of Medicine Influenza 2021-08-04 Completed [facility] Intradermal 00:00:00 of Medicine Influenza 2021-08-04 Completed [facility] Intradermal 00:00:00 [facility] Medicine Bupivicaine [place] Bupivicaine [place] 2021-02-18 Completed [facility] - 08:53:00 [facility] Kenalog Kenalog 2021-02-18 Completed [facility] - (Triamcinolone) (Triamcinolone) 08:53:00 [facility] Bupivicaine [place] Bupivicaine [place] 2021-02-18 Completed [facility] - 08:53:00 [facility] Kenalog Kenalog 2021-02-18 Completed [facility] - (Triamcinolone) (Triamcinolone) 08:53:00 [facility] Bupivicaine [place] Bupivicaine [place] 2021-02-18 Completed [facility] - 08:53:00 [facility] Cristino Gregg 2021-02-18 Completed [facility] - (Triamcinolone) (Triamcinolone) 08:53:00 [facility] Influenza Quad-PF 2020-07-16 Completed [facility] 00:00:00 [facility] Medicine Influenza Quad-PF 2020-07-16 Completed [facility] 00:00:00 of Medicine Influenza Quad-PF 2020-07-16 Completed [facility] 00:00:00 of Medicine Influenza Quad-PF 2020-07-16 Completed [facility] 00:00:00 [facility] Medicine Influenza Quad-PF 2020-07-16 Completed [facility] 00:00:00 of Medicine Influenza Quad-PF 2020-07-16 Completed [facility] 00:00:00 of Medicine Influenza Quad-PF 2020-07-16 Completed [facility] 00:00:00 of Medicine Influenza Quad-PF 2020-07-16 Completed [facility] 00:00:00 of Medicine Influenza Quad-PF 2020-07-16 Completed [facility] 00:00:00 of Medicine Influenza Quad-PF 2020-07-16 Completed [facility] 00:00:00 of Medicine Influenza Quad-PF 2020-07-16 Completed [facility] 00:00:00 [facility] Medicine Influenza Quad-PF 2020-07-16 Completed [facility] 00:00:00 [facility] Medicine Influenza Quad-PF 2020-07-16 Completed [facility] 00:00:00 of Medicine Influenza Quad-PF 2020-07-16 Completed [facility] 00:00:00 of Medicine Influenza Quad-PF 2020-07-16 Completed [facility] 00:00:00 of Medicine Influenza Quad-PF 2020-07-16 Completed [facility] 00[facility]00:00 of Medicine Influenza Quad-PF 2020-07-16 Completed [facility] 00:00:00 of Medicine Influenza Quad-PF 2020-07-16 Completed [facility] 00:00:00 of Medicine Influenza Quad-PF 2020-07-16 Completed [facility] 00[facility]00:00 of Medicine Influenza Quad-PF 2020-07-16 Completed [facility] 00[facility]00:00 of Medicine Influenza Quad-PF 2020-07-16 Completed [facility] 00[facility]00:00 of Medicine Influenza Quad-PF 2020-07-16 Completed [facility] 00:00:00 of Medicine Influenza Quad-PF 2020-07-16 Completed [facility] 00[facility]00:00 of Medicine Influenza Quad-PF 2020-07-16 Completed [facility] 00:00:00 of Medicine Influenza Quad-PF 2020-07-16 Completed [facility] 00[facility]00:00 of Medicine Influenza Quad-PF 2020-07-16 Completed [facility] 00[facility]00:00 of Medicine Influenza Quad-PF 2020-07-16 Completed [facility] 00:00:00 of Medicine Influenza Quad-PF 2020-07-16 Completed [facility] 00[facility]00:00 of Medicine Influenza Quad-PF 2020-07-16 Completed [facility] 00:00:00 of Medicine Influenza Quad-PF 2020-07-16 Completed [facility] 00:00:00 of Medicine Influenza Quad-PF 2020-07-16 Completed [facility] 00:00:00 of Medicine Influenza Quad-PF 2020-07-16 Completed [facility] 00:00:00 of Medicine Influenza Quad-PF 2020-07-16 Completed [facility] 00:00:00 of Medicine Influenza Quad-PF 2020-07-16 Completed [facility] 00:00:00 of Medicine Influenza Quad-PF 2020-07-16 Completed [facility] 00:00:00 of Medicine Influenza Quad-PF 2020-07-16 Completed [facility] 00:00:00 of Medicine Influenza Quad-PF 2020-07-16 Completed [facility] 00:00:00 of Medicine Influenza Quad-PF 2020-07-16 Completed [facility] 00[facility]00:00 of Medicine Influenza Quad-PF 2019-07-07 Completed [facility] 00:00:00 of Medicine Influenza Quad-PF 2019-07-07 Completed [facility] 00:00:00 of Medicine Influenza Quad-PF 2019-07-07 Completed [facility] 00:00:00 of Medicine Influenza Quad-PF 2019-07-07 Completed [facility] 00:00:00 of Medicine Influenza Quad-PF 2019-07-07 Completed [facility] 00:00:00 of Medicine Influenza Quad-PF 2019-07-07 Completed [facility] 00:00:00 of Medicine Influenza Quad-PF 2019-07-07 Completed [facility] 00:00:00 of Medicine Influenza Quad-PF 2019-07-07 Completed [facility] 00[facility]00:00 of Medicine Influenza Quad-PF 2019-07-07 Completed [facility] 00:00:00 of Medicine Influenza Quad-PF 2019-07-07 Completed [facility] 00:00:00 of Medicine Influenza Quad-PF 2019-07-07 Completed [facility] 00:00:00 of Medicine Influenza Quad-PF 2019-07-07 Completed [facility] 00:00:00 of Medicine Influenza Quad-PF 2019-07-07 Completed [facility] 00:00:00 of Medicine Influenza Quad-PF 2019-07-07 Completed [facility] 00:00:00 of Medicine Influenza Quad-PF 2019-07-07 Completed [facility] 00:00:00 of Medicine Influenza Quad-PF 2019-07-07 Completed [facility] 00:00:00 of Medicine Influenza Quad-PF 2019-07-07 Completed [facility] 00:00:00 of Medicine Influenza Quad-PF 2019-07-07 Completed [facility] 00:00:00 of Medicine Influenza Quad-PF 2019-07-07 Completed [facility] 00:00:00 of Medicine Influenza Quad-PF 2019-07-07 Completed [facility] 00:00:00 of Medicine Influenza Quad-PF 2019-07-07 Completed [facility] 00:00:00 of Medicine Influenza Quad-PF 2019-07-07 Completed [facility] 00:00:00 of Medicine Influenza Quad-PF 2019-07-07 Completed [facility] 00:00:00 of Medicine Influenza Quad-PF 2019-07-07 Completed [facility] 00:00:00 of Medicine Influenza Quad-PF 2019-07-07 Completed [facility] 00:00:00 of Medicine Influenza Quad-PF 2019-07-07 Completed [facility] 00:00:00 of Medicine Influenza Quad-PF 2019-07-07 Completed [facility] 00:00:00 of Medicine Influenza Quad-PF 2019-07-07 Completed [facility] 00:00:00 of Medicine Influenza Quad-PF 2019-07-07 Completed [facility] 00:00:00 of Medicine Influenza Quad-PF 2019-07-07 Completed [facility] 00:00:00 of Medicine Influenza Quad-PF 2019-07-07 Completed [facility] 00:00:00 of Medicine Influenza Quad-PF 2019-07-07 Completed [facility] 00:00:00 of Medicine Influenza Quad-PF 2019-07-07 Completed [facility] 00:00:00 of Medicine Influenza Quad-PF 2019-07-07 Completed [facility] 00:00:00 of Medicine Influenza Quad-PF 2019-07-07 Completed [facility] 00:00:00 of Medicine Influenza Quad-PF 2019-07-07 Completed [facility] 00:00:00 of Medicine Influenza Quad-PF 2019-07-07 Completed [facility] 00:00:00 of Medicine Influenza Quad-PF 2019-07-07 Completed [facility] 00:00:00 of Medicine Influenza Quad-PF 2019-07-07 Completed [facility] 00:00:00 of Medicine Influenza Quad-PF 2019-07-07 Completed [facility] 00:00:00 of Medicine Vital Signs Vital Name [...] HEIGHT 2021-01-08 09:31:00 165.1 cm Systolic blood 2023-01-12 15:18:00 141 mm[Hg] [facility] pressure Medicine Diastolic blood 2023-01-12 15:18:00 84 mm[Hg] [facility] pressure Medicine Heart rate 2023-01-12 15:18:00 90 /min [facility] ol[facility] of Medicine Body height 2023-01-12 15:18:00 162.6 cm [facility] ol[facility] of Medicine Body weight 2023-01-12 15:18:00 74.844 kg [facility] BMI 2023-01-12 15:18:00 28.32 kg/m2 [facility] Systolic blood 2022-12-06 21:15:00 156 mm[Hg] [facility] pressure Medicine Diastolic blood 2022-12-06 21:15:00 83 mm[Hg] [facility] pressure Medicine Heart rate 2022-12-06 21:15:00 65 /min [facility] Medicine Body temperature 2022-12-06 21:15:00 36.39 Leah [facility] Body height 2022-12-06 21:15:00 162.6 cm [facility] of Medicine Body weight 2022-12-06 21:15:00 74.844 kg [facility] of Medicine BMI 2022-12-06 21:15:00 28.32 kg/m2 [facility] Medicine Systolic blood 2022-11-03 20:18:00 112 mm[Hg] [facility] of pressure Medicine Diastolic blood 2022-11-03 20:18:00 64 mm[Hg] [facility] Medicine Heart rate 2022-11-03 20:18:00 76 /min [facility] Medicine Body temperature 2022-11-03 20:18:00 37.17 Leah [facility] Respiratory rate 2022-11-03 20:18:00 16 /min [facility] Body height 2022-11-03 20:18:00 162.6 cm [facility] Body weight 2022-11-03 20:18:00 75.751 kg [facility] BMI 2022-11-03 20:18:00 28.67 kg/m2 [facility] Oxygen saturation in 2022-11-03 20:18:00 98 /min [facility] Arterial blood by Medicine Pulse oximetry Systolic blood 2022-10-04 20:40:00 114 mm[Hg] [facility] pressure Medicine Diastolic blood 2022-10-04 20:40:00 76 mm[Hg] [facility] pressure Medicine Heart rate 2022-10-04 20:40:00 69 /min [facility] Medicine Respiratory rate 2022-10-04 20:34:00 18 /min [facility] Body height 2022-10-04 20:34:00 162.6 cm [facility] Medicine Body weight 2022-10-04 20:34:00 75.932 kg [facility] Medicine BMI 2022-10-04 20:34:00 28.73 kg/m2 [facility] of Medicine Oxygen saturation in 2022-10-04 20:34:00 97 /min [facility] Arterial blood by Medicine Pulse oximetry respiratory rate 2022-09-26 09:10:00 18 /min Comm on [facility] blood pressure 2022-09-26 09:10:00 132 mm[Hg] [facility] - systolic [facility] blood pressure 2022-09-26 09:10:00 70 mm[Hg] [facility] - diastolic [facility] height 2022-09-26 09:10:00 64 [in_i] [facility] weight 2022-09-26 09:10:00 168.3 [lb_av] [facility] temperature 2022-09-26 09:10:00 96.7 [degF] [facility] bmi 2022-09-26 09:10:00 28.89 kg/m2 [facility] oximetry 2022-09-26 09:10:00 98 % [facility] Systolic blood 2022-07-27 14:54:00 122 mm[Hg] [facility] pressure Medicine Diastolic blood 2022-07-27 14:54:00 70 mm[Hg] [facility] pressure Medicine Heart rate 2022-07-27 14:54:00 87 /[facility] 2022-07-27 14:54:00 36.83 Lae[facility] Respiratory rate 2022-07-27 14:54:00 16 /min [facility] Body height 2022-07-27 14:54:00 162.6 cm [facility] weight 2022-07-27 14:54:00 79.289 [facility] BMI 2022-07-27 14:54:00 30.00 kg/m2 [facility] Oxygen saturation in 2022-07-27 14:54:00 98 /min [facility] Arterial blood by Medicine Pulse oximetry Systolic blood 2022-06-30 14:27:00 132 mm[Hg] [facility] pressure Medicine Diastolic blood 2022-06-30 14:27:00 74 mm[Hg] [facility] of pressure Medicine Heart rate 2022-06-30 14:27:00 68 /min [facility] Medicine Body height 2022-06-30 14:27:00 162.6 cm [facility] Medicine Body weight 2022-06-30 14:27:00 81.194 kg [facility] BMI 2022-06-30 14:27:00 30.73 kg/m2 [facility] Oxygen saturation in 2022-06-30 14:27:00 97 /min [facility] Arterial blood by [facility] Pulse oximetry height 2022-06-15 14:00:00 64 [in_i] [facility] weight 2022-06-15 14:00:00 178.2 [lb_av] [facility] temperature 2022-06-15 14:00:00 97.5 [degF] [facility] bmi 2022-06-15 14:00:00 30.58 kg/m2 [facility] oximetry 2022-06-15 14:00:00 99 % [facility] respiratory rate 2022-06-15 14:00:00 16 /min Comm on [facility] blood pressure 2022-06-15 14:00:00 138 mm[Hg] [facility] systolic [facility] blood pressure 2022-06-15 14:00:00 65 mm[Hg] [facility] diastolic [facility] Systolic blood 2022-06-10 14:09:00 138 mm[Hg] [facility] pressure Medicine Diastolic blood 2022-06-10 14:09:00 82 mm[Hg] [facility] of pressure Medicine Heart rate 2022-06-10 14:09:00 62 /min [facility] Medicine Body height 2022-06-10 14:09:00 162.6 cm [facility] Body weight 2022-06-10 14:09:00 81.194 kg [facility] Medicine BMI 2022-06-10 14:09:00 30.73 kg/m2 [facility] height 2022-06-02 10:10:00 64 [in_i] [facility] weight 2022-06-02 10:10:00 177 [lb_av] [facility] temperature 2022-06-02 10:10:00 98.2 [degF] [facility] bmi 2022-06-02 10:10:00 30.38 kg/m2 [facility] oximetry 2022-06-02 10:10:00 98 % [facility] respiratory rate 2022-06-02 10:10:00 16 /min Comm on [facility] blood pressure 2022-06-02 10:10:00 132 mm[Hg] [facility] systolic [facility] blood pressure 2022-06-02 10:10:00 76 mm[Hg] [facility] diastolic [facility] Systolic blood 2022-05-17 14:34:00 132 mm[Hg] [facility] pressure Medicine Diastolic blood 2022-05-17 14:34:00 77 mm[Hg] [facility] pressure Medicine Heart rate 2022-05-17 14:34:00 70 /min [facility] Oxygen saturation in 2022-05-17 14:34:00 98 /min [facility] Arterial blood by Medicine Pulse oximetry Body height 2022-05-17 14:33:00 162.6 cm [facility] Body weight 2022-05-17 14:33:00 [facility].74 [facility] BMI 2022-05-17 14:33:00 30.55 kg/m2 [facility] height 2022-05-16 14:45:00 64 [in_i] [facility] weight 2022-05-16 14:45:00 178 [lb_av] [facility] temperature 2022-05-16 14:45:00 97.4 [degF] [facility] bmi 2022-05-16 14:45:00 30.55 kg/m2 [facility] blood pressure 2022-05-16 14:45:00 138 mm[Hg] [facility] blood pressure 2022-05-16 14:45:00 84 mm[Hg] [facility] Systolic blood 2022-05-06 15:13:00 131 mm[Hg] [facility] Medicine Diastolic blood 2022-05-06 15:13:00 84 mm[Hg] [facility] Medicine Heart rate 2022-05-06 15:13:00 71 /min [facility] Body height 2022-05-06 15:13:00 162.6 cm [facility] Body weight 2022-05-06 15:13:00 81.194 kg [facility] BMI 2022-05-06 15:13:00 30.73 kg/m2 [facility] Syst[facility] blood 2022-05-04 19:54:00 146 mm[Hg] [facility] Medicine Diastolic blood 2022-05-04 19:54:00 82 mm[Hg] [facility] Medicine Heart rate 2022-05-04 19:54:00 69 /min [facility] Body temperature 2022-05-04 19:54:00 36.67 Leah [facility] Respiratory rate 2022-05-04 19:54:00 18 /min [facility] Body height 2022-05-04 19:54:00 162.6 cm [facility] Body weight 2022-05-04 19:54:00 81.375 kg [facility] BMI 2022-05-04 19:54:00 30.79 [facility]/m2 [facility] in 2022-05-04 19:54:00 98 /min [facility] Arterial blood by Medicine Pulse oximetry Systolic blood 2022-04-28 13:08:00 142 mm[Hg] Kaleb villegas of [facility] Diastolic blood 2022-04-28 13:08:00 82 mm[Hg] Unive rsity of pressure [facility] Heart rate 2022-04-28 13:08:00 81 /min [facility] Body height 2022-04-28 13:08:00 165.1 cm [facility] Body weight 2022-04-28 13:08:00 79.833 kg [facility] BMI 2022-04-28 13:08:00 29.29 kg/m2 [facility] Systolic blood 2022-04-12 19:08:00 120 mm[Hg] [facility] Medicine Diastolic blood 2022-04-12 19:08:00 77 mm[Hg] [facility] Medicine Heart rate 2022-04-12 19:08:00 77 /min [facility] Medicine Body temperature 2022-04-12 19:08:00 37.33 [facility] Body height 2022-04-12 19:08:00 162.6 cm [facility] of Medicine Body weight 2022-04-12 19:08:00 79.379 kg [facility] BMI 2022-04-12 19:08:00 30.04 kg/m2 [facility] Systolic blood 2022-03-29 19:53:00 129 mm[Hg] [facility] Medicine Diastolic blood 2022-03-29 19:53:00 81 mm[Hg] [facility] Medicine Heart rate 2022-03-29 19:53:00 75 /min [facility] of Medicine Body height 2022-03-29 19:53:00 162.6 cm [facility] Medicine Body weight 2022-03-29 19:53:00 78.472 kg [facility] BMI 2022-03-29 19:53:00 29.70 kg/m2 [facility] Medicine height 2022-03-24 13:15:00 64 [in_i] [facility] weight 2022-03-24 13:15:00 177 [lb_av] [facility] temperature 2022-03-24 13:15:00 98.5 [degF] [facility] bmi 2022-03-24 13:15:00 30.38 kg/m2 [facility] blood pressure 2022-03-24 13:15:00 142 mm[Hg] [facility] blood pressure 2022-03-24 13:15:00 86 mm[Hg] [facility] Systolic blood 2022-03-18 15:16:00 158 mm[Hg] [facility] pressure Medicine Diastolic blood 2022-03-18 15:16:00 89 mm[Hg] [facility] pressure Medicine Heart rate 2022-03-18 15:16:00 72 /min [facility] Body height 2022-03-18 15:16:00 162.6 cm [facility] Body weight 2022-03-18 15:16:00 78.472 kg [facility] BMI 2022-03-18 15:16:00 29.70 kg/m2 [facility] Medicine Systolic blood 2022-03-16 20:31:00 130 mm[Hg] [facility] pressure Medicine Diastolic blood 2022-03-16 20:31:00 86 mm[Hg] [facility] Medicine Heart rate 2022-03-16 20:31:00 73 /min [facility] Body temperature 2022-03-16 20:31:00 36.94 [facility] Respiratory rate 2022-03-16 20:31:00 18 /min [facility] Body height 2022-03-16 20:31:00 162.6 cm [facility] of Medicine Body weight 2022-03-16 20:31:00 78.472 kg [facility] BMI 2022-03-16 20:31:00 29.70 kg/m2 [facility] Medicine height 2022-03-02 09:20:00 64 [in_i] [facility] weight 2022-03-02 09:20:00 172.0 [lb_av] [facility] temperature 2022-03-02 09:20:00 98.4 [degF] [facility] bmi 2022-03-02 09:20:00 29.52 kg/m2 [facility] oximetry 2022-03-02 09:20:00 98 % [facility] respiratory rate 2022-03-02 09:20:00 18 /min Comm on [facility] blood pressure 2022-03-02 09:20:00 135 mm[Hg] [facility] - systolic [facility] blood pressure 2022-03-02 09:20:00 72 mm[Hg] [facility] diastolic [facility] Systolic blood 2022-02-14 15:56:00 122 mm[Hg] [facility] Medicine Diastolic blood 2022-02-14 15:56:00 78 mm[Hg] [facility] Medicine Heart rate 2022-02-14 15:56:00 79 /min [facility] Body height 2022-02-14 15:56:[address] [facility] Body weight 2022-02-14 15:56:00 78.472 kg [facility] BMI 2022-02-14 15:56:00 29.70 kg/m2 [facility] Systolic blood 2022-02-10 20:50:00 150 mm[Hg] [facility] Medicine Diastolic blood 2022-02-10 20:50:00 87 mm[Hg] [facility] Medicine Heart rate 2022-02-10 20:49:00 77 /min [facility] Respiratory rate 2022-02-10 20:49:00 16 /min [facility] Body height 2022-02-10 20:49:00 162.6 cm [facility] Body weight 2022-02-10 20:49:00 78.472 kg [facility] BMI 2022-02-10 20:49:00 29.70 kg/m2 [facility] Oxygen saturation in 2022-02-10 20:49:00 100 /min [facility] Arterial blood by Medicine Pulse oximetry height 2022-01-17 13:30:00 64 [in_i] [facility] weight 2022-01-17 13:30:00 177 [lb_av] [facility] temperature 2022-01-17 13:30:00 98.3 [degF] [facility] bmi 2022-01-17 13:30:00 30.38 kg/m2 [facility] blood pressure 2022-01-17 13:30:00 136 mm[Hg] [facility] - systolic [facility] blood pressure 2022-01-17 13:30:00 84 mm[Hg] [facility] - diastolic [facility] Systolic blood 2021-12-20 18:57:00 120 mm[Hg] [facility] pressure Medicine Diastolic blood 2021-12-20 18:57:00 72 mm[Hg] [facility] pressure Medicine Heart rate 2021-12-20 18:57:00 75 /min [facility] Body height 2021-12-20 18:57:00 162.6 cm [facility] Body weight 2021-12-20 18:57:00 [facility].472 [facility] BMI 2021-12-20 18:57:00 29.70 kg/m2 [facility] Systolic blood 2021-12-10 15:14:00 140 mm[Hg] [facility] of pressure Medicine Diastolic blood 2021-12-10 15:14:00 80 mm[Hg] [facility] of pressure Medicine Heart rate 2021-12-10 15:14:00 72 /min [facility] Body height 2021-12-10 15:14:00 162.6 cm [facility] Body weight 2021-12-10 15:14:00 78.472 kg [facility] BMI 2021-12-10 15:14:00 29.70 kg/m2 [facility] height 2021-12-02 10:10:00 64 [in_i] [facility] weight 2021-12-02 10:10:00 177.4 [lb_av] [facility] temperature 2021-12-02 10:10:00 98.4 [degF] [facility] bmi 2021-12-02 10:10:00 30.45 kg/m2 [facility] oximetry 2021-12-02 10:10:00 99 % [facility] respiratory rate 2021-12-02 10:10:00 18 /min Comm on [facility] blood pressure 2021-12-02 10:10:00 132 mm[Hg] [facility] - systolic [facility] blood pressure 2021-12-02 10:10:00 72 mm[Hg] [facility] - diastolic [facility] height 2021-12-02 10:40:00 64 [in_i] [facility] weight 2021-12-02 10:40:00 177.4 [lb_av] [facility] temperature 2021-12-02 10:40:00 98.4 [degF] [facility] bmi 2021-12-02 10:40:00 30.45 kg/m2 [facility] oximetry 2021-12-02 10:40:00 99 % [facility] respiratory rate 2021-12-02 10:40:00 18 /min Comm on [facility] blood pressure 2021-12-02 10:40:00 132 mm[Hg] [facility] - systolic [facility] blood pressure 2021-12-02 10:40:00 72 mm[Hg] [facility] - diastolic [facility] Systolic blood 2021-11-17 19:37:00 119 mm[Hg] [facility] Medicine Diastolic blood 2021-11-17 19:37:00 76 mm[Hg] [facility] Medicine Heart rate 2021-11-17 19:36:00 77 /min [facility] Respiratory rate 2021-11-17 19:36:00 16 /min [facility] Body height 2021-11-17 19:36:00 162.6 cm [facility] Body weight 2021-11-17 19:36:00 78.472 kg [facility] BMI 2021-11-17 19:36:00 29.70 kg/m2 [facility] Oxygen saturation in 2021-11-17 19:36:00 99 /min [facility] of Arterial blood by Medicine Pulse oximetry Systolic blood 2021-11-12 22:19:00 130 mm[Hg] [facility] Medicine Diastolic blood 2021-11-12 22:19:00 86 mm[Hg] [facility] Medicine Heart rate 2021-11-12 22:19:00 78 /min [facility] Body temperature 2021-11-12 22:19:00 37 Leah [facility] Body height 2021-11-12 22:19:00 162.6 cm [facility] Body weight 2021-11-12 22:19:00 78.563 kg [facility] BMI 2021-11-12 22:19:00 29.73 kg/m2 [facility] Oxygen saturation in 2021-11-12 22:19:00 100 /min [facility] of Arterial blood by Medicine Pulse oximetry height 2021-11-11 10:00:00 64 [in_i] [facility] weight 2021-11-11 10:00:00 170.8 [lb_av] [facility] temperature 2021-11-11 10:00:00 94.6 [degF] [facility] bmi 2021-11-11 10:00:00 29.31 kg/m2 [facility] blood pressure 2021-11-11 10:00:00 136 mm[Hg] [facility] blood pressure 2021-11-11 10:00:00 78 mm[Hg] [facility] height 2021-10-20 11:15:00 64 [in_i] [facility] weight 2021-10-20 11:15:00 172 [lb_av] [facility] temperature 2021-10-20 11:15:00 96.8 [degF] [facility] bmi 2021-10-20 11:15:00 29.52 kg/m2 [facility] oximetry 2021-10-20 11:15:00 99 % [facility] respiratory rate 2021-10-20 11:15:00 18 /min [facility] blood pressure 2021-10-20 11:15:00 151 mm[Hg] [facility] blood pressure 2021-10-20 11:15:00 70 mm[Hg] [facility] height 2021-10-14 16:20:00 64 [in_i] [facility] weight 2021-10-14 16:20:00 175 [lb_av] [facility] temperature 2021-10-14 16:20:00 97.8 [degF] [facility] bmi 2021-10-14 16:20:00 30.04 kg/m2 [facility] oximetry 2021-10-14 16:20:00 98 % [facility] blood pressure 2021-10-14 16:20:00 153 mm[Hg] [facility] blood pressure 2021-10-14 16:20:00 75 mm[Hg] [facility] height 2021-10-12 13:00:00 64 [in_i] [facility] weight 2021-10-12 13:00:00 175 [lb_av] [facility] temperature 2021-10-12 13:00:00 97.6 [degF] [facility] bmi 2021-10-12 13:00:00 30.04 kg/m2 [facility] blood pressure 2021-10-12 13:00:00 124 mm[Hg] [facility] blood pressure 2021-10-12 13:00:00 72 mm[Hg] [facility] Systolic blood 2021-09-27 20:40:00 148 mm[Hg] [facility] Diastolic blood 2021-09-27 20:40:00 81 mm[Hg] [facility] Heart rate 2021-09-27 20:40:00 74 /min [facility] Body height 2021-09-27 20:40:[address] [facility] Body weight 2021-09-27 20:40:[address] [facility] BMI 2021-09-27 20:40:00 30.21 kg/m2 [facility] Systolic blood 2021-09-22 21:21:00 137 mm[Hg] [facility] Diastolic blood 2021-09-22 21:21:00 75 mm[Hg] [facility] Heart rate 2021-09-22 21:21:00 76 /min [facility] Body temperature 2021-09-22 21:21:00 36 Leah [facility] Body height 2021-09-22 21:21:[address] [facility] height 2021-09-16 14:40:00 64 [in_i] [facility] weight 2021-09-16 14:40:00 174.6 [lb_av] [facility] temperature 2021-09-16 14:40:00 97.5 [degF] [facility] bmi 2021-09-16 14:40:00 29.97 kg/m2 [facility] oximetry 2021-09-16 14:40:00 95 % [facility] blood pressure 2021-09-16 14:40:00 144 mm[Hg] [facility] blood pressure 2021-09-16 14:40:00 77 mm[Hg] [facility] Systolic blood 2021-08-31 15:43:00 133 mm[Hg] [facility] Diastolic blood 2021-08-31 15:43:00 85 mm[Hg] [facility] Heart rate 2021-08-31 15:43:00 70 /min [facility] Respiratory rate 2021-08-31 15:43:00 16 /min [facility] Body height 2021-08-31 15:43:[address] [facility] Body weight 2021-08-31 15:43:[address] [facility] BMI 2021-08-31 15:43:00 30.21 kg/m2 [facility] Oxygen saturation in 2021-08-31 15:43:00 99 /min [facility] blood by [facility] Pulse oximetry height 2021 09:10:00 64 [in_i] [facility] weight 2021 09:10:00 177.6 [lb_av] [facility] temperature 2021 09:10:00 97.4 [degF] [facility] bmi 2021 09:10:00 30.48 kg/m2 [facility] oximetry 2021 09:10:00 97 % [facility] respiratory rate 2021 09:10:00 16 /min [facility] blood pressure 2021 09:10:00 138 mm[Hg] [facility] blood pressure 2021 09:10:00 71 mm[Hg] [facility] - diastolic [facility] Systolic blood 2021-08-18 19:04:00 148 mm[Hg] [facility] Diastolic blood 2021-08-18 19:04:00 78 mm[Hg] [facility] Heart rate 2021-08-18 19:04:00 76 /min [facility] Respiratory rate 2021-08-18 19:04:00 16 /min [facility] height 2021-08-12 13:30:00 64 [in_i] [facility] weight 2021-08-12 13:30:00 175.5 [lb_av] [facility] bmi 2021-08-12 13:30:00 30.12 kg/m2 [facility] blood pressure 2021-08-12 13:30:00 144 mm[Hg] [facility] - systolic [facility] blood pressure 2021-08-12 13:30:00 84 mm[Hg] [facility] - diastolic [facility] Systolic blood 2021-06-30 14:11:00 144 mm[Hg] [facility] Diastolic blood 2021-06-30 14:11:00 81 mm[Hg] [facility] Heart rate 2021-06-30 14:11:00 80 /min [facility] Body temperature 2021-06-30 14:11:00 36.61 Leah [facility] Respiratory rate 2021-06-30 14:11:00 16 /min [facility] Body height 2021-06-30 14:11:[address] [facility] Body weight 2021-06-30 14:11:[address] [facility] BMI 2021-06-30 14:11:00 29.52 kg/m2 [facility] Systolic blood 2021-06-24 19:52:00 131 mm[Hg] [facility] Diastolic blood 2021-06-24 19:52:00 81 mm[Hg] [facility] Heart rate 2021-06-24 19:52:00 92 /min [facility] Respiratory rate 2021-06-24 19:52:00 16 /min [facility] Body height 2021-06-24 19:52:00 162.6 cm [facility] Body weight 2021-06-24 19:52:00 78.019 kg [facility] BMI 2021-06-24 19:52:00 29.52 kg/m2 [facility] Oxygen saturation in 2021-06-24 19:52:00 98 /min [facility] blood by Medicine Pulse oximetry HEIGHT 2021-06-02 08:50:00 157.5 cm WEIGHT 2021-06-02 08:50:00 79.289 kg Systolic blood 2021-06-01 19:52:00 155 mm[Hg] [facility] Diastolic blood 2021-06-01 19:52:00 89 mm[Hg] [facility] Heart rate 2021-06-01 19:52:00 92 /min [facility] Respiratory rate 2021-06-01 19:52:00 16 /min [facility] Body height 2021-06-01 19:52:00 162.6 cm [facility] Body weight 2021-06-01 19:52:00 78.472 kg [facility] BMI 2021-06-01 19:52:00 29.70 [facility]2 [facility] Oxygen saturation in 2021-06-01 19:52:00 98 /min [facility] blood by Medicine Pulse oximetry WEIGHT [...] kg Systolic blood 2021-04-14 20:07:00 145 mm[Hg] [facility] Medicine Diastolic blood 2021-04-14 20:07:00 83 mm[Hg] [facility] Heart rate 2021-04-14 20:07:00 89 /min [facility] Body temperature 2021-04-14 20:07:00 36.44 Leah [facility] Body height 2021-04-14 20:07:00 162.6 cm [facility] Body weight 2021-04-14 20:07:00 81.647 kg [facility] BMI 2021-04-14 20:07:00 30.90 kg/m2 [facility] Systolic blood 2021-04-14 20:07:00 145 mm[Hg] [facility] Medicine Diastolic blood 2021-04-14 20:07:00 83 mm[Hg] [facility] Heart rate 2021-04-14 20:07:00 89 /min [facility] Body temperature 2021-04-14 20:07:00 36.44 Leah [facility] Body height 2021-04-14 20:07:00 162.6 cm [facility] Body weight 2021-04-14 20:07:00 81.647 kg [facility] BMI 2021-04-14 20:07:00 30.90 kg/m2 [facility] WEIGHT 2021-03-22 09:56:00 81.647 kg WEIGHT 2021-03-22 09:56:00 81.647 kg Systolic blood 2021-03-03 17:15:00 159 mm[Hg] [facility] pressure Medicine Diastolic blood 2021-03-03 17:15:00 89 mm[Hg] [facility] pressure Medicine Heart rate 2021-03-03 17:15:00 99 /min [facility] Body height 2021-03-03 17:15:00 162.6 cm [facility] Body weight 2021-03-03 17:15:00 83.915 kg [facility] BMI 2021-03-03 17:15:00 31.76 kg/m2 [facility] Systolic blood 2021-03-03 17:15:00 159 mm[Hg] [facility] pressure Medicine Diastolic blood 2021-03-03 17:15:00 89 mm[Hg] [facility] Heart rate 2021-03-03 17:15:00 99 /min [facility] Body height 2021-03-03 17:15:00 162.6 cm [facility] Body weight 2021-03-03 17:15:00 83.915 kg [facility] BMI 2021-03-03 17:15:00 31.76 kg/m2 [facility] Systolic blood 2021-02-16 14:32:00 143 mm[Hg] [facility] pressure Medicine Diastolic blood 2021-02-16 14:32:00 85 mm[Hg] [facility] pressure Medicine Heart rate 2021-02-16 14:32:00 81 /min [facility] Respiratory rate 2021-02-16 14:32:00 16 /min [facility] Body height 2021-02-16 14:32:00 162.6 cm [facility] Body weight 2021-02-16 14:32:00 84.369 kg [facility] BMI 2021-02-16 14:32:00 31.93 kg/m2 [facility] Oxygen saturation in 2021-02-16 14:32:00 98 /min [facility] Arterial blood by Medicine Pulse oximetry Systolic blood 2021-02-16 14:32:00 143 mm[Hg] [facility] Medicine Diastolic blood 2021-02-16 14:32:00 85 mm[Hg] [facility] Heart rate 2021-02-16 14:32:00 81 /min [facility] Respiratory rate 2021-02-16 14:32:00 16 /min [facility] Body height 2021-02-16 14:32:00 162.6 cm [facility] Body weight 2021-02-16 14:32:00 84.369 kg [facility] BMI 2021-02-16 14:32:00 31.93 kg/m2 [facility] Oxygen saturation in 2021-02-16 14:32:00 98 /min [facility] Arterial blood by Medicine Pulse oximetry Systolic blood 2021-01-25 16:39:00 145 mm[Hg] [facility] pressure Medicine Diastolic blood 2021-01-25 16:39:00 83 mm[Hg] [facility] Medicine Heart rate 2021-01-25 16:39:00 94 /min [facility] Body height 2021-01-25 16:39:00 162.6 cm [facility] Body weight 2021-01-25 16:39:00 83.915 kg [facility] BMI 2021-01-25 16:39:00 31.76 kg/m2 [facility] Systolic blood 2021-01-25 16:39:00 145 mm[Hg] [facility] Medicine Diastolic blood 2021-01-25 16:39:00 83 mm[Hg] [facility] pressure Medicine Heart rate 2021-01-25 16:39:00 94 /min [facility] Body height 2021-01-25 16:39:00 162.6 cm [facility] Body weight 2021-01-25 16:39:00 83.915 kg [facility] BMI 2021-01-25 16:39:00 31.76 kg/m2 [facility] HEIGHT 2021-01-04 12:09:00 165.1 cm WEIGHT 2021-01-04 12:09:00 81.647 kg HEIGHT 2021-01-04 12:09:00 165.1 cm WEIGHT 2021-01-04 12:09:00 81.647 kg Systolic blood 2020-12-02 20:56:00 147 mm[Hg] [facility] pressure Medicine Diastolic blood 2020-12-02 20:56:00 90 mm[Hg] [facility] pressure Medicine Heart rate 2020-12-02 20:56:00 102 /min [facility] Systolic blood 2020-12-02 20:56:00 147 mm[Hg] [facility] pressure Medicine Diastolic blood 2020-12-02 20:56:00 90 mm[Hg] [facility] pressure Medicine Heart rate 2020-12-02 20:56:00 102 /min [facility] Systolic blood 2020-10-12 19:58:00 137 mm[Hg] [facility] Medicine Diastolic blood 2020-10-12 19:58:00 85 mm[Hg] [facility] pressure Medicine Heart rate 2020-10-12 19:58:00 93 /min [facility] Body height 2020-10-12 19:58:00 162.6 cm [facility] Body weight 2020-10-12 19:58:00 86.637 kg [facility] BMI 2020-10-12 19:58:00 32.79 kg/m2 [facility] Systolic blood 2020-10-12 19:58:00 137 mm[Hg] [facility] Medicine Diastolic blood 2020-10-12 19:58:00 85 mm[Hg] [facility] Medicine Heart rate 2020-10-12 19:58:00 93 /min [facility] Body height 2020-10-12 19:58:00 162.6 cm [facility] Body weight 2020-10-12 19:58:00 86.637 kg [facility] BMI 2020-10-12 19:58:00 32.79 kg/m2 [facility] Systolic blood 2020-08-06 19:10:00 133 mm[Hg] [facility] pressure Medicine Diastolic blood 2020-08-06 19:10:00 84 mm[Hg] [facility] pressure Medicine Heart rate 2020-08-06 19:10:00 85 /min [facility] Body height 2020-08-06 19:10:00 162.6 cm [facility] Body weight 2020-08-06 19:10:00 86.637 kg [facility] BMI 2020-08-06 19:10:00 32.79 kg/m2 [facility] Systolic blood 2020-08-06 19:10:00 133 mm[Hg] [facility] pressure Medicine Diastolic blood 2020-08-06 19:10:00 84 mm[Hg] [facility] pressure Medicine Heart rate 2020-08-06 19:10:00 85 /min [facility] Body height 2020-08-06 19:10:00 162.6 cm [facility] Body weight 2020-08-06 19:10:00 86.637 kg [facility] BMI 2020-08-06 19:10:00 32.79 kg/m2 [facility] Systolic blood 2020-04-23 16:34:00 147 mm[Hg] [facility] pressure Medicine Diastolic blood 2020-04-23 16:34:00 81 mm[Hg] [facility] Heart rate 2020-04-23 16:34:00 87 /min [facility] Respiratory rate 2020-04-23 16:34:00 16 /min [facility] Body height 2020-04-23 16:34:00 162.6 cm [facility] Body weight 2020-04-23 16:34:00 85.73 kg [facility] BMI 2020-04-23 16:34:00 32.44 kg/m2 [facility] Oxygen saturation in 2020-04-23 16:34:00 98 /min [facility] Arterial blood by Medicine Pulse oximetry Systolic blood 2020-04-23 16:34:00 147 mm[Hg] [facility] Medicine Diastolic blood 2020-04-23 16:34:00 81 mm[Hg] [facility] pressure Medicine Heart rate 2020-04-23 16:34:00 87 /min [facility] Respiratory rate 2020-04-23 16:34:00 16 /min [facility] Body height 2020-04-23 16:34:00 162.6 cm [facility] Body weight 2020-04-23 16:34:00 85.73 kg [facility] BMI 2020-04-23 16:34:00 32.44 kg/m2 [facility] Oxygen saturation in 2020-04-23 16:34:00 98 /min [facility] Arterial blood by Medicine Pulse oximetry Body weight 2020-01-22 14:44:00 83.915 kg [facility] BMI 2020-01-22 14:44:00 31.76 kg/m2 [facility] Systolic blood 2020-01-22 14:44:00 131 mm[Hg] [facility] pressure Medicine Diastolic blood 2020-01-22 14:44:00 80 mm[Hg] [facility] Medicine Heart rate 2020-01-22 14:44:00 83 /min [facility] Body temperature 2020-01-22 14:44:00 36.61 Leah [facility] Body height 2020-01-22 14:44:00 162.6 cm [facility] Body weight 2020-01-22 14:44:00 83.915 kg [facility] BMI 2020-01-22 14:44:00 31.76 kg/m2 [facility] Systolic blood 2020-01-22 14:44:00 131 mm[Hg] [facility] Medicine Diastolic blood 2020-01-22 14:44:00 80 mm[Hg] [facility] pressure Medicine Heart rate 2020-01-22 14:44:00 83 /min [facility] Body temperature 2020-01-22 14:44:00 36.61 Leah [facility] Body height 2020-01-22 14:44:00 [facility]6 [facility] blood 2019-08-16 17:59:00 138 mm[Hg] [facility] Diastolic blood 2019-08-16 17:59:00 80 mm[Hg] [facility] Heart rate 2019-08-16 17:59:00 78 /min [facility] Body height 2019-08-16 17:59:00 [facility].1 [facility] Body weight 2019-08-16 17:59:00 86.183 [facility] BMI 2019-08-16 17:59:00 31.62 kg/m2 [facility] Systolic blood 2019-08-16 17:59:00 138 mm[Hg] [facility] Diastolic blood 2019-08-16 17:59:00 80 mm[Hg] [facility] Heart rate 2019-08-16 17:59:00 78 /min [facility] Body height 2019-08-16 17:59:[address] [facility] Body weight 2019-08-16 17:59:[address] [facility] BMI 2019-08-16 17:59:00 31.62 kg/m2 [facility] Systolic (mm Hg) 2022-11-09 17:18:00 [facility] Diastolic (mm Hg) 2022-11-09 17:18:00 [facility] Heart Rate 2022-11-09 17:18:00 [facility] Height 2022-11-09 17:18:00 5 [ft_i] [facility] Weight 2022-11-09 17:18:00 [facility] BMI Calculated 2022-11-09 17:18:00 [facility] Systolic (mm Hg) 2022-09-28 17:40:00 [facility] Diastolic (mm Hg) 2022-09-28 17:40:00 [facility] Heart Rate 2022-09-28 17:40:00 [facility] Height 2022-09-28 17:40:00 5 [ft_i] [facility] Weight 2022-09-28 17:40:00 [facility] BMI Calculated 2022-09-28 17:40:00 [facility] Height 2022-08-12 15:38:00 162.56 cm [facility] Weight 2022-08-12 15:38:00 [facility] BMI Calculated 2022-08-12 15:38:00 [facility] Height 2022-08-08 20:15:00 162.56 cm [facility] Weight 2022-08-08 20:15:00 [facility] BMI Calculated 2022-08-08 20:15:00 [facility] Systolic (mm Hg) 2022-07-19 19:39:00 [facility] Diastolic (mm Hg) 2022-07-19 19:39:00 [facility] Heart Rate 2022-07-19 19:39:00 [facility] Respitory Rate 2022-07-19 19:39:00 [facility] Height 2022-07-19 19:39:00 160.02 cm [facility] Weight 2022-07-19 19:39:00 [facility] BMI Calculated 2022-07-19 19:39:00 [facility] Heart Rate 2022-07-08 17:03:00 [facility] Systolic (mm Hg) 2022-07-08 17:03:00 [facility] Diastolic (mm Hg) 2022-07-08 17:03:00 [facility] Height 2022-07-08 17:03:00 162.56 cm [facility] Weight 2022-07-08 17:03:00 [facility] BMI Calculated 2022-07-08 17:03:00 [facility] Systolic (mm Hg) 2022-06-02 19:25:00 [facility] Diastolic (mm Hg) 2022-06-02 19:25:00 [facility] Heart Rate 2022-06-02 19:25:00 [facility] Respitory Rate 2022-06-02 19:25:00 [facility] Height 2022-06-02 19:25:00 160.02 cm [facility] Weight 2022-06-02 19:25:00 [facility] BMI Calculated 2022-06-02 19:25:00 [facility] Systolic (mm Hg) 2022-04-21 20:49:00 [facility] Diastolic (mm Hg) 2022-04-21 20:49:00 [facility] Heart Rate 2022-04-21 20:49:00 [facility] Respitory Rate 2022-04-21 20:49:00 [facility] Height 2022-04-21 20:49:00 160.02 cm [facility] Weight 2022-04-21 20:49:00 [facility] BMI Calculated 2022-04-21 20:49:00 [facility] Heart Rate 2022-03-23 20:13:00 [facility] Systolic (mm Hg) 2022-03-23 20:13:00 [facility] Diastolic (mm Hg) 2022-03-23 20:13:00 [facility] Height 2022-03-23 20:13:00 160.02 cm [facility] Weight 2022-03-23 20:13:00 [facility] BMI Calculated 2022-03-23 20:13:00 [facility] Systolic (mm Hg) 2022-03-14 18:40:00 [facility] Diastolic (mm Hg) 2022-03-14 18:40:00 [facility] Heart Rate 2022-03-14 18:40:00 [facility] Respitory Rate 2022-03-14 18:40:00 [facility] Height 2022-03-14 18:40:00 160.02 cm [facility] Weight 2022-03-14 18:40:00 [facility] BMI Calculated 2022-03-14 18:40:00 [facility] BP Systolic 2020-02-27 09:50:00 153 mm[Hg] BP Diastolic 2020-02-27 09:50:00 90 mm[Hg] Weight Measured 2020-02-27 09:50:00 184.00 pounds Height Measured 2020-02-27 09:50:00 65.00 inches Body Temperature 2020-02-27 09:50:00 98.60 degrees Heart Rate 2020-02-27 09:50:00 95.00 /min Respiratory Rate 2020-02-27 09:50:00 Procedures Procedure Date / Time Performing Clinician Source Performed AMB REF TO PT EXTERNAL 2023-01-16 10:16:14 [facility] AMB REF TO REHAN AUDIOLOGY 2022-12-06 16:31:26 [facility] OR TYMPANOMETRY 2022-12-06 16:27:36 [facility] OR TYMPANOMETRY 2022-12-06 15:09:56 [facility] OR COMPREHENSIVE HEARING 2022-12-06 00:00:00 [facility] OR COMPREHENSIVE HEARING 2022-12-06 00:00:00 [facility] URINALYSIS, COMPLETE 2022-11-03 21:05:00 Arley Alejandre [facility]/REFLEX TO CULTURE Medicine URINALYSIS, COMPLETE 2022-11-03 15:05:00 [facility]/REFLEX TO CULTURE Medicine AMB REF TO GASTROENTEROLOGY 2022-11-03 14:47:49 [facility] ELECTROCARDIOGRAM COMPLETE 2022-10-04 20:40:00 Mohan Dennison [facility] XR HIP 3-4 VIEWS BILATERAL 2022-04-19 19:24:36 [facility] MRI LOWER EXTREMITY 2022-04-11 17:18:36 [facility] EXTERNAL STUDY MRI SPINE EXTERNAL STUDY 2022-04-11 16:56:22 [facility] XR SPINE EXTERNAL STUDY 2022-03-24 19:48:25 [facility] Anoscopy; diagnostic, 2022-03-23 21:58:00 Erika Valenzuela including collection of specimen(s) by brushing or washing, when performed (separate procedure) AMB REF TO PHYSICAL MED 2022-03-21 13:36:35 [facility] POCT URINALYSIS DIPSTICK 2022-03-16 00:00:00 Chuckie White [facility] POCT URINALYSIS DIPSTICK 2022-03-16 00:00:00 [facility] ELECTROCARDIOGRAM COMPLETE 2022-02-10 20:56:00 Mohan Dennison [facility] POCT URINALYSIS DIPSTICK 2021-09-22 00:00:00 Chuckie White [facility] CTA AAA AND RUNOFF 2021-09-10 [facility]09[facility]10 [facility] 2021-08-18 00:00:00 Chuckie White [facility] POCT URINALYSIS DIPSTICK 2021-06-30 00:00[facility]00 [facility] 2021-06-24 19:56:00 Mohan Dennison [facility] POCT URINALYSIS DIPSTICK 2021-04-14 00:00:00 Chuckie White [facility] POCT URINALYSIS DIPSTICK 2021-03-03 00:00:00 Chuckie White [facility] ELECTROCARDIOGRAM COMPLETE 2021-02-16 14:39:00 Mohan Dennison [facility] POCT URINALYSIS DIPSTICK 2020-12-02 00:00:00 Chuckie White [facility] Hernia repair [facility] Stent placement<sup>2</sup> [place] rial [place] [facility]<sup>1</sup> [facility] Surgery<sup>3</sup> [facility] Plan of Care Planned Activity Planned Date Details Comments Source Future Scheduled 2027-09-27 Screening for malignant [facility] Test 00:00:00 neoplasm of colon Medical Ce nter (procedure) [code = 861117431] Future Scheduled 2027-09-27 Screening for malignant [facility] Test 00:00:00 neoplasm of colon Medical Ce [facility] (procedure) [code = 721868111] Future Scheduled 2027-09-27 Screening for malignant [facility] Test 00:00:00 neoplasm of colon Medical Ce nter (procedure) [code = 955162707] Future Scheduled 2027-09-27 Screening for malignant [facility] Test 00:00:00 neoplasm of colon Medical Ce nter (procedure) [code = 836116139] Future Scheduled 2027-09-27 Screening for malignant [facility] Test 00:00:00 neoplasm of colon Medical Ce nter (procedure) [code = 357476699] Future Scheduled 2027-09-27 Screening for malignant [facility] Test 00:00:00 neoplasm of colon Medical Ce nter (procedure) [code = 867222040] Future Scheduled 2027-09-27 Screening for malignant [facility] Test 00:00:00 neoplasm of colon Medical Ce nter (procedure) [code = 980634809] Future Scheduled 2027-09-27 Screening for malignant [facility] Test 00:00:00 neoplasm of colon Medical Ce nter (procedure) [code = 184601134] Future Scheduled 2027-09-27 Screening for malignant [facility] Test 00:00:00 neoplasm of colon Medical Ce nter (procedure) [code = 382830923] Future Scheduled 2027-09-27 Screening for malignant [facility] Test 00:00:00 neoplasm of colon Medical Ce nter (procedure) [code = 729632407] Future Scheduled 2027-09-27 Screening for malignant [facility] Test 00:00:00 neoplasm of colon Medical Ce nter (procedure) [code = 559377258] Future Scheduled 2027-09-27 Screening for malignant [facility] Test 00:00:00 neoplasm of colon Medical Ce nter (procedure) [code = 356309426] Future Scheduled 2027-09-27 Screening for malignant [facility] Test 00:00:00 neoplasm of colon Medical Ce nter (procedure) [code = 011339338] Future Scheduled 2027-09-27 Screening for malignant [facility] Test 00:00:00 neoplasm of colon Medical Ce nter (procedure) [code = 132749524] Future Scheduled 2027-09-27 Screening for malignant [facility] Test 00:00:00 neoplasm of colon Medical Ce nter (procedure) [code = 183760745] Future Scheduled 2027-09-27 Screening for malignant [facility] Test 00:00:00 neoplasm of colon Medical Ce nter (procedure) [code = 555970691] Future Scheduled 2027-09-27 Screening for malignant [facility] Test 00:00:00 neoplasm of colon Medical Ce nter (procedure) [code = 884726068] Future Scheduled 2027-09-27 Screening for malignant [facility] Test 00:00:00 neoplasm of colon Medical Ce nter (procedure) [code = 921108136] Future Scheduled 2027-09-27 Screening for malignant [facility] Test 00:00:00 neoplasm of colon Medical Ce nter (procedure) [code = 794295259] Future Scheduled 2027-09-27 Screening for malignant [facility] Test 00:00:00 neoplasm of colon Medical Ce nter (procedure) [code = 814397138] Future Scheduled 2027-09-27 Screening for malignant [facility] Test 00:00:00 neoplasm of colon Medical Ce nter (procedure) [code = 632584489] Future Scheduled 2027-09-27 Screening for malignant [facility] Test 00:00:00 neoplasm of colon Medical Ce nter (procedure) [code = 548845005] Future Scheduled 2027-09-27 Screening for malignant [facility] Test 00:00:00 neoplasm of colon Medical Ce nter (procedure) [code = 503133729] Future Scheduled 2027-09-27 Screening for malignant [facility] Test 00:00:00 neoplasm of colon Medical Ce nter (procedure) [code = 955046333] Future Scheduled 2027-09-27 Screening for malignant [facility] Test 00:00:00 neoplasm of colon Medical Ce nter (procedure) [code = 449560154] Future Scheduled 2027-09-27 Screening for malignant [facility] Test 00:00:00 neoplasm of colon Medical Ce nter (procedure) [code = 954323981] Future Scheduled 2027-09-27 Screening for malignant [facility] Test 00:00:00 neoplasm of colon Medical Ce nter (procedure) [code = 423614201] Future Scheduled 2027-09-27 Screening for malignant [facility] Test 00:00:00 neoplasm of colon Medical Ce nter (procedure) [code = 391678243] Future Scheduled 2027-09-27 Screening for malignant [facility] Test 00:00:00 neoplasm of colon Medical Ce nter (procedure) [code = 516207880] Future Scheduled 2027-09-27 Screening for malignant [facility] Test 00:00:00 neoplasm of colon Medical Ce nter (procedure) [code = 593132585] Future Scheduled 2027-09-27 Screening for malignant [facility] Test 00:00:00 neoplasm of colon Medical Ce nter (procedure) [code = 267541818] Future Scheduled 2027-09-27 Screening for malignant [facility] Test 00:00:00 neoplasm of colon Medical Ce nter (procedure) [code = 863231066] Future Scheduled 2027-09-27 Screening for malignant [facility] Test 00:00:00 neoplasm of colon Medical Ce nter (procedure) [code = 226954039] Future Scheduled 2027-09-27 Screening for malignant [facility] Test 00:00:00 neoplasm of colon Medical Ce nter (procedure) [code = 195078729] Future Scheduled 2027-09-27 Screening for malignant [facility] Test 00:00:00 neoplasm of colon Medical Ce nter (procedure) [code = 023759554] Future Scheduled 2027-09-27 Screening for malignant [facility] Test 00:00:00 neoplasm of colon Medical Ce nter (procedure) [code = 805230208] Future Scheduled 2024-05-11 Lipid panel (procedure) [facility] Test 00:00:00 [code = 06601644] Medical Ce nter Future Scheduled 2024-05-11 Lipid panel (procedure) [facility] Test 00:00:00 [code = 37568975] Medical Ce nter Future Scheduled 2024-05-11 Lipid panel (procedure) [facility] Test 00:00:00 [code = 59622790] Medical Ce nter Future Scheduled 2023-01-16 MRI SHOULDER RIGHT WO 1 Occurrences [facility] [employer] Test 10:17:47 CONTRAST [code = 72621] starting of M edicine 01/16/2023 until 01/17/2024 Future Scheduled 2023-01-16 COVID-19 Vaccine (#1) [employer] Test 10:00:19 [code = COVID-19 of Medicine Vaccine (#1)] Future Scheduled 2023-01-16 Diabetic foot [facility] Test 10:00:19 examination of Medicine (regime/therapy) [code = 046632123] Future Scheduled 2023-01-16 Annual Diabetic [facility] Test 10:00:19 Retinopathy Screening of Med icine [code = Annual Diabetic Retinopathy Screening] Future Scheduled 2023-01-16 Hepatitis C screening [facility] Test 10:00:19 (procedure) [code = of Medic ine 334638141] Future Scheduled 2023-01-16 ZOSTER VACCINE (1 of 2) [facility] Test 10:00:19 [code = ZOSTER VACCINE of Me dicine (1 of 2)] Future Scheduled 2023-01-16 Medicare Awv (Initial) B [facility] Test 10:00:19 [code = Medicare Awv of Vuclip cine (Initial)] Future Scheduled 2023-01-16 Abdominal aortic [facility] Test 10:00:19 aneurysm screening of Medici ne (procedure) [code = 813712331] Future Scheduled 2023-01-16 Hemoglobin A1c [facility] Test 10:00:19 measurement (procedure) of Samir arreaga [code = 33428219] Future Scheduled 2023-01-16 BMI Follow Up Plan [facility] Test 10:00:19 [code = BMI Follow Up of Med icine Plan] Future Scheduled 2023-01-16 TETANUS SHOT (ADULT) [facility] 10:00:19 [code = TETANUS SHOT 1970 of Medi Auth0 (ADULT)] (Postpone Reason: Patient declined today) Future Scheduled 2023-01-16 Fall Screen [code = [employer] Test 10:00:19 Fall Screen] of Medicine Future Scheduled 2023-01-16 Screening for malignant [facility] Test 10:00:19 neoplasm of colon of Medicin e (procedure) [code = 684401941] Future Scheduled 2023-01-16 [facility]44 [code = COVID-19 Hospital VACCINE (#1)] Future Scheduled 2023-01-16 [facility] C screening [facility] 09:05:44 (procedure) [code = Hospital 976931035] Future Scheduled 2023-01-16 [facility]ING [facility] 09:05:44 [code = COLONOSCOPY Hospital SCREENING] Future Scheduled 2023-01-16 SHINGLES VACCINES (1 of [facility] 09:05:44 2) [code = SHINGLES Hospital VACCINES (1 of 2)] Future Scheduled 2023-01-16 HEPATITIS B VACCINES (1 [facility] 09:05:44 of 3 - Risk 3-dose Hospital series) [code = HEPATITIS B VACCINES (1 of 3 - Risk 3-dose series)] Future Scheduled 2023-01-16 65+ [facility] Test 09:05:44 VACCINE (1 - PCV) [code Hosp ital = 65+ PNEUMOCOCCAL VACCINE (1 - PCV)] Future Scheduled 2023-01-16 INFLUENZA VACCINE [code [facility] Test 09:05:44 = INFLUENZA VACCINE] Hospita l Future Scheduled 2023-01-12 COVID-19 Vaccine (#1) [facility] Test 11:17:53 [code = COVID-19 of Medicine Vaccine (#1)] Future Scheduled 2023-01-12 Diabetic foot [facility] Test 11:17:53 examination of Medicine (regime/therapy) [code = 984812597] Future Scheduled 2023-01-12 Annual Diabetic [facility] Test 11:17:53 Retinopathy Screening of Med icine [code = Annual Diabetic Retinopathy Screening] Future Scheduled 2023-01-12 Hepatitis C screening [facility] Test 11:17:53 (procedure) [code = of Medic ine 912825189] Future Scheduled 2023-01-12 ZOSTER VACCINE (1 of 2) [facility] Test 11:17:53 [code = ZOSTER VACCINE of Me dicine (1 of 2)] Future Scheduled 2023-01-12 Medicare Awv (Initial) B [facility] Test 11:17:53 [code = Medicare Awv of [facility] cine (Initial)] Future Scheduled 2023-01-12 Abdominal aortic [facility] Test 11:17:53 aneurysm screening of Medici ne (procedure) [code = 433451527] Future Scheduled 2023-01-12 Hemoglobin A1c [facility] [employer] Test 11:17:53 measurement (procedure) of M edicine [code = 76832054] Future Scheduled 2023-01-12 BMI Follow Up Plan [facility] Test 11:17:53 [code = BMI Follow Up of Med icine Plan] Future Scheduled 2023-01-12 TETANUS SHOT (ADULT) Postponed from B [facility] Test 11:17:53 [code = TETANUS SHOT 1970 of Medi Auth0 (ADULT)] (Postpone Reason: Patient declined today) Future Scheduled 2023-01-12 Fall Screen [code = [employer] Test 11:17:53 Fall Screen] of Medicine Future Scheduled 2023-01-12 Screening for malignant [facility] Test 11:17:53 neoplasm of colon of Medicin e (procedure) [code = 312281494] Future Scheduled 2023-01-12 US 1 Occurrences [facility] Test 09:45:00 AORTA,IVC,ILIACS,GRAFT starting of Me dicine COMPLETE DUPLEX [code = 01/12/2023 until 72155-8] 01/13/2024 Future Scheduled 2022-12-07 COVID-19 Vaccine (#1) [facility] [employer] Test 16:04:26 [code = COVID-19 of Medicine Vaccine (#1)] Future Scheduled 2022-12-07 Diabetic foot [facility] Test 16:04:26 examination of Medicine (regime/therapy) [code = 050159806] Future Scheduled 2022-12-07 Annual Diabetic [facility] Test 16:04:26 Retinopathy Screening of Med icine [code = Annual Diabetic Retinopathy Screening] Future Scheduled 2022-12-07 Hepatitis C screening [facility] [employer] Test 16:04:26 (procedure) [code = of Medic ine 502543471] Future Scheduled 2022-12-07 ZOSTER VACCINE (1 of 2) [facility] Test 16:04:26 [code = ZOSTER VACCINE of Me dicine (1 of 2)] Future Scheduled 2022-12-07 Medicare Awv (Initial) B [facility] Test 16:04:26 [code = Medicare Awv of Medi cine (Initial)] Future Scheduled 2022-12-07 Abdominal aortic [facility] Test 16:04:26 aneurysm screening of Medici ne (procedure) [code = 886242281] Future Scheduled 2022-12-07 Hemoglobin A1c [facility] Test 16:04:26 measurement (procedure) of M edicine [code = 93126965] Future Scheduled 2022-12-07 BMI Follow Up Plan [facility] Test 16:04:26 [code = BMI Follow Up of Med icine Plan] Future Scheduled 2022-12-07 Fall Screen [code = [employer] Test 16:04:26 Fall Screen] of Medicine Future Scheduled 2022-12-07 TETANUS SHOT (ADULT) Postponed from [facility] [employer] Test 16:04:26 [code = TETANUS SHOT 1970 of Medi [facility] (ADULT)] (Postpone Reason: Patient declined today) Future Scheduled 2022-12-07 Screening for malignant [facility] Test 16:04:26 neoplasm of colon of Medicin e (procedure) [code = 393081774] Future Scheduled 2022-12-06 CT TEMPORAL BONES W/O 1 Occurrences B [facility] Test 17:02:40 CONTRAST [code = [facility] 64699-0] 12/06/2022 until 12/06/2023 Future Scheduled 2022-11-30 COVID-[facility] (#[facility]) [facility]:02 [code = COVID-19 Hospital VACCINE (#1)] Future Scheduled 2022-11-30 Hep[facility] C screening [facility] 14:59:02 (procedure) [code = Hospital 916981050] Future Scheduled 2022-11-30 [facility]CREENING [facility] 14:59:02 [code = COLONOSCOPY Hospital SCREENING] Future Scheduled 2022-11-30 SHINGLES VACCINES (1 of [facility] 14:59:02 2) [code = SHINGLES Hospital VACCINES (1 of 2)] Future Scheduled 2022-11-30 HEPATITIS B VACCINES (1 [facility] 14:59:02 of 3 - Risk 3-dose Hospital series) [code = HEPATITIS B VACCINES (1 of 3 - Risk 3-dose series)] Future Scheduled 2022-11-30 65+ [facility] Test 14:59:02 VACCINE (1 - PCV) [code Hosp ital = 65+ PNEUMOCOCCAL VACCINE (1 - PCV)] Future Scheduled 2022-11-30 INFLUENZA VACCINE [code [facility] Test 14:59:02 = INFLUENZA VACCINE] Hospita l Future Scheduled 2022-11-30 COVID-19 VACCINE (#1) [facility] 14:59:02 [code = COVID-19 Hospital VACCINE (#1)] Future Scheduled 2022-11-30 [facility] C screening [facility] 14:59:02 (procedure) [code = Hospital 835006033] Future Scheduled 2022-11-30 [facility]CREENING [facility] 14:59:02 [code = COLONOSCOPY Hospital SCREENING] Future Scheduled 2022-11-30 SHINGLES VACCINES (1 of [facility] Test 14:59:02 2) [code = SHINGLES Hospital VACCINES (1 of 2)] Future Scheduled 2022-11-30 HEPATITIS B VACCINES (1 [facility] Test 14:59:02 of 3 - Risk 3-dose Hospital series) [code = HEPATITIS B VACCINES (1 of 3 - Risk 3-dose series)] Future Scheduled 2022-11-30 65+ [facility] Test 14:59:02 VACCINE (1 - PCV) [code Hosp ital = 65+ PNEUMOCOCCAL VACCINE (1 - PCV)] Future Scheduled 2022-11-30 INFLUENZA VACCINE [code [facility] Test 14:59:02 = INFLUENZA VACCINE] Hospita l Future Scheduled 2022-11-[address] [facility] Test 00:00:00 (12+) [code = Medical Center DEPRESSION SCREENING (12+)] Future Scheduled 2022-11-06 FALLS RISK SCREENING [facility] Test 00:00:00 [code = FALLS RISK Medical C enter SCREENING] Future Scheduled 2022-11-[address] [facility] Test 00:00:00 (12+) [code = Medical Center DEPRESSION SCREENING (12+)] Future Scheduled 2022-11-06 FALLS RISK SCREENING [facility] Test 00:00:00 [code = FALLS RISK Medical C enter SCREENING] Future Scheduled 2022-11-[address] [facility] Test 00:00:00 (12+) [code = Medical Center DEPRESSION SCREENING (12+)] Future Scheduled 2022-11-06 FALLS RISK SCREENING [facility] Test 00:00:00 [code = FALLS RISK Medical C enter SCREENING] Future Scheduled 2022-11-[address] [facility] Test 00:00:00 (12+) [code = Medical Center DEPRESSION SCREENING (12+)] Future Scheduled 2022-11-06 FALLS RISK SCREENING [facility] Test 00:00:00 [code = FALLS RISK Medical C enter SCREENING] Future Scheduled 2022-11-[address] [facility] Test 00:00:00 (12+) [code = Medical Center DEPRESSION SCREENING (12+)] Future Scheduled 2022-11-06 FALLS RISK SCREENING [facility] Test 00:00:00 [code = FALLS RISK Medical C enter SCREENING] Future Scheduled 2022-11-[address] [facility] Test 00:00:00 (12+) [code = Medical Center DEPRESSION SCREENING (12+)] Future Scheduled 2022-11-06 FALLS RISK SCREENING [facility] Test 00:00:00 [code = FALLS RISK Medical C enter SCREENING] Future Scheduled 2022-11-[address] [facility] Test 00:00:00 (12+) [code = Medical Center DEPRESSION SCREENING (12+)] Future Scheduled 2022-11-06 FALLS RISK SCREENING [facility] Test 00:00:00 [code = FALLS RISK Medical C enter SCREENING] Future Scheduled 2022-11-[address] [facility] Test 00:00:00 (12+) [code = Medical Center DEPRESSION SCREENING (12+)] Future Scheduled 2022-11-06 FALLS RISK SCREENING [facility] Test 00:00:00 [code = FALLS RISK Medical C enter SCREENING] Future Scheduled 2022-11-[address] [facility] Test 00:00:00 (12+) [code = Medical Center DEPRESSION SCREENING (12+)] Future Scheduled 2022-11-06 FALLS RISK SCREENING [facility] Test 00:00:00 [code = FALLS RISK Medical C enter SCREENING] Future Scheduled 2022-11-04 COVID-19 Vaccine (#1) [employer] Test 10:54:37 [code = COVID-19 of Medicine Vaccine (#1)] Future Scheduled 2022-11-04 Diabetic foot [facility] Test 10:54:37 examination of Medicine (regime/therapy) [code = 039493469] Future Scheduled 2022-11-04 ANNUAL DIABETIC [facility] Test 10:54:37 RETINOPATHY SCREENING of Med icine [code = ANNUAL DIABETIC RETINOPATHY SCREENING] Future Scheduled 2022-11-04 Hepatitis C screening [employer] Test 10:54:37 (procedure) [code = of Medic ine 612878605] Future Scheduled 2022-11-04 ZOSTER VACCINE (1 of 2) [employer] Test 10:54:37 [code = ZOSTER VACCINE of Me dicine (1 of 2)] Future Scheduled 2022-11-04 MEDICARE AWV (Initial) [facility] [employer] Test 10:54:37 [code = MEDICARE AWV of Medi cine (Initial)] Future Scheduled 2022-11-04 Abdominal aortic [facility] Test 10:54:37 aneurysm screening of Medici ne (procedure) [code = 641602644] Future Scheduled 2022-11-04 Hemoglobin A1c [facility] Test 10:54:37 measurement (procedure) of M edicine [code = 81915746] Future Scheduled 2022-11-04 BMI FOLLOW UP PLAN [facility] Test 10:54:37 [code = BMI FOLLOW UP of Med tk PLAN] Future Scheduled 2022-11-04 FALL SCREEN [code = [facility] Test 10:54:37 FALL SCREEN] of Medicine Future Scheduled 2022-11-04 TETANUS SHOT (ADULT) Postponed from B [facility] Test 10:54:37 [code = TETANUS SHOT 1970 of Medi cine (ADULT)] (Postpone Reason: Patient declined today) Future Scheduled 2022-11-04 Screening for malignant [facility] Test 10:54:37 neoplasm of colon of Medicin e (procedure) [code = 290530875] Future Scheduled 2022-10-04 COVID-19 Vaccine (#1) [facility] Test 15:25:17 [code = COVID-19 of Medicine Vaccine (#1)] Future Scheduled 2022-10-04 Diabetic foot [facility] Test 15:25:17 examination of Medicine (regime/therapy) [code = 118555898] Future Scheduled 2022-10-04 ANNUAL DIABETIC [facility] Test 15:25:17 RETINOPATHY SCREENING of Jasvir kayne [code = ANNUAL DIABETIC RETINOPATHY SCREENING] Future Scheduled 2022-10-04 Hepatitis C screening [facility] Test 15:25:17 (procedure) [code = of Medic ine 918316526] Future Scheduled 2022-10-04 ZOSTER VACCINE (1 of 2) [facility] Test 15:25:17 [code = ZOSTER VACCINE of In dicine (1 of 2)] Future Scheduled 2022-10-04 [facility] 15:25:17 [code = MEDICARE AWV of Medi cine (Initial)] Future Scheduled 2022-10-04 Abdominal aortic [facility] Test 15:25:17 aneurysm screening of Medici ne (procedure) [code = 279754603] Future Scheduled 2022-10-04 Hemoglobin A1c [facility] Test 15:25:17 measurement (procedure) of M edicine [code = 31430566] Future Scheduled 2022-10-04 FLU VACCINE > 6 MONTHS Postponed from [facility] Test 15:25:17 [code = FLU VACCINE > 6 06/06/2022 of M edicine MONTHS] (Postpone Reason: Patient declined today) Future Scheduled 2022-10-04 BMI FOLLOW UP PLAN [facility] [place] Test 15:25:17 [code = BMI FOLLOW UP of Med icine PLAN] Future Scheduled 2022-10-04 FALL SCREEN [code = [facility] or [place] Test 15:25:17 FALL SCREEN] of Medicine Future Scheduled 2022-10-04 TETANUS SHOT (ADULT) Postponed from B [facility] Test 15:25:17 [code = TETANUS SHOT 1970 of Medi cine (ADULT)] (Postpone Reason: Patient declined today) Future Scheduled 2022-10-04 Screening for malignant [facility] Test 15:25:17 neoplasm of colon of Medicin e (procedure) [code = 202936447] Future Scheduled 2022-10-04 ELECTROCARDIOGRAM [facility] Test 14:36:42 COMPLETE [code = 47818] of edicine Future Scheduled 2022-10-04 INFLUENZA VACCINE [code [facility] Test 14:30:27 = INFLUENZA VACCINE] Hospita l Future Scheduled 2022-10-04 COVID-19 [facility]ACCINE (#[facility]) [facility] 14:30:27 [code = COVID-19 Hospital VACCINE (#1)] Future Scheduled 2022-10-04 [facility] C screening [facility] 14:30:27 (procedure) [code = Hospital 222122634] Future Scheduled 2022-10-04 [facility]OSCOPY [facility]CREENING [facility] 14:30:27 [code = COLONOSCOPY Hospital SCREENING] Future Scheduled 2022-10-04 SHINGLES VACCINES (1 of [facility] Test 14:30:27 2) [code = SHINGLES Hospital VACCINES (1 of 2)] Future Scheduled 2022-10-04 HEPATITIS B VACCINES (1 [facility] Test 14:30:27 of 3 - Risk 3-dose Hospital series) [code = HEPATITIS B VACCINES (1 of 3 - Risk 3-dose series)] Future Scheduled 2022-10-04 65[facility] Test 14:30:27 VACCINE (1 - PCV) [code Hosp ital = 65+ PNEUMOCOCCAL VACCINE (1 - PCV)] Future Scheduled 2022-09-16 COVID-19 VACCINE (#1) [facility] 13:19:06 [code = COVID-19 Hospital VACCINE (#1)] Future Scheduled 2022-09-16 [facility] C screening [facility] 13:19:06 (procedure) [code = Hospital 917942634] Future Scheduled 2022-09-16 [facility]CREENING [facility] 13:19:06 [code = COLONOSCOPY Hospital SCREENING] Future Scheduled 2022-09-16 SHINGLES VACCINES (1 of [facility] Test 13:19:06 2) [code = SHINGLES Hospital VACCINES (1 of 2)] Future Scheduled 2022-09-16 HEPATITIS B VACCINES (1 [facility] Test 13:19:06 of 3 - Risk 3-dose Hospital series) [code = HEPATITIS B VACCINES (1 of 3 - Risk 3-dose series)] Future Scheduled 2022-09-16 65[facility] [facility] Test 13:19:06 VACCINE (1 - PCV) [code Hosp ital = 65+ PNEUMOCOCCAL VACCINE (1 - PCV)] Future Scheduled 2022-09-16 INFLUENZA VACCINE [code [facility] Test 13:19:06 = INFLUENZA VACCINE] Hospita l Future Scheduled 2022-08-[address] [facility] [address] [facility] Test 00[facility]00:00 WELLNESS (YEAR 2 or Medical Center FIRST YEAR if no IPPE) [code = MEDICARE ANNUAL WELLNESS (YEAR 2 or FIRST YEAR if no IPPE)] Future Scheduled 2022-08-[address] [facility] Test 00:00:00 WELLNESS (YEAR 2 or Medical Center FIRST YEAR if no IPPE) [code = MEDICARE ANNUAL WELLNESS (YEAR 2 or FIRST YEAR if no IPPE)] Future Scheduled 2022-08-[address] [facility] Test 00:00:00 WELLNESS (YEAR 2 or Medical Center FIRST YEAR if no IPPE) [code = MEDICARE ANNUAL WELLNESS (YEAR 2 or FIRST YEAR if no IPPE)] Future Scheduled 2022-08-[address] [facility] Test 00:00:00 WELLNESS (YEAR 2 or Medical Center FIRST YEAR if no IPPE) [code = MEDICARE ANNUAL WELLNESS (YEAR 2 or FIRST YEAR if no IPPE)] Future Scheduled 2022-08-[address] [facility] Test 00:00:00 WELLNESS (YEAR 2 or Medical Center FIRST YEAR if no IPPE) [code = MEDICARE ANNUAL WELLNESS (YEAR 2 or FIRST YEAR if no IPPE)] Future Scheduled 2022-08-[address] [facility] Test 00:00:00 WELLNESS (YEAR 2 or Medical Center FIRST YEAR if no IPPE) [code = MEDICARE ANNUAL WELLNESS (YEAR 2 or FIRST YEAR if no IPPE)] Future Scheduled 2022-08-[address] [facility] Test 00:00:00 WELLNESS (YEAR 2 or Medical Center FIRST YEAR if no IPPE) [code = MEDICARE ANNUAL WELLNESS (YEAR 2 or FIRST YEAR if no IPPE)] Future Scheduled 2022-08-[address] [facility] Test 00:00:00 WELLNESS (YEAR 2 or Medical Center FIRST YEAR if no IPPE) [code = MEDICARE ANNUAL WELLNESS (YEAR 2 or FIRST YEAR if no IPPE)] Future Scheduled 2022-08-[address] [facility] Test 00:00:00 WELLNESS (YEAR 2 or Medical Center FIRST YEAR if no IPPE) [code = MEDICARE ANNUAL WELLNESS (YEAR 2 or FIRST YEAR if no IPPE)] Future Scheduled 2022-08-[address] [facility] Test 00:00:00 WELLNESS (YEAR 2 or Medical Center FIRST YEAR if no IPPE) [code = MEDICARE ANNUAL WELLNESS (YEAR 2 or FIRST YEAR if no IPPE)] Future Scheduled 2022-08-[address] [facility] Test 00:00:00 WELLNESS (YEAR 2 or Medical Center FIRST YEAR if no IPPE) [code = MEDICARE ANNUAL WELLNESS (YEAR 2 or FIRST YEAR if no IPPE)] Future Scheduled 2022-08-[address] [facility] Test 00:00:00 WELLNESS (YEAR 2 or Medical Center FIRST YEAR if no IPPE) [code = MEDICARE ANNUAL WELLNESS (YEAR 2 or FIRST YEAR if no IPPE)] Future Scheduled 2022-08-[address] [facility] Test 00:00:00 WELLNESS (YEAR 2 or Medical Center FIRST YEAR if no IPPE) [code = MEDICARE ANNUAL WELLNESS (YEAR 2 or FIRST YEAR if no IPPE)] Future Scheduled 2022-08-[address] [facility] Test 00:00:00 WELLNESS (YEAR 2 or Medical Center FIRST YEAR if no IPPE) [code = MEDICARE ANNUAL WELLNESS (YEAR 2 or FIRST YEAR if no IPPE)] Future Scheduled 2022-08-[address] [facility] Test 00:00:00 WELLNESS (YEAR 2 or Medical Center FIRST YEAR if no IPPE) [code = MEDICARE ANNUAL WELLNESS (YEAR 2 or FIRST YEAR if no IPPE)] Future Scheduled 2022-07-29 Diabetic foot [facility] Test 16:56:02 examination of Medicine (regime/therapy) [code = [id number]] Future Scheduled 2022-07-29 ANNUAL DIABETIC [facility] Test 16:56:02 RETINOPATHY SCREENING of Med icine [code = ANNUAL DIABETIC RETINOPATHY SCREENING] Future Scheduled 2022-07-29 Hepatitis C screening [facility] Test 16:56:02 (procedure) [code = of Medic ine [id number]] Future Scheduled 2022-07-29 ZOSTER VACCINE (1 of 2) [facility] Test 16:56:02 [code = ZOSTER VACCINE of Me dicine (1 of 2)] Future Scheduled 2022-07-29 Abdominal aortic [facility] Test 16:56:02 aneurysm screening of Medici ne (procedure) [code = 275121678] Future Scheduled 2022-07-29 Hemoglobin A1c [facility] Test 16:56:02 measurement (procedure) of M edicine [code = 81770266] Future Scheduled 2022-07-29 COVID-19 Vaccine (#1) Postponed from [facility] Test 16:56:02 [code = COVID-19 02/25/1956 of Medicine Vaccine (#1)] (Postpone Reason: Patient declined today) Future Scheduled 2022-07-29 FLU VACCINE > 6 MONTHS Postponed from [facility] Test 16:56:02 [code = FLU VACCINE > 6 06/06/2022 of M edicine MONTHS] (Postpone Reason: Patient declined today) Future Scheduled 2022-07-29 BMI FOLLOW UP PLAN [facility] [place] Test 16:56:02 [code = BMI FOLLOW UP of Med icine PLAN] Future Scheduled 2022-07-29 FALL SCREEN [code = [employer] Test 16:56:02 FALL SCREEN] of Medicine Future Scheduled 2022-07-29 [facility]ANUS SHOT (ADULT) [facility]:56[facility] [code = TETANUS SHOT 1970 of Medi cine (ADULT)] (Postpone Reason: Patient declined today) Future Scheduled 2022-07-29 Screening for malignant [facility] Test 16:56:02 neoplasm of colon of Medicin e (procedure) [code = [id number]] Future Scheduled 2022-07-27 [facility]) [facility] 09:30[facility]28 [code = COVID-19 Hospital VACCINE (#1)] Future Scheduled 2022-07-27 [facility] C screening [facility] 09:30:28 (procedure) [code = Hospital [id number]] Future Scheduled 2022-07-27 [facility]COPY [facility]CREENING [facility] 09:30:28 [code = COLONOSCOPY Hospital SCREENING] Future Scheduled 2022-07-27 SHINGLES VACCINES (1 of [facility] Test 09:30:28 2) [code = SHINGLES Hospital VACCINES (1 of 2)] Future Scheduled 2022-07-27 HEPATITIS B VACCINES (1 [facility] Test 09:30:28 of 3 - Risk 3-dose Hospital series) [code = HEPATITIS B VACCINES (1 of 3 - Risk 3-dose series)] Future Scheduled 2022-07-27 65[facility] Test 09:30:28 VACCINE (1 - PCV) [code Hosp ital = 65+ PNEUMOCOCCAL VACCINE (1 - PCV)] Future Scheduled 2022-07-27 INFLUENZA VACCINE [code [facility] Test 09:30:28 = INFLUENZA VACCINE] Hospita l Future Scheduled 2022-07-12 COVID-19 VACCINE (#1) [facility] 14:00:49 [code = COVID-19 Hospital VACCINE (#1)] Future Scheduled 2022-07-12 [facility] C screening [facility] 14:00:49 (procedure) [code = Hospital [id number]] Future Scheduled 2022-07-12 [facility]COPY [facility]CREENING [facility] 14:00:49 [code = COLONOSCOPY Hospital SCREENING] Future Scheduled 2022-07-12 SHINGLES VACCINES (1 of [facility] Test 14:00:49 2) [code = SHINGLES Hospital VACCINES (1 of 2)] Future Scheduled 2022-07-12 HEPATITIS B VACCINES (1 [facility] Test 14:00:49 of 3 - Risk 3-dose Hospital series) [code = HEPATITIS B VACCINES (1 of 3 - Risk 3-dose series)] Future Scheduled 2022-07-12 65+ [facility]OCOCCAL [facility] Test 14:00:49 VACCINE (1 - PCV) [code Hosp ital = 65+ PNEUMOCOCCAL VACCINE (1 - PCV)] Future Scheduled 2022-07-12 INFLUENZA VACCINE [code [facility] Test 14:00:49 = INFLUENZA VACCINE] Hospita l Future Scheduled 2022-07-12 COVID-19 VACCINE (#1) [facility] 14:00:49 [code = COVID-19 Hospital VACCINE (#1)] Future Scheduled 2022-07-12 [facility] C screening [facility] 14:00:49 (procedure) [code = Hospital [id number]] Future Scheduled 2022-07-12 [facility]OSCOPY [facility]CREENING [facility] 14:00:49 [code = COLONOSCOPY Hospital SCREENING] Future Scheduled 2022-07-12 SHINGLES VACCINES (1 of [facility] Test 14:00:49 2) [code = SHINGLES Hospital VACCINES (1 of 2)] Future Scheduled 2022-07-12 HEPATITIS B VACCINES (1 [facility] Test 14:00:49 of 3 - Risk 3-dose Hospital series) [code = HEPATITIS B VACCINES (1 of 3 - Risk 3-dose series)] Future Scheduled 2022-07-12 65+ [facility]OCOCCAL [facility] Test 14:00:49 VACCINE (1 - PCV) [code Hosp ital = 65+ PNEUMOCOCCAL VACCINE (1 - PCV)] Future Scheduled 2022-07-12 INFLUENZA VACCINE [code [facility] Test 14:00:49 = INFLUENZA VACCINE] Hospita l [...] Ce nter VACCINE (#1)] Future Scheduled 2022-07-[address] [facility] Test 00:00:00 Counseling and Medical Cent[facility] r Screening (12+) [code = Tobacco Cessation Counseling and Screening (12+)] Future Scheduled 2022-07-07 INFLUENZA VACCINE (#1) [facility] 00:00:00 [code = INFLUENZA Medical Ce nter VACCINE (#1)] Future Scheduled 2022-07-[address] [facility] Test 00:00:00 [facility] Cent[facility] r Screening (12+) [code = Tobacco Cessation Counseling and Screening (12+)] Future Scheduled 2022-07-07 INFLUENZA VACCINE (#1) [facility] Test 00:00:00 [code = INFLUENZA Medical Ce nter VACCINE (#1)] Future Scheduled 2022-07-[address] [facility] Test 00:00:00 [facility] r Screening (12+) [code = Tobacco Cessation Counseling and Screening (12+)] Future Scheduled 2022-07-07 INFLUENZA VACCINE (#1) [facility] Test 00:00:00 [code = INFLUENZA Medical Ce nter VACCINE (#1)] Future Scheduled 2022-07-[address] [facility] Test 00:00:00 [facility] and [facility] Cent[facility] r Screening (12+) [code = Tobacco Cessation Counseling and Screening (12+)] Future Scheduled 2022-07-07 INFLUENZA VACCINE (#1) [facility] Test 00:00:00 [code = INFLUENZA Medical Ce nter VACCINE (#1)] Future Scheduled 2022-07-[address] [facility] Test 00:00:00 [facility] and Medical Cent[facility] r Screening (12+) [code = Tobacco Cessation Counseling and Screening (12+)] Future Scheduled 2022-07-07 INFLUENZA VACCINE (#1) [facility] Test 00:00:00 [code = INFLUENZA Medical Ce nter VACCINE (#1)] Future Scheduled 2022-07-[address] [facility] Test 00:00:00 [facility]ing and Medical Cent[facility] r Screening (12+) [code = Tobacco Cessation Counseling and Screening (12+)] Future Scheduled 2022-07-07 INFLUENZA VACCINE (#1) [facility] Test 00:00:00 [code = INFLUENZA Medical Ce nter VACCINE (#1)] Future Scheduled 2022-07-[address] [facility] Test 00:00:00 [facility] and Medical Cent[facility] r Screening (12+) [code = Tobacco Cessation Counseling and Screening (12+)] Future Scheduled 2022-07-07 INFLUENZA VACCINE (#1) [facility] Test 00:00:00 [code = INFLUENZA Medical Ce nter VACCINE (#1)] Future Scheduled 2022-07-[address] [facility] Test 00:00:00 Counseling and Medical Cent[facility] r Screening (12+) [code = Tobacco Cessation Counseling and Screening (12+)] Future Scheduled 2022-07-07 INFLUENZA VACCINE (#1) [facility] Test 00:00:00 [code = INFLUENZA Medical Ce nter VACCINE (#1)] Future Scheduled 2022-07-[address] [facility] Test 00:00:00 [facility]ing and Medical Cent[facility] r Screening (12+) [code = Tobacco Cessation Counseling and Screening (12+)] Future Scheduled 2022-07-07 INFLUENZA VACCINE (#1) [facility] Test 00:00:00 [code = INFLUENZA Medical Ce nter VACCINE (#1)] Future Scheduled 2022-07-[address] [facility] Test 00:00:00 Counseling and Medical Cente r Screening (12+) [code = Tobacco Cessation Counseling and Screening (12+)] Future Scheduled 2022-07-07 INFLUENZA VACCINE (#1) [facility] Test 00:00:00 [code = INFLUENZA Medical Ce nter VACCINE (#1)] Future Scheduled 2022-07-[address] [facility] Test 00:00:00 Counseling and Medical Cent[facility] r Screening (12+) [code = Tobacco Cessation Counseling and Screening (12+)] Future Scheduled 2022-07-07 INFLUENZA VACCINE (#1) [facility] Test 00:00:00 [code = INFLUENZA Medical Ce nter VACCINE (#1)] Future Scheduled 2022-07-[address] [facility] Test 00:00:00 Counseling and Medical Cente r Screening (12+) [code = Tobacco Cessation Counseling and Screening (12+)] Future Scheduled 2022-07-07 INFLUENZA VACCINE (#1) [facility] Test 00:00:00 [code = INFLUENZA Medical Ce nter VACCINE (#1)] Future Scheduled 2022-07-[address] [facility] Test 00:00:00 Counseling and Medical Cente r Screening (12+) [code = Tobacco Cessation Counseling and Screening (12+)] Future Scheduled 2022-07-07 INFLUENZA VACCINE (#1) [facility] Test 00:00:00 [code = INFLUENZA Medical Ce nter VACCINE (#1)] Future Scheduled 2022-07-[address] [facility] Test 00:00:00 Counseling and Medical Cente r Screening (12+) [code = Tobacco Cessation Counseling and Screening (12+)] Future Scheduled 2022-07-01 TETANUS SHOT (ADULT) [facility] Test 14:58:17 [code = TETANUS SHOT of Medi cine (ADULT)] Future Scheduled 2022-07-01 Diabetic foot [facility] Test 14:58:17 examination of Medicine (regime/therapy) [code = 713755211] Future Scheduled 2022-07-01 ANNUAL DIABETIC [facility] Test 14:58:17 RETINOPATHY SCREENING of Med icine [code = ANNUAL DIABETIC RETINOPATHY SCREENING] Future Scheduled 2022-07-01 Hepatitis C screening [facility] Test 14:58:17 (procedure) [code = of Medic ine 650661388] Future Scheduled 2022-07-01 ZOSTER VACCINE (1 of 2) [facility] Test 14:58:17 [code = ZOSTER VACCINE of Me dicine (1 of 2)] Future Scheduled 2022-07-01 Abdominal aortic [facility] Test 14:58:17 aneurysm screening of Medici ne (procedure) [code = 308176108] Future Scheduled 2022-07-01 Hemoglobin A1c [facility] Test 14:58:17 measurement (procedure) of M edicine [code = 37190540] Future Scheduled 2022-07-01 [facility] 14:58:17 [code = FLU VACCINE > 6 of M edicine MONTHS] Future Scheduled 2022-07-01 COVID-19 Vaccine (#1) Postponed from [facility] Test 14:58:17 [code = COVID-19 02/25/1956 of Medicine Vaccine (#1)] (Postpone Reason: Patient declined today) Future Scheduled 2022-07-01 BMI FOLLOW UP PLAN [facility] Test 14:58:17 [code = BMI FOLLOW UP of Med icine PLAN] Future Scheduled 2022-07-01 FALL SCREEN [code = [facility] [place] Test 14:58:17 FALL SCREEN] of Medicine Future Scheduled 2022-07-01 Screening for malignant [facility] Test 14:58:17 neoplasm of colon of Medicin e (procedure) [code = 713712852] Future Scheduled 2022-06-10 COVID-19 Vaccine (#1) [facility] Test 09:51:23 [code = COVID-19 of Medicine Vaccine (#1)] Future Scheduled 2022-06-10 Pneumococcal 65+ (1 - [facility] Test 09:51:23 PCV) [code = of Medicine Pneumococcal 65+ (1 - PCV)] Future Scheduled 2022-06-10 TETANUS SHOT (ADULT) [facility] Test 09:51:23 [code = TETANUS SHOT of Medi cine (ADULT)] Future Scheduled 2022-06-10 Diabetic foot [facility] Test 09:51:23 examination of Medicine (regime/therapy) [code = 669111904] Future Scheduled 2022-06-10 ANNUAL DIABETIC [facility] Test 09:51:23 RETINOPATHY SCREENING of Med icine [code = ANNUAL DIABETIC RETINOPATHY SCREENING] Future Scheduled 2022-06-10 Hepatitis C screening [facility] Test 09:51:23 (procedure) [code = of Medic ine 231058856] Future Scheduled 2022-06-10 ZOSTER VACCINE (1 of 2) [facility] Test 09:51:23 [code = ZOSTER VACCINE of In dicine (1 of 2)] Future Scheduled 2022-06-10 Abdominal aortic [facility] Test 09:51:23 aneurysm screening of Medici ne (procedure) [code = 544598256] Future Scheduled 2022-06-10 Hemoglobin A1c [facility] Test 09:51:23 measurement (procedure) of M edicine [code = 16788003] Future Scheduled 2022-06-10 [facility] 09:51:23 [code = FLU VACCINE > 6 of M edicine MONTHS] Future Scheduled 2022-06-10 BMI FOLLOW UP PLAN [facility] Test 09:51:23 [code = BMI FOLLOW UP of Med icine PLAN] Future Scheduled 2022-06-10 FALL SCREEN [code = [employer] Test 09:51:23 FALL SCREEN] of Medicine Future Scheduled 2022-06-10 Screening for malignant [facility] Test 09:51:23 neoplasm of colon of Medicin e (procedure) [code = 168685355] Future Scheduled 2022-06-10 US 1 Occurrences [facility] Test 09:43:01 AORTA,IVC,ILIACS,GRAFT starting of Me salgado COMPLETE DUPLEX [code = 06/10/2022 until 70902-7] 06/10/2023 Future Scheduled 2022-05-17 COVID-19 Vaccine (#1) [facility] Test 10:26:54 [code = COVID-19 of Medicine Vaccine (#1)] Future Scheduled 2022-05-17 Pneumococcal 65+ (1 - [facility] [employer] Test 10:26:54 PCV) [code = of Medicine Pneumococcal 65+ (1 - PCV)] Future Scheduled 2022-05-17 TETANUS SHOT (ADULT) [facility] Test 10:26:54 [code = TETANUS SHOT of Medi cine (ADULT)] Future Scheduled 2022-05-17 Diabetic foot [facility] Test 10:26:54 examination of Medicine (regime/therapy) [code = 004187703] Future Scheduled 2022-05-17 ANNUAL DIABETIC [facility] Test 10:26:54 RETINOPATHY SCREENING of Med icine [code = ANNUAL DIABETIC RETINOPATHY SCREENING] Future Scheduled 2022-05-17 Hepatitis C screening [facility] Test 10:26:54 (procedure) [code = of Medic ine 608170842] Future Scheduled 2022-05-17 ZOSTER VACCINE (1 of 2) [facility] Test 10:26:54 [code = ZOSTER VACCINE of Me heatonine (1 of 2)] Future Scheduled 2022-05-17 MEDICARE IPPE (WELCOME B [facility] Test 10:26:54 TO MEDICARE) [code = of Medi cine MEDICARE IPPE (WELCOME TO MEDICARE)] Future Scheduled 2022-05-17 Abdominal aortic [facility] Test 10:26:54 aneurysm screening of Medici ne (procedure) [code = 574332237] Future Scheduled 2022-05-17 [facility] 10[facility]26:54 measurement (procedure) of M edicine [code = 59560268] Future Scheduled 2022-05-17 FLU VACCINE > 6 MONTHS [facility] Test 10:26:54 [code = FLU VACCINE > 6 of M edicine MONTHS] Future Scheduled 2022-05-17 BMI FOLLOW UP PLAN [employer] Test 10:26:54 [code = BMI FOLLOW UP of Jasvir frey PLAN] Future Scheduled 2022-05-17 FALL SCREEN [code = [employer] Test 10:26:54 FALL SCREEN] of Medicine Future Scheduled 2022-05-17 Screening for malignant [facility] Test 10:26:54 neoplasm of colon of Medicin e (procedure) [code = 530461088] Future Scheduled 2022-05-17 COVID-19 Vaccine (#1) [facility] Test 10:05:13 [code = COVID-19 of Medicine Vaccine (#1)] Future Scheduled 2022-05-17 Pneumococcal 65+ (1 - [facility] Test 10:05:13 PCV) [code = of Medicine Pneumococcal 65+ (1 - PCV)] Future Scheduled 2022-05-17 TETANUS SHOT (ADULT) [facility] Test 10:05:13 [code = TETANUS SHOT of Medi cine (ADULT)] Future Scheduled 2022-05-17 Diabetic foot [facility] Test 10:05:13 examination of Medicine (regime/therapy) [code = 467561264] Future Scheduled 2022-05-17 ANNUAL DIABETIC [facility] Test 10:05:13 RETINOPATHY SCREENING of Jasvir frey [code = ANNUAL DIABETIC RETINOPATHY SCREENING] Future Scheduled 2022-05-17 Hepatitis C screening [facility] Test 10:05:13 (procedure) [code = of Medic ine 207202936] Future Scheduled 2022-05-17 ZOSTER VACCINE (1 of 2) [facility] Test 10:05:13 [code = ZOSTER VACCINE of Me dicine (1 of 2)] Future Scheduled 2022-05-17 MEDICARE IPPE (WELCOME B [facility] Test 10:05:13 TO MEDICARE) [code = of Medi cine MEDICARE IPPE (WELCOME TO MEDICARE)] Future Scheduled 2022-05-17 Abdominal aortic [facility] Test 10:05:13 aneurysm screening of Medici ne (procedure) [code = 085441771] Future Scheduled 2022-05-17 Hemoglobin A1c [facility] Test 10:05:13 measurement (procedure) of M edicine [code = 73997361] Future Scheduled 2022-05-17 FLU VACCINE > 6 MONTHS [facility] Test 10:05:13 [code = FLU VACCINE > 6 of M edicine MONTHS] Future Scheduled 2022-05-17 BMI FOLLOW UP PLAN [facility] Test 10:05:13 [code = BMI FOLLOW UP of Med icine PLAN] Future Scheduled 2022-05-17 FALL SCREEN [code = [facility] or [facility] Test 10:05:13 FALL SCREEN] of Medicine Future Scheduled 2022-05-17 Screening for malignant [facility] Test 10:05:13 neoplasm of colon of Medicin e (procedure) [code = 520574974] Future Scheduled 2022-05-06 COVID-19 Vaccine (#1) [facility] Test 10:03:26 [code = COVID-19 of Medicine Vaccine (#1)] Future Scheduled 2022-05-06 Pneumococcal 65+ (1 - [facility] Test 10:03:26 PCV) [code = of Medicine Pneumococcal 65+ (1 - PCV)] Future Scheduled 2022-05-06 TETANUS SHOT (ADULT) [facility] Test 10:03:26 [code = TETANUS SHOT of Medi cine (ADULT)] Future Scheduled 2022-05-06 Diabetic foot [facility] Test 10:03:26 examination of Medicine (regime/therapy) [code = 992724232] Future Scheduled 2022-05-06 ANNUAL DIABETIC [facility] Test 10:03:26 RETINOPATHY SCREENING of Med rahulne [code = ANNUAL DIABETIC RETINOPATHY SCREENING] Future Scheduled 2022-05-06 Hepatitis C screening [facility] Test 10:03:26 (procedure) [code = of Medic ine 894162087] Future Scheduled 2022-05-06 ZOSTER VACCINE (1 of 2) [facility] Test 10:03:26 [code = ZOSTER VACCINE of In dicine (1 of 2)] Future Scheduled 2022-05-06 MEDICARE IPPE (WELCOME B [facility] Test 10:03:26 TO MEDICARE) [code = of Medi cine MEDICARE IPPE (WELCOME TO MEDICARE)] Future Scheduled 2022-05-06 Abdominal aortic [facility] Test 10:03:26 aneurysm screening of Medici ne (procedure) [code = 081301431] Future Scheduled 2022-05-06 Hemoglobin A1c [facility] Test 10:03:26 measurement (procedure) of M edicine [code = 54291328] Future Scheduled 2022-05-06 FLU VACCINE > 6 MONTHS [facility] Test 10:03:26 [code = FLU VACCINE > 6 of M edicine MONTHS] Future Scheduled 2022-05-06 FALL SCREEN [code = [employer] Test 10:03:26 FALL SCREEN] of Medicine Future Scheduled 2022-05-06 BMI FOLLOW UP PLAN [facility] Test 10:03:26 [code = BMI FOLLOW UP of Med icine PLAN] Future Scheduled 2022-05-06 Screening for malignant [facility] Test 10:03:26 neoplasm of colon of Medicin e (procedure) [code = 274122664] Future Scheduled 2022-05-04 COVID-19 Vaccine (#1) [facility] Test 15:29:04 [code = COVID-19 of Medicine Vaccine (#1)] Future Scheduled 2022-05-04 Pneumococcal 65+ (1 - [facility] Test 15:29:04 PCV) [code = of Medicine Pneumococcal 65+ (1 - PCV)] Future Scheduled 2022-05-04 TETANUS SHOT (ADULT) [facility] Test 15:29:04 [code = TETANUS SHOT of Medi cine (ADULT)] Future Scheduled 2022-05-04 Diabetic foot [facility] Test 15:29:04 examination of Medicine (regime/therapy) [code = 522644715] Future Scheduled 2022-05-04 ANNUAL DIABETIC [facility] Test 15:29:04 RETINOPATHY SCREENING of Med icine [code = ANNUAL DIABETIC RETINOPATHY SCREENING] Future Scheduled 2022-05-04 Hepatitis C screening [facility] Test 15:29:04 (procedure) [code = of Medic ine 017249678] Future Scheduled 2022-05-04 ZOSTER VACCINE (1 of 2) [facility] Test 15:29:04 [code = ZOSTER VACCINE of In dicine (1 of 2)] Future Scheduled 2022-05-04 Abdominal aortic [facility] Test 15:29:04 aneurysm screening of Medici ne (procedure) [code = 586956814] Future Scheduled 2022-05-04 Hemoglobin A1c [facility] Test 15:29:04 measurement (procedure) of M edicine [code = 29848112] Future Scheduled 2022-05-04 FLU VACCINE > 6 MONTHS [facility] Test 15:29:04 [code = FLU VACCINE > 6 of M edicine MONTHS] Future Scheduled 2022-05-04 FALL SCREEN [code = [employer] Test 15:29:04 FALL SCREEN] of Medicine Future Scheduled 2022-05-04 BMI FOLLOW UP PLAN [facility] [place] Test 15:29:04 [code = BMI FOLLOW UP of Med icine PLAN] Future Scheduled 2022-05-04 Screening for malignant [facility] Test 15:29:04 neoplasm of colon of Medicin e (procedure) [code = 474181607] Future Scheduled 2022-04-12 Screening for malignant [facility] Test 14:55:00 neoplasm of colon of Medicin e (procedure) [code = 233596659] Future Scheduled 2022-04-12 COVID-19 Vaccine (#1) [facility] Test 14:55:00 [code = COVID-19 of Medicine Vaccine (#1)] Future Scheduled 2022-04-12 Pneumococcal 65+ (1 - [facility] Test 14:55:00 PCV) [code = of Medicine Pneumococcal 65+ (1 - PCV)] Future Scheduled 2022-04-12 TETANUS SHOT (ADULT) [facility] Test 14:55:00 [code = TETANUS SHOT of Medi cine (ADULT)] Future Scheduled 2022-04-12 Diabetic foot [facility] Test 14:55:00 examination of Medicine (regime/therapy) [code = 838328267] Future Scheduled 2022-04-12 ANNUAL DIABETIC [facility] [employer] Test 14:55:00 RETINOPATHY SCREENING of Med icine [code = ANNUAL DIABETIC RETINOPATHY SCREENING] Future Scheduled 2022-04-12 Hepatitis C screening [facility] Test 14:55:00 (procedure) [code = of Medic ine 724434031] Future Scheduled 2022-04-12 ZOSTER VACCINE (1 of 2) [facility] Test 14:55:00 [code = ZOSTER VACCINE of Me dicine (1 of 2)] Future Scheduled 2022-04-12 Abdominal aortic [facility] Test 14:55:00 aneurysm screening of Medici ne (procedure) [code = 446786465] Future Scheduled 2022-04-12 BMI FOLLOW UP PLAN [facility] Test 14:55:00 [code = BMI FOLLOW UP of Med icine PLAN] Future Scheduled 2022-04-12 Hemoglobin A1c [facility] [employer] Test 14:55:00 measurement (procedure) of M edicine [code = 24270631] Future Scheduled 2022-04-12 FLU VACCINE > 6 MONTHS [employer] Test 14:55:00 [code = FLU VACCINE > 6 of M edicine MONTHS] Future Scheduled 2022-04-12 FALL SCREEN [code = [employer] Test 14:55:00 FALL SCREEN] of Medicine Future Scheduled 2022-03-30 PHI PANEL (URO DEPT) Expected: [facility] Test 00:00:00 [code = 83573] 03/30/2022 of Medicine (Approximate), Expires: 04/15/2022 Future Scheduled 2022-03-29 Screening for malignant [facility] Test 16:47:24 neoplasm of colon of Medicin e (procedure) [code = 317046202] Future Scheduled 2022-03-29 COVID-19 Vaccine (#1) [facility] Test 16:47:24 [code = COVID-19 of Medicine Vaccine (#1)] Future Scheduled 2022-03-29 Pneumococcal 65+ (1 - [facility] Test 16:47:24 PCV) [code = of Medicine Pneumococcal 65+ (1 - PCV)] Future Scheduled 2022-03-29 TETANUS SHOT (ADULT) [facility] Test 16:47:24 [code = TETANUS SHOT of Medi cine (ADULT)] Future Scheduled 2022-03-29 Diabetic foot [facility] [employer] Test 16:47:24 examination of Medicine (regime/therapy) [code = 387487031] Future Scheduled 2022-03-29 ANNUAL DIABETIC [facility] [employer] Test 16:47:24 RETINOPATHY SCREENING of Med icine [code = ANNUAL DIABETIC RETINOPATHY SCREENING] Future Scheduled 2022-03-29 Hepatitis C screening [facility] Test 16:47:24 (procedure) [code = of Medic ine 993630322] Future Scheduled 2022-03-29 ZOSTER VACCINE (1 of 2) [facility] Test 16:47:24 [code = ZOSTER VACCINE of Me dicine (1 of 2)] Future Scheduled 2022-03-29 Abdominal aortic [facility] Test 16:47:24 aneurysm screening of Medici ne (procedure) [code = 991887158] Future Scheduled 2022-03-29 BMI FOLLOW UP PLAN [facility] Test 16:47:24 [code = BMI FOLLOW UP of Med icine PLAN] Future Scheduled 2022-03-29 Hemoglobin A1c [facility] [employer] Test 16:47:24 measurement (procedure) of M edicine [code = 55517785] Future Scheduled 2022-03-29 [facility]:47[facility]24 [code = FLU VACCINE > 6 of M edicine MONTHS] Future Scheduled 2022-03-29 FALL SCREEN [code = [facility] Test 16:47:24 FALL SCREEN] of Medicine Future Scheduled 2022-03-29 MRI LUMBAR SPINE WO 1 Occurrences [facility] Test 15:51:19 CONTRAST [code = starting of Medicine 31369-1] 03/29/2022 until 03/29/2023 Future Scheduled 2022-03-29 MRI HIP LEFT WO 1 Occurrences [facility] Test 15:51:19 CONTRAST [code = 88666] starting of M edicine 03/29/2022 until 03/29/2023 Future Scheduled 2022-03-22 Screening for malignant [facility] Test 09:09:58 neoplasm of colon of Medicin e (procedure) [code = 517494291] Future Scheduled 2022-03-22 COVID-19 Vaccine (1) [facility] Test 09:09:58 [code = COVID-19 of Medicine Vaccine (1)] Future Scheduled 2022-03-22 TETANUS SHOT (ADULT) [facility] Test 09:09:58 [code = TETANUS SHOT of Medi cine (ADULT)] Future Scheduled 2022-03-22 Diabetic foot [facility] [employer] Test 09:09:58 examination of Medicine (regime/therapy) [code = 018147436] Future Scheduled 2022-03-22 ANNUAL DIABETIC [facility] [employer] Test 09:09:58 RETINOPATHY SCREENING of Med icine [code = ANNUAL DIABETIC RETINOPATHY SCREENING] Future Scheduled 2022-03-22 Hepatitis C screening [facility] Test 09:09:58 (procedure) [code = of Medic ine 639003742] Future Scheduled 2022-03-22 ZOSTER VACCINE (1 of 2) [facility] Test 09:09:58 [code = ZOSTER VACCINE of Me dicine (1 of 2)] Future Scheduled 2022-03-22 Abdominal aortic [facility] Test 09:09:58 aneurysm screening of Medici ne (procedure) [code = 772858532] Future Scheduled 2022-03-22 Pneumococcal 65+ (1 of [facility] [employer] Test 09:09:58 1 - PPSV23) [code = of Medic ine Pneumococcal 65+ (1 of 1 - PPSV23)] Future Scheduled 2022-03-22 BMI FOLLOW UP PLAN [facility] Test 09:09:58 [code = BMI FOLLOW UP of Med icine PLAN] Future Scheduled 2022-03-22 Hemoglobin A1c [facility] Test 09:09:58 measurement (procedure) of M edicine [code = 83991663] Future Scheduled 2022-03-22 FLU VACCINE > 6 MONTHS [employer] Test 09:09:58 [code = FLU VACCINE > 6 of M edicine MONTHS] Future Scheduled 2022-03-22 FALL SCREEN [code = [employer] Test 09:09:58 FALL SCREEN] of Medicine Future Scheduled 2022-03-18 US ARTERIAL LEG RIGHT 1 [facility]rences [facility] Test 11:47:53 [code = 96727] starting of Medicine 03/18/2022 until 03/18/2023 Future Scheduled 2022-03-18 US ANK/BRAC INDICES, 1 Occurrences [facility] Test 11:40:17 SINGLE BILAT [code = starting of Medi cine 94821] 03/18/2022 until 03/18/2023 Future Scheduled 2022-03-16 Screening for malignant [facility] Test 15:15:08 neoplasm of colon of Medicin e (procedure) [code = 789747101] Future Scheduled 2022-03-16 COVID-19 Vaccine (1) [facility] Test 15:15:08 [code = COVID-19 of Medicine Vaccine (1)] Future Scheduled 2022-03-16 TETANUS SHOT (ADULT) [facility] Test 15:15:08 [code = TETANUS SHOT of Medi cine (ADULT)] Future Scheduled 2022-03-16 Diabetic foot [facility] [employer] Test 15:15:08 examination of Medicine (regime/therapy) [code = 289588723] Future Scheduled 2022-03-16 ANNUAL DIABETIC [facility] [employer] Test 15:15:08 RETINOPATHY SCREENING of Med icine [code = ANNUAL DIABETIC RETINOPATHY SCREENING] Future Scheduled 2022-03-16 Hepatitis C screening [employer] Test 15:15:08 (procedure) [code = of Medic ine 738350774] Future Scheduled 2022-03-16 ZOSTER VACCINE (1 of 2) [facility] Test 15:15:08 [code = ZOSTER VACCINE of Me dicine (1 of 2)] Future Scheduled 2022-03-16 Abdominal aortic [facility] Test 15:15:08 aneurysm screening of Luisi ne (procedure) [code = 495129766] Future Scheduled 2022-03-16 Pneumococcal 65+ (1 of [facility] [employer] Test 15:15:08 1 - PPSV23) [code = of Medic ine Pneumococcal 65+ (1 of 1 - PPSV23)] Future Scheduled 2022-03-16 BMI FOLLOW UP PLAN [facility] [employer] Test 15:15:08 [code = BMI FOLLOW UP of Med icine PLAN] Future Scheduled 2022-03-16 Hemoglobin A1c [facility] measurement (procedure) of M edicine [code = 88154423] Future Scheduled 2022-03-16 FLU VACCINE > 6 MONTHS B [facility] Test 15:15:08 [code = FLU VACCINE > 6 of M edicine MONTHS] Future Scheduled 2022-03-16 FALL SCREEN [code = [facility] Test 15:15:08 FALL SCREEN] of Medicine Future Scheduled 2022-02-21 Screening for malignant [facility] Test 00:15:07 neoplasm of colon of Medicin e (procedure) [code = 206006724] Future Scheduled 2022-02-21 COVID-19 Vaccine (1) [facility] Test 00:15:07 [code = COVID-19 of Medicine Vaccine (1)] Future Scheduled 2022-02-21 TETANUS SHOT (ADULT) [facility] Test 00:15:07 [code = TETANUS SHOT of Medi cine (ADULT)] Future Scheduled 2022-02-21 Diabetic foot [facility] [employer] Test 00:15:07 examination of Medicine (regime/therapy) [code = 776933505] Future Scheduled 2022-02-21 ANNUAL DIABETIC [facility] [employer] Test 00:15:07 RETINOPATHY SCREENING of Med icine [code = ANNUAL DIABETIC RETINOPATHY SCREENING] Future Scheduled 2022-02-21 Hepatitis C screening [facility] Test 00:15:07 (procedure) [code = of Medic ine 155319829] Future Scheduled 2022-02-21 ZOSTER VACCINE (1 of 2) [facility] Test 00:15:07 [code = ZOSTER VACCINE of Me dicine (1 of 2)] Future Scheduled 2022-02-21 Abdominal aortic [facility] Test 00:15:07 aneurysm screening of Medici ne (procedure) [code = 168742029] Future Scheduled 2022-02-21 Pneumococcal 65+ (1 of [facility] Test 00:15:07 1 - PPSV23) [code = of Medic ine Pneumococcal 65+ (1 of 1 - PPSV23)] Future Scheduled 2022-02-21 BMI FOLLOW UP PLAN [facility] Test 00:15:07 [code = BMI FOLLOW UP of Med rahulne PLAN] Future Scheduled 2022-02-21 Hemoglobin A1c [facility] [employer] Test 00:15:07 measurement (procedure) of M edicine [code = 77077935] Future Scheduled 2022-02-21 FLU VACCINE > 6 MONTHS [facility] Test 00:15:07 [code = FLU VACCINE > 6 of M edicine MONTHS] Future Scheduled 2022-02-21 FALL SCREEN [code = [facility] Test 00:15:07 FALL SCREEN] of Medicine Future Scheduled 2022-02-10 Screening for malignant [facility] Test 16:13:11 neoplasm of colon of Luisin e (procedure) [code = 540799209] Future Scheduled 2022-02-10 COVID-19 Vaccine (1) [facility] Test 16:13:11 [code = COVID-19 of Medicine Vaccine (1)] Future Scheduled 2022-02-10 TETANUS SHOT (ADULT) [facility] Test 16:13:11 [code = TETANUS SHOT of Medi cine (ADULT)] Future Scheduled 2022-02-10 Diabetic foot [facility] [employer] Test 16:13:11 examination of Medicine (regime/therapy) [code = 895796042] Future Scheduled 2022-02-10 ANNUAL DIABETIC [facility] [employer] Test 16:13:11 RETINOPATHY SCREENING of Jasvir frey [code = ANNUAL DIABETIC RETINOPATHY SCREENING] Future Scheduled 2022-02-10 Hepatitis C screening [facility] Test 16:13:11 (procedure) [code = of Medic ine 696453119] Future Scheduled 2022-02-10 ZOSTER VACCINE (1 of 2) [facility] Test 16:13:11 [code = ZOSTER VACCINE of Me dicine (1 of 2)] Future Scheduled 2022-02-10 Abdominal aortic [facility] Test 16:13:11 aneurysm screening of Medici ne (procedure) [code = 983604448] Future Scheduled 2022-02-10 Pneumococcal 65+ (1 of [employer] Test 16:13:11 1 - PPSV23) [code = of Medic ine Pneumococcal 65+ (1 of 1 - PPSV23)] Future Scheduled 2022-02-10 BMI FOLLOW UP PLAN [facility] [employer] Test 16:13:11 [code = BMI FOLLOW UP of Med icine PLAN] Future Scheduled 2022-02-10 Hemoglobin A1c [facility] Test 16:13:11 measurement (procedure) of M edicine [code = 04662068] Future Scheduled 2022-02-10 FLU VACCINE > 6 MONTHS [facility] Test 16:13:11 [code = FLU VACCINE > 6 of M edicine MONTHS] Future Scheduled 2022-02-10 FALL SCREEN [code = [facility] Test 16:13:11 FALL SCREEN] of Medicine Future Scheduled 2022-02-10 ELECTROCARDIOGRAM [facility] Test 15:50:28 COMPLETE [code = 49317] of M edicine Future Scheduled 2022-01-17 US CAROTID [code = Expected: [facility] [employer] Test 00:00:00 74563] 01/17/2022, of Medicine Expires: 12/20/2022 Future Scheduled 2021-12-20 Screening for malignant [facility] Test 12:58:23 neoplasm of colon of Medicin e (procedure) [code = 216868599] Future Scheduled 2021-12-20 COVID-19 Vaccine (1) [facility] Test 12:58:23 [code = COVID-19 of Medicine Vaccine (1)] Future Scheduled 2021-12-20 TETANUS SHOT (ADULT) [facility] Test 12:58:23 [code = TETANUS SHOT of Medi cine (ADULT)] Future Scheduled 2021-12-20 Diabetic foot [facility] [employer] Test 12:58:23 examination of Medicine (regime/therapy) [code = 323635606] Future Scheduled 2021-12-20 ANNUAL DIABETIC [facility] [employer] Test 12:58:23 RETINOPATHY SCREENING of Med icine [code = ANNUAL DIABETIC RETINOPATHY SCREENING] Future Scheduled 2021-12-20 Hepatitis C screening [facility] Test 12:58:23 (procedure) [code = of Medic ine 886800219] Future Scheduled 2021-12-20 ZOSTER VACCINE (1 of 2) [facility] Test 12:58:23 [code = ZOSTER VACCINE of Me dicine (1 of 2)] Future Scheduled 2021-12-20 Abdominal aortic [facility] Test 12:58:23 aneurysm screening of Medici ne (procedure) [code = 391824464] Future Scheduled 2021-12-20 Pneumococcal 65+ (1 of B [facility] Test 12:58:23 1 - PPSV23) [code = of Medic ine Pneumococcal 65+ (1 of 1 - PPSV23)] Future Scheduled 2021-12-20 BMI FOLLOW UP PLAN [facility] [employer] Test 12:58:23 [code = BMI FOLLOW UP of Med icine PLAN] Future Scheduled 2021-12-20 Hemoglobin A1c [facility] Test 12:58:23 measurement (procedure) of M edicine [code = 38058791] Future Scheduled 2021-12-20 FALL SCREEN [code = [facility] Test 12:58:23 FALL SCREEN] of Medicine Future Scheduled 2021-12-10 Screening for malignant [facility] Test 10:45:05 neoplasm of colon of Medicin e (procedure) [code = 194648505] Future Scheduled 2021-12-10 COVID-19 Vaccine (1) [facility] Test 10:45:05 [code = COVID-19 of Medicine Vaccine (1)] Future Scheduled 2021-12-10 TETANUS SHOT (ADULT) [facility] Test 10:45:05 [code = TETANUS SHOT of Medi cine (ADULT)] Future Scheduled 2021-12-10 Diabetic foot [facility] [employer] Test 10:45:05 examination of Medicine (regime/therapy) [code = 560450411] Future Scheduled 2021-12-10 ANNUAL DIABETIC [facility] [employer] Test 10:45:05 RETINOPATHY SCREENING of Med icine [code = ANNUAL DIABETIC RETINOPATHY SCREENING] Future Scheduled 2021-12-10 Hepatitis C screening [facility] Test 10:45:05 (procedure) [code = of Medic ine 069606682] Future Scheduled 2021-12-10 ZOSTER VACCINE (1 of 2) [facility] Test 10:45:05 [code = ZOSTER VACCINE of Me dicine (1 of 2)] Future Scheduled 2021-12-10 Abdominal aortic [facility] Test 10:45:05 aneurysm screening of Medici ne (procedure) [code = 123999780] Future Scheduled 2021-12-10 Pneumococcal 65+ (1 of [employer] Test 10:45:05 1 - PPSV23) [code = of Medic ine Pneumococcal 65+ (1 of 1 - PPSV23)] Future Scheduled 2021-12-10 BMI FOLLOW UP PLAN [employer] Test 10:45:05 [code = BMI FOLLOW UP of Med icine PLAN] Future Scheduled 2021-12-10 Hemoglobin A1c [facility] Test 10:45:05 measurement (procedure) of M edicine [code = 20713987] Future Scheduled 2021-12-10 FALL SCREEN [code = [employer] Test 10:45:05 FALL SCREEN] of Medicine Future Scheduled 2021-12-10 US 1 Occurrences [facility] Test 09:52:35 AORTA,IVC,ILIACS,GRAFT starting of Me dicine COMPLETE DUPLEX [code = 12/10/2021 until 61857-3] 12/10/2022 Future Scheduled 2021-11-17 Screening for malignant [facility] Test 14:44:57 neoplasm of colon of Medicin e (procedure) [code = 112961617] Future Scheduled 2021-11-17 Pneumococcal 65+ (1 of [facility] Test 14:44:57 2 - PPSV23) [code = of Medic ine Pneumococcal 65+ (1 of 2 - PPSV23)] Future Scheduled 2021-11-17 COVID-19 Vaccine (1) [facility] Test 14:44:57 [code = COVID-19 of Medicine Vaccine (1)] Future Scheduled 2021-11-17 TETANUS SHOT (ADULT) [facility] Test 14:44:57 [code = TETANUS SHOT of Medi cine (ADULT)] Future Scheduled 2021-11-17 Hepatitis C screening [facility] [employer] Test 14:44:57 (procedure) [code = of Medic ine 896491629] Future Scheduled 2021-11-17 ZOSTER VACCINE (1 of 2) [facility] Test 14:44:57 [code = ZOSTER VACCINE of Me dicine (1 of 2)] Future Scheduled 2021-11-17 MEDICARE IPPE (WELCOME B [facility] Test 14:44:57 TO MEDICARE) [code = of Medi cine MEDICARE IPPE (WELCOME TO MEDICARE)] Future Scheduled 2021-11-17 Abdominal aortic [facility] Test 14:44:57 aneurysm screening of Medici ne (procedure) [code = 122673416] Future Scheduled 2021-11-17 BMI FOLLOW UP PLAN [employer] Test 14:44:57 [code = BMI FOLLOW UP of Med icine PLAN] Future Scheduled 2021-11-17 FALL SCREEN [code = [employer] Test 14:44:57 FALL SCREEN] of Medicine Future Scheduled 2021-11-12 CBC W/AUTO DIFF WITH Ordered: [employer] Test 17:03:41 PLATELETS [code = 11/12/2021 of Medicin e 99358-8] Future Scheduled 2021-11-12 COMPREHENSIVE METABOLIC Ordered: [facility] [employer] Test 17:03:41 PANEL [code = 86698-6] 11/12/2021 of Me dicine Future Scheduled 2021-11-12 HEMOGLOBIN A1C [code = Ordered: [facility] [employer] Test 17:03:41 4548-4] 11/12/2021 of Medicine Future Scheduled 2021-11-12 LIPID PANEL [code = Ordered: [employer] Test 17:03:41 40964-3] 11/12/2021 of Medicine Future Scheduled 2021-11-12 TSH + FREE T4 PROFILE Ordered: [employer] Test 17:03:41 [code = NOCPT] 11/12/2021 of Medicine Future Scheduled 2021-11-12 PSA [code = 2857-1] Ordered: [employer] Test 17:03:41 11/12/2021 of Medicine Future Scheduled 2021-11-12 Screening for malignant [facility] [employer] Test 16:55:06 neoplasm of colon of Medicin e (procedure) [code = 197014124] Future Scheduled 2021-11-12 Pneumococcal 65+ (1 of [facility] Test 16:55:06 2 - PPSV23) [code = of Medic ine Pneumococcal 65+ (1 of 2 - PPSV23)] Future Scheduled 2021-11-12 COVID-19 Vaccine (1) [employer] Test 16:55:06 [code = COVID-19 of Medicine Vaccine (1)] Future Scheduled 2021-11-12 TETANUS SHOT (ADULT) [employer] Test 16:55:06 [code = TETANUS SHOT of Medi cine (ADULT)] Future Scheduled 2021-11-12 Hepatitis C screening [facility] [employer] Test 16:55:06 (procedure) [code = of Medic ine 933208618] Future Scheduled 2021-11-12 ZOSTER VACCINE (1 of 2) [facility] Test 16:55:06 [code = ZOSTER VACCINE of Me salgado (1 of 2)] Future Scheduled 2021-11-12 MEDICARE IPPE (WELCOME B [facility] Test 16:55:06 TO MEDICARE) [code = of Medi cine MEDICARE IPPE (WELCOME TO MEDICARE)] Future Scheduled 2021-11-12 Abdominal aortic [facility] Test 16:55:06 aneurysm screening of Medici ne (procedure) [code = 357617592] Future Scheduled 2021-11-12 BMI FOLLOW UP PLAN [facility] [employer] Test 16:55:06 [code = BMI FOLLOW UP of Med icine PLAN] Future Scheduled 2021-11-12 FALL SCREEN [code = [facility] Test 16:55:06 FALL SCREEN] of Medicine Diagnostic Test 2021-11-12 MAMMO DIAGNOSTIC BILAT Expected: [facility] Pending 00:00:00 (US/BIOP IF NEEDED) 11/12/2021, of Medic ine [code = 27428-7] Expires: 05/12/2023 Future Scheduled 2021-11-06 DEPRESSION SCREENING [...] SCREENING] Future Scheduled 2021-10-04 Screening for malignant [facility] Test 14:20:03 neoplasm of colon of Medicin e (procedure) [code = 596825180] Future Scheduled 2021-10-04 Pneumococcal 65+ (1 of B [facility] Test 14:20:03 2 - PPSV23) [code = of Medic ine Pneumococcal 65+ (1 of 2 - PPSV23)] Future Scheduled 2021-10-04 COVID-19 Vaccine (1) [facility] Test 14:20:03 [code = COVID-19 of Medicine Vaccine (1)] Future Scheduled 2021-10-04 TETANUS SHOT (ADULT) [facility] Test 14:20:03 [code = TETANUS SHOT of Medi cine (ADULT)] Future Scheduled 2021-10-04 Hepatitis C screening [employer] Test 14:20:03 (procedure) [code = of Medic ine 309685682] Future Scheduled 2021-10-04 ZOSTER VACCINE (1 of 2) [facility] [employer] Test 14:20:03 [code = ZOSTER VACCINE of Me dicine (1 of 2)] Future Scheduled 2021-10-04 MEDICARE IPPE (WELCOME [facility] [employer] Test 14:20:03 TO MEDICARE) [code = of [employer] MEDICARE IPPE (WELCOME TO MEDICARE)] Future Scheduled 2021-10-04 Abdominal aortic [facility] [employer] Test 14:20:03 aneurysm screening of Medici ne (procedure) [code = 271470457] Future Scheduled 2021-10-04 BMI FOLLOW UP PLAN [facility] [employer] Test 14:20:03 [code = BMI FOLLOW UP of Med icine PLAN] Future Scheduled 2021-10-04 FALL SCREEN [code = [employer] Test 14:20:03 FALL SCREEN] of Medicine Future Scheduled 2021-09-22 Screening for malignant [facility] [employer] Test 16:06:05 neoplasm of colon of Medicin e (procedure) [code = 482004828] Future Scheduled 2021-09-22 Pneumococcal 65+ (1 of B [facility] [employer] Test 16:06:05 2 - PPSV23) [code = of Medic ine Pneumococcal 65+ (1 of 2 - PPSV23)] Future Scheduled 2021-09-22 COVID-19 Vaccine (1) [facility] [employer] Test 16:06:05 [code = COVID-19 of Medicine Vaccine (1)] Future Scheduled 2021-09-22 TETANUS SHOT (ADULT) [employer] Test 16:06:05 [code = TETANUS SHOT of Medi Auth0 (ADULT)] Future Scheduled 2021-09-22 Hepatitis C screening [facility] [employer] Test 16:06:05 (procedure) [code = of Medic ine 080863722] Future Scheduled 2021-09-22 ZOSTER VACCINE (1 of 2) [facility] [employer] Test 16:06:05 [code = ZOSTER VACCINE of Me dicine (1 of 2)] Future Scheduled 2021-09-22 MEDICARE IPPE (WELCOME [facility] Test 16:06:05 TO MEDICARE) [code = of [employer] MEDICARE IPPE (WELCOME TO MEDICARE)] Future Scheduled 2021-09-22 Abdominal aortic [facility] [employer] Test 16:06:05 aneurysm screening of Medici ne (procedure) [code = 236528774] Future Scheduled 2021-09-22 FALL SCREEN [code = [employer] Test 16:06:05 FALL SCREEN] of Medicine Future Scheduled 2021-09-22 BMI FOLLOW UP PLAN [employer] Test 16:06:05 [code = BMI FOLLOW UP of Med icine PLAN] Future Scheduled 2021-09-05 Screening for malignant [facility] [employer] Test 08:36:55 neoplasm of colon of Medicin e (procedure) [code = 271053608] Future Scheduled 2021-09-05 COVID-19 Vaccine (1) [employer] Test 08:36:55 [code = COVID-19 of Medicine Vaccine (1)] Future Scheduled 2021-09-05 TETANUS SHOT (ADULT) [employer] Test 08:36:55 [code = TETANUS SHOT of Medi cine (ADULT)] Future Scheduled 2021-09-05 Hepatitis C screening [facility] [employer] Test 08:36:55 (procedure) [code = of Medic ine 778583497] Future Scheduled 2021-09-05 ZOSTER VACCINE (1 of 2) [facility] [employer] Test 08:36:55 [code = ZOSTER VACCINE of Me dicine (1 of 2)] Future Scheduled 2021-09-05 MEDICARE IPPE (WELCOME [facility] [employer] Test 08:36:55 TO MEDICARE) [code = of Medi cine MEDICARE IPPE (WELCOME TO MEDICARE)] Future Scheduled 2021-09-05 Abdominal aortic [facility] [employer] Test 08:36:55 aneurysm screening of Medici ne (procedure) [code = 016952888] Future Scheduled 2021-09-05 FALL SCREEN [code = [employer] Test 08:36:55 FALL SCREEN] of Medicine Future Scheduled 2021-09-05 PNEUMOVAX >=65 (PPSV23) [facility] [employer] Test 08:36:55 [code = PNEUMOVAX >=65 of Me dicine (PPSV23)] Future Scheduled 2021-09-05 BMI FOLLOW UP PLAN [employer] Test 08:36:55 [code = BMI FOLLOW UP of Med icine PLAN] Future Scheduled 2021-08-31 Screening for malignant [facility] [employer] Test 11:55:05 neoplasm of colon of Medicin e (procedure) [code = 729414592] Future Scheduled 2021-08-31 COVID-19 Vaccine (1) [facility] [employer] Test 11:55:05 [code = COVID-19 of Medicine Vaccine (1)] Future Scheduled 2021-08-31 TETANUS SHOT (ADULT) [facility] [employer] Test 11:55:05 [code = TETANUS SHOT of Medi cine (ADULT)] Future Scheduled 2021-08-31 Hepatitis C screening [facility] Test 11:55:05 (procedure) [code = of Medic ine 734731083] Future Scheduled 2021-08-31 ZOSTER VACCINE (1 of 2) [facility] Test 11:55:05 [code = ZOSTER VACCINE of Me dicine (1 of 2)] Future Scheduled 2021-08-31 MEDICARE IPPE (WELCOME [facility] [employer] Test 11:55:05 TO MEDICARE) [code = of Medi cine MEDICARE IPPE (WELCOME TO MEDICARE)] Future Scheduled 2021-08-31 Abdominal aortic [facility] Test 11:55:05 aneurysm screening of Medici ne (procedure) [code = 884208679] Future Scheduled 2021-08-31 FALL SCREEN [code = [employer] 11:55:05 FALL SCREEN] of Medicine Future Scheduled 2021-08-31 PNEUMOVAX >=65 (PPSV23) [facility] Test 11:55:05 [code = PNEUMOVAX >=65 of Me dicine (PPSV23)] Future Scheduled 2021-08-31 BMI FOLLOW UP PLAN [facility] [place] Test 11:55:05 [code = BMI FOLLOW UP of Med icine PLAN] Diagnostic Test 2021-08-31 MYOCARD PERFUSION - Expected: [employer] Pending 00:00:00 EXERCISE [code = 32935] 08/31/2021, of M edicine Expires: 03/01/2023 Future Scheduled 2021-08-30 US SCROTUM AND [facility] [employer] Test 11:22:02 TESTICLES [code = of Medicin e 73096-5] Future Scheduled 2021-08-18 US SCROTUM AND 1 Occurrences [facility] [employer] Test 15:55:28 TESTICLES [code = starting of Medicin e 31861-9] 08/18/2021 until 02/16/2022 Future Scheduled 2021-08-06 Medicare [...] MEDICARE)] Future Scheduled 2021-06-30 Screening for malignant [facility] [employer] Test 09:30:09 neoplasm of colon of Medicin e (procedure) [code = 513029458] Future Scheduled 2021-06-30 COVID-19 Vaccine (1) [employer] Test 09:30:09 [code = COVID-19 of Medicine Vaccine (1)] Future Scheduled 2021-06-30 TETANUS SHOT (ADULT) [employer] Test 09:30:09 [code = TETANUS SHOT of Medi cine (ADULT)] Future Scheduled 2021-06-30 Hepatitis C screening [facility] [employer] Test 09:30:09 (procedure) [code = of Medic ine 998769669] Future Scheduled 2021-06-30 Human immunodeficiency [employer] Test 09:30:09 virus screening of Medicine (procedure) [code = 894588847] Future Scheduled 2021-06-30 ZOSTER VACCINE (1 of 2) [facility] [employer] Test 09:30:09 [code = ZOSTER VACCINE of Me dicine (1 of 2)] Future Scheduled 2021-06-30 FLU VACCINE > 6 MONTHS [employer] Test 09:30:09 [code = FLU VACCINE > 6 of M edicine MONTHS] Future Scheduled 2021-06-30 BMI FOLLOW UP PLAN [employer] Test 09:30:09 [code = BMI FOLLOW UP of Med icine PLAN] Future Scheduled 2021-06-25 Screening for malignant [facility] [employer] Test 17:28:09 neoplasm of colon of Medicin e (procedure) [code = 018588620] Future Scheduled 2021-06-25 COVID-19 Vaccine (1) [employer] Test 17:28:09 [code = COVID-19 of Medicine Vaccine (1)] Future Scheduled 2021-06-25 TETANUS SHOT (ADULT) [employer] Test 17:28:09 [code = TETANUS SHOT of Medi cine (ADULT)] Future Scheduled 2021-06-25 Hepatitis C screening [employer] Test 17:28:09 (procedure) [code = of Medic ine 943119241] Future Scheduled 2021-06-25 [facility] Test 17:28:09 virus screening of Medicine (procedure) [code = 557491745] Future Scheduled 2021-06-25 ZOSTER VACCINE (1 of 2) [facility] [employer] Test 17:28:09 [code = ZOSTER VACCINE of Me dicine (1 of 2)] Future Scheduled 2021-06-25 FLU VACCINE > 6 MONTHS [employer] Test 17:28:09 [code = FLU VACCINE > 6 of M edicine MONTHS] Future Scheduled 2021-06-25 BMI FOLLOW UP PLAN [employer] Test 17:28:09 [code = BMI FOLLOW UP of Med icine PLAN] Future Scheduled 2021-06-24 ELECTROCARDIOGRAM [facility] [employer] Test 14:56:41 COMPLETE [code = 37146] of M edicine Future Scheduled 2021-06-01 Screening for malignant [facility] [employer] Test 17:46:52 neoplasm of colon of Medicin e (procedure) [code = 710201421] Future Scheduled 2021-06-01 COVID-19 Vaccine (1) [facility] [employer] Test 17:46:52 [code = COVID-19 of Medicine Vaccine (1)] Future Scheduled 2021-06-01 TETANUS SHOT (ADULT) [facility] [employer] Test 17:46:52 [code = TETANUS SHOT of Medi cine (ADULT)] Future Scheduled 2021-06-01 Hepatitis C screening [employer] Test 17:46:52 (procedure) [code = of Medic ine 904640003] Future Scheduled 2021-06-01 Human immunodeficiency [facility] Test 17:46:52 virus screening of Medicine (procedure) [code = 963168270] Future Scheduled 2021-06-01 ZOSTER VACCINE (1 of 2) [facility] [employer] Test 17:46:52 [code = ZOSTER VACCINE of Me dicine (1 of 2)] Future Scheduled 2021-06-01 FLU VACCINE > 6 MONTHS [employer] Test 17:46:52 [code = FLU VACCINE > 6 of M edicine MONTHS] Future Scheduled 2021-06-01 BMI FOLLOW UP PLAN [employer] Test 17:46:52 [code = BMI FOLLOW UP of Med icine PLAN] Future Scheduled 2021-05-05 Screening for malignant [facility] Test 18:10:22 neoplasm of colon of Medicin e (procedure) [code = 065739537] Future Scheduled 2021-05-05 COVID-19 Vaccine (1) [facility] Test 18:10:22 [code = COVID-19 of Medicine Vaccine (1)] Future Scheduled 2021-05-05 TETANUS SHOT (ADULT) [facility] Test 18:10:22 [code = TETANUS SHOT of Medi cine (ADULT)] Future Scheduled 2021-05-05 Hepatitis C screening [facility] Test 18:10:22 (procedure) [code = of Medic ine 409875069] Future Scheduled 2021-05-05 Human immunodeficiency B [facility] Test 18:10:22 virus screening of Medicine (procedure) [code = 378573880] Future Scheduled 2021-05-05 ZOSTER VACCINE (1 of 2) [facility] Test 18:10:22 [code = ZOSTER VACCINE of In dicine (1 of 2)] Future Scheduled 2021-05-05 FLU VACCINE > 6 MONTHS B [facility] Test 18:10:22 [code = FLU VACCINE > 6 of M edicine MONTHS] Future Scheduled 2021-05-05 BMI FOLLOW UP PLAN [facility] Test 18:10:22 [code = BMI FOLLOW UP of Med icine PLAN] Future Scheduled 2021-04-08 CULTURE, Ordered: [facility] [employer] Test 13:52:19 URINE/SENSITIVITY ON 04/08/2021 of Medi cine ALL [code = 35972-1] Future Scheduled 2021-04-08 US SCROTUM AND 1 Occurrences [facility] [employer] Test 13:52:19 TESTICLES [code = starting of Medicin e 55400-9] 04/08/2021 until 10/08/2021 Future Scheduled 2021-04-08 Screening for malignant [facility] Test 13:41:00 neoplasm of colon of Medicin e (procedure) [code = 455665433] Future Scheduled 2021-04-08 COVID-19 Vaccine (1) [facility] Test 13:41:00 [code = COVID-19 of Medicine Vaccine (1)] Future Scheduled 2021-04-08 TETANUS SHOT (ADULT) [facility] Test 13:41:00 [code = TETANUS SHOT of Medi cine (ADULT)] Future Scheduled 2021-04-08 Hepatitis C screening [facility] Test 13:41:00 (procedure) [code = of Medic ine 356195086] Future Scheduled 2021-04-08 Human immunodeficiency B [facility] Test 13:41:00 virus screening of Medicine (procedure) [code = 607431234] Future Scheduled 2021-04-08 ZOSTER VACCINE (1 of 2) [facility] Test 13:41:00 [code = ZOSTER VACCINE of Me dicine (1 of 2)] Future Scheduled 2021-04-08 FLU VACCINE > 6 MONTHS B [facility] Test 13:41:00 [code = FLU VACCINE > 6 of M edicine MONTHS] Future Scheduled 2021-04-08 BMI FOLLOW UP PLAN [facility] Test 13:41:00 [code = BMI FOLLOW UP of Med icine PLAN] Diagnostic Test 2021-02-16 ECHO, COMPLETE [code = Expected: [facility] Pending 00:00:00 56919] 02/16/2021, of Medicine Expires: 08/18/2021 Future Scheduled [...] HEPATITIS [facility] S[facility]] Future Scheduled [address] [facility] Test 00:00:00 Counseling and Medical Cente r Screening (12+) [code = Tobacco Cessation Counseling and Screening (12+)] Future Scheduled 1962 PNEUMOCOCCAL 65+ YRS (1 [...] colon Medical Ce nter (procedure) [code = 085490562] Future Scheduled 1956 Screening for malignant [facility] Test 00:00:00 neoplasm of colon Medical Ce nter (procedure) [code = 613047476] Future Scheduled 1956 Sigmoidoscopy [code = [facility]] Medical Cente r Future Scheduled 1956 CT Colonography (combo) [facility] Test 00:00:00 [code = CT Colonography [facility] (combo)] Future Scheduled 1956 Screening for malignant [facility] Test 00:00:00 neoplasm of colon Medical Ce nter (procedure) [code = 295131295] Future Scheduled 1956 Screening for malignant [facility] Test 00:00:00 neoplasm of colon Medical Ce nter (procedure) [code = 984669645] Future Scheduled 1956 Sigmoidoscopy [facility]code = [facility] Test 00:[facility] Sigmoidoscopy] Medical Cente r Future Scheduled 1956 CT Colonography (combo) [facility] Test 00:00:00 [code = CT Colonography Medi trang Center (combo)] Future Scheduled 1956 Screening for malignant [facility] Test 00:00:00 neoplasm of colon Medical Ce nter (procedure) [code = 683802117] Future Scheduled 1956 Screening for malignant [facility] Test 00:00:00 neoplasm of colon Medical Ce nter (procedure) [code = 601862903] Future Scheduled 1956 Sigmoidoscopy [code = [facility] Test 00:00:00 Sigmoidoscopy] Medical [facility] Future Scheduled 1956 CT Colonography (combo) [facility] Test 00:00:00 [code = CT Colonography [facility] (combo)] Future Scheduled 1956 Screening for malignant [facility] Test 00:00:00 neoplasm of colon Medical Ce nter (procedure) [code = 342385099] Future Scheduled 1956 Screening for malignant [facility] Test 00:00:00 neoplasm of colon Medical Ce nter (procedure) [code = 221948123] Future Scheduled 1956 Sigmoidoscopy [code = [facility] Test 00:00:00 Sigmoidoscopy] Medical [facility]ady[facility] r Future Scheduled 1956 CT Colonography (combo) [facility] Test 00:00:00 [code = CT Colonography [facility] (combo)] Future Scheduled 1956 Screening for malignant [facility] Test 00:00:00 neoplasm of colon Medical Ce nter (procedure) [code = 807963159] Future Scheduled 1956 Screening for malignant [facility] Test 00:00:00 neoplasm of colon Medical Ce nter (procedure) [code = 999417406] Future Scheduled 1956 Sigmoidoscopy [code = [facility] Test 00:[facility] Sigmoidoscopy] Medical Shady[facility] r Future Scheduled 1956 CT Colonography (combo) [facility] Test 00:00:00 [code = CT Colonography Medi [facility] (combo)] Future Scheduled 1956 Screening for malignant [facility] Test 00:00:00 neoplasm of colon Medical Ce nter (procedure) [code = 590252394] Future Scheduled 1956 Screening for malignant [facility] Test 00:00:00 neoplasm of colon Medical Ce nter (procedure) [code = 628064851] Future Scheduled 1956 Sigmoidoscopy [code = [facility] Test 00:[facility] Sigmoidoscopy] Medical Shady[facility] r Future Scheduled 1956 CT Colonography (combo) [facility] Test 00:00:00 [code = CT Colonography Medi trang Center (combo)] Future Scheduled 1956 Screening for malignant [facility] Test 00:00:00 neoplasm of colon Medical Ce nter (procedure) [code = 230935359] Future Scheduled 1956 Screening for malignant [facility] Test 00:00:00 neoplasm of colon Medical Ce nter (procedure) [code = 362999335] Future Scheduled 1956 Sigmoidoscopy [code = [facility] Test 00:[facility] Sigmoidoscopy] Medical Cente r Future Scheduled 1956 CT Colonography (combo) [facility] Test 00:00:00 [code = CT Colonography Medi trang Center (combo)] Future Scheduled 1956 Screening for malignant [facility] Test 00:00:00 neoplasm of colon Medical Ce nter (procedure) [code = 210567701] Future Scheduled 1956 Screening for malignant [facility] Test 00:00:00 neoplasm of colon Medical Ce nter (procedure) [code = 464773363] Future Scheduled 1956 Sigmoidoscopy [facility]code [facility] Test 00:[facility] S[facility]oidoscopy] Medical Cente r Future Scheduled 1956 CT Colonography (combo) [facility] Test 00:00:00 [code = CT Colonography Medi trang Center (combo)] Future Scheduled 1956 Screening for malignant [facility] Test 00:00:00 neoplasm of colon Medical Ce nter (procedure) [code = 262552790] Future Scheduled 1956 Screening for malignant [facility] Test 00:00:00 neoplasm of colon Medical Ce nter (procedure) [code = 650757199] Future Scheduled 1956 Sigmoidoscopy [code = [facility] Test 00:00:00 Sigmoidoscopy] Medical Cente r Future Scheduled 1956 CT Colonography (combo) [facility] Test 00:00:00 [code = CT Colonography Medi trang Center (combo)] Future Scheduled 1956 Screening for malignant [facility] Test 00:00:00 neoplasm of colon Medical Ce nter (procedure) [code = 072708877] Future Scheduled 1956 Screening for malignant [facility] Test 00:00:00 neoplasm of colon Medical Ce nter (procedure) [code = 388062791] Future Scheduled 1956 Sigmoidoscopy [facility]code [facility] Test 00:[facility] Sigmoidoscopy] Medical Cente r Future Scheduled 1956 CT Colonography (combo) [facility] Test 00:00:00 [code = CT Colonography Medi trang Center (combo)] Future Scheduled 1956 Screening for malignant [facility] Test 00:00:00 neoplasm of colon Medical Ce nter (procedure) [code = 564880430] Future Scheduled 1956 Screening for malignant [facility] Test 00:00:00 neoplasm of colon Medical Ce nter (procedure) [code = 877437437] Future Scheduled 1956 Sigmoidoscopy [code = [facility] Test 00:[facility] Sigmoidoscopy] Medical [facility] Future Scheduled 1956 CT Colonography (combo) [facility] Test 00:00:00 [code = CT Colonography Medi trang Center (combo)] Future Scheduled 1956 Screening for malignant [facility] Test 00:00:00 neoplasm of colon Medical Ce nter (procedure) [code = 423260681] Future Scheduled 1956 Screening for malignant [facility] Test 00:00:00 neoplasm of colon Medical Ce nter (procedure) [code = 065853480] Future Scheduled 1956 Sigmoidoscopy [code [facility] Test 00:[facility] Sigmoidoscopy] Medical [facility] Future Scheduled 1956 CT Colonography (combo) [facility] Test 00:00:00 [code = CT Colonography Medi trang Center (combo)] Future Scheduled 1956 Screening for malignant [facility] Test 00:00:00 neoplasm of colon Medical Ce nter (procedure) [code = 333107658] Future Scheduled 1956 Screening for malignant [facility] Test 00:00:00 neoplasm of colon Medical Ce nter (procedure) [code = 704745810] Future Scheduled 1956 Sigmoidoscopy [code = [facility] Test 00:00:00 Sigmoidoscopy] Medical [facility] r Future Scheduled 1956 CT Colonography (combo) [facility] Test 00:00:00 [code = CT Colonography Medi trang Center (combo)] Future Scheduled 1956 Screening for malignant [facility] Test 00:00:00 neoplasm of colon Medical Ce nter (procedure) [code = 497664446] Future Scheduled 1956 Screening for malignant [facility] Test 00:00:00 neoplasm of colon Medical Ce nter (procedure) [code = 235285525] Future Scheduled 1956 Sigmoidoscopy [code = [facility] Test 00:00:00 Sigmoidoscopy] Medical [facility] Future Scheduled 1956 CT Colonography (combo) [facility] Test 00:00:00 [code = CT Colonography Medi trang Center (combo)] Future Scheduled 1956 Screening for malignant [facility] Test 00:00:00 neoplasm of colon Medical Ce nter (procedure) [code = 496485193] Future Scheduled 1956 Screening for malignant [facility] Test 00:00:00 neoplasm of colon Medical Ce nter (procedure) [code = 852007126] Future Scheduled 1956 Sigmoidoscopy [code = [facility] Test 00:[facility] Sigmoidoscopy] Medical Cora r Future Scheduled 1956 CT Colonography (combo) [facility] Test 00:00:00 [code = CT Colonography Medi trang Center (combo)] Future Scheduled 1956 Screening for malignant [facility] Test 00:00:00 neoplasm of colon Medical Ce nter (procedure) [code = 048383642] Future Scheduled 1956 Screening for malignant [facility] Test 00:00:00 neoplasm of colon Medical Ce nter (procedure) [code = 809551489] Future Scheduled 1956 Sigmoidoscopy [code [facility] Test 00:[facility] Sigmoidoscopy] Medical [facility]ady[facility] r Future Scheduled 1956 CT Colonography (combo) [facility] Test 00:00:00 [code = CT Colonography Medi trang Center (combo)] Future Scheduled 1956 Screening for malignant [facility] Test 00:00:00 neoplasm of colon Medical Ce nter (procedure) [code = 812352194] Future Scheduled 1956 Screening for malignant [facility] Test 00:00:00 neoplasm of colon Medical Ce nter (procedure) [code = 629384081] Future Scheduled 1956 Sigmoidoscopy [facility]code [facility] Test 00:[facility] S[facility]oidoscopy] Medical Cente r Future Scheduled 1956 CT Colonography (combo) [facility] Test 00:00:00 [code = CT Colonography Medi [facility] (combo)] Future Scheduled 1956 Screening for malignant [facility] Test 00:00:00 neoplasm of colon Medical Ce nter (procedure) [code = 897246379] Future Scheduled 1956 Screening for malignant [facility] Test 00:00:00 neoplasm of colon Medical Ce nter (procedure) [code = 642342208] Future Scheduled 1956 Sigmoidoscopy [code [facility] Test 00:[facility] S[facility]oidoscopy] Medical Cente r Future Scheduled COLON CANCER SCREENING: [facility] [employer] Test COLONOSCOPY [code = of Medic ine COLON CANCER SCREENING: COLONOSCOPY] Future Scheduled TETANUS SHOT (ADULT) [employer] Test [code = TETANUS SHOT [...] of Medicine Future Scheduled COLON CANCER SCREENING: [facility] [employer] Test COLONOSCOPY [code = of Medic ine COLON CANCER SCREENING: COLONOSCOPY] Future Scheduled TETANUS SHOT (ADULT) [employer] Test [code = TETANUS SHOT [...] edicine MONTHS] Future Scheduled COLON CANCER SCREENING: [facility] [employer] Test COLONOSCOPY [code = of Medic ine COLON CANCER SCREENING: COLONOSCOPY] Future Scheduled TETANUS SHOT (ADULT) [employer] [facility] [code = TETANUS SHOT [...] of 2)] Future Scheduled COLON CANCER SCREENING: [facility] [employer] Test COLONOSCOPY [code = of Medic ine COLON CANCER SCREENING: COLONOSCOPY] Future Scheduled TETANUS SHOT (ADULT) [employer] [facility] [code = TETANUS SHOT [...] of 2)] Future Scheduled COLON CANCER SCREENING: [facility] Test COLONOSCOPY [code = of Medic ine COLON CANCER SCREENING: COLONOSCOPY] Future Scheduled COVID-19 Vaccine [facility] [employer] Test Evaluation [code = of Medici ne COVID-19 Vaccine Evaluation] Future Scheduled TETANUS SHOT (ADULT) [employer] [facility] [code = TETANUS SHOT [...] Future Scheduled ZOSTER VACCINE (1 of 2) [facility] [employer] Test [code = ZOSTER VACCINE of Me dicine (1 of 2)] Future Scheduled COLON CANCER SCREENING: [facility] [employer] Test COLONOSCOPY [code = of Medic ine COLON CANCER SCREENING: COLONOSCOPY] Future Scheduled COVID-19 Vaccine [facility] [employer] Test Evaluation [code = of Medici ne COVID-19 Vaccine Evaluation] Future Scheduled TETANUS SHOT (ADULT) [employer] [facility] [code = TETANUS SHOT of Medi cine (ADULT)] Future Scheduled HEPATITIS C SCREENING [employer] Test [code = HEPATITIS C of Medic ine SCREENING] Future Scheduled HIV SCREENING [code = [employer] [facility] HIV SCREENING] of Medicine Future Scheduled ZOSTER VACCINE (1 of 2) [facility] [employer] Test [code = ZOSTER VACCINE of Me dicine (1 of 2)] Future Scheduled BMI FOLLOW UP PLAN [employer] Test [code = BMI FOLLOW UP of Med icine PLAN] Future Scheduled Screening for malignant [facility] [employer] Test neoplasm of colon of Medicin e (procedure) [code = 505557181] Future Scheduled TETANUS SHOT (ADULT) [employer] [facility] [code = TETANUS SHOT of Medi cine (ADULT)] Future Scheduled COVID-19 Vaccine (1) [employer] [facility] [code = COVID-19 of Medicine Vaccine (1)] Future Scheduled Hepatitis C screening [employer] [facility] (procedure) [code = of Medic ine 324813769] Future Scheduled Human immunodeficiency [employer] virus screening of Medicine (procedure) [code = 997966199] Future Scheduled ZOSTER VACCINE (1 of 2) [employer] Test [code = ZOSTER VACCINE of Me dicine (1 of 2)] Future Scheduled BMI FOLLOW UP PLAN [employer] Test [code = BMI FOLLOW UP of Med icine PLAN] Future Scheduled ELECTROCARDIOGRAM [employer] Test COMPLETE [code = 62493] of M edicine Future Scheduled Screening for malignant [employer] Test neoplasm of colon of Medicin e (procedure) [code = 315269028] Future Scheduled TETANUS SHOT (ADULT) [employer] [facility] [code = TETANUS SHOT of Medi cine (ADULT)] Future Scheduled COVID-19 Vaccine (1) [employer] [facility] [code = COVID-19 of Medicine Vaccine (1)] Future Scheduled Hepatitis C screening [employer] [facility] (procedure) [code = of Medic ine 173455497] Future Scheduled Human immunodeficiency [employer] virus screening of Medicine (procedure) [code = 407959044] Future Scheduled ZOSTER VACCINE (1 of 2) [...] icine PLAN] Future Scheduled Screening for malignant [facility] [employer] Test neoplasm of colon of Medicin e (procedure) [code = 783127834] Future Scheduled TETANUS SHOT (ADULT) [employer] [facility] [code = TETANUS SHOT of Medi cine (ADULT)] Future Scheduled COVID-19 Vaccine (1) [employer] [facility] [code = COVID-19 of Medicine Vaccine (1)] Future Scheduled Hepatitis C screening [employer] [facility] (procedure) [code = of Medic ine 082322461] [facility]uled [facility] virus screening of Medicine (procedure) [code = 063694291] Future Scheduled ZOSTER VACCINE (1 of 2) [facility] [employer] Test [code = ZOSTER VACCINE of Me dicine (1 of 2)] Future Scheduled FLU VACCINE > 6 MONTHS [employer] Test [code = FLU VACCINE > 6 of M edicine MONTHS] Future Scheduled BMI FOLLOW UP PLAN [employer] Test [code = BMI FOLLOW UP of Med icine PLAN] Future Scheduled TETANUS SHOT (ADULT) [employer] [facility] [code = TETANUS SHOT of Medi cine (ADULT)] Future Scheduled BMI FOLLOW UP PLAN [employer] Test [code = BMI FOLLOW UP of Med icine PLAN] Future Scheduled HEPATITIS C SCREENING [employer] [facility] [code = HEPATITIS C of Medic ine SCREENING] Future Scheduled HIV SCREENING [code = [employer] [facility] HIV SCREENING] of Medicine Future Scheduled FLU VACCINE > 6 MONTHS [employer] Test [code = FLU VACCINE > 6 of M edicine MONTHS] Future Scheduled COLON CANCER SCREENING: [facility] Test COLONOSCOPY [code = of Medic ine COLON CANCER SCREENING: COLONOSCOPY] Future Scheduled CTA CORONARY W/CALCIUM 1 Occurrences [facility] Test SCORING W/CONTRAST starting of Medici ne [code = 88588] 02/16/2021 until 02/16/2022 Future Scheduled US 1 Occurrences [facility] Col lege Test AORTA,IVC,ILIACS,GRAFT starting of Me dicine COMPLETE DUPLEX [code = 01/25/2021 until 51277-9] 01/25/2022 Future Scheduled US CAROTID [code = 1 Occurrences [employer] Test 56263] starting of Medicine 01/25/2021 until 01/25/2022 Future Scheduled US ARTERIAL LEG LEFT 1 Occurrences [employer] Test [code = 40393] starting of Medicine 12/07/2020 until 07/07/2021 Future Scheduled CTA ABD AORTA AND 1 Occurrences [employer] Test ILIOFEMORAL RUNOFF starting of Medici ne [code = 34882] 12/07/2020 until 07/07/2021 Future Scheduled TREADMILL, NO IMAGING 1 Occurrences [employer] Test [code = 18689] starting of Medicine 04/23/2020 until 04/23/2021 Future Scheduled NOVEL 2019 1 Occurrences [facility] lege Test CORONAVIRUS(COVID-19),N starting of M edicine AA [code = U0004] 04/23/2020 until 10/23/2020 Goal Plan of Care Note [code = 14090-3] Goal Plan of Care Note [code = 13328-7] Goal Plan of Care Note [code = 44837-5] Goal Plan of Care Note [code = 74613-5] Goal Plan of Care Note [code = 46159-3] Goal Plan of Care Note [code = 04278-2] Goal Plan of Care Note [code = 26073-2] Goal Plan of Care Note [code = 95757-3] Goal Plan of Care Note [code = 04530-8] Goal Plan of Care Note [code = 39319-2] Encounters Start End Encounter Admission Attending Care Care Encounter Source Date/Time Date/Time Type Type Clinicians Facility Department ID 2022-11-17 Outpatient Pickett, STLMLC [facility] [id number] Common 12:34:00 Edilson [id number] [facility] 2022-10-27 Outpatient [facility] [id number] [place] 12:18:[id number] [facility] 2022-09-22 Outpatient Pickett, STLMLC [facility] [id number] Common 08:57:00 Counts Include 234 Beds At [facility] 2022-08-29 Outpatient Pickett, STLMLC [facility] [id number] Common 10:46:00 Edilson [facility] 2022-03-24 Outpatient Pickett, STLMLC [facility] [id number] Common 13:04:00 Edilson [facility] 2022-03-01 Outpatient Pickett, STLMLC [facility] [id number] Common 10:33:01 Edilson [facility] 2022-01-17 Outpatient Pickett, STLMLC [facility] [id number] Common 13:26:00 Edilson [facility] 2021-12-24 Outpatient Pickett, STLMLC [facility] [id number] Common 12:30:01 Edilson [facility] 2021-12-01 Outpatient Pickett, STLMLC [facility] [id number] Common 14:39:55 Counts Include 234 [facility] 2021-12-01 Outpatient Pickett, STLMLC [facility] [id number] Common 14:24:19 Counts Include 234 Beds [facility] 90500 [facility] 2021-12-01 Outpatient Okosun, STLMLC [facility] [id number] Common 14:03:48 Rj 97557 [facility] 2021-12-01 Outpatient [place], STLMLC [facility] [id number] Common 13:53:57 Rj [id number] [facility] 2021-12-01 Outpatient [place], STLMLC [facility] [id number] Common 13:42:50 Rj [id number] [facility] 2021-12-01 Outpatient Okosun, STLMLC [facility] [id number] Common 11:04:27 Rj 31502 [facility] 2021-08-15 Inpatient YUMIKO, SLE Surgery [id number] SLE 03:03:46 PLEDGER 2021-08-14 Outpatient ALAM, SLEH Surgery [id number] [facility] 23:18:50 [facility] 2021-08[facility]14 Outpatient JARRELL, SLEH Surgery [id number] SLE 04:42:31 MARIUSZ 2023-04-03 2023-04-03 Outpatient JOSIANE ZAMBRANO [facility] [id number] [facility] 00:00:00 00:00:00 CATHLEEN Hernandez 2023-01-17 2023-01-17 Outpatient MHIE MHIE [id number] Memoria 14:00:00 14:00:00 07 jem Campbell 2023-01-17 2023-01-17 Outpatient MHIE MHIE [id number] Memoria 14:00:00 14:00:00 07 jem Campbell 2023-01-16 2023-01-16 Office PETE NICOLE [facility] 1.2.840.114 [id number] [facility] 09:05:39 10:35:48 Visit AMBULATOR 350.1.13.21 College Y 0.2.7.2.686 of [id number] Medi aleksandra 800 e 2023-01-12 2023-01-12 Office JOSIANE LANDRY 1.2.840.114 [id number] [facility] 08:10:16 15:48:54 Visit ROSELINE AMBULATOR 350.1.13.21 College Y 0.2.7.2.686 of [id number] Medi aleksandra 825 e 2023-01-12 2023-01-12 Outpatient [facility] [id number] [facility] 08:10:27 15:34:24 Colleg e of Medicin e 2022-12-14 2022-12-14 Outpatient [facility] 023 López 15:36:54 15:36:54 0208 F [place] 2022-12-06 2022-12-06 [facility] [id number] [facility] 16:32:35 16:33:34 LUIZA [employer]in [employer] 2022-12-06 2022-12-06 Office Parag [facility] 1.2.840.114 [id number] [facility] 15:15:00 16:07:02 Visit Ruth AMBULATOR 350.1.13.21 College TangelaKendall Y 0.2.7.2.686 of [id number] Medi aleksandra 800 e 2022-12-06 2022-12-06 [facility] [id number] [facility] 14:10:06 16:00:55 LUIZA [employer] 2022-11-30 2022-11-30 Outpatient [facility] 023 López 14:58:57 14:58:57 0125 [facility] 2022-11-25 2022-11-25 Outpatient [facility] [id number] [facility] 14:26:37 14:26:37 Colleg e [employer] Medicin e 2022-11-16 2022-11-16 Outpatient CHRISTOPHER [facility] [id number] [place] 10:00:00 10:00:00 [facility] 2022-11-15 2022-11-15 (TEL) STLC [facility] [id number] Co mmon 00:00:00 00:00:00 [facility] 2022-11-09 2022-11-10 Outpatient MHIE MNA [id number] Memoria 17:30:00 05:59:59 Neurology 10 l Sheila Campbell 2022-11-09 2022-11-10 Outpatient MHIE MNA [id number] Memoria 17:30:00 05:59:59 Neurology 10 l Sheila Campbell 2022-11-09 2022-11-09 Outpatient JANNETTE MartinezSCHER MHMISCHER [id number] 11:30:00 23:59:59 Aleksander Pratima Samson 2022-11-09 2022-11-09 Outpatient MHIE MHIE [id number] Memoria 11:30:00 11:30:00 10 jem Campbell 2022-11-03 2022-11-03 Office PILI BCSamir 1.2.840.114 [id number] [facility] 13:58:50 13:58:50 Visit ARLEY WOMACK AMBULATOR 350.1.13.21 College Y 0.2.7.2.686 of [id number] Medi aleksandra 300 e 2022-10-04 2022-10-04 Office JOSIANE Dennison 1.2.840.114 [id number] [facility] 14:40:00 15:14:37 Visit Mohan AMBULATOR 350.1.13.21 College Y 0.2.7.2.686 of [id number] Medi aleksandra 375 e 2022-09-28 2022-09-29 Outpatient MHIE MNA [id number] Memoria 17:45:00 05:59:59 Neurology 09 jem Campbell 2022-09-28 2022-09-29 Outpatient MHIE MNA [id number] Memoria 17:45:00 05:59:59 Neurology 09 jem Campbell 2022-09-28 2022-09-28 Outpatient JANNETTE MartinezSCHER MHMISCHER [id number] 11:45:00 23:59:59 Aleksander Jen Samson 2022-09-28 2022-09-28 Outpatient MHIE MHIE [id number] Memoria 11:45:00 11:45:00 09 [facility] 2022-09-26 2022-09-26 OFFICE STLMLC STLMLC [id number] Co mmon 00:00:00 00:00:00 VISIT Spirit ESTAB PT - CHI LEVEL 4 [facility] 2022-08-18 2022-08-20 Phone nullFlavo [facility] Multi [id number] Memoria 18:22:18 04:59:59 Message r Specialty 03 l [facility] 2022-08-18 2022-08-20 Phone nullFlavo [facility] Multi [id number] Memoria 18:22:18 04:59:59 Message r Specialty 03 l [facility] 2022-08-18 2022-08-19 Outpatient MHMG MHMG [id number] 13:22:18 23:59:59 2022-08-16 2022-08-16 Day nullFlavo [facility] [id number] Memoria 13:30:00 13:30:00 Surgery [facility] 01 [facility] 2022-08-16 2022-08-16 Day nullFlavo [facility] [id number] Memoria 13:30:00 13:30:00 Surgery r Aguila 01 [facility] 2022-08-16 2022-08-16 Ambulatory nullFlavo [facility] Multi 55 [id number] Memoria 13:30:00 13:30:00 Pre-Reg r Specialty 08 [facility] 2022-08-16 2022-08-16 Ambulatory nullFlavo [facility] Multi 55 [id number] Memoria 13:30:00 13:30:00 Pre-Reg r Specialty 08 [facility] 2022-08-16 2022-08-16 Outpatient MHPL MHPL [id number] 08:30:00 08:30:00 2022-08-16 2022-08-16 Outpatient MHIE MHIE [id number] Memoria 08:30:00 08:30:00 08 [facility] 2022-08-16 2022-08-16 Outpatient Alawamarcus, MHMG MHMG [id number] 08:30:00 08:30:00 Mookie 08 2022-08-12 2022-08-12 Outpatient TIFF, MHBL EULALIO [id number] MHBL 08:30:00 23:59:00 MOOKIE 2022-08-01 2022-08-03 Phone nullFlavo MG [id number] Memoria 17:39:58 04:59:59 Message r General 02 l [facility] 2022-08-01 2022-08-03 Phone nullFlavo MG [id number] Memoria 17:39:58 04:59:59 Message r General 02 l [facility] 2022-08-01 2022-08-02 Outpatient MG [facility] [id number] 12:39:58 23:59:59 2022-08-02 2022-08-02 (TEL) STLMLC STLMLC [id number] Co mmon 00:00:00 00:00:00 [facility] 2022-07-27 2022-07-27 Office JOSIANE Alejandre 1.2.840.114 [id number] [facility] 09:30:00 14:39:54 Visit Arley AMBULATOR 350.1.13.21 College Y 0.2.7.2.686 of [id number] [facility] aleksandra 300 e 2022-07-25 2022-07-27 Phone nullFlavo [facility] [id number] Memoria 16:27:21 04:59:59 Message r General 01 l [facility] 2022-07-25 2022-07-27 Phone nullFlavo [facility] [id number] Memoria 16:27:21 04:59:59 Message r General 01 l [facility] 2022-07-25 2022-07-26 Outpatient MG [facility] [id number] 11:27:21 23:59:59 2022-07-19 2022-07-20 Outpatient nullFlavo MNA [id number] Memoria 19:45:00 04:59:59 r Neurology 05 l [facility] 2022-07-19 2022-07-20 Outpatient nullFlavo MNA [id number] Memoria 19:45:00 04:59:59 r Neurology 05 l [facility] 2022-07-19 2022-07-19 Outpatient ZENAIDA Martinez [id number] 14:45:00 23:59:59 Aleksander Samson 2022-07-19 2022-07-19 Outpatient IE IE [id number] Memoria 14:45:00 14:45:00 05 [facility] 2022-07-14 2022-07-16 Phone nullFlavo [facility] [id number] Memoria 18:31:52 04:59:59 Message r General 00 l [facility] 2022-07-14 2022-07-16 Phone nullFlavo [facility] [id number] Memoria 18:31:52 04:59:59 Message r General 00 l [facility] 2022-07-14 2022-07-15 Outpatient [facility] [id number] 13:31:52 23:59:59 00 2022-07-12 2022-07-12 Outpatient [id number] [id number] 00:00:00 00:00:00 Visit [id number] 2022-07-08 2022-07-09 Outpatient nullFlavo [facility] Multi 55 [id number] Memoria 16:45:00 04:59:59 r Specialty 06 l [facility] 2022-07-08 2022-07-09 Outpatient nullFlavo [facility] Multi 55 [id number] Memoria 16:45:00 04:59:59 r Specialty 06 l [facility] 2022-07-08 2022-07-08 Outpatient Tiff [facility] [id number] 11:45:00 23:59:59 Mookie 06 2022-07-08 2022-07-08 Outpatient IE IE [id number] Memoria 11:45:00 11:45:00 06 [facility] 2022-06-30 2022-06-30 Office ALEJANDRE [facility] 1.2.840.114 [id number] [facility] 09:21:26 11:25:43 Visit ARLEY WOMACK AMBULATOR 350.1.13.21 College Y 0.2.7.2.686 of [id number] Medi aleksandra 300 e 2022-06-24 2022-06-25 Outpatient nullFlavo [facility] [id number] Memoria 14:33:00 04:59:00 r Adrian 00 l [facility] 2022-06-24 2022-06-25 Outpatient nullFlavo [facility] [id number] Memoria 14:33:00 04:59:00 r Aguila 00 l [facility] 2022-06-24 2022-06-24 Outpatient ERICKA Valdivia MHSE [id number] 09:33:00 23:59:00 Carlos 00 2022-06-15 2022-06-15 OFFICE STLMLC STLMLC [id number] Co mmon 00:00:00 00:00:00 VISIT EST Spir it PT LEVEL 3 - CHI [facility] 2022-06-10 2022-06-10 Office JOSIANE Tinajero 1.2.840.[id number] [place] [address] 09:30:00 09:50:15 Visit Ramyar AMBULATOR 350.1.13.21 College Y 0.2.7.2.686 of [id number] [facility] aleksandra 825 e 2022-06-10 2022-06-10 Outpatient [facility] [id number] [facility] 07:46:23 09:47:32 Colleg e of Medicin e 2022-06-02 2022-06-03 Outpatient nullFlavo MNA [id number] Memoria 19:30:00 04:59:59 r Neurology 04 l [facility] Adrian 2022-06-02 2022-06-03 Outpatient nullFlavo MNA [id number] Memoria 19:30:00 04:59:59 r Neurology 04 l Sheila Campbell 2022-06-02 2022-06-02 Outpatient JANNETTE MartinezSCHER ASHLEYMISCHER [id number] 14:30:00 23:59:59 Aleksander Samson 2022-06-02 2022-06-02 Outpatient RHODA DUONG [id number] Memoria 14:30:00 14:30:00 04 l Adrian 2022-06-02 2022-06-02 OFFICE STLMLC STLMLC [id number] Co mmon 00:00:00 00:00:00 VISIT Spirit ESTAB PT - CHI LEVEL 4 [facility] 2022-05-17 2022-05-17 Office Pete Nicole [facility] 1.2.840.114 [id number] [facility] 10:30:00 10:50:00 Visit AMBULATOR 350.1.13.21 College Y 0.2.7.2.686 of [id number] Medi aleksandra 800 e 2022-05-17 2022-05-17 Office JOSIANE Dennison 1.2.840.114 [id number] [facility] 09:40:00 10:00:00 Visit Mohan AMBULATOR 350.1.13.21 College Y 0.2.7.2.686 of [id number] Medi aleksandra 375 e 2022-05-16 2022-05-16 OFFICE STLMLC STLMLC [id number] Co mmon 00:00:00 00:00:00 VISIT Spirit ESTAB PT - CHI LEVEL 4 [facility] 2022-05-06 2022-05-06 Office NEMESIO PETE [facility] 1.2.840.114 [id number] [facility] 10:01:27 14:39:20 Visit AMBULATOR 350.1.13.21 College Y 0.2.7.2.686 of [id number] Medi aleksandra 800 e 2022-05-05 2022-05-05 Telephone Lei WAKILO 1.2.840.114 [id number] [facility] 00:00:00 00:00[facility]00 [facility] 350.1.13.10 it y of [place] 4.2.7.2.686 Hi as OCTAVIO?BLEA [id number] [address] OFFICE BUILDING 2022-05-04 2022-05-04 Office PILI [facility] 1.2.840.114 [id number] [facility] 14:49:07 15:38:13 Visit NORA WOMACKOY AMBULATOR 350.1.13.21 College Y 0.2.7.2.686 of [id number] [facility] aleksandra 300 e 2022-04-28 2022-04-28 Outpatient R LEI WAKILO [facility] [id number] Univers 08:30:00 08:32:41 ANGELICA farr [facility] 2022-04-28 2022-04-28 Office Lei [facility] 1.2.581.823 [id number] Univers 08:30:00 08:32:41 Visit Angelica DAILY 350.1.13.10 it y of [place] 4.2.7.2.686 Hi as OCTAVIO?BLEA [id number] In kalyani IVERSON [address] [facility] OFFICE [facility] 2022-04-27 2022-04-27 Telephone HAN Odom 1.2.840.114 [id number] Univers 00:00:00 00:00:00 Angelica DAILY 350.1.13.10 it y of [place] 4.2.7.2.686 Hi as OCTAVIO?BLEA [id number] In kalyani IVERSON 198 [facility] 2022-04-21 2022-04-22 Outpatient nullFlavo MNA [id number] Memoria 21:00:00 04:59:59 r Neurology 02 jem Campbell 2022-04-21 2022-04-22 Outpatient nullFlavo MNA [id number] Memoria 21:00:00 04:59:59 r Neurology 02 jem Sheila Campbell 2022-04-21 2022-04-21 Outpatient Juan MISCHER MHMISCHER [id number] 16:00:00 23:59:59 Aleksander Kaylene Chapin 2022-04-21 2022-04-21 Outpatient RHODA DUONG [id number] Memoria 16:00:00 16:00:00 02 jem Campbell 2022-04-19 2022-04-19 [facility], 2.840.1 [id number] [id number] Methodi 14:43:42 23:59:00 Encounter Karen Vargas 40315.1.[address] 3.430.2.7 Hospit a .3.851924 l .8 2022-04-19 2022-04-19 [facility], 1.2.840.1 [id number] 2099 [id number] Methodi 14:43:42 23:59:00 Encounter Karen Vargas 80353.1.[address] 3.430.2.7 Hospit a .3.045809 l .8 2022-04-19 2022-04-19 [facility], .2.840.1 [id number] 2099 [id number] Methodi 14:43:11 23:59:00 Encounter Karen Vargas 35360.1.[address] 3.430.2.7 Hospit a .3.420513 l .8 2022-04-19 2022-04-19 [facility], 1.2.840.1 [id number] 2100 355513 Methodi 14:43:11 23:59:00 Encounter Karen Vargas 10220.1.[address] 3.430.2.7 Hospit a .3.499092 l .8 2022-04-19 2022-04-19 [facility], 1.2.840.1 [id number] 27914 Methodi 14:00:00 15:30:09 Visit Karen Vargas 96239.1.1 374 s t 3.430.2.7 Hospit a .3.473866 l .8 2022-04-19 2022-04-19 [facility], 1.2.840.1 [id number] 86908 06471 Methodi 14:00:00 15:30:09 Visit Karen Vargas 41926.1.1 374 s t 3.430.2.7 Hospit a .3.105347 l .8 2022-04-19 2022-04-19 [facility], 1.2.840.1 [id number] 2099 [id number] Methodi 14:37:12 14:42:00 Encounter Karen Vargas 68234.1.[address] 3.430.2.7 Hospit a .3.389657 l .8 2022-04-19 2022-04-19 [facility], 1.2.840.1 [id number] 2099 [id number] Methodi 14:37:12 14:42:00 Encounter Karen Vargas 36869.1.[address] 3.430.2.7 Hospit a .3.689284 l .8 2022-04-19 2022-04-19 [facility], 1.2.840.1 [id number] 91378 21297 Methodi 00:00:00 00:00:00 Only Karen Vargas 69556.1.1 324 s t 3.430.2.7 Hospit a .3.045454 l .8 2022-04-192022-04-19 Travel 1.2.840.1 1.2.152.177 3935 247019 Methodi 00:00:00 00:00:[address] 3.430.2.7 0.2.7.3.698 Ho spita .3.922075 084.8 l .8 2022-04-19 2022-04-19 Outpatient MIRIAN, [facility] [id number] [place] 00:00:00 00:00:00 KAREN Zamora Method i st 2022-04-19 2022-04-19 Orders Mirian, 1.2.840.1 [id number] 94647 Methodi 00:00:00 00:00:00 Only Karen Vargas 28230.1.1 324 s t 3.430.2.7 Hospit a .3.967884 l .8 2022-04-19 2022-04-19 Travel 1.2.840.1 1.2.162.792 1227 333503 Methodi 00:00:00 00:00:[address] 3.430.2.7 0.2.7.3.698 Ho spita .3.549127 084.8 l .8 2022-04-15 2022-04-15 (TEL) STLMLC STLMLC [id number] Co mmon 00:00:00 00:00:00 [facility] 2022-04-12 2022-04-12 Office PETE NICOLE Samir 1.2.840.114 [id number] [facility] 13:59:16 15:48:48 Visit AMBULATOR 350.1.13.21 College Y 0.2.7.2.686 of [id number] Medi aleksandra 800 e 2022-03-29 2022-03-29 Office Pete Nicole 1.2.840.114 [id number] [facility] 15:00:00 15:40:00 Visit AMBULATOR 350.1.13.21 College Y 0.2.7.2.686 of [id number] Medi aleksandra 800 e 2022-03-25 2022-03-25 (TEL) STLMLC STLMLC [id number] Co mmon 00:00:00 00:00:00 Spirit - CHI [facility] 2022-03-23 2022-03-24 Outpatient nullFlavo [facility] Multi 55 [id number] Memoria 20:00:00 04:59:59 r Specialty 03 l [facility] 2022-03-23 2022-03-24 Outpatient nullFlavo [facility] Multi 55 [id number] Memoria 20:00:00 04:59:59 r Specialty 03 l [facility] 2022-03-24 2022-03-24 OFFICE STLMLC STLMLC [id number] Co mmon 00:00:00 00:00:00 VISIT Spirit ESTAB PT - CHI LEVEL 4 [facility] 2022-03-23 2022-03-23 Outpatient Khani, MHMG MHMG [id number] 15:00:00 23:59:59 Mohummed 03 Radwan 2022-03-23 2022-03-23 Outpatient MHIE MHIE [id number] Memoria 15:00:00 15:00:00 03 jem EppsAdrian 2022-03-18 2022-03-18 Office MELODY, BCM 1.2.840.114 [id number] [facility] 09:50:45 11:50:51 Visit RAMYAR AMBULATOR 350.1.13.21 College Y 0.2.7.2.686 of [id number] [facility] aleksandra 825 e 2022-03-16 2022-03-16 Office WHITE, BCM 1.2.840.114 [id number] [facility] 14:27:41 14:27:41 Visit CHUCKIE AMBULATOR 350.1.13.21 College Y 0.2.7.2.686 of 484.0362751 Medi aleksandra 300 e 2022-03-14 2022-03-15 Outpatient nullFlavo MNA [id number] Memoria 18:30:00 04:59:59 r Neurology 01 l Sheila Campbell 2022-03-14 2022-03-15 Outpatient nullFlavo MNA [id number] Memoria 18:30:00 04:59:59 r Neurology 01 l Sheila Adrian 2022-03-14 2022-03-14 Outpatient JANNETTE MartinezSCHER AMANDASCHER [id number] 13:30:00 23:59:59 Aleksander Claudia Samson 2022-03-14 2022-03-14 Outpatient MHIE RHODA [id number] Memoria 13:30:00 13:30:00 01 jem Campbell 2022-03-02 2022-03-02 OFFICE STLMLC STLMLC [id number] Co mmon 00:00:00 00:00:00 VISIT Spirit ESTAB PT - CHI LEVEL 4 [facility] 2022-03-02 2022-03-02 (TEL) STLMLC STLMLC [id number] Co mmon 00:00:00 00:00:00 Spirit - CHI [facility] 2022-02-23 2022-02-23 (TEL) STLMLC STLMLC [id number] Co mmon 00:00:00 00:00:00 Spirit CHI [facility] 2022-02-14 2022-02-14 Office JOSIANE Alston 1.2.840.114 [id number] [facility] 11:00:00 14:24:56 Visit Jose Raul Newman AMBULATOR 350.1.13.21 College Y 0.2.7.2.686 of [id number] Medi aleksandra 825 e 2022-02-10 2022-02-10 Office JOSIANE Dennison 1.2.840.114 [id number] [facility] 15:40:00 16:13:18 Visit Mohan AMBULATOR 350.1.13.21 College Y 0.2.7.2.686 of [id number] Medi aleksandra 375 e 2022-02-01 2022-02-01 Outpatient BCM [facility] [id number] [facility] 12:42:59 16:31:50 Colleg e of Medicin e 2022-01-20 2022-01-20 [facility] [id number] [facility] 10:42:13 13:17:54 Colleg e of Medicin e 2022-01-20 2022-01-20 Outpatient BCM [facility] [id number] [facility] 10:43:15 10:43:15 [employer] 2022-01-18 2022-01-18 Outpatient [facility] [id number] [facility] 10:51:05 11:54:20 [employer] 2022-01-17 2022-01-17 [facility] [id number] Co mmon 00:00:00 00:00:00 VISIT Rm [facility] PT - CHI LEVEL 4 [facility] 2022-01-14 2022-01-14 (TEL) [facility] [id number] Co mmon 00:00:00 00:00:00 [facility] 2022-01-13 2022-01-13 (TEL) STLMLC [facility] [id number] Co mmon 00:00:00 00:00:00 [facility] 2022-01-02 2022-01-02 Refirish Vidal, [facility] [id number] 00:[facility] 00:00:00 [facility] 2021-12-20 2021-12-20 Office JOSIANE Perera [id number] [facility] 13:00:00 14:00:00 Visit Erlinda Newman AMBULATOR [id number] College Y [id number] of [id number] Medi aleksandra 800 e 2021-12-17 2021-12-18 Outpt Diag nullFlavo [facility] [id number] [facility] 14:[facility] 05:59:00 Services r Outpatient 00 l Imaging [facility] 2021-12-17 2021-12-18 Outpt Diag nullFlavo [facility] [id number] Memoria 14:56:00 05:59:00 Services r Outpatient 00 l Imaging [facility] 2021-12-17 2021-12-17 [facility] [id number] 08:56:00 23:59:00 Carlos 00 2021-12-10 2021-12-10 Outpatient [facility] [id number] [facility] 08:00:12 10:11:56 [employer] 2021-12-10 2021-12-10 Office JOSIANE Tinajero [id number] [facility] 09:30:00 10:05:44 Visit Ramyar AMBULATOR [id number] College Y [id number] of [id number] Medi aleksandra 825 e 2021-12-08 2021-12-08 (TEL) STLMLC [facility] [id number] Co mmon 00:00:00 00:00:00 [facility] 2021-12-02 2021-12-02 [facility]ICE [facility] [id number] Co mmon 00:00:00 00:00:00 VISIT [facility] PT - CHI LEVEL 4 [facility] 2021-12-02 2021-12-02 WELCOME TO [facility] [facility] [id number] Common 00:00:00 00:00:00 MEDICARE Spiri t PREV PHY - CHI EXAM [facility] 2021-11-25 2021-11-25 Outpatient MHIE MHIE [id number] [facility] 14:30:00 14:30:00 00 l Adrian 2021-11-25 2021-11-25 Outpatient MHIE MHIE [id number] [facility] 14:30:00 14:30:00 00 l Adrian 2021-11-19 2021-11-19 (TEL) [facility] ST[facility] [id number] Co mmon 00:00:00 00:00:00 [facility] 2021-11-17 2021-11-17 Office JUMA, BCM 1.2.840.114 [id number] [facility] 13:03:04 14:55:25 Visit MOHAN AMBULATOR 350.1.13.21 College Y 0.2.7.2.686 of [id number] [facility] aleksandra 375 e 2021-11-12 2021-11-12 Office Alejandre, BCM 1.2.840.114 [id number] [facility] 16:30:00 17:17:27 Visit Arley AMBULATOR 350.1.13.21 College Y 0.2.7.2.686 of [id number] Medi aleksandra 300 e 2021-11-11 2021-11-11 OFFICE STLC STLC [id number] Co mmon 00:00:00 00:00:00 VISIT Spirit ESTAB PT - CHI LEVEL 4 [facility] 2021-11-09 2021-11-09 (TEL) STLMLC STLMLC [id number] Co mmon 00:00:00 00:00:00 [facility] 2021-11-02 2021-11-02 (TEL) STLMLC STLMLC [id number] Co mmon 00:00:00 00:00:00 [facility] 2021-10-20 2021-10-20 OFFICE STLMLC STLMLC [id number] Co mmon 00:00:00 00:00:00 VISIT EST Spir it PT LEVEL 3 - CHI [facility] 2021-10-19 2021-10-19 Outpatient [facility] [id number] [facility] 11:01:06 12:52:47 David 2021-10-14 2021-10-14 OFFICE STLMLC STLMLC [id number] Co mmon 00:00:00 00:00:00 VISIT EST Spir it PT LEVEL 3 - CHI [facility] 2021-10-13 2021-10-13 (TEL) STLMLC STLMLC [id number] Co mmon 00:00:00 00:00:00 [facility] 2021-10-12 2021-10-12 (TEL) STLMLC STLMLC [id number] Co mmon 00:00:00 00:00:00 [facility] 2021-10-12 2021-10-12 (TEL) STLMLC STLMLC [id number] Co mmon 00:00:00 00:00:00 [facility] 2021-10-12 2021-10-12 OFFICE STLMLC STLMLC [id number] Co mmon 00:00:00 00:00:00 VISIT [facility] ESTAB PT - CHI LEVEL 4 [facility] 2021-10-04 2021-10-04 (TEL) STLMLC STLMLC [id number] Co mmon 00:00:00 00:00:00 [facility] 2021-09-27 2021-09-27 Office JOSIANE Jarrell 1.2.840.114 [id number] [facility] 14:15:00 16:03:36 Visit Mariusz AMBULATOR 350.1.13.21 College Hollis Y 0.2.7.2.686 of [id number] [facility] aleskandra 825 e 2021-09-27 2021-09-27 (TEL) STLMLC STLMLC [id number] Co mmon 00:00:00 00:00:00 [facility] 2021-09-22 2021-09-22 Office JOSIANE White 1.2.840.114 [id number] [facility] 15:30:00 15:45:00 Visit Chuckie AMBULATOR 350.1.13.21 College Y 0.2.7.2.686 of [id number] [facility] 300 e 2021-09-21 2021-09-21 (TEL) STLMLC STLMLC [id number] Co mmon 00:00:00 00:00:00 [facility] 2021-09-16 2021-09-16 (TEL) STLMLC STLMLC [id number] Co mmon 00:00:00 00:00:00 [facility] 2021-09-16 2021-09-16 OFFICE STLMLC STLMLC [id number] Co mmon 00:00:00 00:00:00 VISIT NEW Spir it PT LEVEL 3 - [facility] 2021-09-10 2021-09-10 [facility] [id number] [facility] 12:59:41 23:59:00 [facility] 2021-09-10 2021-09-10 [facility] [id number] 12:59:41 23:59:00 Encounter [facility] 2021-09-03 2021-09-03 [facility] [id number] 00:00:00 00:00:00 Orders [facility] 2021-08-31 2021-08-31 Office JOSIANE DENNISON 1.2.840.114 [id number] [facility] 10:18:03 12:06:43 Visit MOHAN AMBULATOR 350.1.13.21 College Y 0.2.7.2.686 of [id number] Medi aleksandra 375 e 2021-08-30 2021-08-30 [facility] [id number] [facility] 11:22:02 11:22:02 [facility] 2021 2021 OFFICE STLMLC STLMLC [id number] Co mmon 00:00:00 00:00:00 VISIT [facility] PT LEVEL 4 - [facility] 2021-08-18 2021-08-18 Office CINDY, JOSIANE 1.2.840.114 [id number] [facility] 13:58:10 16:01:54 Visit CHUCKIE AMBULATOR 350.1.13.21 College Y 0.2.7.2.686 of [id number] Medi aleksandra 300 e 2021-08-18 2021-08-18 (TEL) STLMLC STLMLC [id number] Co mmon 00:00:00 00:00:00 [facility] 2021-08-15 2021-08-15 Refill Marcy, [facility] [id number] 00:00:00 00:00:00 [facility] 2021-08-12 2021-08-12 OFFICE STLMLC STLMLC [id number] Co mmon 00:00:00 00:00:00 VISIT [facility] PT - CHI LEVEL 4 [facility] 2021-07-27 2021-07-27 Outpatient [facility] [id number] [facility] 09:13:01 09:53:29 [facility] 2021-07-18 2021-07-18 Refill Marcy, [facility] [id number] 00:00:00 00:00:00 [facility] 2021-07-07 2021-07-07 Outpatient NORA PARRISH [facility] SLE [id number] SLE 00:00:00 00:00:00 [facility] 2021-07-05 2021-07-05 Outpatient STLMLC STLMLC [id number] Common 00:00:00 00:00:00 [facility] 2021-07-05 2021-07-05 Outpatient STLMLC STLC [id number] Common 00:00:00 00:00:00 [facility] 2021-07-05 2021-07-05 Outpatient STLMLC STLMLC [id number] Common 00:00:00 00:00:00 [facility] 2021-06-30 2021-06-30 Office CARINE White 1.2.840.114 [id number] [facility] 08:49:23 09:04:23 Visit Chuckie AMBULATOR 350.1.13.21 College Y 0.2.7.2.686 of [id number] Medi aleksandra 300 e 2021-06-24 2021-06-24 Office JOSIANE Dennison 1.2.840.114 [id number] [facility] 14:34:41 16:00:10 Visit Mohan AMBULATOR 350.1.13.21 College Y 0.2.7.2.686 of [id number] Medi aleksandra 375 e 2021-06-15 2021-06-15 Outpatient [facility] [id number] [facility] 12:51:35 12:51:35 [facility] 2021-06-14 2021-06-14 Outpatient JONO [facility] [id number] [facility] 07:55:20 13:28:21 MARIUSZ [facility] 2021-06-14 2021-06-14 Outpatient [facility] [id number] [facility] 07:54:56 10:48:49 [facility] 2021-06-02 2021-06-02 Outpatient NORA PARRISH, [facility] [id number] [facility] 00:00:00 00:00:00 [facility] 2021-06-01 2021-06-01 Office JOSIANE Dennison 1.2.840.114 [id number] [facility] 14:20:18 15:45:02 Visit Mohan AMBULATOR 350.1.13.21 College Y 0.2.7.2.686 of [id number] Medi aleksandra 375 e 2021-05-15 2021-05-15 Outpatient [facility] [id number] [facility] 00:00:00 23:59:00 [facility] 2021-05-13 2021-05-13 Outpatient BCM [facility] [id number] [facility] 07:37:00 23:59:00 [facility] 2021-05-12 2021-05-[address] [facility] [id number] [facility] 00:00:00 00:00:00 2021-05-11 2021-05-[address] [facility] [id number] [facility] 00:00:00 00:00:00 2021-05-04 2021-05-04 Outpatient BCM [facility] [id number] [facility] 00:00:00 23:59:00 [facility] 2021-04-29 2021-04-29 Outpatient BCM [facility] [id number] [facility] 00:00:00 23:59:00 [facility] 2021-04-29 2021-04-29 Outpatient [facility] [id number] SLE 00:00:00 00:00:00 2021-04-27 2021-04-27 Outpatient STLMLC STLC [id number] Common 00:00:00 00:00:00 [facility] 2021-04-08 2021-04-20 Outpatient JOSIANE RUIZ [facility] [id number] [facility] 11:27:25 19:51:25 BASIL [facility] 2021-04-20 2021-04-20 Outpatient STLMLC STLMLC [id number] Common 00:00:00 00:00:00 [facility] 2021-04-14 2021-04-16 Office CARINE White 1.2.840.[id number] [place] [address] 14:55:42 16:49:34 Visit Chuckie AMBULATOR 350.1.13.21 College Y 0.2.7.2.686 of [id number] Medi aleksandra 300 e 2021-04-14 2021-04-16 Office Cindy, CARINE 1.2.840.114 [id number] 14:55:42 16:49:34 Visit Chuckie AMBULATOR 350.1.13.21 Y 0.2.7.2.686 [id number] 300 2021-04-08 2021-04-08 Office JOSIANE Ruiz 1.2.840.[id number] [place] [address] 13:31:23 14:01:23 Visit Basil AMBULATOR 350.1.13.21 College Y 0.2.7.2.686 of [id number] Medi aleksandra 300 e 2021-04-08 2021-04-08 Office JOSIANE Ruiz 1.2.840.114 [id number] 13:31:23 14:01:23 Visit Basil AMBULATOR 350.1.13.21 Y 0.2.7.2.686 [id number] 300 2021-04-08 2021-04-08 Outpatient [facility] [id number] [facility] 00:00:00 00:00:00 [facility] 2021-03-22 2021-03-22 Outpatient KAMI PALACIOS [facility] [id number] [facility] 00:00:00 00:00:00 [place] 2021-03-16 2021-03-16 Outpatient KAMI PALACIOS [facility] [id number] [facility] 00:00:00 00:00:00 [place] 2021-03-05 2021-03-05 Outpatient [facility] [id number] [facility] 08:06:07 13:36:08 [facility] 2021-03-03 2021-03-03 Office JOSIANE White 1.2.840.[id number] [place] [address] 12:05:37 12:20:37 Visit Chuckie AMBULATOR 350.1.13.21 College Y 0.2.7.2.686 of [id number] Medi aleksandra 300 e 2021-03-03 2021-03-03 Office JOSIANE White 1.2.840.114 [id number] 12:05:37 12:20:37 Visit Chuckie AMBULATOR 350.1.13.21 Y 0.2.7.2.686 [id number] 300 2021-02-18 2021-02-18 Outpatient STLMLC STLMLC [id number] Common 00:00:00 00:00:00 [facility] 2021-02-16 2021-02-16 Office JOSIANE Dennison 1.2.840.[id number] [place] [address] 09:21:06 10:13:12 Visit Mohan AMBULATOR 350.1.13.21 College Y 0.2.7.2.686 of [id number] [facility] 375 e 2021-02-16 2021-02-16 Office JOSIANE Dennison 1.2.840.114 [id number] 09:21:06 10:13:12 Visit Mohan AMBULATOR 350.1.13.21 Y 0.2.7.2.686 [id number] [facility] 2021-01-25 2021-01-25 Office JOSIANE Jarrell 1.2.840.114 [id number] [facility] 11:06:09 12:30:03 Visit Mariusz AMBULATOR 350.1.13.21 College Hollis Y 0.2.7.2.686 of [id number] [facility] 825 e 2021-01-25 2021-01-25 Office JOSIANE Jarrell 1.2.840.114 [id number] 11:06:09 12:30:03 Visit Mariusz AMBULATOR 350.1.13.21 Hollis Y 0.2.7.2.686 [id number] [facility] 2021-01-22 2021-01-22 Outpatient [facility] [id number] [facility] 09:09:43 17:09:11 David 2021-01-04 2021-01-04 Outpatient [facility] SLE [id number] SLE 00:00:00 00:00:00 2020-12-07 2020-12-07 Office JOSIANE Jarrell 1.2.840.114 [id number] [facility] 09:22:17 15:25:48 Visit Mariusz AMBULATOR 350.1.13.21 College Hollis Y 0.2.7.2.686 of [id number] [facility] 825 e 2020-12-07 2020-12-07 Office JOSIANE Jarrell 1.2.840.114 [id number] 09:22:17 15:25:48 Visit Mariusz AMBULATOR 350.1.13.21 Hollis Y 0.2.7.2.686 [id number] 2020-12-02 2020-12-02 Office JOSIANE White 1.2.840.[id number] [place] [address] 14:28:34 14:43:34 Visit Chuckie AMBULATOR 350.1.13.21 College Y 0.2.7.2.686 of [id number] [facility] aleksandra 300 e 2020-12-02 2020-12-02 Office JOSIANE White 1.2.840.114 [id number] 14:28:34 14:43:34 Visit Chuckie AMBULATOR 350.1.13.21 Y 0.2.7.2.686 [id number] 300 2020-11-25 2020-11-25 Outpatient STLMLC STLMLC [id number] Common 00:00:00 00:00:00 [facility] 2020-11-16 2020-11-16 Outpatient STLC STLC [id number] Common 00:00:00 00:00:00 [facility] 2020-10-12 2020-10-12 Office CARINE AlvaradoSamir 1.2.840.[id number] [place] [address] 13:52:12 14:22:12 Visit Khai AMBULATOR 350.1.13.21 College Y 0.2.7.2.686 of [id number] [facility] 800 e 2020-10-12 2020-10-12 Office JOSIANE Alvarado 1.2.840.114 [id number] 13:52:12 14:22:12 Visit Khai AMBULATOR 350.1.13.21 Y 0.2.7.2.686 [id number] 800 2020-09-08 2020-09-08 Outpatient ASHLEY VALDIVIASE [facility] [id number] 07:57:00 23:59:00 CARLOS Rigoberto [facility] 2020-08-06 2020-08-06 Office JOSIANE Alvarado 1.2.840.[id number] [place] [address] 14:02:58 14:46:32 Visit Khai AMBULATOR 350.1.13.21 College Y 0.2.7.2.686 of [id number] [facility] aleksandra 800 e 2020-08-06 2020-08-06 Office JOSIANE Alvarado 1.2.840.114 [id number] 14:02:58 14:46:32 Visit Khai AMBULATOR 350.1.13.21 Y 0.2.7.2.686 [id number] 800 2020-07-28 2020-07-28 Outpatient STLMLC STLC [id number] Common 00:00:00 00:00:00 Spirit - [facility] 2020-07-16 2020-07-16 Out[facility] [id number] Common 16:13:00 16:13:00 [facility] 2020-07-14 2020-07-14 Out[facility] [id number] Common 09:30:00 09:30:00 t [facility] 2020-06-01 2020-06-01 Out[facility] [id number] Common 09:00:00 09:00:00 t [facility] 2020-04-23 2020-04-23 Office JOSIANE Dennison 1.2.840.[id number] [place] [address] 11:27:32 11:47:32 Visit Mohan AMBULATOR 350.1.13.21 College Y 0.2.7.2.686 of [id number] [facility] aleksandra 375 e 2020-04-23 2020-04-23 Office JOSIANE Dennison 1.2.840.114 [id number] 11:27:32 11:47:32 Visit Mohan AMBULATOR 350.1.13.21 Y 0.2.7.2.686 [id number] 375 2020-01-22 2020-01-22 Office JOSIANE Steiner 1.2.840.114 [id number] [facility] 09:35:07 10:05:07 Visit Kalen AMBULATOR 350.1.13.21 College Young Y 0.2.7.2.686 of [id number] Medi aleksandra 800 e 2020-01-22 2020-01-22 Office JOSIANE Steiner 1.2.840.114 [id number] 09:35:07 10:05:07 Visit Kalen AMBULATOR 350.1.13.21 Young Y 0.2.7.2.686 [id number] 800 2020-01-22 2020-01-22 Out[facility] [id number] Common 08:07:00 08:07:00 t [facility] Bone [facility] Spiri t [facility] 2020-01-08 2020-01-08 Out[facility] [id number] Common 12:23:00 12:23:00 t [facility] Sp[facility] t [facility] 2019-12-23 2019-12-23 Out[facility] [id number] Common 08:00:00 08:00:00 t [facility] Bone and Spiri t and [facility] 2019-10-10 2019-10-10 Out[facility] [id number] Common 09:37:00 09:37:00 t Bone Bone and Spiri t and [facility] 2019-10-09 2019-10-09 Out[facility] [id number] Common 15:29:00 15:29:00 t [facility] Bone and Spiri t and [facility] 2019-09-09 2019-09-09 Out[facility] [id number] Common 16:12:00 16:12:00 t [facility] Bone and Spiri t [facility] 2019-09-02 2019-09-02 Out[facility] [id number] Common 12:24:00 12:24:00 t Bone Bone and Spiri t and Joint [facility] - [facility] 2019-08-22 2019-08-22 Out[facility] [id number] Common 09:00:00 09:00:00 t [facility] Bone and Sp[facility] t [facility] 2019-08-16 2019-08-16 Office JOSIANE Tuttle 1.2.840.[id number] [place] [address] 12:53:30 13:30:16 Visit Ruth AMBULATOR 350.1.13.21 College Tangela-Kendall Y 0.2.7.2.686 of [id number] [facility] 800 e 2019-08-16 2019-08-16 Office JOSIANE Tuttle 1.2.840.114 [id number] 12:53:30 13:30:16 Visit Ruth AMBULATOR 350.1.13.21 Tangela-Kendall Y 0.2.7.2.686 [id number] 800 2019-07-25 2019-07-25 Outpatient Tila Adornot [id number] Common 10:00:00 10:00:00 t [facility] Bone [facility] Spiri t [facility] - [facility] 2019-07-21 2019-07-21 Outpatient Tila Adornot [id number] Common 20:21:00 20:21:00 t Bone Bone and Spiri t and Joint [facility] - [facility] Results Test Description Test Time Test Comments Results Result Comments Source URINALYSIS, COMPLETE W/REFLEX TO CULTURE 2022-11-04 09:02:08 Test Item Value Reference Range Interpretation Comme nts COLOR UA (test code = 5778-6) YELLOW YELLOW-STRAW CLARITY UA (test code = CLEAR CLEAR 5767-9) SPECIFIC GRAVITY UA (test code 1.005-1.035 = 5811-5) LEUKOCYTE ESTERASE UA (test NEGATIVE NEGATIVE code = 5799-2) NITRITE UA (test code = NEGATIVE NEGATIVE 5802-4) PH UA (test code = 5803-2) 5.0-9.0 PROTEIN UA (test code = NEGATIVE NEGATIVE 05688-8) GLUCOSE UA (test code = NEGATIVE NEGATIVE 5792-7) KETONES UA (test code = NEGATIVE NEGATIVE 5797-6) UROBILINOGEN UA (test code = See_Comment [Automated message] The ) system which ge nerated this result transmit nayana reference range: <=2.0 MG /DL. The reference range was not used to interpret th is result as normal/abnormal . BILIRUBIN UA (test code = NEGATIVE NEGATIVE 5770-3) OCCULT BLOOD UA (test code = NEGATIVE NEGATIVE 70295-8) WBC UA (test code = 02054-2) 0-5 See_Comment [Automated message] The system which ge nerated this result transmit nayana reference range: 0 - 5 /H PF. The reference range was not used to interpret th is result as normal/abnormal . RBC UA (test code = 82912-7) 0-2 See_Comment [Automated message] The system which ge nerated this result transmit nayana reference range: 0 - 5 /H PF. The reference range was not used to interpret th is result as normal/abnormal . EPITHELIAL CELLS (test code = 0-5 See_Comment [Automated message] The 08857-9) system which ge nerated this result transmit nayana reference range: 0 - 5 /H PF. The reference range was not used to interpret th is result as normal/abnormal . BACTERIA (test code = 74981-2) NONE SEEN NONE SEEN HYALINE CASTS (test code = NONE SEEN NONE-TRACE Unless Otherwise Indicated, 21512-5) All Testing Per formed At: Clinical Pathol ogy [facility], [address] [place] [address] 4 Job Developer: Gladys Gutierrez [id number] [facility] [place] [id number] [facility]2022-10-07 15:38:00 Test Item Value Reference Range Interpretation Comments Glucose Lvl (test code = Glucose Lvl) 99 70-99 [facility]2022-10-07 15:38:00 Test Item Value Reference Range Interpretation Comments BUN (test code = BUN) 13 7-22 [facility]2022-10-07 15:38:00 Test Item Value Reference Range Interpretation Comments Creatinine Lvl (test code = Creatinine 0.99 0.50-1.40 Lvl) [facility]2022-10-07 15:38:00 Test Item Value Reference Range Interpretation Comments Sodium Lvl (test code = Sodium Lvl) 141 135-145 [facility]2022-10-07 15:38:00 Test Item Value Reference Range Interpretation Comments Potassium Lvl (test code = Potassium 4.1 3.5-5.1 Lvl) [place] 187932-10-07 15:38:00 Test Item Value Reference Range Interpretation Comments Chloride Lvl (test code = Chloride Lvl) 106 95-109 [place] 187932-10-07 15:38:00 Test Item Value Reference Range Interpretation Comments CO2 (test code = CO2) 27 24-32 [place] 187932-10-07 15:38:00 Test Item Value Reference Range Interpretation Comments Calcium Lvl (test code = Calcium Lvl) 9.2 8.5-10.5 [place] 187932-10-07 15:38:00 Test Item Value Reference Range Interpretation Comments AGAP (test code = AGAP) 12.1 10.0-20.0 [place] 187932-10-07 15:38:00 Test Item Value Reference Range Interpretation Comments eGFR (test code = eGFR) 84 [place] 322392-10-07 15:38:00 Test Item Value Reference Range Interpretation Comments WBC (test code = WBC) 6.8 3.7-10.4 [place] 322392-10-07 15:38:00 Test Item Value Reference Range Interpretation Comments RBC (test code = RBC) 4.39 4.70-6.10 [place] [address]-10-07 15:38:00 Test Item Value Reference Range Interpretation Comments Hgb (test code = Hgb) 13.7 14.0-18.0 [place] [address]-10-07 15:38:00 Test Item Value Reference Range Interpretation Comments Hct (test code = Hct) 42.1 42.0-54.0 [place] [address]-10-07 15:38:00 Test Item Value Reference Range Interpretation Comments MCV (test code = MCV) 96.0 80.0-94.0 [place] [address]-10-07 15:38:00 Test Item Value Reference Range Interpretation Comments MCH (test code = MCH) 31.2 pg 27.0-31.0 [place] 322392-10-07 15:38:00 Test Item Value Reference Range Interpretation Comments MCHC (test code = MCHC) 32.5 32.0-36.0 [place] [address]-10-07 15:38:00 Test Item Value Reference Range Interpretation Comments RDW (test code = RDW) 13.7 11.5-14.5 [facility] 15:38:00 Test Item Value Reference Range Interpretation Comments Platelet (test code = Platelet) 167 133-450 [place] 322392-10-07 15:38:00 Test Item Value Reference Range Interpretation Comments MPV (test code = MPV) 10.4 7.4-10.4 [place] 322392-10-07 15:38:00 Test Item Value Reference Range Interpretation Comments Segs (test code = Segs) 64.6 45.0-75.0 [place] 322392-10-07 15:38:00 Test Item Value Reference Range Interpretation Comments Lymphocytes (test code = Lymphocytes) 25.6 20.0-40.0 [place] 322392-10-07 15:38:00 Test Item Value Reference Range Interpretation Comments Monocytes (test code = Monocytes) 8.5 2.0-12.0 [facility]8466-45-51 15:38:00 Test Item Value Reference Range Interpretation Comments Eosinophils (test code = 0.7 See_Comment [A utomated message] The Eosinophils) system which ge nerated this result tra nsmitted reference range : <=4.0. The reference r maxine was not used to int erpret this result as normal/abnormal . [facility]ynhufVYXHLUQKON3277-11-27 15:38:00 Test Item Value Reference Range Interpretation Comments Basophils (test code = 0.6 See_Comment [Aut omated message] The Basophils) system which ge nerated this result tra nsmitted reference range : <=1.0. The reference r maxine was not used to int erpret this result as normal/abnormal . [facility] CenterDaiffvxJKFBDTINOS8823-84-90 15:38:00 Test Item Value Reference Range Interpretation Comments Neutrophils # (test code = Neutrophils 4.4 1.5-8.1 #) [place] 322392-10-07 15:38:00 Test Item Value Reference Range Interpretation Comments Lymphocytes # (test code = Lymphocytes 1.7 1.0-5.5 #) [place] 322392-10-07 15:38:00 Test Item Value Reference Range Interpretation Comments Monocytes # (test code 0.6 See_Comment [Aut omated message] The = Monocytes #) system which generated this result tra nsmitted reference range : <=0.8. The reference r maxine was not used to int erpret this result as normal/abnormal . [id number] 15:38:00 Test Item Value Reference Range Interpretation Comments Coronavirus (COVID-19) Not Detected AMBREEN (test code = *NA*(08/12/22 10:38 Coronavirus (COVID-19) AM) AMBREEN) [facility]2022-10-07 15:38:00 Test Item Value Reference Range Interpretation Comments Glucose Lvl (test code = Glucose Lvl) 99 70-99 [facility]2022-10-07 15:38:00 Test Item Value Reference Range Interpretation Comments BUN (test code = BUN) 13 05-27 [facility] [facility]2022-10-07 15:38:00 Test Item Value Reference Range Interpretation Comments Creatinine Lvl (test code = Creatinine 0.99 0.50-1.40 Lvl) [facility]2022-10-07 15:38:00 Test Item Value Reference Range Interpretation Comments Sodium Lvl (test code = Sodium Lvl) 141 135-145 [facility]2022-10-07 15:38:00 Test Item Value Reference Range Interpretation Comments Potassium Lvl (test code = Potassium 4.1 3.5-5.1 Lvl) [facility]2022-10-07 15:38:00 Test Item Value Reference Range Interpretation Comments Chloride Lvl (test code = Chloride Lvl) 106 95-109 [facility]2022-10-07 15:38:00 Test Item Value Reference Range Interpretation Comments CO2 (test code = CO2) 27 24-32 [facility]2022-10-07 15:38:00 Test Item Value Reference Range Interpretation Comments Calcium Lvl (test code = Calcium Lvl) 9.2 8.5-10.5 [facility]2022-10-07 15:38:00 Test Item Value Reference Range Interpretation Comments AGAP (test code = AGAP) 12.1 10.0-20.0 [facility]2022-10-07 15:38:00 Test Item Value Reference Range Interpretation Comments eGFR (test code = eGFR) 84 [facility]VICZIOLZCU4787-46-40 15:38:00 Test Item Value Reference Range Interpretation Comments WBC (test code = WBC) 6.8 3.7-10.4 [facility]IkggfcmGMBMHCKMKX6028-09-99 15:38:00 Test Item Value Reference Range Interpretation Comments RBC (test code = RBC) 4.39 4.70-6.10 [facility] CenterFkrpehrFCLEDNRMCJ5083-90-56 15:38:00 Test Item Value Reference Range Interpretation Comments Hgb (test code = Hgb) 13.7 14.0-18.0 [facility] CenterHysimnjPVVFCWJXFD6523-53-35 15:38:00 Test Item Value Reference Range Interpretation Comments Hct (test code = Hct) 42.1 42.0-54.0 [facility] CenterUrswppiAVDAWXMZNU1157-03-93 15:38:00 Test Item Value Reference Range Interpretation Comments MCV (test code = MCV) 96.0 80.0-94.0 [facility] CenterNzcrsorHIGIWAUGTI8163-40-88 15:38:00 Test Item Value Reference Range Interpretation Comments MCH (test code = MCH) 31.2 pg 27.0-31.0 [facility] CenterQmcobtuKGBHFRKELR9248-98-73 15:38:00 Test Item Value Reference Range Interpretation Comments MCHC (test code = MCHC) 32.5 32.0-36.0 [facility] CenterBlmwxziSLACYRKIDB6705-07-93 15:38:00 Test Item Value Reference Range Interpretation Comments RDW (test code = RDW) 13.7 11.5-14.5 [facility] CenterNhqmzzhUZLKJMGHKW3717-87-31 15:38:00 Test Item Value Reference Range Interpretation Comments Platelet (test code = Platelet) 167 133-450 [facility] CenterDrlcefrWJNWPVGLOK8882-71-00 15:38:00 Test Item Value Reference Range Interpretation Comments MPV (test code = MPV) 10.4 7.4-10.4 [place] 322392-10-07 15:38:00 Test Item Value Reference Range Interpretation Comments Segs (test code = Segs) 64.6 45.0-75.0 [facility] CenterSjawqzeVACEFWVEAZ6357-90-58 15:38:00 Test Item Value Reference Range Interpretation Comments Lymphocytes (test code = Lymphocytes) 25.6 20.0-40.0 [place] 322392-10-07 15:38:00 Test Item Value Reference Range Interpretation Comments Monocytes (test code = Monocytes) 8.5 2.0-12.0 [facility] CenterYvhvzsuCWCJVKKNUY8974-27-92 15:38:00 Test Item Value Reference Range Interpretation Comments Eosinophils (test code = 0.7 See_Comment [A utomated message] The Eosinophils) system which ge nerated this result tra nsmitted reference range : <=4.0. The reference r maxine was not used to int erpret this result as normal/abnormal . [facility] CenterTthtrfuVRKAPDZIBZ9258-35-59 15:38:00 Test Item Value Reference Range Interpretation Comments Basophils (test code = 0.6 See_Comment [Aut omated message] The Basophils) system which ge nerated this result tra nsmitted reference range : <=1.0. The reference r maxine was not used to int erpret this result as normal/abnormal . [facility] CenterBnnlczdHPNDDZQKJX8956-24-18 15:38:00 Test Item Value Reference Range Interpretation Comments Neutrophils # (test code = Neutrophils 4.4 1.5-8.1 #) [facility] CenterXhlfnluBOAKFFVTDF8096-54-41 15:38:00 Test Item Value Reference Range Interpretation Comments Lymphocytes # (test code = Lymphocytes 1.7 1.0-5.5 #) [facility] CenterDuegkraTZDVUYRFRP2918-80-84 15:38:00 Test Item Value Reference Range Interpretation Comments Monocytes # (test code 0.6 See_Comment [Aut omated message] The = Monocytes #) system which generated this result tra nsmitted reference range : <=0.8. The reference r maxine was not used to int erpret this result as normal/abnormal . [facility]FzydlqoYJYBAHKCBG9592-19-53 15:38:00 Test Item Value Reference Range Interpretation Comments Coronavirus (COVID-19) Not Detected AMBREEN (test code = *NA*(08/12/22 10:38 Coronavirus (COVID-19) AM) AMBREEN) [facility]2022-10-07 15:38:00 Test Item Value Reference Range Interpretation Comments Glucose Lvl (test code = Glucose Lvl) 99 70-99 [facility]2022-10-07 15:38:00 Test Item Value Reference Range Interpretation Comments BUN (test code = BUN) 05-27 [place] 187932-10-07 15:38:00 Test Item Value Reference Range Interpretation Comments Creatinine Lvl (test code = Creatinine 0.99 0.50-1.40 Lvl) [place] 187932-10-07 15:38:00 Test Item Value Reference Range Interpretation Comments Sodium Lvl (test code = Sodium Lvl) 141 135-145 [place] 187932-10-07 15:38:00 Test Item Value Reference Range Interpretation Comments Potassium Lvl (test code = Potassium 4.1 3.5-5.1 Lvl) [place] 187932-10-07 15:38:00 Test Item Value Reference Range Interpretation Comments Chloride Lvl (test code = Chloride Lvl) 106 95-109 [place] 187932-10-07 15:38:00 Test Item Value Reference Range Interpretation Comments CO2 (test code = CO2) 27 24-32 [place] 187932-10-07 15:38:00 Test Item Value Reference Range Interpretation Comments Calcium Lvl (test code = Calcium Lvl) 9.2 8.5-10.5 [place] 187932-10-07 15:38:00 Test Item Value Reference Range Interpretation Comments AGAP (test code = AGAP) 12.1 10.0-20.0 [place] 187932-10-07 15:38:00 Test Item Value Reference Range Interpretation Comments eGFR (test code = eGFR) 84 [place] 322392-10-07 15:38:00 Test Item Value Reference Range Interpretation Comments WBC (test code = WBC) 6.8 3.7-10.4 [place] [address]-10-07 15:38:00 Test Item Value Reference Range Interpretation Comments RBC (test code = RBC) 4.39 4.70-6.10 [place] [address]-10-07 15:38:00 Test Item Value Reference Range Interpretation Comments Hgb (test code = Hgb) 13.7 14.0-18.0 [place] [address]-10-07 15:38:00 Test Item Value Reference Range Interpretation Comments Hct (test code = Hct) 42.1 42.0-54.0 [place] [address]-10-07 15:38:00 Test Item Value Reference Range Interpretation Comments MCV (test code = MCV) 96.0 80.0-94.0 [place] [address]-10-07 15:38:00 Test Item Value Reference Range Interpretation Comments MCH (test code = MCH) 31.2 pg 27.0-31.0 [facility] CenterLsslhbvGTZVVDVALQ5088-76-93 15:38:00 Test Item Value Reference Range Interpretation Comments MCHC (test code = MCHC) 32.5 32.0-36.0 [facility] CenterMrrfgseTGZKERTFTW9923-96-17 15:38:00 Test Item Value Reference Range Interpretation Comments RDW (test code = RDW) 13.7 11.5-14.5 [facility] CenterQdyvjngAPEGKUKYEX1458-71-35 15:38:00 Test Item Value Reference Range Interpretation Comments Platelet (test code = Platelet) 167 133-450 [facility] CenterNcpaalnRMWIBGRCMW0768-38-84 15:38:00 Test Item Value Reference Range Interpretation Comments MPV (test code = MPV) 10.4 7.4-10.4 [facility] CenterOgjydieLAULUGBUTP2053-25-86 15:38:00 Test Item Value Reference Range Interpretation Comments Segs (test code = Segs) 64.6 45.0-75.0 [facility] CenterJhhxlqcSBTABVAGBI9922-09-56 15:38:00 Test Item Value Reference Range Interpretation Comments Lymphocytes (test code = Lymphocytes) 25.6 20.0-40.0 [facility] CenterDoitoymDISXYUFYEU6917-38-93 15:38:00 Test Item Value Reference Range Interpretation Comments Monocytes (test code = Monocytes) 8.5 2.0-12.0 [facility] CenterWgcpkhfQPZKOICFZR0399-87-09 15:38:00 Test Item Value Reference Range Interpretation Comments Eosinophils (test code = 0.7 See_Comment [A utomated message] The Eosinophils) system which ge nerated this result tra nsmitted reference range : <=4.0. The reference r maxine was not used to int erpret this result as normal/abnormal . [facility] CenterClpdamoGCCSCOTFRY2454-32-07 15:38:00 Test Item Value Reference Range Interpretation Comments Basophils (test code = 0.6 See_Comment [Aut omated message] The Basophils) system which ge nerated this result tra nsmitted reference range : <=1.0. The reference r maxine was not used to int erpret this result as normal/abnormal . [facility] CenterKtubrbiAQSIOTDCTX3721-48-76 15:38:00 Test Item Value Reference Range Interpretation Comments Neutrophils # (test code = Neutrophils 4.4 1.5-8.1 #) [place] 322392-10-07 15:38:00 Test Item Value Reference Range Interpretation Comments Lymphocytes # (test code = Lymphocytes 1.7 1.0-5.5 #) [place] 322392-10-07 15:38:00 Test Item Value Reference Range Interpretation Comments Monocytes # (test code 0.6 See_Comment [Aut omated message] The = Monocytes #) system which generated this result tra nsmitted reference range : <=0.8. The reference r maxine was not used to int erpret this result as normal/abnormal . [facility] CenterDkzhvedSOUJHYBLLI8517-60-88 15:38:00 Test Item Value Reference Range Interpretation Comments Coronavirus (COVID-19) Not Detected AMBREEN (test code = *NA*(08/12/22 10:38 Coronavirus (COVID-19) AM) AMBREEN) [facility]2022-10-07 15:38:00 Test Item Value Reference Range Interpretation Comments Glucose Lvl (test code = Glucose Lvl) 99 70-99 [facility]2022-10-07 15:38:00 Test Item Value Reference Range Interpretation Comments BUN (test code = BUN) 13 7-22 [facility]2022-10-07 15:38:00 Test Item Value Reference Range Interpretation Comments Creatinine Lvl (test code = Creatinine 0.99 0.50-1.40 Lvl) [facility]2022-10-07 15:38:00 Test Item Value Reference Range Interpretation Comments Sodium Lvl (test code = Sodium Lvl) 141 135-145 [facility]2022-10-07 15:38:00 Test Item Value Reference Range Interpretation Comments Potassium Lvl (test code = Potassium 4.1 3.5-5.1 Lvl) [place] 187932-10-07 15:38:00 Test Item Value Reference Range Interpretation Comments Chloride Lvl (test code = Chloride Lvl) 106 95-109 [place] 187932-10-07 15:38:00 Test Item Value Reference Range Interpretation Comments CO2 (test code = CO2) 27 24-32 [place] 187932-10-07 15:38:00 Test Item Value Reference Range Interpretation Comments Calcium Lvl (test code = Calcium Lvl) 9.2 8.5-10.5 [facility]2022-10-07 15:38:00 Test Item Value Reference Range Interpretation Comments AGAP (test code = AGAP) 12.1 10.0-20.0 [facility]2022-10-07 15:38:00 Test Item Value Reference Range Interpretation Comments eGFR (test code = eGFR) 84 [facility] CenterCfgcvnkCRAPZEBZME6786-47-88 15:38:00 Test Item Value Reference Range Interpretation Comments WBC (test code = WBC) 6.8 3.7-10.4 [facility] CenterPlmjhsbIWWCXNZJQQ9760-53-50 15:38:00 Test Item Value Reference Range Interpretation Comments RBC (test code = RBC) 4.39 4.70-6.10 [facility] CenterZjfqdnoEKVSJZMRQR3972-18-67 15:38:00 Test Item Value Reference Range Interpretation Comments Hgb (test code = Hgb) 13.7 14.0-18.0 [facility] CenterNjailswAGFXZYOGUN9536-28-36 15:38:00 Test Item Value Reference Range Interpretation Comments Hct (test code = Hct) 42.1 42.0-54.0 [facility] CenterYcmjflfYUSGCMUHBL6852-09-90 15:38:00 Test Item Value Reference Range Interpretation Comments MCV (test code = MCV) 96.0 80.0-94.0 [facility] CenterCteuulhISUCIPIJNL7280-26-73 15:38:00 Test Item Value Reference Range Interpretation Comments MCH (test code = MCH) 31.2 pg 27.0-31.0 [facility] CenterGsdsaxhFDCIMPNNJF9585-66-58 15:38:00 Test Item Value Reference Range Interpretation Comments MCHC (test code = MCHC) 32.5 32.0-36.0 [place] 322392-10-07 15:38:00 Test Item Value Reference Range Interpretation Comments RDW (test code = RDW) 13.7 11.5-14.5 [facility] CenterShxxqvsJVEDPHKBHK5604-36-25 15:38:00 Test Item Value Reference Range Interpretation Comments Platelet (test code = Platelet) 167 133-450 [facility] CenterSsaffiyMOEGAHEALQ5894-43-85 15:38:00 Test Item Value Reference Range Interpretation Comments MPV (test code = MPV) 10.4 7.4-10.4 [place] [address]-10-07 15:38:00 Test Item Value Reference Range Interpretation Comments Segs (test code = Segs) 64.6 45.0-75.0 [place] 322392-10-07 15:38:00 Test Item Value Reference Range Interpretation Comments Lymphocytes (test code = Lymphocytes) 25.6 20.0-40.0 [place] [address]-10-07 15:38:00 Test Item Value Reference Range Interpretation Comments Monocytes (test code = Monocytes) 8.5 2.0-12.0 [place] 322392-10-07 15:38:00 Test Item Value Reference Range Interpretation Comments Eosinophils (test code = 0.7 See_Comment [A utomated message] The Eosinophils) system which ge nerated this result tra nsmitted reference range : <=4.0. The reference r maxine was not used to int erpret this result as normal/abnormal . [place] [address]-10-07 15:38:00 Test Item Value Reference Range Interpretation Comments Basophils (test code = 0.6 See_Comment [Aut omated message] The Basophils) system which ge nerated this result tra nsmitted reference range : <=1.0. The reference r maxine was not used to int erpret this result as normal/abnormal . [facility] CenterZcpapeqMTZZZCURLZ1770-13-91 15:38:00 Test Item Value Reference Range Interpretation Comments Neutrophils # (test code = Neutrophils 4.4 1.5-8.1 #) [place] 322392-10-07 15:38:00 Test Item Value Reference Range Interpretation Comments Lymphocytes # (test code = Lymphocytes 1.7 1.0-5.5 #) [place] [address]-10-07 15:38:00 Test Item Value Reference Range Interpretation Comments Monocytes # (test code 0.6 See_Comment [Aut omated message] The = Monocytes #) system which generated this result tra nsmitted reference range : <=0.8. The reference r maxine was not used to int erpret this result as normal/abnormal . [place] 994232-10-07 15:38:00 Test Item Value Reference Range Interpretation Comments Coronavirus (COVID-19) Not Detected AMBREEN (test code = *NA*(08/12/22 10:38 Coronavirus (COVID-19) AM) AMBREEN) [facility]2022-10-07 15:38:00 Test Item Value Reference Range Interpretation Comments Glucose Lvl (test code = Glucose Lvl) 99 70-99 [place] 187932-10-07 15:38:00 Test Item Value Reference Range Interpretation Comments BUN (test code = BUN) 13 7-22 [place] 187932-10-07 15:38:00 Test Item Value Reference Range Interpretation Comments Creatinine Lvl (test code = Creatinine 0.99 0.50-1.40 Lvl) [place] 187932-10-07 15:38:00 Test Item Value Reference Range Interpretation Comments Sodium Lvl (test code = Sodium Lvl) 141 135-145 [place] 187932-10-07 15:38:00 Test Item Value Reference Range Interpretation Comments Potassium Lvl (test code = Potassium 4.1 3.5-5.1 Lvl) [place] 187932-10-07 15:38:00 Test Item Value Reference Range Interpretation Comments Chloride Lvl (test code = Chloride Lvl) 106 95-109 [place] 187932-10-07 15:38:00 Test Item Value Reference Range Interpretation Comments CO2 (test code = CO2) 27 24-32 [place] 187932-10-07 15:38:00 Test Item Value Reference Range Interpretation Comments Calcium Lvl (test code = Calcium Lvl) 9.2 8.5-10.5 [place] 187932-10-07 15:38:00 Test Item Value Reference Range Interpretation Comments AGAP (test code = AGAP) 12.1 10.0-20.0 [place] 187932-10-07 15:38:00 Test Item Value Reference Range Interpretation Comments eGFR (test code = eGFR) 84 [place] 322392-10-07 15:38:00 Test Item Value Reference Range Interpretation Comments WBC (test code = WBC) 6.8 3.7-10.4 [place] 322392-10-07 15:38:00 Test Item Value Reference Range Interpretation Comments RBC (test code = RBC) 4.39 4.70-6.10 [place] 322392-10-07 15:38:00 Test Item Value Reference Range Interpretation Comments Hgb (test code = Hgb) 13.7 14.0-18.0 [facility] CenterKzwdqxrCGBDITMKQT0517-29-42 15:38:00 Test Item Value Reference Range Interpretation Comments Hct (test code = Hct) 42.1 42.0-54.0 [facility] CenterXosdqeyORBXFRNSCC6362-39-25 15:38:00 Test Item Value Reference Range Interpretation Comments MCV (test code = MCV) 96.0 80.0-94.0 [facility] CenterXhwkmiqKJYAAJPGAJ2361-76-18 15:38:00 Test Item Value Reference Range Interpretation Comments MCH (test code = MCH) 31.2 pg 27.0-31.0 [facility] CenterQbojyntDVLOPXCPRY0218-17-40 15:38:00 Test Item Value Reference Range Interpretation Comments MCHC (test code = MCHC) 32.5 32.0-36.0 [facility] CenterRsvyuxjHGWBMJINYR5842-58-95 15:38:00 Test Item Value Reference Range Interpretation Comments RDW (test code = RDW) 13.7 11.5-14.5 [facility] CenterLlhvakwJEHBKHYJRT9174-72-20 15:38:00 Test Item Value Reference Range Interpretation Comments Platelet (test code = Platelet) 167 133-450 [facility] CenterRwmewqrORTMODXBNX2873-07-01 15:38:00 Test Item Value Reference Range Interpretation Comments MPV (test code = MPV) 10.4 7.4-10.4 [place] 322392-10-07 15:38:00 Test Item Value Reference Range Interpretation Comments Segs (test code = Segs) 64.6 45.0-75.0 [place] 322392-10-07 15:38:00 Test Item Value Reference Range Interpretation Comments Lymphocytes (test code = Lymphocytes) 25.6 20.0-40.0 [place] [address]-10-07 15:38:00 Test Item Value Reference Range Interpretation Comments Monocytes (test code = Monocytes) 8.5 2.0-12.0 [place] [address]-10-07 15:38:00 Test Item Value Reference Range Interpretation Comments Eosinophils (test code = 0.7 See_Comment [A utomated message] The Eosinophils) system which ge nerated this result tra nsmitted reference range : <=4.0. The reference r maxine was not used to int erpret this result as normal/abnormal . [facility] CenterMnpehpaEJTEVTTWUC4439-58-42 15:38:00 Test Item Value Reference Range Interpretation Comments Basophils (test code = 0.6 See_Comment [Aut omated message] The Basophils) system which ge nerated this result tra nsmitted reference range : <=1.0. The reference r maxine was not used to int erpret this result as normal/abnormal . [facility] CenterJkozrbnIMWZILJNLH6974-87-67 15:38:00 Test Item Value Reference Range Interpretation Comments Neutrophils # (test code = Neutrophils 4.4 1.5-8.1 #) [facility] CenterIavrsdvOGMPIJHOYK7256-86-73 15:38:00 Test Item Value Reference Range Interpretation Comments Lymphocytes # (test code = Lymphocytes 1.7 1.0-5.5 #) [facility] CenterKazagdxREHWTHPYIJ0792-13-72 15:38:00 Test Item Value Reference Range Interpretation Comments Monocytes # (test code 0.6 See_Comment [Aut omated message] The = Monocytes #) system which generated this result tra nsmitted reference range : <=0.8. The reference r maxine was not used to int erpret this result as normal/abnormal . [facility] CenterFecrfxlZERPWYJHZN1669-18-31 15:38:00 Test Item Value Reference Range Interpretation Comments Coronavirus (COVID-19) Not Detected AMBREEN (test code = *NA*(08/12/22 10:38 Coronavirus (COVID-19) AM) AMBREEN) [facility]2022-10-07 15:38:00 Test Item Value Reference Range Interpretation Comments Glucose Lvl (test code = Glucose Lvl) 99 70-99 [facility]2022-10-07 15:38:00 Test Item Value Reference Range Interpretation Comments BUN (test code = BUN) 05-27 [facility]2022-10-07 15:38:00 Test Item Value Reference Range Interpretation Comments Creatinine Lvl (test code = Creatinine 0.99 0.50-1.40 Lvl) [facility]2022-10-07 15:38:00 Test Item Value Reference Range Interpretation Comments Sodium Lvl (test code = Sodium Lvl) 141 135-145 [facility]2022-10-07 15:38:00 Test Item Value Reference Range Interpretation Comments Potassium Lvl (test code = Potassium 4.1 3.5-5.1 Lvl) [place] 187932-10-07 15:38:00 Test Item Value Reference Range Interpretation Comments Chloride Lvl (test code = Chloride Lvl) 106 95-109 [place] 187932-10-07 15:38:00 Test Item Value Reference Range Interpretation Comments CO2 (test code = CO2) 27 24-32 [place] 187932-10-07 15:38:00 Test Item Value Reference Range Interpretation Comments Calcium Lvl (test code = Calcium Lvl) 9.2 8.5-10.5 [place] 187932-10-07 15:38:00 Test Item Value Reference Range Interpretation Comments AGAP (test code = AGAP) 12.1 10.0-20.0 [place] 187932-10-07 15:38:00 Test Item Value Reference Range Interpretation Comments eGFR (test code = eGFR) 84 [place] [address]-10-07 15:38:00 Test Item Value Reference Range Interpretation Comments WBC (test code = WBC) 6.8 3.7-10.4 [place] [address]-10-07 15:38:00 Test Item Value Reference Range Interpretation Comments RBC (test code = RBC) 4.39 4.70-6.10 [place] [address]-10-07 15:38:00 Test Item Value Reference Range Interpretation Comments Hgb (test code = Hgb) 13.7 14.0-18.0 [place] 187932-10-07 15:38:00 Test Item Value Reference Range Interpretation Comments Glucose Lvl (test code = Glucose Lvl) 99 70-99 [place] 187932-10-07 15:38:00 Test Item Value Reference Range Interpretation Comments BUN (test code = BUN) 13 7-22 [place] [address]-10-07 15:38:00 Test Item Value Reference Range Interpretation Comments Creatinine Lvl (test code = Creatinine 0.99 0.50-1.40 Lvl) [place] 187932-10-07 15:38:00 Test Item Value Reference Range Interpretation Comments Sodium Lvl (test code = Sodium Lvl) 141 135-145 [place] 187932-10-07 15:38:00 Test Item Value Reference Range Interpretation Comments Potassium Lvl (test code = Potassium 4.1 3.5-5.1 Lvl) [place] 187932-10-07 15:38:00 Test Item Value Reference Range Interpretation Comments Chloride Lvl (test code = Chloride Lvl) 106 95-109 [place] 187932-10-07 15:38:00 Test Item Value Reference Range Interpretation Comments CO2 (test code = CO2) 27 24-32 [place] 187932-10-07 15:38:00 Test Item Value Reference Range Interpretation Comments Calcium Lvl (test code = Calcium Lvl) 9.2 8.5-10.5 [place] 187932-10-07 15:38:00 Test Item Value Reference Range Interpretation Comments AGAP (test code = AGAP) 12.1 10.0-20.0 [place] 187932-10-07 15:38:00 Test Item Value Reference Range Interpretation Comments eGFR (test code = eGFR) 84 [place] 322392-10-07 15:38:00 Test Item Value Reference Range Interpretation Comments Hct (test code = Hct) 42.1 42.0-54.0 [place] [address]-10-07 15:38:00 Test Item Value Reference Range Interpretation Comments WBC (test code = WBC) 6.8 3.7-10.4 [place] [address]-10-07 15:38:00 Test Item Value Reference Range Interpretation Comments RBC (test code = RBC) 4.39 4.70-6.10 [place] [address]-10-07 15:38:00 Test Item Value Reference Range Interpretation Comments Hgb (test code = Hgb) 13.7 14.0-18.0 [place] [address]-10-07 15:38:00 Test Item Value Reference Range Interpretation Comments Hct (test code = Hct) 42.1 42.0-54.0 [place] [address]-10-07 15:38:00 Test Item Value Reference Range Interpretation Comments MCV (test code = MCV) 96.0 80.0-94.0 [place] [address]-10-07 15:38:00 Test Item Value Reference Range Interpretation Comments MCH (test code = MCH) 31.2 pg 27.0-31.0 [place] [address]-10-07 15:38:00 Test Item Value Reference Range Interpretation Comments MCHC (test code = MCHC) 32.5 32.0-36.0 [facility] CenterRjyvpjcSGZAWJMWHS9855-73-71 15:38:00 Test Item Value Reference Range Interpretation Comments RDW (test code = RDW) 13.7 11.5-14.5 [facility] CenterFnbhfpiICMQKCZSHU4665-02-85 15:38:00 Test Item Value Reference Range Interpretation Comments Platelet (test code = Platelet) 167 133-450 [facility]EmdavywSHBYXFDURO5738-83-73 15:38:00 Test Item Value Reference Range Interpretation Comments MPV (test code = MPV) 10.4 7.4-10.4 [facility] CenterFlccxfyUMWQMUVEOH1118-22-76 15:38:00 Test Item Value Reference Range Interpretation Comments MCV (test code = MCV) 96.0 80.0-94.0 [facility] CenterHniinysYQVIQQOOTF5535-80-28 15:38:00 Test Item Value Reference Range Interpretation Comments Segs (test code = Segs) 64.6 45.0-75.0 [facility] CenterKavrkdqNDKMIGTPXP5425-03-04 15:38:00 Test Item Value Reference Range Interpretation Comments Lymphocytes (test code = Lymphocytes) 25.6 20.0-40.0 [facility] CenterTxgiewqNFLCKTMTUK2799-46-02 15:38:00 Test Item Value Reference Range Interpretation Comments Monocytes (test code = Monocytes) 8.5 2.0-12.0 [facility] CenterSmudngfWNBGVZLRTL5650-75-76 15:38:00 Test Item Value Reference Range Interpretation Comments Eosinophils (test code = 0.7 See_Comment [A utomated message] The Eosinophils) system which ge nerated this result tra nsmitted reference range : <=4.0. The reference r maxine was not used to int erpret this result as normal/abnormal . [facility] CenterIsibxvbCYYPWIAPJC6285-98-73 15:38:00 Test Item Value Reference Range Interpretation Comments Basophils (test code = 0.6 See_Comment [Aut omated message] The Basophils) system which ge nerated this result tra nsmitted reference range : <=1.0. The reference r maxine was not used to int erpret this result as normal/abnormal . [facility] CenterAbovwmkBISYIMAYZM0646-88-70 15:38:00 Test Item Value Reference Range Interpretation Comments Neutrophils # (test code = Neutrophils 4.4 1.5-8.1 #) [facility] CenterKozpigqTCOEGTNHYR5989-18-66 15:38:00 Test Item Value Reference Range Interpretation Comments Lymphocytes # (test code = Lymphocytes 1.7 1.0-5.5 #) [facility] CenterRpvzjmiSWWPGEZMAT9915-48-75 15:38:00 Test Item Value Reference Range Interpretation Comments Monocytes # (test code 0.6 See_Comment [Aut omated message] The = Monocytes #) system which generated this result tra nsmitted reference range : <=0.8. The reference r maxine was not used to int erpret this result as normal/abnormal . [facility] CenterUgipoplRIOKURYVEE9858-78-06 15:38:00 Test Item Value Reference Range Interpretation Comments Coronavirus (COVID-19) Not Detected AMBREEN (test code = *NA*(08/12/22 10:38 Coronavirus (COVID-19) AM) AMBREEN) [facility] CenterWnfigtyUWQFDEBEBB0457-07-48 15:38:00 Test Item Value Reference Range Interpretation Comments MCH (test code = MCH) 31.2 pg 27.0-31.0 [facility] CenterNrmniarZMNMJSXNDZ6440-62-48 15:38:00 Test Item Value Reference Range Interpretation Comments MCHC (test code = MCHC) 32.5 32.0-36.0 [facility] CenterSsmdfikCRMZXXDLQU0504-68-96 15:38:00 Test Item Value Reference Range Interpretation Comments RDW (test code = RDW) 13.7 11.5-14.5 [facility] CenterTxwvdlyHXSHIWZXHZ2161-24-06 15:38:00 Test Item Value Reference Range Interpretation Comments Platelet (test code = Platelet) 167 133-450 [facility] CenterWxjiaioHSWGGHGWQV2515-44-33 15:38:00 Test Item Value Reference Range Interpretation Comments MPV (test code = MPV) 10.4 7.4-10.4 [place] 322392-10-07 15:38:00 Test Item Value Reference Range Interpretation Comments Segs (test code = Segs) 64.6 45.0-75.0 [place] 322392-10-07 15:38:00 Test Item Value Reference Range Interpretation Comments Lymphocytes (test code = Lymphocytes) 25.6 20.0-40.0 [place] 322392-10-07 15:38:00 Test Item Value Reference Range Interpretation Comments Monocytes (test code = Monocytes) 8.5 2.0-12.0 [facility] CenterDlacbziNQCSYHTWPM4354-49-24 15:38:00 Test Item Value Reference Range Interpretation Comments Eosinophils (test code = 0.7 See_Comment [A utomated message] The Eosinophils) system which ge nerated this result tra nsmitted reference range : <=4.0. The reference r maxine was not used to int erpret this result as normal/abnormal . [facility] CenterTrfizwkSKBYJWBVGE1239-32-73 15:38:00 Test Item Value Reference Range Interpretation Comments Basophils (test code = 0.6 See_Comment [Aut omated message] The Basophils) system which ge nerated this result tra nsmitted reference range : <=1.0. The reference r maxine was not used to int erpret this result as normal/abnormal . [facility] CenterAbliydnZIKRCXYVOE0768-28-24 15:38:00 Test Item Value Reference Range Interpretation Comments Neutrophils # (test code = Neutrophils 4.4 1.5-8.1 #) [facility] CenterGdfiepaIVJBOYUUXS6806-99-72 15:38:00 Test Item Value Reference Range Interpretation Comments Lymphocytes # (test code = Lymphocytes 1.7 1.0-5.5 #) [facility] CenterTurorydOOQJLXEIBM8827-13-74 15:38:00 Test Item Value Reference Range Interpretation Comments Monocytes # (test code 0.6 See_Comment [Aut omated message] The = Monocytes #) system which generated this result tra nsmitted reference range : <=0.8. The reference r maxine was not used to int erpret this result as normal/abnormal . [facility] CenterCvxmenxZMENDWKMEB0671-10-50 15:38:00 Test Item Value Reference Range Interpretation Comments Coronavirus (COVID-19) Not Detected AMBREEN (test code = *NA*(08/12/22 10:38 Coronavirus (COVID-19) AM) AMBREEN) [facility]2022-10-07 15:38:00 Test Item Value Reference Range Interpretation Comments Glucose Lvl (test code = Glucose Lvl) 99 70-99 [facility]2022-10-07 15:38:00 Test Item Value Reference Range Interpretation Comments BUN (test code = BUN) 13 05-27 [facility] CenterTeaMobi EMBDY0072-48-23 15:38:00 Test Item Value Reference Range Interpretation Comments Creatinine Lvl (test code = Creatinine 0.99 0.50-1.40 Lvl) [place] 187932-10-07 15:38:00 Test Item Value Reference Range Interpretation Comments Sodium Lvl (test code = Sodium Lvl) 141 135-145 [place] 187932-10-07 15:38:00 Test Item Value Reference Range Interpretation Comments Potassium Lvl (test code = Potassium 4.1 3.5-5.1 Lvl) [place] 187932-10-07 15:38:00 Test Item Value Reference Range Interpretation Comments Chloride Lvl (test code = Chloride Lvl) 106 95-109 [place] 187932-10-07 15:38:00 Test Item Value Reference Range Interpretation Comments CO2 (test code = CO2) 27 24-32 [place] 187932-10-07 15:38:00 Test Item Value Reference Range Interpretation Comments Calcium Lvl (test code = Calcium Lvl) 9.2 8.5-10.5 [place] 187932-10-07 15:38:00 Test Item Value Reference Range Interpretation Comments AGAP (test code = AGAP) 12.1 10.0-20.0 [place] 187932-10-07 15:38:00 Test Item Value Reference Range Interpretation Comments eGFR (test code = eGFR) 84 [facility] CenterYqdxmrgHDFNUYWPJU6085-67-81 15:38:00 Test Item Value Reference Range Interpretation Comments WBC (test code = WBC) 6.8 3.7-10.4 [place] 322392-10-07 15:38:00 Test Item Value Reference Range Interpretation Comments RBC (test code = RBC) 4.39 4.70-6.10 [place] [address]-10-07 15:38:00 Test Item Value Reference Range Interpretation Comments Hgb (test code = Hgb) 13.7 14.0-18.0 [place] [address]-10-07 15:38:00 Test Item Value Reference Range Interpretation Comments Hct (test code = Hct) 42.1 42.0-54.0 [place] [address]-10-07 15:38:00 Test Item Value Reference Range Interpretation Comments MCV (test code = MCV) 96.0 80.0-94.0 [place] [address]-10-07 15:38:00 Test Item Value Reference Range Interpretation Comments MCH (test code = MCH) 31.2 pg 27.0-31.0 [place] [address]-10-07 15:38:00 Test Item Value Reference Range Interpretation Comments MCHC (test code = MCHC) 32.5 32.0-36.0 [place] 322392-10-07 15:38:00 Test Item Value Reference Range Interpretation Comments RDW (test code = RDW) 13.7 11.5-14.5 [place] [address]-10-07 15:38:00 Test Item Value Reference Range Interpretation Comments Platelet (test code = Platelet) 167 133-450 [place] 322392-10-07 15:38:00 Test Item Value Reference Range Interpretation Comments MPV (test code = MPV) 10.4 7.4-10.4 [place] 322392-10-07 15:38:00 Test Item Value Reference Range Interpretation Comments Segs (test code = Segs) 64.6 45.0-75.0 [place] [address]-10-07 15:38:00 Test Item Value Reference Range Interpretation Comments Lymphocytes (test code = Lymphocytes) 25.6 20.0-40.0 [place] 322392-10-07 15:38:00 Test Item Value Reference Range Interpretation Comments Monocytes (test code = Monocytes) 8.5 2.0-12.0 [place] 322392-10-07 15:38:00 Test Item Value Reference Range Interpretation Comments Eosinophils (test code = 0.7 See_Comment [A utomated message] The Eosinophils) system which ge nerated this result tra nsmitted reference range : <=4.0. The reference r maxine was not used to int erpret this result as normal/abnormal . [place] 322392-10-07 15:38:00 Test Item Value Reference Range Interpretation Comments Basophils (test code = 0.6 See_Comment [Aut omated message] The Basophils) system which ge nerated this result tra nsmitted reference range : <=1.0. The reference r maxine was not used to int erpret this result as normal/abnormal . [place] 322392-10-07 15:38:00 Test Item Value Reference Range Interpretation Comments Neutrophils # (test code = Neutrophils 4.4 1.5-8.1 #) [facility] CenterJnfvmhcMRQYVNDQQI4306-75-48 15:38:00 Test Item Value Reference Range Interpretation Comments Lymphocytes # (test code = Lymphocytes 1.7 1.0-5.5 #) [facility] CenterLbukawtVEORAYAIFD9389-67-08 15:38:00 Test Item Value Reference Range Interpretation Comments Monocytes # (test code 0.6 See_Comment [Aut omated message] The = Monocytes #) system which generated this result tra nsmitted reference range : <=0.8. The reference r maxine was not used to int erpret this result as normal/abnormal . [facility] CenterDqvmsxcRHVKHFOGVP6400-23-43 15:38:00 Test Item Value Reference Range Interpretation Comments Coronavirus (COVID-19) Not Detected AMBREEN (test code = *NA*(08/12/22 10:38 Coronavirus (COVID-19) AM) AMBREEN) [facility]2022-10-07 15:38:00 Test Item Value Reference Range Interpretation Comments Glucose Lvl (test code = Glucose Lvl) 99 70-99 [facility]2022-10-07 15:38:00 Test Item Value Reference Range Interpretation Comments BUN (test code = BUN) 13 7-22 [facility]2022-10-07 15:38:00 Test Item Value Reference Range Interpretation Comments Creatinine Lvl (test code = Creatinine 0.99 0.50-1.40 Lvl) [facility]2022-10-07 15:38:00 Test Item Value Reference Range Interpretation Comments Sodium Lvl (test code = Sodium Lvl) 141 135-145 [facility]2022-10-07 15:38:00 Test Item Value Reference Range Interpretation Comments Potassium Lvl (test code = Potassium 4.1 3.5-5.1 Lvl) [facility]2022-10-07 15:38:00 Test Item Value Reference Range Interpretation Comments Chloride Lvl (test code = Chloride Lvl) 106 95-109 [facility]2022-10-07 15:38:00 Test Item Value Reference Range Interpretation Comments CO2 (test code = CO2) 27 24-32 [place] 187932-10-07 15:38:00 Test Item Value Reference Range Interpretation Comments Calcium Lvl (test code = Calcium Lvl) 9.2 8.5-10.5 [facility]2022-10-07 15:38:00 Test Item Value Reference Range Interpretation Comments AGAP (test code = AGAP) 12.1 10.0-20.0 [facility]2022-10-07 15:38:00 Test Item Value Reference Range Interpretation Comments eGFR (test code = eGFR) 84 [facility] CenterMmvebrfFOIRXXKFIL4588-13-56 15:38:00 Test Item Value Reference Range Interpretation Comments WBC (test code = WBC) 6.8 3.7-10.4 [place] 322392-10-07 15:38:00 Test Item Value Reference Range Interpretation Comments RBC (test code = RBC) 4.39 4.70-6.10 [facility] CenterTlpjbukIXKGOBUCEH8972-19-23 15:38:00 Test Item Value Reference Range Interpretation Comments Hgb (test code = Hgb) 13.7 14.0-18.0 [place] 322392-10-07 15:38:00 Test Item Value Reference Range Interpretation Comments Hct (test code = Hct) 42.1 42.0-54.0 [place] 322392-10-07 15:38:00 Test Item Value Reference Range Interpretation Comments MCV (test code = MCV) 96.0 80.0-94.0 [facility] CenterAyjkmkrHOFQLUOYBF1195-49-39 15:38:00 Test Item Value Reference Range Interpretation Comments MCH (test code = MCH) 31.2 pg 27.0-31.0 [place] 322392-10-07 15:38:00 Test Item Value Reference Range Interpretation Comments MCHC (test code = MCHC) 32.5 32.0-36.0 [place] 322392-10-07 15:38:00 Test Item Value Reference Range Interpretation Comments RDW (test code = RDW) 13.7 11.5-14.5 [facility] CenterOeyzbgxEKVJAQVVDV4779-10-76 15:38:00 Test Item Value Reference Range Interpretation Comments Platelet (test code = Platelet) 167 133-450 [facility] CenterJqemxfoNHPJIUYWYE5862-18-62 15:38:00 Test Item Value Reference Range Interpretation Comments MPV (test code = MPV) 10.4 7.4-10.4 [place] 322392-10-07 15:38:00 Test Item Value Reference Range Interpretation Comments Segs (test code = Segs) 64.6 45.0-75.0 [facility] CenterZpsphlaKNNHJECRTP0726-39-85 15:38:00 Test Item Value Reference Range Interpretation Comments Lymphocytes (test code = Lymphocytes) 25.6 20.0-40.0 [place] 322392-10-07 15:38:00 Test Item Value Reference Range Interpretation Comments Monocytes (test code = Monocytes) 8.5 2.0-12.0 [place] 322392-10-07 15:38:00 Test Item Value Reference Range Interpretation Comments Eosinophils (test code = 0.7 See_Comment [A utomated message] The Eosinophils) system which ge nerated this result tra nsmitted reference range : <=4.0. The reference r maxine was not used to int erpret this result as normal/abnormal . [facility] CenterHdpvekyBBMMMLCXIF9764-88-30 15:38:00 Test Item Value Reference Range Interpretation Comments Basophils (test code = 0.6 See_Comment [Aut omated message] The Basophils) system which ge nerated this result tra nsmitted reference range : <=1.0. The reference r maxine was not used to int erpret this result as normal/abnormal . [facility] CenterZhweovjEKMAXCWLBX0375-14-64 15:38:00 Test Item Value Reference Range Interpretation Comments Neutrophils # (test code = Neutrophils 4.4 1.5-8.1 #) [facility] CenterEobyknzMCMCGTAZAU9349-29-22 15:38:00 Test Item Value Reference Range Interpretation Comments Lymphocytes # (test code = Lymphocytes 1.7 1.0-5.5 #) [place] 322392-10-07 15:38:00 Test Item Value Reference Range Interpretation Comments Monocytes # (test code 0.6 See_Comment [Aut omated message] The = Monocytes #) system which generated this result tra nsmitted reference range : <=0.8. The reference r maxine was not used to int erpret this result as normal/abnormal . [facility] CenterIffonnbZKFZTSIYDY9682-00-09 15:38:00 Test Item Value Reference Range Interpretation Comments Coronavirus (COVID-19) Not Detected AMBREEN (test code = *NA*(08/12/22 10:38 Coronavirus (COVID-19) AM) AMBREEN) [facility]2022-10-07 15:38:00 Test Item Value Reference Range Interpretation Comments Glucose Lvl (test code = Glucose Lvl) 99 70-99 [place] 187932-10-07 15:38:00 Test Item Value Reference Range Interpretation Comments BUN (test code = BUN) 13 7-22 [place] 187932-10-07 15:38:00 Test Item Value Reference Range Interpretation Comments Creatinine Lvl (test code = Creatinine 0.99 0.50-1.40 Lvl) [facility]2022-10-07 15:38:00 Test Item Value Reference Range Interpretation Comments Sodium Lvl (test code = Sodium Lvl) 141 135-145 [place] 187932-10-07 15:38:00 Test Item Value Reference Range Interpretation Comments Potassium Lvl (test code = Potassium 4.1 3.5-5.1 Lvl) [place] 187932-10-07 15:38:00 Test Item Value Reference Range Interpretation Comments Chloride Lvl (test code = Chloride Lvl) 106 95-109 [facility]2022-10-07 15:38:00 Test Item Value Reference Range Interpretation Comments CO2 (test code = CO2) 27 24-32 [facility]2022-10-07 15:38:00 Test Item Value Reference Range Interpretation Comments Calcium Lvl (test code = Calcium Lvl) 9.2 8.5-10.5 [place] 187932-10-07 15:38:00 Test Item Value Reference Range Interpretation Comments AGAP (test code = AGAP) 12.1 10.0-20.0 [place] 187932-10-07 15:38:00 Test Item Value Reference Range Interpretation Comments eGFR (test code = eGFR) 84 [facility] CenterIqatwvzISZHPVAASZ1745-13-53 15:38:00 Test Item Value Reference Range Interpretation Comments WBC (test code = WBC) 6.8 3.7-10.4 [place] 322392-10-07 15:38:00 Test Item Value Reference Range Interpretation Comments RBC (test code = RBC) 4.39 4.70-6.10 [place] 322392-10-07 15:38:00 Test Item Value Reference Range Interpretation Comments Hgb (test code = Hgb) 13.7 14.0-18.0 [place] 322392-10-07 15:38:00 Test Item Value Reference Range Interpretation Comments Hct (test code = Hct) 42.1 42.0-54.0 [place] 322392-10-07 15:38:00 Test Item Value Reference Range Interpretation Comments MCV (test code = MCV) 96.0 80.0-94.0 [facility] CenterYsvvtqrESTYJXWOPM9780-30-45 15:38:00 Test Item Value Reference Range Interpretation Comments MCH (test code = MCH) 31.2 pg 27.0-31.0 [place] 322392-10-07 15:38:00 Test Item Value Reference Range Interpretation Comments MCHC (test code = MCHC) 32.5 32.0-36.0 [facility] CenterQcuccvoWSBFLTVCXG3750-97-92 15:38:00 Test Item Value Reference Range Interpretation Comments RDW (test code = RDW) 13.7 11.5-14.5 [facility] CenterAsxotpxBDWNKZVHTA4000-07-38 15:38:00 Test Item Value Reference Range Interpretation Comments Platelet (test code = Platelet) 167 133-450 [facility] CenterXukcypiLGGATAOAGA6333-04-09 15:38:00 Test Item Value Reference Range Interpretation Comments MPV (test code = MPV) 10.4 7.4-10.4 [place] 322392-10-07 15:38:00 Test Item Value Reference Range Interpretation Comments Segs (test code = Segs) 64.6 45.0-75.0 [facility] CenterEadgfbqRDMJNEBIXF5794-28-25 15:38:00 Test Item Value Reference Range Interpretation Comments Lymphocytes (test code = Lymphocytes) 25.6 20.0-40.0 [place] 322392-10-07 15:38:00 Test Item Value Reference Range Interpretation Comments Monocytes (test code = Monocytes) 8.5 2.0-12.0 [facility] CenterBirprhhCZSJVCUDKI3459-13-12 15:38:00 Test Item Value Reference Range Interpretation Comments Eosinophils (test code = 0.7 See_Comment [A utomated message] The Eosinophils) system which ge nerated this result tra nsmitted reference range : <=4.0. The reference r maxine was not used to int erpret this result as normal/abnormal . [facility] CenterFydtngqLOJTNOKACY2944-37-05 15:38:00 Test Item Value Reference Range Interpretation Comments Basophils (test code = 0.6 See_Comment [Aut omated message] The Basophils) system which ge nerated this result tra nsmitted reference range : <=1.0. The reference r maxine was not used to int erpret this result as normal/abnormal . [facility] CenterFbcskguJXMRYPCPMY8801-91-52 15:38:00 Test Item Value Reference Range Interpretation Comments Neutrophils # (test code = Neutrophils 4.4 1.5-8.1 #) [facility] CenterLigqtjtJQUIGXAIRJ4857-10-86 15:38:00 Test Item Value Reference Range Interpretation Comments Lymphocytes # (test code = Lymphocytes 1.7 1.0-5.5 #) [facility] CenterLvyteaxXPZYEQLJYA8363-29-23 15:38:00 Test Item Value Reference Range Interpretation Comments Monocytes # (test code 0.6 See_Comment [Aut omated message] The = Monocytes #) system which generated this result tra nsmitted reference range : <=0.8. The reference r maxine was not used to int erpret this result as normal/abnormal . [facility] CenterVwzpkneRJOZHPHRVU1771-01-18 15:38:00 Test Item Value Reference Range Interpretation Comments Coronavirus (COVID-19) Not Detected AMBREEN (test code = *NA*(08/12/22 10:38 Coronavirus (COVID-19) AM) AMBREEN) [facility]2022-10-07 15:38:00 Test Item Value Reference Range Interpretation Comments Glucose Lvl (test code = Glucose Lvl) 99 70-99 [facility]2022-10-07 15:38:00 Test Item Value Reference Range Interpretation Comments BUN (test code = BUN) 18 05- [place] 187932-10-07 15:38:00 Test Item Value Reference Range Interpretation Comments Creatinine Lvl (test code = Creatinine 0.99 0.50-1.40 Lvl) [facility]2022-10-07 15:38:00 Test Item Value Reference Range Interpretation Comments Sodium Lvl (test code = Sodium Lvl) 141 135-145 [facility]2022-10-07 15:38:00 Test Item Value Reference Range Interpretation Comments Potassium Lvl (test code = Potassium 4.1 3.5-5.1 Lvl) [place] 187932-10-07 15:38:00 Test Item Value Reference Range Interpretation Comments Chloride Lvl (test code = Chloride Lvl) 106 95-109 [place] 187932-10-07 15:38:00 Test Item Value Reference Range Interpretation Comments CO2 (test code = CO2) 27 24-32 [place] 187932-10-07 15:38:00 Test Item Value Reference Range Interpretation Comments Calcium Lvl (test code = Calcium Lvl) 9.2 8.5-10.5 [place] 187932-10-07 15:38:00 Test Item Value Reference Range Interpretation Comments AGAP (test code = AGAP) 12.1 10.0-20.0 [place] 187932-10-07 15:38:00 Test Item Value Reference Range Interpretation Comments eGFR (test code = eGFR) 84 [place] 322392-10-07 15:38:00 Test Item Value Reference Range Interpretation Comments WBC (test code = WBC) 6.8 3.7-10.4 [place] [address]-10-07 15:38:00 Test Item Value Reference Range Interpretation Comments RBC (test code = RBC) 4.39 4.70-6.10 [place] 322392-10-07 15:38:00 Test Item Value Reference Range Interpretation Comments Hgb (test code = Hgb) 13.7 14.0-18.0 [place] [address]-10-07 15:38:00 Test Item Value Reference Range Interpretation Comments Hct (test code = Hct) 42.1 42.0-54.0 [place] [address]-10-07 15:38:00 Test Item Value Reference Range Interpretation Comments MCV (test code = MCV) 96.0 80.0-94.0 [place] [address]-10-07 15:38:00 Test Item Value Reference Range Interpretation Comments MCH (test code = MCH) 31.2 pg 27.0-31.0 [place] [address]-10-07 15:38:00 Test Item Value Reference Range Interpretation Comments MCHC (test code = MCHC) 32.5 32.0-36.0 [place] [address]-10-07 15:38:00 Test Item Value Reference Range Interpretation Comments RDW (test code = RDW) 13.7 11.5-14.5 [place] 322392-10-07 15:38:00 Test Item Value Reference Range Interpretation Comments Platelet (test code = Platelet) 167 133-450 [place] 322392-10-07 15:38:00 Test Item Value Reference Range Interpretation Comments MPV (test code = MPV) 10.4 7.4-10.4 [place] 322392-10-07 15:38:00 Test Item Value Reference Range Interpretation Comments Segs (test code = Segs) 64.6 45.0-75.0 [place] [address]-10-07 15:38:00 Test Item Value Reference Range Interpretation Comments Lymphocytes (test code = Lymphocytes) 25.6 20.0-40.0 [place] [address]-10-07 15:38:00 Test Item Value Reference Range Interpretation Comments Monocytes (test code = Monocytes) 8.5 2.0-12.0 [place] 322392-10-07 15:38:00 Test Item Value Reference Range Interpretation Comments Eosinophils (test code = 0.7 See_Comment [A utomated message] The Eosinophils) system which ge nerated this result tra nsmitted reference range : <=4.0. The reference r maxine was not used to int erpret this result as normal/abnormal . [place] [address]-10-07 15:38:00 Test Item Value Reference Range Interpretation Comments Basophils (test code = 0.6 See_Comment [Aut omated message] The Basophils) system which ge nerated this result tra nsmitted reference range : <=1.0. The reference r maxine was not used to int erpret this result as normal/abnormal . [place] 322392-10-07 15:38:00 Test Item Value Reference Range Interpretation Comments Neutrophils # (test code = Neutrophils 4.4 1.5-8.1 #) [place] 322392-10-07 15:38:00 Test Item Value Reference Range Interpretation Comments Lymphocytes # (test code = Lymphocytes 1.7 1.0-5.5 #) [place] [address]-10-07 15:38:00 Test Item Value Reference Range Interpretation Comments Monocytes # (test code 0.6 See_Comment [Aut omated message] The = Monocytes #) system which generated this result tra nsmitted reference range : <=0.8. The reference r maxine was not used to int erpret this result as normal/abnormal . [facility]SreexgzOSNJHJDSVB9127-93-29 15:38:00 Test Item Value Reference Range Interpretation Comments Coronavirus (COVID-19) Not Detected AMBREEN (test code = *NA*(08/12/22 10:38 Coronavirus (COVID-19) AM) AMBREEN) [facility]2022-10-07 15:38:00 Test Item Value Reference Range Interpretation Comments Glucose Lvl (test code = Glucose Lvl) 99 70-99 [facility]2022-10-07 15:38:00 Test Item Value Reference Range Interpretation Comments BUN (test code = BUN) 13 - [facility]2022-10-07 15:38:00 Test Item Value Reference Range Interpretation Comments Creatinine Lvl (test code = Creatinine 0.99 0.50-1.40 Lvl) [facility]2022-10-07 15:38:00 Test Item Value Reference Range Interpretation Comments Sodium Lvl (test code = Sodium Lvl) 141 135-145 [facility]2022-10-07 15:38:00 Test Item Value Reference Range Interpretation Comments Potassium Lvl (test code = Potassium 4.1 3.5-5.1 Lvl) [facility]2022-10-07 15:38:00 Test Item Value Reference Range Interpretation Comments Chloride Lvl (test code = Chloride Lvl) 106 95-109 [facility]2022-10-07 15:38:00 Test Item Value Reference Range Interpretation Comments CO2 (test code = CO2) 27 24-32 [place] 187932-10-07 15:38:00 Test Item Value Reference Range Interpretation Comments Calcium Lvl (test code = Calcium Lvl) 9.2 8.5-10.5 [facility]2022-10-07 15:38:00 Test Item Value Reference Range Interpretation Comments AGAP (test code = AGAP) 12.1 10.0-20.0 [facility]2022-10-07 15:38:00 Test Item Value Reference Range Interpretation Comments eGFR (test code = eGFR) 84 [facility]XikypszNITJYENNNP1555-54-99 15:38:00 Test Item Value Reference Range Interpretation Comments WBC (test code = WBC) 6.8 3.7-10.4 [facility] CenterYvtllalWRBYSFYWTE4753-51-12 15:38:00 Test Item Value Reference Range Interpretation Comments RBC (test code = RBC) 4.39 4.70-6.10 [facility] CenterVdeiwioDNLUIZNFOZ5481-78-74 15:38:00 Test Item Value Reference Range Interpretation Comments Hgb (test code = Hgb) 13.7 14.0-18.0 [facility] CenterHxbcoevBHUQVHEHSK2701-35-00 15:38:00 Test Item Value Reference Range Interpretation Comments Hct (test code = Hct) 42.1 42.0-54.0 [facility] CenterYnnpthjMZDXFJUGJJ0907-52-15 15:38:00 Test Item Value Reference Range Interpretation Comments MCV (test code = MCV) 96.0 80.0-94.0 [facility] CenterHardredIBDHQOVNZN1337-97-05 15:38:00 Test Item Value Reference Range Interpretation Comments MCH (test code = MCH) 31.2 pg 27.0-31.0 [facility] CenterQqhejlqDYSLGBKLXS3974-97-65 15:38:00 Test Item Value Reference Range Interpretation Comments MCHC (test code = MCHC) 32.5 32.0-36.0 [facility] CenterOsnofhmEOXTQRAYDL6875-11-03 15:38:00 Test Item Value Reference Range Interpretation Comments RDW (test code = RDW) 13.7 11.5-14.5 [facility] CenterKgpryywKHUBDOAKSP6350-27-39 15:38:00 Test Item Value Reference Range Interpretation Comments Platelet (test code = Platelet) 167 133-450 [facility] CenterHgfffqyZPNEFOROIN6465-20-05 15:38:00 Test Item Value Reference Range Interpretation Comments MPV (test code = MPV) 10.4 7.4-10.4 [facility] CenterJynffzjTRLDTGCRJF1813-90-77 15:38:00 Test Item Value Reference Range Interpretation Comments Segs (test code = Segs) 64.6 45.0-75.0 [facility] CenterEfxdzqvFWYMHJTBRH5986-37-19 15:38:00 Test Item Value Reference Range Interpretation Comments Lymphocytes (test code = Lymphocytes) 25.6 20.0-40.0 [facility] CenterBmtkkjeFQATSGVLXN0890-96-99 15:38:00 Test Item Value Reference Range Interpretation Comments Monocytes (test code = Monocytes) 8.5 2.0-12.0 [place] 322392-10-07 15:38:00 Test Item Value Reference Range Interpretation Comments Eosinophils (test code = 0.7 See_Comment [A utomated message] The Eosinophils) system which ge nerated this result tra nsmitted reference range : <=4.0. The reference r maxine was not used to int erpret this result as normal/abnormal . [facility] CenterKncpratUOEQVJCNDH3580-78-51 15:38:00 Test Item Value Reference Range Interpretation Comments Basophils (test code = 0.6 See_Comment [Aut omated message] The Basophils) system which ge nerated this result tra nsmitted reference range : <=1.0. The reference r maxine was not used to int erpret this result as normal/abnormal . [facility] CenterWqkjktkLAVDVNFPVH3121-44-62 15:38:00 Test Item Value Reference Range Interpretation Comments Neutrophils # (test code = Neutrophils 4.4 1.5-8.1 #) [place] 322392-10-07 15:38:00 Test Item Value Reference Range Interpretation Comments Lymphocytes # (test code = Lymphocytes 1.7 1.0-5.5 #) [place] 322392-10-07 15:38:00 Test Item Value Reference Range Interpretation Comments Monocytes # (test code 0.6 See_Comment [Aut omated message] The = Monocytes #) system which generated this result tra nsmitted reference range : <=0.8. The reference r maxine was not used to int erpret this result as normal/abnormal . [facility] CenterKbbbcigGYOEDEESLL8378-17-03 15:38:00 Test Item Value Reference Range Interpretation Comments Coronavirus (COVID-19) Not Detected AMBREEN (test code = *NA*(08/12/22 10:38 Coronavirus (COVID-19) AM) AMBREEN) [place] 187932-08-19 16:04:00 Test Item Value Reference Range Interpretation Comments POC Creatinine (test code = POC 1.0 0.5-1.4 Creatinine) [facility]2022-08-19 16:04:00 Test Item Value Reference Range Interpretation Comments eGFR (test code = eGFR) 84 [place] 187932-08-19 16:04:00 Test Item Value Reference Range Interpretation Comments POC Creatinine (test code = POC 1.0 0.5-1.4 Creatinine) [facility]2022-08-19 16:04:00 Test Item Value Reference Range Interpretation Comments eGFR (test code = eGFR) 84 [place] 187932-08-19 16:04:00 Test Item Value Reference Range Interpretation Comments POC Creatinine (test code = POC 1.0 0.5-1.4 Creatinine) [place] 187932-08-19 16:04:00 Test Item Value Reference Range Interpretation Comments eGFR (test code = eGFR) 84 [place] 187932-08-19 16:04:00 Test Item Value Reference Range Interpretation Comments POC Creatinine (test code = POC 1.0 0.5-1.4 Creatinine) [place] 187932-08-19 16:04:00 Test Item Value Reference Range Interpretation Comments eGFR (test code = eGFR) 84 [place] 187932-08-19 16:04:00 Test Item Value Reference Range Interpretation Comments POC Creatinine (test code = POC 1.0 0.5-1.4 Creatinine) [facility]2022-08-19 16:04:00 Test Item Value Reference Range Interpretation Comments eGFR (test code = eGFR) 84 [place] 187932-08-19 16:04:00 Test Item Value Reference Range Interpretation Comments POC Creatinine (test code = POC 1.0 0.5-1.4 Creatinine) [place] 187932-08-19 16:04:00 Test Item Value Reference Range Interpretation Comments eGFR (test code = eGFR) 84 [place] 187932-08-19 16:04:00 Test Item Value Reference Range Interpretation Comments POC Creatinine (test code = POC 1.0 0.5-1.4 Creatinine) [place] 187932-08-19 16:04:00 Test Item Value Reference Range Interpretation Comments eGFR (test code = eGFR) 84 [place] 187932-08-19 16:04:00 Test Item Value Reference Range Interpretation Comments POC Creatinine (test code = POC 1.0 0.5-1.4 Creatinine) [facility]2022-08-19 16:04:00 Test Item Value Reference Range Interpretation Comments eGFR (test code = eGFR) 84 [facility]2022-08-19 16:04:00 Test Item Value Reference Range Interpretation Comments POC Creatinine (test code = POC 1.0 0.5-1.4 Creatinine) [facility]2022-08-19 16:04:00 Test Item Value Reference Range Interpretation Comments eGFR (test code = eGFR) 84 [facility]2022-08-19 16:04:00 Test Item Value Reference Range Interpretation Comments POC Creatinine (test code = POC 1.0 0.5-1.4 Creatinine) [facility]2022-08-19 16:04:00 Test Item Value Reference Range Interpretation Comments eGFR (test code = eGFR) 84 [facility]2022-08-19 16:04:00 Test Item Value Reference Range Interpretation Comments POC Creatinine (test code = POC 1.0 0.5-1.4 Creatinine) [facility]2022-08-19 16:04:00 Test Item Value Reference Range Interpretation Comments eGFR (test code = eGFR) 84 [facility]2022-08-19 16:04:00 Test Item Value Reference Range Interpretation Comments POC Creatinine (test code = POC 1.0 0.5-1.4 Creatinine) [facility]2022-08-19 16:04:00 Test Item Value Reference Range Interpretation Comments eGFR (test code = eGFR) 84 [facility]2022-08-19 16:04:00 Test Item Value Reference Range Interpretation Comments POC Creatinine (test code = POC 1.0 0.5-1.4 Creatinine) [facility]2022-08-19 16:04:00 Test Item Value Reference Range Interpretation Comments eGFR (test code = eGFR) 84 [facility] URINALYSIS [id number] 00:00:00 Test Item Value Reference Range Interpretation Comments COLOR UA (test code = 5778-6) Yellow YELLOW/STRAW CLARITY UA (test code = 81229-0) Clear CLEAR GLUCOSE UA (test code = 5792-7) Negative NEGATIVE BILIRUBIN UA (test code = 5770-3) Negative NEGATIVE KETONES UA (test code = 42205-5) Negative NEGATIVE SPECIFIC GRAVITY UA (test code [...] NEGATIVE REDUCING SUBSTANCES URINE (test code = 17956-7) [facility] [id number] 00:00:00 Test Item Value Reference Range Interpretation Comments COLOR UA (test code = 5778-6) Yellow YELLOW/STRAW CLARITY UA (test code = 81124-1) Clear CLEAR GLUCOSE UA (test code = 5792-7) Negative NEGATIVE BILIRUBIN UA (test code = 5770-3) Negative NEGATIVE KETONES UA (test code = 13351-2) Negative NEGATIVE SPECIFIC GRAVITY UA (test code [...] NEGATIVE REDUCING SUBSTANCES URINE (test code = 48919-1) [facility] AAA, W/ DARRIUS.EXT.INKNSL2847-73-87 17:50:00 [facility] CENTERName: KERON MORENO : 1955 Sex: MAddendum BeginsREPORT STATUS:A I have reviewed the CT images for this study and I concur with the nonvascular imaging findings as dictated. Signed: Irvin Shin MDReport Verified Date/Time: 09/16/2021 17:50:50 Reading Location: [facility] Diagnostic Imaging Reading Room - [facility] 1.310.12Addendum EndsFINAL REPORT CT angiography of [...] the setting of substantial calcification in the [place] vasculature. The 2 stents are widely patent withno in-stent stenosis identified bilaterally. Thereafter, the [place] distal left and right external il iac [...] An addendum will be dictated by the Landfill Grader Radiologist regarding the nonvascular findings. THE REPORT WILL ONLY BE CONSIDERED COMPLETE AFTER THE ADDENDUM HAS BEEN DICTATED. Signed: Placiod [place] Verified Date/Time: 09/11/2021 09:17:52 Y-Jfgukumypo8838-13-08 09:51:07 Test Item Value Reference Range Interpretation Comments POC-Creatinine (test 0.6 mg/dL 0.6-1.3 : TESTE D AT [facility] 6720 code = 1859) [facility], [address]: Print Color Operator/Techni jolanta ID = [id number] for Paul Cannon POC-EGFR (test code 135 mL/min/1.73M2 = 1860) [facility]-Xqpqixtmsu0091-84-87 09:51:07 Test Item Value Reference Range Interpretation Comments POC-Creatinine (test 0.6 mg/dL 0.6-1.3 : TESTE D AT [facility] 6720 code = 1859) [facility], [address]: Print Color Operator/Techni jolanta ID = [id number] for Paul Cannon POC-EGFR (test code 135 mL/min/1.73M2 = 1860) [facility]-Kzycwyagyy5699-48-39 09:51:07 Test Item Value Reference Range Interpretation Comments POC-Creatinine (test 0.6 mg/dL 0.6-1.3 : TESTE D AT [place] [address] code = 1859) [facility], [address]: Print Color Operator/Techni jolanta ID = [id number] for Paul Cannon POC-EGFR (test code 135 mL/min/1.73M2 = 1860) [facility]-[id number] 09:51:07 Test Item Value Reference Range Interpretation Comments POC-CREATININE 0.6 mg/dL 0.6-1.3 : TESTED AT [facility] (BEAKER) (test [address] [place] [address] code = 1859) [place], [address]: Print Color Operator/Techni jolanta ID = [id number] for Paul Cannon POC-EGFR (BEAKER) 135 mL/min/1.73M2 (test code = 1860) POCT URINALYSIS [id number] 00:00:00 Test Item Value Reference Range Interpretation Comments COLOR UA (test code = 5778-6) Yellow YELLOW/STRAW CLARITY UA (test code = 10498-4) Clear CLEAR GLUCOSE UA (test code = 5792-7) Negative NEGATIVE BILIRUBIN UA (test code = 5770-3) Negative NEGATIVE KETONES UA (test code = 25222-5) Negative NEGATIVE SPECIFIC GRAVITY UA (test code [...] NEGATIVE REDUCING SUBSTANCES URINE (test code = 42848-3) [facility] [id number] 00:00:00 Test Item Value Reference Range Interpretation Comments COLOR UA (test code = 5778-6) Yellow YELLOW/STRAW CLARITY UA (test code = 16142-3) Clear CLEAR GLUCOSE UA (test code = 5792-7) Negative NEGATIVE BILIRUBIN UA (test code = 5770-3) Negative NEGATIVE KETONES UA (test code = 38731-2) Negative NEGATIVE SPECIFIC GRAVITY UA (test code [...] NEGATIVE REDUCING SUBSTANCES URINE (test code = 15696-1) [facility] HospitalRAD[facility], 1 VIEW, NON [id number] 07:11:00Reason for exam:->ctShould this be performed at the bedside?->Yes [facility] 1955 Sex: MFINAL REPORT RAD, CHEST, 1 VIEW, NON DEPT INDICATION: ct COMPARISON: Prior day's exam FINDINGS: Portable frontal view of the chest. IMPRESSION: Support Lines: None Lungs and pleura: Scattered subsegmental atelectasis. No new consolidation. No pneumothorax.Heart and mediastinum: Stable contours. Additional findings: None. Signed: JR Philip Robert MDReport Verified Date/Time: 05/17/2021 07:11:01 Reading Location: [facility] Radiology Reading Room C METABOLIC [id number] 06:35:00 Test Item Value Reference Range Interpretation [...] S NOT APPLICABLE FOR DIALYSIS PATIEN TS. Print Color Operator ID - TINY [id number] 06:35:00 Test Item Value Reference Range Interpretation Comments MAGNESIUM (BEAKER) (test code = 2.0 mg/dL 1.6-2.6 627) Print Color Operator ID - TINY [id number] 06:35:00 Test Item Value Reference Range Interpretation Comments PHOSPHORUS (BEAKER) (test code = 4.0 mg/dL 2.3-4.7 604) Print Color Operator ID - TINY WCBC W/PLT COUNT & AUTO [id number] 05:58:00 Test Item Value Reference Range Interpretation [...] (BEAKER) (test code = 2801) BASIC METABOLIC [id number] 08:28:00 Test Item Value Reference Range Interpretation [...] S NOT APPLICABLE FOR DIALYSIS PATIEN TS. Print Color Operator ID - JATINDER [id number] 08:28:00 Test Item Value Reference Range Interpretation Comments MAGNESIUM (BEAKER) (test code = 2.1 mg/dL 1.6-2.6 627) Print Color Operator ID - JATINDER [id number] 08:28:00 Test Item Value Reference Range Interpretation Comments PHOSPHORUS (BEAKER) (test code = 3.1 mg/dL 2.3-4.7 604) Print Color Operator ID - JATINDER WRAD, CHEST, 1 VIEW, NON [id number] 07:51:00Reason for exam:->ctShould this be performed at the bedside?->Yes [facility] : 1955 Sex: MFINAL REPORT [...] probable bilateral lower lobe atelectasis. Signed: Irvin Shinort Verified Date/Time: 05/16/2021 07:51:48 Reading Location: [address] Transitional Reading Room POCT-GLUCOSE [id number] 07:47:00 Test Item Value Reference Range Interpretation Comments POC-GLUCOSE METER 106 mg/dL 70-110 : TESTED A T [facility] 6720 (BEAKER) (test code = [place], 1538) [address]: Print Color Operator/Techni jolanta ID = [id number] for BRITNI LUU CBC W/PLT COUNT & AUTO [id number] 07:05:00 Test Item Value Reference Range Interpretation [...] PERCENT (BEAKER) (test code = 2801) CALCIUM, [id number] 07:04:00 Test Item Value Reference Range Interpretation Comments CALCIUM IONIZED (BEAKER) (test 1.17 mmol/L 1.12-1.27 code = 698) PH, BLOOD (BEAKER) (test code = 7.39 1810) POCT-GLUCOSE [id number] 21:25:00 Test Item Value Reference Range Interpretation Comments POC-GLUCOSE METER 131 mg/dL 70-110 H : TESTED A T [facility] 6720 (BEAKER) (test code = [place], 1538) [address]: Print Color Operator/Techni jolanta ID = [id number] for Cristin Pickard POCT-GLUCOSE [id number] 17:55:00 Test Item Value Reference Range Interpretation Comments POC-GLUCOSE METER 106 mg/dL 70-110 : TESTED A T [facility] 6720 (BEAKER) (test code = RACHEL Gillette [facility], 1538) [address]: Print Color Operator/Techni jolanta ID = [id number] for Kalen AGUSTIN POCT-GLUCOSE [id number] 12:51:00 Test Item Value Reference Range Interpretation Comments POC-GLUCOSE METER 116 mg/dL 70-110 H : TESTED A T [facility] 6720 (BEAKER) (test code = MANOLOIA Leta [facility], 1538) [address]: Print Color Operator/Techni jolanta ID = [id number] for COLBY BARKER RAD, CHEST, 1 VIEW, NON [id number] 08:07:00Reason for exam:->ctShould this be performed at the bedside?->Yes [facility] : 1955 Sex: MFINAL REPORT Chest one view. Clinical history: ct Comparison: May 14, 2021 Discussion: A frontal chest is provided. Cardiomediastinal contours are unchanged. Right IJ line has been removed. A left-sided chest tube is in stable position. Stable streaky left basilar opacity. No new consolidation. No pneumothorax or large effusion. Signed: Regine Mooney Verified Date/Time: 05/15/2021 08:07:09 Reading Location: [address] Consult Reading Room POCT-GLUCOSE [id number] 08:00:00 Test Item Value Reference Range Interpretation Comments POC-GLUCOSE METER 120 mg/dL 70-110 H : TESTED Paty T [facility] 6720 (BEAKER) (test code = [place], 1538) [address]: Print Color Operator/Techni jolanta ID = [id number] for Lexus Hernández BASIC METABOLIC [id number] 06:15:00 Test Item Value Reference Range Interpretation [...] S NOT APPLICABLE FOR DIALYSIS PATIEN TS. Print Color Operator ID - [id number] 06:15:00 Test Item Value Reference Range Interpretation Comments MAGNESIUM (BEAKER) (test code = 2.0 mg/dL 1.6-2.6 627) Print Color Operator ID - [id number] 06:15:00 Test Item Value Reference Range Interpretation Comments PHOSPHORUS (BEAKER) (test code = 3.1 mg/dL 2.3-4.7 604) Print Color Operator ID - EDASICBC W/PLT COUNT & AUTO [id number] 05:47:00 Test Item Value Reference Range Interpretation [...] 0-1 PERCENT (BEAKER) (test code = 2801) [id number] 08:39:00 Test Item Value Reference Range Interpretation Comments MAGNESIUM (BEAKER) (test code = 1.9 mg/dL 1.6-2.6 627) Print Color Operator ID - ADMINRAD, CHEST, 1 VIEW, NON [id number] 07:57:00while patient is intubated or has chest tubes.Reason for exam:->Status post CV SurgeryShould thisbe performed at the bedside?->Yes [facility] 1955 Sex: MFINAL REPORT TECHNIQUE: Frontal view of the chest. INDICATION: 65-year-old man status post cardiovascular surgery. COMPARISON: Chest radiograph 05/13/2021. FINDINGS: LINES/TUBES: Interval extubation and removal of the nasogastric/orogastric tube. Other lines/tubes are unchanged. LUNGS: Persistent streaky atelectasis in the left lung base. PLEURA: No pneumothorax or significant pleural effusion. HEART AND MEDIASTINUM: Cardiomediastinal silhouette is unchanged. Atherosclerotic calcifications in the thoracic aorta. BONES AND SOFT TISSUES: Unremarkable. IMPRESSION:Lines/tubes as above.Otherwise, no significant change since 05/13/2021. Signed: Hailey Samaniego MDReport Verified Date/Time: 05/14/2021 07:57:54 Reading Location: [facility] Diagnostic Imaging Reading Room - [place] [address] [id number] 06:59:00 Test Item Value Reference Range Interpretation Comments MAGNESIUM (BEAKER) 5.3 mg/dL 1.6-2.6 HH Specimen slightly (test code = 627) hemolyzed Print Color Operator ID - PIAYA [id number] 06:38:00 Test Item Value Reference Range Interpretation Comments ACTIVATED CLOTTING TIME 109 sec : 74 -137 seconds, (BEAKER) (test code = Baseli ne: TESTED AT 441) [address], [facility] 30: Print Color Operator/Techni jolanta ID = [id number] for CHAPIN KUHN [id number] 06:38:00 Test Item Value Reference Range Interpretation Comments ACTIVATED CLOTTING TIME 125 sec : 74 -137 seconds, (BEAKER) (test code = Baseli ne: TESTED AT 441) [address], [facility] 30: Print Color Operator/Techni jolanta ID = [id number] for CHAPIN KUHN [id number] 06:38:00 Test Item Value Reference Range Interpretation Comments ACTIVATED CLOTTING TIME 318 sec : 74 -137 seconds, (BEAKER) (test code = Baseli ne: TESTED AT 441) [address], [facility] 30: Print Color Operator/Techni jolanta ID = [id number] for CHAPIN KUHN [id number] 06:38:00 Test Item Value Reference Range Interpretation Comments ACTIVATED CLOTTING TIME 290 sec : 74 -137 seconds, (BEAKER) (test code = Baseli ne: TESTED AT 441) [address], [facility] 30: Print Color Operator/Techni jolanta ID = [id number] for CHAPIN KUHN [id number] 06:37:00 Test Item Value Reference Range Interpretation Comments ACTIVATED CLOTTING TIME 224 sec : 74 -137 seconds, (BEAKER) (test code = Baseli ne: TESTED AT 441) [address], [facility] 30: Print Color Operator/Techni jolanta ID = [id number] for CHAPIN KUHN [id number] 06:06:00 Test Item Value Reference Range Interpretation Comments PHOSPHORUS (BEAKER) 4.1 mg/dL 2.3-4.7 Specimen slightly (test code = 604) hemolyzed Print Color Operator ID - PIAYA LBASIC METABOLIC [id number] 06:06:00 Test Item Value Reference Range Interpretation [...] S NOT APPLICABLE FOR DIALYSIS PATIEN TS. Print Color Operator ID - PIAYA LCBC (HEMOGRAM ONLY)2021-05-14 05:17:00 [...] (BEAKER) (test code = 413) BLOOD GAS, [id number] 05:15:00 Test Item Value Reference Range Interpretation [...] (BEAKER) (test code = 1819) 36.0 GLUCOSE-STAT [id number] 05:15:00 Test Item Value Reference Range Interpretation Comments GLUCOSE RANDOM (BEAKER) (test code 137 mg/dL 70-110 H = 652) HGB/HCT (H&H) - STAT [id number] 05:15:00 Test Item Value Reference Range Interpretation Comments HEMOGLOBIN (BEAKER) (test code = 13.2 GM/DL 13.0-16.8 410) HEMATOCRIT (BEAKER) (test code = 39.0 % 40.0-50.0 L 411) CALCIUM, [id number] 05:15:00 Test Item Value Reference Range Interpretation Comments CALCIUM IONIZED (BEAKER) (test 1.17 mmol/L 1.12-1.27 code = 698) PH, BLOOD (BEAKER) (test code = 7.38 1810) SODIUM NA-STAT [id number] 05:13:00 Test Item Value Reference Range Interpretation Comments SODIUM (BEAKER) (test code = 381) 137 meq/L 136-145 POTASSIUM-STAT [id number] 05:13:00 Test Item Value Reference Range Interpretation Comments POTASSIUM (BEAKER) (test code = 4.0 meq/L 3.6-5.5 379) RAD, CHEST, 1 VIEW, NON [id number] 03:17:00Reason for exam:->Status post CV Surgery post op day 0Should this be performed at the bedside?->Yes [facility] : 1955 Sex: [...] cardiomediastinal contours.Additional findings: None. Signed: Luiza Beal [facility] CENTEReport Verified Date/Time: 05/14/2021 03:17:59 BASIC METABOLIC [id number] 19:57:00 Test Item Value Reference Range Interpretation [...] S NOT APPLICABLE FOR DIALYSIS PATIEN TS. Print Color Operator ID - [id number] 19:52:00 Test Item Value Reference Range Interpretation Comments MAGNESIUM (BEAKER) (test code = 2.1 mg/dL 1.6-2.6 627) Print Color Operator ID - [id number] 19:52:00 Test Item Value Reference Range Interpretation Comments PHOSPHORUS (BEAKER) (test code = 3.5 mg/dL 2.3-4.7 604) Print Color Operator ID - DBLACTIC ACID, [id number] 19:47:00 Test Item Value Reference Range Interpretation Comments LACTATE BLOOD ARTERIAL (2) 1.2 mmol/L 0.5-2.2 (BEAKER) (test code = 2874) Print Color Operator ID - [id number] 19:36:00 Test Item Value Reference Range Interpretation Comments FIBRINOGEN LEVEL (BEAKER) (test 311 mg/dl 225-434 code = 658) [id number] 19:36:00 Test Item Value Reference Range Interpretation Comments PARTIAL THROMBOPLASTIN TIME 27.4 seconds 22.5-36.0 (BEAKER) (test code = 760) PROTHROMBIN [id number] 19:35:00 Test Item Value Reference Range Interpretation Comments PROTIME (BEAKER) 14.8 seconds 11.9-14.2 H (test code = 759) INR (BEAKER) (test 1.18 See_Comment [Automat ed message] code = 370) The system SED Web generated this result transmitted ref erence range: <=5.90. The reference range was not used to int erpret this result as normal/abnormal . RECOMMENDED COUMADIN/WARFARIN INR THERAPY RANGESSTANDARD DOSE: 2.0 - 3.0 Includes: PROPHYLAXIS for venous thrombosis, systemic embolization; TREATMENT for venous thrombosis and/or pulmonary embolus.HIGH RISK: Target INR is 2.5-3.5 for patients with mechanical heart valves.CBC W/PLT COUNT & AUTO [id number] 19:26:00 Test Item Value Reference Range Interpretation [...] (BEAKER) (test code = 2801) BLOOD GAS, [id number] 19:15:00 Test Item Value Reference Range Interpretation [...] 36.4 (test code = 1818) BLOOD GAS, [id number] 18:36:00 Test Item Value Reference Range Interpretation [...] (BEAKER) (test code = 1819) 54.0 GLUCOSE-STAT [id number] 18:36:00 Test Item Value Reference Range Interpretation Comments GLUCOSE RANDOM (BEAKER) (test code 132 mg/dL 70-110 H = 652) HGB/HCT (H&H) - STAT [id number] 18:36:00 Test Item Value Reference Range Interpretation Comments HEMOGLOBIN (BEAKER) (test code = 11.7 GM/DL 13.0-16.8 L 410) HEMATOCRIT (BEAKER) (test code = 34.0 % 40.0-50.0 L 411) SODIUM NA-STAT [id number] 18:35:00 Test Item Value Reference Range Interpretation Comments SODIUM (BEAKER) (test code = 381) 138 meq/L 136-145 POTASSIUM-STAT [id number] 18:35:00 Test Item Value Reference Range Interpretation Comments POTASSIUM (BEAKER) (test code = 3.7 meq/L 3.6-5.5 379) LACTIC ACID, [id number] 16:33:00 Test Item Value Reference Range Interpretation Comments LACTATE BLOOD ARTERIAL (2) 1.1 mmol/L 0.5-2.2 (BEAKER) (test code = 2874) Print Color Operator ID - EMERSONBLOOD GAS, [id number] 15:41:00 Test Item Value Reference Range Interpretation [...] = 1819) 50.0 HGB/HCT (H&H) - STAT [id number] 15:41:00 Test Item Value Reference Range Interpretation Comments HEMOGLOBIN (BEAKER) (test code = 12.9 GM/DL 13.0-16.8 L 410) HEMATOCRIT (BEAKER) (test code = 38.0 % 40.0-50.0 L 411) GLUCOSE-STAT [id number] 15:40:00 Test Item Value Reference Range Interpretation Comments GLUCOSE RANDOM (BEAKER) (test code 108 mg/dL 70-110 = 652) SODIUM NA-STAT [id number] 15:40:00 Test Item Value Reference Range Interpretation Comments SODIUM (BEAKER) (test code = 381) 139 meq/L 136-145 POTASSIUM-STAT [id number] 15:40:00 Test Item Value Reference Range Interpretation Comments POTASSIUM (BEAKER) (test code = 4.0 meq/L 3.6-5.5 379) CALCIUM, [id number] 15:18:00 Test Item Value Reference Range Interpretation Comments CALCIUM IONIZED (BEAKER) (test 1.09 mmol/L 1.12-1.27 L code = 698) PH, BLOOD (BEAKER) (test code = 7.41 1810) BLOOD GAS, [id number] 15:16:00 Test Item Value Reference Range Interpretation [...] (BEAKER) (test code = 1819) 55.0 POTASSIUM-STAT [id number] 15:16:00 Test Item Value Reference Range Interpretation Comments POTASSIUM (BEAKER) (test code = 3.4 meq/L 3.6-5.5 L 379) HGB/HCT (H&H) - STAT [id number] 15:16:00 Test Item Value Reference Range Interpretation Comments HEMOGLOBIN (BEAKER) (test code = 11.8 GM/DL 13.0-16.8 L 410) HEMATOCRIT (BEAKER) (test code = 35.0 % 40.0-50.0 L 411) GLUCOSE-STAT [id number] 15:08:00 Test Item Value Reference Range Interpretation Comments GLUCOSE RANDOM (BEAKER) (test code 107 mg/dL 70-110 = 652) SODIUM NA-STAT [id number] 15:08:00 Test Item Value Reference Range Interpretation Comments SODIUM (BEAKER) (test code = 381) 138 meq/L 136-145 LACTIC ACID, [id number] 15:07:00 Test Item Value Reference Range Interpretation Comments LACTATE BLOOD VENOUS (2) (BEAKER) 0.99 mmol/L 0.50-2.20 (test code = 2872) Print Color Operator ID - EMERSONHGB/HCT (H&H) - STAT [id number] 14:38:00 Test Item Value Reference Range Interpretation Comments HEMOGLOBIN (BEAKER) (test code = 12.9 GM/DL 13.0-16.8 L 410) HEMATOCRIT (BEAKER) (test code = 38.0 % 40.0-50.0 L 411) CALCIUM, [id number] 14:38:00 Test Item Value Reference Range Interpretation Comments CALCIUM IONIZED (BEAKER) (test 1.22 mmol/L 1.12-1.27 code = 698) PH, BLOOD (BEAKER) (test code = 7.36 1810) BLOOD GAS, [id number] 14:37:00 Test Item Value Reference Range Interpretation [...] (BEAKER) (test code = 1819) 73.0 GLUCOSE-STAT [id number] 14:37:00 Test Item Value Reference Range Interpretation Comments GLUCOSE RANDOM (BEAKER) (test code 102 mg/dL 70-110 = 652) SODIUM NA-STAT [id number] 14:37:00 Test Item Value Reference Range Interpretation Comments SODIUM (BEAKER) (test code = 381) 139 meq/L 136-145 POTASSIUM-STAT [id number] 14:37:00 Test Item Value Reference Range Interpretation Comments POTASSIUM (BEAKER) (test code = 3.8 meq/L 3.6-5.5 379) CALCIUM, [id number] 13:40:00 Test Item Value Reference Range Interpretation Comments CALCIUM IONIZED (BEAKER) (test 1.12 mmol/L 1.12-1.27 code = 698) PH, BLOOD (BEAKER) (test code = 7.43 1810) GLUCOSE-STAT [id number] 13:39:00 Test Item Value Reference Range Interpretation Comments GLUCOSE RANDOM (BEAKER) (test code 104 mg/dL 70-110 = 652) SODIUM NA-STAT [id number] 13:39:00 Test Item Value Reference Range Interpretation Comments SODIUM (BEAKER) (test code = 381) 140 meq/L 136-145 POTASSIUM-STAT [id number] 13:39:00 Test Item Value Reference Range Interpretation Comments POTASSIUM (BEAKER) (test code = 3.7 meq/L 3.6-5.5 379) BLOOD GAS, [id number] 13:39:00 Test Item Value Reference Range Interpretation [...] = 1819) 79.0 HGB/HCT (H&H) - STAT [id number] 13:39:00 Test Item Value Reference Range Interpretation Comments HEMOGLOBIN (BEAKER) (test code = 13.3 GM/DL 13.0-16.8 410) HEMATOCRIT (FRANCISCO) (test code = 39.0 % 40.0-50.0 L 411) POCT-GLUCOSE [id number] 09:40:00 Test Item Value Reference Range Interpretation Comments POC-GLUCOSE METER 115 mg/dL 70-110 H : TESTED A T [facility] 6720 (FRANCISCO) (test code = [place], 1538) [address]: Print Color Operator/Techni jolanta ID = [id number] for CLAYTON LEWIS SARS-COV2/RT-PCR ([facility])2021-05-12 01:07:00 Test Item Value Reference Range Interpretation Comments SARS-COV2/RT-PCR (test Negative Not Detected, Negative, code = 6192928) See external report for linked test SARS-COV-[address] [facility] CRISTIAN (test code = 8209487) Negative result for this test determines that [...] the Arias SARS-CoV-2 assay.Fact Sheet for Healthcare Providers:https://www.[employer]uspine/gisel/RT_SAR G-BrZ-8_QTB_Ohnr_Lkjmm_95-098391.pdfFact Sheet for Healthcare Patients:https://www.[employer]usp[employer]/s al/NJ_GJSY-YyC-0_Ejjsvtd_Baiw_Dzfoh_VL_98-685093D0.pdfPerforming Laboratory:[facility] [place] [address] HEMOGLOBIN [id number] 13:53:00 Test Item Value Reference Range Interpretation Comments HEMOGLOBIN A1C (BEAKER) (test code = 6.4 % 4.3-6.1 H 368) COMPREHENSIVE METABOLIC [id number] 13:44:00 Test Item Value Reference Range Interpretation [...] 347) EGFR (BEAKER) (test 74 mL/min/1.73 ESTIMA NAYANA GFR IS code = 1092) sq m NOT ACCURATE CREATININE CLEARANCE IN PREDICTING GLOMERULAR FILTRATION RATE . ESTIMATED GFR I S NOT APPLICABLE FOR DIALYSIS PATIEN TS. Print Color Operator ID - [id number] 13:44:00 Test Item Value Reference Range Interpretation Comments MAGNESIUM (BEAKER) (test code = 2.3 mg/dL 1.6-2.6 627) Print Color Operator ID - DBLIPID [id number] 13:44:00 Test Item Value Reference Range Interpretation [...] Borderline 130-159 High 160-189 Very High >=190 Print Color Operator ID - [id number] 13:40:00 Test Item Value Reference Range Interpretation Comments PARTIAL THROMBOPLASTIN TIME 28.0 seconds 22.5-36.0 (BEAKER) (test code = 760) PROTHROMBIN TIME/[id number] 13:39:00 Test Item Value Reference Range Interpretation Comments PROTIME (BEAKER) 12.7 seconds 11.9-14.2 (test code = 759) INR (BEAKER) (test 0.97 See_Comment [Automat ed message] code = 370) The system SED Web generated this result transmitted ref erence range: <=5.90. The reference range was not used to int erpret this result as normal/abnormal . RECOMMENDED COUMADIN/WARFARIN INR THERAPY RANGESSTANDARD DOSE: 2.0 - 3.0 Includes: PROPHYLAXIS for venous thrombosis, systemic embolization; TREATMENT for venous thrombosis and/or pulmonary embolus.HIGH RISK: Target INR is 2.5-3.5 for patients with mechanical heart valves.CBC W/PLT COUNT & AUTO [id number] 13:15:00 Test Item Value Reference Range Interpretation [...] (test code = 2801) HIGH SENSITIVITY TROPONIN [id number] 21:19:00 Test Item Value Reference Range Interpretation Comments HIGH SENSITIVITY 36 pg/ml See_Comment H [Automated message] TROPONIN I (test code = The system which 4884060) generated this result transmitted ref erence range: <=35. Th e reference range was not used to int erpret this result as normal/abnormal . Print Color Operator ID - CINDY BThe PIECE WORK INSPECTOR STAT High Sensitivity Troponin-I results should be used in conjunction with other diagnostic information such as ECG, clinical observations and information, and patient symptoms to aid in the diagnosis of NV.HIGH SENSITIVITY TROPONIN [id number] 13:20:00 Test Item Value Reference Range Interpretation Comments HIGH SENSITIVITY 36 pg/ml See_Comment H [Automated message] TROPONIN I (test code = The system which 3079317) generated this result transmitted ref erence range: <=35. Th e reference range was not used to int erpret this result as normal/abnormal . Print Color Operator ID - MARICEL CThe PIECE WORK INSPECTOR STAT High Sensitivity Troponin-I results should be used in conjunction with other diagnostic information such as ECG, clinical observations and information, and patientsymptoms to aid in the diagnosis of NV. BASIC METABOLIC [id number] 04:46:00 Test Item Value Reference Range Interpretation [...] 697) EGFR (BEAKER) (test 97 mL/min/1.73 ESTIMA NAYANA GFR IS code = 1092) sq m NOT ACCURATE CREATININE CLEARANCE IN PREDICTING GLOMERULAR FILTRATION RATE . ESTIMATED GFR I S NOT APPLICABLE FOR DIALYSIS PATIEN TS. Print Color Operator ID - JAK [id number] 04:46:00 Test Item Value Reference Range Interpretation Comments MAGNESIUM (BEAKER) (test code = 2.1 mg/dL 1.6-2.6 627) Print Color Operator ID - JAK MCBC W/PLT COUNT & AUTO [id number] 04:32:00 Test Item Value Reference Range Interpretation [...] PERCENT (BEAKER) (test code = 2801) CT, [id number] 22:08:00Unlisted Reason for Exam - Click Yes and Enter Reason Below->YesUnlisted Reason for Exam->Evaluate descending aorta calcification to femoral iliac vessels, prior to cabgWill this procedure require oral contrast?->No [facility] : 1955 Sex: MFINAL REPORT [...] Pedraza Verified Date/Time: 05/03/2021 22:08:57 Reading Location: [address] Transitional Reading Room [id number] 16:21:00 Test Item Value Reference Range Interpretation Comments ACTIVATED CLOTTING TIME 131 sec : 74 -137 seconds, (BEAKER) (test code = Baseli ne: TESTED AT 441) [place] [address]: Print Color Operator/Techni jolanta ID = [id number] for ILLORY (V), IGNACIO [id number] 15:12:00 Test Item Value Reference Range Interpretation Comments ACTIVATED CLOTTING TIME 158 sec : 74 -137 seconds, (BEAKER) (test code = Baseli ne: TESTED AT 441) [place] [address]: Print Color Operator/Techni jolanta ID = [id number] for ILLORY (V), IGNACIO [id number] 12:13:00 Test Item Value Reference Range Interpretation Comments ACTIVATED CLOTTING TIME 290 sec : 74 -137 seconds, (BEAKER) (test code = Baseli ne: TESTED AT 441) [place] [address]: Print Color Operator/Techni jolanta ID = [id number] for [place] RPVIRGINIE JOHNSON [id number] 12:00:00 Test Item Value Reference Range Interpretation Comments ACTIVATED CLOTTING TIME 252 sec : 74 -137 seconds, (BEAKER) (test code = Baseli ne: TESTED AT 441) [facility] [address] [facility], [address] 30: Print Color Operator/Techni jolanta ID = [id number] for CA RPIO, [place]IR[place]IE BASIC METABOLIC [id number] 08:47:00 Test Item Value Reference Range Interpretation [...] 697) EGFR (BEAKER) (test 95 mL/min/1.73 ESTIMA NAYANA GFR IS code = 1092) sq m NOT ACCURATE CREATININE CLEARANCE IN PREDICTING GLOMERULAR FILTRATION RATE . ESTIMATED GFR I S NOT APPLICABLE FOR DIALYSIS PATIEN TS. Print Color Operator ID - AAHAMIDPROTHROMBIN TIME/[id number] 08:38:00 Test Item Value Reference Range Interpretation Comments PROTIME (BEAKER) 13.1 seconds 11.9-14.2 (test code = 759) INR (BEAKER) (test 1.01 See_Comment [Automat ed message] code = 370) The system SED Web generated this result transmitted ref erence range: <=5.90. The reference range was not used to int erpret this result as normal/abnormal . RECOMMENDED COUMADIN/WARFARIN INR THERAPY RANGESSTANDARD DOSE: 2.0 - 3.0 Includes: PROPHYLAXIS for venous thrombosis, systemic embolization; TREATMENT for venous thrombosis and/or pulmonary embolus.HIGH RISK: Target INR is 2.5-3.5 for patients with mechanical heart valves.CBC W/PLT COUNT & AUTO [id number] 08:29:00 Test Item Value Reference Range Interpretation [...] PERCENT (BEAKER) (test code = 2801) SARS-COV2/RT-PCR ([facility])2021-04-29 18:08:00 Test Item Value Reference Range Interpretation Comments SARS-COV2/RT-PCR (test Negative Not Detected, Negative, code = 8576018) See external report for linked test SARS-COV-[address] [facility] CRISTIAN (test code = 6682604) Negative result for this test determines that [...] of the Act.Fact Sheet for Healthcare Prov iders:https://www.YieldPlanet.[employer]ing/sites/default/files/product/documents/Fact_Sheet_HC _Fzofnfelu_Eczh_FOAI-QvD-6.pdfFact Sheet for Healthcare Patients:https://www.[employer]/sites/default/files/product/docume nts/Hcqj_Fkbpa_Cyheubyc_Zisq_TBRA-VdM-1.pdfPerforming Laboratory:[facility], [place] [address]ZLAXS METABOLIC PANEL 2021-04-29 13:20:00 Test Item Value [...] 697) EGFR (BEAKER) (test 92 mL/min/1.73 ESTIMA NAYANA GFR IS code = 1092) sq m NOT ACCURATE CREATININE CLEARANCE IN PREDICTING GLOMERULAR FILTRATION RATE . ESTIMATED GFR I S NOT APPLICABLE FOR DIALYSIS PATIEN TS. Print Color Operator ID - JAK MPROTHROMBIN TIME/[id number] 11:14:00 Test Item Value Reference Range Interpretation Comments PROTIME (BEAKER) 13.3 seconds 11.9-14.2 (test code = 759) INR (BEAKER) (test 1.03 See_Comment [Automat ed message] code = 370) The system SED Web generated this result transmitted ref erence range: <=5.90. The reference range was not used to int erpret this result as normal/abnormal . RECOMMENDED COUMADIN/WARFARIN INR THERAPY RANGESSTANDARD DOSE: 2.0 - 3.0 Includes: PROPHYLAXIS for venous thrombosis, systemic embolization; TREATMENT for venous thrombosis and/or pulmonary embolus.HIGH RISK: Target INR is 2.5-3.5 for patients with mechanical heart valves.CBC W/PLT COUNT & AUTO [id number] 11:03:00 Test Item Value Reference Range Interpretation [...] (BEAKER) (test code = 2801) POCT URINALYSIS [id number] 00:00:00 Test Item Value Reference Range Interpretation Comments COLOR UA (test code = 5778-6) Colorless YELLOW/STRAW CLARITY UA (test code = 92462-3) Clear CLEAR GLUCOSE UA (test code = 5792-7) Negative NEGATIVE BILIRUBIN UA (test code = 5770-3) Negative NEGATIVE KETONES UA (test code = 59423-6) Negative NEGATIVE SPECIFIC GRAVITY UA (test code [...] REDUCING SUBSTANCES URINE (test NEGATIVE code = 14516-6) [facility] TRANG [id number] 13:53:00 [facility] : 1955 Sex: MFINAL REPORT EXAM: CALCIUM SCORE AND CORONARY CTA INDICATION: Chest pain, acute, nonspecific COMPARISON: None. TECHNIQUE: Multi-detector CT technology was employed ( [employer] CT 750 HD 64 MDCT [place]). Minimal slice thickness was performed following the [...] Kayla Jesus MDReport Verified Date/Time: 03/23/2021 13:53:11 [id number] 10:20:00 Test Item Value Reference Range Interpretation Comments POC-CREATININE 0.9 mg/dL 0.6-1.3 : TESTED AT [facility] ([facility]) (test [address] [facility] code = 1859) A, [facility] 7 2931: Print Color Operator/Techni jolanta ID = [id number] for IRVIN EPPERSON POC-EGFR 85 mL/min/1.73M2 ([facility]) (test code = 1860) POCT URINALYSIS [id number] 00:00:00 Test Item Value Reference Range Interpretation Comments COLOR UA (test code = 5778-6) Yellow YELLOW/STRAW CLARITY UA (test code = 92059-4) Clear CLEAR GLUCOSE UA (test code = 5792-7) Negative NEGATIVE BILIRUBIN UA (test code = 5770-3) Negative NEGATIVE KETONES UA (test code = 90454-1) Negative NEGATIVE SPECIFIC GRAVITY UA (test code [...] NEGATIVE REDUCING SUBSTANCES URINE (test code = 85399-7) [facility])2021-01-05 02:00:00 Test Item Value Reference Range Interpretation Comments SARS-COV2/RT-PCR (test Negative Not Detected, Negative, code = 4648367) See external report for linked test SARS-COV-[address] [facility] CRISTIAN (test code = 1146955) Negative result for this test determines that [...] the Arias SARS-CoV-2 assay.Fact Sheet for Healthcare Providers:https://www.[employer]uspine/gisel/RT_SAR G-UuQ-0_JSU_Hjds_Mecmw_35-434645.pdfFact Sheet for Healthcare Patients:https://www.Handipoints/s al/ES_KTFI-FiI-9_Citqroq_Dxkj_Iayye_BQ_48-906764W7.pdfPerforming Laboratory:[address] [place] [address] BASIC METABOLIC [id number] 13:40:00 Test Item Value Reference Range Interpretation [...] 697) EGFR (BEAKER) (test 71 mL/min/1.73 ESTIMA NAYANA GFR IS code = 1092) sq m NOT ACCURATE CREATININE CLEARANCE IN PREDICTING GLOMERULAR FILTRATION RATE . ESTIMATED GFR I S NOT APPLICABLE FOR DIALYSIS PATIEN TS. Print Color Operator ID - JAK MPROTHROMBIN TIME/[id number] 13:21:00 Test Item Value Reference Range Interpretation Comments PROTIME (BEAKER) 12.7 seconds 11.9-14.2 (test code = 759) INR (BEAKER) (test 0.99 See_Comment [Automat ed message] code = 370) The system SED Web generated this result transmitted ref erence range: [...] mechanical heart valves.CBC W/PLT COUNT & AUTO [id number] 13:14:00 Test Item Value Reference Range Interpretation [...] (BEAKER) (test code = 2801) POCT URINALYSIS [id number] 00:00:00 Test Item Value Reference Range Interpretation Comments COLOR UA (test code = 5778-6) Colorless YELLOW/STRAW CLARITY UA (test code = 89457-0) Clear CLEAR GLUCOSE UA (test code = 5792-7) Negative NEGATIVE BILIRUBIN UA (test code = 5770-3) Negative NEGATIVE KETONES UA (test code = 50005-4) Negative NEGATIVE SPECIFIC GRAVITY UA (test code [...] NEGATIVE REDUCING SUBSTANCES URINE (test code = 54005-2) [facility] by RT-PCR (HIGH RISK)2020-09-23 00:00:00 Test Item Value Reference Range Interpretation Comments SARS-CoV-2 INTERPRETATION Negative (test code = 01661) SOURCE (test code = 01426) Nasal_Swab_in_VTM__ UTM SARS-CoV-2 (COVID-19) by RT-PCR (HIGH RISK)2020-09-16 00:00:00 Test Item Value Reference Range Interpretation Comments SARS-CoV-2 INTERPRETATION Negative (test code = 89343) SOURCE (test code = 55314) Nasal_Swab_in_VTM__ UTM CULTURE, [id number] 00:00:00 Test Item Value Reference Range Interpretation Comments CULTURE, URINE (test SPECIMEN NUMBER: code = 38947) [id number] CULTURE, [id number] 00:00:00 Test Item Value Reference Range Interpretation Comments CULTURE, URINE (test SPECIMEN NUMBER: code = 72320) [id number] PSA, [id number] 00:00:00 Test Item Value Reference Range Interpretation Comments PSA, TOTAL (test code = 2606) 0.26 NG/ML PSA, [id number] 00:00:00 Test Item Value Reference Range Interpretation Comments PSA, TOTAL (test code = 2606) 0.26 NG/ML PSA, [id number] 00:00:00 Test Item Value Reference Range Interpretation Comments PSA, TOTAL (test code = 2606) 0.26 NG/ML MR, BRAIN, WITHOUT IV [id number] 10:00:00FINAL REPORT History: Numbness and tinglingComparison studies: [...] the intracranial MRA of 03/03/2019. Signed: Lamine Hussein MDReport Verified Date/Time: 05/03/2019 10:00:48 Reading Location: [facility] Reading Room [address] [place] [address] CBC W/PLT COUNT & AUTO [id number] 06:59:00 Test Item Value Reference Range Interpretation [...] (BEAKER) (test code = 2801) BASIC METABOLIC [id number] 06:03:00 Test Item Value Reference Range Interpretation [...] NOT APPLICABLE FOR DIALYSIS PATIEN TS. HEMOGLOBIN [id number] 08:52:00 Test Item Value Reference Range Interpretation Comments HEMOGLOBIN A1C (BEAKER) (test code = 5.8 % 4.3-6.1 368) LIPID [id number] 06:11:00 Test Item Value Reference Range Interpretation [...] High 160-189 Very High >=190 FastingBASIC METABOLIC [id number] 06:11:00 Test Item Value Reference Range Interpretation [...] PATIEN TS. FastingCBC W/PLT COUNT & AUTO [id number] 05:06:00 Test Item Value Reference Range Interpretation [...] (test code = 2801) TSH/FREE T4 IF [id number] 19:14:00 Test Item Value Reference Range Interpretation Comments THYROID STIMULATING HORMONE 0.53 uIU/mL 0.35-4.94 (BEAKER) (test code = 772) VITAMIN B12 AND [id number] 19:14:00 Test Item Value Reference Range Interpretation Comments VITAMIN B12 (BEAKER) (test code = 660 pg/mL 213-816 774) FOLATE (BEAKER) (test code = 362) 6.9 ng/mL >=7.0 L BASIC METABOLIC [id number] 18:39:00 Test Item Value Reference Range Interpretation [...] FOR DIALYSIS PATIEN TS. MR, BRAIN, WITHOUT [id number] 16:16:00Reason for exam:->StrokeWhat is the patient's sedation [...] None available. TECHNIQUE: 2 D and 3-D qlht-vk-pdfwzi MRA images of the intra- and extracranial [...] is antegrade in both vertebral arteries. MRA [place]: There is a inferiorly to the 2 mm outpouching arising from the supraclinoid left ICA, co mpatible with a small aneurysm. No evidence of hemodynamically significant stenosis, or major branchvessel occlusion. IMPRESSION: 1. Mild narrowing of the proximal left cervical ICA. 2. 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 Correlation with CTA or conventional angiogram can be considered if clinically appropriate. Signed: Regine Mooney MDReport Verified Date/Time: 03/03/2019 16:16:12 Reading Location: [address] Neuro Reading Room MR, MRA, BRAIN, WITHOUT [id number] 16:16:00Reason for exam:->Ischemic Stroke EvaluationFINAL REPORT MRI [...] None available. TECHNIQUE: 2 D and 3-D imnu-vl-iicjgs MRA images of the intra- and extracranial [...] is antegrade in both vertebral arteries. MRA [place]: There is a inferiorly to [...] considered if clinically appropriate. Signed: Regine Mooney Verified Date/Time: 03/03/2019 16:16:12 Reading Location: [address] Neuro Reading Room MR, MRA, NECK, WITHOUT IV [id number] 16:16:00Reason for exam:->Ischemic Stroke EvaluationFINAL REPORT MRI [...] None available. TECHNIQUE: 2 D and 3-D [id number] MRA images of the intra- and extracranial [...] is antegrade in both vertebral arteries. MRA [place] of [place]: There is a inferiorly to [...] be considered if clinically appropriate. Signed: [facility] Verified Date/Time: 03/03/2019 16:16:12 Reading Location: [facility] C013 Neuro Reading Room [facility] PANEL 2019-03-03 04:08:00 Test Item Value Reference [...] High 160-189 Very High >=190 FastingBASIC METABOLIC [id number] 04:08:00 Test Item Value Reference Range Interpretation [...] PATIEN TS. FastingCBC W/PLT COUNT & AUTO [id number] 03:54:00 Test Item Value Reference Range Interpretation [...] = 2801) CBC W/PLT COUNT & AUTO [id number] 20:55:00 Test Item Value Reference Range Interpretation [...] (BEAKER) (test code = 2801) BASIC METABOLIC [id number] 20:44:00 Test Item Value Reference Range Interpretation [...] mg/dL 8.4-10.2 (test code = 697) EGFR (JABIERAKER) (test 97 mL/min/1.73 ESTIMA NAYANA GFR IS code = 1092) sq m NOT ACCURATE CREATININE CLEARANCE IN PREDICTING GLOMERULAR FILTRATION RATE . ESTIMATED GFR I S NOT APPLICABLE FOR DIALYSIS PATIEN TS.
[2023-01-19 18:35] LABS: Absolute Lymphocytes (CBC) 2.7 K/uL (0.7-4.9); Hematocrit 39.9 % (39.6-49.0); Lymphocytes % 28.6 % (15.3-44.8); MPV 10.1 fL (7.6-11.3); RBC Red Blood Cell Count 4.33 M/uL (4.33-5.43)
[2023-01-19 18:37] LABS: Protime INR 0.98
[2023-01-19 18:51] LABS: Bilirubin Total 0.5 mg/dL (0.2-1.0); Magnesium 2.2 mg/dL (1.6-2.4); Potassium 4.4 mEq/L (3.5-5.1); Protein, Total 7.3 g/dL (6.4-8.2); Troponin High Sensitivity 3.5 pg/mL (<58.9)
--- NOTE | 2023-01-19 18:53 | RAD REPORT ---
[facility]42 [facility] CLINICAL HISTORY: CHEST PAIN COMPARISON: Chest Pa And Lat (2 Views) dated 12/16/2021; Chest Pa And Lat (2 Views) dated 07/28/2021; Chest Single View dated 05/07/2021; Chest Single View dated 03/19/2021 TECHNIQUE: Portable AP view of the chest. FINDINGS: The lungs are clear. No pneumothorax or effusion. The cardiomediastinal contours are unrem arkable. IMPRESSION: No acute cardiopulmonary process.
--- NOTE | 2023-01-19 19:50 | ER ---
Nurse's Notes [facility] Name: John Moreno Age: 67 yrs Sex: Male : 1955 Arrival Date: 01/19/2023 Time: 17:56 Bed 8 Private MD: Edilson Pickett Diagnosis: Chest pain, unspecified Presentation: 01/19 18:00 Chief complaint: Patient states: I have discomfort around the lower mid chest area that kr3 started about 2-3 hours. Coronavirus screen: Vaccine status: Patient reports being unvaccinated. Ebola Screen: Patient denies travel to an Ebola-affected area in the 21 days before illness onset. Initial Sepsis Screen: Does the patient meet any 2 criteria? No. Patient's initial sepsis screen is negative. Does the patient have a suspected source of infection? No. Patient's initial sepsis screen is negative. Risk Assessment: Do you want to hurt yourself or someone else? Patient reports no desire to harm self or others. Onset of symptoms was January 19, 2023. 18:00 Method Of Arrival: Ambulatory kr3 18:00 Acuity: JEFFRY 3 kr3 Triage Assessment: 18:04 General: Appears in no apparent distress. comfortable, Behavior is calm, cooperative, kr3 appropriate for age. Pain: Complains of pain in xiphoid area. Neuro: Level of Consciousness is awake, alert, obeys commands, Oriented to person, place, time, situation. Cardiovascular: Patient's skin is warm and dry. Respiratory: Airway is patent Respiratory effort is even, unlabored, Respiratory pattern is regular, symmetrical. GI: No signs and/or symptoms were reported involving the gastrointestinal system. : No signs and/or symptoms were reported regarding the genitourinary system. Derm: No signs and/or symptoms reported regarding the dermatologic system. Musculoskeletal: No signs and/or symptoms reported regarding the musculoskeletal system. Historical: - Allergies: 18:03 NKDA; kr3 - PMHx: 18:03 coronary atherosclerosis; Hyperlipidemia; Hypertension; kr3 - PSHx: 18:03 cardiac bypass; heart cath; stents in legs; kr3 - Immunization history:: Adult Immunizations not up to date. - Social history:: Smoking status: Patient/guardian denies using tobacco, the patient reports quitting approximately 2.5 years ago. Screenin:30 [facility] ED Fall Risk Assessment (Adult) History of falling in the last 3 months, ko1 including since admission No falls in past 3 months (0 pts) Confusion or Disorientation No (0 pts) Intoxicated or Sedated No (0 pts) Impaired Gait No (0 pts) Mobility Assist Device Used No (0 pt) Altered Elimination No (0 pt) Score/Fall Risk Level 0 - 2 = Low Risk Oriented to surroundings, Maintained a safe environment, Educated pt \T\ family on fall prevention, incl call for assistance when getting out of bed, Assessed \T\ reinforced patient's understanding of fall precautions, Provided non-skid footwear, Hourly rounding (assess needs \T\ fall precautionary measures) done, Used ambulatory aids as needed (educated on \T\ assisted with), Used gait belt as appropriate. Abuse screen: Denies threats or abuse. Denies injuries from another. Nutritional screening: No deficits noted. Tuberculosis screening: No symptoms or risk factors identified. Assessment: 18:30 General: Appears in no apparent distress. uncomfortable, Behavior is calm, cooperative, ko1 appropriate for age. Pain: Pain does not radiate. Pain began gradually. Neuro: No deficits noted. Cardiovascular: Reports chest pain. Respiratory: No deficits noted. GI: No deficits noted. : No deficits noted. EENT: No deficits noted. Derm: No deficits noted. Musculoskeletal: No deficits noted. 19:28 General: Appears in no apparent distress. ko1 Vital Signs: 18:00 BP 164 / 85; Pulse 78; Resp 17; Temp 98.1(TE); Pulse Ox 99% on R/A; Weight 73.48 kg; kr3 Height 5 ft. 4 in. ; Pain 5/10; 18:30 BP 128 / 75; Pulse 72; Resp 18; Pulse Ox 100% ; ko1 19:28 BP 135 / 76; Pulse 67; Resp 18 S; Pulse Ox 100% on R/A; ko1 18:00 Body Mass Index 27.81 (73.48 kg, 162.56 cm) kr3 18:00 Pain Scale: Adult kr3 ED Course: 17:56 Patient arrived in ED. rg4 17:56 Edilson Pickett, is Private Physician. rg4 18:03 Triage completed. kr3 18:04 Leta Daigle FNP-C [facility] kb 18:04 Cooper Larios MD is Attending Physician. kb 18:05 Arm band placed on right wrist. kr3 18:18 Pau Tolliver, RN is Primary Nurse. ko1 18:23 CMP Sent. ko1 18:23 PT-INR Sent. ko1 18:23 CBC with Diff Sent. ko1 18:23 Magnesium Sent. ko1 18:23 NT PRO-BNP Sent. ko1 18:23 Troponin HS Sent. ko1 18:30 Patient has correct armband on for positive identification. Bed in low position. Call ko1 light in reach. Side rails up X 1. residential monitor on. Pulse ox on. NIBP on. 18:30 Patient maintains SpO2 saturation greater than 95% on room air. ko1 18:44 XRAY Chest (1 view) In Process Unspecified. EDMS 19:31 US Abdomen Limited In Process Unspecified. EDMS 19:49 Derik Bell MD is Hospitalizing Provider. kb Administered Medications: No medications were administered Outcome: 19:50 Decision to Hospitalize by Provider. kb Signatures: Dispatcher [employer] EDMS Leta Daigle, EMERGENCY MEDICAL SERVICES COORDINATOR-C EMERGENCY MEDICAL SERVICES COORDINATOR-CkBeth Mireles rg4 Mariel Hylton RN RN kr3 Pau Tolliver, RN RN ko1
--- NOTE | 2023-01-19 19:50 | EDPHYS ---
Physician Documentation [facility] Name: John Moreno Age: 67 yrs Sex: Male : 1955 Arrival Date: 01/19/2023 Time: 17:56 Bed 8 Private MD: Piyush [facility] ED Physician Cooper Larios HPI: 01/19 19:49 This 67 yrs old Male presents to ER via Ambulatory with complaints of Chest kb Pain. 19:49 The patient or guardian reports chest pain that is located primarily in the substernal kb area. Onset: 2 hour(s) ago. The pain does not radiate. Associated signs and symptoms: The patient has no apparent associated signs or symptoms. The chest pain is described as a pressure. Duration: The patient or guardian reports a single episode, that is still ongoing. Modifying factors: The symptoms are alleviated by nothing. the symptoms are aggravated by nothing. Severity of pain: At its worst the pain was mild moderate in the emergency department the pain is unchanged. The patient has not experienced similar symptoms in the past. The patient has not recently seen a physician. Historical: - Allergies: 18:03 NKDA; kr3 - PMHx: 18:03 coronary atherosclerosis; Hyperlipidemia; Hypertension; kr3 - PSHx: 18:03 cardiac bypass; heart cath; stents in legs; kr3 - Immunization history:: Adult Immunizations not up to date. - Social history:: Smoking status: Patient/guardian denies using tobacco, the patient reports quitting approximately 2.5 years ago. ROS: 18:48 Constitutional: Negative for fever, chills, and weight loss. kb 18:48 Cardiovascular: Positive for chest pain, Negative for edema, orthopnea, palpitations, paroxysmal nocturnal dyspnea. 18:48 All other systems are negative. Exam: 18:47 Constitutional: This is a well developed, well nourished patient who is awake, alert, kb and in no acute distress. Head/Face: Normocephalic, atraumatic. ENT: Moist Mucous membranes Cardiovascular: Regular rate and rhythm with a normal S1 and S2. No gallops, murmurs, or rubs. No pulse deficits. Respiratory: Respirations even and unlabored. No increased work of breathing. Talking in full sentences Abdomen/GI: Soft, non-tender. No distention Skin: Warm, dry with normal turgor. Normal color. MS/ Extremity: Pulses equal, no cyanosis. Neurovascular intact. Full, normal range of motion. Neuro: Awake and alert, GCS 15, oriented to person, place, time, and situation. Moves all extremities. Normal gait. 18:47 ECG was reviewed by the Attending Physician. Vital Signs: 18:00 BP 164 / 85; Pulse 78; Resp 17; Temp 98.1(TE); Pulse Ox 99% on R/A; Weight 73.48 kg; kr3 Height 5 ft. 4 in. ; Pain 5/10; 18:30 BP 128 / 75; Pulse 72; Resp 18; Pulse Ox 100% ; ko1 19:28 BP 135 / 76; Pulse 67; Resp 18 S; Pulse Ox 100% on R/A; ko1 18:00 Body Mass Index 27.81 (73.48 kg, 162.56 cm) kr3 18:00 Pain Scale: Adult kr3 MDM: 18:04 Patient medically screened. kb 18:48 Data reviewed: vital signs, nurses notes. kb 19:10 The patient was not given aspirin in the Emergency Department. Patient reports taking aspirin within the past 24 hours. 19:43 Differential diagnosis: abnormal EKG, acute myocardial infarction, coronary artery kb disease cholecystitis, Cholelithiasis. Consideration of Admission/Observation Patient was admitted/placed on observation. Management of patient was discussed with the following: Hospitalist: CRISTINA Steiner who accepts pt for admission under Dr Bell. Counseling: I had a detailed discussion with the patient and/or guardian regarding: the historical points, exam findings, and any diagnostic results supporting the discharge/admit diagnosis, lab results, radiology results, the need for further work-up and treatment in the hospital. 19:47 ED course: Patient is a 67-year-old male with a history of hyperlipidemia, kb hypertension, CVA, CABG who presents with substernal chest pressure that started 2 to 3 hours prior to arrival. On exam patient has clear breath sounds bilaterally, respirations even and unlabored, heart sounds normal, no abdominal tenderness. Patient is nontoxic in appearance and in no distress. Heart score 5. Will admit for observation.. 01/19 18:05 Order name: EKG; Complete Time: 18:05 kb 01/19 18:05 Order name: Cardiac monitoring; Complete Time: 18:23 kb 03/16 18:05 Order name: EKG - Nurse/Tech; Complete Time: 18:23 kb 01/19 18:05 Order name: IV Saline Lock; Complete Time: 18:23 kb 01/19 18:05 Order name: Labs collected and sent; Complete Time: 18:23 kb 01/19 18:05 Order name: O2 Per Protocol; Complete Time: 18:23 kb 01/19 18:05 Order name: O2 Sat Monitoring; Complete Time: 18:23 kb 01/19 18:05 Order name: CBC with Diff; Complete Time: 18:39 kb 01/19 18:05 Order name: PT-INR; Complete Time: 18:39 kb 01/19 18:05 Order name: CMP; Complete Time: 18:56 kb 01/19 18:05 Order name: Magnesium; Complete Time: 18:56 kb 01/19 18:05 Order name: NT PRO-BNP; Complete Time: 18:56 kb 01/19 18:05 Order name: Troponin HS; Complete Time: 18:56 kb 01/19 18:05 Order name: XRAY Chest (1 view); Complete Time: 18:56 kb 01/19 19:07 Order name: Lipase; Complete Time: 19:22 ph 01/19 19:03 Order name: US Abdomen Limited kb EC:47 Rate is 75 beats/min. Rhythm is regular. QRS [place] is Normal. AL interval is normal at kb 156 msec. QRS interval is normal at 84 msec. QT interval is normal at 381 msec. Administered Medications: No medications were administered Disposition Summary: 01/19/23 19:50 Hospitalization Ordered Hospitalization Status: Observation Provider: Derik Bell Location: Telemetry/MedSurg (observation) kb Condition: Stable kb Problem: new kb Symptoms: are unchanged kb Bed/Room Type: Standard Room Assignment: Diagnosis - Chest pain, unspecified kb Forms: - Medication Reconciliation Form kb - SBAR form kb Signatures: Dispatcher [employer] Leta Gary FNP-C FNP-Mariel Oliveros, RN RN kr3
[2023-01-19 20:21] LABS: SARS-CoV-2 Antigen Rapid Res Negative (Negative)
--- NOTE | 2023-01-19 20:32 | P.HP ---
Certification for Inpatient Patient admitted to: Observation With expected LOS: <2 Midnights Patient will require the following post-hospital care: None Practitioner: I am a practitioner with admitting privileges, knowledge of patient current condition, hospital course, and medical plan of care. Services: Services provided to patient in accordance with Admission requirements found in Title 42 Section 412.3 of the Code of Federal Regulations Patient History Date of Service: 01/19/23 Reason for admission: Chest pain History of Present Illness: 67-year-old male with history of CAD status post CABG 2020, hypertension, hyperlipidemia, PAD presents the emergency department with complaint of chest pain. He reports the pain began around 3 to 4 PM after eating some chicken, pain is intermittent in nature, he cannot describe it further than stating there is "discomfort". He has no abdominal tenderness on exam, his labs were unremarkable including initial high-sensitivity troponin, EKG without STEMI criteria present. He has had previous HIDA scan in June of last year he reports his gallbladder works at "29%". He was told he may have to have his gallbladder out in the past. Ultrasound was negative for acute cholecystitis or cholelithiasis. ED provider wishes to admit for ACS R/O Allergies No Known Allergies Allergy (Verified 08/30/22 10:16) Home Medications: Amlodipine Besylate 10 mg PO DAILY 08/30/22 Aspirin [Vazalore] 81 mg PO DAILY 08/30/22 Atorvastatin Calcium [Lipitor] 40 mg PO BEDTIME 08/30/22 Bifidobacterium Infantis [Align] 4 mg PO DAILY 08/30/22 Losartan Potassium 100 mg PO DAILY 08/30/22 Metoprolol Succinate [Toprol Xl] 25 mg PO DAILY 08/30/22 Mirtazapine 30 mg PO BEDTIME 08/30/22 Pantoprazole Sodium [Protonix] 20 mg PO DAILY 08/30/22 Polyethylene Glycol 3350 [Miralax] 17 gm PO BEDTIME 08/30/22 Psyllium Husk (with Sugar) [Metamucil Packet] 3.4 gm PO BEDTIME 08/30/22 - Past Medical/Surgical History -: Hypertension -: Hyperlipidemia -: GERD -: Anxiety -: Tobacco abuse -: Alcohol use -: CAD with CABG -: PAD -: CABG 2020 -: Stents to lower extremities Psychosocial/ Personal History: Patient is - Social History Smoking Status: Never smoker Alcohol use: Yes CD- Drugs: No Caffeine use: Yes Place of Residence: Home Review of Systems 10-point ROS is otherwise unremarkable Cardiovascular: Chest Pain Physical Examination - Physical Exam General: Alert, In no apparent distress, Oriented x3 HEENT: Atraumatic, PERRLA, Mucous membr. moist/pink, EOMI, Sclerae nonicteric Neck: Supple, 2+ carotid pulse no bruit, No LAD, Without JVD or thyroid abnormality Respiratory: Clear to auscultation bilaterally, Normal air movement Cardiovascular: Regular rate/rhythm, Normal S1 S2 Capillary refill: <2 Seconds Gastrointestinal: Normal bowel sounds, No tenderness Musculoskeletal: No tenderness Integumentary: No rashes Neurological: Normal speech, Normal strength at 5/5 x4 extr, Normal tone, Normal affect - Studies Laboratory Data (last 24 hrs) 01/19/23 18:15: Lipase 41 01/19/23 18:15: Sodium 138, Potassium 4.4, BUN 13, Creatinine 1.10, Glucose 127 H, Magnesium 2.2, Total Bilirubin 0.5, AST 14 L, ALT 23, Alkaline Phosphatase 89 01/19/23 18:15: WBC 9.30, Hgb 13.2 L, Hct 39.9, Plt Count 136 L 01/19/23 18:05: PT 10.8, INR 0.98 Assessment and Plan - Plan Assessment: Chest pain rule out ACShistory of CAD with previous CABG 2020 Hypertension Hyperlipidemia PAD GERD Plan: Chest pain rule out ACShistory of CAD with previous CABG 2020 Monitor on telemetry, trend troponins, cardiology consult in place. Possibly related to GERD versus biliary colic. continue protonix, PRN tums, may need further OP eval for biliary colic. No tenderness on exam, LFTs/lipase WNL, US unremarkable. Hypertension Hyperlipidemia PAD GERD Home meds continued. DVT PPX:Lovenox Code status: Full Discharge Plan: Home Plan to discharge in: 24 Hours - Advance Directives Does patient have a Living Will: No Does patient have a Durable POA for Healthcare: No - Code Status/Comfort Care Code Status Assessed: Yes (Full code) Critical Care: No Time Spent Managing Pts Care (In Minutes): 70
--- NOTE | 2023-01-19 20:40 | RAD REPORT ---
EXAM DESCRIPTION: US - Abdomen Exam Limited - 01/19/2023 7:29 pm CLINICAL HISTORY: ABD PAIN COMPARISON: Small Bowel Series dated 09/21/2022 TECHNIQUE: Sonographic grayscale and color flow images of the right upper quadrant were obtained. FINDINGS: The gallbladder demonstrates no gallstones. No pericholecystic fluid or gallbladder wall t hickening. The common bile duct is normal measuring 3 mm. The liver demonstrates no findings of intrahepatic biliary dilatation. IMPRESSION: No acute abnormalities on right upper quadrant ultrasound.
[2023-01-19] MEDS ORDERED: clonazePAM 0.5 MG TAB PO PRN (21:42)
[2023-01-19] MEDS ORDERED: MORPHINE 2 MG/ML SYR IV PRN (21:42)
[2023-01-19] MEDS ORDERED: MIRTAZAPINE 15 MG TAB PO SCH (21:42)
[2023-01-19] MEDS ORDERED: ONDANSETRON 4 MG/2 ML VIAL IV PRN (21:42)
[2023-01-19] MEDS ORDERED: CALCIUM CARBONATE CHEW 500MG TAB PO PRN (21:42)
[2023-01-19 22:38] VITALS: BMI 27.8
[2023-01-20 05:06] LABS: Hematocrit 39.3 % (39.6-49.0); Lymphocytes % 32.3 % (15.3-44.8); MPV 10.7 fL (7.6-11.3); RBC Red Blood Cell Count 4.22 M/uL (4.33-5.43)
[2023-01-20 05:38] LABS: Potassium 3.6 mEq/L (3.5-5.1); Troponin High Sensitivity 4.2 pg/mL (<58.9)
[2023-01-20] MEDS ORDERED: METOPROLOL TAR 25 MG TAB PO SCH (06:00)
[2023-01-20] MEDS ORDERED: PANTOPRAZOLE 40MG TABLET PO SCH (06:30)
--- NOTE | 2023-01-20 07:07 | P.PN ---
Date of Service: 01/20/23 Subjective: ROS: 10 point ROS as noted above, otherwise negative Physical Exam: GEN: Alert, oriented, NAD HEENT: Normal conjunctiva, sclera anicteric CV: Regular rate and rhythm, no edema Pulm: Nonlabored respirations on room air ABD: Soft, nontender, nondistended MSK: No joint tenderness Integumentary: No rashes Neuro: Normal speech, normal affect Problem List: Chest pain rule out ACShistory of CAD with previous CABG 2020 Hypertension Hyperlipidemia PAD GERD Cardiology Consulted trend troponins; monitor telemetry possibly related to GERD versus biliary colic; may need further OP eval continue protonix; tums VTE: Lovenox Code: Full Dispo: Home ~24 hours
[2023-01-20] MEDS ORDERED: AMLODIPINE 10 MG TAB PO SCH (09:00)
[2023-01-20] MEDS ORDERED: LOSARTAN POTASSIUM 50 MG TABLET PO SCH (09:00)
[2023-01-20] MEDS ORDERED: ENOXAPARIN 40 MG/0.4 ML SQ SCH (09:00)
[2023-01-20] MEDS ORDERED: ASPIRIN EC 81 MG TAB PO SCH (09:00)
[2023-01-20 11:25] VITALS: O2SAT 97
--- NOTE | 2023-01-20 11:44 | EKG ---
Test Date: 2023-01-19 Test Time: 18:12:01 Security Compliance Engineer: ANA MEASUREMENT RESULTS: Intervals: Rate: 75 MA: 156 QRSD: 84 QT: 342 QTc: 381 [place]: P: 47 MA: 156 QRS: 21 T: 18 INTERPRETIVE STATEMENTS: Normal sinus rhythm Inferior infarct, age undetermined Abnormal ECG Compared to ECG 08/30/2022 10:33:07 Myocardial infarct finding now present Electronically Signed On 01-20-23 11:44:05 CDT by Christiano Miranda
[2023-01-20 11:52] VITALS: BP 131/62; TEMP 98.5
--- NOTE | 2023-01-20 14:18 | P.DS ---
Admission Date: 01/19/23 Discharge Date: 01/20/23 Disposition: DC HOME/HOME HEALTH CARE Reason for Admission: Chest pain Consultations: Cardiology - Dr. Miranda Brief History of Present Illness: 67-year-old male with history of CAD status post CABG 2020, hypertension, hyperlipidemia, PAD presents the emergency department with complaint of chest pain. He reports the pain began around 3 to 4 PM after eating some chicken, pain is intermittent in nature, he cannot describe it further than stating there is "discomfort". He has no abdominal tenderness on exam, his labs were unremarkable including initial high-sensitivity troponin, EKG without STEMI criteria present. He has had previous HIDA scan in June of last year he reports his gallbladder works at "29%". He was told he may have to have his gallbladder out in the past. Ultrasound was negative for acute cholecystitis or cholelithiasis. ED provider wishes to admit for ACS R/O Hospital Course: Problem List: Biliary dyskinesia history of CAD with previous CABG 2020 Hypertension Hyperlipidemia PAD GERD Patient presented with abdominal discomfort with some involvement into his left chest as well. EKG and troponins were without acute ischemic changes / stable. Cardiology was consulted, recommended no further inpatient workup/evaluation needed at this time. Follow up with Cardiology in the next 1-2 weeks to discuss outpatient stress testing if needed. Suspect symptoms are secondary to gallbladder dyskinesia. Discomfort similar to prior episodes, related to eating, and recent HIDA reportedly noted 29% ejection of gallbladder. I spoke with his surgeon, Dr. Finley, who he saw a few months ago for this issue. Dr. Finley agreed if improved and tolerates liquid/soft diet, stable for discharge home. To see Dr. Finley on Monday at 4pm - to further discuss and schedule surgery to remove gallbladder no new prescriptions on discharge / no change in meds. Vital Signs/Physical Exam: Temp Pulse Resp BP Pulse Ox 98.5 F 68 16 131/62 97 01/20/23 11:52 01/20/23 11:52 01/20/23 11:52 01/20/23 11:52 01/20/23 11:52 Physical Exam: GEN: Alert, oriented, NAD HEENT: Normal conjunctiva, sclera anicteric CV: Regular rate and rhythm, no edema Pulm: Nonlabored respirations on room air ABD: Soft, nontender, nondistended Neuro: Normal speech, normal affect Laboratory Data at Discharge: WBC 9.30 thou/uL (4.3-10.9) 01/20/23 04:09 Hgb 12.8 g/dL (13.6-17.9) L 01/20/23 04:09 Hct 39.3 % (39.6-49.0) L 01/20/23 04:09 Plt Count 133 thou/uL (152-406) L 01/20/23 04:09 PT 10.8 SECONDS (9.5-12.5) 01/19/23 18:05 INR 0.98 01/19/23 18:05 Sodium 140 mEq/L (136-145) 01/20/23 04:09 Potassium 3.6 mEq/L (3.5-5.1) D 01/20/23 04:09 BUN 14 mg/dL (7-18) 01/20/23 04:09 Creatinine 0.82 mg/dL (0.70-1.30) 01/20/23 04:09 Glucose 98 mg/dL (74-106) 01/20/23 04:09 Magnesium 2.2 mg/dL (1.6-2.4) 01/19/23 18:15 Total Bilirubin 0.5 mg/dL (0.2-1.0) 01/19/23 18:15 AST 14 U/L (15-37) L 01/19/23 18:15 ALT 23 U/L (16-61) 01/19/23 18:15 Alkaline Phosphatase 89 U/L (45-117) 01/19/23 18:15 Triglycerides 74 mg/dL (<150) 01/20/23 04:09 Cholesterol 96 mg/dL (<200) 01/20/23 04:09 HDL Cholesterol 41 mg/dL (40-60) 01/20/23 04:09 Cholesterol/HDL Ratio 2.34 01/20/23 04:09 Lipase 41 U/L (13-75) 01/19/23 18:15 Home Medications: Amlodipine Besylate 5 mg PO DAILY 08/30/22 Aspirin [Vazalore] 81 mg PO DAILY 08/30/22 Atorvastatin Calcium [Lipitor] 40 mg PO BEDTIME 08/30/22 Bifidobacterium Infantis [Align] 4 mg PO DAILY 08/30/22 Losartan Potassium 50 mg PO DAILY 08/30/22 Metoprolol Succinate [Toprol Xl] 25 mg PO DAILY 08/30/22 Mirtazapine 30 mg PO BEDTIME 08/30/22 Pantoprazole Sodium [Protonix] 20 mg PO DAILY 08/30/22 Polyethylene Glycol 3350 [Miralax] 17 gm PO BEDTIME 08/30/22 Psyllium Husk (with Sugar) [Metamucil Packet] 3.4 gm PO BEDTIME 08/30/22 Physician Discharge Instructions: Patient presented with abdominal discomfort with some involvement into his left chest as well. EKG and troponins were without acute ischemic changes / stable. Cardiology was consulted, recommended no further inpatient workup/evaluation needed at this time. Follow up with Cardiology in the next 1-2 weeks to discuss outpatient stress testing if needed. Suspect symptoms are secondary to gallbladder dyskinesia. Discomfort similar to prior episodes, related to eating, and recent HIDA reportedly noted 29% ejection of gallbladder. I spoke with his surgeon, Dr. Finley, who he saw a few months ago for this issue. Dr. Finley agreed if improved and tolerates liquid/soft diet, stable for discharge home. To see Dr. Finley on Monday at 4pm - to further discuss and schedule surgery to remove gallbladder no new prescriptions on discharge / no change in meds. Followup: Joss Finley MD [ACTIVE - CAN ADMIT] - 01/25/23 4:00 pm (Call for appointment.) Edilson Pickett DO [Primary Care Provider] - 1-2 Weeks (Call for appointment.) Christiano Miranda MD [ACTIVE - CAN ADMIT] - 1-2 Weeks (Call for appointment.) Time spent managing pt's care (in minutes): 45
--- NOTE | 2023-01-20 15:49 | CON ---
Date of Consultation: 01/20/2023 Reason For Consultation: Chest pain. History Of Present Illness: A 67-year-old male with history of coronary artery disease status post C ABG 2020, dyslipidemia, hypertension, peripheral vascular disease. He follows with [facility] in [facility]. Presented with chest discomfort after he ate some late lunch yesterday afternoon. Pain is i ntermittent, and he describes it as a discomfort. No other complaints. He was admitted for observat ion. Cardiac enzymes have been negative, and he has been chest pain free, but he said his stomach is upset. He does have some chronic gallbladder disease. Past Medical History: As outlined above in the HPI. Medications: Refer reconciliation sheet for detailed list. Allergies: NO KNOWN DRUG ALLERGIES. Family History: No premature coronary artery disease or cancer. Social History: Does not smoke or drink. Does not use any drugs. Review of Systems: All systems reviewed and they were negative except for mentioned in HPI. Physical Examination: Vital Signs: Reviewed. Head and Neck: Pupils are equal, reactive to light. Intact eye movements. No JVD. No cervical lym phadenopathy. Neck is supple. Thyroid is not enlarged. Lungs: Clear to auscultation bilaterally. No rhonchi, wheezing, or crackles. No accessory muscle u se. Heart: Regular rate and rhythm. No extra sounds. Abdomen: Soft, nontender. Bowel sounds positive. No organomegaly. No masses or hernia. No rigidi ty or rebound. Extremities: No edema, clubbing, cyanosis. Intact pulses. Skin: No rash. Neurologic: Alert, awake, oriented x3. No acute focal deficits appreciated. Investigations: BUN 14, creatinine 0.82. Troponin x3 are negative. LDL cholesterol is 40. Hemoglo bin is 12.8. Assessment/recommendation: 1.Chest pain. It is atypical. Negative cardiac enzymes. No further cardiac workup as an inpatient is required. The patient can follow up with his primary [facility] and if no recent stress test w as done to obtain 1 and as well as an echo. From cardiac standpoint, the patient can be released. 2.Hypertension. Blood pressure is controlled. 3.Dyslipidemia. Lipids are at goal. Continue current management. Cardiology will sign off and hav e the patient follow up on an outpatient basis early next week. SR/MODL Voice ID: [id number] Report ID: [id number]
== END 2023-01-20 15:10 | disposition home health service (06) ==
LOC: ER 17:53 → ERHOLD 20:18 → 4TH 21:36
PROVIDERS: ADMIT Hospitalist; ATTEND Hospitalist
DX: R07.9 Chest pain, unspecified (principal); K82.8 Other specified diseases of gallbladder; I25.10 Atherosclerotic heart disease of native coronary artery without angina pectoris; I10 Essential (primary) hypertension; E78.5 Hyperlipidemia, unspecified; I73.9 Peripheral vascular disease, unspecified; K21.9 Gastro-esophageal reflux disease without esophagitis; Z95.1 Presence of aortocoronary bypass graft; Z20.822 Contact with and (suspected) exposure to COVID-19
CPT/HCPCS: 93005; 85025 ×2; 80048; 36415; 83735; 85610; 80061; 84484 ×3; 83690; 80053; 83880; 71045; 76705; 99285; 87811; J1650; G0378

== ENCOUNTER 2023-07-07 17:19 | Emergency (ER) | payer OTHER ==
--- OUTSIDE RECORDS SUMMARY | 2023-07-07 17:49 | XMS REPORT | Continuity of Care Document ---
:1955 Author Organization [facility] t Address [address] [place] [address] Care Team Providers Name Role Phone Pcp, Patient Does Not Have A Primary Care Physician [id number] Edilson Pickett Attending Clinician Unavailable Rj Henry Attending Clinician Unavailable HAI CALDERON Attending Clinician Unavailable LADONNA JOYNER Attending Clinician Unavailable AAKASH DE LA CRUZ Attending Clinician Unavailable Doctor Unassigned, [place] Attending Clinician Unavailable Aleksander Martinez Attending Clinician GREG WHITE Attending Clinician Unavailable Mookie Matthew Attending Clinician MOOKIE MATTHEW Attending Clinician Unavailable Carlos Valdivia Attending Clinician Angelica Odom MD Attending Clinician ANGELICA ODOM Attending Clinician Unavailable Karen Vela MD Attending Clinician Todd Agudelo Attending Clinician Roscoe Vidal MD Attending Clinician Hung EVANS, Roseline Attending Clinician ROSELINE LANDRY Attending Clinician Unavailable CHICO PARRISH Attending Clinician Unavailable ARIK DENNISON Attending Clinician Unavailable CARLOS VALDIVIA Attending Clinician Unavailable KATYH SWEENEY Attending Clinician Unavailable FALLON SOLIMAN Attending Clinician Unavailable HAI CALDERON Admitting Clinician Unavailable LADONNA JOYNER Admitting Clinician Unavailable AAKASH DE LA CRUZ Admitting Clinician Unavailable DONNY MILLS Admitting Clinician Unavailable KATHY SWEENEY Admitting Clinician Unavailable FALLON SOLIMAN Admitting Clinician Unavailable Payers Payer Name Policy Type Policy Number Effective Date Expiration Date S ricky MEDICARE PART A [id number] 2021 AND B 00:00:00 JANET [id number] 2019 SUPERIOR 00:00:00 [place] [id number] 2021 [facility] INSURANCE 00:00:00 - [facility] MEDICARE MB [id number] 2021 [facility] NOVITAS 00:00:00 - [facility] MEDICARE MB [id number] 2021 [facility] [place]OVITAS 00:00:00 - [place] [address] [id number] 2021 [facility] INSURANCE 00:00:00 - [place] [address] [id number] 2021 [facility] INSURANCE 00:00:00 - [facility] MEDICARE MB [id number] 2021 [facility] NOVITAS 00:00:00 - [facility] C1 [id number] 2021 [facility] INSURANCE 00:00:00 - [facility] MEDICARE MB [id number] 2021 [facility] NOVITAS 00:00:00 - [facility] C1 [id number] 2021 [facility] INSURANCE 00:00:00 - [facility] MEDICARE MB [id number] 2021 [facility] NOVITAS 00:00:00 - [facility] MEDICARE MB [id number] 2021 [facility] NOVITAS 00:00:00 - [facility] C1 [id number] 2021 [facility] INSURANCE 00:00:00 - [facility] C1 [id number] [facility] INSURANCE - [facility] MEDICARE MB [id number] [facility] NOVITAS - [facility] C1 [id number] [facility] INSURANCE - [facility] MEDICARE MB [id number] [facility] NOVITAS - [facility] Problems Condition Condition Condition Status Onset Resolution Last Treating Co mments Source Name Details Category Date Date Treatment Clinician Date LAPAROSCOP LAPAROSCO Diagnosis Active 2022-09-13 Memoria IC PIC 07-25 05:15:00 l CHOLCYSTEC CHOLCYSTEC 00:00: Aden KUMAR /Shay KUMAR /C 00 LIVER BIO LIVER BIO Active 07/25/2022 Jocelyn Campbell UNK UNK Diagnosis Active 2022-08-12 Mem oria Active 07-25 10:27:00 l 07/25/2022 00:00: Barrington Campbell DX: DX: Diagnosis Active 2022-06-24 Mem oria R14.0=ACUT R14.0=ACUT 06-14 10:12:00 l E ABDOMEN E ABDOMEN 00:00: Herm regine K59.00=CON K59.00=CON 00 STIPA STIPA Active 06/14/2022 [facility] S/P CABG x S/P CABG x Disease Active [facility] 1 (Yumiko 1 ([facility]um[facility] 7[facility]08 [facility] 05/13[facility] 05[facility]13/21[facility] 00:[facility] 00 Center Chest pain Chest pain Disease Active [facility] CAD CAD Disease Active [facility] (coronary (coronary 6-28 [facility] artery artery 00:00: Medical disease) disease) 00 Center PAD PAD Disease Recurre [facility] (periphera (periphera nce 3-05 Jackeline kes l artery l artery 00:00: Medica l disease) disease) 00 Center Complicate Complicate Disease Active [facility] d migraine d migraine 5-04 Jackeline kes 00:00: Medical 00 Center TIA TIA Disease Active [facility] (transient (transient 5-03 Jackeline kes ischemic ischemic 00:00: Medica l attack) attack) 00 Center Stroke Stroke Disease Recurre [facility] (cerebrum) (cerebrum) nce 4-27 Jackeline kes 00:00: Medical 00 Center Bilateral Bilateral Problem Active 2023-03-17 Memoria stenosis stenosis 14:28:07 l of carotid of carotid He rmann arteries arteries Active Problem 03/17/2023 [facility] OTHER OTHER Diagnosis Active 2022-09-13 Mem oria SPECIFIED SPECIFIED 05:15:00 l DISEASES DISEASES Barrington n OF OF MICKE JOSE L R R Active [facility] Arterioscl Arteriosc Problem Active 2023-03-17 Memoria erotic lerotic 14:28:07 l vascular vascular Barrington n disease disease (disorder) (disorder) Active Problem 03/17/2023 Medical Group,[facility] her Neuro, Sapna,[facility], [facility] Gastroesop Gastroeso Problem Active 2023-03-17 Memoria hageal phageal 14:28:07 l reflux reflux Adrian disease disease (disorder) (disorder) Active Problem 03/17/2023 Medical Group,[facility] her Neuro,[facility], [facility], [facility] Headache Headache Problem Active 2023-03-17 Memoria (finding) (finding) 14:28:07 l Active [place] Problem 03/17/2023 Medical Group,[facility] her Neuro,[facility], [facility], [facility] Hyperlipid Hyperlipi Problem Active 2023-03-17 Memoria emia demia 14:28:07 l (disorder) (disorder) He rmann Active Problem 03/17/2023 Medical Group,[facility] her Neuro,[facility], [facility], [facility] Hypertensi Hypertens Problem Active 2023-03-17 Memoria ve dustin 14:28:07 l disorder, disorder, Herm regine systemic systemic arterial arterial (disorder) (disorder) Active Problem 03/17/2023 Medical Group,[facility] her Neuro,[facility], [facility], [facility] Lumbar Lumbar Problem Active 2023-03-17 [place] enriqueta spondylosi spondylosi 14:28:07 l s s Adrian (disorder) (disorder) Active Problem 03/17/2023 Medical Group,[facility] her Neuro,[facility], [facility], [facility] Numbness Numbness Problem Active 2023-03-17 Memoria of foot of foot 14:28:07 l (finding) (finding) Herm regine Active Problem 03/17/2023 Medical Group,[facility] her Neuro,[facility], [facility], [facility] Pain in Pain in Problem Active 2023-03-17 Me moria lower limb lower limb 14:28:07 l (finding) (finding) Herm regine Active Problem 03/17/2023 Medical Group,[facility] her Neuro,[facility], [facility], [facility] Paresthesi Paresthes Problem Active 2023-03-17 Memoria a ia 14:28:07 l (finding) (finding) Herm regine Active Problem 03/17/2023 Medical Group,[facility] her Neuro,[facility],M [facility], [facility] Peripheral Periphera Problem Active 2023-03-17 Memoria nerve l nerve 14:28:07 l disease disease Adrian (disorder) (disorder) Active Problem 03/17/2023 Medical Group,Misc her Neuro, S[place]na,[facility], [facility] R10.84 - R10.84 - Diagnosis Active 2021-12-23 Memoria GENERALIZE GENERALIZE 21:12:00 l D D Adrian ABDOMINAL ABDOMINAL PAIN R14. PAIN R14. 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:28:07 l syndrome syndrome Barrington n (disorder) (disorder) Active Problem 03/17/2023 [facility] No known No known Disease Metho di active active st problems problems Hospit a l [id number] Lumbar Problem Common radicular Spirit pain - [facility] [id number] Pain in Problem Comm on [id number] left Spirit shoulder - [facility] [id number] Low back Problem Comm on pain [facility] [id number] Coronary Problem Comm on artery Spirit disease of - CHI bypass graft of [facility] tunica-biloxi [facility] heart with Center stable angina pectoris [id number] Nonalcohol Problem Co mmon ic fatty Spirit liver - CHI disease [facility] [id number] Constipati Problem Com mon on, Spirit unspecifie - CHI d constipati [facility] [id number] Presence Problem Comm on of Spirit arterial - CHI stent [facility] [id number] Essential Problem Comm on (primary) Spirit hypertensi - CHI on [facility] [id number] Moderate Problem Commo n major Spirit depression - CHI , single [facility] [id number] GERD Problem Common without Spirit esophagiti - CHI s [facility] [id number] Primary Problem Common insomnia [facility] [id number] BHAVANI Problem Common (generaliz Spirit ed anxiety - CHI disorder) [facility] [id number] Mixed Problem Common hyperlipid Spirit emia - CH[facility] [id number] Benign Problem Common prostatic Spirit hyperplasi - CHI a with [facility] urinary Medical tract Center symptoms, symptom details unspecifie d [id number] Burning Problem Common sensation Spirit - [facility] [id number] Scrotal Problem Common lesion Spirit - [facility] [id number] Lower Problem Common urinary Spirit tract - CHI symptoms (LUTS) [facility] [id number] Adult BMI Problem Com mon 30.0-30.9 Spirit kg/sq m - [facility] [id number] 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 [facility] [id number] 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), lumbosacra [facility] [id number] Scrotal Problem Common pain Spirit - CH[facility] [id number] Primary Problem Commo n osteoarthr Spirit itis of - CHI right hip [facility] [id number] Primary Problem Comm on osteoarthr Spirit itis of - CHI left hip [facility] [id number] Osteoarthr Problem C ommon [id number] itis of Spirit right hip, - CHI unspecifie [facility] osteoarthr Medica l itis type Center Full Complete Problem Common thickness tear of Spirit rotator left - [facility] d whether Center traumatic [id number] Nontraumat Problem C ommon 878654 ic Spirit complete - CHI tear of left [facility] rotator Medical cuff Center [id number] Other Problem Common chronic Spirit pain - CH[facility] [id number] Nontraumat Problem Co mmon ic Spirit incomplete - CHI tear of left [facility] rotator Medical cuff Center Acute Acute Disease Active [facility] postoperat postoperat Jackeline kes dustin pain dustin pain Medica l Center Atelectasi Atelectasi Disease Active C HI [facility] Allergies, Adverse Reactions, Alerts Allergy Allergy Status Severity Reaction(s) Onset Inactive Treating Comm ents Source Name Type Date Date Clinician NO KNOWN Allergy Active [facility] Family History Family Member Diagnosis Comments Start Date Stop Date Source Natural father Diabetes [facility] Natural mother Diabetes [facility] Social History Social Habit Start Date Stop Date Quantity Comments Source Gender identity 2022-04-18 Identifies as [facility] 22:33:33 male gender Hospital (finding) History of Tobacco [facility] - Use [facility] Sexual orientation [facility] History SDOH [facility] Alcohol Std Drinks [facility] History SDOH [facility] Alcohol Binge Medical Tere ter Social History 2022-08-08 2022-08-08 [facility] [place] 20:19:15 20:19:15 Exposure to 2022-04-17 2022-04-27 Not sure University SARS-CoV-2 (event) 00:00:00 14:08:00 [facility] Alcohol intake 2021-07-07 2021-07-07 Ex-drinker [facility] 00:00:00 00:00:00 (finding) [facility] Cigarettes smoked 2021-05-03 2021-05-[address] [facility] [address] [place] current (pack per 00:00:00 00:00:00 Medical Center day) - Reported Cigarette 2021-05-03 2021-05-[address] [facility] [address] [place] pack-years 00:00:00 00:00:00 [facility] History SDOH 2019-03-03 2019-03-[address] [facility] Alcohol Frequency 00:00:00 00:00:00 [facility] Alcohol Comment 2019-03-02 2019-03-02 quit [address] [facility] 00:00:00 00:00:00 [facility] Tobacco use and 2017-09-25 2017-09-25 Smokeless tobacco Un iversity of exposure 00:00:00 00:00:00 non-user [facility] Sex Ass[birth year] M [facility] Jackeline belles 00:00:00 00:00:00 [facility] Smoking Status Start Date Stop Date Source Tobacco smoking [facility] consumption unknown Tobacco smoking status 2023-03-14 19:05:59 2023-03-14 Radha Campbell 19:05:59 Never Smoker [facility] - [facility] nter Smokes tobacco daily 2017-09-25 00:00:00 [facility] Medications Ordered Filled Start Stop Current Ordering Indication Dosage Frequency Signature Comments Components Source Medication Medication Date Date Medication? Clinician (SIG) Name Name Probiotic 2021-11 Yes PO, Daily, Me moria Formula 0-03 0 l 20:18: Refill(s) 2021-11 Yes PO, Daily, Me moria Formula 0-03 0 l 20:18: Refill(s) 2021-11 Yes PO, Daily, Me moria Formula 0-03 0 l 20:18: Refill(s) 2021-11 Yes PO, Daily, Me moria Formula 0-03 0 l 20:18: Refill(s) 2021-11 Yes PO, Daily, Me moria Formula 0-03 0 l 20:18: Refill(s) 2021-11 Yes PO, Daily, Me moria Formula 0-03 0 l 20:18: Refill(s) 2021-11 Yes PO, Daily, Me moria Formula 0-03 0 l 20:18: Refill(s) 2021-11 Yes PO, Daily, Me moria Formula 0-03 0 l 20:18: Refill(s) Probiotic 2021-11 Yes PO, Daily, Me moria Formula 0-03 0 l 20:18: Refill(s) 2021-11 Yes PO, Daily, Me moria Formula 0-03 0 l 20:18: Refill(s) Probiotic 2021-11 Yes PO, Daily, Me moria Formula 0-03 0 l 20:18: Refill(s) 2021-11 Yes PO, Daily, Me moria Formula 0-03 0 l 20:18: Refill(s) Probiotic 2021-11 Yes PO, Daily, Me moria Formula 0-03 0 l 20:18: Refill(s) 2021-11 Yes PO, Daily, Me moria Formula 0-03 0 l 20:18: Refill(s) 2021-11 Yes PO, Daily, Me moria Formula 0-03 0 l 20:18: Refill(s) 2021-11 Yes PO, Daily, Me moria Formula [...] moria Formula 0-03 0 l 20:18: Refill(s) PREGABALIN No 50 50MG CAP 07-12 00:00: 00 Topamax 25 No 25 mg = 1 Me moria mg oral 8-23 tab, PO, l tablet 23:16: Bedtime, # Francesca nn 00 90 tab, 1 Refill(s), Pharmacy: [id number], 160.02, cm, 06/02/22 14:39:00 CDT, Height, 81.818, kg, 06/02/22 14:39:00 CDT, Weight Topamax 25 No 25 mg = 1 Me moria mg oral 8-23 tab, PO, l tablet 23:16: Bedtime, # Francesca nn 00 90 tab, 1 Refill(s), Pharmacy: [id number], 160.02, cm, 06/02/22 14:39:00 CDT, Height, 81.818, kg, 06/02/22 14:39:00 CDT, Weight Topamax 25 0 No 25 mg = 1 Me moria mg oral 8-23 tab, PO, l tablet 23:16: Bedtime, # Francesca nn 00 90 tab, 1 Refill(s), Pharmacy: [id number], 160.02, cm, 06/02/22 14:39:00 CDT, Height, 81.818, kg, 06/02/22 14:39:00 CDT, Weight Topamax 25 No 25 mg = 1 Me moria mg oral 8-23 tab, PO, l tablet 23:16: Bedtime, # Francesca nn 00 90 tab, 1 Refill(s), Pharmacy: [id number], 160.02, cm, 06/02/22 14:39:00 CDT, Height, 81.818, kg, 06/02/22 14:39:00 CDT, Weight Topamax 25 2022-0 No 25 mg = 1 Me moria mg oral 8-23 tab, PO, l tablet 23:16: Bedtime, # Francesca nn 00 90 tab, 1 Refill(s), Pharmacy: [id number], 160.02, cm, 06/02/22 14:39:00 CDT, Height, 81.818, kg, 06/02/22 14:39:00 CDT, Weight Topamax 25 2022-0 No 25 mg = 1 Me moria mg oral 8-23 tab, PO, l tablet 23:16: Bedtime, # Francesca nn 00 90 tab, 1 Refill(s), Pharmacy: [id number], 160.02, cm, 06/02/22 14:39:00 CDT, Height, 81.818, kg, 06/02/22 14:39:00 CDT, Weight Topamax 25 2-0 No 25 mg = 1 Me moria mg oral 8-23 tab, PO, l tablet 23:16: Bedtime, # Francesca nn 00 90 tab, 1 Refill(s), Pharmacy: [id number], 160.02, cm, 06/02/22 14:39:00 CDT, Height, 81.818, kg, 06/02/22 14:39:00 CDT, Weight Topamax 25 2022-0 No 25 mg = 1 Me moria mg oral 8-23 tab, PO, l tablet 23:16: Bedtime, # Francesca nn 00 90 tab, 1 Refill(s), Pharmacy: [id number], 160.02, cm, 06/02/22 14:39:00 CDT, Height, 81.818, kg, 06/02/22 14:39:00 CDT, Weight Topamax 25 2022-0 No 25 mg = 1 Me moria mg oral 8-23 tab, PO, l tablet 23:16: Bedtime, # Rfancesca nn 00 90 tab, 1 Refill(s), Pharmacy: [id number], 160.02, cm, 06/02/22 14:39:00 CDT, Height, 81.818, kg, 06/02/22 14:39:00 CDT, Weight Topamax 25 2022-0 No 25 mg = 1 Me moria mg oral 8-23 tab, PO, l tablet 23:16: Bedtime, # Francesca nn 00 90 tab, 1 Refill(s), Pharmacy: [id number], 160.02, cm, 06/02/22 14:39:00 CDT, Height, 81.818, kg, 06/02/22 14:39:00 CDT, Weight Topamax 25 2022-0 No 25 mg = 1 Me moria mg oral 8-23 tab, PO, l tablet 23:16: Bedtime, # Francesca nn 00 90 tab, 1 Refill(s), Pharmacy: [id number], 160.02, cm, 06/02/22 14:39:00 CDT, Height, 81.818, kg, 06/02/22 14:39:00 CDT, Weight Topamax 25 2022-0 No 25 mg = 1 Me moria mg oral 8-23 tab, PO, l tablet 23:16: Bedtime, # Francesca nn 00 90 tab, 1 Refill(s), Pharmacy: [id number], 160.02, cm, 06/02/22 14:39:00 CDT, Height, 81.818, kg, 06/02/22 14:39:00 CDT, Weight Topamax 25 2022-0 No 25 mg = 1 Me moria mg oral 8-23 tab, PO, l tablet 23:16: Bedtime, # Francesca nn 00 90 tab, 1 Refill(s), Pharmacy: [id number], 160.02, cm, 06/02/22 14:39:00 CDT, Height, 81.818, kg, 06/02/22 14:39:00 CDT, Weight Topamax 25 2022-0 No 25 mg = 1 Me moria mg oral 8-23 tab, PO, l tablet 23:16: Bedtime, # Francesca nn 00 90 tab, 1 Refill(s), Pharmacy: [id number], 160.02, cm, 06/02/22 14:39:00 CDT, Height, 81.818, kg, 06/02/22 14:39:00 CDT, Weight Topamax 25 2022-0 No 25 mg = 1 Me moria mg oral 8-23 tab, PO, l tablet 23:16: Bedtime, # Francesca nn 00 90 tab, 1 Refill(s), Pharmacy: [id number], 160.02, cm, 06/02/22 14:39:00 CDT, Height, 81.818, kg, 06/02/22 14:39:00 CDT, Weight Topamax 25 2022-0 No 25 mg = 1 Me moria mg oral 8-23 tab, PO, l tablet 23:16: Bedtime, # Francesca nn 00 90 tab, 1 Refill(s), Pharmacy: [id number], 160.02, cm, 06/02/22 14:39:00 CDT, Height, 81.818, kg, 06/02/22 14:39:00 CDT, Weight Topamax 25 2022-0 No 25 mg = 1 Me moria mg oral 8-23 tab, PO, l tablet 23:16: Bedtime, # Francesca nn 00 90 tab, 1 Refill(s), Pharmacy: [id number], 160.02, cm, 06/02/22 14:39:00 CDT, Height, 81.818, kg, 06/02/22 14:39:00 CDT, Weight Topamax 25 2022-0 No 25 mg = 1 Me moria mg oral 8-23 tab, PO, l tablet 23:16: Bedtime, # Francesca nn 00 90 tab, 1 Refill(s), Pharmacy: [id number], 160.02, cm, 06/02/22 14:39:00 CDT, Height, 81.818, kg, 06/02/22 14:39:00 CDT, Weight Topamax 25 2022-0 No 25 mg = 1 Me moria mg oral 8-23 tab, PO, l tablet 23:16: Bedtime, # Francesca nn 00 90 tab, 1 Refill(s), Pharmacy: [id number], 160.02, cm, 06/02/22 14:39:00 CDT, Height, 81.818, kg, 06/02/22 14:39:00 CDT, Weight Topamax 25 2022-0 No 25 mg = 1 Me moria mg oral 8-23 tab, PO, l tablet 23:16: Bedtime, # Francesca nn 00 90 tab, 1 Refill(s), Pharmacy: [id number], 160.02, cm, 06/02/22 14:39:00 CDT, Height, 81.818, kg, 06/02/22 14:39:00 CDT, Weight Topamax 25 2-0 No 25 mg = 1 Me moria mg oral 8-23 tab, PO, l tablet 23:16: Bedtime, # Francesca nn 00 90 tab, 1 Refill(s), Pharmacy: [id number], 160.02, cm, 06/02/22 14:39:00 CDT, Height, 81.818, kg, 06/02/22 14:39:00 CDT, Weight Topamax 25 2021-0 No 25 mg = 1 Me moria mg oral 8-23 tab, PO, l tablet 15:36: Bedtime, X Francesca nn 00 30 day, # 30 tab, 2 Refill(s), Pharmacy: [id number], 160.02, cm, 06/02/22 14:39:00 CDT, Height, 81.818, kg, 06/02/22 14:39:00 CDT, Weight Topamax 25 2022-0 No 25 mg = 1 Me moria mg oral 8-23 tab, PO, l tablet 15:36: Bedtime, X Francesca nn 00 30 day, # 30 tab, 2 Refill(s), Pharmacy: [id number], 160.02, cm, 06/02/22 14:39:00 CDT, Height, 81.818, kg, 06/02/22 14:39:00 CDT, Weight Topamax 25 2-0 No 25 mg = 1 Me moria mg oral 8-23 tab, PO, l tablet 15:36: Bedtime, X Francesca nn 30 day, # 30 tab, 2 Refill(s), Pharmacy: [id number], 160.02, cm, 06/02/22 14:39:00 CDT, Height, 81.818, kg, 06/02/22 14:39:00 CDT, Weight Topamax 25 2-0 No 25 mg = 1 Me moria mg oral 8-23 tab, PO, l tablet 15:36: Bedtime, X Francesca nn 30 day, # 30 tab, 2 Refill(s), Pharmacy: [id number], 160.02, cm, 06/02/22 14:39:00 CDT, Height, 81.818, kg, 06/02/22 14:39:00 CDT, Weight Topamax 25 2-0 No 25 mg = 1 Me moria mg oral 8-23 tab, PO, l tablet 15:36: Bedtime, X Francesca nn 30 day, # 30 tab, 2 Refill(s), Pharmacy: [id number], 160.02, cm, 06/02/22 14:39:00 CDT, Height, 81.818, kg, 06/02/22 14:39:00 CDT, Weight Topamax 25 2-0 No 25 mg = 1 Me moria mg oral 8-23 tab, PO, l tablet 15:36: Bedtime, X Francesca nn 30 day, # 30 tab, 2 Refill(s), Pharmacy: [id number], 160.02, cm, 06/02/22 14:39:00 CDT, Height, 81.818, kg, 06/02/22 14:39:00 CDT, Weight Topamax 25 2-0 No 25 mg = 1 Me moria mg oral 8-23 tab, PO, l tablet 15:36: Bedtime, X Francesca nn 30 day, # 30 tab, 2 Refill(s), Pharmacy: [id number], 160.02, cm, 06/02/22 14:39:00 CDT, Height, 81.818, kg, 06/02/22 14:39:00 CDT, Weight Topamax 25 2-0 No 25 mg = 1 Me moria mg oral 8-23 tab, PO, l tablet 15:36: Bedtime, X Francesca nn 30 day, # 30 tab, 2 Refill(s), Pharmacy: [id number], 160.02, cm, 06/02/22 14:39:00 CDT, Height, 81.818, kg, 06/02/22 14:39:00 CDT, Weight Topamax 25 2-0 No 25 mg = 1 Me moria mg oral 8-23 tab, PO, l tablet 15:36: Bedtime, X Francesca nn 30 day, # 30 tab, 2 Refill(s), Pharmacy: [id number], 160.02, cm, 06/02/22 14:39:00 CDT, Height, 81.818, kg, 06/02/22 14:39:00 CDT, Weight Topamax 25 2021-0 No 25 mg = 1 Me moria mg oral 8-23 tab, PO, l tablet 15:36: Bedtime, X Francesca nn 30 day, # 30 tab, 2 Refill(s), Pharmacy: [id number], 160.02, cm, 06/02/22 14:39:00 CDT, Height, 81.818, kg, 06/02/22 14:39:00 CDT, Weight Topamax 25 2021-0 No 25 mg = 1 Me moria mg oral 8-23 tab, PO, l tablet 15:36: Bedtime, X Francesca nn 30 day, # 30 tab, 2 Refill(s), Pharmacy: [id number], 160.02, cm, 06/02/22 14:39:00 CDT, Height, 81.818, kg, 06/02/22 14:39:00 CDT, Weight Topamax 25 2-0 No 25 mg = 1 Me moria mg oral 8-23 tab, PO, l tablet 15:36: Bedtime, X Francesca nn 30 day, # 30 tab, 2 Refill(s), Pharmacy: [facility] #[id number], 160.02, cm, 06/02/22 14:39:00 CDT, Height, 81.818, kg, 06/02/22 14:39:00 CDT, Weight Topamax 25 2022-0 No 25 mg = 1 Me moria mg oral 8-23 tab, PO, l tablet 15:36: Bedtime, X Francesca nn 30 day, # 30 tab, 2 Refill(s), Pharmacy: [facility] #[id number], 160.02, cm, 06/02/22 14:39:00 CDT, Height, 81.818, kg, 06/02/22 14:39:00 CDT, Weight Topamax 25 2022-0 No 25 mg = 1 Me moria mg oral 8-23 tab, PO, l tablet 15:36: Bedtime, X Francesca nn 30 day, # 30 tab, 2 Refill(s), Pharmacy: [id number], 160.02, cm, 06/02/22 14:39:00 CDT, Height, 81.818, kg, 06/02/22 14:39:00 CDT, Weight Topamax 25 2-0 No 25 mg = 1 Me moria mg oral 8-23 tab, PO, l tablet 15:36: Bedtime, X [place] nn 30 day, # 30 tab, 2 Refill(s), Pharmacy: [id number], 160.02, cm, 06/02/22 14:39:00 CDT, Height, 81.818, kg, 06/02/22 14:39:00 CDT, Weight Topamax 25 2022-0 No 25 mg = 1 Me moria mg oral 8-23 tab, PO, l tablet 15:36: Bedtime, X [place]ca nn 30 day, # 30 tab, 2 Refill(s), Pharmacy: [facility] #[id number], 160.02, cm, 06/02/22 14:39:00 CDT, Height, 81.818, kg, 06/02/22 14:39:00 CDT, Weight Topamax 25 2022-0 No 25 mg = 1 Me moria mg oral 8-23 tab, PO, l tablet 15:36: Bedtime, X [place]ca nn 30 day, # 30 tab, 2 Refill(s), Pharmacy: [id number], 160.02, cm, 06/02/22 14:39:00 CDT, Height, 81.818, kg, 06/02/22 14:39:00 CDT, Weight Topamax 25 2021-0 No 25 mg = 1 Me moria mg oral 8-23 tab, PO, l tablet 15:36: Bedtime, X [place]ca nn 30 day, # 30 tab, 2 Refill(s), Pharmacy: [id number], 160.02, cm, 06/02/22 14:39:00 CDT, Height, 81.818, kg, 06/02/22 14:39:00 CDT, Weight Topamax 25 2021-0 No 25 mg = 1 Me moria mg oral 8-23 tab, PO, l tablet 15:36: Bedtime, X Francesca nn 30 day, # 30 tab, 2 Refill(s), Pharmacy: [id number], 160.02, cm, 06/02/22 14:39:00 CDT, Height, 81.818, kg, 06/02/22 14:39:00 CDT, Weight Topamax 25 2021-0 No 25 mg = 1 Me moria mg oral 8-23 tab, PO, l tablet 15:36: Bedtime, X Francesca nn 30 day, # 30 tab, 2 Refill(s), Pharmacy: [id number], 160.02, cm, 06/02/22 14:39:00 CDT, Height, 81.818, kg, 06/02/22 14:39:00 CDT, Weight Topamax 25 2021-0 No 25 mg = 1 Me moria mg oral 8-23 tab, PO, l tablet 15:36: Bedtime, X [place]ca nn 30 day, # 30 tab, 2 Refill(s), Pharmacy: [id number], 160.02, cm, 06/02/22 14:39:00 CDT, Height, 81.818, kg, 06/02/22 14:39:00 CDT, Weight pregabalin 2021-0 Yes TAKE 1 [facility] 75 mg oral 6-16 CAPSULE BY l capsule 21:18: MOUTH [place] 00 TWICE A DAY predniSONE 2021-0 Yes TAKE 1 [facility] 20 mg oral 6-16 TABLET BY l tablet 21:18: MOUTH [place] 00 EVERY DAY FOR 5 DAYS clonazePAM 2021-0 Yes TAKE 1 [facility] 0.5 mg oral 6-16 TABLET BY l tablet 21:18: MOUTH [place] 00 EVERY DAY NEEDED pregabalin 2021-0 Yes TAKE 1 [facility] 75 mg oral 6-16 CAPSULE BY l capsule 21:18: MOUTH [place] 00 TWICE A DAY predniSONE 2021-0 Yes TAKE 1 [facility] 20 mg oral 6-16 TABLET BY l tablet 21:18: MOUTH [place] 00 EVERY DAY FOR 5 DAYS clonazePAM 2021-0 Yes TAKE 1 [facility] 0.5 mg oral 6-16 TABLET BY l tablet 21:18: MOUTH [place] 00 EVERY DAY NEEDED pregabalin 2021-0 Yes TAKE 1 [facility] 75 mg oral 6-16 CAPSULE BY l capsule 21:18: MOUTH [place] 00 TWICE A DAY predniSONE 2021-0 Yes TAKE 1 [facility] 20 mg oral 6-16 TABLET BY l tablet 21:18: MOUTH [place] 00 EVERY DAY FOR 5 DAYS clonazePAM [...] 6-16 TABLET BY l tablet 21:18: MOUTH [place] 00 EVERY DAY FOR 5 DAYS clonazePAM 2021-0 Yes TAKE 1 [facility] 0.5 mg oral 6-16 TABLET BY l tablet 21:18: MOUTH [place] 00 EVERY DAY NEEDED pregabalin 2021-0 Yes TAKE 1 [facility] 75 mg oral 6-16 CAPSULE BY l capsule 21:18: MOUTH [place] 00 TWICE A DAY predniSONE 2021-0 Yes [...] 6-16 TABLET BY l tablet 21:18: MOUTH [place] 00 EVERY DAY FOR 5 DAYS clonazePAM 2021-0 Yes TAKE 1 [facility] 0.5 mg oral 6-16 TABLET BY l tablet 21:18: MOUTH [place] 00 EVERY DAY NEEDED pregabalin 0 Yes [...] 00 EVERY DAY FOR 5 DAYS pregabalin 0 Yes TAKE 1 [facility] 75 mg oral 6-16 CAPSULE BY l capsule 21:18: MOUTH [place] 00 TWICE A DAY clonazePAM 2021-0 Yes TAKE 1 [facility] 0.5 mg oral 6-16 TABLET BY l tablet 21:18: MOUTH [place] 00 EVERY DAY NEEDED predniSONE 2021-0 Yes TAKE 1 [facility] 20 mg oral 6-16 TABLET BY l tablet 21:18: MOUTH [place] 00 EVERY DAY FOR 5 DAYS pregabalin 2021-0 Yes TAKE 1 [facility] 75 mg oral 6-16 CAPSULE BY l capsule 21:18: MOUTH [place] 00 TWICE A DAY clonazePAM 2021-0 Yes TAKE 1 [facility] 0.5 mg oral 6-16 TABLET BY l tablet 21:18: MOUTH [place] 00 EVERY DAY NEEDED predniSONE 2022-0 Yes TAKE 1 [facility] 20 mg oral 6-16 TABLET BY l tablet 21:18: MOUTH [place] 00 EVERY DAY FOR 5 DAYS pregabalin 2021-0 Yes TAKE 1 [facility] 75 mg oral 6-16 CAPSULE BY l capsule 21:18: MOUTH [place] 00 TWICE A DAY clonazePAM 2021-0 Yes TAKE 1 [facility] 0.5 mg oral 6-16 TABLET BY l tablet 21:18: MOUTH [place] 00 EVERY DAY NEEDED predniSONE 2021-0 Yes TAKE 1 [facility] 20 mg oral 6-16 TABLET BY l tablet 21:18: MOUTH [place] 00 EVERY DAY FOR 5 DAYS pregabalin 2021-0 Yes TAKE 1 [facility] 75 mg oral 6-16 CAPSULE BY l capsule 21:18: MOUTH [place] 00 TWICE A DAY clonazePAM 2021-0 Yes TAKE 1 [facility] 0.5 mg oral 6-16 TABLET BY l tablet 21:18: MOUTH [place] 00 EVERY DAY NEEDED predniSONE 2021-0 Yes [...] 6-16 TABLET BY l tablet 21:18: MOUTH [place] 00 EVERY DAY FOR 5 DAYS pregabalin 2021-0 Yes TAKE 1 [facility] 75 mg oral 6-16 CAPSULE BY l capsule 21:18: MOUTH [place] 00 TWICE A DAY clonazePAM 2021-0 Yes TAKE 1 [facility] 0.5 mg oral 6-16 TABLET BY l tablet 21:18: MOUTH [place] 00 EVERY DAY NEEDED predniSONE 2-0 Yes TAKE 1 [facility] 20 mg oral 6-16 TABLET BY l tablet 21:18: MOUTH [place] 00 EVERY DAY FOR 5 DAYS pregabalin 2021-0 Yes TAKE 1 [facility] 75 mg oral 6-16 CAPSULE BY l capsule 21:18: MOUTH [place] 00 TWICE A DAY clonazePAM 2-0 Yes TAKE 1 [facility] 0.5 mg oral 6-16 TABLET BY l tablet 21:18: MOUTH [place] 00 EVERY DAY NEEDED predniSONE 2-0 Yes TAKE 1 [facility] 20 mg oral 6-16 TABLET BY l tablet 21:18: MOUTH [place] 00 EVERY DAY FOR 5 DAYS pregabalin 2-0 Yes TAKE 1 [facility] 75 mg oral 6-16 CAPSULE BY l capsule 21:18: MOUTH [place] 00 TWICE A DAY clonazePAM 2-0 Yes TAKE 1 [facility] 0.5 mg oral 6-16 TABLET BY l tablet 21:18: MOUTH [place] 00 EVERY DAY NEEDED predniSONE 2-0 Yes TAKE 1 [facility] 20 mg oral 6-16 TABLET BY l tablet 21:18: MOUTH [place] 00 EVERY DAY FOR 5 DAYS pregabalin 2021-0 Yes TAKE 1 [facility] 75 mg oral 6-16 CAPSULE BY l capsule 21:18: MOUTH [place] 00 TWICE A DAY clonazePAM 2021-0 Yes TAKE 1 [facility] 0.5 mg oral 6-16 TABLET BY l tablet 21:18: MOUTH [place] 00 EVERY DAY NEEDED predniSONE 2-0 Yes TAKE 1 [facility] 20 mg oral 6-16 TABLET BY l tablet 21:18: MOUTH [place] 00 EVERY DAY FOR 5 DAYS pregabalin 2021-0 Yes TAKE 1 [facility] 75 mg oral 6-16 CAPSULE BY l capsule 21:18: MOUTH [place] 00 TWICE A DAY clonazePAM 2021-0 Yes TAKE 1 [facility] 0.5 mg oral 6-16 TABLET BY l tablet 21:18: MOUTH [place] 00 EVERY DAY NEEDED predniSONE 2-0 Yes TAKE 1 [facility] 20 mg oral 6-16 TABLET BY l tablet 21:18: MOUTH [place] 00 EVERY DAY FOR 5 DAYS predniSONE 2-0 Yes TAKE 1 [facility] 20 mg oral 6-16 TABLET BY l tablet 21:18: MOUTH [place] 00 EVERY DAY FOR 5 DAYS clonazePAM 2-0 Yes TAKE 1 [facility] 0.5 mg oral 6-16 TABLET BY l tablet 21:18: MOUTH [place] 00 EVERY DAY NEEDED pregabalin 2-0 Yes TAKE 1 [facility] 75 mg oral 6-16 CAPSULE BY l capsule 21:18: MOUTH [place] 00 TWICE A DAY pregabalin 2-0 Yes TAKE 1 [facility] 75 mg oral 6-16 CAPSULE BY l capsule 21:18: MOUTH [place] 00 TWICE A DAY clonazePAM 0 Yes TAKE 1 [facility] 0.5 mg oral 6-16 TABLET BY l tablet 21:18: MOUTH [place] 00 EVERY DAY NEEDED predniSONE 2021-0 Yes TAKE 1 [facility] 20 mg oral 6-16 TABLET BY l tablet 21:18: MOUTH [place] 00 EVERY DAY FOR 5 DAYS pregabalin 2021-0 Yes TAKE 1 [facility] 75 mg oral 6-16 CAPSULE BY l capsule 21:18: MOUTH [place] 00 TWICE A DAY clonazePAM 2021-0 Yes TAKE 1 [facility] 0.5 mg oral 6-16 TABLET BY l tablet 21:18: MOUTH [place] 00 EVERY DAY NEEDED predniSONE 2021-0 Yes TAKE 1 [facility] 20 mg oral 6-16 TABLET BY l tablet 21:18: MOUTH [place] 00 EVERY DAY FOR 5 DAYS No known 2021-0 No No known Metho [...] medication [facility] Mobic 7.5 Mobic 7.5 2021- No 1{table QD Mobic 7.5 MG MG 5-19 06-18 t} MG 00:00: 00:00 00 :00 Mobic 7.5 Mobic 7.5 2021-0 2021- No 1{table QD Mobic 7.5 MG MG 5-19 06-18 t} MG 00:00: 00:00 00 :00 Mobic 7.5 Mobic 7.5 2021-0 2021- No 1{table QD Mobic 7.5 MG MG 5-19 06-18 t} MG 00:00: 00:00 00 :00 Bentyl 10 2021-0 Yes 10 mg = 1 [facility] mg oral 5-18 cap, PO, l capsule 21:57: BID, # 30 Francesca nn 00 cap, 0 Refill(s), Pharmacy: [id number], 160.02, cm, 03/23/22 15:13:00 CDT, Height, 79.545, kg, 03/23/22 15:13:00 CDT, Weight Bentyl 10 2021-0 Yes 10 mg = 1 [facility] mg oral 5-18 cap, PO, l capsule 21:57: BID, # 30 Francesca nn 00 cap, 0 Refill(s), [facility]acy: [id number], 160.02, cm, 03/23/22 15:13:00 CDT, Height, 79.545, kg, 03/23/22 15:13:00 CDT, Weight Bentyl 10 2021-0 Yes 10 mg = 1 [facility] mg oral 5-18 cap, PO, l capsule 21:57: BID, # 30 Francesca nn 00 cap, 0 Refill(s), Pharmacy: [id number], 160.02, cm, 03/23/22 15:13:00 CDT, Height, 79.545, kg, 03/23/22 15:13:00 CDT, Weight Bentyl 10 2021-0 Yes 10 mg = 1 [facility] mg oral 5-18 cap, PO, l capsule 21:57: BID, # 30 Francesca nn 00 cap, 0 Refill(s), Pharmacy: [id number], 160.02, cm, 03/23/22 15:13:00 CDT, Height, 79.545, kg, 03/23/22 15:13:00 CDT, Weight Bentyl 10 2021-0 Yes 10 mg = 1 [facility] mg oral 5-18 cap, PO, l capsule 21:57: BID, # 30 Francesca nn 00 cap, 0 Refill(s), Pharmacy: [facility] #[id number], 160.02, cm, 03/23/22 15:13:00 CDT, Height, 79.545, kg, 03/23/22 15:13:00 CDT, Weight Bentyl 10 2021-0 Yes 10 mg = 1 [facility] mg oral 5-18 cap, PO, l capsule 21:57: BID, # 30 Francesca nn 00 cap, 0 Refill(s), Pharmacy: [facility] #[id number], 160.02, cm, 03/23/22 15:13:00 CDT, Height, 79.545, kg, 03/23/22 15:13:00 CDT, Weight Bentyl 10 2021-0 Yes 10 mg = 1 [facility] mg oral 5-18 cap, PO, l capsule 21:57: BID, # 30 Francesca nn 00 cap, 0 Refill(s), Pharmacy: [id number], 160.02, cm, 03/23/22 15:13:00 CDT, Height, 79.545, kg, 03/23/22 15:13:00 CDT, Weight Bentyl 10 2021-0 Yes 10 mg = 1 [facility] mg oral 5-18 cap, PO, l capsule 21:57: BID, # 30 Francesca nn 00 cap, 0 Refill(s), Pharmacy: [id number], 160.02, cm, 03/23/22 15:13:00 CDT, Height, 79.545, kg, 03/23/22 15:13:00 CDT, Weight Bentyl 10 2021-0 Yes 10 mg = 1 [facility] mg oral 5-18 cap, PO, l capsule 21:57: BID, # 30 Francesca nn 00 cap, 0 Refill(s), Pharmacy: [id number], 160.02, cm, 03/23/22 15:13:00 CDT, Height, 79.545, kg, 03/23/22 15:13:00 CDT, Weight Bentyl 10 2021-0 Yes 10 mg = 1 [facility] mg oral 5-18 cap, PO, l capsule 21:57: BID, # 30 Francesca nn 00 cap, 0 Refill(s), Pharmacy: [id number], 160.02, cm, 03/23/22 15:13:00 CDT, Height, 79.545, kg, 03/23/22 15:13:00 CDT, Weight Bentyl 10 2021-0 Yes 10 mg = 1 [facility] mg oral 5-18 cap, PO, l capsule 21:57: BID, # 30 Francesca nn 00 cap, 0 Refill(s), Pharmacy: [id number], 160.02, cm, 03/23/22 15:13:00 CDT, Height, 79.545, kg, 03/23/22 15:13:00 CDT, Weight Bentyl 10 2021-0 Yes 10 mg = 1 [facility] mg oral 5-18 cap, PO, l capsule 21:57: BID, # 30 Francesca nn 00 cap, 0 Refill(s), Pharmacy: [id number], 160.02, cm, 03/23/22 15:13:00 CDT, Height, 79.545, kg, 03/23/22 15:13:00 CDT, Weight Bentyl 10 2021-0 Yes 10 mg = 1 [facility] mg oral 5-18 cap, PO, l capsule 21:57: BID, # 30 Francesca nn 00 cap, 0 Refill(s), Pharmacy: [id number], 160.02, cm, 03/23/22 15:13:00 CDT, Height, 79.545, kg, 03/23/22 15:13:00 CDT, Weight Bentyl 10 2021-0 Yes 10 mg = 1 [facility] mg oral 5-18 cap, PO, l capsule 21:57: BID, # 30 Francesca nn 00 cap, 0 Refill(s), Pharmacy: [id number], 160.02, cm, 03/23/22 15:13:00 CDT, Height, 79.545, kg, 03/23/22 15:13:00 CDT, Weight Bentyl 10 2021-0 Yes 10 mg = 1 [facility] mg oral 5-18 cap, PO, l capsule 21:57: BID, # 30 Francesca nn 00 cap, 0 Refill(s), [facility]: [id number], 160.02, cm, 03/23/22 15:13:00 CDT, Height, 79.545, kg, 03/23/22 15:13:00 CDT, Weight Bentyl 10 2021-0 Yes 10 mg = 1 [facility] mg oral 5-18 cap, PO, l capsule 21:57: BID, # 30 Francesca nn 00 cap, 0 Refill(s), Pharmacy: [id number], 160.02, cm, 03/23/22 15:13:00 CDT, Height, 79.545, kg, 03/23/22 15:13:00 CDT, Weight Bentyl 10 2021-0 Yes 10 mg = 1 [facility] mg oral 5-18 cap, PO, l capsule 21:57: BID, # 30 [place]ca nn 00 cap, 0 Refill(s), [facility]acy: [id number], 160.02, cm, 03/23/22 15:13:00 CDT, Height, 79.545, kg, 03/23/22 15:13:00 CDT, Weight Bentyl 10 2021-0 Yes 10 mg = 1 [facility] mg oral 5-18 cap, PO, l capsule 21:57: BID, # 30 Francesca nn 00 cap, 0 Refill(s), [id number] 160.02, cm, 03/23/22 15:13:00 CDT, Height, 79.545, kg, 03/23/22 15:13:00 CDT, Weight Bentyl 10 2021-0 Yes 10 mg = 1 [facility] mg oral 5-18 cap, PO, l capsule 21:57: BID, # 30 [place] nn 00 cap, 0 Refill(s), [facility]acy: [id number], 160.02, cm, 03/23/22 15:13:00 CDT, Height, 79.545, kg, 03/23/22 15:13:00 CDT, Weight Bentyl 10 2021-0 Yes 10 mg = 1 [facility] mg oral 5-18 cap, PO, l capsule 21:57: BID, # 30 [place] nn 00 cap, 0 Refill(s), [facility]acy: [id number], 160.02, cm, 03/23/22 15:13:00 CDT, Height, 79.545, kg, 03/23/22 15:13:00 CDT, Weight Bentyl 10 2021-0 Yes 10 mg = 1 [facility] mg oral 5-18 cap, PO, l capsule 21:57: BID, # 30 [place] nn 00 cap, 0 Refill(s), Pharmacy: [id number], 160.02, cm, 03/23/22 15:13:00 CDT, Height, 79.545, kg, 03/23/22 15:13:00 CDT, Weight mirtazapine Yes TAKE 1 Frederick enriqueta 30 mg oral 5-09 TABLET BY l tablet 19:02: MOUTH [place] 00 EVERY DAY AT BEDTIME FOR 90 DAYS Metoprolol Yes TAKE 1 [facility] Succinate 5-09 TABLET BY l ER 25 mg 19:02: MOUTH [place] oral 00 EVERY DAY tablet, FOR 90 extended DAYS release amLODIPine Yes TAKE 1 [facility] 10 mg oral 5-09 TABLET BY l tablet 19:02: MOUTH [place] 00 EVERY DAY pantoprazol Yes TAKE 1 Frederick enriqueta e 20 mg 5-09 TABLET BY l oral 19:02: MOUTH ONCE [place] enteric 00 A DAY 30 coated MINUTES tablet BEFORE BREAKFAST losartan Yes TAKE 1 [facility] 100 mg oral 5-09 TABLET BY l tablet 19:02: MOUTH [place] 00 EVERY DAY atorvastati Yes TAKE 1 [...] 5-09 TABLET BY l tablet 19:02: MOUTH [place] 00 EVERY DAY AT BEDTIME FOR 90 [...] TABLET BY l oral 19:02: MOUTH ONCE [place] [facility] 00 A DAY 30 coated MINUTES [...] 5-09 TABLET BY l tablet 19:02: MOUTH [place] 00 EVERY DAY AT BEDTIME FOR 90 DAYS Metoprolol Yes TAKE 1 [facility] Succinate 5-09 TABLET BY l ER 25 mg 19:02: MOUTH [place] oral 00 EVERY DAY tablet, FOR 90 extended DAYS release amLODIPine Yes TAKE 1 [facility] 10 mg oral 5-09 TABLET BY l tablet 19:02: MOUTH [place] 00 EVERY DAY pantoprazol Yes TAKE 1 Frederick enriqueta e 20 mg 5-09 TABLET BY l oral 19:02: MOUTH ONCE [place] [facility] 00 A DAY 30 coated MINUTES tablet BEFORE BREAKFAST losartan Yes TAKE 1 [facility] 100 mg oral 5-09 TABLET BY l tablet 19:02: MOUTH [place] 00 EVERY DAY atorvastati Yes TAKE 1 [...] 5-09 TABLET BY l tablet 19:02: MOUTH [place] 00 EVERY DAY AT BEDTIME FOR 90 DAYS Metoprolol Yes TAKE 1 [facility] Succinate 5-09 TABLET BY l ER 25 mg 19:02: MOUTH [place] oral 00 EVERY DAY tablet, FOR 90 extended DAYS release amLODIPine Yes TAKE 1 [facility] 10 mg oral 5-09 TABLET BY l tablet 19:02: MOUTH [place] 00 EVERY DAY pantoprazol Yes TAKE 1 Frederick enriqueta e 20 mg 5-09 TABLET BY l oral 19:02: MOUTH ONCE [place] enteric 00 A DAY 30 coated MINUTES tablet BEFORE BREAKFAST losartan Yes TAKE 1 [facility] 100 mg oral 5-09 TABLET BY l tablet 19:02: MOUTH [place] 00 EVERY DAY atorvastati Yes TAKE 1 [...] 5-09 TABLET BY l tablet 19:02: MOUTH [place] 00 EVERY DAY AT BEDTIME FOR 90 [...] TABLET BY l oral 19:02: MOUTH ONCE [place] [facility] 00 A DAY 30 coated MINUTES [...] 5-09 TABLET BY l tablet 19:02: MOUTH [place] 00 EVERY DAY AT BEDTIME FOR 90 DAYS Metoprolol Yes TAKE 1 [facility] Succinate 5-09 TABLET BY l ER 25 mg 19:02: MOUTH [place] oral 00 EVERY DAY tablet, FOR 90 extended DAYS release amLODIPine Yes TAKE 1 [facility] 10 mg oral 5-09 TABLET BY l tablet 19:02: MOUTH [place] 00 EVERY DAY pantoprazol Yes TAKE 1 Frederick enriqueta e 20 mg 5-09 TABLET BY l oral 19:02: MOUTH ONCE [place] enteric 00 A DAY 30 coated MINUTES tablet BEFORE BREAKFAST losartan Yes TAKE 1 [facility] 100 mg oral 5-09 TABLET BY l tablet 19:02: MOUTH [place] 00 EVERY DAY atorvastati Yes TAKE 1 [...] 5-09 TABLET BY l tablet 19:02: MOUTH [place] 00 EVERY DAY aspirin 81 Yes 81 [...] TABLET BY l oral 19:02: MOUTH ONCE [place] enteric 00 A DAY 30 coated MINUTES tablet BEFORE BREAKFAST losartan Yes TAKE 1 [facility] 100 mg oral 5-09 TABLET BY l tablet 19:02: MOUTH [place] 00 EVERY DAY atorvastati Yes TAKE 1 Frederick enriqueta n 40 mg 5-09 TABLET BY l oral tablet 19:02: MOUTH [place] nn 00 EVERY DAY clopidogrel Yes TAKE 1 Frederick enriqueta 75 mg oral 5-09 TABLET BY l tablet 19:02: MOUTH [place] 00 EVERY DAY aspirin 81 0 Yes 81 mg = 1 Me moria mg oral 5-09 cap, PO, l capsule 19:02: Daily, 0 [place] n 00 Refill(s) mirtazapine Yes TAKE 1 Frederick enriqueta 30 mg oral 5-09 TABLET BY l tablet 19:02: MOUTH [place] 00 EVERY DAY AT BEDTIME FOR 90 DAYS Metoprolol Yes TAKE 1 [facility] Succinate 5-09 TABLET BY l ER 25 mg 19:02: MOUTH [place] oral 00 EVERY DAY tablet, FOR 90 extended DAYS release amLODIPine Yes TAKE 1 [facility] 10 mg oral 5-09 TABLET BY l tablet 19:02: MOUTH [place] 00 EVERY DAY pantoprazol Yes TAKE 1 [...] 5-09 TABLET BY l tablet 19:02: MOUTH [place] 00 EVERY DAY aspirin 81 Yes 81 [...] BY l ER 25 mg 19:02: MOUTH [place] oral 00 EVERY DAY tablet, FOR 90 [...] 5-09 TABLET BY l tablet 19:02: MOUTH [place] 00 EVERY DAY AT BEDTIME FOR 90 DAYS Metoprolol Yes TAKE 1 [facility] Succinate 5-09 TABLET BY l ER 25 mg 19:02: MOUTH [place] oral 00 EVERY DAY tablet, FOR 90 extended DAYS release amLODIPine Yes TAKE 1 [facility] 10 mg oral 5-09 TABLET BY l tablet 19:02: MOUTH [place] 00 EVERY DAY pantoprazol Yes TAKE 1 [...] 5-09 TABLET BY l tablet 19:02: MOUTH [place] 00 EVERY DAY aspirin 81 0 Yes [...] TABLET BY l oral 19:02: MOUTH ONCE [place] [facility] 00 A DAY 30 coated MINUTES [...] 5-09 TABLET BY l tablet 19:02: MOUTH [place] 00 EVERY DAY aspirin 81 0 Yes [...] BY l ER 25 mg 19:02: MOUTH [place] oral 00 EVERY DAY tablet, FOR 90 [...] 00 EVERY DAY pantoprazol Yes TAKE 1 Ferderick enriqueta e 20 mg 5-09 TABLET BY l oral 19:02: MOUTH ONCE [place] [facility] 00 A DAY 30 coated MINUTES tablet BEFORE BREAKFAST losartan Yes TAKE 1 [facility] 100 mg oral 5-09 TABLET BY l tablet 19:02: MOUTH [place] 00 EVERY DAY atorvastati Yes TAKE 1 Frederick enriqueta n 40 mg 5-09 TABLET BY l oral tablet 19:02: MOUTH [place] nn 00 EVERY DAY clopidogrel Yes TAKE 1 Frederick enriqueta 75 mg oral 5-09 TABLET BY l tablet 19:02: MOUTH [place] 00 EVERY DAY aspirin 81 0 Yes 81 mg = 1 Me moria mg oral 5-09 cap, PO, l capsule 19:02: Daily, 0 [place] n 00 Refill(s) mirtazapine Yes TAKE 1 Frederick enriqueta 30 mg oral 5-09 TABLET BY l tablet 19:02: MOUTH [place] 00 EVERY DAY AT BEDTIME FOR 90 [...] 5-09 TABLET BY l tablet 19:02: MOUTH [place] 00 EVERY DAY atorvastati Yes TAKE 1 Frederick enriqueta n 40 mg 5-09 TABLET BY l oral tablet 19:02: MOUTH [place] nn 00 EVERY DAY clopidogrel Yes TAKE 1 Frederick enriqueta 75 mg oral 5-09 TABLET BY l tablet 19:02: MOUTH [place] 00 EVERY DAY aspirin 81 Yes 81 mg = 1 Me moria mg oral 5-09 cap, PO, l capsule 19:02: Daily, 0 [place] n 00 Refill(s) mirtazapine Yes TAKE 1 Frederick enriqueta 30 mg oral 5-09 TABLET BY l tablet 19:02: MOUTH [place] 00 EVERY DAY AT BEDTIME FOR 90 DAYS Metoprolol Yes TAKE 1 [facility] Succinate 5-09 TABLET BY l ER 25 mg 19:02: MOUTH [place] oral 00 EVERY DAY tablet, FOR 90 extended DAYS release amLODIPine Yes TAKE 1 [facility] 10 mg oral 5-09 TABLET BY l tablet 19:02: MOUTH [place] 00 EVERY DAY pantoprazol Yes TAKE 1 Frederick enriqueta e 20 mg 5-09 TABLET BY l oral 19:02: MOUTH ONCE [place] [facility] 00 A DAY 30 coated MINUTES tablet BEFORE BREAKFAST losartan Yes TAKE 1 [facility] 100 mg oral 5-09 TABLET BY l tablet 19:02: MOUTH [place] 00 EVERY DAY atorvastati Yes TAKE 1 Frederick enriqueta n 40 mg 5-09 TABLET BY l oral tablet 19:02: MOUTH [place] nn 00 EVERY DAY clopidogrel Yes TAKE 1 Frederick enriqueta 75 mg oral 5-09 TABLET BY l tablet 19:02: MOUTH [place] 00 EVERY DAY aspirin 81 Yes 81 mg = 1 Me moria mg oral 5-09 cap, PO, l capsule 19:02: Daily, 0 [place] n 00 Refill(s) mirtazapine Yes TAKE 1 Frederick enriqueta 30 mg oral 5-09 TABLET BY l tablet 19:02: MOUTH [place] 00 EVERY DAY AT BEDTIME FOR 90 DAYS Metoprolol Yes TAKE 1 [facility] Succinate 5-09 TABLET BY l ER 25 mg 19:02: MOUTH [place] oral 00 EVERY DAY tablet, FOR 90 extended DAYS release amLODIPine Yes TAKE 1 [facility] 10 mg oral 5-09 TABLET BY l tablet 19:02: MOUTH [place] 00 EVERY DAY pantoprazol Yes TAKE 1 Frederick enriqueta e 20 mg 5-09 TABLET BY l oral 19:02: MOUTH ONCE [place] [facility] 00 A DAY 30 coated MINUTES tablet BEFORE BREAKFAST losartan Yes TAKE 1 [facility] 100 mg oral 5-09 TABLET BY l tablet 19:02: MOUTH [place] 00 EVERY DAY atorvastati Yes TAKE 1 [...] 5-09 TABLET BY l tablet 19:02: MOUTH [place] 00 EVERY DAY AT BEDTIME FOR 90 DAYS Metoprolol Yes TAKE 1 [facility] Succinate 5-09 TABLET BY l ER 25 mg 19:02: MOUTH [place] oral 00 EVERY DAY tablet, FOR 90 [...] 5-09 TABLET BY l tablet 19:02: MOUTH [place] 00 EVERY DAY AT BEDTIME FOR 90 DAYS Metoprolol Yes TAKE 1 [facility] Succinate 5-09 TABLET BY l ER 25 mg 19:02: MOUTH [place] oral 00 EVERY DAY tablet, FOR 90 extended DAYS release amLODIPine Yes TAKE 1 [facility] 10 mg oral 5-09 TABLET BY l tablet 19:02: MOUTH [place] 00 EVERY DAY pantoprazol Yes TAKE 1 [place] enriqueta e 20 mg 5-09 TABLET BY l oral 19:02: MOUTH ONCE [place] enteric 00 A DAY 30 coated MINUTES tablet BEFORE BREAKFAST losartan Yes TAKE 1 [facility] 100 mg oral 5-09 TABLET BY l tablet 19:02: MOUTH [place] 00 EVERY DAY atorvastati Yes TAKE 1 [...] 5-09 TABLET BY l tablet 19:02: MOUTH [place] 00 EVERY DAY AT BEDTIME FOR 90 DAYS Metoprolol Yes TAKE 1 [facility] Su[place] 5-09 TABLET BY l ER 25 mg 19:02: MOUTH [place] oral 00 EVERY DAY tablet, FOR 90 extended DAYS release amLODIPine Yes TAKE 1 [facility] 10 mg oral 5-09 TABLET BY l tablet 19:02: MOUTH [place] 00 EVERY DAY pantoprazol Yes TAKE 1 [place] enriqueta e 20 mg 5-09 TABLET BY l oral 19:02: MOUTH ONCE [place] enteric 00 A DAY 30 coated MINUTES tablet BEFORE BREAKFAST losartan 0 Yes TAKE 1 [facility] 100 mg oral 5-09 TABLET BY l tablet 19:02: MOUTH [place] 00 EVERY DAY atorvastati Yes TAKE 1 [...] 19:02: Daily, 0 [place] n 00 Refill(s) Mirtazapine Mirtazapine No 1{table QD Mirtazapin 30 MG 30 MG 4 t_at_be e 30 MG 00:00: dtime} 00 Bupivicaine Bupivicaine No 2.5mg Common Browns Browns 3-14 Spirit 00:00: - [facility] Kalpeshalog Kenalog No 40mg Common (Triamcinol (Triamcinol 3-14 S pirit one) one) 00:00: - [facility] 00 [facility] Bupivicaine Bupivicaine 0 No 2.5mg Common Browns Browns 3-14 [facility] 00:00: - [facility] 00 [facility] Kenalog Kenalog 0 No 40mg Common (Triamcinol (Triamcinol 3-14 S pirit one) one) 00:00: - [facility] 00 [facility] Tylenol # 3 Tylenol # 3 0 No Tylenol # 300/30mg 300/30mg 3-14 3 300/30mg 00:00: 00 Bupivicaine Bupivicaine 2021-0 No Common Browns Browns 3-14 Spirit 00:00: - [facility] 00 [facility] Kenalog Kenalog 0 No 40mg Common (Triamcinol (Triamcinol 3-14 S pirit one) one) 00:00: - [facility] 00 [facility] Tylenol # 3 Tylenol # 3 2021-0 No Tylenol # 300/30mg 300/30mg 3-14 3 300/30mg 00:00: 00 Bupivicaine Bupivicaine 2-0 No 2.5mg Common Browns Browns 3-14 Spirit 00:00: - [facility] Kenalog Kenalog 2021-0 No 40mg Common (Triamcinol (Triamcinol 3-14 S pirit one) one) 00:00: - [facility] 00 [facility] Tylenol # 3 Tylenol # 3 2021-0 No Tylenol # 300/30mg 300/30mg 3-14 3 300/30mg 00:00: 00 Bupivicaine Bupivicaine 2-0 No 2.5mg Common Browns Browns 3-14 Spirit 00:00: - [facility] Kenalog Kenalog 2021-0 No 40mg Common (Triamcinol (Triamcinol 3-14 S pirit one) one) 00:00: - [facility] Tylenol # 3 Tylenol # 3 2021-0 No Tylenol # 300/30mg 300/30mg 3-14 3 300/30mg 00:00: 00 Bupivicaine Bupivicaine 2-0 No 2.5mg Common Browns Browns 3-14 Spirit 00:00: - [facility] Cristino Poseyalog 2021-0 No 40mg Common (Triamcinol (Triamcinol 3-14 S pirit one) one) 00:00: - [facility] 00 [facility] Tylenol # 3 Tylenol # 3 2021-0 No Tylenol # 300/30mg 300/30mg 3-14 3 300/30mg 00:00: 00 Bupivicaine Bupivicaine 2-0 No 2.5mg Common Browns Browns 3-14 Spirit 00:00: - [facility] Kenalog Kenalog 2-0 No 40mg Common (Triamcinol (Triamcinol 3-14 S pirit one) one) 00:00: - [facility] Tylenol # 3 Tylenol # 3 2021-0 No Tylenol # 300/30mg 300/30mg 3-14 3 300/30mg 00:00: 00 Bupivicaine Bupivicaine 2-0 No 2.5mg Common Browns Browns 3-14 Spirit 00:00: - [facility] 00 [facility] Kenalog Kenalog 2-0 No 40mg Common (Triamcinol (Triamcinol 3-14 S pirit one) one) 00:00: - [facility] 00 [facility] Tylenol # 3 Tylenol # 3 2-0 No Tylenol # 300/30mg 300/30mg 3-14 3 300/30mg 00:00: 00 Bupivicaine Bupivicaine 2-0 No 2.5mg Common Browns Browns 3-14 Spirit 00:00: - [facility] 00 [facility] Kenalog Kenalog 2021-0 No 40mg Common (Triamcinol (Triamcinol 3-14 S pirit one) one) 00:00: - [facility] 00 [facility] Tylenol # 3 Tylenol # 3 2021-0 No Tylenol # 300/30mg 300/30mg 3-14 3 300/30mg 00:00: 00 Bupivicaine Bupivicaine 2-0 No 2.5mg Common Browns Browns 3-14 Spirit 00:00: - [facility] 00 [facility] Kenalog Kenalog 2021-0 No 40mg Common (Triamcinol (Triamcinol 3-14 S pirit one) one) 00:00: - [facility] 00 [facility] Bupivicaine Bupivicaine 2-0 No 2.5mg Common Browns Browns 3-14 Spirit 00:00: - [facility] 00 [facility] Kenalog Kenalog 2-0 No 40mg Common (Triamcinol (Triamcinol 3-14 S pirit one) one) 00:00: - [facility] 00 [facility] Bupivicaine Bupivicaine 2-0 No 2.5mg Common Browns Browns 3-14 Spirit 00:00: - [facility] 00 [facility] Kenalog Kenalog 2-0 No 40mg Common (Triamcinol (Triamcinol 3-14 S pirit one) one) 00:00: - [facility] 00 [facility] Bupivicaine Bupivicaine 2-0 No 2.5mg Common Browns Browns 3-14 Spirit 00:00: - [facility] 00 [facility] Kenalog Kenalog 2-0 No 40mg Common (Triamcinol (Triamcinol 3-14 S pirit one) one) 00:00: - [facility] 00 [facility] Bupivicaine Bupivicaine 2-0 No 2.5mg Common Browns Browns 3-14 Spirit 00:00: - [facility] 00 [facility] Kenalog Kenalog 2-0 No 40mg Common (Triamcinol (Triamcinol 3-14 S pirit one) one) 00:00: - [facility] 00 [facility] Tylenol # 3 Tylenol # 3 2020-2021- [...] :00 Tylenol # 3 Tylenol # 3 20211-06- No Tylenol # 300/30mg 300/30mg 12-13 3 300/30mg 00:00: 00:00 00 :00 Ciprofloxac Ciprofloxac 2020-11- No 1{table BID Ciprofloxa in HCl 500 in HCl 500 11-16 t} aleksandra HCl MG MG 00:00: 00:00 500 MG 00 :00 Ciprofloxac Ciprofloxac 2020-11- No 1{table BID Ciprofloxa in HCl 500 in HCl 500 11-16 t} aleksandra HCl MG MG 00:00: 00:00 500 MG 00 :00 Ciprofloxac Ciprofloxac 2020-11- No 1{table BID Ciprofloxa in HCl 500 in HCl 500 11-16 t} aleksandra HCl MG MG 00:00: 00:00 500 MG 00 :00 [facility] 2020-11 Yes TAKE [address] [facility] (LIPITOR) 0-15 TABLET BY Laura es 40 MG 00:00: MOUTH Medical tablet 00 [facility] 2020-11 Yes TAKE [address] [facility] (LIPITOR) 0-15 TABLET BY Laura es 40 MG 00:00: MOUTH Medical tablet 00 [facility] 2020-11 Yes TAKE [address] [facility] (LIPITOR) 0-15 TABLET BY Laura es 40 MG 00:00: MOUTH Medical tablet 00 [facility] 2020-11 Yes TAKE [address] [facility] [facility] (LIPITOR) 0-15 TABLET BY Laura es 40 MG 00:00: MOUTH Medical tablet 00 [facility] 2020-11 Yes TAKE [address] [facility] [facility] (LIPITOR) 0-15 TABLET BY Laura es 40 MG 00:00: MOUTH Medical tablet 00 [facility] 2020-11 Yes TAKE [address] [facility] [facility] (LIPITOR) 0-15 TABLET BY Laura es 40 MG 00:00: MOUTH Medical tablet 00 [facility] 2020-11 Yes TAKE [address] [facility] [facility] (LIPITOR) 0-15 TABLET BY Laura es 40 MG 00:00: MOUTH Medical tablet 00 [facility] 2020-11 Yes TAKE [address] [facility] [facility] (LIPITOR) 0-15 TABLET BY Laura es 40 MG 00:00: MOUTH Medical tablet 00 [facility] 2020-11 Yes TAKE [address] [facility] [facility] (LIPITOR) 0-15 TABLET BY Laura es 40 MG 00:00: MOUTH Medical tablet 00 [facility] 2020-11 Yes TAKE [address] [facility] [facility] (LIPITOR) 0-15 TABLET BY Laura es 40 MG 00:00: MOUTH Medical tablet 00 [facility] 2020-11 Yes TAKE [address] [facility] [facility] (LIPITOR) 0-15 TABLET BY Laura es 40 MG 00:00: MOUTH Medical tablet 00 [facility] 2020-11 Yes TAKE [address] [facility] [facility] (LIPITOR) 0-15 TABLET BY Laura es 40 MG 00:00: MOUTH Medical tablet 00 [facility] 2020-11 Yes TAKE [address] [facility] [facility] (LIPITOR) 0-15 TABLET BY Laura es 40 MG 00:00: MOUTH Medical tablet 00 [facility] 2020-11 Yes TAKE [address] [facility] [facility] (LIPITOR) 0-15 TABLET BY Laura es 40 MG 00:00: MOUTH Medical tablet 00 [facility] 2020-11 Yes TAKE [address] [facility] [facility] (LIPITOR) 0-15 TABLET BY Laura es 40 MG 00:00: MOUTH Medical tablet 00 [facility] 2020-11 Yes TAKE [address] [facility] [facility] (LIPITOR) 0-15 TABLET BY Laura es 40 MG 00:00: MOUTH Medical tablet 00 [facility] 2020-11 Yes TAKE [address] [facility] [facility] (LIPITOR) 0-15 TABLET BY Laura es 40 MG 00:00: MOUTH Medical tablet 00 [facility] 2020-11 Yes TAKE [address] [facility] [facility] (LIPITOR) 0-15 TABLET BY Laura es 40 MG 00:00: MOUTH Medical tablet 00 [facility] 2020-11 Yes TAKE [address] [facility] [facility] (LIPITOR) 0-15 TABLET BY Laura es 40 MG 00:00: MOUTH Medical tablet 00 [facility] 2020-11 Yes TAKE [address] [facility] [facility] (LIPITOR) 0-15 TABLET BY Laura es 40 MG 00:00: MOUTH Medical tablet 00 [facility] 2020-11 Yes TAKE [address] [facility] [facility] (LIPITOR) 0-15 TABLET BY Laura es 40 MG 00:00: [facility]OUTH [facility] Yes [facility] [address] [facility] [facility] (LIPITOR) 0-15 TABLET BY Laura es 40 MG 00:00: MOUTH [facility]11 Yes TAKE [address] [facility] [facility] (LIPITOR) 0-15 TABLET BY Laura es 40 MG 00:00: MOUTH Medical tablet 00 [facility] 2020-11 Yes TAKE [address] [facility] [facility] (LIPITOR) 0-15 TABLET BY Laura es 40 MG 00:00: MOUTH [facility]11 Yes TAKE [address] [facility] [facility] (LIPITOR) 0-15 TABLET BY Laura es 40 MG 00:00: MOUTH Medical tablet 00 [facility] 2020-11 Yes TAKE [address] [facility] [facility] (LIPITOR) 0-15 TABLET BY Laura es 40 MG 00:00: MOUTH Medical tablet 00 [facility] 2020-11 Yes TAKE [address] [facility] [facility] (LIPITOR) 0-15 TABLET BY Laura es 40 MG 00:00: MOUTH Medical tablet 00 [facility] 2020- No TAKE [address] [facility] [facility] (LIPITOR) 9-15 10-15 TABLET BY Jackeline kes 40 MG 00:00: 00:00 MOUTH Medical tablet 00 :00 [facility] 2020- No TAKE [address] [facility] (LIPITOR) 9-15 10-15 TABLET BY Jackeline kes 40 MG 00:00: 00:00 MOUTH Medical tablet 00 :00 [facility] 2020- No TAKE [address] [facility] (LIPITOR) 9-15 10-15 TABLET BY Jackeline kes 40 MG 00:00: 00:00 [facility]OUTH [facility] [address] [facility] (REMERON) 9-01 by [facility] 30 MG 11:38: nightly. Medical tablet 49 [place] mirtazapine Yes 30mg QD Take [address] (REMERON) 9-01 by [facility] 30 MG 11:38: nightly. Medical tablet 49 [place] mirtazapine 2021-0 Yes 30mg QD Take [address] (REMERON) 9- by [facility] 30 MG 11:38: nightly. Medical tablet 49 [place] mirtazapine 2020-0 Yes 30mg QD Take [address] (REMERON) -01 by mouth [facility] 30 MG 11:38: nightly. Medical tablet 49 [place] mirtazapine 2020-0 Yes 30mg QD Take [address] (REMERON) 9- by [facility] 30 MG 11:38: nightly. Medical tablet 49 [place] mirtazapine 2020-0 Yes 30mg QD Take [address] [facility] (REMERON) 9- by [facility] 30 MG 11:38: nightly. Medical tablet 49 [place] mirtazapine 2020-0 Yes 30mg QD Take [address] [facility] [facility] (REMERON) 07-07 by mouth [facility] 30 MG 11:38: nightly. Medical tablet 49 [place] mirtazapine 2020-0 Yes 30mg QD Take [address] [facility] (REMERON) 07-07 by mouth [facility] 30 MG 11:38: nightly. Medical tablet 49 [place] mirtazapine 2020-0 Yes 30mg QD Take [address] [facility] (REMERON) - by mouth [facility] 30 MG 11:38: nightly. Medical tablet 49 [place] mirtazapine 2020-0 Yes 30mg QD Take [address] [facility] (REMERON) 07-07 by mouth [facility] 30 MG 11:38: nightly. Medical tablet 49 [place] mirtazapine 2020-0 Yes 30mg QD Take [address] [facility] (REMERON) - by mouth [facility] 30 MG 11:38: nightly. Medical tablet 49 [place] mirtazapine 2020-0 Yes 30mg QD Take [address] [facility] [address] (REMERON) - by mouth [facility] 30 MG 11:38: nightly. Medical tablet 49 [place] mirtazapine 2020-0 Yes 30mg QD Take [address] [facility] [address] (REMERON) -01 by mouth [facility] 30 MG 11:38: nightly. Medical tablet 49 [place] mirtazapine 2020-0 Yes 30mg QD Take [address] [facility] [address] (REMERON) -01 by mouth [facility] 30 MG 11:38: nightly. Medical tablet 49 [place] mirtazapine 2020-0 Yes 30mg QD Take [address] [facility] (REMERON) - by mouth [facility] 30 MG 11:38: nightly. Medical tablet 49 [place] mirtazapine 0 Yes 30mg QD Take [address] [facility] (REMERON) 07-07 by mouth [facility] 30 MG 11:38: nightly. Medical tablet 49 [place] mirtazapine 0 Yes 30mg QD Take [address] [facility] (REMERON) 07-07 by mouth [facility] 30 MG 11:38: nightly. Medical tablet 49 [place] mirtazapine 2020-0 Yes 30mg QD Take [address] [facility] (REMERON) 07-07 by mouth [facility] 30 MG 11:38: nightly. Medical tablet 49 [place] mirtazapine 0 Yes 30mg QD Take [address] [facility] [facility] (REMERON) 07-07 by mouth [facility] 30 MG 11:38: nightly. Medical tablet 49 [place] mirtazapine 0 Yes 30mg QD Take [address] [facility] (REMERON) 07-07 by mouth [facility] 30 MG 11:38: nightly. Medical tablet 49 [place] mirtazapine 0 Yes 30mg QD Take [address] [facility] [facility] (REMERON) 07-07 by mouth [facility] 30 MG 11:38: nightly. Medical tablet 49 [place] mirtazapine 0 Yes 30mg QD Take [address] [facility] [facility] (REMERON) 07-07 by mouth [facility] 30 MG 11:38: nightly. Medical tablet 49 [place] mirtazapine 0 Yes 30mg QD Take [address] [facility] (REMERON) 07-07 by mouth [facility] 30 MG 11:38: nightly. Medical tablet 49 [place] mirtazapine 0 Yes 30mg QD Take [address] [facility] [facility] (REMERON) 07-07 by mouth [facility] 30 MG 11:38: nightly. Medical tablet 49 [place] mirtazapine 2020-0 Yes 30mg QD Take [address] [facility] (REMERON) 07-07 by mouth [facility] 30 MG 11:38: nightly. Medical tablet 49 [place] mirtazapine 2020-0 Yes 30mg QD Take [address] [facility] [facility] (REMERON) 07-07 by mouth [facility] 30 MG 11:38: nightly. Medical tablet 49 [place] mirtazapine 0 Yes 30mg QD Take 30 [...] daily. Medical tablet 36 [facility] aspirin 81 2020-0 Yes 1{tbl} QD Take [address] [facility] [facility] [...] mg tablet 11:35: daily. Medica l 36 [place] amLODIPine 0 Yes 10mg QD Take [address] (NORVASC) 9-01 by mouth [facility] 10 MG 11:35: daily. Medical tablet 36 Center aspirin 81 0 Yes 1{tbl} QD Take [address] [facility] MG EC 9-01 tablet by [facility] tablet 11:35: mouth Medical 36 daily. Center pantoprazol 2020-0 Yes 20mg QD Take [address] e sodium 9-01 by mouth [facility] (PROTONIX 11:35: daily . Medic al ORAL) 36 Center polyethylen 2020-0 Yes 17g QD Take 17 g C [...] 11:35: mouth Medical 36 daily. Center pantoprazol 2020-0 Yes 20mg QD Take 20 mg [facility] [...] mg tablet 11:35: daily. Medica l 36 [place] amLODIPine 0 Yes 10mg QD Take [address] (NORVASC) 9-01 by mouth [facility] 10 MG 11:35: daily. Medical tablet 36 [place] aspirin 81 0 Yes 1{tbl} QD Take [address] MG EC 9- tablet by [facility] tablet 11:35: mouth Medical 36 daily. [place] pantoprazol 2020-0 Yes 20mg QD Take 20 mg [facility] [...] mg tablet 11:35: daily. Medica l 36 [place] amLODIPine 2020-0 Yes 10mg QD Take [address] (NORVASC) 9-01 by mouth [facility] 10 MG 11:35: daily. Medical tablet 36 [place] aspirin 81 2020-0 Yes 1{tbl} QD Take [address] [facility] [facility] [...] mg tablet 11:35: daily. Medica l 36 [place] amLODIPine 0 Yes 10mg QD Take [address] (NORVASC) 9-01 by mouth [facility] 10 MG 11:35: daily. Medical tablet 36 Center aspirin 81 0 Yes 1{tbl} QD Take [address] MG EC 9-01 tablet by [facility] tablet 11:35: mouth Medical 36 daily. Center pantoprazol 2020-0 Yes 20mg QD Take [address] [facility] sodium 9-01 by mouth [facility] (PROTONIX 11:35: daily . Medic al ORAL) 36 Center polyethylen 2020-0 Yes 17g QD Take 17 g C [...] 11:35: mouth Medical 36 daily. Center pantoprazol 2020-0 Yes 20mg QD Take 20 mg [facility] [...] mg tablet 11:35: daily. Medica l 36 [place] amLODIPine 0 Yes 10mg QD Take [address] (NORVASC) 9-01 by mouth [facility] 10 MG 11:35: daily. Medical tablet 36 [place] aspirin 81 0 Yes 1{tbl} QD Take [address] [facility] [facility] MG EC 9- tablet by [facility] tablet 11:35: mouth Medical 36 daily. [place] pantoprazol 2020-0 Yes 20mg QD Take 20 mg [facility] [...] mg tablet 11:35: daily. Medica l 36 [place] amLODIPine 2020-0 Yes 10mg QD Take [address] (NORVASC) 9-01 by mouth [facility] 10 MG 11:35: daily. Medical tablet 36 [place] aspirin 81 2020-0 Yes 1{tbl} QD Take [address] [facility] [facility] [...] mg tablet 11:35: daily. Medica l 36 [place] amLODIPine 0 Yes 10mg QD Take [address] (NORVASC) 9-01 by mouth [facility] 10 MG 11:35: daily. Medical tablet 36 Center aspirin 81 0 Yes 1{tbl} QD Take [address] [facility] [address] MG EC 9-01 tablet by [facility] tablet 11:35: mouth Medical 36 daily. Center pantoprazol 2020-0 Yes 20mg QD Take [address] [facility] sodium 9-01 by mouth [facility] (PROTONIX 11:35: daily . Medic al ORAL) 36 Center polyethylen 2020-0 Yes 17g QD Take 17 g C [...] 11:35: mouth Medical 36 daily. Center pantoprazol 2020-0 Yes 20mg QD Take 20 mg [facility] [...] mg tablet 11:35: daily. Medica l 36 [place] amLODIPine 0 Yes 10mg QD Take [address] (NORVASC) 9-01 by mouth [facility] 10 MG 11:35: daily. Medical tablet 36 [place] aspirin 81 0 Yes 1{tbl} QD Take [address] [facility] [facility] MG EC 9- tablet by [facility] tablet 11:35: mouth Medical 36 daily. [place] pantoprazol 2020-0 Yes 20mg QD Take 20 mg [facility] [...] mg tablet 11:35: daily. Medica l 36 [place] amLODIPine 2020-0 Yes 10mg QD Take [address] (NORVASC) 9-01 by mouth [facility] 10 MG 11:35: daily. Medical tablet 36 [place] aspirin 81 2020-0 Yes 1{tbl} QD Take [address] [facility] [...] mg tablet 11:35: daily. Medica l 36 [place] amLODIPine 0 Yes 10mg QD Take [address] (NORVASC) 9-01 by mouth [facility] 10 MG 11:35: daily. Medical tablet 36 Center aspirin 81 0 Yes 1{tbl} QD Take [address] [facility] MG EC 9-01 tablet by [facility] tablet 11:35: mouth Medical 36 daily. Center pantoprazol 2020-0 Yes 20mg QD Take [address] [facility] sodium 9-01 by mouth [facility] (PROTONIX 11:35: daily . Medic al ORAL) 36 Center polyethylen 2020-0 Yes 17g QD Take 17 g C [...] 11:35: mouth Medical 36 daily. Center pantoprazol 2020-0 Yes 20mg QD Take 20 mg [facility] [...] mg tablet 11:35: daily. Medica l 36 [place] amLODIPine 0 Yes 10mg QD Take [address] (NORVASC) 9-01 by mouth [facility] 10 MG 11:35: daily. Medical tablet 36 [place] aspirin 81 0 Yes 1{tbl} QD Take [address] [facility] MG EC 9- tablet by [facility] tablet 11:35: mouth Medical 36 daily. [place] pantoprazol 2020-0 Yes 20mg QD Take 20 mg [facility] [...] mg tablet 11:35: daily. Medica l 36 [place] amLODIPine 2020-0 Yes 10mg QD Take [address] (NORVASC) 9-01 by mouth [facility] 10 MG 11:35: daily. Medical tablet 36 [place] aspirin 81 2020-0 Yes 1{tbl} QD Take [address] [facility] [...] mg tablet 11:35: daily. Medica l 36 [place] amLODIPine 0 Yes 10mg QD Take [address] (NORVASC) 9-01 by mouth [facility] 10 MG 11:35: daily. Medical tablet 36 Center aspirin 81 0 Yes 1{tbl} QD Take [address] [facility] [address] MG EC 9-01 tablet by [facility] tablet 11:35: mouth Medical 36 daily. Center pantoprazol 2020-0 Yes 20mg QD Take [address] [facility] sodium 9-01 by mouth [facility] (PROTONIX 11:35: daily . Medic al ORAL) 36 Center polyethylen 2020-0 Yes 17g QD Take [address] e glycol 9-01 by mouth [facility] (GLYCOLAX) 11:35: daily. Medic al 17 gram 36 Center packet clopidogreL 2021-0 Yes 75mg QD Take 75 mg [facility] [...] mg tablet 11:35: daily. Medica l 36 [place] amLODIPine 0 Yes 10mg QD Take [address] (NORVASC) 9-01 by mouth [facility] 10 MG 11:35: daily. Medical tablet 36 [place] aspirin 81 0 Yes 1{tbl} QD Take [address] [facility] [facility] MG EC 9-01 tablet by [facility] tablet 11:35: mouth Medical 36 daily. [place] pantoprazol 0 Yes 20mg QD Take 20 [...] tablet 11:35: daily. Medica l 36 Center metoprolol Yes TAKE 1 [facility] [...] No TAKE [address] [facility] (LIPITOR) 8-15 TABLET BY Jackeline kes 40 MG 00:00: 00:00 MOUTH Medical tablet 00 :00 NIGHTLY Center atorvastati 2020- No TAKE [address] [facility] (LIPITOR) 06-22-15 TABLET BY Jackeline kes 40 MG 00:00: 00:00 MOUTH Medical tablet 00 :00 NIGHTLY Center traMADoL Yes 50mg Take [address] [facility] [...] Pain. Max Daily Amount: 6 tablets traMADoL Yes 50mg Take [address] [facility] [...] [facility] en-codeine 7-28 tablet by [place] [facility] (TYLENOL 00:00: mouth Medical #3) 300-30 [...] [facility] en-codeine 7-28 tablet by [place] (TYLENOL 00:00: mouth Medical #3) 300-30 [...] [facility] en-codeine 7-28 tablet by [place] (TYLENOL 00:00: mouth Medical #3) 300-30 [...] Pain. Max Daily Amount: 6 tablets traMADoL Yes 50mg Take [address] [facility] [...] for Pain. Max Daily Amount: 6 tablets nitroglycer 2021- No Put 1 pill [facility] [...] if pain unrelieved 5min after 1st dose. Bupivicaine Bupivicaine 0 No 2.5mg Common Browns Browns 4-15 Spirit 00:00: - [facility] Kenalog Kenalog 2020-0 No 40mg Common (Triamcinol (Triamcinol 4-15 S pirit one) one) 00:00: - [facility] Bupivicaine Bupivicaine 2020-0 No 2.5mg Common Browns Browns 4-15 Spirit 00:00: - [facility] Kenalog Kenalog 2020-0 No 40mg Common (Triamcinol (Triamcinol 4-15 S pirit one) one) 00:00: - [facility] Bupivicaine Bupivicaine 2020-0 No Common Browns Browns 4-15 Spirit 00:00: - [facility] 00 [facility] Kenalog Kenalog 2020-0 No 40mg Common (Triamcinol (Triamcinol 4-15 S pirit one) one) 00:00: - [facility] Bupivicaine Bupivicaine 2020-0 No Common Browns Browns 4-15 Spirit 00:00: - [facility] Kenalog Kenalog 2020-0 No 40mg Common (Triamcinol (Triamcinol 4-15 S pirit one) one) 00:00: - [facility] 00 [facility] Bupivicaine Bupivicaine 2020-0 No Common Browns Browns 4-15 Spirit 00:00: - [facility] 00 [facility] Kenalog Kenalog 2020-0 No 40mg Common (Triamcinol (Triamcinol 4-15 S pirit one) one) 00:00: - [facility] 00 [facility] Bupivicaine Bupivicaine 2020-0 No 2.5mg Common Browns Browns 4-15 Spirit 00:00: - [facility] 00 [facility] Kenalog Kenalog 2020-0 No 40mg Common (Triamcinol (Triamcinol 4-15 S pirit one) one) 00:00: - [facility] 00 [facility] Bupivicaine Bupivicaine 2020-0 No 2.5mg Common Browns Browns 4-15 Spirit 00:00: - [facility] 00 [facility] Kenalog Kenalog 2020-0 No 40mg Common (Triamcinol (Triamcinol 4-15 S pirit one) one) 00:00: - [facility] 00 [facility] Bupivicaine Bupivicaine 2020-0 No 2.5mg Common Browns Browns 4-15 Spirit 00:00: - [facility] 00 [facility] Kenalog Kenalog 2020-0 No 40mg Common (Triamcinol (Triamcinol 4-15 S pirit one) one) 00:00: - [facility] 00 [facility] Bupivicaine Bupivicaine 2020-0 No 2.5mg Common Browns Browns 4-15 Spirit 00:00: - [facility] 00 [facility] Kenalog Kenalog 2020-0 No 40mg Common (Triamcinol (Triamcinol 4-15 S pirit one) one) 00:00: - [facility] 00 [facility] Bupivicaine Bupivicaine 2020-0 No 2.5mg Common Browns Browns 4-15 Spirit 00:00: - [facility] 00 [facility] Kenalog Kenalog 2020-0 No 40mg Common (Triamcinol (Triamcinol 4-15 S pirit one) one) 00:00: - [facility] 00 [facility] Bupivicaine Bupivicaine 2020-0 No 2.5mg Common Browns Browns 4-15 Spirit 00:00: - [facility] 00 [facility] Kenalog Kenalog 0 No 40mg Common (Triamcinol (Triamcinol 4-15 S pirit one) one) 00:00: - [facility] 00 [facility] Bupivicaine Bupivicaine 2020-0 No 2.5mg Common Browns Browns 4-15 Spirit 00:00: - [facility] 00 [facility] Kenalog Kenalog 0 No 40mg Common (Triamcinol (Triamcinol 4-15 S pirit one) one) 00:00: - [facility] 00 [facility] Bupivicaine Bupivicaine 2020-0 No 2.5mg Common Browns Browns 4-15 Spirit 00:00: - [facility] 00 [facility] Kenshannan Kenalog 0 No 40mg Common (Triamcinol (Triamcinol 4-15 S pirit one) one) 00:00: - [facility] 00 [facility] Bupivicaine Bupivicaine 2020-0 No 2.5mg Common Browns Browns 4-15 Spirit 00:00: - [facility] 00 [facility] Kenalog Kenalog 0 No 40mg Common (Triamcinol (Triamcinol 4-15 S pirit one) one) 00:00: - [facility] 00 [facility] Bupivicaine Bupivicaine 2020-0 No 2.5mg Common Browns Browns 4-15 Spirit 00:00: - [facility] 00 [facility] Kenalog Kenalog 2020-0 No 40mg Common (Triamcinol (Triamcinol 4-15 S pirit one) one) 00:00: - [facility] 00 [facility] Bupivicaine Bupivicaine 2020-0 No 2.5mg Common Browns Browns 4-15 Spirit 00:00: - [facility] 00 [facility] Kenalog Kenalog 2020-0 No 40mg Common (Triamcinol (Triamcinol 4-15 S pirit one) one) 00:00: - [facility] 00 [facility] cyclobenzap 2020-0 Yes 1{tbl} Take [address] rine 1-13 tablet by Humberto (FLEXERIL) 00:00: mouth Medica l 10 MG [...] night as needed for Muscle spasms . methylPREDN methylPREDN 2020-0 No methylPRED ISolone 4 ISolone 4 7- NISolone 4 MG MG 00:00: MG 00 [...] NISolone 4 MG MG 00:00: MG 00 atorvastati 2020-0 No 1mg n 10 mg [...] 1mg 0.4 mg 4-23 capsule 00:00: 00 MethylPREDN MethylPREDN 2019-0 Yes Jorge as Common ISolone ISolone 07-25 Leonard directed Spiri t 00:00: - [facility] 00 [facility] methylPREDN methylPREDN 2019-0 No methylPRED [...] Leonard directed Spirit 00:00: - [facility] 00 [facility] traMADol traMADol 2019-0 No traMADol [...] MG 9-03 HCl 50 MG 00:00: 00 amLODIPine 2016-11 Yes 10mg Take 10 mg U nivers 10 mg -22 by mouth ity of tablet 12:56: daily. [address] atorvastati 2016-11 Yes 10mg Take 10 mg Univers n 10 mg -22 by mouth ity of tablet 12:56: daily. [address] losartan 50 2016-11 Yes 50mg Take 50 mg [facility] mg tablet 22 by mouth ity of 12:56: daily. [address] omeprazole 2016-11 Yes 40mg Take 40 mg U nivers 40 mg -22 by mouth ity of capsule 12:56: daily. [address] oxybutynin 2016-11 Yes 5mg Take 5 mg Un erlin chloride 5 -22 by mouth ity o f mg tablet 12:56: daily. [address] tamsulosin 2016-11 Yes .4mg Take 0.4 Uni vers 0.4 mg 24 1-22 mg by ity of hr capsule 12:56: mouth [place] 23 daily. [facility] amLODIPine 2016-11 Yes 10mg Take 10 mg U nivers 10 mg -22 by mouth ity of tablet 12:56: daily. [address] atorvastati 2016-11 Yes 10mg Take 10 mg [facility] n 10 mg 22 by mouth ity of tablet 12:56: daily. [address] losartan 50 2016-11 Yes 50mg Take 50 mg Univers mg tablet 22 by mouth ity of 12:56: daily. [address] omeprazole 2016-11 Yes 40mg Take 40 mg U nivers 40 mg -22 by mouth ity of capsule 12:56: daily. [address] oxybutynin 2016-11 Yes 5mg Take 5 mg Un erlin chloride 5 11-27 by mouth ity o f mg tablet 12:56: daily. [address] tamsulosin 2016-11 Yes .4mg Take 0.4 Uni vers 0.4 mg 24 1-22 mg by ity of hr capsule 12:56: mouth [place] 23 daily. [facility] Omeprazole Omeprazole Yes Jorge not Common Leonard defined [facility] Aspirin 81 Aspirin 81 Yes Jorge not Common Leonard defined [facility] atorvastati atorvastati Yes Jorge not Common n n Leonard defined [facility] Amlodipine Amlodipine Yes Jorge not Common Besylate Besylate Leonard defined Spir [facility] Losartan Losartan Yes Jorge not Comm on Potassium Potassium Leonard defined [facility] Folic Acid Folic Acid Yes Jorge not Common Leonard defined [facility] Clindamycin Clindamycin Yes Jorge not Common HCl HCl Leonard defined [facility] BusPIRone BusPIRone Yes Jorge not Co mmon HCl HCl Leonard defined [facility] Mirtazapine Mirtazapine Yes Jorge not Common Leonard defined [facility] Atorvastati Atorvastati Yes Jorge not Common n Calcium n Calcium Leonard defined [facility] MAGnesium-O MAGnesium-O Yes Jorge not Common xide xide Leonard defined [facility] Flucelvax Flucelvax Yes Jorge not Co mmon Quadrivalen Quadrivalen Leonard defined [facility] Baclofen Baclofen Yes Jorge not Comm on Leonard defined [facility] Dicyclomine Dicyclomine No 2{capsu TID Dicyclomin HCl [...] MG 100 MG Aspir-81 81 Aspir-81 81 202- No 1{table QD Aspir-81 MG MG 01-20 [...] FLUZONE HIGH DOSE 2022-09-26 [facility]pleted [facility] OVER 65 OVER 65 09:02:00 [facility] FLUZONE HIGH DOSE FLUZONE HIGH DOSE 2022-09-26 Completed [facility] OVER 65 OVER 65 09:02:00 [facility] Bupivicaine Browns Bupivicaine Browns 2021-02-18 Completed [facility] 08:53:00 [facility] Kenalog Kenalog 2021-02-18 Completed [facility] (Triamcinolone) (Triamcinolone) 08:53:00 - [facility] Bupivicaine Browns Bupivicaine Browns 2021-02-18 Completed [facility] 08:53:00 [facility] Kenalog Kenalog 2021-02-18 Completed [facility] (Triamcinolone) (Triamcinolone) 08:53:00 [facility] Bupivicaine Browns Bupivicaine Browns 2021-02-18 Completed [facility] 08:53:00 - [facility] Kenalog Kenalog 2021-02-18 Completed [facility] (Triamcinolone) (Triamcinolone) 08:53:00 [facility] Vital Signs Vital Name Observation Time Observation [...] 83.779 kg HEIGHT 2021-01-08 09:31:00 165.1 cm respiratory rate 2022-09-26 09:10:00 18 /min [facility] blood pressure 2022-09-26 09:10:00 132 mm[Hg] Common [facility] - systolic [facility] blood pressure 2022-09-26 09:10:00 70 mm[Hg] [facility] - diastolic [facility] height 2022-09-26 09:10:00 64 [in_i] Common [facility] weight 2022-09-26 09:10:00 168.3 [lb_av] Common [facility] temperature 2022-09-26 09:10:00 96.7 [degF] Common [facility] bmi 2022-09-26 09:10:00 28.89 kg/m2 [facility] oximetry 2022-09-26 09:10:00 98 % [facility] height 2022-06-15 14:00:00 64 [in_i] [facility] weight 2022-06-15 14:00:00 178.2 [lb_av] [facility] temperature 2022-06-15 14:00:00 97.5 [degF] Common [facility] bmi 2022-06-15 14:00:00 30.58 kg/m2 [facility] oximetry 2022-06-15 14:00:00 99 % [facility] respiratory rate 2022-06-15 14:00:00 16 /min [facility] blood pressure 2022-06-15 14:00:00 138 mm[Hg] [facility] - systolic [facility] blood pressure 2022-06-15 14:00:00 65 mm[Hg] [facility] - diastolic [facility] height 2022-06-02 10:10:00 64 [in_i] [facility] weight 2022-06-02 10:10:00 177 [lb_av] [facility] temperature 2022-06-02 10:10:00 98.2 [degF] Common S [facility]irit [facility] bmi 2022-06-02 10:10:00 30.38 kg/m2 [facility] oximetry 2022-06-02 10:10:00 98 % Common [facility] respiratory rate 2022-06-02 10:10:00 16 /min Comm on [facility] blood pressure 2022-06-02 10:10:00 132 mm[Hg] Common [facility] - systolic [facility] blood pressure 2022-06-02 10:10:00 76 mm[Hg] Common [facility] - diastolic [facility] height 2022-05-16 14:45:00 64 [in_i] Common [facility] weight 2022-05-16 14:45:00 178 [lb_av] [facility] temperature 2022-05-16 14:45:00 97.4 [degF] Common [facility] bmi 2022-05-16 14:45:00 30.55 kg/m2 Common [facility] blood pressure 2022-05-16 14:45:00 138 mm[Hg] Common [facility] - systolic [facility] blood pressure 2022-05-16 14:45:00 84 mm[Hg] Common [facility] - diastolic [facility] Systolic blood 2022-04-28 13:08:00 142 mm[Hg] Univer sity of pressure [facility] Diastolic blood 2022-04-28 13:08:00 82 mm[Hg] Unive rsity of pressure [facility] Heart rate 2022-04-28 13:08:00 81 /min [facility] height 2022-04-28 13:08:00 165.1 cm Universi ty [facility] Body weight 2022-04-28 13:08:00 79.833 kg Universi ty [facility] BMI 2022-04-28 13:08:00 29.29 kg/m2 Universi [facility] height 2022-03-24 13:15:00 64 [in_i] Common [facility] weight 2022-03-24 13:15:00 177 [lb_av] Common [facility] temperature 2022-03-24 13:15:00 98.5 [degF] Common S [facility]irit [facility] bmi 2022-03-24 13:15:00 30.38 kg/m2 [facility] blood pressure 2022-03-24 13:15:00 142 mm[Hg] [facility] blood pressure 2022-03-24 13:15:00 86 mm[Hg] [facility] diastolic [facility] height 2022-03-02 09:20:00 64 [in_i] Common [facility] weight 2022-03-02 09:20:00 172.0 [lb_av] [facility] temperature 2022-03-02 09:20:00 98.4 [degF] [facility] bmi 2022-03-02 09:20:00 29.52 kg/m2 [facility] oximetry 2022-03-02 09:20:00 98 % [facility] respiratory rate 2022-03-02 09:20:00 18 /min Comm on [facility] blood pressure 2022-03-02 09:20:00 135 mm[Hg] [facility] - systolic [facility] blood pressure 2022-03-02 09:20:00 72 mm[Hg] [facility] height 2022-01-17 13:30:00 64 [in_i] Common [facility] weight 2022-01-17 13:30:00 177 [lb_av] [facility] temperature 2022-01-17 13:30:00 98.3 [degF] [facility] bmi 2022-01-17 13:30:00 30.38 kg/m2 Common [facility] blood pressure 2022-01-17 13:30:00 136 mm[Hg] [facility] blood pressure 2022-01-17 13:30:00 84 mm[Hg] [facility] height 2021-12-02 10:10:00 64 [in_i] Common [facility] weight 2021-12-02 10:10:00 177.4 [lb_av] Common [facility] temperature 2021-12-02 10:10:00 98.4 [degF] Common S [facility]irit [facility] bmi 2021-12-02 10:10:00 30.45 kg/m2 [facility] oximetry 2021-12-02 10:10:00 99 % [facility] respiratory rate 2021-12-02 10:10:00 18 /min Comm on [facility] blood pressure 2021-12-02 10:10:00 132 mm[Hg] Common [facility] - systolic [facility] blood pressure 2021-12-02 10:10:00 72 mm[Hg] [facility] height 2021-12-02 10:40:00 64 [in_i] [facility] weight 2021-12-02 10:40:00 177.4 [lb_av] [facility] temperature 2021-12-02 10:40:00 98.4 [degF] [facility] bmi 2021-12-02 10:40:00 30.45 kg/m2 [facility] oximetry 2021-12-02 10:40:00 99 % [facility] respiratory rate 2021-12-02 10:40:00 18 /min Comm on [facility] blood pressure 2021-12-02 10:40:00 132 mm[Hg] [facility] systolic [facility] blood pressure 2021-12-02 10:40:00 72 mm[Hg] [facility] diastolic [facility] height 2021-11-11 10:00:00 64 [in_i] Common S [facility]irit [facility] weight 2021-11-11 10:00:00 170.8 [lb_av] [facility] temperature 2021-11-11 10:00:00 94.6 [degF] [facility] bmi 2021-11-11 10:00:00 29.31 kg/m2 Common S [facility] - [facility] blood pressure 2021-11-11 10:00:00 136 mm[Hg] [facility] - systolic [facility] blood pressure 2021-11-11 10:00:00 78 mm[Hg] [facility] height 2021-10-20 11:15:00 64 [in_i] Common [facility] weight 2021-10-20 11:15:00 172 [lb_av] [facility] temperature 2021-10-20 11:15:00 96.8 [degF] [facility] bmi 2021-10-20 11:15:00 29.52 kg/m2 [facility] oximetry 2021-10-20 11:15:00 99 % [facility] respiratory rate 2021-10-20 11:15:00 18 /min Comm on [facility] blood pressure 2021-10-20 11:15:00 151 mm[Hg] Common [facility] - systolic [facility] blood pressure 2021-10-20 11:15:00 70 mm[Hg] [facility] height 2021-10-14 16:20:00 64 [in_i] Common [facility] weight 2021-10-14 16:20:00 175 [lb_av] [facility] temperature 2021-10-14 16:20:00 97.8 [degF] Common [facility] bmi 2021-10-14 16:20:00 30.04 kg/m2 Common [facility] oximetry 2021-10-14 16:20:00 98 % Common S [facility]irit - [facility] blood pressure 2021-10-14 16:20:00 153 mm[Hg] [facility] - systolic [facility] blood pressure 2021-10-14 16:20:00 75 mm[Hg] [facility] - diastolic [facility] height 2021-10-12 13:00:00 64 [in_i] Common S [facility] - [facility] weight 2021-10-12 13:00:00 175 [lb_av] Common [facility] - [facility] temperature 2021-10-12 13:00:00 97.6 [degF] Common [facility] - [facility] bmi 2021-10-12 13:00:00 30.04 kg/m2 [facility] - [facility] blood pressure 2021-10-12 13:00:00 124 mm[Hg] [facility] - systolic [facility] blood pressure 2021-10-12 13:00:00 72 mm[Hg] [facility] - diastolic [facility] height 2021-09-16 14:40:00 64 [in_i] [facility] weight 2021-09-16 14:40:00 174.6 [lb_av] [facility] temperature 2021-09-16 14:40:00 97.5 [degF] [facility] bmi 2021-09-16 14:40:00 29.97 kg/m2 [facility] - [facility] oximetry 2021-09-16 14:40:00 95 % [facility] - [facility] blood pressure 2021-09-16 14:40:00 144 mm[Hg] [facility] - systolic [facility] blood pressure 2021-09-16 14:40:00 77 mm[Hg] [facility] - diastolic [facility] height 2021 09:10:00 64 [in_i] [facility] - [facility] weight 2021 09:10:00 177.6 [lb_av] [facility] temperature 2021 09:10:00 97.4 [degF] Common [facility] bmi 2021 09:10:00 30.48 kg/m2 [facility] oximetry 2021 09:10:00 97 % [facility] respiratory rate 2021 09:10:00 16 /min Comm on [facility] blood pressure 2021 09:10:00 138 mm[Hg] Common [facility] - systolic [facility] blood pressure 2021 09:10:00 71 mm[Hg] Common [facility] - diastolic [facility] height 2021-08-12 13:30:00 64 [in_i] [facility] weight 2021-08-12 13:30:00 175.5 [lb_av] [facility] bmi 2021-08-12 13:30:00 30.12 kg/m2 [facility] blood pressure 2021-08-12 13:30:00 144 mm[Hg] Common [facility] - systolic [facility] blood pressure 2021-08-12 13:30:00 84 mm[Hg] Common [facility] - diastolic [facility] HEIGHT 2021-06-02 08:50:00 157.5 cm WEIGHT 2021-06-02 08:50:00 79.289 kg WEIGHT 2021-05-17 04:44:00 79.379 kg WEIGHT 2021-05-16 [...] 165.1 cm WEIGHT 2021-04-29 09:48:00 81.874 kg WEIGHT 2021-03-22 09:56:00 81.647 kg WEIGHT 2021-03-22 09:56:00 81.647 kg HEIGHT 2021-01-04 12:09:00 165.1 cm WEIGHT 2021-01-04 12:09:00 81.647 kg HEIGHT 2021-01-04 12:09:00 165.1 cm WEIGHT 2021-01-04 12:09:00 81.647 kg Height 2023-03-14 19:05:00 5 [ft_i] [facility] Weight 2023-03-14 19:05:00 [facility] BMI Calculated 2023-03-14 19:05:00 [facility] [place] Systolic (mm Hg) 2023-03-14 19:05:00 [facility] Diastolic (mm Hg) 2023-03-14 19:05:00 [facility] [place] Heart Rate 2023-03-14 19:05:00 [facility] Systolic (mm Hg) 2022-11-09 17:18:00 [facility] [place] Diastolic (mm Hg) 2022-11-09 17:18:00 [facility] Heart Rate 2022-11-09 17:18:00 [facility] Height 2022-11-09 17:18:00 5 [ft_i] [facility] Weight 2022-11-09 17:18:00 [facility] BMI Calculated 2022-11-09 17:18:00 [facility] [place] Systolic (mm Hg) 2022-09-28 17:40:00 [facility] Diastolic (mm Hg) 2022-09-28 17:40:00 [facility] Heart Rate 2022-09-28 17:40:00 [facility] Height 2022-09-28 17:40:00 5 [ft_i] [facility] Weight 2022-09-28 17:40:00 [facility] BMI Calculated 2022-09-28 17:40:00 [facility] Height 2022-08-12 15:38:00 162.56 cm [facility] Weight 2022-08-12 15:38:00 [facility] BMI Calculated 2022-08-12 15:38:00 [facility] [place] Height 2022-08-08 20:15:00 162.56 cm [facility] Weight 2022-08-08 20:15:00 [facility] BMI Calculated 2022-08-08 20:15:00 [facility] [place] Systolic (mm Hg) 2022-07-19 19:39:00 [facility] Diastolic (mm Hg) 2022-07-19 19:39:00 [facility] Heart Rate 2022-07-19 19:39:00 [facility] Respitory Rate 2022-07-19 19:39:00 [facility] [place] Height 2022-07-19 19:39:00 160.02 cm [facility] Weight 2022-07-19 19:39:00 [facility] BMI Calculated 2022-07-19 19:39:00 [facility] [place] Heart Rate 2022-07-08 17:03:00 [facility] Systolic (mm Hg) 2022-07-08 17:03:00 [facility] [place] Diastolic (mm Hg) 2022-07-08 17:03:00 [facility] [place] Height 2022-07-08 17:03:00 162.56 cm [facility] Weight 2022-07-08 17:03:00 [facility] BMI Calculated 2022-07-08 17:03:00 [facility] Systolic (mm Hg) 2022-06-02 19:25:00 [facility] Diastolic (mm Hg) 2022-06-02 19:25:00 [facility] Heart Rate 2022-06-02 19:25:00 [facility] Respitory Rate 2022-06-02 19:25:00 [facility] Height 2022-06-02 19:25:00 160.02 cm [facility] Weight 2022-06-02 19:25:00 [facility] BMI Calculated 2022-06-02 19:25:00 [facility] Systolic (mm Hg) 2022-04-21 20:49:00 [facility] Diastolic (mm Hg) 2022-04-21 20:49:00 [facility] [place] Heart Rate 2022-04-21 20:49:00 [facility] Respitory Rate 2022-04-21 20:49:00 [facility] [place] Height 2022-04-21 20:49:00 160.02 cm [facility] Weight 2022-04-21 20:49:00 [facility] BMI Calculated 2022-04-21 20:49:00 [facility] Heart Rate 2022-03-23 20:13:00 [facility] Systolic (mm Hg) 2022-03-23 20:13:00 [facility] Diastolic (mm Hg) 2022-03-23 20:13:00 [facility] [place] Height 2022-03-23 20:13:00 160.02 cm [facility] Weight 2022-03-23 20:13:00 [facility] [place] [facility] BMI Calculated 2022-03-23 20:13:00 [facility] [place] Systolic (mm Hg) 2022-03-14 18:40:00 [facility] [place] Diastolic (mm Hg) 2022-03-14 18:40:00 [facility] Heart Rate 2022-03-14 18:40:00 [facility] Respitory Rate 2022-03-14 18:40:00 [facility] [place] Height 2022-03-14 18:40:00 160.02 cm [facility] Weight 2022-03-14 18:40:00 [facility] BMI Calculated 2022-03-14 18:40:00 [facility] BP Systolic 2020-02-27 09:50:00 153 mm[Hg] BP Diastolic 2020-02-27 09:50:00 90 mm[Hg] Weight Measured 2020-02-27 09:50:00 184.00 pounds Height Measured 2020-02-27 09:50:00 65.00 inches Body Temperature 2020-02-27 09:50:00 98.60 degrees Heart Rate 2020-02-27 09:50:00 95.00 /min Respiratory Rate 2020-02-27 09:50:00 Procedures Procedure Date / Time Performed Performing Clinician [facility] e EXTERNAL PROVIDER 2023-03-23 05:01:00 Doctor Unassigned, No [facility] RECORDS Name [facility] XR HIP 3-4 VIEWS 2022-04-19 [facility] 2022-04-11 [facility] SPINE EXTERNAL 2022-04-11 16:56[facility]R SPINE EXTERNAL 2022-03-24 19:48:25 [facility] STUDY Anoscopy; diagnostic, 2022-03-23 21:58:00 Erika Valenzuela including collection of specimen(s) by brushing or washing, when performed (separate procedure) CTA AAA AND RUNOFF 2021-09-10 16:10:00 Roseline Landry [facility] POCT-CREATININE 2021-09-10 15:33:00 [facility]sup[facility] Bypass<sup>1</sup> [facility] Surgery<sup>3</sup> [facility] Plan of Care Planned Activity Planned Date Details Comments Source Future Scheduled 2027-09-[address] [facility]procedure) [code = 558176855] Future Scheduled 2027-09-[address] [facility] 00:00:[facility] colon (procedure) [code = 208701506] Future Scheduled 2027-09-[address] [facility] 00[facility] colon (procedure) [code = 308498176] Future Scheduled 2027-09-[address] [facility] 00[facility]00:00 [facility] colon (procedure) [code = 564652482] Future Scheduled 2027-09-[address] [facility] 00:00:00 [facility] colon (procedure) [code = 572761504] Future Scheduled 2027-09-[address] [facility] 00:00:00 [facility] colon (procedure) [code = 966066788] Future Scheduled 2027-09-[address] [facility] 00:00:00 [facility] colon (procedure) [code = 507047893] Future Scheduled 2027-09-[address] [facility] 00:00:00 [facility] colon (procedure) [code = 662754956] Future Scheduled 2027-09-[address] [facility] 00:00:00 [facility] colon (procedure) [code = 995346529] Future Scheduled 2027-09-[address] [facility] 00:00:00 [facility] colon (procedure) [code = 928426972] Future Scheduled 2027-09-[address] [facility] 00:00:00 [facility] colon (procedure) [code = 448608347] Future Scheduled 2027-09-[address] [facility] 00:00:00 [facility] colon (procedure) [code = 064525968] Future Scheduled 2027-09-[address] [facility] 00:00:00 [facility] colon (procedure) [code = 483469546] Future Scheduled 2027-09-[address] [facility] 00:00:00 [facility] colon (procedure) [code = 547036668] Future Scheduled 2027-09-[address] [facility] 00:00:00 [facility] colon (procedure) [code = 674436822] Future Scheduled 2027-09-[address] [facility] 00:00:00 [facility] colon (procedure) [code = 270211589] Future Scheduled 2027-09-[address] [facility] 00:00:00 [facility] colon (procedure) [code = 514496604] Future Scheduled 2027-09-[address] [facility] 00:00:00 [facility] colon (procedure) [code = 262098057] Future Scheduled 2027-09-[address] [facility] 00:00:00 [facility] colon (procedure) [code = 237511798] Future Scheduled 2027-09-[address] [facility] 00:00:00 [facility] colon (procedure) [code = 527389590] Future Scheduled 2027-09-[address] [facility] 00:00:00 [facility] colon (procedure) [code = 473332253] Future Scheduled 2027-09-[address] [facility] 00:00:00 [facility] colon (procedure) [code = 214089942] Future Scheduled 2027-09-[address] [facility] 00:00:00 [facility] colon (procedure) [code = 417577124] Future Scheduled 2027-09-[address] [facility] 00[facility]00:00 [facility] colon (procedure) [code = 457886494] Future Scheduled 2027-09-[address] [facility] 00:00:00 [facility] colon (procedure) [code = 665045324] Future Scheduled 2027-09-[address] [facility] 00:00:00 [facility] colon (procedure) [code = 275013039] Future Scheduled 2027-09-[address] [facility] 00:00:00 [facility] colon (procedure) [code = 558652573] Future Scheduled 2027-09-[address] [facility] 00:00:00 [facility] colon (procedure) [code = 178333642] Future Scheduled 2027-09-[address] [facility] 00:00:00 [facility] colon (procedure) [code = 902906705] Future Scheduled 2027-09-[address] [facility] 00:00:00 [facility] colon (procedure) [code = 568785511] Future Scheduled 2027-09-[address] [facility] 00:00:00 [facility] colon (procedure) [code = 249716196] Future Scheduled 2027-09-[address] [facility] 00[facility]00:00 [facility] colon (procedure) [code = 484887949] Future Scheduled 2027-09-[address] [facility] 00:00:00 [facility] colon (procedure) [code = 859803677] Future Scheduled 2027-09-[address] [facility] 00:00:00 [facility] colon (procedure) [code = 450082029] Future Scheduled 2027-09-[address] [facility] 00:00:00 [facility] colon (procedure) [code = 935037329] Future Scheduled 2027-09-[address] [facility] 00:00:00 [facility] colon (procedure) [code = 228358157] Future Scheduled 2027-09-[address] [facility] 00:00:00 [facility] colon (procedure) [code = 867145315] Future Scheduled 2027-09-[address] [facility] 00:00:00 [facility] colon (procedure) [code = 113311732] Future Scheduled 2027-09-[address] [facility] 00:00:00 [facility] colon (procedure) [code = 967155059] Future Scheduled 2027-09-[address] [facility] 00:00:00 [facility] colon (procedure) [code = 259419960] Future Scheduled 2027-09-[address] [facility] 00:00:00 [facility] colon (procedure) [code = 497853228] Future Scheduled 2027-09-[address] [facility] 00:00:00 [facility] colon (procedure) [code = 990720820] Future Scheduled 2027-09-[address] [facility] 00:[facility] colon (procedure) [code = [id number]] Future Scheduled 2027-09-[address] [facility] 00:00:00 [facility] (procedure) [code = [id number]] Future Scheduled 2027-09-[address] [facility] 00:00:00 [facility] (procedure) [code = [id number]] Future Scheduled 2027-09-[address] [facility] 00:00:00 [facility] colon (procedure) [code = [id number]] Future Scheduled 2027-09-[address] [facility] 00:00:00 [facility] colon (procedure) [code = [id number]] Future Scheduled 2027-09-[address] [facility] 00:00:00 [facility] colon (procedure) [code = [id number]] Future Scheduled 2027-09-[address] [facility] 00:[facility]:00 [facility] colon (procedure) [code = [id number]] Future Scheduled 2027-09-[address] [facility] 00:00:00 [facility] colon (procedure) [code = [id number]] Future Scheduled 2027-09-[address] [facility] 00:00:00 [facility] colon (procedure) [code = 479865080] Future Scheduled 2027-09-[address] [facility] 00:00:00 [facility] colon (procedure) [code = [id number]] Future Scheduled 2027-09-[address] [facility] 00:00:00 [facility] colon (procedure) [code = [id number]] Future Scheduled 2027-09-[address] [facility] 00:00:00 [facility] colon (procedure) [code = [id number]] Future Scheduled 2024-05-[address] [facility] 00:00:00 (procedure) [code = [facility] [id number]] Future Scheduled 2024-05-[address] [facility] 00:00:00 (procedure) [code = [facility] [id number]] Future Scheduled 2024-05-[address] [facility] 00:00:00 (procedure) [code = [facility] [id number]] Future Scheduled 2023-07-[address] [facility] 00:00:00 (Season Ended) [code = Medic al Center INFLUENZA VACCINE (Season Ended)] Future Scheduled 2023-07-[address] [facility] 00:00:00 (Season Ended) [code = Medic al Center INFLUENZA VACCINE (Season Ended)] Future Scheduled 2023-07-[address] [facility] 00:00:00 (Season Ended) [code = Medic al Center INFLUENZA VACCINE (Season Ended)] Future Scheduled 2023-07-[address] [facility] Test 00:00:00 (Season Ended) [code = [facility] Center INFLUENZA VACCINE (Season Ended)] Future Scheduled 2023-07-[address] [facility] 00:00:00 (Season Ended) [code = Medic al Center INFLUENZA VACCINE (Season Ended)] Future Scheduled 2023-07-07 Influenza Vaccine (#1) [facility] [code = Influenza Medical Ce nter Vaccine (#1)] Future Scheduled 2023-07-07 Influenza Vaccine (#1) [facility]:00:00 [code = Influenza Medical Ce nter Vaccine (#1)] Future Scheduled 2023-07-07 Influenza Vaccine (#1) [facility]:00:00 [code = Influenza Medical Ce nter Vaccine (#1)] Future Scheduled 2023-07-03 Hepatitis C screening Me [facility] Test 21:27:23 (procedure) [code = [id number]] Future Scheduled 2023-07-03 Screening for [facility] Test 21:27:23 malignant neoplasm of colon (procedure) [code = [id number]] Future Scheduled 2023-07-03 Screening for [facility] Test 21:27:23 malignant neoplasm of colon (procedure) [code = [id number]] Future Scheduled 2023-07-03 [facility]ING[facility]ACCINES ([facility] 21:27:23 of 2) [code = SHINGLES VACCINES (1 of 2)] Future Scheduled 2023-07-03 HEPATITIS B VACCINES Met [facility] Test 21:27:23 (1 of 3 - Risk 3-dose series) [code = HEPATITIS B VACCINES (1 of 3 - Risk 3-dose series)] Future Scheduled 2023-07-03 65+ PNEUMOCOCCAL [facility] Test 21:27:23 VACCINE (1 - PCV) [code = 65+ PNEUMOCOCCAL VACCINE (1 - PCV)] Future Scheduled 2023-07-03 INFLUENZA VACCINE (#1) [facility] Test 21:27:23 [code = INFLUENZA VACCINE (#1)] Future Scheduled 2023-07-03 Screening for [facility] Test 21:27:23 malignant neoplasm of colon (procedure) [code = [id number]] Future Scheduled 2023-07-03 Screening for [facility] Test 21:27:23 malignant neoplasm of colon (procedure) [code = 492025768] Future Scheduled 2023-07-03 Screening for [facility] Test 21:27:23 malignant neoplasm of colon (procedure) [code = 261699449] Future Scheduled 2023-07-03 COVID-19 VACCINE (#1) [facility] Test 21:27:23 [code = COVID-19 VACCINE (#1)] Future Scheduled 2023-02-10 Hepatitis C screening [facility] Test 04:58:12 (procedure) [code = 693367555] Future Scheduled 2023-02-10 COLONOSCOPY SCREENING [facility] Test 04:58:12 [code = COLONOSCOPY SCREENING] Future Scheduled 2023-02-10 SHINGLES VACCINES (1 Met [facility] Test 04:58:12 of 2) [code = SHINGLES VACCINES (1 of 2)] Future Scheduled 2023-02-10 HEPATITIS B VACCINES Met [facility] Test 04:58:12 (1 of 3 - Risk 3-dose series) [code = HEPATITIS B VACCINES (1 of 3 - Risk 3-dose series)] Future Scheduled 2023-02-10 65[facility] 04:58:12 VACCINE (1 - PCV) [code = 65+ PNEUMOCOCCAL VACCINE (1 - PCV)] Future Scheduled 2023-02-10 INFLUENZA VACCINE Method [facility] Test 04:58:12 [code = INFLUENZA VACCINE] Future Scheduled 2023-02-10 COVID-19 VACCINE (#1) [facility] Test 04:58:12 [code = COVID-19 VACCINE (#1)] Future Scheduled 2023-01-16 COVID-19 VACCINE (#1) [facility] Test 09:05:44 [code = COVID-19 VACCINE (#1)] Future Scheduled 2023-01-16 Hepatitis C screening [facility] Test 09:05:44 (procedure) [code = [id number]] Future Scheduled 2023-01-16 COLONOSCOPY SCREENING [facility] Test 09:05:44 [code = COLONOSCOPY SCREENING] Future Scheduled 2023-01-16 SHINGLES VACCINES (1 Met [facility] Test 09:05:44 of 2) [code = SHINGLES VACCINES (1 of 2)] Future Scheduled 2023-01-16 HEPATITIS B VACCINES Met [facility] Test 09:05:44 (1 of 3 - Risk 3-dose series) [code = HEPATITIS B VACCINES (1 of 3 - Risk 3-dose series)] Future Scheduled 2023-01-16 65[facility] 09:05:44 VACCINE (1 - PCV) [code = 65+ PNEUMOCOCCAL VACCINE (1 - PCV)] Future Scheduled 2023-01-16 INFLUENZA VACCINE Method [facility] Test 09:05:44 [code = INFLUENZA VACCINE] Future Scheduled 2022-11-30 COVID-19 VACCINE (#1) [facility] Test 14:59:02 [code = COVID-19 VACCINE (#1)] Future Scheduled 2022-11-30 Hepatitis C screening [facility] Test 14:59:02 (procedure) [code = [id number]] Future Scheduled 2022-11-30 COLONOSCOPY SCREENING [facility] Test 14:59:02 [code = COLONOSCOPY SCREENING] Future Scheduled 2022-11-30 SHINGLES VACCINES (1 Met [facility] Test 14:59:02 of 2) [code = SHINGLES VACCINES (1 of 2)] Future Scheduled 2022-11-30 HEPATITIS B VACCINES Met [facility] Test 14:59:02 (1 of 3 - Risk 3-dose series) [code = HEPATITIS B VACCINES (1 of 3 - Risk 3-dose series)] Future Scheduled 2022-11-30 65+ [facility] 14:59:02 VACCINE (1 - PCV) [code = 65+ PNEUMOCOCCAL VACCINE (1 - PCV)] Future Scheduled 2022-11-30 INFLUENZA VACCINE Method [facility] Test 14:59:02 [code = INFLUENZA VACCINE] Future Scheduled 2022-11-30 COVID-19 VACCINE (#1) Me [facility] Test 14:59:02 [code = COVID-19 VACCINE (#1)] Future Scheduled 2022-11-30 Hepatitis C screening [facility] Test 14:59:02 (procedure) [code = [id number]] Future Scheduled 2022-11-30 COLONOSCOPY SCREENING [facility] Test 14:59:02 [code = COLONOSCOPY SCREENING] Future Scheduled 2022-11-30 SHINGLES VACCINES (1 Met [facility] Test 14:59:02 of 2) [code = SHINGLES VACCINES (1 of 2)] Future Scheduled 2022-11-30 HEPATITIS B VACCINES Met [facility] Test 14:59:02 (1 of 3 - Risk 3-dose series) [code = HEPATITIS B VACCINES (1 of 3 - Risk 3-dose series)] Future Scheduled 2022-11-30 65+ [facility]AL [facility] 14:59:02 VACCINE (1 - PCV) [code = 65+ PNEUMOCOCCAL VACCINE (1 - PCV)] Future Scheduled 2022-11-30 INFLUENZA VACCINE Method [facility] Test 14:59:02 [code = INFLUENZA VACCINE] Future Scheduled 2022-11-[address] [...] RISK Medical C enter SCREENING] Future Scheduled 2022-10-04 COVID-19 VACCINE (#1) [facility] Test 14:30:27 [code = COVID-19 VACCINE (#1)] Future Scheduled 2022-10-04 Hepatitis C screening [facility] Test 14:30:27 (procedure) [code = [id number]] Future Scheduled 2022-10-04 COLONOSCOPY SCREENING [facility] Test 14:30:27 [code = COLONOSCOPY SCREENING] Future Scheduled 2022-10-04 SHINGLES VACCINES (1 Met [facility] Test 14:30:27 of 2) [code = SHINGLES VACCINES (1 of 2)] Future Scheduled 2022-10-04 HEPATITIS B VACCINES Met [facility] Test 14:30:27 (1 of 3 - Risk 3-dose series) [code = HEPATITIS B VACCINES (1 of 3 - Risk 3-dose series)] Future Scheduled 2022-10-04 65[facility] 14:30:27 VACCINE (1 - PCV) [code = 65+ PNEUMOCOCCAL VACCINE (1 - PCV)] Future Scheduled 2022-10-04 INFLUENZA VACCINE Method [facility] Test 14:30:27 [code = INFLUENZA VACCINE] Future Scheduled 2022-09-16 COVID-19 VACCINE (#1) [facility] Test 13:19:06 [code = COVID-19 VACCINE (#1)] Future Scheduled 2022-09-16 Hepatitis C screening [facility] Test 13:19:06 (procedure) [code = [id number]] Future Scheduled 2022-09-16 COLONOSCOPY SCREENING [facility] Test 13:19:06 [code = COLONOSCOPY SCREENING] Future Scheduled 2022-09-16 SHINGLES VACCINES (1 Met [facility] Test 13:19:06 of 2) [code = SHINGLES VACCINES (1 of 2)] Future Scheduled 2022-09-16 HEPATITIS B VACCINES Met [facility] Test 13:19:06 (1 of 3 - Risk 3-dose series) [code = HEPATITIS B VACCINES (1 of 3 - Risk 3-dose series)] Future Scheduled 2022-09-16 65+ [facility]AL [facility] 13:19:06 VACCINE (1 - PCV) [code = 65+ PNEUMOCOCCAL VACCINE (1 - PCV)] Future Scheduled 2022-09-16 INFLUENZA VACCINE Method [facility] Test 13:19:06 [code = INFLUENZA VACCINE] Future Scheduled 2022-08-[address] [...] FIRST YEAR if no IPPE)] Future Scheduled 2022-07-27 COVID-19 VACCINE (#1) [facility] Test 09:30:28 [code = COVID-19 VACCINE (#1)] Future Scheduled 2022-07-27 Hepatitis C screening Me [facility] Test 09:30:28 (procedure) [code = [id number]] Future Scheduled 2022-07-27 COLONOSCOPY SCREENING Me [facility] Test 09:30:28 [code = COLONOSCOPY SCREENING] Future Scheduled 2022-07-27 SHINGLES VACCINES (1 Met [facility] Test 09:30:28 of 2) [code = SHINGLES VACCINES (1 of 2)] Future Scheduled 2022-07-27 HEPATITIS B VACCINES Met [facility] Test 09:30:28 (1 of 3 - Risk 3-dose series) [code = HEPATITIS B VACCINES (1 of 3 - Risk 3-dose series)] Future Scheduled 2022-07-27 65+ [facility]CCAL [facility] 09:30:28 VACCINE (1 - PCV) [code = 65+ PNEUMOCOCCAL VACCINE (1 - PCV)] Future Scheduled 2022-07-27 INFLUENZA VACCINE Method [facility] Test 09:30:28 [code = INFLUENZA VACCINE] Future Scheduled 2022-07-12 COVID-19 VACCINE (#1) [facility] Test 14:00:49 [code = COVID-19 VACCINE (#1)] Future Scheduled 2022-07-12 Hepatitis C screening [facility] Test 14:00:49 (procedure) [code = [id number]] Future Scheduled 2022-07-12 COLONOSCOPY SCREENING [facility] Test 14:00:49 [code = COLONOSCOPY SCREENING] Future Scheduled 2022-07-12 SHINGLES VACCINES (1 Met [facility] Test 14:00:49 of 2) [code = SHINGLES VACCINES (1 of 2)] Future Scheduled 2022-07-12 HEPATITIS B VACCINES Met [facility] Test 14:00:49 (1 of 3 - Risk 3-dose series) [code = HEPATITIS B VACCINES (1 of 3 - Risk 3-dose series)] Future Scheduled 2022-07-12 65[facility] VACCINE (1 - PCV) [code = 65+ PNEUMOCOCCAL VACCINE (1 - PCV)] Future Scheduled 2022-07-12 INFLUENZA VACCINE Method [facility] Test 14:00:49 [code = INFLUENZA VACCINE] Future Scheduled 2022-07-12 COVID-19 VACCINE (#1) [facility] Test 14:00:49 [code = COVID-19 VACCINE (#1)] Future Scheduled 2022-07-12 Hepatitis C screening [facility] Test 14:00:49 (procedure) [code = [id number]] Future Scheduled 2022-07-12 COLONOSCOPY SCREENING [facility] Test 14:00:49 [code = COLONOSCOPY SCREENING] Future Scheduled 2022-07-12 SHINGLES VACCINES (1 Met [facility] Test 14:00:49 of 2) [code = SHINGLES VACCINES (1 of 2)] Future Scheduled 2022-07-12 HEPATITIS B VACCINES Met [facility] Test 14:00:49 (1 of 3 - Risk 3-dose series) [code = HEPATITIS B VACCINES (1 of 3 - Risk 3-dose series)] Future Scheduled 2022-07-12 65+ [facility]AL [facility] 14:00:49 VACCINE (1 - PCV) [code = 65+ PNEUMOCOCCAL VACCINE (1 - PCV)] Future Scheduled 2022-07-12 INFLUENZA VACCINE Method [facility] Test 14:00:49 [code = INFLUENZA VACCINE] Future Scheduled 2022-07-07 INFLUENZA VACCINE (#1) C [...] Counseling and Screening (12+)] Future Scheduled 2022-07-[address] [facility] Test 00:00:00 Counseling and Medical Cente r Screening (12+) [code = Tobacco Cessation Counseling and Screening (12+)] Future Scheduled 2022-07-[address] [facility] Test 00:00:00 Counseling and Medical Cente r Screening (12+) [code = Tobacco Cessation Counseling and Screening (12+)] Future Scheduled 2022-07-[address] [facility] Test 00:00:00 Counseling and Medical Cente r Screening (12+) [code = Tobacco Cessation Counseling and Screening (12+)] Future Scheduled 2022-07-[address] [facility] Test 00:00:00 Counseling and Medical Cente r Screening (12+) [code = Tobacco Cessation Counseling and Screening (12+)] Future Scheduled 2022-07-[address] [facility] Test 00:00:00 Counseling and Medical Cente r Screening (12+) [code = Tobacco Cessation Counseling and Screening (12+)] Future Scheduled 2022-07-[address] [facility] Test 00:00:00 Counseling and Medical Cente r Screening (12+) [code = Tobacco Cessation Counseling and Screening (12+)] Future Scheduled 2022-07-[address] [facility] Test 00:00:00 Counseling and Medical Cente r Screening (12+) [code = Tobacco Cessation Counseling and Screening (12+)] Future Scheduled 2022-07-[address] [facility] Test 00:00:00 Counseling and Medical Cente r Screening (12+) [code = Tobacco Cessation Counseling and Screening (12+)] Future Scheduled 2021-11-[address] [...] RISK Medical C enter SCREENING] Future Scheduled 2021-08-06 Medicare IPPE (WELCOME C [...] Medicare IPPE (WELCOME TO MEDICARE)] Future Scheduled 2006 SHINGLES VACCINES ([address] [facility] Test 00:00:00 of 2) [code = SHINGLES Medic al Center VACCINES (1 of 2)] Future Scheduled 2006 SHINGLES VACCINES ([address] [facility] Test 00:00:00 of 2) [code = SHINGLES Medic al Center VACCINES (1 of 2)] Future Scheduled 2006 SHINGLES VACCINES ([address] [facility] Test 00:00:00 of 2) [code = SHINGLES Medic al Center VACCINES (1 of 2)] Future Scheduled 2006 SHINGLES VACCINES ([address] [facility] Test 00:00:00 of 2) [code = SHINGLES Medic al Center VACCINES (1 of 2)] Future Scheduled 2006 SHINGLES VACCINES ([address] [facility] Test 00:00:00 of 2) [code = SHINGLES Medic al Center VACCINES (1 of 2)] Future Scheduled 2006 SHINGLES VACCINES ([address] [facility] Test 00:00:00 of 2) [code = SHINGLES Medic al Center VACCINES (1 of 2)] Future Scheduled 2006 SHINGLES VACCINES ([address] [facility] Test 00:00:00 of 2) [code = SHINGLES Medic al Center VACCINES (1 of 2)] Future Scheduled 2006 SHINGLES VACCINES ([address] [facility] Test 00:00:00 of 2) [code = SHINGLES Medic al Center VACCINES (1 of 2)] Future Scheduled 2006 SHINGLES VACCINES ([address] [facility] Test 00:00:00 of 2) [code = SHINGLES Medic al Center VACCINES (1 of 2)] Future Scheduled 2006 SHINGLES VACCINES ([address] [facility] Test 00:00:00 of 2) [code = SHINGLES Medic al Center VACCINES (1 of 2)] Future Scheduled 2006 SHINGLES VACCINES ([address] [facility] Test 00:00:00 of 2) [code = SHINGLES Medic al Center VACCINES (1 of 2)] Future Scheduled 2006 SHINGLES VACCINES ([address] [facility] Test 00:00:00 of 2) [code = SHINGLES Medic al Center VACCINES (1 of 2)] Future Scheduled 2006 SHINGLES VACCINES ([address] [facility] Test 00:00:00 of 2) [code = SHINGLES Medic al Center VACCINES (1 of 2)] Future Scheduled 2006 SHINGLES VACCINES ([address] [facility] Test 00:00:00 of 2) [code = SHINGLES Medic al Center VACCINES (1 of 2)] Future Scheduled 2006 SHINGLES VACCINES ([address] [facility] Test 00:00:00 of 2) [code = SHINGLES Medic al Center VACCINES (1 of 2)] Future Scheduled 2006 SHINGLES VACCINES ([address] [facility] Test 00:00:00 of 2) [code = SHINGLES Medic al Center VACCINES (1 of 2)] Future Scheduled 2006 SHINGLES VACCINES ([address] [facility] Test 00:00:00 of 2) [code = SHINGLES Medic al Center VACCINES (1 of 2)] Future Scheduled 2006 SHINGLES VACCINES ([address] [facility] Test 00:00:00 of 2) [code = SHINGLES Medic al Center VACCINES (1 of 2)] Future Scheduled 2006 SHINGLES VACCINES ([address] [facility] Test 00:00:00 of 2) [code = SHINGLES Medic al Center VACCINES (1 of 2)] Future Scheduled 2006 SHINGLES VACCINES ([address] [facility] Test 00:00:00 of 2) [code = SHINGLES Medic al Center VACCINES (1 of 2)] Future Scheduled 2006 SHINGLES VACCINES ([address] [facility] 00:00:00 of 2) [code = SHINGLES Medic al Center VACCINES (1 of 2)] Future Scheduled 2006 SHINGLES VACCINES ([address] [facility] 00:00:00 of 2) [code = SHINGLES Medic al Center VACCINES (1 of 2)] Future Scheduled 2006 SHINGLES VACCINES ([address] [facility] Test 00:00:00 of 2) [code = SHINGLES Medic al Center VACCINES (1 of 2)] Future Scheduled 2006 SHINGLES VACCINES ([address] [facility] Test 00:00:00 of 2) [code = SHINGLES Medic al Center VACCINES (1 of 2)] Future Scheduled 2006 SHINGLES VACCINES ([address] [facility] Test 00:00:00 of 2) [code = SHINGLES Medic al Center VACCINES (1 of 2)] Future Scheduled 2006 SHINGLES VACCINES ([address] [facility] Test 00:00:00 of 2) [code = SHINGLES Medic al Center VACCINES (1 of 2)] Future Scheduled 2006 SHINGLES VACCINES ([address] [facility] 00:00:00 of 2) [code = SHINGLES Medic [...] - Tdap)] Future Scheduled 1975 DTAP[facility]TDAP[facility]TD [facility]00 (1 - [...] (12+)] Future Scheduled 1962 PNEUMOCOCCAL 65+ YRS [facility] Test 00:00:00 (1 - PCV) [code = Medical Ce nter PNEUMOCOCCAL 65+ YRS (1 - PCV)] Future Scheduled 1962 PNEUMOCOCCAL 65+ YRS [facility] Test 00:00:00 (1 - PCV) [code = Medical Ce nter PNEUMOCOCCAL 65+ YRS (1 - PCV)] Future Scheduled 1962 PNEUMOCOCCAL 65+ YRS [facility] Test 00:00:00 (1 - PCV) [code = Medical Ce nter PNEUMOCOCCAL 65+ YRS (1 - PCV)] Future Scheduled 1962 PNEUMOCOCCAL 65+ YRS [facility] Test 00:00:00 (1 - PCV) [code = Medical Ce nter PNEUMOCOCCAL 65+ YRS (1 - PCV)] Future Scheduled 1962 PNEUMOCOCCAL 65+ YRS [facility] Test 00:00:00 (1 - PCV) [code = Medical Ce nter PNEUMOCOCCAL 65+ YRS (1 - PCV)] Future Scheduled 1962 PNEUMOCOCCAL 65+ YRS [facility] Test 00:00:00 (1 - PCV) [code = Medical Ce nter PNEUMOCOCCAL 65+ YRS (1 - PCV)] Future Scheduled 1962 PNEUMOCOCCAL 65+ YRS [facility] Test 00:00:00 (1 - PCV) [code = Medical Ce nter PNEUMOCOCCAL 65+ YRS (1 - PCV)] Future Scheduled 1962 PNEUMOCOCCAL 65+ YRS [facility] Test 00:00:00 (1 - PCV) [code = Medical Ce nter PNEUMOCOCCAL 65+ YRS (1 - PCV)] Future Scheduled 1962 PNEUMOCOCCAL 65+ YRS [facility] Test 00:00:00 (1 - PCV) [code = Medical Ce nter PNEUMOCOCCAL 65+ YRS (1 - PCV)] Future Scheduled 1962 PNEUMOCOCCAL 65+ YRS [facility] Test 00:00:00 (1 - PCV) [code = Medical Ce nter PNEUMOCOCCAL 65+ YRS (1 - PCV)] Future Scheduled 1962 PNEUMOCOCCAL 65+ YRS [facility] Test 00:00:00 (1 - PCV) [code = Medical Ce nter PNEUMOCOCCAL 65+ YRS (1 - PCV)] Future Scheduled 1962 PNEUMOCOCCAL 65+ YRS [facility] Test 00:00:00 (1 - PCV) [code = Medical Ce nter PNEUMOCOCCAL 65+ YRS (1 - PCV)] Future Scheduled 1962 PNEUMOCOCCAL 65+ YRS [facility] Test 00:00:00 (1 - PCV) [code = Medical Ce nter PNEUMOCOCCAL 65+ YRS (1 - PCV)] Future Scheduled 1962 PNEUMOCOCCAL 65+ YRS [facility] Test 00:00:00 (1 - PCV) [code = Medical Ce nter PNEUMOCOCCAL 65+ YRS (1 - PCV)] Future Scheduled 1962 PNEUMOCOCCAL 65+ YRS [facility] Test 00:00:00 (1 - PCV) [code = Medical Ce nter PNEUMOCOCCAL 65+ YRS (1 - PCV)] Future Scheduled 1962 PNEUMOCOCCAL 65+ YRS [facility] Test 00:00:00 (1 - PCV) [code = Medical Ce nter PNEUMOCOCCAL 65+ YRS (1 - PCV)] Future Scheduled 1962 PNEUMOCOCCAL 65+ YRS [facility] Test 00:00:00 (1 - PCV) [code = Medical Ce nter PNEUMOCOCCAL 65+ YRS (1 - PCV)] Future Scheduled 1962 PNEUMOCOCCAL 65+ YRS [facility] Test 00:00:00 (1 - PCV) [code = Medical Ce nter PNEUMOCOCCAL 65+ YRS (1 - PCV)] Future Scheduled 1962 PNEUMOCOCCAL 65+ YRS [facility] Test 00:00:00 (1 - PCV) [code = Medical Ce nter PNEUMOCOCCAL 65+ YRS (1 - PCV)] Future Scheduled 1962 PNEUMOCOCCAL 65+ YRS [facility] Test 00:00:00 (1 - PCV) [code = Medical Ce nter PNEUMOCOCCAL 65+ YRS (1 - PCV)] Future Scheduled 1962 PNEUMOCOCCAL 65+ YRS [facility] Test 00:00:00 (1 - PCV) [code = Medical Ce nter PNEUMOCOCCAL 65+ YRS (1 - PCV)] Future Scheduled 1962 PNEUMOCOCCAL 65+ YRS [facility] Test 00:00:00 (1 - PCV) [code = Medical Ce nter PNEUMOCOCCAL 65+ YRS (1 - PCV)] Future Scheduled 1962 PNEUMOCOCCAL 65+ YRS [facility] Test 00:00:00 (1 - PCV) [code = Medical Ce nter PNEUMOCOCCAL 65+ YRS (1 - PCV)] Future Scheduled 1962 PNEUMOCOCCAL 65+ YRS [facility] Test 00:00:00 (1 - PCV) [code = Medical Ce nter PNEUMOCOCCAL 65+ YRS (1 - PCV)] Future Scheduled 1962 PNEUMOCOCCAL 65+ YRS [facility] Test 00:00:00 (1 - PCV) [code = Medical Ce nter PNEUMOCOCCAL 65+ YRS (1 - PCV)] Future Scheduled 1962 PNEUMOCOCCAL 65+ YRS [facility] Test 00:00:00 (1 - PCV) [code = Medical Ce nter PNEUMOCOCCAL 65+ YRS (1 - PCV)] Future Scheduled 1962 PNEUMOCOCCAL 65+ YRS [facility] Test 00:00:00 (1 - PCV) [code = Medical Ce nter PNEUMOCOCCAL 65+ YRS (1 - PCV)] Future [...] VACCINE (#1)] Future Scheduled [address] [facility] 00:00:00 (combo) [code = CT Medical C enter Colonography (combo)] Future Scheduled [address] [facility] colon (procedure) [code = [id number]] Future Scheduled [address] [facility] 00:[facility] colon (procedure) [code = [id number]] Future Scheduled 1956 Sigmoidoscopy [facility] Medical Cent[facility] r Future Scheduled [address] [facility] 00:00:00 (combo) [code = CT Medical C enter Colonography (combo)] Future Scheduled 1956 [facility] (procedure) [code = 123806664] Future Scheduled [address] [facility] 00:[facility] (procedure) [code = 770746005] Future Scheduled 1956 S[facility]oid[facility]] Medical Cora r Future Scheduled [address] [facility] 00:00:00 (combo) [code = CT Medical C enter Colonography (combo)] Future Scheduled [address] [facility] 00:00:00 [facility] colon (procedure) [code = 710064923] Future Scheduled [address] [facility] 00:00:00 [facility] colon (procedure) [code = 909183551] Future Scheduled 1956 S[facility]oidoscopy [facility]] Medical Cora r Future Scheduled [address] [facility] 00:00:00 (combo) [code = CT Medical C enter Colonography (combo)] Future Scheduled [address] [facility] 00:00:00 [facility] (procedure) [code = 546249555] Future Scheduled [address] [facility] 00:00:00 [facility] colon (procedure) [code = 762258067] Future Scheduled 1956 S[facility]oidoscopy [facility]oscopy] Medical Cora r Future Scheduled [address] [facility] 00:00:00 (combo) [code = CT Medical C enter Colonography (combo)] Future Scheduled [address] [facility] 00:00:00 [facility] colon (procedure) [code = 728887919] Future Scheduled [address] [facility] 00:00:00 [facility] colon (procedure) [code = 023985479] Future Scheduled 1956 [facility]oid[facility]] [facility] Future Scheduled [address] [facility] 00:00:00 (combo) [code = CT Medical C enter Colonography (combo)] Future Scheduled [address] [facility] 00:00:00 [facility] colon (procedure) [code = 008486257] Future Scheduled [address] [facility] 00:00:00 [facility] colon (procedure) [code = 895755602] Future Scheduled 1956 S[facility]oidoscopy [facility]] [facility] Cent[facility] r Future Scheduled [address] [facility] 00:00:00 (combo) [code = CT Medical C enter Colonography (combo)] Future Scheduled [address] [facility] 00[facility]00:00 [facility] colon (procedure) [code = 278384504] Future Scheduled [address] [facility] 00:00:00 [facility] colon (procedure) [code = 216986909] Future Scheduled 1956 [facility]] Medical Cent[facility] r Future Scheduled [address] [facility] 00:00:00 (combo) [code = CT Medical C enter Colonography (combo)] Future Scheduled [address] [facility] 00:00:00 [facility] colon (procedure) [code = 600395142] Future Scheduled [address] [facility] 00:00:00 [facility] colon (procedure) [code = 388837988] Future Scheduled 1956 [facility]oid[facility]] [facility] [address] [facility] 00:00:00 (combo) [code = CT Medical C enter Colonography (combo)] Future Scheduled [address] [facility] 00:00:00 [facility] colon (procedure) [code = 733834848] Future Scheduled [address] [facility] 00[facility] colon (procedure) [code = 022684458] Future Scheduled 1956 [facility] [address] [facility] 00:00:00 (combo) [code = CT Medical C enter Colonography (combo)] Future Scheduled [address] [facility] 00:00:00 [facility] colon (procedure) [code = 337942045] Future Scheduled [address] [facility] 00:00:00 [facility] colon (procedure) [code = 767995347] Future Scheduled 1956 [facility] [address] [facility] 00:00:00 (combo) [code = CT Medical C enter Colonography (combo)] Future Scheduled [address] [facility] 00:00:00 [facility] colon (procedure) [code = 294242639] Future Scheduled [address] [facility] 00:00:00 [facility] colon (procedure) [code = 321119339] Future Scheduled 1956 [facility]] Medical Shdaye r Future Scheduled [address] [facility] 00:00:00 (combo) [code = CT Medical C enter Colonography (combo)] Future Scheduled [address] [facility] 00:00:00 [facility] colon (procedure) [code = 482650933] Future Scheduled [address] [facility] 00:00:00 [facility] colon (procedure) [code = 355340596] Future Scheduled 1956 [facility]oidoscopy [facility] S[facility]oscopy] Medical Cora r Future Scheduled [address] [facility] 00:00:00 (combo) [code = CT Medical C enter Colonography (combo)] Future Scheduled [address] [facility] 00:00:00 [facility] colon (procedure) [code = 715763394] Future Scheduled [address] [facility] 00:00:00 [facility] colon (procedure) [code = 243706440] Future Scheduled 1956 [facility]] [facility] Cora r Future Scheduled [address] [facility] 00:00:00 (combo) [code = CT Medical C enter Colonography (combo)] Future Scheduled [address] [facility] 00:00:00 [facility] colon (procedure) [code = 151892732] Future Scheduled [address] [facility] 00:00:00 [facility] colon (procedure) [code = 095156884] Future Scheduled 1956 [facility]oidoscopy [facility]] [facility] Cora r Future Scheduled [address] [facility] 00:00:00 (combo) [code = CT Medical C enter Colonography (combo)] Future Scheduled [address] [facility] 00:00:00 [facility] colon (procedure) [code = 915176548] Future Scheduled [address] [facility] 00:00:00 [facility] colon (procedure) [code = 334766573] Future Scheduled 1956 S[facility]oidoscopy [facility]] [facility] Cent[facility] r Future Scheduled [address] [facility] 00:00:00 (combo) [code = CT Medical C enter Colonography (combo)] Future Scheduled [address] [facility] 00:00:00 [facility] colon (procedure) [code = 880305519] Future Scheduled [address] [facility] 00:00:00 [facility] colon (procedure) [code = 503110510] Future Scheduled 1956 S[facility]oidoscopy [facility]] [facility] Cent[facility] r Future Scheduled [address] [facility] 00:00:00 (combo) [code = CT Medical C enter Colonography (combo)] Future Scheduled [address] [facility] 00:00:00 [facility] colon (procedure) [code = 437656112] Future Scheduled [address] [facility] 00:00:00 [facility] colon (procedure) [code = 645517969] Future Scheduled 1956 [facility]oidoscopy [facility]] [facility] Cent[facility] r Future Scheduled [address] [facility] 00:00:00 (combo) [code = CT Medical C enter Colonography (combo)] Future Scheduled [address] [facility] 00:00:00 [facility] colon (procedure) [code = 038981249] Future Scheduled [address] [facility] 00:00:00 [facility] colon (procedure) [code = 339601696] Future Scheduled 1956 [facility] [address] [facility] 00:00:00 (combo) [code = CT Medical C enter Colonography (combo)] Future Scheduled [address] [facility] 00:00:00 [facility] colon (procedure) [code = 399022427] Future Scheduled [address] [facility] 00:00:00 [facility] colon (procedure) [code = 727230283] Future Scheduled 1956 [facility] [address] [facility] 00:00:00 (combo) [code = CT Medical C enter Colonography (combo)] Future Scheduled [address] [facility] 00:00:00 [facility] colon (procedure) [code = 584141583] Future Scheduled [address] [facility] 00:00:00 [facility] colon (procedure) [code = 658952473] Future Scheduled 1956 [facility] [address] [facility] 00:00:00 (combo) [code = CT Medical C enter Colonography (combo)] Future Scheduled [address] [facility] 00[facility]00:00 malignant [facility] colon (procedure) [code = 543373795] Future Scheduled [address] [facility] 00:00:00 malignant neoplasm [facility] colon (procedure) [code = 639578820] Future Scheduled 1956 S[facility]oidoscopy [[facility]] [facility] [address] [facility] 00:00:00 (combo) [code = CT Medical C enter Colonography (combo)] Future Scheduled [address] [facility] 00:00:00 malignant [facility] colon (procedure) [code = 960182778] Future Scheduled [address] [facility] 00:00:00 malignant ne[facility] colon (procedure) [code = 479012602] Future Scheduled 1956 [facility] [address] [facility] 00:00:00 (combo) [code = CT Medical C enter Colonography (combo)] Future Scheduled [address] [facility] 00:00:00 malignant [facility] colon (procedure) [code = 850848961] Future Scheduled [address] [facility] 00:00:00 malignant [facility]oplasm [facility] colon (procedure) [code = 939225010] Future Scheduled 1956 [facility]] [facility] r Future Scheduled [address] [facility] 00:00:00 (combo) [code = CT Medical C enter Colonography (combo)] Future Scheduled [address] [facility] 00:00:00 malignant neoplasm [facility] colon (procedure) [code = 677078869] Future Scheduled [address] [facility] 00:00:00 malignant neoplasm [facility] colon (procedure) [code = 853682638] Future Scheduled 1956 [facility] [address] [facility] 00:00:00 (combo) [code = CT Medical C enter Colonography (combo)] Future Scheduled [address] [facility] 00:00:00 malignant [facility] colon (procedure) [code = 016565521] Future Scheduled [address] [facility] 00:00:00 malignant [facility] colon (procedure) [code = 133684600] Future Scheduled 1956 [facility]oid[facility]] Medical Cora r Future Scheduled [address] [facility] 00:00:00 (combo) [code = CT Medical C enter Colonography (combo)] Future Scheduled [address] [facility] 00:00:00 malignant [facility] colon (procedure) [code = 784927016] Future Scheduled [address] [facility] 00:00:00 malignant [facility] colon (procedure) [code = 346122367] Future Scheduled 1956 S[facility]oidoscopy [[facility] 00:[facility] S[facility]oidoscopy] Medical Cora r Future Scheduled [address] [facility] 00:00:00 (combo) [code = CT Medical C enter Colonography (combo)] Future Scheduled [address] [facility] 00:00:00 malignant [facility] colon (procedure) [code = 762749961] Future Scheduled [address] [facility] 00:00:00 malignant neoplasm [facility] colon (procedure) [code = 344423165] Future Scheduled 1956 [facility]] Medical Cora r Goal Plan of Care Note [code = 62906-8] Goal Plan of Care Note [code = 30839-9] Goal Plan of Care Note [code = 35936-3] Goal Plan of Care Note [code = 61704-9] Goal Plan of Care Note [code = 01015-3] Goal Plan of Care Note [code = 88841-1] Goal Plan of Care Note [code = 80065-8] Goal Plan of Care Note [code = 12234-1] Goal Plan of Care Note [code = 31561-0] Goal Plan of Care Note [code = 00480-2] Encounters Start End Encounter Admission Attending Care Care Encounter Source Date/Time Date/Time Type Type Clinicians Facility Department ID 2023-02-01 Outpatient Pickett, STLMLC STLMLC [id number] Common 08:47:00 Edilson [id number] [facility] 2022-11-17 Outpatient Pickett, STLMLC STLMLC [id number] Common 12:34:00 Edilson [facility] 2022-10-27 Outpatient [facility] [id number] [place] 12:18:45 [id number] [facility] 2022-09-22 Outpatient Pickett, STLMLC STLMLC [id number] Common 08:57:00 Edilson 78578 [facility] 2022-08-29 Outpatient Pickett, STLMLC STLC [id number] Common 10:46:00 Edilson 50470 [facility] 2022-03-24 Outpatient Pickett, STLMLC STLMLC [id number] Common 13:04:00 Edilson [facility] 2022-03-01 Outpatient Pickett, STLMLC STLMLC [id number] Common 10:33:01 Edilson [facility] 2022-01-17 Outpatient Pickett, STLMLC STLMLC [id number] Common 13:26:00 Edilson [facility] 2021-12-24 Outpatient Pickett, STLMLC STLMLC [id number] Common 12:30:01 Edilson [facility] 2021-12-01 Outpatient Pickett, STLMLC STLMLC [id number] Common 14:39:55 Edilson [facility] 2021-12-01 Outpatient Pickett, STLMLC STLMLC [id number] Common 14:24:19 Edilson [facility] 2021-12-01 Outpatient [place], STLMLC [facility] [id number] Common 14:03:48 Rj [address] [facility] 2021-12-01 Outpatient [place], STLMLC [facility] Common 13:53:57 Rj [address] [facility] 2021-12-01 [facility] [place] Common 13:42:50 [place] [address] [facility] 2021-12-01 Out[facility] [place], [facility] Common 11:04:27 Rj [address] [facility] 2021-08-15 Inpatient YUMIKO, [facility] [id number] [facility] 03:03:46 HAI 2021-08-14 Outpatient ALAM, [facility] [id number] [facility] 23:18:50 LADONNA 2021-08-14 Outpatient DE LA CRUZ, [facility] Surgery [id number] SLEH 04:42:31 AAKASH 2023-08-11 2023-08-11 Outpatient MHIE MHIE [id number] Memoria 13:30:00 13:30:00 12 jem [place] 2023-08-11 2023-08-11 Outpatient MHIE MHIE [id number] Memoria 13:30:00 13:30:00 12 jem [place] 2023-07-11 2023-07-11 Outpatient MHIE MHIE [id number] Memoria 09:00:00 09:00:00 13 jem Campbell 2023-03-23 2023-03-23 Orders Doctor BRYAN [id number] Univers 00:00:00 00:00:00 Only Unassigned, ANEL 350.1.13.10 ity of [place] [facility] 4.2.7.2.686 Hi as [id number] [place] [address] [place] 2023-03-14 2023-03-15 Outpatient MHIE MNA [id number] Memoria 19:15:00 04:59:59 Neurology 11 l Sheila Campbell 2023-03-14 2023-03-15 Outpatient MHIE MNA [id number] Memoria 19:15:00 04:59:59 Neurology 11 l Sheila Campbell 2023-03-14 2023-03-14 Outpatient ASHLEY MartinezMISCHER MHMISCHER [id number] 14:15:00 23:59:59 Aleksander 11 [place] 2023-03-14 2023-03-14 Outpatient MHIE MHIE [id number] Memoria 14:15:00 14:15:00 11 jem Campbell 2023-02-21 2023-02-21 Ambulatory MHIE MNA [id number] Memoria 18:15:00 18:15:00 Pre-Reg Neurology 07 l Sheila Campbell 2023-02-21 2023-02-21 Ambulatory MHIE MNA [id number] Memoria 18:15:00 18:15:00 Pre-Reg Neurology 07 l Sheila Campbell 2023-02-21 2023-02-21 Outpatient ASHLEY MartinezMISCHER MHMISCHER [id number] 13:15:00 13:15:00 Aleksander 07 [place] 2023-01-17 2023-01-17 Outpatient MHIE MHIE [id number] Memoria 14:00:00 14:00:00 07 jem Campbell 2022-12-14 2022-12-14 Outpatient SFA SFA 023 López 15:36:54 15:36:54 0208 F Scott 2022-11-30 2022-11-30 Outpatient SFA SFA [id number] López 14:58:57 14:58:57 0125 [facility] 2022-11-16 2022-11-16 Outpatient [facility] [id number] [place] 10:00:00 10:00:00 [facility] 2022-11-15 2022-11-15 (TEL) STLMLC STLMLC [id number] Co mmon 00:00:00 00:00:00 [facility] 2022-11-09 2022-11-10 Outpatient MHIE MNA [id number] Memoria 17:30:00 05:59:59 Neurology 10 l Sheila Campbell 2022-11-09 2022-11-10 Outpatient MHIE MNA [id number] Memoria 17:30:00 05:59:59 Neurology 10 l Sheila Campbell 2022-11-09 2022-11-09 Outpatient Krell JANNETTESCHER MHMISCHER [id number] 11:30:00 23:59:59 Aleksander 10 [place] 2022-11-09 2022-11-09 Outpatient MHIE MHIE [id number] Memoria 11:30:00 11:30:00 10 jem Campbell 2022-09-28 2022-09-29 Outpatient MHIE MNA [id number] Memoria 17:45:00 05:59:59 Neurology 09 jem Sosa [place] 2022-09-28 2022-09-29 Outpatient MHIE MNA [id number] Memoria 17:45:00 05:59:59 Neurology 09 jem Sosa [place] 2022-09-28 2022-09-28 Outpatient Bisiaydin, MHMISCHER MHMISCHER [id number] 11:45:00 23:59:59 Aleksander Jen Samson 2022-09-28 2022-09-28 Outpatient MHIE MHIE [id number] Memoria 11:45:00 11:45:00 09 jem [place] 2022-09-26 2022-09-26 [facility] [id number] Co mmon 00:00:00 00:00:00 VISIT Spirit ESTAB PT - CHI LEVEL 4 [facility] 2022-08-18 2022-08-20 Phone nullFlavo [facility] Multi [id number] Memoria 18:22:18 04:59:59 Message r Specialty 03 l [facility] 2022-08-18 2022-08-20 Phone nullFlavo [facility] Multi [id number] Memoria 18:22:18 04:59:59 Message r Specialty 03 l [facility] 2022-08-18 2022-08-19 Outpatient MHMG MHMG [id number] 13:22:18 23:59:59 03 2022-08-16 2022-08-16 Day nullFlavo [facility] [id number] Memoria 13:30:00 13:30:00 Surgery r [address] 2022-08-16 2022-08-16 Day nullFlavo [facility] [id number] Memoria 13:30:00 13:30:[address] 2022-08-16 2022-08-16 Ambulatory nullFlavo [facility] Multi 55 [id number] Memoria 13:30:00 13:30:00 Pre-Reg r Specialty 08 l [facility] 2022-08-16 2022-08-16 Ambulatory nullFlavo [facility] Multi 55 [id number] Memoria 13:30:00 13:30:00 Pre-Reg r Specialty 08 l [facility] 2022-08-16 2022-08-16 Outpatient MHIE MHIE [id number] Memoria 08:30:00 08:30:00 08 [facility] 2022-08-16 2022-08-16 Outpatient MHPL MHPL [id number] 08:30:00 08:30:00 2022-08-16 2022-08-16 Outpatient Alawadi, MHMG MHMG [id number] 08:30:00 08:30:00 Mookie 08 2022-08-12 2022-08-12 Outpatient ALAWADI, MHBL EULALIO [id number] MHBL 08:30:00 23:59:00 OMOKIE 2022-08-01 2022-08-03 Phone nullFlavo MHMG [id number] Memoria 17:39:58 04:59:59 Message r General 02 l [facility] 2022-08-01 2022-08-03 Phone nullFlavo MHMG [id number] Memoria 17:39:58 04:59:59 Message r General 02 l [facility] 2022-08-01 2022-08-02 Outpatient MHMG MHMG [id number] 12:39:58 23:59:59 2022-08-02 2022-08-02 [facility] [id number] Co mmon 00:00:00 00:00:00 [facility] 2022-07-25 2022-07-27 Phone nullFlavo MHMG [id number] Memoria 16:27:21 04:59:59 Message r General 01 l Surgery [facility] 2022-07-25 2022-07-27 Phone nullFlavo MHMG [id number] Memoria 16:27:21 04:59:59 Message r General 01 l [facility] 2022-07-25 2022-07-26 Outpatient MHMG MHMG [id number] 11:27:21 23:59:59 01 2022-07-19 2022-07-20 Outpatient nullFlavo MNA [id number] Memoria 19:45:00 04:59:59 r Neurology 05 l Sheila [place] 2022-07-19 2022-07-20 Outpatient nullFlavo MNA [id number] Memoria 19:45:00 04:59:59 r Neurology 05 l [place] 2022-07-19 2022-07-19 [facility] [id number] 14:45:00 23:59:59 Aleksander Kellie [place] 2022-07-19 2022-07-19 Outpatient [facility] [id number] Memoria 14:45:00 14:45:00 05 l [place] 2022-07-14 2022-07-16 Phone nullFlavo [facility] [id number] Memoria 18:31:52 04:59:59 Message r General 00 l [facility] 2022-07-14 2022-07-16 Phone nullFlavo [facility] [id number] Memoria 18:31:52 04:59:59 Message r General 00 l [facility] 2022-07-14 2022-07-15 Outpatient [facility] [id number] 13:31:52 23:59:59 00 2022-07-12 2022-07-12 Outpatient [id number] 00:00:00 00:00:00 Visit [id number] 2022-07-08 2022-07-09 Outpatient nullFlavo [facility] Multi 55 [id number] Memoria 16:45:00 04:59:59 r Specialty 06 l [facility] 2022-07-08 2022-07-09 Outpatient nullFlavo [facility] Multi 55 [id number] Memoria 16:45:00 04:59:59 r Specialty 06 l [facility] 2022-07-08 2022-07-08 Outpatient Yeny [facility] [id number] 11:45:00 23:59:59 Mookie 06 2022-07-08 2022-07-08 Outpatient MHIE MHIE [id number] Memoria 11:45:00 11:45:00 06 jem Campbell 2022-06-24 2022-06-25 Outpatient nullFlavo [place] [id number] Memoria 14:33:00 04:59:00 r Adrian 00 l [facility] 2022-06-24 2022-06-25 Outpatient nullFlavo [place] [id number] Memoria 14:33:00 04:59:00 r [place] 00 l [facility] 2022-06-24 2022-06-24 Outpatient Gogia, MHSE MHSE [id number] 09:33:00 23:59:00 Carlos 2022-06-15 2022-06-15 OFFICE STLMLC STLMLC [id number] Co mmon 00:00:00 00:00:00 VISIT EST Spir it PT LEVEL 3 - [facility] 2022-06-02 2022-06-03 Outpatient nullFlavo MNA [id number] Memoria 19:30:00 04:59:59 r Neurology 04 l Sheila Campbell 2022-06-02 2022-06-03 Outpatient nullFlavo MNA [id number] Memoria 19:30:00 04:59:59 r Neurology 04 l Sheila Campbell 2022-06-02 2022-06-02 [id number] 14:30:00 23:59:59 Aleksander 04 [place] 2022-06-02 2022-06-02 Outpatient MHIE MHIE [id number] Memoria 14:30:00 14:30:00 04 jem EppsAdrian 2022-06-02 2022-06-02 OFFICE STLMLC STLMLC [id number] Co mmon 00:00:00 00:00:00 VISIT Rm ESTAB PT - CHI LEVEL 4 [facility] 2022-05-16 2022-05-16 OFFICE STLMLC STLMLC [id number] Co mmon 00:00:00 00:00:00 VISIT Rm GROVE PT - CHI LEVEL 4 [facility] 2022-05-05 2022-05-05 Telephone HAN Odom [id number] [id number] Univers 00:00:00 00:00:00 Angelica Crockett [employer] 350.1.13.10 it y of [place] 4.2.7.2.686 Hi as OCTAVIO?BLEA [id number] Or kalyani IVERSON 198 [facility] 2022-04-28 2022-04-28 [facility] [facility] [id number] Univers 08:30:00 08:32:41 ANGELICA y [facility] 2022-04-28 2022-04-28 Office [facility] [id number] Univers 08:30:00 08:32:41 Visit Angelica Crockett [facility]side 350.1.13.10 it y of [place] 4.2.7.2.686 Hi as OCTAVIO?BLEA [phone] Or kalyani IVERSON 198 [facility] 2022-04-27 2022-04-27 [facility] 1.2.840.114 [id number] Univers 00:00:00 00:00:00 Angelica Crockett [employer]side 350.1.13.10 it y of [place] 4.2.7.2.686 Hi as OCTAVIO?BLEA [phone] Or kalyani IVERSON 198 [facility] 2022-04-21 2022-04-22 Outpatient nullFlavo MNA [id number] Memoria 21:00:00 04:59:59 r Neurology 02 l Sheila Campbell 2022-04-21 2022-04-22 Outpatient nullFlavo MNA [id number] Memoria 21:00:00 04:59:59 r Neurology 02 l Sheila Campbell 2022-04-21 2022-04-21 Outpatient JANNETTE MartinezSCHYAIMA ESTEVEZ [id number] 16:00:00 23:59:59 Aleksander Samson 2022-04-21 2022-04-21 Outpatient ASHLEYIE ASHLEYIE [id number] Memoria 16:00:00 16:00:00 02 jem Campbell 2022-04-19 2022-04-19 [facility], 1.2.840.1 [id number] Methodi 14:43:42 23:59:00 Encounter Karen Vargas [id number] 3.430.2.7 Hospit a .3.169702 l .8 2022-04-19 2022-04-19 Hospital Mirian, 1.2.840.1 [id number] Methodi 14:43:11 23:59:00 Encounter Karen Vargas 51511.1.[address] 3.430.2.7 Hospit a .3.096212 l .8 2022-04-19 2022-04-19 Office Mirian, 1.2.840.1 [id number] Methodi 14:00:00 15:30:09 Visit Karen Vargas 86005.1.1 374 s t 3.430.2.7 Hospit a .3.765594 l .8 2022-04-19 2022-04-19 [facility], 1.2.840.1 [id number] Methodi 14:37:12 14:42:00 Encounter Karen Vargas 86342.1.[address] 3.430.2.7 Hospit a .3.974610 l .8 2022-04-19 2022-04-19 [facility], 1.2.840.1 [id number] Methodi 00:00:00 00:00:00 Only Karen Vargas 54527.1.1 324 s t 3.430.2.7 Hospit a .3.078155 l .8 2022-04-19 2022-04-19 Travel 1.2.840.1 1.2.811.383 [id number] Methodi 00:00:00 00:00:[address] 3.430.2.7 0.2.7.3.698 Ho spita .3.623479 084.8 l .8 2022-04-19 2022-04-19 Outpatient MIRIAN, [facility] [id number] [place] 00:00:00 00:00:00 KAREN Sera [facility] 2022-04-15 2022-04-15 (TEL) STLMLC STLMLC [id number] Co mmon 00:00:00 00:00:00 [facility] 2022-03-25 2022-03-25 (TEL) STLMLC STLC [id number] Co mmon 00:00:00 00:00:00 [facility] 2022-03-23 2022-03-24 Outpatient nullFlavo [facility] Multi 55 [id number] Memoria 20:00:00 04:59:59 r Specialty 03 l [facility] 2022-03-23 2022-03-24 Outpatient nullFlavo [facility] Multi 55 [id number] Memoria 20:00:00 04:59:59 r Specialty 03 l [facility] 2022-03-24 2022-03-24 OFFICE STLC STLC [id number] Co mmon 00:00:00 00:00:00 VISIT [facility] PT - CHI LEVEL 4 [facility] 2022-03-23 2022-03-23 Outpatient ASHLEY AgudeloMG MHMG [id number] 15:00:00 23:59:59 Mohummed 03 Gayle 2022-03-23 2022-03-23 Outpatient MHIE MHIE [id number] Memoria 15:00:00 15:00:00 03 jem [place] 2022-03-14 2022-03-15 Outpatient nullFlavo MNA [id number] Memoria 18:30:00 04:59:59 r Neurology 01 l [place] 2022-03-14 2022-03-15 Outpatient nullFlavo MNA [id number] Memoria 18:30:00 04:59:59 r Neurology 01 l Sheila [place] 2022-03-14 2022-03-14 Outpatient Juan MHMISCHER MHMISCHER [id number] 13:30:00 23:59:59 Aleksander Claudia Chapin 2022-03-14 2022-03-14 Outpatient MHIE MHIE [id number] Memoria 13:30:00 13:30:00 01 jem Adrian 2022-03-02 2022-03-02 OFFICE STLMLC STLMLC [id number] Co mmon 00:00:00 00:00:00 VISIT [facility] PT - CHI LEVEL 4 [facility] 2022-03-02 2022-03-02 (TEL) STLMLC STLMLC [id number] Co mmon 00:00:00 00:00:00 [facility] 2022-02-23 2022-02-23 (TEL) STLMLC STLMLC [id number] Co mmon 00:00:00 00:00:00 [facility] 2022-01-17 2022-01-17 OFFICE STLMLC STLMLC [id number] Co mmon 00:00:00 00:00:00 VISIT [facility] PT - CHI LEVEL 4 [facility] 2022-01-14 2022-01-14 (TEL) STLMLC STLMLC [id number] Co mmon 00:00:00 00:00:00 [facility] 2022-01-13 2022-01-13 (TEL) STLMLC STLMLC [id number] Co mmon 00:00:00 00:00:00 [facility] 2022-01-02 2022-01-02 Anil Vidal [facility] [id number] [facility] [address] 00:00:00 00:00:00 [facility] 2021-12-17 2021-12-18 Outpt Diag nullFlavo [facility] [id number] Memoria 14:56:00 05:59:00 Services r Outpatient 00 l Imaging [facility] 2021-12-17 2021-12-18 Outpt Diag nullFlavo [facility] [id number] Memoria 14:56:00 05:59:00 Services r Outpatient 00 l Imaging [facility] 2021-12-17 2021-12-17 Outpatient Gogia, MHOIP MHOIP [id number] 08:56:00 23:59:00 Carlos 00 2021-12-08 2021-12-08 (TEL) STLMLC STLMLC [id number] Co mmon 00:00:00 00:00:00 [facility] 2021-12-02 2021-12-02 OFFICE STLMLC STLMLC [id number] Co mmon 00:00:00 00:00:00 VISIT [facility] PT - CHI LEVEL 4 [facility] 2021-12-02 2021-12-02 WELCOME TO STLMLC STLMLC [id number] Common 00:00:00 00:00:00 MEDICARE Spiri t PREV PHY - CHI EXAM [facility] 2021-11-25 2021-11-25 Outpatient MHIE MHIE [id number] Memoria 14:30:00 14:30:00 00 jem Campbell 2021-11-25 2021-11-25 Outpatient MHIE MHIE [id number] Memoria 14:30:00 14:30:00 00 jem Campbell 2021-11-19 2021-11-19 (TEL) STLMLC STLMLC [id number] Co mmon 00:00:00 00:00:00 [facility] 2021-11-11 2021-11-11 OFFICE STLMLC STLMLC [id number] Co mmon 00:00:00 00:00:00 VISIT [facility] PT - CHI LEVEL 4 [facility] 2021-11-09 2021-11-09 (TEL) STLMLC STLMLC [id number] Co mmon 00:00:00 00:00:00 [facility] 2021-11-02 2021-11-02 (TEL) STLMLC STLMLC [id number] Co mmon 00:00:00 00:00:00 [facility] 2021-10-20 2021-10-20 OFFICE STLMLC STLMLC [id number] Co mmon 00:00:00 00:00:00 VISIT EST Spir it PT LEVEL 3 - CHI [facility] 2021-10-14 2021-10-14 OFFICE STLMLC STLMLC [id number] Co mmon 00:00:00 00:00:00 VISIT EST Spir it PT LEVEL 3 - CHI [facility] 2021-10-13 2021-10-13 (TEL) STLMLC STLMLC [id number] Co mmon 00:00:00 00:00:00 [facility] 2021-10-12 2021-10-12 (TEL) STLMLC STLMLC [id number] Co mmon 00:00:00 00:00:00 [facility] 2021-10-12 2021-10-12 (TEL) STLMLC STLMLC [id number] Co mmon 00:00:00 00:00:00 [facility] 2021-10-12 2021-10-12 OFFICE STLMLC STLMLC [id number] Co mmon 00:00:00 00:00:00 VISIT [facility] PT - [facility] LEVEL 4 [facility] 2021-10-04 2021-10-04 (TEL) STLMLC STLMLC [id number] Co mmon 00:00:00 00:00:00 [facility] 2021-09-27 2021-09-27 (TEL) STLMLC STLMLC [id number] Co mmon 00:00:00 00:00:00 [facility] 2021-09-21 2021-09-21 (TEL) STLMLC STLMLC [id number] Co mmon 00:00:00 00:00:00 [facility] 2021-09-16 2021-09-16 (TEL) STLMLC STLMLC [id number] Co mmon 00:00:00 00:00:00 [facility] 2021-09-16 2021-09-16 OFFICE STLMLC STLMLC [id number] Co mmon 00:00:00 00:00:00 VISIT [facility] it PT LEVEL 3 - [facility] 2021-09-10 2021-09-10 [id number] 12:59:41 23:59:00 Encounter [facility] 2021-09-10 2021-09-10 Outpatient LANDRY [facility] SLE [id number] SLE 12:59:41 23:59:00 [facility] 2021-09-03 2021-09-03 Outside Hung [facility] [id number] 00:00:00 00:00:[address] [facility] 2021 2021 OFFICE STLMLC STLMLC [id number] Co mmon 00:00:00 00:00:00 VISIT [facility] it PT LEVEL 4 - [facility] 2021-08-18 2021-08-18 (TEL) STLMLC STLMLC [id number] Co mmon 00:00:00 00:00:00 [facility] 2021-08-15 2021-08-15 [id number] 00:00:00 00:00:00 [facility] 2021-08-12 2021-08-12 OFFICE STLMLC STLMLC [id number] Co mmon 00:00:00 00:00:00 VISIT [facility] LEVEL 4 [facility] 2021-07-18 2021-07-18 Refill Marcy [facility] [id number] [facility] 00:00:00 00:00:00 [facility] 2021-07-07 2021-07-07 Outpatient NORA PARRISH, SLE SLE [id number] [facility] 00:00:00 00:00:00 [facility] 2021-07-05 2021-07-05 Outpatient STLMLC STLMLC [id number] Common 00:00:00 00:00:00 [facility] 2021-07-05 2021-07-05 Outpatient STLMLC STLMLC [id number] Common 00:00:00 00:00:00 [facility] 2021-07-05 2021-07-05 Outpatient STLMLC STLMLC [id number] Common 00:00:00 00:00:00 [facility] 2021-06-02 2021-06-02 Outpatient NORA PARRISH, SLE [facility]H [id number] [facility] 00:00:00 00:00:00 [facility] 2021-05-12 2021-05-12 Outpatient EL SLEH SLEH [id number] [facility] 00:00:00 00:00:00 2021-05-11 2021-05-11 Outpatient EL SLEH SLEH [id number] [facility] 00:00:00 00:00:00 2021-04-29 2021-04-29 Outpatient EL SLEH SLEH [id number] [facility] 00:00:00 00:00:00 2021-04-27 2021-04-27 Outpatient STLMLC STLMLC [id number] Common 00:00:00 00:00:00 [facility] 2021-04-20 2021-04-20 Outpatient STLMLC STLMLC [id number] Common 00:00:00 00:00:00 [facility] 2021-03-22 2021-03-22 Outpatient NORA DENNISON [facility] [id number] [facility] 00:00:00 00:00:00 [facility] 2021-03-16 2021-03-16 Outpatient NORA DENNISON [facility] [id number] [facility] 00:00:00 00:00:00 [facility] 2021-02-18 2021-02-18 Outpatient STLMLC STLMLC [id number] Common 00:00:00 00:00:00 [facility] 2021-01-04 2021-01-04 Outpatient NORA [facility] [id number] [facility] 00:00:00 00:00:00 2020-11-25 2020-11-25 Outpatient STLMLC STLMLC [id number] Common 00:00:00 00:00:00 [facility] 2020-11-16 2020-11-16 Outpatient STLMLC STLMLC [id number] Common 00:00:00 00:00:00 [facility] 2020-09-08 2020-09-08 Outpatient GOGIA, MHSE MHSE [id number] MH 07:57:00 23:59:00 [facility] 2020-07-28 2020-07-28 Outpatient STLMLC STLMLC [id number] Common 00:00:00 00:00:00 [facility] 2020-07-16 2020-07-16 [facility] [id number] Common 16:13:00 16:13:00 [facility] 2020-07-14 2020-07-14 [facility] [id number] Common 09:30:00 09:30:00 t [facility] 2020-06-01 2020-06-01 Out[facility] [id number] Common 09:00:00 09:00:00 t Bone Bone [facility] Spiri t and Joint [facility] 2020-01-22 2020-01-22 Out[facility] [id number] Common 08:07:00 08:07:00 t [facility] Bone [facility] Spiri t and Joint [facility] 2020-01-08 2020-01-08 Out[facility] [id number] Common 12:23:00 12:23:00 t [facility] Bone [facility] Sp[facility] t [facility] 2019-12-23 2019-12-23 Out[facility] [id number] Common 08:00:00 08:00:00 t [facility] Bone [facility] Sp[facility] t and [facility] 2019-10-10 2019-10-10 Out[facility] [id number] Common 09:37:00 09:37:00 t [facility] Bone [facility] Sp[facility] t and Joint [facility] 2019-10-09 2019-10-09 Out[facility] [id number] Common 15:29:00 15:29:00 t [facility] Bone [facility] Spiri t and Joint [facility] 2019-09-09 2019-09-09 Out[facility] [id number] Common 16:12:00 16:12:00 t Bone Bone and Spiri t and Joint [facility] 2019-09-02 2019-09-02 Out[facility] [id number] Common 12:24:00 12:24:00 t Bone Bone and Spiri t and Joint [facility] 2019-08-22 2019-08-22 Out[facility] [id number] Common 09:00:00 09:00:00 t Bone Bone and Spiri t and Joint [facility] 2019-07-25 2019-07-25 Out[facility] [id number] Common 10:00:00 10:00:00 t Bone Bone and Spiri t and Joint [facility] - [facility] 2019-07-21 2019-07-21 [facility] [id number] Common 20:21:00 20:21:00 t Bone Bone and Spiri t and Joint [facility] - [facility] Results Test Description Test Time Test Comments Results Result Comments Source HEMATOLOGY 2022-08-12 15:38:00 Test Item Value Reference Range Interpretation Comme nts Hgb (test code = Hgb) 13.7 14.0-18.0 [facility]GdmqxhyORVPNBPDRQ2787-65-79 15:38:00 Test Item Value Reference Range Interpretation Comments Hct (test code = Hct) 42.1 42.0-54.0 [facility] HospitalBewlnqnQNNAFPRRZX0081-77-57 15:38:00 Test Item Value Reference Range Interpretation Comments MCV (test code = MCV) 96.0 80.0-94.0 [facility] HospitalOjregipLADRUKHJRL2627-46-68 15:38:00 Test Item Value Reference Range Interpretation Comments MCH (test code = MCH) 31.2 pg 27.0-31.0 [facility] HospitalHlsbpjxAKZHOKVAPZ3402-46-39 15:38:00 Test Item Value Reference Range Interpretation Comments MCHC (test code = MCHC) 32.5 32.0-36.0 [facility] HospitalZsygnsbGCKVNTVIHC1476-78-93 15:38:00 Test Item Value Reference Range Interpretation Comments RDW (test code = RDW) 13.7 11.5-14.5 [facility] HospitalHnncjbqKFJLQWGDFL7379-74-16 15:38:00 Test Item Value Reference Range Interpretation Comments Platelet (test code = Platelet) 167 133-450 [facility] HospitalJqbmtghBXTUFNAEBV9612-00-16 15:38:00 Test Item Value Reference Range Interpretation Comments MPV (test code = MPV) 10.4 7.4-10.4 [facility] HospitalIzurpzyKPKHGUUDUI0485-72-47 15:38:00 Test Item Value Reference Range Interpretation Comments Segs (test code = Segs) 64.6 45.0-75.0 [facility] HospitalApxadvjFAAQKKHUHS6340-60-76 15:38:00 Test Item Value Reference Range Interpretation Comments Lymphocytes (test code = Lymphocytes) 25.6 20.0-40.0 [facility] HospitalAudpainTYDOASDEGT3697-13-13 15:38:00 Test Item Value Reference Range Interpretation Comments Monocytes (test code = Monocytes) 8.5 2.0-12.0 [place] 349662-10-07 15:38:00 Test Item Value Reference Range Interpretation Comments Eosinophils (test code = 0.7 See_Comment [A utomated message] The Eosinophils) system which ge nerated this result tra nsmitted reference range : <=4.0. The reference r maxine was not used to int erpret this result as normal/abnormal . [facility] HospitalEzeyhlmUXSXDYQHNT4642-67-96 15:38:00 Test Item Value Reference Range Interpretation Comments Basophils (test code = 0.6 See_Comment [Aut omated message] The Basophils) system which ge nerated this result tra nsmitted reference range : <=1.0. The reference r maxine was not used to int erpret this result as normal/abnormal . [facility] HospitalJzkbcjnGFAFQWYCOE7287-31-16 15:38:00 Test Item Value Reference Range Interpretation Comments Neutrophils # (test code = Neutrophils 4.4 1.5-8.1 #) [facility] HospitalPnababjYEXHDLUGRS4737-24-90 15:38:00 Test Item Value Reference Range Interpretation Comments Lymphocytes # (test code = Lymphocytes 1.7 1.0-5.5 #) [facility] HospitalItshtjfJIXNQZOLWM8618-76-30 15:38:00 Test Item Value Reference Range Interpretation Comments Monocytes # (test code 0.6 See_Comment [Aut omated message] The = Monocytes #) system which generated this result tra nsmitted reference range : <=0.8. The reference r maxine was not used to int erpret this result as normal/abnormal . [facility]icsNguxgcdSZQSQKYVQQ1378-93-49 15:38:00 Test Item Value Reference Range Interpretation Comments Coronavirus (COVID-19) Not Detected AMBREEN (test code = *NA*(08/12/22 10:38 Coronavirus (COVID-19) AM) AMBREEN) [facility]2022-10-07 15:38:00 Test Item Value Reference Range Interpretation Comments Glucose Lvl (test code = Glucose Lvl) 99 70-99 [place] 830132-10-07 15:38:00 Test Item Value Reference Range Interpretation Comments BUN (test code = BUN) 13 7-22 [place] 830132-10-07 15:38:00 Test Item Value Reference Range Interpretation Comments Creatinine Lvl (test code = Creatinine 0.99 0.50-1.40 Lvl) [place] 830132-10-07 15:38:00 Test Item Value Reference Range Interpretation Comments Sodium Lvl (test code = Sodium Lvl) 141 135-145 [place] 830132-10-07 15:38:00 Test Item Value Reference Range Interpretation Comments Potassium Lvl (test code = Potassium 4.1 3.5-5.1 Lvl) [place] 830132-10-07 15:38:00 Test Item Value Reference Range Interpretation Comments Chloride Lvl (test code = Chloride Lvl) 106 95-109 [place] 830132-10-07 15:38:00 Test Item Value Reference Range Interpretation Comments CO2 (test code = CO2) 27 24-32 [place] 830132-10-07 15:38:00 Test Item Value Reference Range Interpretation Comments Calcium Lvl (test code = Calcium Lvl) 9.2 8.5-10.5 [place] 830132-10-07 15:38:00 Test Item Value Reference Range Interpretation Comments AGAP (test code = AGAP) 12.1 10.0-20.0 [place] 830132-10-07 15:38:00 Test Item Value Reference Range Interpretation Comments eGFR (test code = eGFR) 84 [place] 349662-10-07 15:38:00 Test Item Value Reference Range Interpretation Comments WBC (test code = WBC) 6.8 3.7-10.4 [place] [address]-10-07 15:38:00 Test Item Value Reference Range Interpretation Comments RBC (test code = RBC) 4.39 4.70-6.10 [place] [address]-10-07 15:38:00 Test Item Value Reference Range Interpretation Comments Hgb (test code = Hgb) 13.7 14.0-18.0 [place] [address]-10-07 15:38:00 Test Item Value Reference Range Interpretation Comments Hct (test code = Hct) 42.1 42.0-54.0 [place] 349662-10-07 15:38:00 Test Item Value Reference Range Interpretation Comments MCV (test code = MCV) 96.0 80.0-94.0 [place] 349662-10-07 15:38:00 Test Item Value Reference Range Interpretation Comments MCH (test code = MCH) 31.2 pg 27.0-31.0 [place] 349662-10-07 15:38:00 Test Item Value Reference Range Interpretation Comments MCHC (test code = MCHC) 32.5 32.0-36.0 [place] 349662-10-07 15:38:00 Test Item Value Reference Range Interpretation Comments RDW (test code = RDW) 13.7 11.5-14.5 [place] 349662-10-07 15:38:00 Test Item Value Reference Range Interpretation Comments Platelet (test code = Platelet) 167 133-450 [facility] HospitalRpkxjjfJMFMSALIDI5599-61-65 15:38:00 Test Item Value Reference Range Interpretation Comments MPV (test code = MPV) 10.4 7.4-10.4 [place] [address]-10-07 15:38:00 Test Item Value Reference Range Interpretation Comments Segs (test code = Segs) 64.6 45.0-75.0 [place] [address]-10-07 15:38:00 Test Item Value Reference Range Interpretation Comments Lymphocytes (test code = Lymphocytes) 25.6 20.0-40.0 [place] [address]-10-07 15:38:00 Test Item Value Reference Range Interpretation Comments Monocytes (test code = Monocytes) 8.5 2.0-12.0 [place] [address]-10-07 15:38:00 Test Item Value Reference Range Interpretation Comments Eosinophils (test code = 0.7 See_Comment [A utomated message] The Eosinophils) system which ge nerated this result tra nsmitted reference range : <=4.0. The reference r maxine was not used to int erpret this result as normal/abnormal . [place] [address]-10-07 15:38:00 Test Item Value Reference Range Interpretation Comments Basophils (test code = 0.6 See_Comment [Aut omated message] The Basophils) system which ge nerated this result tra nsmitted reference range : <=1.0. The reference r maxine was not used to int erpret this result as normal/abnormal . [facility] HospitalVswclrfKUSBXVYHFD4995-24-13 15:38:00 Test Item Value Reference Range Interpretation Comments Neutrophils # (test code = Neutrophils 4.4 1.5-8.1 #) [facility] HospitalVjukxfpIJTBSOZMNC6323-00-04 15:38:00 Test Item Value Reference Range Interpretation Comments Lymphocytes # (test code = Lymphocytes 1.7 1.0-5.5 #) [facility] HospitalOtzvhrpFMXQIVXUQN4209-82-90 15:38:00 Test Item Value Reference Range Interpretation Comments Monocytes # (test code 0.6 See_Comment [Aut omated message] The = Monocytes #) system which generated this result tra nsmitted reference range : <=0.8. The reference r maxine was not used to int erpret this result as normal/abnormal . [facility]DehxszaJQCSJIKASO4993-11-31 15:38:00 Test Item Value Reference Range Interpretation Comments Coronavirus (COVID-19) Not Detected AMBREEN (test code = *NA*(08/12/22 10:38 Coronavirus (COVID-19) AM) AMBREEN) [facility]2022-10-07 15:38:00 Test Item Value Reference Range Interpretation Comments Glucose Lvl (test code = Glucose Lvl) 99 70-99 [facility]2022-10-07 15:38:00 Test Item Value Reference Range Interpretation Comments BUN (test code = BUN) 13 - [place] 830132-10-07 15:38:00 Test Item Value Reference Range Interpretation Comments Creatinine Lvl (test code = Creatinine 0.99 0.50-1.40 Lvl) [place] 830132-10-07 15:38:00 Test Item Value Reference Range Interpretation Comments Sodium Lvl (test code = Sodium Lvl) 141 135-145 [facility]2022-10-07 15:38:00 Test Item Value Reference Range Interpretation Comments Potassium Lvl (test code = Potassium 4.1 3.5-5.1 Lvl) [facility]2022-10-07 15:38:00 Test Item Value Reference Range Interpretation Comments Chloride Lvl (test code = Chloride Lvl) 106 95-109 [place] 830132-10-07 15:38:00 Test Item Value Reference Range Interpretation Comments CO2 (test code = CO2) 27 24-32 [place] 830132-10-07 15:38:00 Test Item Value Reference Range Interpretation Comments Calcium Lvl (test code = Calcium Lvl) 9.2 8.5-10.5 [place] 830132-10-07 15:38:00 Test Item Value Reference Range Interpretation Comments AGAP (test code = AGAP) 12.1 10.0-20.0 [place] 830132-10-07 15:38:00 Test Item Value Reference Range Interpretation Comments eGFR (test code = eGFR) 84 [place] 349662-10-07 15:38:00 Test Item Value Reference Range Interpretation Comments WBC (test code = WBC) 6.8 3.7-10.4 [place] 349662-10-07 15:38:00 Test Item Value Reference Range Interpretation Comments RBC (test code = RBC) 4.39 4.70-6.10 [place] 349662-10-07 15:38:00 Test Item Value Reference Range Interpretation Comments Hgb (test code = Hgb) 13.7 14.0-18.0 [place] [address]-10-07 15:38:00 Test Item Value Reference Range Interpretation Comments Hct (test code = Hct) 42.1 42.0-54.0 [place] [address]-10-07 15:38:00 Test Item Value Reference Range Interpretation Comments MCV (test code = MCV) 96.0 80.0-94.0 [place] [address]-10-07 15:38:00 Test Item Value Reference Range Interpretation Comments MCH (test code = MCH) 31.2 pg 27.0-31.0 [place] [address]-10-07 15:38:00 Test Item Value Reference Range Interpretation Comments MCHC (test code = MCHC) 32.5 32.0-36.0 [place] [address]-10-07 15:38:00 Test Item Value Reference Range Interpretation Comments RDW (test code = RDW) 13.7 11.5-14.5 [place] 349662-10-07 15:38:00 Test Item Value Reference Range Interpretation Comments Platelet (test code = Platelet) 167 133-450 [facility] [facility]NjixcmxQXCMSQVNHP6457-01-92 15:38:00 Test Item Value Reference Range Interpretation Comments MPV (test code = MPV) 10.4 7.4-10.4 [facility] HospitalZdbhillUUYGDGSDMM0698-40-14 15:38:00 Test Item Value Reference Range Interpretation Comments Segs (test code = Segs) 64.6 45.0-75.0 [facility] HospitalBbxbjjhDXSWQSAKJS8339-16-68 15:38:00 Test Item Value Reference Range Interpretation Comments Lymphocytes (test code = Lymphocytes) 25.6 20.0-40.0 [facility] HospitalPqtfsduYRPWKZOGLE2407-16-28 15:38:00 Test Item Value Reference Range Interpretation Comments Monocytes (test code = Monocytes) 8.5 2.0-12.0 [facility] HospitalRhxjqrrJILRNYSCPZ8479-92-87 15:38:00 Test Item Value Reference Range Interpretation Comments Eosinophils (test code = 0.7 See_Comment [A utomated message] The Eosinophils) system which ge nerated this result tra nsmitted reference range : <=4.0. The reference r maxine was not used to int erpret this result as normal/abnormal . [facility] HospitalXkyodkwPCGOCQTATM9301-27-43 15:38:00 Test Item Value Reference Range Interpretation Comments Basophils (test code = 0.6 See_Comment [Aut omated message] The Basophils) system which ge nerated this result tra nsmitted reference range : <=1.0. The reference r maxine was not used to int erpret this result as normal/abnormal . [facility] HospitalDkmdflrPCLFZVPMJF0180-50-59 15:38:00 Test Item Value Reference Range Interpretation Comments Neutrophils # (test code = Neutrophils 4.4 1.5-8.1 #) [facility] HospitalPoftibhBRMWDXWYJT2126-35-96 15:38:00 Test Item Value Reference Range Interpretation Comments Lymphocytes # (test code = Lymphocytes 1.7 1.0-5.5 #) [facility] HospitalSkxkxwpCGUWCSOSOQ0080-72-82 15:38:00 Test Item Value Reference Range Interpretation Comments Monocytes # (test code 0.6 See_Comment [Aut omated message] The = Monocytes #) system which generated this result tra nsmitted reference range : <=0.8. The reference r maxine was not used to int erpret this result as normal/abnormal . [facility]icsZvydvusAKWRJLIREI4828-59-37 15:38:00 Test Item Value Reference Range Interpretation Comments Coronavirus (COVID-19) Not Detected AMBREEN (test code = *NA*(08/12/22 10:38 Coronavirus (COVID-19) AM) AMBREEN) [place] 830132-10-07 15:38:00 Test Item Value Reference Range Interpretation Comments Glucose Lvl (test code = Glucose Lvl) 99 70-99 [facility]2022-10-07 15:38:00 Test Item Value Reference Range Interpretation Comments BUN (test code = BUN) 13 - [place] 830132-10-07 15:38:00 Test Item Value Reference Range Interpretation Comments Creatinine Lvl (test code = Creatinine 0.99 0.50-1.40 Lvl) [facility]2022-10-07 15:38:00 Test Item Value Reference Range Interpretation Comments Sodium Lvl (test code = Sodium Lvl) 141 135-145 [place] 830132-10-07 15:38:00 Test Item Value Reference Range Interpretation Comments Potassium Lvl (test code = Potassium 4.1 3.5-5.1 Lvl) [facility]2022-10-07 15:38:00 Test Item Value Reference Range Interpretation Comments Chloride Lvl (test code = Chloride Lvl) 106 95-109 [facility]2022-10-07 15:38:00 Test Item Value Reference Range Interpretation Comments CO2 (test code = CO2) 27 24-32 [place] 830132-10-07 15:38:00 Test Item Value Reference Range Interpretation Comments Calcium Lvl (test code = Calcium Lvl) 9.2 8.5-10.5 [place] 830132-10-07 15:38:00 Test Item Value Reference Range Interpretation Comments AGAP (test code = AGAP) 12.1 10.0-20.0 [place] 830132-10-07 15:38:00 Test Item Value Reference Range Interpretation Comments eGFR (test code = eGFR) 84 [facility] HospitalZmfxeyiLGLQGYIQCA7836-68-80 15:38:00 Test Item Value Reference Range Interpretation Comments WBC (test code = WBC) 6.8 3.7-10.4 [place] 349662-10-07 15:38:00 Test Item Value Reference Range Interpretation Comments RBC (test code = RBC) 4.39 4.70-6.10 [place] [address]-10-07 15:38:00 Test Item Value Reference Range Interpretation Comments Hgb (test code = Hgb) 13.7 14.0-18.0 [place] [address]-10-07 15:38:00 Test Item Value Reference Range Interpretation Comments Hct (test code = Hct) 42.1 42.0-54.0 [place] 349662-10-07 15:38:00 Test Item Value Reference Range Interpretation Comments MCV (test code = MCV) 96.0 80.0-94.0 [place] 349662-10-07 15:38:00 Test Item Value Reference Range Interpretation Comments MCH (test code = MCH) 31.2 pg 27.0-31.0 [place] [address]-10-07 15:38:00 Test Item Value Reference Range Interpretation Comments MCHC (test code = MCHC) 32.5 32.0-36.0 [facility] HospitalOnjzewkPHDDKVMMFC3372-00-84 15:38:00 Test Item Value Reference Range Interpretation Comments RDW (test code = RDW) 13.7 11.5-14.5 [facility] HospitalPjodibvXMHJYVNLYS6582-50-18 15:38:00 Test Item Value Reference Range Interpretation Comments Platelet (test code = Platelet) 167 133-450 [facility] HospitalSmbpzqdGCSMUTIPYH6199-78-84 15:38:00 Test Item Value Reference Range Interpretation Comments MPV (test code = MPV) 10.4 7.4-10.4 [place] 349662-10-07 15:38:00 Test Item Value Reference Range Interpretation Comments Segs (test code = Segs) 64.6 45.0-75.0 [place] [address]-10-07 15:38:00 Test Item Value Reference Range Interpretation Comments Lymphocytes (test code = Lymphocytes) 25.6 20.0-40.0 [place] [address]-10-07 15:38:00 Test Item Value Reference Range Interpretation Comments Monocytes (test code = Monocytes) 8.5 2.0-12.0 [place] [address]-10-07 15:38:00 Test Item Value Reference Range Interpretation Comments Eosinophils (test code = 0.7 See_Comment [A utomated message] The Eosinophils) system which ge nerated this result tra nsmitted reference range : <=4.0. The reference r maxine was not used to int erpret this result as normal/abnormal . [facility] HospitalOoxeiwtELNZTJQKDU9783-76-43 15:38:00 Test Item Value Reference Range Interpretation Comments Basophils (test code = 0.6 See_Comment [Aut omated message] The Basophils) system which ge nerated this result tra nsmitted reference range : <=1.0. The reference r maxine was not used to int erpret this result as normal/abnormal . [facility] HospitalKbhvwbiTAURAJMAXW5169-02-42 15:38:00 Test Item Value Reference Range Interpretation Comments Neutrophils # (test code = Neutrophils 4.4 1.5-8.1 #) [facility] HospitalVclkyxzPFQNDCAMLF9098-19-77 15:38:00 Test Item Value Reference Range Interpretation Comments Lymphocytes # (test code = Lymphocytes 1.7 1.0-5.5 #) [facility] HospitalUvlgepxXSGMEIHMWC1005-76-38 15:38:00 Test Item Value Reference Range Interpretation Comments Monocytes # (test code 0.6 See_Comment [Aut omated message] The = Monocytes #) system which generated this result tra nsmitted reference range : <=0.8. The reference r maxine was not used to int erpret this result as normal/abnormal . [facility]icsClxueogWRLLWRXDOG7456-35-75 15:38:00 Test Item Value Reference Range Interpretation Comments Coronavirus (COVID-19) Not Detected AMBREEN (test code = *NA*(08/12/22 10:38 Coronavirus (COVID-19) AM) AMBREEN) [facility]2022-10-07 15:38:00 Test Item Value Reference Range Interpretation Comments Glucose Lvl (test code = Glucose Lvl) 99 70-99 [facility]2022-10-07 15:38:00 Test Item Value Reference Range Interpretation Comments BUN (test code = BUN) 05-27 [place] 349662-10-07 15:38:00 Test Item Value Reference Range Interpretation Comments Neutrophils # (test code = Neutrophils 4.4 1.5-8.1 #) [facility] HospitalYkdybamJLNQBAAXMI4230-03-81 15:38:00 Test Item Value Reference Range Interpretation Comments Lymphocytes # (test code = Lymphocytes 1.7 1.0-5.5 #) [facility]MclotelKYQUHHSUYY6258-16-17 15:38:00 Test Item Value Reference Range Interpretation Comments Monocytes # (test code 0.6 See_Comment [Aut omated message] The = Monocytes #) system which generated this result tra nsmitted reference range : <=0.8. The reference r maxine was not used to int erpret this result as normal/abnormal . [facility]icsGwxfojtFRRKRVEVNG3595-30-54 15:38:00 Test Item Value Reference Range Interpretation Comments Coronavirus (COVID-19) Not Detected AMBREEN (test code = *NA*(08/12/22 10:38 Coronavirus (COVID-19) AM) AMBREEN) [place] 830132-10-07 15:38:00 Test Item Value Reference Range Interpretation Comments Glucose Lvl (test code = Glucose Lvl) 99 70-99 [place] 830132-10-07 15:38:00 Test Item Value Reference Range Interpretation Comments BUN (test code = BUN) 13 -22 [place] 830132-10-07 15:38:00 Test Item Value Reference Range Interpretation Comments Creatinine Lvl (test code = Creatinine 0.99 0.50-1.40 Lvl) [facility]2022-10-07 15:38:00 Test Item Value Reference Range Interpretation Comments Sodium Lvl (test code = Sodium Lvl) 141 135-145 [facility]2022-10-07 15:38:00 Test Item Value Reference Range Interpretation Comments Creatinine Lvl (test code = Creatinine 0.99 0.50-1.40 Lvl) [place] 830132-10-07 15:38:00 Test Item Value Reference Range Interpretation Comments Potassium Lvl (test code = Potassium 4.1 3.5-5.1 Lvl) [place] 830132-10-07 15:38:00 Test Item Value Reference Range Interpretation Comments Chloride Lvl (test code = Chloride Lvl) 106 95-109 [place] 830132-10-07 15:38:00 Test Item Value Reference Range Interpretation Comments CO2 (test code = CO2) 27 24-32 [place] 830132-10-07 15:38:00 Test Item Value Reference Range Interpretation Comments Calcium Lvl (test code = Calcium Lvl) 9.2 8.5-10.5 [facility]2022-10-07 15:38:00 Test Item Value Reference Range Interpretation Comments AGAP (test code = AGAP) 12.1 10.0-20.0 [place] 830132-10-07 15:38:00 Test Item Value Reference Range Interpretation Comments eGFR (test code = eGFR) 84 [facility] HospitalQbkwkobDKNWHWOEKO7753-05-22 15:38:00 Test Item Value Reference Range Interpretation Comments WBC (test code = WBC) 6.8 3.7-10.4 [place] 349662-10-07 15:38:00 Test Item Value Reference Range Interpretation Comments RBC (test code = RBC) 4.39 4.70-6.10 [facility] HospitalJnuclkpLSAPBRLJUI5980-86-95 15:38:00 Test Item Value Reference Range Interpretation Comments Hgb (test code = Hgb) 13.7 14.0-18.0 [place] 349662-10-07 15:38:00 Test Item Value Reference Range Interpretation Comments Hct (test code = Hct) 42.1 42.0-54.0 [facility]2022-10-07 15:38:00 Test Item Value Reference Range Interpretation Comments Sodium Lvl (test code = Sodium Lvl) 141 135-145 [facility] HospitalOesubrwZJJQOTHPRS8995-43-21 15:38:00 Test Item Value Reference Range Interpretation Comments MCV (test code = MCV) 96.0 80.0-94.0 [place] 349662-10-07 15:38:00 Test Item Value Reference Range Interpretation Comments MCH (test code = MCH) 31.2 pg 27.0-31.0 [place] [address]-10-07 15:38:00 Test Item Value Reference Range Interpretation Comments MCHC (test code = MCHC) 32.5 32.0-36.0 [place] 349662-10-07 15:38:00 Test Item Value Reference Range Interpretation Comments RDW (test code = RDW) 13.7 11.5-14.5 [facility] HospitalUolqsnlHBPVKVEWQP5781-92-90 15:38:00 Test Item Value Reference Range Interpretation Comments Platelet (test code = Platelet) 167 133-450 [place] 349662-10-07 15:38:00 Test Item Value Reference Range Interpretation Comments MPV (test code = MPV) 10.4 7.4-10.4 [place] 349662-10-07 15:38:00 Test Item Value Reference Range Interpretation Comments Segs (test code = Segs) 64.6 45.0-75.0 [facility] HospitalFgilcppRLRNKSONYI5014-43-41 15:38:00 Test Item Value Reference Range Interpretation Comments Lymphocytes (test code = Lymphocytes) 25.6 20.0-40.0 [place] 349662-10-07 15:38:00 Test Item Value Reference Range Interpretation Comments Monocytes (test code = Monocytes) 8.5 2.0-12.0 [place] 349662-10-07 15:38:00 Test Item Value Reference Range Interpretation Comments Eosinophils (test code = 0.7 See_Comment [A utomated message] The Eosinophils) system which ge nerated this result tra nsmitted reference range : <=4.0. The reference r maxine was not used to int erpret this result as normal/abnormal . [facility] LQIMV0980-44-36 15:38:00 Test Item Value Reference Range Interpretation Comments Potassium Lvl (test code = Potassium 4.1 3.5-5.1 Lvl) [facility] HospitalHwpxyonROQNFXNCGF8529-10-75 15:38:00 Test Item Value Reference Range Interpretation Comments Basophils (test code = 0.6 See_Comment [Aut omated message] The Basophils) system which ge nerated this result tra nsmitted reference range : <=1.0. The reference r maxine was not used to int erpret this result as normal/abnormal . [facility] YCTUN7138-89-95 15:38:00 Test Item Value Reference Range Interpretation Comments Chloride Lvl (test code = Chloride Lvl) 106 95-109 [facility] LZEJJ6732-70-72 15:38:00 Test Item Value Reference Range Interpretation Comments CO2 (test code = CO2) 27 24-32 [place] 830132-10-07 15:38:00 Test Item Value Reference Range Interpretation Comments Calcium Lvl (test code = Calcium Lvl) 9.2 8.5-10.5 [facility] NYNRA3277-44-22 15:38:00 Test Item Value Reference Range Interpretation Comments AGAP (test code = AGAP) 12.1 10.0-20.0 [facility]2022-10-07 15:38:00 Test Item Value Reference Range Interpretation Comments eGFR (test code = eGFR) 84 [facility] HospitalFtfpojcEFJTVUCGPH9998-53-43 15:38:00 Test Item Value Reference Range Interpretation Comments WBC (test code = WBC) 6.8 3.7-10.4 [facility] HospitalHvyxbekGHIFEGUFEI4739-99-95 15:38:00 Test Item Value Reference Range Interpretation Comments RBC (test code = RBC) 4.39 4.70-6.10 [facility] HospitalBtkzkbpDMWETMPZPW7386-28-10 15:38:00 Test Item Value Reference Range Interpretation Comments Hgb (test code = Hgb) 13.7 14.0-18.0 [facility] HospitalMajlcgbYSTMUNQSTG4566-52-67 15:38:00 Test Item Value Reference Range Interpretation Comments Hct (test code = Hct) 42.1 42.0-54.0 [facility] HospitalMblqshuGIAPPOWCPZ0846-81-32 15:38:00 Test Item Value Reference Range Interpretation Comments MCV (test code = MCV) 96.0 80.0-94.0 [facility] HospitalSgmqfizKCZWHUTOAK2521-46-68 15:38:00 Test Item Value Reference Range Interpretation Comments MCH (test code = MCH) 31.2 pg 27.0-31.0 [facility] HospitalNzsuyzdCRMWRNGIWG9183-68-65 15:38:00 Test Item Value Reference Range Interpretation Comments MCHC (test code = MCHC) 32.5 32.0-36.0 [facility] HospitalYrrrokdFDPFSSFBEP7908-11-83 15:38:00 Test Item Value Reference Range Interpretation Comments RDW (test code = RDW) 13.7 11.5-14.5 [place] 349662-10-07 15:38:00 Test Item Value Reference Range Interpretation Comments Platelet (test code = Platelet) 167 133-450 [facility] HospitalXpifsjaXMRYTCVSGW4649-41-29 15:38:00 Test Item Value Reference Range Interpretation Comments MPV (test code = MPV) 10.4 7.4-10.4 [facility] HospitalKuysatbJMZMVMEVSV8936-33-91 15:38:00 Test Item Value Reference Range Interpretation Comments Segs (test code = Segs) 64.6 45.0-75.0 [place] [address]-10-07 15:38:00 Test Item Value Reference Range Interpretation Comments Lymphocytes (test code = Lymphocytes) 25.6 20.0-40.0 [facility] HospitalLvawwjsUFIGRJHLNX1406-28-77 15:38:00 Test Item Value Reference Range Interpretation Comments Monocytes (test code = Monocytes) 8.5 2.0-12.0 [facility] HospitalZdexstpEFKBOXJXFI8560-94-42 15:38:00 Test Item Value Reference Range Interpretation Comments Eosinophils (test code = 0.7 See_Comment [A utomated message] The Eosinophils) system which ge nerated this result tra nsmitted reference range : <=4.0. The reference r maxine was not used to int erpret this result as normal/abnormal . [facility] HospitalKxkqgnjKTDBOHFZZG0986-72-17 15:38:00 Test Item Value Reference Range Interpretation Comments Basophils (test code = 0.6 See_Comment [Aut omated message] The Basophils) system which ge nerated this result tra nsmitted reference range : <=1.0. The reference r maxine was not used to int erpret this result as normal/abnormal . [facility] HospitalCuwtplvACFMRUFHHO6086-25-47 15:38:00 Test Item Value Reference Range Interpretation Comments Neutrophils # (test code = Neutrophils 4.4 1.5-8.1 #) [facility] HospitalRjqgjslELLZWOIMYU4258-81-00 15:38:00 Test Item Value Reference Range Interpretation Comments Lymphocytes # (test code = Lymphocytes 1.7 1.0-5.5 #) [facility] HospitalCedsphgKXLCJARSJN1537-99-88 15:38:00 Test Item Value Reference Range Interpretation Comments Monocytes # (test code 0.6 See_Comment [Aut omated message] The = Monocytes #) system which generated this result tra nsmitted reference range : <=0.8. The reference r maxine was not used to int erpret this result as normal/abnormal . [facility]icsKrppzbqOYPOXKGVUG1966-24-84 15:38:00 Test Item Value Reference Range Interpretation Comments Coronavirus (COVID-19) Not Detected AMBREEN (test code = *NA*(08/12/22 10:38 Coronavirus (COVID-19) AM) AMBREEN) [facility]2022-10-07 15:38:00 Test Item Value Reference Range Interpretation Comments Glucose Lvl (test code = Glucose Lvl) 99 70-99 [place] 830132-10-07 15:38:00 Test Item Value Reference Range Interpretation Comments BUN (test code = BUN) 13 7-22 [place] 830132-10-07 15:38:00 Test Item Value Reference Range Interpretation Comments Creatinine Lvl (test code = Creatinine 0.99 0.50-1.40 Lvl) [place] 830132-10-07 15:38:00 Test Item Value Reference Range Interpretation Comments Sodium Lvl (test code = Sodium Lvl) 141 135-145 [place] 830132-10-07 15:38:00 Test Item Value Reference Range Interpretation Comments Potassium Lvl (test code = Potassium 4.1 3.5-5.1 Lvl) [place] 830132-10-07 15:38:00 Test Item Value Reference Range Interpretation Comments Chloride Lvl (test code = Chloride Lvl) 106 95-109 [place] 830132-10-07 15:38:00 Test Item Value Reference Range Interpretation Comments CO2 (test code = CO2) 27 24-32 [place] 830132-10-07 15:38:00 Test Item Value Reference Range Interpretation Comments Calcium Lvl (test code = Calcium Lvl) 9.2 8.5-10.5 [place] 830132-10-07 15:38:00 Test Item Value Reference Range Interpretation Comments AGAP (test code = AGAP) 12.1 10.0-20.0 [place] 830132-10-07 15:38:00 Test Item Value Reference Range Interpretation Comments eGFR (test code = eGFR) 84 [place] 349662-10-07 15:38:00 Test Item Value Reference Range Interpretation Comments WBC (test code = WBC) 6.8 3.7-10.4 [place] [address]-10-07 15:38:00 Test Item Value Reference Range Interpretation Comments RBC (test code = RBC) 4.39 4.70-6.10 [place] [address]-10-07 15:38:00 Test Item Value Reference Range Interpretation Comments Hgb (test code = Hgb) 13.7 14.0-18.0 [place] 349662-10-07 15:38:00 Test Item Value Reference Range Interpretation Comments Hct (test code = Hct) 42.1 42.0-54.0 [place] 349662-10-07 15:38:00 Test Item Value Reference Range Interpretation Comments MCV (test code = MCV) 96.0 80.0-94.0 [place] 349662-10-07 15:38:00 Test Item Value Reference Range Interpretation Comments MCH (test code = MCH) 31.2 pg 27.0-31.0 [place] 349662-10-07 15:38:00 Test Item Value Reference Range Interpretation Comments MCHC (test code = MCHC) 32.5 32.0-36.0 [place] 349662-10-07 15:38:00 Test Item Value Reference Range Interpretation Comments RDW (test code = RDW) 13.7 11.5-14.5 [place] 349662-10-07 15:38:00 Test Item Value Reference Range Interpretation Comments Platelet (test code = Platelet) 167 133-450 [facility] HospitalElcvpbvVHXYKBLCIM8408-74-11 15:38:00 Test Item Value Reference Range Interpretation Comments MPV (test code = MPV) 10.4 7.4-10.4 [place] 349662-10-07 15:38:00 Test Item Value Reference Range Interpretation Comments Segs (test code = Segs) 64.6 45.0-75.0 [facility] HospitalEimymwdXAEZARCZUY0527-29-90 15:38:00 Test Item Value Reference Range Interpretation Comments Lymphocytes (test code = Lymphocytes) 25.6 20.0-40.0 [place] 349662-10-07 15:38:00 Test Item Value Reference Range Interpretation Comments Monocytes (test code = Monocytes) 8.5 2.0-12.0 [place] [address]-10-07 15:38:00 Test Item Value Reference Range Interpretation Comments Eosinophils (test code = 0.7 See_Comment [A utomated message] The Eosinophils) system which ge nerated this result tra nsmitted reference range : <=4.0. The reference r maxine was not used to int erpret this result as normal/abnormal . [place] 349662-10-07 15:38:00 Test Item Value Reference Range Interpretation Comments Basophils (test code = 0.6 See_Comment [Aut omated message] The Basophils) system which ge nerated this result tra nsmitted reference range : <=1.0. The reference r maxine was not used to int erpret this result as normal/abnormal . [place] 349662-10-07 15:38:00 Test Item Value Reference Range Interpretation Comments Neutrophils # (test code = Neutrophils 4.4 1.5-8.1 #) [place] 349662-10-07 15:38:00 Test Item Value Reference Range Interpretation Comments Lymphocytes # (test code = Lymphocytes 1.7 1.0-5.5 #) [place] 349662-10-07 15:38:00 Test Item Value Reference Range Interpretation Comments Monocytes # (test code 0.6 See_Comment [Aut omated message] The = Monocytes #) system which generated this result tra nsmitted reference range : <=0.8. The reference r maxine was not used to int erpret this result as normal/abnormal . [facility]icsQmjhedkRTGBCVKZJT8241-22-88 15:38:00 Test Item Value Reference Range Interpretation Comments Coronavirus (COVID-19) Not Detected AMBREEN (test code = *NA*(08/12/22 10:38 Coronavirus (COVID-19) AM) AMBREEN) [facility]2022-10-07 15:38:00 Test Item Value Reference Range Interpretation Comments Glucose Lvl (test code = Glucose Lvl) 99 70-99 [place] 830132-10-07 15:38:00 Test Item Value Reference Range Interpretation Comments BUN (test code = BUN) 13 - [place] 830132-10-07 15:38:00 Test Item Value Reference Range Interpretation Comments Creatinine Lvl (test code = Creatinine 0.99 0.50-1.40 Lvl) [facility]2022-10-07 15:38:00 Test Item Value Reference Range Interpretation Comments Sodium Lvl (test code = Sodium Lvl) 141 135-145 [facility]2022-10-07 15:38:00 Test Item Value Reference Range Interpretation Comments Potassium Lvl (test code = Potassium 4.1 3.5-5.1 Lvl) [place] 830132-10-07 15:38:00 Test Item Value Reference Range Interpretation Comments Chloride Lvl (test code = Chloride Lvl) 106 95-109 [place] 830132-10-07 15:38:00 Test Item Value Reference Range Interpretation Comments CO2 (test code = CO2) 27 24-32 [place] 830132-10-07 15:38:00 Test Item Value Reference Range Interpretation Comments Calcium Lvl (test code = Calcium Lvl) 9.2 8.5-10.5 [place] 830132-10-07 15:38:00 Test Item Value Reference Range Interpretation Comments AGAP (test code = AGAP) 12.1 10.0-20.0 [place] 830132-10-07 15:38:00 Test Item Value Reference Range Interpretation Comments eGFR (test code = eGFR) 84 [facility] HospitalPmoldcrNYYTHZYFRW1029-35-74 15:38:00 Test Item Value Reference Range Interpretation Comments WBC (test code = WBC) 6.8 3.7-10.4 [place] 349662-10-07 15:38:00 Test Item Value Reference Range Interpretation Comments RBC (test code = RBC) 4.39 4.70-6.10 [facility] HospitalBfwrfarNTONEEJBQA7487-85-72 15:38:00 Test Item Value Reference Range Interpretation Comments Hgb (test code = Hgb) 13.7 14.0-18.0 [facility] HospitalKlnfssfALSBZXHNSC7896-55-69 15:38:00 Test Item Value Reference Range Interpretation Comments Hct (test code = Hct) 42.1 42.0-54.0 [place]662-10-07 15:38:00 Test Item Value Reference Range Interpretation Comments MCV (test code = MCV) 96.0 80.0-94.0 [place]662-10-07 15:38:00 Test Item Value Reference Range Interpretation Comments MCH (test code = MCH) 31.2 pg 27.0-31.0 [place] [address]-10-07 15:38:00 Test Item Value Reference Range Interpretation Comments MCHC (test code = MCHC) 32.5 32.0-36.0 [place] [address]-10-07 15:38:00 Test Item Value Reference Range Interpretation Comments RDW (test code = RDW) 13.7 11.5-14.5 [place]662-10-07 15:38:00 Test Item Value Reference Range Interpretation Comments Platelet (test code = Platelet) 167 133-450 [facility] HospitalCbbfbnyXACQFVFXSF3180-58-89 15:38:00 Test Item Value Reference Range Interpretation Comments MPV (test code = MPV) 10.4 7.4-10.4 [place] [address]662-10-07 15:38:00 Test Item Value Reference Range Interpretation Comments Segs (test code = Segs) 64.6 45.0-75.0 [place] 349662-10-07 15:38:00 Test Item Value Reference Range Interpretation Comments Lymphocytes (test code = Lymphocytes) 25.6 20.0-40.0 [place] [address]-10-07 15:38:00 Test Item Value Reference Range Interpretation Comments Monocytes (test code = Monocytes) 8.5 2.0-12.0 [place] 349662-10-07 15:38:00 Test Item Value Reference Range Interpretation Comments Eosinophils (test code = 0.7 See_Comment [A utomated message] The Eosinophils) system which ge nerated this result tra nsmitted reference range : <=4.0. The reference r maxine was not used to int erpret this result as normal/abnormal . [facility] HospitalPwevzolITPOEMWQFP5127-39-15 15:38:00 Test Item Value Reference Range Interpretation Comments Basophils (test code = 0.6 See_Comment [Aut omated message] The Basophils) system which ge nerated this result tra nsmitted reference range : <=1.0. The reference r maxine was not used to int erpret this result as normal/abnormal . [facility] HospitalMhdsdlpQPYWSGNYVX5779-97-87 15:38:00 Test Item Value Reference Range Interpretation Comments Neutrophils # (test code = Neutrophils 4.4 1.5-8.1 #) [place] 349662-10-07 15:38:00 Test Item Value Reference Range Interpretation Comments Lymphocytes # (test code = Lymphocytes 1.7 1.0-5.5 #) [place] 349662-10-07 15:38:00 Test Item Value Reference Range Interpretation Comments Monocytes # (test code 0.6 See_Comment [Aut omated message] The = Monocytes #) system which generated this result tra nsmitted reference range : <=0.8. The reference r maxine was not used to int erpret this result as normal/abnormal . [facility]icsDserwmwTKQWDBVRQR3958-28-73 15:38:00 Test Item Value Reference Range Interpretation Comments Coronavirus (COVID-19) Not Detected AMBREEN (test code = *NA*(08/12/22 10:38 Coronavirus (COVID-19) AM) AMBREEN) [facility]2022-10-07 15:38:00 Test Item Value Reference Range Interpretation Comments Glucose Lvl (test code = Glucose Lvl) 99 70-99 [facility]2022-10-07 15:38:00 Test Item Value Reference Range Interpretation Comments BUN (test code = BUN) 13 - [facility]2022-10-07 15:38:00 Test Item Value Reference Range Interpretation Comments Creatinine Lvl (test code = Creatinine 0.99 0.50-1.40 Lvl) [facility]2022-10-07 15:38:00 Test Item Value Reference Range Interpretation Comments Sodium Lvl (test code = Sodium Lvl) 141 135-145 [facility]2022-10-07 15:38:00 Test Item Value Reference Range Interpretation Comments Potassium Lvl (test code = Potassium 4.1 3.5-5.1 Lvl) [facility]2022-10-07 15:38:00 Test Item Value Reference Range Interpretation Comments Chloride Lvl (test code = Chloride Lvl) 106 95-109 [place] 830132-10-07 15:38:00 Test Item Value Reference Range Interpretation Comments CO2 (test code = CO2) 27 24-32 [facility]2022-10-07 15:38:00 Test Item Value Reference Range Interpretation Comments Calcium Lvl (test code = Calcium Lvl) 9.2 8.5-10.5 [facility]2022-10-07 15:38:00 Test Item Value Reference Range Interpretation Comments AGAP (test code = AGAP) 12.1 10.0-20.0 [place] 830132-10-07 15:38:00 Test Item Value Reference Range Interpretation Comments eGFR (test code = eGFR) 84 [facility] HospitalCxosfzqEDDBSQSLIW0462-11-26 15:38:00 Test Item Value Reference Range Interpretation Comments WBC (test code = WBC) 6.8 3.7-10.4 [place] [address]662-10-07 15:38:00 Test Item Value Reference Range Interpretation Comments RBC (test code = RBC) 4.39 4.70-6.10 [place] 349662-10-07 15:38:00 Test Item Value Reference Range Interpretation Comments Hgb (test code = Hgb) 13.7 14.0-18.0 [place] [address]-10-07 15:38:00 Test Item Value Reference Range Interpretation Comments Hct (test code = Hct) 42.1 42.0-54.0 [facility] HospitalKhkurkeJZPGEHZMTF7728-42-23 15:38:00 Test Item Value Reference Range Interpretation Comments MCV (test code = MCV) 96.0 80.0-94.0 [place] 349662-10-07 15:38:00 Test Item Value Reference Range Interpretation Comments MCH (test code = MCH) 31.2 pg 27.0-31.0 [place] 349662-10-07 15:38:00 Test Item Value Reference Range Interpretation Comments MCHC (test code = MCHC) 32.5 32.0-36.0 [facility] HospitalEzmjrofHNRYKTARXU8248-40-20 15:38:00 Test Item Value Reference Range Interpretation Comments RDW (test code = RDW) 13.7 11.5-14.5 [facility] HospitalCtcsozkIMGYYDGZEZ3987-47-85 15:38:00 Test Item Value Reference Range Interpretation Comments Platelet (test code = Platelet) 167 133-450 [facility] HospitalWuijcsaKPYXQDEEAX7493-53-52 15:38:00 Test Item Value Reference Range Interpretation Comments MPV (test code = MPV) 10.4 7.4-10.4 [place] 349662-10-07 15:38:00 Test Item Value Reference Range Interpretation Comments Segs (test code = Segs) 64.6 45.0-75.0 [place] [address]-10-07 15:38:00 Test Item Value Reference Range Interpretation Comments Lymphocytes (test code = Lymphocytes) 25.6 20.0-40.0 [place] [address]-10-07 15:38:00 Test Item Value Reference Range Interpretation Comments Monocytes (test code = Monocytes) 8.5 2.0-12.0 [place] 349662-10-07 15:38:00 Test Item Value Reference Range Interpretation Comments Eosinophils (test code = 0.7 See_Comment [A utomated message] The Eosinophils) system which ge nerated this result tra nsmitted reference range : <=4.0. The reference r maxine was not used to int erpret this result as normal/abnormal . [facility] HospitalYnubcynKSGWLAHXMO2468-86-10 15:38:00 Test Item Value Reference Range Interpretation Comments Basophils (test code = 0.6 See_Comment [Aut omated message] The Basophils) system which ge nerated this result tra nsmitted reference range : <=1.0. The reference r maxine was not used to int erpret this result as normal/abnormal . [facility] HospitalLiuklcrXNQTFZGIYI4888-83-45 15:38:00 Test Item Value Reference Range Interpretation Comments Neutrophils # (test code = Neutrophils 4.4 1.5-8.1 #) [facility] HospitalDxsbziyDYRSRZAWWR2441-36-71 15:38:00 Test Item Value Reference Range Interpretation Comments Lymphocytes # (test code = Lymphocytes 1.7 1.0-5.5 #) [facility] HospitalUqkqgepWXYYIYVXBF5820-03-90 15:38:00 Test Item Value Reference Range Interpretation Comments Monocytes # (test code 0.6 See_Comment [Aut omated message] The = Monocytes #) system which generated this result tra nsmitted reference range : <=0.8. The reference r maxine was not used to int erpret this result as normal/abnormal . [facility]icsMfmxbamPZWIWDVYWG8201-27-74 15:38:00 Test Item Value Reference Range Interpretation Comments Coronavirus (COVID-19) Not Detected AMBREEN (test code = *NA*(08/12/22 10:38 Coronavirus (COVID-19) AM) AMBREEN) [facility]2022-10-07 15:38:00 Test Item Value Reference Range Interpretation Comments Glucose Lvl (test code = Glucose Lvl) 99 70-99 [facility]2022-10-07 15:38:00 Test Item Value Reference Range Interpretation Comments BUN (test code = BUN) 05-27 [facility]2022-10-07 15:38:00 Test Item Value Reference Range Interpretation Comments Creatinine Lvl (test code = Creatinine 0.99 0.50-1.40 Lvl) [facility]2022-10-07 15:38:00 Test Item Value Reference Range Interpretation Comments Sodium Lvl (test code = Sodium Lvl) 141 135-145 [place] 830132-10-07 15:38:00 Test Item Value Reference Range Interpretation Comments Potassium Lvl (test code = Potassium 4.1 3.5-5.1 Lvl) [place] 830132-10-07 15:38:00 Test Item Value Reference Range Interpretation Comments Chloride Lvl (test code = Chloride Lvl) 106 95-109 [place] 830132-10-07 15:38:00 Test Item Value Reference Range Interpretation Comments CO2 (test code = CO2) 27 24-32 [place] 830132-10-07 15:38:00 Test Item Value Reference Range Interpretation Comments Calcium Lvl (test code = Calcium Lvl) 9.2 8.5-10.5 [place] 830132-10-07 15:38:00 Test Item Value Reference Range Interpretation Comments AGAP (test code = AGAP) 12.1 10.0-20.0 [place] 830132-10-07 15:38:00 Test Item Value Reference Range Interpretation Comments eGFR (test code = eGFR) 84 [place] [address]-10-07 15:38:00 Test Item Value Reference Range Interpretation Comments WBC (test code = WBC) 6.8 3.7-10.4 [place] 349662-10-07 15:38:00 Test Item Value Reference Range Interpretation Comments RBC (test code = RBC) 4.39 4.70-6.10 [place] [address]-10-07 15:38:00 Test Item Value Reference Range Interpretation Comments Hgb (test code = Hgb) 13.7 14.0-18.0 [place] [address]-10-07 15:38:00 Test Item Value Reference Range Interpretation Comments Hct (test code = Hct) 42.1 42.0-54.0 [place] [address]-10-07 15:38:00 Test Item Value Reference Range Interpretation Comments MCV (test code = MCV) 96.0 80.0-94.0 [place] [address]-10-07 15:38:00 Test Item Value Reference Range Interpretation Comments MCH (test code = MCH) 31.2 pg 27.0-31.0 [place] [address]-10-07 15:38:00 Test Item Value Reference Range Interpretation Comments MCHC (test code = MCHC) 32.5 32.0-36.0 [place] [address]662-10-07 15:38:00 Test Item Value Reference Range Interpretation Comments RDW (test code = RDW) 13.7 11.5-14.5 [place]662-10-07 15:38:00 Test Item Value Reference Range Interpretation Comments Platelet (test code = Platelet) 167 133-450 [place] 349662-10-07 15:38:00 Test Item Value Reference Range Interpretation Comments MPV (test code = MPV) 10.4 7.4-10.4 [place]-10-07 15:38:00 Test Item Value Reference Range Interpretation Comments Segs (test code = Segs) 64.6 45.0-75.0 [place] [address]-10-07 15:38:00 Test Item Value Reference Range Interpretation Comments Lymphocytes (test code = Lymphocytes) 25.6 20.0-40.0 [place] [address]-10-07 15:38:00 Test Item Value Reference Range Interpretation Comments Monocytes (test code = Monocytes) 8.5 2.0-12.0 [place] 349662-10-07 15:38:00 Test Item Value Reference Range Interpretation Comments Eosinophils (test code = 0.7 See_Comment [A utomated message] The Eosinophils) system which ge nerated this result tra nsmitted reference range : <=4.0. The reference r maxine was not used to int erpret this result as normal/abnormal . [facility] HospitalRvhxzrqYGXLNQOIPV2288-02-85 15:38:00 Test Item Value Reference Range Interpretation Comments Basophils (test code = 0.6 See_Comment [Aut omated message] The Basophils) system which ge nerated this result tra nsmitted reference range : <=1.0. The reference r maxine was not used to int erpret this result as normal/abnormal . [place] [address]662-10-07 15:38:00 Test Item Value Reference Range Interpretation Comments Neutrophils # (test code = Neutrophils 4.4 1.5-8.1 #) [place] [address]662-10-07 15:38:00 Test Item Value Reference Range Interpretation Comments Lymphocytes # (test code = Lymphocytes 1.7 1.0-5.5 #) [facility]Jum[facility]wfPOJTQLCCVW2761-69-17 15:38:00 Test Item Value Reference Range Interpretation Comments Monocytes # (test code 0.6 See_Comment [Aut omated message] The = Monocytes #) system which generated this result tra nsmitted reference range : <=0.8. The reference r maxine was not used to int erpret this result as normal/abnormal . [facility]icsSjjzdpgSIOPCHEUQT7855-10-94 15:38:00 Test Item Value Reference Range Interpretation Comments Coronavirus (COVID-19) Not Detected AMBREEN (test code = *NA*(08/12/22 10:38 Coronavirus (COVID-19) AM) AMBREEN) [facility]2022-10-07 15:38:00 Test Item Value Reference Range Interpretation Comments Glucose Lvl (test code = Glucose Lvl) 99 70-99 [facility]2022-10-07 15:38:00 Test Item Value Reference Range Interpretation Comments BUN (test code = BUN) 13 -22 [facility]2022-10-07 15:38:00 Test Item Value Reference Range Interpretation Comments Creatinine Lvl (test code = Creatinine 0.99 0.50-1.40 Lvl) [facility]2022-10-07 15:38:00 Test Item Value Reference Range Interpretation Comments Sodium Lvl (test code = Sodium Lvl) 141 135-145 [facility]2022-10-07 15:38:00 Test Item Value Reference Range Interpretation Comments Potassium Lvl (test code = Potassium 4.1 3.5-5.1 Lvl) [facility]2022-10-07 15:38:00 Test Item Value Reference Range Interpretation Comments Chloride Lvl (test code = Chloride Lvl) 106 95-109 [facility]2022-10-07 15:38:00 Test Item Value Reference Range Interpretation Comments CO2 (test code = CO2) 27 24-32 [facility]2022-10-07 15:38:00 Test Item Value Reference Range Interpretation Comments Calcium Lvl (test code = Calcium Lvl) 9.2 8.5-10.5 [facility]2022-10-07 15:38:00 Test Item Value Reference Range Interpretation Comments AGAP (test code = AGAP) 12.1 10.0-20.0 [facility]2022-10-07 15:38:00 Test Item Value Reference Range Interpretation Comments eGFR (test code = eGFR) 84 [facility] HospitalYiwfdymHAFEEQYWHX6293-63-28 15:38:00 Test Item Value Reference Range Interpretation Comments WBC (test code = WBC) 6.8 3.7-10.4 [facility] HospitalOzpagwxYRCQVJAAXE0137-44-48 15:38:00 Test Item Value Reference Range Interpretation Comments RBC (test code = RBC) 4.39 4.70-6.10 [place] [address]662-10-07 15:38:00 Test Item Value Reference Range Interpretation Comments Hgb (test code = Hgb) 13.7 14.0-18.0 [place] [address]-10-07 15:38:00 Test Item Value Reference Range Interpretation Comments Hct (test code = Hct) 42.1 42.0-54.0 [place] [address]-10-07 15:38:00 Test Item Value Reference Range Interpretation Comments MCV (test code = MCV) 96.0 80.0-94.0 [place] [address]-10-07 15:38:00 Test Item Value Reference Range Interpretation Comments MCH (test code = MCH) 31.2 pg 27.0-31.0 [facility] HospitalTzezagqVLPGIYHOAV1039-43-68 15:38:00 Test Item Value Reference Range Interpretation Comments MCHC (test code = MCHC) 32.5 32.0-36.0 [facility] HospitalCndhuugDDQYANTWGS3615-82-76 15:38:00 Test Item Value Reference Range Interpretation Comments RDW (test code = RDW) 13.7 11.5-14.5 [place] [address]-10-07 15:38:00 Test Item Value Reference Range Interpretation Comments Platelet (test code = Platelet) 167 133-450 [facility] HospitalLvsyyfiNORQKFCWVW7809-70-71 15:38:00 Test Item Value Reference Range Interpretation Comments MPV (test code = MPV) 10.4 7.4-10.4 [place] [address]662-10-07 15:38:00 Test Item Value Reference Range Interpretation Comments Segs (test code = Segs) 64.6 45.0-75.0 [facility] HospitalWrndgkxAQFQSKLUPY8223-02-00 15:38:00 Test Item Value Reference Range Interpretation Comments Lymphocytes (test code = Lymphocytes) 25.6 20.0-40.0 [facility] HospitalYevrhszAYFCBLWUAN2890-55-70 15:38:00 Test Item Value Reference Range Interpretation Comments Monocytes (test code = Monocytes) 8.5 2.0-12.0 [place] 349662-10-07 15:38:00 Test Item Value Reference Range Interpretation Comments Eosinophils (test code = 0.7 See_Comment [A utomated message] The Eosinophils) system which ge nerated this result tra nsmitted reference range : <=4.0. The reference r maxine was not used to int erpret this result as normal/abnormal . [facility] HospitalYjduvdmRXEDMUWIQR8428-09-02 15:38:00 Test Item Value Reference Range Interpretation Comments Basophils (test code = 0.6 See_Comment [Aut omated message] The Basophils) system which ge nerated this result tra nsmitted reference range : <=1.0. The reference r maxine was not used to int erpret this result as normal/abnormal . [facility] HospitalBfelevuDTDZFQMGET2670-77-24 15:38:00 Test Item Value Reference Range Interpretation Comments Neutrophils # (test code = Neutrophils 4.4 1.5-8.1 #) [facility] HospitalSveidtgGPJISTFLNO8851-57-97 15:38:00 Test Item Value Reference Range Interpretation Comments Lymphocytes # (test code = Lymphocytes 1.7 1.0-5.5 #) [place] 349662-10-07 15:38:00 Test Item Value Reference Range Interpretation Comments Monocytes # (test code 0.6 See_Comment [Aut omated message] The = Monocytes #) system which generated this result tra nsmitted reference range : <=0.8. The reference r maxine was not used to int erpret this result as normal/abnormal . [facility]icsAhmkydoNTERGJNRAY8619-14-38 15:38:00 Test Item Value Reference Range Interpretation Comments Coronavirus (COVID-19) Not Detected AMBREEN (test code = *NA*(08/12/22 10:38 Coronavirus (COVID-19) AM) AMBREEN) [facility]2022-10-07 15:38:00 Test Item Value Reference Range Interpretation Comments Glucose Lvl (test code = Glucose Lvl) 99 70-99 [facility]2022-10-07 15:38:00 Test Item Value Reference Range Interpretation Comments BUN (test code = BUN) 13 7-22 [place] 830132-10-07 15:38:00 Test Item Value Reference Range Interpretation Comments Creatinine Lvl (test code = Creatinine 0.99 0.50-1.40 Lvl) [place] 830132-10-07 15:38:00 Test Item Value Reference Range Interpretation Comments Sodium Lvl (test code = Sodium Lvl) 141 135-145 [place] 830132-10-07 15:38:00 Test Item Value Reference Range Interpretation Comments Potassium Lvl (test code = Potassium 4.1 3.5-5.1 Lvl) [place] 830132-10-07 15:38:00 Test Item Value Reference Range Interpretation Comments Chloride Lvl (test code = Chloride Lvl) 106 95-109 [place] 830132-10-07 15:38:00 Test Item Value Reference Range Interpretation Comments CO2 (test code = CO2) 27 24-32 [place] 830132-10-07 15:38:00 Test Item Value Reference Range Interpretation Comments Calcium Lvl (test code = Calcium Lvl) 9.2 8.5-10.5 [place] 830132-10-07 15:38:00 Test Item Value Reference Range Interpretation Comments AGAP (test code = AGAP) 12.1 10.0-20.0 [place] 830132-10-07 15:38:00 Test Item Value Reference Range Interpretation Comments eGFR (test code = eGFR) 84 [facility] HospitalYcbxpqaINWGAWYPSG5043-44-84 15:38:00 Test Item Value Reference Range Interpretation Comments WBC (test code = WBC) 6.8 3.7-10.4 [place] [address]-10-07 15:38:00 Test Item Value Reference Range Interpretation Comments RBC (test code = RBC) 4.39 4.70-6.10 [place] 349662-10-07 15:38:00 Test Item Value Reference Range Interpretation Comments Hgb (test code = Hgb) 13.7 14.0-18.0 [place] 349662-10-07 15:38:00 Test Item Value Reference Range Interpretation Comments Hct (test code = Hct) 42.1 42.0-54.0 [place]662-10-07 15:38:00 Test Item Value Reference Range Interpretation Comments MCV (test code = MCV) 96.0 80.0-94.0 [place] 349662-10-07 15:38:00 Test Item Value Reference Range Interpretation Comments MCH (test code = MCH) 31.2 pg 27.0-31.0 [place] 349662-10-07 15:38:00 Test Item Value Reference Range Interpretation Comments MCHC (test code = MCHC) 32.5 32.0-36.0 [place] 349662-10-07 15:38:00 Test Item Value Reference Range Interpretation Comments RDW (test code = RDW) 13.7 11.5-14.5 [place]662-10-07 15:38:00 Test Item Value Reference Range Interpretation Comments Platelet (test code = Platelet) 167 133-450 [facility] HospitalPxzulxvTHVXJDAAOS2990-11-64 15:38:00 Test Item Value Reference Range Interpretation Comments MPV (test code = MPV) 10.4 7.4-10.4 [facility] HospitalCsaxwemIBJBSLFIZR8519-10-66 15:38:00 Test Item Value Reference Range Interpretation Comments Segs (test code = Segs) 64.6 45.0-75.0 [facility] HospitalPemdtpmDRAJIQRUMO1639-96-89 15:38:00 Test Item Value Reference Range Interpretation Comments Lymphocytes (test code = Lymphocytes) 25.6 20.0-40.0 [place] 349662-10-07 15:38:00 Test Item Value Reference Range Interpretation Comments Monocytes (test code = Monocytes) 8.5 2.0-12.0 [place] [address]-10-07 15:38:00 Test Item Value Reference Range Interpretation Comments Eosinophils (test code = 0.7 See_Comment [A utomated message] The Eosinophils) system which ge nerated this result tra nsmitted reference range : <=4.0. The reference r maxine was not used to int erpret this result as normal/abnormal . [facility] HospitalEfvjnnpDIDWVZFHMU9844-38-42 15:38:00 Test Item Value Reference Range Interpretation Comments Basophils (test code = 0.6 See_Comment [Aut omated message] The Basophils) system which ge nerated this result tra nsmitted reference range : <=1.0. The reference r maxine was not used to int erpret this result as normal/abnormal . [facility] HospitalPstxbmoRIDMWOTAAH1981-27-30 15:38:00 Test Item Value Reference Range Interpretation Comments Neutrophils # (test code = Neutrophils 4.4 1.5-8.1 #) [place] 349662-10-07 15:38:00 Test Item Value Reference Range Interpretation Comments Lymphocytes # (test code = Lymphocytes 1.7 1.0-5.5 #) [facility] HospitalBokuxvaGIUPXTHCFX8556-80-20 15:38:00 Test Item Value Reference Range Interpretation Comments Monocytes # (test code 0.6 See_Comment [Aut omated message] The = Monocytes #) system which generated this result tra nsmitted reference range : <=0.8. The reference r maxine was not used to int erpret this result as normal/abnormal . [facility]XhflvjoCXYASUKPSG7534-15-70 15:38:00 Test Item Value Reference Range Interpretation Comments Coronavirus (COVID-19) Not Detected AMBREEN (test code = *NA*(08/12/22 10:38 Coronavirus (COVID-19) AM) AMBREEN) [facility]2022-10-07 15:38:00 Test Item Value Reference Range Interpretation Comments Glucose Lvl (test code = Glucose Lvl) 99 70-99 [facility]2022-10-07 15:38:00 Test Item Value Reference Range Interpretation Comments BUN (test code = BUN) 13 7-22 [place] 830132-10-07 15:38:00 Test Item Value Reference Range Interpretation Comments Creatinine Lvl (test code = Creatinine 0.99 0.50-1.40 Lvl) [facility]2022-10-07 15:38:00 Test Item Value Reference Range Interpretation Comments Sodium Lvl (test code = Sodium Lvl) 141 135-145 [facility]2022-10-07 15:38:00 Test Item Value Reference Range Interpretation Comments Potassium Lvl (test code = Potassium 4.1 3.5-5.1 Lvl) [place]0132-10-07 15:38:00 Test Item Value Reference Range Interpretation Comments Chloride Lvl (test code = Chloride Lvl) 106 95-109 [facility]2022-10-07 15:38:00 Test Item Value Reference Range Interpretation Comments CO2 (test code = CO2) 27 24-32 [place] 830132-10-07 15:38:00 Test Item Value Reference Range Interpretation Comments Calcium Lvl (test code = Calcium Lvl) 9.2 8.5-10.5 [place] 830132-10-07 15:38:00 Test Item Value Reference Range Interpretation Comments AGAP (test code = AGAP) 12.1 10.0-20.0 [place] 830132-10-07 15:38:00 Test Item Value Reference Range Interpretation Comments eGFR (test code = eGFR) 84 [facility]PmfafedXYMTMFPQFQ1894-04-43 15:38:00 Test Item Value Reference Range Interpretation Comments WBC (test code = WBC) 6.8 3.7-10.4 [place] 349662-10-07 15:38:00 Test Item Value Reference Range Interpretation Comments RBC (test code = RBC) 4.39 4.70-6.10 [place] 349662-10-07 15:38:00 Test Item Value Reference Range Interpretation Comments Hgb (test code = Hgb) 13.7 14.0-18.0 [place] 349662-10-07 15:38:00 Test Item Value Reference Range Interpretation Comments Hct (test code = Hct) 42.1 42.0-54.0 [place] 349662-10-07 15:38:00 Test Item Value Reference Range Interpretation Comments MCV (test code = MCV) 96.0 80.0-94.0 [place] 349662-10-07 15:38:00 Test Item Value Reference Range Interpretation Comments MCH (test code = MCH) 31.2 pg 27.0-31.0 [place] [address]-10-07 15:38:00 Test Item Value Reference Range Interpretation Comments MCHC (test code = MCHC) 32.5 32.0-36.0 [place] 349662-10-07 15:38:00 Test Item Value Reference Range Interpretation Comments RDW (test code = RDW) 13.7 11.5-14.5 [place] 349662-10-07 15:38:00 Test Item Value Reference Range Interpretation Comments Platelet (test code = Platelet) 167 133-450 [place] 349662-10-07 15:38:00 Test Item Value Reference Range Interpretation Comments MPV (test code = MPV) 10.4 7.4-10.4 [place] [address]-10-07 15:38:00 Test Item Value Reference Range Interpretation Comments Segs (test code = Segs) 64.6 45.0-75.0 [place] [address]-10-07 15:38:00 Test Item Value Reference Range Interpretation Comments Lymphocytes (test code = Lymphocytes) 25.6 20.0-40.0 [place] [address]-10-07 15:38:00 Test Item Value Reference Range Interpretation Comments Monocytes (test code = Monocytes) 8.5 2.0-12.0 [place] [address]-10-07 15:38:00 Test Item Value Reference Range Interpretation Comments Eosinophils (test code = 0.7 See_Comment [A utomated message] The Eosinophils) system which ge nerated this result tra nsmitted reference range : <=4.0. The reference r maxine was not used to int erpret this result as normal/abnormal . [place] 349662-10-07 15:38:00 Test Item Value Reference Range Interpretation Comments Basophils (test code = 0.6 See_Comment [Aut omated message] The Basophils) system which ge nerated this result tra nsmitted reference range : <=1.0. The reference r maxine was not used to int erpret this result as normal/abnormal . [place] 349662-10-07 15:38:00 Test Item Value Reference Range Interpretation Comments Neutrophils # (test code = Neutrophils 4.4 1.5-8.1 #) [place] [address]-10-07 15:38:00 Test Item Value Reference Range Interpretation Comments Lymphocytes # (test code = Lymphocytes 1.7 1.0-5.5 #) [place] 349662-10-07 15:38:00 Test Item Value Reference Range Interpretation Comments Monocytes # (test code 0.6 See_Comment [Aut omated message] The = Monocytes #) system which generated this result tra nsmitted reference range : <=0.8. The reference r maxine was not used to int erpret this result as normal/abnormal . [facility]icsTsbcezjVNMPKKYMUF3930-99-59 15:38:00 Test Item Value Reference Range Interpretation Comments Coronavirus (COVID-19) Not Detected AMBREEN (test code = *NA*(08/12/22 10:38 Coronavirus (COVID-19) AM) AMBREEN) [place] 830132-10-07 15:38:00 Test Item Value Reference Range Interpretation Comments Glucose Lvl (test code = Glucose Lvl) 99 70-99 [facility]2022-10-07 15:38:00 Test Item Value Reference Range Interpretation Comments BUN (test code = BUN) 13 7-22 [place] 830132-10-07 15:38:00 Test Item Value Reference Range Interpretation Comments Creatinine Lvl (test code = Creatinine 0.99 0.50-1.40 Lvl) [facility]2022-10-07 15:38:00 Test Item Value Reference Range Interpretation Comments Sodium Lvl (test code = Sodium Lvl) 141 135-145 [facility]2022-10-07 15:38:00 Test Item Value Reference Range Interpretation Comments Potassium Lvl (test code = Potassium 4.1 3.5-5.1 Lvl) [facility]2022-10-07 15:38:00 Test Item Value Reference Range Interpretation Comments Chloride Lvl (test code = Chloride Lvl) 106 95-109 [facility]2022-10-07 15:38:00 Test Item Value Reference Range Interpretation Comments CO2 (test code = CO2) 27 24-32 [place] 830132-10-07 15:38:00 Test Item Value Reference Range Interpretation Comments Calcium Lvl (test code = Calcium Lvl) 9.2 8.5-10.5 [place] 830132-10-07 15:38:00 Test Item Value Reference Range Interpretation Comments AGAP (test code = AGAP) 12.1 10.0-20.0 [place] 830132-10-07 15:38:00 Test Item Value Reference Range Interpretation Comments eGFR (test code = eGFR) 84 [facility]adFTYFLXMFXB1634-43-90 15:38:00 Test Item Value Reference Range Interpretation Comments WBC (test code = WBC) 6.8 3.7-10.4 [facility] HospitalPuhdstfUMOMNMUVBB5944-17-03 15:38:00 Test Item Value Reference Range Interpretation Comments RBC (test code = RBC) 4.39 4.70-6.10 [facility] HospitalEojjlzqXBXXYSLSFV6895-80-37 15:38:00 Test Item Value Reference Range Interpretation Comments Hgb (test code = Hgb) 13.7 14.0-18.0 [place] 349662-10-07 15:38:00 Test Item Value Reference Range Interpretation Comments Hct (test code = Hct) 42.1 42.0-54.0 [facility] HospitalQxiiaxaFFMYXBGKKJ4241-80-46 15:38:00 Test Item Value Reference Range Interpretation Comments MCV (test code = MCV) 96.0 80.0-94.0 [place] 349662-10-07 15:38:00 Test Item Value Reference Range Interpretation Comments MCH (test code = MCH) 31.2 pg 27.0-31.0 [facility] HospitalTfdspxrWZGWMDUWGM5830-38-41 15:38:00 Test Item Value Reference Range Interpretation Comments MCHC (test code = MCHC) 32.5 32.0-36.0 [facility] HospitalXsrisxzCAAZRLHQWX9526-61-75 15:38:00 Test Item Value Reference Range Interpretation Comments RDW (test code = RDW) 13.7 11.5-14.5 [facility] HospitalUrmvzyoZIXSBBAPZT0237-92-24 15:38:00 Test Item Value Reference Range Interpretation Comments Platelet (test code = Platelet) 167 133-450 [facility] HospitalAygncwzDKJBMTWDWK4465-45-65 15:38:00 Test Item Value Reference Range Interpretation Comments MPV (test code = MPV) 10.4 7.4-10.4 [facility] HospitalHjdkapuVNCLMHRHRF1934-48-36 15:38:00 Test Item Value Reference Range Interpretation Comments Segs (test code = Segs) 64.6 45.0-75.0 [facility] HospitalWbpdrgqPQYSIOKNQO9938-59-29 15:38:00 Test Item Value Reference Range Interpretation Comments Lymphocytes (test code = Lymphocytes) 25.6 20.0-40.0 [facility] HospitalCkdwnqsCJCONRZRZW7558-95-94 15:38:00 Test Item Value Reference Range Interpretation Comments Monocytes (test code = Monocytes) 8.5 2.0-12.0 [place] 349662-10-07 15:38:00 Test Item Value Reference Range Interpretation Comments Eosinophils (test code = 0.7 See_Comment [A utomated message] The Eosinophils) system which ge nerated this result tra nsmitted reference range : <=4.0. The reference r maxine was not used to int erpret this result as normal/abnormal . [facility] HospitalHxcrqqvLJAJSFHCBI4630-18-18 15:38:00 Test Item Value Reference Range Interpretation Comments Basophils (test code = 0.6 See_Comment [Aut omated message] The Basophils) system which ge nerated this result tra nsmitted reference range : <=1.0. The reference r maxine was not used to int erpret this result as normal/abnormal . [facility] HospitalScfhcymXHHOOWVMNW5587-10-69 15:38:00 Test Item Value Reference Range Interpretation Comments Neutrophils # (test code = Neutrophils 4.4 1.5-8.1 #) [facility] HospitalJihymchGZDDQQJVWO5634-55-87 15:38:00 Test Item Value Reference Range Interpretation Comments Lymphocytes # (test code = Lymphocytes 1.7 1.0-5.5 #) [facility] HospitalCbosdnrPIGPFBZRVB0720-48-05 15:38:00 Test Item Value Reference Range Interpretation Comments Monocytes # (test code 0.6 See_Comment [Aut omated message] The = Monocytes #) system which generated this result tra nsmitted reference range : <=0.8. The reference r maxine was not used to int erpret this result as normal/abnormal . [facility]icsMrrubxfCUYURBADVN2973-31-23 15:38:00 Test Item Value Reference Range Interpretation Comments Coronavirus (COVID-19) Not Detected AMBREEN (test code = *NA*(08/12/22 10:38 Coronavirus (COVID-19) AM) AMBREEN) [facility]2022-10-07 15:38:00 Test Item Value Reference Range Interpretation Comments Glucose Lvl (test code = Glucose Lvl) 99 70-99 [facility] VZWNF5937-27-43 15:38:00 Test Item Value Reference Range Interpretation Comments BUN (test code = BUN) 05-27 [facility] APYRX5454-62-70 15:38:00 Test Item Value Reference Range Interpretation Comments Creatinine Lvl (test code = Creatinine 0.99 0.50-1.40 Lvl) [place] 830132-10-07 15:38:00 Test Item Value Reference Range Interpretation Comments Sodium Lvl (test code = Sodium Lvl) 141 135-145 [place] 830132-10-07 15:38:00 Test Item Value Reference Range Interpretation Comments Potassium Lvl (test code = Potassium 4.1 3.5-5.1 Lvl) [place] 830132-10-07 15:38:00 Test Item Value Reference Range Interpretation Comments Chloride Lvl (test code = Chloride Lvl) 106 95-109 [place] 830132-10-07 15:38:00 Test Item Value Reference Range Interpretation Comments CO2 (test code = CO2) 27 24-32 [place] 830132-10-07 15:38:00 Test Item Value Reference Range Interpretation Comments Calcium Lvl (test code = Calcium Lvl) 9.2 8.5-10.5 [place] 830132-10-07 15:38:00 Test Item Value Reference Range Interpretation Comments AGAP (test code = AGAP) 12.1 10.0-20.0 [place] 830132-10-07 15:38:00 Test Item Value Reference Range Interpretation Comments eGFR (test code = eGFR) 84 [place] 349662-10-07 15:38:00 Test Item Value Reference Range Interpretation Comments WBC (test code = WBC) 6.8 3.7-10.4 [place] [address]-10-07 15:38:00 Test Item Value Reference Range Interpretation Comments RBC (test code = RBC) 4.39 4.70-6.10 [place] [address]-10-07 15:38:00 Test Item Value Reference Range Interpretation Comments Hgb (test code = Hgb) 13.7 14.0-18.0 [place] [address]-10-07 15:38:00 Test Item Value Reference Range Interpretation Comments Hct (test code = Hct) 42.1 42.0-54.0 [place] [address]-10-07 15:38:00 Test Item Value Reference Range Interpretation Comments MCV (test code = MCV) 96.0 80.0-94.0 [place] [address]-10-07 15:38:00 Test Item Value Reference Range Interpretation Comments MCH (test code = MCH) 31.2 pg 27.0-31.0 [facility] HospitalTtrwgigBZUODPSCXF9117-01-61 15:38:00 Test Item Value Reference Range Interpretation Comments MCHC (test code = MCHC) 32.5 32.0-36.0 [facility] HospitalExiyaorGGHXXYUJNA5140-09-22 15:38:00 Test Item Value Reference Range Interpretation Comments RDW (test code = RDW) 13.7 11.5-14.5 [facility] HospitalCwccfggLSBKLYJKQJ2472-73-35 15:38:00 Test Item Value Reference Range Interpretation Comments Platelet (test code = Platelet) 167 133-450 [facility] HospitalUavtvbnIWQWGYBTNZ2444-37-27 15:38:00 Test Item Value Reference Range Interpretation Comments MPV (test code = MPV) 10.4 7.4-10.4 [facility] HospitalArvdcgtULMWLZXWIC1964-01-51 15:38:00 Test Item Value Reference Range Interpretation Comments Segs (test code = Segs) 64.6 45.0-75.0 [facility] HospitalHlkpruqHBGPAUJLWI6737-34-95 15:38:00 Test Item Value Reference Range Interpretation Comments Lymphocytes (test code = Lymphocytes) 25.6 20.0-40.0 [facility] HospitalEgvtkpyPGRZOIMVLL0299-30-92 15:38:00 Test Item Value Reference Range Interpretation Comments Monocytes (test code = Monocytes) 8.5 2.0-12.0 [facility] HospitalRlhllbdJKTJGKXUJE0527-68-71 15:38:00 Test Item Value Reference Range Interpretation Comments Eosinophils (test code = 0.7 See_Comment [A utomated message] The Eosinophils) system which ge nerated this result tra nsmitted reference range : <=4.0. The reference r maxine was not used to int erpret this result as normal/abnormal . [facility] HospitalJjojpihVKTKOKSLZI7483-34-22 15:38:00 Test Item Value Reference Range Interpretation Comments Basophils (test code = 0.6 See_Comment [Aut omated message] The Basophils) system which ge nerated this result tra nsmitted reference range : <=1.0. The reference r maxine was not used to int erpret this result as normal/abnormal . [facility] HospitalGgbcunzQCBLWOCJBU9704-22-94 15:38:00 Test Item Value Reference Range Interpretation Comments Neutrophils # (test code = Neutrophils 4.4 1.5-8.1 #) [facility] HospitalMjgtyylEODUPXXORH1555-24-46 15:38:00 Test Item Value Reference Range Interpretation Comments Lymphocytes # (test code = Lymphocytes 1.7 1.0-5.5 #) [facility] HospitalIdbjpmuIJEPCBDPOH7203-94-87 15:38:00 Test Item Value Reference Range Interpretation Comments Monocytes # (test code 0.6 See_Comment [Aut omated message] The = Monocytes #) system which generated this result tra nsmitted reference range : <=0.8. The reference r maxine was not used to int erpret this result as normal/abnormal . [facility]icsNunzjceKMKXLYAPMC0883-34-70 15:38:00 Test Item Value Reference Range Interpretation Comments Coronavirus (COVID-19) Not Detected AMBREEN (test code = *NA*(08/12/22 10:38 Coronavirus (COVID-19) AM) AMBREEN) [facility]2022-10-07 15:38:00 Test Item Value Reference Range Interpretation Comments Glucose Lvl (test code = Glucose Lvl) 99 70-99 [facility]2022-10-07 15:38:00 Test Item Value Reference Range Interpretation Comments BUN (test code = BUN) 13 - [facility]2022-10-07 15:38:00 Test Item Value Reference Range Interpretation Comments Creatinine Lvl (test code = Creatinine 0.99 0.50-1.40 Lvl) [facility]2022-10-07 15:38:00 Test Item Value Reference Range Interpretation Comments Sodium Lvl (test code = Sodium Lvl) 141 135-145 [facility]2022-10-07 15:38:00 Test Item Value Reference Range Interpretation Comments Potassium Lvl (test code = Potassium 4.1 3.5-5.1 Lvl) [facility]2022-10-07 15:38:00 Test Item Value Reference Range Interpretation Comments Chloride Lvl (test code = Chloride Lvl) 106 95-109 [facility]2022-10-07 15:38:00 Test Item Value Reference Range Interpretation Comments CO2 (test code = CO2) 27 24-32 [facility]2022-10-07 15:38:00 Test Item Value Reference Range Interpretation Comments Calcium Lvl (test code = Calcium Lvl) 9.2 8.5-10.5 [place] 830132-10-07 15:38:00 Test Item Value Reference Range Interpretation Comments AGAP (test code = AGAP) 12.1 10.0-20.0 [facility] SJRML6068-13-46 15:38:00 Test Item Value Reference Range Interpretation Comments eGFR (test code = eGFR) 84 [facility] HospitalJhhuoopXYDXDVGOAF0438-50-99 15:38:00 Test Item Value Reference Range Interpretation Comments WBC (test code = WBC) 6.8 3.7-10.4 [facility] HospitalKsfpbdbAMMFLEWWAO8555-88-98 15:38:00 Test Item Value Reference Range Interpretation Comments RBC (test code = RBC) 4.39 4.70-6.10 [facility] HospitalMoythtcHTVZBYQNUA5967-63-51 15:38:00 Test Item Value Reference Range Interpretation Comments Hgb (test code = Hgb) 13.7 14.0-18.0 [facility] HospitalQnxqkwtKLUGWXNPYF8051-11-55 15:38:00 Test Item Value Reference Range Interpretation Comments Hct (test code = Hct) 42.1 42.0-54.0 [facility] HospitalBdwpuoiZZHFRDCPTF3542-34-75 15:38:00 Test Item Value Reference Range Interpretation Comments MCV (test code = MCV) 96.0 80.0-94.0 [place] 349662-10-07 15:38:00 Test Item Value Reference Range Interpretation Comments MCH (test code = MCH) 31.2 pg 27.0-31.0 [facility] HospitalMajevsbANKKUELBYU8941-65-87 15:38:00 Test Item Value Reference Range Interpretation Comments MCHC (test code = MCHC) 32.5 32.0-36.0 [place] 349662-10-07 15:38:00 Test Item Value Reference Range Interpretation Comments RDW (test code = RDW) 13.7 11.5-14.5 [place] 349662-10-07 15:38:00 Test Item Value Reference Range Interpretation Comments Platelet (test code = Platelet) 167 133-450 [facility] HospitalCwynzhdIALFSIDQCZ9041-01-19 15:38:00 Test Item Value Reference Range Interpretation Comments MPV (test code = MPV) 10.4 7.4-10.4 [place] 349662-10-07 15:38:00 Test Item Value Reference Range Interpretation Comments Segs (test code = Segs) 64.6 45.0-75.0 [facility] HospitalSohpzaaXVEQGCKYAP2479-06-63 15:38:00 Test Item Value Reference Range Interpretation Comments Lymphocytes (test code = Lymphocytes) 25.6 20.0-40.0 [facility] HospitalGixjeeuOLEYRNHKVV9698-66-43 15:38:00 Test Item Value Reference Range Interpretation Comments Monocytes (test code = Monocytes) 8.5 2.0-12.0 [place] 349662-10-07 15:38:00 Test Item Value Reference Range Interpretation Comments Eosinophils (test code = 0.7 See_Comment [A utomated message] The Eosinophils) system which ge nerated this result tra nsmitted reference range : <=4.0. The reference r maxine was not used to int erpret this result as normal/abnormal . [facility] HospitalOsswgdlPLBFVXFRKX7417-58-69 15:38:00 Test Item Value Reference Range Interpretation Comments Basophils (test code = 0.6 See_Comment [Aut omated message] The Basophils) system which ge nerated this result tra nsmitted reference range : <=1.0. The reference r maxine was not used to int erpret this result as normal/abnormal . [facility] HospitalAtsrpdmJINKZIDDSM7914-80-45 15:38:00 Test Item Value Reference Range Interpretation Comments Neutrophils # (test code = Neutrophils 4.4 1.5-8.1 #) [facility] HospitalGupomzaZMPSNWANCN9580-41-54 15:38:00 Test Item Value Reference Range Interpretation Comments Lymphocytes # (test code = Lymphocytes 1.7 1.0-5.5 #) [place] 349662-10-07 15:38:00 Test Item Value Reference Range Interpretation Comments Monocytes # (test code 0.6 See_Comment [Aut omated message] The = Monocytes #) system which generated this result tra nsmitted reference range : <=0.8. The reference r maxine was not used to int erpret this result as normal/abnormal . [facility]icsIdbwlwoXMPBVTLDEQ5226-14-65 15:38:00 Test Item Value Reference Range Interpretation Comments Coronavirus (COVID-19) Not Detected AMBREEN (test code = *NA*(08/12/22 10:38 Coronavirus (COVID-19) AM) AMBREEN) [facility]2022-10-07 15:38:00 Test Item Value Reference Range Interpretation Comments Glucose Lvl (test code = Glucose Lvl) 99 70-99 [place] 830132-10-07 15:38:00 Test Item Value Reference Range Interpretation Comments BUN (test code = BUN) 13 7-22 [place] 830132-10-07 15:38:00 Test Item Value Reference Range Interpretation Comments Creatinine Lvl (test code = Creatinine 0.99 0.50-1.40 Lvl) [place] 830132-10-07 15:38:00 Test Item Value Reference Range Interpretation Comments Sodium Lvl (test code = Sodium Lvl) 141 135-145 [place] 830132-10-07 15:38:00 Test Item Value Reference Range Interpretation Comments Potassium Lvl (test code = Potassium 4.1 3.5-5.1 Lvl) [place] 830132-10-07 15:38:00 Test Item Value Reference Range Interpretation Comments Chloride Lvl (test code = Chloride Lvl) 106 95-109 [place] 830132-10-07 15:38:00 Test Item Value Reference Range Interpretation Comments CO2 (test code = CO2) 27 24-32 [place] 830132-10-07 15:38:00 Test Item Value Reference Range Interpretation Comments Calcium Lvl (test code = Calcium Lvl) 9.2 8.5-10.5 [facility]2022-10-07 15:38:00 Test Item Value Reference Range Interpretation Comments AGAP (test code = AGAP) 12.1 10.0-20.0 [place] 830132-10-07 15:38:00 Test Item Value Reference Range Interpretation Comments eGFR (test code = eGFR) 84 [place] [address]-10-07 15:38:00 Test Item Value Reference Range Interpretation Comments WBC (test code = WBC) 6.8 3.7-10.4 [place] 349662-10-07 15:38:00 Test Item Value Reference Range Interpretation Comments RBC (test code = RBC) 4.39 4.70-6.10 [place] 349662-10-07 15:38:00 Test Item Value Reference Range Interpretation Comments Hgb (test code = Hgb) 13.7 14.0-18.0 [address]10-07 15:38:00 Test Item Value Reference Range Interpretation Comments Hct (test code = Hct) 42.1 42.0-54.0 [place] 349662-10-07 15:38:00 Test Item Value Reference Range Interpretation Comments MCV (test code = MCV) 96.0 80.0-94.0 [place] 349662-10-07 15:38:00 Test Item Value Reference Range Interpretation Comments MCH (test code = MCH) 31.2 pg 27.0-31.0 [place] 349662-10-07 15:38:00 Test Item Value Reference Range Interpretation Comments MCHC (test code = MCHC) 32.5 32.0-36.0 [facility] HospitalElsavlsLPJVQYAAMJ7283-79-50 15:38:00 Test Item Value Reference Range Interpretation Comments RDW (test code = RDW) 13.7 11.5-14.5 [place] 349662-10-07 15:38:00 Test Item Value Reference Range Interpretation Comments Platelet (test code = Platelet) 167 133-450 [facility] HospitalVeqxtbwPSHYKLRTND3267-17-41 15:38:00 Test Item Value Reference Range Interpretation Comments MPV (test code = MPV) 10.4 7.4-10.4 [facility] HospitalGkmifvfYBPYXEUWIC8472-23-82 15:38:00 Test Item Value Reference Range Interpretation Comments Segs (test code = Segs) 64.6 45.0-75.0 [facility] HospitalDajdbvwNATHEIHDMT6709-84-07 15:38:00 Test Item Value Reference Range Interpretation Comments Lymphocytes (test code = Lymphocytes) 25.6 20.0-40.0 [place] 349662-10-07 15:38:00 Test Item Value Reference Range Interpretation Comments Monocytes (test code = Monocytes) 8.5 2.0-12.0 [place] [address]-10-07 15:38:00 Test Item Value Reference Range Interpretation Comments Eosinophils (test code = 0.7 See_Comment [A utomated message] The Eosinophils) system which ge nerated this result tra nsmitted reference range : <=4.0. The reference r maxine was not used to int erpret this result as normal/abnormal . [facility] HospitalUdrdxjmVWTKJCSYQE9534-07-92 15:38:00 Test Item Value Reference Range Interpretation Comments Basophils (test code = 0.6 See_Comment [Aut omated message] The Basophils) system which ge nerated this result tra nsmitted reference range : <=1.0. The reference r maxine was not used to int erpret this result as normal/abnormal . [facility] HospitalTmobgzmIFLMJEMXAJ7457-12-04 15:38:00 Test Item Value Reference Range Interpretation Comments Neutrophils # (test code = Neutrophils 4.4 1.5-8.1 #) [facility] HospitalLrissgrBJDLNOXKUJ4964-90-34 15:38:00 Test Item Value Reference Range Interpretation Comments Lymphocytes # (test code = Lymphocytes 1.7 1.0-5.5 #) [facility] HospitalRqrzzyxSPXUBOSQIN3979-06-91 15:38:00 Test Item Value Reference Range Interpretation Comments Monocytes # (test code 0.6 See_Comment [Aut omated message] The = Monocytes #) system which generated this result tra nsmitted reference range : <=0.8. The reference r maxine was not used to int erpret this result as normal/abnormal . [facility]icsJkngznwVKDLCOESQP5773-35-80 15:38:00 Test Item Value Reference Range Interpretation Comments Coronavirus (COVID-19) Not Detected AMBREEN (test code = *NA*(08/12/22 10:38 Coronavirus (COVID-19) AM) AMBREEN) [facility]2022-10-07 15:38:00 Test Item Value Reference Range Interpretation Comments Glucose Lvl (test code = Glucose Lvl) 99 70-99 [facility]2022-10-07 15:38:00 Test Item Value Reference Range Interpretation Comments BUN (test code = BUN) 13 [facility] [id number] 15:38:00 Test Item Value Reference Range Interpretation Comments Creatinine Lvl (test code = Creatinine 0.99 0.50-1.40 Lvl) [facility]2022-10-07 15:38:00 Test Item Value Reference Range Interpretation Comments Sodium Lvl (test code = Sodium Lvl) 141 135-145 [facility]2022-10-07 15:38:00 Test Item Value Reference Range Interpretation Comments Potassium Lvl (test code = Potassium 4.1 3.5-5.1 Lvl) [facility]2022-10-07 15:38:00 Test Item Value Reference Range Interpretation Comments Chloride Lvl (test code = Chloride Lvl) 106 95-109 [place] 830132-10-07 15:38:00 Test Item Value Reference Range Interpretation Comments CO2 (test code = CO2) 27 24-32 [place] 830132-10-07 15:38:00 Test Item Value Reference Range Interpretation Comments Calcium Lvl (test code = Calcium Lvl) 9.2 8.5-10.5 [place] 830132-10-07 15:38:00 Test Item Value Reference Range Interpretation Comments AGAP (test code = AGAP) 12.1 10.0-20.0 [place] 830132-10-07 15:38:00 Test Item Value Reference Range Interpretation Comments eGFR (test code = eGFR) 84 [place] 349662-10-07 15:38:00 Test Item Value Reference Range Interpretation Comments WBC (test code = WBC) 6.8 3.7-10.4 [place] 349662-10-07 15:38:00 Test Item Value Reference Range Interpretation Comments RBC (test code = RBC) 4.39 4.70-6.10 [place] [address]-10-07 15:38:00 Test Item Value Reference Range Interpretation Comments Hgb (test code = Hgb) 13.7 14.0-18.0 [place] [address]-10-07 15:38:00 Test Item Value Reference Range Interpretation Comments Hct (test code = Hct) 42.1 42.0-54.0 [place] [address]-10-07 15:38:00 Test Item Value Reference Range Interpretation Comments MCV (test code = MCV) 96.0 80.0-94.0 [place] [address]-10-07 15:38:00 Test Item Value Reference Range Interpretation Comments MCH (test code = MCH) 31.2 pg 27.0-31.0 [place] [address]-10-07 15:38:00 Test Item Value Reference Range Interpretation Comments MCHC (test code = MCHC) 32.5 32.0-36.0 [place] [address]-10-07 15:38:00 Test Item Value Reference Range Interpretation Comments RDW (test code = RDW) 13.7 11.5-14.5 [place] 349662-10-07 15:38:00 Test Item Value Reference Range Interpretation Comments Platelet (test code = Platelet) 167 133-450 [place] 349662-10-07 15:38:00 Test Item Value Reference Range Interpretation Comments MPV (test code = MPV) 10.4 7.4-10.4 [place] 349662-10-07 15:38:00 Test Item Value Reference Range Interpretation Comments Segs (test code = Segs) 64.6 45.0-75.0 [place] 349662-10-07 15:38:00 Test Item Value Reference Range Interpretation Comments Lymphocytes (test code = Lymphocytes) 25.6 20.0-40.0 [place] [address]-10-07 15:38:00 Test Item Value Reference Range Interpretation Comments Monocytes (test code = Monocytes) 8.5 2.0-12.0 [place] 349662-10-07 15:38:00 Test Item Value Reference Range Interpretation Comments Eosinophils (test code = 0.7 See_Comment [A utomated message] The Eosinophils) system which ge nerated this result tra nsmitted reference range : <=4.0. The reference r maxine was not used to int erpret this result as normal/abnormal . [facility] HospitalHkrzbvpEIOLGXDCBH1931-25-85 15:38:00 Test Item Value Reference Range Interpretation Comments Basophils (test code = 0.6 See_Comment [Aut omated message] The Basophils) system which ge nerated this result tra nsmitted reference range : <=1.0. The reference r maxine was not used to int erpret this result as normal/abnormal . [facility] HospitalYxcrrmoSATAWMCZSZ1574-40-90 15:38:00 Test Item Value Reference Range Interpretation Comments Neutrophils # (test code = Neutrophils 4.4 1.5-8.1 #) [place] [address]-10-07 15:38:00 Test Item Value Reference Range Interpretation Comments Lymphocytes # (test code = Lymphocytes 1.7 1.0-5.5 #) [place] [address]-10-07 15:38:00 Test Item Value Reference Range Interpretation Comments Monocytes # (test code 0.6 See_Comment [Aut omated message] The = Monocytes #) system which generated this result tra nsmitted reference range : <=0.8. The reference r maxine was not used to int erpret this result as normal/abnormal . [facility]icsVzvjednZPCGZSMGQN4382-62-64 15:38:00 Test Item Value Reference Range Interpretation Comments Coronavirus (COVID-19) Not Detected AMBREEN (test code = *NA*(08/12/22 10:38 Coronavirus (COVID-19) AM) AMBREEN) [facility]2022-10-07 15:38:00 Test Item Value Reference Range Interpretation Comments Glucose Lvl (test code = Glucose Lvl) 99 70-99 [facility]2022-10-07 15:38:00 Test Item Value Reference Range Interpretation Comments BUN (test code = BUN) 13 - [facility]2022-10-07 15:38:00 Test Item Value Reference Range Interpretation Comments Creatinine Lvl (test code = Creatinine 0.99 0.50-1.40 Lvl) [facility]2022-10-07 15:38:00 Test Item Value Reference Range Interpretation Comments Sodium Lvl (test code = Sodium Lvl) 141 135-145 [facility]2022-10-07 15:38:00 Test Item Value Reference Range Interpretation Comments Potassium Lvl (test code = Potassium 4.1 3.5-5.1 Lvl) [facility]2022-10-07 15:38:00 Test Item Value Reference Range Interpretation Comments Chloride Lvl (test code = Chloride Lvl) 106 95-109 [facility]2022-10-07 15:38:00 Test Item Value Reference Range Interpretation Comments CO2 (test code = CO2) 27 24-32 [facility]2022-10-07 15:38:00 Test Item Value Reference Range Interpretation Comments Calcium Lvl (test code = Calcium Lvl) 9.2 8.5-10.5 [facility]2022-10-07 15:38:00 Test Item Value Reference Range Interpretation Comments AGAP (test code = AGAP) 12.1 10.0-20.0 [facility]2022-10-07 15:38:00 Test Item Value Reference Range Interpretation Comments eGFR (test code = eGFR) 84 [facility]euvhzsVFLAIKMBAC1516-64-46 15:38:00 Test Item Value Reference Range Interpretation Comments WBC (test code = WBC) 6.8 3.7-10.4 [facility] HospitalThjbapuJVCEMIRRQY1022-10-04 15:38:00 Test Item Value Reference Range Interpretation Comments RBC (test code = RBC) 4.39 4.70-6.10 [facility] HospitalWriqvvmDCQTUWIOLZ1783-41-75 15:38:00 Test Item Value Reference Range Interpretation Comments Hgb (test code = Hgb) 13.7 14.0-18.0 [place] 349662-10-07 15:38:00 Test Item Value Reference Range Interpretation Comments Hct (test code = Hct) 42.1 42.0-54.0 [facility] HospitalHctammtWGBTAZSZIF9283-06-44 15:38:00 Test Item Value Reference Range Interpretation Comments MCV (test code = MCV) 96.0 80.0-94.0 [facility] HospitalWwowvtiHNRXEGWRYF3435-07-08 15:38:00 Test Item Value Reference Range Interpretation Comments MCH (test code = MCH) 31.2 pg 27.0-31.0 [place] [address]-10-07 15:38:00 Test Item Value Reference Range Interpretation Comments MCHC (test code = MCHC) 32.5 32.0-36.0 [facility] HospitalRmpulogVNQYAYCAUN7331-63-87 15:38:00 Test Item Value Reference Range Interpretation Comments RDW (test code = RDW) 13.7 11.5-14.5 [facility] HospitalXpwvpfbUOGSDXFADG3036-00-19 15:38:00 Test Item Value Reference Range Interpretation Comments Platelet (test code = Platelet) 167 133-450 [facility] HospitalDjlqileKLJRVDJXCV5538-26-79 15:38:00 Test Item Value Reference Range Interpretation Comments MPV (test code = MPV) 10.4 7.4-10.4 [place] [address]-10-07 15:38:00 Test Item Value Reference Range Interpretation Comments Segs (test code = Segs) 64.6 45.0-75.0 [place] [address]-10-07 15:38:00 Test Item Value Reference Range Interpretation Comments Lymphocytes (test code = Lymphocytes) 25.6 20.0-40.0 [place] [address]-10-07 15:38:00 Test Item Value Reference Range Interpretation Comments Monocytes (test code = Monocytes) 8.5 2.0-12.0 [place] 349662-10-07 15:38:00 Test Item Value Reference Range Interpretation Comments Eosinophils (test code = 0.7 See_Comment [A utomated message] The Eosinophils) system which ge nerated this result tra nsmitted reference range : <=4.0. The reference r maxine was not used to int erpret this result as normal/abnormal . [facility] HospitalCedpkxmVONSSCKZVS1138-90-25 15:38:00 Test Item Value Reference Range Interpretation Comments Basophils (test code = 0.6 See_Comment [Aut omated message] The Basophils) system which ge nerated this result tra nsmitted reference range : <=1.0. The reference r maxine was not used to int erpret this result as normal/abnormal . [facility] HospitalOvrjqiqQPAFQSSVHT8086-16-79 15:38:00 Test Item Value Reference Range Interpretation Comments Neutrophils # (test code = Neutrophils 4.4 1.5-8.1 #) [place] 349662-10-07 15:38:00 Test Item Value Reference Range Interpretation Comments Lymphocytes # (test code = Lymphocytes 1.7 1.0-5.5 #) [facility] HospitalTptcfuqVDTBUIJNDC2001-72-60 15:38:00 Test Item Value Reference Range Interpretation Comments Monocytes # (test code 0.6 See_Comment [Aut omated message] The = Monocytes #) system which generated this result tra nsmitted reference range : <=0.8. The reference r maxine was not used to int erpret this result as normal/abnormal . [facility]icsZawajxiQDBGDIXPQE7865-49-63 15:38:00 Test Item Value Reference Range Interpretation Comments Coronavirus (COVID-19) Not Detected AMBREEN (test code = *NA*(08/12/22 10:38 Coronavirus (COVID-19) AM) AMBREEN) [facility]2022-10-07 15:38:00 Test Item Value Reference Range Interpretation Comments Glucose Lvl (test code = Glucose Lvl) 99 70-99 [facility]2022-10-07 15:38:00 Test Item Value Reference Range Interpretation Comments BUN (test code = BUN) 13 05-27 [facility] [id number] 15:38:00 Test Item Value Reference Range Interpretation Comments Creatinine Lvl (test code = Creatinine 0.99 0.50-1.40 Lvl) [facility]2022-10-07 15:38:00 Test Item Value Reference Range Interpretation Comments Sodium Lvl (test code = Sodium Lvl) 141 135-145 [place] 830132-10-07 15:38:00 Test Item Value Reference Range Interpretation Comments Potassium Lvl (test code = Potassium 4.1 3.5-5.1 Lvl) [place] 830132-10-07 15:38:00 Test Item Value Reference Range Interpretation Comments Chloride Lvl (test code = Chloride Lvl) 106 95-109 [place] 830132-10-07 15:38:00 Test Item Value Reference Range Interpretation Comments CO2 (test code = CO2) 27 24-32 [place] 830132-10-07 15:38:00 Test Item Value Reference Range Interpretation Comments Calcium Lvl (test code = Calcium Lvl) 9.2 8.5-10.5 [place] 830132-10-07 15:38:00 Test Item Value Reference Range Interpretation Comments AGAP (test code = AGAP) 12.1 10.0-20.0 [place] 830132-10-07 15:38:00 Test Item Value Reference Range Interpretation Comments eGFR (test code = eGFR) 84 [facility] HospitalGbwovckUVAGSDCRGJ8511-53-19 15:38:00 Test Item Value Reference Range Interpretation Comments WBC (test code = WBC) 6.8 3.7-10.4 [place] [address]-10-07 15:38:00 Test Item Value Reference Range Interpretation Comments RBC (test code = RBC) 4.39 4.70-6.10 [place] 349662-10-07 15:38:00 Test Item Value Reference Range Interpretation Comments Hgb (test code = Hgb) 13.7 14.0-18.0 [place] [address]-10-07 15:38:00 Test Item Value Reference Range Interpretation Comments Hct (test code = Hct) 42.1 42.0-54.0 [place] [address]-10-07 15:38:00 Test Item Value Reference Range Interpretation Comments MCV (test code = MCV) 96.0 80.0-94.0 [place] [address]-10-07 15:38:00 Test Item Value Reference Range Interpretation Comments MCH (test code = MCH) 31.2 pg 27.0-31.0 [facility] HospitalUvfmdkbAVMJBQGRCE2414-05-48 15:38:00 Test Item Value Reference Range Interpretation Comments MCHC (test code = MCHC) 32.5 32.0-36.0 [place] 349662-10-07 15:38:00 Test Item Value Reference Range Interpretation Comments RDW (test code = RDW) 13.7 11.5-14.5 [facility] HospitalGusgtjgUOQKPKXSXT6859-36-58 15:38:00 Test Item Value Reference Range Interpretation Comments Platelet (test code = Platelet) 167 133-450 [facility] HospitalKeuanscDFTUKVBTCS3164-57-73 15:38:00 Test Item Value Reference Range Interpretation Comments MPV (test code = MPV) 10.4 7.4-10.4 [facility] HospitalAojzjorAFKMVNVVAG4813-02-80 15:38:00 Test Item Value Reference Range Interpretation Comments Segs (test code = Segs) 64.6 45.0-75.0 [facility] HospitalJtlaaorDERDVMOZPD2450-02-70 15:38:00 Test Item Value Reference Range Interpretation Comments Lymphocytes (test code = Lymphocytes) 25.6 20.0-40.0 [place] 349662-10-07 15:38:00 Test Item Value Reference Range Interpretation Comments Monocytes (test code = Monocytes) 8.5 2.0-12.0 [facility] HospitalRqbzacqUFSXKVRDRV3735-12-98 15:38:00 Test Item Value Reference Range Interpretation Comments Eosinophils (test code = 0.7 See_Comment [A utomated message] The Eosinophils) system which ge nerated this result tra nsmitted reference range : <=4.0. The reference r maxine was not used to int erpret this result as normal/abnormal . [facility] HospitalIswfncuGFAMOEXJBD5855-64-66 15:38:00 Test Item Value Reference Range Interpretation Comments Basophils (test code = 0.6 See_Comment [Aut omated message] The Basophils) system which ge nerated this result tra nsmitted reference range : <=1.0. The reference r maxine was not used to int erpret this result as normal/abnormal . [place] 349662-10-07 15:38:00 Test Item Value Reference Range Interpretation Comments Neutrophils # (test code = Neutrophils 4.4 1.5-8.1 #) [facility] HospitalQocdxzjGGYLXHUVVP7445-28-12 15:38:00 Test Item Value Reference Range Interpretation Comments Lymphocytes # (test code = Lymphocytes 1.7 1.0-5.5 #) [facility] HospitalTswcdcySZPRHWIJXX6293-72-79 15:38:00 Test Item Value Reference Range Interpretation Comments Monocytes # (test code 0.6 See_Comment [Aut omated message] The = Monocytes #) system which generated this result tra nsmitted reference range : <=0.8. The reference r maxine was not used to int erpret this result as normal/abnormal . [facility]icsQzidofsGLWMMMGIIE3494-88-98 15:38:00 Test Item Value Reference Range Interpretation Comments Coronavirus (COVID-19) Not Detected AMBREEN (test code = *NA*(08/12/22 10:38 Coronavirus (COVID-19) AM) AMBREEN) [facility]2022-10-07 15:38:00 Test Item Value Reference Range Interpretation Comments Glucose Lvl (test code = Glucose Lvl) 99 70-99 [facility]2022-10-07 15:38:00 Test Item Value Reference Range Interpretation Comments BUN (test code = BUN) 13 7-22 [place] 830132-10-07 15:38:00 Test Item Value Reference Range Interpretation Comments Creatinine Lvl (test code = Creatinine 0.99 0.50-1.40 Lvl) [facility]2022-10-07 15:38:00 Test Item Value Reference Range Interpretation Comments Sodium Lvl (test code = Sodium Lvl) 141 135-145 [facility]2022-10-07 15:38:00 Test Item Value Reference Range Interpretation Comments Potassium Lvl (test code = Potassium 4.1 3.5-5.1 Lvl) [place] 830132-10-07 15:38:00 Test Item Value Reference Range Interpretation Comments Chloride Lvl (test code = Chloride Lvl) 106 95-109 [facility]2022-10-07 15:38:00 Test Item Value Reference Range Interpretation Comments CO2 (test code = CO2) 27 24-32 [place] 830132-10-07 15:38:00 Test Item Value Reference Range Interpretation Comments Calcium Lvl (test code = Calcium Lvl) 9.2 8.5-10.5 [facility]2022-10-07 15:38:00 Test Item Value Reference Range Interpretation Comments AGAP (test code = AGAP) 12.1 10.0-20.0 [facility]2022-10-07 15:38:00 Test Item Value Reference Range Interpretation Comments eGFR (test code = eGFR) 84 [facility] HospitalXweuntyFPORZEXYZK0183-94-28 15:38:00 Test Item Value Reference Range Interpretation Comments WBC (test code = WBC) 6.8 3.7-10.4 [facility] HospitalKfvlxnoEZAYABSBKN2533-90-85 15:38:00 Test Item Value Reference Range Interpretation Comments RBC (test code = RBC) 4.39 4.70-6.10 [place] 830132-08-19 16:04:00 Test Item Value Reference Range Interpretation Comments POC Creatinine (test code = POC 1.0 0.5-1.4 Creatinine) [facility]2022-08-19 16:04:00 Test Item Value Reference Range Interpretation Comments eGFR (test code = eGFR) 84 [facility]2022-08-19 16:04:00 Test Item Value Reference Range Interpretation Comments POC Creatinine (test code = POC 1.0 0.5-1.4 Creatinine) [facility]2022-08-19 16:04:00 Test Item Value Reference Range Interpretation Comments eGFR (test code = eGFR) 84 [place] 830132-08-19 16:04:00 Test Item Value Reference Range Interpretation Comments POC Creatinine (test code = POC 1.0 0.5-1.4 Creatinine) [facility]2022-08-19 16:04:00 Test Item Value Reference Range Interpretation Comments eGFR (test code = eGFR) 84 [place] 830132-08-19 16:04:00 Test Item Value Reference Range Interpretation Comments POC Creatinine (test code = POC 1.0 0.5-1.4 Creatinine) [facility]2022-08-19 16:04:00 Test Item Value Reference Range Interpretation Comments eGFR (test code = eGFR) 84 [place] 830132-08-19 16:04:00 Test Item Value Reference Range Interpretation Comments POC Creatinine (test code = POC 1.0 0.5-1.4 Creatinine) [place] 830132-08-19 16:04:00 Test Item Value Reference Range Interpretation Comments eGFR (test code = eGFR) 84 [place] 830132-08-19 16:04:00 Test Item Value Reference Range Interpretation Comments POC Creatinine (test code = POC 1.0 0.5-1.4 Creatinine) [place] 830132-08-19 16:04:00 Test Item Value Reference Range Interpretation Comments eGFR (test code = eGFR) 84 [place] 830132-08-19 16:04:00 Test Item Value Reference Range Interpretation Comments POC Creatinine (test code = POC 1.0 0.5-1.4 Creatinine) [facility]2022-08-19 16:04:00 Test Item Value Reference Range Interpretation Comments eGFR (test code = eGFR) 84 [facility]2022-08-19 16:04:00 Test Item Value Reference Range Interpretation Comments POC Creatinine (test code = POC 1.0 0.5-1.4 Creatinine) [facility]2022-08-19 16:04:00 Test Item Value Reference Range Interpretation Comments eGFR (test code = eGFR) 84 [place] 830132-08-19 16:04:00 Test Item Value Reference Range Interpretation Comments POC Creatinine (test code = POC 1.0 0.5-1.4 Creatinine) [facility]2022-08-19 16:04:00 Test Item Value Reference Range Interpretation Comments eGFR (test code = eGFR) 84 [place] 830132-08-19 16:04:00 Test Item Value Reference Range Interpretation Comments POC Creatinine (test code = POC 1.0 0.5-1.4 Creatinine) [facility]2022-08-19 16:04:00 Test Item Value Reference Range Interpretation Comments eGFR (test code = eGFR) 84 [place] 830132-08-19 16:04:00 Test Item Value Reference Range Interpretation Comments POC Creatinine (test code = POC 1.0 0.5-1.4 Creatinine) [facility]2022-08-19 16:04:00 Test Item Value Reference Range Interpretation Comments eGFR (test code = eGFR) 84 [place] 830132-08-19 16:04:00 Test Item Value Reference Range Interpretation Comments POC Creatinine (test code = POC 1.0 0.5-1.4 Creatinine) [facility]2022-08-19 16:04:00 Test Item Value Reference Range Interpretation Comments eGFR (test code = eGFR) 84 [place] 830132-08-19 16:04:00 Test Item Value Reference Range Interpretation Comments POC Creatinine (test code = POC 1.0 0.5-1.4 Creatinine) [facility]2022-08-19 16:04:00 Test Item Value Reference Range Interpretation Comments eGFR (test code = eGFR) 84 [facility]2022-08-19 16:04:00 Test Item Value Reference Range Interpretation Comments POC Creatinine (test code = POC 1.0 0.5-1.4 Creatinine) [facility]2022-08-19 16:04:00 Test Item Value Reference Range Interpretation Comments eGFR (test code = eGFR) 84 [place] 830132-08-19 16:04:00 Test Item Value Reference Range Interpretation Comments POC Creatinine (test code = POC 1.0 0.5-1.4 Creatinine) [facility]2022-08-19 16:04:00 Test Item Value Reference Range Interpretation Comments eGFR (test code = eGFR) 84 [facility]2022-08-19 16:04:00 Test Item Value Reference Range Interpretation Comments POC Creatinine (test code = POC 1.0 0.5-1.4 Creatinine) [facility]2022-08-19 16:04:00 Test Item Value Reference Range Interpretation Comments eGFR (test code = eGFR) 84 [facility]2022-08-19 16:04:00 Test Item Value Reference Range Interpretation Comments POC Creatinine (test code = POC 1.0 0.5-1.4 Creatinine) [facility]2022-08-19 16:04:00 Test Item Value Reference Range Interpretation Comments eGFR (test code = eGFR) 84 [place] 830132-08-19 16:04:00 Test Item Value Reference Range Interpretation Comments POC Creatinine (test code = POC 1.0 0.5-1.4 Creatinine) [place] 830132-08-19 16:04:00 Test Item Value Reference Range Interpretation Comments eGFR (test code = eGFR) 84 [place] 830132-08-19 16:04:00 Test Item Value Reference Range Interpretation Comments POC Creatinine (test code = POC 1.0 0.5-1.4 Creatinine) [facility] [id number] 16:04:00 Test Item Value Reference Range Interpretation Comments eGFR (test code = eGFR) 84 [facility] AUMAM8888-10-19 16:04:00 Test Item Value Reference Range Interpretation Comments POC Creatinine (test code = POC 1.0 0.5-1.4 Creatinine) [facility] [id number] 16:04:00 Test Item Value Reference Range Interpretation Comments eGFR (test code = eGFR) 84 [facility] [id number] 16:04:00 Test Item Value Reference Range Interpretation Comments POC Creatinine (test code = POC 1.0 0.5-1.4 Creatinine) [facility]Surv[facility] [id number] 16:04:00 Test Item Value Reference Range Interpretation Comments eGFR (test code = eGFR) 84 [facility], CTA AAA, W/ DARRIUS.EXT.BNTNTN9017-63-13 17:50:00 [facility] CENTERName: KERON MORENO FERMIN : 1955 Sex: MAddendum BeginsREPORT STATUS:A I have reviewed the CT images for this study and I concur with the nonvascular imaging findings as dictated. Signed: Irvin Shin Verified Date/Time: 09/16/2021 17:50:50 Reading Location: [facility] Diagnostic Imaging Reading Room - [facility] 1.310.12Addendum EndsFINAL REPORT CT angiography [...] the setting of substantial calcification in the tunica-biloxi vasculature. The 2 stents are widely patent withno in-stent stenosis identified bilaterally. Thereafter, the [place]-bil[place] distal left and right external il iac [...] An addendum will be dictated by the Events Administrative Assistant Radiologist regarding the nonvascular findings. THE REPORT WILL ONLY BE CONSIDERED COMPLETE AFTER THE ADDENDUM HAS BEEN DICTATED. Signed: Placido [place] Verified Date/Time: 09/11/2021 09:17:52 V-Qycrqoueky1255-21-08 09:51:07 Test Item Value Reference Range Interpretation Comments POC-Creatinine (test 0.6 mg/dL 0.6-1.3 : TESTE D AT [facility] 6720 code = 1859) [facility], [address]: Computerized Mill Recorder/Techni jolanta ID = [id number] for Paul Cannon POC-EGFR (test code 135 mL/min/1.73M2 = 1860) [facility]-[id number] 09:51:07 Test Item Value Reference Range Interpretation Comments POC-Creatinine (test 0.6 mg/dL 0.6-1.3 : TESTE D AT [facility] 6720 code = 1859) [facility], [address]: Computerized Mill Recorder/Techni jolanta ID = [id number] for Paul Cannon POC-EGFR (test code 135 mL/min/1.73M2 = 1860) [facility]9905[facility] 09:51:07 Test Item Value Reference Range Interpretation Comments POC-Creatinine (test 0.6 mg/dL 0.6-1.3 : TESTE D AT [facility] 6720 code = 1859) [place], [address]: Computerized Mill Recorder/Techni jolanta ID = [id number] for Paul Cannon POC-EGFR (test code 135 mL/min/1.73M2 = 1860) [facility] CenterLxwxtrPHUP-[id number] 09:51:07 Test Item Value Reference Range Interpretation Comments POC-CREATININE 0.6 mg/dL 0.6-1.3 : TESTED AT [facility] (BEAKER) (test 6720 [facility] code = 1859) [place], [address]: Computerized Mill Recorder/Techni jolanta ID = [id number] for Paul Cannon POC-EGFR (BEAKER) 135 mL/min/1.73M2 (test code = 1860) RAD, CHEST, 1 VIEW, NON [id number] 07:11:00Reason for exam:->ctShould this be performed at the bedside?->Yes [facility] 1955 Sex: MFINAL REPORT RAD, CHEST, 1 VIEW, NON DEPT INDICATION: ct COMPARISON: Prior day's exam FINDINGS: Portable frontal view of the chest. IMPRESSION: Support Lines: None Lungs and pleura: Scattered subsegmental atelectasis. No new consolidation. No pneumothorax.Heart and mediastinum: Stable contours. Additional findings: None. Signed: JR Tamera, Zoran GAYeport Verified Date/Time: 05/17/2021 07:11:01 [facility] C METABOLIC [id number] 06:35:00 Test Item Value Reference Range Interpretation [...] S NOT APPLICABLE FOR DIALYSIS PATIEN TS. Computerized Mill Recorder ID - TINY [id number] 06:35:00 Test Item Value Reference Range Interpretation Comments MAGNESIUM (BEAKER) (test code = 2.0 mg/dL 1.6-2.6 627) Computerized Mill Recorder ID - TINY [id number] 06:35:00 Test Item Value Reference Range Interpretation Comments PHOSPHORUS (BEAKER) (test code = 4.0 mg/dL 2.3-4.7 604) Computerized Mill Recorder ID - TINY WCBC W/PLT COUNT & AUTO [id number] 05:58:00 Test Item Value Reference Range Interpretation [...] (BEAKER) (test code = 2801) BASIC METABOLIC [id number] 08:28:00 Test Item Value Reference Range Interpretation [...] S NOT APPLICABLE FOR DIALYSIS PATIEN TS. Computerized Mill Recorder ID - JATINDER [id number] 08:28:00 Test Item Value Reference Range Interpretation Comments MAGNESIUM (BEAKER) (test code = 2.1 mg/dL 1.6-2.6 627) Computerized Mill Recorder ID - JATINDER [id number] 08:28:00 Test Item Value Reference Range Interpretation Comments PHOSPHORUS (BEAKER) (test code = 3.1 mg/dL 2.3-4.7 604) Computerized Mill Recorder ID - JATINDER WRAD, CHEST, 1 VIEW, NON [id number] 07:51:00Reason for exam:->ctShould this be performed at the bedside?->Yes [facility] 1955 Sex: MFINAL [...] Shinort Verified Date/Time: 05/16/2021 07:51:48 Reading Location: [address] Transitional Reading Room POCT-GLUCOSE [id number] 07:47:00 Test Item Value Reference Range Interpretation Comments POC-GLUCOSE METER 106 mg/dL 70-110 : TESTED A T [facility] 6720 (BEAKER) (test code = [place], 15[address]) [address]: Computerized Mill Recorder/Techni jolanta ID = [id number] for BRITNI LUU CBC W/PLT COUNT & AUTO [id number] 07:05:00 Test Item Value Reference Range Interpretation [...] PERCENT (BEAKER) (test code = 2801) CALCIUM, [id number] 07:04:00 Test Item Value Reference Range Interpretation Comments CALCIUM IONIZED (BEAKER) (test 1.17 mmol/L 1.12-1.27 code = 698) PH, BLOOD (BEAKER) (test code = 7.39 1810) POCT-GLUCOSE [id number] 21:25:00 Test Item Value Reference Range Interpretation Comments POC-GLUCOSE METER 131 mg/dL 70-110 H : TESTED A T [facility] 6720 (BEAKER) (test code = [facility], 1538) [address]: Computerized Mill Recorder/Techni jolanta ID = [id number] for Co rtez, Cristin POCT-GLUCOSE [id number] 17:55:00 Test Item Value Reference Range Interpretation Comments POC-GLUCOSE METER 106 mg/dL 70-110 : TESTED A T [facility] 6720 (BEAKER) (test code = [facility], 1538) [address]: Computerized Mill Recorder/Techni jolanta ID = [id number] for Kalen AGUSTIN POCT-GLUCOSE [id number] 12:51:00 Test Item Value Reference Range Interpretation Comments POC-GLUCOSE METER 116 mg/dL 70-110 H : TESTED A T [facility] 6720 (BEVentealapropriete) (test code = [place] [facility], 1538) [address]: Computerized Mill Recorder/Techni jolanta ID = [id number] for COLBY BARKER RAD, CHEST, 1 VIEW, NON [id number] 08:07:00Reason for exam:->ctShould this be performed at the bedside?->Yes [facility] 1955 Sex: MFINAL [...] Mooney Verified Date/Time: 05/15/2021 08:07:09 Reading Location: [address] Consult Reading Room POCT-GLUCOSE [id number] 08:00:00 Test Item Value Reference Range Interpretation Comments POC-GLUCOSE METER 120 mg/dL 70-110 H : TESTED A T [facility] 6720 (BEVentealapropriete) (test code = [place] [facility], 1538) [address]: Computerized Mill Recorder/Techni jolanta ID = [id number] for Po Lexus alcantara BASIC METABOLIC [id number] 06:15:00 Test Item Value Reference Range Interpretation [...] S NOT APPLICABLE FOR DIALYSIS PATIEN TS. Computerized Mill Recorder ID - [id number] 06:15:00 Test Item Value Reference Range Interpretation Comments MAGNESIUM (BEAKER) (test code = 2.0 mg/dL 1.6-2.6 627) Computerized Mill Recorder ID - [id number] 06:15:00 Test Item Value Reference Range Interpretation Comments PHOSPHORUS (BEAKER) (test code = 3.1 mg/dL 2.3-4.7 604) Computerized Mill Recorder ID - EDASICBC W/PLT COUNT & AUTO [id number] 05:47:00 Test Item Value Reference Range Interpretation [...] 0-1 PERCENT (BEAKER) (test code = 2801) [id number] 08:39:00 Test Item Value Reference Range Interpretation Comments MAGNESIUM (BEAKER) (test code = 1.9 mg/dL 1.6-2.6 627) Computerized Mill Recorder ID - ADMINRAD, CHEST, 1 VIEW, NON [id number] 07:57:00while patient is intubated or has chest tubes.Reason for exam:->Status post CV SurgeryShould thisbe performed at the bedside?->Yes [facility] 1955 Sex: MFINAL [...] change since 05/13/2021. Signed: Hailey Samaniegoeptrini Verified Date/Time:05/14/2021 07:57:54 Reading Location: [facility] Diagnostic Imaging Reading Room - [place] [address] [id number] 06:59:00 Test Item Value Reference Range Interpretation Comments MAGNESIUM (BEAKER) 5.3 mg/dL 1.6-2.6 HH Specimen slightly (test code = 627) hemolyzed Computerized Mill Recorder ID - PIAYA [id number] 06:38:00 Test Item Value Reference Range Interpretation Comments ACTIVATED CLOTTING TIME 109 sec : 74 -137 seconds, (BEAKER) (test code = Baseli ne: TESTED AT 441) [facility] 6720 [facility], [facility] 30: Computerized Mill Recorder/Techni jolanta ID = [id number] for CHAPIN KUHN [id number] 06:38:00 Test Item Value Reference Range Interpretation Comments ACTIVATED CLOTTING TIME 125 sec : 74 -137 seconds, (BEAKER) (test code = Baseli ne: TESTED AT 441) [address], [facility] 30: Computerized Mill Recorder/Techni jolanta ID = [id number] for CHAPIN KUHN [id number] 06:38:00 Test Item Value Reference Range Interpretation Comments ACTIVATED CLOTTING TIME 318 sec : 74 -137 seconds, (BEAKER) (test code = Baseli ne: TESTED AT 441) [address], [address]: Computerized Mill Recorder/Techni jolanta ID = [id number] for CHAPIN KUHN [id number] 06:38:00 Test Item Value Reference Range Interpretation Comments ACTIVATED CLOTTING TIME 290 sec : 74 -137 seconds, (BEAKER) (test code = Baseli ne: TESTED AT 441) [address], [address]: Computerized Mill Recorder/Techni jolanta ID = [id number] for CHAPIN KUHN [id number] 06:37:00 Test Item Value Reference Range Interpretation Comments ACTIVATED CLOTTING TIME 224 sec : 74 -137 seconds, (BEAKER) (test code = Baseli ne: TESTED AT 441) [address], [facility] 30: Computerized Mill Recorder/Techni jolanta ID = [id number] for CHAPIN KUHN [id number] 06:06:00 Test Item Value Reference Range Interpretation Comments PHOSPHORUS (BEAKER) 4.1 mg/dL 2.3-4.7 Specimen slightly (test code = 604) hemolyzed Computerized Mill Recorder ID - PIAYA LBASIC METABOLIC [id number] 06:06:00 Test Item Value Reference Range Interpretation [...] S NOT APPLICABLE FOR DIALYSIS PATIEN TS. Computerized Mill Recorder ID - PIAYA LCBC (HEMOGRAM ONLY)2021-05-14 05:17:00 [...] (BEAKER) (test code = 413) BLOOD GAS, [id number] 05:15:00 Test Item Value Reference Range Interpretation [...] (BEAKER) (test code = 1819) 36.0 GLUCOSE-STAT [id number] 05:15:00 Test Item Value Reference Range Interpretation Comments GLUCOSE RANDOM (BEAKER) (test code 137 mg/dL 70-110 H = 652) HGB/HCT (H&H) - STAT [id number] 05:15:00 Test Item Value Reference Range Interpretation Comments HEMOGLOBIN (BEAKER) (test code = 13.2 GM/DL 13.0-16.8 410) HEMATOCRIT (BEAKER) (test code = 39.0 % 40.0-50.0 L 411) CALCIUM, [id number] 05:15:00 Test Item Value Reference Range Interpretation Comments CALCIUM IONIZED (BEAKER) (test 1.17 mmol/L 1.12-1.27 code = 698) PH, BLOOD (BEAKER) (test code = 7.38 1810) SODIUM NA-STAT [id number] 05:13:00 Test Item Value Reference Range Interpretation Comments SODIUM (BEAKER) (test code = 381) 137 meq/L 136-145 POTASSIUM-STAT [id number] 05:13:00 Test Item Value Reference Range Interpretation Comments POTASSIUM (BEAKER) (test code = 4.0 meq/L 3.6-5.5 379) RAD, CHEST, 1 VIEW, NON [id number] 03:17:00Reason for exam:->Status post CV Surgery post op day 0Should this be performed at the bedside?->Yes [facility] 1955 Sex: MFINAL [...] MDReport Verified Date/Time: 05/14/2021 03:17:59 BASIC METABOLIC [id number] 19:57:00 Test Item Value Reference Range Interpretation [...] S NOT APPLICABLE FOR DIALYSIS PATIEN TS. Computerized Mill Recorder ID - [id number] 19:52:00 Test Item Value Reference Range Interpretation Comments MAGNESIUM (BEAKER) (test code = 2.1 mg/dL 1.6-2.6 627) Computerized Mill Recorder ID - [id number] 19:52:00 Test Item Value Reference Range Interpretation Comments PHOSPHORUS (BEAKER) (test code = 3.5 mg/dL 2.3-4.7 604) Computerized Mill Recorder ID - DBLACTIC ACID, [id number] 19:47:00 Test Item Value Reference Range Interpretation Comments LACTATE BLOOD ARTERIAL (2) 1.2 mmol/L 0.5-2.2 (BEAKER) (test code = 2874) Computerized Mill Recorder ID - [id number] 19:36:00 Test Item Value Reference Range Interpretation Comments FIBRINOGEN LEVEL (BEAKER) (test 311 mg/dl 225-434 code = 658) [id number] 19:36:00 Test Item Value Reference Range Interpretation Comments PARTIAL THROMBOPLASTIN TIME 27.4 seconds 22.5-36.0 (BEAKER) (test code = 760) PROTHROMBIN TIME/[id number] 19:35:00 Test Item Value Reference Range Interpretation Comments PROTIME (BEAKER) 14.8 seconds 11.9-14.2 H (test code = 759) INR (BEAKER) (test 1.18 See_Comment [Automat ed message] code = 370) The system M2 Connections generated this result transmitted ref erence range: <=5.90. The reference range was not used to int erpret this result as normal/abnormal . RECOMMENDED COUMADIN/WARFARIN INR THERAPY RANGESSTANDARD DOSE: 2.0 - 3.0 Includes: PROPHYLAXIS for venous thrombosis, systemic embolization; TREATMENT for venous thrombosis and/or pulmonary embolus.HIGH RISK: Target INR is 2.5-3.5 for patients with mechanical heart valves.CBC W/PLT COUNT & AUTO [id number] 19:26:00 Test Item Value Reference Range Interpretation [...] (BEAKER) (test code = 2801) BLOOD GAS, [id number] 19:15:00 Test Item Value Reference Range Interpretation [...] 36.4 (test code = 1818) BLOOD GAS, [id number] 18:36:00 Test Item Value Reference Range Interpretation [...] (BEAKER) (test code = 1819) 54.0 GLUCOSE-STAT [id number] 18:36:00 Test Item Value Reference Range Interpretation Comments GLUCOSE RANDOM (BEAKER) (test code 132 mg/dL 70-110 H = 652) HGB/HCT (H&H) - STAT [id number] 18:36:00 Test Item Value Reference Range Interpretation Comments HEMOGLOBIN (BEAKER) (test code = 11.7 GM/DL 13.0-16.8 L 410) HEMATOCRIT (BEAKER) (test code = 34.0 % 40.0-50.0 L 411) SODIUM NA-STAT [id number] 18:35:00 Test Item Value Reference Range Interpretation Comments SODIUM (BEAKER) (test code = 381) 138 meq/L 136-145 POTASSIUM-STAT [id number] 18:35:00 Test Item Value Reference Range Interpretation Comments POTASSIUM (BEAKER) (test code = 3.7 meq/L 3.6-5.5 379) LACTIC ACID, [id number] 16:33:00 Test Item Value Reference Range Interpretation Comments LACTATE BLOOD ARTERIAL (2) 1.1 mmol/L 0.5-2.2 (BEAKER) (test code = 2874) Computerized Mill Recorder ID - KILOBLOOD GAS, [id number] 15:41:00 Test Item Value Reference Range Interpretation [...] = 1819) 50.0 HGB/HCT (H&H) - STAT [id number] 15:41:00 Test Item Value Reference Range Interpretation Comments HEMOGLOBIN (BEAKER) (test code = 12.9 GM/DL 13.0-16.8 L 410) HEMATOCRIT (BEAKER) (test code = 38.0 % 40.0-50.0 L 411) GLUCOSE-STAT [id number] 15:40:00 Test Item Value Reference Range Interpretation Comments GLUCOSE RANDOM (BEAKER) (test code 108 mg/dL 70-110 = 652) SODIUM NA-STAT [id number] 15:40:00 Test Item Value Reference Range Interpretation Comments SODIUM (BEAKER) (test code = 381) 139 meq/L 136-145 POTASSIUM-STAT [id number] 15:40:00 Test Item Value Reference Range Interpretation Comments POTASSIUM (BEAKER) (test code = 4.0 meq/L 3.6-5.5 379) CALCIUM, [id number] 15:18:00 Test Item Value Reference Range Interpretation Comments CALCIUM IONIZED (BEAKER) (test 1.09 mmol/L 1.12-1.27 L code = 698) PH, BLOOD (BEAKER) (test code = 7.41 1810) BLOOD GAS, [id number] 15:16:00 Test Item Value Reference Range Interpretation [...] (BEAKER) (test code = 1819) 55.0 POTASSIUM-STAT [id number] 15:16:00 Test Item Value Reference Range Interpretation Comments POTASSIUM (BEAKER) (test code = 3.4 meq/L 3.6-5.5 L 379) HGB/HCT (H&H) - STAT [id number] 15:16:00 Test Item Value Reference Range Interpretation Comments HEMOGLOBIN (BEAKER) (test code = 11.8 GM/DL 13.0-16.8 L 410) HEMATOCRIT (BEAKER) (test code = 35.0 % 40.0-50.0 L 411) GLUCOSE-STAT [id number] 15:08:00 Test Item Value Reference Range Interpretation Comments GLUCOSE RANDOM (BEAKER) (test code 107 mg/dL 70-110 = 652) SODIUM NA-STAT [id number] 15:08:00 Test Item Value Reference Range Interpretation Comments SODIUM (BEAKER) (test code = 381) 138 meq/L 136-145 LACTIC ACID, [id number] 15:07:00 Test Item Value Reference Range Interpretation Comments LACTATE BLOOD VENOUS (2) (BEAKER) 0.99 mmol/L 0.50-2.20 (test code = 2872) Computerized Mill Recorder ID - EMERSONHGB/HCT (H&H) - STAT [id number] 14:38:00 Test Item Value Reference Range Interpretation Comments HEMOGLOBIN (BEAKER) (test code = 12.9 GM/DL 13.0-16.8 L 410) HEMATOCRIT (BEAKER) (test code = 38.0 % 40.0-50.0 L 411) CALCIUM, [id number] 14:38:00 Test Item Value Reference Range Interpretation Comments CALCIUM IONIZED (BEAKER) (test 1.22 mmol/L 1.12-1.27 code = 698) PH, BLOOD (BEAKER) (test code = 7.36 1810) BLOOD GAS, [id number] 14:37:00 Test Item Value Reference Range Interpretation [...] (BEAKER) (test code = 1819) 73.0 GLUCOSE-STAT [id number] 14:37:00 Test Item Value Reference Range Interpretation Comments GLUCOSE RANDOM (BEAKER) (test code 102 mg/dL 70-110 = 652) SODIUM NA-STAT [id number] 14:37:00 Test Item Value Reference Range Interpretation Comments SODIUM (BEAKER) (test code = 381) 139 meq/L 136-145 POTASSIUM-STAT [id number] 14:37:00 Test Item Value Reference Range Interpretation Comments POTASSIUM (BEAKER) (test code = 3.8 meq/L 3.6-5.5 379) CALCIUM, [id number] 13:40:00 Test Item Value Reference Range Interpretation Comments CALCIUM IONIZED (BEAKER) (test 1.12 mmol/L 1.12-1.27 code = 698) PH, BLOOD (BEAKER) (test code = 7.43 1810) GLUCOSE-STAT [id number] 13:39:00 Test Item Value Reference Range Interpretation Comments GLUCOSE RANDOM (BEAKER) (test code 104 mg/dL 70-110 = 652) SODIUM NA-STAT [id number] 13:39:00 Test Item Value Reference Range Interpretation Comments SODIUM (BEAKER) (test code = 381) 140 meq/L 136-145 POTASSIUM-STAT [id number] 13:39:00 Test Item Value Reference Range Interpretation Comments POTASSIUM (BEAKER) (test code = 3.7 meq/L 3.6-5.5 379) BLOOD GAS, [id number] 13:39:00 Test Item Value Reference Range Interpretation [...] = 1819) 79.0 HGB/HCT (H&H) - STAT [id number] 13:39:00 Test Item Value Reference Range Interpretation Comments HEMOGLOBIN (BEAKER) (test code = 13.3 GM/DL 13.0-16.8 410) HEMATOCRIT (BEAKER) (test code = 39.0 % 40.0-50.0 L 411) POCT-GLUCOSE [id number] 09:40:00 Test Item Value Reference Range Interpretation Comments POC-GLUCOSE METER 115 mg/dL 70-110 H : TESTED A T [facility] 6720 (BEAKER) (test code = [place], 1538) [address]: Computerized Mill Recorder/Techni jolanta ID = [id number] for CLAYTON LEWIS SARS-COV2/RT-PCR ([facility])2021-05-12 01:07:00 Test Item Value Reference Range Interpretation Comments SARS-COV2/RT-PCR (test Negative Not Detected, Negative, code = 4358021) See external report for linked test SARS-COV-[address] [facility] CRISTIAN (test code = 3875264) Negative result for this test determines that [...] of the Act.Testing was performed using the [employer] SARS-CoV-2 assay.Fact Sheet for Healthcare Providers:https://www.Spectral Image.Quri/gisel/RT_SAR C-IrQ-7_FEX_Pslt_Nnwvy_46-530558.pdfFact Sheet for Healthcare Patients:https://www.Spectral Image.arias/s al/SO_UQYC-WwN-7_Uxawroo_Htqm_Izupx_CD_52-568513C9.pdfPerforming Laboratory:[facility] [place] [address] HEMOGLOBIN [id number] 13:53:00 Test Item Value Reference Range Interpretation Comments HEMOGLOBIN A1C (BEAKER) (test code = 6.4 % 4.3-6.1 H 368) COMPREHENSIVE METABOLIC [id number] 13:44:00 Test Item Value Reference Range Interpretation [...] S NOT APPLICABLE FOR DIALYSIS PATIEN TS. Computerized Mill Recorder ID - [id number] 13:44:00 Test Item Value Reference Range Interpretation Comments MAGNESIUM (BEAKER) (test code = 2.3 mg/dL 1.6-2.6 627) Computerized Mill Recorder ID - DBLIPID [id number] 13:44:00 Test Item Value Reference Range Interpretation [...] Borderline 130-159 High 160-189 Very High >=190 Computerized Mill Recorder ID - [id number] 13:40:00 Test Item Value Reference Range Interpretation Comments PARTIAL THROMBOPLASTIN TIME 28.0 seconds 22.5-36.0 (BEAKER) (test code = 760) PROTHROMBIN [id number] 13:39:00 Test Item Value Reference Range Interpretation Comments PROTIME (BEAKER) 12.7 seconds 11.9-14.2 (test code = 759) INR (BEAKER) (test 0.97 See_Comment [Automat ed message] code = 370) The system [employer]2 Conne[employer] generated this result transmitted ref erence range: <=5.90. The reference range was not used to int erpret this result as normal/abnormal . RECOMMENDED COUMADIN/WARFARIN INR THERAPY RANGESSTANDARD DOSE: 2.0 - 3.0 Includes: PROPHYLAXIS for venous thrombosis, systemic embolization; TREATMENT for venous thrombosis and/or pulmonary embolus.HIGH RISK: Target INR is 2.5-3.5 for patients with mechanical heart valves.CBC W/PLT COUNT & AUTO [id number] 13:15:00 Test Item Value Reference Range Interpretation [...] (test code = 2801) HIGH SENSITIVITY TROPONIN [id number] 21:19:00 Test Item Value Reference Range Interpretation Comments HIGH SENSITIVITY 36 pg/ml See_Comment H [Automated message] TROPONIN I (test code = The system which 5338470) generated this result transmitted ref erence range: <=35. Th e reference range was not used to int erpret this result as normal/abnormal . Computerized Mill Recorder ID - CINDY BThe HOTEL OPERATIONS MANAGER STAT High Sensitivity Troponin-I results should be used in conjunction with other diagnostic information such as ECG, clinical observations and information, and patient symptoms to aid in the diagnosis of IL.HIGH SENSITIVITY TROPONIN [id number] 13:20:00 Test Item Value Reference Range Interpretation Comments HIGH SENSITIVITY 36 pg/ml See_Comment H [Automated message] TROPONIN I (test code = The system which [id number]) generated this result transmitted ref erence range: <=35. Th e reference range was not used to int erpret this result as normal/abnormal . Computerized Mill Recorder ID - MARICEL CThe HOTEL OPERATIONS MANAGER STAT High Sensitivity Troponin-I results should be used in conjunction with other diagnostic information such as ECG, clinical observations and information, and patientsymptoms to aid in the diagnosis of IL. BASIC METABOLIC [id number] 04:46:00 Test Item Value Reference Range Interpretation [...] S NOT APPLICABLE FOR DIALYSIS PATIEN TS. Computerized Mill Recorder ID - JAK [id number] 04:46:00 Test Item Value Reference Range Interpretation Comments MAGNESIUM (BEAKER) (test code = 2.1 mg/dL 1.6-2.6 627) Computerized Mill Recorder ID - JAK MCBC W/PLT COUNT & AUTO [id number] 04:32:00 Test Item Value Reference Range Interpretation [...] PERCENT (BEAKER) (test code = 2801) CT, [id number] 22:08:00Unlisted Reason for Exam - Click Yes and Enter Reason Below->YesUnlisted Reason for Exam->Evaluate descending aorta calcification to femoral iliac vessels, prior to cabgWill this procedure require oral contrast?->No [facility] CENTERName: KERON MORENO : 1955 [...] Pedraza Verified Date/Time: 05/03/2021 22:08:57 Reading Location: [address] Transitional Reading Room [id number] 16:21:00 Test Item Value Reference Range Interpretation Comments ACTIVATED CLOTTING TIME 131 sec : 74 -137 seconds, (BEAKER) (test code = Baseli ne: TESTED AT 441) [place] [address] 30: Computerized Mill Recorder/Techni jolanta ID = [id number] for ILLORY (V), IGNACIO [id number] 15:12:00 Test Item Value Reference Range Interpretation Comments ACTIVATED CLOTTING TIME 158 sec : 74 -137 seconds, (BEAKER) (test code = Baseli ne: TESTED AT 441) [place] [address] 30: Computerized Mill Recorder/Techni jolanta ID = [id number] for ILLORY (V), IGNACIO [id number] 12:13:00 Test Item Value Reference Range Interpretation Comments ACTIVATED CLOTTING TIME 290 sec : 74 -137 seconds, (BEAKER) (test code = Baseli ne: TESTED AT 441) [place] [address] 30: Computerized Mill Recorder/Techni jolanta ID = [id number] for CA RPIO, [place] [id number] 12:00:00 Test Item Value Reference Range Interpretation Comments ACTIVATED CLOTTING TIME 252 sec : 74 -137 seconds, (BEAKER) (test code = Baseli ne: TESTED AT 441) [address], [address]: Computerized Mill Recorder/Techni jolanta ID = [id number] for CA VIR[place]IE FORREST BASIC METABOLIC [id number] 08:47:00 Test Item Value Reference Range Interpretation [...] S NOT APPLICABLE FOR DIALYSIS PATIEN TS. Computerized Mill Recorder ID - AAHAMIDPROTHROMBIN TIME/[id number] 08:38:00 Test Item Value Reference Range Interpretation Comments PROTIME (BEAKER) 13.1 seconds 11.9-14.2 (test code = 759) INR (BEAKER) (test 1.01 See_Comment [Automat ed message] code = 370) The system [employer] generated this result transmitted ref erence range: <=5.90. The reference range was not used to int erpret this result as normal/abnormal . RECOMMENDED COUMADIN/WARFARIN INR THERAPY RANGESSTANDARD DOSE: 2.0 - 3.0 Includes: PROPHYLAXIS for venous thrombosis, systemic embolization; TREATMENT for venous thrombosis and/or pulmonary embolus.HIGH RISK: Target INR is 2.5-3.5 for patients with mechanical heart valves.CBC W/PLT COUNT & AUTO [id number] 08:29:00 Test Item Value Reference Range Interpretation [...] (BEAKER) (test code = 2801) SARS-COV2/RT-PCR ([facility])2021-04-29 18:08:00 Test Item Value Reference Range Interpretation Comments SARS-COV2/RT-PCR (test Negative Not Detected, Negative, code = 3590233) See external report for linked test SARS-COV-[address] [facility] (test code = 5337448) Negative result for this test determines that [...] of the Act.Fact Sheet for Healthcare Prov iders:https://www.Peel-Works.com/sites/default/files/product/documents/Fact_Sheet_HC _Agakjhnzn_Umev_KTDM-GiM-3.pdfFact Sheet for Healthcare Patients:https://www.[employer]el[employer].com/sites/default/files/product/docume nts/Tltu_Xrffc_Yjuwhynv_Ozwl_PDQM-OaP-3.pdfPerforming Laboratory:[facility] [place], [place] [address]WLGTE METABOLIC PANEL 2021-04-29 13:20:00 Test Item Value [...] S NOT APPLICABLE FOR DIALYSIS PATIEN TS. Computerized Mill Recorder ID - JAK MPROTHROMBIN TIME/[id number] 11:14:00 Test Item Value Reference Range Interpretation Comments PROTIME (BEAKER) 13.3 seconds 11.9-14.2 (test code = 759) INR (BEAKER) (test 1.03 See_Comment [Automat ed message] code = 370) The system [employer] Conne[employer] generated this result transmitted ref erence range: <=5.90. The reference range was not used to int erpret this result as normal/abnormal . RECOMMENDED COUMADIN/WARFARIN INR THERAPY RANGESSTANDARD DOSE: 2.0 - 3.0 Includes: PROPHYLAXIS for venous thrombosis, systemic embolization; TREATMENT for venous thrombosis and/or pulmonary embolus.HIGH RISK: Target INR is 2.5-3.5 for patients with mechanical heart valves.CBC W/PLT COUNT & AUTO [id number] 11:03:00 Test Item Value Reference Range Interpretation [...] = 2801) CT, CTA, CORONARY, WITH TRANG [id number] 13:53:00 [facility] 1955 Sex: MFINAL REPORT EXAM: CALCIUM SCORE AND CORONARY CTA INDICATION: Chest pain, acute, nonspecific COMPARISON: None. TECHNIQUE: Multi-detector CT technology was employed ( Discovery CT 750 HD 64 MDCT [employer] Minimal slice thickness was performed following the [...] Kayla Jesus MDReport Verified Date/Time: 03/23/2021 13:53:11 [id number] 10:20:00 Test Item Value Reference Range Interpretation Comments POC-CREATININE 0.9 mg/dL 0.6-1.3 : TESTED AT [facility] ([facility]) (test [address] code = 1859) A, [facility] 7 7030: Computerized Mill Recorder/Techni jolanta ID = [id number] for IRVIN EPPERSON POC-EGFR 85 mL/min/1.73M2 ([facility]) (test code = 1860) SARS-COV2/RT-PCR ([facility])2021-01-05 02:00:00 Test Item Value Reference Range Interpretation Comments SARS-COV2/RT-PCR (test Negative Not Detected, Negative, code = 6043500) See external report for linked test SARS-COV-2 PERFORMING LAB [facility] (test code = 1212455) Negative result for this test determines that [...] the Arias SARS-CoV-2 assay.Fact Sheet for Healthcare Providers:https://www.Spectral Image.Quri/gisel/RT_SAR P-MwI-7_WKU_Eubd_Pxxvn_19-449040.pdfFact Sheet for Healthcare Patients:https://www.Sensorist/s al/QS_GJGL-ObC-9_Vorrmjz_Vqri_Fxdan_ZL_16-946323J5.pdfPerforming Laboratory:[place] [address] [place] [address] BASIC METABOLIC [id number] 13:40:00 Test Item Value Reference Range Interpretation [...] S NOT APPLICABLE FOR DIALYSIS PATIEN TS. Computerized Mill Recorder ID - JAK MPROTHROMBIN TIME/[id number] 13:21:00 Test Item Value Reference Range Interpretation Comments PROTIME (BEAKER) 12.7 seconds 11.9-14.2 (test code = 759) INR (BEAKER) (test 0.99 See_Comment [Automat ed message] code = 370) The system [employer] generated this result transmitted ref erence range: [...] mechanical heart valves.CBC W/PLT COUNT & AUTO [id number] 13:14:00 Test Item Value Reference Range Interpretation [...] 0-1 PERCENT (BEAKER) (test code = 2801) SARS-CoV-2 (COVID-19) by RT-PCR (HIGH RISK)2020-09-23 00:00:00 Test Item Value Reference Range Interpretation Comments SARS-CoV-2 INTERPRETATION Negative (test code = 66785) SOURCE (test code = 31822) Nasal_Swab_in_VTM__ UTM SARS-CoV-2 (COVID-19) by RT-PCR (HIGH RISK)2020-09-16 00:00:00 Test Item Value Reference Range Interpretation Comments SARS-CoV-2 INTERPRETATION Negative (test code = 79077) SOURCE (test code = 80352) Nasal_Swab_in_VTM__ UTM CULTURE, [id number] 00:00:00 Test Item Value Reference Range Interpretation Comments CULTURE, URINE (test SPECIMEN NUMBER: code = 41853) [id number] CULTURE, [id number] 00:00:00 Test Item Value Reference Range Interpretation Comments CULTURE, URINE (test SPECIMEN NUMBER: code = 82233) [id number] PSA, [id number] 00:00:00 Test Item Value Reference Range Interpretation Comments PSA, TOTAL (test code = 2606) 0.26 NG/ML PSA, [id number] 00:00:00 Test Item Value Reference Range Interpretation Comments PSA, TOTAL (test code = 2606) 0.26 NG/ML PSA, [id number] 00:00:00 Test Item Value Reference Range Interpretation Comments PSA, TOTAL (test code = 2606) 0.26 NG/ML MR, BRAIN, WITHOUT IV [id number] 10:00:00FINAL REPORT History: Numbness and tinglingComparison studies: [...] intracranial MRA of 03/03/2019. Signed: Lamine Hussein MDRconne[facility] Verified Date/Time: 05/03/2019 10:00:48 Reading Location: [facility] Room [address] [place] [address] CBC W/PLT COUNT & AUTO [id number] 06:59:00 Test Item Value Reference Range Interpretation [...] (BEAKER) (test code = 2801) BASIC METABOLIC [id number] 06:03:00 Test Item Value Reference Range Interpretation [...] NOT APPLICABLE FOR DIALYSIS PATIEN TS. HEMOGLOBIN [id number] 08:52:00 Test Item Value Reference Range Interpretation Comments HEMOGLOBIN A1C (BEAKER) (test code = 5.8 % 4.3-6.1 368) LIPID [id number] 06:11:00 Test Item Value Reference Range Interpretation [...] High 160-189 Very High >=190 FastingBASIC METABOLIC [id number] 06:11:00 Test Item Value Reference Range Interpretation [...] PATIEN TS. FastingCBC W/PLT COUNT & AUTO [id number] 05:06:00 Test Item Value Reference Range Interpretation [...] (test code = 2801) TSH/FREE T4 IF [id number] 19:14:00 Test Item Value Reference Range Interpretation Comments THYROID STIMULATING HORMONE 0.53 uIU/mL 0.35-4.94 (BEAKER) (test code = 772) VITAMIN B12 AND [id number] 19:14:00 Test Item Value Reference Range Interpretation Comments VITAMIN B12 (BEAKER) (test code = 660 pg/mL 213-816 774) FOLATE (BEAKER) (test code = 362) 6.9 ng/mL >=7.0 L BASIC METABOLIC [id number] 18:39:00 Test Item Value Reference Range Interpretation [...] FOR DIALYSIS PATIEN TS. MR, BRAIN, WITHOUT [id number] 16:16:00Reason for exam:->StrokeWhat is the patient's sedation [...] None available. TECHNIQUE: 2 D and 3-D nuuf-er-aiqqnq MRA images of the intra- and extracranial [...] is antegrade in both vertebral arteries. MRA [place]: There is a inferiorly [...] MDReport Verified Date/Time: 03/03/2019 16:16:12 Reading Location: [facility] C0[facility] Neuro Reading Room MR, MRA, BRAIN, WITHOUT [id number] 16:16:00Reason for exam:->Ischemic Stroke EvaluationFINAL REPORT MRI [...] None available. TECHNIQUE: 2 D and 3-D rqxt-li-ejferb MRA images of the intra- and extracranial [...] is antegrade in both vertebral arteries. MRA [place]: There is a inferiorly [...] MDReport Verified Date/Time: 03/03/2019 16:16:12 Reading Location: [facility] C013V Neuro Reading Room MR, MRA, NECK, WITHOUT IV [id number] 16:16:00Reason for exam:->Ischemic Stroke EvaluationFINAL REPORT MRI [...] None available. TECHNIQUE: 2 D and 3-D bjpc-lc-wecghv MRA images of the intra- and extracranial [...] is antegrade in both vertebral arteries. MRA [place]: There is a inferiorly [...] MDReport Verified Date/Time: 03/03/2019 16:16:12 Reading Location: [facility] C013V Neuro Reading Room LIPID PANEL 2019-03-03 04:08:00 [...] High 160-189 Very High >=190 FastingBASIC METABOLIC [id number] 04:08:00 Test Item Value Reference Range Interpretation [...] PATIEN TS. FastingCBC W/PLT COUNT & AUTO [id number] 03:54:00 Test Item Value Reference Range Interpretation [...] = 2801) CBC W/PLT COUNT & AUTO [id number] 20:55:00 Test Item Value Reference Range Interpretation [...] (BEAKER) (test code = 2801) BASIC METABOLIC [id number] 20:44:00 Test Item Value Reference Range Interpretation [...] S NOT APPLICABLE FOR DIALYSIS PATIEN TS. Notes Date/Time Note Provider Source 2022-06-24 PROCEDURE INFORMATION: ASHLEY Casarez ast 12:10:00-00:00 Exam: NM Hepatobiliary Inclu ding Gallbladder When Present With Pharmacological Intervention Exam date and time: 06/24/2022 12:12 PM Age: 66 years old Clinical indication: Abdominal distension (gaseo us); Additional info: /r14.0 abdominal distension (gaseous) TECHNIQUE: Imaging protocol: Hepatobiliary system imaging i ncluding the gallbladder when present with pharmacologic intervention. Includi ng quantitative measurements when performed. Projections: Frontal abdomen. Radiopharmaceutical: Right antecubital fossa IV. 6.2 mCI Tc-99m Mebrofenin (Choletec, Bromotriethyl-VINCE), IV. Time of imaging post radiopharmaceutical adminis tration: 60 minutes following radiopharmaceutical. Pharmacological intervention: 1.6 mcg CCK was ad ministered at 60 minutes post radiopharmaceutical injection, without reported symptoms. COMPARISON: ABDOMEN/PELVIS W IV CONTRAST CT 06/24/2022 11:59 AM FINDINGS: Liver: Unremarkable. Homogeneous radiotracer upt randa. Gallbladder: Clearly visualized. The gallbladder ejection fraction is 29 %. Bile ducts: Unremarkable. Cl early visualized. Normal hepatic to biliary transit time. Stomach and bowel: Unremarkable. No evidence of significant enterogastric reflux. Radiotracer activity is seen in the smal l bowel. Normal biliary to bowel transit time. IMPRESSION: Minimally decreased gallbladder ejection fractio n which may indicate gallbladder dyskinesia or chronic cholecystitis. No evidence of acute cholecystitis. iMguel Garg MD On 06/24/2022 14:34:17; HOMERO [id number] 2022-06-24 PROCEDURE INFORMATION: Hermelindo ast 12:10:00-00:00 Exam: NM Hepatobiliary Inclu ding Gallbladder When Present With Pharmacological Intervention Exam date and time: 06/24/2022 12:12 PM Age: 66 years old Clinical indication: Abdominal distension (gaseo us); Additional info: /r14.0 abdominal distension (gaseous) TECHNIQUE: Imaging protocol: Hepatobiliary system imaging i ncluding the gallbladder when present with pharmacologic intervention. Includi ng quantitative measurements when performed. Projections: Frontal abdomen. Radiopharmaceutical: Right antecubital fossa IV. 6.2 mCI Tc-99m Mebrofenin (Choletec, Bromotriethyl-VINCE), IV. Time of imaging post radiopharmaceutical adminis tration: 60 minutes following radiopharmaceutical. Pharmacological intervention: 1.6 mcg CCK was ad ministered at 60 minutes post radiopharmaceutical injection, without reported symptoms. COMPARISON: ABDOMEN/PELVIS W IV CONTRAST CT 06/24/2022 11:59 AM FINDINGS: Liver: Unremarkable. Homogeneous radiotracer upt randa. Gallbladder: Clearly visualized. The gallbladder ejection fraction is 29 %. Bile ducts: Unremarkable. Cl early visualized. Normal hepatic to biliary transit time. Stomach and bowel: Unremarkable. No evidence of significant enterogastric reflux. Radiotracer activity is seen in the smal l bowel. Normal biliary to bowel transit time. IMPRESSION: Minimally decreased gallbladder ejection fractio n which may indicate gallbladder dyskinesia or chronic cholecystitis. No evidence of acute cholecystitis. Miguel Garg MD On 06/24/2022 14:34:17; HOMERO [id number] 2022-06-24 PROCEDURE INFORMATION: ASHLEY banegas 12:10:00-00:00 Exam: NM Hepatobiliary Inclu ding Gallbladder When Present With Pharmacological Intervention Exam date and time: 06/24/2022 12:12 PM Age: 66 years old Clinical indication: Abdominal distension (gaseo us); Additional info: /r14.0 abdominal distension (gaseous) TECHNIQUE: Imaging protocol: Hepatobiliary system imaging i ncluding the gallbladder when present with pharmacologic intervention. Includi ng quantitative measurements when performed. Projections: Frontal abdomen. Radiopharmaceutical: Right antecubital fossa IV. 6.2 mCI Tc-99m Mebrofenin (Choletec, Bromotriethyl-VINCE), IV. Time of imaging post radiopharmaceutical adminis tration: 60 minutes following radiopharmaceutical. Pharmacological intervention: 1.6 mcg CCK was ad ministered at 60 minutes post radiopharmaceutical injection, without reported symptoms. COMPARISON: ABDOMEN/PELVIS W IV CONTRAST CT 06/24/2022 11:59 AM FINDINGS: Liver: Unremarkable. Homogeneous radiotracer upt randa. Gallbladder: Clearly visualized. The gallbladder ejection fraction is 29 %. Bile ducts: Unremarkable. Cl early visualized. Normal hepatic to biliary transit time. Stomach and bowel: Unremarkable. No evidence of significant enterogastric reflux. Radiotracer activity is seen in the smal l bowel. Normal biliary to bowel transit time. IMPRESSION: Minimally decreased gallbladder ejection fractio n which may indicate gallbladder dyskinesia or chronic cholecystitis. No evidence of acute cholecystitis. Miguel Garg MD On 06/24/2022 14:34:17; HOMERO [id number] 2022-06-24 Radiation Dose CTDIVOL = 0 (mGy): DLP = 436.72 ( mGy-cm) Joey 10:05:00-00:00 PROCEDURE INFORMATION: Exam: CT Abdomen And Pelvis With Contrast Exam date and time: 06/24/2022 11:59 AM Age: 66 years old Clinical indication: /r14.0, k59.00, k76.0 TECHNIQUE: Imaging protocol: Computed tomography of the abdomen and pelvis with contrast. Radiation optimization: All CT scans at this facility use at least one of these dose optimization techniques: automated exposure control; mA and/or kV adjustment per patient size (includes targeted e xams where dose is matched to clinical indication); or iterative reconstructio n. Contrast material: OMNI; Contrast volume: 75 ml; Contrast route: INTRAVENOUS (IV); Other contrast: Oral, omni, 50; COMPARISON: ABDOMEN COMPLETE US 12/17/2021 9:02 AM RADIATION DOSE METRICS: Total DLP (mGy-cm): 436.72 FINDINGS: Liver: Normal. No mass. Gallbladder and bile ducts: Normal. No calcified stones. No ductal dilation. Pancreas: Normal. No ductal dilation. Spleen: Normal. No splenomegaly. Adrenal glands: Normal. No mass. Kidneys and ureters: Right-sided renal cyst medi ally 1.8 x 1.8 cm without kidney stones. No hydronephrosis. Stomach and bowel: Unremarkable. No obstruction. No mucosal thickening. Appendix: No evidence of appendicitis. Intraperitoneal space: Unremarkable. No free air . No significant fluid collection. Vasculature: Unremarkable. No abdominal aortic a neurysm. Lymph nodes: Unremarkable. No enlarged lymph nod es. Urinary bladder: Unremarkable as visualized. Reproductive: Unremarkable as visualized. Bones/joints: Unremarkable. No acute fracture. Soft tissues: Unremarkable. IMPRESSION: No acute findings. Simple right renal cyst requi ring no follow-up. Jayjay Delgadillo MD On 06/24/2022 17:28:21; MININT-RS [id number] 2022-06-24 Radiation Dose CTDIVOL = 0 (mGy): DLP = 436.72 ( mGy-cm) [facility] 10:05:00-00:00 PROCEDURE INFORMATION: Exam: CT Abdomen And Pelvis With Contrast Exam date and time: 06/24/2022 11:59 AM Age: 66 years old Clinical indication: /r14.0, k59.00, k76.0 TECHNIQUE: Imaging protocol: Computed tomography of the abdomen and pelvis with contrast. Radiation optimization: All CT scans at this facility use at least one of these dose optimization techniques: automated exposure control; mA and/or kV adjustment per patient size (includes targeted e xams where dose is matched to clinical indication); or iterative reconstructio n. Contrast material: OMNI; Contrast volume: 75 ml; Contrast route: INTRAVENOUS (IV); Other contrast: Oral, omni, 50; COMPARISON: ABDOMEN COMPLETE US 12/17/2021 9:02 AM RADIATION DOSE METRICS: Total DLP (mGy-cm): 436.72 FINDINGS: Liver: Normal. No mass. Gallbladder and bile ducts: Normal. No calcified stones. No ductal dilation. Pancreas: Normal. No ductal dilation. Spleen: Normal. No splenomegaly. Adrenal glands: Normal. No mass. Kidneys and ureters: Right-sided renal cyst medi ally 1.8 x 1.8 cm without kidney stones. No hydronephrosis. Stomach and bowel: Unremarkable. No obstruction. No mucosal thickening. Appendix: No evidence of appendicitis. Intraperitoneal space: Unremarkable. No free air . No significant fluid collection. Vasculature: Unremarkable. No abdominal aortic a neurysm. Lymph nodes: Unremarkable. No enlarged lymph nod es. Urinary bladder: Unremarkable as visualized. Reproductive: Unremarkable as visualized. Bones/joints: Unremarkable. No acute fracture. Soft tissues: Unremarkable. IMPRESSION: No acute findings. Simple right renal cyst requi ring no follow-up. Jayjay Delgadillo MD On 06/24/2022 17:28:21; MININT-RS QU31V 2022-06-24 Radiation Dose CTDIVOL = 0 (mGy): DLP = 436.72 ( mGy-cm) [facility] 10:05:00-00:00 PROCEDURE INFORMATION: Exam: CT Abdomen And Pelvis With Contrast Exam date and time: 06/24/2022 11:59 AM Age: 66 years old Clinical indication: /r14.0, k59.00, k76.0 TECHNIQUE: Imaging protocol: Computed tomography of the abdomen and pelvis with contrast. Radiation optimization: All CT scans at this facility use at least one of these dose optimization techniques: automated exposure control; mA and/or kV adjustment per patient size (includes targeted e xams where dose is matched to clinical indication); or iterative reconstructio n. Contrast material: OMNI; Contrast volume: 75 ml; Contrast route: INTRAVENOUS (IV); Other contrast: Oral, omni, 50; COMPARISON: ABDOMEN COMPLETE US 12/17/2021 9:02 AM RADIATION DOSE METRICS: Total DLP (mGy-cm): 436.72 FINDINGS: Liver: Normal. No mass. Gallbladder and bile ducts: Normal. No calcified stones. No ductal dilation. Pancreas: Normal. No ductal dilation. Spleen: Normal. No splenomegaly. Adrenal glands: Normal. No mass. Kidneys and ureters: Right-sided renal cyst medi ally 1.8 x 1.8 cm without kidney stones. No hydronephrosis. Stomach and bowel: Unremarkable. No obstruction. No mucosal thickening. Appendix: No evidence of appendicitis. Intraperitoneal space: Unremarkable. No free air . No significant fluid collection. Vasculature: Unremarkable. No abdominal aortic a neurysm. Lymph nodes: Unremarkable. No enlarged lymph nod es. Urinary bladder: Unremarkable as visualized. Reproductive: Unremarkable as visualized. Bones/joints: Unremarkable. No acute fracture. Soft tissues: Unremarkable. IMPRESSION: No acute findings. Simple right renal cyst requi ring no follow-up. Jayjay Delgadillo MD On 06/24/2022 17:28:21; PAMELA-ZAKI QU31V 2021-12-17 PROCEDURE INFORMATION: ASHLEY germain 09:00:00-00:00 Exam: US Abdomen Complete Exam date and time: 12/17/2021 9:02 AM Age: 66 years old Clinical indication: Generalized abdominal pain; Additional info: /r10.84 generalized abdominal pain TECHNIQUE: Imaging protocol: Real-time ultrasound of the abdomen with image documentation. COMPARISON: No relevant prior studies available. FINDINGS: Liver: Normal. No mass. Gallbladder: Normal. No gallstones. There is no gallbladder wall thickening. Common bile duct: The common bile duct measures 4 mm. Pancreas: Visualized pancreas is unremarkable. Right kidney: The right kidney measures 10.8 cm and appears normal. No mass, calculi or hydronephrosis. Left kidney: The left kidney measures 10.1 cm an d appears normal. No mass, calculi or hydronephrosis. Spleen: The spleen appears normal and measures 8 .6 cm. Aorta: Normal. No aneurysm. Inferior vena cava: Normal. IMPRESSION: Unremarkable abdominal ultrasound. Miguel Garg MD On 12/17/2021 09:58:11; ALIYA [id number] 2021-12-17 PROCEDURE INFORMATION: ASHLEY germain 09:00:00-00:00 Exam: US Abdomen Complete Exam date and time: 12/17/2021 9:02 AM Age: 66 years old Clinical indication: Generalized abdominal pain; Additional info: /r10.84 generalized abdominal pain TECHNIQUE: Imaging protocol: Real-time ultrasound of the abdomen with image documentation. COMPARISON: No relevant prior studies available. FINDINGS: Liver: Normal. No mass. Gallbladder: Normal. No gallstones. There is no gallbladder wall thickening. Common bile duct: The common bile duct measures 4 mm. Pancreas: Visualized pancreas is unremarkable. Right kidney: The right kidney measures 10.8 cm and appears normal. No mass, calculi or hydronephrosis. Left kidney: The left kidney measures 10.1 cm an d appears normal. No mass, calculi or hydronephrosis. Spleen: The spleen appears normal and measures 8 .6 cm. Aorta: Normal. No aneurysm. Inferior vena cava: Normal. IMPRESSION: Unremarkable abdominal ultrasound. Miguel Garg MD On 12/17/2021 09:58:11; ALIYA [id number] 2021-12-17 PROCEDURE INFORMATION: ASHLEY germain 09:00:00-00:00 Exam: US Abdomen Complete Exam date and time: 12/17/2021 9:02 AM Age: 66 years old Clinical indication: Generalized abdominal pain; Additional info: /r10.84 generalized abdominal pain TECHNIQUE: Imaging protocol: Real-time ultrasound of the abdomen with image documentation. COMPARISON: No relevant prior studies available. FINDINGS: Liver: Normal. No mass. Gallbladder: Normal. No gallstones. There is no gallbladder wall thickening. Common bile duct: The common bile duct measures 4 mm. Pancreas: Visualized pancreas is unremarkable. Right kidney: The right kidney measures 10.8 cm and appears normal. No mass, calculi or hydronephrosis. Left kidney: The left kidney measures 10.1 cm an d appears normal. No mass, calculi or hydronephrosis. Spleen: The spleen appears normal and measures 8 .6 cm. Aorta: Normal. No aneurysm. Inferior vena cava: Normal. IMPRESSION: Unremarkable abdominal ultrasound. Miguel Garg MD On 12/17/2021 09:58:11; ALIYA [id number] 2021-05-14 HAI CALDERON [facility] 15:59:53-00:00 OPERATIVE/PROCEDURE REPORT KERON MORENO FACILITY: [facility] Billing #: [id number] Room: [place] [address] MR #: [id number] : 1955 DATE OF PROCEDURE: 05/13/2021 SURGEON: Hai Calderon MD, PhD PREOPERATIVE DIAGNOSIS: 1. Coronary artery disease with significant left anterior descending disease. 2. Hypertension. 3. Hyperlipidemia. 4. History of transient ischemic attack or strok e. 5. Severe peripheral vascular disease, status po st bilateral common iliac stents. POSTOPERATIVE DIAGNOSES: 1. Coronary artery disease with significant left anterior descending disease. 2. Hypertension. 3. Hyperlipidemia. 4. History of transient ischemic attack or strok e. 5. Severe peripheral vascular disease, status po st bilateral common iliac stents. PROCEDURES: 1. Robotic-assisted coronary artery bypass graft ing x1 with left internal mammary artery to left anterior de scending artery. 2. Robotic harvesting of the left internal mamma ry artery as a pedicle graft. 3. Left mini thoracotomy for direct off pump corinna ting heart anastomosis of left internal mammary artery to l eft anterior descending. 4. Placement of 6-Angolan vascular sheath into le ft femoral artery and 7-Angolan vascular sheath into the fem oral vein as backup access for possible need of emergency car diopulmonary bypass. HOME ATTENDANT: DELROY Floyd ESTIMATED BLOOD LOSS: 200 mL. There was no blood transfusion. INDICATIONS FOR THE PROCEDURE: The patient is a 65-year-old gentleman, who has multiple cardiac risk factors including hypertension, hyperlipidemia, former smoker, and severe peripheral vascular disease. He presented with e xertional chest pain and claudication. The cardiac workup revealed severe coronary artery disease with tight proxim al left anterior descending artery stenosis. Due to this finding, we recommend the patient to undergo robotic-assiste d coronary artery bypass grafting with MURRAY to LAD. The shad efits and risks of surgery were discussed with the patient and then the consent was obtained. DESCRIPTION OF PROCEDURE: We brought the patient to the operating room. He was intubated. General anesthesia was g iven. His chest, abdomen, and bilateral lower extremities were pr epped and draped in sterile fashion. We inserted a double-lumen e ndotracheal tube. We deflated the left lung. We inserted, 6-Angolan sheath into the left femoral artery and a 7-Angolan vascular [place] th into the left femoral vein as backup access for possible emerg ency cardiopulmonary artery bypass support. We deflated the left lung. We inserted three juhi otic trocars at the third, fifth, and seventh intercostal spa ce along the left anterior axillary line. We inserted robotic camera into the fifth intercostal space. A robotic grasper w as inserted into the seventh intercostal space, a robotic sp atula was inserted into the third intercostal space. We id entified the left internal mammary artery. We used an electro cautery to dissect along the left internal mammary artery a s the in situ Pedicle graft. We used a CO2 insufflation cathet er to Subfascially dissect along the internal mammary artery. We us ed the vascular clips to clip the intercostal branches of the MURRAY graft. We divided the intercostal branches and m obilized the entire length of the MURRAY graft from its proxima l origin to its distal bifurcation. We gave heparin, we divided the dis cara end of the left internal mammary artery. We used the robot to open the pericardium, and i dentified the left anterior descending artery target segment i n the mid segment. We find at the fifth intercostal space as the co rresponding intercostal space. At this time, we removed the robotic instruments . We made a 2-inch minithoracotomy incision at the fifth int ercostal space. We placed a small Estech retractor. We brought up the pericardium sac to expose the midsegment of the LAD. We prepared the distal end of the left internal lilia jennifer artery, which had good blood flow. We gave heparin to br ing up ACT to 300. We applied a myocardial stabilizer to the m id segment of the LAD and placed elastic tapes to temporarily occlude the LAD. We made a 6 mm anterior wall arteriotomy. We bro ught down the distal end of the MURRAY graft for an end-to-side anastomosis. A 7-0 Prolene suture was used for the continuou s running anastomosis. We tied the suture and removed the elastic tapes. We noted good hemostasis between the MURRAY and L AD. We used A hand-held doppler to measure the flow from RANDOLPH A to LAD and the Flow signal was excellent. The protamine was giv en to neutralize the effect of Heparin and hemostasis was ensured . We placed a 32-Angolan chest tube into the left p leural space. The intercostal space was closed with 3 Ethibond sutures. The muscle, fascia, subcutaneous tissue, and skin we re closed with Vicryl sutures. The patient tolerated the proce dure well and was transferred to the recovery room. DMITRY/REJI /[id number]
--- NOTE | 2023-07-07 18:40 | RAD REPORT ---
EXAM DESCRIPTION: CT - Head Brain Wo Cont - 07/07/2023 6:33 pm CLINICAL HISTORY: headache, left posterior Headache, drowsiness COMPARISON: Head Brain Wo Cont dated 05/28/2022; Head Brain Wo Cont dated 03/19/2021 TECHNIQUE: All CT scans are performed using dose optimization technique as appropriate and may inclu de automated exposure control or mA/KV adjustment according to patient size. FINDINGS: No intracranial hemorrhage, hydrocephalus or extra-axial fluid collection.Mild generalized brain atrophy.No areas of brain edema or evidence of midline shift. Right vertebral atherosclerosis. Mild mucoperiosteal thickening affects the left maxillary antrum. The paranasal sinuses and mastoids otherwise clear. The calvarium is intact. IMPRESSION: No acute intracranial abnormality.
--- NOTE | 2023-07-07 19:13 | ER ---
Nurse's Notes [facility] Name: John Moreno Age: 67 yrs Sex: Male : 1955 Arrival Date: 07/07/2023 Time: 17:19 Bed 15 Private MD: Diagnosis: Headache;Trigeminal neuralgia Presentation: 07/07 17:35 Chief complaint: Patient states: Intermittent left side head pain since 1pm. No pain at [facility] this time. Has not taken anything for the pain. Coronavirus screen: Vaccine status: Patient reports being unvaccinated. Ebola Screen: Patient denies travel to an Ebola-affected area in the 21 days before illness onset. Initial Sepsis Screen: Does the patient meet any 2 criteria? No. Patient's initial sepsis screen is negative. Does the patient have a suspected source of infection? No. Patient's initial sepsis screen is negative. Risk Assessment: Do you want to hurt yourself or someone else? Patient reports no desire to harm self or others. Onset of symptoms was July 07, 2023 at 13:00. 17:35 Method Of Arrival: Ambulatory [facility] 17:35 Acuity: JEFFRY 3 [facility] Triage Assessment: 19:42 General: Appears. ha1 Historical: - Allergies: 17:37 NKDA; nj1 - PMHx: 17:37 Hypertension; Hyperlipidemia; coronary atherosclerosis; nj1 - PSHx: 17:37 stents in legs; heart cath; cardiac bypass; Testicular surgery, left; nj1 - Immunization history:: Client reports having NOT received the Covid vaccine. - Social history:: Smoking status: Patient/guardian denies using tobacco, but has a distant history of tobacco abuse. - Family history:: not pertinent. - Hospitalizations: : No recent hospitalization is reported. Screenin:05 [facility] ED Fall Risk Assessment (Adult) History of falling in the last 3 months, db including since admission No falls in past 3 months (0 pts) Confusion or Disorientation No (0 pts) Intoxicated or Sedated No (0 pts) Impaired Gait No (0 pts) Mobility Assist Device Used No (0 pt) Altered Elimination No (0 pt) Score/Fall Risk Level 0 - 2 = Low Risk Oriented to surroundings, Maintained a safe environment. Abuse screen: Denies threats or abuse. Denies injuries from another. Nutritional screening: No deficits noted. Tuberculosis screening: No symptoms or risk factors identified. Assessment: 18:05 Reassessment: Patient appears in no apparent distress at this time. Patient and/or db family updated on plan of care and expected duration. Pain level reassessed. Patient is alert, oriented x 3, equal unlabored respirations, skin warm/dry/pink. 18:58 Reassessment: Patient appears in no apparent distress at this time. Patient and/or db family updated on plan of care and expected duration. Pain level reassessed. Patient is alert, oriented x 3, equal unlabored respirations, skin warm/dry/pink. Pain: Complains of pain in scalp. 19:44 Reassessment: Patient and/or family updated on plan of care and expected duration. Pain ha1 level reassessed. Patient is alert, oriented x 3, equal unlabored respirations, skin warm/dry/pink. Vital Signs: 17:35 BP 143 / 74; Pulse 76; Resp 18; Temp 98.7(O); Pulse Ox 98% ; Weight 72.57 kg; Height 5 nj1 ft. 4 in. ; Pain 0/10; 18:48 BP 143 / 77; Pulse 67; Resp 16; Pulse Ox 98% on R/A; db 19:43 BP 157 / 77; Pulse 71; Resp 16 S; Pulse Ox 100% on R/A; ha1 17:35 Body Mass Index 27.46 (72.57 kg, 162.56 cm) nj1 17:35 Pain Scale: Adult nj1 [place] Coma Score: 19:08 Eye Response: spontaneous(4). Motor Response: obeys commands(6). Verbal Response: rn oriented(5). Total: 15. ED Course: 17:21 Patient arrived in ED. im 17:26 Nemesio Bell MD is Attending Physician. rn 17:37 Triage completed. nj1 17:39 Arm band placed on right wrist. nj1 17:56 Nereida Keating, CIS[facility] is Primary Nurse. db 18:05 Patient has correct armband on for positive identification. Bed in low position. Call db light in reach. Side rails up X 1. Pulse ox on. NIBP on. 18:35 CT Head Brain wo Cont In Process Unspecified. EDMS 19:11 Adonis Yates MD is Referral Physician. rn 19:40 Primary Nurse role handed off by Nereida Keating, RN 19:43 Patient did not have IV access during this emergency room visit. ha1 Administered Medications: No medications were administered Medication: 18:05 VIS not applicable for this client. db Outcome: 19:12 Discharge ordered by . rn 19:42 Discharged to home ambulatory, with family. ha1 19:42 Condition: stable 19:42 Discharge instructions given to patient, Instructed on discharge instructions, follow up and referral plans. medication usage, Demonstrated understanding of instructions, follow-up care, medications, Prescriptions given X 2. 19:44 Patient left the ED. ha1 Signatures: Dispatcher [employer] EDMS Nemesio Bell MD MD rn Marsh, Wendy Anne-Marie Jung RN RN 1 Nereida Keating RN RN db Jaco, Norma, RN RN vt1 Divine Cantrell Corrections: (The following items were deleted from the chart) 17:39 17:35 Pulse 76bpm; Resp 18bpm; Pulse Ox 98%; Temp 98.7F Oral; 72.57 kg; Height 5 ft. 4 nj1 in.; BMI: 27.4; Pain 0/10, Adult; nj 19:44 08/ 19:50 BP 157 / 77; Pulse 71bpm; Resp 16bpm; Spontaneous; Pulse Ox 100% RA; ha1 ha1
--- NOTE | 2023-07-07 19:13 | EDPHYS ---
Physician Documentation [facility] Name: John Moreno Age: 67 yrs Sex: Male : 1955 Arrival Date: 07/07/2023 Time: 17:19 Bed 15 Private MD: ED Physician Nemesio Bell HPI: 07/07 19:08 This 67 yrs old Male presents to ER via Ambulatory with complaints of Pain on rn the back of head. 19:08 The patient complains of pain to the forehead and left druze. The patient describes rn the headache as intermittent. Onset: The symptoms/episode began/occurred this morning. Severity of symptoms: At its worst the pain was mild, in the emergency department the pain has improved. The patient has experienced a previous episode. The patient has not recently seen a physician. Patient reports left-sided headache that began this morning, lasted for about 10 to 15 minutes, has had before but did not seek medical care. Reports pain already feels better. No focal neurological deficits. No fever. No vomiting. No vision changes. No speech changes.. Historical: - Allergies: 17:37 NKDA; nj1 - PMHx: 17:37 Hypertension; Hyperlipidemia; coronary atherosclerosis; nj1 - PSHx: 17:37 stents in legs; heart cath; cardiac bypass; Testicular surgery, left; nj1 - Immunization history:: Client reports having NOT received the Covid vaccine. - Social history:: Smoking status: Patient/guardian denies using tobacco, but has a distant history of tobacco abuse. - Family history:: not pertinent. - Hospitalizations: : No recent hospitalization is reported. ROS: 19:08 Constitutional: Negative for fever, chills, and weight loss, Eyes: Negative for injury, rn pain, redness, and discharge, Neck: Negative for injury, pain, and swelling, Cardiovascular: Negative for chest pain, palpitations, and edema, Respiratory: Negative for shortness of breath, cough, wheezing, and pleuritic chest pain, Abdomen/GI: Negative for abdominal pain, nausea, vomiting, diarrhea, and constipation, Back: Negative for injury and pain, MS/Extremity: Negative for injury and deformity, Skin: Negative for injury, rash, and discoloration, Neuro: Negative for weakness, numbness, tingling, and seizure. Exam: 19:08 Constitutional: This is a well developed, well nourished patient who is awake, alert, rn and in no acute distress. Head/Face: Normocephalic, atraumatic. Eyes: Pupils equal round and reactive to light, extra-ocular motions intact. Cardiovascular: Regular rate and rhythm. No pulse deficits. Respiratory: No increased work of breathing, no retractions or nasal flaring. Neuro: Awake and alert, GCS 15, oriented to person, place, time, and situation. Cranial nerves II-XII grossly intact. Motor strength 5/5 in all extremities. Sensory grossly intact. Cerebellar exam normal. Normal gait. Vital Signs: 17:35 BP 143 / 74; Pulse 76; Resp 18; Temp 98.7(O); Pulse Ox 98% ; Weight 72.57 kg; Height 5 nj1 ft. 4 in. ; Pain 0/10; 18:48 BP 143 / 77; Pulse 67; Resp 16; Pulse Ox 98% on R/A; db 19:43 BP 157 / 77; Pulse 71; Resp 16 S; Pulse Ox 100% on R/A; ha1 17:35 Body Mass Index 27.46 (72.57 kg, 162.56 cm) nj1 17:35 Pain Scale: Adult nj1 [place] Coma Score: 19:08 Eye Response: spontaneous(4). Motor Response: obeys commands(6). Verbal Response: rn oriented(5). Total: 15. MDM: 17:26 Patient medically screened. rn 19:08 Differential diagnosis: hypertensive headache, intracerebral hemorrhage, migraine, rn neoplasm, tension headache, trigeminal neuralgia, vasomotor headache. Data reviewed: vital signs, nurses notes, radiologic studies, CT scan, and as a result, I will discharge patient. Counseling: I had a detailed discussion with the patient and/or guardian regarding the historical points, exam findings, and any diagnostic results supporting the discharge/admit diagnosis, lab results, radiology results, the need for outpatient follow up, to return to the emergency department if symptoms worsen or persist or if there are any questions or concerns that arise at home. Special discussion: I discussed with the patient/guardian in detail that at this point there is no indication for admission to the hospital. It is understood, however, that if the symptoms persist or worsen the patient needs to return immediately for re-evaluation. Based on the history and exam findings, there is no indication for further emergent testing or inpatient evaluation. I discussed with the patient/guardian the need to see the neurologist for further evaluation of the symptoms. I discussed with the patient/guardian the need to see the primary care provider for further evaluation of the symptoms. ED course: Patient with normal neurological exam and currently no complaints. CT head is negative. Has had before and unilateral headache with sensitivity to scalp will DC home as trigeminal neuralgia and given return precautions.. 07/07 17:43 Order name: CT Head Brain wo Cont; Complete Time: 18:51 rn Administered Medications: No medications were administered Disposition Summary: 07/07/23 19:12 Discharge Ordered Location: Home rn Problem: new rn Symptoms: have improved rn Condition: Stable rn Diagnosis - Headache rn - Trigeminal neuralgia rn Followup: rn - With: Adonis Yates MD - When: As needed - Reason: Recheck today's complaints, Re-evaluation by your physician Discharge Instructions: - Discharge Summary Sheet rn - General Headache Without Cause rn - Trigeminal Neuralgia rn Forms: - Medication Reconciliation Form rn - Thank You Letter rn - Antibiotic returned goods sorter - Prescription Opioid Use rn - Patient Portal Instructions rn - Leadership Thank You Letter rn Prescriptions: - Carbamazepine 200 mg Oral Tablet - take 1 tablet by ORAL route every 12 hours; 20 tablet; Refills: 0, Product rn Selection Permitted - Medrol (Ezra) 4 mg Oral Tablets, Dose Pack - take 1 tablet by ORAL route as directed - follow package instructions; 1 rn packet; Refills: 0, Product Selection Permitted Signatures: Dispatcher [employer] EDNemesio Vides MD MD rn Jaco, Norma, RN RN nj1
[2023-07-07 19:56] VITALS: TEMP 98.7
[2023-07-07 19:58] VITALS: BP 157/77; O2SAT 100
== END 2023-07-07 19:44 | disposition home or self-care (01) ==
LOC: ER 17:19
DX: G50.0 Trigeminal neuralgia (principal); I10 Essential (primary) hypertension; Z95.1 Presence of aortocoronary bypass graft
CPT/HCPCS: 70450; 99283

== ENCOUNTER 2023-10-26 16:22 | Observation (INO) | payer OTHER ==
[2023-10-26] MEDS ORDERED: ASPIRIN 81 MG CHEWABLE TABLET ONE (17:27)
[2023-10-26] MEDS ORDERED: NITROGLYCERIN 0.4 MG/TAB SL ONE (17:27)
[2023-10-26 17:30] LABS: Absolute Lymphocytes (CBC) 2.1 K/uL (0.7-4.9); Hematocrit 40.4 % (39.6-49.0); Lymphocytes % 28.5 % (15.3-44.8); MPV 10.2 fL (7.6-11.3); Platelets 139 thou/uL (152-406); RBC Red Blood Cell Count 4.29 M/uL (4.33-5.43)
[2023-10-26 17:42] LABS: Albumin 3.6 g/dL (3.4-5.0); Bilirubin Direct 0.2 mg/dL (0-0.2); Bilirubin Indirect, Calculated 0.3 mg/dL (0.2-0.8); Bilirubin Total 0.5 mg/dL (0.2-1.0); Magnesium 2.1 mg/dL (1.6-2.4); Protein, Total 7.2 g/dL (6.4-8.2); Troponin High Sensitivity 5.4 pg/mL (<58.9)
--- NOTE | 2023-10-26 18:19 | RAD REPORT ---
EXAM DESCRIPTION: RADChest Single View10/26/2023 4:50 pm CLINICAL HISTORY: CHEST PAIN COMPARISON: Chest Pa And Lat (2 Views) dated 05/30/2023; Chest Single View dated 01/19/2023; Chest Pa And Lat (2 Views) dated 12/16/2021; Chest Pa And Lat (2 Views) dated 07/28/2021 TECHNIQUE: Portable AP view of the chest. FINDINGS: The lungs are clear. No pneumothorax or effusion. The cardiomediastinal contours are unre markable. IMPRESSION: No acute cardiopulmonary process.
[2023-10-26] MEDS ORDERED: ACETAMINOPHEN 500 MG TAB ONE (18:54)
--- NOTE | 2023-10-26 19:06 | ER ---
Nurse's Notes [facility] Name: John Moreno Age: 68 yrs Sex: Male : 1955 Arrival Date: 10/26/2023 Time: 16:22 Bed 19 Private MD: Diagnosis: Chest pain, unspecified Presentation: 10/26 16:32 Chief complaint: Patient states: R CP off/on for 4 hours. 1 episode of dizziness. ll1 Coronavirus screen: Client denies travel out of the [place] in the last 14 days. At this time, the client does not indicate any symptoms associated with coronavirus-19. Ebola Screen: Patient denies travel to an Ebola-affected area in the 21 days before illness onset. Initial Sepsis Screen: Does the patient meet any 2 criteria? No. Patient's initial sepsis screen is negative. Does the patient have a suspected source of infection? No. Patient's initial sepsis screen is negative. Risk Assessment: Do you want to hurt yourself or someone else? Patient reports no desire to harm self or others. Onset of symptoms was October 26, 2023. 16:32 Method Of Arrival: Ambulatory ll1 16:32 Acuity: JEFFRY 3 ll1 Triage Assessment: 16:33 General: Appears in no apparent distress. Behavior is calm, cooperative, appropriate ll1 for age. Pain: Complains of pain in R chest Quality of pain is described as aching, Is intermittent. Neuro: Reports dizziness. Cardiovascular: Reports chest pain, Chest pain is described as mild. Historical: - Allergies: 16:31 NKDA; ll1 - PMHx: 16:31 Hyperlipidemia; Hypertension; coronary atherosclerosis; ll1 - PSHx: 16:31 stents in legs; heart cath; cardiac bypass; Testicular surgery; ll1 - Immunization history:: Adult Immunizations up to date. - Social history:: Smoking status: Patient denies any tobacco usage or history of. Assessment: 17:07 Reassessment: No changes from previously documented assessment. Patient and/or family bp updated on plan of care and expected duration. Pain level reassessed. 10/27 08:48 Reassessment: attempted to call report to 2nd floor. charge nurse states there is a kc6 patient in the room that is assigned. [facility] Silver \T\ joss house keeper notified. 10:51 Reassessment: attempted to call report to 2nd floor. nurse marjorie did not answer at kc6 this time. 11:37 Reassessment: attempted to call report to 2nd floor. nurse unavailable. kc6 Vital Signs: 10/26 16:32 BP 137 / 78; Pulse 75; Resp 17; Temp 98.8; Pulse Ox 100% ; Weight 74.84 kg; Height 5 ll1 ft. 4 in. ; Pain 6/10; 16:32 Body Mass Index 28.32 (74.84 kg, 162.56 cm) ll1 16:32 Pain Scale: Adult ll1 ED Course: 16:24 Patient arrived in ED. mr 16:25 Hema Alvarez MD is Attending Physician. rt 16:31 Arm band placed on. ll1 16:33 Triage completed. ll1 16:38 EKG done, by ED staff, reviewed by Hema Alvarez MD. ap3 16:52 XRAY Chest (1 view) In Process Unspecified. EDMS 17:07 Patient placed in an exam room, on a stretcher. bp 17:19 Inserted saline lock: 22 gauge in right antecubital area, using aseptic technique. iw Blood collected. 17:[address], RN is Primary Nurse. bp 19:05 Sujit Vizcaino MD is Hospitalizing Provider. rt 10/27 07:51 Primary Nurse role handed off by Mendez Lane, CISCO jl7 12:20 Patient admitted, IV remains in place. kc6 Administered Medications: 10/26 17:31 Drug: Aspirin PO Chewable Tablet 243 mg PO once; 81 mg tablets x 3 Route: PO; bp 17:31 Drug: Nitroglycerin Sublingual 0.4 mg Sublingual once; every five minute if needed x3 bp Route: Sublingual; 18:59 Drug: Acetaminophen PO 1000 mg PO once Route: PO; bp Outcome: 19:06 Decision to Hospitalize by Provider. rt 10/27 12:20 Admitted to Med/surg accompanied by tech, via wheelchair, room 208, with chart, Report kc6 called to Marjorie PECK Condition: improved Instructed on the need for admit, 12:20 Patient left the ED. [facility] Signatures: Dispatcher [employer] EDTX Luh Peters, Reg Reg mr Deepa Fontana RN RN Charlie Oglesby RN RN jl7 Mendez Lane RN RN Adrianne Chaudhry RN RN ap3 Shawn Santos RN RN ll1 Taylor Rudolph RN RN kc6 Hema Alvarez MD MD rt Corrections: (The following items were deleted from the chart) 10/26 16:32 16:31 PSHx: Testicular surgery; ll1 ll1 10/27 08:54 08:48 Reassessment: attempted to call report to 2nd floor. charge nurse states there is kc6 a patient in the room that is assigned. [employer]IS[employer] Silver notified kc6
--- NOTE | 2023-10-26 19:07 | EDPHYS ---
Physician Documentation [facility] Name: John Moreno Age: 68 yrs Sex: Male : 1955 Arrival Date: 10/26/2023 Time: 16: Bed 19 Private MD: ED Physician Hema Alvarez HPI: 10/26 16:45 This 68 yrs old Male presents to ER via Ambulatory with complaints of Chest rt Pain. 16:45 Patient presents to the ED with chest pain started about 4 hours prior to arrival. It rt occurred when he was mowing his lawn. Reports brief episode of dizziness, none currently. He does have a history of a bypass surgery in the past. Denies other acute complaints, symptoms are moderate in severity, no other aggravating or alleviating factors.. Historical: - Allergies: 16:31 NKDA; ll1 - PMHx: 16:31 Hyperlipidemia; Hypertension; coronary atherosclerosis; ll1 - PSHx: 16:31 stents in legs; heart cath; cardiac bypass; Testicular surgery; ll1 - Immunization history:: Adult Immunizations up to date. - Social history:: Smoking status: Patient denies any tobacco usage or history of. ROS: 16:45 Constitutional: Negative for fever, chills, and weight loss, Respiratory: Negative for rt shortness of breath, cough, wheezing, and pleuritic chest pain, Abdomen/GI: Negative for abdominal pain, nausea, vomiting, diarrhea, and constipation, MS/Extremity: Negative for injury and deformity, Skin: Negative for injury, rash, and discoloration, Psych: Negative for depression, anxiety, suicide ideation, homicidal ideation, and hallucinations, 16:45 Cardiovascular: Positive for chest pain, Negative for edema, 16:45 Neuro: Positive for dizziness, Negative for syncope, Exam: 16:45 Constitutional: This is a well developed, well nourished patient who is awake, alert, rt and in no acute distress. Head/Face: Normocephalic, atraumatic. Chest/axilla: Normal chest wall appearance and motion. Nontender with no deformity. No lesions are appreciated. Cardiovascular: Regular rate and rhythm with a normal S1 and S2. No gallops, murmurs, or rubs. Normal PMI, no JVD. No pulse deficits. Respiratory: Lungs have equal breath sounds bilaterally, clear to auscultation and percussion. No rales, rhonchi or wheezes noted. No increased work of breathing, no retractions or nasal flaring. Abdomen/GI: Soft, non-tender, with normal bowel sounds. No distension or tympany. No guarding or rebound. No evidence of tenderness throughout. Skin: Warm, dry with normal turgor. Normal color with no rashes, no lesions, and no evidence of cellulitis. MS/ Extremity: Pulses equal, no cyanosis. Neurovascular intact. Full, normal range of motion. Neuro: Awake and alert, GCS 15, oriented to person, place, time, and situation. Cranial nerves II-XII grossly intact. Motor strength 5/5 in all extremities. Sensory grossly intact. Cerebellar exam normal. Normal gait. Psych: Awake, alert, with orientation to person, place and time. Behavior, mood, and affect are within normal limits. 16:45 ECG was reviewed by the Attending Physician. Vital Signs: 16:32 BP 137 / 78; Pulse 75; Resp 17; Temp 98.8; Pulse Ox 100% ; Weight 74.84 kg; Height 5 ll1 ft. 4 in. ; Pain 6/10; 16:32 Body Mass Index 28.32 (74.84 kg, 162.56 cm) ll1 16:32 Pain Scale: Adult ll1 MDM: 16:34 Patient medically screened. rt 19:06 Differential diagnosis: ACS, chest wall pain, pneumonia, pneumothorax. HEART Score: rt History: Moderately Suspicious (1), ECG: Normal (0), Age: > or = 65 years (2), Risk Factors: > or = 3 Risk factors for atherosclerotic disease (2), Troponin: < or = 1 x Normal Limit (0), Total Score = 5. The patient was given aspirin in the Emergency Department. Data reviewed: vital signs, nurses notes, lab test result(s), EKG, radiologic studies. Consideration of Admission/Observation Patient was admitted/placed on observation. Management of patient was discussed with the following: Hospitalist: Agrees to admit. I considered the following discharge prescriptions or medication management in the emergency department Medications were administered in the Emergency Department. See MAR. Independent interpretation of the following test(s) in the Emergency Department X-Ray: My interpretation is No consolidation seen on interpretation of x-ray images. Test considered but Not performed: CT: Low suspicion for PE, CT angiogram not indicated. Care significantly affected by the following chronic conditions: Coronary artery disease. Counseling: I had a detailed discussion with the patient and/or guardian regarding the historical points, exam findings, and any diagnostic results supporting the discharge/admit diagnosis, lab results, radiology results, the need for further work-up and treatment in the hospital. Response to treatment: There is no appreciated change of the patient's symptoms at this time. 10/26 16:40 Order name: Basic Metabolic Panel; Complete Time: 17:48 rt 10/26 16:40 Order name: CBC with Diff; Complete Time: 17:48 rt 10/26 16:40 Order name: LFT's; Complete Time: 17:48 rt 10/26 16:40 Order name: Magnesium; Complete Time: 17:48 rt 10/26 16:40 Order name: Troponin HS; Complete Time: 17:48 rt 10/26 20:09 Order name: Urinalysis w/ reflexes EDMS 10/26 20:09 Order name: CBC with Automated Diff EDMS 10/26 20:09 Order name: CBC with Automated Diff EDMS 10/26 20:09 Order name: Comprehensive Metabolic Panel EDMS 10/26 20:09 Order name: Comprehensive Metabolic Panel EDMS 10/26 20:09 Order name: Troponin High Sensitivity EDMS 10/26 20:09 Order name: Troponin High Sensitivity EDMS 10/26 20:09 Order name: Troponin High Sensitivity EDMS 10/26 20:09 Order name: Troponin High Sensitivity EDMS 10/26 16:40 Order name: XRAY Chest (1 view); Complete Time: 18:28 rt 10/26 16:38 Order name: EKG; Complete Time: 16:39 ll1 10/26 16:38 Order name: EKG - Nurse/Tech; Complete Time: 16:38 ll1 10/26 16:40 Order name: Cardiac monitoring; Complete Time: 17:23 rt 10/26 16:40 Order name: IV Saline Lock; Complete Time: 17:18 rt 10/26 16:40 Order name: Labs collected and sent; Complete Time: 17:18 rt 10/26 16:40 Order name: O2 Per Protocol; Complete Time: 17:23 rt 10/26 16:40 Order name: O2 Sat Monitoring; Complete Time: 17:23 rt EC:45 Rate is 75 beats/min. Rhythm is regular, Normal Sinus Rhythm with No ectopy. QRS [place] rt is Normal. GA interval is normal. QRS interval is normal. QT interval is normal. No Q waves. T waves are Normal. No ST changes noted. Administered Medications: 17:31 Drug: Aspirin PO Chewable Tablet 243 mg PO once; 81 mg tablets x 3 Route: PO; bp 17:31 Drug: Nitroglycerin Sublingual 0.4 mg Sublingual once; every five minute if needed x3 bp Route: Sublingual; 18:59 Drug: Acetaminophen PO 1000 mg PO once Route: PO; bp Disposition Summary: 10/26/23 19:06 Hospitalization Ordered Notes: Hospitalization Status: Observation rt Provider: Sujit Vizcaino rt Condition: Stable rt Problem: new rt Symptoms: are unchanged rt Bed/Room Type: Standard rt Location: Telemetry/MedSurg (Inpatient)(10/27/23 10:29) sp Room Assignment: [facility] [place](10/27/23 10:29) sp Diagnosis - Chest pain, unspecified rt Forms: - Medication Reconciliation Form rt - SBAR form rt - Leadership Thank You Letter rt Signatures: Dispatcher [employer] EDMS Mulu Everett Cindy, RN RN cg Mendez Lane RN RN bp Shawn Santos RN RN ll1 Hema Alvarez MD MD rt Corrections: (The following items were deleted from the chart) 16:32 16:31 PSHx: Testicular surgery; ll1 ll1 21:48 19:06 Telemetry/MedSurg (observation) rt cg 21:48 19:06 rt cg 10/27 08:39 10/26 21:48 [facility] ER HOLD cg sp 10/27 08:39 10/26 21:48 ERHOLD- cg sp 10/27 09:00 08:39 Telemetry/MedSurg (observation) sp sp 09:00 08:39 214 sp sp 09: 09:00 HLD8 sp sp 10: 09:00 [facility] ER HOLD sp sp 10: 09:04 ERHOLD- sp sp
--- NOTE | 2023-10-26 20:03 | P.HP ---
Certification for Inpatient Patient admitted to: Observation With expected LOS: <2 Midnights Practitioner: I am a practitioner with admitting privileges, knowledge of patient current condition, hospital course, and medical plan of care. Services: Services provided to patient in accordance with Admission requirements found in Title 42 Section 412.3 of the Code of Federal Regulations Patient History Date of Service: 10/26/23 Reason for admission: Chest Pain History of Present Illness: 68 yrs old Male with past medical history of hypertension, hyperlipidem ia, CAD, status post CABG, refractory disease, status post stents in the legs, testicular surgery, came to ER with chest discomfort which has been going on since evening . Pain is located in the left side of the chest and started when he was mowing the lawn. He felt dizzy and also started on chest pain which is pressure-like feeling retrosternal location with no radiation. Denies any diaphoresis. No nausea vomiting or diarrhea. No fever or chills. At the time of interview patient's pain is better Patient was assessed in the ER and was admitted for further management of chest discomfort Allergies No Known Allergies Allergy (Verified 08/30/22 10:16) Home Medications: Amlodipine Besylate 5 mg PO DAILY 08/30/22 Aspirin [Vazalore] 81 mg PO DAILY 08/30/22 Atorvastatin Calcium [Lipitor] 40 mg PO BEDTIME 08/30/22 Bifidobacterium Infantis [Align] 4 mg PO DAILY 08/30/22 Losartan Potassium 50 mg PO DAILY 08/30/22 Metoprolol Succinate [Toprol Xl] 25 mg PO DAILY 08/30/22 Mirtazapine 30 mg PO BEDTIME 08/30/22 Pantoprazole Sodium [Protonix] 20 mg PO DAILY 08/30/22 Polyethylene Glycol 3350 [Miralax] 17 gm PO BEDTIME 08/30/22 Psyllium Husk (with Sugar) [Metamucil Packet] 3.4 gm PO BEDTIME 08/30/22 - Past Medical/Surgical History Diabetic: No -: Hypertension -: Hyperlipidemia -: GERD -: Anxiety -: PAD -: Alcohol use -: CAD with CABG -: PAD -: CABG 2020 -: Stents to lower extremities Psychosocial/ Personal History: Patient is - Social History Alcohol use: Yes CD- Drugs: No Caffeine use: No Review of Systems 10-point ROS is otherwise unremarkable General: Weakness, Unremarkable Eyes: Unremarkable ENT: Unremarkable Respiratory: Unremarkable Cardiovascular: Chest Pain Gastrointestinal: Unremarkable Genitourinary: Unremarkable Musculoskeletal: Unremarkable Integumentary: Unremarkable Neurological: Unremarkable Physical Examination - Vital Signs Temperature: 98.4 F Blood Pressure: 148/84 Pulse: 78 Respirations: 18 Pulse Ox (%): 98 - Physical Exam General: Alert, In no apparent distress, Oriented x3, Cooperative HEENT: Atraumatic, Normocephalic Neck: Supple, No Thyromegaly, No LAD Respiratory: Clear to auscultation bilaterally, Normal air movement Cardiovascular: No edema, Regular rate/rhythm, Normal S1 S2, No rubs Capillary refill: <2 Seconds Gastrointestinal: Soft and benign, W/out hepatosplenomegaly, No ascites, No tenderness Musculoskeletal: No clubbing, No swelling Integumentary: No rashes, No breakdown Neurological: Normal speech, Normal strength at 5/5 x4 extr, Normal tone, Sensation intact, Cranial nerves 3-12 intact Lymphatics: No axilla or inguinal lymphadenopathy - Studies Laboratory Data (last 24 hrs) 10/26/23 10/26/23 17:15 17:15 WBC 7.50 Hgb 13.5 L Hct 40.4 Plt Count 139 L Sodium 138 Potassium 4.0 BUN 15 Creatinine 1.08 Glucose 128 H Magnesium 2.1 Total Bilirubin 0.5 AST 12 L ALT 24 Alkaline Phosphatase 96 Assessment and Plan - Problems (Diagnosis) (1) Unstable angina Current Visit: Yes Status: Acute Plan: Monitor telemetry EKG showed no acute changes at this time Will trend cardiac enzymes Started on aspirin and statin Continue home medications Cardiology consulted Will get an echocardiogram (2) History of CAD (coronary artery disease) Current Visit: Yes Status: Chronic Plan: History of CAD Status post CABG Continue home medications Monitor closely on telemetry (3) PAD (peripheral artery disease) Current Visit: Yes Status: Chronic Plan: Status post stents in the legs No acute pain reported Continue home medications Continue aspirin statin (4) Hypertension Current Visit: Yes Status: Chronic Plan: Home medications continued and titrate as needed Hydralazine as needed Discharge Plan: Home Plan to discharge in: 24 Hours - Advance Directives Does patient have a Living Will: No Does patient have a Durable POA for Healthcare: No Time Spent Managing Pts Care (In Minutes): 47
[2023-10-26] MEDS ORDERED: ONDANSETRON 4 MG/2 ML VIAL IV PRN (20:05)
[2023-10-26] MEDS ORDERED: ACETAMINOPHEN 500 MG TAB PO PRN (20:05)
[2023-10-26] MEDS ORDERED: MORPHINE 2 MG/ML SYR IV PRN (20:08)
[2023-10-26] MEDS ORDERED: NITROGLYCERIN 0.4 MG/TAB SL PRN (20:08)
[2023-10-26] MEDS ORDERED: HYDROCODONE/APAP 5/325 MG TAB PO PRN (20:08)
[2023-10-26] MEDS: MIRTAZAPINE 15 MG TAB PO SCH (21:00)
[2023-10-27 01:27] LABS: Specific Gravity 1.005 (1.005-1.030); Urine Bilirubin NEGATIVE (Negative); Urine Blood Negative (Negative); Urine Clarity Clear (Clear); Urine Color Colorless (Yellow); Urine Glucose NEGATIVE (Negative); Urine Protein NEGATIVE (Negative); Urine Urobilinogen Normal (Normal); Urine pH 6.5 (5.0-7.0)
[2023-10-27] MEDS: ATORVASTATIN 40 MG TAB PO SCH ×2 (02:00→20:12)
[2023-10-27] MEDS: POLYETHYL GLY 3350 17 GM/DOSE PO SCH ×2 (02:00→20:12)
[2023-10-27] MEDS ORDERED: ATORVASTATIN 40 MG TAB ONE (02:15)
[2023-10-27] MEDS ORDERED: POLYETHYL GLY 3350 17 GM/DOSE ONE (02:16)
[2023-10-27 05:25] VITALS: BMI 28.3
[2023-10-27 05:39] LABS: Absolute Lymphocytes (CBC) 2.9 K/uL (0.7-4.9); Hematocrit 39.5 % (39.6-49.0); MCV 93.9 fL (80-100); MPV 10.1 fL (7.6-11.3); Platelets 133 thou/uL (152-406); RBC Red Blood Cell Count 4.21 M/uL (4.33-5.43)
[2023-10-27 05:55] LABS: Albumin 3.4 g/dL (3.4-5.0); Bilirubin Total 0.6 mg/dL (0.2-1.0); Potassium 3.7 mEq/L (3.5-5.1); Protein, Total 6.7 g/dL (6.4-8.2)
[2023-10-27] MEDS: PANTOPRAZOLE 40MG TABLET PO SCH (07:30)
[2023-10-27 08:08] VITALS: O2SAT 98
[2023-10-27] MEDS: ENOXAPARIN 40 MG/0.4 ML SQ SCH (09:00)
[2023-10-27] MEDS: BIFIDOBACTERIUM INFANTIS 4 MG PO SCH (09:00)
[2023-10-27] MEDS: METOPROLOL XL 25 MG TAB PO SCH (09:00)
[2023-10-27] MEDS: LOSARTAN POTASSIUM 50 MG TABLET PO SCH (09:00)
[2023-10-27] MEDS: ASPIRIN EC 81 MG TAB PO SCH (09:00)
[2023-10-27] MEDS: AMLODIPINE 5 MG TAB PO SCH (09:00)
[2023-10-27] MEDS ORDERED: PANTOPRAZOLE 40MG TABLET PO ONE (09:18)
[2023-10-27] MEDS ORDERED: AMLODIPINE 5 MG TAB ONE (09:19)
[2023-10-27] MEDS ORDERED: ASPIRIN EC 81 MG TAB PO ONE (09:19)
[2023-10-27] MEDS ORDERED: METOPROLOL TAR 25 MG TAB ONE (09:19)
[2023-10-27] MEDS ORDERED: ENOXAPARIN 40 MG/0.4 ML SQ ONE (09:20)
[2023-10-27] MEDS ORDERED: LOSARTAN POTASSIUM 50 MG TABLET ONE (09:20)
--- NOTE | 2023-10-27 14:03 | P.PN ---
Subjective Date of Service: 10/27/23 Chief Complaint: Chest Pain Pt is resting comfortably in bed. He denies any chest pain or SOB. Waiting for Cardiology eval. No complaints. Review of Systems Unremarkable General: Unremarkable Eyes: Unremarkable ENT: Unremarkable Respiratory: Unremarkable Cardiovascular: Unremarkable Gastrointestinal: Unremarkable Genitourinary: Unremarkable Musculoskeletal: Unremarkable Integumentary: Unremarkable Neurological: Unremarkable Lymphatics: Unremarkable Physical Examination - Vital Signs Temperature: 98.6 F Blood Pressure: 119/83 Pulse: 77 Respirations: 18 Pulse Ox (%): 98 - Physical Exam General: Alert, In no apparent distress, Oriented x3 HEENT: Atraumatic, Normocephalic, PERRLA Neck: Supple, 2+ carotid pulse no bruit Respiratory: Clear to auscultation bilaterally, Normal air movement Cardiovascular: No edema, Normal pulses, Regular rate/rhythm, Normal S1 S2 Capillary refill: <2 Seconds Gastrointestinal: Normal bowel sounds, Soft and benign, Non-distended Musculoskeletal: No clubbing, No swelling Integumentary: No rashes, No breakdown Neurological: Normal gait, Normal speech, Normal strength at 5/5 x4 extr, Normal tone Lymphatics: No axilla or inguinal lymphadenopathy - Studies Laboratory Data (last 24 hrs) 10/26/23 10/26/23 17:15 17:15 WBC 7.50 Hgb 13.5 L Hct 40.4 Plt Count 139 L Sodium 138 Potassium 4.0 BUN 15 Creatinine 1.08 Glucose 128 H Magnesium 2.1 Total Bilirubin 0.5 AST 12 L ALT 24 Alkaline Phosphatase 96 Assessment And Plan - Plan Chest pain: Will r/o ACS. Troponin is 3.8 <- 5.4 <- 5.1. Continue LUDWIN therapy. Waiting for Cardiology eval. CAD s/p CABG. will continue home med. PAD: Will continue aspirin and statin Htn: continue home med. DVT ppx: SCD Discharge Plan: Home Plan to discharge in: 24 Hours - Code Status/Comfort Care Code Status Assessed: Yes
--- NOTE | 2023-10-27 15:07 | EKG ---
Test Date: 2023-10-26 Test Time: 16:35:58 Unit Secy: ALP MEASUREMENT RESULTS: Intervals: Rate: 75 UT: 146 QRSD: 88 QT: 360 QTc: 402 Tranquillity: P: 38 UT: 146 QRS: 20 T: 36 INTERPRETIVE STATEMENTS: Normal sinus rhythm Normal ECG Compared to ECG 01/19/2023 18:12:01 Myocardial infarct finding no longer present Electronically Signed On 10-27-23 15:06:33 MUSIC INSTRUCTOR by Christiano Miranda
[2023-10-27] MEDS: MIRTAZAPINE 15 MG TAB PO SCH (20:12)
[2023-10-28 03:36] LABS: Absolute Lymphocytes (CBC) 3.3 K/uL (0.7-4.9); Hematocrit 40.5 % (39.6-49.0); Lymphocytes % 40.6 % (15.3-44.8); MCV 94.1 fL (80-100); MPV 10.2 fL (7.6-11.3); Platelets 148 thou/uL (152-406)
[2023-10-28 04:06] LABS: Potassium 3.6 mEq/L (3.5-5.1)
[2023-10-28] MEDS: PANTOPRAZOLE 40MG TABLET PO SCH ×2 (07:30)
[2023-10-28] MEDS: BIFIDOBACTERIUM INFANTIS 4 MG PO SCH (09:00)
[2023-10-28] MEDS: METOPROLOL XL 25 MG TAB PO SCH (10:00)
[2023-10-28] MEDS: ENOXAPARIN 40 MG/0.4 ML SQ SCH (10:00)
[2023-10-28] MEDS: LOSARTAN POTASSIUM 50 MG TABLET PO SCH (10:00)
[2023-10-28] MEDS: ASPIRIN EC 81 MG TAB PO SCH (10:01)
[2023-10-28] MEDS: AMLODIPINE 5 MG TAB PO SCH (10:01)
[2023-10-28] MEDS ORDERED: PANTOPRAZOLE 40MG TABLET PO ONE (10:05)
--- NOTE | 2023-10-28 11:56 | P.DS ---
Admission Date: 10/26/23 Discharge Date: 10/28/23 Disposition: ROUTINE DISCHARGE Discharge Condition: GOOD Reason for Admission: Chest Pain Brief History of Present Illness: 68 yrs old Male with past medical history of hypertension, hyperlipidemia, CAD, status post CABG, refractory disease, status post stents in the legs, testicular surgery, came to ER with chest discomfort which has been going on since evening . Pain is located in the left side of the chest and started when he was mowing the lawn. He felt dizzy and also started on chest pain which is pressure-like feeling retrosternal location with no radiation. Denies any diaphoresis. No nausea vomiting or diarrhea. No fever or chills. At the time of interview patient's pain is better Patient was assessed in the ER and was admitted for further management of chest discomfort Hospital Course: Pt is a 68 yrs old Male with past medical history of hypertension, hyperlipidemia, CAD, status post CABG, refractory disease, status post stents in the legs, and testicular surgery who presented win the ER with chest discomfort. The chest discomfort was located on the left side of the chest and pressure-like in nature. It started when he was mowing the lawn. We admitted pt to rule out ACS. troponin was negative x 3. The chest pain resolved and we advised pt to continue home meds and follow up with Cardiology within 1 week. He was in NAD prior to discharge. Vital Signs/Physical Exam: Temp Pulse Resp BP Pulse Ox 97.9 F 73 14 139/78 96 10/28/23 08:00 10/28/23 10:01 10/28/23 08:00 10/28/23 10:01 10/28/23 08:00 Laboratory Data at Discharge: WBC 8.10 thou/uL (4.3-10.9) 10/28/23 03:00 Hgb 13.3 g/dL (13.6-17.9) L 10/28/23 03:00 Hct 40.5 % (39.6-49.0) 10/28/23 03:00 Plt Count 148 thou/uL (152-406) L 10/28/23 03:00 Sodium 137 mEq/L (136-145) 10/28/23 03:00 Potassium 3.6 mEq/L (3.5-5.1) 10/28/23 03:00 BUN 14 mg/dL (7-18) 10/28/23 03:00 Creatinine 0.95 mg/dL (0.70-1.30) 10/28/23 03:00 Glucose 93 mg/dL (74-106) 10/28/23 03:00 Magnesium 2.1 mg/dL (1.6-2.4) 10/26/23 17:15 Total Bilirubin 0.6 mg/dL (0.2-1.0) 10/27/23 05:03 AST 13 U/L (15-37) L 10/27/23 05:03 ALT 21 U/L (16-61) 10/27/23 05:03 Alkaline Phosphatase 78 U/L (45-117) 10/27/23 05:03 Home Medications: Amlodipine Besylate 5 mg PO DAILY 08/30/22 Aspirin [Vazalore] 81 mg PO DAILY 08/30/22 Atorvastatin Calcium [Lipitor] 40 mg PO BEDTIME 08/30/22 Bifidobacterium Infantis [Align] 4 mg PO DAILY 08/30/22 Losartan Potassium 50 mg PO DAILY 08/30/22 Metoprolol Succinate [Toprol Xl*] 25 mg PO DAILY 08/30/22 Mirtazapine 30 mg PO BEDTIME 08/30/22 Pantoprazole Sodium [Protonix] 20 mg PO DAILY 08/30/22 Polyethylene Glycol 3350 [Miralax] 17 gm PO BEDTIME 08/30/22 Psyllium Husk (with Sugar) [Metamucil Packet] 3.4 gm PO BEDTIME 08/30/22 Physician Discharge Instructions: Continue ad leslie activity. Continue home meds as prescribed. Follow up PCP and Cardiology within 1 week Diet: AHA Activity: Ad leslie Followup: Edilson Pickett DO [Primary Care Provider] -
[2023-10-28 12:17] VITALS: BP 125/68; TEMP 98.2
== END 2023-10-28 14:19 | disposition home or self-care (01) ==
LOC: ER 16:22 → ERHOLD 20:13 → 2ND 10-27 12:07
PROVIDERS: ADMIT Family Medicine; ATTEND Hospitalist
DX: I20.0 Unstable angina (principal); I10 Essential (primary) hypertension; I25.10 Atherosclerotic heart disease of native coronary artery without angina pectoris; E78.5 Hyperlipidemia, unspecified; Z95.1 Presence of aortocoronary bypass graft; I73.9 Peripheral vascular disease, unspecified
CPT/HCPCS: 93005; 85025 ×3; 80048 ×2; 36415 ×2; 83735; 80076; 81003; 84484 ×4; 80053; 71045; 99285; J1650 ×2; G0378 ×5

== ENCOUNTER 2024-04-19 20:49 | Emergency (ER) | payer OTHER ==
[2024-04-19 21:42] LABS: Specific Gravity 1.006 (1.005-1.030); Urine Bilirubin NEGATIVE (Negative); Urine Blood Negative (Negative); Urine Clarity Clear (Clear); Urine Color Colorless (Yellow); Urine Glucose NEGATIVE (Negative); Urine Ketones NEGATIVE (Negative); Urine Microscopic Reflex YN NO UMIC; Urine Nitrite NEGATIVE (Negative); Urine Protein NEGATIVE (Negative); Urine Urobilinogen Normal (Normal)
[2024-04-19 21:45] LABS: Absolute Basophils 0.1 K/uL (0-0.5); Absolute Eosinophils 0.1 K/uL (0-0.5); Absolute Lymphocytes (CBC) 2.7 K/uL (0.7-4.9); Absolute Monocytes 0.9 K/uL (0.1-1.3); Absolute Neutrophil 5.3 K/uL (1.8-8.0); Basophils % 0.6 % (0-1.3); Eosinophils % 1.1 % (0-4.4); Hematocrit 40.2 % (39.6-49.0); Lymphocytes % 29.7 % (15.3-44.8); MCH 31.4 pg (27.0-35.0); MCHC 32.4 g/dL (32.0-36.0); MCV 97.1 fL (80-100); Monocytes % 10.1 % (3.3-12.3); Neutrophils % 58.5 % (41.7-73.7); Platelets 153 thou/uL (152-406); RBC Red Blood Cell Count 4.14 M/uL (4.33-5.43)
[2024-04-19 21:58] LABS: ALT/SGPT 26 U/L (16-61); Albumin 3.7 g/dL (3.4-5.0); Albumin/Globulin Ratio 1.1 (1.1-1.8); Alkaline Phosphatase 87 U/L (45-117); Anion Gap 9.2 mEq/L (5.0-15.0); BUN Blood Urea Nitrogen 17 mg/dL (7-18); Bicarbonate 29 mEq/L (21-32); Bilirubin Total 0.6 mg/dL (0.2-1.0); Globulin 3.3 g/dL (2.3-3.5); Glomerular Filtration Rate 88 ml/min (=/>90); Glucose Level 118 mg/dL (74-106); Lipase 40 U/L (13-75); Potassium 4.2 mEq/L (3.5-5.1); Sodium Level 133 mEq/L (136-145)
[2024-04-19 22:36] LABS: AST/SGOT < 10 U/L (15-37)
[2024-04-20] MEDS ORDERED: ONDANSETRON 4 MG/2 ML VIAL ONE (00:05)
[2024-04-20] MEDS ORDERED: MORPHINE 4 MG/ML SYR ONE (00:06)
--- NOTE | 2024-04-20 00:25 | EDPHYS ---
Physician Documentation [facility] Name: John Moreno Age: 68 yrs Sex: Male : 1955 Arrival Date: 04/19/2024 Time: 20:49 Bed 20 Private MD: ED Physician Hema Alvarez HPI: 04/19 21:15 This 68 yrs old Male presents to ER via Ambulatory with complaints of rt Testicular Pain. 21:15 Patient presents to the ED with a right groin, right testicular pain for the past 3 rt weeks, worse over the past 4 days. Denies nausea, vomiting,, difficulty urine, dysuria. Denies other acute complaints, symptoms are moderate in severity, no other aggravating alleviating factors.. Historical: - Allergies: 21:07 NKDA; as6 - PMHx: 21:07 coronary atherosclerosis; Hyperlipidemia; Hypertension; as6 - PSHx: 21:07 heart cath; cardiac bypass; stents in legs; Testicular surgery; as6 - Immunization history:: Adult Immunizations up to date. - Infectious Disease History:: Denies. - Social history:: Smoking status: Patient denies any tobacco usage or history of. - Family history:: not pertinent. ROS: 21:15 Constitutional: Negative for fever, chills, and weight loss, Cardiovascular: Negative rt for chest pain, palpitations, and edema, Respiratory: Negative for shortness of breath, cough, wheezing, and pleuritic chest pain, Abdomen/GI: Negative for abdominal pain, nausea, vomiting, diarrhea, and constipation, MS/Extremity: Negative for injury and deformity, Skin: Negative for injury, rash, and discoloration, Neuro: Negative for headache, weakness, numbness, tingling, and seizure, 21:15 : Positive for testicular pain Negative for difficulty urinating, Exam: 21:15 Constitutional: This is a well developed, well nourished patient who is awake, alert, rt and in no acute distress. Head/Face: Normocephalic, atraumatic. Chest/axilla: Normal chest wall appearance and motion. Nontender with no deformity. No lesions are appreciated. Cardiovascular: Regular rate and rhythm with a normal S1 and S2. No gallops, murmurs, or rubs. Normal PMI, no JVD. No pulse deficits. Respiratory: Lungs have equal breath sounds bilaterally, clear to auscultation and percussion. No rales, rhonchi or wheezes noted. No increased work of breathing, no retractions or nasal flaring. Abdomen/GI: Soft, non-tender, with normal bowel sounds. No distension or tympany. No guarding or rebound. No evidence of tenderness throughout. Male : Normal genitalia with no discharge or lesions. Skin: Warm, dry with normal turgor. Normal color with no rashes, no lesions, and no evidence of cellulitis. MS/ Extremity: Pulses equal, no cyanosis. Neurovascular intact. Full, normal range of motion. Neuro: Awake and alert, GCS 15, oriented to person, place, time, and situation. Cranial nerves II-XII grossly intact. Motor strength 5/5 in all extremities. Sensory grossly intact. Cerebellar exam normal. Normal gait. Vital Signs: 21:05 BP 168 / 84; Pulse 76; Resp 16; Temp 97.4; Pulse Ox 100% ; Weight 74.84 kg; Height 5 as6 ft. 4 in. ; Pain 8/10; 21:30 BP 148 / 78; Pulse 72; Resp 19; Pulse Ox 98% on R/A; kd3 22:21 BP 140 / 86; Pulse 69; Resp 17; Pulse Ox 98% on R/A; kd3 23:08 BP 144 / 84; Pulse 77; Resp 16; Pulse Ox 98% on R/A; kd3 04/20 00:11 BP 146 / 78; Pulse 79; Resp 16; Pulse Ox 100% on R/A; kd3 04/19 21:05 Body Mass Index 28.32 (74.84 kg, 162.56 cm) as6 04/19 21:05 Pain Scale: Adult as6 MDM: 04/19 21:08 Patient medically screened. rt 04/20 00:27 Differential diagnosis: Hernia, hydrocele. Data reviewed: vital signs, nurses notes, rt lab test result(s), radiologic studies. I considered the following discharge prescriptions or medication management in the emergency department Medications were administered in the Emergency Department. See MAR. Independent interpretation of the following test(s) in the Emergency Department CT Scan: My interpretation is No bowel obstruction seen on interpretation of CT scan images. Test considered but Not performed: Ultrasound Symptoms not consistent with torsion, ultrasound not indicated. Care significantly affected by the following chronic conditions: Hypertension. Counseling: I had a detailed discussion with the patient and/or guardian regarding the historical points, exam findings, and any diagnostic results supporting the discharge/admit diagnosis, lab results, radiology results, the need for outpatient follow up, to return to the emergency department if symptoms worsen or persist or if there are any questions or concerns that arise at home. Response to treatment: the patient's symptoms have markedly improved after treatment. 04/19 21:14 Order name: CBC with Diff; Complete Time: :38 rt 04/19 21:14 Order name: CMP; Complete Time: :38 rt 04/19 21:14 Order name: Lipase; Complete Time: :38 rt 04/19 21:14 Order name: Urinalysis w/ reflexes; Complete Time: :38 rt 04/19 21:14 Order name: CT Abd/Pelvis - IV Contrast Only rt 04/19 21:14 Order name: IV Saline Lock; Complete Time: :29 rt 04/19 21:14 Order name: Labs collected and sent; Complete Time: :29 rt Administered Medications: 00:11 Drug: morphine IVP or IV 4 mg IVP once over 4 mins Route: IVP; Infused Over: 4 mins; kd3 Site: right antecubital; 00:32 Follow up: Response: No adverse reaction; Pain is decreased kd3 00:11 Drug: Ondansetron IVP 4 mg IVP once; over 2 minutes Route: IVP; Site: right antecubital;kd3 00:32 Follow up: Response: No adverse reaction kd3 Disposition Summary: 04/20/24 00:24 Discharge Ordered Notes: Location: Home rt Problem: new rt Symptoms: have improved rt Condition: Stable rt Diagnosis - Hydrocele, unspecified rt Followup: rt - With: Garcia Gomez MD - When: 2 - 3 days - Reason: Discharge Instructions: - Discharge Summary Sheet rt - Hydrocele, Adult rt Forms: - Medication Reconciliation Form rt - Antibiotic Education rt - Prescription Opioid Use rt - Patient Portal Instructions rt - Leadership Thank You Letter rt Signatures: Dispatcher [employer] Charles Bloom RN RN as6 Agnes Washington RN RN kd3 Hema Alvarez MD MD rt
--- NOTE | 2024-04-20 00:25 | ER ---
Nurse's Notes [facility] Name: John Moreno Age: 68 yrs Sex: Male : 1955 Arrival Date: 04/19/2024 Time: 20:49 Bed 20 Private MD: Diagnosis: Hydrocele, unspecified Presentation: 04/19 21:05 Chief complaint: Patient states: pelvic/testicular pain. Coronavirus screen: At this as6 time, the client does not indicate any symptoms associated with coronavirus-19. Ebola Screen: No symptoms or risks identified at this time. Initial Sepsis Screen: Does the patient meet any 2 criteria? No. Patient's initial sepsis screen is negative. Does the patient have a suspected source of infection? No. Patient's initial sepsis screen is negative. Risk Assessment: Do you want to hurt yourself or someone else? Patient reports no desire to harm self or others. Onset of symptoms was April 16, 2024. 21:05 Acuity: JEFFRY 3 as6 21:05 Method Of Arrival: Ambulatory as6 Historical: - Allergies: 21:07 NKDA; as6 - PMHx: 21:07 coronary atherosclerosis; Hyperlipidemia; Hypertension; as6 - PSHx: 21:07 heart cath; cardiac bypass; stents in legs; Testicular surgery; as6 - Immunization history:: Adult Immunizations up to date. - Infectious Disease History:: Denies. - Social history:: Smoking status: Patient denies any tobacco usage or history of. - Family history:: not pertinent. Screenin:28 [facility] ED Fall Risk Assessment (Adult) History of falling in the last 3 months, kd3 including since admission No falls in past 3 months (0 pts) Confusion or Disorientation No (0 pts) Intoxicated or Sedated No (0 pts) Impaired Gait No (0 pts) Mobility Assist Device Used No (0 pt) Altered Elimination No (0 pt) Score/Fall Risk Level 0 - 2 = Low Risk Oriented to surroundings. Abuse screen: Denies threats or abuse. Denies injuries from another. Nutritional screening: No deficits noted. Tuberculosis screening: No symptoms or risk factors identified. Assessment: 21:27 General: Appears in no apparent distress. Behavior is calm, cooperative. Pain: kd3 Complains of pain in groin. Neuro: Level of Consciousness is awake, alert, obeys commands, Oriented to person, place, time, situation. Respiratory: Airway is patent Trachea midline Respiratory effort is even, unlabored, Respiratory pattern is regular, symmetrical. 21:29 General: Pt independently ambulatory to the restroom for urine sample collection. Pt IV kd3 access obtained, blood collected. Pt is on continuous monitoring. Warm blankets provided for comfort. . 23:08 General: Pt transported to CT and back. . kd3 04/20 00:12 General: Pt reports pain in the right lower quadrant. Provider notified. IV Zofran and kd3 morphine administered. . Pain: Complains of pain in right lower quadrant. Cardiovascular: Patient's skin is warm and dry. Respiratory: Airway is patent Respiratory effort is even, unlabored, Respiratory pattern is regular, symmetrical. Vital Signs: 04/19 21:05 BP 168 / 84; Pulse 76; Resp 16; Temp 97.4; Pulse Ox 100% ; Weight 74.84 kg; Height 5 as6 ft. 4 in. ; Pain 8/10; 21:30 BP 148 / 78; Pulse 72; Resp 19; Pulse Ox 98% on R/A; kd3 22:21 BP 140 / 86; Pulse 69; Resp 17; Pulse Ox 98% on R/A; kd3 23:08 BP 144 / 84; Pulse 77; Resp 16; Pulse Ox 98% on R/A; kd3 04/20 00:11 BP 146 / 78; Pulse 79; Resp 16; Pulse Ox 100% on R/A; kd3 04/19 21:05 Body Mass Index 28.32 (74.84 kg, 162.56 cm) as6 04/19 21:05 Pain Scale: Adult as6 ED Course: 04/19 20:54 Patient arrived in ED. gm2 20:55 Hema Alvarez MD is Attending Physician. rt 21:06 Triage completed. as6 21:07 Arm band placed on. as6 21:15 Agnes Washington, CIS[employer] is Primary Nurse. kd3 21:28 Initial lab(s) drawn, by me, sent to lab. Urine collected: clean catch specimen, clear. kd3 Inserted saline lock: 20 gauge in right antecubital area, using aseptic technique. Blood collected. 21:29 Patient has correct armband on for positive identification. Provided Education on: kd3 urine sample . 21:29 CBC with Diff Sent. kd3 21:29 CMP Sent. kd3 21:29 Lipase Sent. kd3 21:29 Urinalysis w/ reflexes Sent. kd3 22:51 CT Abd/Pelvis - IV Contrast Only In Process Unspecified. EDMS 04/20 00:24 Garcia Gomez MD is Referral Physician. rt 00:32 No provider procedures requiring assistance completed. IV discontinued, intact, kd3 bleeding controlled, No redness/swelling at site. Pressure dressing applied. Administered Medications: 00:11 Drug: morphine IVP or IV 4 mg IVP once over 4 mins Route: IVP; Infused Over: 4 mins; kd3 Site: right antecubital; 00:32 Follow up: Response: No adverse reaction; Pain is decreased kd3 00:11 Drug: Ondansetron IVP 4 mg IVP once; over 2 minutes Route: IVP; Site: right antecubital;kd3 00:32 Follow up: Response: No adverse reaction kd3 Medication: 04/19 21:29 VIS not applicable for this client. kd3 Outcome: 04/20 00:24 Discharge ordered by . rt 00:32 Discharged to home ambulatory, with family, kd3 00:32 Condition: stable 00:32 Discharge instructions given to patient, family, Instructed on discharge instructions, follow up and referral plans. Demonstrated understanding of instructions, follow-up care, 00:32 Patient left the ED. kd3 Signatures: Dispatcher [employer] [facility] Charles Santiago RN RN as6 Agnes Washington RN RN kd3 Hema Alvarez MD MD rt Sasha Forrester 2
[2024-04-20 01:21] VITALS: BP 146/78; TEMP 97.4; O2SAT 100
--- NOTE | 2024-04-20 19:36 | RAD REPORT ---
EXAM DESCRIPTION: CT - Abdomen Pelvis W Contrast - 04/20/2024 7:09 am CLINICAL HISTORY: 68-year-old male with right groin pain. COMPARISON: None. TECHNIQUE: CT of the abdomen and pelvis was performed following intravenous administration of contra st. Oral contrast was not administered. Multiplanar reformatted images were provided. This exam was p erformed according to our departmental dose optimization program which includes use of automated expo sure control, adjustment of the mA and/or kV according to patient size and/or use of iterative recons truction technique. FINDINGS: Chest: Evaluation through the lung bases reveals no focal opacity, pleural effusion or pne umothorax. Heart size is within normal limits. No pericardial effusion. Abdomen and pelvis: The liver, gallbladder, pancreas, spleen, bilateral kidneys and bilateral adrenal glands are within normal limits. Right-sided exophytic simple renal cyst measuring 6 Hounsfield units and 1.8 cm. Bosniak type I. No f ollow-up imaging is recommended. The vessels demonstrate dense atherosclerotic calcification otherwise patent and normal in caliber. No abdominopelvic lymph nodes are noted to be pathologically enlarged by CT measurement criteria. The bowel is within normal limits without abnormal bowel wall thickness or bowel dilation. Large volu me of fecal content present throughout the large bowel raising the question of fecal stasis or consti pation. No free air. No free abdominopelvic fluid collections. The appendix is within normal limits. Enlarged bladder. Postoperative changes following right hernia repair. Suspected testicular hydrocele on the right of u ncertain etiology. The osseous structures demonstrate multilevel degenerative change of the lumbar spine with multilevel loss of disc height, vacuum disc phenomenon and disc bulge. Moderate disc bulge at L3-4, L4-5 and L5 -S1 with abutment of the bilateral lateral recess and moderate to severe bilateral neural foraminal n arrowing at these levels. IMPRESSION: 1. No specific acute intra-abdominal findings are noted to suggest etiology of the pat ient's abdominal pain. 2. Large volume of fecal content present throughout the large bowel raising the question of fecal s tasis or constipation. 3. Enlarged bladder. 4. Suspected right-sided testicular hydrocele of uncertain etiology. 5. Multilevel lumbar spine degenerative changes as detailed above may be further evaluated with MRI . Electronically signed by: Roberta De Leon MD 04/20/2024 12:12 AM CDT RP Due to temporary technical issues with the PACS/Fluency reporting system, reports are being signed by the in house radiologists without review as a courtesy to insure prompt reporting. The interpreting radiologist is fully responsible for the content of the report.
== END 2024-04-20 00:32 | disposition home or self-care (01) ==
LOC: ER 20:49
DX: N43.3 Hydrocele, unspecified (principal)
CPT/HCPCS: 85025; 36415; 81003; 83690; 80053; 74177; 96375; 96374; 99284; Q9967; J2405

== ENCOUNTER 2024-08-08 17:29 | Emergency (ER) | payer OTHER ==
--- NOTE | 2024-08-08 18:33 | RAD REPORT ---
EXAMINATION: LUMBAR SPINE 3 VIEWS CLINICAL INDICATION: Male, 68 years old. [facility] MAIN PAIN Bed Name: 4 TECHNIQUE: AP, lateral, focused lateral lumbosacral views of the lumbar spine were obtained. COMPARISON: No prior exam. FINDINGS: For purposes of this dictation, it is assumed that there are 5 lumbar type vertebral bodies. ALIGNMENT: Mild levoscoliosis. BONES: Vertebral bodies are normal in height. No aggressive osseous lesions. DISCS: Mild disc thinning with small anterior and posterior osteophytes present. Aortic atheroscleros is. IMPRESSION: Mild lumbar spondylosis is present.
[2024-08-08] MEDS ORDERED: HYDROCODONE/APAP 5/325 MG TAB ONE (18:34)
[2024-08-08] MEDS ORDERED: DIAZEPAM 5 MG TABLET ONE (18:34)
[2024-08-08 20:15] LABS: Specific Gravity < 1.005 (1.005-1.030); Urine Bilirubin NEGATIVE (Negative); Urine Blood Negative (Negative); Urine Clarity Clear (Clear); Urine Color Colorless (Yellow); Urine Glucose NEGATIVE (Negative); Urine Ketones NEGATIVE (Negative); Urine Microscopic Reflex YN NO UMIC; Urine Nitrite NEGATIVE (Negative); Urine Protein NEGATIVE (Negative); Urine Urobilinogen Normal (Normal)
[2024-08-08 20:59] LABS: PT Prothrombin Time 11.6 SECONDS (9.4-12.5); Protime INR 1.04
[2024-08-08 21:01] LABS: Absolute Basophils 0.1 K/uL (0-0.5); Absolute Eosinophils 0.1 K/uL (0-0.5); Absolute Lymphocytes (CBC) 2.1 K/uL (0.7-4.9); Absolute Monocytes 0.6 K/uL (0.1-1.3); Absolute Neutrophil 4.6 K/uL (1.8-8.0); Basophils % 0.8 % (0-1.3); Eosinophils % 0.9 % (0-4.4); Hematocrit 40.2 % (39.6-49.0); Hemoglobin 13.1 g/dL (13.6-17.9); Lymphocytes % 28.1 % (15.3-44.8); MCH 30.8 pg (27.0-35.0); MCHC 32.6 g/dL (32.0-36.0); MCV 94.5 fL (80-100); MPV 8.7 fL (7.6-11.3); Monocytes % 7.9 % (3.3-12.3); Neutrophils % 62.3 % (41.7-73.7); Platelets 158 thou/uL (152-406); RBC Red Blood Cell Count 4.25 M/uL (4.33-5.43); Red Cell Distribution Width 14.1 % (12.1-15.2)
[2024-08-08] MEDS ORDERED: KETOROLAC 30 MG/ML INJ ONE (21:01)
[2024-08-08] MEDS ORDERED: MORPHINE 4 MG/ML SYR ONE (21:02)
[2024-08-08] MEDS ORDERED: NA CHLORIDE 0.9% 1,000 ML ONE (21:02)
[2024-08-08 21:09] LABS: ALT/SGPT 25 U/L (16-61); AST/SGOT 13 U/L (15-37); Albumin 3.9 g/dL (3.4-5.0); Albumin/Globulin Ratio 1.2 (1.1-1.8); Alkaline Phosphatase 87 U/L (45-117); Anion Gap 6.1 mEq/L (5.0-15.0); BUN Blood Urea Nitrogen 15 mg/dL (7-18); Bicarbonate 29 mEq/L (21-32); Bilirubin Total 0.6 mg/dL (0.2-1.0); Globulin 3.3 g/dL (2.3-3.5); Glomerular Filtration Rate 87 ml/min (=/>90); Glucose Level 92 mg/dL (74-106); Lipase 25 U/L (13-75); Potassium 4.1 mEq/L (3.5-5.1); Protein, Total 7.2 g/dL (6.4-8.2); Sodium Level 138 mEq/L (136-145)
[2024-08-08 21:11] LABS: C-Reactive Protein < 2.90 mg/L (<3.00)
--- NOTE | 2024-08-08 22:36 | RAD REPORT ---
EXAMINATION: CT ABDOMEN AND PELVIS WITH CONTRAST CLINICAL INDICATION: Right flank pain TECHNIQUE: CT abdomen and pelvis was performed, after the administration of IV contrast, as per [facility] protocol. Axial, sagittal and coronal reconstructions were obtained. One or more of the following dose reduction techniques were used: Automated exposure control, adjustment of the mA and k V according to patient size, and iterative reconstruction. Unless otherwise specified, incidental findings do not require dedicated imaging follow-up. COMPARISON: 04/19/2024, 07/29/2022 FINDINGS: LOWER CHEST: Scarring is present in the right lung base. Small hiatal hernia. LIVER: Mild fatty liver is present. No focal lesion or biliary dilatation is seen. SPLEEN: Normal size. No focal lesion. PANCREAS: No mass, ductal dilation, or silvio-pancreatic fluid. ADRENALS: Normal; no mass. KIDNEYS: Normal size and contour. No hydronephrosis. Benign right renal cyst. GASTROINTESTINAL TRACT: No evidence of free air, significant intra-abdominal free fluid, bowel obstru ction or abscess. APPENDIX: Normal appendix. LYMPH NODES: No lymphadenopathy. MUSCULOSKELETAL: Moderate lower lumbar degenerative changes. ADDITIONAL FINDINGS: Moderate aortoiliac atherosclerosis. IMPRESSION: No acute or concerning abnormalities seen in the abdomen or pelvis.Moderate lower cervical degenerati ve changes. Fatty liver.
--- NOTE | 2024-08-08 22:53 | EDPHYS ---
Physician Documentation [facility] Name: John Moreno Age: 68 yrs Sex: Male : 1955 Arrival Date: 08/08/2024 Time: 17:29 Bed 4 Private MD: ED Physician Maxi Castillo HPI: 08/08 18:36 This 68 yrs old Male presents to ER via Ambulatory with complaints of Back ms3 Pain. 18:36 68-year-old male with past medical history of coronary arthrosclerosis, hyperlipidemia, ms3 hypertension presents to the emergency department for back pain that has been ongoing for 5 to 6 days. Patient states pain is 10/10. Patient states movement makes the pain worse. Patient believes he was bending over when the pain began. Historical: - Allergies: 17:34 NKDA; ss - PMHx: 17:34 coronary atherosclerosis; Hyperlipidemia; Hypertension; ss - PSHx: 17:34 cardiac bypass; heart cath; stents in legs; Testicular surgery; ss 17:39 I\T\D rectal abscess; ll1 - Immunization history:: Adult Immunizations up to date. - Infectious Disease History:: Denies. - Social history:: Smoking status: Patient denies any tobacco usage or history of. - Family history:: not pertinent. ROS: 18:36 Constitutional: Negative for fever, and chills. Cardiovascular: Negative for chest ms3 pain, and palpitations. Respiratory: Negative for shortness of breath, cough, wheezing, and pleuritic chest pain, Abdomen/GI: Negative for abdominal pain, nausea, vomiting, diarrhea, and constipation, 18:36 MS/extremity: Positive for pain, of the back, 08/09 20:07 All other systems are negative, sp4 Exam: 08/08 18:36 Constitutional: This is a well developed, well nourished patient who is awake, alert, ms3 and in no acute distress. Head/Face: Normocephalic, atraumatic. Chest/axilla: Normal chest wall appearance and motion. Nontender with no deformity. Cardiovascular: Regular rate and rhythm with a normal S1 and S2. No gallops, murmurs, or rubs. Normal PMI, no JVD. No pulse deficits. Respiratory: Lungs have equal breath sounds bilaterally, clear to auscultation and percussion. No rales, rhonchi or wheezes noted. No increased work of breathing, no retractions or nasal flaring. Abdomen/GI: Soft, non-tender, with normal bowel sounds. No distension or tympany. No guarding or rebound. No evidence of tenderness throughout. Skin: Warm, dry with normal turgor. Normal color with no rashes, no lesions, and no evidence of cellulitis. Back: ROM is normal, normal spinal alignment noted, CVA tenderness, is absent, vertebral tenderness, is not appreciated, 08/09 20:07 MS/ Extremity: Pulses equal, no cyanosis. Neurovascular intact. Full, normal range sp4 of motion. Neuro: Awake and alert, GCS 15, oriented to person, place, time, and situation. Cranial nerves II-XII grossly intact. Motor strength 5/5 in all extremities. Sensory grossly intact. Psych: Awake, alert, with orientation to person, place and time. Behavior, mood, and affect are within normal limits Vital Signs: 08/08 17:40 BP 144 / 78; Pulse 79; Resp 17; Temp 97.7; Pulse Ox 99% on R/A; Weight 78.02 kg; Height ll1 5 ft. 4 in. ; Pain 10/10; 18:52 BP 140 / 81; Pulse 74; Resp 17; Pulse Ox 99% on R/A; rs5 19:00 BP 136 / 80; Pulse 71; Resp 18 S; Temp 98.3(O); Pulse Ox 100% on R/A; br2 21:07 BP 154 / 78; Pulse 71; Resp 18 S; Pulse Ox 98% on R/A; Pain 9/10; br2 21:37 BP 154 / 78; Pulse 69; Resp 18 S; Pulse Ox 100% on R/A; br2 22:16 BP 123 / 61; Pulse 66 RA; Resp 18 S; Pulse Ox 98% on R/A; br2 23:10 BP 129 / 81; Pulse 64; Resp 17; Temp 98.1; Pulse Ox 99% ; jj7 17:40 Body Mass Index 29.52 (78.02 kg, 162.56 cm) ll1 17:40 Pain Scale: Adult ll1 21:07 Pain Scale: Adult br2 Marjorie Coma Score: 08/09 20:07 Eye Response: spontaneous(4). Motor Response: obeys commands(6). Verbal Response: sp4 oriented(5). Total: 15. MDM: 08/08 17:47 Patient medically screened. ms3 18:36 Differential diagnosis: Fracture Neoplasm UTI. ms3 20:04 Transition of care: After a detail discussion of the patient's case, care is ms3 transferred to Maxi Castillo MD. 22:50 ED course: EXAMINATION: CTABDOMEN AND PELVIS WITH CONTRAST CLINICAL INDICATION: Right sp4 flank pain TECHNIQUE: CT abdomen and pelvis was performed, after the administration of IV contrast, as per department protocol. Axial, sagittal and coronal reconstructions were obtained. One or more of the following dose reduction techniques were used: Automated exposure control, adjustment of the mA and kV according to patient size, and iterative reconstruction. Unless otherwise specified, incidental findings do not require dedicated imaging follow-up. COMPARISON: 04/19/2024, 07/29/2022 FINDINGS: LOWER CHEST: Scarring is present in the right lung base. Small hiatal hernia. LIVER: Mild fatty liver is present. No focal lesion or biliary dilatation is seen. SPLEEN: Normal size. No focal lesion. PANCREAS: No mass, ductal dilation, or silvio-pancreatic fluid. ADRENALS: Normal; no mass. KIDNEYS: Normal size and contour. No hydronephrosis. Benign right renal cyst. GASTROINTESTINAL TRACT: No evidence of free air, significant intra-abdominal free fluid, bowel obstruction or abscess. APPENDIX: Normal appendix. LYMPH NODES: No lymphadenopathy. MUSCULOSKELETAL: Moderate lower lumbar degenerative changes. ADDITIONAL FINDINGS: Moderate aortoiliac atherosclerosis. IMPRESSION: No acute or concerning abnormalities seen in the abdomen or pelvis. Moderate lower cervical degenerative changes. Fatty liver. Reported By: Octavio Vyas. 08/09 20:07 Data reviewed: vital signs, nurses notes, lab test result(s), radiologic studies, CT sp4 scan, plain films. Consideration of Admission/Observation Escalation of care including admission/observation considered. ED course: Patient has no neurologic exam, there is no sign of radiculopathy or cauda equina syndrome. He is stable for discharge home. Advised outpatient lumbar MRI.. 08/08 18:14 Order name: Urinalysis w/ reflexes; Complete Time: 20:30 ms3 08/08 20:36 Order name: CBC with Diff; Complete Time: 21:34 sp4 08/08 20:36 Order name: CMP; Complete Time: 21:34 sp4 08/08 20:36 Order name: Lipase; Complete Time: 21:34 sp4 08/08 20:36 Order name: PT-INR; Complete Time: 21:34 sp4 08/08 20:36 Order name: CRP; Complete Time: 21:34 sp4 08/08 18:14 Order name: Lumbar Spine (3 Views) XRAY; Complete Time: 18:34 ms3 08/08 20:35 Order name: CT Abd/Pelvis - IV Contrast Only; Complete Time: 22:39 sp4 08/08 20:36 Order name: IV Saline Lock; Complete Time: 20:47 sp4 08/08 20:36 Order name: Labs collected and sent; Complete Time: 20:47 sp4 Administered Medications: 08/08 18:37 Drug: Diazepam PO 5 mg PO once Route: PO; rs5 19:15 Follow up: Response: No adverse reaction; Pain is unchanged, physician notified br2 18:37 Drug: HYDROcodone-acetaminophen PO 5 mg-325 mg 1 tabs PO once Route: PO; rs5 19:15 Follow up: Response: No adverse reaction; No change in condition; Pain is unchanged, br2 physician notified 21:07 Drug: morphine IVP or IV 4 mg IVP once over 4 mins Route: IVP; Infused Over: 4 mins; br2 Site: right antecubital; 21:35 Follow up: Response: No adverse reaction; Pain is decreased br2 21:07 Drug: Ketorolac IVP 30 mg IVP once Route: IVP; Site: right antecubital; br2 21:35 Follow up: Response: No adverse reaction; Pain is decreased br2 21:35 Follow up: Response: No adverse reaction; Pain is decreased br2 21:07 Drug: NS 0.9% IV 1000 ml IV at 1 bolus Per protocol; 1000 mL bolus Route: IV; Rate: 1 br2 bolus; Site: right antecubital; 21:35 Follow up: Response: No adverse reaction br2 22:14 Follow up: IV Status: Completed infusion jj7 23:13 Drug: Methocarbamol PO 1500 mg PO once Route: PO; jj7 23:13 Follow up: Response: No adverse reaction jj7 23:15 Follow up: Response: No adverse reaction jj7 Disposition: 08/09 20:08 Chart complete. sp4 Disposition Summary: 08/08/24 22:52 Discharge Ordered Notes: Location: Home sp4 Problem: new sp4 Symptoms: have improved sp4 Condition: Stable sp4 Diagnosis - Low back pain sp4 - Acute right lower musculoskeletal back pain sp4 Followup: sp4 - With: Private Physician - When: 7 - 10 days - Reason: Recheck today's complaints Discharge Instructions: - Discharge Summary Sheet sp4 - Acute Back Pain, Adult sp4 Forms: - Patient Portal Instructions sp4 Prescriptions: - tramadol 100 mg Oral Tablet, ER Multiphase 24 hr - take 1 tablet ORAL route every 8 hours PRN pain; 20 tablet; Refills: 0, Product sp4 Selection Permitted - Ibuprofen 800 mg Oral Tablet - take 1 tablet ORAL route every 8 hours As needed take with food; 30 tablet; sp4 Refills: 0, Product Selection Permitted - methocarbamol 750 mg Oral tablet - take 2 tablets ORAL route every 8 hours for 21 days PRN pain; 60 tablet; sp4 Refills: 0, Product Selection Permitted Signatures: Dispatcher [employer] EDShantelle Gatica RN RN ss Shawn Santos RN RN ll1 Xiang Plascencia DO DO ms3 Robert Moctezuma RN RN jj7 Jt Gibbs RN RN rs5 Maxi Castillo MD MD sp4 Catherine Shell RN RN br2
--- NOTE | 2024-08-08 22:53 | ER ---
Nurse's Notes [facility] Name: John Moreno Age: 68 yrs Sex: Male : 1955 Arrival Date: 08/08/2024 Time: 17:29 Bed 4 Private MD: Diagnosis: Low back pain;Acute right lower musculoskeletal back pain Presentation: 08/08 17:40 Chief complaint: Patient states: Low back pain for 5-6 days. No fever. Coronavirus ll1 screen: Client denies travel out of the [place] in the last 14 days. At this time, the client does not indicate any symptoms associated with coronavirus-19. Ebola Screen: Patient denies travel to an Ebola-affected area in the 21 days before illness onset. Initial Sepsis Screen: Does the patient meet any 2 criteria? No. Patient's initial sepsis screen is negative. Does the patient have a suspected source of infection? No. Patient's initial sepsis screen is negative. Risk Assessment: Do you want to hurt yourself or someone else? Patient reports no desire to harm self or others. Onset of symptoms was August 04, 2024. 17:40 Method Of Arrival: Ambulatory ll1 17:40 Acuity: JEFFRY 4 ll1 Triage Assessment: 17:42 General: Appears uncomfortable, Behavior is calm, cooperative, appropriate for age. ll1 Pain: Complains of pain in back Pain currently is 10 out of 10 on a pain scale. Quality of pain is described as aching. Musculoskeletal: Reports pain in back. Historical: - Allergies: 17:34 NKDA; ss - PMHx: 17:34 coronary atherosclerosis; Hyperlipidemia; Hypertension; ss - PSHx: 17:34 cardiac bypass; heart cath; stents in legs; Testicular surgery; ss 17:39 I\T\D rectal abscess; ll1 - Immunization history:: Adult Immunizations up to date. - Infectious Disease History:: Denies. - Social history:: Smoking status: Patient denies any tobacco usage or history of. - Family history:: not pertinent. Screenin:35 [facility] ED Fall Risk Assessment (Adult) History of falling in the last 3 months, rs5 including since admission No falls in past 3 months (0 pts) Confusion or Disorientation No (0 pts) Intoxicated or Sedated No (0 pts) Impaired Gait No (0 pts) Mobility Assist Device Used No (0 pt) Altered Elimination No (0 pt) Score/Fall Risk Level 0 - 2 = Low Risk Oriented to surroundings, Maintained a safe environment. Abuse screen: Denies threats or abuse. Nutritional screening: No deficits noted. Tuberculosis screening: No symptoms or risk factors identified. Assessment: 17:35 General: Appears in no apparent distress. uncomfortable, Behavior is calm, cooperative. rs5 Pain: Complains of pain in back Pain currently is 8 out of 10 on a pain scale. Quality of pain is described as aching, Is continuous. Neuro: Level of Consciousness is awake, alert, obeys commands, Oriented to person, place, time, situation. Cardiovascular: Patient's skin is warm and dry. Respiratory: Airway is patent Respiratory effort is even, unlabored, Respiratory pattern is regular, symmetrical. GI: Abdomen is round non-distended, Abd is soft and non tender X 4 quads. : No signs and/or symptoms were reported regarding the genitourinary system. EENT: No signs and/or symptoms were reported regarding the EENT system. Derm: Skin is intact, Skin is pink, warm \T\ dry. Musculoskeletal: Range of motion: intact in all extremities. 18:44 Reassessment: Patient and/or family updated on plan of care and expected duration. Pain rs5 level reassessed. Patient is alert, oriented x 3, equal unlabored respirations, skin warm/dry/pink. 19:00 Reassessment: Patient and/or family updated on plan of care and expected duration. Pain br2 level reassessed. Patient is alert, oriented x 3, equal unlabored respirations, skin warm/dry/pink. Patient states symptoms have not improved. General: Appears in no apparent distress. comfortable, Behavior is calm, cooperative, quiet. Pain: Complains of pain in back Pain radiates to right low back Pain currently is 10 out of 10 on a pain scale. Quality of pain is described as aching, Is continuous. Neuro: Level of Consciousness is awake, alert, obeys commands, Oriented to person, place, time, situation. Cardiovascular: Denies chest pain, shortness of breath. Respiratory: Airway is patent Respiratory effort is even, unlabored, Respiratory pattern is regular, symmetrical. GI: No signs and/or symptoms were reported involving the gastrointestinal system. Abdomen is distended, non-distended. : No signs and/or symptoms were reported regarding the genitourinary system. EENT: No signs and/or symptoms were reported regarding the EENT system. Derm: Skin is intact, Skin is dry, Skin is normal, Skin temperature is warm. Musculoskeletal: Range of motion: intact in all extremities. Vital Signs: 17:40 BP 144 / 78; Pulse 79; Resp 17; Temp 97.7; Pulse Ox 99% on R/A; Weight 78.02 kg; Height ll1 5 ft. 4 in. ; Pain 10/10; 18:52 BP 140 / 81; Pulse 74; Resp 17; Pulse Ox 99% on R/A; rs5 19:00 BP 136 / 80; Pulse 71; Resp 18 S; Temp 98.3(O); Pulse Ox 100% on R/A; br2 21:07 BP 154 / 78; Pulse 71; Resp 18 S; Pulse Ox 98% on R/A; Pain 9/10; br2 21:37 BP 154 / 78; Pulse 69; Resp 18 S; Pulse Ox 100% on R/A; br2 22:16 BP 123 / 61; Pulse 66 RA; Resp 18 S; Pulse Ox 98% on R/A; br2 23:10 BP 129 / 81; Pulse 64; Resp 17; Temp 98.1; Pulse Ox 99% ; jj7 17:40 Body Mass Index 29.52 (78.02 kg, 162.56 cm) ll1 17:40 Pain Scale: Adult ll1 21:07 Pain Scale: Adult br2 Marjorie Coma Score: 08/09 20:07 Eye Response: spontaneous(4). Motor Response: obeys commands(6). Verbal Response: sp4 oriented(5). Total: 15. ED Course: 08/08 17:34 Patient arrived in ED. mg5 17:34 Arm band placed on. ss 17:35 Xiang Plascencia DO is Attending Physician. ms3 17:35 Patient has correct armband on for positive identification. Placed in gown. Bed in low rs5 position. Call light in reach. Side rails up X2. 17:35 No provider procedures requiring assistance completed. rs5 17:42 Triage completed. ll1 18:28 Lumbar Spine (3 Views) XRAY In Process Unspecified. EDMS 18:51 Jt Gibbs, CISCO is Primary Nurse. rs5 19:00 Report received from RECEIVED REPORT FROM JV RN. br2 19:41 Primary Nurse role handed off by Jt Gibbs RN br2 19:41 Catherine Shell, CISCO is Primary Nurse. br2 20:02 Attending Physician role handed off by Xiang Plascencia DO sp4 20:02 Maxi Castillo MD is Attending Physician. sp4 20:44 Inserted saline lock: 20 gauge in right antecubital area, using aseptic technique. sa1 Blood collected. Flushed with 10 mL NS. 22:29 CT Abd/Pelvis - IV Contrast Only In Process Unspecified. EDMS 23:15 IV discontinued, intact, bleeding controlled, No redness/swelling at site. Pressure vc1 dressing applied. Administered Medications: 18:37 Drug: Diazepam PO 5 mg PO once Route: PO; rs5 19:15 Follow up: Response: No adverse reaction; Pain is unchanged, physician notified br2 18:37 Drug: HYDROcodone-acetaminophen PO 5 mg-325 mg 1 tabs PO once Route: PO; rs5 19:15 Follow up: Response: No adverse reaction; No change in condition; Pain is unchanged, br2 physician notified 21:07 Drug: morphine IVP or IV 4 mg IVP once over 4 mins Route: IVP; Infused Over: 4 mins; br2 Site: right antecubital; 21:35 Follow up: Response: No adverse reaction; Pain is decreased br2 21:07 Drug: Ketorolac IVP 30 mg IVP once Route: IVP; Site: right antecubital; br2 21:35 Follow up: Response: No adverse reaction; Pain is decreased br2 21:35 Follow up: Response: No adverse reaction; Pain is decreased br2 21:07 Drug: NS 0.9% IV 1000 ml IV at 1 bolus Per protocol; 1000 mL bolus Route: IV; Rate: 1 br2 bolus; Site: right antecubital; 21:35 Follow up: Response: No adverse reaction br2 22:14 Follow up: IV Status: Completed infusion jj7 23:13 Drug: Methocarbamol PO 1500 mg PO once Route: PO; jj7 23:13 Follow up: Response: No adverse reaction jj7 23:15 Follow up: Response: No adverse reaction jj7 Medication: 18:53 VIS not applicable for this client. rs5 Outcome: 22:52 Discharge ordered by . spLorenza 23:07 Discharged to home ambulatory, vc1 23:07 Condition: good 23:07 Discharge instructions given to patient, Instructed on discharge instructions, follow up and referral plans. medication usage, Demonstrated understanding of instructions, follow-up care, medications, Prescriptions given X 3, 23:15 Patient left the ED. vc1 Signatures: Dispatcher [employer] EDMS Shantelle Hammond RN RN Shawn Rutherford RN RN ll1 Xiang Plascencia DO DO ms3 Swathi Rincon RN RN vc1 Robert Moctezuma RN RN jj7 Jt Gibbs RN RN rs5 Maxi Castillo MD MD sp4 Bebe Gay mg5 Sultan Edwardo sa1 Catherine Shell RN RN br2 Corrections: (The following items were deleted from the chart) 18:52 18:52 Reassessment: Patient and/or family updated on plan of care and expected rs5 duration. Pain level reassessed. Patient is alert, oriented x 3, equal unlabored respirations, skin warm/dry/pink. rs5
[2024-08-08] MEDS ORDERED: methocarbamoL 500 MG TAB ONE (23:10)
[2024-08-09 10:21] VITALS: TEMP 98.3
[2024-08-09 10:24] VITALS: BP 123/61; O2SAT 98
== END 2024-08-08 23:15 | disposition home or self-care (01) ==
LOC: ER 17:29
DX: M54.50 Low back pain, unspecified (principal); M79.18 Myalgia, other site; I10 Essential (primary) hypertension; Z95.1 Presence of aortocoronary bypass graft
CPT/HCPCS: 96361; 85025; 36415; 85610; 81003; 83690; 80053; 86140; 74177; 72100; 96375; 96374; 99284; Q9967; J7030

== ENCOUNTER 2024-08-22 14:29 | Observation (INO) | payer OTHER ==
--- NOTE | 2024-08-22 15:26 | RAD REPORT ---
EXAMINATION: ONE VIEW CHEST XR CLINICAL INDICATION: left shoulder and upper back pain TECHNIQUE: Frontal chest projection is submitted. Examination is limited by patient positioning and t echnique. COMPARISON: 10/26/2023 FINDINGS: The lungs are well inflated and clear. The heart is normal in size. No displaced fractures identified . IMPRESSION: No acute intrathoracic abnormalities.
[2024-08-22 16:14] LABS: Absolute Basophils 0.1 K/uL (0-0.5); Absolute Eosinophils 0.1 K/uL (0-0.5); Absolute Lymphocytes (CBC) 2.1 K/uL (0.7-4.9); Absolute Monocytes 0.9 K/uL (0.1-1.3); Absolute Neutrophil 9.4 K/uL (1.8-8.0); Basophils % 0.5 % (0-1.3); Eosinophils % 0.5 % (0-4.4); Hematocrit 43.4 % (39.6-49.0); Hemoglobin 14.4 g/dL (13.6-17.9); Lymphocytes % 16.6 % (15.3-44.8); MCH 31.1 pg (27.0-35.0); MCHC 33.3 g/dL (32.0-36.0); MCV 93.4 fL (80-100); MPV 8.7 fL (7.6-11.3); Monocytes % 6.9 % (3.3-12.3); Neutrophils % 75.5 % (41.7-73.7); Platelets 184 thou/uL (152-406); RBC Red Blood Cell Count 4.65 M/uL (4.33-5.43)
[2024-08-22 16:15] LABS: PT Prothrombin Time 11.3 SECONDS (9.4-12.5); Protime INR 1.01
[2024-08-22 16:35] LABS: ALT/SGPT 23 U/L (16-61); AST/SGOT < 10 U/L (15-37); Albumin 3.8 g/dL (3.4-5.0); Albumin/Globulin Ratio 1.1 (1.1-1.8); Alkaline Phosphatase 87 U/L (45-117); Anion Gap 8.9 mEq/L (5.0-15.0); BUN Blood Urea Nitrogen 17 mg/dL (7-18); Bicarbonate 27 mEq/L (21-32); Bilirubin Direct 0.2 mg/dL (0-0.2); Bilirubin Indirect, Calculated 0.5 mg/dL (0.2-0.8); Bilirubin Total 0.7 mg/dL (0.2-1.0); Globulin 3.6 g/dL (2.3-3.5); Glomerular Filtration Rate 85 ml/min (=/>90); Glucose Level 122 mg/dL (74-106); Magnesium 2.2 mg/dL (1.6-2.4); Potassium 3.9 mEq/L (3.5-5.1); Protein, Total 7.4 g/dL (6.4-8.2); Sodium Level 136 mEq/L (136-145); Troponin High Sensitivity 4.1 pg/mL (<58.9)
[2024-08-22] MEDS ORDERED: ONDANSETRON 4 MG/2 ML VIAL ONE (18:42)
[2024-08-22] MEDS ORDERED: MORPHINE 4 MG/ML SYR ONE ×2 (18:42→20:46)
[2024-08-22] MEDS ORDERED: ASPIRIN 81 MG CHEWABLE TABLET ONE (18:42)
[2024-08-22] MEDS ORDERED: NA CHLORIDE 0.9% 500 ML ONE (18:43)
--- NOTE | 2024-08-22 19:07 | RAD REPORT ---
EXAM: CT CHEST, ABDOMEN AND PELVIS WITH CONTRAST CLINICAL INDICATION: left side flank pain;Chest pain TECHNIQUE: CT chest, abdomen and pelvis was performed, following the administration of contrast, as p er department protocol. Axial, sagittal and coronal reconstructions were obtained. One or more of the following dose reduction techniques were used: Automated exposure control, adjustment of the mA a nd/or kV according to patient size, and/or iterative reconstruction. Unless otherwise specified, incidental findings do not require dedicated imaging follow-up. COMPARISON: 08/08/2024 FINDINGS: LUNGS: No evidence of airspace or interstitial process. No nodules. PLEURA: No pleural effusion. No pneumothorax. MEDIASTINUM AND LYMPH NODES: No mediastinal mass or fluid collection. Normal size mediastinal, hilar, and axillary lymph nodes. Mild fluid in the inferior esophagus. OSSEOUS STRUCTURES AND CHEST WALL: Intact. LIVER: Normal in size and contour. No focal lesion or biliary dilatation. Grossly unremarkable gallbl adder. PANCREAS: No mass, ductal dilation, or silvio-pancreatic fluid. SPLEEN: Normal size. No focal lesion. ADRENALS: Normal; no mass. KIDNEYS: Normal size and contour. No hydronephrosis. 19 mm benign cyst medial right kidney. URINARY BLADDER: Normal contour. GASTROINTESTINAL TRACT: No bowel obstruction, free air, significant free fluid or abscess. APPENDIX: Normal appendix. LYMPH NODES: No lymphadenopathy. MUSCULOSKELETAL: Mild lower lumbar degenerative spondylosis. OTHER: Aortoiliac atherosclerosis. IMPRESSION: No acute or significant abnormalities seen in the chest, abdomen or pelvis.
[2024-08-22] MEDS ORDERED: ACETAMINOPHEN 325 MG TABLET PO PRN (20:30)
[2024-08-22 20:32] LABS: Troponin High Sensitivity 4.6 pg/mL (<58.9)
--- NOTE | 2024-08-22 20:33 | ER ---
Nurse's Notes [facility] Name: John Moreno Age: 68 yrs Sex: Male : 1955 Arrival Date: 08/22/2024 Time: 14:29 Bed 14 Private MD: Diagnosis: Chest pain, unspecified Presentation: 08/22 14:48 Chief complaint: Patient states: Pain in L shoulder and chest, hx of chronic shoulder ph pain, states this is different, denies N/V, cough, or SOB. Coronavirus screen: Vaccine status: Patient reports receiving the 2nd dose of the covid vaccine. Ebola Screen: No symptoms or risks identified at this time. Initial Sepsis Screen: Does the patient meet any 2 criteria? No. Patient's initial sepsis screen is negative. Does the patient have a suspected source of infection? No. Patient's initial sepsis screen is negative. Risk Assessment: Do you want to hurt yourself or someone else? Patient reports no desire to harm self or others. Onset of symptoms was August 22, 2024. 14:48 Method Of Arrival: Ambulatory 14:48 Acuity: JEFFRY 3 ph Historical: - Allergies: 14:49 NKDA; ph - PMHx: 14:49 coronary atherosclerosis; Hyperlipidemia; Hypertension; ph - PSHx: 14:49 cardiac bypass; heart cath; I\T\D rectal abscess; stents in legs; Testicular surgery; ph - Immunization history:: Adult Immunizations unknown. - Infectious Disease History:: Denies. - Social history:: Smoking status: Patient denies any tobacco usage or history of. Screenin:35 [facility] ED Fall Risk Assessment (Adult) History of falling in the last 3 months, db including since admission No falls in past 3 months (0 pts) Confusion or Disorientation No (0 pts) Intoxicated or Sedated No (0 pts) Impaired Gait No (0 pts) Mobility Assist Device Used No (0 pt) Altered Elimination No (0 pt) Score/Fall Risk Level 0 - 2 = Low Risk Oriented to surroundings, Maintained a safe environment. Abuse screen: Denies threats or abuse. Denies injuries from another. Nutritional screening: No deficits noted. Tuberculosis screening: No symptoms or risk factors identified. Assessment: 18:35 Reassessment: Patient appears in no apparent distress at this time. Patient and/or db family updated on plan of care and expected duration. Pain level reassessed. Patient is alert, oriented x 3, equal unlabored respirations, skin warm/dry/pink. LEFT SHOULDER AND CHEST PAIN X 4 HOURS. General: Appears in no apparent distress. comfortable, Behavior is calm, cooperative. Pain: Complains of pain in chest and left arm. Neuro: Level of Consciousness is awake, alert, obeys commands, Oriented to person, place, time, situation. Cardiovascular: Reports chest pain. Respiratory: Airway is patent Respiratory effort is even, unlabored, Respiratory pattern is regular, symmetrical. 19:10 General: Appears in no apparent distress. comfortable, Behavior is calm, cooperative, rg5 appropriate for age. 19:10 Pain: Complains of pain in chest Quality of pain is described as aching. Neuro: Level rg5 of Consciousness is awake, alert, obeys commands, Oriented to person, place, time. Cardiovascular: Reports chest pain, Capillary refill < 3 seconds Patient's skin is warm and dry. Respiratory: Airway is patent Respiratory effort is even, unlabored, Respiratory pattern is regular, symmetrical. GI: Abdomen is round. : No signs and/or symptoms were reported regarding the genitourinary system. EENT: No deficits noted. Derm: Skin is intact, Skin is dry, Skin is normal, Skin temperature is warm. Musculoskeletal: Circulation, motion, and sensation intact. Range of motion: intact in all extremities. 20:00 Reassessment: Patient and/or family updated on plan of care and expected duration. Pain rg5 level reassessed. Patient is alert, oriented x 3, equal unlabored respirations, skin warm/dry/pink. 21:00 Reassessment: Patient and/or family updated on plan of care and expected duration. Pain rg5 level reassessed. Patient is alert, oriented x 3, equal unlabored respirations, skin warm/dry/pink. 22:15 Reassessment: Patient and/or family updated on plan of care and expected duration. Pain rg5 level reassessed. Patient is alert, oriented x 3, equal unlabored respirations, skin warm/dry/pink. Patient states symptoms have improved. Vital Signs: 14:48 BP 148 / 79; Pulse 78; Resp 18; Temp 98; Pulse Ox 100% on R/A; ph 18:10 BP 157 / 69; Pulse 68; Resp 18; Pulse Ox 98% on R/A; db 18:30 BP 132 / 78; Pulse 67; Resp 18; Pulse Ox 98% on R/A; db 19:30 BP 137 / 74; Pulse 63; Resp 18; Pulse Ox 99% on R/A; rg5 20:15 BP 137 / 74; Pulse 61; Resp 17; Temp 98; Pulse Ox 99% on R/A; Pain 0/10; rg5 21:00 BP 127 / 62; Pulse 62; Resp 17 S; Pulse Ox 100% ; Pain 0/10; rg5 22:14 BP 125 / 63; Pulse 70; Resp 17 S; Pulse Ox 100% on R/A; Pain 0/10; rg5 20:15 Pain Scale: Adult rg5 21:00 Pain Scale: Adult rg5 22:14 Pain Scale: Adult rg5 ED Course: 14:33 Patient arrived in ED. mg5 14:45 Chapo Almanzar PA is PHCP. cp 14:45 Hema Alvarez MD is Attending Physician. cp 14:49 Triage completed. ph 14:49 Arm band placed on Patient placed in waiting room, Patient notified of wait time. EKG ph completed in triage. Results shown to MD. 15:24 XRAY Chest (1 view) In Process Unspecified. EDMS 16:06 Basic Metabolic Panel Sent. bc6 16:06 CBC with Diff Sent. bc6 16:06 LFT's Sent. bc6 16:06 Magnesium Sent. bc6 16:06 PT-INR Sent. bc6 16:06 Troponin HS Sent. bc6 16:06 Initial lab(s) drawn, by ms, sent to lab. Inserted saline lock: 20 gauge in right bc6 antecubital area, using aseptic technique. Blood collected. Flushed with 10 mL NS. 18:35 Patient has correct armband on for positive identification. Bed in low position. Call db light in reach. Side rails up X 1. Client placed on continuous cardiac and pulse oximetry monitoring. NIBP monitoring applied. night monitor on. Pulse ox on. NIBP on. Warm blanket given. Pillow given. 18:38 Nereida Keating, RN is Primary Nurse. db 18:[address] via wheelchair. db 19:00 CT Chest, Abdomen, Pelvis - W/Contrast In Process Unspecified. EDMS 19:59 Fili Lea, CISCO is Primary Nurse. rg5 20:32 Sujit Vizcaino MD is Hospitalizing Provider. cp 22:10 Provided Education on: needs for admit. rg5 22:10 No provider procedures requiring assistance completed. Patient admitted, IV remains in rg5 place. intact, No redness/swelling at site. 08/23 08:39 Primary Nurse role handed off by Fili Lea RN 14:41 Nereida Keating, RN is Primary Nurse. db Administered Medications: 08/22 18:40 Drug: Aspirin PO Chewable Tablet 324 mg PO once; 81 mg tablets x 4 Route: PO; db 22:17 Follow up: Response: No adverse reaction rg5 18:40 Drug: NS 0.9% IV 500 ml IV at 500 ml/hr continuous Route: IV; Rate: 500 ml/hr; Site: db right antecubital; 22:17 Follow up: IV Status: Completed infusion; IV Intake: 1000ml rg5 18:40 Drug: morphine IVP or IV 4 mg IVP once over 4 mins Route: IVP; Infused Over: 4 mins; db Site: right antecubital; 22:17 Follow up: Response: No adverse reaction rg5 18:40 Drug: Ondansetron IVP 4 mg IVP once; over 2 minutes Route: IVP; Site: right antecubital;db 22:16 Follow up: Response: No adverse reaction rg5 20:52 Drug: morphine IVP or IV 4 mg IVP once over 4 mins Route: IVP; Infused Over: 4 mins; rg5 Site: right antecubital; 22:16 Follow up: Response: No adverse reaction; Pain is decreased rg5 Medication: 18:35 VIS not applicable for this client. db Intake: 22:17 IV: 1000ml; Total: 1000ml. rg5 Outcome: 20:33 Decision to Hospitalize by Provider. cp 22:10 Admitted to ER Hold. Please see [facility] for further documentation. rg5 22:10 Condition: stable 22:10 Instructed on the need for admit, 08/23 14:45 Patient left the ED. db Signatures: Dispatcher [employer] EDMS Susan Viveros RN RN Chapo Haro PA PA cp Botello, Elizabeth eb Nereida Keating RN RN db Myriam Gonsalez bc6 Bebe Gay mg5 Fili Lea, RN RN rg5
--- NOTE | 2024-08-22 20:33 | EDPHYS ---
Physician Documentation [facility] Name: John Moreno Age: 68 yrs Sex: Male : 1955 Arrival Date: 08/22/2024 Time: 14:29 Bed 14 Private MD: ED Physician Hema Alvarez HPI: 08/22 14:57 This 68 yrs old Male presents to ER via Ambulatory with complaints of Shoulder cp Pain - LEFT, Back Pain. 14:57 The patient or guardian complains of pain, that is acute. left upper shoulder. Context: cp resulted from an unknown reason, The patient reports no decreased range of motion. Associated signs and symptoms: Pertinent positives: left upper chest and left upper back pain. 14:57 Onset: The symptoms/episode began/occurred 4 hour(s) ago. cp 14:57 Modifying factors: The symptoms are aggravated by movement. Severity of symptoms: in cp the emergency department the symptoms are unchanged, despite home interventions. Historical: - Allergies: 14:49 NKDA; ph - PMHx: 14:49 coronary atherosclerosis; Hyperlipidemia; Hypertension; ph - PSHx: 14:49 cardiac bypass; heart cath; I\T\D rectal abscess; stents in legs; Testicular surgery; ph - Immunization history:: Adult Immunizations unknown. - Infectious Disease History:: Denies. - Social history:: Smoking status: Patient denies any tobacco usage or history of. ROS: 14:58 Constitutional: Negative for body aches, chills, fever, poor PO intake, cp 14:58 Eyes: Negative for injury, pain, redness, and discharge, cp 14:58 ENT: Negative for drainage from ear(s), ear pain, sore throat, difficulty swallowing, difficulty handling secretions, 14:58 Neck: Negative for injury or acute deformity, pain with movement, pain at rest, stiffness, 14:58 Cardiovascular: Positive for chest pain, of the left upper chest, 14:58 Back: Positive for pain at rest, of the left upper back, Negative for injury or acute deformity, 14:58 Respiratory: Negative for cough, shortness of breath, wheezing, cp 14:58 Abdomen/GI: Negative for abdominal pain, vomiting, diarrhea, constipation, 14:58 Neuro: Negative for altered mental status, dizziness, headache, numbness, weakness, 14:58 All other systems are negative, cp Exam: 14:58 ECG was reviewed by the Attending Physician. cp 15:00 Constitutional: The patient appears in no acute distress, alert, awake, cp non-diaphoretic, non-toxic, well developed, well nourished, 15:00 Head/Face: Normocephalic, atraumatic. cp 15:00 Eyes: Periorbital structures: appear normal, Conjunctiva: normal, no exudate, no cp injection, Sclera: no appreciated abnormality, Lids and lashes: appear normal, bilaterally, 15:00 ENT: External ear(s): are unremarkable, Nose: is normal, Mouth: Lips: moist, Oral cp mucosa: pink and intact, moist, Posterior pharynx: Airway: no evidence of obstruction, patent, 15:00 Neck: C-spine: vertebral tenderness, is not appreciated, crepitus, is not appreciated, 15:00 Chest/axilla: Inspection: normal, 15:00 Cardiovascular: Rate: normal, Rhythm: regular, Edema: is not appreciated, JVD: is not appreciated, 15:00 Respiratory: the patient does not display signs of respiratory distress, Respirations: normal, no use of accessory muscles, no retractions, labored breathing, is not present, Breath sounds: are clear throughout, no decreased breath sounds, no stridor, no wheezing, 15:00 Abdomen/GI: Inspection: abdomen appears normal, Palpation: abdomen is soft and non-tender, in all quadrants, 15:00 Back: pain, of the left trapezius and left scapular area, 15:00 Neuro: Orientation: to person, place \T\ time. Mentation: is normal, Motor: moves all fours, no focal deficits, Sensation: no obvious gross deficits, 20:35 ECG was reviewed by the Attending Physician. cp Vital Signs: 14:48 BP 148 / 79; Pulse 78; Resp 18; Temp 98; Pulse Ox 100% on R/A; ph 18:10 BP 157 / 69; Pulse 68; Resp 18; Pulse Ox 98% on R/A; db 18:30 BP 132 / 78; Pulse 67; Resp 18; Pulse Ox 98% on R/A; db 19:30 BP 137 / 74; Pulse 63; Resp 18; Pulse Ox 99% on R/A; rg5 20:15 BP 137 / 74; Pulse 61; Resp 17; Temp 98; Pulse Ox 99% on R/A; Pain 0/10; rg5 21:00 BP 127 / 62; Pulse 62; Resp 17 S; Pulse Ox 100% ; Pain 0/10; rg5 22:14 BP 125 / 63; Pulse 70; Resp 17 S; Pulse Ox 100% on R/A; Pain 0/10; rg5 20:15 Pain Scale: Adult rg5 21:00 Pain Scale: Adult rg5 22:14 Pain Scale: Adult rg5 MDM: 14:54 Medical Screening Exam initiated cp 20:35 Data reviewed: vital signs, nurses notes, lab test result(s), EKG, radiologic studies, cp CT scan, plain films, and as a result, I will admit patient. 20:35 Differential diagnosis: acute CO, angina, shoulder pain, cervical radiculopathy. cp Management of patient was discussed with the following: Hospitalist: DR Vizcaino will admit after discussion. I considered the following discharge prescriptions or medication management in the emergency department Medications were administered in the Emergency Department. See MAR. Independent interpretation of the following test(s) in the Emergency Department EKG: See my EKG interpretation above. Care significantly affected by the following chronic conditions: Hypertension. Counseling: I had a detailed discussion with the patient and/or guardian regarding the historical points, exam findings, and any diagnostic results supporting the discharge/admit diagnosis, lab results, radiology results, the need for further work-up and treatment in the hospital. Response to treatment: the patient's symptoms have markedly improved after treatment. 08/22 14:55 Order name: Basic Metabolic Panel; Complete Time: 17:16 cp 08/22 17:16 Interpretation: Normal except: GLUC 122; GFR 85. cp 08/22 14:55 Order name: CBC with Diff; Complete Time: 17:16 cp 08/22 17:17 Interpretation: Normal except: WBC 12.40; BURTON% 75.5; NEUT A 9.4. cp 08/22 14:55 Order name: LFT's; Complete Time: 17:16 cp 08/22 17:17 Interpretation: Normal except: AST < 10; GLOB 3.6. cp 08/22 14:55 Order name: Magnesium; Complete Time: 17:16 cp 08/22 14:55 Order name: PT-INR; Complete Time: 17:16 cp 08/22 14:55 Order name: Troponin HS; Complete Time: 17:16 cp 08/22 17:17 Interpretation: Reviewed. cp 08/22 18:23 Order name: Lipase cp 08/22 18:23 Order name: Troponin High Sensitivity cp 08/22 20:36 Order name: Urinalysis w/ reflexes EDMS 08/22 20:36 Order name: CBC with Automated Diff EDMS 08/22 20:36 Order name: CBC with Automated Diff EDMS 08/22 20:36 Order name: Comprehensive Metabolic Panel EDMS 08/22 20:36 Order name: Comprehensive Metabolic Panel EDMS 08/22 20:36 Order name: Troponin High Sensitivity EDMS 08/22 20:36 Order name: Troponin High Sensitivity EDMS 08/22 20:36 Order name: Troponin High Sensitivity EDMS 08/22 20:36 Order name: Troponin High Sensitivity EDMS 08/22 14:55 Order name: XRAY Chest (1 view); Complete Time: 16:11 cp 08/22 17:18 Interpretation: Report review. cp 08/22 18:28 Order name: CT Chest, Abdomen, Pelvis - W/Contrast; Complete Time: 19:16 cp 08/22 19:17 Interpretation: Report reviewed. cp 08/23 13:43 Order name: NM EDMS 08/22 14:55 Order name: EKG; Complete Time: 14:55 cp 08/22 14:55 Order name: Cardiac monitoring; Complete Time: 18:18 cp 08/22 14:55 Order name: EKG - Nurse/Tech; Complete Time: 16:55 cp 08/22 14:55 Order name: IV Saline Lock; Complete Time: 16:05 cp 08/22 14:55 Order name: Labs collected and sent; Complete Time: 16:06 cp 08/22 14:55 Order name: O2 Per Protocol; Complete Time: 16:55 cp 08/22 14:55 Order name: O2 Sat Monitoring; Complete Time: 16:55 cp 08/22 18:23 Order name: EKG - Nurse/Tech; Complete Time: 20:48 cp EC:58 Rate is 76 beats/min. Rhythm is regular. ND interval is normal. QRS interval is normal. cp QT interval is normal. T waves are Inverted in lead aVR. Interpreted by me. Reviewed by me. 20:35 Rate is 60 beats/min. Rhythm is regular. ND interval is normal. QRS interval is normal. cp QT interval is normal. T waves are Inverted in lead aVR. Interpreted by me. Reviewed by me. Administered Medications: 18:40 Drug: Aspirin PO Chewable Tablet 324 mg PO once; 81 mg tablets x 4 Route: PO; db 22:17 Follow up: Response: No adverse reaction rg5 18:40 Drug: NS 0.9% IV 500 ml IV at 500 ml/hr continuous Route: IV; Rate: 500 ml/hr; Site: db right antecubital; 22:17 Follow up: IV Status: Completed infusion; IV Intake: 1000ml rg5 18:40 Drug: morphine IVP or IV 4 mg IVP once over 4 mins Route: IVP; Infused Over: 4 mins; db Site: right antecubital; 22:17 Follow up: Response: No adverse reaction rg5 18:40 Drug: Ondansetron IVP 4 mg IVP once; over 2 minutes Route: IVP; Site: right antecubital;db 22:16 Follow up: Response: No adverse reaction rg5 20:52 Drug: morphine IVP or IV 4 mg IVP once over 4 mins Route: IVP; Infused Over: 4 mins; rg5 Site: right antecubital; 22:16 Follow up: Response: No adverse reaction; Pain is decreased rg5 Disposition: 08/23 09:01 Co-signature as Attending Physician, Hema Alvarez MD I reviewed the patient's care rt provided by the Advanced Practice Provider and agree with the diagnosis and treatment plan. Disposition Summary: 08/22/24 20:33 Hospitalization Ordered Notes: Hospitalization Status: Observation cp Provider: Sujit Vizcaino cp Condition: Stable cp Problem: new cp Symptoms: have improved cp Bed/Room Type: Standard cp Location: Telemetry/MedSurg (observation)(08/23/24 13:45) eb Room Assignment: 223(08/23/24 13:45) eb Diagnosis - Chest pain, unspecified cp Forms: - Medication Reconciliation Form cp - SBAR form cp - Leadership Thank You Letter cp Signatures: Dispatcher [employer] Susan Hyatt RN RN Chapo Almanzar PA PA cp Jaye Herrera RN RN [place] Danielle, RN RN db [place], Ryan, MD MD rt Lea, Fili, RN RN rg5 Corrections: (The following items were deleted from the chart) 08/22 14:55 14:55 BASIC METABOLIC PANEL+C.LAB.BRZ ordered. EDMS EDMS 14:55 14:55 CBC+H.LAB.BRZ ordered. EDMS EDMS 14:55 14:55 HEPATIC FUNCTION+C.LAB.BRZ ordered. EDMS EDMS 14:55 14:55 MAGNESIUM+C.LAB.BRZ ordered. EDMS EDMS 14:55 14:55 PROTIME (+INR)+COAG.LAB.BRZ ordered. EDMS EDMS 14:56 14:55 Troponin High Sensitivity+C.LAB.BRZ ordered. EDMS EDMS 18:23 18:23 LIPASE+C.LAB.BRZ ordered. EDMS EDMS 18:23 18:23 Troponin High Sensitivity+C.LAB.BRZ ordered. EDMS EDMS 18:29 18:29 Chest Abdomen Pelvis W Con+CT.RAD.BRZ ordered. EDMS EDMS 20:38 20:33 Telemetry/MedSurg (observation) cp cg 20:38 20:33 cp cg 08/23 13:45 08/22 20:38 BR ER HOLD cg eb 08/23 13:45 08/22 20:38 ERHOLD- cg eb
--- NOTE | 2024-08-22 20:36 | P.HP ---
Certification for Inpatient Patient admitted to: Observation With expected LOS: <2 Midnights Practitioner: I am a practitioner with admitting privileges, knowledge of patient current condition, hospital course, and medical plan of care. Services: Services provided to patient in accordance with Admission requirements found in Title 42 Section 412.3 of the Code of Federal Regulations Patient History Date of Service: 08/22/24 Reason for admission: CP History of Present Illness: 68 yrs old Male with past medical history of hypertension, hyperlipidemia, CAD status post CABG, history of testicular surgery, GERD, PAD, came to ER with chest discomfort and shoulder pain. Chest pain is retrosternal, pressure-like feeling. Radiating to the left shoulder and left arm. No fever or chills. No nausea vomiting or diarrhea. Pain is radiating to upper back as well. Patient has been followed cardiology in [place]. No sick contacts. Patient was assessed in the ER and had initial workup was negative for EKG as well as troponin but was admitted for further management of unstable angina Allergies No Known Allergies Allergy (Verified 08/30/22 10:16) Home medications list reviewed: Yes Home Medications: Amlodipine Besylate 5 mg PO DAILY 08/30/22 Aspirin [Vazalore] 81 mg PO DAILY 08/30/22 Atorvastatin Calcium [Lipitor] 40 mg PO BEDTIME 08/30/22 Bifidobacterium Infantis [Align] 4 mg PO DAILY 08/30/22 Losartan Potassium 50 mg PO DAILY 08/30/22 Metoprolol Succinate [Toprol Xl*] 25 mg PO DAILY 08/30/22 Mirtazapine 30 mg PO BEDTIME 08/30/22 Pantoprazole Sodium [Protonix] 20 mg PO DAILY 08/30/22 Polyethylene Glycol 3350 [Miralax] 17 gm PO BEDTIME 08/30/22 Psyllium Husk (with Sugar) [Metamucil Packet] 3.4 gm PO BEDTIME 08/30/22 - Past Medical/Surgical History Diabetic: No Past Medical History: Reviewed- Non-Contributory -: Hypertension -: Hyperlipidemia -: GERD -: Anxiety -: PAD -: Alcohol use -: CAD with CABG -: PAD Past Surgical History: Reviewed- Non-Contributory -: CABG 2020 -: Stents to lower extremities Psychosocial/ Personal History: Patient is - Family History Family History: Reviewed- Non-Contributory - Social History Smoking Status: Never smoker Alcohol use: Yes CD- Drugs: No Caffeine use: No Review of Systems 10-point ROS is otherwise unremarkable Physical Examination - Vital Signs Temperature: 97.2 F Blood Pressure: 138/62 Pulse: 70 Respirations: 18 Pulse Ox (%): 94 - Physical Exam General: Alert, In no apparent distress, Oriented x3 HEENT: Atraumatic, Normocephalic Neck: Supple, No Thyromegaly Respiratory: Clear to auscultation bilaterally, Normal air movement Cardiovascular: Normal pulses, Normal S1 S2 Capillary refill: <2 Seconds Gastrointestinal: Soft and benign, W/out hepatosplenomegaly Musculoskeletal: No clubbing, No swelling Integumentary: No rashes, No significant lesion Neurological: Normal speech, Normal strength at 5/5 x4 extr, Cranial nerves 3-12 intact, Normal reflexes 2+, Normal affect Lymphatics: No axilla or inguinal lymphadenopathy - Studies Laboratory Data (last 24 hrs) 08/22/24 08/22/24 08/22/24 20:00 16:05 16:05 WBC 12.40 H Hgb 14.4 Hct 43.4 Plt Count 184 PT 11.3 INR 1.01 Sodium Potassium BUN Creatinine Glucose Magnesium Total Bilirubin AST ALT Alkaline Phosphatase Lipase 33 08/22/24 16:05 WBC Hgb Hct Plt Count PT INR Sodium 136 Potassium 3.9 BUN 17 Creatinine 0.98 Glucose 122 H Magnesium 2.2 Total Bilirubin 0.7 AST < 10 L ALT 23 Alkaline Phosphatase 87 Lipase Assessment and Plan - Plan Unstable angina Will trend cardiac enzymes Will monitor telemetry Started on aspirin and statin EKG did not show any acute changes suggestive of ischemia Patient denies any chest pain Will get an echocardiogram Cardiology consult Hypertension Antihypertensives titrated Continue home medications and titrate as needed Hyperlipidemia Continue statin GERD Continue home meds CAD status post CABG PAD Continue home medications and titrate as needed GI/DVT prophylaxis Advanced directive full code Discharge Plan: Home Plan to discharge in: 24 Hours - Advance Directives Does patient have a Living Will: No Does patient have a Durable POA for Healthcare: No - Code Status/Comfort Care Code Status: Full Code Time Spent Managing Pts Care (In Minutes): 48
[2024-08-22 22:02] VITALS: O2SAT 98
[2024-08-22 22:39] VITALS: BMI 29.0
[2024-08-23 04:48] LABS: Absolute Eosinophils 0.1 K/uL (0-0.5); Absolute Lymphocytes (CBC) 2.1 K/uL (0.7-4.9); Absolute Monocytes 0.8 K/uL (0.1-1.3); Absolute Neutrophil 8.8 K/uL (1.8-8.0); Basophils % 0.2 % (0-1.3); Eosinophils % 0.5 % (0-4.4); Hematocrit 42.9 % (39.6-49.0); Hemoglobin 13.9 g/dL (13.6-17.9); Lymphocytes % 17.8 % (15.3-44.8); MCH 30.6 pg (27.0-35.0); MCHC 32.3 g/dL (32.0-36.0); MCV 94.6 fL (80-100); MPV 9.5 fL (7.6-11.3); Monocytes % 6.9 % (3.3-12.3); Neutrophils % 74.6 % (41.7-73.7); Platelets 196 thou/uL (152-406); RBC Red Blood Cell Count 4.53 M/uL (4.33-5.43); Red Cell Distribution Width 14.1 % (12.1-15.2)
[2024-08-23 04:59] LABS: Albumin 3.7 g/dL (3.4-5.0); Albumin/Globulin Ratio 1.1 (1.1-1.8); Anion Gap 6.2 mEq/L (5.0-15.0); Bilirubin Total 0.7 mg/dL (0.2-1.0); Globulin 3.4 g/dL (2.3-3.5); Potassium 4.2 mEq/L (3.5-5.1); Protein, Total 7.1 g/dL (6.4-8.2); Troponin High Sensitivity 4.6 pg/mL (<58.9)
[2024-08-23] MEDS: LOSARTAN POTASSIUM 50 MG TABLET PO SCH (09:00)
[2024-08-23] MEDS: AMLODIPINE 10 MG TAB PO SCH (09:00)
[2024-08-23] MEDS: PANTOPRAZOLE 40MG TABLET PO SCH (09:00)
[2024-08-23] MEDS: ASPIRIN EC 81 MG TAB PO SCH (09:00)
[2024-08-23] MEDS: METOPROLOL XL 25 MG TAB PO SCH (09:00)
[2024-08-23] MEDS ORDERED: HOME MED 1 EA UNK (Pantoprazole Sodium [Protonix] 20 MG Tablet.Dr) PO SCH (09:00)
[2024-08-23] MEDS ORDERED: ASPIRIN EC 81 MG TAB PO ONE (09:26)
[2024-08-23] MEDS ORDERED: PANTOPRAZOLE 40MG TABLET PO ONE (09:26)
[2024-08-23] MEDS ORDERED: AMLODIPINE 5 MG TAB ONE (09:26)
[2024-08-23] MEDS ORDERED: LOSARTAN POTASSIUM 50 MG TABLET ONE (09:27)
[2024-08-23 10:12] LABS: Specific Gravity 1.016 (1.005-1.030); Urine Bilirubin NEGATIVE (Negative); Urine Blood Negative (Negative); Urine Clarity Clear (Clear); Urine Color Colorless (Yellow); Urine Glucose NEGATIVE (Negative); Urine Ketones NEGATIVE (Negative); Urine Microscopic Reflex YN NO UMIC; Urine Nitrite NEGATIVE (Negative); Urine Protein NEGATIVE (Negative); Urine Urobilinogen Normal (Normal)
[2024-08-23] MEDS: METHYLPREDNISOLONE 125 MG INJ IV ONE (12:49)
[2024-08-23] MEDS ORDERED: REGADENOSON 0.4 MG/5 ML SYR IV ONE (13:06)
--- NOTE | 2024-08-23 13:43 | RAD REPORT ---
EXAM :Rest Stress Cardiac Imaging CLINICAL HISTORY: Chest pain TECHNIQUE: Rest images: 10.7 mCi technetium 99m sestamibi administered intravenously. Stress images: 30.9 mCi of technetium 99m sestamibi administered intravenously. Cardiac SPECT images obtained COMPARISON: None. FINDINGS: Small area of diminished radiotracer uptake septal left ventricular myocardium on stress images Small area of diminished radiotracer uptake septal left ventricular myocardium on rest images without significant change. Left ventricular ejection fraction equals 61% IMPRESSION: Small apparent fixed perfusion defect septal left ventricular myocardium may be secondary to overlyin g soft tissue or infarct No evidence of stress-induced ischemia
[2024-08-23] MEDS ORDERED: METHYLPREDNISOLONE 125 MG INJ ONE (14:35)
[2024-08-23 16:34] VITALS: BP 135/65; TEMP 97.9
[2024-08-23] MEDS ORDERED: MIRTAZAPINE 15 MG TAB PO SCH (21:00)
[2024-08-23] MEDS ORDERED: POLYETHYL GLY 3350 17 GM/DOSE PO SCH (21:00)
[2024-08-23] MEDS ORDERED: ATORVASTATIN 40 MG TAB PO SCH (21:00)
--- NOTE | 2024-08-26 06:46 | ECHO ---
HEIGHT: 5 ft 4 in WEIGHT: 169 lb 8.568 oz DATE OF STUDY: 08/23/[address]: Adam Tobin MD 2-DIMENSIONAL: YES M.MODE: YES DOPPLER: YES COLOR FLOW: YES TDS: PORTABLE: YES DEFINITY: BUBBLE STUDY: DIAGNOSIS: CHEST PAIN, RULE OUT ACUTE CORONARY SYNDROME CARDIAC HISTORY: CATHERIZATION: YES SURGERY: YES PROSTHETIC VALVE: NO PACEMAKER: NO MEASUREMENTS (cm) DIASTOLIC (NORMALS) SYSTOLIC (NORMALS) IVSd 0.9 (0.6-1.2) LA Diam 2.4 (1.9-4.0) LVEF 55-60% LVIDd 4.6 (3.5-5.7) LVIDs 3.5 (2.0-3.5) %FS 24% LVPWd 1.0 (0.6-1.2) Ao Diam 2.4 (2.0-3.7) 2 DIMENSIONAL ASSESSMENT: RIGHT ATRIUM: NORMAL LEFT ATRIUM: NORMAL RIGHT VENTRICLE: NORMAL LEFT VENTRICLE: NORMAL TRICUSPID VALVE: MILD TRICUSPID REGURGITATION MITRAL VALVE: NORMAL PULMONIC VALVE: MILD PULMONIC INSUFFICIENCY AORTIC VALVE: NORMAL PERICARDIAL EFFUSION: NONE AORTIC ROOT: NORMAL LEFT VENTRICULAR WALL MOTION: NORMAL DOPPLER/COLOR FLOW: SEE BELOW COMMENTS: 1. NORMAL LEFT VENTRICULAR EJECTION FRACTION 55-60% WITH NORMAL WALL MOTION 2. MILD TRICUSPID REGURGITATION 3. NORMAL DIASTOLIC FUNCTION TECHNOLOGIST: BIANCA LORENZ
--- NOTE | 2024-08-26 08:13 | TREADPHA ---
DX: CHEST PAIN, RULE OUT ACUTE CORONARY SYNDROME Date of Study: 08/23/2024 Ht: 5' 4 " Wt: 169 lb 8.568 oz Consulting Physician: RADHA MEDICATIONS: TYLENOL, NORVASC, ASPIRIN, LIPITOR, COZAAR, TOPROL XL, REMERON, PROTONIX, GLYCOLAX HISTORY: 68 YEAR OLD MALE WITH COMPLAINTS OF CHEST PAIN. PHYSICIAL EXAMINATION: RESTING B.P.: 149/78 RESTING H.R.: 67 RESTING EKG: NORMAL SINUS RHYTHM PROTOCOL: PHARMACOLOGIC EXERCISE TIME: 3:30 B.P. AT PEAK STRESS: 162/77 IMPRESSION: LEXISCAN INJECTED. CARDIOLITE INJECTED - SEE NUCLEAR MEDICINE REPORT. NO CHEST PAIN. NO ARRHYTHMIA NOTED. NO VENTRICULAR TACHYCARDIA. NO SUPRAVENTRICULAR TACHYCARDIA. NO ELECTROCARDIOGRAM CHANGES OF ISCHEMIA WITH LEXISCAN.
== END 2024-08-23 18:56 | disposition home or self-care (01) ==
LOC: ER 14:29 → ERHOLD 20:30 → 2ND 08-23 13:57
PROVIDERS: ADMIT Family Medicine; ATTEND Hospitalist
DX: I20.0 Unstable angina (principal); K21.9 Gastro-esophageal reflux disease without esophagitis; I73.9 Peripheral vascular disease, unspecified; I10 Essential (primary) hypertension; E78.5 Hyperlipidemia, unspecified; Z95.1 Presence of aortocoronary bypass graft
CPT/HCPCS: 96361; 93005; 93017; 93306; 85025 ×2; 80048; 36415; 83735; 85610; 80076; 81003; 84484 ×4; 83690; 80053; 71260; 74177; 71045; 94760 ×2; 78452; 96375; 96374; 99285; Q9967; J2785; J2919; J2405; J7040; A9500; G0378

== ENCOUNTER 2024-09-30 22:07 | Emergency (ER) | payer OTHER ==
[2024-09-30 23:02] LABS: Absolute Basophils 0.1 K/uL (0-0.5); Absolute Eosinophils 0.1 K/uL (0-0.5); Absolute Monocytes 0.7 K/uL (0.1-1.3); Absolute Neutrophil 4.5 K/uL (1.8-8.0); Basophils % 0.8 % (0-1.3); Eosinophils % 0.9 % (0-4.4); Hemoglobin 13.2 g/dL (13.6-17.9); Lymphocytes % 27.8 % (15.3-44.8); MCH 31.1 pg (27.0-35.0); MCHC 33.2 g/dL (32.0-36.0); MCV 93.9 fL (80-100); MPV 8.8 fL (7.6-11.3); Monocytes % 9.4 % (3.3-12.3); Neutrophils % 61.1 % (41.7-73.7); Nucleated Red Blood Cells % 0.1 % (0-0); Platelets 166 thou/uL (152-406); RBC Red Blood Cell Count 4.25 M/uL (4.33-5.43); Red Cell Distribution Width 15.1 % (12.1-15.2)
[2024-09-30 23:33] LABS: ALT/SGPT 19 U/L (16-61); Albumin 3.6 g/dL (3.4-5.0); Albumin/Globulin Ratio 1.2 (1.1-1.8); Alkaline Phosphatase 81 U/L (45-117); Anion Gap 10.6 mEq/L (5.0-15.0); BUN Blood Urea Nitrogen 10 mg/dL (7-18); Bicarbonate 25 mEq/L (21-32); Bilirubin Total 0.6 mg/dL (0.2-1.0); Glomerular Filtration Rate 96 ml/min (=/>90); Glucose Level 104 mg/dL (74-106); Lipase 43 U/L (13-75); Potassium 3.6 mEq/L (3.5-5.1); Protein, Total 6.6 g/dL (6.4-8.2); Sodium Level 134 mEq/L (136-145)
[2024-09-30 23:44] LABS: AST/SGOT < 10 U/L (15-37)
--- NOTE | 2024-10-01 00:39 | RAD REPORT ---
EXAM: US ABDOMEN LIMITED HISTORY: 69-year-old male with right upper quadrant pain. COMPARISON: CT of the abdomen report from 08/22/2024, and report from abdominal sonography 03/05/2024, images are currently unavailable. FINDINGS: Grayscale and color-flow imaging was obtained. Heterogeneous diffuse increase in hepatic echotexture within the partially visualized liver. No cholelithiasis, gallbladder mural thickening, pericholecystic fluid, or biliary duct dilatation. Negative sonographic Hoyos's sign was reported. Gallbladder wall measures 2.4 mm Proximal common bile duct measures 3.3 mm IMPRESSION: 1. No cholelithiasis or biliary duct dilatation. 2. Mild heterogeneous diffuse increase in hepatic echotexture, within the partially visualized liver, which can be seen with diffuse steatosis. Electronically signed by: Liban Pickens MD 10/01/2024 12:29 AM [facility] Due to temporary technical issues with the PACS/EnCoateibe reporting system, reports are being signed by the in-house radiologist without review as a courtesy to ensure prompt reporting the interpreting radiologist is fully responsible for the content of the report. Transcribed Date/Time: 10/01/2024 12:39 AM
[2024-10-01 02:08] LABS: Specific Gravity 1.015 (1.005-1.030); Sqamous Epithelial None Seen /HPF (None Seen); Urine Bacteria None Seen /HPF (<20); Urine Bilirubin NEGATIVE (Negative); Urine Blood Negative (Negative); Urine Clarity Clear (Clear); Urine Color Colorless (Yellow); Urine Culture Reflex Order NOT NEEDED; Urine Glucose NEGATIVE (Negative); Urine Ketones NEGATIVE (Negative); Urine Micro Reflex YN NO BILL MICROSCOPIC; Urine Nitrite NEGATIVE (Negative); Urine Protein NEGATIVE (Negative); Urine RBC <5 /HPF (None Seen); Urine Urobilinogen Normal (Normal); Urine WBC None Seen /HPF (<5); Urine pH 6.5 (5.0-7.0)
--- NOTE | 2024-10-01 02:43 | ER ---
Nurse's Notes [facility] Name: John Moreno Age: 69 yrs Sex: Male : 1955 Arrival Date: 09/30/2024 Time: 22:07 Bed 7 Private MD: Diagnosis: Abdominal pain, unspecified;Other hemorrhoids Presentation: 09/30 22:28 Chief complaint: Patient states: right sided abdominal pain that started 2 hours ago. cp4 Reports no pain at the moment. Also reports hemorrhoids. Coronavirus screen: Client denies travel out of the [place] in the last 14 days. At this time, the client does not indicate any symptoms associated with coronavirus-19. Ebola Screen: Patient negative for fever greater than or equal to 101.5 degrees Fahrenheit, and additional compatible Ebola Virus Disease symptoms Patient denies exposure to infectious person. Patient denies travel to an Ebola-affected area in the 21 days before illness onset. No symptoms or risks identified at this time. Initial Sepsis Screen: Does the patient meet any 2 criteria? No. Patient's initial sepsis screen is negative. Does the patient have a suspected source of infection? No. Patient's initial sepsis screen is negative. Risk Assessment: Do you want to hurt yourself or someone else? Patient reports no desire to harm self or others. Onset of symptoms was September 30, 2024 at 20:30. 22:28 Method Of Arrival: Ambulatory 4 22:28 Acuity: JEFFRY 3 cp4 Triage Assessment: 22:30 General: Appears in no apparent distress. comfortable, Behavior is calm, cooperative, cp4 appropriate for age. Pain: Denies pain. EENT: No signs and/or symptoms were reported regarding the EENT system. Neuro: Level of Consciousness is awake, alert, obeys commands, Oriented to person, place, time, situation. Cardiovascular: Patient's skin is warm and dry. Respiratory: Airway is patent Respiratory effort is even, unlabored. GI: Abdomen is round non-distended, Bowel sounds present X 4 quads. Abd is soft and non tender X 4 quads. : No signs and/or symptoms were reported regarding the genitourinary system. Derm: No signs and/or symptoms reported regarding the dermatologic system. Musculoskeletal: No signs and/or symptoms reported regarding the musculoskeletal system. Historical: - Allergies: 22:30 NKDA; cp4 - PMHx: 22:30 coronary atherosclerosis; Hyperlipidemia; Hypertension; cp4 - PSHx: 22:30 cardiac bypass; heart cath; I\T\D rectal abscess; stents in legs; Testicular surgery; cp4 - Immunization history:: Adult Immunizations up to date. - Infectious Disease History:: Denies. - Social history:: Smoking status: Patient denies any tobacco usage or history of. - Family history:: not pertinent. Screenin:32 [facility] ED Fall Risk Assessment (Adult) History of falling in the last 3 months, cp4 including since admission No falls in past 3 months (0 pts) Confusion or Disorientation No (0 pts) Intoxicated or Sedated No (0 pts) Impaired Gait No (0 pts) Mobility Assist Device Used No (0 pt) Altered Elimination No (0 pt) Score/Fall Risk Level 0 - 2 = Low Risk Oriented to surroundings, Maintained a safe environment, Assessed \T\ reinforced patient's understanding of fall precautions, Hourly rounding (assess needs \T\ fall precautionary measures) done. Abuse screen: Denies threats or abuse. Nutritional screening: No deficits noted. Tuberculosis screening: No symptoms or risk factors identified. Assessment: 22:32 Reassessment: No changes from previously documented assessment. cp4 Vital Signs: 22:28 BP 173 / 83; Pulse 76; Resp 18; Temp 98.2; Pulse Ox 98% ; Weight 72.12 kg; Height 5 ft. cp4 4 in. ; Pain 0/10; 10/01 00:06 BP 154 / 73; Pulse 70; Resp 18; Pulse Ox 97% ; cp4 01:38 BP 118 / 58; Pulse 73; Resp 18; Pulse Ox 97% ; cp4 02:44 BP 125 / 72; Pulse 73; Resp 18; Pulse Ox 97% ; cp4 09/30 22:28 Body Mass Index 27.29 (72.12 kg, 162.56 cm) cp4 09/30 22:28 Pain Scale: Adult cp4 ED Course: 09/30 22:10 Patient arrived in ED. [id number] 22:15 Hema Alvarez MD is Attending Physician. rt 22:28 Daphnie Hernandez is Primary Nurse. cp4 22:30 Triage completed. cp4 22:30 Arm band placed on right wrist. Patient placed in waiting room. cp4 22:32 Bed in low position. Call light in reach. Side rails up X 1. cp4 22:32 No provider procedures requiring assistance completed. cp4 22:49 Inserted saline lock: 22 gauge in right antecubital area, using aseptic technique. f Blood collected. Flushed with 10 mL NS. 22:49 Initial lab(s) drawn, by me, sent to lab. kmf 22:50 Initial lab(s) drawn, by ED staff, sent to lab. cp4 23:24 Abdomen Limited US In Process Unspecified. EDMS 10/01 00:57 CT Abd/Pelvis - IV Contrast Only In Process Unspecified. EDMS 01:51 UAM Sent. cp4 01:52 Urine collected: clean catch specimen, clear. cp4 02:43 Joss Finley MD is Referral Physician. rt 02:51 Provided Education on: abdominal pain and hemorrhoids. cp4 02:51 intact, bleeding controlled, No redness/swelling at site. Pressure dressing applied. cp4 Administered Medications: No medications were administered Medication: 09/30 22:32 VIS not applicable for this client. cp4 Outcome: 10/01 02:43 Discharge ordered by . rt 02:51 Discharged to home ambulatory, cp4 02:51 Condition: stable 02:51 Discharge instructions given to patient, family, Instructed on discharge instructions, follow up and referral plans. medication usage, Demonstrated understanding of instructions, follow-up care, medications, Prescriptions given X 2, 02:52 Patient left the ED. cp4 Signatures: Dispatcher [employer] EDWA Heidy Dias [id number] Hema Alvarez MD MD rt Daphnie Hernandez cp4 [facility]
--- NOTE | 2024-10-01 02:43 | EDPHYS ---
Physician Documentation [facility] Name: John Moreno Age: 69 yrs Sex: Male : 1955 Arrival Date: 09/30/2024 Time: 22:07 Bed 7 Private MD: ED Physician Hema Alvarez HPI: 09/30 23:05 This 69 yrs old Male presents to ER via Ambulatory with complaints of rt Abdominal Pain. 23:05 Patient presents to the ED with right upper quadrant pain starting tonight. The pain rt has since resolved. Has had similar symptoms previously, was told that it was his gallbladder but has not has his gallbladder removed yet. Reported nausea but no vomiting. Denies other acute complaints at this time. Does report having hemorrhoids but is using a cream for it. Symptoms are moderate severity, no other aggravating elevating factors.. Historical: - Allergies: 22:30 NKDA; cp4 - PMHx: 22:30 coronary atherosclerosis; Hyperlipidemia; Hypertension; cp4 - PSHx: 22:30 cardiac bypass; heart cath; I\T\D rectal abscess; stents in legs; Testicular surgery; cp4 - Immunization history:: Adult Immunizations up to date. - Infectious Disease History:: Denies. - Social history:: Smoking status: Patient denies any tobacco usage or history of. - Family history:: not pertinent. ROS: 23:05 Constitutional: Negative for fever, chills, and weight loss, Cardiovascular: Negative rt for chest pain, palpitations, and edema, Respiratory: Negative for shortness of breath, cough, wheezing, and pleuritic chest pain, MS/Extremity: Negative for injury and deformity, Skin: Negative for injury, rash, and discoloration, 23:05 Abdomen/GI: Positive for abdominal pain, nausea, Exam: 23:05 Constitutional: This is a well developed, well nourished patient who is awake, alert, rt and in no acute distress. Head/Face: Normocephalic, atraumatic. Chest/axilla: Normal chest wall appearance and motion. Nontender with no deformity. No lesions are appreciated. Cardiovascular: Regular rate and rhythm with a normal S1 and S2. No gallops, murmurs, or rubs. Normal PMI, no JVD. No pulse deficits. Respiratory: Lungs have equal breath sounds bilaterally, clear to auscultation and percussion. No rales, rhonchi or wheezes noted. No increased work of breathing, no retractions or nasal flaring. Abdomen/GI: Soft, non-tender, with normal bowel sounds. No distension or tympany. No guarding or rebound. No evidence of tenderness throughout. Skin: Warm, dry with normal turgor. Normal color with no rashes, no lesions, and no evidence of cellulitis. MS/ Extremity: Pulses equal, no cyanosis. Neurovascular intact. Full, normal range of motion. Vital Signs: 22:28 BP 173 / 83; Pulse 76; Resp 18; Temp 98.2; Pulse Ox 98% ; Weight 72.12 kg; Height 5 ft. cp4 4 in. ; Pain 0/10; 10/01 00:06 BP 154 / 73; Pulse 70; Resp 18; Pulse Ox 97% ; cp4 01:38 BP 118 / 58; Pulse 73; Resp 18; Pulse Ox 97% ; cp4 02:44 BP 125 / 72; Pulse 73; Resp 18; Pulse Ox 97% ; cp4 09/30 22:28 Body Mass Index 27.29 (72.12 kg, 162.56 cm) cp4 09/30 22:28 Pain Scale: Adult cp4 MDM: 09/30 22:35 Medical Screening Exam initiated rt 10/01 03:19 Differential Diagnosis Nonspecific abdominal pain, pancreatitis, cholecystitis, rt cholelithiasis, bowel obstruction, UTI. Data reviewed: vital signs, nurses notes, lab test result(s), radiologic studies. I considered the following discharge prescriptions or medication management in the emergency department Medications were administered in the Emergency Department. See MAR. Independent interpretation of the following test(s) in the Emergency Department CT Scan: My interpretation is No ureteral stone, bowel obstruction syndrome interpretation of CT scan images. Care significantly affected by the following chronic conditions: Hypertension. Counseling: I had a detailed discussion with the patient and/or guardian regarding the historical points, exam findings, and any diagnostic results supporting the discharge/admit diagnosis, lab results, radiology results, the need for outpatient follow up. Special discussion: I discussed with the patient/guardian in detail that at this point there is no indication for admission to the hospital. It is understood, however, that if the symptoms persist or worsen the patient needs to return immediately for re-evaluation. ED course: Patient was informed of findings of fatty liver, renal cyst. 09/30 22:44 Order name: CBC with Diff; Complete Time: 23:50 rt 09/30 22:44 Order name: CMP; Complete Time: 23:50 rt 09/30 22:44 Order name: Lipase; Complete Time: 23:50 rt 10/01 00:22 Order name: UAM; Complete Time: 02:11 rt 09/30 22:44 Order name: Abdomen Limited US rt 10/01 00:22 Order name: CT Abd/Pelvis - IV Contrast Only rt 09/30 22:44 Order name: IV Saline Lock; Complete Time: 22:56 rt 09/30 22:44 Order name: Labs collected and sent; Complete Time: 22:56 rt Administered Medications: No medications were administered Disposition Summary: 10/01/24 02:43 Discharge Ordered Notes: Location: Home rt Condition: Stable rt Diagnosis - Abdominal pain, unspecified rt - Other hemorrhoids rt Followup: rt - With: Joss Finley MD - When: 2 - 3 days - Reason: Discharge Instructions: - Discharge Summary Sheet rt - Abdominal Pain, Adult rt - Hemorrhoids rt Forms: - Medication Reconciliation Form rt - Antibiotic Education rt - Prescription Opioid Use rt - Patient Portal Instructions rt - Leadership Thank You Letter rt Prescriptions: - Anusol-HC 2.5 % Topical cream with perineal applicator - apply 1 application RECTAL route daily as needed; 1 Each; Refills: 0, Product rt Selection Permitted - Tramadol 50 mg Oral Tablet - take 1 tablet ORAL route every 8 hours as needed; 12 tablet; Refills: 0, rt Product Selection Permitted Signatures: Dispatcher [employer] EDHema Celeste MD MD rt Daphnie Hernandez cp4
--- NOTE | 2024-10-01 03:28 | RAD REPORT ---
EXAM: CT Abdomen and Pelvis With Intravenous Contrast CLINICAL HISTORY: The patient is 69 years old and is Male; ABD PAIN TECHNIQUE: Axial computed tomography images of the abdomen and pelvis with intravenous contrast. Sagittal an d coronal reformatted images were created and reviewed. This CT exam was performed using one or more of the following dose reduction techniques: automated exposure control, adjustment of the mA a nd/or kV according to patient size, and/or use of iterative reconstruction technique. COMPARISON: CT August 22, 2024 FINDINGS: LUNG BASES: Minimal dependent densities in the lung bases are present. No consolidation. ABDOMEN: LIVER: The liver is enlarged and mildly fatty. GALLBLADDER AND BILE DUCTS: The gallbladder is contracted. PANCREAS: No ductal dilation. No mass. SPLEEN: Unremarkable. ADRENALS: Unremarkable. No mass. KIDNEYS AND URETERS: Exophytic right renal cyst is present. No follow-up imaging is recommended. Kidneys enhance symmetrically. No obstructing renal or ureteral calculus is seen. No hydronephrosis or hydroureter of either kidney. STOMACH AND BOWEL: The stomach is distended with food contents. The small bowel is normal in jay isis. Stool is present throughout the colon. There is no mucosal thickening or evidence of obstruction. PELVIS: APPENDIX: The appendix is normal in caliber without surrounding inflammation. BLADDER: The bladder is well distended. REPRODUCTIVE: Unremarkable as visualized. ABDOMEN and PELVIS: INTRAPERITONEAL SPACE: Unremarkable. No free air. No significant fluid collection. BONES/JOINTS: Multilevel degenerative change of the spine is present. There is no acute fracture. SOFT TISSUES: Evidence of prior right inguinal hernia repair is noted. VASCULATURE: Atherosclerosis of the vasculature is present. The vessels are normal in caliber. Bi lateral iliac stents are in place. No abdominal aortic aneurysm. LYMPH NODES: Unremarkable. No enlarged lymph nodes. IMPRESSION: No acute findings on this contrasted CT of the abdomen and pelvis to explain the patient's symptoms . Electronically signed by: Yeimy Shi MD 10/01/2024 02:27 AM [facility] Due to temporary technical issues with the [employer] reporting system, reports are being theo d by the in-house radiologist without review as a courtesy to ensure prompt reporting the interpreting radiologist is fully responsible for the content of the report. Transcribed Date/Time: 10/01/2024 3:28 AM
[2024-10-01 10:15] VITALS: TEMP 98.2
[2024-10-01 10:16] VITALS: O2SAT 97
[2024-10-01 10:18] VITALS: BP 125/72
== END 2024-10-01 02:52 | disposition home or self-care (01) ==
LOC: ER 22:07
DX: K64.8 Other hemorrhoids (principal); I10 Essential (primary) hypertension; Z95.1 Presence of aortocoronary bypass graft
CPT/HCPCS: 85025; 81001; 36415; 83690; 80053; 74177; 76705; 99284; Q9967

== ENCOUNTER 2024-11-06 12:21 | Emergency (ER) | payer OTHER ==
[2024-11-06] MEDS ORDERED: DIPHENHYDRAMINE 50 MG/ML VIAL ONE (12:53)
[2024-11-06] MEDS ORDERED: KETOROLAC 30 MG/ML INJ ONE (12:53)
[2024-11-06] MEDS ORDERED: METOCLOPRAMIDE 10 MG/2mL INJ ONE (12:54)
[2024-11-06] MEDS ORDERED: NA CHLORIDE 0.9% 1,000 ML ONE (12:54)
[2024-11-06 13:01] LABS: Absolute Basophils 0.1 K/uL (0-0.5); Absolute Lymphocytes (CBC) 1.2 K/uL (0.7-4.9); Absolute Monocytes 0.7 K/uL (0.1-1.3); Absolute Neutrophil 6.2 K/uL (1.8-8.0); Basophils % 0.7 % (0-1.3); Eosinophils % 0.3 % (0-4.4); Hematocrit 40.3 % (39.6-49.0); Hemoglobin 13.4 g/dL (13.6-17.9); Lymphocytes % 14.4 % (15.3-44.8); MCH 31.2 pg (27.0-35.0); MCHC 33.1 g/dL (32.0-36.0); MCV 94.1 fL (80-100); MPV 9.1 fL (7.6-11.3); Monocytes % 8.1 % (3.3-12.3); Neutrophils % 76.5 % (41.7-73.7); Platelets 146 thou/uL (152-406); RBC Red Blood Cell Count 4.28 M/uL (4.33-5.43); Red Cell Distribution Width 15.1 % (12.1-15.2)
[2024-11-06 13:19] LABS: Troponin High Sensitivity 3.5 pg/mL (<58.9)
--- NOTE | 2024-11-06 13:30 | RAD REPORT ---
EXAMINATION: ONE VIEW CHEST XR CLINICAL INDICATION: COUGH TECHNIQUE: Frontal chest projection is submitted. Examination is limited by patient positioning and t echnique. COMPARISON: 08/22/2024 FINDINGS: Hazy opacities in both lung bases likely represents mild infiltrate/infection. The heart is normal in size. No displaced fractures identified.
--- NOTE | 2024-11-06 14:03 | RAD REPORT ---
EXAM: CT brain without contrast HISTORY: DIZZINESS COMPARISON: 07/07/2023 TECHNIQUE: Multiple contiguous axial images were obtained and a CT of the brain without contrast. Sag ittal and coronal reformats were performed. One or more of the following dose reduction techniques were used: Automated exposure control, adjust ment of the mA and/or kV according to patient size, and/or iterative reconstruction. FINDINGS: No evidence of hydrocephalus, intracranial hemorrhage, or extra-axial fluid collection. Mild brain atrophy with mild periventricular and deep white matter chronic microvascular ischemic ch anges present. No evidence of midline shift or areas of brain edema. The calvarium is intact. The visualized paranasal sinuses and mastoid air cells are essentially clear . Mild vertebral atherosclerosis. IMPRESSION: No evidence of acute intracranial abnormality.
--- NOTE | 2024-11-06 14:10 | RAD REPORT ---
EXAMINATION: CTA HEAD CLINICAL INDICATION: DIZZINESS TECHNIQUE: Axial CT images were obtained through the head after intravenous contrast utilizing angiog raphic protocol with 3D post-processing (maximum intensity projection images, volume rendered images and/or shaded surface rendered images). One or more of the following dose reduction technique s were used: Automated exposure control, adjustment of the mA and/or kV according to patient size, and/or iterative reconstruction. Unless otherwise specified, incidental findings do not require dedic ated imaging follow-up. COMPARISON: No prior exam. FINDINGS: ICA: The petrous, cavernous, and supraclinoid segments of the bilateral internal carotid arteries are normal. The ophthalmic artery origins are visualized and normal. The posterior communicating arteries are patent. INDERJIT: Anterior cerebral arteries are normal bilaterally. The anterior communicating artery is patent. MCA: Middle cerebral arteries are normal bilaterally. EEG TECH: Posterior cerebral arteries are normal bilaterally. Vertebrobasilar: The vertebral arteries are patent with moderate atherosclerosis particularly of the right vertebral artery V4 segment. The basilar artery is normal in appearance. 3D images confirm these findings. IMPRESSION: No significant flow abnormality is identified.
--- NOTE | 2024-11-06 14:19 | RAD REPORT ---
EXAMINATION: CTA NECK CLINICAL INDICATION: dizziness TECHNIQUE: Axial CT images were obtained from the aortic arch to the skull base after intravenous con trast utilizing angiographic protocol with 3D post-processing (maximum intensity projection images, volume rendered images and/or shaded surface rendered images). One or more of the following dose redu ction techniques were used: Automated exposure control, adjustment of the mA and/or kV according to patient size, and/or iterative reconstruction. Unless otherwise specified, incidental findings do not require dedicated imaging follow-up. COMPARISON: No prior exam. FINDINGS: AORTA: The imaged aortic arch is normal. Mild atherosclerosis. CCA: Severe atherosclerotic plaquing of the left carotid system. Mild right common carotid artery are plaquing. ICA/ECA: Severe left carotid bulb and left proximal ICA hard plaquing results in severe stenosis guille mated at 95% or greater. Moderate to significant hard plaque right carotid bulb resulting in 70% stenosis. VERTEBRAL: The cervical vertebral arteries are patent. The vertebral arteries are codominant. Moderat e atherosclerosis right V4 segment. SOFT TISSUE: No significant neck soft tissue abnormalities. The visualized lung apices are clear. 3D images confirm these findings. IMPRESSION: Particularly severe left carotid system are plaquing as detailed resulting in 95% plus stenosis of th e left carotid bulb. Right carotid bulb stenosis also present estimated at 70%, caused by a large focal hard plaque. NASCET criteria used. Mild 0-49% stenosis Moderate 50-69% stenosis Severe 70-99% stenosis
--- NOTE | 2024-11-06 14:20 | RAD REPORT ---
EXAMINATION: LUMBAR SPINE MULTIPLE VIEWS CLINICAL INDICATION: Male, 69 years old. low back pain TECHNIQUE: Multiple views of the lumbar spine were obtained. COMPARISON: 08/08/2024 FINDINGS: For purposes of this dictation, it is assumed that there are 5 lumbar type vertebral bodies. ALIGNMENT: Minimal retrolisthesis L2 on 3 and L3 on 4. Minimal dextroscoliosis of lumbar spine. BONES: Vertebral bodies are normal in height. No aggressive osseous lesions. DISCS: Disc thinning with small endplate osteophytes throughout the lumbar levels, most notable at L4 -5 and L5-S1. IMPRESSION: No acute lumbar spine abnormality. [id number] multilevel lumbar degenerative spondylosis greatest inferiorly.
--- NOTE | 2024-11-06 15:38 | EDPHYS ---
Physician Documentation [facility] Name: John Moreno Age: 69 yrs Sex: Male : 1955 Arrival Date: 11/06/2024 Time: 12:21 Bed 2 Private MD: ED Physician Abisai Dominguez HPI: 11/06 13:46 This 69 yrs old Male presents to ER via Wheelchair with complaints of ec2 Dizziness, Back Pain. 13:46 Patient arrives today for evaluation of dizziness and low back pain. Patient reports ec2 has been transient dizziness intermittently for the past several weeks. Patient reports worse with head movement as well as position of movement. Reports no fevers or chills, no nausea or vomiting. Also reports some low back pain, states he has a history of back pain and denies any falls or injuries recently.. Historical: - Allergies: 12:24 NKDA; ll1 - PMHx: 12:24 coronary atherosclerosis; Hyperlipidemia; Hypertension; ll1 - PSHx: 12:24 cardiac bypass; heart cath; I\T\D rectal abscess; stents in legs; Testicular surgery; ll1 - Immunization history:: Adult Immunizations up to date. - Infectious Disease History:: Denies. - Social history:: Smoking status: Patient denies any tobacco usage or history of. ROS: 13:46 Constitutional: as per hpi ec2 Exam: 13:46 Constitutional: GEN: NAD Head: atraumatic Eyes: EOMI Ears: External ears are ec2 normal. CV: regular rate LUNGS: no respiratory distress ABD: non-distended SKIN: no evidence of rashes MSK: no evidence of trauma, no C/T/L-spine TTP or deformities.. Neuro: Cranial nerves II through XII intact, strength intact upper extremities, no pronator drift, normal [id number]. Vital Signs: 12:32 BP 141 / 86; Pulse 81; Resp 17; Temp 97.7(O); Pulse Ox 100% on R/A; Weight 74.84 kg; ll1 Height 5 ft. 4 in. ; Pain 8/10; 13:03 BP 135 / 71; Pulse 94; Resp 18; Pulse Ox 98% on R/A; ld1 14:00 BP 120 / 55; Pulse 77; Resp 18; Pulse Ox 100% on R/A; ld1 14:10 BP 120 / 55; Pulse 87; Resp 18; Pulse Ox 98% on R/A; ld1 15:05 BP 125 / 73; Pulse 85; Pulse Ox 100% on R/A; MAP 88 mmHg; tm6 15:45 BP 130 / 68; Pulse 73; Resp 18; Pulse Ox 99% on R/A; ld1 16:30 BP 139 / 69; Pulse 79; Resp 18; Pulse Ox 99% on R/A; ld1 17:15 BP 152 / 76; Pulse 82; Resp 18; Pulse Ox 100% on R/A; ld1 18:00 BP 141 / 72; Pulse 80; Resp 18; Pulse Ox 100% on R/A; ld1 19:30 BP 154 / 68; Pulse 84; Resp 16; Pulse Ox 100% on R/A; al5 12:32 Body Mass Index 28.32 (74.84 kg, 162.56 cm) ll1 12:32 Pain Scale: Adult ll1 MDM: 12:40 Medical Screening Exam initiated ec2 13:46 Data reviewed: vital signs, nurses notes. ED course: Patient arrives today for low back ec2 pain as well as dizziness. Examination yields MSK and neuro findings as above. Will obtain imaging of the brain, chest x-ray as well as lumbar x-ray. Differential includes processes such as intracranial mass, electrolyte disturbances, anemia, arrhythmia.. 14:16 ED course: EKG independently reviewed and interpreted by me, shows normal sinus rhythm, ec2 rate of 78, no acute ST segment elevations, intervals are nonactionable.. 15:26 ED course: On reassessment patient reports some persistent dizziness. Patient with ec2 negative imaging with patient with reassuring CT scan of the head, CT angio of the head also reassuring, CT neck does show some stenosis, patient without any hemiparesis to indicate ICA stenosis causing immediate pathology at this time. Will admit for further MR to evaluate cerebellar function.. 18:00 ED course: I discussed the case with neurology over at [facility] who ec2 agrees to accept the patient for transfer. Pending hospitalist consultation.. 18:36 ED course: Discussed case with hospitalist at [facility] who agrees to accept ec2 the patient for admission. Currently pending transfer.. 11/06 12:41 Order name: Basic Metabolic Panel; Complete Time: 13:45 ec2 11/06 12:41 Order name: CBC with Diff; Complete Time: 13:45 ec2 11/06 12:41 Order name: Troponin HS; Complete Time: 13:45 ec2 11/06 12:41 Order name: XRAY Chest (1 view); Complete Time: 13:45 ec2 11/06 13:08 Order name: CT Head Brain wo Cont; Complete Time: 14:10 ec2 11/06 13:08 Order name: CT Head Angio; Complete Time: 14:23 ec2 11/06 13:08 Order name: CT Neck Angio; Complete Time: 14:23 ec2 11/06 13:13 Order name: Lumbar Spine (3 Views) XRAY; Complete Time: 14:23 ec2 11/06 12:41 Order name: Cardiac monitoring; Complete Time: 13:05 ec2 11/06 12:41 Order name: EKG - Nurse/Tech; Complete Time: 12:56 ec2 11/06 12:41 Order name: IV Saline Lock; Complete Time: 12:56 ec2 11/06 12:41 Order name: Labs collected and sent; Complete Time: 12:56 ec2 11/06 12:41 Order name: O2 Per Protocol; Complete Time: 12:48 ec2 11/06 12:41 Order name: O2 Sat Monitoring; Complete Time: 12:48 ec2 Administered Medications: 13:05 Drug: NS 0.9% IV 500 ml 500 ml IV at 1 bolus once; to be given as a bolus over 30 ld1 minutes Volume: 500 ml; Route: IV; Rate: 1 bolus; Site: right antecubital; 20:20 Follow up: Response: No adverse reaction; IV Status: Completed infusion; IV Intake: al5 500ml 13:05 Drug: diphenhydrAMINE IVP 25 mg IVP once Route: IVP; Site: right antecubital; ld1 20:19 Follow up: Response: No adverse reaction al5 13:05 Drug: metoCLOPramide IVP 10 mg IVP once; over 1 to 2 minutes Route: IVP; Site: right ld1 antecubital; 20:19 Follow up: Response: No adverse reaction al5 13:05 Drug: Ketorolac IVP 15 mg IVP once Route: IVP; Site: right antecubital; ld1 20:19 Follow up: Response: No adverse reaction al5 Disposition Summary: 11/06/24 17:15 Transfer Ordered Notes: Transfer Location: [facility] ec2 Reason: Higher level of care ec2 Condition: Stable(11/06/24 17:15) ec2 Problem: an ongoing problem(11/06/24 17:15) ec2 Symptoms: have improved(11/06/24 17:15) ec2 Accepting Physician: transferring doc(11/06/24 20:19) al5 Diagnosis - Dizziness and giddiness(11/06/24 17:15) ec2 - Carotid Stenosis >95% L Internal Carotid ec2 - Vertigo ec2 Forms: - Medication Reconciliation Form ec2 - SBAR form ec2 Signatures: Dispatcher [employer] EDMS Shawn Santos RN RN ll1 Abida Plascencia RN RN ld1 Abisai Dominguez MD MD ec2 Adrianne Abdi RN RN al5 Corrections: (The following items were deleted from the chart) 12:41 12:41 Chest Single View+RAD.RAD.BRZ ordered. EDMS EDMS 13:08 13:08 Neck Angio+CT.RAD.BRZ ordered. EDMS EDMS 17:04 15:37 Inpatient Admission ec2 ec2 17:04 15:37 Derik Bell ec2 ec2 17:04 15:37 Telemetry/MedSurg (Inpatient) ec2 ec2 17:04 15:37 Stable ec2 ec2 17:04 15:37 an acute exacerbation ec2 ec2 17:04 15:37 have improved ec2 ec2 17:04 15:37 Standard ec2 ec2 17:04 15:37 ec2 ec2 17:04 15:37 Dizziness and giddiness ec2 ec2 20:19 17:15 transferring doc ec2 al5
--- NOTE | 2024-11-06 15:38 | ER ---
Nurse's Notes [facility] Name: John Moreno Age: 69 yrs Sex: Male : 1955 Arrival Date: 11/06/2024 Time: 12:21 Bed 2 Private MD: Diagnosis: Dizziness and giddiness;Carotid Stenosis >95% L Internal Carotid;Vertigo Presentation: 11/06 12:24 Coronavirus screen: Client denies travel out of the [place] in the last 14 days. At this ll1 time, the client does not indicate any symptoms associated with coronavirus-19. Ebola Screen: Patient denies travel to an Ebola-affected area in the 21 days before illness onset. Initial Sepsis Screen: Does the patient meet any 2 criteria? No. Patient's initial sepsis screen is negative. Does the patient have a suspected source of infection? No. Patient's initial sepsis screen is negative. Risk Assessment: Do you want to hurt yourself or someone else? Patient reports no desire to harm self or others. 12:24 Method Of Arrival: Wheelchair ll1 12:24 Acuity: JEFFRY 3 ll1 12:32 Chief complaint: Patient states: Back pain for 3-4 weeks. States he feels dizzy when ll1 laying flat sometimes. No fever or N/V/D. Onset of symptoms was October 14, 2024. Triage Assessment: 12:24 General: Appears uncomfortable, Behavior is calm, cooperative, appropriate for age. ll1 Pain: Complains of pain in back Quality of pain is described as aching. Neuro: Reports dizziness. Musculoskeletal: Reports pain in back. Historical: - Allergies: 12:24 NKDA; ll1 - PMHx: 12:24 coronary atherosclerosis; Hyperlipidemia; Hypertension; ll1 - PSHx: 12:24 cardiac bypass; heart cath; I\T\D rectal abscess; stents in legs; Testicular surgery; ll1 - Immunization history:: Adult Immunizations up to date. - Infectious Disease History:: Denies. - Social history:: Smoking status: Patient denies any tobacco usage or history of. Screenin:03 [facility] ED Fall Risk Assessment (Adult) History of falling in the last 3 months, ld1 including since admission No falls in past 3 months (0 pts) Confusion or Disorientation No (0 pts) Intoxicated or Sedated No (0 pts) Impaired Gait No (0 pts) Mobility Assist Device Used No (0 pt) Altered Elimination No (0 pt) Score/Fall Risk Level 0 - 2 = Low Risk Oriented to surroundings, Maintained a safe environment, Educated pt \T\ family on fall prevention, incl call for assistance when getting out of bed, Assessed \T\ reinforced patient's understanding of fall precautions, Provided non-skid footwear, Hourly rounding (assess needs \T\ fall precautionary measures) done, Used ambulatory aids as needed (educated on \T\ assisted with), Used gait belt as appropriate. Abuse screen: Denies threats or abuse. Denies injuries from another. Nutritional screening: No deficits noted. Tuberculosis screening: No symptoms or risk factors identified. Assessment: 13:03 General: Appears in no apparent distress. comfortable, Behavior is calm, cooperative, ld1 appropriate for age. Pain: Denies pain. Neuro: Level of Consciousness is awake, alert, obeys commands, Oriented to person, place, time, situation, Appropriate for age Reports dizziness, since 2 days. Cardiovascular: Capillary refill < 3 seconds Patient's skin is warm and dry. Respiratory: Airway is patent Respiratory effort is even, unlabored. GI: Abdomen is round non-distended. : No signs and/or symptoms were reported regarding the genitourinary system. EENT: No signs and/or symptoms were reported regarding the EENT system. Derm: No signs and/or symptoms reported regarding the dermatologic system. Musculoskeletal: No signs and/or symptoms reported regarding the musculoskeletal system. 15:06 Reassessment: Patient appears in no apparent distress at this time. tm6 15:30 Reassessment: Pt reports medication did not change symptoms. Dizziness still present. ld1 16:15 Reassessment: Patient appears in no apparent distress at this time. No changes from ld1 previously documented assessment. Patient and/or family updated on plan of care and expected duration. Pain level reassessed. 18:00 Reassessment: Patient appears in no apparent distress at this time. Patient is alert, ld1 oriented x 3, equal unlabored respirations, skin warm/dry/pink. Patient states symptoms have not improved. 20:08 Reassessment: REPORT GIVEN TO [facility]. jj7 Vital Signs: 12:32 BP 141 / 86; Pulse 81; Resp 17; Temp 97.7(O); Pulse Ox 100% on R/A; Weight 74.84 kg; ll1 Height 5 ft. 4 in. ; Pain 8/10; 13:03 BP 135 / 71; Pulse 94; Resp 18; Pulse Ox 98% on R/A; ld1 14:00 BP 120 / 55; Pulse 77; Resp 18; Pulse Ox 100% on R/A; ld1 14:10 BP 120 / 55; Pulse 87; Resp 18; Pulse Ox 98% on R/A; ld1 15:05 BP 125 / 73; Pulse 85; Pulse Ox 100% on R/A; MAP 88 mmHg; tm6 15:45 BP 130 / 68; Pulse 73; Resp 18; Pulse Ox 99% on R/A; ld1 16:30 BP 139 / 69; Pulse 79; Resp 18; Pulse Ox 99% on R/A; ld1 17:15 BP 152 / 76; Pulse 82; Resp 18; Pulse Ox 100% on R/A; ld1 18:00 BP 141 / 72; Pulse 80; Resp 18; Pulse Ox 100% on R/A; ld1 19:30 BP 154 / 68; Pulse 84; Resp 16; Pulse Ox 100% on R/A; al5 12:32 Body Mass Index 28.32 (74.84 kg, 162.56 cm) ll1 12:32 Pain Scale: Adult ll1 ED Course: 12:23 Patient arrived in ED. mr 12:24 Arm band placed on Patient placed in an exam room, on a stretcher. ll1 12:25 Triage completed. ll1 12:25 Abisai Dominguez MD is Attending Physician. ec2 12:47 Abida Plascencia, CISCO is Primary Nurse. ld1 13:03 Patient has correct armband on for positive identification. Placed in gown. Bed in low ld1 position. Call light in reach. Side rails up X2. assistant to the director on. Pulse ox on. NIBP on. Door closed. Noise minimized. Warm blanket given. 13:03 Inserted saline lock: 20 gauge in right antecubital area, using aseptic technique. ld1 Blood collected. Flushed with 10 mL NS. 13:03 No provider procedures requiring assistance completed. ld1 13:17 XRAY Chest (1 view) In Process Unspecified. EDMS 14:01 CT Head Brain wo Cont In Process Unspecified. EDMS 14:02 CT Head Angio In Process Unspecified. EDMS 14:02 CT Neck Angio In Process Unspecified. EDMS 14:09 Lumbar Spine (3 Views) XRAY In Process Unspecified. EDMS 15:37 Derik Bell MD is Hospitalizing Provider. ec2 17:22 1719 called [facility] no answer. sp 17:28 called [facility] for Transfer no answer. sp 17:38 called [facility] transfer Center talked with Kalen. sp 18:05 1800 MD accepted pt--- transfer center will call back with Hospitalist Provider. sp 18:32 Hospitalist called to talk to Dr. Dominguez. sp 18:38 Hospitalist accepted pt. Kalen will call back with approval and bed. sp 20:18 Provided Education on: need for transfer. al5 20:18 Patient transferred, IV remains in place. al5 Administered Medications: 13:05 Drug: NS 0.9% IV 500 ml 500 ml IV at 1 bolus once; to be given as a bolus over 30 ld1 minutes Volume: 500 ml; Route: IV; Rate: 1 bolus; Site: right antecubital; 20:20 Follow up: Response: No adverse reaction; IV Status: Completed infusion; IV Intake: al5 500ml 13:05 Drug: diphenhydrAMINE IVP 25 mg IVP once Route: IVP; Site: right antecubital; ld1 20:19 Follow up: Response: No adverse reaction al5 13:05 Drug: metoCLOPramide IVP 10 mg IVP once; over 1 to 2 minutes Route: IVP; Site: right ld1 antecubital; 20:19 Follow up: Response: No adverse reaction al5 13:05 Drug: Ketorolac IVP 15 mg IVP once Route: IVP; Site: right antecubital; ld1 20:19 Follow up: Response: No adverse reaction al5 Medication: 13:03 VIS not applicable for this client. ld1 Intake: 20:20 IV: 500ml; Total: 500ml. al5 Outcome: 15:37 Decision to Hospitalize by Provider. ec2 17:15 ER care complete, transfer ordered by . ec2 20:19 Transferred by ground EMS [facility] to [facility], al5 20:19 Condition: stable 20:19 Instructed on the need for transfer, 20:19 Patient left the ED. al5 Signatures: Dispatcher [employer] EDMulu Marrero, [facility], [facility] Reg mr TomShawn, RN RN ll1 Abida Plascencia, RN RN ld1 Robert Moctezuma, RN RN jj7 Abisai Dominguez MD MD ec2 Nereyda Min, RN RN tm6 Adrianne Abdi RN RN al5
--- NOTE | 2024-11-06 17:23 | P.CNS ---
Date of Consult: 11/06/24 Reason for Consult: dizziness Requesting Physician: Abisai Dominguez Chief Complaint: Dizziness History of Present Illness: 61-cbam-tgj-month-old male with a past medical history of CAD, CABG, hyperlipidemia, femoral stents, chronic back pain, GERD presents to the emergency room with dizziness. He reports dizziness started yesterday, is worse with change of position, standing, ambulation. He reports symptoms started yesterday and has been persistent. He reports unsteady gait, swaying to the right that started yesterday. He reports unsteady gait is mildly improved today. Case discussed with Dr. Bell/neurology Dr. Yates, recommend to transfer to vascular surgery services for evaluation because we cannot rule out anterior circulation TIA, patient sees vascular surgeon at [facility] in the [facility] femoral stents placed in 2020. ER evaluation. Lumbar x-ray [id number] multilevel lumbar degenerative spondylosis greatest inferiorly.CTA neck Particularly severe left carotid system are plaquing as detailed resulting in 95% plus stenosis of the left carotid bulb. Right carotid bulb stenosis also present estimated at 70%, caused by a large focal hard plaque. CTA of the head no significant abnormality. Chest x- ray Hazy opacities in both lung bases likely represents mild infiltrate/infection. The heart is normal in size. No displaced fractures identified. - Physical Exam General: Alert, In no apparent distress, Oriented x3 HEENT: Atraumatic, Normocephalic Neck: Supple, No Thyromegaly Respiratory: Clear to auscultation bilaterally, Normal air movement Cardiovascular: Normal pulses, Normal S1 S2 Capillary refill: <2 Seconds Gastrointestinal: Soft and benign, W/out hepatosplenomegaly Musculoskeletal: No clubbing, No swelling Integumentary: No rashes, No significant lesion Neurological: Normal speech, Normal strength at 5/5 x4 extem y Allergies No Known Allergies Allergy (Verified 08/30/22 10:16) Home Medications: Amlodipine Besylate 5 mg PO DAILY 08/30/22 Aspirin [Vazalore] 81 mg PO DAILY 08/30/22 Atorvastatin Calcium [Lipitor] 40 mg PO BEDTIME 08/30/22 Bifidobacterium Infantis [Align] 4 mg PO DAILY 08/30/22 Losartan Potassium 50 mg PO DAILY 08/30/22 Metoprolol Succinate [Toprol Xl*] 25 mg PO DAILY 08/30/22 Mirtazapine 30 mg PO BEDTIME 08/30/22 Pantoprazole Sodium [Protonix] 20 mg PO DAILY 08/30/22 Polyethylene Glycol 3350 [Miralax] 17 gm PO BEDTIME 08/30/22 Psyllium Husk (with Sugar) [Metamucil Packet] 3.4 gm PO BEDTIME 08/30/22 - Past Medical/Surgical History Diabetic: No -: Hypertension -: Hyperlipidemia -: GERD -: Anxiety -: PAD -: Alcohol use -: CAD with CABG -: PAD -: CABG 2020 -: Stents to lower extremities Psychosocial/ Personal History: Patient is - Social History Smoking Status: Former smoker Alcohol use: Yes CD- Drugs: No Caffeine use: No Physical Examination Laboratory Data (last 24 hrs) 11/06/24 11/06/24 12:53 12:53 WBC 8.20 Hgb 13.4 L Hct 40.3 Plt Count 146 L Sodium 136 Potassium 4.0 BUN 10 Creatinine 0.91 Glucose 140 H Conclusions/Impression: Dizziness, unsteady gait Time Spent Managing Pts care (In Minutes): 45
[2024-11-06 21:30] VITALS: TEMP 97.7
[2024-11-06 21:41] VITALS: O2SAT 100
[2024-11-06 21:45] VITALS: BP 154/68
--- NOTE | 2024-11-08 12:45 | EKG ---
Test Date: 2024-11-06 Test Time: 14:13:22 Superintendent Building: [facility] MEASUREMENT RESULTS: Intervals: Rate: 78 AR: 160 QRSD: 100 QT: 364 QTc: 414 [place]: P: 30 AR: 160 QRS: 6 T: 1 INTERPRETIVE STATEMENTS: Normal sinus rhythm Inferior infarct, age undetermined Abnormal ECG Compared to ECG 08/22/2024 20:29:51 Myocardial infarct finding now present Electronically Signed On 11-08-24 12:41:44 PHYSICAL THERAPIST AIDE by Kiko Ward
== END 2024-11-06 20:19 | disposition short-term general hospital (02) ==
LOC: ER 12:21
DX: R42 Dizziness and giddiness (principal); I65.22 Occlusion and stenosis of left carotid artery; I10 Essential (primary) hypertension; E78.5 Hyperlipidemia, unspecified; F41.9 Anxiety disorder, unspecified; K21.9 Gastro-esophageal reflux disease without esophagitis; Z95.1 Presence of aortocoronary bypass graft; Z98.61 Coronary angioplasty status
CPT/HCPCS: 96361; 93005; 85025; 80048; 36415; 84484; 70450; 70496; 70498; 71045; 72100; 96375; 96374; 99285; Q9967; J2765; J1200; J7030

== ENCOUNTER 2024-11-11 21:53 | Emergency (ER) | payer OTHER ==
--- NOTE | 2024-11-11 22:45 | EDPHYS ---
Physician Documentation [facility] Name: John Moreno Age: 69 yrs Sex: Male : 1955 Arrival Date: 11/11/2024 Time: 21:53 Bed 8 Private MD: ED Physician Hema Alvarez HPI: 11/12 00:54 This 69 yrs old Male presents to ER via EMS with complaints of Dizziness. rt 00:54 Patient was recently transferred to [facility] for vertigo, reported internal rt carotid stenosis of 95%. The patient reports that he was found to have 60% blockages, was managed medically and went home yesterday. Patient states that a repeat episode of vertigo, states that he believes that he had a panic attack. States that symptoms have resolved at this time. Denies other acute complaints at this time, symptoms are moderate in severity, no other aggravating or elevating factors.. Historical: - Allergies: 11/11 22:11 NKDA; jj7 - PMHx: 22:11 coronary atherosclerosis; Hyperlipidemia; Hypertension; jj7 - PSHx: 22:11 cardiac bypass; heart cath; I\T\D rectal abscess; stents in legs; Testicular surgery; jj7 - Infectious Disease History:: Denies. - Social history:: Smoking status: Patient denies any tobacco usage or history of. Patient/guardian denies using alcohol, street drugs, IV drugs. - Family history:: not pertinent. ROS: 11/12 00:54 Constitutional: Negative for fever, chills, and weight loss, Cardiovascular: Negative rt for chest pain, palpitations, and edema, Respiratory: Negative for shortness of breath, cough, wheezing, and pleuritic chest pain, Abdomen/GI: Negative for abdominal pain, nausea, vomiting, diarrhea, and constipation, MS/Extremity: Negative for injury and deformity, Skin: Negative for injury, rash, and discoloration, Neuro: Positive for dizziness, Negative for loss of consciousness, Exam: 00:54 Constitutional: This is a well developed, well nourished patient who is awake, alert, rt and in no acute distress. Head/Face: Normocephalic, atraumatic. Chest/axilla: Normal chest wall appearance and motion. Nontender with no deformity. No lesions are appreciated. Cardiovascular: Regular rate and rhythm with a normal S1 and S2. No gallops, murmurs, or rubs. Normal PMI, no JVD. No pulse deficits. Respiratory: Lungs have equal breath sounds bilaterally, clear to auscultation and percussion. No rales, rhonchi or wheezes noted. No increased work of breathing, no retractions or nasal flaring. Abdomen/GI: Soft, non-tender, with normal bowel sounds. No distension or tympany. No guarding or rebound. No evidence of tenderness throughout. MS/ Extremity: Pulses equal, no cyanosis. Neurovascular intact. Full, normal range of motion. 00:54 Neuro: Cranial nerves II through XII intact, strength and sensation intact in upper and lower extremities, no lateral gaze nystagmus, head impulse and test of skew negative, no ataxia on [id number], speech normal, Vital Signs: 11/11 22:07 BP 155 / 76; Pulse 86; Resp 19; Temp 98.3; Pulse Ox 100% ; Height 5 ft. 5 in. ; jj7 22:51 BP 156 / 6; Pulse 92; Resp 17; Pulse Ox 100% on R/A; Pain 0/10; jj7 22:51 Pain Scale: Adult jj7 MDM: 22:07 Medical Screening Exam initiated rt 11/12 00:54 Differential diagnosis: Vertigo, CVA. Data reviewed: vital signs, nurses notes. ED rt course: Had a long discussion with the patient. I informed him that the patient would require a CT scan to be performed. Unfortunately, the CT scans at this hospital were down. I recommended the patient be transferred for CT scan. He states that his symptoms have completely resolved and since he was recently at the other hospital that he does not wish to be transferred. Informed patient of risks of refusal. He understands will follow-up as an outpatient, return precautions discussed. Administered Medications: No medications were administered Disposition Summary: 11/11/24 22:44 Discharge Ordered Notes: Location: Home rt Problem: new rt Symptoms: have improved rt Condition: Stable rt Diagnosis - vertigo rt Followup: rt - With: Private Physician - When: 2 - 3 days - Reason: Followup: rt - With: Emergency Department - When: As needed - Reason: Worsening of condition Discharge Instructions: - Discharge Summary Sheet rt - Vertigo rt Forms: - Medication Reconciliation Form rt - Antibiotic Education rt - Prescription Opioid Use rt - Patient Portal Instructions rt - Leadership Thank You Letter rt Signatures: Robert Moctezuma RN RN jj7 Hema Alvarez MD MD rt Corrections: (The following items were deleted from the chart) 11/11 22:12 22:11 PSHx: Testicular surgery; jj7 jj7
--- NOTE | 2024-11-11 22:45 | ER ---
Nurse's Notes [facility] Name: John Moreno Age: 69 yrs Sex: Male : 1955 Arrival Date: 11/11/2024 Time: 21:53 Bed 8 Private MD: Diagnosis: vertigo Presentation: 11/11 22:07 Chief complaint: Patient states: WAS JUST DISCHARGED FROM [facility] IN [place] jj7 YESTERDAY FOR VERTIGO, STROKE LIKE SYMPTOMS AND CARDIAC BLOCKAGES. TODAY HAVING DIZZINESS AND A PANIC ATTACK. Coronavirus screen: At this time, the client does not indicate any symptoms associated with coronavirus-19. Ebola Screen: No symptoms or risks identified at this time. Initial Sepsis Screen: Does the patient meet any 2 criteria? No. Patient's initial sepsis screen is negative. Does the patient have a suspected source of infection? No. Patient's initial sepsis screen is negative. Risk Assessment: Do you want to hurt yourself or someone else? Patient reports no desire to harm self or others. Onset of symptoms was November 11, 2024. 22:07 Method Of Arrival: EMS: [facility] 7 22:07 Acuity: JEFFRY 3 jj7 Triage Assessment: 22:11 General: Appears in no apparent distress. comfortable, Behavior is calm, cooperative, jj7 appropriate for age. Pain: Denies pain. Neuro: Reports dizziness. Neuro: Reports ANXIETY ATTACK. Cardiovascular: No deficits noted. Respiratory: No deficits noted. GI: No deficits noted. : No deficits noted. Derm: No deficits noted. Musculoskeletal: No deficits noted. Historical: - Allergies: 22:11 NKDA; jj7 - PMHx: 22:11 coronary atherosclerosis; Hyperlipidemia; Hypertension; jj7 - PSHx: 22:11 cardiac bypass; heart cath; I\T\D rectal abscess; stents in legs; Testicular surgery; jj7 - Infectious Disease History:: Denies. - Social history:: Smoking status: Patient denies any tobacco usage or history of. Patient/guardian denies using alcohol, street drugs, IV drugs. - Family history:: not pertinent. Screenin:11 Abuse screen: Denies threats or abuse. Nutritional screening: No deficits noted. jj7 Tuberculosis screening: No symptoms or risk factors identified. 22:52 [facility] ED Fall Risk Assessment (Adult) History of falling in the last 3 months, jj7 including since admission No falls in past 3 months (0 pts) Confusion or Disorientation No (0 pts) Intoxicated or Sedated No (0 pts) Impaired Gait No (0 pts) Mobility Assist Device Used No (0 pt) Altered Elimination Score/Fall Risk Level 0 - 2 = Low Risk Oriented to surroundings, Maintained a safe environment, Educated pt \T\ family on fall prevention, incl call for assistance when getting out of bed, Assessed \T\ reinforced patient's understanding of fall precautions. Assessment: 22:05 Reassessment: DR SALES HAVING DISCUSSION WITH PT ABOUT POSSIBLE TRANSFER TO [address] DUE TO OUR CT SCAN BEING DOWN (UNAVAILABLE). PT DOES NOT WANT TO BE TRANSFERRED TO [place]. STATES HE WILL DISCUSS WITH HIS AND INFORM WHETHER HE WANTS TO PROCEED WITH TREATMENT. 22:11 Reassessment: SEE TRIAGE ASSESSMENT. jj7 22:24 Reassessment: AND DAUGHTER AT BEDSIDE. PT DISCUSSING WITH FAMILY. jj7 Vital Signs: 22:07 BP 155 / 76; Pulse 86; Resp 19; Temp 98.3; Pulse Ox 100% ; Height 5 ft. 5 in. ; jj7 22:51 BP 156 / 6; Pulse 92; Resp 17; Pulse Ox 100% on R/A; Pain 0/10; jj7 22:51 Pain Scale: Adult [facility] ED Course: 21:54 Patient arrived in ED. jj6 22:06 Robert Moctezuma, CISCO is Primary Nurse. jj7 22:07 Hema Sales MD is Attending Physician. rt 22:11 Triage completed. jj7 22:11 Arm band placed on right wrist. Patient placed in an exam room, on a stretcher. jj7 22:11 Patient has correct armband on for positive identification. Bed in low position. Call j7 light in reach. Provided Education on: USE OF CALL SAUCEDO. 22:53 Patient did not have IV access during this emergency room visit. jj7 22:53 No provider procedures requiring assistance completed. jj7 Administered Medications: No medications were administered Medication: 22:11 VIS not applicable for this client. jj7 Outcome: 22:44 Discharge ordered by . rt 22:53 Discharged to home ambulatory, with family, jj7 22:53 Condition: good 22:53 Discharge instructions given to patient, family, Instructed on discharge instructions, follow up and referral plans. Demonstrated understanding of instructions, follow-up care, 22:53 Patient left the ED. jj7 Signatures: Heidy Diasj6 Robert Moctezuma RN RN jj7 Hema Sales MD MD rt Corrections: (The following items were deleted from the chart) 22:12 22:11 PSHx: Testicular surgery; jj7 jj7
[2024-11-11 22:58] VITALS: TEMP 98.3; O2SAT 100
[2024-11-11 23:00] VITALS: BP 156/6
== END 2024-11-11 22:53 | disposition home or self-care (01) ==
LOC: ER 21:53
DX: R42 Dizziness and giddiness (principal); I10 Essential (primary) hypertension; E78.5 Hyperlipidemia, unspecified; I25.10 Atherosclerotic heart disease of native coronary artery without angina pectoris
CPT/HCPCS: 99283

== ENCOUNTER 2025-08-21 18:15 | Emergency (ER) | payer OTHER ==
[2025-08-21 19:35] LABS: Absolute Lymphocytes (CBC) 2.2 K/uL (0.7-4.9); Hematocrit 39.4 % (39.6-49.0); Hemoglobin 13.0 g/dL (13.6-17.9); MCH 31.1 pg (27.0-35.0); MCHC 33.1 g/dL (32.0-36.0); MCV 94.0 fL (80-100); MPV 9.6 fL (7.6-11.3); Nucleated RBC Absolute Count 0.0 (0-0); Nucleated Red Blood Cells % 0.1 % (0-0); RBC Red Blood Cell Count 4.19 M/uL (4.33-5.43); White Blood Count 8.40 thou/uL (4.3-10.9)
[2025-08-21 19:38] LABS: PT Prothrombin Time 12.1 SECONDS (10-13.0); Protime INR 1.07
--- NOTE | 2025-08-21 19:52 | RAD REPORT ---
EXAMINATION: ONE VIEW CHEST XR CLINICAL INDICATION: PAIN TECHNIQUE: Frontal chest projection is submitted. Examination is limited by patient positioning and t echnique. COMPARISON: 11/06/2024 FINDINGS: The lungs are diffusely emphysematous but grossly clear. The heart is upper limit of normal in size. No displaced fractures identified. IMPRESSION: COPD without an acute process suspected.
[2025-08-21 20:04] LABS: ALT/SGPT 19.0 U/L (16-61); AST/SGOT 11.0 U/L (15-37); Albumin 3.9 g/dL (3.4-5.0); Albumin/Globulin Ratio 1.3 (1.1-1.8); Alkaline Phosphatase 88.0 U/L (45-117); Anion Gap 7.2 mEq/L (5.0-15.0); BUN Blood Urea Nitrogen 8.0 mg/dL (7-18); Bilirubin Indirect, Calculated 0.4 mg/dL (0.2-0.8); Globulin 3.1 g/dL (2.3-3.5); Glucose Level 105.0 mg/dL (74-106); Lipase 36.0 U/L (13-75); Magnesium 2.2 mg/dL (1.6-2.4); NT PRO-BNP 55.0 pg/mL (<125); Potassium 4.2 mEq/L (3.5-5.1); Troponin High Sensitivity 4.1 pg/mL (<58.9)
[2025-08-21] MEDS ORDERED: FENTANYL CITR 100 MCG/2 ML ONE (20:41)
[2025-08-21] MEDS ORDERED: ONDANSETRON 4 MG/2 ML VIAL ONE (20:41)
--- NOTE | 2025-08-21 20:58 | RAD REPORT ---
EXAM: CT brain without contrast HISTORY: HEADACHE COMPARISON: 11/06/2024 TECHNIQUE: Multiple contiguous axial images were obtained and a CT of the brain without contrast. Sag ittal and coronal reformats were performed. One or more of the following dose reduction techniques were used: Automated exposure control, adjust ment of the mA and/or kV according to patient size, and/or iterative reconstruction. FINDINGS: No evidence of hydrocephalus, intracranial hemorrhage, or extra-axial fluid collection. The brain is normal in morphology. No evidence of midline shift or areas of brain edema. The calvarium is intact. The visualized paranasal sinuses and mastoid air cells are essentially clear . Right vertebral atherosclerosis. IMPRESSION: No evidence of acute intracranial abnormality.
[2025-08-21] MEDS ORDERED: NA CHLORIDE 0.9% 1,000 ML ONE (21:06)
--- NOTE | 2025-08-21 21:12 | RAD REPORT ---
EXAM: CTA of the chest, abdomen and pelvis HISTORY: Chest pain and back pain DISSECTION COMPARISON: None TECHNIQUE: Multiple contiguous axial images were obtained a CTA of the chest and abdomen with contras t per aortic dissection protocol. This involves 3D reconstructions, MIPs, volume rendered images and/or shaded surface rendering. One or more of the following dose reduction techniques were used: Au tomated exposure control, adjustment of the mA and/or kV according to patient size, and/or iterative reconstruction. Unless otherwise specified, incidental findings do not require dedicated im aging follow-up. Sagittal and coronal 3-D MIP reformats were performed. FINDINGS: PULMONARY ARTERIES: Suboptimally assessed due to bolus timing without gross abnormality. ASCENDING THORACIC AORTA: Normal caliber without evidence of dissection or aneurysmal dilatation. Co ronary calcifications noted. DESCENDING THORACIC AORTA: Normal caliber without evidence of dissection or aneurysmal dilatation. ABDOMINAL AORTA: Normal caliber without evidence of dissection or aneurysmal dilatation. CELIAC TRUNK: Moderate hard plaque at the ostium. SMA: Stent is in place which appears patent. CESAR: Patent RENAL ARTERIES: Moderate hard plaquing bilaterally, ostial in position, greater on the left. MEDIASTINUM: No hilar or mediastinal lymphadenopathy. LUNGS: Mild linear atelectasis in the right lung base. The lungs are otherwise emphysematous but blanca r. PLEURAL SPACE: No pleural effusion or pneumothorax. LIVER: Mild fatty liver.. SPLEEN: Unremarkable. PANCREAS: Unremarkable. KIDNEYS: Benign bilateral renal cysts, no hydronephrosis.. ADRENALS: Unremarkable. BOWEL: Moderate stool is present throughout the colon.. Appendix measures 6 mm. RETROPERITONEUM: No lymphadenopathy. BONES: Degenerative changes in the spine. ADDITIONAL FINDINGS: Small fat-containing umbilical hernia. IMPRESSION: No evidence of thoracic or abdominal aortic aneurysm or dissection.
--- NOTE | 2025-08-21 22:07 | ER ---
Nurse's Notes [facility] Name: John Moreno Age: 69 yrs Sex: Male : 1955 Arrival Date: 08/21/2025 Time: 18:15 Bed 5 Private MD: Diagnosis: Pain in unspecified shoulder;Chest pain, unspecified;Headache Presentation: 08/21 19:05 Chief complaint: Patient states: I have been having a lot of upper back pain that goes kd3 to my shoulder and arms. for the past two months I've been getting strong headaches. It hurts a lot down both of my arms. Coronavirus screen: Vaccine status: Patient reports being unvaccinated. Ebola Screen: No symptoms or risks identified at this time. Initial Sepsis Screen: Does the patient meet any 2 criteria? No. Patient's initial sepsis screen is negative. Does the patient have a suspected source of infection? No. Patient's initial sepsis screen is negative. Risk Assessment: Do you want to hurt yourself or someone else? Patient reports no desire to harm self or others. Onset of symptoms was August 21, 2025. 19:05 Method Of Arrival: Ambulatory kd3 19:05 Acuity: JEFFRY 3 kd3 Triage Assessment: 19:07 General: Appears in no apparent distress. Behavior is calm, cooperative. Pain: kd3 Complains of pain in right trapezius and left trapezius and right mid back and left mid back. Musculoskeletal: Capillary refill < 3 seconds. Historical: - Allergies: 19:07 NKDA; kd3 - PMHx: 19:07 coronary atherosclerosis; Hyperlipidemia; Hypertension; kd3 - PSHx: 19:07 cardiac bypass; I\T\D rectal abscess; heart cath; stents in legs; Testicular surgery; kd3 Testicular surgery; - Immunization history:: Adult Immunizations up to date. - Infectious Disease History:: Denies. - Family history:: not pertinent. - Social history:: Smoking status: Patient denies any tobacco usage or history of. Screenin:35 [facility] ED Fall Risk Assessment (Adult) History of falling in the last 3 months, mf3 including since admission No falls in past 3 months (0 pts) Confusion or Disorientation No (0 pts) Intoxicated or Sedated No (0 pts) Impaired Gait No (0 pts) Mobility Assist Device Used No (0 pt) Altered Elimination No (0 pt) Score/Fall Risk Level 0 - 2 = Low Risk. Abuse screen: Denies threats or abuse. Denies injuries from another. Nutritional screening: No deficits noted. Tuberculosis screening: No symptoms or risk factors identified. Never had TB. Assessment: 20:35 General: Appears in no apparent distress. comfortable, Behavior is calm, cooperative, mf3 appropriate for age. Pain: Complains of pain in back Pain currently is 8 out of 10 on a pain scale. Quality of pain is described as sharp, shooting. Neuro: Level of Consciousness is awake, alert, obeys commands, Oriented to person, place, time, situation. Cardiovascular: Capillary refill < 3 seconds. Respiratory: Airway is patent Trachea midline Respiratory effort is even, unlabored. GI: Abdomen is flat. Derm: Skin is intact, is healthy with good turgor. Vital Signs: 19:05 Weight 72.57 kg; Height 5 ft. 4 in. ; Pain 10/10; kd3 19:22 BP 150 / 81; Pulse 66; Resp 18; Temp 98.1(TE); Pulse Ox 97% on R/A; kd3 21:00 BP 143 / 67; Pulse 73; Resp 16; Pulse Ox 99% on R/A; mf3 22:00 BP 135 / 65; Pulse 69; Resp 19; Pulse Ox 99% ; mf3 23:00 BP 155 / 66; Pulse 68; Resp 19; Pulse Ox 99% ; mf3 19:05 Body Mass Index 27.46 (72.57 kg, 162.56 cm) kd3 19:05 Pain Scale: Adult kd3 Vitals: 20:35 Cardiac Rhythm Assessment Sinus rhythm. mf3 Marjorie Coma Score: 20:35 Eye Response: spontaneous(4). Motor Response: obeys commands(6). Verbal Response: mf3 oriented(5). Total: 15. 23:00 Eye Response: spontaneous(4). Motor Response: obeys commands(6). Verbal Response: mf3 oriented(5). Total: 15. ED Course: 18:19 Patient arrived in ED. im 18:43 Chapo Ruiz MD is Attending Physician. teddy 18:56 Radiology exam delayed due to lab results not completed at this time. (BUN/Creatinine) sj IV insertion attempt and/or patient not having appropriate IV at this time. 19:07 Triage completed. kd3 19:07 Arm band placed on right wrist. kd3 19:22 Attending Physician role handed off by Chapo Ruiz MD tt7 19:22 Piotr Sanchez DO is Attending Physician. tt7 19:22 Inserted saline lock: 20 gauge in right antecubital area, using aseptic technique. kd3 Blood collected. Flushed with 10 mL NS. 19:23 EKG done, by ED staff, reviewed by Piotr Sanchez DO. kd3 19:31 Basic Metabolic Panel Sent. kd3 19:31 CBC with Diff Sent. kd3 19:31 LFT's Sent. kd3 19:31 Magnesium Sent. kd3 19:31 NT PRO-BNP Sent. kd3 19:31 PT-INR Sent. kd3 19:31 Troponin HS Sent. kd3 19:32 Lipase Sent. kd3 19:42 XRAY Chest (1 view) In Process Unspecified. EDMS 20:35 Patient has correct armband on for positive identification. Bed in low position. Call mf3 light in reach. Side rails up X2. Provided Education on: PT EDUCATED ON POC. 20:35 No provider procedures requiring assistance completed. mf3 20:38 Marianne Stoddard, RN is Primary Nurse. mf3 20:49 CT Head Brain wo Cont In Process Unspecified. EDMS 20:49 CT Aorta for Dissection In Process Unspecified. EDMS 23:59 IV discontinued, intact, bleeding controlled, No redness/swelling at site. Pressure mf3 dressing applied. Administered Medications: 20:58 Drug: fentaNYL (PF) IVP 25 mcg IVP once Route: IVP; Site: right antecubital; 3 08/22 00:00 Follow up: Response: No adverse reaction 3 08/21 20:58 Drug: Ondansetron IVP 4 mg IVP once; over 2 minutes Route: IVP; Site: right antecubital;3 08/22 00:00 Follow up: Response: No adverse reaction 3 08/21 21:04 Drug: NS 0.9% IV 500 ml 500 ml IV at 1 bolus once; to be given as a bolus over 30 mf3 minutes Volume: 500 ml; Route: IV; Rate: 1 bolus; Site: right antecubital; 08/22 00:01 Follow up: Response: No adverse reaction; IV Status: Completed infusion mf3 Medication: 10/16 20:35 VIS not applicable for this client. mf3 Outcome: 22:06 Discharge ordered by . tt7 08/22 00:00 Discharged to home ambulatory, with family, 3 Condition: stable Discharge instructions given to patient, Instructed on discharge instructions, follow up and referral plans. Demonstrated understanding of instructions, follow-up care, 00:01 Patient left the ED. 3 Signatures: Dispatcher [employer] EDRI Chapo Ruiz MD MD cha Jones, Susan sj Doucette, Kyli RN RN 3 Divine Cantrell Mimi RN RN mf3 Piotr Sanchez DO DO tt7 Corrections: (The following items were deleted from the chart) 08/21 21:13 21:05 In radiology for Angio Aorta For Dissection+CT.RAD.[facility]. [facility]
--- NOTE | 2025-08-21 22:07 | EDPHYS ---
Physician Documentation [facility] Name: John Moreno Age: 69 yrs Sex: Male : 1955 Arrival Date: 08/21/2025 Time: 18:15 Bed 5 Private MD: ED Physician Piotr Sanchez HPI: 08/21 18:50 This 69 yrs old Male presents to ER via Unassigned with complaints of Back teddy Pain, Headache. 18:50 The patient presents with pain that is acute, with no known mechanism of injury. The teddy symptoms are located in the left scapular area, right scapular area, left subscapular area, right subscapular area, left mid back and right mid back. Onset: The symptoms/episode began/occurred just prior to arrival, today. The pain does not radiate. Associated signs and symptoms: Pertinent positives: headache. The problem was sustained from unknown cause. Modifying factors: The patient symptoms are alleviated by nothing, the patient symptoms are aggravated by nothing. Severity of symptoms: At their worst the symptoms were mild, moderate, in the emergency department the symptoms have improved, mildly. The patient has not experienced similar symptoms in the past. Historical: - Allergies: 19:07 NKDA; kd3 - PMHx: 19:07 coronary atherosclerosis; Hyperlipidemia; Hypertension; kd3 - PSHx: 19:07 cardiac bypass; I\T\D rectal abscess; heart cath; stents in legs; Testicular surgery; kd3 Testicular surgery; - Immunization history:: Adult Immunizations up to date. - Infectious Disease History:: Denies. - Family history:: not pertinent. - Social history:: Smoking status: Patient denies any tobacco usage or history of. ROS: 18:50 Constitutional: Negative for fever, chills, and weight loss, Eyes: Negative for injury, teddy pain, redness, and discharge, ENT: Negative for injury, pain, and discharge, Neck: Negative for injury, pain, and swelling, Cardiovascular: Negative for chest pain, palpitations, and edema, Respiratory: Negative for shortness of breath, cough, wheezing, and pleuritic chest pain, Abdomen/GI: Negative for abdominal pain, nausea, vomiting, diarrhea, and constipation, : Negative for injury, bleeding, discharge, and swelling, MS/Extremity: Negative for injury and deformity, Skin: Negative for injury, rash, and discoloration, Neuro: Negative for headache, weakness, numbness, tingling, and seizure, Psych: Negative for depression, anxiety, suicide ideation, homicidal ideation, and hallucinations, Allergy/Immunology: Negative for hives, rash, and allergies, Endocrine: Negative for neck swelling, polydipsia, polyuria, polyphagia, and marked weight changes, Hematologic/Lymphatic: Negative for swollen nodes, abnormal bleeding, and unusual bruising, 18:50 Back: Positive for pain with movement, of the left trapezius, right trapezius, left scapular area, right scapular area, left subscapular area, right subscapular area and thoracic area, 18:50 MS/extremity: Negative for acute changes, Exam: 18:50 Constitutional: This is a well developed, well nourished patient who is awake, alert, teddy and in no acute distress. Head/Face: Normocephalic, atraumatic. Eyes: Pupils equal round and reactive to light, extra-ocular motions intact. Lids and lashes normal. Conjunctiva and sclera are non-icteric and not injected. Cornea within normal limits. Periorbital areas with no swelling, redness, or edema. ENT: Nares patent. No nasal discharge, no septal abnormalities noted. Tympanic membranes are normal and external auditory canals are clear. Oropharynx with no redness, swelling, or masses, exudates, or evidence of obstruction, uvula midline. Mucous membranes moist. Neck: Trachea midline, no thyromegaly or masses palpated, and no cervical lymphadenopathy. Supple, full range of motion without nuchal rigidity, or vertebral point tenderness. No Meningismus. Chest/axilla: Normal chest wall appearance and motion. Nontender with no deformity. No lesions are appreciated. Cardiovascular: Regular rate and rhythm with a normal S1 and S2. No gallops, murmurs, or rubs. Normal PMI, no JVD. No pulse deficits. Respiratory: Lungs have equal breath sounds bilaterally, clear to auscultation and percussion. No rales, rhonchi or wheezes noted. No increased work of breathing, no retractions or nasal flaring. Abdomen/GI: Soft, non-tender, with normal bowel sounds. No distension or tympany. No guarding or rebound. No evidence of tenderness throughout. Back: No spinal tenderness. No costovertebral tenderness. Full range of motion. Male : Normal genitalia with no discharge or lesions. Skin: Warm, dry with normal turgor. Normal color with no rashes, no lesions, and no evidence of cellulitis. MS/ Extremity: Pulses equal, no cyanosis. Neurovascular intact. Full, normal range of motion., bilateral aka Neuro: Awake and alert, GCS 15, oriented to person, place, time, and situation. Cranial nerves II-XII grossly intact. Motor strength 5/5 in all extremities. Sensory grossly intact. Cerebellar exam normal. Normal gait. Psych: Awake, alert, with orientation to person, place and time. Behavior, mood, and affect are within normal limits. 18:50 Musculoskeletal/extremity: Circulation is intact in all extremities. Sensation intact. Compartment Syndrome exam of affected extremity: is normal. Weight bearing: able to fully bear weight, DVT Exam: No signs of deep vein thrombosis. no pain, no swelling, no tenderness, negative Homans' sign noted on exam, no appreciated bluish discoloration, no erythema, no increased warmth, Vital Signs: 19:05 Weight 72.57 kg; Height 5 ft. 4 in. ; Pain 10/10; kd3 19:22 BP 150 / 81; Pulse 66; Resp 18; Temp 98.1(TE); Pulse Ox 97% on R/A; kd3 21:00 BP 143 / 67; Pulse 73; Resp 16; Pulse Ox 99% on R/A; mf3 22:00 BP 135 / 65; Pulse 69; Resp 19; Pulse Ox 99% ; mf3 23:00 BP 155 / 66; Pulse 68; Resp 19; Pulse Ox 99% ; mf3 19:05 Body Mass Index 27.46 (72.57 kg, 162.56 cm) kd3 19:05 Pain Scale: Adult kd3 [place] Coma Score: 20:35 Eye Response: spontaneous(4). Motor Response: obeys commands(6). Verbal Response: mf3 oriented(5). Total: 15. 23:00 Eye Response: spontaneous(4). Motor Response: obeys commands(6). Verbal Response: mf3 oriented(5). Total: 15. MDM: 18:43 Medical Screening Exam initiated teddy 18:52 Differential diagnosis: Abdominal Aortic Aneurysm Basilar Pneumonia chronic back pain, teddy Fatigue Hydronephrosis Metastatic Disease Neoplasm Obesity Osteoarthritis Pyelonephritis Renal Infarction ruptured disc, Scoliosis sickle cell crisis, sprain, Ureterolithiasis. Data reviewed: vital signs, nurses notes, lab test result(s), EKG, radiologic studies, CT scan, plain films. Consideration of Admission/Observation Escalation of care including admission/observation considered. I considered the following discharge prescriptions or medication management in the emergency department Medications were administered in the Emergency Department. See MAR. Independent interpretation of the following test(s) in the Emergency Department EKG: See my EKG interpretation above. Test considered but Not performed: Ultrasound no 2 d echo. Historians other than the Patient: Family Member: daughter and . Care significantly affected by the following chronic conditions: Hypertension, pvd , headache. Counseling: I had a detailed discussion with the patient and/or guardian regarding the historical points, exam findings, and any diagnostic results supporting the discharge/admit diagnosis, lab results, radiology results. 19:05 ED course: dr de leon to assume care , all labs /ct / exam explained. [facility] 19:45 Data reviewed: vital signs, nurses notes, lab test result(s), EKG, radiologic studies. tt7 ED course: I independently interpreted the patient's EKG performed on 08/21/2025 at 1922. On my interpretation, EKG demonstrates normal sinus rhythm, ventricular rate 65 bpm, normal axis, normal QRS interval, normal ST segments, no STEMI. 23:07 ED course: I took over care of this patient from Dr. Ruiz at shift change, this is tt7 a 69-year-old male who has been having back pain and headache, broad workup was initiated by Dr. Ruiz which included standard cardiac workup with additional CT imaging of the brain without contrast and CT angiogram of the aorta to rule out dissection, overall the patient's laboratory studies are reassuring, no acute abnormalities, chest x-ray without acute findings, nonischemic EKG, CT imaging negative for acute findings, serial troponins negative, patient reassessed after pain medications and pain significantly improved. After completion of the patient's emergency department evaluation, I do not suspect a life-threatening or disabling process. Patient is medically stable and not in need of emergent medical intervention. I had a detailed discussion with the patient regarding the historical points, exam findings, emergency department evaluation, diagnostic results, and the discharge diagnosis. I instructed the patient on outpatient management of their condition. I discussed the need for outpatient follow-up with a primary care physician. I informed the patient on return precautions, including the need to return to the ED if symptoms do not improve, worsen, or if there are any questions or concerns that arise at home. The patient was discharged in stable condition. 08/21 18:50 Order name: Basic Metabolic Panel; Complete Time: 20:06 [facility] 08/21 18:50 Order name: CBC with Diff; Complete Time: 20:06 [facility] 08/21 18:50 Order name: LFT's; Complete Time: 20:06 [facility] 08/21 18:50 Order name: Magnesium; Complete Time: 20:06 [facility] 08/21 18:50 Order name: NT PRO-BNP; Complete Time: 20:06 [facility] 08/21 18:50 Order name: PT-INR; Complete Time: 20:06 [facility] 08/21 18:50 Order name: Troponin HS; Complete Time: 20:06 [facility] 08/21 18:50 Order name: Lipase; Complete Time: 20:06 [facility] 08/21 22:26 Order name: Troponin High Sensitivity; Complete Time: 23:05 [facility] 08/21 18:50 Order name: XRAY Chest (1 view); Complete Time: 20:06 [facility] 08/21 18:50 Order name: CT Head Brain wo Cont; Complete Time: 21:13 [facility] 08/21 18:50 Order name: CT Aorta for Dissection; Complete Time: 21:13 [facility] 08/21 18:50 Order name: Cardiac monitoring; Complete Time: 20:19 [facility] 08/21 18:50 Order name: EKG - Nurse/Tech; Complete Time: 19:23 [facility] 08/21 18:50 Order name: IV Saline Lock; Complete Time: 19:31 [facility] 08/21 18:50 Order name: Labs collected and sent; Complete Time: 19:31 [facility] 08/21 18:50 Order name: O2 Per Protocol; Complete Time: 19:31 [facility] 08/21 18:50 Order name: O2 Sat Monitoring; Complete Time: 20:19 [facility] Administered Medications: 20:58 Drug: fentaNYL (PF) IVP 25 mcg IVP once Route: IVP; Site: right antecubital; [facility] 08/22 00:00 Follow up: Response: No adverse reaction [facility] 08/21 20:58 Drug: Ondansetron IVP 4 mg IVP once; over 2 minutes Route: IVP; Site: right antecubital;mf3 08/22 00:00 Follow up: Response: No adverse reaction 3 08/21 21:04 Drug: NS 0.9% IV 500 ml 500 ml IV at 1 bolus once; to be given as a bolus over 30 mf3 minutes Volume: 500 ml; Route: IV; Rate: 1 bolus; Site: right antecubital; 08/22 00:01 Follow up: Response: No adverse reaction; IV Status: Completed infusion 3 Disposition: 08/21 23:17 Co-signature as Attending Physician, Piotr Sanchez DO. tt7 Disposition Summary: 08/21/25 22:06 Discharge Ordered Notes: Location: Home tt7 Problem: new tt7 Symptoms: have improved tt7 Condition: Stable tt7 Diagnosis - Pain in unspecified shoulder tt7 - Chest pain, unspecified tt7 - Headache tt7 Followup: tt7 - With: Emergency Department - When: As needed - Reason: Followup: tt7 - With: Private Physician - When: 1 - 2 days - Reason: Recheck today's complaints, Re-evaluation by your physician Discharge Instructions: - Discharge Summary Sheet tt7 - Migraine Headache tt7 - Nonspecific Chest Pain, Adult, [id number] tt7 Forms: - Medication Reconciliation Form tt7 - Antibiotic Education tt7 - Prescription Opioid Use tt7 - Patient Portal Instructions tt7 - Leadership Thank You Letter tt7 Signatures: Dispatcher [employer] EDChapo Vigil MD MD cha Doucette, Kyli RN RN kd3 Marianne Stoddard RN [employer] 3 Piotr Sanchez DO DO tt7 Corrections: (The following items were deleted from the chart) 18:51 18:51 Chest Single View+RAD.RAD.BRZ ordered. EDMS EDMS 18:51 18:51 Head Brain Wo Cont+CT.RAD.BRZ ordered. EDMS EDMS 18:51 18:51 Carotid Artery Bilateral+US.RAD.BRZ ordered. EDMS EDMS 18:51 18:51 Angio Aorta For Dissection+CT.RAD.BRZ ordered. EDMS EDMS 21:13 20:48 Angio Aorta For Dissection+CT.RAD.BRZ ordered. EDMS EDMS 22:22 21:16 Troponin High Sensitivity+C.LAB.BRZ ordered. EDMS EDMS 22:22 22:05 Troponin High Sensitivity+C.LAB.BRZ reviewed. tt7 EDMS
[2025-08-22 02:12] VITALS: TEMP 98.1
[2025-08-22 02:13] VITALS: O2SAT 99
[2025-08-22 02:16] VITALS: BP 155/66
== END 2025-08-22 00:01 | disposition home or self-care (01) ==
LOC: ER 18:15
DX: M25.512 Pain in left shoulder (principal); M25.511 Pain in right shoulder; R07.9 Chest pain, unspecified; R51.9 Headache, unspecified; E78.5 Hyperlipidemia, unspecified; I10 Essential (primary) hypertension; Z95.1 Presence of aortocoronary bypass graft
CPT/HCPCS: 96361; 93005; 85025; 80048; 36415; 83735; 85610; 80076; 84484 ×2; 83690; 83880; 70450; 71275; 74175; 71045; 96375; 96374; 99284; Q9967; J3010; J2405; J7030